=== PATIENT | female | born 1955 | race Caucasian/White ===

== ENCOUNTER 2023-05-23 19:33 | Observation (INO) | payer OTHER, SELFPAY ==
[2023-05-23] VITALS (11 sets, daily range): BP systolic 108–139; BP diastolic 58–83; PULSE 81–127; RESP 16–24; TEMP 36.6–36.7; O2SAT 93–96; BMI 35.0; BMI 35.1
--- NOTE | 2023-05-23 19:42 | XR_ITS ---
[address] [address] Patient Name: CONNIE WISE MRN: [id number] date: 1955 Sex: F Assigned Patient Location: ED.MAIN Current Patient Location: ER Accession/Order Number: [id number] Exam Date: 05/23/2023 19:45 Report Date: 05/23/2023 20:22 At the request of: JAGUAR ABARCA Procedure: XR chest 1V EXAMINATION: XR chest 1V, , 05/23/2023 7:45 PM EDT INDICATION: rapid atrial fibrillation HISTORY: Ordering Provider Reason for Exam: rapid atrial fibrillation Technologist Note: Additional: COMPARISON: None. TECHNIQUE: Chest x-ray: One view. FINDINGS: No pneumothorax, pleural effusion or focal airspace consolidation. Heart is normal in size. Bony thorax is unremarkable. IMPRESSION: No acute cardiopulmonary process. Electronically authenticated by: DOMINGO NAIR Date: 05/23/2023 20:22
--- NOTE | 2023-05-23 19:42 | ECG_ITS ---
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
--- NOTE | 2023-05-23 19:52 | ED.ARRPALP1 ---
HPI - Arrhythmia/Palpitations General Chief Complaint: Arrhythmia/Palpitations Stated Complaint: CHEST PAIN Time Seen by Provider: 05/23/23 19:42 Source: patient Mode of arrival: walk-in Limitations: no limitations History of Present Illness HPI narrative: patient developed sweating, fast heart rate and fluttering sensation in her chest this evening just after eating dinner. She denied any dizziness or near syncope. No chest pressure or tightness. No shortness of breath. No prior history of diagnosed atrial fibrillation but she said that Dr Valencia told her that she might have been in AFib after she got palpitations after drinking coffee about a year ago. They had resolved and she had a normal EKG by the time he saw her in the office. She denied any vomiting, diarrhea, fluid loss, alcohol use but she did admit to having what she thought was caffeinated coffee despite asking for decaf this morning with breakfast. Related Data Home Medications Medication Instructions Recorded Confirmed metformin 500 mg tablet 500 mg PO BID 05/23/23 05/23/23 pantoprazole 40 mg tablet,delayed 40 mg PO DAILY PRN stomach upset 05/23/23 05/23/23 release ramipril 10 mg capsule 10 mg PO DAILY 05/23/23 05/23/23 semaglutide 0.25 mg or 0.5 mg (2 0.25 mg subcut .weekly 05/23/23 05/23/23 mg/1.5 mL) subcutaneous pen injector (Ozempic) simvastatin 20 mg tablet 20 mg PO DAILY 05/23/23 05/23/23 venlafaxine 75 mg capsule,extended 75 mg PO DAILY 05/23/23 05/23/23 release 24 hr Allergies Allergy/AdvReac Type Severity Reaction Status Date / Time Sulfa (Sulfonamide AdvReac Mild Verified 05/23/23 19:48 Antibiotics) [facility], [facility] Social History Smoking status: Never smoker Exam Narrative Exam Narrative: Nurses notes and vital signs reviewed and patient is not hypoxic. afebrile General: Well-appearing and in no apparent distress. Skin: Warm, dry, no pallor noted. Head: Normocephalic, atraumatic. Eye: Pupils are equal, round and EOMI. No scleral icterus. Ears, Nose, Mouth, and Throat: Oral mucosa is moist Cardiovascular: Rapid and irregular pulse without murmur, gallop or rub. Respiratory: No accessory muscle use or respiratory distress. Lungs are clear to auscultation, no wheezing, rales or rhonchi Musculoskeletal: normal ROM, no calf or popliteal tenderness, no lower extremity edema/swelling GI: Abdomen is soft, non-distended. Normal bowel sounds. No tenderness to palpation. No rebound, guarding, or rigidity noted. Neurological: A&O x4. No cranial nerve dysfunction observed. No truncal ataxia. Moves all extremities. Sensation intact. Psychiatric: Cooperative and interactive. Normal mood and affect. Constitutional Vital Signs - 24 hr 05/23/23 19:39 Temperature 97.9 F Pulse Rate [Monitor] 127 H Respiratory Rate 16 Blood Pressure [Right Arm] 139/83 H Pulse Oximetry 96 Oxygen Delivery Method Room Air Course Vital Signs Vital signs: Vital Signs Temperature 97.9 F 05/23/23 19:39 Pulse Rate 127 H 05/23/23 19:39 Respiratory Rate 16 05/23/23 19:39 Blood Pressure 139/83 H 05/23/23 19:39 Pulse Oximetry 96 05/23/23 19:39 Oxygen Delivery Method Room Air 05/23/23 19:39 Temperature 97.9 F 05/23/23 19:39 Pulse Rate 127 H 05/23/23 19:39 Respiratory Rate 16 05/23/23 19:39 Blood Pressure 139/83 H 05/23/23 19:39 Pulse Oximetry 96 05/23/23 19:39 Oxygen Delivery Method Room Air 05/23/23 19:39 MDM - Arrhythmia/Palpitations MDM Narrative Medical decision making narrative: Patient was placed on cardiac care unit nurse and EKG obtained. Blood drawn and sent for evaluation. patient found to be in rapid atrial fibrillation - this is new onset for her. She was ordered to receive IV Cardizem dose of 20 mg. Chest x-ray ordered. after receiving IV Cardizem, her rate slowed. Repeat EKG shows rate-controlled atrial fibrillation at 92 bpm with some nonspecific T-wave changes but no ST elevation or deep ischemic changes. CBC normal. BMP unremarkable. Troponin negative, BNP elevated at 1287. Patient ordered to receive SQ Lovenox. The plan is for the patient to be admitted to the hospital to med/surgical floor with telemetry for further monitoring and testing. She will either go to the floor with telemetry if she is rate controlled or to the ICU on a drip if we cannot control her rate in the emergency department. Inpatient admission for new onset Atrial Fibrillation. Call placed to discuss admission with the microarray operations vice president Telehospitalist, Dr Whyte. He agreed to have the patient admitted to Dr Valencia's service. Lab Data Attestation: I reviewed the patient's lab results. Labs: Lab Results 05/23/23 05/23/23 Range/Units 18:45 18:48 WBC 8.3 (4.0-11.0) 10^3/uL RBC 4.72 (4.20-5.40) 10^6/uL Hgb 13.3 (12.0-16.0) g/dL Hct 41.5 (36.0-48.0) % MCV 87.9 (81.0-99.0) fL MCH 28.2 (26.7-34.0) pg MCHC 32.0 (29.9-35.2) g/dL RDW 14.8 (11.0-15.0) % Plt Count 192 (150-450) 10^3/uL MPV 10.4 (9.5-13.5) fL Neut % (Auto) 59.8 (43.0-75.0) % Lymph % (Auto) 29.5 (20.5-60.0) % [place] % (Auto) 8.1 (1.7-12.0) % Eos % (Auto) 1.7 (0.9-7.0) % Baso % (Auto) 0.4 (0.2-2.0) % Neut # (Auto) 4.9 (1.4-6.5) 10^3/uL Lymph # (Auto) 2.4 (1.2-3.8) 10^3/uL [place] # (Auto) 0.7 (0.3-0.8) 10^3/uL Eos # (Auto) 0.1 (0.0-0.7) 10^3/uL Baso # (Auto) 0.0 (0.0-0.1) 10^3/uL Abs Immat Gran (auto) 0.04 H (0.00-0.03) 10^3/uL Imm/Tot Granulo (auto) 0.5 (0.0-0.5) % PT 10.7 (9.0-11.6) sec INR 1.01 APTT 29.9 (22.3-36.2) sec Sodium 141 (136-145) mmol/L Potassium 3.7 (3.5-5.1) mmol/L Chloride 105 (98-107) mmol/L Carbon Dioxide 24.8 (21.0-32.0) mmol/L Anion Gap 14.9 BUN 26.0 H (7.0-18.0) mg/dL Creatinine 1.00 (0.55-1.02) mg/dL Est GFR ( Amer) >60 (>=60) Est GFR (Non-Af Amer) 55 L (>=60) BUN/Creatinine Ratio 26.0 Glucose 298 H (74-106) mg/dL Calcium 9.7 (8.5-10.1) mg/dL Troponin I High Sens 11.2 (4.0-51.3) pg/mL NT-Pro-B Natriuret Pep 1287.0 H* (<=900.0) pg/mL Imaging Data Chest x-ray: Radiologist's impression: Patient Name: CONNIE WISE MRN: [id number] date: 1955 Sex: F Assigned Patient Location: ED.MAIN Current Patient Location: ER Accession/Order Number: [id number] Exam Date: 05/23/2023 19:45 Report Date: 05/23/2023 20:22 At the request of: JAGUAR ABARCA Procedure: XR chest 1V EXAMINATION: XR chest 1V, , 05/23/2023 7:45 PM EDT INDICATION: rapid atrial fibrillation HISTORY: Ordering Provider Reason for Exam: rapid atrial fibrillation Technologist Note: Additional: COMPARISON: None. TECHNIQUE: Chest x-ray: One view. FINDINGS: No pneumothorax, pleural effusion or focal airspace consolidation. Heart is normal in size. Bony thorax is unremarkable. IMPRESSION: No acute cardiopulmonary process. Electronically authenticated by: DOMINGO NAIR Date: 05/23/2023 20:22 ECG Data Interpretation: EKG #1 interpretation: Emergency Department physician interpretation. rapid atrial fibrillation at 138bpm. Non-specific ST changes without ST segment elevation or deep depression. EKG #2 post-cardizem interpretation: Emergency Department physician interpretation. rate controlled atrial fibrillation at 92bpm. Normal axis, Non-specific ST changes without ST segment elevation or deep depression. Critical Care Time Critical Care Time Critical Care Time: Yes Total Critical Care Time: 45 Attestation: no attestation needed Discharge Plan Discharge Chief Complaint: Arrhythmia/Palpitations Clinical Impression: Atrial fibrillation, new onset, Atrial fibrillation with rapid ventricular response Patient Disposition: Admitted As Inpatient Time of Disposition Decision: 20:01
[2023-05-23 19:56] LABS: Basophils Percent Auto 0.4 % (0.2-2.0); Eosinophils Absolute Auto 0.1 10^3/uL (0.0-0.7); Eosinophils Percent Auto 1.7 % (0.9-7.0); Hematocrit 41.5 % (36.0-48.0); Hemoglobin 13.3 g/dL (12.0-16.0); Immature Granulocytes Abs Auto 0.04 10^3/uL (0.00-0.03); Immature Granulocytes Pct Auto 0.5 % (0.0-0.5); Lymphocytes Absolute Auto 2.4 10^3/uL (1.2-3.8); Lymphocytes Percent Auto 29.5 % (20.5-60.0); Mean Corpuscular Hemoglobin 28.2 pg (26.7-34.0); Mean Corpuscular Volume 87.9 fL (81.0-99.0); Mean Platelet Volume 10.4 fL (9.5-13.5); Monocytes Absolute Auto 0.7 10^3/uL (0.3-0.8); Monocytes Percent Auto 8.1 % (1.7-12.0); Neutrophils Absolute Auto 4.9 10^3/uL (1.4-6.5); Neutrophils Percent Auto 59.8 % (43.0-75.0); Platelet Count 192 10^3/uL (150-450); Red Blood Count 4.72 10^6/uL (4.20-5.40); Red Cell Distribution Width 14.8 % (11.0-15.0); White Blood Count 8.3 10^3/uL (4.0-11.0)
[2023-05-23] MEDS: 0.9 % SODIUM CHLORIDE 1,000 ML 1000 ML (20:00)
[2023-05-23] MEDS: DILTIAZEM HCL 25 MG/5 ML VIAL 20 MG IV (20:00)
[2023-05-23 20:12] LABS: INR 1.01; Partial Thromboplastin Time 29.9 sec (22.3-36.2); Prothrombin Time 10.7 sec (9.0-11.6)
[2023-05-23 20:20] LABS: Anion Gap 14.9; Calcium 9.7 mg/dL (8.5-10.1); Carbon Dioxide 24.8 mmol/L (21.0-32.0); Chloride 105 mmol/L (98-107); Estimated GFR (African America >60 (>=60); Estimated GFR (Non-African Ame 55 (>=60); Glucose 298 mg/dL (74-106); Potassium 3.7 mmol/L (3.5-5.1); Sodium 141 mmol/L (136-145); Troponin I High Sensitivity 11.2 pg/mL (4.0-51.3)
--- NOTE | 2023-05-23 20:23 | ECG_ITS ---
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
[2023-05-23] MEDS: ENOXAPARIN SODIUM 100 MG/ML SYRINGE 98.43 MG SUBQ (21:02)
[2023-05-24] VITALS (18 sets, daily range): BP systolic 99–116; BP diastolic 54–66; PULSE 58–96; RESP 14–18; TEMP 36.6–36.9; O2SAT 90–97; BMI 35.1
--- NOTE | 2023-05-24 00:57 | CA_ITS ---
Patient: CONNIE WISE Exam Date: 05/25/2023 : 1955 Gender:F Ordering : DR Harry Valencia . Admission #: [id number] Family : Order #: [id number] CLICK HERE TO VIEW EXAM ECHOCARDIOGRAM REPORT PROCEDURE: CA ECHO DOPPLER COMPLETE INDICATIONS: AFIb COMPARISON: None. DESCRIPTION: COMPLETE ECHOCARDIOGRAM Real-time transthoracic echocardiography with 2D, M-mode, spectral and color flow Doppler performed. QUALITY: Technical quality was good. LEFT VENTRICLE: Normal chamber size. Borderline left ventricular hypertrophy. LV EF: Global left ventricular systolic function is normal. Visual estimation of left ventricular ejection fraction is 65% DIASTOLIC: Diastolic function is indeterminate. ATRIAL SEPTUM: Inadequately seen. LEFT ATRIUM: Severe dilatation. RIGHT ATRIUM: Mild dilatation. RIGHT VENTRICLE: Normal chamber size. Normal right ventricular systolic function. TRICUSPID VALVE: Normal mobility and thickness. No stenosis with mild regurgitation. Mild pulmonary hypertension. RVSP 39mmHg MITRAL VALVE: Normal mobility and thickness. No evidence of mitral valve stenosis. There is no mitral annular calcification. Mild to moderate mitral regurgitation. AORTIC VALVE: Normal trileaflet appearance. Mildly calcified aortic valve. Normal leaflet mobility. No evidence of aortic valve stenosis. Mild aortic regurgitation. AORTIC ROOT: Normal diameter and appearance. PULMONIC VALVE: Normal thickness and mobility. No stenosis. Trivial regurgitation. PERICARDIUM: No evidence of pericardial effusion. IVC: Collapses with inspirations. Normal size. CONCLUSION: 1. Global left ventricular systolic function is normal; visually estimated ejection fraction is 60 to 65% 2. Borderline left ventricular hypertrophy 3. Diastolic function is indeterminant 4. The right ventricle is normal in size and systolic function 5. Biatrial enlargement 6. Mild tricuspid regurgitation 7. Mildly elevated right ventricular systolic pressure; RVSP 39 mmHg 8. Mild to moderate mitral regurgitation 9. Mild aortic valve regurgitation Adult Echocardiography Procedure Report Left Ventricle LVEDD (3.7 - 5.6 cm): 4.33 cm LVESD (2.2 - 4.0 cm): 2.86 cm LVIVS thickness (0.6 - 1.2 cm): 1.24 cm LVPW thickness (0.5 - 1.0 cm): 0.94 cm e': 0.10 m/s E - e': 11.40 LVOT Max Gradient: 4.06 mm[Hg] LVOT Area (cm2): 1.01 m/s Peak Velocity (LVOT): 1.01 m/s Mean Velocity (LVOT): 0.70 m/s LVOT Diameter 2.12 cm Left Ventricular Ejection Fraction: 72.03 % Left Atrium LA Volume Index (2D A2C): 53.54 ml/m2 Left Atrium Systolic Dimension: 3.98 cm Mitral Valve MV E to A Ratio: 1.43 Mitral Valve A-Wave Peak Velocity: 0.81 m/s Mitral Valve E-Wave Peak Velocity: 1.15 m/s Right Ventricle RV Internal Diastolic Dimension: 2.98 cm Aorta AO Root Diam: 3.57 cm Ascending Ao Diam: 3.01 cm Aortic Valve AoV Area (Peak Darryl): 2.31 cm2, 2.31 cm2 AoV Area (VTI): 2.51 cm2, 2.51 cm2 Deceleration [place]: 1.30 m/s2 Pressure Half-Time: 669.57 ms Peak Velocity(Antegrade Flow): 1.54 m/s Peak Gradient(Antegrade Flow): 9.47 mm[Hg] Mean Velocity(Antegrade Flow): 1.02 m/s Mean Gradient(Antegrade Flow): 4.81 mm[Hg] Velocity Time Integral: 35.80 cm Tricuspid Valve Peak Velocity (Regurgitant Flow): 2.49 m/s, 2.53 m/s, 2.96 m/s Pulmonic Valve Peak Velocity: 0.87 m/s Peak Gradient: 2.55 mm[Hg], 3.59 mm[Hg] Right Atrium Right Atrium Systolic Pressure: 68.45 ml, 68.45 ml Dictated by: Monique Blair M.D. on 05/26/2023 at 12:57 Approved by: Monique Blair M.D. on 05/26/2023 at 13:00
--- NOTE | 2023-05-24 01:03 | P.PN_ITS ---
Progress Note: Subjective Subjective Interval history: CC: Palpitations HPI: This is a 67 years old female who presents with above complaints. Patient's past medical history significant for diabetes, dyslipidemia, hypertension. Patient reports of ongoing feeling of palpitations, usually related to consumption of caffeinated drinks. She has been feeling palpitations since yesterday. On presentation to emergency room patient found to be in atrial fibrillation with rapid ventricular response. She received IV dose of diltiazem with appropriate rate control. Does not feel any palpitations at present. Patient denies any chest pain or dyspnea on exertion. Exam Narrative Exam Narrative: Physical Exam: Not in distress, pleasant, lucid, cooperative, Head - atraumatic, eyes - pupils equal, round, reactive to light, extra ocular movement intact, MMM Neck - supple, thyroid not enlarged, LN not palpated Lungs - clear to auscultation, no dullness on percussion CVS - heart sounds S1, S2, no additional murmurs gallop, irregularly irregular rate and rhythm, tachycardia Gastrointestinal?abdomen is soft, non-tender, non-distended, no organomegaly, positive bowel sounds Extremities no clubbing, cyanosis or edema Neurological?cranial nerve II?XII grossly intact, no meningeal signs, no cerebellar signs, no sensory deficit Musculoskeletal - joints, no effusions, ROM preserved Dermatological - the skin dry, warm, no rashes Psychiatric?patient is AAO X3, patient has normal affect Constitutional Vital Signs - 24 hr 05/23/23 19:39 05/23/23 19:40 05/23/23 20:00 Temperature 97.9 F Pulse Rate 100 H 91 H Pulse Rate [Monitor] 127 H Respiratory Rate 16 22 18 Blood Pressure 139/83 H 113/58 L Blood Pressure [Left Arm] Blood Pressure [Right Arm] 139/83 H Pulse Oximetry 96 94 L 93 L Oxygen Delivery Method Room Air 05/23/23 20:15 05/23/23 20:31 05/23/23 20:31 Temperature Pulse Rate 87 81 Pulse Rate [Monitor] Respiratory Rate 24 20 Blood Pressure 108/63 139/60 H 139/60 H Blood Pressure [Left Arm] Blood Pressure [Right Arm] Pulse Oximetry 95 94 L Oxygen Delivery Method 05/23/23 20:49 05/23/23 20:50 05/23/23 21:00 Temperature Pulse Rate 102 H 87 Pulse Rate [Monitor] Respiratory Rate 16 24 Blood Pressure 137/73 H Blood Pressure [Left Arm] Blood Pressure [Right Arm] Pulse Oximetry 96 96 Oxygen Delivery Method 05/23/23 21:00 05/23/23 21:10 05/23/23 21:34 Temperature 98.1 F Pulse Rate 86 81 88 Pulse Rate [Monitor] Respiratory Rate 19 21 Blood Pressure Blood Pressure [Left Arm] 118/72 Blood Pressure [Right Arm] Pulse Oximetry 96 95 Oxygen Delivery Method Room Air 05/23/23 22:00 05/23/23 21:34 05/23/23 21:34 Temperature 98.1 F 98.1 F Pulse Rate 88 88 Pulse Rate [Monitor] Respiratory Rate 20 20 18 Blood Pressure Blood Pressure [Left Arm] 118/72 118/72 Blood Pressure [Right Arm] Pulse Oximetry 95 95 95 Oxygen Delivery Method Room Air Room Air Room Air 05/23/23 21:34 Temperature Pulse Rate Pulse Rate [Monitor] Respiratory Rate 18 Blood Pressure Blood Pressure [Left Arm] Blood Pressure [Right Arm] Pulse Oximetry Oxygen Delivery Method Progress Note: Objective Labs Labs: Short CBC 05/23/23 Range/Units 18:45 WBC 8.3 (4.0-11.0) 10^3/uL Hgb 13.3 (12.0-16.0) g/dL Hct 41.5 (36.0-48.0) % Plt Count 192 (150-450) 10^3/uL BMP 05/23/23 18:48 Sodium 141 Potassium 3.7 Chloride 105 Carbon Dioxide 24.8 BUN 26.0 H Creatinine 1.00 Glucose 298 H Calcium 9.7 Progress Note: A&P Assessment and Plan (1) Atrial fibrillation with rapid ventricular response: Assessment and Plan: Patient remains hemodynamically stable Monitor on telemetry Continue with calcium CHANNEL blockers or beta-blockers Started on full dose of low molecular weight heparin Echocardiogram ordered Serial cardiac enzymes ordered to rule out acute coronary event TSH ordered Cardiology consult in the morning Patient advised to avoid use of caffeinated drinks (2) Diabetes: Assessment and Plan: DM- continue with ADA diet - hold off oral hypoglycemic agents while in the hospital to avoid hypoglycemic episodes - frequent accuchecks (TID AC + HS) - will provide coverage with long acting insulin as well as short acting insulin with meals - adjust as needed - hypoglycemia protocol in place (3) Hypertension: Assessment and Plan: Blood pressure appears to be well controlled. Resume home regiment (4) Dyslipidemia: Assessment and Plan: Very fine continue home dose of statin Telemedicine Attestation Telemedicine Attestation I conducted this encounter from [place][] via secure live, [id number] video conference with the patient, located at [facility] with [atrial fibrillation with rapid ventricular response]. Prior to the interview, the risks and benefits of telemedicine were discussed with the patient and verbal consent was obtained. As the provider for the telehealth service, I attest that I introduced myself to the patient, provided my credentials, disclosed by location and determined that based on a review of the patient's chart and discussion with members of the patient's treatment team, telemedicine via real-time, 2 way, and interactive audio and video platform is an appropriate and effective means of providing the service. ?The patient and I mutually agree this visit is appropriate for telemedicine. ?[place] ?The encounter took approximately 35 minutes. ?The nurse was present during the entire time and I was able to move the stethoscope in appropriate directions. ?The patient was evaluated at the Hospital ? Portions of this note may be dictated using [employer] voice recognition software. Variances in spelling and vocabulary are possible and unintentional. Not all errors may be caught and/or corrected. Please notify the author if any discrepancies are noted and/or if the meaning of any statement is unclear.? ? Patient verbally consented for treatment via video visit with patient currently located at [facility] and provider located in [place].
[2023-05-24 01:49] LABS: Troponin I High Sensitivity 10.7 pg/mL (4.0-51.3)
[2023-05-24 02:16] LABS: Glucometer 281 mg/dL (74-106)
[2023-05-24] MEDS: INSULIN DETEMIR 300 UNIT/3 ML INSULN.PEN SUBQ (02:20)
[2023-05-24 02:27] LABS: Magnesium 1.4 mg/dL (1.8-2.4); Phosphorus 3.1 mg/dL (2.6-4.7); Thyroid Stimulating Hormone 3.299 uIU/mL (0.358-3.740)
[2023-05-24 05:15] LABS: Troponin I High Sensitivity 9.4 pg/mL (4.0-51.3)
[2023-05-24 07:30] LABS: Troponin I High Sensitivity 10.1 pg/mL (4.0-51.3)
[2023-05-24] MEDS: APIXABAN 5 MG TABLET PO ×2 (08:32→22:10)
[2023-05-24] MEDS: LISINOPRIL 20 MG TABLET 40 MG PO (08:33)
[2023-05-24] MEDS: ASPIRIN 81 MG TAB.CHEW PO (08:33)
[2023-05-24] MEDS: METFORMIN HCL 500 MG TABLET PO ×2 (08:33→16:09)
[2023-05-24] MEDS: ATORVASTATIN CALCIUM 10 MG TABLET PO (08:33)
[2023-05-24] MEDS: VENLAFAXINE HCL ER 75 MG CAPSULE PO (08:34)
[2023-05-24] MEDS: METOPROLOL TARTRATE 25 MG TABLET 50 MG PO ×2 (08:34→22:09)
[2023-05-24] MEDS: OMEPRAZOLE 40 MG CAPSULE.DR PO (08:35)
[2023-05-24] MEDS: LACTATED RINGER'S SOLUTION 1,000 ML 75 ML IV ×2 (09:17→22:09)
[2023-05-24] MEDS: CANAGLIFLOZIN 100 MG TABLET PO (09:17)
--- NOTE | 2023-05-24 11:13 | P.HP_ITS ---
H&P: HPI History of Present Illness Chief complaint: CHEST PAIN New ONSET A-FIB Narrative: Pt presente to thye ER with some BERRY - no chest pain - but sig palitations - has had in the past - did have some caffeine with first episode - thought decaf today but now not sure. In er iwth A-fib RVR - given cardizem with improved rate control, transferred to med surg Pt also states started having some diarhea - about 13 episode - started prior to admission Review of Systems ROS Constitutional Denies: fever or chills Cardiovascular Reports: palpitations; Denies: chest pain, edema or swelling of feet/ankles Respiratory Reports: shortness of breath Neurological Denies: headache Psychiatric Denies: anxiety Endocrine Denies: excessive urination Hematologic/Lymphatic Denies: easy bruising PFSH PFSH Medical History (Updated 05/24/23 @ 17:14 by Harry Valencia MD) Surgical History (Updated 05/23/23 @ 23:36 by Jef Montanez) Family History (Updated 05/23/23 @ 23:40 by Jef Montanez) Grandmother Family history of cancer Father Family history of diabetes mellitus Grandfather Family history of cancer Social History (Updated 05/23/23 @ 23:58 by Jef Montanez) Within the past year, how often did you have a drink containing alcohol: monthly or less Within the past year, how often did you have six or more drinks on one occasion: never Smoking status: Never smoker Non-prescribed substance use: denies use 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 Highest level of school completed/degree received: Bachelor's degree Do you want help with school or training: No Are you now , , , , never or living with a partner: never In a typical week, how many times do you talk on the telephone with family, friends, or neighbors: 3 or more times per week How often do you get together with friends or relatives: once per week How often do you attend alevism or scientology services: 4 or more times per year Do you belong to any clubs or organizations such as alevism groups unions, fraternal or athletic groups, or school groups: yes Total score: 3 Score interpretation: A score of greater than or equal to 2 indicates the lowest level of social isolation. Little interest or pleasure in doing things: not at all Feeling down, depressed, or hopeless: not at all Feel stressed/tense/nervous/anxious/difficulty sleeping: not at all Life stressors: recent of family or friend Due to disability, difficulty making decisions: No Meds Home Medications and Allergies Home Medications Medication Instructions Recorded Confirmed Type metformin 500 mg tablet 500 mg PO BID 05/23/23 05/23/23 History pantoprazole 40 mg tablet,delayed 40 mg PO DAILY PRN stomach upset 05/23/23 05/23/23 History release ramipril 10 mg capsule 10 mg PO DAILY 05/23/23 05/23/23 History semaglutide 0.25 mg or 0.5 mg (2 0.25 mg subcut .weekly 05/23/23 05/23/23 History mg/1.5 mL) subcutaneous pen injector ([employer]) simvastatin 20 mg tablet 20 mg PO DAILY 05/23/23 05/23/23 History venlafaxine 75 mg capsule,extended 75 mg PO DAILY 05/23/23 05/23/23 History release 24 hr Allergies Allergy/AdvReac Type Severity Reaction Status Date / Time Sulfa (Sulfonamide AdvReac Mild Verified 05/23/23 19:48 Antibiotics) Exam Constitutional Vital Signs - 24 hr 05/23/23 19:39 05/23/23 19:40 05/23/23 20:00 Temperature 97.9 F Pulse Rate 100 H 91 H Pulse Rate [Monitor] 127 H Respiratory Rate 16 22 18 Blood Pressure 139/83 H 113/58 L Blood Pressure [Left Arm] Blood Pressure [Right Arm] 139/83 H Pulse Oximetry 96 94 L 93 L Oxygen Delivery Method Room Air 05/23/23 20:15 05/23/23 20:31 05/23/23 20:31 Temperature Pulse Rate 87 81 Pulse Rate [Monitor] Respiratory Rate 24 20 Blood Pressure 108/63 139/60 H 139/60 H Blood Pressure [Left Arm] Blood Pressure [Right Arm] Pulse Oximetry 95 94 L Oxygen Delivery Method 05/23/23 20:49 05/23/23 20:50 05/23/23 21:00 Temperature Pulse Rate 102 H 87 Pulse Rate [Monitor] Respiratory Rate 16 24 Blood Pressure 137/73 H Blood Pressure [Left Arm] Blood Pressure [Right Arm] Pulse Oximetry 96 96 Oxygen Delivery Method 05/23/23 21:00 05/23/23 21:10 05/23/23 21:34 Temperature 98.1 F Pulse Rate 86 81 88 Pulse Rate [Monitor] Respiratory Rate 19 21 Blood Pressure Blood Pressure [Left Arm] 118/72 Blood Pressure [Right Arm] Pulse Oximetry 96 95 Oxygen Delivery Method Room Air 05/23/23 22:00 05/23/23 21:34 05/23/23 21:34 Temperature 98.1 F 98.1 F Pulse Rate 88 88 Pulse Rate [Monitor] Respiratory Rate 20 20 18 Blood Pressure Blood Pressure [Left Arm] 118/72 118/72 Blood Pressure [Right Arm] Pulse Oximetry 95 95 95 Oxygen Delivery Method Room Air Room Air Room Air 05/23/23 21:34 05/24/23 01:05 05/24/23 01:54 Temperature Pulse Rate 96 H 81 Pulse Rate [Monitor] Respiratory Rate 18 Blood Pressure Blood Pressure [Left Arm] Blood Pressure [Right Arm] Pulse Oximetry Oxygen Delivery Method 05/24/23 03:54 05/24/23 04:48 05/24/23 05:57 Temperature 98.4 F Pulse Rate 79 79 77 Pulse Rate [Monitor] Respiratory Rate 18 Blood Pressure Blood Pressure [Left Arm] 116/65 Blood Pressure [Right Arm] Pulse Oximetry 90 L Oxygen Delivery Method Room Air 05/24/23 07:58 05/24/23 09:56 Temperature Pulse Rate 78 61 Pulse Rate [Monitor] Respiratory Rate Blood Pressure Blood Pressure [Left Arm] Blood Pressure [Right Arm] Pulse Oximetry Oxygen Delivery Method Documenting provider has reviewed patient's vital signs: yes Common normals: no apparent distress Exam limitations: no altered mental status and no behavioral limitations General appearance: cooperative and comfortable Nutritional appearance: overweight HENKS Common normals: normocephalic Chest Common normals: inspection of chest normal Respiratory Common normals: normal respiratory effort, no retractions and no use of accessory muscles Cardio Common normals: no JVD; irregular rate and irregular rhythm Rate: tachycardic Rhythm: abnormal rhythm GI Common normals: Normal to inspection, nondistended, normoactive bowel sounds present Results Labs Labs: Short CBC 05/23/23 Range/Units 18:45 WBC 8.3 (4.0-11.0) 10^3/uL Hgb 13.3 (12.0-16.0) g/dL Hct 41.5 (36.0-48.0) % Plt Count 192 (150-450) 10^3/uL BMP 05/23/23 18:48 Sodium 141 Potassium 3.7 Chloride 105 Carbon Dioxide 24.8 BUN 26.0 H Creatinine 1.00 Glucose 298 H Calcium 9.7 Assessment and Plan Assessment and Plan (1) Atrial fibrillation with rapid ventricular response: (2) Diabetes: (3) Hypertension: (4) Dyslipidemia: (5) Atrial fibrillation, new onset: (6) C. difficile colitis: Plan Tachycardia, Elevated BNP, berry secondary to a-fib wtih RVR - echo pending - start eliquiis, double up the metoprolol for rate control, consult to cardiology Acute diarrhea secondary to c-diff likly complicating the above based on flujid status - start vanco and IV fluids NIDDM - poor control - add invokana Hypomagnesemia - check levels tomorrow for serial testing Hypertension - see med adjustment above GERD _ on meds - may need iv protonix based on symptoms and now with blood thinner son board Hypercholesterolemai - on meds Depression -on meds - may need adjusted based on syumptoms of fatigue - will monitor Pt is in observation currently - depending on progression of sykptoms thorught the day today - may need to be changed to inpatient status
[2023-05-24 11:34] LABS: Glucometer 222 mg/dL (74-106)
[2023-05-24 11:55] LABS: Adenovirus F 40/41 NOT DETECTED (NOT DETECTE); Astrovirus NOT DETECTED (NOT DETECTE); Campylobacter NOT DETECTED (NOT DETECTE); Cryptosporidium NOT DETECTED (NOT DETECTE); Cyclospora cayetanensis NOT DETECTED (NOT DETECTE); E coli 0157 NOT DETECTED (NOT DETECTE); Entamoeba histolytica NOT DETECTED (NOT DETECTE); Enteroaggregative E.coli NOT DETECTED (NOT DETECTE); Enteropathogenic E.coli NOT DETECTED (NOT DETECTE); Enterotoxigenic E. coli NOT DETECTED (NOT DETECTE); Giardia lamblia NOT DETECTED (NOT DETECTE); Norovirus GI/GII NOT DETECTED (NOT DETECTE); Plesiomonas shigelloides NOT DETECTED (NOT DETECTE); Rotavirus A NOT DETECTED (NOT DETECTE); Salmonella NOT DETECTED (NOT DETECTE); Sapovirus NOT DETECTED (NOT DETECTE); Shiga-like toxin-producing E.C NOT DETECTED (NOT DETECTE); Shigella/Enteroinvasive E.coli NOT DETECTED (NOT DETECTE); Vibrio NOT DETECTED (NOT DETECTE); Vibrio cholerae NOT DETECTED (NOT DETECTE); Yersinia enterocolitica NOT DETECTED (NOT DETECTE)
[2023-05-24] MEDS: INSULIN ASPART 300 UNIT/3 ML PEN SUBQ (12:09)
[2023-05-24] MEDS: HYOSCYAMINE SULFATE 0.125 MG TAB.SUBL SL ×2 (12:13→16:08)
[2023-05-24 13:39] LABS: C. Difficile PCR POSITIVE (NEGATIVE)
[2023-05-24 16:16] LABS: Glucometer 100 mg/dL (74-106)
[2023-05-24] MEDS: VANCOMYCIN HCL 7,500 MG/150 ML BOTTLE 125 MG PO ×2 (17:01→22:51)
[2023-05-24 19:57] LABS: Glucometer 131 mg/dL (74-106)
[2023-05-25] VITALS (10 sets, daily range): BP systolic 106; BP diastolic 66; PULSE 56–69; RESP 18; TEMP 36.8; O2SAT 90–92
[2023-05-25 05:08] LABS: Basophils Percent Auto 0.5 % (0.2-2.0); Eosinophils Absolute Auto 0.2 10^3/uL (0.0-0.7); Eosinophils Percent Auto 3.3 % (0.9-7.0); Hematocrit 38.1 % (36.0-48.0); Hemoglobin 11.9 g/dL (12.0-16.0); Immature Granulocytes Abs Auto 0.02 10^3/uL (0.00-0.03); Immature Granulocytes Pct Auto 0.4 % (0.0-0.5); Lymphocytes Absolute Auto 1.8 10^3/uL (1.2-3.8); Lymphocytes Percent Auto 32.2 % (20.5-60.0); Mean Corpuscular HGB Conc 31.2 g/dL (29.9-35.2); Mean Corpuscular Volume 89.6 fL (81.0-99.0); Mean Platelet Volume 10.7 fL (9.5-13.5); Monocytes Absolute Auto 0.5 10^3/uL (0.3-0.8); Monocytes Percent Auto 8.2 % (1.7-12.0); Neutrophils Absolute Auto 3.1 10^3/uL (1.4-6.5); Neutrophils Percent Auto 55.4 % (43.0-75.0); Platelet Count 178 10^3/uL (150-450); Red Blood Count 4.25 10^6/uL (4.20-5.40); Red Cell Distribution Width 15.1 % (11.0-15.0); White Blood Count 5.5 10^3/uL (4.0-11.0)
[2023-05-25 05:30] LABS: Anion Gap 15.5; Calcium 9.3 mg/dL (8.5-10.1); Carbon Dioxide 23.2 mmol/L (21.0-32.0); Chloride 107 mmol/L (98-107); Estimated GFR (African America >60 (>=60); Estimated GFR (Non-African Ame >60 (>=60); Glucose 176 mg/dL (74-106); Magnesium 1.5 mg/dL (1.8-2.4); Potassium 3.7 mmol/L (3.5-5.1); Sodium 142 mmol/L (136-145)
[2023-05-25] MEDS: VANCOMYCIN HCL 7,500 MG/150 ML BOTTLE 125 MG PO ×2 (05:38→11:50)
[2023-05-25 07:45] LABS: Glucometer 175 mg/dL (74-106)
--- NOTE | 2023-05-25 07:59 | ECG_ITS ---
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
--- NOTE | 2023-05-25 08:01 | P.DS_ITS ---
DS: Providers Provider Date of admission: 05/23/23 21:23 Primary care physician: Harry Valencia MD Consults: 05/24/23 00:56 Consult to Cardiology Routine Consulting Provider: CAROL KING DS: Diagnosis Discharge Diagnosis (1) Atrial fibrillation with rapid ventricular response: (2) Diabetes: (3) Hypertension: (4) Dyslipidemia: (5) Atrial fibrillation, new onset: (6) C. difficile colitis: DS: Summary Hospital Course Hospital Course: Patient presented to the emergency room with palpitations, found to have atrial fibrillation with rapid ventricular response, given 1 dose of Cardizem IV with improved rate control, doubled up her metoprolol to 50 twice daily and she has had stable heart rate since that time, heart rate seems regular this morning, checking ECG. Also patient noted increased diarrhea on admission. This happened just prior to coming in. Stool for C. difficile is positive. Was started on vancomycin yesterday. Checking on echocardiogram later today, if nothing significant on that and cardiology not here today will discharge after echo, cardiology is here today we will have her wait until their evaluation is completed today. Likely discharged home in improving condition. Medications see list. Follow-up with me in the office in 2 to 5 days Status at Discharge Functional status at discharge: independent ambulation Time Spent with Patient Time attestation: Total time spent providing and/or coordinating discharge services: Exam Constitutional Vital Signs - 24 hr 05/24/23 09:56 05/24/23 12:21 05/24/23 12:35 Temperature Pulse Rate 61 59 L Respiratory Rate Blood Pressure [Left Arm] Pulse Oximetry 94 L Oxygen Delivery Method Room Air 05/24/23 13:33 05/24/23 14:16 05/24/23 15:35 Temperature 97.9 F Pulse Rate 65 64 Respiratory Rate 18 Blood Pressure [Left Arm] 99/54 L Pulse Oximetry 93 L 97 Oxygen Delivery Method Room Air Room Air 05/24/23 15:57 05/24/23 18:16 05/24/23 20:00 Temperature Pulse Rate 66 68 Respiratory Rate 14 Blood Pressure [Left Arm] Pulse Oximetry Oxygen Delivery Method 05/24/23 20:00 05/24/23 20:03 05/24/23 21:25 Temperature 98.1 F Pulse Rate 64 58 L Respiratory Rate 18 Blood Pressure [Left Arm] 108/66 Pulse Oximetry 94 L 92 L Oxygen Delivery Method Room Air Room Air 05/24/23 22:00 05/25/23 00:00 05/25/23 02:00 Temperature Pulse Rate 70 69 61 Respiratory Rate Blood Pressure [Left Arm] Pulse Oximetry Oxygen Delivery Method 05/25/23 04:00 05/25/23 04:02 05/25/23 05:50 Temperature 98.3 F Pulse Rate 60 56 L Respiratory Rate 18 Blood Pressure [Left Arm] 106/66 Pulse Oximetry 90 L 92 L Oxygen Delivery Method Room Air Room Air 05/25/23 06:00 Temperature Pulse Rate 62 Respiratory Rate Blood Pressure [Left Arm] Pulse Oximetry Oxygen Delivery Method HENMT Common normals: moist oral mucous membranes Chest Common normals: inspection of chest normal Respiratory Common normals: normal respiratory effort, no retractions and clear to auscultation bilaterally Cardio Common normals: regular rate, regular rhythm, S1 normal heart sound and no murmurs GI Common normals: Normal to inspection, nondistended, normoactive bowel sounds present, soft to palpation and non-tender Neuro Common normals: oriented x3 DS: Data Data Completed and Pending Labs on day of discharge: Labs from last 24 hours 05/25/23 05/25/23 05/24/23 07:44 04:32 19:55 WBC 5.5 RBC 4.25 Hgb 11.9 L Hct 38.1 MCV 89.6 MCH 28.0 MCHC 31.2 RDW 15.1 H Plt Count 178 MPV 10.7 Neut % (Auto) 55.4 Lymph % (Auto) 32.2 [place] % (Auto) 8.2 Eos % (Auto) 3.3 Baso % (Auto) 0.5 Neut # (Auto) 3.1 Lymph # (Auto) 1.8 [place] # (Auto) 0.5 Eos # (Auto) 0.2 Baso # (Auto) 0.0 Abs Immat Gran (auto) 0.02 Imm/Tot Granulo (auto) 0.4 Sodium 142 Potassium 3.7 Chloride 107 Carbon Dioxide 23.2 Anion Gap 15.5 BUN 27.0 H Creatinine 0.75 Est GFR ( Amer) >60 Est GFR (Non-Af Amer) >60 BUN/Creatinine Ratio 36.0 Glucose 176 H Calcium 9.3 Magnesium 1.5 L NT-Pro-B Natriuret Pep Thyroxine (T4) Stl C. cayetanensis PCR Stool Rotavirus (PCR) Stool Adenovirus (PCR) Stool Astrovirus (PCR) Stool Campylobacter PCR Stool Cryptosporidium PCR St Sh/Enteroin Ecoli PCR Stool E.coli 0157 Cult Stl Enterotoxigenic E PCR Stool EPEC (PCR) Stl E. histolytica PCR Stool Giardia Lamblia PCR Stl P. shigelloides PCR Stool Salmonella PCR Stool Sapovirus (PCR) Stl Shiga-like Tx [address] Y.enterocolitica PCR Stl Vibrio cholerae PCR Stl Enteroaggr Ecoli PCR Stl Norovirus GI/GII PCR C. difficile Toxin A&B Vibrio Culture C. difficile Toxin PCR POC Glucose 175 H 131 H 05/24/23 05/24/23 05/24/23 16:15 11:34 07:00 WBC RBC Hgb Hct MCV MCH MCHC RDW Plt Count MPV Neut % (Auto) Lymph % (Auto) [place] % (Auto) Eos % (Auto) Baso % (Auto) Neut # (Auto) Lymph # (Auto) [place] # (Auto) Eos # (Auto) Baso # (Auto) Abs Immat Gran (auto) Imm/Tot Granulo (auto) Sodium Potassium Chloride Carbon Dioxide Anion Gap BUN Creatinine Est GFR ( Amer) Est GFR (Non-Af Amer) BUN/Creatinine Ratio Glucose Calcium Magnesium NT-Pro-B Natriuret Pep 809.0 Thyroxine (T4) 10.40 Stl C. cayetanensis PCR Not detected Stool Rotavirus (PCR) Not detected Stool Adenovirus (PCR) Not detected Stool Astrovirus (PCR) Not detected Stool Campylobacter PCR Not detected Stool Cryptosporidium PCR Not detected St Sh/Enteroin Ecoli PCR Not detected Stool E.coli 0157 Cult Not detected Stl Enterotoxigenic E PCR Not detected Stool EPEC (PCR) Not detected Stl E. histolytica PCR Not detected Stool Giardia Lamblia PCR Not detected Stl P. shigelloides PCR Not detected Stool Salmonella PCR Not detected Stool Sapovirus (PCR) Not detected Stl Shiga-like Tx [address] Y.enterocolitica PCR Not detected Stl Vibrio cholerae PCR Not detected Stl Enteroaggr Ecoli PCR Not detected Stl Norovirus GI/GII PCR Not detected C. difficile Toxin A&B Not detected Vibrio Culture Not detected C. difficile Toxin PCR Positive A* POC Glucose 100 222 H Discharge Plan Discharge Disposition: Home, Self-Care Condition: Fair Discharge Medications: New magnesium oxide 400 mg (241.3 mg magnesium) Tablet 400 mg PO BID Qty: 60 11RF metoprolol tartrate 25 mg Tablet 50 mg PO BID Qty: 60 11RF Eliquis 5 mg Tablet 5 mg PO BID Qty: 60 11RF Invokana 100 mg Tablet 100 mg PO QD Qty: 30 11RF vancomycin 125 mg capsule 125 mg PO Q6H 10 Days Qty: 40 0RF Continued metformin 500 mg tablet 500 mg PO BID pantoprazole 40 mg tablet,delayed release (DR/EC) 40 mg PO DAILY PRN (Reason: stomach upset) ramipril 10 mg capsule 10 mg PO DAILY Ozempic 0.25 mg or 0.5 mg(2 mg/1.5 mL) pen injector 0.25 mg SUBCUT .weekly Patient Comments: Tuesdays simvastatin 20 mg tablet 20 mg PO DAILY venlafaxine 75 mg capsule,extended release 24hr 75 mg PO DAILY Forms: Portal Instructions
[2023-05-25] MEDS: MAGNESIUM OXIDE 400 MG TABLET PO (08:36)
[2023-05-25] MEDS: METFORMIN HCL 500 MG TABLET PO (08:36)
[2023-05-25] MEDS: ATORVASTATIN CALCIUM 10 MG TABLET PO (08:36)
[2023-05-25] MEDS: ASPIRIN 81 MG TAB.CHEW PO (08:36)
[2023-05-25] MEDS: METOPROLOL TARTRATE 25 MG TABLET 50 MG PO (08:36)
[2023-05-25] MEDS: APIXABAN 5 MG TABLET PO (08:36)
[2023-05-25] MEDS: VENLAFAXINE HCL ER 75 MG CAPSULE PO (08:36)
[2023-05-25] MEDS: HYOSCYAMINE SULFATE 0.125 MG TAB.SUBL SL ×2 (08:36→11:50)
[2023-05-25] MEDS: LISINOPRIL 20 MG TABLET 40 MG PO (08:36)
[2023-05-25] MEDS: CANAGLIFLOZIN 100 MG TABLET PO (08:55)
[2023-05-25 11:54] LABS: Glucometer 197 mg/dL (74-106)
--- NOTE | 2023-05-25 13:24 | P.CACN_ITS ---
History of Present Illness History of Present Illness Consult date: 05/25/23 Requesting physician: Harry Valencia Consult reason: atrial fibrillation Chief complaint: CHEST PAIN New ONSET A-FIB Narrative: 67-year-old female with past medical history of hypertension, diabetes, dyslipidemia, palpitations. She states she usually drinks decaf coffee to avoid palpitations and believes she was given caffeinated coffee today. She drank coffee and began experience palpitations and then GI discomfort. She began to have several episodes of diarrhea and her palpitations did not go away and she was experiencing racing heart so she went to the ER. She was found to be in A- fib RVR and found to have C. difficile colitis. She was given Cardizem and converted on her own overnight. She was anticoagulated on Eliquis. At the time of exam she denies chest pain, shortness of breath, LE edema. She did note some lower extremity swelling when she had symptoms of racing heart which have resolved. She is pending echocardiogram results. 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 Highest level of school completed/degree received: Bachelor's degree Do you want help with school or training: No Are you now , , , , never or living with a partner: never In a typical week, how many times do you talk on the telephone with family, friends, or neighbors: 3 or more times per week How often do you get together with friends or relatives: once per week How often do you attend mandaen or adventism services: 4 or more times per year Do you belong to any clubs or organizations such as mandaen groups unions, fraternal or athletic groups, or school groups: yes Total score: 3 Score interpretation: A score of greater than or equal to 2 indicates the lowest level of social isolation. Little interest or pleasure in doing things: not at all Feeling down, depressed, or hopeless: not at all Feel stressed/tense/nervous/anxious/difficulty sleeping: not at all Life stressors: recent of family or friend Due to disability, difficulty making decisions: No Meds Home Medications and Allergies Home Medications Medication Instructions Recorded Confirmed Type metformin 500 mg tablet 500 mg PO QID 05/23/23 05/25/23 History pantoprazole 40 mg tablet,delayed 40 mg PO DAILY PRN stomach upset 05/23/23 05/23/23 History release ramipril 10 mg capsule 10 mg PO DAILY 05/23/23 05/23/23 History semaglutide 0.25 mg or 0.5 mg (2 0.25 mg subcut .weekly 05/23/23 05/23/23 History mg/1.5 mL) subcutaneous pen injector ([employer]) simvastatin 20 mg tablet 20 mg PO DAILY 05/23/23 05/23/23 History venlafaxine 75 mg capsule,extended 75 mg PO DAILY 05/23/23 05/23/23 History release 24 hr apixaban 5 mg tablet (Eliquis) 5 mg PO BID #60 tabs 05/25/23 Rx canagliflozin 100 mg tablet 100 mg PO QD #30 tabs 05/25/23 Rx (Invokana) diclofenac sodium 75 mg 75 mg PO BID 05/25/23 05/25/23 History tablet,delayed release magnesium oxide 400 mg (241.3 mg 400 mg PO BID #60 tabs 05/25/23 Rx magnesium) tablet metoprolol tartrate 25 mg tablet 50 mg PO BID #60 tabs 05/25/23 Rx pioglitazone 30 mg tablet (Actos) 30 mg PO DAILY 05/25/23 05/25/23 History vancomycin 125 mg capsule 125 mg PO Q6H 10 days #40 caps 05/25/23 Rx Allergies Allergy/AdvReac Type Severity Reaction Status Date / Time Sulfa (Sulfonamide AdvReac Mild Verified 05/23/23 19:48 Antibiotics) Exam Constitutional Vital Signs - 24 hr 05/24/23 13:33 05/24/23 14:16 05/24/23 15:35 Temperature 97.9 F Pulse Rate 65 64 Respiratory Rate 18 Blood Pressure [Left Arm] 99/54 L Pulse Oximetry 93 L 97 Oxygen Delivery Method Room Air Room Air 05/24/23 15:57 05/24/23 18:16 05/24/23 20:00 Temperature Pulse Rate 66 68 Respiratory Rate 14 Blood Pressure [Left Arm] Pulse Oximetry Oxygen Delivery Method 05/24/23 20:00 05/24/23 20:03 05/24/23 21:25 Temperature 98.1 F Pulse Rate 64 58 L Respiratory Rate 18 Blood Pressure [Left Arm] 108/66 Pulse Oximetry 94 L 92 L Oxygen Delivery Method Room Air Room Air 05/24/23 22:00 05/25/23 00:00 05/25/23 02:00 Temperature Pulse Rate 70 69 61 Respiratory Rate Blood Pressure [Left Arm] Pulse Oximetry Oxygen Delivery Method 05/25/23 04:00 05/25/23 04:02 05/25/23 05:50 Temperature 98.3 F Pulse Rate 60 56 L Respiratory Rate 18 Blood Pressure [Left Arm] 106/66 Pulse Oximetry 90 L 92 L Oxygen Delivery Method Room Air Room Air 05/25/23 06:00 05/25/23 08:22 05/25/23 10:16 Temperature Pulse Rate 62 69 59 L Respiratory Rate Blood Pressure [Left Arm] Pulse Oximetry Oxygen Delivery Method 05/25/23 12:02 05/25/23 12:07 Temperature Pulse Rate 63 Respiratory Rate Blood Pressure [Left Arm] Pulse Oximetry 92 L Oxygen Delivery Method Room Air Documenting provider has reviewed patient's vital signs: yes Common normals: no apparent distress General appearance: cooperative and comfortable Orientation/consciousness: Yes awake, Yes oriented to person, Yes oriented to place and Yes oriented to time HENHI Common normals: normocephalic and moist oral mucous membranes Head and scalp: normal to inspection Face and sinus: normal facial exam Eye Common normals: PERRL Chest Common normals: inspection of chest normal Respiratory Common normals: normal respiratory effort, no retractions and clear to auscultation bilaterally Cardio Common normals: regular rate, regular rhythm, S1 normal heart sound and no murmurs GI Common normals: Normal to inspection, nondistended, normoactive bowel sounds present, soft to palpation and non-tender Neuro Common normals: oriented x3 Results Labs and Meds Lab results: CBC 05/25/23 Range/Units 04:32 WBC 5.5 (4.0-11.0) 10^3/uL RBC 4.25 (4.20-5.40) 10^6/uL Hgb 11.9 L (12.0-16.0) g/dL Hct 38.1 (36.0-48.0) % Plt Count 178 (150-450) 10^3/uL Neut # (Auto) 3.1 (1.4-6.5) 10^3/uL Lymph # (Auto) 1.8 (1.2-3.8) 10^3/uL [place] # (Auto) 0.5 (0.3-0.8) 10^3/uL Eos # (Auto) 0.2 (0.0-0.7) 10^3/uL Baso # (Auto) 0.0 (0.0-0.1) 10^3/uL Comprehensive Metabolic Panel 05/25/23 Range/Units 04:32 Sodium 142 (136-145) mmol/L Potassium 3.7 (3.5-5.1) mmol/L Chloride 107 (98-107) mmol/L Carbon Dioxide 23.2 (21.0-32.0) mmol/L BUN 27.0 H (7.0-18.0) mg/dL Creatinine 0.75 (0.55-1.02) mg/dL Glucose 176 H (74-106) mg/dL Calcium 9.3 (8.5-10.1) mg/dL Intake and Output 05/24/23 05/25/23 05/25/23 23:59 07:59 15:59 Intake Total 1929 2500 / 2500 Balance 1929 2500 / 2500 Intake: Oral 500 / 500 Other 965 / 965 1000 / 1000 IV 965 / 965 1000 / 1000 Lactated Ringer's Solution 1, 965 / 965 1000 / 1000 000 ml @ 75 mls/hr IV .[id number] [facility] Rx#:[id number] Other: # Voids 3 # Bowel Movements 3 Imaging and Cardiology Echo: pending EKG Interpretation EKG: sinus rhythm Assessment and Plan Assessment and Plan (1) Atrial fibrillation with rapid ventricular response: Assessment and Plan: She is currently in sinus rhythm Continue metoprolol tartrate 50 mg twice daily and Eliquis 5 mg twice daily [id number] at least 4 for age, gender, hypertension, diabetes -If EF normal she can discharge with 2-week follow-up with cardiology clinic to do a 30-day event monitor -There is possibility infection exacerbated A-fib -Otherwise continue metoprolol and Eliquis until follow-up -Plan discussed with Dr. Holder (2) Diabetes: (3) Hypertension: (4) Dyslipidemia: (5) Atrial fibrillation, new onset: (6) C. difficile colitis: Plan Tachycardia, Elevated BNP, patel secondary to a-fib wtih RVR - echo pending - start eliquiis, double up the metoprolol for rate control, consult to cardiology Acute diarrhea secondary to c-diff likly complicating the above based on flujid status - start vanco and IV fluids NIDDM - poor control - add invokana L Hypomagnesemia - check levels tomorrow for serial testing Hypertension - see med adjustment above GERD _ on meds - may need iv protonix based on symptoms and now with blood thinner son board Hypercholesterolemai - on meds Depression -on meds - may need adjusted based on syumptoms of fatigue - will monitor Pt is in observation currently - depending on progression of sykptoms thorught the day today - may need to be changed to inpatient status
--- NOTE | 2023-05-26 15:44 | CM.DCFOLLOWU ---
Person spoke with:patient How are you feeling? very good How is your pain? no pain Did you understand your discharge instructions? yes Do you have any questions about your discharge instructions? no Were you given any prescriptions at discharge? yes Were you able to get your prescriptions filled? yes, but limited to only 3 of the 5, she will address with her PCP tomorrow at follow up appointment Do you understand how to take your medications as ordered? yes Do you have any questions about your follow up appointment and do you plan to keep your follow up appointment? no questions, follow up 05/27/23 Is there anything else that you would like to discuss? no Questions/Comments/Concerns/Other:
== END 2023-05-25 14:25 | disposition home or self-care (01) ==
LOC: ER 20:46 → MS 05-24 00:54
PROVIDERS: Admitting Provider Internal Medicine; Emergency Provider Emergency Medicine; PCP Family Medicine; Visit Provider Family Medicine
DX: I48.91 Unspecified atrial fibrillation (principal); I10 Essential (primary) hypertension; E78.5 Hyperlipidemia, unspecified; K21.9 Gastro-esophageal reflux disease without esophagitis; E78.00 Pure hypercholesterolemia, unspecified; F32.A Depression, unspecified; E11.65 Type 2 diabetes mellitus with hyperglycemia; A04.72 Enterocolitis due to Clostridium difficile, not specified as recurrent; Z79.84 Long term (current) use of oral hypoglycemic drugs; Z79.899 Other long term (current) drug therapy; Z79.85 Long-term (current) use of injectable non-insulin antidiabetic drugs; R79.89 Other specified abnormal findings of blood chemistry; E83.42 Hypomagnesemia
CPT/HCPCS: 36415; 71045; 80048; 82948; 83735; 83880; 84100; 84436; 84443; 84484; 85025; 85610; 85730; 87493; 87507; 93005; 93306; 94667; 94668; 94761; 96372; 96374; 99285; G0378; Q3014

== ENCOUNTER 2023-06-01 15:02 | Outpatient (OUT) | payer OTHER, SELFPAY ==
--- NOTE | 2023-06-01 15:38 | CA_ITS ---
[facility] Test Date: 2023-07-07 Pat Name: Shirley Brian Department: Room: - Gender: Female [employer]: : 1955 Requested By: MARYJANE REYNOLDS Order Number: [id number] Reading MD: NICOLE BURNS Interpretive Statements Predominant rhythm is sinus w/ average rate of 71 bpm Tachycardia - max rate of 145 bpm - longest episode of 37 min Bradycardia - min rate of 51 bpm - longest epdisode 43 min Ventricular ectopy - 4,487 episodes total (<1%) Atrial fibrillation - 2 days 3hr total (7%) - rapid ventricular rate 54% - longest episode 6hr 53min 43sec Patient triggered event: 22 Impression - Predominant rhythm is sinus w/ average rate of 71 bpm - Fastest rate of 145 bpm and slowest rate of 51 bpm - Atrial fibrillation occurring 7% total time w/ 54% associated with rapid ventricular response and longest episode of 53min 43sec - Ventricular ectopy occurring < 1% total - No pauses of blocks Electronically Signed On 07-10-2023 14:18:06 EDT by NICOLE BURNS
== END 2023-06-01 15:03 | disposition home or self-care (01) ==
LOC: CARD 15:02
PROVIDERS: PCP Family Medicine; Visit Provider Family Medicine
DX: I48.91 Unspecified atrial fibrillation (principal)
CPT/HCPCS: 93270

== ENCOUNTER 2023-07-26 08:05 | Outpatient (OUT) | payer OTHER, SELFPAY ==
--- NOTE | 2023-07-26 | PCN_ITS ---
CARDIAC STRESS TEST Requesting Physician:? Procedure Date:? 07/26/2023 This was a Lexiscan stress test with myocardial perfusion imaging, performed at the [facility] on 07/26/2023. Informed consent was obtained.? An intravenous line was secured and the patient was attached to electrocardiographic monitor.? Lexiscan 0.4 mg was infused slowly, followed by administration of Cardiolite.? Electrocardiographic monitoring was performed.? The patient went on to obtain myocardial perfusion images.? Resting heart rate was 62 BPM.? Maximal heart rate was 103 BPM.? Resting blood pressure was 166/86 and maximum blood pressure was 166/86.? Resting ECG showed evidence of sinus rhythm with premature atrial complexes with no ischemic ST changes.? Post Lexiscan infusion, ECG showed evidence of sinus rhythm with occasional PVCs and no ischemic ST changes. SUMMARY OF THE FINDINGS: 1.? No evidence of ischemic ECG changes seen following infusion of Lexiscan. 2.? Resting uncontrolled hypertension. 3.? Myocardial perfusion images will be reported separately. MTDD
--- NOTE | 2023-07-26 | NM_ITS ---
Patient: CONNIE WISE Exam Date: 07/26/2023 : 1955 Gender:F Ordering : JIM LEONARD Admission #: [id number] Family : DR Harry Valencia . Order #: [id number] CLICK HERE TO VIEW EXAM RADIOLOGY REPORT PROCEDURE: NM FIDEL PERF SPECT REST STR COMPARISON: None. INDICATIONS: PAROXYSMAL ATRIAL FIBRILLATION, ABNORMAL EKG TECHNIQUE: Exam Description: Stress/Rest one day protocol gated SPECT Rest Imagin.6 mCi Tc-99m Cardiolite IV on 07/26/2023 Stress Imaging 32.1 mCi Tc-99m Cardiolite IV on 07/26/2023 Exercise Protocol: 0.4 mg Lexiscan given IV Heart Rate (bpm): Rest: 62 Max: 103 PMHR: 66 Blood Pressure: Rest: 166/86 Max: 166/86 Symptoms: Rest and peak stress ECG findings were pending and the exercise portion of the study was pending per attending physician Dr. LOUIS . For more details please see separate cardiac stress test report. FINDINGS: QUALITY OF STUDY: Good. PERFUSION DEFECT: LOCATION: Basal anterior. Basal anteroseptal. Mid-anteroseptal. SIZE: Medium (3-4 segments). SEVERITY: Moderate. TYPE: Persistent. WALL MOTION: Normal. LV SIZE: Normal. 99 mL. TID / TCD: None; 0.9 LVEF: Normal. Calculated EF 72%. SUMMARY: Myocardial perfusion imaging study has ABNORMAL findings. CONCLUSION: 1. No reversible ischemia 2. Fixed defect anterior wall, lad distribution 3. Pending exercise test Dictated by: Darron Mackey MD on 07/27/2023 at 13:27 Approved by: Darron Mackey MD on 07/27/2023 at 13:33
[2023-07-26] MEDS: REGADENOSON 0.4 MG/5 ML SYRINGE IV (10:08)
== END 2023-07-26 08:06 | disposition home or self-care (01) ==
LOC: NM 08:06
PROVIDERS: PCP Family Medicine; Visit Provider Nurse Practitioner
DX: I48.0 Paroxysmal atrial fibrillation (principal); R94.31 Abnormal electrocardiogram [ECG] [EKG]
CPT/HCPCS: 78452; 93017; A9500; J2785

== ENCOUNTER 2023-09-16 06:58 | Outpatient (OUT) | payer OTHER, SELFPAY ==
[2023-09-16 08:33] LABS: Alanine Aminotransferase 28 U/L (14-59); Albumin Globulin Ratio 0.8; Alkaline Phosphatase 95 U/L (46-116); Anion Gap 12.2; Aspartate Amino Transferase 32 U/L (15-37); BUN Creatinine Ratio 22.9; Bilirubin Total 0.9 mg/dL (0.2-1.0); Calcium 8.7 mg/dL (8.5-10.1); Chloride 102 mmol/L (98-107); Chol HDL Ratio 4.6; Cholesterol 146 mg/dL (<=200); Estimated GFR (African America >60 (>=60); Estimated GFR (Non-African Ame >60 (>=60); Globulin 3.9 g/dL; Glucose 243 mg/dL (74-106); HDL Cholesterol 32 mg/dL (40-60); Potassium 4.2 mmol/L (3.5-5.1); Sodium 139 mmol/L (136-145); Total Protein 6.9 g/dL (6.4-8.2); Triglycerides 211 mg/dL (<=150); VLDL CHOLESTEROL 42.2 mg/dL
== END 2023-09-16 06:59 | disposition home or self-care (01) ==
PROVIDERS: PCP Family Medicine; Visit Provider Nurse Practitioner
DX: E78.5 Hyperlipidemia, unspecified (principal)
CPT/HCPCS: 36415; 80053; 80061

== ENCOUNTER 2024-01-06 13:45 | Outpatient (OUT) | payer OTHER, SELFPAY ==
--- NOTE | 2024-01-06 13:52 | XR_ITS ---
The [address] [address] Patient Name: CONNIE WISE MRN: [id number] date: 1955 Sex: F Assigned Patient Location: [facility] Current Patient Location: Accession/Order Number: [id number] Exam Date: 01/06/2024 14:00 Report Date: 01/07/2024 08:13 At the request of: MARYJANE REYNOLDS Procedure: XR ribs LT min 3V w CXR1V EXAMINATION: XR ribs LT min 3V w CXR1V HISTORY: chest wall pain R07.89 ; acute onset lower anterior left rib pain, lump, tenderness; no known injury COMPARISON: No relevant comparison available. FINDINGS: LUNGS: No significant pulmonary parenchymal abnormalities. PLEURA: No pneumothorax, effusion, or pleural thickening. MEDIASTINUM: No visible mass or adenopathy. CARDIAC: No cardiomegaly or cardiac silhouette abnormality. RIBS: Normal. No significant arthropathy or acute abnormality. OTHER: Negative. XR/XR ribs LT min 3V w CXR1V IMPRESSION: 1. Clear lungs. 2. Unremarkable ribs. 3. No suspicious findings to account for patient's symptoms with specific attention to area of skin surface marker localizing the patient's palpable lump. Electronically authenticated by: LON BOLTON Date: 01/07/2024 08:13
--- OUTSIDE RECORDS SUMMARY | 2024-01-06 14:04 | XMS_ITS | CCD ---
Author Name Unknown Address [facility] [address] [place] [address] Organization [facility] Care Team Providers Care Virtual Assistant For Advertisers Name Role Phone Soco Hernandez Unavailable Ashley Cox Unavailable GAIL, DR WESLEY Consulting Unavailable HOY, DR WESLEY Primary Care Unavailable HOY, DR WESLEY Admitting Unavailable HOY, DR WESLEY Attending Unavailable HOY, DR WESLEY Consulting Unavailable CONCHITAY, DR WESLEY Primary Care Unavailable HOY, DR WESLEY Admitting Unavailable HOY, DR WESLEY Attending Unavailable HOY, DR WESLEY Consulting Unavailable HOY, DR WESLEY Primary Care Unavailable HOY, DR WESLEY Admitting Unavailable HOY, DR WESLEY Attending Unavailable ZICECILIO, DR LELAND Lemus Consulting Unavailable JIM MC Attending Unavailable MAGGY ARAIZA Attending Unavailable Allergies Allergy Classification Reported Allergen(s) Allergy Type Date of Onset Reaction(s) Facility (1 source) Sulfacetamide Drug Allergy [facility] Other (1 source) Sulfonamides (Antibiotic) Drug allergy (disorder) 8 [facility] Repository (1 source) Sulfonamides (Antibiotic); Translations: [SULFA (SULFONAMIDE ANTIBIOTICS)] Propensity to adverse reactions to drug (disorder) 9 [facility] Repository Medications Current Medications Medication Drug Class(es) Dates Sig (Normalized) Sig (Original) [id number] 200 actuat albuterol 0.09 mg/actuat metered dose inhaler (1 source) beta2-Adrenergic Agonist Start: 02-16-2022 take 2 puff(s) by inhalation every four to six hours as needed Albuterol Sulfate HFA 108 (90 Base) MCG/ACT 2 puffs as needed Inhalation every 4-6 hours for 14 days Jan, Active Aspir-81 (2 sources) Aspir-81 Active dextromethorphan hydrobromide 1.5 mg/ml / pyrilamine maleate 1.5 mg/ml oral solution (1 source) Uncompetitive G-prwbem-P-aspartate Receptor Antagonist, Sigma-1 Agonist Start: 02-16-2022 take 10 mL by mouth every eight hours Coalgood DM 7.5-7.5 MG/5ML 10 mL Orally every 8 hours for 5 days Jan, Active fluticasone propionate 0.05 mg/actuat metered dose nasal spray (1 source) Corticosteroid Start: 02-16-2022 take 1 spray(s) nasal route once daily Flonase Allergy Relief 50 MCG/ACT 1 spray in each nostril Nasally Once a day for 14 day(s) Jan, Active metFORMIN (3 sources) Biguanide Glucophage 500 MG Orally Not-Taking metFORMIN HCl Ac tive ondansetron 4 mg oral tablet (1 source) Serotonin-3 Receptor Antagonist Start: 02-16-2022 take 1 tablet by mouth every eight hours as needed Ondansetron HCl 4 MG 1 tablet Orally every 8 hours as needed for 3 days Jan, Active Ozempic (1 source) Ozempic Active pioglitazone 30 mg oral tablet (2 sources) Peroxisome Proliferator Receptor alpha Agonist, Peroxisome Proliferator Receptor gamma Agonist, Thiazolidinedione Actos 30 MG Orally Active ramipril 10 mg oral capsule (2 sources) Angiotensin Converting Enzyme Inhibitor Altace 10 MG Orally Active Simvastatin (1 source) HMG-CoA Reductase Inhibitor Simvastatin Active tiZANidine 4 mg oral tablet (2 sources) Central alpha-2 Adrenergic Agonist Zanaflex 4 MG Orally Active 24 hr venlafaxine 75 mg extended release oral capsule (2 sources) Serotonin and Norepinephrine Reuptake Inhibitor Effexor XR 75 MG Orally Active Vitamin D-3 1000 UNIT (2 sources) Vitamin D-3 1000 UNIT Orally Active Completed/Discontinued Medications Medication Drug Class(es) Dates Sig (Normalized) Sig (Original) Acetaminophen / HYDROcodone (2 sources) Opioid Agonist Start: 07-09-2015 take 1 tablet by mouth every six hours as needed for pain [place] 5-325 MG 1 tablet Orally every 6 hrs as needed for pain Jun, Not-Taking Start: 07-09-2015 take 1 tablet by abelino th every six hours as needed for pain [place] 5-325 MG 1 tablet Orally every 6 hrs as needed for pain Jun, Active exenatide (2 sources) GLP-1 Receptor Agonist Byetta 10 MCG Pen Not-Taking Byetta 10 MCG Pe n Active glimepiride 4 mg oral tablet (2 sources) Sulfonylurea Amaryl 4 MG Oral ly Not-Taking Glucosamine 2000 Unit (2 sources) Glucosamine 2000 Unit Not-Taking Glucosamine 2000 Unit Active Ibuprofen (2 sources) Nonsteroidal Anti-inflammatory Drug Motrin 800 mg Not-Taking Motrin 800 mg Ac tive 24 hr tolterodine tartrate 4 mg extended release oral capsule (2 sources) Cholinergic Muscarinic Antagonist Detrol LA 4 MG Orall y Not-Taking Problems Active Problems Problem Classification Problem Date Documented Da te Episodic/Chronic Cardiac dysrhythmias (2 sources) Paroxysmal atrial fibrillation; Translations: [Paroxysmal atrial fibrillation] Onset: 06-21-2023 Chronic Chronic kidney disease (1 source) Chronic kidney disease, unspecified; Translations: [CHRONIC KIDNEY DISEASE UNSPECIFIED] Onset: 09-30-2022 Chronic Deficiency and other anemia (1 source) Anemia, unspecified; Translations: [ANEMIA UNSPECIFIED] Onset: 09-30-2022 Episodic Diabetes mellitus with complications (4 sources) Type 2 diabetes mellitus with hyperglycemia; Translations: [TYPE 2 DM W/HYPERGLYCEMIA] Onset: 09-24-2022 Chronic Disorders of lipid metabolism (2 sources) Pure hypercholesterolem ia, unspecified; Translations: [Hyperlipidemia, unspecified] Onset: 09-30-2022 Chronic Essential hypertension (1 source) Essential (primary) hypertension; Translations: [ESSENTIAL PRIMARY HYPERTENSION] Onset: 09-30-2022 Chronic Nutritional deficiencies (1 source) Vitamin D deficiency, unspecified; Translations: [VITAMIN D DEFICIENCY UNSPECIFIED] Onset: 09-30-2022 Chronic Past or Other Problems Problem Classification Problem Date Documented Date Episodic/Chronic Immunizations and screening for infectious disease (2 sources) Encounter for screening for other viral diseases; Translations: [Contact with and (suspected) exposure to other viral communicable diseases] Onset: 10-26-2021 Resolved: 02-16-2022 Episodic Other screening for suspected conditions (not mental disorders or infectious disease) (6 sources) Encounter for screening mammogram for malignant neoplasm of breast; Translations: [Abnormal electrocardiogram [ECG] [EKG]] Onset: 10-12-2021 Episodic Other upper respiratory infections (1 source) Acute upper respiratory infection, unspecified Onset: 02-16-2022 Resolved: 02-16-2022 Episodic Residual codes; unclassified (1 source) Family history of malignant neoplasm of breast; Translations: [FAMILY HX MALIG NEOPLASM OF BREAST] Onset: 10-21-2021 Episodic Results Test Name Value Interpretation Reference Range Facility Office Visiton 11-08-2023 Follow-up visit [id number] Shirley Brian 1955 Date Provider Department Center 11/08/2023 MAGGY BERNAL [facility] Family History Problem Relation Age of Onset No Known Problems Mother Diabetes Father No Known Problems Sister No Known Problems Brother Family Status - Relation Status Age at Mother Father Sister Brother Level of Service:75661 ME OFFICE/OUTPATIENT NEW MODERATE MDM 45 MINUTES Normal [facility] 36on 08-07-2023 36 Attempted to call, no answer, cannot leave VM as it is full. Stress showed no acute concerns. There was a defect which indicates she may have had an HI in the past. We can proceed with a cath given she has never had one to assess if she would like , otherwise we can also continue to manage medically. Let me know if she has preference, if she wants to do whatever we think, I will order a cath as it is better to know than not. Normal [facility] 36on 08-04-2023 36 Patient calling for stress test results. It is uploaded in media reporter. Please advise. Thank you. Normal [facility] Office Visiton 06-21-2023 Follow-up visit [id number] Shirley Brian 1955 Date Provider Department Center 06/21/2023 JIM CURRY DAISY [place] [facility] Family History Problem Relation Age of Onset No Known Problems Mother Diabetes Father No Known Problems Sister No Known Problems Brother Family Status - Relation Status Age at Mother Father Sister Brother Level of Service:00298 ME OFFICE/OUTPATIENT ESTABLISHED MOD MDM 30-39 MIN Normal [facility] INSULINon 09-25-2022 Insulin 14.1 uIU/mL Normal 2.6-24.9 [facility] Comment on above: Performed By: #### I NSULIN #### [facility] [address] [place], [place] [address] Dr. Becky Josue CBC AUTO DIFFon 09-24-2022 BASO # 0.0 103/ul Normal 0.0-0.1 [facility] Comment on above: Performed By: #### C BC ####[facility] [address] [place] [id number] Josue Basophils/100 WBC (Bld) 0.5 % Normal 0.2-2.0 [facility] Comment on above: Performed By: #### C BC ####[facility] [address] [place] [address]Dr. Becky Josue EO # 0.1 103/ul Normal 0.0-0.7 [facility] Comment on above: Performed By: #### C BC ####[facility] [address] [place] [address]DrBrayan Josue Eosinophils/100 WBC (Bld) 3.3 % Normal 0.9-7.0 [facility] Comment on above: Performed By: #### C BC ####[facility] [address] [place], [place] [address]DrBrayan Josue Erythrocyte distribution width (RBC) [Ratio] 14.3 % Normal 11.0-15.0 [facility] Comment on above: Performed By: #### C BC ####[facility] [address] [place] [address]DrBrayan Josue Hematocrit (Bld) [Volume fraction] 42.6 % Normal 36.0-48.0 [facility] Comment on above: Performed By: #### C BC ####[facility] [address] [place] [id number] Josue Hemoglobin (Bld) [Mass/Vol] 13.8 g/dL Normal 12.0-16.0 [facility] Comment on above: Performed By: #### C BC ####[facility] [address] [place], [place] [address]DrBrayan Josue IG # 0.02 10e3/ul Normal 0.00-0.03 [facility] Comment on above: Performed By: #### C BC ####[facility] [address] [place] [address]DrBrayan Josue IG % 0.5 % Normal 0.0-0.5 [facility] Comment on above: Performed By: #### C BC ####[facility] [address] [place] [id number] Josue LYMPH # 1.1 103/ul Critically low 1.2-3.8 [facility] Comment on above: Performed By: #### C BC ####[facility] [address] [place] [address]DrBrayan Josue Lymphocytes/100 WBC (Bld) 28.0 % Normal 20.5-60.0 [facility] Comment on above: Performed By: #### C BC ####[facility] [address] [place] [address]DrBrayan Josue MANUAL DIFF REQ NO Normal [facility] Comment on above: Performed By: #### C BC ####[facility] [address] [place] [id number] Kellenkwadwo Josue MCH (RBC) [Entitic mass] 29.3 pg Normal 26.7-34.0 [facility] Comment on above: Performed By: #### C BC ####[facility] [address] [place] [address]DrBrayan Josue MCHC (RBC) [Mass/Vol] 32.4 g/dL Normal 29.9-35.2 [facility] Comment on above: Performed By: #### C BC ####[facility] [address] [place] [id number] Josue MCV (RBC) [Entitic vol] 90.4 fL Normal 81.0-99.0 [facility] Comment on above: Performed By: #### C BC ####[facility] [address] [place] [id number] Josue MONO # 0.3 103/ul Normal 0.3-0.8 [facility] Comment on above: Performed By: #### C BC ####[facility] [address] [place] [id number]. Becky Josue Monocytes/100 WBC (Bld) 8.3 % Normal 1.7-12.0 [facility] Comment on above: Performed By: #### C BC ####[facility] [address] [place] [id number]. Becky Josue NEUT # 2.4 103/ul Normal 1.4-6.5 [facility] Comment on above: Performed By: #### C BC ####[facility] [address] [place] [id number]. Becky Josue Neutrophils/100 WBC (Bld) 59.4 % Normal 43.0-75.0 [facility] Comment on above: Performed By: #### C BC ####[facility] [address] [place] [address]Dr. Becky Josue Platelet mean volume (Bld) [Entitic vol] 10.3 fL Normal 9.5-13.5 [facility] Comment on above: Performed By: #### C BC ####[facility] [address] [place] [id number]. Becky Josue PLT 149 103/ul Critically low 150-450 [facility] Comment on above: Performed By: #### C BC ####[facility] [address] [place] [id number]. Becky Josue RBC 4.71 106/ul Normal 4.20-5.40 [facility] Comment on above: Performed By: #### C BC ####[facility] [address] [place] [id number]. Becky Josue WBC 4.0 103/ul Normal 4.0-11.0 [facility] Comment on above: Performed By: #### C BC ####[facility] [address]fr[address] [place] [id number]. Becky Josue FREE THYROXINE INDEX T7on FTI 3.36 Normal 1.30-4.50 [facility] Comment on above: Performed By: #### L IPID, CMP, TSH, T7 ####[facility] [address] [place], [place] [address]QfDr. Becky Josue T3U 32.0 % Normal 30.0-39.0 [facility] Comment on above: Performed By: #### L IPID, CMP, TSH, T7 ####[facility] [address] [place] [id number]. Becky Josue T4 [Mass/Vol] 10.50 ug/dL Normal 4.80-13.90 [facility] Comment on above: Performed By: #### L IPID, CMP, TSH, T7 ####[facility] [address] [place] [id number]. Becky Josue GLYCOHEMOGLOBIN A1Con 2021 ADA RECOMMENDATION SEE BELOW Normal [facility] Comment on above: Result Comment: ADA RECOMMENDED LIMIT 4.0 - 6.0 ADA THERAPEUTIC TARGET < 7.0 ACTION SUGGESTED > 7.0 Performed By: #### A 1C #### [facility] [address] [place] [address] [address] Becky Josue Glucose [Mass/Vol] 237 mg/dL Normal [facility] Comment on above: Performed By: #### A 1C #### [facility] [address] [address] [address] Becky Josue HbA1c (Bld) [Mass fraction] 9.9 % Critically high 4.5-6.2 [facility] Comment on above: Performed By: #### A 1C #### [facility] [address] [place] [address] [address] Becky Josue IRONon 09-24-2022 Iron [Mass/Vol] 55.0 ug/dL Normal 50.0-170.0 [facility] Comment on above: Performed By: #### I ROBERT CLINE #### [facility] [address] [place] [address] [address] Becky Josue LIPID PROFILEon 09-24-2022 CHOL-HDL RATIO NORM SEE BELOW Normal [facility] Comment on above: Result Comment: 3.3 - 4.4 LOW RISK 4.4 - 7.1 AVERAGE RISK 7.1 - 11.0 MODERATE RISK >11.0 HIGH RISK Performed By: #### L IPID, CMP, TSH, T7 ####[facility] [address] [place], [place] [address]Wn. Becky Josue Cholesterol [Mass/Vol] 171 mg/dL Normal <=200 [facility] Comment on above: Performed By: #### L IPID, CMP, TSH, T7 ####[facility] [address] [place], [place] [address]Vj. Becky Josue Cholesterol in HDL [Mass/Vol] 38 mg/dL Critically low 40-60 [facility] Comment on above: Performed By: #### L IPID, CMP, TSH, T7 ####[facility] [address] [place], [place] [address]Yk. Becky Josue Cholesterol in LDL [Mass/Vol] 101.6 mg/dL Normal [facility] Comment on above: Performed By: #### L IPID, CMP, TSH, T7 ####[facility] [address] [place], [place] [address]Nq. Becky Josue Cholesterol.total/Ch olesterol in HDL [Mass ratio] 4.5 {ratio} Normal [facility] Comment on above: Performed By: #### L IPID, CMP, TSH, T7 ####[facility] [address] [place], [place] [address]Am. Becky Josue HDL NORMAL > or = 60 mg/dl - LOW CARDIOVASCULAR RISK <40 mg/dl - HIGH CARDIOVASCULAR RISK Normal [facility] Comment on above: Performed By: #### L IPID, CMP, TSH, T7 ####[facility] [address] [place], [place] [address]Vd. Becky Josue LDL CALC NORMAL SEE BELOW Normal [facility] Comment on above: Result Comment: <100 mg/dl OPTIMAL 100 - 129 mg/dl NEAR OR ABOVE OPTIMAL 130 - 159 mg/dl BORDERLINE HIGH 160 - 189 mg/dl HIGH >190 mg/dl VERY HIGH Performed By: #### L IPID, CMP, TSH, T7 ####[facility] [address] [place] [address]Dr. Becky Josue Triglyceride [Mass/Vol] 157 mg/dL Critically high <=150 [facility] Comment on above: Performed By: #### L IPID, CMP, TSH, T7 ####[facility] [address] [place] [address]Dr. Becky Josue VLDL CALC 31.4 mg/dL Normal [facility] Comment on above: Performed By: #### L IPID, CMP, TSH, T7 ####[facility] [address] [place] [address]Dr. Becky Josue PROF 14(COMP METB)on 022 Albumin [Mass/Vol] 3.4 g/dL Normal 3.4-5.0 [facility] Comment on above: Performed By: #### L IPID, CMP, TSH, T7 ####[facility] [address] [place] [address]Dr. Becky Josue Albumin/Globulin [Mass ratio] 0.9 {ratio} Normal [facility] Comment on above: Performed By: #### L IPID, CMP, TSH, T7 ####[facility] [address] [place] [address]Dr. Becky Josue ALP [Catalytic activity/Vol] 106 U/L Normal 46-116 [facility] Comment on above: Performed By: #### L IPID, CMP, TSH, T7 ####[facility] [address]efs[address] [place] [address]Dr. Becky Josue ALT [Catalytic activity/Vol] 39 U/L Normal 14-59 [facility] Comment on above: Performed By: #### L IPID, CMP, TSH, T7 ####[facility] [address] [place] [address]Dr. Becky Josue Anion gap [Moles/Vol] 6.9 mmol/L Normal [facility] Comment on above: Performed By: #### L IPID, CMP, TSH, T7 ####[facility] [address] [place] [address]Dr. Becky Josue AST [Catalytic activity/Vol] 44 U/L Critically high 15-37 [facility] Comment on above: Performed By: #### L IPID, CMP, TSH, T7 ####[facility] [address] [place] [address]Dr. Becky Josue Bilirubin [Mass/Vol] 1.1 mg/dL Critically high 0.2-1.0 [facility] Comment on above: Performed By: #### L IPID, CMP, TSH, T7 ####[facility] [address] [place] [address]Dr. Becky Josue Calcium [Mass/Vol] 9.4 mg/dL Normal 8.5-10.1 [facility] Comment on above: Performed By: #### L IPID, CMP, TSH, T7 ####[facility] [address] [place] [address]Dr. Becky Josue Chloride [Moles/Vol] 103 mmol/L Normal 98-107 [facility] Comment on above: Performed By: #### L IPID, CMP, TSH, T7 ####[facility] [address] [place], [place] [address]Dr. Becky Josue CO2 [Moles/Vol] 31.3 mmol/L Normal 21.0-32.0 [facility] Comment on above: Performed By: #### L IPID, CMP, TSH, T7 ####[facility] [address] [place] [address]Dr. Becky Josue Creatinine [Mass/Vol] 0.72 mg/dL Normal 0.55-1.02 [facility] Comment on above: Performed By: #### L IPID, CMP, TSH, T7 ####[facility] [address] [place] [address]Dr. Becky Josue EGFR-AF HONG KONGER >60 Normal >=60 [facility] Comment on above: Performed By: #### L IPID, CMP, TSH, T7 ####[facility] [address] [place] [address]Dr. Becky Josue EGFR-NON AF [place]ER >60 Normal >=60 [facility] Comment on above: Performed By: #### L IPID, CMP, TSH, T7 ####[facility] [address] [place] [address]Dr. Becky Josue Globulin (S) [Mass/Vol] 4.0 g/dL Normal [facility] Comment on above: Performed By: #### L IPID, CMP, TSH, T7 ####[facility] [address] [place] [address]Dr. Becky Josue Glucose [Mass/Vol] 315 mg/dL Critically high 74-106 [facility] Comment on above: Performed By: #### L IPID, CMP, TSH, T7 ####[facility] [address] [place] [address]Dr. Becky Josue Potassium [Moles/Vol] 4.2 mmol/L Normal 3.5-5.1 [facility] Comment on above: Performed By: #### L IPID, CMP, TSH, T7 ####[facility] [address] [place], [place] [address]Dr. Becky Josue Protein [Mass/Vol] 7.4 g/dL Normal 6.4-8.2 [facility] Comment on above: Performed By: #### L IPID, CMP, TSH, T7 ####[facility] [address] [place], [place] [address]Dr. Becky Josue Sodium [Moles/Vol] 137 mmol/L Normal 136-145 [facility] Comment on above: Performed By: #### L IPID, CMP, TSH, T7 ####[facility] [address] [place] [address]Dr. Becky Josue Urea nitrogen [Mass/Vol] 14.0 mg/dL Normal 7.0-18.0 [facility] Comment on above: Performed By: #### L IPID, CMP, TSH, T7 ####[facility] [address] [place], [place] [address]Dr. Becky Josue Urea nitrogen/Creatinine [Mass ratio] 19.4 mg/mg Normal [facility] Comment on above: Performed By: #### L IPID, CMP, TSH, T7 ####[facility] [address] [place], [place] [address]WxBrayan Josue TSHon 09-24-2022 TSH 2.117 uIU/mL Normal 0.358-3.740 [facility] Comment on above: Performed By: #### L IPID, CMP, TSH, T7 ####[facility] [address] [place], [place] [address]CmDr. Becky Josue VITAMIN D 25 OHon 09-24-2022 VIT D 25-OH 21.3 ng/mL Normal [facility] Comment on above: Performed By: #### I MARLYN VITAD #### [facility] [address] [place], [place] [address] Dr. Becky Josue VIT D RANGES SEE BELOW Normal [facility] Comment on above: Result Comment: <20 ng/mL Vit D deficient 20 - <30 ng/mL Vit D insufficient 30 - 100 ng/mL Vit D sufficient >100 ng/mL Potential Toxicity Performed By: #### I MARLYN VITAD #### [facility] [address] [place] [address] [address] Becky Josue COVID Quick Testingon 2020 Result Negative [employer] Other MG MAMM SCREEN 3D SVEN CADon 10-12-2021 MG MAMM SCREEN 3D SVEN CAD Patient: SHIRLEY BRIAN Exam Date: 10/12/2021 : 1955 Gender:F Ordering : DR MARYJANE SUÁREZ . Admission #: [id number] Family : Order #: [id number] CLICK HERE TO VIEW EXAM RADIOLOGY REPORT PROCEDURE: MAMMOGRAM SCREENING 3D BILATERAL CAD COMPARISON: MG MAMM SCREEN SVEN W CAD, 12/29/2018. MG MAMM SCREEN SVEN W CAD, 12/27/2017. INDICATIONS: Screening mammography Calculator Name NCI Breast Cancer Risk Assessment Tool 5 Year Breast Cancer Risk 1.30% Lifetime Breast Cancer Risk 5.20% Personal Breast Cancer No Personal Ovarian Cancer No Treatments None Family Cancers Grandmother-materna l with breast cancer at age 65. LOCATION: [facility] BREAST COMPOSITION: Scattered areas fibroglandular density. FINDINGS: DIAGNOSTIC CATEGORY 2--BENIGN FINDING: RIGHT BREAST: No significant suspicious finding. Scattered benign-appearing calcifications are present. No significant change has occurred. LEFT BREAST: No significant suspicious finding. Scattered benign-appearing calcifications are present. Scattered benign-appearing nodules are present. No significant change has occurred. RECOMMENDATIONS: ROUTINE MAMMOGRAM AND CLINICAL EVALUATION IN 12 MONTHS. PLEASE NOTE: A NORMAL MAMMOGRAM DOES NOT EXCLUDE THE POSSIBILITY OF BREAST CANCER. A CLINICALLY SUSPICIOUS PALPABLE LUMP SHOULD BE BIOPSIED. Dictated by: Leland Del Rosario M.D. on 10/13/2021 at 12:00 Approved by: Leland Del Rosario M.D. on 10/13/2021 at 12:22 Normal [facility] CBC AUTO DIFFon 10-03-2021 BASO # 0.0 103/ul Normal 0.0-0.1 [facility] Comment on above: Performed By: #### C BC #### [facility] [address] [place] [address] Dr. Becky Josue Basophils/100 WBC (Bld) 0.4 % Normal 0.2-2.0 [facility] Comment on above: Performed By: #### C BC #### [facility] [address] [place] [address] Dr. Becky Josue EO # 0.2 103/ul Normal 0.0-0.7 [facility] Comment on above: Performed By: #### C BC #### [facility] [address] [place] [address] Dr. Becky Josue Eosinophils/100 WBC (Bld) 4.1 % Normal 0.9-7.0 [facility] Comment on above: Performed By: #### C BC #### [facility] [address] [place] [address] Dr. Becky Josue Erythrocyte distribution width (RBC) [Ratio] 14.5 % Normal 11.0-15.0 [facility] Comment on above: Performed By: #### C BC #### [facility] [address] [place] [address] Dr. Becky Josue Hematocrit (Bld) [Volume fraction] 43.5 % Normal 36.0-48.0 [facility] Comment on above: Performed By: #### C BC #### [facility] [address] [place] [address] Dr. Becky Josue Hemoglobin (Bld) [Mass/Vol] 13.7 g/dL Normal 12.0-16.0 [facility] Comment on above: Performed By: #### C BC #### [facility] [address] [place] [address] Dr. Becky Josue IG # 0.02 10e3/ul Normal 0.00-0.03 [facility] Comment on above: Performed By: #### C BC #### [facility] [address] [place] [address] Dr. Becky Josue IG % 0.4 % Normal 0.0-0.5 [facility] Comment on above: Performed By: #### C BC #### [facility] [address] [place] [address] Dr. Becky Josue LYMPH # 1.6 103/ul Normal 1.2-3.8 [facility] Comment on above: Performed By: #### C BC #### [facility] [address] [place] [address] Dr. Becky Josue Lymphocytes/100 WBC (Bld) 32.0 % Normal 20.5-60.0 [facility] Comment on above: Performed By: #### C BC #### [facility] [address] [place] [address] Dr. Becky Josue MANUAL DIFF REQ NO Normal [facility] Comment on above: Performed By: #### C BC #### [facility] [address] [place] [address] Dr. Becky Josue MCH (RBC) [Entitic mass] 29.5 pg Normal 26.7-34.0 [facility] Comment on above: Performed By: #### C BC #### [facility] [address] [place] [address] Dr. Becky Josue MCHC (RBC) [Mass/Vol] 31.5 g/dL Normal 29.9-35.2 [facility] Comment on above: Performed By: #### C BC #### [facility] [address] [place] [address] Dr. Becky Josue MCV (RBC) [Entitic vol] 93.5 fL Normal 81.0-99.0 [facility] Comment on above: Performed By: #### C BC #### [facility] [address] [place] [address] Dr. Becky Josue MONO # 0.4 103/ul Normal 0.3-0.8 [facility] Comment on above: Performed By: #### C BC #### [facility] [address] [place] [address] Dr. Becky Josue Monocytes/100 WBC (Bld) 8.8 % Normal 1.7-12.0 [facility] Comment on above: Performed By: #### C BC #### [facility] [address] [place] [address] Dr. Becky Josue NEUT # 2.7 103/ul Normal 1.4-6.5 [facility] Comment on above: Performed By: #### C BC #### [facility] [address] [place] [address] Dr. Becky Josue Neutrophils/100 WBC (Bld) 54.3 % Normal 43.0-75.0 [facility] Comment on above: Performed By: #### C BC #### [facility] [address] [place] [address] Dr. Becky Josue Platelet mean volume (Bld) [Entitic vol] 10.4 fL Normal 9.5-13.5 [facility] Comment on above: Performed By: #### C BC #### [facility] [address] [place] [address] Dr. Becky Josue PLT 158 103/ul Normal 150-450 [facility] Comment on above: Performed By: #### C BC #### [facility] [address] [place] [address] Dr. Becky Josue RBC 4.65 106/ul Normal 4.20-5.40 [facility] Comment on above: Performed By: #### C BC #### [facility] [address] [place] [address] Dr. Becky Josue WBC 4.9 103/ul Normal 4.0-11.0 [facility] Comment on above: Performed By: #### C BC #### [facility] [address] [address] [address] Becky Josue FREE THYROXINE INDEX T7on FTI 2.79 Normal [facility] Comment on above: Performed By: #### L IPID, CMP, T7, TSH ####[facility] [address] [address]DrBrayan Josue T3U 30.0 % Normal 23.5-40.5 [facility] Comment on above: Performed By: #### L IPID, CMP, T7, TSH ####[facility] [address] [address]Dr. Becky Josue T4 [Mass/Vol] 9.30 ug/dL Normal 5.53-11.00 [facility] Comment on above: Performed By: #### L IPID, CMP, T7, TSH ####[facility] [address] [address]Dr. Becky Josue GLYCOHEMOGLOBIN A1Con 2020 ADA RECOMMENDATION ADA THERAPEUTIC TARGET 6.0 - 7.0 ACTION SUGGESTED > 7.0 Normal [facility] Comment on above: Performed By: #### A 1C #### [facility] [address] [address] [address] Becky Josue Glucose [Mass/Vol] 229 mg/dL Normal [facility] Comment on above: Performed By: #### A 1C #### [facility] [address] [address] [address] Becky Josue HbA1c (Bld) [Mass fraction] 9.6 % Critically high <=6.0 [facility] Comment on above: Performed By: #### A 1C #### [facility] [address] [address] [address] Becky Josue IRONon 10-03-2021 Iron [Mass/Vol] 62.0 ug/dL Normal 37.0-170.0 [facility] Comment on above: Performed By: #### I MARLYN #### [facility] [address] [address] [address] Becky Josue LIPID PROFILEon 10-03-2021 CHOL-HDL RATIO NORM SEE BELOW Normal [facility] Comment on above: Result Comment: 3.3 - 4.4 LOW RISK 4.4 - 7.1 AVERAGE RISK 7.1 - 11.0 MODERATE RISK >11.0 HIGH RISK Performed By: #### L IPID, CMP, T7, TSH #### [facility] [address] [address] [address] Becky Josue Cholesterol [Mass/Vol] 172 mg/dL Normal <=200 [facility] Comment on above: Performed By: #### L IPID, CMP, T7, TSH #### [facility] [address] [address] [address] Becky Josue Cholesterol in HDL [Mass/Vol] 38 mg/dL Normal [facility] Comment on above: Performed By: #### L IPID, CMP, T7, TSH #### [facility] [address] [address] [address] Becky Josue Cholesterol in LDL [Mass/Vol] 89.0 mg/dL Normal [facility] Comment on above: Performed By: #### L IPID, CMP, T7, TSH #### [facility] [address] [address] [address] Becky Josue Cholesterol.total/Ch olesterol in HDL [Mass ratio] 4.5 {ratio} Normal [facility] Comment on above: Performed By: #### L IPID, CMP, T7, TSH #### [facility] [address] [address] [address] Becky Josue HDL NORMAL > or = 60 mg/dl - LOW CARDIOVASCULAR RISK <40 mg/dl - HIGH CARDIOVASCULAR RISK Normal [facility] Comment on above: Performed By: #### L IPID, CMP, T7, TSH #### [facility] [address] [address] [address] Becky Josue LDL CALC NORMAL SEE BELOW Normal [facility] Comment on above: Result Comment: <100 mg/dl OPTIMAL 100 - 129 mg/dl NEAR OR ABOVE OPTIMAL 130 - 159 mg/dl BORDERLINE HIGH 160 - 189 mg/dl HIGH >190 mg/dl VERY HIGH Performed By: #### L IPID, CMP, T7, TSH #### [facility] [address] [address] [address] Becky Josue Triglyceride [Mass/Vol] 225 mg/dL Critically high <=150 [facility] Comment on above: Performed By: #### L IPID, CMP, T7, TSH #### [facility] [address] [address] [address] Becky Josue VLDL CALC 45.0 mg/dL Normal [facility] Comment on above: Performed By: #### L IPID, CMP, T7, TSH #### [facility] [address] [address] [address] Becky Josue PROF 14(COMP METB)on 021 Albumin [Mass/Vol] 3.1 g/dL Critically low 3.5-5.0 Th [facility] Comment on above: Performed By: #### L IPID, CMP, T7, TSH #### [facility] [address] [place] [address] Dr. Becky Josue Albumin/Globulin [Mass ratio] 0.8 {ratio} Normal [facility] Comment on above: Performed By: #### L IPID, CMP, T7, TSH #### [facility] [address] [address] [address] Becky Josue ALP [Catalytic activity/Vol] 100 U/L Normal 38-126 [facility] Comment on above: Performed By: #### L IPID, CMP, T7, TSH #### [facility] [address] [place] [address] Dr. Becky Josue ALT [Catalytic activity/Vol] 35 U/L Normal 9-52 [facility] Comment on above: Performed By: #### L IPID, CMP, T7, TSH #### [facility] [address] [address] [address] Becky Josue Anion gap [Moles/Vol] 13.0 mmol/L Normal [facility] Comment on above: Performed By: #### L IPID, CMP, T7, TSH #### [facility] [address] [address] [address] Becky Josue AST [Catalytic activity/Vol] 27 U/L Normal 14-36 [facility] Comment on above: Performed By: #### L IPID, CMP, T7, TSH #### [facility] [address] [address] [address] Becky Josue Bilirubin [Mass/Vol] 0.8 mg/dL Normal 0.2-1.3 [facility] Comment on above: Performed By: #### L IPID, CMP, T7, TSH #### [facility] [address] [place] [address] Dr. Becky Josue Calcium [Mass/Vol] 8.9 mg/dL Normal 8.4-10.2 [facility] Comment on above: Performed By: #### L IPID, CMP, T7, TSH #### [facility] [address] [place] [address] Dr. Becky Josue Chloride [Moles/Vol] 103 mmol/L Normal 98-107 [facility] Comment on above: Performed By: #### L IPID, CMP, T7, TSH #### [facility] [address] [address] [address] Becky Josue CO2 [Moles/Vol] 30.3 mmol/L Critically high 22.0-30.0 [facility] Comment on above: Performed By: #### L IPID, CMP, T7, TSH #### [facility] [address] [place] [address] Dr. Becky Josue Creatinine [Mass/Vol] 0.72 mg/dL Normal 0.52-1.04 [facility] Comment on above: Performed By: #### L IPID, CMP, T7, TSH #### [facility] [address] [place] [address] Dr. Becky Josue EGFR-AF [place]ONG [place]ER >60 Normal >=60 [facility] Comment on above: Performed By: #### L IPID, CMP, T7, TSH #### [facility] [address] [place] [address] Dr. Becky Josue EGFR-NON AF [place] >60 Normal >=60 [facility] Comment on above: Performed By: #### L IPID, CMP, T7, TSH #### [facility] [address] [address] [address] Becky Josue Globulin (S) [Mass/Vol] 3.9 g/dL Normal [facility] Comment on above: Performed By: #### L IPID, CMP, T7, TSH #### [facility] [address] [address] [address] Becky Josue Glucose [Mass/Vol] 261 mg/dL Critically high 74-106 [facility] Comment on above: Performed By: #### L IPID, CMP, T7, TSH #### [facility] [address] [address] [address] Becky Josue Potassium [Moles/Vol] 4.3 mmol/L Normal 3.4-5.0 [facility] Comment on above: Performed By: #### L IPID, CMP, T7, TSH #### [facility] [address] [address] [address] Becky Josue Protein [Mass/Vol] 7.0 g/dL Normal 6.1-8.2 [facility] Comment on above: Performed By: #### L IPID, CMP, T7, TSH #### [facility] [address] [address] [address] Becky Josue Sodium [Moles/Vol] 142 mmol/L Normal 137-145 [facility] Comment on above: Performed By: #### L IPID, CMP, T7, TSH #### [facility] [address] [address] [address] Becky Josue Urea nitrogen [Mass/Vol] 22.0 mg/dL Critically high 7.0-17.0 [facility] Comment on above: Performed By: #### L IPID, CMP, T7, TSH #### [facility] [address] [address] [address] Becky Josue Urea nitrogen/Creatinine [Mass ratio] 30.6 mg/mg Normal [facility] Comment on above: Performed By: #### L IPID, CMP, T7, TSH #### [facility] [address] [place], [place] [address] Dr. Becky Josue TSHon 10-03-2021 TSH 2.809 uIU/mL Normal 0.470-4.680 [facility] Comment on above: Performed By: #### L IPID, CMP, T7, TSH ####[facility] [address] [place], [place] [address]ZwBrayan Josue TSH RANGE SEE BELOW Normal [facility] Comment on above: Result Comment: <0.3 4 UIU/ml HYPERTHYROID 0.34-5.60 UIU/ml EUTHYROID >5.60 UIU/ml HYPOTHYROID Performed By: #### L IPID, CMP, T7, TSH ####[facility] [address] [place], [place] [address]Gl[address]. Becky Josue Outside Colonoscopyon 2019 Outside Colonoscopy [id number]:127 Normal [facility] Lab Reportson 05-19-2020 Lab Reports [id number]#[id number]:127 Normal [facility] Ambulatory Clinical Summaryo n 05-09-2020 Ambulatory Clinical Summary {[id number]}CD:[id number] 8 [facility] Facesheeton 05-09-2020 Facesheet [id number]:127 [facility] Physician Referralon 020 Physician Referral [id number]#1.00CD:127 [facility] Vital Signs Date Time Vital Sign Value Performing Clinician Facility 02-16-2022 12:30-0400 Body height 167.64 cm Ashley Cox Other [facility] Other 02-16-2022 12:30-0400 Body mass index (BMI) [Ratio] 34.21 kg/m2 Ashley Cox Other [facility] Other 02-16-2022 12:30-0400 Body temperature 97.8 [degF] Ashley Cox Other [facility] Other 02-16-2022 12:30-0400 Body weight 96.16 kg Ashley Cox Other [facility] Other 02-16-2022 12:30-0400 Respiratory rate 18 /min Ashley Cox Other [facility] Other 02-16-2022 12:30-0400 SaO2% (BldA) [Mass fraction] 97 % Ashley Cox Other [facility] Other Encounters Encounter Date Encounter Type Care Provider Facility Start: 11-08-2023 End: 11-08-2023 ambulatory [facility] Start: 06-21-2023 End: 06-21-2023 ambulatory JIM [facility] Start: 09-24-2022 End: 09-25-[address] MARYJANE SUÁREZ Facility:[facility] Start: 02-16-2022 End: 02-16-2022 ambulatory Ashley Cox Other [facility] Other Start: 02-16-2022 Office outpatient vi sit 15 minutes Ashley Cox [facility] Start: 10-26-2021 End: 10-26-2021 ambulatory Soco Hernandez Other [facility] Other Start: 10-26-2021 Office outpatient vi sit 5 minutes Soco Hernandez [facility] Start: 10-12-2021 End: 10-13-[address] MARYJANE SUÁREZ Facility:[facility] Start: 10-08-2021 Encounter for genera l adult medical examination without abnormal findings DR MARYJANE SUÁREZ [facility] Start: 10-03-2021 End: 10-04-[address] MARYJANE SUÁREZ Facility:[facility] Start: 10-03-2021 End: 10-04-2021 Encounter for general adult medical examination without abnormal findings DR MARYJANE SUÁREZ Facility:[facility] Payers Date Payer Category Payer Unknown [id number]. [id number] 1955 Unknown [id number] 1955 Unknown [id number] [id number] [id number] 1955 Unknown [id number] [id number] Medicare [id number] 2.1 [id number] Social History Date Type Detail Facility Sex Assigned At [facility] Other Clinical Notes 10-26-2021 to 11-08-2023 Note Date & Type Note Facility 11-08-2023 Note [facility] Consult Note [facility] Reason for visit: Afib HPI: Shirley Brian is a 68 y.o. year old with past medical history of Hypertension, diabetes, dyslipidemia, palpitations. She was recently seen at the [facility] for A-fib RVR as she was admitted for diarrhea and palpitations. She was found to have C. difficile and was treated with antibiotics and converted to sinus rhythm on her own. She states she normally would get palpitations when she drinks caffeine and typically avoids caffeine, the day of her admission she believes she was given caffeinated coffee at [facility] and then began experience palpitations while already dealing with her diarrhea so she was seen by ER. She had also been experiencing lower extremity swelling and was diuresed and patient which has resolved. She for some reason was [facility] and stress test ordered but not done she has been feeling well with no complaints of chest pain, shortness of breath, BERRY, orthopnea, palpitations. She has noticed some LE edema. Her insurance denied CTA coronaries, ordered by Jim Mc CNP in Jun 2023. Denies chest pain. Still gets episodes of SOB w/ exertion. Has had intermittent palpitations the last couple weeks. Stress test done on 07/27/2023 does not show any evidence of reversible ischemia. below [id number] at least 4 for age, gender, hypertension, diabetes She has been taking Eliquis 5 mg twice daily and tolerating without signs or symptoms of bleeding. Echo 05/24/2023 LVEF 65%, normal LV systolic function and size, borderline left ventricular hypertrophy, LA severely dilated, RA mild dilatation, RVSP 39 mmHg, mild to moderate much regurgitation, mild aortic regurgitation Labs 05/25/2023 sodium 142, K3.7, BUN 27, creatinine 0.75, GFR greater than 60, magnesium 1.5 ECG 11/08/23 SR 06/21/23 SR with PAC 05/23/2023 A-fib RVR but does appear to be more like atrial flutter PMH: Past Medical History: Diagnosis Date Abnormal ECG Arrhythmia Atrial fibrillation (CMS/HCC) C. difficile colitis Diabetes mellitus (CMS/HCC) Hyperlipidemia Hypertension PSH: Past Surgical History: Procedure Laterality Date HERNIA REPAIR HYSTERECTOMY SHOULDER SURGERY TONSILLECTOMY TONSILLECTOMY SH: Social Determinants of Health Tobacco Use: Low Risk (06/21/2023) Patient History Smoking Tobacco Use: Never Smokeless Tobacco Use: Never Passive Exposure: Not on file Alcohol Use: Not on file Financial Resource Strain: Not on file Food Insecurity: Not on file Transportation Needs: Not on file Physical Activity: Not on file Stress: Not on file Social Connections: Not on file Intimate Partner Violence: Not on file Depression: Not on file Housing Stability: Not on file Allergies: Allergies Allergen Reactions Sulfa (Sulfonamide Antibiotics) Weight: 102kg Visit Vitals BP 148/70 (BP Location: Left arm, Patient Position: Sitting) Pulse 70 Ht 1.676 m (5' 6 ) Wt 102 kg (224 lb) SpO2 97% BMI 36.15 kg/m??? Smoking Status Never BSA 2.18 m??? Meds: Current Outpatient Medications on File Prior to Visit Medication Sig Dispense Refill Eliquis 5 mg tablet Take 5 mg by mouth in the morning and at bedtime. furosemide (Lasix) 20 mg tablet Take 1 tablet (20 mg) by mouth if needed each day (for lower extremity edema). 30 tablet 3 magnesium oxide (Mag-Ox) 400 mg (241.3 mg magnesium) tablet metFORMIN (Glucophage) 500 mg tablet Take 1 tablet by mouth twice a day. metoprolol tartrate (Lopressor) 50 mg tablet Take 50 mg by mouth in the morning and at bedtime. pioglitazone (Actos) 30 mg tablet Take 30 mg by mouth in the morning. ramipril (Altace) 10 mg capsule Take 10 mg by mouth in the morning. simvastatin (Zocor) 20 mg tablet Take 20 mg by mouth at bedtime. venlafaxine XR (Effexor-XR) 75 mg 24 hr capsule No current facility-administered medications on file prior to visit. ROS: Review of Systems HENT: Positive for nosebleeds. Cardiovascular: Positive for dyspnea on exertion, leg swelling (minimal) and palpitations. Musculoskeletal: Positive for arthritis and joint pain. All other systems reviewed and are negative. Physical Exam: Constitutional General Appearance: well-nourished, well-developed, appears stated age Level of Distress: comfortable Psychiatric Mental Status: alert, normal affect Orientation: oriented to time, place, and person Insight: good judgement Eyes Lids and Conjunctivae: non-injected, no xanthelasma ENMT Ears: no lesions on external ear Nose: no lesions on external nose Oropharynx: no cyanosis, no pallor Neck Neck: supple, trachea midline Carotid Arteries: bilateral normal upstroke, no bruits Jugular Veins: normal jugular venous pressure Thyroid: not enlarged Lungs Respiratory Effort: unlabored Chest Exam: normal curvature, no thoracic deformity Auscultation: clear, no wheezing, no rales, no rhonchi (more content not included)... [facility] 11-08-2023 Note Patient here for 4 m o follow up PAF, HFpEF, and valve disorder. Her insurance denied CTA coronaries, ordered by Jim Mc CNP in Jun 2023. Denies chest pain. Still gets episodes of SOB w/ exertion. Has had intermittent palpitations the last couple weeks. Review of Systems HENT: Positive for nosebleeds. Cardiovascular: Positive for dyspnea on exertion, leg swelling (minimal) and palpitations. Musculoskeletal: Positive for arthritis and joint pain. All other systems reviewed and are negative. [facility] 06-28-2023 Note - [facility], [facility] - controlled, follow-up with Dr. suárez [facility] 06-28-2023 Note - resolved. This cou ld have been the trigger to her A-fib but she was noted to have palpitations previously and intentionally avoided for that reason [facility] 06-28-2023 Note -[id number] at [facility] st 4 for age, gender, hypertension, diabetes - No AAD on board - continue Eliquis 5 mg, Toprol tartrate 50 mg twice daily [facility] 06-21-2023 Note Patient here for [facility] for new onset afib w/ RVR. She was also seen by [facility] cardiology last week somehow. She is still wearing event monitor s/p hospital discharge. Says she's had 1 episode of palpitations for about 2 hours since discharge. Denies chest pain. Had 1 episode of SOB also. Has epistaxis but says it's better now than before she was on Eliquis. Review of Systems HENT: Positive for nosebleeds. Cardiovascular: Positive for dyspnea on exertion, leg swelling and palpitations. Musculoskeletal: Positive for arthritis and joint pain. All other systems reviewed and are negative. [facility] 06-21-2023 Note [facility] Consult [facility] Clinic Reason for visit: [facility] follow up, AFIB vs flutter RVR possibly 2/2 c-diff infection, has hx palpitations HPI: Shirley Brian is a 67 y.o. year old with past medical history of Hypertension, diabetes, dyslipidemia, palpitations. She was recently seen at the [facility] for A-fib RVR as she was admitted for diarrhea and palpitations. She was found to have C. difficile and was treated with antibiotics and converted to sinus rhythm on her own. She states she normally would get palpitations when she drinks caffeine and typically avoids caffeine, the day of her admission she believes she was given caffeinated coffee at [place] and then began experience palpitations while already dealing with her diarrhea so she was seen by ER. She had also been experiencing lower extremity swelling and was diuresed and patient which has resolved. She for some reason [facility] and stress test ordered but not done she has been feeling well with no complaints of chest pain, shortness of breath, BERRY, orthopnea, palpitations. She has noticed some LE edema. [id number] at least 4 for age, gender, hypertension, diabetes She has been taking Eliquis 5 mg twice daily and tolerating without signs or symptoms of bleeding. Echo 05/24/2023 LVEF 65%, normal LV systolic function and size, borderline left ventricular hypertrophy, LA severely dilated, RA mild dilatation, RVSP 39 mmHg, mild to moderate much regurgitation, mild aortic regurgitation Labs 05/25/2023 sodium 142, K3.7, BUN 27, creatinine 0.75, GFR greater than 60, magnesium 1.5 ECG 06/21/23 SR with PAC 05/23/2023 A-fib RVR but does appear to be more like atrial flutter PMH: Past Medical History: Diagnosis Date Abnormal ECG Arrhythmia Atrial fibrillation ([facility]) C. difficile colitis Diabetes mellitus ([facility]) Hyperlipidemia Hypertension PSH: No past surgical history on file. SH: Social Determinants of Health Tobacco Use: Not on file Alcohol Use: Not on file Financial Resource Strain: Not on file Food Insecurity: Not on file Transportation Needs: Not on file Physical Activity: Not on file Stress: Not on file Social Connections: Not on file Intimate Partner Violence: Not on file Depression: Not on file Housing Stability: Not on file Allergies: Allergies Allergen Reactions Sulfa (Sulfonamide Antibiotics) Weight: 100kg Visit Vitals Ht 1.676 m (5' 6 ) Wt 100 kg (221 lb) BMI 35.67 kg/m??? BSA 2.16 m??? Meds: No current outpatient medications on file prior to visit. No current facility-administered medications on file prior to visit. ROS: Cardio Basic Cardiovascular Symptoms: no lightheadedness, no leg edema, no syncope, no orthopnea, no PND, no claudication, Constitutional Constitutional: no fever, no night sweats, no significant weight gain, no significant weight loss, no exercise intolerance Eyes Eyes: no dry eyes, no irritation, no vision change ENMT Ears: no difficulty hearing, no ear pain Nose: no frequent nosebleeds, Mouth/Throat: no sore throat, no bleeding gums, no snoring, no dry mouth, no mouth ulcers, no oral abnormalities, no teeth problems Respiratory Respiratory: no cough, no wheezing, no coughing up blood, no sleep apnea Musculoskeletal Musculoskeletal: no muscle aches, no muscle weakness, joint pain+, no back pain, no swelling in the extremities Integumentary Skin no rash, no ulcer, no varicosities, no discoloration, no pruritus Neurologic Neurologic: no loss of consciousness, no weakness, no numbness, no seizures, no dizziness, no headaches Psychiatric Psych: no depression, feeling safe in relationship, no alcohol abuse, Hematologic/Lymphatic Hematologic/Lymphatic no swollen glands, no bruising Physical Exam: Constitutional General Appearance: well-nourished, well-developed, appears stated age Level of Distress: comfortable Psychiatric Mental Status: alert, normal affect Orientation: oriented to time, place, and person Insight: good judgement Eyes Lids and Conjunctivae: non-injected, no xanthelasma ENMT Ears: no lesions on external ear Nose: no lesions on external nose Oropharynx: no cyanosis, no pallor Neck Neck: supple, trachea midline Carotid Arteries: bilateral normal upstroke, no bruits Jugular Veins: normal jugular venous pressure Thyroid: not enlarged Lungs Respiratory Effort: unlabored Chest Exam: normal curvature, no thoracic deformity Auscultation: clear, no wheezing, no rales, no rhonchi Cardiovascular Rate And Rhythm: regular Heart Sounds: normal S1, normal s2, no gallop Systolic Murmur: not heard Diastolic Murmur: not heard Extremities: no cyanosis, no edema, no peripheral signs of emboli Peripheral Pulses Radial Pulse: normal Abdomen Inspection and Palpation: soft, non distended, no bruit, non tender Musculoskeletal Inspection: (more content not included)... [facility] 02-16-2022 Evaluation note Encounter Date Diagnosis Assessment Notes Jan, Contact with and (suspected) exposure to other viral communicable diseases (ICD-10 - Z20.828) Jan, Viral URI with cough (ICD-10 - J06.9) Advised patient that rapid COVID antigen test and Influenza A/B test was negative today in office. Will treat as viral URI. Advised that viral syndromes last 7-10 days, antibiotics are not indicated for viruses. Will treat as viral at this time based on physical exam and duration of symptoms. May use [place] or Flonase as directed. May use Zofran and Albuterol Inhaler as needed, Tylenol/Motrin as directed for aches/fever. Supportive care as directed, push fluids and rest, throat lozenges, nasal saline spray as directed, cool mist humidification. Follow up with PCP if symptoms persist. Immediate eval for SOB, wheezing, difficulty breathing, chest pain, headache, neck pain/stiffness, light sensitivity, abdominal pain, N/V/D, rash, or other new or concerning symptoms. Patient verbalizes understanding and is agreeable to treatment plan Jan, Other Additional time spent conducting pre-visit phone call, screening for symptoms, instructions on social distancing, application and removal of PPE, and cleaning of examination room, equipment and supplies was preformed. Patient education given for testing methodology and results. Patient care instructions given in writting by [facility] document [employer] Other 12-06-2021 Evaluation note* Encounter Date Diagnosis Assessment Notes Treatment Notes Treatment Clinical Notes Oct, Encounter for screening for other viral diseases (ICD-10 - Z11.59) Oct, Other Additional time spent conducting pre-visit phone call, screening for symptoms, instructions on social distancing, application and removal of PPE, and cleaning of examination room, equipment and supplies was preformed. Patient education given for testing methodology and results. Patient care instructions given in writting by [facility]. [employer] Other History general Narrative - Reported* Type Description Date Medical History Diabetes Medical History HTN (hypertension) Medical History Anxiety Medical History Uterine cancer Surgical History hysterectomy Surgical History C section Surgical History tonsillectomy Surgical History appendectomy Surgical History cholecystectomy Surgical History colonoscopy Surgical History biopsy Hospitalization History pneumonia Hospitalization History see above [facility] Other Summary Purpose Family History No Family History Records FoundNo Family History Records FoundNo Family History Records Found Advance Directives No Advanced Directives Records FoundNo Advanced Directives Records FoundNo Advanced Directives Records Found Additional Source Comments INFORMATION SOURCE (unrecogn ized section and content) DATE CREATED AUTHOR [facility] DATE CREATED AUTHOR AUTHOR'S ORGANIZ ATION 10/01/2022 [facility] DATE CREATED AUTHOR AUTHOR'S ORGANIZ ATION 11/16/2023 [facility] REASON FOR VISIT (unrecogniz ed section and content) #14 RED BUICK, EXPOSED, COVI D Nurse Visit- Self PayBLACK CRV, B/A, SOB, COUGH FOR RECORDS PERTAINING TO PATIENTS WHO ARE OR HAVE BEEN ENROLLED IN A CHEMICAL DEPENDENCY/SUBSTANCEABUSE PROGRAM, SOME INFORMATION MAY BE OMITTED. This clinical summary was aggregated from multiple sources. Caution should be exercised in using it in the provision of clinical care. This summary normalizes information from multiple sources, and as a consequence, information in this document may materially change the coding, format and clinical context of patient data. In addition, data may be omitted in some cases. CLINICAL DECISIONS SHOULD BE BASED ON THE PRIMARY CLINICAL RECORDS. [email or web address] provides no warranty or guarantee of the accuracy or completeness of information in this document.
== END 2024-01-06 13:46 | disposition home or self-care (01) ==
LOC: RAD 13:46
PROVIDERS: PCP Family Medicine; Visit Provider Family Medicine
DX: R07.89 Other chest pain (principal)
CPT/HCPCS: 71101

== ENCOUNTER 2024-05-29 14:55 | Outpatient (OUT) | payer OTHER, SELFPAY ==
--- NOTE | 2024-05-29 15:05 | CA_ITS ---
Patient Name: CONNIE WISE MR#: [id number] : 1955 Exam Date: 05/29/2024 Ordering Doctor: AYDIN ESPINOZA ECHOCARDIOGRAM REPORT PROCEDURE: CA ECHO DOPPLER COMPLETE INDICATIONS: BERRY, Valvular heart disease COMPARISON: None. DESCRIPTION: COMPLETE ECHOCARDIOGRAM Real-time transthoracic echocardiography with 2D, M-mode, spectral and color flow Doppler performed. QUALITY: Technical quality was good. LEFT VENTRICLE: Normal chamber size. Mild concentric left ventricular hypertrophy. LV EF: Global left ventricular systolic function is hyperdynamic; visually estimated ejection fraction is 65 to 70%. No significant wall motion abnormalities. DIASTOLIC: Diastolic function is indeterminate. ATRIAL SEPTUM: Inadequately seen. LEFT ATRIUM: Moderate dilatation. RIGHT ATRIUM: Mild dilatation. RIGHT VENTRICLE: Normal chamber size. Normal right ventricular systolic function. TRICUSPID VALVE: Normal mobility and thickness. Mild regurgitation. Moderate pulmonary hypertension. RVSP 50mmHg MITRAL VALVE: Normal mobility and thickness. No evidence of mitral valve stenosis. There is no mitral annular calcification. Mild mitral regurgitation. AORTIC VALVE: Normal trileaflet appearance. Thickened aortic valve. Normal leaflet mobility. No evidence of aortic valve stenosis. Mild aortic regurgitation. AORTIC ROOT: Normal diameter and appearance. PULMONIC VALVE: Normal thickness and mobility. No stenosis. No regurgitation. PERICARDIUM: No evidence of pericardial effusion. IVC: Collapses with inspirations. Normal size. CONCLUSION: 1. Global left ventricular systolic function is hyperdynamic; visually estimated ejection fraction 65 to 70% 2. Mildly increased left ventricular wall thickness 3. Normal right ventricular size and systolic function 4. Biatrial enlargement 5. Diastolic function is indeterminate 6. Mild tricuspid regurgitation 7. Moderately elevated right ventricular systolic pressure; RVSP 50 mmHg 8. Mild mitral regurgitation 9. Mild aortic valve regurgitation Adult Echocardiography Procedure Report Left Ventricle LVEDD (3.7 - 5.6 cm): 4.76 cm LVESD (2.2 - 4.0 cm): 2.67 cm LVIVS thickness (0.6 - 1.2 cm): 1.33 cm LVPW thickness (0.5 - 1.0 cm): 1.17 cm e': 0.12 m/s E - e': 9.19 LVOT Max Gradient: 6.88 mm[Hg] LVOT Area (cm2): 1.31 m/s Peak Velocity (LVOT): 1.31 m/s Mean Velocity (LVOT): 0.78 m/s LVOT Diameter 2.20 cm Left Ventricular Ejection Fraction: 68.59 % Left Atrium LA Volume Index (2D A2C): 48.59 ml/m2 Left Atrium Systolic Dimension: 5.18 cm Mitral Valve MV E to A Ratio: 1.14, 1.09 Mitral Valve A-Wave Peak Velocity: 0.99 m/s Mitral Valve E-Wave Peak Velocity: 1.11 m/s Right Ventricle RV Internal Diastolic Dimension: 3.27 cm Aorta AO Root Diam: 3.26 cm Ascending Ao Diam: 2.98 cm Aortic Valve AoV Area (Peak Darryl): 2.37 cm2, 2.37 cm2 AoV Area (VTI): 2.70 cm2, 2.70 cm2 Deceleration [place]: 2.28 m/s2 Pressure Half-Time: 381.60 ms Peak Velocity(Antegrade Flow): 2.10 m/s Peak Gradient(Antegrade Flow): 17.61 mm[Hg] Mean Velocity(Antegrade Flow): 1.44 m/s Mean Gradient(Antegrade Flow): 9.53 mm[Hg] Velocity Time Integral: 44.16 cm Tricuspid Valve Peak Velocity (Regurgitant Flow): 3.06 m/s, 3.39 m/s, 3.44 m/s Pulmonic Valve Mean Gradient: 3.49 mm[Hg], 3.15 mm[Hg] Mean Velocity: 0.90 m/s, 0.85 m/s Peak Velocity: 1.11 m/s Peak Gradient: 4.96 mm[Hg], 4.96 mm[Hg] Right Atrium Right Atrium Systolic Pressure: 64.08 ml, 64.08 ml Dictated by: Monique Blair M.D. on 05/30/2024 at 10:50 Approved by: Monique Blair M.D. on 05/30/2024 at 10:55
== END 2024-05-29 14:56 | disposition home or self-care (01) ==
LOC: CARD 14:55
PROVIDERS: PCP Family Medicine; Visit Provider Internal Medicine Cardiovascular Disease
DX: R06.09 Other forms of dyspnea (principal); I38 Endocarditis, valve unspecified
CPT/HCPCS: 93306

== ENCOUNTER 2024-06-22 10:15 | Outpatient (REF) | payer OTHER, SELFPAY ==
--- OUTSIDE RECORDS SUMMARY | 2024-06-22 10:20 | XMS_ITS | CCD ---
Author Organization [facility] Care Team Providers Care Tobacco Educator Name Role Phone Soco Hernandez Unavailable Kenny Ashley Unavailable GAIL, DR WESLEY Consulting Unavailable CONCHITAY, DR WESLEY Primary Care Unavailable CONCHITAY, DR WESLEY Admitting Unavailable HOY, DR WESLEY Attending Unavailable HOY, DR WESLEY Consulting Unavailable CONCHITAY, DR WESLEY Primary Care Unavailable CONCHITAY, DR WESLEY Admitting Unavailable HOY, DR WESLEY Attending Unavailable HOY, DR WESLEY Consulting Unavailable CONCHITAY, DR WESLEY Primary Care Unavailable HOY, DR WESLEY Admitting Unavailable HOY, DR WESLEY Attending Unavailable ZIEBER, DR LELAND Lemus Consulting Unavailable MAGGY ARAIZA Attending Unavailable AYDIN ESPINOZA Attending Unavailable JIM MC Attending Unavailable Allergies Allergy Classification Reported Allergen(s) Allergy Type Date of Onset Reaction(s) Facility (1 source) Sulfacetamide Drug Allergy [facility] [employer] Other (1 source) Sulfonamides (Antibiotic) Drug allergy (disorder) 8 [facility] Repository (1 source) Sulfonamides (Antibiotic); Translations: [SULFA (SULFONAMIDE ANTIBIOTICS)] Propensity to adverse reactions to drug (disorder) 9 [facility] Repository Medications Current Medications Medication Drug Class(es) Dates Sig (Normalized) Sig (Original) [id number] 200 actuat albuterol 0.09 mg/actuat metered dose [...] 1.5 mg/ml oral solution (1 source) Uncompetitive W-vxfmut-G-aspartate Receptor Antagonist, Sigma-1 Agonist Start: 02-16-2022 take 10 mL by mouth every eight hours [place] DM 7.5-7.5 MG/5ML 10 mL Orally every [...] every six hours as needed for pain [place] 5-325 MG 1 tablet Orally every 6 hrs as needed for pain Jun, Not-Taking Start: 07-09-2015 take 1 tablet by abelino th every six hours as needed for pain [place] 5-325 MG 1 tablet Orally every 6 [...] atrial fibrillation; Translations: [Paroxysmal atrial fibrillation] Onset: 06-28-2023 Chronic Chronic kidney disease (1 source) Chronic kidney disease, unspecified; Translations: [CHRONIC KIDNEY DISEASE UNSPECIFIED] Onset: 09-30-2022 Chronic Deficiency and other anemia (1 source) Anemia, unspecified; Translations: [ANEMIA UNSPECIFIED] Onset: 09-30-2022 Episodic Diabetes mellitus with complications (4 sources) Type 2 diabetes mellitus with hyperglycemia; Translations: [TYPE 2 DM W/HYPERGLYCEMIA] Onset: 09-24-2022 Chronic Disorders of lipid metabolism (4 sources) Pure hypercholesterolem ia, unspecified; Translations: [Hyperlipidemia, unspecified] Onset: 09-30-2022 Chronic Essential hypertension (1 source) Essential (primary) hypertension; Translations: [ESSENTIAL PRIMARY HYPERTENSION] Onset: 09-30-2022 Chronic Nutritional deficiencies (1 source) Vitamin D deficiency, unspecified; Translations: [VITAMIN D DEFICIENCY UNSPECIFIED] Onset: 09-30-2022 Chronic Other lower respiratory disease (2 sources) Other forms of dyspnea; Translations: [Other forms of dyspnea] Onset: 04-19-2024 Episodic Saira-; endo-; and myocarditis; cardiomyopathy (except that caused by tuberculosis or sexually transmitted disease) (2 sources) Endocarditis, valve unspecified; Translations: [Endocarditis, valve unspecified] Onset: 04-19-2024 Chronic Past or Other Problems Problem Classification [...] Value Interpretation Reference Range Facility Office Visiton 04-19-2024 Follow-up visit [id number] Shirley Brian 1955 F Date Provider Department Center 04/19/2024 [id number]-TOSIFHAYDIN MUNSON Family History Problem Relation Age of Onset No Known Problems Mother Diabetes Father No Known Problems Sister No Known Problems Brother Family Status - Relation Status Age at Mother Father Sister Brother Level of Service:14572 [place] OFFICE/OUTPATIENT ESTABLISHED MOD MDM 30 MIN Normal [facility] Office Visiton 11-08-2023 Follow-up visit [id number] Shirley Brian 1955 F Date Provider Department Center 11/08/2023 MAGGY BERNAL Family History Problem Relation Age of Onset No Known Problems Mother Diabetes Father No Known Problems Sister No Known Problems Brother Family Status - Relation Status Age at Mother Father Sister Brother Level of Service:24507 [place] OFFICE/OUTPATIENT NEW MODERATE MDM 45 MINUTES Normal [facility] 36on 08-07-2023 36 Attempted to call, no answer, cannot leave VM as it is full. Stress showed no acute concerns. There was a defect which indicates she may have had an CO in the past. We can proceed with a cath given she has never had one to assess if she would like , otherwise we can also continue to manage medically. Let me know if she has preference, if she wants to do whatever we think, I will order a cath as it is better to know than not. Normal [facility] 36on 08-04-2023 36 Patient calling for stress test results. 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 Please advise. Thank you. Normal [facility] Office Visiton 06-21-2023 Follow-up visit [id number] Shirley Brian 1955 F Date Provider Department Center 06/21/2023 JIM CURRY CARD [facility] Family History Problem Relation Age of Onset No Known Problems Mother Diabetes Father No Known Problems Sister No Known Problems Brother Family Status - Relation Status Age at Mother Father Sister Brother Level of Service:54661 [place] OFFICE/OUTPATIENT ESTABLISHED MOD MDM 30-39 MIN Normal [facility] INSULINon 09-25-2022 Insulin 14.1 uIU/mL Normal 2.6-24.9 [facility] Comment on above: Performed By: #### I NSULIN #### [facility] [address] [place], [place] [address] Dr. Becky Josue CBC AUTO DIFFon 09-24-2022 BASO # 0.0 103/ul Normal 0.0-0.1 [facility] Comment on above: Performed By: #### C BC ####[facility] [address] [place] [address]DrBrayan Josue Basophils/100 WBC (Bld) 0.5 % Normal 0.2-2.0 [facility] Comment on above: Performed By: #### C BC ####[facility] [address] [place] [id number] Josue EO # 0.1 103/ul Normal 0.0-0.7 [facility] Comment on above: Performed By: #### C BC ####[facility] [address] [place] [id number] Josue Eosinophils/100 WBC (Bld) 3.3 % Normal 0.9-7.0 [facility] Comment on above: Performed By: #### C BC ####[facility] [address] [place] [address]DrBrayan Josue Erythrocyte distribution width (RBC) [Ratio] 14.3 % Normal 11.0-15.0 [facility] Comment on above: Performed By: #### C BC ####[facility] [address] [place] [address]DrBrayan Josue Hematocrit (Bld) [Volume fraction] 42.6 % Normal 36.0-48.0 [facility] Comment on above: Performed By: #### C BC ####[facility] [address] [place] [address]DrBrayan Josue Hemoglobin (Bld) [Mass/Vol] 13.8 g/dL Normal 12.0-16.0 [facility] Comment on above: Performed By: #### C BC ####[facility] [address] [place], [place] [address]DrBrayan Josue IG # 0.02 10e3/ul Normal 0.00-0.03 [facility] Comment on above: Performed By: #### C BC ####[facility] [address] [place], [place] [address]DrBrayan Josue IG % 0.5 % Normal 0.0-0.5 [facility] Comment on above: Performed By: #### C BC ####[facility] [address] [place], [place] [address]DrBrayan Josue LYMPH # 1.1 103/ul Critically low 1.2-3.8 [facility] Comment on above: Performed By: #### C BC ####[facility] [address] [place], [place] [address]DrBrayan Josue Lymphocytes/100 WBC (Bld) 28.0 % Normal 20.5-60.0 [facility] Comment on above: Performed By: #### C BC ####[facility] [address] [place], [place] [address]DrBrayan Josue MANUAL DIFF REQ NO Normal [facility] Comment on above: Performed By: #### C BC ####[facility] [address] [place], [place] [address]DrBrayan Josue MCH (RBC) [Entitic mass] 29.3 pg Normal 26.7-34.0 [facility] Comment on above: Performed By: #### C BC ####[facility] [address] [place] [id number]. Becky Joselo MCHC (RBC) [Mass/Vol] 32.4 g/dL Normal 29.9-35.2 [facility] Comment on above: Performed By: #### C BC ####[facility] [address] [place] [id number] Josue MCV (RBC) [Entitic vol] 90.4 fL Normal 81.0-99.0 [facility] Comment on above: Performed By: #### C BC ####[facility] [address] [place] [address]DrBrayan Josue MONO # 0.3 103/ul Normal 0.3-0.8 [facility] Comment on above: Performed By: #### C BC ####[facility] [address] [place], [place] [address]Dr. Becky Josue Monocytes/100 WBC (Bld) 8.3 % Normal 1.7-12.0 [facility] Comment on above: Performed By: #### C BC ####[facility] [address] [place], [place] [address]Dr. Becky Josue NEUT # 2.4 103/ul Normal 1.4-6.5 [facility] Comment on above: Performed By: #### C BC ####[facility] [address] [place], [place] [address]DrBrayan Josue Neutrophils/100 WBC (Bld) 59.4 % Normal 43.0-75.0 [facility] Comment on above: Performed By: #### C BC ####[facility] [address] [place], [place] [address]DrBrayan Josue Platelet mean volume (Bld) [Entitic vol] 10.3 fL Normal 9.5-13.5 [facility] Comment on above: Performed By: #### C BC ####[facility] [address] [place] [id number] Josue PLT 149 103/ul Critically low 150-450 [facility] Comment on above: Performed By: #### C BC ####[facility] [address] [place] [id number]. Kellenkwadwo Joselo RBC 4.71 106/ul Normal 4.20-5.40 [facility] Comment on above: Performed By: #### C BC ####[facility] [address] [place] [id number]. Becky Josue WBC 4.0 103/ul Normal 4.0-11.0 [facility] Comment on above: Performed By: #### C BC ####[facility] [address] [place] [id number]. Becky Josue FREE THYROXINE INDEX T7on FTI 3.36 Normal 1.30-4.50 [facility] Comment on above: Performed By: #### L IPID, CMP, TSH, T7 ####[facility] [address] [place] [address]Dr. Becky Josue T3U 32.0 % Normal 30.0-39.0 [facility] Comment on above: Performed By: #### L IPID, CMP, TSH, T7 ####[facility] [address] [place] [id number] Josue T4 [Mass/Vol] 10.50 ug/dL Normal 4.80-13.90 [facility] Comment on above: Performed By: #### L IPID, CMP, TSH, T7 ####[facility] [address] [place] [id number] Josue GLYCOHEMOGLOBIN A1Con 2021 ADA RECOMMENDATION SEE BELOW Normal [facility] Comment on above: Result Comment: ADA RECOMMENDED LIMIT 4.0 - 6.0 ADA THERAPEUTIC TARGET < 7.0 ACTION SUGGESTED > 7.0 Performed By: #### A 1C #### [facility] [address] [place] [address] [address] Becky Josue Glucose [Mass/Vol] 237 mg/dL Normal [facility] Comment on above: Performed By: #### A 1C #### [facility] [address] [place] [address] [address] Becky Josue HbA1c (Bld) [Mass fraction] 9.9 % Critically high 4.5-6.2 [facility] Comment on above: Performed By: #### A 1C #### [facility] [address] [place] [address] [address] Becky Josue IRONon 09-24-2022 Iron [Mass/Vol] 55.0 ug/dL Normal 50.0-170.0 [facility] Comment on above: Performed By: #### I ROBERT CLINE #### [facility] [address] [place] [address] [address] eBcky Josue LIPID PROFILEon 09-24-2022 CHOL-HDL RATIO NORM SEE BELOW Normal [facility] Comment on above: Result Comment: 3.3 - 4.4 LOW RISK 4.4 - 7.1 AVERAGE RISK 7.1 - 11.0 MODERATE RISK >11.0 HIGH RISK Performed By: #### L IPID, CMP, TSH, T7 ####[facility] [address] [place] [id number]. Becky Josue Cholesterol [Mass/Vol] 171 mg/dL Normal <=200 [facility] Comment on above: Performed By: #### L IPID, CMP, TSH, T7 ####[facility] [address] [place] [id number]. Becky Josue Cholesterol in HDL [Mass/Vol] 38 mg/dL Critically low 40-60 [facility] Comment on above: Performed By: #### L IPID, CMP, TSH, T7 ####[facility] [address] [place] [id number]. Becky Josue Cholesterol in LDL [Mass/Vol] 101.6 mg/dL Normal [facility] Comment on above: Performed By: #### L IPID, CMP, TSH, T7 ####[facility] [address] [place] [id number]. Becky Josue Cholesterol.total/Ch olesterol in HDL [Mass ratio] 4.5 {ratio} Normal [facility] Comment on above: Performed By: #### L IPID, CMP, TSH, T7 ####[facility] [address] [place] [id number]. Becky Josue HDL NORMAL > or = 60 mg/dl - LOW CARDIOVASCULAR RISK <40 mg/dl - HIGH CARDIOVASCULAR RISK Normal [facility] Comment on above: Performed By: #### L IPID, CMP, TSH, T7 ####[facility] [address] [place] [id number]. Becky Josue LDL CALC NORMAL SEE BELOW Normal [facility] Comment on above: Result Comment: <100 mg/dl OPTIMAL 100 - 129 mg/dl NEAR OR ABOVE OPTIMAL 130 - 159 mg/dl BORDERLINE HIGH 160 - 189 mg/dl HIGH >190 mg/dl VERY HIGH Performed By: #### L IPID, CMP, TSH, T7 ####[facility] [address] [place] [address]Dr. Becky Josue Triglyceride [Mass/Vol] 157 mg/dL Critically high <=150 [facility] Comment on above: Performed By: #### L IPID, CMP, TSH, T7 ####[facility] [address] [place] [address]Dr. Becky Josue VLDL CALC 31.4 mg/dL Normal [facility] Comment on above: Performed By: #### L IPID, CMP, TSH, T7 ####[facility] [address] [place] [id number]. Becky Josue PROF 14(COMP METB)on 022 Albumin [Mass/Vol] 3.4 g/dL Normal 3.4-5.0 [facility] Comment on above: Performed By: #### L IPID, CMP, TSH, T7 ####[facility] [address] [place] [id number]. Becky Josue Albumin/Globulin [Mass ratio] 0.9 {ratio} Normal [facility] Comment on above: Performed By: #### L IPID, CMP, TSH, T7 ####[facility] [address] [place] [id number]. Becky Josue ALP [Catalytic activity/Vol] 106 U/L Normal 46-116 [facility] Comment on above: Performed By: #### L IPID, CMP, TSH, T7 ####[facility] [address] [place] [address]Dr. Becky Josue ALT [Catalytic activity/Vol] 39 U/L Normal 14-59 [facility] Comment on above: Performed By: #### L IPID, CMP, TSH, T7 ####[facility] [address] [place] [address]Dr. Becky Josue Anion gap [Moles/Vol] 6.9 mmol/L Normal [facility] Comment on above: Performed By: #### L IPID, CMP, TSH, T7 ####[facility] [address] [place], [place] [address]Dr. Becky Josue AST [Catalytic activity/Vol] 44 U/L Critically high 15-37 [facility] Comment on above: Performed By: #### L IPID, CMP, TSH, T7 ####[facility] [address] [place], [place] [address]Dr. Becky Josue Bilirubin [Mass/Vol] 1.1 mg/dL Critically high 0.2-1.0 [facility] Comment on above: Performed By: #### L IPID, CMP, TSH, T7 ####[facility] [address] [place], [place] [address]Dr. Becky Josue Calcium [Mass/Vol] 9.4 mg/dL Normal 8.5-10.1 [facility] Comment on above: Performed By: #### L IPID, CMP, TSH, T7 ####[facility] [address] [place], [place] [address]Dr. Becky Josue Chloride [Moles/Vol] 103 mmol/L Normal 98-107 [facility] Comment on above: Performed By: #### L IPID, CMP, TSH, T7 ####[facility] [address] [place] [address]Dr. Becky Josue CO2 [Moles/Vol] 31.3 mmol/L Normal 21.0-32.0 [facility] Comment on above: Performed By: #### L IPID, CMP, TSH, T7 ####[facility] [address] [place] [id number]. Becky Josue Creatinine [Mass/Vol] 0.72 mg/dL Normal 0.55-1.02 [facility] Comment on above: Performed By: #### L IPID, CMP, TSH, T7 ####[facility] [address] [place] [id number]. Becky Joselo EGFR-AF AFGHAN >60 Normal >=60 [facility] Comment on above: Performed By: #### L IPID, CMP, TSH, T7 ####[facility] [address] [place] [id number]. Kellenkwadwo Joselo EGFR-NON AF AFGHAN >60 Normal >=60 [facility] Comment on above: Performed By: #### L IPID, CMP, TSH, T7 ####[facility] [address] [place] [address]Dr. Becky Josue Globulin (S) [Mass/Vol] 4.0 g/dL Normal [facility] Comment on above: Performed By: #### L IPID, CMP, TSH, T7 ####[facility] [address] [place], [place] [address]Dr. Becky Josue Glucose [Mass/Vol] 315 mg/dL Critically high 74-106 [facility] Comment on above: Performed By: #### L IPID, CMP, TSH, T7 ####[facility] [address] [place] [address]Dr. Becky Josue Potassium [Moles/Vol] 4.2 mmol/L Normal 3.5-5.1 [facility] Comment on above: Performed By: #### L IPID, CMP, TSH, T7 ####[facility] [address] [place] [address]Dr. Becky Josue Protein [Mass/Vol] 7.4 g/dL Normal 6.4-8.2 [facility] Comment on above: Performed By: #### L IPID, CMP, TSH, T7 ####[facility] [address] [place] [address]Dr. Becky Josue Sodium [Moles/Vol] 137 mmol/L Normal 136-145 [facility] Comment on above: Performed By: #### L IPID, CMP, TSH, T7 ####[facility] [address] [place] [id number]. Becky Josue Urea nitrogen [Mass/Vol] 14.0 mg/dL Normal 7.0-18.0 [facility] Comment on above: Performed By: #### L IPID, CMP, TSH, T7 ####[facility] [address] [place] [id number]. Becky Josue Urea nitrogen/Creatinine [Mass ratio] 19.4 mg/mg Normal [facility] Comment on above: Performed By: #### L IPID, CMP, TSH, T7 ####[facility] [address] [place] [id number]. Becky Josue TSHon 09-24-2022 TSH 2.117 uIU/mL Normal 0.358-3.740 [facility] Comment on above: Performed By: #### L IPID, CMP, TSH, T7 ####[facility] [address] [place] [id number]. Becky Josue VITAMIN D 25 OHon 09-24-2022 VIT D 25-OH 21.3 ng/mL Normal [facility] Comment on above: Performed By: #### I MARLYN VITAD #### [facility] [address] [place] [address] [address] Becky Josue VIT D RANGES SEE BELOW Normal [facility] Comment on above: Result Comment: <20 ng/mL Vit D deficient 20 - <30 ng/mL Vit D insufficient 30 - 100 ng/mL Vit D sufficient >100 ng/mL Potential Toxicity Performed By: #### Ryan CLINE VITAD #### [facility] [address] [place] [address] [address] Becky Josue COVID Quick Testingon 2020 Result Negative Colatris Other MG MAMM SCREEN 3D SVEN CADon 10-12-2021 MG MAMM SCREEN 3D SVEN CAD Patient: SHIRLEY BRIANBrayan Exam Date: 10/12/2021 : 1955 Gender:F Ordering : DR MARYJANE SUÁREZ . Admission #: [id number] Family : Order #: [id number] CLICK HERE TO VIEW EXAM RADIOLOGY REPORT [...] breast cancer at age 66. LOCATION: [facility] BREAST COMPOSITION: Scattered areas fibroglandular density. FINDINGS: [...] M.D. on 10/13/2021 at 12:22 Normal [facility] CBC AUTO DIFFon 10-03-2021 BASO # 0.0 103/ul Normal 0.0-0.1 [facility] Comment on above: Performed By: #### C BC #### [facility] [address] [place] [address] [address] Becky Josue Basophils/100 WBC (Bld) 0.4 % Normal 0.2-2.0 [facility] Comment on above: Performed By: #### C BC #### [facility] [address] [place] [address] [address] Becky Josue EO # 0.2 103/ul Normal 0.0-0.7 [facility] Comment on above: Performed By: #### C BC #### [facility] [address] [place] [address] [address] Becky Josue Eosinophils/100 WBC (Bld) 4.1 % Normal 0.9-7.0 [facility] Comment on above: Performed By: #### C BC #### [facility] [address] [place] [address] Dr. Becky Josue Erythrocyte distribution width (RBC) [Ratio] 14.5 % Normal 11.0-15.0 [facility] Comment on above: Performed By: #### C BC #### [facility] [address] [place] [address] Dr. Becky Josue Hematocrit (Bld) [Volume fraction] 43.5 % Normal 36.0-48.0 [facility] Comment on above: Performed By: #### C BC #### [facility] [address] [place] [address] Dr. Becky Josue Hemoglobin (Bld) [Mass/Vol] 13.7 g/dL Normal 12.0-16.0 [facility] Comment on above: Performed By: #### C BC #### [facility] [address] [place] [address] Dr. Becky Josue IG # 0.02 10e3/ul Normal 0.00-0.03 [facility] Comment on above: Performed By: #### C BC #### [facility] [address] [place] [address] Dr. eBcky Josue IG % 0.4 % Normal 0.0-0.5 [facility] Comment on above: Performed By: #### C BC #### [facility] [address] [place] [address] Dr. Becky Josue LYMPH # 1.6 103/ul Normal 1.2-3.8 [facility] Comment on above: Performed By: #### C BC #### [facility] [address] [place] [address] Dr. Becky Josue Lymphocytes/100 WBC (Bld) 32.0 % Normal 20.5-60.0 [facility] Comment on above: Performed By: #### C BC #### [facility] [address] [place] [address] Dr. Becky Josue MANUAL DIFF REQ NO Normal [facility] Comment on above: Performed By: #### C BC #### [facility] [address] [place] [address] Dr. Becky Josue MCH (RBC) [Entitic mass] 29.5 pg Normal 26.7-34.0 [facility] Comment on above: Performed By: #### C BC #### [facility] [address] [place] [address] Dr. Becky Josue MCHC (RBC) [Mass/Vol] 31.5 g/dL Normal 29.9-35.2 [facility] Comment on above: Performed By: #### C BC #### [facility] [address] [place] [address] Dr. Becky Josue MCV (RBC) [Entitic vol] 93.5 fL Normal 81.0-99.0 [facility] Comment on above: Performed By: #### C BC #### [facility] [address] [place] [address] Dr. Becky Josue MONO # 0.4 103/ul Normal 0.3-0.8 [facility] Comment on above: Performed By: #### C BC #### [facility] [address] [place] [address] Dr. Becky Josue Monocytes/100 WBC (Bld) 8.8 % Normal 1.7-12.0 [facility] Comment on above: Performed By: #### C BC #### [facility] [address] [place] [address] Dr. Becky Josue NEUT # 2.7 103/ul Normal 1.4-6.5 [facility] Comment on above: Performed By: #### C BC #### [facility] [address] [place] [address] Dr. Becky Josue Neutrophils/100 WBC (Bld) 54.3 % Normal 43.0-75.0 [facility] Comment on above: Performed By: #### C BC #### [facility] [address] [place] [address] Dr. Becky Josue Platelet mean volume (Bld) [Entitic vol] 10.4 fL Normal 9.5-13.5 [facility] Comment on above: Performed By: #### C BC #### [facility] [address] [place] [address] [address] Becky Josue PLT 158 103/ul Normal 150-450 [facility] Comment on above: Performed By: #### C BC #### [facility] [address] [place] [address] [address] Becky Josue RBC 4.65 106/ul Normal 4.20-5.40 [facility] Comment on above: Performed By: #### C BC #### [facility] [address] [address] [address] Becky Josue WBC 4.9 103/ul Normal 4.0-11.0 [facility] Comment on above: Performed By: #### C BC #### [facility] [address] [address] [address] Becky Josue FREE THYROXINE INDEX T7on FTI 2.79 Normal [facility] Comment on above: Performed By: #### L IPID, CMP, T7, TSH ####[facility] [id number] [place] [address]Dr. Becky Josue T3U 30.0 % Normal 23.5-40.5 [facility] Comment on above: Performed By: #### L IPID, CMP, T7, TSH ####[facility] [id number] [place] [id number]. Becky Josue T4 [Mass/Vol] 9.30 ug/dL Normal 5.53-11.00 [facility] Comment on above: Performed By: #### L IPID, CMP, T7, TSH ####[facility] [id number] [place] [address]Dr. Becky Josue GLYCOHEMOGLOBIN A1Con 2020 ADA RECOMMENDATION ADA THERAPEUTIC TARGET 6.0 - 7.0 ACTION SUGGESTED > 7.0 Normal [facility] Comment on above: Performed By: #### A 1C #### [facility] [address] [address] [address] Becky Josue Glucose [Mass/Vol] 229 mg/dL Normal [facility] Comment on above: Performed By: #### A 1C #### [facility] [address] [address] [address] Becky Josue HbA1c (Bld) [Mass fraction] 9.6 % Critically high <=6.0 [facility] Comment on above: Performed By: #### A 1C #### [facility] [address] [address] [address] Becky Josue IRONon 10-03-2021 Iron [Mass/Vol] 62.0 ug/dL Normal 37.0-170.0 [facility] Comment on above: Performed By: #### I MARLYN #### [facility] [address] [address] [address] Becky Josue LIPID PROFILEon 10-03-2021 CHOL-HDL RATIO NORM SEE BELOW Normal [facility] Comment on above: Result Comment: 3.3 - 4.4 LOW RISK 4.4 - 7.1 AVERAGE RISK 7.1 - 11.0 MODERATE RISK >11.0 HIGH RISK Performed By: #### L IPID, CMP, T7, TSH #### [facility] [address] [address] [address] Becky Josue Cholesterol [Mass/Vol] 172 mg/dL Normal <=200 [facility] Comment on above: Performed By: #### L IPID, CMP, T7, TSH #### [facility] [address] [address] [address] Becky Josue Cholesterol in HDL [Mass/Vol] 38 mg/dL Normal [facility] Comment on above: Performed By: #### L IPID, CMP, T7, TSH #### [facility] [address] [address] [address] Becky Josue Cholesterol in LDL [Mass/Vol] 89.0 mg/dL Normal [facility] Comment on above: Performed By: #### L IPID, CMP, T7, TSH #### [facility] [address] [address] [address] Becky Josue Cholesterol.total/Ch olesterol in HDL [Mass ratio] 4.5 {ratio} Normal [facility] Comment on above: Performed By: #### L IPID, CMP, T7, TSH #### [facility] [address] [address] [address] Becky Josue HDL NORMAL > or = 60 mg/dl - LOW CARDIOVASCULAR RISK <40 mg/dl - HIGH CARDIOVASCULAR RISK Normal [facility] Comment on above: Performed By: #### L IPID, CMP, T7, TSH #### [facility] [address] [address] [address] Becky Josue LDL CALC NORMAL SEE BELOW Normal [facility] Comment on above: Result Comment: <100 mg/dl OPTIMAL 100 - 129 mg/dl NEAR OR ABOVE OPTIMAL 130 - 159 mg/dl BORDERLINE HIGH 160 - 189 mg/dl HIGH >190 mg/dl VERY HIGH Performed By: #### L IPID, CMP, T7, TSH #### [facility] [address] [address] [address] Becky Josue Triglyceride [Mass/Vol] 225 mg/dL Critically high <=150 [facility] Comment on above: Performed By: #### L IPID, CMP, T7, TSH #### [facility] [address] [address] [address] Becky Josue VLDL CALC 45.0 mg/dL Normal [facility] Comment on above: Performed By: #### L IPID, CMP, T7, TSH #### [facility] [address] [address] [address] Becky Josue PROF 14(COMP METB)on 021 Albumin [Mass/Vol] 3.1 g/dL Critically low 3.5-5.0 Th e [facility] Comment on above: Performed By: #### L IPID, CMP, T7, TSH #### [facility] [address] [address] [address] Becky Josue Albumin/Globulin [Mass ratio] 0.8 {ratio} Normal [facility] Comment on above: Performed By: #### L IPID, CMP, T7, TSH #### [facility] [address] [address] [address] Becky Josue ALP [Catalytic activity/Vol] 100 U/L Normal 38-126 [facility] Comment on above: Performed By: #### L IPID, CMP, T7, TSH #### [facility] [address] [place] [address] Dr. Becky Josue ALT [Catalytic activity/Vol] 35 U/L Normal 9-52 [facility] Comment on above: Performed By: #### L IPID, CMP, T7, TSH #### [facility] [address] [place] [address] Dr. Becky Josue Anion gap [Moles/Vol] 13.0 mmol/L Normal [facility] Comment on above: Performed By: #### L IPID, CMP, T7, TSH #### [facility] [address] [place] [address] Dr. Becky Josue AST [Catalytic activity/Vol] 27 U/L Normal 14-36 [facility] Comment on above: Performed By: #### L IPID, CMP, T7, TSH #### [facility] [address] [place] [address] Dr. Becky Josue Bilirubin [Mass/Vol] 0.8 mg/dL Normal 0.2-1.3 [facility] Comment on above: Performed By: #### L IPID, CMP, T7, TSH #### [facility] [address] [place] [address] Dr. Becky Josue Calcium [Mass/Vol] 8.9 mg/dL Normal 8.4-10.[address] [facility] Comment on above: Performed By: #### L IPID, CMP, T7, TSH #### [facility] [address] [place] [address] Dr. Becky Josue Chloride [Moles/Vol] 103 mmol/L Normal 98-107 [facility] Comment on above: Performed By: #### L IPID, CMP, T7, TSH #### [facility] [address] [place] [address] Dr. Becky Josue CO2 [Moles/Vol] 30.3 mmol/L Critically high 22.0-30.0 [facility] Comment on above: Performed By: #### L IPID, CMP, T7, TSH #### [facility] [address] [address] [address] Becky Josue Creatinine [Mass/Vol] 0.72 mg/dL Normal 0.52-1.04 [facility] Comment on above: Performed By: #### L IPID, CMP, T7, TSH #### [facility] [address] [place] [address] Dr. Becky Josue EGFR-AF AFGHAN >60 Normal >=60 [facility] Comment on above: Performed By: #### L IPID, CMP, T7, TSH #### [facility] [address] [place] [address] Dr. Becky Josue EGFR-NON AF AFGHAN >60 Normal >=60 [facility] Comment on above: Performed By: #### L IPID, CMP, T7, TSH #### [facility] [address] [place] [address] Dr. Becky Josue Globulin (S) [Mass/Vol] 3.9 g/dL Normal [facility] Comment on above: Performed By: #### L IPID, CMP, T7, TSH #### [facility] [address] [place] [address] Dr. Becky Josue Glucose [Mass/Vol] 261 mg/dL Critically high 74-106 [facility] Comment on above: Performed By: #### L IPID, CMP, T7, TSH #### [facility] [address] [place] [address] Dr. Becky Josue Potassium [Moles/Vol] 4.3 mmol/L Normal 3.4-5.0 [facility] Comment on above: Performed By: #### L IPID, CMP, T7, TSH #### [facility] [address] [place] [address] Dr. Becky Josue Protein [Mass/Vol] 7.0 g/dL Normal 6.1-8.2 [facility] Comment on above: Performed By: #### L IPID, CMP, T7, TSH #### [facility] [address] [address] [address] Becky Josue Sodium [Moles/Vol] 142 mmol/L Normal 137-145 [facility] Comment on above: Performed By: #### L IPID, CMP, T7, TSH #### [facility] [address] [address] [address] Becky Josue Urea nitrogen [Mass/Vol] 22.0 mg/dL Critically high 7.0-17.0 [facility] Comment on above: Performed By: #### L IPID, CMP, T7, TSH #### [facility] [address] [address] [address] Becky Josue Urea nitrogen/Creatinine [Mass ratio] 30.6 mg/mg Normal [facility] Comment on above: Performed By: #### L IPID, CMP, T7, TSH #### [facility] [address] [address] [address] Becky Josue TSHon 10-03-2021 TSH 2.809 uIU/mL Normal 0.470-4.680 [facility] Comment on above: Performed By: #### L IPID, CMP, T7, TSH ####[facility] [id number] [place] [id number] Josue TSH RANGE SEE BELOW Normal [facility] Comment on above: Result Comment: <0.3 4 UIU/ml HYPERTHYROID 0.34-5.60 UIU/ml EUTHYROID >5.60 UIU/ml HYPOTHYROID Performed By: #### L IPID, CMP, T7, TSH ####[facility] [id number] [id number] Josue Outside Colonoscopyon 2019 Outside Colonoscopy 104.170.. [id number] C8#1.00CD:127 Normal [facility] Lab Reportson 05-19-2020 Lab Reports 104.170.. [id number] 80#1.00CD:127 Normal [facility] Ambulatory Clinical Summaryo n 05-09-2020 Ambulatory Clinical Summary {[id number] [facility] Facesheeton 05-09-2020 Facesheet [id number]. [id number] 92#1.00CD:127 [facility] Physician Referralon 020 Physician Referral [id number] 86#1.00CD:127 [facility] Vital Signs Date Time Vital Sign Value Performing Clinician Facility 02-16-2022 12:30-0400 Body height 167.64 cm Ashley Cox Other [facility] 02-16-2022 12:30-0400 Body mass index (BMI) [Ratio] 34.21 kg/m2 Ashley Cox Other [facility] Other 02-16-2022 12:30-0400 Body temperature 97.8 [degF] Ashley Cox Other [facility] Other 02-16-2022 12:30-0400 Body weight 96.16 kg Ashley Cox Other [facility] Other 02-16-2022 12:30-0400 Respiratory rate 18 /min Ashley Cox Other [facility] Other 02-16-2022 12:30-0400 SaO2% (BldA) [Mass fraction] 97 % Ashley Cox Other [facility] Other Encounters Encounter Date Encounter Type Care Provider Facility Start: 04-19-2024 End: 04-19-2024 ambulatory [facility] Start: 11-08-2023 End: 11-08-2023 ambulatory MAGGY ARAIZA [facility] Start: 06-21-2023 End: 06-21-[address] [facility] Start: 09-24-2022 End: 09-25-[address] MARYJANE SUÁREZ Facility:[facility] Start: 02-16-2022 End: 02-16-2022 ambulatory Ashley Cox Other [facility] Start: 02-16-2022 Office outpatient vi sit 15 minutes Ashley Cox [facility] Start: 10-26-2021 End: 10-26-2021 ambulatory Soco Hernandez Other [facility] Start: 10-26-2021 Office outpatient vi sit 5 minutes Soco Hernandez [facility] Start: 10-12-2021 End: 10-13-[address] MARYJANE SUÁREZ Facility:[facility] Start: 10-08-2021 Encounter for genera l adult medical examination without abnormal findings DR MARYJANE SUÁREZ [facility] Start: 10-03-2021 End: 10-04-[address] MARYJANE SUÁREZ Facility:[facility] Start: 10-03-2021 End: 10-04-2021 Encounter for general adult medical examination without abnormal findings DR MARYJANE SUÁREZ Facility:[facility] Payers Date Payer Category Payer Unknown [id number] 1955 Unknown [id number] [id number] [id number] 1955 Unknown [id number] [id number] [id number] 1955 Unknown [id number] [id number] [id number] Medicare [id number] 2.1 [id number] Social History Date Type Detail Facility Sex Assigned At [facility] Other Clinical Notes 10-26-2021 to 04-19-2024 Note Date & Type Note Facility 04-19-2024 Note Patient here for 6 m o follow up PAF, HFpEF, mitral and aortic valve insufficiency, and hypertension. Says she's noticed she's been SOB for about the past week. She takes lasix PRN but has been out of it lately. She's also noticed more LE edema. Says she was working in her yard a lot a week or so ago and was breathing just fine. Denies chest pain, lightheadedness/syncope, and bleeding on Eliquis. Review of Systems Cardiovascular: Positive for dyspnea on exertion (worsening) and leg swelling. Musculoskeletal: Positive for arthritis and joint pain. All other systems reviewed and are negative. [facility] 04-19-2024 Note [place] Cardiology - [facility] Subjective Shirley Brian is a 68 y.o. year old female patient being seen for visit, she reports dyspnea on exertion and occasional edema Patient Active Problem List Diagnosis Atrial fibrillation (CMS/HCC) C. difficile colitis Diabetes mellitus (CMS/HCC) Hypertension Acute on chronic heart failure with preserved ejection fraction (CMS/HCC) LVH (left ventricular hypertrophy) Mitral valve insufficiency and aortic valve insufficiency Anemia Biceps tendinitis of left shoulder Cataract Chronic kidney disease Disorder of intervertebral disc of lumbar spine Diverticular disease of colon Dry eye syndrome Dyslipidemia Enterocolitis due to Clostridium difficile, not specified as recurrent Palpitations Pure hypercholesterolemia Rotator cuff tear, left HPI Patient is a 68-year-old female with history of atrial fibrillation with RVR when she was admitted to the [facility] with diarrhea due to C. difficile colitis and she converted back to sinus rhythm spontaneously. She was started on beta-ole and Eliquis. She also has history of hypertension, hyperlipidemia, diabetes mellitus, and obesity. She denies history of sleep apnea. She states that since the summer started she has been feeling dyspnea on exertion when she walks to a long distance however she has been working in her yard mowing and planting pulling weeds without any problem. She states that she was not very active during wintertime. She denies any chest discomfort at rest or with exertion. She denies orthopnea or paroxysmal nocturnal dyspnea or dizziness or palpitations. She states that she has intermittent legs edema particularly when she drives a lot during the day. She states that she has not been taking Lasix for a few months and she does not have refill of that. ROS All symptoms were reviewed and they were negative except for the positive findings noted above in the history Past Medical History: Diagnosis Date Abnormal ECG Arrhythmia Atrial fibrillation (CMS/HCC) C. difficile colitis Diabetes mellitus (CMS/HCC) Hyperlipidemia Hypertension Past Surgical History: Procedure Laterality Date HERNIA REPAIR HYSTERECTOMY SHOULDER SURGERY TONSILLECTOMY TONSILLECTOMY Family History Problem Relation Name Age of Onset No Known Problems Mother Diabetes Father No Known Problems Sister No Known Problems Brother Social History Tobacco Use Smoking status: Never Smokeless tobacco: Never Substance Use Topics Alcohol use: Yes Comment: occasional Allergies Allergies Allergen Reactions Sulfa (Sulfonamide Antibiotics) Medications Current Outpatient Medications: diclofenac (Voltaren) 75 mg EC tablet, Take 75 mg by mouth if needed., Disp: , Rfl: Eliquis 5 mg tablet, Take 5 mg by mouth in the morning and at bedtime., Disp: , Rfl: furosemide (Lasix) 20 mg tablet, Take 1 tablet (20 mg) by mouth if needed each day (for lower extremity edema)., Disp: 30 tablet, Rfl: 3 magnesium oxide (Mag-Ox) 400 mg (241.3 mg magnesium) tablet, , Disp: , Rfl: metFORMIN (Glucophage) 500 mg tablet, Take 1 tablet by mouth twice a day., Disp: , Rfl: metoprolol tartrate (Lopressor) 50 mg tablet, Take 50 mg by mouth in the morning and at bedtime., Disp: , Rfl: pantoprazole (ProtoNix) 40 mg EC tablet, Take 40 mg by mouth if needed., Disp: , Rfl: pioglitazone (Actos) 30 mg tablet, Take 30 mg by mouth in the morning., Disp: , Rfl: ramipril (Altace) 10 mg capsule, Take 10 mg by mouth in the morning., Disp: , Rfl: simvastatin (Zocor) 20 mg tablet, Take 20 mg by mouth at bedtime., Disp: , Rfl: venlafaxine XR (Effexor-XR) 75 mg 24 hr capsule, , Disp: , Rfl: Objective Visit Vitals BP 126/58 (BP Location: Right arm, Patient Position: Sitting) Pulse 68 Ht 1.676 m (5' 6 ) Wt 98.9 kg (218 lb) SpO2 96% BMI 35.19 kg/m??? Smoking Status Never BSA 2.15 m??? Physical exam: GENERAL: alert and oriented x3, well developed, in no acute distress. HEAD: atraumatic, normocephalic. EYES: SARAH, EOMI. NECK: trachea midline, no JVD present, no carotid bruits present. CARDIAC: S1, S2 present. RRR. No murmur, rubs, or gallops. RESPIRATORY: CTAB, no increased effort of breathing, no rales, rhonchi, or wheezing. ABDOMEN: soft, nontender, nondistended. EXTREMITIES: Trivial edema, small varicose veins bilaterally but not prominent a, No rash/skin discoloration present. NEURO: strength/sensation equal and symmetric in bilateral upper and lower extremities. PSYCH: appropriate mood, affect, and judgement. Recent Labs 09/16/2023 Sodium 139, potassium 4.2, BUN 16, creatinine 0.7, glucose 243, GFR above 60, calcium 8.7 Total bilirubin 0.9, AST 32, ALT 28, alk phos 95, total protein 6.9, Triglyceride 211, cholesterol 146, HDL 32, LDL 72 Imaging and other tests: EK11/08/2023 showed normal sinus rhythm, 1 PAC, poor R progression V1 to V3, (more content not included)... [facility] 11-08-2023 Note [place] Electrophysiology Consult Note [facility] Reason for visit: Afib HPI: Shirley Brian is a 68 y.o. year old with past medical history of Hypertension, diabetes, dyslipidemia, palpitations. She was recently seen at the [facility] for A-fib RVR as she was admitted for diarrhea and palpitations. She was found to have C. difficile and was treated with antibiotics and converted to sinus rhythm on her own. She states she normally would get palpitations when she drinks caffeine and typically avoids caffeine, the day of her admission she believes she was given caffeinated coffee at [facility] and then began experience palpitations while already dealing with her diarrhea so she was seen by ER. She had also been experiencing lower extremity swelling and was diuresed and patient which has resolved. She for some reason was deferred to [facility] for follow up and stress test ordered [...] show any evidence of reversible ischemia. below [id number] at least 4 for age, gender, hypertension, [...] rales, no rhonchi (more content not included)... [facility] 11-08-2023 Note Patient here for 4 m [...] All other systems reviewed and are negative. [facility] 08-08-2023 Note - stable, [facility] - controlled, follow-up with Dr. suárez [facility] 06-28-2023 Note - resolved. This cou ld have been the trigger to her A-fib but she was noted to have palpitations previously and intentionally avoided for that reason [facility] 06-28-2023 Note -[id number] at [address] 4 for age, gender, hypertension, diabetes - No AAD on board - continue Eliquis 5 mg, Toprol tartrate 50 mg twice daily [facility] 06-21-2023 Note Patient here for [facility] for new onset afib w/ RVR. She was also seen by [facility] cardiology last week somehow. She [...] All other systems reviewed and are negative. [facility] 06-21-2023 Note [place] Electrophysiology Consult Note [facility] Reason for visit: H follow up, AFIB vs flutter RVR possibly 2/2 c-diff infection, has hx palpitations HPI: Shirley Brian is a 67 y.o. year old with past medical history of Hypertension, diabetes, dyslipidemia, palpitations. She was recently seen at the [facility] for A-fib RVR as she was admitted for diarrhea and palpitations. She was found to have C. difficile and was treated with antibiotics and converted to sinus rhythm on her own. She states she normally would get palpitations when she drinks caffeine and typically avoids caffeine, the day of her admission she believes she was given caffeinated coffee at [employer] and then began experience palpitations while already dealing with her diarrhea so she was seen by ER. She had also been experiencing lower extremity swelling and was diuresed and patient which has resolved. She for some reason was deferred to [facility] for follow up and stress test ordered but not done she has been feeling well with no complaints of chest pain, shortness of breath, BERRY, orthopnea, palpitations. She has noticed some LE edema. [id number] at least 4 for age, gender, hypertension, [...] Diagnosis Date Abnormal ECG Arrhythmia Atrial fibrillation ([facility]) C. difficile colitis Diabetes mellitus ([facility]) Hyperlipidemia Hypertension PSH: No past surgical history [...] tender Musculoskeletal Inspection: (more content not included)... [facility] 02-16-2022 Evaluation note Encounter Date Diagnosis Assessment [...] exam and duration of symptoms. May use [place] or Flonase as directed. May use Zofran [...] Patient care instructions given in writting by [employer] [facility] document [facility] Other 12-06-2021 Evaluation note* Encounter Date Diagnosis [...] Patient care instructions given in writting by [facility] document. [facility] Other History general Narrative - Reported* Type Description Date Medical History Diabetes Medical History HTN (hypertension) Medical History Anxiety Medical History Uterine cancer Surgical History hysterectomy Surgical History C section Surgical History tonsillectomy Surgical History appendectomy Surgical History cholecystectomy Surgical History colonoscopy Surgical History biopsy Hospitalization History pneumonia Hospitalization History see above [facility] Other Summary Purpose Family History No Family History Records FoundNo Family History Records FoundNo Family History Records Found Advance Directives No Advanced Directives Records FoundNo Advanced Directives Records FoundNo Advanced Directives Records Found Additional Source Comments INFORMATION SOURCE (unrecogn ized section and content) DATE CREATED AUTHOR 06/18/2020 [employer] [facility] DATE CREATED AUTHOR AUTHOR'S ORGANIZ ATION 10/01/2022 Lars Guerrero [facility] DATE CREATED AUTHOR AUTHOR'S ORGANIZ ATION 04/20/2024 [facility] REASON FOR VISIT (unrecogniz ed section and [...] BE BASED ON THE PRIMARY CLINICAL RECORDS. [employer] [facility]. provides no warranty or guarantee of the accuracy or completeness of information in this document.
[2024-06-22 10:54] LABS: Internal Control Within Normal Limits; SARS-CoV-2 Ag NEGATIVE (NEGATIVE)
== END 2024-06-22 10:16 | disposition home or self-care (01) ==
LOC: LAB 10:15
PROVIDERS: PCP Family Medicine; Visit Provider Family Medicine
DX: J20.9 Acute bronchitis, unspecified (principal)
CPT/HCPCS: 87811

== ENCOUNTER 2024-07-04 15:00 | Outpatient (OUT) | payer OTHER, SELFPAY ==
--- NOTE | 2024-07-04 15:04 | XR_ITS ---
The [address] [address] Patient Name: CONNIE WISE MRN: [id number] date: 1955 Sex: F Assigned Patient Location: [facility] Current Patient Location: Accession/Order Number: [id number] Exam Date: 07/04/2024 15:10 Report Date: 07/09/2024 07:23 At the request of: MARYJANE REYNOLDS Procedure: XR abdomen 1V EXAMINATION: XR abdomen 1V HISTORY: Chronic Kidney Disease N18.9 COMPARISON: No relevant comparison available. FINDINGS: KIDNEY/URETER - RIGHT: No visible renal or ureteral calcifications. KIDNEY/URETER - LEFT: No visible renal or ureteral calcifications. PELVIS: No visible ureteral calcifications. Any visible calcifications favor phleboliths. BOWEL: No abnormal dilation or deviation. BONES: Moderate diffuse spondylosis and facet osteoarthropathy of the spine. Bilateral sacroiliac joint sclerosis. Mild bilateral hip osteoarthritis OTHER: Negative. No abnormal gaseous collections. XR/XR abdomen 1V IMPRESSION: No definite urinary tract calculi Electronically authenticated by: MAISHA ALBRIGHT Date: 07/09/2024 07:23
--- OUTSIDE RECORDS SUMMARY | 2024-07-04 15:19 | XMS_ITS | CCD ---
Author Organization [facility] Care Team Providers Care Data Management Consultant Name Role Phone Soco Hernandez Unavailable Kenny [...] Reaction(s) Facility (1 source) Sulfacetamide Drug Allergy [facility] oboxo Other (1 source) Sulfonamides (Antibiotic) Drug allergy (disorder) [address] [facility] Repository (1 source) Sulfonamides (Antibiotic); Translations: [SULFA (SULFONAMIDE ANTIBIOTICS)] Propensity to adverse reactions to drug (disorder) 9 [facility] Repository Medications Current Medications Medication Drug Class(es) Dates Sig (Normalized) Sig (Original) [id number] 200 actuat albuterol 0.09 mg/actuat metered dose [...] 1.5 mg/ml oral solution (1 source) Uncompetitive Y-cuxjvv-Y-aspartate Receptor Antagonist, Sigma-1 Agonist Start: 02-16-2022 take 10 mL by mouth every eight hours [place] DM 7.5-7.5 MG/5ML 10 mL Orally every [...] every six hours as needed for pain [place] 5-325 MG 1 tablet Orally every 6 hrs as needed for pain Jun, Not-Taking Start: 07-09-2015 take 1 tablet by abelino th every six hours as needed for pain [place] 5-325 MG 1 tablet Orally every 6 [...] Range Facility Office Visiton 04-19-2024 Follow-up visit [id number] Shirley Brian 1955 F Date Provider Department Center 04/19/2024 [id number] MUNSON Family History Problem Relation Age of Onset No Known Problems Mother Diabetes Father No Known Problems Sister No Known Problems Brother Family Status - Relation Status Age at Mother Father Sister Brother Level of Service:30239 [place] OFFICE/OUTPATIENT ESTABLISHED MOD MDM 30 MIN Normal [facility] Office Visiton 11-08-2023 Follow-up visit [id number] Shirley Brian 1955 F Date Provider Department Center 11/08/2023 MAGGY BERNAL Family History Problem Relation Age of Onset No Known Problems Mother Diabetes Father No Known Problems Sister No Known Problems Brother Family Status - Relation Status Age at Mother Father Sister Brother Level of Service:99329 [place] OFFICE/OUTPATIENT NEW MODERATE MDM 45 MINUTES Normal [facility] 36on 08-07-2023 36 Attempted to call, no answer, cannot leave VM as it is full. Stress showed no acute concerns. There was a defect which indicates she may have had an UT in the past. We can proceed with a cath given she has never had one to assess if she would like , otherwise we can also continue to manage medically. Let me know if she has preference, if she wants to do whatever we think, I will order a cath as it is better to know than not. Normal [facility] 36on 08-04-2023 36 Patient calling for stress test results. 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 Please advise. Thank you. Normal [facility] Office Visiton 06-21-2023 Follow-up visit [id number] Shirley Brian 1955 F Date Provider Department Center 06/21/2023 JIM CURRY CARD [facility] Family History Problem Relation Age of Onset No Known Problems Mother Diabetes Father No Known Problems Sister No Known Problems Brother Family Status - Relation Status Age at Mother Father Sister Brother Level of Service:57883 [place] OFFICE/OUTPATIENT ESTABLISHED MOD MDM 30-39 MIN Normal [facility] INSULINon 09-25-2022 Insulin 14.1 uIU/mL Normal 2.6-24.9 [facility] Comment on above: Performed By: #### I NSULIN #### [facility] [address] [place], [place] [address] Dr. Becky Josue CBC AUTO DIFFon 09-24-2022 BASO # 0.0 103/ul Normal 0.0-0.1 [facility] Comment on above: Performed By: #### C BC ####[facility] [address] [place] [address]DrBrayan Josue Basophils/100 WBC (Bld) 0.5 % Normal 0.2-2.[address] [facility] Comment on above: Performed By: #### C BC ####[facility] [address] [place] [id number] Josue EO # 0.1 103/ul Normal 0.0-0.[address] [facility] Comment on above: Performed By: #### C BC ####[facility] [address] [place] [id number] Josue Eosinophils/100 WBC (Bld) 3.3 % Normal 0.9-7.[address] [facility] Comment on above: Performed By: #### C BC ####[facility] Gillrytpzj[address] [place] [address]DrBrayan Josue Erythrocyte distribution width (RBC) [Ratio] 14.3 % Normal 11.0-15.[address] [facility] Comment on above: Performed By: #### C BC ####[facility] [address] [place] [address]DrBrayan Josue Hematocrit (Bld) [Volume fraction] 42.6 % Normal 36.0-48.0 [facility] Comment on above: Performed By: #### C BC ####[facility] [address] [place] [address]DrBrayan Josue Hemoglobin (Bld) [Mass/Vol] 13.8 g/dL Normal 12.0-16.0 [facility] Comment on above: Performed By: #### C BC ####[facility] [address] [place], [place] [address]DrBrayan Josue IG # 0.02 10e3/ul Normal 0.00-0.03 [facility] Comment on above: Performed By: #### C BC ####[facility] [address] [place], [place] [address]DrBrayan Josue IG % 0.5 % Normal 0.0-0.5 [facility] Comment on above: Performed By: #### C BC ####[facility] [address] [place], [place] [address]DrBrayan Josue LYMPH # 1.1 103/ul Critically low 1.2-3.8 [facility] Comment on above: Performed By: #### C BC ####[facility] Iauce[address]cl[address] [place], [place] [address]DrBrayan Josue Lymphocytes/100 WBC (Bld) 28.0 % Normal 20.5-60.0 [facility] Comment on above: Performed By: #### C BC ####[facility] [address] [place], [place] [address]DrBrayan Josue MANUAL DIFF REQ NO Normal [facility] Comment on above: Performed By: #### C BC ####[facility] [address] [place], [place] [address]DrBrayan Josue MCH (RBC) [Entitic mass] 29.3 pg Normal 26.7-34.0 [facility] Comment on above: Performed By: #### C BC ####[facility] [address] [place] [id number]. Becky Joselo MCHC (RBC) [Mass/Vol] 32.4 g/dL Normal 29.9-35.2 [facility] Comment on above: Performed By: #### C BC ####[facility] [address] [place] [id number] Josue MCV (RBC) [Entitic vol] 90.4 fL Normal 81.0-99.0 [facility] Comment on above: Performed By: #### C BC ####[facility] [address]fr[address] [place] [address]DrBrayan Josue MONO # 0.3 103/ul Normal 0.3-0.8 [facility] Comment on above: Performed By: #### C BC ####[facility] I[address] [place], [place] [address]Dr. Becky Josue Monocytes/100 WBC (Bld) 8.3 % Normal 1.7-12.0 [facility] Comment on above: Performed By: #### C BC ####[facility] Z[address]yurs[address] [place], [place] [address]Dr. Becky Josue NEUT # 2.4 103/ul Normal 1.4-6.5 [facility] Comment on above: Performed By: #### C BC ####[facility] [address] [place], [place] [address]DrBrayan Josue Neutrophils/100 WBC (Bld) 59.4 % Normal 43.0-75.[address] [facility] Comment on above: Performed By: #### C BC ####[facility] [address] [place], [place] [id number] Josue Platelet mean volume (Bld) [Entitic vol] 10.3 fL Normal 9.5-13.[address] [facility] Comment on above: Performed By: #### C BC ####[facility] [address] [place] [id number] Josue PLT 149 103/ul Critically low 150-450 [facility] Comment on above: Performed By: #### C BC ####[facility] [address] [place] [phone]. Kellenkwadwo Joselo RBC 4.71 106/ul Normal 4.20-5.[address] [facility] Comment on above: Performed By: #### C BC ####[facility] [address]ks[address]rb[address] [place] [phone]. Becky Josue WBC 4.0 103/ul Normal 4.0-11.0 [facility] Comment on above: Performed By: #### C BC ####[facility] [address] [place] [phone]. Becky Josue FREE THYROXINE INDEX T7on FTI 3.36 Normal 1.30-4.50 [facility] Comment on above: Performed By: #### L IPID, CMP, TSH, T7 ####[facility] [address] [place] [address]Dr. Becky Josue T3U 32.0 % Normal 30.0-39.0 [facility] Comment on above: Performed By: #### L IPID, CMP, TSH, T7 ####[facility] [address] [place] [phone] Josue T4 [Mass/Vol] 10.50 ug/dL Normal 4.80-13.90 [facility] Comment on above: Performed By: #### L IPID, CMP, TSH, T7 ####[facility] [address] [place] [phone] Josue GLYCOHEMOGLOBIN A1Con 2021 ADA RECOMMENDATION SEE BELOW Normal [facility] Comment on above: Result Comment: ADA RECOMMENDED LIMIT 4.0 - 6.0 ADA THERAPEUTIC TARGET < 7.0 ACTION SUGGESTED > 7.0 Performed By: #### A 1C #### [facility] [address] [place] [address] [address] Becky Josue Glucose [Mass/Vol] 237 mg/dL Normal [facility] Comment on above: Performed By: #### A 1C #### [facility] [address] [place] [address] [address] Becky Josue HbA1c (Bld) [Mass fraction] 9.9 % Critically high 4.5-6.2 [facility] Comment on above: Performed By: #### A 1C #### [facility] [address] [place] [address] [address] Becky Josue IRONon 09-24-2022 Iron [Mass/Vol] 55.0 ug/dL Normal 50.0-170.0 [facility] Comment on above: Performed By: #### I ROBERT CLINE #### [facility] [address] [place] [address] [address] Becky Josue LIPID PROFILEon 09-24-2022 CHOL-HDL RATIO NORM SEE BELOW Normal [facility] Comment on above: Result Comment: 3.3 - 4.4 LOW RISK 4.4 - 7.1 AVERAGE RISK 7.1 - 11.0 MODERATE RISK >11.0 HIGH RISK Performed By: #### L IPID, CMP, TSH, T7 ####[facility] [address] [place] [phone]. Becky Josue Cholesterol [Mass/Vol] 171 mg/dL Normal <=200 [facility] Comment on above: Performed By: #### L IPID, CMP, TSH, T7 ####[facility] [address] [place] [phone]. Becky Josue Cholesterol in HDL [Mass/Vol] 38 mg/dL Critically low 40-60 [facility] Comment on above: Performed By: #### L IPID, CMP, TSH, T7 ####[facility] [address] [place] [phone]. Becky Josue Cholesterol in LDL [Mass/Vol] 101.6 mg/dL Normal [facility] Comment on above: Performed By: #### L IPID, CMP, TSH, T7 ####[facility] [address] [place] [phone]. Becky Josue Cholesterol.total/Ch olesterol in HDL [Mass ratio] 4.5 {ratio} Normal [facility] Comment on above: Performed By: #### L IPID, CMP, TSH, T7 ####[facility] [address] [place] [phone]. Becky Josue HDL NORMAL > or = 60 mg/dl - LOW CARDIOVASCULAR RISK <40 mg/dl - HIGH CARDIOVASCULAR RISK Normal [facility] Comment on above: Performed By: #### L IPID, CMP, TSH, T7 ####[facility] [address] [place] [phone]. Becky Josue LDL CALC NORMAL SEE BELOW Normal [facility] Comment on above: Result Comment: <100 mg/dl OPTIMAL 100 - 129 mg/dl NEAR OR ABOVE OPTIMAL 130 - 159 mg/dl BORDERLINE HIGH 160 - 189 mg/dl HIGH >190 mg/dl VERY HIGH Performed By: #### L IPID, CMP, TSH, T7 ####[facility] [address] [place] [address]Dr. Becky Josue Triglyceride [Mass/Vol] 157 mg/dL Critically high <=150 [facility] Comment on above: Performed By: #### L IPID, CMP, TSH, T7 ####[facility] [address] [place] [address]Dr. Becky Josue VLDL CALC 31.4 mg/dL Normal [facility] Comment on above: Performed By: #### L IPID, CMP, TSH, T7 ####[facility] [address]hc[address] [place] [phone]. Becky Josue PROF 14(COMP METB)on 022 Albumin [Mass/Vol] 3.4 g/dL Normal 3.4-5.0 [facility] Comment on above: Performed By: #### L IPID, CMP, TSH, T7 ####[facility] [address]ctzb[address] [place] [phone]. Becky Josue Albumin/Globulin [Mass ratio] 0.9 {ratio} Normal [facility] Comment on above: Performed By: #### L IPID, CMP, TSH, T7 ####[facility] [address]els[address] [place] [phone]. Becky Josue ALP [Catalytic activity/Vol] 106 U/L Normal 46-116 [facility] Comment on above: Performed By: #### L IPID, CMP, TSH, T7 ####[facility] [address]ld[address] [place] [address]Dr. Becky Josue ALT [Catalytic activity/Vol] 39 U/L Normal 14-[address] [facility] Comment on above: Performed By: #### L IPID, CMP, TSH, T7 ####[facility] [address] [place] [address]Dr. Becky Josue Anion gap [Moles/Vol] 6.9 mmol/L Normal [facility] Comment on above: Performed By: #### L IPID, CMP, TSH, T7 ####[facility] Z[address] [place], [place] [address]Dr. Becky Josue AST [Catalytic activity/Vol] 44 U/L Critically high 15-[address] [facility] Comment on above: Performed By: #### L IPID, CMP, TSH, T7 ####[facility] [address] [place], [place] [address]Dr. Becky Josue Bilirubin [Mass/Vol] 1.1 mg/dL Critically high 0.2-1.[address] [facility] Comment on above: Performed By: #### L IPID, CMP, TSH, T7 ####[facility] [address]yr[address] [place], [place] [address]Dr. Becky Josue Calcium [Mass/Vol] 9.4 mg/dL Normal 8.5-10.1 [facility] Comment on above: Performed By: #### L IPID, CMP, TSH, T7 ####[facility] [address]ch[address] [place], [place] [address]Dr. Becky Josue Chloride [Moles/Vol] 103 mmol/L Normal 98-[address] [facility] Comment on above: Performed By: #### L IPID, CMP, TSH, T7 ####[facility] [address] [place] [address]Dr. Becky Josue CO2 [Moles/Vol] 31.3 mmol/L Normal 21.0-32.0 [facility] Comment on above: Performed By: #### L IPID, CMP, TSH, T7 ####[facility] [address]bkowhd[address] [place] [phone]. Becky Josue Creatinine [Mass/Vol] 0.72 mg/dL Normal 0.55-1.02 [facility] Comment on above: Performed By: #### L IPID, CMP, TSH, T7 ####[facility] [address] [place] [phone]. Becky Joselo EGFR-AF SALVADOREAN >60 Normal >=60 [facility] [place] [facility] Comment on above: Performed By: #### L IPID, CMP, TSH, T7 ####[facility] [address]zeb[address] [place] [phone]. Kellenkwadwo Joselo EGFR-NON AF SALVADOREAN >60 Normal >=60 [facility] Comment on above: Performed By: #### L IPID, CMP, TSH, T7 ####[facility] [address]mar[address] [place] [address]Dr. Becky Josue Globulin (S) [Mass/Vol] 4.0 g/dL Normal [facility] Comment on above: Performed By: #### L IPID, CMP, TSH, T7 ####[facility] [address] [place], [place] [address]Dr. Becky Josue Glucose [Mass/Vol] 315 mg/dL Critically high 74-106 T [facility] Comment on above: Performed By: #### L IPID, CMP, TSH, T7 ####[facility] [address]vg[address] [place] [address]Dr. Becky Josue Potassium [Moles/Vol] 4.2 mmol/L Normal 3.5-5.1 [facility] Comment on above: Performed By: #### L IPID, CMP, TSH, T7 ####[facility] [address]jesr[address] [place] [address]Dr. Becky Josue Protein [Mass/Vol] 7.4 g/dL Normal 6.4-8.2 [facility] Comment on above: Performed By: #### L IPID, CMP, TSH, T7 ####[facility] [address] [place] [address]Dr. Becky Josue Sodium [Moles/Vol] 137 mmol/L Normal 136-145 [facility] Comment on above: Performed By: #### L IPID, CMP, TSH, T7 ####[facility] [address] [place] [phone]. Becky Josue Urea nitrogen [Mass/Vol] 14.0 mg/dL Normal 7.0-18.0 [facility] Comment on above: Performed By: #### L IPID, CMP, TSH, T7 ####[facility] [address] [place] [phone]. Becky Josue Urea nitrogen/Creatinine [Mass ratio] 19.4 mg/mg Normal [facility] Comment on above: Performed By: #### L IPID, CMP, TSH, T7 ####[facility] [address] [place] [phone]. Becky Josue TSHon 09-24-2022 TSH 2.117 uIU/mL Normal 0.358-3.740 [facility] Comment on above: Performed By: #### L IPID, CMP, TSH, T7 ####[facility] [address]spzn[address] [place] [phone]. Becky Josue VITAMIN D 25 OHon 09-24-2022 VIT D 25-OH 21.3 ng/mL Normal [facility] Comment on above: Performed By: #### I MARLYN VITAD #### [facility] [address] [place] [address] [address] Becky Josue VIT D RANGES SEE BELOW Normal [facility] Comment on above: Result Comment: <20 ng/mL Vit D deficient 20 - <30 ng/mL Vit D insufficient 30 - 100 ng/mL Vit D sufficient >100 ng/mL Potential Toxicity Performed By: #### Ryan CLINE VITAD #### [facility] [address] [place] [address] [address] Becky Josue COVID Quick Testingon 2020 Result Negative Yurbuds Other MG MAMM SCREEN 3D SVEN CADon 10-12-2021 MG MAMM SCREEN 3D SVEN CAD Patient: SHIRLEY BRIANBrayan Exam Date: 10/12/2021 : 1955 Gender:F Ordering : DR MARYJANE SUÁREZ . Admission #: [id number] Family : Order #: [id number] CLICK HERE TO VIEW EXAM RADIOLOGY REPORT [...] breast cancer at age 66. LOCATION: [facility] BREAST COMPOSITION: Scattered areas fibroglandular density. [...] M.D. on 10/13/2021 at 12:22 Normal [facility] CBC AUTO DIFFon 10-03-2021 BASO # 0.0 103/ul Normal 0.0-0.1 [facility] Comment on above: Performed By: #### C BC #### [facility] [address] [place] [address] [address] Becky Josue Basophils/100 WBC (Bld) 0.4 % Normal 0.2-2.0 [facility] Comment on above: Performed By: #### C BC #### [facility] [address] [place] [address] [address] Becky Josue EO # 0.2 103/ul Normal 0.0-0.7 [facility] Comment on above: Performed By: #### C BC #### [facility] [address] [place] [address] [address] Becky Josue Eosinophils/100 WBC (Bld) 4.1 % Normal 0.9-7.0 [facility] Comment on above: Performed By: #### C BC #### [facility] [address] [place] [address] Dr. Becky Josue Erythrocyte distribution width (RBC) [Ratio] 14.5 % Normal 11.0-15.0 [facility] Comment on above: Performed By: #### C BC #### [facility] [address] [place] [address] Dr. Becky Josue Hematocrit (Bld) [Volume fraction] 43.5 % Normal 36.0-48.[address] [facility] Comment on above: Performed By: #### C BC #### [facility] [address] [place] [address] Dr. Becky Josue Hemoglobin (Bld) [Mass/Vol] 13.7 g/dL Normal 12.0-16.[address] [facility] Comment on above: Performed By: #### C BC #### [facility] [address] [place] [address] Dr. Becky Josue IG # 0.02 10e3/ul Normal 0.00-0.[address] [facility] Comment on above: Performed By: #### C BC #### [facility] [address] [place] [address] Dr. Becky Josue IG % 0.4 % Normal 0.0-0.[address] [facility] Comment on above: Performed By: #### C BC #### [facility] [address] [place] [address] Dr. Becky Josue LYMPH # 1.6 103/ul Normal 1.2-3.[address] [facility] Comment on above: Performed By: #### C BC #### [facility] [address] [place] [address] Dr. Becky Josue Lymphocytes/100 WBC (Bld) 32.0 % Normal 20.5-60.[address] [facility] Comment on above: Performed By: #### C BC #### [facility] [address] [place] [address] Dr. Becky Josue MANUAL DIFF REQ NO Normal [facility] Comment on above: Performed By: #### C BC #### [facility] [address] [place] [address] Dr. Becky Josue MCH (RBC) [Entitic mass] 29.5 pg Normal 26.7-34.0 [facility] Comment on above: Performed By: #### C BC #### [facility] [address] [place] [address] Dr. Becky Josue MCHC (RBC) [Mass/Vol] 31.5 g/dL Normal 29.9-35.2 [facility] Comment on above: Performed By: #### C BC #### [facility] [address] [place] [address] Dr. Becky Josue MCV (RBC) [Entitic vol] 93.5 fL Normal 81.0-99.0 [facility] Comment on above: Performed By: #### C BC #### [facility] [address] [place] [address] Dr. Becky Josue MONO # 0.4 103/ul Normal 0.3-0.8 [facility] Comment on above: Performed By: #### C BC #### [facility] [address] [place] [address] Dr. Becky Josue Monocytes/100 WBC (Bld) 8.8 % Normal 1.7-12.0 [facility] Comment on above: Performed By: #### C BC #### [facility] [address] [place] [address] Dr. Becky Josue NEUT # 2.7 103/ul Normal 1.4-6.[address] [facility] Comment on above: Performed By: #### C BC #### [facility] Laboratory [address] [place] [address] Dr. Becky Josue Neutrophils/100 WBC (Bld) 54.3 % Normal 43.0-75.0 [facility] Comment on above: Performed By: #### C BC #### [facility] Laboratory [address] [place] [address] Dr. Becky Josue Platelet mean volume (Bld) [Entitic vol] 10.4 fL Normal 9.5-13.5 [facility] Comment on above: Performed By: #### C BC #### [facility] Laboratory [address] [address] [address] Becky Josue PLT 158 103/ul Normal 150-[address] [facility] Comment on above: Performed By: #### C BC #### [facility] Laboratory [address] [address] [address] Becky Josue RBC 4.65 106/ul Normal 4.20-5.40 [facility] Comment on above: Performed By: #### C BC #### [facility] Laboratory [address] [address] [address] Becky Josue WBC 4.9 103/ul Normal 4.0-11.0 [facility] Comment on above: Performed By: #### C BC #### [facility] Laboratory [address] [address] [address] Becky Josue FREE THYROXINE INDEX T7on FTI 2.79 Normal [facility] Comment on above: Performed By: #### L IPID, CMP, T7, TSH ####[facility] [id number] [address]Dr. Becky Josue T3U 30.0 % Normal 23.5-40.5 [facility] Comment on above: Performed By: #### L IPID, CMP, T7, TSH ####[facility] [id number] [id number]. Becky Josue T4 [Mass/Vol] 9.30 ug/dL Normal 5.53-11.00 [facility] Comment on above: Performed By: #### L IPID, CMP, T7, TSH ####[facility] [id number] [address]Dr. Becky Josue GLYCOHEMOGLOBIN A1Con 2020 ADA RECOMMENDATION ADA THERAPEUTIC TARGET 6.0 - 7.0 ACTION SUGGESTED > 7.0 Normal [facility] Comment on above: Performed By: #### A 1C #### [facility] Laboratory [address] [address] [address] Becky Josue Glucose [Mass/Vol] 229 mg/dL Normal [facility] Comment on above: Performed By: #### A 1C #### [facility] Laboratory [address] [address] [address] Becky Josue HbA1c (Bld) [Mass fraction] 9.6 % Critically high <=6.0 [facility] Comment on above: Performed By: #### A 1C #### [facility] Laboratory [address] [address] [address] Becky Josue IRONon 10-03-2021 Iron [Mass/Vol] 62.0 ug/dL Normal 37.0-170.0 [facility] Comment on above: Performed By: #### I MARLYN #### [facility] Laboratory [address] [address] [address] Becky Josue LIPID PROFILEon 10-03-2021 CHOL-HDL RATIO NORM SEE BELOW Normal [facility] Comment on above: Result Comment: 3.3 - 4.4 LOW RISK 4.4 - 7.1 AVERAGE RISK 7.1 - 11.0 MODERATE RISK >11.0 HIGH RISK Performed By: #### L IPID, CMP, T7, TSH #### [facility] Laboratory [address] [address] [address] Becky Josue Cholesterol [Mass/Vol] 172 mg/dL Normal <=200 [facility] Comment on above: Performed By: #### L IPID, CMP, T7, TSH #### [facility] Laboratory [address] [address] [address] Becky Josue Cholesterol in HDL [Mass/Vol] 38 mg/dL Normal [facility] Comment on above: Performed By: #### L IPID, CMP, T7, TSH #### [facility] Laboratory [address] [address] [address] Becky Josue Cholesterol in LDL [Mass/Vol] 89.0 mg/dL Normal [facility] Comment on above: Performed By: #### L IPID, CMP, T7, TSH #### [facility] Laboratory [address] [address] [address] Becky Josue Cholesterol.total/Ch olesterol in HDL [Mass ratio] 4.5 {ratio} Normal [facility] Comment on above: Performed By: #### L IPID, CMP, T7, TSH #### [facility] [address] [address] [address] Becky Josue HDL NORMAL > or = 60 mg/dl - LOW CARDIOVASCULAR RISK <40 mg/dl - HIGH CARDIOVASCULAR RISK Normal [facility] Comment on above: Performed By: #### L IPID, CMP, T7, TSH #### [facility] [address] [address] [address] Becky Josue LDL CALC NORMAL SEE BELOW Normal [facility] Comment on above: Result Comment: <100 mg/dl OPTIMAL 100 - 129 mg/dl NEAR OR ABOVE OPTIMAL 130 - 159 mg/dl BORDERLINE HIGH 160 - 189 mg/dl HIGH >190 mg/dl VERY HIGH Performed By: #### L IPID, CMP, T7, TSH #### [facility] [address] [address] [address] Becky Josue Triglyceride [Mass/Vol] 225 mg/dL Critically high <=150 [facility] Comment on above: Performed By: #### L IPID, CMP, T7, TSH #### [facility] [address] [address] [address] Becky Josue VLDL CALC 45.0 mg/dL Normal [facility] Comment on above: Performed By: #### L IPID, CMP, T7, TSH #### [facility] [address] [address] [address] Becky Josue PROF 14(COMP METB)on 021 Albumin [Mass/Vol] 3.1 g/dL Critically low 3.5-5.[address] [facility] Comment on above: Performed By: #### L IPID, CMP, T7, TSH #### [facility] [address] [address] [address] Becky Josue Albumin/Globulin [Mass ratio] 0.8 {ratio} Normal [facility] Comment on above: Performed By: #### L IPID, CMP, T7, TSH #### [facility] [address] [address] [address] Becky Josue ALP [Catalytic activity/Vol] 100 U/L Normal 38-126 [facility] Comment on above: Performed By: #### L IPID, CMP, T7, TSH #### [facility] Laboratory [address] [place] [address] Dr. Becky Josue ALT [Catalytic activity/Vol] 35 U/L Normal 9-[address] [facility] Comment on above: Performed By: #### L IPID, CMP, T7, TSH #### [facility] Laboratory [address] [place] [address] Dr. Becky Josue Anion gap [Moles/Vol] 13.0 mmol/L Normal [facility] Comment on above: Performed By: #### L IPID, CMP, T7, TSH #### [facility] [address] [place] [address] Dr. Becky Josue AST [Catalytic activity/Vol] 27 U/L Normal 14-[address] [facility] Comment on above: Performed By: #### L IPID, CMP, T7, TSH #### [facility] [address] [place] [address] Dr. Becky Josue Bilirubin [Mass/Vol] 0.8 mg/dL Normal 0.2-1.3 [facility] Comment on above: Performed By: #### L IPID, CMP, T7, TSH #### [facility] [address] [place] [address] Dr. Becky Josue Calcium [Mass/Vol] 8.9 mg/dL Normal 8.4-10.2 [facility] Comment on above: Performed By: #### L IPID, CMP, T7, TSH #### [facility] [address] [place] [address] Dr. Becky Josue Chloride [Moles/Vol] 103 mmol/L Normal 98-[address] [facility] Comment on above: Performed By: #### L IPID, CMP, T7, TSH #### [facility] [address] [place] [address] Dr. Becky Josue CO2 [Moles/Vol] 30.3 mmol/L Critically high 22.0-30.0 [facility] Comment on above: Performed By: #### L IPID, CMP, T7, TSH #### [facility] [address] [address] [address] Becky Josue Creatinine [Mass/Vol] 0.72 mg/dL Normal 0.52-1.04 [facility] Comment on above: Performed By: #### L IPID, CMP, T7, TSH #### [facility] Laboratory [address] [place] [address] Dr. eBcky Josue EGFR-AF SALVADOREAN >60 Normal >=60 [facility] Comment on above: Performed By: #### L IPID, CMP, T7, TSH #### [facility] [address] [place] [address] Dr. Becky Josue EGFR-NON AF SALVADOREAN >60 Normal >=60 [facility] Comment on above: Performed By: #### L IPID, CMP, T7, TSH #### [facility] [address] [place] [address] Dr. Becky Josue Globulin (S) [Mass/Vol] 3.9 g/dL Normal [facility] Comment on above: Performed By: #### L IPID, CMP, T7, TSH #### [facility] [address] [place] [address] Dr. Becky Josue Glucose [Mass/Vol] 261 mg/dL Critically high 74-106 T [facility] Comment on above: Performed By: #### L IPID, CMP, T7, TSH #### [facility] [address] [place] [address] Dr. Becky Josue Potassium [Moles/Vol] 4.3 mmol/L Normal 3.4-5.0 [facility] Comment on above: Performed By: #### L IPID, CMP, T7, TSH #### [facility] [address] [place] [address] Dr. Becky Josue Protein [Mass/Vol] 7.0 g/dL Normal 6.1-8.2 [facility] Comment on above: Performed By: #### L IPID, CMP, T7, TSH #### [facility] [address] [address] [address] Becky Josue Sodium [Moles/Vol] 142 mmol/L Normal 137-145 [facility] Comment on above: Performed By: #### L IPID, CMP, T7, TSH #### [facility] [address] [address] [address] Becky Josue Urea nitrogen [Mass/Vol] 22.0 mg/dL Critically high 7.0-17.0 [facility] Comment on above: Performed By: #### L IPID, CMP, T7, TSH #### [facility] [address] [address] [address] Becky Josue Urea nitrogen/Creatinine [Mass ratio] 30.6 mg/mg Normal [facility] Comment on above: Performed By: #### L IPID, CMP, T7, TSH #### [facility] [address] [address] [address] Becky Josue TSHon 10-03-2021 TSH 2.809 uIU/mL Normal 0.470-4.680 [facility] Comment on above: Performed By: #### L IPID, CMP, T7, TSH ####[facility] [id number] [id number] Josue TSH RANGE SEE BELOW Normal [facility] Comment on above: Result Comment: <0.3 4 UIU/ml HYPERTHYROID 0.34-5.60 UIU/ml EUTHYROID >5.60 UIU/ml HYPOTHYROID Performed By: #### L IPID, CMP, T7, TSH ####[facility] [id number] [address]DrBrayan Josue Outside Colonoscopyon 2019 Outside Colonoscopy 104.170.. [id number] C8#1.00CD:[address] [facility] Lab Reportson 05-19-2020 Lab Reports [id number].. [id number] 80#1.00CD:[address] [facility] Ambulatory Clinical Summaryo n 05-09-2020 Ambulatory Clinical Summary {[id number]}CD:[id number] [facility] Facesheeton 05-09-2020 Facesheet [id number]. [id number] 92#1.00CD:[address] [facility] Physician Referralon 020 Physician Referral [id number]#1.00CD:[address] [facility] Vital Signs Date Time Vital Sign Value Performing Clinician Facility 02-16-2022 12:30-0400 Body height 167.64 cm Ashley Cox Other [facility] Other 02-16-2022 12:30-0400 Body mass index (BMI) [Ratio] 34.21 kg/m2 Ashley Cox Other [facility] Other 02-16-2022 12:30-0400 Body temperature 97.8 [degF] Ashley Cox Other [facility] Other 02-16-2022 12:30-0400 Body weight 96.16 kg Ashley Cox Other [facility] Other 02-16-2022 12:30-0400 Respiratory rate 18 /min Ashley Cox Other [facility] Other 02-16-2022 12:30-0400 SaO2% (BldA) [Mass fraction] 97 % Ashley Cox Other [facility] Other Encounters Encounter Date Encounter Type Care Provider Facility Start: 04-19-2024 End: 04-19-2024 ambulatory [facility] Start: 11-08-2023 End: 11-08-2023 ambulatory MAGGY ARAIZA [facility] Start: 06-21-2023 End: 06-21-2023 ambulatory J[facility] Start: 09-24-2022 End: 09-25-[address] MARYJANE SUÁREZ Facility:[facility] Start: 02-16-2022 End: 02-16-2022 ambulatory Ashley Cox Other [facility] Other Start: 02-16-2022 Office outpatient vi sit 15 minutes Ashley Cox [facility] Start: 10-26-2021 End: 10-26-2021 ambulatory Soco Hernandez Other [facility] Other Start: 10-26-2021 Office outpatient vi sit 5 minutes Soco Hernandez [facility] Start: 10-12-2021 End: 10-13-[address] MARYJANE SUÁREZ Facility:[facility] Start: 10-08-2021 Encounter for genera l adult medical examination without abnormal findings DR MARYJANE SUÁREZ [facility] Start: 10-03-2021 End: 10-04-[address] MARYJANE SUÁREZ Facility:[facility] Start: 10-03-2021 End: 10-04-2021 Encounter for general adult medical examination without abnormal findings DR MARYJANE SUÁREZ Facility:[facility] Payers Date Payer Category Payer Unknown [id number] 1955 Unknown [id number] 1955 Unknown [id number] [id number] [id number] 1955 Unknown [id number] [id number] [id number] Medicare [id number] 2.1 [id number] Social History Date Type Detail Facility Sex Assigned At [facility] Other Clinical Notes 10-26-2021 to 04-19-2024 Note [...] All other systems reviewed and are negative. [facility] 04-19-2024 Note [place] [facility] - [facility] Subjective Shirley Brian is a 68 [...] RVR when she was admitted to the [facility] with diarrhea due to C. difficile colitis [...] V1 to V3, (more content not included)... [facility] 11-08-2023 Note [place] Electrophysiology Consult Note [facility] Reason for visit: Afib HPI: Shirley Brian is a 68 y.o. year old with past medical history of Hypertension, diabetes, dyslipidemia, palpitations. She was recently seen at the [facility] for A-fib RVR as she was admitted for diarrhea and palpitations. She was found to have C. difficile and was treated with antibiotics and converted to sinus rhythm on her own. She states she normally would get palpitations when she drinks caffeine and typically avoids caffeine, the day of her admission she believes she was given caffeinated coffee at [facility] and then began experience palpitations while already dealing with her diarrhea so she was seen by ER. She had also been experiencing lower extremity swelling and was diuresed and patient which has resolved. She for some reason was deferred to [facility] for follow up and stress test ordered [...] show any evidence of reversible ischemia. below [id number] at least 4 for age, gender, hypertension, [...] rales, no rhonchi (more content not included)... [facility] 11-08-2023 Note Patient here for 4 [...] All other systems reviewed and are negative. [facility] 08-08-2023 Note - stable, [facility] - controlled, follow-up with Dr. suárez [facility] 06-28-2023 Note - resolved. This cou ld have been the trigger to her A-fib but she was noted to have palpitations previously and intentionally avoided for that reason [facility] 06-28-2023 Note -[id number] at [address] 4 for age, gender, hypertension, diabetes - No AAD on board - continue Eliquis 5 mg, Toprol tartrate 50 mg twice daily [facility] 06-21-2023 Note Patient here for [facility] for new onset afib w/ RVR. She was also seen by [facility] cardiology last week somehow. She is still [...] All other systems reviewed and are negative. [facility] 06-21-2023 Note [place] [facility] Consult Note [facility] Reason for visit: H follow up, AFIB vs flutter RVR possibly 2/2 c-diff infection, has hx palpitations HPI: Shirley Brian is a 67 y.o. year old with past medical history of Hypertension, diabetes, dyslipidemia, palpitations. She was recently seen at the [facility] for A-fib RVR as she was admitted for diarrhea and palpitations. She was found to have C. difficile and was treated with antibiotics and converted to sinus rhythm on her own. She states she normally would get palpitations when she drinks caffeine and typically avoids caffeine, the day of her admission she believes she was given caffeinated coffee at [employer] and then began experience palpitations while already dealing with her diarrhea so she was seen by ER. She had also been experiencing lower extremity swelling and was diuresed and patient which has resolved. She for some reason was deferred to [facility] for follow up and stress test ordered but not done she has been feeling well with no complaints of chest pain, shortness of breath, BERRY, orthopnea, palpitations. She has noticed some LE edema. [id number] at least 4 for age, gender, hypertension, [...] Diagnosis Date Abnormal ECG Arrhythmia Atrial fibrillation ([facility]) C. 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 [facility] 02-16-2022 Evaluation note Encounter Date Diagnosis [...] exam and duration of symptoms. May use [place] or Flonase as directed. May use Zofran [...] Patient care instructions given in writting by [facility] document [facility] Other 12-06-2021 Evaluation note* Encounter Date Diagnosis [...] Patient care instructions given in writting by [facility] document. [facility] Other History general Narrative - Reported* Type Description Date Medical History Diabetes Medical History HTN (hypertension) Medical History Anxiety Medical History Uterine cancer Surgical History hysterectomy Surgical History C section Surgical History tonsillectomy Surgical History appendectomy Surgical History cholecystectomy Surgical History colonoscopy Surgical History biopsy Hospitalization History pneumonia Hospitalization History see above [facility] Other Summary Purpose Family History No Family History Records FoundNo Family History Records FoundNo Family History Records Found Advance Directives No Advanced Directives Records FoundNo Advanced Directives Records FoundNo Advanced Directives Records Found Additional Source Comments INFORMATION SOURCE (unrecogn ized section and content) DATE CREATED AUTHOR 06/18/2020 [facility] DATE CREATED AUTHOR AUTHOR'S ORGANIZ ATION 10/01/2022 Lars Guerrero [facility] DATE CREATED AUTHOR AUTHOR'S ORGANIZ ATION 04/20/2024 [facility] REASON FOR VISIT (unrecogniz ed section and [...] BE BASED ON THE PRIMARY CLINICAL RECORDS. [facility]. provides no warranty or guarantee of the accuracy or completeness of information in this document.
== END 2024-07-04 15:01 | disposition home or self-care (01) ==
LOC: RAD 15:00
PROVIDERS: PCP Family Medicine; Visit Provider Family Medicine
DX: N18.9 Chronic kidney disease, unspecified (principal)
CPT/HCPCS: 74018

== ENCOUNTER 2024-08-14 20:49 | Outpatient (OUT) | payer OTHER, SELFPAY ==
--- OUTSIDE RECORDS SUMMARY | 2024-08-14 20:51 | XMS_ITS | CCD ---
Author Organization [facility] Care Team Providers Care Pug Mill Operator Name Role Phone Soco Hernandez Unavailable KennyAshley Unavailable GAIL, DR WESLEY Consulting Unavailable HOY, [...] Unavailable ZIEBER, DR LELAND Lemus Consulting Unavailable AYDIN ESPINOZA Attending Unavailable ROGERS CATALAN Attending Unavailable ROGERS CATALAN Admitting Unavailable ROGERS CATALAN Attending Unavailable ROGERS CATALAN Attending Unavailable Allergies Allergy Classification Reported Allergen(s) Allergy Type Date of Onset Reaction(s) Facility (1 source) Sulfacetamide Drug Allergy HQ plus Other (1 source) Sulfonamides (Antibiotic) Drug allergy (disorder) 8 [facility] Repository (1 source) Sulfonamides (Antibiotic); Translations: [SULFA (SULFONAMIDE ANTIBIOTICS)] Propensity to adverse reactions to drug (disorder) 9 [facility] Repository Medications Current Medications Medication Drug Class(es) Dates Sig (Normalized) Sig (Original) [id number] 200 actuat albuterol 0.09 mg/actuat metered dose [...] 1.5 mg/ml oral solution (1 source) Uncompetitive O-clnmhk-T-aspartate Receptor Antagonist, Sigma-1 Agonist Start: 02-16-2022 take 10 mL by mouth every eight hours [place] DM 7.5-7.5 MG/5ML 10 mL Orally every [...] every six hours as needed for pain [place] 5-325 MG 1 tablet Orally every 6 hrs as needed for pain Jun, Not-Taking Start: 07-09-2015 take 1 tablet by abelino th every six hours as needed for pain [place] 5-325 MG 1 tablet Orally every 6 [...] atrial fibrillation; Translations: [Paroxysmal atrial fibrillation] Onset: 07-10-2024 Chronic Chronic kidney disease (1 source) Chronic [...] [VITAMIN D DEFICIENCY UNSPECIFIED] Onset: 09-30-2022 Chronic Saira-; endo-; and myocarditis; cardiomyopathy (except that caused by tuberculosis or sexually transmitted disease) (2 sources) Endocarditis, valve unspecified; Translations: [Endocarditis, valve unspecified] Onset: 04-19-2024 Chronic Past or Other Problems Problem Classification Problem Date Documented Da te Episodic/Chronic Immunizations and screening for infectious disease (2 sources) Encounter for screening for other viral diseases; Translations: [Contact with and (suspected) exposure to other viral communicable diseases] Onset: 10-26-2021 Resolved: 02-16-2022 Episodic Other lower respiratory disease (2 sources) Other forms of dyspnea; Translations: [Other forms of dyspnea] Onset: 04-19-2024 Episodic Other screening for suspected conditions (not mental disorders or infectious disease) (4 sources) Encounter for screening mammogram for malignant neoplasm of breast; Translations: [ENC SCR MAMMO MALIG NEOPLASM BREAST] Onset: 10-12-2021 Episodic Other upper respiratory infections (1 source) Acute upper respiratory infection, unspecified Onset: 02-16-2022 Resolved: 02-16-2022 Episodic Residual codes; unclassified (1 source) Family history of malignant neoplasm of breast; Translations: [FAMILY HX MALIG NEOPLASM OF BREAST] Onset: 10-21-2021 Episodic Results Test Name Value Interpretation Reference Range Facility [facility] 08-06-2024 [facility] Electrophysiology Consult Note [facility] Reason for visit: Afib 08/06/24 Pt here for LOOP 07/03/24 Pt is doing well and occasionally feels palpitations. HPI: Shirley Brian is a 68 y.o. year old with past medical history of Hypertension, diabetes, dyslipidemia, palpitations. She was recently seen at the [facility] for A-fib RVR as she was admitted for diarrhea and palpitations. She was found to have C. difficile and was treated with antibiotics and converted to sinus rhythm on her own. She states she normally would get palpitations when she drinks caffeine and typically avoids caffeine, the day of her admission she believes she was given caffeinated coffee at [facility] and then began experience palpitations while [...] Her insurance denied CTA coronaries, ordered by Christopher Mc CNP in Jun 2023. Denies chest pain. Still gets episodes of SOB w/ exertion. Has had intermittent palpitations the last couple weeks. Stress test done on 07/27/2023 does not show any evidence of reversible ischemia. below [id number] at least 4 for age, gender, hypertension, [...] fibrillation (CMS/HCC) C. difficile colitis Diabetes mellitus (CMS/[facility]) Hyperlipidemia Hypertension PSH: Past Surgical History: Procedure Laterality Date HERNIA REPAIR HYSTERECTOMY SHOULDER SURGERY TONSILLECTOMY TONSILLECTOMY SH: Social Determinants of Health Tobacco Use: Low Risk (07/30/2024) Patient History Smoking Tobacco Use: Never Smokeless Tobacco Use: Never Passive Exposure: Not on file Alcohol Use: Not on file Financial Resource Strain: Not on file Food Insecurity: Not on file Transportation Needs: Not on file Physical Activity: Not on file Stress: Not on file Social Connections: Not on file Intimate Partner Violence: Unknown (01/12/2024) [place] Safety & Environment Fear of Current or Ex-Partner: Not on file Emotionally Abused: Not on file Physically Abused: Not on file Sexually Abused: Not on file Physically or Sexually Abused: Not on file Depression: Not on file Housing Stability: Not on file Utilities: Not on file Allergies: Allergies Allergen Reactions Sulfa (Sulfonamide Antibiotics) Weight: 99.3kg Visit Vitals BP (!) 147/49 Pulse 68 Resp 17 SpO2 99% OB Status Postmenopausal Smoking Status Never Meds: No current facility-administered medications on file prior to encounter. Current Outpatient Medications on File Prior to Encounter Medication Sig Dispense Refill diclofenac (Voltaren) 75 mg EC tablet Take 75 mg by mouth if needed. Eliquis 5 mg tablet Take 5 mg by mouth two times daily. magnesium oxide (Mag-Ox) 400 mg (241.3 mg magnesium) tablet Take 1 tablet (400 mg) by mouth once daily as directed. 90 tablet 3 metFORMIN (Glucophage) 500 mg tablet Take 1 tablet by mouth twice a day. metoprolol tartrate (Lopressor) 50 mg tablet Take 50 mg by mouth in the morning and at bedtime. pantoprazole (ProtoNix) 40 mg EC tablet Take 40 mg by mouth if needed each day. pioglitazone (Actos) 30 mg tablet Take 30 mg by mouth in the morning. ramipril (Altace) 10 mg capsule Take 10 mg by mouth in the morning. simvastatin (Zocor) 20 mg tablet Take 20 mg by mouth at bedtime. venlafaxine XR (Effexor-XR) 75 mg 24 hr capsule Take 75 mg by mouth in the morning. ROS: Review of Systems Cardiovascular: Positive for leg swelling. Respiratory: Positive for shortness of breath. Physical Exam: Constitutional General Appearance: well-nourished, well-developed, appears stated age Level of Distress: comfortable Psychiatric Mental Status: alert, normal affect Orientation: oriented to time, place, and person Insight: good judgement Eyes Lids and Conjunctivae: non-injected, no xanthelasma ENMT Ears: no lesions on external ear Nose: no lesions on external nose Oropharynx: no cyanosis, no pallor Neck Neck: supple, trachea midline Carotid Arteries: bilateral antoine (more content not included)... [facility] NURSNOTEon 08-06-2024 NURSNOTE RN educated pt on d/ c instructions. RN encouraged pt to voice any questions or concerns. Pt verbalizes no questions or concerns at this time. Pt was wheeled off of unit with all of belongings. [facility] 36on 07-11-2024 36 Regarding echo resul t from 05/29/2024: MD Anne Garsia MA Notify patient that her heart function is normal, valvular heart disease is stable, but she has evidence of pulmonary hypertension. Advise the patient to take the Lasix every day not as needed, check BMP in 1 week, refer her for sleep study [facility] Office Visiton 07-03-2024 Follow-up visit [id number] Shirley Brian 1955 F Date Provider Department Center 07/03/2024 ROGERS BERNAL [facility] Family History Problem Relation Age of Onset No Known Problems Mother Diabetes Father No Known Problems Sister No Known Problems Brother Family Status - Relation Status Age at Mother Father Sister Brother Level of Service:35675 [place] OFFICE/OUTPATIENT ESTABLISHED LOW MDM 20 MIN Normal [facility] Office Visiton 04-19-2024 Follow-up visit [id number] Shirley Brian 1955 Date Provider Department Center 04/19/2024 [facility] Family History Problem Relation Age of Onset No Known Problems Mother Diabetes Father No Known Problems Sister No Known Problems Brother Family Status - Relation Status Age at Mother Father Sister Brother Level of Service:04531 [place] OFFICE/OUTPATIENT ESTABLISHED MOD MDM 30 MIN Normal [facility] Office Visiton 11-08-2023 Follow-up visit [id number] Shirley Brian 1955 Provider Department Center 11/08/2023 ROGERS BERNAL [facility] Family History Problem Relation Age of Onset No Known Problems Mother Diabetes Father No Known Problems Sister No Known Problems Brother Family Status - Relation Status Age at Mother Father Sister Brother Level of Service:59972 [place] OFFICE/OUTPATIENT NEW MODERATE MDM 45 MINUTES Normal [facility] INSULINon 09-25-2022 Insulin 14.1 uIU/mL Normal 2.6-24.9 [facility] Comment on above: Performed By: #### I NSULIN #### [facility] Laboratory [address] [address] [address] Becky Josue CBC AUTO DIFFon 09-24-2022 BASO # 0.0 103/ul Normal 0.0-0.1 [facility] Comment on above: Performed By: #### C BC ####[facility] [address] [address]DrBrayan Josue Basophils/100 WBC (Bld) 0.5 % Normal 0.2-2.0 [facility] Comment on above: Performed By: #### C BC ####[facility] [address] [address]DrBrayna Josue EO # 0.1 103/ul Normal 0.0-0.7 [facility] Comment on above: Performed By: #### C BC ####[facility] [address] [id number]. Becky Josue Eosinophils/100 WBC (Bld) 3.3 % Normal 0.9-7.0 [facility] Comment on above: Performed By: #### C BC ####[facility] [address] [address]Dr. Becky Josue Erythrocyte distribution width (RBC) [Ratio] 14.3 % Normal 11.0-15.0 [facility] Comment on above: Performed By: #### C BC ####[facility] [address] [place], [place] [address]Dr. Becky Josue Hematocrit (Bld) [Volume fraction] 42.6 % Normal 36.0-48.0 [facility] Comment on above: Performed By: #### C BC ####[facility] [address] [place], [place] [address]Dr. Becky Josue Hemoglobin (Bld) [Mass/Vol] 13.8 g/dL Normal 12.0-16.0 [facility] Comment on above: Performed By: #### C BC ####[facility] [address] [place], [place] [address]Dr. Becky Josue IG # 0.02 10e3/ul Normal 0.00-0.03 [facility] Comment on above: Performed By: #### C BC ####[facility] [address] [place], [place] [address]Dr. Becky Josue IG % 0.5 % Normal 0.0-0.5 [facility] Comment on above: Performed By: #### C BC ####[facility] [address] [place], [place] [address]Dr. Becky Josue LYMPH # 1.1 103/ul Critically low 1.2-3.[address] [facility] Comment on above: Performed By: #### C BC ####[facility] [address] [place], [place] [address]Dr. Becky Josue Lymphocytes/100 WBC (Bld) 28.0 % Normal 20.5-60.0 [facility] Comment on above: Performed By: #### C BC ####[facility] [address] [id number]. Becky Josue MANUAL DIFF REQ NO Normal [facility] Comment on above: Performed By: #### C BC ####[facility] [address] [id number]. Becky Joselo MCH (RBC) [Entitic mass] 29.3 pg Normal 26.7-34.0 [facility] Comment on above: Performed By: #### C BC ####[facility] [address] [id number]. Becky Joselo MCHC (RBC) [Mass/Vol] 32.4 g/dL Normal 29.9-35.2 [facility] Comment on above: Performed By: #### C BC ####[facility] [address] [place], [place] [address]Dr. Kellenkwadwo Josue MCV (RBC) [Entitic vol] 90.4 fL Normal 81.0-99.0 [facility] Comment on above: Performed By: #### C BC ####[facility] [address] [place], [place] [id number]. Becky Joselo MONO # 0.3 103/ul Normal 0.3-0.8 [facility] Comment on above: Performed By: #### C BC ####[facility] [address] [place], [place] [address]Dr. Kellenkwadwo Josue Monocytes/100 WBC (Bld) 8.3 % Normal 1.7-12.0 [facility] Comment on above: Performed By: #### C BC ####[facility] [address] [place], [place] [address]Dr. Kellenkwadwo Joselo NEUT # 2.4 103/ul Normal 1.4-6.5 [facility] Comment on above: Performed By: #### C BC ####[facility] [address] [place], [place] [id number]. Becky Josue Neutrophils/100 WBC (Bld) 59.4 % Normal 43.0-75.0 [facility] Comment on above: Performed By: #### C BC ####[facility] [address] [id number]. Becky Josue Platelet mean volume (Bld) [Entitic vol] 10.3 fL Normal 9.5-13.5 [facility] Comment on above: Performed By: #### C BC ####[facility] [address] [id number]. Becky Josue PLT 149 103/ul Critically low 150-450 [facility] Comment on above: Performed By: #### C BC ####[facility] [address] [id number]. Becky Josue RBC 4.71 106/ul Normal 4.20-5.40 [facility] Comment on above: Performed By: #### C BC ####[facility] [address] [address]Dr. Becky Josue WBC 4.0 103/ul Normal 4.0-11.0 [facility] Comment on above: Performed By: #### C BC ####[facility] [address] [id number]. Becky Josue FREE THYROXINE INDEX T7on FTI 3.36 Normal 1.30-4.50 [facility] Comment on above: Performed By: #### L IPID, CMP, TSH, T7 ####[facility] [address] [id number]. Becky Josue T3U 32.0 % Normal 30.0-39.0 [facility] Comment on above: Performed By: #### L IPID, CMP, TSH, T7 ####[facility] [address] [id number]. Becky Josue T4 [Mass/Vol] 10.50 ug/dL Normal 4.80-13.90 [facility] Comment on above: Performed By: #### L IPID, CMP, TSH, T7 ####[facility] [address] [id number]. Becky Josue GLYCOHEMOGLOBIN A1Con 2021 ADA RECOMMENDATION SEE BELOW Normal [facility] Comment on above: Result Comment: ADA RECOMMENDED LIMIT 4.0 - 6.0 ADA THERAPEUTIC TARGET < 7.0 ACTION SUGGESTED > 7.0 Performed By: #### A 1C #### [facility] Laboratory [address] [address] [address] Becky Josue Glucose [Mass/Vol] 237 mg/dL Normal [facility] Comment on above: Performed By: #### A 1C #### [facility] [address] [address] [address] Becky Josue HbA1c (Bld) [Mass fraction] 9.9 % Critically high 4.5-6.2 [facility] Comment on above: Performed By: #### A 1C #### [facility] [address] [address] [address] Becky Josue IRONon 09-24-2022 Iron [Mass/Vol] 55.0 ug/dL Normal 50.0-170.0 [facility] Comment on above: Performed By: #### I MARLYN VITMARY #### [facility] [address] [address] [address] Becky Josue LIPID PROFILEon 09-24-2022 CHOL-HDL RATIO NORM SEE BELOW Normal [facility] Comment on above: Result Comment: 3.3 - 4.4 LOW RISK 4.4 - 7.1 AVERAGE RISK 7.1 - 11.0 MODERATE RISK >11.0 HIGH RISK Performed By: #### L IPID, CMP, TSH, T7 ####[facility] [address] [id number]. Becky Josue Cholesterol [Mass/Vol] 171 mg/dL Normal <=200 [facility] Comment on above: Performed By: #### L IPID, CMP, TSH, T7 ####[facility] [address] [id number]. Becky Josue Cholesterol in HDL [Mass/Vol] 38 mg/dL Critically low 40-60 [facility] Comment on above: Performed By: #### L IPID, CMP, TSH, T7 ####[facility] [address] [id number]. Becky Josue Cholesterol in LDL [Mass/Vol] 101.6 mg/dL Normal [facility] Comment on above: Performed By: #### L IPID, CMP, TSH, T7 ####[facility] [address] [address]Dr. Becky Josue Cholesterol.total/C holesterol in HDL [Mass ratio] 4.5 {ratio} Normal [facility] Comment on above: Performed By: #### L IPID, CMP, TSH, T7 ####[facility] [address] [address]Dr. Becky Josue HDL NORMAL > or = 60 mg/dl - LO W CARDIOVASCULAR RISK <40 mg/dl - HIGH CARDIOVASCULAR RISK Normal [facility] Comment on above: Performed By: #### L IPID, CMP, TSH, T7 ####[facility] [address] [address]Dr. Becky Josue LDL CALC NORMAL SEE BELOW Normal [facility] Comment on above: Result Comment: <100 mg/dl OPTIMAL 100 - 129 mg/dl NEAR OR ABOVE OPTIMAL 130 - 159 mg/dl BORDERLINE HIGH 160 - 189 mg/dl HIGH >190 mg/dl VERY HIGH Performed By: #### L IPID, CMP, TSH, T7 ####[facility] [address] [address]Dr. Becky Josue Triglyceride [Mass/Vol] 157 mg/dL Critically high <=150 [facility] Comment on above: Performed By: #### L IPID, CMP, TSH, T7 ####[facility] [address] [id number]. Becky Josue VLDL CALC 31.4 mg/dL Normal [facility] Comment on above: Performed By: #### L IPID, CMP, TSH, T7 ####[facility] [address] [address]Dr. Becky Josue PROF 14(COMP METB)on 022 Albumin [Mass/Vol] 3.4 g/dL Normal 3.4-5.0 [facility] Comment on above: Performed By: #### L IPID, CMP, TSH, T7 ####[facility] [address] [address]Dr. Becky Josue Albumin/Globulin [Mass ratio] 0.9 {ratio} Normal [facility] Comment on above: Performed By: #### L IPID, CMP, TSH, T7 ####[facility] [address] [address]Dr. Becky Josue ALP [Catalytic activity/Vol] 106 U/L Normal 46-116 [facility] Comment on above: Performed By: #### L IPID, CMP, TSH, T7 ####[facility] [address] [address]Dr. Becky Josue ALT [Catalytic activity/Vol] 39 U/L Normal 14-59 [facility] Comment on above: Performed By: #### L IPID, CMP, TSH, T7 ####[facility] [address] [address]Dr. Becky Josue Anion gap [Moles/Vol] 6.9 mmol/L Normal [facility] Comment on above: Performed By: #### L IPID, CMP, TSH, T7 ####[facility] [address] [place], [place] [address]Dr. Becky Josue AST [Catalytic activity/Vol] 44 U/L Critically high 15-37 [facility] Comment on above: Performed By: #### L IPID, CMP, TSH, T7 ####[facility] [address] [address]Dr. Becky Josue Bilirubin [Mass/Vol] 1.1 mg/dL Critically high 0.2-1.0 [facility] Comment on above: Performed By: #### L IPID, CMP, TSH, T7 ####[facility] [address] [address]Dr. Becky Josue Calcium [Mass/Vol] 9.4 mg/dL Normal 8.5-10.1 [facility] Comment on above: Performed By: #### L IPID, CMP, TSH, T7 ####[facility] [address] [address]Dr. Becky Josue Chloride [Moles/Vol] 103 mmol/L Normal 98-107 [facility] Comment on above: Performed By: #### L IPID, CMP, TSH, T7 ####[facility] [address] [address]Dr. Becky Josue CO2 [Moles/Vol] 31.3 mmol/L Normal 21.0-32.[address] [facility] Comment on above: Performed By: #### L IPID, CMP, TSH, T7 ####[facility] [address] [address]Dr. Becyk Josue Creatinine [Mass/Vol] 0.72 mg/dL Normal 0.55-1.02 [facility] Comment on above: Performed By: #### L IPID, CMP, TSH, T7 ####[facility] [address] [address]Dr. Becky Josue EGFR-AF STATELESS >60 Normal >=[address] [facility] Comment on above: Performed By: #### L IPID, CMP, TSH, T7 ####[facility] [address] [address]Dr. Becky Josue EGFR-NON AF STATELESS >60 Normal >=60 [facility] Comment on above: Performed By: #### L IPID, CMP, TSH, T7 ####[facility] [address] [address]Dr. Becky Josue Globulin (S) [Mass/Vol] 4.0 g/dL Normal [facility] Comment on above: Performed By: #### L IPID, CMP, TSH, T7 ####[facility] [address] [address]Dr. Becky Josue Glucose [Mass/Vol] 315 mg/dL Critically high 74-106 [facility] Comment on above: Performed By: #### L IPID, CMP, TSH, T7 ####[facility] [address] [address]Dr. Kellenkwadwo Josue Potassium [Moles/Vol] 4.2 mmol/L Normal 3.5-5.1 [facility] Comment on above: Performed By: #### L IPID, CMP, TSH, T7 ####[facility] [address] [id number]. Becky Josue Protein [Mass/Vol] 7.4 g/dL Normal 6.4-8.2 [facility] Comment on above: Performed By: #### L IPID, CMP, TSH, T7 ####[facility] [address] [address]Dr. Becky Josue Sodium [Moles/Vol] 137 mmol/L Normal 136-[address] [facility] Comment on above: Performed By: #### L IPID, CMP, TSH, T7 ####[facility] [address] [address]Dr. Becky Josue Urea nitrogen [Mass/Vol] 14.0 mg/dL Normal 7.0-18.0 [facility] Comment on above: Performed By: #### L IPID, CMP, TSH, T7 ####[facility] [address] [address]Dr. Becky Josue Urea nitrogen/Creatinine [Mass ratio] 19.4 mg/mg Normal [facility] Comment on above: Performed By: #### L IPID, CMP, TSH, T7 ####[facility] [address] [id number]. Becky Josue TSHon 09-24-2022 TSH 2.117 uIU/mL Normal 0.358-3.740 [facility] [facility] Comment on above: Performed By: #### L IPID, CMP, TSH, T7 ####[facility] [id number] [id number]. Becky Josue VITAMIN D 25 OHon 09-24-2022 VIT D 25-OH 21.3 ng/mL Normal [facility] Comment on above: Performed By: #### I MARLYN VITAD #### [facility] Laboratory [id number] Becky Josue VIT D RANGES SEE BELOW Normal [facility] Comment on above: Result Comment: <20 ng/mL Vit D deficient 20 - <30 ng/mL Vit D insufficient 30 - 100 ng/mL Vit D sufficient >100 ng/mL Potential Toxicity Performed By: #### I MARLYN, VITAD #### [facility] Laboratory [address] [address] [address] Becky HOLLOWAY Quick Testingon 2020 Result Negative [facility] Other MG MAMM SCREEN 3D SVEN CADon 10-12-2021 MG MAMM SCREEN 3D SVEN CAD Patient: SHIRLEY BRIAN Exam Date: 10/12/2021 : 1955 Gender:F Ordering : DR MARYJANE REYNOLDS . Admission #: [id number] Family : Order #: [id number] CLICK HERE TO VIEW EXAM RADIOLOGY REPORT PROCEDURE: MAMMOGRAM SCREENING 3D BILATERAL CAD COMPARISON: MG MAMM SCREEN SVEN W CAD, 12/29/2018. MG MAMM SCREEN SVEN W CAD, 12/27/2017. INDICATIONS: Screening mammography Calculator Name NCI Breast Cancer Risk Assessment Tool 5 Year Breast Cancer Risk 1.30% Lifetime Breast Cancer Risk 5.20% Personal Breast Cancer No Personal Ovarian Cancer No Treatments None Family Cancers Grandmother-maternal with breast cancer at age 65. LOCATION: [facility] BREAST COMPOSITION: Scattered areas fibroglandular density. FINDINGS: [...] M.D. on 10/13/2021 at 12:22 Normal [facility] CBC AUTO DIFFon 10-03-2021 BASO # 0.0 103/ul Normal 0.0-0.1 [facility] Comment on above: Performed By: #### C BC #### [facility] Laboratory [address] [address] [address] Becky Josue Basophils/100 WBC (Bld) 0.4 % Normal 0.2-2.0 [facility] Comment on above: Performed By: #### C BC #### [facility] Laboratory [address] [place] [address] Dr. Becky Josue EO # 0.2 103/ul Normal 0.0-0.7 [facility] Comment on above: Performed By: #### C BC #### [facility] [address] [place] [address] Dr. Becky Josue Eosinophils/100 WBC (Bld) 4.1 % Normal 0.9-7.0 [facility] Comment on above: Performed By: #### C BC #### [facility] [address] [place] [address] Dr. Becky Josue Erythrocyte distribution width (RBC) [Ratio] 14.5 % Normal 11.0-15.0 [facility] Comment on above: Performed By: #### C BC #### [facility] [address] [place] [address] Dr. Becky Josue Hematocrit (Bld) [Volume fraction] 43.5 % Normal 36.0-48.0 [facility] Comment on above: Performed By: #### C BC #### [facility] [address] [place] [address] Dr. Becky Josue Hemoglobin (Bld) [Mass/Vol] 13.7 g/dL Normal 12.0-16.0 [facility] Comment on above: Performed By: #### C BC #### [facility] [address] [place] [address] Dr. Becky Josue IG # 0.02 10e3/ul Normal 0.00-0.03 [facility] Comment on above: Performed By: #### C BC #### [facility] [address] [place] [address] Dr. Becky Josue IG % 0.4 % Normal 0.0-0.5 [facility] Comment on above: Performed By: #### C BC #### [facility] [address] [place] [address] Dr. Becky Josue LYMPH # 1.6 103/ul Normal 1.2-3.8 [facility] Comment on above: Performed By: #### C BC #### [facility] [address] [place] [address] Dr. Becky Josue Lymphocytes/100 WBC (Bld) 32.0 % Normal 20.5-60.0 [facility] Comment on above: Performed By: #### C BC #### [facility] [address] [place] [address] Dr. Becky Josue MANUAL DIFF REQ NO Normal [facility] Comment on above: Performed By: #### C BC #### [facility] [address] [place] [address] Dr. Becky Josue MCH (RBC) [Entitic mass] 29.5 pg Normal 26.7-34.0 [facility] Comment on above: Performed By: #### C BC #### [facility] [address] [place] [address] Dr. Becky Josue MCHC (RBC) [Mass/Vol] 31.5 g/dL Normal 29.9-35.2 [facility] Comment on above: Performed By: #### C BC #### [facility] [address] [place] [address] Dr. Becky Josue MCV (RBC) [Entitic vol] 93.5 fL Normal 81.0-99.0 [facility] Comment on above: Performed By: #### C BC #### [facility] [address] [place] [address] Dr. Becky Josue MONO # 0.4 103/ul Normal 0.3-0.8 [facility] Comment on above: Performed By: #### C BC #### [facility] [address] [place] [address] Dr. Becky Josue Monocytes/100 WBC (Bld) 8.8 % Normal 1.7-12.0 [facility] Comment on above: Performed By: #### C BC #### [facility] [address] [place] [address] Dr. Becky Josue NEUT # 2.7 103/ul Normal 1.4-6.5 [facility] Comment on above: Performed By: #### C BC #### [facility] [address] [address] [address] Becky Josue Neutrophils/100 WBC (Bld) 54.3 % Normal 43.0-75.0 [facility] Comment on above: Performed By: #### C BC #### [facility] [address] [address] [address] Becky Josue Platelet mean volume (Bld) [Entitic vol] 10.4 fL Normal 9.5-13.5 [facility] Comment on above: Performed By: #### C BC #### [facility] [address] [address] [address] Becky Josue PLT 158 103/ul Normal 150-450 [facility] Comment on above: Performed By: #### C BC #### [facility] [address] [address] [address] Becky Josue RBC 4.65 106/ul Normal 4.20-5.40 [facility] Comment on above: Performed By: #### C BC #### [facility] [address] [address] [address] Becky Josue WBC 4.9 103/ul Normal 4.0-11.0 [facility] Comment on above: Performed By: #### C BC #### [facility] [address] [address] [address] Becky Josue FREE THYROXINE INDEX T7on FTI 2.79 Normal [facility] Comment on above: Performed By: #### L IPID, CMP, T7, TSH ####[facility] [address] [place], [place] [address]Dr. Becky Josue T3U 30.0 % Normal 23.5-40.5 [facility] Comment on above: Performed By: #### L IPID, CMP, T7, TSH ####[facility] [id number] [place], [place] [address]LdDr. Becky Josue T4 [Mass/Vol] 9.30 ug/dL Normal 5.53-11.00 [facility] Comment on above: Performed By: #### L IPID, CMP, T7, TSH ####[facility] [id number] [place], [place] [address]FwDr. Becky Josue GLYCOHEMOGLOBIN A1Con 2020 ADA RECOMMENDATION ADA THERAPEUTIC TARGET 6.0 - 7.0 ACTION SUGGESTED > 7.0 Normal [facility] Comment on above: Performed By: #### A 1C #### [facility] [address] [address] [address] Becky Josue Glucose [Mass/Vol] 229 mg/dL Normal [facility] Comment on above: Performed By: #### A 1C #### [facility] [address] [address] [address] Becky Josue HbA1c (Bld) [Mass fraction] 9.6 % Critically high <=6.0 [facility] Comment on above: Performed By: #### A 1C #### [facility] [address] [address] [address] Becky Josue IRONon 10-03-2021 Iron [Mass/Vol] 62.0 ug/dL Normal 37.0-170.0 [facility] Comment on above: Performed By: #### I MARLYN #### [facility] [address] [address] [address] Becky Josue LIPID PROFILEon 10-03-2021 CHOL-HDL RATIO NORM SEE BELOW Normal [facility] Comment on above: Result Comment: 3.3 - 4.4 LOW RISK 4.4 - 7.1 AVERAGE RISK 7.1 - 11.0 MODERATE RISK >11.0 HIGH RISK Performed By: #### L IPID, CMP, T7, TSH #### [facility] [address] [address] [address] Becky Josue Cholesterol [Mass/Vol] 172 mg/dL Normal <=200 [facility] Comment on above: Performed By: #### L IPID, CMP, T7, TSH #### [facility] [address] [address] [address] Becky Josue Cholesterol in HDL [Mass/Vol] 38 mg/dL Normal [facility] Comment on above: Performed By: #### L IPID, CMP, T7, TSH #### [facility] [address] [address] [address] Becky Josue Cholesterol in LDL [Mass/Vol] 89.0 mg/dL Normal [facility] Comment on above: Performed By: #### L IPID, CMP, T7, TSH #### [facility] [address] [address] [address] Becky Josue Cholesterol.total/C holesterol in HDL [Mass ratio] 4.5 {ratio} Normal [facility] Comment on above: Performed By: #### L IPID, CMP, T7, TSH #### [facility] [address] [address] [address] Becky Josue HDL NORMAL > or = 60 mg/dl - LO W CARDIOVASCULAR RISK <40 mg/dl - HIGH CARDIOVASCULAR RISK Normal [facility] Comment on above: Performed By: #### L IPID, CMP, T7, TSH #### [facility] [address] [address] [address] Becky Josue LDL CALC NORMAL SEE BELOW Normal [facility] Comment on above: Result Comment: <100 mg/dl OPTIMAL 100 - 129 mg/dl NEAR OR ABOVE OPTIMAL 130 - 159 mg/dl BORDERLINE HIGH 160 - 189 mg/dl HIGH >190 mg/dl VERY HIGH Performed By: #### L IPID, CMP, T7, TSH #### [facility] [address] [address] [address] Becky oJsue Triglyceride [Mass/Vol] 225 mg/dL Critically high <=150 [facility] Comment on above: Performed By: #### L IPID, CMP, T7, TSH #### [facility] [address] [address] [address] Becky Josue VLDL CALC 45.0 mg/dL Normal [facility] Comment on above: Performed By: #### L IPID, CMP, T7, TSH #### [facility] [address] [address] [address] Becky Josue PROF 14(COMP METB)on 021 Albumin [Mass/Vol] 3.1 g/dL Critically low 3.5-5.0 Th e [facility] Comment on above: Performed By: #### L IPID, CMP, T7, TSH #### [facility] [address] [place] [address] Dr. Becky Josue Albumin/Globulin [Mass ratio] 0.8 {ratio} Normal [facility] Comment on above: Performed By: #### L IPID, CMP, T7, TSH #### [facility] [address] [place] [address] Dr. Becky Josue ALP [Catalytic activity/Vol] 100 U/L Normal 38-126 [facility] Comment on above: Performed By: #### L IPID, CMP, T7, TSH #### [facility] [address] [place] [address] Dr. Becky Josue ALT [Catalytic activity/Vol] 35 U/L Normal 9-52 [facility] Comment on above: Performed By: #### L IPID, CMP, T7, TSH #### [facility] [address] [place] [address] Dr. Becky Josue Anion gap [Moles/Vol] 13.0 mmol/L Normal [facility] Comment on above: Performed By: #### L IPID, CMP, T7, TSH #### [facility] [address] [place] [address] Dr. Becky Josue AST [Catalytic activity/Vol] 27 U/L Normal 14-36 [facility] Comment on above: Performed By: #### L IPID, CMP, T7, TSH #### [facility] [address] [place] [address] Dr. Becky Josue Bilirubin [Mass/Vol] 0.8 mg/dL Normal 0.2-1.3 [facility] Comment on above: Performed By: #### L IPID, CMP, T7, TSH #### [facility] [address] [place] [address] Dr. Becky Josue Calcium [Mass/Vol] 8.9 mg/dL Normal 8.4-10.2 [facility] Comment on above: Performed By: #### L IPID, CMP, T7, TSH #### [facility] [address] [address] [address] Becky Josue Chloride [Moles/Vol] 103 mmol/L Normal 98-107 [facility] Comment on above: Performed By: #### L IPID, CMP, T7, TSH #### [facility] [address] [address] [address] Becky Josue CO2 [Moles/Vol] 30.3 mmol/L Critically high 22.0-30.0 [facility] Comment on above: Performed By: #### L IPID, CMP, T7, TSH #### [facility] [address] [address] [address] Becky Josue Creatinine [Mass/Vol] 0.72 mg/dL Normal 0.52-1.04 [facility] Comment on above: Performed By: #### L IPID, CMP, T7, TSH #### [facility] [address] [address] [address] Becky Josue EGFR-AF STATELESS >60 Normal >=60 [facility] Comment on above: Performed By: #### L IPID, CMP, T7, TSH #### [facility] [address] [address] [address] Becky Josue EGFR-NON AF STATELESS >60 Normal >=60 [facility] Comment on above: Performed By: #### L IPID, CMP, T7, TSH #### [facility] [address] [address] [address] Becky Josue Globulin (S) [Mass/Vol] 3.9 g/dL Normal [facility] Comment on above: Performed By: #### L IPID, CMP, T7, TSH #### [facility] [address] [address] [address] Becky Josue Glucose [Mass/Vol] 261 mg/dL Critically high 74-106 [facility] Comment on above: Performed By: #### L IPID, CMP, T7, TSH #### [facility] [address] [address] [address] Becky Josue Potassium [Moles/Vol] 4.3 mmol/L Normal 3.4-5.0 [facility] Comment on above: Performed By: #### L IPID, CMP, T7, TSH #### [facility] [address] [address] [address] Becky Josue Protein [Mass/Vol] 7.0 g/dL Normal 6.1-8.[address] [facility] Comment on above: Performed By: #### L IPID, CMP, T7, TSH #### [facility] [address] [address] [address] Becky Josue Sodium [Moles/Vol] 142 mmol/L Normal 137-[address] [facility] Comment on above: Performed By: #### L IPID, CMP, T7, TSH #### [facility] [address] [address] [address] Becky Josue Urea nitrogen [Mass/Vol] 22.0 mg/dL Critically high 7.0-17.0 [facility] Comment on above: Performed By: #### L IPID, CMP, T7, TSH #### [facility] [address] [address] [address] Becky Josue Urea nitrogen/Creatinine [Mass ratio] 30.6 mg/mg Normal [facility] Comment on above: Performed By: #### L IPID, CMP, T7, TSH #### [facility] [address] [address] [address] Becky Josue TSHon 10-03-2021 TSH 2.809 uIU/mL Normal 0.470-4.680 [facility] Comment on above: Performed By: #### L IPID, CMP, T7, TSH ####[facility] [address] [address]. Becky Josue TSH RANGE SEE BELOW Normal [facility] Comment on above: Result Comment: <0.3 4 UIU/ml HYPERTHYROID 0.34-5.60 UIU/ml EUTHYROID >5.60 UIU/ml HYPOTHYROID Performed By: #### L IPID, CMP, T7, TSH ####[facility] [address] [address]Dr. Becky Josue Outside Colonoscopyon 07-21- 2020 Outside Colonoscopy [id number] .[id number]:127 [facility] Lab Reportson 05-19-2020 Lab Reports [id number] .00CD:127 [facility] Ambulatory Clinical Summaryo n 05-09-2020 Ambulatory Clinical Summary {[id number] [facility] Facesheeton 05-09-2020 Facesheet [id number] .00CD:127 [facility] Physician Referralon 020 Physician Referral [id number] .00CD:127 [facility] Vital Signs Date Time Vital Sign Value Performing Clinician Facility 02-16-2022 12:30-0400 Body height 167.64 cm Ashley Cox Other [facility] Other 02-16-2022 12:30-0400 Body mass index (BMI) [Ratio] 34.21 kg/m2 Ashley Cox Other [facility] Other 02-16-2022 12:30-0400 Body temperature 97.8 [degF] Ashley Cox Other [facility] Other 02-16-2022 12:30-0400 Body weight 96.16 kg Ashley Cox Other [facility] Other 02-16-2022 12:30-0400 Respiratory rate 18 /min Ashley Cox Other [facility] Other 02-16-2022 12:30-0400 SaO2% (BldA) [Mass fraction] 97 % Ashley Cox Other [facility] Other Encounters Encounter Date Encounter Type Care Provider Facility Start: 08-06-2024 End: 08-06-2024 ambulatory [facility] Start: 07-03-2024 End: 07-03-2024 ambulatory [facility] Start: 04-19-2024 End: 04-19-2024 ambulatory [facility] Start: 11-08-2023 End: 11-08-2023 ambulatory [facility] Start: 09-24-2022 End: 09-25-[address] MARYJANE REYNOLDS Facility:[facility] Start: 02-16-2022 End: 02-16-2022 ambulatory Ashley Cox Other [facility] Other Start: 02-16-2022 Office outpatient vi sit 15 minutes Ashley Cox [facility] Start: 10-26-2021 End: 10-26-2021 ambulatory Socoestrella Hernandez Other [facility] Other Start: 10-26-2021 Office outpatient vi sit 5 minutes Soco Hernandez [facility] Start: 10-12-2021 End: 10-13-[address] MARYJANE REYNOLDS Facility:[facility] Start: 10-08-2021 Encounter for genera l adult medical examination without abnormal findings DR MARYJANE REYNOLDS [facility] Start: 10-03-2021 End: 10-04-[address] MARYJANE REYNOLDS Facility:[facility] Start: 10-03-2021 End: 10-04-2021 Encounter for general adult medical examination without abnormal findings DR MARYJANE REYNOLDS Facility:[facility] Payers Date Payer Category Payer Unknown [id number] 1955 Unknown [id number] 1955 Unknown [id number] [id number] [id number] 1955 Unknown [id number] [id number] [id number] Medicare [id number] 2.1 [id number] Social History Date Type Detail Facility Sex Assigned At [facility] Other Procedure note 08-06-2024 Note Date & Type Note Facility 08-06-2024 Note LOOP IMPLANT PROCEDU RE NOTE DATE OF PROCEDURE: 08/06/24 PERFORMING PHYSICIAN: Dr. Rogers Catalan MOLECULAR BIOLOGY DIRECTOR: REJI INDICATIONS FOR PROCEDURE: 1. SVT/AF surveillance CONSENT: Patient LOCATION: EP lab PROCEDURAL SEDATION: None FLUOROSCOPY TIME: 0min PREPARATION: Preoperative antibiotics was administered. EBL:5cc SPECIMEN REMOVED: None PROCEDURES PERFORMED: 1. LOOP implant PROCEDURE NOTE: Patient was brought to the EP lab in the post absorptive state. A procedural pause was performed verifying the patient, the procedure. Sterile prep and drape were performed over the left precordium and anesthesia with 1% lidocaine was followed by a small incision was made in the 3rd intercostal space near the sternum on the left using the COSMIC COLOR tool. The loop recorder was then injected subcutaneously and noted to have good sensing parameters. Technical details of the device as noted below. The skin was then closed with 3-0 absorbable monofilament suture and glue applied to hold the edges together. Tegaderm was applied to cover the wound. The patient appeared to tolerate the procedure well and was returned to the room in stable condition. No complications were immediately observed. Sensin.25mV. IMPRESSION: Successful placement of LOOP implant with excellent sensing parameters. COMPLICATIONS: None RECOMMENDATIONS: 1. Occlusive dressing to be changed after 7 days. 2. Do not wet the incision. Rogers Catalan MD Cardiac Electrophysiology. [facility] Progress note 07-03-2024 Note Date & Type Note Facility 07-03-2024 Note PR Electrophysiology Consult Note [facility] Reason for visit: Afib 07/03/24 Pt is doing well and occasionally feels palpitations. HPI: Shirley Brian is a 68 y.o. year old with past medical history of Hypertension, diabetes, dyslipidemia, palpitations. She was recently seen at the [facility] for A-fib RVR as she was admitted for diarrhea and palpitations. She was found to have C. difficile and was treated with antibiotics and converted to sinus rhythm on her own. She states she normally would get palpitations when she drinks caffeine and typically avoids caffeine, the day of her admission she believes she was given caffeinated coffee at [facility] and then began experience palpitations while already dealing with her diarrhea so she was seen by ER. She had also been experiencing lower extremity swelling and was diuresed and patient which has resolved. She for some reason was deferred to [facility] for follow up and stress test ordered but not done she has been feeling well with no complaints of chest pain, shortness of breath, BERRY, orthopnea, palpitations. She has noticed some LE edema. Her insurance denied CTA coronaries, ordered by Christopher Mc CNP in Jun 2023. Denies chest pain. Still gets episodes of SOB w/ exertion. Has had intermittent palpitations the last couple weeks. Stress test done on 07/27/2023 does not show any evidence of reversible ischemia. below [id number] at least 4 for age, gender, hypertension, [...] Connections: Not on file Intimate Partner Violence: Unknown (01/12/2024) [place] Safety & Environment Fear of Current or Ex-Partner: Not on file Emotionally Abused: Not on file Physically Abused: Not on file Sexually Abused: Not on file Physically or Sexually Abused: Not on file Depression: Not on file Housing Stability: Not on file Utilities: Not on file Allergies: Allergies Allergen Reactions Sulfa (Sulfonamide Antibiotics) Weight: 99.3kg Visit Vitals BP 135/62 (BP Location: Left arm, Patient Position: Sitting) Pulse 68 Ht 1.676 m (5' 6 ) Wt 99.3 kg (219 lb) SpO2 94% BMI 35.35 kg/m??? Smoking Status Never BSA 2.15 m??? Meds: Current Outpatient Medications on File Prior to Visit Medication Sig Dispense Refill diclofenac (Voltaren) 75 mg EC tablet Take 75 mg by mouth if needed. Eliquis 5 mg tablet Take 5 mg by mouth in the morning and at bedtime. furosemide (Lasix) 20 mg tablet Take 1 tablet (20 mg) by mouth if needed each day (for lower extremity edema). 90 tablet 2 magnesium oxide (Mag-Ox) 400 mg (241.3 mg magnesium) tablet Take 1 tablet (400 mg) by mouth once daily as directed. 90 tablet 3 metFORMIN (Glucophage) 500 mg tablet Take 1 tablet by mouth twice a day. metoprolol tartrate (Lopressor) 50 mg tablet Take 50 mg by mouth in the morning and at bedtime. pantoprazole (ProtoNix) 40 mg EC tablet Take 40 mg by mouth if needed. pioglitazone (Actos) 30 mg tablet Take 30 mg by mouth in the morning. ramipril (Altace) 10 mg capsule Take 10 mg by mouth in the morning. simvastatin (Zocor) 20 mg tablet Take 20 mg by mouth at bedtime. venlafaxine XR (Effexor-XR) 75 mg 24 hr capsule No current facility-administered medications on file prior to visit. ROS: Review of Systems Cardiovascular: Positive for leg swelling. Respiratory: Positive for shortness of breath. Physical Exam: Constitutional General Appearance: well-nourished, well-developed, appears stated age Level of Distress: comfortable Psychiatric Mental Status: alert, normal affect Orientation: oriented to time, place, and person Insight: good judgement Eyes Lids and Conjunctivae: non-injected, no xanthelasma ENMT Ears: no lesions on external ear (more content not included)... [facility] Progress note 04-19-2024 Note Date & Type Note Facility 04-19-2024 Note PR Cardiology - [facility] Subjective Shirley Brian is [...] RVR when she was admitted to the [facility] with diarrhea due to C. difficile colitis [...] V1 to V3, (more content not included)... [facility] Progress note 04-19-2024 Note Date & Type Note Facility [...] All other systems reviewed and are negative. [facility] Progress note 11-08-2023 Note Date & Type Note Facility 11-08-2023 Note PR Electrophysiology Consult Note [facility] Reason for visit: Afib HPI: Shirley Brina is a 68 y.o. year old with past medical history of Hypertension, diabetes, dyslipidemia, palpitations. She was recently seen at the [facility] for A-fib RVR as she was admitted [...] Her insurance denied CTA coronaries, ordered by Christopher Mc CNP in Jun 2023. Denies chest pain. Still gets episodes of SOB w/ exertion. Has had intermittent palpitations the last couple weeks. Stress test done on 07/27/2023 does not show any evidence of reversible ischemia. below [id number] at least 4 for age, gender, hypertension, [...] rales, no rhonchi (more content not included)... [facility] Progress note 11-08-2023 Note Date & Type Note Facility 11-08-2023 Note Patient here for 4 m o follow up PAF, HFpEF, and valve disorder. Her insurance denied CTA coronaries, ordered by Christopher Mc CNP in Jun 2023. Denies chest pain. Still gets episodes of SOB w/ exertion. Has had intermittent palpitations the last couple weeks. Review of Systems HENT: Positive for nosebleeds. Cardiovascular: Positive for dyspnea on exertion, leg swelling (minimal) and palpitations. Musculoskeletal: Positive for arthritis and joint pain. All other systems reviewed and are negative. [facility] Evaluation note 02-16-2022 Note Date & Type Note Facility 02-16-2022 Evaluation note Encounter Date Diagnosis Assessment [...] exam and duration of symptoms. May use [place] or Flonase as directed. May use Zofran [...] Patient care instructions given in writting by [facility] document [employer] Other Evaluation note 10-26-2021 Note Date & Type Note Facility 10-26-2021 Evaluation note Encounter Date Diagnosis Assessment Notes Oct, Encounter for screening for other viral diseases (ICD-10 - Z11.59) Oct, Other Additional time spent conducting pre-visit phone call, screening for symptoms, instructions on social distancing, application and removal of PPE, and cleaning of examination room, equipment and supplies was preformed. Patient education given for testing methodology and results. Patient care instructions given in writting by [facility] document. [employer] Other History general Narrative - Reported Note Date & Type Note Facility History general Narrative - Reported Type Medical History Diabetes Medical History HTN (hypertension) Medical History Anxiety Medical History Uterine cancer Surgical History hysterectomy Surgical History C section Surgical History tonsillectomy Surgical History appendectomy Surgical History cholecystectomy Surgical History colonoscopy Surgical History biopsy Hospitalization History pneumonia Hospitalization History see above [employer] Other Summary Purpose Family History No Family History Records FoundNo Family History Records FoundNo Family History Records Found Advance Directives No Advanced Directives Records FoundNo Advanced Directives Records FoundNo Advanced Directives Records Found Additional Source Comments INFORMATION SOURCE (unrecogn ized section and content) DATE CREATED AUTHOR 06/18/2020 Vicco Naehas [facility] DATE CREATED AUTHOR AUTHOR'S ORGANIZ ATION 10/01/2022 [facility] DATE CREATED AUTHOR AUTHOR'S ORGANIZ ATION 08/07/2024 [facility] REASON FOR VISIT (unrecogniz ed section and [...] BE BASED ON THE PRIMARY CLINICAL RECORDS. [employer] [facility]. provides no warranty or guarantee of the accuracy or completeness of information in this document.
== END 2024-08-14 20:50 | disposition home or self-care (01) ==
LOC: SLEEP 20:49
PROVIDERS: PCP Internal Medicine Cardiovascular Disease; Visit Provider Internal Medicine Cardiovascular Disease
DX: G47.33 Obstructive sleep apnea (adult) (pediatric) (principal)
CPT/HCPCS: 95810

== ENCOUNTER 2024-09-21 08:47 | Outpatient (OUT) | payer OTHER, SELFPAY ==
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
[2024-09-21 09:11] LABS: Basophils Percent Auto 0.6 % (0.2-2.0); Eosinophils Absolute Auto 0.3 10^3/uL (0.0-0.7); Eosinophils Percent Auto 6.2 % (0.9-7.0); Hematocrit 29.4 % (36.0-48.0); Hemoglobin 8.2 g/dL (12.0-16.0); Immature Granulocytes Abs Auto 0.01 10^3/uL (0.00-0.03); Immature Granulocytes Pct Auto 0.2 % (0.0-0.5); Lymphocytes Absolute Auto 1.2 10^3/uL (1.2-3.8); Lymphocytes Percent Auto 24.3 % (20.5-60.0); Mean Corpuscular HGB Conc 27.9 g/dL (29.9-35.2); Mean Corpuscular Hemoglobin 21.2 pg (26.7-34.0); Mean Corpuscular Volume 76.2 fL (81.0-99.0); Mean Platelet Volume 10.7 fL (9.5-13.5); Monocytes Absolute Auto 0.4 10^3/uL (0.3-0.8); Monocytes Percent Auto 8.5 % (1.7-12.0); Neutrophils Absolute Auto 2.9 10^3/uL (1.4-6.5); Neutrophils Percent Auto 60.2 % (43.0-75.0); Platelet Count 134 10^3/uL (150-450); Red Cell Distribution Width 17.5 % (11.0-15.0); White Blood Count 4.8 10^3/uL (4.0-11.0)
[2024-09-21 09:27] LABS: Estimated Average Glucose 289 mg/dL; Glycohemoglobin A1C 11.7 % (4.5-6.2)
[2024-09-21 09:33] LABS: Red Blood Count 3.86 10^6/uL (4.20-5.40)
[2024-09-21 09:39] LABS: Alanine Aminotransferase 22 U/L (14-59); Albumin Globulin Ratio 0.7; Albumin Level 2.6 g/dL (3.4-5.0); Alkaline Phosphatase 99 U/L (46-116); Anion Gap 16.2; Aspartate Amino Transferase 23 U/L (15-37); BUN Creatinine Ratio 23.5; Calcium 8.3 mg/dL (8.5-10.1); Carbon Dioxide 23.7 mmol/L (21.0-32.0); Chloride 107 mmol/L (98-107); Chol HDL Ratio 3.3; Cholesterol 118 mg/dL (<=200); Estimated GFR (African America >60 (>=60 mL/min/1.73m^2); Estimated GFR (Non-African Ame >60 (>=60 mL/min/1.73m^2); Free T3 2.28 pg/mL (2.18-3.98); Glucose 287 mg/dL (74-106); HDL Cholesterol 36 mg/dL (40-60); Potassium 3.9 mmol/L (3.5-5.1); Sodium 143 mmol/L (136-145); Total Protein 6.6 g/dL (6.4-8.2); Triglycerides 111 mg/dL (<=150); VLDL CHOLESTEROL 22.2 mg/dL
== END 2024-09-21 08:48 | disposition home or self-care (01) ==
LOC: LAB 08:52
PROVIDERS: PCP Family Medicine; Visit Provider Family Medicine
DX: I12.9 Hypertensive chronic kidney disease with stage 1 through stage 4 chronic kidney disease, or unspecified chronic kidney disease (principal); N18.9 Chronic kidney disease, unspecified; E11.22 Type 2 diabetes mellitus with diabetic chronic kidney disease; I48.91 Unspecified atrial fibrillation
CPT/HCPCS: 36415; 80053; 80061; 83036; 84436; 84443; 84481; 85025

== ENCOUNTER 2024-09-28 10:15 | Outpatient (RCR) | payer OTHER, SELFPAY ==
[2024-09-28] VITALS (7 sets, daily range): BP systolic 131–151; BP diastolic 72–79; PULSE 56–72; TEMP 35.9–36.9; O2SAT 98
[2024-09-28 10:25] LABS: Basophils Absolute Auto 0.1 10^3/uL (0.0-0.1); Eosinophils Absolute Auto 0.3 10^3/uL (0.0-0.7); Eosinophils Percent Auto 5.4 % (0.9-7.0); Hematocrit 30.8 % (36.0-48.0); Hemoglobin 8.5 g/dL (12.0-16.0); Immature Granulocytes Abs Auto 0.02 10^3/uL (0.00-0.03); Immature Granulocytes Pct Auto 0.4 % (0.0-0.5); Lymphocytes Absolute Auto 1.3 10^3/uL (1.2-3.8); Lymphocytes Percent Auto 26.9 % (20.5-60.0); Mean Corpuscular HGB Conc 27.6 g/dL (29.9-35.2); Mean Corpuscular Hemoglobin 21.4 pg (26.7-34.0); Mean Corpuscular Volume 77.6 fL (81.0-99.0); Monocytes Absolute Auto 0.4 10^3/uL (0.3-0.8); Monocytes Percent Auto 8.4 % (1.7-12.0); Neutrophils Absolute Auto 2.9 10^3/uL (1.4-6.5); Neutrophils Percent Auto 57.9 % (43.0-75.0); Platelet Count 146 10^3/uL (150-450); Red Blood Count 3.97 10^6/uL (4.20-5.40); Red Cell Distribution Width 17.8 % (11.0-15.0)
[2024-09-28 10:36] LABS: Internal Control Within Normal Limits; Occult Blood Positive
--- NOTE | 2024-09-28 15:59 | PC.NURSE ---
Pt here for 2 units PRBC's. Transfusion consent form signed by pt. Transfusion was initiated at rate 75ml/hr x 15 min, then increased to 150ml/hr x 15 min, then max rate of 220ml/hr for remainder x both units. Tolerated w/o incident. D/c'd stable.
== END 2024-10-11 08:55 | disposition home or self-care (01) ==
LOC: INF 10:15
PROVIDERS: PCP Family Medicine; Visit Provider Family Medicine
DX: D50.0 Iron deficiency anemia secondary to blood loss (chronic) (principal); I12.9 Hypertensive chronic kidney disease with stage 1 through stage 4 chronic kidney disease, or unspecified chronic kidney disease; N18.9 Chronic kidney disease, unspecified; E11.22 Type 2 diabetes mellitus with diabetic chronic kidney disease; I48.91 Unspecified atrial fibrillation
CPT/HCPCS: 36415; 36430; 85025; 86850; 86900; 86901; 86923; G0328; P9016

== ENCOUNTER 2024-10-01 12:40 | Outpatient (OUT) | payer OTHER, SELFPAY ==
[2024-10-01 13:05] LABS: Basophils Percent Auto 0.6 % (0.2-2.0); Eosinophils Absolute Auto 0.2 10^3/uL (0.0-0.7); Eosinophils Percent Auto 4.4 % (0.9-7.0); Hematocrit 36.6 % (36.0-48.0); Hemoglobin 10.8 g/dL (12.0-16.0); Immature Granulocytes Abs Auto 0.01 10^3/uL (0.00-0.03); Immature Granulocytes Pct Auto 0.2 % (0.0-0.5); Lymphocytes Absolute Auto 1.7 10^3/uL (1.2-3.8); Lymphocytes Percent Auto 30.9 % (20.5-60.0); Mean Corpuscular HGB Conc 29.5 g/dL (29.9-35.2); Mean Corpuscular Hemoglobin 22.5 pg (26.7-34.0); Mean Corpuscular Volume 76.4 fL (81.0-99.0); Mean Platelet Volume 9.9 fL (9.5-13.5); Monocytes Absolute Auto 0.6 10^3/uL (0.3-0.8); Monocytes Percent Auto 10.2 % (1.7-12.0); Neutrophils Absolute Auto 2.9 10^3/uL (1.4-6.5); Neutrophils Percent Auto 53.7 % (43.0-75.0); Platelet Count 143 10^3/uL (150-450); Red Blood Count 4.79 10^6/uL (4.20-5.40); Red Cell Distribution Width 18.5 % (11.0-15.0); White Blood Count 5.4 10^3/uL (4.0-11.0)
== END 2024-10-01 12:41 | disposition home or self-care (01) ==
LOC: LAB 12:44
PROVIDERS: PCP Family Medicine; Visit Provider Family Medicine
DX: D64.9 Anemia, unspecified (principal)
CPT/HCPCS: 36415; 85025

== ENCOUNTER 2024-10-04 12:20 | Outpatient (OUT) | payer OTHER, SELFPAY ==
[2024-10-04 12:36] LABS: Basophils Percent Auto 0.7 % (0.2-2.0); Eosinophils Absolute Auto 0.3 10^3/uL (0.0-0.7); Eosinophils Percent Auto 4.4 % (0.9-7.0); Hematocrit 38.6 % (36.0-48.0); Hemoglobin 11.1 g/dL (12.0-16.0); Immature Granulocytes Abs Auto 0.01 10^3/uL (0.00-0.03); Immature Granulocytes Pct Auto 0.2 % (0.0-0.5); Lymphocytes Absolute Auto 1.6 10^3/uL (1.2-3.8); Lymphocytes Percent Auto 28.9 % (20.5-60.0); Mean Corpuscular HGB Conc 28.8 g/dL (29.9-35.2); Mean Corpuscular Hemoglobin 22.7 pg (26.7-34.0); Mean Corpuscular Volume 78.9 fL (81.0-99.0); Mean Platelet Volume 10.7 fL (9.5-13.5); Monocytes Absolute Auto 0.5 10^3/uL (0.3-0.8); Monocytes Percent Auto 8.1 % (1.7-12.0); Neutrophils Absolute Auto 3.3 10^3/uL (1.4-6.5); Neutrophils Percent Auto 57.7 % (43.0-75.0); Platelet Count 166 10^3/uL (150-450); Red Cell Distribution Width 18.7 % (11.0-15.0); White Blood Count 5.7 10^3/uL (4.0-11.0)
--- OUTSIDE RECORDS SUMMARY | 2024-10-04 12:45 | XMS_ITS | CCD ---
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 11.0-15.0 [facility] Comment on above: Performed By: #### C BC #### [facility] [address] [place] [address] Dr. Becky Josue Hematocrit (Bld) [Volume fraction] 43.5 % Normal 36.0-48.0 [facility] Comment on above: Performed By: #### C BC #### [facility] [address] [place] [address] Dr. Becky Josue Hemoglobin (Bld) [Mass/Vol] 13.7 g/dL Normal 12.0-16.0 [facility] Comment on above: Performed By: #### C BC #### [facility] [address] [place] [address] Dr. Becky Josue IG # 0.02 10e3/ul Normal 0.00-0.03 [facility] Comment on above: Performed By: #### C BC #### [facility] [address] [place] [address] Dr. Becky Josue IG % 0.4 % Normal 0.0-0.5 [facility] Comment on above: Performed By: #### C BC #### [facility] [address] [place] [address] Dr. Becky Josue LYMPH # 1.6 103/ul Normal 1.2-3.8 [facility] Comment on above: Performed By: #### C BC #### [facility] [address] [place] [address] Dr. Becky Josue Lymphocytes/100 WBC (Bld) 32.0 % Normal 20.5-60.0 [facility] Comment on above: Performed By: #### C BC #### [facility] [address] [place] [address] Dr. Becky Josue MANUAL DIFF REQ NO Normal [facility] Comment on above: Performed By: #### C BC #### [facility] [address] [place] [address] Dr. Becky Josue MCH (RBC) [Entitic mass] 29.5 pg Normal 26.7-34.0 [facility] Comment on above: Performed By: #### C BC #### [facility] [address] [place] [address] Dr. Becky Josue MCHC (RBC) [Mass/Vol] 31.5 g/dL Normal 29.9-35.2 [facility] Comment on above: Performed By: #### C BC #### [facility] [address] [place] [address] Dr. Becky Josue MCV (RBC) [Entitic vol] 93.5 fL Normal 81.0-99.0 [facility] Comment on above: Performed By: #### C BC #### [facility] [address] [place] [address] Dr. Becky Josue MONO # 0.4 103/ul Normal 0.3-0.8 [facility] Comment on above: Performed By: #### C BC #### [facility] [address] [place] [address] Dr. Becky Josue Monocytes/100 WBC (Bld) 8.8 % Normal 1.7-12.0 [facility] Comment on above: Performed By: #### C BC #### [facility] [address] [place] [address] Dr. Becky Josue NEUT # 2.7 103/ul Normal 1.4-6.5 [facility] Comment on above: Performed By: #### C BC #### [facility] [address] [place] [address] [address] Becky Josue Neutrophils/100 WBC (Bld) 54.3 % Normal 43.0-75.0 [facility] Comment on above: Performed By: #### C BC #### [facility] [address] [place] [address] [address] Becky Josue Platelet mean volume (Bld) [Entitic vol] 10.4 fL Normal 9.5-13.5 [facility] Comment on above: Performed By: #### C BC #### [facility] [address] [place] [address] Dr. Becky Josue PLT 158 103/ul Normal 150-450 [facility] Comment on above: Performed By: #### C BC #### [facility] [address] [place] [address] Dr. Becky Josue RBC 4.65 106/ul Normal 4.20-5.40 [facility] Comment on above: Performed By: #### C BC #### [facility] [address] [place] [address] Dr. Becky Josue WBC 4.9 103/ul Normal 4.0-11.0 [facility] Comment on above: Performed By: #### C BC #### [facility] [address] [place] [address] Dr. Becky Josue FREE THYROXINE INDEX T7on FTI 2.79 Normal [facility] Comment on above: Performed By: #### L IPID, CMP, T7, TSH ####[facility] [address] [place] [address]Dr. Becky Josue T3U 30.0 % Normal 23.5-40.5 [facility] Comment on above: Performed By: #### L IPID, CMP, T7, TSH ####[facility] [address] [place] [address]Dr. Becky Josue T4 [Mass/Vol] 9.30 ug/dL Normal 5.53-11.00 [facility] Comment on above: Performed By: #### L IPID, CMP, T7, TSH ####[facility] [address] [place], [place] [address]Dr. Becky Josue GLYCOHEMOGLOBIN A1Con 2020 ADA RECOMMENDATION ADA THERAPEUTIC TARGET 6.0 - 7.0 ACTION SUGGESTED > 7.0 Normal [facility] Comment on above: Performed By: #### A 1C #### [facility] [address] [place] [address] [address] Becky Josue Glucose [Mass/Vol] 229 mg/dL Normal [facility] Comment on above: Performed By: #### A 1C #### [facility] [address] [place] [address] [address] Becky Josue HbA1c (Bld) [Mass fraction] 9.6 % Critically high <=6.0 [facility] Comment on above: Performed By: #### A 1C #### [facility] [address] [place] [address] [address] Becky Josue IRONon 10-03-2021 Iron [Mass/Vol] 62.0 ug/dL Normal 37.0-170.0 [facility] Comment on above: Performed By: #### I MARLYN #### [facility] [address] [place] [address] [address] Becky Josue LIPID PROFILEon 10-03-2021 CHOL-HDL RATIO NORM SEE BELOW Normal [facility] Comment on above: Result Comment: 3.3 - 4.4 LOW RISK 4.4 - 7.1 AVERAGE RISK 7.1 - 11.0 MODERATE RISK >11.0 HIGH RISK Performed By: #### L IPID, CMP, T7, TSH #### [facility] [address] [place] [address] [address] Becky Josue Cholesterol [Mass/Vol] 172 mg/dL Normal <=200 [facility] Comment on above: Performed By: #### L IPID, CMP, T7, TSH #### [facility] [address] [place] [address] [address] Becky Josue Cholesterol in HDL [Mass/Vol] 38 mg/dL Normal [facility] Comment on above: Performed By: #### L IPID, CMP, T7, TSH #### [facility] [address] [place] [address] [address] Becky Josue Cholesterol in LDL [Mass/Vol] 89.0 mg/dL Normal [facility] Comment on above: Performed By: #### L IPID, CMP, T7, TSH #### [facility] [address] [place] [address] [address] Becky Josue Cholesterol.total/C holesterol in HDL [Mass ratio] 4.5 {ratio} Normal [facility] Comment on above: Performed By: #### L IPID, CMP, T7, TSH #### [facility] [address] [place] [address] [address] Becky Josue HDL NORMAL > or = 60 mg/dl - LO W CARDIOVASCULAR RISK <40 mg/dl - HIGH CARDIOVASCULAR RISK Normal [facility] Comment on above: Performed By: #### L IPID, CMP, T7, TSH #### [facility] [address] [place] [address] [address] Becky Josue LDL CALC NORMAL SEE BELOW Normal [facility] Comment on above: Result Comment: <100 mg/dl OPTIMAL 100 - 129 mg/dl NEAR OR ABOVE OPTIMAL 130 - 159 mg/dl BORDERLINE HIGH 160 - 189 mg/dl HIGH >190 mg/dl VERY HIGH Performed By: #### L IPID, CMP, T7, TSH #### [facility] [address] [place] [address] [address] Becky Josue Triglyceride [Mass/Vol] 225 mg/dL Critically high <=150 [facility] Comment on above: Performed By: #### L IPID, CMP, T7, TSH #### [facility] [address] [place] [address] [address] Becky Josue VLDL CALC 45.0 mg/dL Normal [facility] Comment on above: Performed By: #### L IPID, CMP, T7, TSH #### [facility] [address] [place] [address] [address] Becky Josue PROF 14(COMP METB)on 021 Albumin [Mass/Vol] 3.1 g/dL Critically low 3.5-5.0 [facility] Comment on above: Performed By: #### L IPID, CMP, T7, TSH #### [facility] [address] [place] [address] [address] Becky Josue Albumin/Globulin [Mass ratio] 0.8 {ratio} Normal [facility] Comment on above: Performed By: #### L IPID, CMP, T7, TSH #### [facility] [address] [place] [address] Dr. Becky Josue ALP [Catalytic activity/Vol] 100 U/L Normal 38-126 [facility] Comment on above: Performed By: #### L IPID, CMP, T7, TSH #### [facility] [address] [place] [address] Dr. Becky Josue ALT [Catalytic activity/Vol] 35 U/L Normal 9-52 [facility] Comment on above: Performed By: #### L IPID, CMP, T7, TSH #### [facility] [address] [place] [address] [address] Becky Josue Anion gap [Moles/Vol] 13.0 mmol/L Normal [facility] Comment on above: Performed By: #### L IPID, CMP, T7, TSH #### [facility] [address] [place] [address] [address] Becky Josue AST [Catalytic activity/Vol] 27 U/L Normal 14-36 [facility] Comment on above: Performed By: #### L IPID, CMP, T7, TSH #### [facility] [address] [place] [address] [address] Becky Josue Bilirubin [Mass/Vol] 0.8 mg/dL Normal 0.2-1.3 [facility] Comment on above: Performed By: #### L IPID, CMP, T7, TSH #### [facility] [address] [place] [address] [address] Becky Josue Calcium [Mass/Vol] 8.9 mg/dL Normal 8.4-10.2 [facility] Comment on above: Performed By: #### L IPID, CMP, T7, TSH #### [facility] [address] [place] [address] [address] Becky Josue Chloride [Moles/Vol] 103 mmol/L Normal 98-107 [facility] Comment on above: Performed By: #### L IPID, CMP, T7, TSH #### [facility] [address] [place] [address] [address] Becky Josue CO2 [Moles/Vol] 30.3 mmol/L Critically high 22.0-30.0 [facility] Comment on above: Performed By: #### L IPID, CMP, T7, TSH #### [facility] [address] [place] [address] Dr. Becky Josue Creatinine [Mass/Vol] 0.72 mg/dL Normal 0.52-1.04 [facility] Comment on above: Performed By: #### L IPID, CMP, T7, TSH #### [facility] [address] [place] [address] Dr. Becky Josue EGFR-AF CAMEROONIAN >60 Normal >=60 [facility] Comment on above: Performed By: #### L IPID, CMP, T7, TSH #### [facility] [address] [place] [address] Dr. Becky Josue EGFR-NON AF CAMEROONIAN >60 Normal >=60 [facility] Comment on above: Performed By: #### L IPID, CMP, T7, TSH #### [facility] [address] [place] [address] Dr. Becky Josue Globulin (S) [Mass/Vol] 3.9 g/dL Normal [facility] Comment on above: Performed By: #### L IPID, CMP, T7, TSH #### [facility] [address] [place] [address] Dr. Becky Josue Glucose [Mass/Vol] 261 mg/dL Critically high 74-106 [facility] Comment on above: Performed By: #### L IPID, CMP, T7, TSH #### [facility] [address] [place] [address] Dr. Becky Josue Potassium [Moles/Vol] 4.3 mmol/L Normal 3.4-5.0 [facility] Comment on above: Performed By: #### L IPID, CMP, T7, TSH #### [facility] [address] [place] [address] [address] Becky Josue Protein [Mass/Vol] 7.0 g/dL Normal 6.1-8.2 [facility] Comment on above: Performed By: #### L IPID, CMP, T7, TSH #### [facility] [address] [place] [address] [address] Becky Josue Sodium [Moles/Vol] 142 mmol/L Normal 137-145 [facility] Comment on above: Performed By: #### L IPID, CMP, T7, TSH #### [facility] [address] [place] [address] [address] Becky Josue Urea nitrogen [Mass/Vol] 22.0 mg/dL Critically high 7.0-17.0 [facility] Comment on above: Performed By: #### L IPID, CMP, T7, TSH #### [facility] [address] [place] [address] [address] Becky Josue Urea nitrogen/Creatinine [Mass ratio] 30.6 mg/mg Normal [facility] Comment on above: Performed By: #### L IPID, CMP, T7, TSH #### [facility] [address] [place] [address] [address] Becky Josue TSHon 10-03-2021 TSH 2.809 uIU/mL Normal 0.470-4.680 [facility] Comment on above: Performed By: #### L IPID, CMP, T7, TSH ####[facility] [address] [place] [address]Dr. Becky Josue TSH RANGE SEE BELOW Normal [facility] Comment on above: Result Comment: <0.3 4 UIU/ml HYPERTHYROID 0.34-5.60 UIU/ml EUTHYROID >5.60 UIU/ml HYPOTHYROID Performed By: #### L IPID, CMP, T7, TSH ####[facility] [address] [place], [place] [address]MgBrayan Josue Vital Signs Date Time Vital Sign Value Performing Clinician Facility 10-03-2024 14:06-0500 Blood Pressure Location Manoj [email or web address] 10-03-2024 14:06-0500 Diastolic blood pressure 68 mm[Hg] Manoj SproomL [facility] 10-03-2024 14:06-0500 Heart rate 72 /min Manoj [email or web address] [facility] 10-03-2024 14:06-0500 Respiratory rate 16 /min Manoj [email or web address] 10-03-2024 14:06-0500 Systolic blood pressure 132 mm[Hg] Manoj [email or web address] [facility] 02-16-2022 12:30-0400 Body height 167.64 cm Ashley Cox Other [employer] [facility] [employer] Other 02-16-2022 12:30-0400 Body mass index (BMI) [Ratio] 34.21 kg/m2 Ashley Cox Other [employer] Other 02-16-2022 12:30-0400 Body temperature 97.8 [degF] Ashley Cox Other [employer] Other 02-16-2022 12:30-0400 Body weight 96.16 kg Ashley Cox Other [employer] Other 02-16-2022 12:30-0400 Respiratory rate 18 /min Ashley Cox Other [employer] Other 02-16-2022 12:30-0400 SaO2% (BldA) [Mass fraction] 97 % Ashley Cox Other [employer] Other Encounters Encounter Date Encounter Type Care Provider Facility Start: 10-03-2024 ambulatory Manoj Lemus YESISultana Facility :[facility] Start: 10-03-2024 End: 10-03-2024 Patient encounter procedure Manoj Lemus JOSE ALBERTO [facility] Start: 09-13-2024 ambulatory [facility] Start: 09-03-2024 ambulatory [facility] Start: 08-06-2024 End: 08-06-2024 ambulatory [facility] Start: 07-03-2024 End: 07-03-2024 ambulatory [facility] Start: 04-19-2024 End: 04-19-2024 ambulatory [facility] Start: 11-08-2023 End: 11-08-2023 ambulatory [facility] Start: 09-24-2022 End: 09-25-[address] MARYJANE VALENCIA Facility: Start: 02-16-2022 End: 02-16-2022 ambulatory Ashley Cox Other [employer] Other Start: 02-16-2022 Office outpatient vi sit 15 minutes Ashley Cox [facility] Start: 10-26-2021 End: 10-26-2021 ambulatory Soco Hernandez Other [employer] Other Start: 10-26-2021 Office outpatient vi sit 5 minutes Soco Hernandez [facility] Start: 10-12-2021 End: 10-13-[address] MARYJANE VALENCIA Facility: Start: 10-08-2021 Encounter for genera l adult medical examination without abnormal findings DR MARYJANE VALENCIA [facility] Start: 10-03-2021 End: 10-04-[address] MARYJANE VALENCIA Facility:[facility] Start: 10-03-2021 End: 10-04-2021 Encounter for general adult medical examination without abnormal findings DR MARYJANE VALENCIA Facility:[facility] Procedures Date Procedure Procedure Detail Performing Clinician Start: 05-21-2020 Colonoscopy Manoj NI LL Start: 03-14-2008 Colonoscopy Manoj NI LL Appendectomy Manoj NILL section Manoj NIL L Cholecystectomy Manoj NILL Repair of musculoten dinous cuff of shoulder Manoj NILL Repair of right ingu inal hernia Manoj NILL Repair of umbilical hernia M ichdannielle NILL Tonsillectomy Manoj NILL Total abdominal hysterectomy Manoj NILL Immunizations Immunization Date Immunization Notes Care Provider Fa cility 09-29-2021 SARS-CoV-2 (COVID-19 ) mRNA BNT-162b2 vax Manoj NILL [facility] 01-25-2021 SARS-CoV-2 (COVID-19 ) Ad26 vaccine, recombinant Manoj NILL [facility] Payers Date Payer Category Payer Unknown [id number] 1955 Unknown [id number] 2.16.84 [id number] 1955 Unknown [id number] 2.16.84 [id number] 1955 Unknown [id number] 2.16.84 [id number] 1955 Unknown [id number] [id number] Medicare [id number] 2.1 [id number] Social History Date Type Detail Facility Sex Assigned At [facility] Start: 10-03-2024 Tobacco smoking status Never s moked tobacco (finding) [facility] Tobacco smoking status Never [facility] Functional Status Date Assessment Result Facility 10-03-2024 Functional Status N/A [facility] Clinical Notes 10-26-2021 to 08-06-2024 Note Date & Type Note Facility 08-06-2024 Note LOOP IMPLANT PROCEDU RE NOTE DATE OF PROCEDURE: 08/06/24 PERFORMING PHYSICIAN: Dr. Rogers Catalan POULTRY RAISER: REJI INDICATIONS FOR PROCEDURE: 1. SVT/AF surveillance [...] the sternum on the left using the [employer] tool. The loop recorder was then injected [...] the incision. Rogers Catalan MD Cardiac Electrophysiology. [facility] 07-03-2024 Note [place] Electrophysiology Consult Note [facility] Reason for visit: Afib 07/03/24 Pt is doing well and occasionally feels palpitations. HPI: Shirley Brian is a 68 y.o. year old with past medical history of Hypertension, diabetes, dyslipidemia, palpitations. She was recently seen at the [facility] for A-fib RVR as she was admitted for diarrhea and palpitations. She was found to have C. difficile and was treated with antibiotics and converted to sinus rhythm on her own. She states she normally would get palpitations when she drinks caffeine and typically avoids caffeine, the day of her admission she believes she was given caffeinated coffee at [facility] and then began experience palpitations while [...] show any evidence of reversible ischemia. below [id number] at least 4 for age, gender, hypertension, [...] on file Intimate Partner Violence: Unknown (01/12/2024) [place] Safety & Environment Fear of Current or [...] on external ear (more content not included)... [facility] 04-19-2024 Note Patient here for 6 m [...] All other systems reviewed and are negative. [facility] 04-19-2024 Note [place] Cardiology - [facility] Subjective Shirley A Roc is a 68 y.o. year old female [...] RVR when she was admitted to the [facility] with diarrhea due to C. difficile colitis and she converted back to sinus rhythm spontaneously. She was started on beta-samantha and Eliquis. She also has history of [...] V1 to V3, (more content not included)... [facility] 11-08-2023 Note Patient here for 4 m [...] All other systems reviewed and are negative. [facility] 11-08-2023 Note [place] Electrophysiology Consult Note [facility] Reason for visit: Afib HPI: Shirley Brian is a 68 y.o. year old with past medical history of Hypertension, diabetes, dyslipidemia, palpitations. She was recently seen at the [facility] for A-fib RVR as she was admitted for diarrhea and palpitations. She was found to have C. difficile and was treated with antibiotics and converted to sinus rhythm on her own. She states she normally would get palpitations when she drinks caffeine and typically avoids caffeine, the day of her admission she believes she was given caffeinated coffee at [facility] and then began experience palpitations while already dealing with her diarrhea so she was seen by ER. She had also been experiencing lower extremity swelling and was diuresed and patient which has resolved. She for some reason [facility] and stress test [...] show any evidence of reversible ischemia. below [id number] at least 4 for age, gender, hypertension, [...] rales, no rhonchi (more content not included)... [facility] 02-16-2022 Evaluation note Encounter Date Diagnosis Assessment [...] exam and duration of symptoms. May use [place] or Flonase as directed. May use [employer] [...] Patient care instructions given in writting by [employer] document [employer] Other 12-06-2021 Evaluation note* Encounter Date Diagnosis [...] Patient care instructions given in writting by [employer] document. [employer] Other Evaluation + Plan note No data available for this section [facility] History general Narrative - Reported* Type Description Date Medical History Diabetes Medical History HTN (hypertension) Medical History Anxiety Medical History Uterine cancer Surgical History hysterectomy Surgical History C section Surgical History tonsillectomy Surgical History appendectomy Surgical History cholecystectomy Surgical History colonoscopy Surgical History biopsy Hospitalization History pneumonia Hospitalization History see above [employer] Other Hospital Discharge instructions No data available for this section [facility] Progress note No data available for this section [facility] Summary Purpose Family History No Family History Records FoundNo Family History Records FoundNo Family History Records Found No data available for this section Advance Directives No Advanced Directives Records FoundNo Advanced Directives Records FoundNo Advanced Directives Records Found Additional Source Comments REASON FOR VISIT (unrecogniz ed section and content) #14 RED BUICK, EXPOSED, COVI D Nurse Visit- Self [employer] CRV, B/A, SOB, COUGH INFORMATION SOURCE (unrecogn ized section and content) DATE CREATED AUTHOR 10/01/2022 [facility] DATE CREATED AUTHOR AUTHOR'S ORGANIZ ATION 09/14/2024 [facility] DATE CREATED AUTHOR AUTHOR'S ORGANIZ ATION 10/01/2024 [facility] Patient Care team informatio n (unrecognized section and content) Personnel Name: Maryjane Valencia MD Address: Address: [address] [place] [address] FOR RECORDS PERTAINING TO PATIENTS WHO ARE [...] BE BASED ON THE PRIMARY CLINICAL RECORDS. [employer] [facility]. provides no warranty or guarantee of the accuracy or completeness of information in this document.
[2024-10-04 12:57] LABS: Red Blood Count 4.89 10^6/uL (4.20-5.40)
== END 2024-10-04 12:21 | disposition home or self-care (01) ==
LOC: LAB 12:22
PROVIDERS: PCP Family Medicine; Visit Provider Family Medicine
DX: D64.9 Anemia, unspecified (principal)
CPT/HCPCS: 36415; 85025

== ENCOUNTER 2024-10-24 20:58 | Outpatient (OUT) | payer OTHER, SELFPAY ==
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
== END 2024-10-24 20:59 | disposition home or self-care (01) ==
LOC: SLEEP 20:59
PROVIDERS: PCP Internal Medicine Cardiovascular Disease; Visit Provider Internal Medicine Cardiovascular Disease
DX: G47.33 Obstructive sleep apnea (adult) (pediatric) (principal)
CPT/HCPCS: 95811

== ENCOUNTER 2024-10-30 15:04 | Outpatient (OUT) | payer OTHER, SELFPAY | END 2024-10-30 15:05 | disposition home or self-care (01) | LOC: PST 15:05 | PROVIDERS: PCP Internal Medicine Cardiovascular Disease; Visit Provider Surgery | DX: Z01.818 Encounter for other preprocedural examination (principal); R19.4 Change in bowel habit; K92.1 Melena ==

== ENCOUNTER 2024-11-02 08:20 | Emergency (ER) | payer OTHER, SELFPAY ==
[2024-11-02] VITALS (15 sets, daily range): BP systolic 116–136; BP diastolic 76–107; PULSE 55–124; TEMP 36.8; O2SAT 96–100; BMI 33.9
--- NOTE | 2024-11-02 08:33 | ECG_ITS ---
[facility] Test Date: 2024-11-02 Pat Name: CONNIE WISE Department: Room: - Gender: Female [employer]: : 1955 Requested By: MARYJANE REYNOLDS Order Number: [id number] Reading MD: MARYJANE REYNOLDS Measurements Intervals [place] Rate: 103 P: -[id number] MI: -[id number] QRS: 30 QRSD: 70 T: 92 QT: 306 QTc: 365 Interpretive Statements 1250 Atrial flutter 4068 Nonspecific Twave abnormality 8102 Low QRS voltage in chest leads 9140 abnormal rhythm ECG Compared to ECG 05/25/2023 11:42:28 Sinus rhythm no longer present Electronically Signed On 11-06-2024 6:52:36 EST by MARYJANE REYNOLDS
[2024-11-02 08:49] LABS: Basophils Percent Auto 0.6 % (0.2-2.0); Eosinophils Absolute Auto 0.1 10^3/uL (0.0-0.7); Eosinophils Percent Auto 1.9 % (0.9-7.0); Hematocrit 36.6 % (36.0-48.0); Immature Granulocytes Abs Auto 0.02 10^3/uL (0.00-0.03); Immature Granulocytes Pct Auto 0.3 % (0.0-0.5); Lymphocytes Absolute Auto 1.6 10^3/uL (1.2-3.8); Lymphocytes Percent Auto 22.6 % (20.5-60.0); Mean Corpuscular HGB Conc 30.1 g/dL (29.9-35.2); Mean Corpuscular Hemoglobin 23.6 pg (26.7-34.0); Mean Corpuscular Volume 78.4 fL (81.0-99.0); Mean Platelet Volume 10.9 fL (9.5-13.5); Monocytes Absolute Auto 0.6 10^3/uL (0.3-0.8); Monocytes Percent Auto 8.5 % (1.7-12.0); Neutrophils Absolute Auto 4.6 10^3/uL (1.4-6.5); Neutrophils Percent Auto 66.1 % (43.0-75.0); Platelet Count 178 10^3/uL (150-450); Red Blood Count 4.67 10^6/uL (4.20-5.40); Red Cell Distribution Width 20.1 % (11.0-15.0)
--- OUTSIDE RECORDS SUMMARY | 2024-11-02 08:51 | XMS_ITS | CCD ---
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 T7, TSH #### [facility] [address] [place] [address] Dr. Becky Josue Chloride [Moles/Vol] 103 mmol/L Normal 98-107 [facility] Comment on above: Performed By: #### L IPID, CMP, T7, TSH #### [facility] [address] [place] [address] Dr. Becky Josue CO2 [Moles/Vol] 30.3 mmol/L Critically high 22.0-30.0 [facility] Comment on above: Performed By: #### L IPID, CMP, T7, TSH #### [facility] [address] [place] [address] Dr. Becky Josue Creatinine [Mass/Vol] 0.72 mg/dL Normal 0.52-1.04 [facility] Comment on above: Performed By: #### L IPID, CMP, T7, TSH #### [facility] [address] [place] [address] Dr. Becky Josue EGFR-AF TANZANIAN >60 Normal >=60 [facility] Comment on above: Performed By: #### L IPID, CMP, T7, TSH #### [facility] [address] [place] [address] Dr. Becky Josue EGFR-NON AF TANZANIAN >60 Normal >=60 [facility] Comment on above: Performed By: #### L IPID, CMP, T7, TSH #### [facility] [address] [place] [address] Dr. Becky Josue Globulin (S) [Mass/Vol] 3.9 g/dL Normal [facility] Comment on above: Performed By: #### L IPID, CMP, T7, TSH #### [facility] [address] [place] [address] Dr. Becky Josue Glucose [Mass/Vol] 261 mg/dL Critically high 74-106 [facility] Comment on above: Performed By: #### L IPID, CMP, T7, TSH #### [facility] [address] [place] [address] Dr. Becky Josue Potassium [Moles/Vol] 4.3 mmol/L Normal 3.4-5.0 [facility] Comment on above: Performed By: #### L IPID, CMP, T7, TSH #### [facility] [address] [place] [address] Dr. Becky Josue Protein [Mass/Vol] 7.0 g/dL Normal 6.1-8.2 [facility] Comment on above: Performed By: #### L IPID, CMP, T7, TSH #### [facility] [address] [place] [address] Dr. Becky Josue Sodium [Moles/Vol] 142 mmol/L Normal 137-145 [facility] Comment on above: Performed By: #### L IPID, CMP, T7, TSH #### [facility] [address] [address] [address] Becky Josue Urea nitrogen [Mass/Vol] 22.0 mg/dL Critically high 7.0-17.0 [facility] Comment on above: Performed By: #### L IPID, CMP, T7, TSH #### [facility] [address] [place], [place] [address] Dr. Becky Josue Urea nitrogen/Creatinine [Mass ratio] 30.6 mg/mg Normal [facility] Comment on above: Performed By: #### L IPID, CMP, T7, TSH #### [facility] [address] [place], [place] [address] Dr. Becky Josue TSHon 10-03-2021 TSH 2.809 uIU/mL Normal 0.470-4.680 [facility] Comment on above: Performed By: #### L IPID, CMP, T7, TSH ####[facility] [id number] [id number] Becky Josue TSH RANGE SEE BELOW Normal [facility] Comment on above: Result Comment: <0.3 4 UIU/ml HYPERTHYROID 0.34-5.60 UIU/ml EUTHYROID >5.60 UIU/ml HYPOTHYROID Performed By: #### L IPID, CMP, T7, TSH ####[facility] [id number] [id number] Becky Josue Vital Signs Date Time Vital Sign Value Performing Clinician Facility 10-03-2024 14:06-0500 Blood Pressure Location Manoj ABRAMS [facility] 10-03-2024 14:06-0500 Diastolic blood pressure 68 mm[Hg] Manoj ABRAMS [facility] 10-03-2024 14:06-0500 Heart rate 72 /min Manoj KEYL [facility] 10-03-2024 14:06-0500 Respiratory rate 16 /min Manoj ABRAMS [facility] 10-03-2024 14:06-0500 Systolic blood pressure 132 mm[Hg] Manoj ABARMS [facility] [place] 02-16-2022 12:30-0400 Body height 167.64 cm Ashley Cox Other [facility] [employer] Other 02-16-2022 12:30-0400 Body mass index (BMI) [Ratio] 34.21 kg/m2 Ashley Cox Other [employer] Other 02-16-2022 12:30-0400 Body temperature 97.8 [degF] Ashley Cox Other [facility] [facility] Other 02-16-2022 12:30-0400 Body weight 96.16 kg Ashley Cox Other [employer] Other 02-16-2022 12:30-0400 Respiratory rate 18 /min Ashley Cox Other [employer] Other 02-16-2022 12:30-0400 SaO2% (BldA) [Mass fraction] 97 % Ashley Cox Other [employer] Other Encounters Encounter Date Encounter Type Care Provider Facility Start: 10-22-2024 ambulatory [facility] Start: 10-08-2024 ambulatory [facility] Start: 10-03-2024 End: 10-03-2024 ambulatory Manoj ABRAMS Facility:[facility] Start: 10-03-2024 End: 10-03-2024 Patient encounter procedure Manoj ABRAMS [facility] [place] Start: 09-13-2024 ambulatory [facility] Start: 09-03-2024 ambulatory [facility] Start: 08-06-2024 End: 08-06-2024 ambulatory [facility] Start: 07-03-2024 End: 07-03-2024 ambulatory [facility] Start: 04-19-2024 End: 04-19-2024 [facility] Start: 11-08-2023 End: 11-08-2023 ambulatory [facility] Start: 09-24-2022 End: 09-25-[address] MARYJANE VALENCIA Facility:[facility] Start: 02-16-2022 End: 02-16-2022 ambulatory Ashley Cox Other [employer] Other Start: 02-16-2022 Office outpatient vi sit 15 minutes Ashley Cox [facility] Start: 10-26-2021 End: 10-26-2021 ambulatory Soco Hernandez Other [employer] Other Start: 10-26-2021 Office outpatient vi sit 5 minutes Soco Hernandez [facility] Start: 10-12-2021 End: 10-13-[address] MARYJANE VALENCIA Facility:[facility] Start: 10-08-2021 Encounter for genera l adult medical examination without abnormal findings DR MARYJANE VALENCIA [facility] Start: 10-03-2021 End: 10-04-2021 ambulatory [...] (COVID-19 ) mRNA BNT-162b2 vax Manoj NILL [facility] 01-25-2021 SARS-CoV-2 (COVID-19 ) Ad26 vaccine, recombinant Manoj ABRAMS [facility] Payers Date Payer Category Payer Unknown [id number] 1955 Unknown [id number] [id number] [id number] 1955 Unknown [id number] 2.16.84 [id number] 1955 Unknown [id number] 2.16.84 [id number] 1955 Unknown [id number] [id number] Medicare [id number] 2.1 [id number] Social History Date Type Detail Facility Sex Assigned At [facility] Start: 10-03-2024 Tobacco smoking status Never s moked tobacco (finding) [facility] Tobacco smoking status Never [facility] Functional Status Date Assessment Result Facility 10-03-2024 Functional Status N/A [facility] Clinical Notes 10-26-2021 to 10-03-2024 Note [...] 5 mg oral (more content not included)... [facility] Comment on above: Result Comment: Elec tronically Signed By: JOSE ALBERTO MARRERO, Maonj Wilson\Date and Time Signed: 10/03/24 14:54 EST 08-06-2024 Note LOOP IMPLANT PROCEDU RE NOTE DATE OF PROCEDURE: 08/06/24 PERFORMING PHYSICIAN: Dr. Rogers Catalan MANAGER ASSESSMENT: REJI INDICATIONS FOR PROCEDURE: 1. SVT/AF surveillance [...] the sternum on the left using the Coherent Path tool. The loop recorder was then injected [...] the incision. Rogers Catalan MD Cardiac Electrophysiology. [facility] 07-03-2024 Note [place] Electrophysiology Consult Note [facility] Reason for visit: Afib 07/03/24 Pt is doing well and occasionally feels palpitations. HPI: Shirley Brian is a 68 y.o. year old with past medical history of Hypertension, diabetes, dyslipidemia, palpitations. She was recently seen at the [facility] for A-fib RVR as she was admitted for diarrhea and palpitations. She was found to have C. difficile and was treated with antibiotics and converted to sinus rhythm on her own. She states she normally would get palpitations when she drinks caffeine and typically avoids caffeine, the day of her admission she believes she was given caffeinated coffee at [facility] and then began experience palpitations while already dealing with her diarrhea so she was seen by ER. She had also been experiencing lower extremity swelling and was diuresed and patient which has resolved. She for some reason was deferred to [facility] for follow up and stress test [...] show any evidence of reversible ischemia. below [id number] at least 4 for age, gender, hypertension, [...] on file Intimate Partner Violence: Unknown (01/12/2024) [place] Safety & Environment Fear of Current or [...] on external ear (more content not included)... [facility] 04-19-2024 Note [place] Cardiology - [facility] Subjective Shirleyfuad Brian is a 68 [...] she was admitted to the [facility] with diarrhea due to C. difficile [...] V1 to V3, (more content not included)... [facility] 04-19-2024 Note Patient here for 6 [...] All other systems reviewed and are negative. [facility] 11-08-2023 Note [place] Electrophysiology Consult Note [facility] Clinic Reason for visit: Afib HPI: Shirley Brian is a 68 y.o. year old with past medical history of Hypertension, diabetes, dyslipidemia, palpitations. She was recently seen at the [facility] for A-fib RVR as she was admitted for diarrhea and palpitations. She was found to have C. difficile and was treated with antibiotics and converted to sinus rhythm on her own. She states she normally would get palpitations when she drinks caffeine and typically avoids caffeine, the day of her admission she believes she was given caffeinated coffee at [facility] and then began experience palpitations while already [...] show any evidence of reversible ischemia. below [id number] at least 4 for age, gender, hypertension, [...] rales, no rhonchi (more content not included)... [facility] 11-08-2023 Note Patient here for 4 [...] All other systems reviewed and are negative. [facility] 02-16-2022 Evaluation note Encounter Date Diagnosis [...] exam and duration of symptoms. May use Maynard or Flonase as directed. May use Zofran [...] Patient care instructions given in writting by [employer] document [employer] Other 12-06-2021 Evaluation note* Encounter Date Diagnosis [...] Patient care instructions given in writting by [employer] [facility] document. [employer] Other Evaluation + Plan note No data available for this section [facility] [place] History general Narrative - Reported* Type Description Date Medical History Diabetes Medical History HTN (hypertension) Medical History Anxiety Medical History Uterine cancer Surgical History hysterectomy Surgical History C section Surgical History tonsillectomy Surgical History appendectomy Surgical History cholecystectomy Surgical History colonoscopy Surgical History biopsy Hospitalization History pneumonia Hospitalization History see above [employer] Other Hospital Discharge instructions No data available for this section [facility] [place] Progress note No data available for this section [facility] Summary Purpose Family History No Family History [...] and content) DATE CREATED AUTHOR 10/01/2022 [facility] DATE CREATED AUTHOR AUTHOR'S ORGANIZ ATION 10/06/2024 [facility] DATE CREATED AUTHOR AUTHOR'S ORGANIZ ATION 10/23/2024 [facility] Patient Care team informatio n (unrecognized section and content) Personnel Name: Maryjane Valencia MD Address: Address: [address] [place] [address] FOR RECORDS PERTAINING TO PATIENTS WHO ARE [...] BE BASED ON THE PRIMARY CLINICAL RECORDS. [facility]. provides no warranty or guarantee of the accuracy or completeness of information in this document.
[2024-11-02 09:07] LABS: Alanine Aminotransferase 27 U/L (14-59); Albumin Globulin Ratio 0.6; Albumin Level 2.8 g/dL (3.4-5.0); Alkaline Phosphatase 115 U/L (46-116); Anion Gap 17.1; Aspartate Amino Transferase 26 U/L (15-37); BUN Creatinine Ratio 17.8; Bilirubin Total 1.3 mg/dL (0.2-1.0); Calcium 9.1 mg/dL (8.5-10.1); Chloride 101 mmol/L (98-107); Estimated GFR (African America >60 (>=60 mL/min/1.73m^2); Estimated GFR (Non-African Ame >60 (>=60 mL/min/1.73m^2); Globulin 4.4 g/dL; Glucose 361 mg/dL (74-106); Magnesium 1.7 mg/dL (1.8-2.4); Potassium 4.1 mmol/L (3.5-5.1); Sodium 140 mmol/L (136-145); Total Protein 7.2 g/dL (6.4-8.2)
[2024-11-02 09:09] LABS: INR 1.03; Prothrombin Time 10.9 sec (9.0-11.6)
--- NOTE | 2024-11-02 09:50 | XR_ITS ---
The [address] [address] Patient Name: CONNIE WISE MRN: [id number] date: 1955 Sex: F Assigned Patient Location: ER Current Patient Location: ER Accession/Order Number: [id number] Exam Date: 11/02/2024 09:45 Report Date: 11/02/2024 10:20 At the request of: EMMA CORTES Procedure: XR hand LT min 3V PROCEDURE: XR hand LT min 3V COMPARISON: None. HISTORY: pain FINDINGS: BONES:No acute fracture or dislocation. Moderate degenerative changes with joint space narrowing marginal osteophyte formation most significant along the medial carpus SOFT TISSUES:Negative. No visible soft tissue swelling. EFFUSION:None visible. OTHER: Negative. XR/XR hand LT min 3V IMPRESSION: Moderate osteoarthritis Electronically authenticated by: MAISHA ALBRIGHT Date: 11/02/2024 10:20
[2024-11-02] MEDS: KETOROLAC TROMETHAMINE 30 MG/ML VIAL 15 MG IVP (09:52)
[2024-11-02] MEDS: 0.9 % SODIUM CHLORIDE 1,000 ML 1000 ML IV (09:53)
[2024-11-02 10:57] LABS: Glucometer 327 mg/dL (74-106)
[2024-11-02] MEDS: METOPROLOL TARTRATE 25 MG TABLET PO (11:07)
--- NOTE | 2024-11-02 14:06 | ED.WEAKNESS1 ---
HPI - Weakness General Chief complaint: Weakness Stated complaint: PALPITATIONS, ARM PAIN Time Seen by Provider: 11/02/24 08:32 Source: patient Mode of arrival: walk-in Limitations: no limitations History of Present Illness HPI Narrative: Patient have history of A-fib is coming to the ER with a left hand pain that she noticed yesterday that comes whenever she make a fist. Also coming to us with a sense of dizziness and heart racing that she felt this morning The patient have a history of A-fib she has not followed up with her pipe wrapping machine operator since a while She had no recent changes to her medications and she mentioned that she did not have her lancet to measure her blood sugar for the last few days Related Data Home Medications ?Medication ?Instructions ?Recorded ?Confirmed metformin 500 mg tablet 500 mg PO QID 05/23/23 11/02/24 ramipril 10 mg capsule 10 mg PO DAILY 05/23/23 11/02/24 simvastatin 20 mg tablet 20 mg PO DAILY 05/23/23 11/02/24 venlafaxine 75 mg capsule,extended 75 mg PO DAILY 05/23/23 11/02/24 release 24 hr pioglitazone 30 mg tablet (Actos) 30 mg PO DAILY 05/25/23 11/02/24 Previous Rx's ?Medication ?Instructions ?Recorded apixaban 5 mg tablet (Eliquis) 5 mg PO BID #60 tabs 05/25/23 magnesium oxide 400 mg (241.3 mg 400 mg PO BID #60 tabs 05/25/23 magnesium) tablet lancets #200 ea 11/02/24 magnesium oxide 400 mg PO BID #6 caps 11/02/24 metoprolol tartrate 75 mg tablet 75 mg PO BID #20 tabs 11/02/24 Allergies Allergy/AdvReac Type Severity Reaction Status Date / Time Sulfa (Sulfonamide AdvReac Mild Hives Verified 11/02/24 08:28 Antibiotics) Review of Systems ROS Status of ROS 10 or more systems reviewed and unremarkable except as noted in history and below [facility] Medical History (Updated 11/02/24 @ 10:55 by Sadie Gleason MD) Cervical cancer ?C53.9 - Malignant neoplasm of cervix uteri, unspecified (ICD-10) Osteoarthritis ?M19.90 - Unspecified osteoarthritis, unspecified site (ICD-10) Anxiety ?F41.9 - Anxiety disorder, unspecified (ICD-10) Sleep apnea ?G47.30 - Sleep apnea, unspecified (ICD-10) Kidney stones ?N20.0 - Calculus of kidney (ICD-10) Cataract ?H26.9 - Unspecified cataract (ICD-10) Palpitations ?R00.2 - Palpitations (ICD-10) Anemia ?D64.9 - Anemia, unspecified (ICD-10) Rotator cuff arthropathy of left shoulder ?M12.812 - Other specific arthropathies, not elsewhere classified, left shoulder (ICD-10) Atrial fibrillation with rapid ventricular response ?I48.91 - Unspecified atrial fibrillation (ICD-10) Surgical History H/O section ?Z98.891 - History of uterine scar from previous surgery (ICD-10) History of tonsillectomy ?Z90.89 - Acquired absence of other organs (ICD-10) History of cholecystectomy ?Z90.49 - Acquired absence of other specified parts of digestive tract (ICD-10) History of appendectomy ?Z90.49 - Acquired absence of other specified parts of digestive tract (ICD-10) H/O: hysterectomy ?Z90.710 - Acquired absence of both cervix and uterus (ICD-10) Family History (Updated 10/30/24 @ 14:38 by Mary Beth Castro) Grandmother Family history of cancer Father Family history of diabetes mellitus Grandfather Family history of cancer Brother Family history of hypertension Social History Within the past year, how often did you have a drink containing alcohol: monthly or less Within the past year, how often did you have six or more drinks on one occasion: never Smoking status: Never smoker Non-prescribed substance use: denies use 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 Highest level of school completed/degree received: Bachelor's degree Do you want help with school or training: No Are you now , , , , never or living with a partner: never In a typical week, how many times do you talk on the telephone with family, friends, or neighbors: 3 or more times per week How often do you get together with friends or relatives: once per week How often do you attend tenriism or latter-day services: 4 or more times per year Do you belong to any clubs or organizations such as tenriism groups unions, fraternal or athletic groups, or school groups: yes Total score: 3 Score interpretation: A score of greater than or equal to 2 indicates the lowest level of social isolation. Little interest or pleasure in doing things: not at all Feeling down, depressed, or hopeless: not at all Feel stressed/tense/nervous/anxious/difficulty sleeping: not at all Life stressors: recent of family or friend Due to disability, difficulty making decisions: No Exam Narrative Exam Narrative: Nurses notes and vital signs reviewed and patient is not hypoxic. General: Well-appearing and in no apparent distress. Skin: Warm, dry, no pallor noted. No rash. Head: Normocephalic, atraumatic. Neck: Supple, non-tender. Eye: Pupils are equal, round and EOMI. No scleral icterus. Ears, Nose, Mouth, and Throat: TM are clear, no nasal mucosal hypertrophy. Oral mucosa is moist, no posterior oropharynx erythema, uvula is mid-line Cardiovascular: Irregularly irregular rate and rhythm ,without murmur, gallop or rub. Respiratory: No accessory muscle use or respiratory distress. Lungs are clear to auscultation, no wheezing, rales or rhonchi Chest Wall: no tenderness Back: No midline thoracic or lumbar vertebral tenderness. No CVA tenderness Musculoskeletal: normal ROM, no calf or popliteal tenderness, there is significant arthritic changes to the left hand specially the thumb with the distal and proximal interphalangeal joint are showing chronic changes the patient have limitation of movement due to pain but there is no redness hotness or any vascular injury GI: Abdomen is soft, non-distended. Normal bowel sounds. No masses appreciated. No tenderness to palpation. No rebound, guarding, or rigidity noted. Neurological: A&O x4. No cranial nerve dysfunction observed. No truncal ataxia. Moves all extremities. Sensation intact. Psychiatric: Cooperative and interactive. Normal mood and affect. Constitutional Vital Signs, click to edit/add: Last Vital Signs Temp 98.3 F 11/02/24 08:25 Pulse 109 H 11/02/24 10:50 Resp 13 11/02/24 10:50 BP 136/107 H 11/02/24 10:00 Pulse Ox 98 11/02/24 10:50 O2 Del Method Room Air 11/02/24 08:25 Course Vital Signs Vital signs: Vital Signs Temperature 98.3 F 11/02/24 08:25 Pulse Rate 55 L 11/02/24 08:25 Respiratory Rate 18 11/02/24 08:25 Blood Pressure 116/76 11/02/24 08:25 Pulse Oximetry 100 11/02/24 08:25 Oxygen Delivery Method Room Air 11/02/24 08:25 Temperature 98.3 F 11/02/24 08:25 Pulse Rate 109 H 11/02/24 10:50 Respiratory Rate 13 11/02/24 10:50 Blood Pressure 136/107 H 11/02/24 10:00 Pulse Oximetry 98 11/02/24 10:50 Oxygen Delivery Method Room Air 11/02/24 08:25 MDM - Weakness MDM Narrative Medical decision making narrative: The patient mentioned also having a blood transfusion almost a month ago after she had some upper GI bleed although right now hemoglobin is normal Chemistry showing hypomagnesemia that is chronic problem for the patient and she was provided with extra dose of magnesium for the Patient A-fib on the EKG is at heart rate of [address] elevation or depression The patient troponin was negative and her left hand examination close with possible arthritis x-ray of the left hand shows osteoarthritis as well The patient was provided Toradol after which her pain is better in her left hand she also had a chemistry showing hyperglycemia There was no anion gap and the patient was provided with fluid here and hydration in addition to she was instructed about monitoring her blood sugar at home she was provided with lancets for the machine The patient A-fib medication altered with metoprolol increased to 75 mg twice daily instead of 50 mg The patient instructed about the importance of follow-up with a pipe wrapping machine operator within few days and also come back in case of increased blood sugar level on evaluation at home The patient is to follow up with primary care physician in next 2-3 days or to return to the emergency department should any of the signs or symptoms worsen or new symptoms develop. The patient agrees with the following Diagnosis and Treatment plan and the patient will be discharged home. Lab Data Labs: Lab Results 11/02/24 11/02/24 Range/Units 08:35 10:54 WBC 7.0 (4.0-11.0) 10^3/uL RBC 4.67 (4.20-5.40) 10^6/uL Hgb 11.0 L (12.0-16.0) g/dL Hct 36.6 (36.0-48.0) % MCV 78.4 L (81.0-99.0) fL MCH 23.6 L (26.7-34.0) pg MCHC 30.1 (29.9-35.2) g/dL RDW 20.1 H (11.0-15.0) % Plt Count 178 (150-450) 10^3/uL MPV 10.9 (9.5-13.5) fL Neut % (Auto) 66.1 (43.0-75.0) % Lymph % (Auto) 22.6 (20.5-60.0) % Jennings % (Auto) 8.5 (1.7-12.0) % Eos % (Auto) 1.9 (0.9-7.0) % Baso % (Auto) 0.6 (0.2-2.0) % Neut # (Auto) 4.6 (1.4-6.5) 10^3/uL Lymph # (Auto) 1.6 (1.2-3.8) 10^3/uL Jennings # (Auto) 0.6 (0.3-0.8) 10^3/uL Eos # (Auto) 0.1 (0.0-0.7) 10^3/uL Baso # (Auto) 0.0 (0.0-0.1) 10^3/uL Abs Immat Gran (auto) 0.02 (0.00-0.03) 10^3/uL Imm/Tot Granulo (auto) 0.3 (0.0-0.5) % PT 10.9 (9.0-11.6) sec INR 1.03 Sodium 140 (136-145) mmol/L Potassium 4.1 (3.5-5.1) mmol/L Chloride 101 (98-107) mmol/L Carbon Dioxide 26.0 (21.0-32.0) mmol/L Anion Gap 17.1 BUN 16.0 (7.0-18.0) mg/dL Creatinine 0.90 (0.55-1.02) mg/dL Est GFR ( Amer) >60 (>=60 mL/min/1.73m^2) Est GFR (Non-Af Amer) >60 (>=60 mL/min/1.73m^2) BUN/Creatinine Ratio 17.8 Glucose 361 H (74-106) mg/dL Calcium 9.1 (8.5-10.1) mg/dL Magnesium 1.7 L (1.8-2.4) mg/dL Total Bilirubin 1.3 H (0.2-1.0) mg/dL AST 26 (15-37) U/L ALT 27 (14-59) U/L Alkaline Phosphatase 115 (46-116) U/L Troponin I High Sens 38.0 (4.0-51.3) pg/mL Total Protein 7.2 (6.4-8.2) g/dL Albumin 2.8 L (3.4-5.0) g/dL Globulin 4.4 g/dL Albumin/Globulin Ratio 0.6 POC Glucose 327 H (74-106) mg/dL Discharge Plan Discharge Chief Complaint: Weakness Clinical Impression: A-fib, Hypomagnesemia, Acute hyperglycemia, Arthritis of hand Patient Disposition: Home, Self-Care Time of Disposition Decision: 10:55 Condition: Good Prescriptions / Home Meds: New metoprolol tartrate 75 mg tablet 75 mg PO BID Qty: 20 0RF magnesium oxide 400 mg magnesium capsule 400 mg PO BID Qty: 6 0RF (DME) lancets Misc See Rx Instructions .Route Qty: 200 0RF Rx Instructions: As directed Held magnesium oxide 400 mg (241.3 mg magnesium) Tablet 400 mg PO BID Qty: 60 11RF Hold Instructions: Resume on 11/06/24. hold for 3 days and take the mag prescribed then resume Discontinued metoprolol tartrate 25 mg Tablet 50 mg PO BID Qty: 60 11RF diclofenac sodium 75 mg tablet,delayed release (DR/EC) 75 mg PO BID PRN (Reason: pain) No Action metformin 500 mg tablet 500 mg PO QID ramipril 10 mg capsule 10 mg PO DAILY simvastatin 20 mg tablet 20 mg PO DAILY venlafaxine 75 mg capsule,extended release 24hr 75 mg PO DAILY Eliquis 5 mg Tablet 5 mg PO BID Qty: 60 11RF pioglitazone [Actos] 30 mg tablet 30 mg PO DAILY Print Language: Grenadian Instructions: A-fib (Atrial Fibrillation) (ED), Hypomagnesemia (ED) Referrals: Harry Valencia MD [Primary Care Provider] - 1 week Discharge Date/Time: 11/02/24 11:12
== END 2024-11-02 11:12 | disposition home or self-care (01) ==
PROVIDERS: Emergency Provider Emergency Medicine; PCP Family Medicine
DX: M19.042 Primary osteoarthritis, left hand (principal); I48.91 Unspecified atrial fibrillation; R42 Dizziness and giddiness; Z90.49 Acquired absence of other specified parts of digestive tract; Z90.710 Acquired absence of both cervix and uterus; E83.42 Hypomagnesemia; R73.9 Hyperglycemia, unspecified
CPT/HCPCS: 36415; 73130; 80053; 83735; 84484; 85025; 85610; 93005; 96361; 96374; 99285; J1885

== ENCOUNTER 2024-11-07 07:16 | Day surgery (SDC) | payer OTHER, SELFPAY ==
--- NOTE | 2024-11-07 | OP_ITS ---
OPERATION DATE: 11/07/2024 PREOPERATIVE DIAGNOSIS: Anemia, bowel changes, melena. POSTOPERATIVE DIAGNOSIS: Small sliding type hiatal hernia, as well as 4 mm ascending colon polyp, moderate sigmoid diverticulosis. PROCEDURE: EGD and colonoscopy to cecum with cold snare polypectomy x1. SURGEON: Manoj Damon M.D. ANESTHESIA: Monitored anesthesia care. ESTIMATED BLOOD LOSS: Less than 1 mL. INDICATIONS AND CONSENT: Patient is a 68-year-old female, with multiple medical problems, on Eliquis, has had intermittent melena, bowel changes, as well as anemia. Indications, risks, benefits, alternatives of proceeding with EGD and colonoscopy were explained extensively to the patient, including the risks of bleeding, aspiration, esophageal/gastric/duodenal or colonic perforation or anesthetic complications. All of her questions were answered. Informed consent was obtained. PROCEDURE: Patient brought to the operating room, placed in the left lateral decubitus position. Monitored anesthesia care was provided. Bite block was placed in the patient?s mouth. Scope was inserted into the oropharynx. Under direct visualization, it was advanced into the esophagus, past the cricopharyngeus, down to the stomach. The stomach was insufflated with air. The pylorus was traversed down to the descending portion of the duodenum. There was no evidence of duodenitis or ulceration. There was no significant gastritis. The scope was retroflexed in the stomach, and there was noted to be a small, sliding type hiatal hernia. No other gastric mucosal abnormality. The GE junction was noted at approximately 38 cm. There was no distal esophagitis or Jain?s changes. Remainder of the esophagus was unremarkable. The scope was then withdrawn. Patient was then positioned for colonoscopy. Rectal exam was performed, which showed no masses or blood. The scope was then inserted into the anal canal. Under direct visualization, it was advanced. With the aid of abdominal compression, it was advanced to the cecum where cecal markings were clearly identified. There was noted to be no mass lesions or inflammatory changes. There was a good prep with some liquid stool throughout the colon that was partially irrigated clear. Cecal markings were clearly identified. Upon withdrawal of the scope, mucosal surfaces were carefully examined. Within the ascending colon, there was noted to be a 4 mm sessile polyp that was removed with cold snare with good hemostasis. No other mass lesions or polyps were noted. There was moderates sigmoid diverticulosis without inflammatory changes or scarring. The scope was retroflexed in the anal canal. There were noted to be some prominent rectal veins, no significant hemorrhoidal disease. The scope was then withdrawn. The patient tolerated procedure well, was sent to recovery room in good condition. f/u colonoscopy likely in 5 years, but will depend on the pathology report. CC: Ofe Garsia
[2024-11-07 07:27] VITALS: BP 108/68; PULSE 98; TEMP 36.1; O2SAT 97; BMI 34.7
[2024-11-07] MEDS: 0.9 % SODIUM CHLORIDE 500 ML 50 ML IV (07:51)
[2024-11-07 08:29] LABS: Glucometer 310 mg/dL (74-106)
[2024-11-07 09:02] VITALS: BP 97/50; PULSE 79; TEMP 37.1; O2SAT 96
[2024-11-07 09:17] VITALS: BP 110/66; PULSE 111; O2SAT 94
[2024-11-07 09:32] VITALS: BP 125/64; PULSE 78; TEMP 36.9; O2SAT 96
== END 2024-11-07 09:32 | disposition home or self-care (01) ==
PROVIDERS: PCP Family Medicine; Visit Provider Surgery
PROC: (CPT 45385; principal; 2024-11-07 08:20)
DX: D12.2 Benign neoplasm of ascending colon (principal); D64.9 Anemia, unspecified; K57.31 Diverticulosis of large intestine without perforation or abscess with bleeding; K44.9 Diaphragmatic hernia without obstruction or gangrene; E11.3593 Type 2 diabetes mellitus with proliferative diabetic retinopathy without macular edema, bilateral; I48.91 Unspecified atrial fibrillation; I12.9 Hypertensive chronic kidney disease with stage 1 through stage 4 chronic kidney disease, or unspecified chronic kidney disease; N18.9 Chronic kidney disease, unspecified; E78.00 Pure hypercholesterolemia, unspecified; E66.813 Obesity, class 3; Z79.1 Long term (current) use of non-steroidal anti-inflammatories (NSAID); Z79.01 Long term (current) use of anticoagulants; Z79.84 Long term (current) use of oral hypoglycemic drugs; Z79.899 Other long term (current) drug therapy; Z88.2 Allergy status to sulfonamides; Z83.3 Family history of diabetes mellitus; Z85.42 Personal history of malignant neoplasm of other parts of uterus; Z68.34 Body mass index [BMI] 34.0-34.9, adult
CPT/HCPCS: 45385; 43235; 36415; 82948; J2704

== ENCOUNTER 2024-11-14 18:19 | Inpatient (IN) | payer OTHER, SELFPAY ==
[2024-11-14] VITALS (38 sets, daily range): BP systolic 72–96; BP diastolic 42–60; PULSE 91–134; TEMP 36.6; O2SAT 85–98; BMI 33.5
--- OUTSIDE RECORDS SUMMARY | 2024-11-14 18:26 | XMS_ITS | CCD ---
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 T7, TSH #### [facility] [address] [address] [address] Becky Josue HDL NORMAL > or = 60 mg/dl - LO W CARDIOVASCULAR RISK <40 mg/dl - HIGH CARDIOVASCULAR RISK Normal [facility] Comment on above: Performed By: #### L IPID, CMP, T7, TSH #### [facility] [address] [address] [address] Becky Josue LDL CALC NORMAL SEE BELOW Normal [facility] [place] [facility] Comment on above: Result Comment: <100 mg/dl OPTIMAL 100 - 129 mg/dl NEAR OR ABOVE OPTIMAL 130 - 159 mg/dl BORDERLINE HIGH 160 - 189 mg/dl HIGH >190 mg/dl VERY HIGH Performed By: #### L IPID, CMP, T7, TSH #### [facility] [address] [address] [address] Becky Josue Triglyceride [Mass/Vol] 225 mg/dL Critically high <=150 [facility] Comment on above: Performed By: #### L IPID, CMP, T7, TSH #### [facility] [address] [address] [address] Becky Josue VLDL CALC 45.0 mg/dL Normal [facility] Comment on above: Performed By: #### L IPID, CMP, T7, TSH #### [facility] [address] [address] [address] Becky Josue PROF 14(COMP METB)on 11-13-2 021 Albumin [Mass/Vol] 3.1 g/dL Critically low 3.5-5.0 Th e [facility] Comment on above: Performed By: #### L IPID, CMP, T7, TSH #### [facility] [address] [address] [address] Becky Josue Albumin/Globulin [Mass ratio] 0.8 {ratio} Normal [facility] Comment on above: Performed By: #### L IPID, CMP, T7, TSH #### [facility] [address] [address] [address] Becky Josue ALP [Catalytic activity/Vol] 100 U/L Normal 38-126 [facility] Comment on above: Performed By: #### L IPID, CMP, T7, TSH #### [facility] [address] [place] [address] Dr. Becky Josue ALT [Catalytic activity/Vol] 35 U/L Normal 9-52 [facility] Comment on above: Performed By: #### L IPID, CMP, T7, TSH #### [facility] [address] [place] [address] Dr. Becky Josue Anion gap [Moles/Vol] 13.0 mmol/L Normal [facility] Comment on above: Performed By: #### L IPID, CMP, T7, TSH #### [facility] [address] [place] [address] Dr. Becky Josue AST [Catalytic activity/Vol] 27 U/L Normal 14-36 [facility] Comment on above: Performed By: #### L IPID, CMP, T7, TSH #### [facility] [address] [place] [address] Dr. Becky Josue Bilirubin [Mass/Vol] 0.8 mg/dL Normal 0.2-1.3 [facility] Comment on above: Performed By: #### L IPID, CMP, T7, TSH #### [facility] [address] [address] [address] Becky Josue Calcium [Mass/Vol] 8.9 mg/dL Normal 8.4-10.2 [facility] Comment on above: Performed By: #### L IPID, CMP, T7, TSH #### [facility] [address] [place] [address] Dr. Becky Josue Chloride [Moles/Vol] 103 mmol/L Normal 98-107 [facility] Comment on above: Performed By: #### L IPID, CMP, T7, TSH #### [facility] [address] [place] [address] Dr. Becky Josue CO2 [Moles/Vol] 30.3 mmol/L Critically high 22.0-30.0 [facility] Comment on above: Performed By: #### L IPID, CMP, T7, TSH #### [facility] [address] [place] [address] Dr. Becky Josue Creatinine [Mass/Vol] 0.72 mg/dL Normal 0.52-1.04 [facility] Comment on above: Performed By: #### L IPID, CMP, T7, TSH #### [facility] [address] [place] [address] Dr. Becky Josue EGFR-AF UKRAINIAN >60 Normal >=60 [facility] Comment on above: Performed By: #### L IPID, CMP, T7, TSH #### [facility] [address] [place] [address] Dr. Becky Josue EGFR-NON AF UKRAINIAN >60 Normal >=60 [facility] Comment on above: Performed By: #### L IPID, CMP, T7, TSH #### [facility] [address] [place] [address] Dr. Becky Josue Globulin (S) [Mass/Vol] 3.9 g/dL Normal [facility] Comment on above: Performed By: #### L IPID, CMP, T7, TSH #### [facility] [address] [place] [address] Dr. Becky Josue Glucose [Mass/Vol] 261 mg/dL Critically high 74-106 [facility] Comment on above: Performed By: #### L IPID, CMP, T7, TSH #### [facility] [address] [place] [address] Dr. Becky Josue Potassium [Moles/Vol] 4.3 mmol/L Normal 3.4-5.0 [facility] Comment on above: Performed By: #### L IPID, CMP, T7, TSH #### [facility] [address] [address] [address] Becky Josue Protein [Mass/Vol] 7.0 g/dL Normal 6.1-8.2 [facility] Comment on above: Performed By: #### L IPID, CMP, T7, TSH #### [facility] [address] [address] [address] Becky Josue Sodium [Moles/Vol] 142 mmol/L Normal 137-145 [facility] Comment on above: Performed By: #### L IPID, CMP, T7, TSH #### [facility] [address] [address] [address] Becky Josue Urea nitrogen [Mass/Vol] 22.0 mg/dL Critically high 7.0-17.0 [facility] Comment on above: Performed By: #### L IPID, CMP, T7, TSH #### [facility] [address] [address] [address] Becky Josue Urea nitrogen/Creatinine [Mass ratio] 30.6 mg/mg Normal [facility] Comment on above: Performed By: #### L IPID, CMP, T7, TSH #### [facility] [address] [address] [address] Becky Josue TSHon 10-03-2021 TSH 2.809 uIU/mL Normal 0.470-4.680 [facility] Comment on above: Performed By: #### L IPID, CMP, T7, TSH ####[facility] [id number] [address]Dr. Becky Josue TSH RANGE SEE BELOW Normal [facility] Comment on above: Result Comment: <0.3 4 UIU/ml HYPERTHYROID 0.34-5.60 UIU/ml EUTHYROID >5.60 UIU/ml HYPOTHYROID Performed By: #### L IPID, CMP, T7, TSH ####[facility] [address] [place], [place] [address]IgBrayan Josue Vital Signs Date Time Vital Sign Value Performing Clinician Facility 10-03-2024 14:06-0500 Blood Pressure Location Manoj [facility] 10-03-2024 14:06-0500 Diastolic blood pressure 68 mm[Hg] Manoj [facility] 10-03-2024 14:06-0500 Heart rate 72 /min Manoj [facility] 10-03-2024 14:06-0500 Respiratory rate 16 /min Manoj [facility] 10-03-2024 14:06-0500 Systolic blood pressure 132 mm[Hg] Manoj [facility] 02-16-2022 12:30-0400 Body height 167.64 cm Ashley Cox Other [facility] Other 02-16-2022 12:30-0400 Body mass index (BMI) [Ratio] 34.21 kg/m2 Ashley Cox Other [facility] Other 02-16-2022 12:30-0400 Body temperature 97.8 [degF] Ashley Cox Other [facility] Other 02-16-2022 12:30-0400 Body weight 96.16 kg Ashley Cox Other [facility] Other 02-16-2022 12:30-0400 Respiratory rate 18 /min Ashley Cox Other [facility] Other 02-16-2022 12:30-0400 SaO2% (BldA) [Mass fraction] 97 % Ashley Cox Other [facility] Other Encounters Encounter Date Encounter Type Care Provider Facility Start: 11-09-2024 End: 11-09-2024 ambulatory [facility] Start: 11-07-2024 End: 11-07-2024 ambulatory Manoj Damon Facility:[facility] Start: 11-07-2024 End: 11-07-2024 ambulatory Manoj DAMON Facility::[id number] Start: 11-02-2024 ambulatory [facility] Start: 10-22-2024 ambulatory [facility] Start: 10-08-2024 ambulatory [facility] Start: 10-03-2024 End: 10-03-2024 ambulatory Maryjane Valencia Facility:[facility] Start: 10-03-2024 End: 10-03-2024 Patient encounter procedure Manoj DAMON [facility] [place] Start: 09-13-2024 ambulatory [facility] Start: 09-03-2024 ambulatory [facility] Start: 08-06-2024 End: 08-06-2024 ambulatory [facility] Start: 07-03-2024 End: 07-03-2024 ambulatory [facility] Start: 04-19-2024 End: 04-19-2024 ambulatory [facility] Start: 09-24-2022 End: 09-25-[address] MARYJANE VALENCIA Facility: Start: 02-16-2022 End: 02-16-2022 ambulatory Ashley Cox Other [facility] Other Start: 02-16-2022 Office outpatient vi sit 15 minutes Ashley Cox [facility] Start: 10-26-2021 End: 10-26-2021 ambulatory Soco Hernandez Other [facility] Other Start: 10-26-2021 Office outpatient vi sit 5 minutes Soco Hernandez [facility] Start: 10-12-2021 End: 10-13-[address] MARYJANE VALENCIA Facility:[facility] Start: 10-08-2021 Encounter for genera l adult medical examination without abnormal findings DR MARYJANE VALENCIA [facility] Start: 10-03-2021 End: 10-04-2021 [...] Manoj NILL Total abdominal hysterectomy Manoj NILL Plan of Treatment Date Care Activity Detail Author Start: 11-27-2024 ambulatory Ambulatory Facility:[facility] Immunizations Immunization Date Immunization Notes Care Provider Fa cility 09-29-2021 SARS-CoV-2 (COVID-19 ) mRNA BNT-162b2 vax Manoj NILL [facility] 01-25-2021 SARS-CoV-2 (COVID-19 ) Ad26 vaccine, recombinant Manoj NILL [facility] Payers Date Payer Category Payer Self-pay 1958 Unknown [id number] 2. [id number] 1955 Unknown [id number] 2.16.84 [id number] 1955 Unknown [id number] 2.16.84 [id number] 1956 Unknown [id number] 2.16.84 [id number] 1956 Unknown [id number] 2.16.8 [id number] 1956 Unknown [id number] 2.16.8 [id number] 1956 Unknown [id number] 2.16.8 [id number] Medicare [id number] 2.1 [id number] Unknown [id number] 2.16.8 [id number] Social History Date Type Detail Facility Sex Assigned At [facility] Start: 10-03-2024 Tobacco smoking status Never s moked tobacco (finding) [facility] Tobacco smoking status Never [facility] Functional Status Date Assessment Result Facility 10-03-2024 Functional Status N/A [facility] Clinical Notes 10-26-2021 to 11-09-2024 Note Date & Type Note Facility 11-09-2024 Note [place] [facility]iology - [facility] Subjective Shirleyjc Brian is a 69 y.o. 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 She reports recurrent palpitations. She denies any chest pain or shortness of breath at rest or with exertion. She denies any dizziness. Denies orthopnea or paroxysmal nocturnal dyspnea or legs edema. She was diagnosed recently with sleep apnea and she is going to get the CPAP machine soon. 04/19/2024 Patient is a 68-year-old female with history of atrial fibrillation with RVR when she was admitted to the [facility] with diarrhea due to C. difficile [...] mg tablet, Take 5 mg by mouth two times daily., Disp: , Rfl: furosemide (Lasix) 20 mg tablet, Take 1 tablet (20 mg) by mouth in the morning., Disp: 90 tablet, Rfl: 3 magnesium oxide (Mag-Ox) 400 mg (241.3 mg magnesium) tablet, Take 1 tablet (400 mg) by mouth once daily as directed., Disp: 90 tablet, Rfl: 3 metFORMIN (Glucophage) 500 mg tablet, Take 1 tablet by mouth twice a day., Disp: , Rfl: metoprolol tartrate (Lopressor) 50 mg tablet, Take 50 mg by mouth in the morning and at bedtime., Disp: , Rfl: pantoprazole (ProtoNix) 40 mg EC tablet, Take 40 mg by mouth if needed each day., Disp: , Rfl: pioglitazone (Actos) 30 mg tablet, Take 30 mg by mouth in the morning., Disp: , Rfl: ramipril (Altace) 10 mg capsule, Take 10 mg by mouth in the morning., Disp: , Rfl: simvastatin (Zocor) 20 mg tablet, Take 20 mg by mouth at bedtime., Disp: , Rfl: venlafaxine XR (Effexor-XR) 75 mg 24 hr capsule, Take 75 mg by mouth in the morning., Disp: , Rfl: metoprolol tartrate (Lopressor) 100 mg tablet, Take 1 tablet (100 mg) by mouth two times daily., Disp: 180 tablet, Rfl: 3 Objective Visit Vitals BP 144/60 (BP Location: Left arm, Patient Position: Sitting) Pulse 83 Ht 1.676 m (more content not included)... [facility] 10-03-2024 Note General Surgery Offi ce/Clinic Note [...] 5 mg oral (more content not included)... [facility] Comment on above: Result Comment: Elec tronically Signed By: JOSE ALBERTO MARRERO, Manoj Wilson\Date and Time Signed: 10/03/24 14:54 EST 08-06-2024 Note LOOP IMPLANT PROCEDU RE NOTE DATE OF PROCEDURE: 08/06/24 PERFORMING PHYSICIAN: Dr. Rogers Catalan ASSEMBLY MACHINE OPERATOR: REJI INDICATIONS FOR PROCEDURE: 1. SVT/AF surveillance [...] the sternum on the left using the Wattblock tool. The loop recorder was then injected [...] the incision. Rogers Catalan MD Cardiac Electrophysiology. [facility] 07-03-2024 Note [place] Electrophysiology Consult Note [facility] Reason for visit: Afib 07/03/24 Pt is doing well and occasionally feels palpitations. HPI: Shirley Brian is a 68 y.o. year old with past medical history of Hypertension, diabetes, dyslipidemia, palpitations. She was recently seen at the [facility] for A-fib RVR as she was [...] show any evidence of reversible ischemia. below [id number] at least 4 for age, gender, hypertension, [...] on file Intimate Partner Violence: Unknown (01/12/2024) [place] Safety & Environment Fear of Current or [...] on external ear (more content not included)... [facility] 04-19-2024 Note [place] [facility]iology - [facility] Subjective Shirley Brian is [...] RVR when she was admitted to the [facility] with diarrhea due to C. difficile [...] V1 to V3, (more content not included)... [facility] 04-19-2024 Note Patient here for 6 m [...] All other systems reviewed and are negative. [facility] 02-16-2022 Evaluation note Encounter Date Diagnosis Assessment [...] exam and duration of symptoms. May use [place] or Flonase as directed. May use Zofran [...] Patient care instructions given in writting by [facility] document [facility] Other 12-06-2021 Evaluation note* Encounter Date Diagnosis [...] Patient care instructions given in writting by [facility] document. [facility] Other Evaluation + Plan note No data available for this section [facility] History general Narrative - Reported* Type Description Date Medical History Diabetes Medical History HTN (hypertension) Medical History Anxiety Medical History Uterine cancer Surgical History hysterectomy Surgical History C section Surgical History tonsillectomy Surgical History appendectomy Surgical History cholecystectomy Surgical History colonoscopy Surgical History biopsy Hospitalization History pneumonia Hospitalization History see above [facility] Other Hospital Discharge instructions No data available for this section [facility] [place] Progress note No data available for this section [facility] Surgery Diplopia Summary Purpose Family History No Family History [...] and content) DATE CREATED AUTHOR 10/01/2022 [facility] DATE CREATED AUTHOR AUTHOR'S ORGANIZ ATION 11/10/2024 [facility] DATE CREATED AUTHOR AUTHOR'S ORGANIZ ATION 11/12/2024 [facility] DATE CREATED AUTHOR AUTHOR'S ORGANIZ ATION 11/14/2024 [facility] Patient Care team informatio n (unrecognized section and content) Personnel Name: Maryjane Valencia MD Address: Address: [address] [place] [address] FOR RECORDS PERTAINING TO PATIENTS WHO ARE [...] BE BASED ON THE PRIMARY CLINICAL RECORDS. [facility] [employer] [facility]. provides no warranty or guarantee of the accuracy or completeness of information in this document.
--- NOTE | 2024-11-14 18:39 | XR_ITS ---
The [address] [address] Patient Name: CONNIE WISE MRN: [id number] date: 1955 Sex: F Assigned Patient Location: ER Current Patient Location: ED.MAIN Accession/Order Number: [id number] Exam Date: 11/14/2024 18:52 Report Date: 11/14/2024 19:36 At the request of: EMMA CORTES Procedure: XR chest 1V SINGLE VIEW CHEST: 11/14/2024 6:52 PM EST CLINICAL HISTORY:weakness COMPARISONS: Portable chest 05/23/2023 TECHNIQUE: Single frontal view of the chest, utilizing portable technique. Portable radiography should be considered a technically compromised study. Strongly consider dedicated PA and lateral chest radiographs, as clinically indicated. FINDINGS: LINES AND TUBES: None appreciated. CARDIAC SILHOUETTE: Cardiac silhouette upper limits normal with some mild central vascular prominence. pharmaceutical worker overlies left lower hemithorax. MEDIASTINAL AND HILAR CONTOUR: Within normal limits. PULMONARY PARENCHYMA AND PLEURA: No consolidation, edema, effusion, or pneumothorax. OSSEOUS STRUCTURES:Nothing significant. OTHER COMMENTS:None. XR/XR chest 1V IMPRESSION: Mild central vascular prominence. Borderline heart size. External delinquency prevention social worker overlies left lower chest wall. This report was generated with voice recognition software. Effort has been made to ensure accuracy of this report, however, occasional wording errors may persist. Please contact our office with any questions. Electronically authenticated by: HARLEY BERNAL Date: 11/14/2024 19:36
--- NOTE | 2024-11-14 18:39 | ECG_ITS ---
The [facility] Test Date: 2024-11-14 Pat Name: CONNIE WISE Department: Room: - Gender: Female Lead Housekeeper: : 1955 Requested By: VIRGINIA LORA Order Number: [id number] Reading MD: NICOLE BURNS Measurements Intervals [place] Rate: 127 P: -[id number] PA: -[id number] QRS: 57 QRSD: 82 T: 90 QT: 302 QTc: 377 Interpretive Statements 47931 Atrial fibrillation with rapid ventricular response [id number] Nonspecific Twave abnormality, probably digitalis effect 9140 abnormal rhythm ECG Compared to ECG 11/02/2024 08:30:11 Atrial flutter no longer present Electronically Signed On 11-18-2024 7:33:59 EST by NICOLE BURNS
[2024-11-14 18:52] LABS: Hematocrit 28.4 % (36.0-48.0); Hemoglobin 8.5 g/dL (12.0-16.0); Mean Corpuscular HGB Conc 29.9 g/dL (29.9-35.2); Mean Corpuscular Hemoglobin 24.3 pg (26.7-34.0); Mean Corpuscular Volume 81.1 fL (81.0-99.0); Platelet Count 187 10^3/uL (150-450); Red Cell Distribution Width 20.5 % (11.0-15.0); White Blood Count 10.6 10^3/uL (4.0-11.0)
[2024-11-14 19:04] LABS: INR 1.23; Prothrombin Time 12.8 sec (9.0-11.6)
[2024-11-14 19:09] LABS: Alanine Aminotransferase 23 U/L (14-59); Albumin Globulin Ratio 0.4; Albumin Level 1.6 g/dL (3.4-5.0); Alkaline Phosphatase 208 U/L (46-116); Anion Gap 14.1; Aspartate Amino Transferase 46 U/L (15-37); BUN Creatinine Ratio 28.4; Bilirubin Total 1.1 mg/dL (0.2-1.0); Calcium 8.1 mg/dL (8.5-10.1); Chloride 97 mmol/L (98-107); Estimated GFR (African America 32 (>=60 mL/min/1.73m^2); Estimated GFR (Non-African Ame 26 (>=60 mL/min/1.73m^2); Globulin 4.3 g/dL; Glucose 485 mg/dL (74-106); Potassium 4.1 mmol/L (3.5-5.1); Sodium 129 mmol/L (136-145); Total Protein 5.9 g/dL (6.4-8.2); Troponin I High Sensitivity 5.7 pg/mL (4.0-51.3)
[2024-11-14 19:11] LABS: Lactate/Lactic Acid 6.2 mmol/L (0.4-2.0)
[2024-11-14 19:14] LABS: Segmented Neut Absolute Manual 8.05 10^3/uL (1.4-6.5)
[2024-11-14 19:15] LABS: Band Neutrophils Absolute 1.6 10^3/uL (0.0-0.3); Lymphocytes Absolute Manual 0.31 10^3/uL (1.20-3.80); Monocytes Absolute Manual 0.53 10^3/uL (0.30-0.80); Nucleated Red Blood Cells 1
[2024-11-14 19:16] LABS: Anisocytosis 1+; Hypochromasia 1+; Microcytosis 1+
--- NOTE | 2024-11-14 19:41 | ED.GENADUL1 ---
Documented by User: Sadie Gleason MD 11/15/24 07:33 HPI HPI - General Adult General Chief complaint: Weakness Stated complaint: weakness, neck pain Time Seen by Provider: 11/14/24 18:39 Source: patient Mode of arrival: Wheelchair History of Present Illness HPI narrative: Patient presenting with a generalized weakness and neck pain she mentioned that she had blood pressure issues for the last few days and her primary care doctor has been adjusting her blood pressure medication, she found that her blood pressure was low yesterday and she took her medication for blood pressure and she also took them today She is not having any chest pain nausea vomiting but she had generalized weakness Related Data Home Medications ?Medication ?Instructions ?Recorded ?Confirmed metformin 500 mg tablet 500 mg PO QID 05/23/23 11/07/24 ramipril 10 mg capsule 10 mg PO DAILY 05/23/23 11/15/24 simvastatin 20 mg tablet 20 mg PO DAILY 05/23/23 11/15/24 venlafaxine 75 mg capsule,extended 75 mg PO DAILY 05/23/23 11/15/24 release 24 hr metoprolol tartrate 100 mg tablet 100 mg PO BID 11/15/24 11/15/24 pantoprazole 40 mg tablet,delayed 40 mg PO DAILY 11/15/24 11/15/24 release tizanidine 4 mg tablet 4 mg PO BID PRN muscle spasticity 11/15/24 11/15/24 Previous Rx's ?Medication ?Instructions ?Recorded apixaban 5 mg tablet (Eliquis) 5 mg PO BID #60 tabs 05/25/23 magnesium oxide 400 mg (241.3 mg 400 mg PO BID #60 tabs 05/25/23 magnesium) tablet lancets #200 ea 11/02/24 Allergies Allergy/AdvReac Type Severity Reaction Status Date / Time Sulfa (Sulfonamide AdvReac Mild Hives Verified 11/02/24 08:28 Antibiotics) Opioid HPI Opioid Management Most Recent Opioid Data: Last Pain Scale 8 11/15/24 04:17 11/15/24 Last Pain Assessment 11/15/24 06:02 Last ORT Total Score 1 11/15/24 00:41 11/15/24 Last ORT Risk Category Low Risk 11/15/24 00:41 11/15/24 Review of Systems ROS Status of ROS 10 or more systems reviewed and unremarkable except as noted in history and [facility] History Hypertension ?I10 - Essential (primary) hypertension (ICD-10) Diabetes ?E11.9 - Type 2 diabetes mellitus without complications (ICD-10) Dyslipidemia ?E78.5 - Hyperlipidemia, unspecified (ICD-10) Hypomagnesemia ?E83.42 - Hypomagnesemia (ICD-10) Acute hyperglycemia ?R73.9 - Hyperglycemia, unspecified (ICD-10) Cervical cancer ?C53.9 - Malignant neoplasm of cervix uteri, unspecified (ICD-10) Osteoarthritis ?M19.90 - Unspecified osteoarthritis, unspecified site (ICD-10) Sleep apnea ?G47.30 - Sleep apnea, unspecified (ICD-10) Kidney stones ?N20.0 - Calculus of kidney (ICD-10) Cataract ?H26.9 - Unspecified cataract (ICD-10) Palpitations ?R00.2 - Palpitations (ICD-10) Anemia ?D64.9 - Anemia, unspecified (ICD-10) Rotator cuff arthropathy of left shoulder ?M12.812 - Other specific arthropathies, not elsewhere classified, left shoulder (ICD-10) Atrial fibrillation with rapid ventricular response ?I48.91 - Unspecified atrial fibrillation (ICD-10) Surgical History H/O repair of rotator cuff ?Z98.890 - Other specified postprocedural states (ICD-10) H/O section ?Z98.891 - History of uterine scar from previous surgery (ICD-10) History of tonsillectomy ?Z90.89 - Acquired absence of other organs (ICD-10) History of cholecystectomy ?Z90.49 - Acquired absence of other specified parts of digestive tract (ICD-10) History of appendectomy ?Z90.49 - Acquired absence of other specified parts of digestive tract (ICD-10) H/O: hysterectomy ?Z90.710 - Acquired absence of both cervix and uterus (ICD-10) Family History Grandmother Family history of cancer Father Family history of diabetes mellitus Grandfather Family history of cancer Brother Family history of hypertension Social History Within the past year, how often did you have a drink containing alcohol: monthly or less Within the past year, how often did you have six or more drinks on one occasion: never Smoking status: Never smoker Non-prescribed substance use: denies use 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 Highest level of school completed/degree received: Bachelor's degree Do you want help with school or training: No Are you now , , , , never or living with a partner: never In a typical week, how many times do you talk on the telephone with family, friends, or neighbors: 3 or more times per week How often do you get together with friends or relatives: once per week How often do you attend uatsdin or mandaen services: 4 or more times per year Do you belong to any clubs or organizations such as uatsdin groups unions, fraternal or athletic groups, or school groups: yes Total score: 3 Score interpretation: A score of greater than or equal to 2 indicates the lowest level of social isolation. Little interest or pleasure in doing things: not at all Feeling down, depressed, or hopeless: not at all Feel stressed/tense/nervous/anxious/difficulty sleeping: not at all Life stressors: recent of family or friend Due to disability, difficulty making decisions: No Exam Narrative Exam Narrative: Nurses notes and vital signs reviewed and patient is not hypoxic. General: Patient looks weak and tired Skin: Warm, dry, no pallor noted. No rash. Head: Normocephalic, atraumatic. Neck: Supple, non-tender. Eye: Pupils are equal, round and EOMI. No scleral icterus. Ears, Nose, Mouth, and Throat: TM are clear, no nasal mucosal hypertrophy. Oral mucosa is moist, no posterior oropharynx erythema, uvula is mid-line Cardiovascular: Regular Rate and Rhythm without murmur, gallop or rub. Respiratory: No accessory muscle use or respiratory distress. Lungs are clear to auscultation, no wheezing, rales or rhonchi Chest Wall: no tenderness Back: No midline thoracic or lumbar vertebral tenderness. No CVA tenderness Musculoskeletal: normal ROM, no calf or popliteal tenderness, no lower extremity edema/swelling GI: Abdomen is soft, non-distended. Normal bowel sounds. No masses appreciated. No tenderness to palpation. No rebound, guarding, or rigidity noted. Neurological: A&O x4. No cranial nerve dysfunction observed. . Moves all extremities. Sensation intact. Constitutional Vital Signs, click to edit/add: Last Vital Signs Temp 97.5 F L 11/15/24 03:42 Pulse 117 H 11/15/24 06:03 Resp 21 H 11/15/24 05:30 BP 114/67 11/15/24 05:30 Pulse Ox 96 11/15/24 04:45 O2 Del Method Room Air 11/15/24 00:44 Course Vital Signs Vital signs: Vital Signs Temperature 97.9 F 11/14/24 18:22 Pulse Rate 114 H 11/14/24 18:22 Respiratory Rate 18 11/14/24 18:22 Blood Pressure 80/60 L 11/14/24 18:22 Pulse Oximetry 98 11/14/24 18:22 Oxygen Delivery Method Room Air 11/14/24 18:22 Temperature 97.5 F L 11/15/24 03:42 Pulse Rate 117 H 11/15/24 06:03 Respiratory Rate 21 H 11/15/24 05:30 Blood Pressure 114/67 11/15/24 05:30 Pulse Oximetry 96 11/15/24 04:45 Oxygen Delivery Method Room Air 11/15/24 00:44 Medical Decision Making [facility] Narrative Medical decision making narrative: The patient case started and blood workup ordered with the some IV fluids started the patient blood pressure is low, she is presenting to us with generalized weakness and hypotension Patient care was transferred to Patient was placed on ivf embryologist and EKG obtained. Blood drawn and sent for evaluation. Due to her hypotension and rapid A-fib, she was given normal saline IV fluid. Because of her qualification for sepsis protocol, I ordered her to receive 30 cc/kg IV fluid bolus. Blood cultures x 2 are also obtained. Lactate was found to be elevated so the patient was given IV Rocephin. I did order a urine to be obtained but she was unable to give a sample. CBC normal at 10.6. She has anemia with a hemoglobin of 8.5. No recent history to suggest acute GI bleed. Sodium decreased at 129, chloride decreased at 97, BUN and creatinine elevated at 54 and 1.9, respectively. These are elevated above her baseline renal function. Taken together this is more indicative of dehydration which is consistent with the patient's history that she had not been eating well for the last 5 or 6 days and had not been taking fluids up until about 24 hours ago. I was still waiting acquisition of a urine sample and reevaluation following her completion of all of her normal saline IV fluid. She did have reduction in her tachycardia with the 2 L of normal saline fluid. I did order an additional treatment of Cardizem 5 mg IV slow push, for her rapid A-fib. Her rhythm now is closer to the 95-110 range. @21:45 she complained of mid sternal chest pain radiating into her back, rated 5/10. repeat EKG = AFib @ 115bpm, nonspecific T wave abnormality, normal other intervals, no ST elevation or ischemic changes. I went and evaluated her, examined her, no central or peripheral signs of CHF and not chest wall tenderness. She remains intermittently tachycardic in her AFib. Repeat troponin ordered. BNP also ordered. Lactate decreased from 6 to 5 while in the ED. After the 3rd L of NS IVF was given, her vitals signs were as follows: BP 95/42, R 17, P 105 (variable/afib), 91%sat Case discussed with telehospitalist Joie - agreed to admit to ICU for further care. Her PCP is Dr Valencia. pt agreeable to admission. Lab Data Labs: Lab Results 11/14/24 11/14/24 11/14/24 Range/Units 18:38 19:24 21:30 WBC 10.6 (4.0-11.0) 10^3/uL RBC 3.50 L (4.20-5.40) 10^6/uL Hgb 8.5 L (12.0-16.0) g/dL Hct 28.4 L (36.0-48.0) % MCV 81.1 (81.0-99.0) fL MCH 24.3 L (26.7-34.0) pg MCHC 29.9 (29.9-35.2) g/dL RDW 20.5 H (11.0-15.0) % Plt Count 187 (150-450) 10^3/uL MPV 11.0 (9.5-13.5) fL Seg Neuts % (Manual) 76.0 H (43.0-75.0) Band Neutrophils % 15.0 H (0-5) % Lymphocytes % (Manual) 3.0 L (20.5-60.0) % Monocytes % (Manual) 5.0 (1.7-12.0) % Eosinophils % (Manual) 0.0 L (0.9-7.0) % Basophils % (Manual) 0.0 L (0.2-2.0) % Metamyelocytes % 1.0 Neutrophils # (Manual) 8.05 H (1.4-6.5) 10^3/uL Band Neutrophils # 1.6 H (0.0-0.3) 10^3/uL Lymphocytes # (Manual) 0.31 L (1.20-3.80) 10^3/uL Monocytes # (Manual) 0.53 (0.30-0.80) 10^3/uL Eosinophils # (Manual) 0.00 (0.00-0.70) 10^3/uL Basophils # (Manual) 0.00 (0.00-0.10) 10^3/uL Metamyelocytes # 0.10 Nucleated RBCs 1 Hypochromasia 1+ Anisocytosis 1+ Microcytosis 1+ PT 12.8 H (9.0-11.6) sec INR 1.23 Sodium 129 L (136-145) mmol/L Potassium 4.1 (3.5-5.1) mmol/L Chloride 97 L (98-107) mmol/L Carbon Dioxide 22.0 (21.0-32.0) mmol/L Anion Gap 14.1 BUN 54.0 H (7.0-18.0) mg/dL Creatinine 1.90 H (0.55-1.02) mg/dL Est GFR ( Amer) 32 L (>=60 mL/min/1.73m^2) Est GFR (Non-Af Amer) 26 L (>=60 mL/min/1.73m^2) BUN/Creatinine Ratio 28.4 Glucose 485 H (74-106) mg/dL Lactate 6.2 H* 5.7 H* (0.4-2.0) mmol/L Calcium 8.1 L (8.5-10.1) mg/dL Total Bilirubin 1.1 H (0.2-1.0) mg/dL AST 46 H (15-37) U/L ALT 23 (14-59) U/L Alkaline Phosphatase 208 H (46-116) U/L Troponin I High Sens 5.7 (4.0-51.3) pg/mL NT-Pro-B Natriuret Pep (<=900.0) pg/mL Total Protein 5.9 L (6.4-8.2) g/dL Albumin 1.6 L (3.4-5.0) g/dL Globulin 4.3 g/dL Albumin/Globulin Ratio 0.4 Urine Color (YELLOW) Urine Clarity (CLEAR) Urine pH (5.0-9.0) Ur Specific Mabel (1.005-1.025) Urine Protein (NEG/TRACE) mg/dL Urine Glucose (UA) (NEGATIVE) mg/dL Urine Ketones (NEGATIVE) mg/dL Urine Occult Blood (NEGATIVE) Urine Nitrite (NEGATIVE) Urine Bilirubin (NEGATIVE) Urine Urobilinogen (0.2-1.0) EU/dL Ur Leukocyte Esterase (NEGATIVE) Urine RBC (0-2) #/HPF Urine WBC (NONE SEEN) #/HPF Ur Squamous Epith Cells (NONE/RARE) #/LPF Urine Crystals (None Seen) #/HPF Urine Bacteria (NONE SEEN) #/HPF Urine Casts (NONE SEEN) #/LPF Urine Mucus (NONE SEEN) Ur Culture Indicated? Blood Type O Positive Antibody Screen Negative 11/14/24 11/14/24 Range/Units 22:00 23:30 WBC (4.0-11.0) 10^3/uL RBC (4.20-5.40) 10^6/uL Hgb (12.0-16.0) g/dL Hct (36.0-48.0) % MCV (81.0-99.0) fL MCH (26.7-34.0) pg MCHC (29.9-35.2) g/dL RDW (11.0-15.0) % Plt Count (150-450) 10^3/uL MPV (9.5-13.5) fL Seg Neuts % (Manual) (43.0-75.0) Band Neutrophils % (0-5) % Lymphocytes % (Manual) (20.5-60.0) % Monocytes % (Manual) (1.7-12.0) % Eosinophils % (Manual) (0.9-7.0) % Basophils % (Manual) (0.2-2.0) % Metamyelocytes % Neutrophils # (Manual) (1.4-6.5) 10^3/uL Band Neutrophils # (0.0-0.3) 10^3/uL Lymphocytes # (Manual) (1.20-3.80) 10^3/uL Monocytes # (Manual) (0.30-0.80) 10^3/uL Eosinophils # (Manual) (0.00-0.70) 10^3/uL Basophils # (Manual) (0.00-0.10) 10^3/uL Metamyelocytes # Nucleated RBCs Hypochromasia Anisocytosis Microcytosis PT (9.0-11.6) sec INR Sodium (136-145) mmol/L Potassium (3.5-5.1) mmol/L Chloride (98-107) mmol/L Carbon Dioxide (21.0-32.0) mmol/L Anion Gap BUN (7.0-18.0) mg/dL Creatinine (0.55-1.02) mg/dL Est GFR ( Amer) (>=60 mL/min/1.73m^2) Est GFR (Non-Af Amer) (>=60 mL/min/1.73m^2) BUN/Creatinine Ratio Glucose (74-106) mg/dL Lactate (0.4-2.0) mmol/L Calcium (8.5-10.1) mg/dL Total Bilirubin (0.2-1.0) mg/dL AST (15-37) U/L ALT (14-59) U/L Alkaline Phosphatase (46-116) U/L Troponin I High Sens 8.4 (4.0-51.3) pg/mL NT-Pro-B Natriuret Pep 7070.0 H* (<=900.0) pg/mL Total Protein (6.4-8.2) g/dL Albumin (3.4-5.0) g/dL Globulin g/dL Albumin/Globulin Ratio Urine Color Yellow (YELLOW) Urine Clarity Clear (CLEAR) Urine pH 5.0 (5.0-9.0) Ur Specific Mabel 1.025 (1.005-1.025) Urine Protein Trace (NEG/TRACE) mg/dL Urine Glucose (UA) >=1000 A (NEGATIVE) mg/dL Urine Ketones Trace A (NEGATIVE) mg/dL Urine Occult Blood Negative (NEGATIVE) Urine Nitrite Negative (NEGATIVE) Urine Bilirubin Small A (NEGATIVE) Urine Urobilinogen 1.0 (0.2-1.0) EU/dL Ur Leukocyte Esterase Trace A (NEGATIVE) Urine RBC 0-2 (0-2) #/HPF Urine WBC 2-5 A (NONE SEEN) #/HPF Ur Squamous Epith Cells Rare (NONE/RARE) #/LPF Urine Crystals None seen (None Seen) #/HPF Urine Bacteria Moderate A (NONE SEEN) #/HPF Urine Casts None seen (NONE SEEN) #/LPF Urine Mucus None seen (NONE SEEN) Ur Culture Indicated? Yes Blood Type Antibody Screen Discharge Plan Discharge Chief Complaint: Weakness Clinical Impression: Sepsis, Atrial fibrillation with rapid ventricular response, Septic shock, Acute kidney injury, Acute dehydration Patient Disposition: Admitted As Inpatient Time of Disposition Decision: 22:01 Discharge Date/Time: 11/14/24 23:54 Documented by User: Howard Johnston 11/14/24 23:10 HPI HPI - General Adult General Chief complaint: Weakness Stated complaint: weakness, neck pain Time Seen by Provider: 11/14/24 18:39 Related Data Home Medications ?Medication ?Instructions ?Recorded ?Confirmed metformin 500 mg tablet 500 mg PO QID 05/23/23 11/07/24 ramipril 10 mg capsule 10 mg PO DAILY 05/23/23 11/15/24 simvastatin 20 mg tablet 20 mg PO DAILY 05/23/23 11/15/24 venlafaxine 75 mg capsule,extended 75 mg PO DAILY 05/23/23 11/15/24 release 24 hr metoprolol tartrate 100 mg tablet 100 mg PO BID 11/15/24 11/15/24 pantoprazole 40 mg tablet,delayed 40 mg PO DAILY 11/15/24 11/15/24 release tizanidine 4 mg tablet 4 mg PO BID PRN muscle spasticity 11/15/24 11/15/24 Previous Rx's ?Medication ?Instructions ?Recorded apixaban 5 mg tablet (Eliquis) 5 mg PO BID #60 tabs 05/25/23 magnesium oxide 400 mg (241.3 mg 400 mg PO BID #60 tabs 05/25/23 magnesium) tablet lancets #200 ea 11/02/24 Allergies Allergy/AdvReac Type Severity Reaction Status Date / Time Sulfa (Sulfonamide AdvReac Mild Hives Verified 11/02/24 08:28 Antibiotics) Opioid HPI Opioid Management Most Recent Opioid Data: Last Pain Scale 8 11/15/24 04:17 11/15/24 Last Pain Assessment 11/15/24 06:02 Last ORT Total Score 1 11/15/24 00:41 11/15/24 Last ORT Risk Category Low Risk 11/15/24 00:41 11/15/24 PFSH PFS Medical History Hypertension ?I10 - Essential (primary) hypertension (ICD-10) Diabetes ?E11.9 - Type 2 diabetes mellitus without complications (ICD-10) Dyslipidemia ?E78.5 - Hyperlipidemia, unspecified (ICD-10) Hypomagnesemia ?E83.42 - Hypomagnesemia (ICD-10) Acute hyperglycemia ?R73.9 - Hyperglycemia, unspecified (ICD-10) Cervical cancer ?C53.9 - Malignant neoplasm of cervix uteri, unspecified (ICD-10) Osteoarthritis ?M19.90 - Unspecified osteoarthritis, unspecified site (ICD-10) Sleep apnea ?G47.30 - Sleep apnea, unspecified (ICD-10) Kidney stones ?N20.0 - Calculus of kidney (ICD-10) Cataract ?H26.9 - Unspecified cataract (ICD-10) Palpitations ?R00.2 - Palpitations (ICD-10) Anemia ?D64.9 - Anemia, unspecified (ICD-10) Rotator cuff arthropathy of left shoulder ?M12.812 - Other specific arthropathies, not elsewhere classified, left shoulder (ICD-10) Atrial fibrillation with rapid ventricular response ?I48.91 - Unspecified atrial fibrillation (ICD-10) Surgical History H/O repair of rotator cuff ?Z98.890 - Other specified postprocedural states (ICD-10) H/O section ?Z98.891 - History of uterine scar from previous surgery (ICD-10) History of tonsillectomy ?Z90.89 - Acquired absence of other organs (ICD-10) History of cholecystectomy ?Z90.49 - Acquired absence of other specified parts of digestive tract (ICD-10) History of appendectomy ?Z90.49 - Acquired absence of other specified parts of digestive tract (ICD-10) H/O: hysterectomy ?Z90.710 - Acquired absence of both cervix and uterus (ICD-10) Family History Grandmother Family history of cancer Father Family history of diabetes mellitus Grandfather Family history of cancer Brother Family history of hypertension Social History Within the past year, how often did you have a drink containing alcohol: monthly or less Within the past year, how often did you have six or more drinks on one occasion: never Smoking status: Never smoker Non-prescribed substance use: denies use 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 Highest level of school completed/degree received: Bachelor's degree Do you want help with school or training: No Are you now , , , , never or living with a partner: never In a typical week, how many times do you talk on the telephone with family, friends, or neighbors: 3 or more times per week How often do you get together with friends or relatives: once per week How often do you attend uatsdin or mandaen services: 4 or more times per year Do you belong to any clubs or organizations such as uatsdin groups unions, fraternal or athletic groups, or school groups: yes Total score: 3 Score interpretation: A score of greater than or equal to 2 indicates the lowest level of social isolation. Little interest or pleasure in doing things: not at all Feeling down, depressed, or hopeless: not at all Feel stressed/tense/nervous/anxious/difficulty sleeping: not at all Life stressors: recent of family or friend Due to disability, difficulty making decisions: No Exam Constitutional Vital Signs, click to edit/add: Last Vital Signs Temp 97.5 F L 11/15/24 03:42 Pulse 117 H 11/15/24 06:03 Resp 21 H 11/15/24 05:30 BP 114/67 11/15/24 05:30 Pulse Ox 96 11/15/24 04:45 O2 Del Method Room Air 11/15/24 00:44 Course Vital Signs Vital signs: Vital Signs Temperature 97.9 F 11/14/24 18:22 Pulse Rate 114 H 11/14/24 18:22 Respiratory Rate 18 11/14/24 18:22 Blood Pressure 80/60 L 11/14/24 18:22 Pulse Oximetry 98 11/14/24 18:22 Oxygen Delivery Method Room Air 11/14/24 18:22 Temperature 97.5 F L 11/15/24 03:42 Pulse Rate 117 H 11/15/24 06:03 Respiratory Rate 21 H 11/15/24 05:30 Blood Pressure 114/67 11/15/24 05:30 Pulse Oximetry 96 11/15/24 04:45 Oxygen Delivery Method Room Air 11/15/24 00:44 Medical Decision Making MDM Narrative Medical decision making narrative: Patient was placed on ivf embryologist and EKG obtained. Blood drawn and sent for evaluation. Due to her hypotension and rapid A-fib, she was given normal saline IV fluid. Because of her qualification for sepsis protocol, I ordered her to receive 30 cc/kg IV fluid bolus. Blood cultures x 2 are also obtained. Lactate was found to be elevated so the patient was given IV Rocephin. I did order a urine to be obtained but she was unable to give a sample. CBC normal at 10.6. She has anemia with a hemoglobin of 8.5. No recent history to suggest acute GI bleed. Sodium decreased at 129, chloride decreased at 97, BUN and creatinine elevated at 54 and 1.9, respectively. These are elevated above her baseline renal function. Taken together this is more indicative of dehydration which is consistent with the patient's history that she had not been eating well for the last 5 or 6 days and had not been taking fluids up until about 24 hours ago. I was still waiting acquisition of a urine sample and reevaluation following her completion of all of her normal saline IV fluid. She did have reduction in her tachycardia with the 2 L of normal saline fluid. I did order an additional treatment of Cardizem 5 mg IV slow push, for her rapid A-fib. Her rhythm now is closer to the 95-110 range. @21:45 she complained of mid sternal chest pain radiating into her back, rated 5/10. repeat EKG = AFib @ 115bpm, nonspecific T wave abnormality, normal other intervals, no ST elevation or ischemic changes. I went and evaluated her, examined her, no central or peripheral signs of CHF and not chest wall tenderness. She remains intermittently tachycardic in her AFib. Repeat troponin ordered. BNP also ordered. Lactate decreased from 6 to 5 while in the ED. After the 3rd L of NS IVF was given, her vitals signs were as follows: BP 95/42, R 17, P 105 (variable/afib), 91%sat Case discussed with telehospitalist Joie - agreed to admit to ICU for further care. Her PCP is Dr Valencia. pt agreeable to admission. Lab Data Lab results reviewed: Yes I reviewed the patient's lab results Labs: Lab Results 11/14/24 11/14/24 11/14/24 Range/Units 18:38 19:24 21:30 WBC 10.6 (4.0-11.0) 10^3/uL RBC 3.50 L (4.20-5.40) 10^6/uL Hgb 8.5 L (12.0-16.0) g/dL Hct 28.4 L (36.0-48.0) % MCV 81.1 (81.0-99.0) fL MCH 24.3 L (26.7-34.0) pg MCHC 29.9 (29.9-35.2) g/dL RDW 20.5 H (11.0-15.0) % Plt Count 187 (150-450) 10^3/uL MPV 11.0 (9.5-13.5) fL Seg Neuts % (Manual) 76.0 H (43.0-75.0) Band Neutrophils % 15.0 H (0-5) % Lymphocytes % (Manual) 3.0 L (20.5-60.0) % Monocytes % (Manual) 5.0 (1.7-12.0) % Eosinophils % (Manual) 0.0 L (0.9-7.0) % Basophils % (Manual) 0.0 L (0.2-2.0) % Metamyelocytes % 1.0 Neutrophils # (Manual) 8.05 H (1.4-6.5) 10^3/uL Band Neutrophils # 1.6 H (0.0-0.3) 10^3/uL Lymphocytes # (Manual) 0.31 L (1.20-3.80) 10^3/uL Monocytes # (Manual) 0.53 (0.30-0.80) 10^3/uL Eosinophils # (Manual) 0.00 (0.00-0.70) 10^3/uL Basophils # (Manual) 0.00 (0.00-0.10) 10^3/uL Metamyelocytes # 0.10 Nucleated RBCs 1 Hypochromasia 1+ Anisocytosis 1+ Microcytosis 1+ PT 12.8 H (9.0-11.6) sec INR 1.23 Sodium 129 L (136-145) mmol/L Potassium 4.1 (3.5-5.1) mmol/L Chloride 97 L (98-107) mmol/L Carbon Dioxide 22.0 (21.0-32.0) mmol/L Anion Gap 14.1 BUN 54.0 H (7.0-18.0) mg/dL Creatinine 1.90 H (0.55-1.02) mg/dL Est GFR ( Amer) 32 L (>=60 mL/min/1.73m^2) Est GFR (Non-Af Amer) 26 L (>=60 mL/min/1.73m^2) BUN/Creatinine Ratio 28.4 Glucose 485 H (74-106) mg/dL Lactate 6.2 H* 5.7 H* (0.4-2.0) mmol/L Calcium 8.1 L (8.5-10.1) mg/dL Total Bilirubin 1.1 H (0.2-1.0) mg/dL AST 46 H (15-37) U/L ALT 23 (14-59) U/L Alkaline Phosphatase 208 H (46-116) U/L Troponin I High Sens 5.7 (4.0-51.3) pg/mL NT-Pro-B Natriuret Pep (<=900.0) pg/mL Total Protein 5.9 L (6.4-8.2) g/dL Albumin 1.6 L (3.4-5.0) g/dL Globulin 4.3 g/dL Albumin/Globulin Ratio 0.4 Urine Color (YELLOW) Urine Clarity (CLEAR) Urine pH (5.0-9.0) Ur Specific Mabel (1.005-1.025) Urine Protein (NEG/TRACE) mg/dL Urine Glucose (UA) (NEGATIVE) mg/dL Urine Ketones (NEGATIVE) mg/dL Urine Occult Blood (NEGATIVE) Urine Nitrite (NEGATIVE) Urine Bilirubin (NEGATIVE) Urine Urobilinogen (0.2-1.0) EU/dL Ur Leukocyte Esterase (NEGATIVE) Urine RBC (0-2) #/HPF Urine WBC (NONE SEEN) #/HPF Ur Squamous Epith Cells (NONE/RARE) #/LPF Urine Crystals (None Seen) #/HPF Urine Bacteria (NONE SEEN) #/HPF Urine Casts (NONE SEEN) #/LPF Urine Mucus (NONE SEEN) Ur Culture Indicated? Blood Type O Positive Antibody Screen Negative 11/14/24 11/14/24 Range/Units 22:00 23:30 WBC (4.0-11.0) 10^3/uL RBC (4.20-5.40) 10^6/uL Hgb (12.0-16.0) g/dL Hct (36.0-48.0) % MCV (81.0-99.0) fL MCH (26.7-34.0) pg MCHC (29.9-35.2) g/dL RDW (11.0-15.0) % Plt Count (150-450) 10^3/uL MPV (9.5-13.5) fL Seg Neuts % (Manual) (43.0-75.0) Band Neutrophils % (0-5) % Lymphocytes % (Manual) (20.5-60.0) % Monocytes % (Manual) (1.7-12.0) % Eosinophils % (Manual) (0.9-7.0) % Basophils % (Manual) (0.2-2.0) % Metamyelocytes % Neutrophils # (Manual) (1.4-6.5) 10^3/uL Band Neutrophils # (0.0-0.3) 10^3/uL Lymphocytes # (Manual) (1.20-3.80) 10^3/uL Monocytes # (Manual) (0.30-0.80) 10^3/uL Eosinophils # (Manual) (0.00-0.70) 10^3/uL Basophils # (Manual) (0.00-0.10) 10^3/uL Metamyelocytes # Nucleated RBCs Hypochromasia Anisocytosis Microcytosis PT (9.0-11.6) sec INR Sodium (136-145) mmol/L Potassium (3.5-5.1) mmol/L Chloride (98-107) mmol/L Carbon Dioxide (21.0-32.0) mmol/L Anion Gap BUN (7.0-18.0) mg/dL Creatinine (0.55-1.02) mg/dL Est GFR ( Amer) (>=60 mL/min/1.73m^2) Est GFR (Non-Af Amer) (>=60 mL/min/1.73m^2) BUN/Creatinine Ratio Glucose (74-106) mg/dL Lactate (0.4-2.0) mmol/L Calcium (8.5-10.1) mg/dL Total Bilirubin (0.2-1.0) mg/dL AST (15-37) U/L ALT (14-59) U/L Alkaline Phosphatase (46-116) U/L Troponin I High Sens 8.4 (4.0-51.3) pg/mL NT-Pro-B Natriuret Pep 7070.0 H* (<=900.0) pg/mL Total Protein (6.4-8.2) g/dL Albumin (3.4-5.0) g/dL Globulin g/dL Albumin/Globulin Ratio Urine Color Yellow (YELLOW) Urine Clarity Clear (CLEAR) Urine pH 5.0 (5.0-9.0) Ur Specific Mabel 1.025 (1.005-1.025) Urine Protein Trace (NEG/TRACE) mg/dL Urine Glucose (UA) >=1000 A (NEGATIVE) mg/dL Urine Ketones Trace A (NEGATIVE) mg/dL Urine Occult Blood Negative (NEGATIVE) Urine Nitrite Negative (NEGATIVE) Urine Bilirubin Small A (NEGATIVE) Urine Urobilinogen 1.0 (0.2-1.0) EU/dL Ur Leukocyte Esterase Trace A (NEGATIVE) Urine RBC 0-2 (0-2) #/HPF Urine WBC 2-5 A (NONE SEEN) #/HPF Ur Squamous Epith Cells Rare (NONE/RARE) #/LPF Urine Crystals None seen (None Seen) #/HPF Urine Bacteria Moderate A (NONE SEEN) #/HPF Urine Casts None seen (NONE SEEN) #/LPF Urine Mucus None seen (NONE SEEN) Ur Culture Indicated? Yes Blood Type Antibody Screen ECG Data Attestation: I personally reviewed and interpreted this ECG as follows: Interpretation: #1 EKG interpretation: Emergency Department physician interpretation. Rapid atrial fibrillation at 127bpm. Nonspecific T wave changes. no ST segment elevation or depression. #2 EKG interpretation: Emergency Department physician interpretation. Rapid atrial fibrillation at 115bpm. Nonspecific T wave changes. No ST segment elevation or depression. Discharge Plan Discharge Chief Complaint: Weakness Clinical Impression: Sepsis, Atrial fibrillation with rapid ventricular response, Septic shock, Acute kidney injury, Acute dehydration Patient Disposition: Admitted As Inpatient Time of Disposition Decision: 22:01 Discharge Date/Time: 11/14/24 23:54
[2024-11-14] MEDS: 0.9 % SODIUM CHLORIDE 1,000 ML 1000 ML IV (19:43)
[2024-11-14] MEDS: CEFTRIAXONE 1,000 MG in 0.9 % SODIUM CHLORIDE 50 ML 100 MG IV (19:52)
[2024-11-14] MEDS: DILTIAZEM HCL 25 MG/5 ML VIAL 5 MG IV (20:37)
[2024-11-14] MEDS: 0.9 % SODIUM CHLORIDE 1,000 ML 2000 ML IV (21:16)
--- NOTE | 2024-11-14 21:48 | ECG_ITS ---
[facility] Test Date: 2024-11-14 Pat Name: CONNIE WISE Department: Room: - Gender: Female [employer]: : [id number] Requested By: Howard Johnston Order Number: [id number] Reading MD: MARYJANE REYNOLDS Measurements Intervals [place] Rate: 115 P: -[id number] DC: -[id number] QRS: 65 QRSD: 78 T: 90 QT: 322 QTc: 390 Interpretive Statements [id number] Atrial fibrillation with rapid ventricular response [id number] Nonspecific Twave abnormality, probably digitalis effect 9140 abnormal rhythm ECG No previous ECG available for comparison
[2024-11-14 21:59] LABS: Lactate/Lactic Acid 5.7 mmol/L (0.4-2.0)
[2024-11-14 22:44] LABS: Troponin I High Sensitivity 8.4 pg/mL (4.0-51.3)
--- OUTSIDE RECORDS SUMMARY | 2024-11-14 23:57 | XMS_ITS | CCD ---
Author Organization [facility] ion Partnership [facility] Care Team Providers Care Diesel Maintenance Technician Name Role Phone Soco Hernanedz Unavailable CoxAshley mcgee Unavailable GAIL, DR WESLEY [...] Consulting Unavailable Maryjane Valencia Primary Care Physician [phone] Manoj Damon Attending Unavailable NillManoj Admitting Unavailable [...] Reaction(s) Facility (1 source) Sulfacetamide Drug Allergy youbeQ - [facility] Other (1 source) Sulfonamides (Antibiotic) Drug allergy (disorder) 11-21-19 [facility] Repository (2 sources) Sulfonamides (Antibiotic); Translations: [sulfa drugs] Drug allergy Weal (disorder) [facility] [place] (1 source) Sulfacetamide Drug Allergy 02-17-20 [facility] Repository (1 source) Sulfonamides (Antibiotic); Translations: [SULFA (SULFONAMIDE ANTIBIOTICS)] Propensity to adverse reactions to drug (disorder) 05-29-20 [facility] Repository Medications Current Medications Medication Drug Class(es) Dates Sig (Normalized) Sig (Original) [id number] 200 actuat albuterol 0.09 mg/actuat metered dose [...] 1.5 mg/ml oral solution (1 source) Uncompetitive H-derdur-H-aspartate Receptor Antagonist, Sigma-1 Agonist Start: 02-16-2022 take 10 mL by mouth every eight hours [place] DM 7.5-7.5 MG/5ML 10 mL Orally every [...] every six hours as needed for pain Cerrillos 5-325 MG 1 tablet Orally every 6 hrs as needed for pain Jun, Not-Taking Start: 07-09-2015 take 1 tablet by abelino th every six hours as needed for pain Cerrillos 5-325 MG 1 tablet Orally every 6 [...] Range Facility Office Visiton 11-09-2024 Follow-up visit [id number] Shirley Brian 1955 F Date Provider Department Center 11/09/2024 [id number] ESPINOZA DAISY Guerrero [facility] Family History Problem Relation Age of Onset No Known Problems Mother Diabetes Father No Known Problems Sister No Known Problems Brother Family Status - Relation Status Age at Mother Father Sister Brother Level of Service:85778 [place] OFFICE/OUTPATIENT ESTABLISHED MOD MDM 30 MIN Reason for Visit and Comments: Atrial Fibrillation [80] - On Eliquis. Hypertension [108226] Congestive Heart Failure [127] - Denies chest pain, SOB, and LE edema. Valve Disorder [3372] Epistaxis (Nose Bleed) [601555] - Having epistaxis in the mornings, recently had 1 straight week of them. Palpitations [414286] - She presented to [facility] ED last weekend for palpitations. Patient states she was advised to increase metoprolol to 75mg bid x3 days, and then return to baseline dose of 50mg bid. [facility] Ambulatory Visit Summaryon 12-03-2023 Ambulatory Visit [...] for choosing us for your [facility]. [facility] Electrophysiology Consult Note [facility] Clinic Reason for visit: Afib 08/06/24 Pt here for LOOP 07/03/24 Pt is doing well and occasionally feels palpitations. HPI: Shirley Brian is a 68 y.o. year old with past medical history of Hypertension, diabetes, dyslipidemia, palpitations. She was recently seen at the [facility] for A-fib RVR as she was admitted for diarrhea and palpitations. She was found to have C. difficile and was treated with antibiotics and converted to sinus rhythm on her own. She states she normally would get palpitations when she drinks caffeine and typically avoids caffeine, the day of her admission she believes she was given caffeinated coffee at [employer] and then began experience palpitations while already [...] show any evidence of reversible ischemia. below [id number] at least 4 for age, gender, hypertension, [...] Arteries: bilateral antoine (more content not included)... [facility] NURSNOTEon 08-06-2024 NURSNOTE RN educated pt on d/ c instructions. RN encouraged pt to voice any questions or concerns. Pt verbalizes no questions or concerns at this time. Pt was wheeled off of unit with all of belongings. [facility] 36on 07-11-2024 36 Regarding echo resul t from 05/29/2024: MD Anne Garsia MA Notify patient that her heart function is normal, valvular heart disease is stable, but she has evidence of pulmonary hypertension. Advise the patient to take the Lasix every day not as needed, check BMP in 1 week, refer her for sleep study Normal [facility] Office Visiton 07-03-2024 Follow-up visit [id number] Shirley Brian 1955 Date Provider Department Center 07/03/2024 ROGERS BERNAL DAISY [facility] Family History Problem Relation Age of Onset No Known Problems Mother Diabetes Father No Known Problems Sister No Known Problems Brother Family Status - Relation Status Age at Mother Father Sister Brother Level of Service:18302 CA OFFICE/OUTPATIENT ESTABLISHED LOW MDM 20 MIN Normal [facility] Office Visiton 04-19-2024 Follow-up visit [id number] Shirley Brian 1955 Date Provider Department Center 04/19/2024 AYDIN LOREDO Family History Problem Relation Age of Onset No Known Problems Mother Diabetes Father No Known Problems Sister No Known Problems Brother Family Status - Relation Status Age at Mother Father Sister Brother Level of Service:71131 CA OFFICE/OUTPATIENT ESTABLISHED MOD MDM 30 MIN Normal [facility] INSULINon 09-25-2022 Insulin 14.1 uIU/mL Normal 2.6-24.9 [facility] Comment on above: Performed By: #### I NSULIN #### [facility] [address] [place], [place] [address] Dr. Becky Josue CBC AUTO DIFFon 09-24-2022 BASO # 0.0 103/ul Normal 0.0-0.1 [facility] Comment on above: Performed By: #### C BC ####[facility] [address] [place], [place] [address]HzDr. Becky Josue Basophils/100 WBC (Bld) 0.5 % Normal 0.2-2.0 [facility] Comment on above: Performed By: #### C BC ####[facility] [address] [place] [id number]. Becky Josue EO # 0.1 103/ul Normal 0.0-0.7 [facility] Comment on above: Performed By: #### C BC ####[facility] [address] [place] [address]Dr. Becky Josue Eosinophils/100 WBC (Bld) 3.3 % Normal 0.9-7.0 [facility] Comment on above: Performed By: #### C BC ####[facility] [address] [place] [address]Dr. Becky Josue Erythrocyte distribution width (RBC) [Ratio] 14.3 % Normal 11.0-15.0 [facility] Comment on above: Performed By: #### C BC ####[facility] [address] [place] [address]Dr. Becky Josue Hematocrit (Bld) [Volume fraction] 42.6 % Normal 36.0-48.0 [facility] Comment on above: Performed By: #### C BC ####[facility] [address] [place], [place] [address]Dr. Becky Josue Hemoglobin (Bld) [Mass/Vol] 13.8 g/dL Normal 12.0-16.0 [facility] Comment on above: Performed By: #### C BC ####[facility] [address] [place], [place] [address]Dr. Becky Josue IG # 0.02 10e3/ul Normal 0.00-0.03 [facility] Comment on above: Performed By: #### C BC ####[facility] [address] [place], [place] [address]Dr. Becky Josue IG % 0.5 % Normal 0.0-0.5 [facility] Comment on above: Performed By: #### C BC ####[facility] [address] [place], [place] [address]DrBrayan Becky Josue LYMPH # 1.1 103/ul Critically low 1.2-3.8 [facility] Comment on above: Performed By: #### C BC ####[facility] W[address] [place], [place] [address]Dr. Becky Joselo Lymphocytes/100 WBC (Bld) 28.0 % Normal 20.5-60.0 [facility] Comment on above: Performed By: #### C BC ####[facility] [address] [place] [address]Dr. Becky Josue MANUAL DIFF REQ NO Normal [facility] Comment on above: Performed By: #### C BC ####[facility] [address] [place] [id number]. Becky Josue MCH (RBC) [Entitic mass] 29.3 pg Normal 26.7-34.0 [facility] Comment on above: Performed By: #### C BC ####[facility] [address] [place] [address]Dr. Becky Josue MCHC (RBC) [Mass/Vol] 32.4 g/dL Normal 29.9-35.2 [facility] Comment on above: Performed By: #### C BC ####[facility] [address] [place], [place] [address]Dr. Becky Josue MCV (RBC) [Entitic vol] 90.4 fL Normal 81.0-99.0 [facility] Comment on above: Performed By: #### C BC ####[facility] [address] [place], [place] [address]Dr. Becky Josue MONO # 0.3 103/ul Normal 0.3-0.8 [facility] Comment on above: Performed By: #### C BC ####[facility] Rc[address] [place], [place] [address]Dr. Becky Josue Monocytes/100 WBC (Bld) 8.3 % Normal 1.7-12.0 [facility] Comment on above: Performed By: #### C BC ####[facility] [address] [place], [place] [address]DrBrayan Josue NEUT # 2.4 103/ul Normal 1.4-6.5 [facility] Comment on above: Performed By: #### C BC ####[facility] [address] [place], [place] [address]Dr. Becky Josue Neutrophils/100 WBC (Bld) 59.4 % Normal 43.0-75.0 [facility] Comment on above: Performed By: #### C BC ####[facility] [address] [place] [id number]. Becky Josue Platelet mean volume (Bld) [Entitic vol] 10.3 fL Normal 9.5-13.5 [facility] Comment on above: Performed By: #### C BC ####[facility] [address] [place] [address]Dr. Becky Josue PLT 149 103/ul Critically low 150-[address] [facility] Comment on above: Performed By: #### C BC ####[facility] [address] [place] [address]Dr. Becky Joselo RBC 4.71 106/ul Normal 4.20-5.40 [facility] Comment on above: Performed By: #### C BC ####[facility] [address] [place], [place] [address]Dr. Becky Joselo WBC 4.0 103/ul Normal 4.0-11.0 [facility] Comment on above: Performed By: #### C BC ####[facility] [address] [place], [place] [id number]. Becky Joselo FREE THYROXINE INDEX T7on FTI 3.36 Normal 1.30-4.50 [facility] Comment on above: Performed By: #### L IPID, CMP, TSH, T7 ####[facility] [address] [place] [id number]. Becky Joselo T3U 32.0 % Normal 30.0-39.0 [facility] Comment on above: Performed By: #### L IPID, CMP, TSH, T7 ####[facility] [address] [place] [id number]. Becky Joselo T4 [Mass/Vol] 10.50 ug/dL Normal 4.80-13.[address] [facility] Comment on above: Performed By: #### L IPID, CMP, TSH, T7 ####[facility] [address] [place] [address]DrBrayan Josue GLYCOHEMOGLOBIN A1Con 2021 ADA RECOMMENDATION SEE BELOW Normal [facility] Comment on above: Result Comment: ADA RECOMMENDED LIMIT 4.0 - 6.0 ADA THERAPEUTIC TARGET < 7.0 ACTION SUGGESTED > 7.0 Performed By: #### A 1C #### [facility] [address] [place] [address] [address] Becky Josue Glucose [Mass/Vol] 237 mg/dL Normal [facility] Comment on above: Performed By: #### A 1C #### [facility] [address] [place] [address] [address] Becky Josue HbA1c (Bld) [Mass fraction] 9.9 % Critically high 4.5-6.2 [facility] Comment on above: Performed By: #### A 1C #### [facility] [address] [place] [address] [address] Becky Josue IRONon 09-24-2022 Iron [Mass/Vol] 55.0 ug/dL Normal 50.0-170.0 [facility] Comment on above: Performed By: #### I MARLYN VITAD #### [facility] [address] [place] [address] [address] Becky Josue LIPID PROFILEon 09-24-2022 CHOL-HDL RATIO NORM SEE BELOW Normal [facility] Comment on above: Result Comment: 3.3 - 4.4 LOW RISK 4.4 - 7.1 AVERAGE RISK 7.1 - 11.0 MODERATE RISK >11.0 HIGH RISK Performed By: #### L IPID, CMP, TSH, T7 ####[facility] [address] [place], [place] [address]MmBrayan Josue Cholesterol [Mass/Vol] 171 mg/dL Normal <=200 [facility] Comment on above: Performed By: #### L IPID, CMP, TSH, T7 ####[facility] [address] [place], [place] [address]FxBrayan Josue Cholesterol in HDL [Mass/Vol] 38 mg/dL Critically low 40-60 [facility] Comment on above: Performed By: #### L IPID, CMP, TSH, T7 ####[facility] [address] [place] [id number]. Becky Josue Cholesterol in LDL [Mass/Vol] 101.6 mg/dL Normal [facility] Comment on above: Performed By: #### L IPID, CMP, TSH, T7 ####[facility] [address] [place] [id number]. Becky Josue Cholesterol.total/C holesterol in HDL [Mass ratio] 4.5 {ratio} Normal [facility] Comment on above: Performed By: #### L IPID, CMP, TSH, T7 ####[facility] [address] [place] [id number]. Becky Josue HDL NORMAL > or = 60 mg/dl - LO W CARDIOVASCULAR RISK <40 mg/dl - HIGH CARDIOVASCULAR RISK Normal [facility] Comment on above: Performed By: #### L IPID, CMP, TSH, T7 ####[facility] [address] [place] [id number]. Becky Josue LDL CALC NORMAL SEE BELOW Normal [facility] Comment on above: Result Comment: <100 mg/dl OPTIMAL 100 - 129 mg/dl NEAR OR ABOVE OPTIMAL 130 - 159 mg/dl BORDERLINE HIGH 160 - 189 mg/dl HIGH >190 mg/dl VERY HIGH Performed By: #### L IPID, CMP, TSH, T7 ####[facility] [address] [place] [id number]. Becky Josue Triglyceride [Mass/Vol] 157 mg/dL Critically high <=150 [facility] Comment on above: Performed By: #### L IPID, CMP, TSH, T7 ####[facility] [address] [place] [id number]. Becky Josue VLDL CALC 31.4 mg/dL Normal [facility] Comment on above: Performed By: #### L IPID, CMP, TSH, T7 ####[facility] [address] [place] [id number]. Becky Josue PROF 14(COMP METB)on 022 Albumin [Mass/Vol] 3.4 g/dL Normal 3.4-5.0 [facility] Comment on above: Performed By: #### L IPID, CMP, TSH, T7 ####[facility] [address] [place] [address]Dr. Becky Joselo Albumin/Globulin [Mass ratio] 0.9 {ratio} Normal [facility] Comment on above: Performed By: #### L IPID, CMP, TSH, T7 ####[facility] [address] [place] [address]Dr. Becky Josue ALP [Catalytic activity/Vol] 106 U/L Normal 46-116 [facility] Comment on above: Performed By: #### L IPID, CMP, TSH, T7 ####[facility] [address] [place] [address]Dr. Kellenkwadwo Josue ALT [Catalytic activity/Vol] 39 U/L Normal 14-59 [facility] Comment on above: Performed By: #### L IPID, CMP, TSH, T7 ####[facility] [address] [place], [place] [address]Dr. Becky Josue Anion gap [Moles/Vol] 6.9 mmol/L Normal [facility] Comment on above: Performed By: #### L IPID, CMP, TSH, T7 ####[facility] [address] [place], [place] [address]Dr. Becky Joselo AST [Catalytic activity/Vol] 44 U/L Critically high 15-37 [facility] Comment on above: Performed By: #### L IPID, CMP, TSH, T7 ####[facility] [address] [place], [place] [address]Dr. Kellenkwadwo Josue Bilirubin [Mass/Vol] 1.1 mg/dL Critically high 0.2-1.0 [facility] Comment on above: Performed By: #### L IPID, CMP, TSH, T7 ####[facility] [address] [place], [place] [address]Dr. Becky Josue Calcium [Mass/Vol] 9.4 mg/dL Normal 8.5-10.1 [facility] Comment on above: Performed By: #### L IPID, CMP, TSH, T7 ####[facility] [address] [place] [id number]. Becky Joselo Chloride [Moles/Vol] 103 mmol/L Normal 98-107 [facility] Comment on above: Performed By: #### L IPID, CMP, TSH, T7 ####[facility] [address] [place] [address]Dr. Becky Josue CO2 [Moles/Vol] 31.3 mmol/L Normal 21.0-32.0 [facility] Comment on above: Performed By: #### L IPID, CMP, TSH, T7 ####[facility] [address] [place] [id number]. Kellenkwadwo Josue Creatinine [Mass/Vol] 0.72 mg/dL Normal 0.55-1.02 [facility] Comment on above: Performed By: #### L IPID, CMP, TSH, T7 ####[facility] [address] [place] [address]Dr. Becky Josue EGFR-AF BELARUSIAN >60 Normal >=60 [facility] Comment on above: Performed By: #### L IPID, CMP, TSH, T7 ####[facility] [address] [place] [address]Dr. Becky Joselo EGFR-NON AF BELARUSIAN >60 Normal >=60 [facility] Comment on above: Performed By: #### L IPID, CMP, TSH, T7 ####[facility] [address] [place] [address]Dr. Becky Josue Globulin (S) [Mass/Vol] 4.0 g/dL Normal [facility] Comment on above: Performed By: #### L IPID, CMP, TSH, T7 ####[facility] [address] [place] [id number]. Becky Josue Glucose [Mass/Vol] 315 mg/dL Critically high 74-106 [facility] Comment on above: Performed By: #### L IPID, CMP, TSH, T7 ####[facility] [address] [place] [id number]. Becky Josue Potassium [Moles/Vol] 4.2 mmol/L Normal 3.5-5.1 [facility] Comment on above: Performed By: #### L IPID, CMP, TSH, T7 ####[facility] [address] [place] [address]Dr. Becky Josue Protein [Mass/Vol] 7.4 g/dL Normal 6.4-8.2 [facility] Comment on above: Performed By: #### L IPID, CMP, TSH, T7 ####[facility] [address] [place] [address]Dr. Becky Josue Sodium [Moles/Vol] 137 mmol/L Normal 136-145 [facility] Comment on above: Performed By: #### L IPID, CMP, TSH, T7 ####[facility] [address] [place] [address]Dr. Becky Josue Urea nitrogen [Mass/Vol] 14.0 mg/dL Normal 7.0-18.0 [facility] Comment on above: Performed By: #### L IPID, CMP, TSH, T7 ####[facility] [address] [place] [address]Dr. Becky Josue Urea nitrogen/Creatinine [Mass ratio] 19.4 mg/mg Normal [facility] Comment on above: Performed By: #### L IPID, CMP, TSH, T7 ####[facility] [address] [place] [address]Dr. Becky Josue TSHon 09-24-2022 TSH 2.117 uIU/mL Normal 0.358-3.740 [facility] Comment on above: Performed By: #### L IPID, CMP, TSH, T7 ####[facility] [address] [place] [address]Dr. Becky Josue VITAMIN D 25 OHon 09-24-2022 VIT D 25-OH 21.3 ng/mL Normal [facility] Comment on above: Performed By: #### I MARLYN VITAD #### [facility] [address] [place] [address] [address] Becky Josue VIT D RANGES SEE BELOW Normal [facility] Comment on above: Result Comment: <20 ng/mL Vit D deficient 20 - <30 ng/mL Vit D insufficient 30 - 100 ng/mL Vit D sufficient >100 ng/mL Potential Toxicity Performed By: #### I MARLYN, VITAD #### [facility] [address] [place], [place] [address] Dr. Becky HOLLOWAY Quick Testingon 2020 Result Negative Spout Other MG MAMM SCREEN 3D SVEN CADon 10-12-2021 MG MAMM SCREEN 3D SVEN CAD Patient: SHIRLEY BRIAN Exam Date: 10/12/2021 : 1955 Gender:F Ordering : DR MARYJANE VALENCIA . Admission #: [id number] Family : Order #: [id number] CLICK HERE TO VIEW EXAM RADIOLOGY REPORT [...] breast cancer at age 66. LOCATION: [facility] BREAST COMPOSITION: Scattered areas fibroglandular density. FINDINGS: [...] M.D. on 10/13/2021 at 12:22 Normal [facility] CBC AUTO DIFFon 10-03-2021 BASO # 0.0 103/ul Normal 0.0-0.1 [facility] Comment on above: Performed By: #### C BC #### [facility] [address] [place] [address] Dr. Becky Josue Basophils/100 WBC (Bld) 0.4 % Normal 0.2-2.0 [facility] Comment on above: Performed By: #### C BC #### [facility] [address] [place] [address] Dr. Becky Josue EO # 0.2 103/ul Normal 0.0-0.7 [facility] Comment on above: Performed By: #### C BC #### [facility] [address] [place] [address] Dr. Becky Josue Eosinophils/100 WBC (Bld) 4.1 % Normal 0.9-7.0 [facility] Comment on above: Performed By: #### C BC #### [facility] [address] [place] [address] Dr. Becky Josue Erythrocyte distribution width (RBC) [Ratio] 14.5 % Normal 11.0-15.0 [facility] Comment on above: Performed By: #### C BC #### [facility] [address] [place] [address] Dr. Becky Josue Hematocrit (Bld) [Volume fraction] 43.5 % Normal 36.0-48.0 [facility] Comment on above: Performed By: #### C BC #### [facility] [address] [place] [address] Dr. Becky Josue Hemoglobin (Bld) [Mass/Vol] 13.7 g/dL Normal 12.0-16.0 [facility] Comment on above: Performed By: #### C BC #### [facility] [address] [place] [address] Dr. Becky oJsue IG # 0.02 10e3/ul Normal 0.00-0.03 [facility] Comment on above: Performed By: #### C BC #### [facility] [address] [place] [address] Dr. Becky Josue IG % 0.4 % Normal 0.0-0.5 [facility] Comment on above: Performed By: #### C BC #### [facility] [address] [place] [address] Dr. Becky Josue LYMPH # 1.6 103/ul Normal 1.2-3.8 [facility] Comment on above: Performed By: #### C BC #### [facility] [address] [place] [address] Dr. Becky Josue Lymphocytes/100 WBC (Bld) 32.0 % Normal 20.5-60.0 [facility] Comment on above: Performed By: #### C BC #### [facility] [address] [place] [address] Dr. Becky Josue MANUAL DIFF REQ NO Normal [facility] Comment on above: Performed By: #### C BC #### [facility] [address] [place] [address] Dr. Becky Josue MCH (RBC) [Entitic mass] 29.5 pg Normal 26.7-34.0 [facility] Comment on above: Performed By: #### C BC #### [facility] [address] [place] [address] Dr. Becky Josue MCHC (RBC) [Mass/Vol] 31.5 g/dL Normal 29.9-35.2 [facility] Comment on above: Performed By: #### C BC #### [facility] [address] [place] [address] Dr. Becky Josue MCV (RBC) [Entitic vol] 93.5 fL Normal 81.0-99.0 [facility] Comment on above: Performed By: #### C BC #### [facility] [address] [place] [address] Dr. Becky Josue MONO # 0.4 103/ul Normal 0.3-0.8 [facility] Comment on above: Performed By: #### C BC #### [facility] [address] [place] [address] Dr. Becky Josue Monocytes/100 WBC (Bld) 8.8 % Normal 1.7-12.0 [facility] Comment on above: Performed By: #### C BC #### [facility] [address] [place] [address] Dr. Becky Josue NEUT # 2.7 103/ul Normal 1.4-6.5 [facility] Comment on above: Performed By: #### C BC #### [facility] [address] [place] [address] [address] Becky Josue Neutrophils/100 WBC (Bld) 54.3 % Normal 43.0-75.0 [facility] Comment on above: Performed By: #### C BC #### [facility] [address] [address] [address] Becky Josue Platelet mean volume (Bld) [Entitic vol] 10.4 fL Normal 9.5-13.5 [facility] Comment on above: Performed By: #### C BC #### [facility] [address] [address] [address] Becky Josue PLT 158 103/ul Normal 150-450 [facility] Comment on above: Performed By: #### C BC #### [facility] [facility] [address] [place] [address] Dr. Becky Josue RBC 4.65 106/ul Normal 4.20-5.40 [facility] Comment on above: Performed By: #### C BC #### [facility] [address] [place] [address] Dr. Becky Josue WBC 4.9 103/ul Normal 4.0-11.0 [facility] Comment on above: Performed By: #### C BC #### [facility] [address] [place] [address] Dr. Becky Josue FREE THYROXINE INDEX T7on FTI 2.79 Normal [facility] Comment on above: Performed By: #### L IPID, CMP, T7, TSH ####[facility] [id number] [place] [id number]. Becky Josue T3U 30.0 % Normal 23.5-40.5 [facility] Comment on above: Performed By: #### L IPID, CMP, T7, TSH ####[facility] [id number] [place] [id number]. Becky Josue T4 [Mass/Vol] 9.30 ug/dL Normal 5.53-11.00 [facility] Comment on above: Performed By: #### L IPID, CMP, T7, TSH ####[facility] [id number] [place], [place] [address]KuDr. Becky Josue GLYCOHEMOGLOBIN A1Con 2020 ADA RECOMMENDATION ADA THERAPEUTIC TARGET 6.0 - 7.0 ACTION SUGGESTED > 7.0 Normal [facility] Comment on above: Performed By: #### A 1C #### [facility] [address] [address] [address] Becky Josue Glucose [Mass/Vol] 229 mg/dL Normal [facility] Comment on above: Performed By: #### A 1C #### [facility] [address] [address] [address] Becky Josue HbA1c (Bld) [Mass fraction] 9.6 % Critically high <=6.0 [facility] Comment on above: Performed By: #### A 1C #### [facility] [address] [address] [address] Becky Josue IRONon 10-03-2021 Iron [Mass/Vol] 62.0 ug/dL Normal 37.0-170.0 [facility] Comment on above: Performed By: #### I MARLYN #### [facility] [address] [address] [address] Becky Josue LIPID PROFILEon 10-03-2021 CHOL-HDL RATIO NORM SEE BELOW Normal [facility] Comment on above: Result Comment: 3.3 - 4.4 LOW RISK 4.4 - 7.1 AVERAGE RISK 7.1 - 11.0 MODERATE RISK >11.0 HIGH RISK Performed By: #### L IPID, CMP, T7, TSH #### [facility] [address] [address] [address] Becky Josue Cholesterol [Mass/Vol] 172 mg/dL Normal <=200 [facility] Comment on above: Performed By: #### L IPID, CMP, T7, TSH #### [facility] [address] [address] [address] Becky Josue Cholesterol in HDL [Mass/Vol] 38 mg/dL Normal [facility] Comment on above: Performed By: #### L IPID, CMP, T7, TSH #### [facility] [address] [address] [address] Becky Josue Cholesterol in LDL [Mass/Vol] 89.0 mg/dL Normal [facility] Comment on above: Performed By: #### L IPID, CMP, T7, TSH #### [facility] [address] [address] [address] Becky Josue Cholesterol.total/C holesterol in HDL [Mass ratio] 4.5 {ratio} Normal [facility] Comment on above: Performed By: #### L IPID, CMP, T7, TSH #### [facility] [address] [address] [address] Becky Josue HDL NORMAL > or = 60 mg/dl - LO W CARDIOVASCULAR RISK <40 mg/dl - HIGH CARDIOVASCULAR RISK Normal [facility] Comment on above: Performed By: #### L IPID, CMP, T7, TSH #### [facility] [address] [address] [address] Becky Josue LDL CALC NORMAL SEE BELOW Normal [facility] Comment on above: Result Comment: <100 mg/dl OPTIMAL 100 - 129 mg/dl NEAR OR ABOVE OPTIMAL 130 - 159 mg/dl BORDERLINE HIGH 160 - 189 mg/dl HIGH >190 mg/dl VERY HIGH Performed By: #### L IPID, CMP, T7, TSH #### [facility] [address] [address] [address] Becky Josue Triglyceride [Mass/Vol] 225 mg/dL Critically high <=150 [facility] Comment on above: Performed By: #### L IPID, CMP, T7, TSH #### [facility] [address] [address] [address] Becky Josue VLDL CALC 45.0 mg/dL Normal [facility] Comment on above: Performed By: #### L IPID, CMP, T7, TSH #### [facility] [address] [address] [address] Becky Josue PROF 14(COMP METB)on 11-13-2 021 Albumin [Mass/Vol] 3.1 g/dL Critically low 3.5-5.0 [facility] Comment on above: Performed By: #### L IPID, CMP, T7, TSH #### [facility] [address] [address] [address] Becky Josue Albumin/Globulin [Mass ratio] 0.8 {ratio} Normal [facility] Comment on above: Performed By: #### L IPID, CMP, T7, TSH #### [facility] [address] [address] [address] Becky Josue ALP [Catalytic activity/Vol] 100 U/L Normal 38-126 [facility] Comment on above: Performed By: #### L IPID, CMP, T7, TSH #### [facility] [address] [place] [address] Dr. Becky Josue ALT [Catalytic activity/Vol] 35 U/L Normal 9-52 [facility] Comment on above: Performed By: #### L IPID, CMP, T7, TSH #### [facility] [address] [place] [address] Dr. Becky Josue Anion gap [Moles/Vol] 13.0 mmol/L Normal [facility] Comment on above: Performed By: #### L IPID, CMP, T7, TSH #### [facility] [address] [place] [address] Dr. Becky Josue AST [Catalytic activity/Vol] 27 U/L Normal 14-36 [facility] Comment on above: Performed By: #### L IPID, CMP, T7, TSH #### [facility] [address] [place] [address] Dr. Becky Josue Bilirubin [Mass/Vol] 0.8 mg/dL Normal 0.2-1.3 [facility] Comment on above: Performed By: #### L IPID, CMP, T7, TSH #### [facility] [address] [address] [address] Becky Josue Calcium [Mass/Vol] 8.9 mg/dL Normal 8.4-10.2 [facility] Comment on above: Performed By: #### L IPID, CMP, T7, TSH #### [facility] [address] [place] [address] Dr. Becky Josue Chloride [Moles/Vol] 103 mmol/L Normal 98-107 [facility] Comment on above: Performed By: #### L IPID, CMP, T7, TSH #### [facility] [address] [place] [address] Dr. Becky Josue CO2 [Moles/Vol] 30.3 mmol/L Critically high 22.0-30.0 [facility] Comment on above: Performed By: #### L IPID, CMP, T7, TSH #### [facility] [address] [place] [address] Dr. Becky Josue Creatinine [Mass/Vol] 0.72 mg/dL Normal 0.52-1.04 [facility] Comment on above: Performed By: #### L IPID, CMP, T7, TSH #### [facility] [address] [place] [address] Dr. Becky Josue EGFR-AF BELARUSIAN >60 Normal >=60 [facility] Comment on above: Performed By: #### L IPID, CMP, T7, TSH #### [facility] [address] [place] [address] Dr. Becky Josue EGFR-NON AF BELARUSIAN >60 Normal >=60 [facility] Comment on above: Performed By: #### L IPID, CMP, T7, TSH #### [facility] [address] [place] [address] Dr. Becky Josue Globulin (S) [Mass/Vol] 3.9 g/dL Normal [facility] Comment on above: Performed By: #### L IPID, CMP, T7, TSH #### [facility] [address] [place] [address] Dr. Becky Josue Glucose [Mass/Vol] 261 mg/dL Critically high 74-106 [facility] Comment on above: Performed By: #### L IPID, CMP, T7, TSH #### [facility] [address] [place] [address] Dr. Becky Josue Potassium [Moles/Vol] 4.3 mmol/L Normal 3.4-5.0 [facility] Comment on above: Performed By: #### L IPID, CMP, T7, TSH #### [facility] [address] [address] [address] Becky Josue Protein [Mass/Vol] 7.0 g/dL Normal 6.1-8.2 [facility] Comment on above: Performed By: #### L IPID, CMP, T7, TSH #### [facility] [address] [address] [address] Becky Josue Sodium [Moles/Vol] 142 mmol/L Normal 137-145 [facility] Comment on above: Performed By: #### L IPID, CMP, T7, TSH #### [facility] [address] [address] [address] Becky Josue Urea nitrogen [Mass/Vol] 22.0 mg/dL Critically high 7.0-17.0 [facility] Comment on above: Performed By: #### L IPID, CMP, T7, TSH #### [facility] [address] [address] [address] Becky Josue Urea nitrogen/Creatinine [Mass ratio] 30.6 mg/mg Normal [facility] Comment on above: Performed By: #### L IPID, CMP, T7, TSH #### [facility] [address] [address] [address] Becky Josue TSHon 10-03-2021 TSH 2.809 uIU/mL Normal 0.470-4.680 [facility] Comment on above: Performed By: #### L IPID, CMP, T7, TSH ####[facility] [id number] [address]Dr. Becky Josue TSH RANGE SEE BELOW Normal [facility] Comment on above: Result Comment: <0.3 4 UIU/ml HYPERTHYROID 0.34-5.60 UIU/ml EUTHYROID >5.60 UIU/ml HYPOTHYROID Performed By: #### L IPID, CMP, T7, TSH ####[facility] [id number] [place], [place] [address]RuBrayan Josue Vital Signs Date Time Vital Sign Value Performing Clinician Facility 10-03-2024 14:06-0500 Blood Pressure Location [facility] [employer] [facility] 10-03-2024 14:06-0500 Diastolic blood pressure 68 mm[Hg] [employer] [employer] [facility] 10-03-2024 14:06-0500 Heart rate 72 /min [employer] [facility] 10-03-2024 14:06-0500 Respiratory rate 16 /min [employer] [facility] 10-03-2024 14:06-0500 Systolic blood pressure 132 mm[Hg] [employer] [facility] 02-16-2022 12:30-0400 Body height 167.64 cm Ashley Cox Other [facility] 02-16-2022 12:30-0400 Body mass index (BMI) [Ratio] 34.21 kg/m2 Ashley Cox [facility] 02-16-2022 12:30-0400 Body temperature 97.8 [degF] Ashley Cox [facility] 02-16-2022 12:30-0400 Body weight 96.16 kg Ashley Cox [facility] 02-16-2022 12:30-0400 Respiratory rate 18 /min Ashley Cox [facility] 02-16-2022 12:30-0400 SaO2% (BldA) [Mass fraction] 97 % Ashley Cox Other [facility] Encounters Encounter Date Encounter Type Care Provider Facility Start: 11-09-2024 End: 11-09-2024 ambulatory [facility] Start: 11-07-2024 End: 11-07-2024 ambulatory Manoj Damon Facility:[facility] Start: 11-07-2024 End: 11-07-2024 ambulatory Manoj DAMON Facility::[id number] Start: 11-02-2024 ambulatory [facility] Start: 10-22-2024 ambulatory [facility] Start: 10-08-2024 ambulatory [facility] Start: 10-03-2024 End: 10-03-2024 ambulatory Maryjane Valencia Facility:[facility] Start: 10-03-2024 End: 10-03-2024 Patient encounter procedure Manoj DAMON [facility] [place] Start: 09-13-2024 ambulatory [facility] Start: 09-03-2024 ambulatory [facility] Start: 08-06-2024 End: 08-06-2024 ambulatory [facility] Start: 07-03-2024 End: 07-03-2024 ambulatory [facility] Start: 04-19-2024 End: 04-19-2024 ambulatory [facility] Start: 09-24-2022 End: 09-25-[address] MARYJANE VALENCIA Facility: Start: 02-16-2022 End: 02-16-2022 ambulatory Ashley Cox Other [facility] Start: 02-16-2022 Office outpatient vi sit 15 minutes Ashley Cox [facility] Start: 10-26-2021 End: 10-26-2021 ambulatory Soco Hernandez Other [facility] Other Start: 10-26-2021 Office outpatient vi sit 5 minutes Soco Hernandez [facility] Start: 10-12-2021 End: 10-13-[address] MARYJANE VALENCIA Facility:[facility] Start: 10-08-2021 Encounter for genera l adult medical examination without abnormal findings DR MARYJANE VALENCIA [facility] Start: 10-03-2021 End: 10-04-[address] [...] (COVID-19 ) mRNA BNT-162b2 vax Manoj NILL [facility] 01-25-2021 SARS-CoV-2 (COVID-19 ) Ad26 vaccine, recombinant Manoj NILL [facility] Payers Date Payer Category Payer Self-pay 1958 Unknown [id number]. [id number] 1955 Unknown [id number] 2.16.84 [id number] 1955 Unknown [id number] 2.16.84 [id number] 1955 Unknown [id number] 2.16.84 [id number] 1955 Unknown [id number] 2.16.8 [id number] 1955 Unknown [id number] 2.16.8 [id number] 1955 Unknown [id number] 2.16.8 [id number] Medicare [id number] 2.1 [id number] Unknown [id number] 2.16.8 [id number] Social History Date Type Detail Facility Sex Assigned At [facility] Start: 10-03-2024 Tobacco smoking status Never s moked tobacco (finding) [facility] Tobacco smoking status Never [facility] Functional Status Date Assessment Result Facility 10-03-2024 Functional Status N/A [facility] Clinical Notes 10-26-2021 to 11-09-2024 Note Date & Type Note Facility 11-09-2024 Note [place] Cardiology - [facility] Subjective Shirleyjc Brian is a 69 [...] RVR when she was admitted to the [facility] with diarrhea due to C. difficile colitis [...] m (more content not included)... [facility] 10-03-2024 Note General Surgery Offi ce/Clinic Note [...] 5 mg oral (more content not included)... [facility] Comment on above: Result Comment: Elec tronically Signed By: JOSE ALBERTO MARRERO, Manoj Wilson\Date and Time Signed: 10/03/24 14:54 EST 08-06-2024 Note LOOP IMPLANT PROCEDU RE NOTE DATE OF PROCEDURE: 08/06/24 PERFORMING PHYSICIAN: Dr. Rogers Catalan IMPRESSION PRINTER: REJI INDICATIONS FOR PROCEDURE: 1. SVT/AF surveillance [...] the sternum on the left using the [place] tool. The loop recorder was then injected [...] Rogers Catalan MD Cardiac Electrophysiology. [facility] 07-03-2024 Note [place] Electrophysiology Consult Note [facility] Reason for visit: Afib 07/03/24 Pt is doing well and occasionally feels palpitations. HPI: Shirley Brian is a 68 y.o. year old with past medical history of Hypertension, diabetes, dyslipidemia, palpitations. She was recently seen at the [facility] for A-fib RVR as she was admitted [...] show any evidence of reversible ischemia. below [id number] at least 4 for age, gender, hypertension, [...] ear (more content not included)... [facility] 04-19-2024 Note [place] Cardiology - [facility] Subjective Shirley Brian is a [...] RVR when she was admitted to the [facility] with diarrhea due to C. difficile colitis [...] V3, (more content not included)... [facility] 04-19-2024 Note Patient here for 6 m [...] systems reviewed and are negative. [facility] 02-16-2022 Evaluation note Encounter Date Diagnosis Assessment [...] exam and duration of symptoms. May use [place] or Flonase as directed. May use Zofran [...] Patient care instructions given in writting by [facility] document [facility] 12-06-2021 Evaluation note* Encounter Date Diagnosis [...] Patient care instructions given in writting by [facility] document. [facility] Evaluation + Plan note No data available for this section [facility] [employer] History general Narrative - Reported* Type Description Date Medical History Diabetes Medical History HTN (hypertension) Medical History Anxiety Medical History Uterine cancer Surgical History hysterectomy Surgical History C section Surgical History tonsillectomy Surgical History appendectomy Surgical History cholecystectomy Surgical History colonoscopy Surgical History biopsy Hospitalization History pneumonia Hospitalization History see above [facility] Hospital Discharge instructions No data available for this section [facility] [place] Progress note No data available for this section [facility] [employer] Summary Purpose Family History No Family History [...] CREATED AUTHOR AUTHOR'S ORGANIZ ATION 11/10/2024 [facility] DATE CREATED AUTHOR AUTHOR'S ORGANIZ ATION 11/12/[address] [facility] DATE CREATED AUTHOR AUTHOR'S ORGANIZ ATION 11/14/2024 [facility] Patient Care team informatio n (unrecognized section and content) Personnel Name: Maryjane Valencia MD Address: Address: [address] [place] [address] FOR RECORDS PERTAINING TO PATIENTS WHO [...] BE BASED ON THE PRIMARY CLINICAL RECORDS. [facility]. provides no warranty or guarantee of the accuracy or completeness of information in this document.
[2024-11-15] VITALS (139 sets, daily range): BP systolic 71–180; BP diastolic 35–107; PULSE 77–179; TEMP 36.4; O2SAT 91–99; BMI 33.8
[2024-11-15 00:02] LABS: Bilirubin Urine SMALL (NEGATIVE); Blood Urine NEGATIVE (NEGATIVE); Clarity Urine CLEAR (CLEAR); Color Urine YELLOW (YELLOW); Glucose Urine UA >=1000 mg/dL (NEGATIVE); Ketones Urine TRACE mg/dL (NEGATIVE); Leukocyte Esterase Urine TRACE (NEGATIVE); Nitrite Urine NEGATIVE (NEGATIVE); Protein Urine TRACE mg/dL (NEG/TRACE); Specific Gravity Urine 1.025 (1.005-1.025)
[2024-11-15 00:07] LABS: Urine Microscopic Indicated YES
[2024-11-15 00:10] LABS: Bacteria Urine MODERATE #/HPF (NONE SEEN); Cast Seen? NONE SEEN #/LPF (NONE SEEN); Crystals Seen? None Seen #/HPF (None Seen); Mucus Urine NONE SEEN (NONE SEEN); RBC Urine 0-2 #/HPF (0-2); Squamous Epithelial Cell Urine RARE #/LPF (NONE/RARE); Urine Culture Indicated YES
[2024-11-15] MEDS: 0.9 % SODIUM CHLORIDE 1,000 ML 1000 ML IV ×2 (00:30→09:02)
[2024-11-15 01:50] LABS: Hematocrit 24.8 % (36.0-48.0); Hemoglobin 7.5 g/dL (12.0-16.0)
[2024-11-15] MEDS: NOREPINEPHRINE BITARTRATE/D5W 4 MG/250 ML PREMIX 30 MG IV (02:16)
[2024-11-15] MEDS: PANTOPRAZOLE SODIUM 40 MG VIAL IV ×2 (02:16→13:51)
[2024-11-15] MEDS: 0.9 % SODIUM CHLORIDE 1,000 ML 125 ML IV (02:18)
[2024-11-15] MEDS: DILTIAZEM HCL 25 MG/5 ML VIAL 5 MG IV (04:09)
[2024-11-15 06:41] LABS: Hematocrit 27.2 % (36.0-48.0); Hemoglobin 8.1 g/dL (12.0-16.0); Mean Corpuscular HGB Conc 29.8 g/dL (29.9-35.2); Mean Corpuscular Volume 80.5 fL (81.0-99.0); Mean Platelet Volume 11.2 fL (9.5-13.5); Platelet Count 202 10^3/uL (150-450); Red Blood Count 3.38 10^6/uL (4.20-5.40); Red Cell Distribution Width 20.6 % (11.0-15.0); White Blood Count 13.3 10^3/uL (4.0-11.0)
[2024-11-15 06:50] LABS: Reticulocyte Pct Auto 2.22 % (0.60-3.10)
[2024-11-15 07:05] LABS: Alanine Aminotransferase 21 U/L (14-59); Albumin Globulin Ratio 0.4; Albumin Level 1.6 g/dL (3.4-5.0); Alkaline Phosphatase 200 U/L (46-116); Anion Gap 19.5; Aspartate Amino Transferase 45 U/L (15-37); BUN Creatinine Ratio 28.6; Bilirubin Total 1.7 mg/dL (0.2-1.0); Calcium 7.7 mg/dL (8.5-10.1); Carbon Dioxide 19.2 mmol/L (21.0-32.0); Chloride 98 mmol/L (98-107); Estimated GFR (African America 31 (>=60 mL/min/1.73m^2); Estimated GFR (Non-African Ame 26 (>=60 mL/min/1.73m^2); Globulin 4.1 g/dL; Glucose 418 mg/dL (74-106); Potassium 4.7 mmol/L (3.5-5.1); Sodium 132 mmol/L (136-145); Total Protein 5.7 g/dL (6.4-8.2)
[2024-11-15 07:06] LABS: Band Neutrophils Absolute 1.2 10^3/uL (0.0-0.3); Dohle Bodies 1+; Lymphocytes Absolute Manual 0.39 10^3/uL (1.20-3.80); Metamyelocytes Absolute Manual 0.13; Monocytes Absolute Manual 0.39 10^3/uL (0.30-0.80); Segmented Neut Absolute Manual 11.17 10^3/uL (1.4-6.5)
[2024-11-15 07:22] LABS: Lactate/Lactic Acid 4.5 mmol/L (0.4-2.0)
--- NOTE | 2024-11-15 07:26 | CA_ITS ---
Patient Name: CONNIE WISE MR#: [id number] : 1955 Exam Date: 11/15/2024 Ordering Doctor: DR Harry Valencia . ECHOCARDIOGRAM REPORT PROCEDURE: CA ECHO DOPPLER COMPLETE INDICATIONS: Dyspnea, elevated BNP, atrial fibrillation, diabetes, sleep apnea, hypertension COMPARISON: None. DESCRIPTION: COMPLETE ECHOCARDIOGRAM Real-time transthoracic echocardiography with 2D, M-mode, spectral and color flow Doppler performed. QUALITY: Technical quality was good. LEFT VENTRICLE: Normal chamber size. Borderline left ventricular hypertrophy. Normal systolic function. LV EF: Normal left ventricular ejection fraction, (>55%). DIASTOLIC: Not adequately assessed due to heart rhythm. ATRIAL SEPTUM: LEFT ATRIUM: Moderate dilatation. RIGHT ATRIUM: Moderate dilatation. RIGHT VENTRICLE: Mild dilatation. Normal systolic function. TRICUSPID VALVE: Normal mobility and thickness. No stenosis with mild regurgitation. Doppler studies reveal severely (>60) elevated right sided pressures. RVSP 72 mmHg MITRAL VALVE: Normal mobility and thickness. No evidence of mitral valve stenosis. There is no mitral annular calcification. AORTIC VALVE: Normal trileaflet appearance. Thickened aortic valve. Normal leaflet mobility. No evidence of aortic valve stenosis. Mild aortic regurgitation. AORTIC ROOT: Normal diameter and appearance. Ascending aorta is normal in size. PULMONIC VALVE: Normal thickness and mobility. No stenosis. Trivial regurgitation. PERICARDIUM: No evidence of pericardial effusion. IVC: IVC is dilated (2.6 cm), does not collapse. PLEURA: CONCLUSION: 1. Normal left ventricular size and systolic function. LVEF is estimated at 55 to 60%. 2. Mildly dilated right ventricle with normal systolic function. 3. Moderate biatrial dilatation. 4. Mild aortic and tricuspid regurgitation. 5. Elevated right-sided pressures. RVSP is 72 mmHg. Adult Echocardiography Procedure Report Left Ventricle LVEDD (3.7 - 5.6 cm): 4.55 cm LVESD (2.2 - 4.0 cm): 2.99 cm LVIVS thickness (0.6 - 1.2 cm): 1.01 cm LVPW thickness (0.5 - 1.0 cm): 0.76 cm LVOT Max Gradient: 2.49 mm[Hg], 3.11 mm[Hg] LVOT Area (cm2): 0.84 m/s Peak Velocity (LVOT): 0.79 m/s, 0.88 m/s LVOT Diameter 2.45 cm Left Atrium LA Volume Index (2D A2C): 41.71 ml/m2 Left Atrium Systolic Dimension: 4.37 cm Mitral Valve Mitral Valve E-Wave Peak Velocity: 1.21 m/s Right Ventricle Aorta AO Root Diam: 3.37 cm Ascending Ao Diam: 2.81 cm Aortic Valve AoV Area (Peak Darryl): 2.88 cm2, 3.05 cm2, 2.74 cm2 Peak Velocity(Antegrade Flow): 1.22 m/s, 1.52 m/s Peak Gradient(Antegrade Flow): 5.96 mm[Hg], 9.25 mm[Hg] Tricuspid Valve Peak Velocity (Regurgitant Flow): 3.76 m/s Pulmonic Valve Peak Velocity: 0.80 m/s Peak Gradient: 3.03 mm[Hg], 1.63 mm[Hg], 2.44 mm[Hg], 3.41 mm[Hg] Right Atrium Right Atrium Systolic Pressure: 86.66 ml, 86.66 ml Dictated by: Alex Muñoz M.D. on 11/15/2024 at 18:31 Approved by: Alex Muñoz M.D. on 11/15/2024 at 18:34
[2024-11-15 08:01] LABS: Troponin I High Sensitivity 11.9 pg/mL (4.0-51.3)
[2024-11-15 08:08] LABS: Glucometer 439 mg/dL (74-106)
--- NOTE | 2024-11-15 08:13 | CT_ITS ---
[address] [address] Patient Name: CONNIE WISE MRN: [id number] date: 1955 Sex: F Assigned Patient Location: ICU Current Patient Location: ICU Accession/Order Number: [id number] Exam Date: 11/15/2024 08:35 Report Date: 11/15/2024 09:36 At the request of: MARYJANE REYNOLDS Procedure: CT soft tissue neck wo con EXAMINATION: CT soft tissue neck wo con HISTORY: neck swelling COMPARISON: No relevant comparison available. TECHNIQUE: Axial, Coronal, and Sagittal CT images created without IV contrast. Dose reduction techniques were achieved by using automated exposure control and/or adjustment of mA and/or kV according to patient size and/or use of iterative reconstruction technique. FINDINGS: NASOPHARYNX: No asymmetry of the fossae of Rosenmuller and torus tubarius. ORAL CAVITY: No visible mass. OROPHARYNX: No asymmetry of the facial and lingual tonsils. HYPOPHARYNX: No mass or other visible lesion. LARYNX: No mass or asymmetry of the vocal cords. SINUSES: No significant fluid or mucosal thickening. NECK GLADS: No visible abnormality of the parotid, submandibular, and thyroid glands. LYMPH NODES: No pathological-appearing or enlarged lymph nodes. VASCULATURE: No suspicious abnormality. BONES: Multilevel moderate-marked degenerative changes of cervical spine. Small focus of nitrogen versus free air posterior to the spinous process of C6 and C7; nonspecific, possibly air within vessels. No convincing inflammatory changes. OTHER: No additional imaging findings. CT/CT soft tissue neck wo con IMPRESSION: 1. No appreciable mass, fluid collection, or lymphadenopathy. 2. Multilevel moderate-marked degenerative changes of cervical spine resulting in bone encroachment on the central canal and neural foramen. Electronically authenticated by: LON BOLTON Date: 11/15/2024 09:36
[2024-11-15 08:20] LABS: A. calcoaceticus-baumannii Cpx NOT DETECTED (NOT DETECTE); Bacteroides fragilis NOT DETECTED (NOT DETECTE); Candida albicans NOT DETECTED (NOT DETECTE); Candida auris NOT DETECTED (NOT DETECTE); Candida glabrata NOT DETECTED (NOT DETECTE); Candida krusei NOT DETECTED (NOT DETECTE); Candida parapsilosis NOT DETECTED (NOT DETECTE); Candida tropicalis NOT DETECTED (NOT DETECTE); Cryptococcus neoformans/gattii NOT DETECTED (NOT DETECTE); Enterobacter cloacae complex NOT DETECTED (NOT DETECTE); Enterobacterales NOT DETECTED (NOT DETECTE); Enterococcus faecalis NOT DETECTED (NOT DETECTE); Enterococcus faecium NOT DETECTED (NOT DETECTE); Haemophilus influenzae NOT DETECTED (NOT DETECTE); Klebsiella aerogenes NOT DETECTED (NOT DETECTE); Klebsiella pneumoniae group NOT DETECTED (NOT DETECTE); Listeria monocytogenes NOT DETECTED (NOT DETECTE); Neisseria meningitidis NOT DETECTED (NOT DETECTE); Proteus spp. NOT DETECTED (NOT DETECTE); Pseudomonas aeruginosa NOT DETECTED (NOT DETECTE); Salmonella spp. NOT DETECTED (NOT DETECTE); Serratia marcescens NOT DETECTED (NOT DETECTE); Staphylococcus epidermidis NOT DETECTED (NOT DETECTE); Staphylococcus lugdunensis NOT DETECTED (NOT DETECTE); Stenotrophomonas maltophilia NOT DETECTED (NOT DETECTE); Streptococcus agalactiae NOT DETECTED (NOT DETECTE); Streptococcus pneumoniae NOT DETECTED (NOT DETECTE); Streptococcus pyogenes NOT DETECTED (NOT DETECTE); Streptococcus spp. NOT DETECTED (NOT DETECTE)
--- NOTE | 2024-11-15 08:40 | P.HP_ITS ---
HPI H&P: HPI History of Present Illness Chief complaint: SEPSIS W SEPTIC SHOCK,RAPID AFIB,KHALIF Narrative: Patient was seen and evaluated in the office about 2 days prior to coming into the emergency room, felt her heart racing, some shortness of breath, workup in the emergency room showed chest x-ray that was clear, hypotension, given 3 L of fluid bolus, still hypotensive, transferred to the ICU with sepsis with septic shock and placed on Levophed When I saw patient up in the intensive care unit, she was having some altered mental status, giving a very confusing and complicated uncertain of the story is real although she was pretty specific about the dates. No conversational dys pnea do seems very weak. Dry mucous membranes low with her speech but no focal neurological deficits only other real complaints is severe neck pain Opioid HPI Opioid Management Most Recent Pain and Opioid Data: Last Pain Scale 9 11/15/24 09:00 11/15/24 Last Pain Assessment 11/15/24 12:00 Last ORT Total Score 1 11/15/24 00:41 11/15/24 Last ORT Risk Category Low Risk 11/15/24 00:41 11/15/24 Review of Systems 2 ROS Status of ROS 10 or more systems reviewed and unremark able except as noted in history and below PFSH PFSH Medical History Hypertension ?I10 - Essential (primary) hypertension (ICD-10) Diabetes ?E11.9 - Type 2 diabetes mellitus without complications (ICD-10) Dyslipidemia ?E78.5 - Hyperlipidemia, unspecified (ICD-10) Hypomagnesemia ?E83.42 - Hypomagnesemia (ICD-10) Acute hyperglycemia ?R73.9 - Hyperglycemia, unspecified (ICD-10) Cervical cancer ?C53.9 - Malignant neoplasm of cervix uteri, unspecified (ICD-10) Osteoarthritis ?M19.90 - Unspecified osteoarthritis, unspecified site (ICD-10) Sleep apnea ?G47.30 - Sleep apnea, unspecified (ICD-10) Kidney stones ?N20.0 - Calculus of kidney (ICD-10) Cataract ?H26.9 - Unspecified cataract (ICD-10) Palpitations ?R00.2 - Palpitations (ICD-10) Anemia ?D64.9 - Anemia, unspecified (ICD-10) Rotator cuff arthropathy of left shoulder ?M12.812 - Other specific arthropathies, not elsewhere classified, left shoulder (ICD-10) Atrial fibrillation with rapid ventricular response ?I48.91 - Unspecified atrial fibrillation (ICD-10) Surgical History H/O repair of rotator cuff ?Z98.890 - Other specified postprocedural states (ICD-10) H/O section ?Z98.891 - History of uterine scar from previous surgery (ICD-10) History of tonsillectomy ?Z90.89 - Acquired absence of other organs (ICD-10) History of cholecystectomy ?Z90.49 - Acquired absence of other specified parts of digestive tract (ICD- 10) History of appendectomy ?Z90.49 - Acquired absence of other specified parts of digestive tract (ICD- 10) H/O: hysterectomy ?Z90.710 - Acquired absence of both cervix and uterus (ICD-10) Family History Grandmother Family history of cancer Father Family history of diabetes mellitus Grandfather Family history of cancer Brother Family history of hypertension Social History Within the past year, how often did you have a drink containing alcohol: monthly or less Within the past year, how often did you have six or more drinks on one occasion: never Smoking status: Never smoker Non-prescribed substance use: denies use 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 Highest level of school completed/degree received: Bachelor's degree Do you want help with school or training: No Are you now , , , , never or living with a partner: never In a typical week, how many times do you talk on the telephone with family, friends, or neighbors: 3 or more times per week How often do you get together with friends or relatives: once per week How often do you attend hoahaoism or samaritan services: 4 or more times per year Do you belong to any clubs or organizations such as hoahaoism groups unions, fraternal or athletic groups, or school groups: yes Total score: 3 Score interpretation: A score of greater than or equal to 2 indicates the lowest level of social isolation. Little interest or pleasure in doing things: not at all Feeling down, depressed, or hopeless: not at all Feel stressed/tense/nervous/anxious/difficulty sleeping: not at all Life stressors: recent of family or friend Due to disability, difficulty making decisions: No Meds Home Medications and Allergies Home Medications ?Medication ?Instructions ?Recorded ?Confirmed ?Type metformin 500 mg tablet 500 mg PO QID 05/23/23 11/15/24 History ramipril 10 mg capsule 10 mg PO DAILY 05/23/23 11/15/24 History simvastatin 20 mg tablet 20 mg PO DAILY 05/23/23 11/15/24 History venlafaxine 75 mg capsule,extended 75 mg PO DAILY 05/23/23 11/15/24 History release 24 hr apixaban 5 mg tablet (Eliquis) 5 mg PO BID #60 tabs 05/25/23 11/15/24 Rx magnesium oxide 400 mg (241.3 mg 400 mg PO BID #60 tabs 05/25/23 11/15/24 Rx magnesium) tablet lancets #200 ea 11/02/24 Rx metoprolol tartrate 100 mg tablet 100 mg PO BID 11/15/24 11/15/24 History pantoprazole 40 mg tablet,delayed 40 mg PO DAILY 11/15/24 11/15/24 History release tizanidine 4 mg tablet 4 mg PO BID PRN muscle spasticity 11/15/24 11/15/24 History Allergies Allergy/AdvReac Type Severity Reaction Status Date / Time Sulfa (Sulfonamide AdvReac Mild Hives Verified 11/02/24 08:28 Antibiotics) Exam Constitutional Vital Signs, click to edit/add: Last Vital Signs Temp 97.5 F L 11/15/24 03:42 Pulse 94 H 11/15/24 08:00 Resp 19 11/15/24 07:30 BP 109/86 11/15/24 07:30 Pulse Ox 96 11/15/24 04:45 O2 Del Method Room Air 11/15/24 00:44 Documenting provider has reviewed patient's vital signs: yes Common normals: apparent distress (Low with her speech but no focal neural deficits, seems weak) HENMT Common normals: oral mucous membranes not moist (Dry mucous membranes) Neck & C-Spine Common normals: negative for full ROM (Poor range of motion with diffuse tightness of the muscles, meningismus) Chest Common normals: inspection of chest normal Respiratory Common normals: normal respiratory effort and clear to auscultation bilaterally GI Common normals: Normal to inspection, nondistended, normoactive bowel sounds present, soft to palpation and non-tender Back & Pelvis Lumbar spine/lower back: normal to inspection (Poor range of motion secondary to pain) Neuro Common normals: CN's II-XII intact bilaterally, moves all extremities and no focal motor deficits Results Labs Labs: Short CBC 11/14/24 11/15/24 11/15/24 Range/Units 18:38 01:43 05:44 WBC 10.6 13.3 H (4.0-11.0) 10^3/uL Hgb 8.5 L 7.5 L 8.1 L (12.0-16.0) g/dL Hct 28.4 L 24.8 L 27.2 L (36.0-48.0) % Plt Count 187 202 (150-450) 10^3/uL BMP 11/14/24 11/15/24 18:38 05:44 Sodium 129 L 132 L Potassium 4.1 4.7 Chloride 97 L 98 Carbon Dioxide 22.0 19.2 L BUN 54.0 H 55.0 H Creatinine 1.90 H 1.92 H Glucose 485 H 418 H Calcium 8.1 L 7.7 L Liver Function 11/14/24 11/15/24 Range/Units 18:38 05:44 Total Bilirubin 1.1 H 1.7 H (0.2-1.0) mg/dL AST 46 H 45 H (15-37) U/L ALT 23 21 (14-59) U/L Alkaline Phosphatase 208 H 200 H (46-116) U/L Albumin 1.6 L 1.6 L (3.4-5.0) g/dL Urine 11/14/24 Range/Units 23:30 Urine Color Yellow (YELLOW) Urine Clarity Clear (CLEAR) Urine pH 5.0 (5.0-9.0) Ur Specific Miller 1.025 (1.005-1.025) Urine Protein Trace (NEG/TRACE) mg/dL Urine Glucose (UA) >=1000 A (NEGATIVE) mg/dL Assessment and Plan Assessment and Plan (1) Acute dehydration: (2) Atrial fibrillation with rapid ventricular response: (3) Sepsis: (4) Diabetes: (5) Hypertension: (6) Hypomagnesemia: (7) Sleep apnea: Plan Admission findings: Atrial fibrillation with RVR, neck pain, altered mental status, severe hypotension with systolics less than 80s despite IV fluid resuscitation, leukocytosis, bandemia, lactic acidosis, elevated liver function test, elevated BNP and needing to be placed on Levophed, meeting criteria for sepsis with septic shock. Sepsis with septic shock and multisystem organ dysfunction(altered mental status, elevated BNP consistent with cardiac dysfunction, elevated liver function test and acute kidney injury stage II), and 2 positive blood cultures for Staph aureus UA is positive-she has received 4 L, repeat another liter this morning so up to a total of 5 L IV bolus, maintain current IV rate, on Levophed we will try to wean that, on hydrocortisone, blood culture is positive for Staph aureus, with the acute kidney injury will avoid vancomycin, spinal tap later today due to the altered mental status and nuchal Rigidity. Altered mental status with nuchal rigidity-possible meningitis-spinal tap later today, on antibiotics and steroids already Abnormal urinalysis-culture pending Elevated BNP-likely secondary to the sepsis with septic shock-troponin is negative, likely due to myocardial dysfunction because of the shock, repeat later today and check echocardiogram Iron deficiency anemia-placed on Protonix, she did have a scope recently with noted showed no bleeding Hyponatremia-secondary to the shock-fluids as outlined above Acute kidney injury stage II-she has a baseline creatinine of 0.81, creatinine admission 1.92 which is 213% above baseline, with decreased urine output over the last 12 hours would put her in stage II acute kidney injury Elevated liver function test likely secondary to the sepsis as outlined, no abdominal pain, consider ultrasound Poorly controlled diabetes mellitus this is occurring prior to admission as well as noted during admission, will place on long-acting insulin twice a day as well as sliding scale insulin Lumbar radiculopathy-medications for pain control Atrial fibrillation with RVR-likely secondary to the sepsis-she has a history of atrial fibrillation in the past, hold Eliquis at least 1 more day Severe protein calorie malnutrition-diet supplement Hypomagnesemia-continue supplementation Hypertension by history holding blood pressure medications currently Hypercholesterolemia continue with home medications Depression-continue with medications Admission status: Patient in ICU with severe sepsis with septic shock and multisystem organ dysfunction, requiring vasopressor agents, blood culture already positive for likely MRSA, medically necessary treatment will span 2 midn ights. Inpatient status Urinary Catheter Management Urinary Catheter Management Straight: Cath placed during this visit: yes Urethral indwelling: Yes Reason for continuing: measure accurate output Insertion date: 11/15/24 Insertion time: 03:20 Urethral: Cath placed during this visit: no
[2024-11-15 09:00] LABS: Erythrocyte Sedimentation Rate >130 mm/hr (<=30)
[2024-11-15] MEDS: 0.9 % SODIUM CHLORIDE 1,000 ML 150 ML IV ×3 (09:01→23:58)
[2024-11-15] MEDS: LEVOFLOXACIN IN DEXTROSE 5 % 750 MG/150 ML PREMIX 100 MG IV (09:01)
[2024-11-15] MEDS: DIGOXIN 500 MCG/2 ML AMPUL 250 MCG IV ×3 (09:02→19:33)
[2024-11-15] MEDS: HYDROCORTISONE SODIUM SUCC PF 100 MG/2 ML VIAL IVP ×3 (09:03→23:58)
[2024-11-15] MEDS: INSULIN ASPART 300 UNIT/3 ML PEN SUBQ ×4 (09:04→21:29)
[2024-11-15 09:07] LABS: C Reactive Protein 28.28 mg/dL (<=0.50)
[2024-11-15 09:18] LABS: Influenza Virus A Antigen Negative; Influenza Virus B Antigen Negative; Internal Control Within Normal Limits; Respiratory Syncytial Virus Not Detected (NOT DETECTE)
[2024-11-15 09:19] LABS: Internal Control Within Normal Limits; SARS-CoV-2 Ag NEGATIVE (NEGATIVE)
[2024-11-15 09:22] LABS: Lactate/Lactic Acid 3.4 mmol/L (0.4-2.0)
--- NOTE | 2024-11-15 09:36 | FL_ITS ---
The [address] [address] Patient Name: CONNIE WISE MRN: [id number] date: 1955 Sex: F Assigned Patient Location: ICU Current Patient Location: ICU Accession/Order Number: [id number] Exam Date: 11/15/2024 13:10 Report Date: 11/15/2024 14:02 At the request of: MARYJANE REYNOLDS Procedure: FL guided lumbar puncture LP EXAMINATION: FL guided lumbar puncture LP HISTORY: ams, leukocytosis COMPARISON: No relevant comparison available. FLUORO DOSE: Cannot calculate. TECHNIQUE: A lumbar puncture was performed in the usual sterile manner after obtaining informed consent. Standard level fluoroscopic mode of operation utilized. FINDINGS: LEVEL: L4-5 NEEDLE: 25-gauge FLUID OBTAINED: 4 separate tubes with approximately 2 cc per tube. Fluid was initially bloody with clearing by the third tube. MEDICATIONS: 1% buffered lidocaine for local anesthesia. COMPLICATIONS: None. FL/FL guided lumbar puncture LP IMPRESSION: Uneventful lumbar puncture. The patient was provided aftercare instructions. Electronically authenticated by: LON BOLTON Date: 11/15/2024 14:02
[2024-11-15 10:03] LABS: Source BLOOD; Staphylococcus spp. DETECTED (NOT DETECTE)
[2024-11-15] MEDS: ORPHENADRINE 60 MG/ 2 ML VIAL IV ×2 (10:25→21:31)
[2024-11-15] MEDS: VENLAFAXINE HCL ER 75 MG CAPSULE PO (10:25)
[2024-11-15] MEDS: MAGNESIUM OXIDE 400 MG TABLET PO ×2 (10:25→21:31)
[2024-11-15] MEDS: PIPERACILLIN SODIUM/TAZOBACTAM 3.375 GM in 0.9 % SODIUM CHLORIDE 50 ML IV ×2 (11:20→19:33)
[2024-11-15 11:25] LABS: Glucometer 431 mg/dL (74-106)
--- NOTE | 2024-11-15 11:32 | SWNOTE1 ---
Pt having tests done. SW to attempt to see later today.
[2024-11-15 12:55] LABS: Hematocrit 28.3 % (36.0-48.0); Hemoglobin 8.5 g/dL (12.0-16.0); Mean Corpuscular Hemoglobin 23.9 pg (26.7-34.0); Mean Corpuscular Volume 79.7 fL (81.0-99.0); Mean Platelet Volume 11.4 fL (9.5-13.5); Platelet Count 180 10^3/uL (150-450); Red Blood Count 3.55 10^6/uL (4.20-5.40); Red Cell Distribution Width 20.4 % (11.0-15.0)
[2024-11-15 13:06] LABS: Alanine Aminotransferase 22 U/L (14-59); Albumin Globulin Ratio 0.3; Albumin Level 1.4 g/dL (3.4-5.0); Alkaline Phosphatase 196 U/L (46-116); Anion Gap 18.5; Aspartate Amino Transferase 41 U/L (15-37); BUN Creatinine Ratio 31.2; Bilirubin Total 1.9 mg/dL (0.2-1.0); Calcium 7.5 mg/dL (8.5-10.1); Carbon Dioxide 18.2 mmol/L (21.0-32.0); Chloride 100 mmol/L (98-107); Estimated GFR (African America 36 (>=60 mL/min/1.73m^2); Estimated GFR (Non-African Ame 30 (>=60 mL/min/1.73m^2); Globulin 4.3 g/dL; Glucose 409 mg/dL (74-106); Potassium 4.7 mmol/L (3.5-5.1); Sodium 132 mmol/L (136-145); Total Protein 5.7 g/dL (6.4-8.2)
[2024-11-15] MEDS: LIDOCAINE HCL 10 ML, SODIUM BICARBONATE 1 MEQ INJ (13:22)
--- NOTE | 2024-11-15 13:27 | SWNOTE1 ---
SW to stop in tomorrow to see pt and assess any discharge needs. Pt in testing.
[2024-11-15 13:30] LABS: Anisocytosis 2+; Ovalocytes 1+; Polychromasia 1+
[2024-11-15] MEDS: INSULIN GLARGINE 300 UNIT/3 ML INSULN.PEN 16 UNIT SQ ×2 (13:52→21:30)
--- NOTE | 2024-11-15 14:12 | PC.NURSE ---
1313 Pt placed into the prone position. Pt stated she couldn't breath , Pulse ox was 88% on room air, Pt anxious. O2 placed via NC at 4L. Face turned to side, pt stated she was better. 1333 Procedure complete, tolerated procedure well. Pt placed back onto bed, HOB elevated, resp regular and non labored. Pulse ox 92% on 4L per NC. 1339 transported to ICU vis bed. Pt stable
[2024-11-15 14:20] LABS: Glucose CSF 213 mg/dL (40-70); Total Protein CSF 205 mg/dL (15-45)
[2024-11-15 15:04] LABS: CSF Tube # 3
[2024-11-15 15:06] LABS: CSF Clarity CLEAR (CLEAR); CSF Color PINK (COLORLESS)
[2024-11-15 15:07] LABS: CSF Total Volume 8.5 mL; Red Blood Cell CSF 1638 cubic mm (0-0); Red Blood Cell CSF Side 1 1480; Red Blood Cell CSF Side 2 1470; White Blood Cell CSF 2 cubic mm (0-5); White Blood Cell CSF Side 1 2; White Blood Cell CSF Side 2 3
[2024-11-15] MEDS: LINEZOLID IN DEXTROSE 5% 600 MG/300 ML PIGGYBACK 300 MG IV (15:25)
[2024-11-15 16:23] LABS: Glucometer 393 mg/dL (74-106)
[2024-11-15] MEDS: L. ACIDOPHILUS/L.BULGARICUS 1 PACKET GRAN.PACK PO (21:30)
[2024-11-15] MEDS: PROSTAT 15 GM PROTEIN/100 CAL 30 ML LIQUID PACKET PO (21:31)
[2024-11-15 21:39] LABS: Glucometer 346 mg/dL (74-106)
[2024-11-16] VITALS (39 sets, daily range): BP systolic 122–159; BP diastolic 66–114; PULSE 62–112; TEMP 36.3–36.6; O2SAT 93–98
[2024-11-16] MEDS: PANTOPRAZOLE SODIUM 40 MG VIAL IV ×2 (02:10→14:36)
[2024-11-16] MEDS: LINEZOLID IN DEXTROSE 5% 600 MG/300 ML PIGGYBACK 300 MG IV ×2 (02:10→16:10)
[2024-11-16] MEDS: PIPERACILLIN SODIUM/TAZOBACTAM 3.375 GM in 0.9 % SODIUM CHLORIDE 50 ML IV ×3 (03:13→20:07)
[2024-11-16 06:15] LABS: Hematocrit 27.6 % (36.0-48.0); Hemoglobin 8.4 g/dL (12.0-16.0); Mean Corpuscular HGB Conc 30.4 g/dL (29.9-35.2); Mean Corpuscular Hemoglobin 23.9 pg (26.7-34.0); Mean Corpuscular Volume 78.4 fL (81.0-99.0); Mean Platelet Volume 11.1 fL (9.5-13.5); Platelet Count 185 10^3/uL (150-450); Red Blood Count 3.52 10^6/uL (4.20-5.40); Red Cell Distribution Width 20.4 % (11.0-15.0); White Blood Count 11.6 10^3/uL (4.0-11.0)
[2024-11-16 06:31] LABS: INR 1.31; Partial Thromboplastin Time 36.7 sec (22.3-36.2); Prothrombin Time 13.5 sec (9.0-11.6)
[2024-11-16 06:37] LABS: Digoxin 0.8 ng/mL (0.9-2.0)
[2024-11-16 06:38] LABS: Lymphocytes Absolute Manual 1.04 10^3/uL (1.20-3.80); Monocytes Absolute Manual 0.11 10^3/uL (0.30-0.80); Segmented Neut Absolute Manual 10.44 10^3/uL (1.4-6.5)
[2024-11-16] MEDS: 0.9 % SODIUM CHLORIDE 1,000 ML 150 ML IV (06:41)
[2024-11-16 06:42] LABS: Alanine Aminotransferase 24 U/L (14-59); Albumin Globulin Ratio 0.3; Albumin Level 1.3 g/dL (3.4-5.0); Alkaline Phosphatase 186 U/L (46-116); Anion Gap 15.8; Aspartate Amino Transferase 35 U/L (15-37); BUN Creatinine Ratio 40.6; Bilirubin Total 1.3 mg/dL (0.2-1.0); Calcium 7.9 mg/dL (8.5-10.1); Carbon Dioxide 21.5 mmol/L (21.0-32.0); Chloride 106 mmol/L (98-107); Estimated GFR (African America >60 (>=60 mL/min/1.73m^2); Estimated GFR (Non-African Ame 52 (>=60 mL/min/1.73m^2); Globulin 4.4 g/dL; Glucose 364 mg/dL (74-106); Potassium 4.3 mmol/L (3.5-5.1); Sodium 139 mmol/L (136-145); Total Protein 5.7 g/dL (6.4-8.2)
[2024-11-16 07:40] LABS: Glucometer 340 mg/dL (74-106)
--- NOTE | 2024-11-16 08:24 | P.PN_ITS ---
Progress Note: Subjective Subjective Interval history: Patient feels much better today. Much more alert and focused this morning. Exam Constitutional Vital Signs, click to edit/add: Last Vital Signs Temp 97.4 F L 11/16/24 03:00 Pulse 96 H 11/16/24 07:57 Resp 23 H 11/16/24 07:45 BP 144/87 H 11/16/24 07:32 Pulse Ox 96 11/16/24 07:30 O2 Del Method Room Air 11/16/24 07:57 O2 Flow Rate 4 11/15/24 13:38 Documenting provider has reviewed patient's vital signs: yes Common normals: no apparent distress Chest Common normals: inspection of chest normal Respiratory Common normals: normal respiratory effort and no retractions; not clear to ascultation bilaterally Auscultation: rales (Faint rales in bases) Cardio Common normals: regular rate and no murmurs Rhythm: abnormal rhythm GI Common normals: Normal to inspection, nondistended, normoactive bowel sounds pr esent, soft to palpation, no hepatosplenomegaly and no masses Extremity Common normals: abnormal to inspection (Trace edema) Progress Note: Objective Labs Labs: Short CBC 11/15/24 11/16/24 Range/Units 12:14 05:32 WBC 10.0 11.6 H (4.0-11.0) 10^3/uL Hgb 8.5 L 8.4 L (12.0-16.0) g/dL Hct 28.3 L 27.6 L (36.0-48.0) % Plt Count 180 185 (150-450) 10^3/uL BMP 11/15/24 11/16/24 12:14 05:32 Sodium 132 L 139 Potassium 4.7 4.3 Chloride 100 106 Carbon Dioxide 18.2 L 21.5 BUN 53.0 H 43.0 H Creatinine 1.70 H 1.06 H Glucose 409 H 364 H Calcium 7.5 L 7.9 L Liver Function 11/15/24 11/16/24 Range/Units 12:14 05:32 Total Bilirubin 1.9 H 1.3 H (0.2-1.0) mg/dL AST 41 H 35 (15-37) U/L ALT 22 24 (14-59) U/L Alkaline Phosphatase 196 H 186 H (46-116) U/L Albumin 1.4 L 1.3 L (3.4-5.0) g/dL Progress Note: A&P Assessment and Plan (1) Acute dehydration: (2) Atrial fibrillation with rapid ventricular response: (3) Sepsis: (4) Diabetes: (5) Hypertension: (6) Hypomagnesemia: (7) Sleep apnea: Plan Admission findings: Atrial fibrillation with RVR, neck pain, altered mental status, severe hypotension with systolics less than 80s despite IV fluid resuscitation, leukocytosis, bandemia, lactic acidosis, elevated liver function test, elevated BNP and needing to be placed on Levophed, meeting criteria for sepsis with septic shock. Sepsis with septic shock and multisystem organ dysfunction(altered mental status, elevated BNP consistent with cardiac dysfunction, elevated liver function test and acute kidney injury stage II), and 2 positive blood cultures for Staph aureus, UA is positive-she received 5 L boluses yesterday, and is much improved today, will saline lock, blood pressure back to normal off of her blood pressure medications from home, consider restarting those blood pressure continues to creep up blood cultures pending continue with current antibiotic regiment Altered mental status with nuchal rigidity-spinal tap does not consistent with meningitis, white blood cell count normal and glucose ratio also normal, elevated protein but elevated RBCs also Abnormal urinalysis-culture pending Elevated BNP-slightly elevated compared yesterday, echocardiogram shows a good ejection fraction, will saline lock and see if she can mobilize fluids on her own may need diuresis tomorrow or later today depending on outcomes Iron deficiency anemia-placed on Protonix,-stable Hyponatremia-resolved Acute kidney injury stage II-she has a baseline creatinine of 0.81, creatinine admission 1.92 which is 213% above baseline, with decreased urine output over the last 12 hours would put her in stage II acute kidney injury-much improved, still 10% above baseline but will saline lock today Elevated liver function test likely secondary to the sepsis as outlined, no abdominal pain, consider ultrasound-improved today Poorly controlled diabetes mellitus this is occurring prior to admission as well as noted during admission, will place on long-acting insulin twice a day as well as sliding scale insulin-adjust sliding scale and long-acting Lumbar radiculopathy-medications for pain control-PT Atrial fibrillation with RVR-likely secondary to the sepsis-she has a history of atrial fibrillation in the past, hold Apolinar at least 1 more day Severe protein calorie malnutrition-diet supplement Hypomagnesemia-continue supplementation Hypertension by history holding blood pressure medications currently Hypercholesterolemia continue with home medications Depression-continue with medications Admission status: Patient in ICU with severe sepsis with septic shock and multisystem organ dysfunction, requiring vasopressor agents, blood culture already positive for likely MRSA, medically necessary treatment will span 2 midnights. Inpatient status Urinary Catheter Management Urinary Catheter Management Urinary Catheter Management Straight: Cath placed during this visit: yes Urethral indwelling: Yes Reason for continuing: measure accurate output Insertion date: 11/15/24 Insertion time: 03:20 Urethral: Cath placed during this visit: no
[2024-11-16] MEDS: PROSTAT 15 GM PROTEIN/100 CAL 30 ML LIQUID PACKET PO ×2 (08:25→22:19)
[2024-11-16] MEDS: ORPHENADRINE 60 MG/ 2 ML VIAL IV ×2 (08:25→22:19)
[2024-11-16] MEDS: L. ACIDOPHILUS/L.BULGARICUS 1 PACKET GRAN.PACK PO ×2 (08:25→22:18)
[2024-11-16] MEDS: DIGOXIN 125 MCG TABLET 250 MCG PO (08:25)
[2024-11-16] MEDS: MAGNESIUM OXIDE 400 MG TABLET PO ×2 (08:25→22:18)
[2024-11-16] MEDS: INSULIN GLARGINE 300 UNIT/3 ML INSULN.PEN 20 UNIT SQ ×2 (08:26→22:17)
[2024-11-16] MEDS: INSULIN ASPART 300 UNIT/3 ML PEN SUBQ ×4 (08:26→22:18)
[2024-11-16] MEDS: KETOROLAC TROMETHAMINE 30 MG/ML VIAL 15 MG IVP ×2 (09:10→14:36)
--- NOTE | 2024-11-16 09:59 | SWNOTE1 ---
SW met with pt to discuss dc needs. Pt lives at home with a friend. Pt does not use any DME at home and has no services coming in. 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 Pt voiced she is feeling much better today, not 100%, but better. Pt also voiced she was out of it yesterday and does not remember. Pt plans on returning to work, but will take some time off. SW asked pt about HH services. She did state she worked with therapy, unsure if they recommended Home health. SW to check therapy notes. SW reviewed PT note and home health is recommended at this time, but if pt continues to improve she will not need it. SW to discuss with pt.
--- NOTE | 2024-11-16 10:10 | SWNOTE1 ---
ISHMAEL went back and spoke with pt about home health. At this time pt would like to take a few days to see if she improves and does not want home health at this time. ISHMAEL advised pt that if she gets home and decides she does want HH, she can contact her PCP to get it set up. She voiced understanding.
[2024-11-16 11:17] LABS: Glucometer 368 mg/dL (74-106)
--- NOTE | 2024-11-16 13:48 | PC.NURSE ---
report called to Valerie on medsurg. pt and friend aware of transfer. taken to med surg with belongings.
[2024-11-16 14:43] LABS: BOX Test Reference Lab FIRELANDS; BOX Test Sent Out URINE
[2024-11-16 14:44] LABS: BOX Test Reference Lab FIRELANDS; BOX Test Sent Out BLOOD CULTURE
[2024-11-16 14:44] LABS: BOX Test Sent Out BLOOD CULTURE
[2024-11-16 14:45] LABS: BOX Test Reference Lab FIRELANDS; BOX Test Sent Out BLOOD CULTURE
[2024-11-16 14:45] LABS: BOX Test Reference Lab FIRELANDS; BOX Test Sent Out BLOOD CULTURE
[2024-11-16 14:46] LABS: BOX Test Reference Lab FIRELANDS; BOX Test Sent Out CSF CULTURE
[2024-11-16 16:37] LABS: Glucometer 323 mg/dL (74-106)
[2024-11-16 21:09] LABS: Glucometer 287 mg/dL (74-106)
[2024-11-16] MEDS: ENSURE HP 237 ML LIQUID PO (22:18)
[2024-11-17] VITALS (18 sets, daily range): BP systolic 113–146; BP diastolic 65–77; PULSE 64–107; TEMP 36.4–36.7; O2SAT 93–98
[2024-11-17] MEDS: LINEZOLID IN DEXTROSE 5% 600 MG/300 ML PIGGYBACK 300 MG IV ×2 (01:59→15:47)
[2024-11-17] MEDS: PANTOPRAZOLE SODIUM 40 MG VIAL IV ×2 (01:59→13:59)
[2024-11-17] MEDS: PIPERACILLIN SODIUM/TAZOBACTAM 3.375 GM in 0.9 % SODIUM CHLORIDE 50 ML IV ×3 (01:59→21:38)
[2024-11-17 06:26] LABS: Digoxin 0.8 ng/mL (0.9-2.0)
[2024-11-17] MEDS: ACETAMINOPHEN 500 MG TABLET 1000 MG PO ×2 (06:31→21:36)
[2024-11-17 06:33] LABS: Alanine Aminotransferase 18 U/L (14-59); Albumin Globulin Ratio 0.3; Albumin Level 1.1 g/dL (3.4-5.0); Alkaline Phosphatase 162 U/L (46-116); Anion Gap 10.5; Aspartate Amino Transferase 32 U/L (15-37); BUN Creatinine Ratio 42.9; Bilirubin Total 0.7 mg/dL (0.2-1.0); Carbon Dioxide 23.2 mmol/L (21.0-32.0); Chloride 109 mmol/L (98-107); Estimated GFR (African America >60 (>=60 mL/min/1.73m^2); Estimated GFR (Non-African Ame >60 (>=60 mL/min/1.73m^2); Glucose 144 mg/dL (74-106); Potassium 3.7 mmol/L (3.5-5.1); Sodium 139 mmol/L (136-145); Total Protein 5.1 g/dL (6.4-8.2)
[2024-11-17 07:21] LABS: Basophils Percent Auto 0.3 % (0.2-2.0); Eosinophils Absolute Auto 0.1 10^3/uL (0.0-0.7); Eosinophils Percent Auto 1.2 % (0.9-7.0); Hematocrit 31.9 % (36.0-48.0); Hemoglobin 9.7 g/dL (12.0-16.0); Immature Granulocytes Abs Auto 0.28 10^3/uL (0.00-0.03); Immature Granulocytes Pct Auto 2.4 % (0.0-0.5); Lymphocytes Absolute Auto 1.9 10^3/uL (1.2-3.8); Mean Corpuscular HGB Conc 30.4 g/dL (29.9-35.2); Mean Corpuscular Hemoglobin 24.1 pg (26.7-34.0); Mean Corpuscular Volume 79.4 fL (81.0-99.0); Mean Platelet Volume 10.6 fL (9.5-13.5); Monocytes Absolute Auto 0.7 10^3/uL (0.3-0.8); Monocytes Percent Auto 5.9 % (1.7-12.0); Neutrophils Absolute Auto 8.6 10^3/uL (1.4-6.5); Neutrophils Percent Auto 74.2 % (43.0-75.0); Platelet Count 210 10^3/uL (150-450); Red Blood Count 4.02 10^6/uL (4.20-5.40); Red Cell Distribution Width 20.8 % (11.0-15.0); White Blood Count 11.6 10^3/uL (4.0-11.0)
[2024-11-17 07:38] LABS: INR 1.19; Partial Thromboplastin Time 31.6 sec (22.3-36.2); Prothrombin Time 12.4 sec (9.0-11.6)
[2024-11-17 07:45] LABS: Glucometer 115 mg/dL (74-106)
--- NOTE | 2024-11-17 08:50 | P.PN_ITS ---
Progress Note: Subjective Subjective Interval history: No new complajn - still with neck pain Exam Constitutional Vital Signs, click to edit/add: Last Vital Signs Temp 97.8 F 11/17/24 07:48 Pulse 80 11/17/24 08:00 Resp 16 11/17/24 07:48 BP 124/68 11/17/24 07:48 Pulse Ox 94 L 11/17/24 07:48 O2 Del Method Room Air 11/17/24 07:48 O2 Flow Rate 4 11/15/24 13:38 Documenting provider has reviewed patient's vital signs: yes Common normals: no apparent distress Chest Common normals: inspection of chest normal Respiratory Common normals: normal respiratory effort and no retractions; not clear to ascultation bilaterally Auscultation: rales (Faint rales in bases) Cardio Common normals: regular rate and no murmurs Rhythm: abnormal rhythm GI Common normals: Normal to inspection, nondistended, normoactive bowel sounds present, soft to palpation, no hepatosplenomegaly and no masses Extremity Common normals: abnormal to inspection (1+ edema) Progress Note: Objective Labs Labs: Short CBC 11/17/24 Range/Units 07:00 WBC 11.6 H (4.0-11.0) 10^3/uL Hgb 9.7 L (12.0-16.0) g/dL Hct 31.9 L (36.0-48.0) % Plt Count 210 (150-450) 10^3/uL BMP 11/17/24 05:56 Sodium 139 Potassium 3.7 Chloride 109 H Carbon Dioxide 23.2 BUN 39.0 H Creatinine 0.91 Glucose 144 H Calcium 8.0 L Liver Function 11/17/24 Range/Units 05:56 Total Bilirubin 0.7 (0.2-1.0) mg/dL AST 32 (15-37) U/L ALT 18 (14-59) U/L Alkaline Phosphatase 162 H (46-116) U/L Albumin 1.1 L (3.4-5.0) g/dL Progress Note: A&P Assessment and Plan (1) Acute dehydration: (2) Atrial fibrillation with rapid ventricular response: (3) Sepsis: (4) Diabetes: (5) Hypertension: (6) Hypomagnesemia: (7) Sleep apnea: Plan Admission findings: Atrial fibrillation with RVR, neck pain, altered mental status, severe hypotension with systolics less than 80s despite IV fluid resuscitation, leukocytosis, bandemia, lactic acidosis, elevated liver function test, elevated BNP and needing to be placed on Levophed, meeting criteria for sepsis with septic shock. Sepsis with septic shock and multisystem organ dysfunction(altered mental status, elevated BNP consistent with cardiac dysfunction, elevated liver function test and acute kidney injury stage II), and 2 positive blood cultures for Staph aureus, UA is positive-overall improved, wbc stable, kidney function returned to normla - cx still pending Altered mental status with nuchal rigidity-back to baseline Abnormal urinalysis-culture pending Elevated BNP-jimproved today Iron deficiency anemia-placed on Protonix,-stable Hyponatremia-resolved Acute kidney injury stage II-back at baseline Elevated liver function test likely secondary to the sepsis as outlined, no abdominal pain, - improved Poorly controlled diabetes mellitus this is occurring prior to admission as well as noted during admission, will place on long-acting insulin twice a day as well as sliding scale insulin-adding elvin emeds Lumbar radiculopathy-medications for pain control-PT Atrial fibrillation with RVR-likely secondary to the sepsis-she has a history of atrial fibrillation in the past, restart sarahi today Severe protein calorie malnutrition-diet supplement Hypomagnesemia-continue supplementation Hypertension by history holding blood pressure medications currently Hypercholesterolemia continue with home medications Depression-continue with medications Admission status: Patient in ICU with severe sepsis with septic shock and multisystem organ dysfunction, requiring vasopressor agents, blood culture already positive for likely MRSA, medically necessary treatment will span 2 midnights. Inpatient status Urinary Catheter Management Urinary Catheter Management Urinary Catheter Management Straight: Cath placed during this visit: yes Urethral indwelling: Yes Reason for continuing: measure accurate output Insertion date: 11/15/24 Insertion time: 03:20 Urethral: Cath placed during this visit: yes, but has since been removed by the nurse Removal date: 11/17/24 Removal time: 06:41
[2024-11-17] MEDS: MAGNESIUM OXIDE 400 MG TABLET PO ×2 (09:26→21:36)
[2024-11-17] MEDS: DIGOXIN 125 MCG TABLET 250 MCG PO (09:26)
[2024-11-17] MEDS: INSULIN GLARGINE 300 UNIT/3 ML INSULN.PEN 20 UNIT SQ ×2 (09:26→21:36)
[2024-11-17] MEDS: ORPHENADRINE 60 MG/ 2 ML VIAL IV ×2 (09:26→21:54)
[2024-11-17] MEDS: ENSURE HP 237 ML LIQUID PO ×2 (09:26→21:36)
[2024-11-17] MEDS: L. ACIDOPHILUS/L.BULGARICUS 1 PACKET GRAN.PACK PO ×2 (09:26→21:37)
[2024-11-17] MEDS: PROSTAT 15 GM PROTEIN/100 CAL 30 ML LIQUID PACKET PO ×2 (09:26→21:36)
--- NOTE | 2024-11-17 10:31 | REH.PTDLY ---
Physical Therapy Daily Note PT Daily Note/Assess Start: 11/17/24 10:25 Freq: Status: Active Protocol: Document 11/17/24 10:26 FRANK (Rec: 11/17/24 10:31 FRANK [id number]) Physical Therapy Daily Note/Assessment Time In 10:08 Time Out 10:24 Subjective Pt up in chair upon arrival. Reports neck is the most bothersome to her. Had to get out of the bed early this morning because it just hurt and was so stiff. Pt states neck pain was problematic prior to coming to the hospital. Had just seen chiropractor on Tuesday due to it. Therapeutic Exercise 4 Minutes (minutes) Therapeutic Exercise 0 Units Therapeutic Exercise Instructed in seated B LE AP, marching, LAQ and hip abd Treatment step outs for strength and mobility. Pt reports it feels good to perform exs and stretch out as whole body just feels stiff. Therapeutic Activity 12 Minutes (minutes) Therapeutic Activity 1 Units Therapeutic Activity Sit to stand transfers SBA. Pt able to stand pushing Comments off from arm rests on chair. Gait training with RW SBA 160 feet with pt needing to stop and take 4 brief standing rest breaks in place due to neck pain. Cues with gait for pt to maintain upright posture and avoid forward head as this puts more strain on neck. Attempted gait without RW as pt does not usually use this, pt uses hand rail and takes about 3 steps but requests to have RW back as this feels better overall. Total Therapy 16 Minutes Total Physical 1 Therapy Units Daily Note Summary Pt struggles with gait today due to neck pain. Pt still needs AD device today as well for safety and to reduce pain in neck. Continue with POC and progress to no AD when able as pt does not use a RW at home.
[2024-11-17 11:35] LABS: Glucometer 233 mg/dL (74-106)
[2024-11-17] MEDS: METFORMIN HCL 500 MG TABLET PO ×3 (11:35→21:36)
[2024-11-17] MEDS: 0.9 % SODIUM CHLORIDE 250 ML 10 ML IV (11:35)
[2024-11-17] MEDS: APIXABAN 5 MG TABLET PO ×2 (11:36→21:36)
[2024-11-17 17:09] LABS: Glucometer 255 mg/dL (74-106)
[2024-11-17] MEDS: INSULIN ASPART 300 UNIT/3 ML PEN SUBQ ×2 (17:11→21:35)
[2024-11-17 20:27] LABS: Glucometer 276 mg/dL (74-106)
[2024-11-18] VITALS (19 sets, daily range): BP systolic 107–145; BP diastolic 56–72; PULSE 78–99; TEMP 36–37; O2SAT 92–97
[2024-11-18] MEDS: PIPERACILLIN SODIUM/TAZOBACTAM 3.375 GM in 0.9 % SODIUM CHLORIDE 50 ML IV ×3 (04:26→20:22)
[2024-11-18] MEDS: LINEZOLID IN DEXTROSE 5% 600 MG/300 ML PIGGYBACK 300 MG IV ×2 (04:27→15:32)
[2024-11-18] MEDS: PANTOPRAZOLE SODIUM 40 MG VIAL IV ×2 (04:27→20:20)
[2024-11-18] MEDS: METFORMIN HCL 500 MG TABLET PO ×4 (05:51→20:20)
[2024-11-18 07:47] LABS: Alkaline Phosphatase 175 U/L (46-116); Anion Gap 12.6; Aspartate Amino Transferase 55 U/L (15-37); Bilirubin Total 0.9 mg/dL (0.2-1.0); Carbon Dioxide 17.5 mmol/L (21.0-32.0); Chloride 109 mmol/L (98-107); Potassium 4.1 mmol/L (3.5-5.1); Sodium 135 mmol/L (136-145); Total Protein 5.2 g/dL (6.4-8.2)
[2024-11-18 08:01] LABS: Alanine Aminotransferase 29 U/L (14-59); Albumin Globulin Ratio 0.3; Albumin Level 1.3 g/dL (3.4-5.0); BUN Creatinine Ratio 34.7; Calcium 7.7 mg/dL (8.5-10.1); Estimated GFR (African America >60 (>=60 mL/min/1.73m^2); Estimated GFR (Non-African Ame >60 (>=60 mL/min/1.73m^2); Globulin 3.9 g/dL; Glucose 97 mg/dL (74-106)
[2024-11-18 08:35] LABS: Glucometer 93 mg/dL (74-106)
[2024-11-18] MEDS: PROSTAT 15 GM PROTEIN/100 CAL 30 ML LIQUID PACKET PO ×2 (08:37→20:22)
[2024-11-18] MEDS: DIGOXIN 125 MCG TABLET 250 MCG PO (08:37)
[2024-11-18] MEDS: INSULIN GLARGINE 300 UNIT/3 ML INSULN.PEN 20 UNIT SQ ×2 (08:37→20:22)
[2024-11-18] MEDS: ORPHENADRINE 60 MG/ 2 ML VIAL IV ×2 (08:37→20:20)
[2024-11-18] MEDS: MAGNESIUM OXIDE 400 MG TABLET PO ×2 (08:37→20:20)
[2024-11-18] MEDS: ENSURE HP 237 ML LIQUID PO ×2 (08:37→20:21)
[2024-11-18] MEDS: L. ACIDOPHILUS/L.BULGARICUS 1 PACKET GRAN.PACK PO ×2 (08:37→20:20)
[2024-11-18] MEDS: APIXABAN 5 MG TABLET PO ×2 (08:37→20:20)
--- NOTE | 2024-11-18 10:12 | P.PN_ITS ---
Progress Note: Subjective Subjective Interval history: No new complaints, still has pain in her neck although her range of motion appears to be somewhat better, still pain in her low back, again although somewhat better. Generalized weakness persisting Exam Constitutional Vital Signs, click to edit/add: Last Vital Signs Temp 98.0 F 11/18/24 08:50 Pulse 85 11/18/24 08:50 Resp 16 11/18/24 08:50 BP 145/72 H 11/18/24 08:50 Pulse Ox 94 L 11/18/24 08:50 O2 Del Method Room Air 11/18/24 08:50 O2 Flow Rate 4 11/15/24 13:38 Documenting provider has reviewed patient's vital signs: yes Common normals: no apparent distress Lymph Lymphatic: no lymphadenopathy noted Chest Common normals: inspection of chest normal and palpation of chest normal Respiratory Common normals: normal respiratory effort and no retractions Cardio Common normals: regular rate and regular rhythm GI Common normals: Normal to inspection, nondistended, normoactive bowel sounds present Extremity Common normals: abnormal to inspection (1+ edema stable) Progress Note: Objective Labs Labs: BMP 11/18/24 06:40 Sodium 135 L Potassium 4.1 Chloride 109 H Carbon Dioxide 17.5 L BUN 25.0 H Creatinine 0.72 Glucose 97 Calcium 7.7 L Liver Function 11/18/24 Range/Units 06:40 Total Bilirubin 0.9 (0.2-1.0) mg/dL AST 55 H (15-37) U/L ALT 29 (14-59) U/L Alkaline Phosphatase 175 H (46-116) U/L Albumin 1.3 L (3.4-5.0) g/dL Progress Note: A&P Assessment and Plan (1) Acute dehydration: (2) Atrial fibrillation with rapid ventricular response: (3) Sepsis: (4) Diabetes: (5) Hypertension: (6) Hypomagnesemia: (7) Sleep apnea: Plan Admission findings: Atrial fibrillation with RVR, neck pain, altered mental status, severe hypotension with systolics less than 80s despite IV fluid resuscitation, leukocytosis, bandemia, lactic acidosis, elevated liver function test, elevated BNP and needing to be placed on Levophed, meeting criteria for sepsis with septic shock. Sepsis with septic shock and multisystem organ dysfunction(altered mental status, elevated BNP consistent with cardiac dysfunction, elevated liver f unction test and acute kidney injury stage II), and 2 positive blood cultures for Staph aureus, UA is positive 4 E. coli-overall improved, wbc stable, kidney function returned to normal - cx still pending, will check with outside facility doing the cultures, possible discharge tomorrow if remains stable and both cultures come back positive sensitive to oral agents Altered mental status with nuchal rigidity-back to baseline Acute UTI due to E. coli-culture pending Elevated BNP-jimproved today Iron deficiency anemia-placed on Protonix,-stable Hyponatremia-resolved Acute kidney injury stage II-back at baseline Elevated liver function test likely secondary to the sepsis as outlined, no abdominal pain, - improved Poorly controlled diabetes mellitus this is occurring prior to admission as well as noted during admission, will place on long-acting insulin twice a day as well as sliding scale insulin-adding elvin emeds-improving Lumbar radiculopathy-medications for pain [id number] need rehab Atrial fibrillation with RVR-likely secondary to the sepsis-she has a history of atrial fibrillation in the past, sarthakrt sarahi today Severe protein calorie malnutrition-diet supplement Hypomagnesemia-continue supplementation Hypertension by history holding blood pressure medications currently Hypercholesterolemia continue with home medications Depression-continue with medications Admission status: Patient in ICU with severe sepsis with septic shock and multisystem organ dysfunction, requiring vasopressor agents, blood culture already positive for likely MRSA, medically necessary treatment will span 2 midnights. Inpatient status Urinary Catheter Management Urinary Catheter Management Urinary Catheter Management Straight: Cath placed during this visit: yes Urethral indwelling: Yes Reason for continuing: measure accurate output Insertion date: 11/15/24 Insertion time: 03:20 Urethral: Cath placed during this visit: yes, but has since been removed by the nurse Removal date: 11/17/24 Removal time: 06:41
[2024-11-18 11:45] LABS: Glucometer 128 mg/dL (74-106)
[2024-11-18 16:49] LABS: Glucometer 236 mg/dL (74-106)
[2024-11-18 20:07] LABS: Glucometer 207 mg/dL (74-106)
[2024-11-18] MEDS: HYOSCYAMINE SULFATE 0.125 MG TAB.SUBL SL (20:20)
[2024-11-18] MEDS: ACETAMINOPHEN 500 MG TABLET 1000 MG PO (20:20)
[2024-11-18] MEDS: INSULIN ASPART 300 UNIT/3 ML PEN SUBQ (20:21)
[2024-11-19] VITALS (9 sets, daily range): BP systolic 116–136; BP diastolic 54–72; PULSE 64–86; TEMP 36.3; O2SAT 92–94
[2024-11-19] MEDS: LINEZOLID IN DEXTROSE 5% 600 MG/300 ML PIGGYBACK 300 MG IV (02:14)
[2024-11-19] MEDS: PIPERACILLIN SODIUM/TAZOBACTAM 3.375 GM in 0.9 % SODIUM CHLORIDE 50 ML IV (03:17)
[2024-11-19] MEDS: METFORMIN HCL 500 MG TABLET PO (05:30)
[2024-11-19 06:59] LABS: Basophils Percent Auto 0.1 % (0.2-2.0); Eosinophils Absolute Auto 0.1 10^3/uL (0.0-0.7); Eosinophils Percent Auto 1.2 % (0.9-7.0); Hematocrit 29.8 % (36.0-48.0); Hemoglobin 8.6 g/dL (12.0-16.0); Immature Granulocytes Abs Auto 0.16 10^3/uL (0.00-0.03); Immature Granulocytes Pct Auto 1.8 % (0.0-0.5); Lymphocytes Absolute Auto 1.9 10^3/uL (1.2-3.8); Mean Corpuscular Hemoglobin 23.6 pg (26.7-34.0); Mean Corpuscular Volume 81.6 fL (81.0-99.0); Mean Platelet Volume 10.7 fL (9.5-13.5); Monocytes Absolute Auto 0.6 10^3/uL (0.3-0.8); Monocytes Percent Auto 6.6 % (1.7-12.0); Neutrophils Absolute Auto 6.2 10^3/uL (1.4-6.5); Neutrophils Percent Auto 69.3 % (43.0-75.0); Platelet Count 168 10^3/uL (150-450); Red Blood Count 3.65 10^6/uL (4.20-5.40); Red Cell Distribution Width 21.2 % (11.0-15.0)
[2024-11-19 07:17] LABS: Alanine Aminotransferase 18 U/L (14-59); Albumin Globulin Ratio 0.3; Albumin Level 1.3 g/dL (3.4-5.0); Alkaline Phosphatase 160 U/L (46-116); Aspartate Amino Transferase 27 U/L (15-37); BUN Creatinine Ratio 28.2; Calcium 8.3 mg/dL (8.5-10.1); Carbon Dioxide 23.8 mmol/L (21.0-32.0); Chloride 108 mmol/L (98-107); Estimated GFR (African America >60 (>=60 mL/min/1.73m^2); Estimated GFR (Non-African Ame >60 (>=60 mL/min/1.73m^2); Globulin 4.3 g/dL; Glucose 72 mg/dL (74-106); Mean Corpuscular HGB Conc 28.9 g/dL (29.9-35.2); Potassium 3.8 mmol/L (3.5-5.1); Sodium 141 mmol/L (136-145); Total Protein 5.6 g/dL (6.4-8.2)
[2024-11-19 08:05] LABS: Glucometer 69 mg/dL (74-106)
[2024-11-19] MEDS: MAGNESIUM OXIDE 400 MG TABLET PO (08:13)
[2024-11-19] MEDS: ORPHENADRINE 60 MG/ 2 ML VIAL IV (08:13)
[2024-11-19] MEDS: DIGOXIN 125 MCG TABLET 250 MCG PO (08:13)
[2024-11-19] MEDS: ENSURE HP 237 ML LIQUID PO (08:13)
[2024-11-19] MEDS: PROSTAT 15 GM PROTEIN/100 CAL 30 ML LIQUID PACKET PO (08:13)
[2024-11-19] MEDS: L. ACIDOPHILUS/L.BULGARICUS 1 PACKET GRAN.PACK PO (08:13)
[2024-11-19] MEDS: APIXABAN 5 MG TABLET PO (08:13)
--- NOTE | 2024-11-19 08:30 | CM.NOTE ---
2nd Important Message From Medicare discussed with pt, pt denies any questions or concern.
[2024-11-19 08:46] LABS: Digoxin 0.9 ng/mL (0.9-2.0)
--- NOTE | 2024-11-19 08:46 | P.DS_ITS ---
DS: Providers Provider Date of admission: 11/14/24 23:54 Primary care physician: Harry Valencia MD Consults: 11/15/24 07:23 Consult to Pharmacy Routine Consulting Provider: Reason for consultation: Please [place] me when Med Rec is Updated Has provider been notified: No Occupational Therapy Eval and Treat Routine Reason for consultation: Only if needed for Rehab Has provider been notified: No Physical Therapy Eval and Treat Routine Reason for consultation: Eval and Treat Has provider been notified: No 11/15/24 08:13 Consult to Cardiology Routine Reason for consultation: a-fib rvr Has provider been notified: No 11/16/24 08:28 Occupational Therapy Eval and Treat Routine Reason for consultation: eval Physical Therapy Eval and Treat Routine Reason for consultation: eval overall and, neck spasm DS: Diagnosis Discharge Diagnosis (1) Acute dehydration: (2) Atrial fibrillation with rapid ventricular response: (3) Sepsis: (4) Diabetes: (5) Hypertension: (6) Hypomagnesemia: (7) Sleep apnea: Plan Admission findings: Atrial fibrillation with RVR, neck pain, altered mental status, severe hypotension with systolics less than 80s despite IV fluid resuscitation, leukocytosis, bandemia, lactic acidosis, elevated liver function test, elevated BNP and needing to be placed on Levophed, meeting criteria for sepsis with septic shock. Sepsis with septic shock and multisystem organ dysfunction(altered mental status, elevated BNP consistent with cardiac dysfunction, elevated liver function test and acute kidney injury stage II), and 2 positive blood cultures for Staph aureus, UA is positive 4 E. coli-overall improved, wbc stable, kidney function returned to normal - cx still pending, will check with outside facility doing the cultures, possible discharge tomorrow if remains stable and both cultures come back positive sensitive to oral agents Altered mental status with nuchal rigidity-back to baseline Acute UTI due to E. coli-culture pending Elevated BNP-jimproved today Iron deficiency anemia-placed on Protonix,-stable Hyponatremia-resolved Acute kidney injury stage II-back at baseline Elevated liver function test likely secondary to the sepsis as outlined, no abdominal pain, - improved Poorly controlled diabetes mellitus this is occurring prior to admission as well as noted during admission, will place on long-acting insulin twice a day as well as sliding scale insulin-adding elvin emeds-improving Lumbar radiculopathy-medications for pain [id number] need rehab Atrial fibrillation with RVR-likely secondary to the sepsis-she has a history of atrial fibrillation in the past, dima mcclain today Severe protein calorie malnutrition-diet supplement Hypomagnesemia-continue supplementation Hypertension by history holding blood pressure medications currently Hypercholesterolemia continue with home medications Depression-continue with medications Admission status: Patient in ICU with severe sepsis with septic shock and multisystem organ dysfunction, requiring vasopressor agents, blood culture already positive for likely MRSA, medically necessary treatment will span 2 midnights. Inpatient status DS: Summary Hospital Course Hospital Course: Patient was seen and evaluated in the emergency room with Admission findings: Atrial fibrillation with RVR, neck pain, altered mental status, severe hypotension with systolics less than 80s despite IV fluid resuscitation, leukocytosis, bandemia, lactic acidosis, elevated liver function test, elevated BNP and needing to be placed on Levophed, meeting criteria for sepsis with septic shock. Levophed is titrated up to keep blood pressure systolic greater than 100, she was given multiple fluid boluses, 5 L, in total. Blood pressure started improving with able to wean the Levophed. Blood culture returned positive after the first day, sensitivities were delayed, culture and urine culture both positive blood culture positive for Staph aureus, not MRSA, urine positive for E. coli but with the resistance pattern, will send patient home with 2 different antibiotics, she is still significantly weak but able to ambulate with a walker. She will need a walker at home and likely needs outpatient rehab and home hea lt. Right blood cell count was elevated on admission is returned to normal her hemoglobin still somewhat anemic, her liver function test are improved her BNP is improving and kidney test have returned to normal. Medication see this. See me in the office next week. Status at Discharge Overall status at discharge: patient is not back to baseline Time Spent with Patient Time attestation: Total time spent providing and/or coordinating discharge services: Time spent: greater than 30 minutes Exam Constitutional Vital Signs, click to edit/add: Last Vital Signs Temp 97.4 F L 11/19/24 08:20 Pulse 81 11/19/24 08:20 Resp 16 11/19/24 08:20 BP 136/72 11/19/24 08:20 Pulse Ox 94 L 11/19/24 08:20 O2 Del Method Room Air 11/19/24 08:20 O2 Flow Rate 4 11/18/24 20:07 Documenting provider has reviewed patient's vital signs: yes Common normals: no apparent distress Lymph Lymphatic: no lymphadenopathy noted Chest Common normals: inspection of chest normal and palpation of chest normal Respiratory Common normals: normal respiratory effort and no retractions Cardio Common normals: regular rate and regular rhythm GI Common normals: Normal to inspection, nondistended, normoactive bowel sounds present Extremity Common normals: abnormal to inspection (1+ edema stable) DS: Data Data Completed and Pending Labs on day of discharge: Labs from last 24 hours 11/19/24 11/19/24 11/18/24 08:02 06:43 20:06 WBC 9.0 RBC 3.65 L Hgb 8.6 L Hct 29.8 L MCV 81.6 MCH 23.6 L MCHC 28.9 L RDW 21.2 H Plt Count 168 MPV 10.7 Neut % (Auto) 69.3 Lymph % (Auto) 21.0 [place] % (Auto) 6.6 Eos % (Auto) 1.2 Baso % (Auto) 0.1 L Neut # (Auto) 6.2 Lymph # (Auto) 1.9 [place] # (Auto) 0.6 Eos # (Auto) 0.1 Baso # (Auto) 0.0 Abs Immat Gran (auto) 0.16 H Imm/Tot Granulo (auto) 1.8 H Sodium 141 Potassium 3.8 Chloride 108 H Carbon Dioxide 23.8 Anion Gap 13.0 BUN 20.0 H Creatinine 0.71 Est GFR ( Amer) >60 Est GFR (Non-Af Amer) >60 BUN/Creatinine Ratio 28.2 Glucose 72 L Calcium 8.3 L Total Bilirubin 1.0 AST 27 ALT 18 Alkaline Phosphatase 160 H NT-Pro-B Natriuret Pep 4463.0 H* Total Protein 5.6 L Albumin 1.3 L Globulin 4.3 Albumin/Globulin Ratio 0.3 Ref Test Result Date POC Glucose 69 L 207 H 11/18/24 11/18/24 11/15/24 16:47 11:44 13:33 WBC RBC Hgb Hct MCV MCH MCHC RDW Plt Count MPV Neut % (Auto) Lymph % (Auto) [place] % (Auto) Eos % (Auto) Baso % (Auto) Neut # (Auto) Lymph # (Auto) [place] # (Auto) Eos # (Auto) Baso # (Auto) Abs Immat Gran (auto) Imm/Tot Granulo (auto) Sodium Potassium Chloride Carbon Dioxide Anion Gap BUN Creatinine Est GFR ( Amer) Est GFR (Non-Af Amer) BUN/Creatinine Ratio Glucose Calcium Total Bilirubin AST ALT Alkaline Phosphatase NT-Pro-B Natriuret Pep Total Protein Albumin Globulin Albumin/Globulin Ratio Ref Test Result Date See scanned report POC Glucose 236 H 128 H 11/14/24 11/14/24 11/14/24 19:27 19:27 19:24 WBC RBC Hgb Hct MCV MCH MCHC RDW Plt Count MPV Neut % (Auto) Lymph % (Auto) [place] % (Auto) Eos % (Auto) Baso % (Auto) Neut # (Auto) Lymph # (Auto) [place] # (Auto) Eos # (Auto) Baso # (Auto) Abs Immat Gran (auto) Imm/Tot Granulo (auto) Sodium Potassium Chloride Carbon Dioxide Anion Gap BUN Creatinine Est GFR ( Amer) Est GFR (Non-Af Amer) BUN/Creatinine Ratio Glucose Calcium Total Bilirubin AST ALT Alkaline Phosphatase NT-Pro-B Natriuret Pep Total Protein Albumin Globulin Albumin/Globulin Ratio Ref Test Result Date See scanned report See scanned report See scanned report POC Glucose 11/14/24 19:24 WBC RBC Hgb Hct MCV MCH MCHC RDW Plt Count MPV Neut % (Auto) Lymph % (Auto) [place] % (Auto) Eos % (Auto) Baso % (Auto) Neut # (Auto) Lymph # (Auto) [place] # (Auto) Eos # (Auto) Baso # (Auto) Abs Immat Gran (auto) Imm/Tot Granulo (auto) Sodium Potassium Chloride Carbon Dioxide Anion Gap BUN Creatinine Est GFR ( Amer) Est GFR (Non-Af Amer) BUN/Creatinine Ratio Glucose Calcium Total Bilirubin AST ALT Alkaline Phosphatase NT-Pro-B Natriuret Pep Total Protein Albumin Globulin Albumin/Globulin Ratio Ref Test Result Date See scanned report POC Glucose Discharge Plan Discharge Disposition: Home Health Service Discharge Medications: New levofloxacin 750 mg tablet 750 mg PO DAILY 10 Days Qty: 10 0RF digoxin 250 mcg (0.25 mg) tablet 250 mcg PO DAILY Qty: 30 11RF cefdinir 300 mg capsule 600 mg PO DAILY Qty: 20 0RF Continued metformin 500 mg tablet 500 mg PO QID ramipril 10 mg capsule 10 mg PO DAILY simvastatin 20 mg tablet 20 mg PO DAILY venlafaxine 75 mg capsule,extended release 24hr 75 mg PO DAILY magnesium oxide 400 mg (241.3 mg magnesium) Tablet 400 mg PO BID Qty: 60 11RF Eliquis 5 mg Tablet 5 mg PO BID Qty: 60 11RF (DME) lancets Misc See Rx Instructions .Route Qty: 200 0RF Rx Instructions: As directed tizanidine 4 mg tablet 4 mg PO BID PRN (Reason: muscle spasticity) pantoprazole 40 mg tablet,delayed release (DR/EC) 40 mg PO DAILY Discontinued metoprolol tartrate 100 mg tablet 100 mg PO BID Outpatient Diagnostics: Basic Metabolic Panel (ONCE) Timeframe: 1 Week Facility: [facility] - Location: Patient Own Location Ordered By: Harry Valencia Print Language: Sami [employer] Dist[employer]/Waste[employer] Analyst Lab Analyst Instructions: Med [facility] Forms: Portal Instructions Follow Up Appointments: Nov.26 @ 10:30am with Dr. Valencia [phone]
--- NOTE | 2024-11-19 09:15 | REH.PTDLY ---
Physical Therapy Daily Note PT Daily Note/Assess Start: 11/17/24 10:25 Freq: Status: Active Protocol: Document 11/19/24 07:55 ANITAGORDON (Rec: 11/19/24 09:15 FRANK [id number]) Physical Therapy Daily Note/Assessment Time In 07:25 Time Out 07:53 Subjective Pt in bed upon arrival. Still complaining of neck pain and increased swelling in arms and legs. Therapeutic Exercise 4 Minutes (minutes) Therapeutic Exercise 0 Units Therapeutic Exercise Reviewed B LE seated exs for pt to continue to perform Treatment throughout the day and at home. Exs include AP, LAQ, marching, hip abd, and hip add squeezes. Therapeutic Activity 23 Minutes (minutes) Therapeutic Activity 2 Units Therapeutic Activity Min A with supine to sit transfers. Sit to stand Comments transfers CGA. Gait training with RW 12 feet into restroom. Pt performs toilet transfers SBA with utilization of grab bar on wall. Pt requires assistance to for pericare as she has IV in wrist that is limiting wrist mobility. Pt stood for 3 mins and then ambulated to sink and stood another 2 mins. Gait training with RW SBA 175 feet with 3 short standing rest breaks. Pt states she feels a little more shaky today in arms. But yet she states she feels stronger overall. Pt sits up in chair post gait with call light at hand. Ice pack on neck for pain relief Total Therapy 27 Minutes Total Physical 2 Therapy Units Daily Note Summary Pt does have noticeable swelling and pitting edema in extremities today. Pt ambulated with RW and needed 3 short standing rest breaks over 175 feet distance. Pt may need a RW at [place] for home, pt can't recall if she has one or not from a family member. Pt is safe to go home with home nicole from a therapy standpoint as everything is all on one floor.
--- NOTE | 2024-11-19 09:25 | CM.NOTE ---
Rounds made with Dr. Valencia, pt will discharge to home today. Pt still c/o feeling a little shaky with ambulation and need for walker when ambulating. Discussed with receptionist airline lounge vs HH services. Pt in agreement to HH services, pt does have a rollator at home. Pt does not care which HH services, just wants to make sure they will be covered by insurance.
--- NOTE | 2024-11-19 09:27 | CM.NOTE ---
Pt does have friend that lives with her and is able to provide assistance if needed.
--- NOTE | 2024-11-19 10:56 | CM.NOTE ---
Spoke with pt regarding HH services, pt is in agreement for services. Pt would like [facility] after looking at [employer]gov 5 star rating. New Referral sent.
[2024-11-19 11:10] LABS: Glucometer 110 mg/dL (74-106)
--- NOTE | 2024-11-19 12:18 | CM.NOTE ---
[facility] able to accept patient.
--- NOTE | 2024-11-19 13:00 | CM.NOTE ---
Updated pt and RN on HH services accepting pt.
--- NOTE | 2024-11-22 14:32 | CM.DCFOLLOWU ---
Person spoke with: Shirley How are you feeling? Much better How is your pain? Just in my neck- I have appt next week (chronic issue) Did you understand your discharge instructions? Yes Do you have any questions about your discharge instructions? No Were you given any prescriptions at discharge? Yes Were you able to get your prescriptions filled? Picking them up today Do you understand how to take your medications as ordered? Yes Do you have any questions about your follow up appointment and do you plan to keep your follow up appointment? No it is scheduled Is there anything else that you would like to discuss? No Questions/Comments/Concerns/Other:
== END 2024-11-19 14:44 | disposition home health service (06) | DRG 871 ==
LOC: ER 23:10 → ICU 23:55 → MS 11-16 13:39
PROVIDERS: Emergency Medicine; Radiology Diagnostic Radiology; Registered Nurse; Admitting Provider Family Medicine; Emergency Provider Emergency Medicine; PCP Family Medicine; Visit Provider Family Medicine
DX: A41.01 Sepsis due to Methicillin susceptible Staphylococcus aureus (principal); E43 Unspecified severe protein-calorie malnutrition; R65.21 Severe sepsis with septic shock; N17.9 Acute kidney failure, unspecified; E87.1 Hypo-osmolality and hyponatremia; E87.20 Acidosis, unspecified; N39.0 Urinary tract infection, site not specified; B96.20 Unspecified Escherichia coli [E. coli] as the cause of diseases classified elsewhere; I48.91 Unspecified atrial fibrillation; D50.9 Iron deficiency anemia, unspecified; E11.65 Type 2 diabetes mellitus with hyperglycemia; E78.00 Pure hypercholesterolemia, unspecified; E83.42 Hypomagnesemia; E86.0 Dehydration; F32.A Depression, unspecified; G47.30 Sleep apnea, unspecified; I10 Essential (primary) hypertension; M54.16 Radiculopathy, lumbar region; Z68.33 Body mass index [BMI] 33.0-33.9, adult; Z90.49 Acquired absence of other specified parts of digestive tract; Z90.710 Acquired absence of both cervix and uterus; Z79.84 Long term (current) use of oral hypoglycemic drugs; Z79.01 Long term (current) use of anticoagulants; Z79.899 Other long term (current) drug therapy; Z88.2 Allergy status to sulfonamides
CPT/HCPCS: 36415; 51702; 62328; 70490; 71045; 80053; 80162; 81001; 82945; 82948; 83540; 83550; 83605; 83735; 83880; 84157; 84436; 84443; 84484; 85007; 85014; 85018; 85025; 85027; 85045; 85610; 85652; 85730; 86140; 86850; 86900; 86901; 87040; 87070; 87075; 87086; 87150; 87186; 87205; 87420; 87804; 87811; 89050; 93005; 93306; 94667; 94668; 94761; 96361; 96365; 96375; 97162; 97165; 97530; 99285; G0328; J0696; J1160; J1720; J1885; J2020; J2360; J2543

== ENCOUNTER 2024-12-28 11:07 | Inpatient (IN) | payer OTHER, SELFPAY ==
[2024-12-28] VITALS (34 sets, daily range): BP systolic 118–159; BP diastolic 43–72; PULSE 53–66; TEMP 36.4–36.8; O2SAT 90–100; BMI 38.1; BMI 38.4
--- NOTE | 2024-12-28 11:25 | ECG_ITS ---
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
[2024-12-28 11:44] LABS: Basophils Percent Auto 0.5 % (0.2-2.0); Eosinophils Percent Auto 0.3 % (0.9-7.0); Immature Granulocytes Abs Auto 0.02 10^3/uL (0.00-0.03); Immature Granulocytes Pct Auto 0.3 % (0.0-0.5); Lymphocytes Absolute Auto 1.9 10^3/uL (1.2-3.8); Lymphocytes Percent Auto 31.5 % (20.5-60.0); Mean Corpuscular HGB Conc 26.9 g/dL (29.9-35.2); Mean Corpuscular Hemoglobin 21.9 pg (26.7-34.0); Mean Corpuscular Volume 81.4 fL (81.0-99.0); Mean Platelet Volume 11.6 fL (9.5-13.5); Monocytes Absolute Auto 0.6 10^3/uL (0.3-0.8); Monocytes Percent Auto 9.1 % (1.7-12.0); Neutrophils Absolute Auto 3.6 10^3/uL (1.4-6.5); Neutrophils Percent Auto 58.3 % (43.0-75.0); Platelet Count 239 10^3/uL (150-450); Red Cell Distribution Width 19.1 % (11.0-15.0); White Blood Count 6.2 10^3/uL (4.0-11.0)
[2024-12-28 11:49] LABS: Hematocrit 19.3 % (36.0-48.0); Hemoglobin 5.2 g/dL (12.0-16.0)
--- NOTE | 2024-12-28 11:52 | XR_ITS ---
The [address] [address] Patient Name: CONNIE WISE MRN: [id number] date: 1955 Sex: F Assigned Patient Location: ED.MAIN Current Patient Location: ER Accession/Order Number: [id number] Exam Date: 12/28/2024 11:41 Report Date: 12/28/2024 12:03 At the request of: LAMAR SALOMON Procedure: XR chest 2V EXAMINATION: XR chest 2V HISTORY: shortness of breath COMPARISON: 11/14/2024 TECHNIQUE: PA and lateral FINDINGS: LUNGS: Moderate left basilar infiltrate completely obscures the hemidiaphragm and partially obscures the heart border VASCULATURE: Mildly increased pulmonary vasculature. PLEURA: Tiny right and mild left pleural effusions CARDIAC: No cardiomegaly or cardiac silhouette abnormality. MEDIASTINUM: No visible mass or adenopathy. BONES: No fracture or visible bone lesion. OTHER: Negative. XR/XR chest 2V IMPRESSION: Moderate left basilar infiltrate, atelectasis versus pneumonia Mild pulmonary vascular congestion. Electronically authenticated by: MAISHA ALBRIGHT Date: 12/28/2024 12:03
[2024-12-28 11:59] LABS: Red Blood Count 2.37 10^6/uL (4.20-5.40)
[2024-12-28 12:09] LABS: Anion Gap 17.4; BUN Creatinine Ratio 29.9; Calcium 8.5 mg/dL (8.5-10.1); Chloride 104 mmol/L (98-107); Estimated GFR (African America 37 (>=60 mL/min/1.73m^2); Estimated GFR (Non-African Ame 31 (>=60 mL/min/1.73m^2); Glucose 225 mg/dL (74-106); Potassium 5.4 mmol/L (3.5-5.1); Sodium 141 mmol/L (136-145); Troponin I High Sensitivity 11.3 pg/mL (4.0-51.3)
--- NOTE | 2024-12-28 12:09 | CT_ITS ---
[address] [address] Patient Name: CONNIE WISE MRN: [id number] date: 1955 Sex: F Assigned Patient Location: ER Current Patient Location: ER Accession/Order Number: [id number] Exam Date: 12/28/2024 12:17 Report Date: 12/28/2024 13:28 At the request of: LAMAR SALOMON Procedure: CT chest wo con EXAMINATION: CT chest wo con, CT abdomen pelvis wo con HISTORY: abn chest xray COMPARISON: No relevant comparison available. TECHNIQUE: Axial, Coronal, and Sagittal CT images were obtained without IV contrast material. Dose reduction techniques were achieved by using automated exposure control and/or adjustment of mA and/or kV according to patient size and/or use of iterative reconstruction technique. FINDINGS: LUNGS: Partial consolidation of both lower lobes, left greater than right with presence of air bronchograms PLEURA: 4.2 cm right and 6.4 cm left pleural effusions VASCULATURE: No abnormal prominence. CLARENCE: No mass or adenopathy. MEDIASTINUM: No mass or adenopathy. CARDIAC: No enlargement or pericardial effusion Coronary arteries: Moderate calcifications CHEST WALL: No mass or axillary adenopathy. LIVER: Mildly nodular liver contour. No focal mass BILIARY: Surgical clips from cholecystectomy PANCREAS: Diffuse pancreatic atrophy SPLEEN: No enlargement or focal lesion. ADRENALS: No mass or enlargement. KIDNEYS: No mass, obstruction, or calcification. BOWEL/MESENTERY: Moderate ascites. Nonobstructive bowel gas pattern. AORTA/VASCULAR: No aortic aneurysm. Mild to moderate atherosclerosis RETROPERITONEUM: No mass or adenopathy. LYMPH NODES: No adenopathy. URINARY BLADDER: No visible focal wall thickening, lesion, or calculus. PELVIC ORGANS: Hysterectomy ABDOMINAL WALL: No mass or hernia. BONES: No bony lesion or fracture. OTHER: Negative. CT/CT chest wo con IMPRESSION: Bilateral pleural effusions with partial basilar consolidation, left greater than right. Nodular liver contour suggesting cirrhosis with moderate ascites Electronically authenticated by: MAISHA ALBRIGHT Date: 12/28/2024 13:28
--- NOTE | 2024-12-28 12:09 | CT_ITS ---
[address] [address] Patient Name: CONNIE WISE MRN: [id number] date: 1955 Sex: F Assigned Patient Location: ER Current Patient Location: ER Accession/Order Number: [id number] Exam Date: 12/28/2024 12:17 Report Date: 12/28/2024 13:28 At the request of: LAMAR SALOMON Procedure: CT abdomen pelvis wo con EXAMINATION: CT chest wo con, CT abdomen pelvis wo con HISTORY: abn chest xray COMPARISON: No relevant comparison available. TECHNIQUE: Axial, Coronal, and Sagittal CT images were obtained without IV contrast material. Dose reduction techniques were achieved by using automated exposure control and/or adjustment of mA and/or kV according to patient size and/or use of iterative reconstruction technique. FINDINGS: LUNGS: Partial consolidation of both lower lobes, left greater than right with presence of air bronchograms PLEURA: 4.2 cm right and 6.4 cm left pleural effusions VASCULATURE: No abnormal prominence. CLARENCE: No mass or adenopathy. MEDIASTINUM: No mass or adenopathy. CARDIAC: No enlargement or pericardial effusion Coronary arteries: Moderate calcifications CHEST WALL: No mass or axillary adenopathy. LIVER: Mildly nodular liver contour. No focal mass BILIARY: Surgical clips from cholecystectomy PANCREAS: Diffuse pancreatic atrophy SPLEEN: No enlargement or focal lesion. ADRENALS: No mass or enlargement. KIDNEYS: No mass, obstruction, or calcification. BOWEL/MESENTERY: Moderate ascites. Nonobstructive bowel gas pattern. AORTA/VASCULAR: No aortic aneurysm. Mild to moderate atherosclerosis RETROPERITONEUM: No mass or adenopathy. LYMPH NODES: No adenopathy. URINARY BLADDER: No visible focal wall thickening, lesion, or calculus. PELVIC ORGANS: Hysterectomy ABDOMINAL WALL: No mass or hernia. BONES: No bony lesion or fracture. OTHER: Negative. CT/CT abdomen pelvis wo con IMPRESSION: Bilateral pleural effusions with partial basilar consolidation, left greater than right. Nodular liver contour suggesting cirrhosis with moderate ascites Electronically authenticated by: MAISHA ALBRIGHT Date: 12/28/2024 13:28
[2024-12-28 12:17] LABS: Hematocrit 18.1 % (36.0-48.0); Hemoglobin 4.9 g/dL (12.0-16.0)
[2024-12-28 12:37] LABS: Alanine Aminotransferase 11 U/L (14-59); Albumin Globulin Ratio 0.5; Albumin Level 2.4 g/dL (3.4-5.0); Alkaline Phosphatase 105 U/L (46-116); Aspartate Amino Transferase 17 U/L (15-37); Bilirubin Direct 0.5 mg/dL (0.0-0.2); Bilirubin Total 1.1 mg/dL (0.2-1.0); Globulin 4.4 g/dL; Total Protein 6.8 g/dL (6.4-8.2)
[2024-12-28] MEDS: 0.9 % SODIUM CHLORIDE 250 ML 10 ML IV (13:35)
--- NOTE | 2024-12-28 14:14 | ED.GENADUL1 ---
HPI HPI - General Adult General Chief complaint: Shortness of Breath/Dyspnea Stated complaint: WATER RETENTION PER PT, SHORT OF BREATH Time Seen by Provider: 12/28/24 11:25 Source: patient Mode of arrival: Wheelchair Limitations: no limitations History of Present Illness HPI narrative: 69-year-old female to the emergency department chief complaint of shortness of breath. She has been having increasing dyspnea with exertion has been ongoing for several weeks. She believes she is retaining fluid. She was seen by her PCP today who sent her to the emergency department for further evaluation of this. She does have a history of congestive heart failure and had multiple changes to her medications recently. She reports darker than normal stools since October. She reports some abdominal discomfort and a feeling of distention. She reports early satiety. She denies any chest pain. She denies any fever, sweats, chills, cough. Related Data Home Medications ?Medication ?Instructions ?Recorded ?Confirmed metformin 500 mg tablet 1,000 mg PO BID 05/23/23 12/28/24 ramipril 10 mg capsule 10 mg PO DAILY 05/23/23 12/28/24 simvastatin 20 mg tablet 20 mg PO DAILY 05/23/23 12/28/24 venlafaxine 75 mg capsule,extended 75 mg PO DAILY 05/23/23 12/28/24 release 24 hr pantoprazole 40 mg tablet,delayed 40 mg PO DAILY 11/15/24 12/28/24 release amiodarone 200 mg tablet 200 mg PO BID 12/28/24 12/28/24 furosemide 20 mg tablet 20 mg PO DAILY 12/28/24 12/28/24 metoprolol succinate 25 mg 25 mg PO DAILY 12/28/24 12/28/24 tablet,extended release 24 hr ondansetron 4 mg disintegrating 4 mg PO Q8H PRN nausea and vomiting 12/28/24 12/28/24 tablet Previous Rx's ?Medication ?Instructions ?Recorded apixaban 5 mg tablet (Eliquis) 5 mg PO BID #60 tabs 05/25/23 magnesium oxide 400 mg (241.3 mg 400 mg PO BID #60 tabs 05/25/23 magnesium) tablet lancets #200 ea 11/02/24 Allergies Allergy/AdvReac Type Severity Reaction Status Date / Time Sulfa (Sulfonamide AdvReac Mild Hives Verified 12/28/24 11:13 Antibiotics) Opioid HPI Opioid Management Most Recent Opioid Data: Last Pain Scale 0 11/19/24 06:16 11/19/24 Last Pain Intensity 5 11/16/24 08:29 11/16/24 Last ORT Total Score 1 11/15/24 00:41 11/15/24 Last ORT Risk Category Low Risk 11/15/24 00:41 11/15/24 Review of Systems ROS Status of ROS 10 or more systems reviewed and unremarkable except as noted in history and below [facility] Medical History (Updated 12/28/24 @ 14:52 by Vicente Varela MD) Acute dehydration ?E86.0 - Dehydration (ICD-10) Acute kidney injury ?N17.9 - Acute kidney failure, unspecified (ICD-10) Septic shock ?A41.9 - Sepsis, unspecified organism (ICD-10) ?R65.21 - Severe sepsis with septic shock (ICD-10) Atrial fibrillation with rapid ventricular response ?I48.91 - Unspecified atrial fibrillation (ICD-10) Sepsis ?A41.9 - Sepsis, unspecified organism (ICD-10) Hypertension ?I10 - Essential (primary) hypertension (ICD-10) Diabetes ?E11.9 - Type 2 diabetes mellitus without complications (ICD-10) Dyslipidemia ?E78.5 - Hyperlipidemia, unspecified (ICD-10) Hypomagnesemia ?E83.42 - Hypomagnesemia (ICD-10) Acute hyperglycemia ?R73.9 - Hyperglycemia, unspecified (ICD-10) Cervical cancer ?C53.9 - Malignant neoplasm of cervix uteri, unspecified (ICD-10) Osteoarthritis ?M19.90 - Unspecified osteoarthritis, unspecified site (ICD-10) Sleep apnea ?G47.30 - Sleep apnea, unspecified (ICD-10) Kidney stones ?N20.0 - Calculus of kidney (ICD-10) Cataract ?H26.9 - Unspecified cataract (ICD-10) Palpitations ?R00.2 - Palpitations (ICD-10) Anemia ?D64.9 - Anemia, unspecified (ICD-10) Rotator cuff arthropathy of left shoulder ?M12.812 - Other specific arthropathies, not elsewhere classified, left shoulder (ICD-10) Atrial fibrillation with rapid ventricular response ?I48.91 - Unspecified atrial fibrillation (ICD-10) Surgical History H/O repair of rotator cuff ?Z98.890 - Other specified postprocedural states (ICD-10) H/O section ?Z98.891 - History of uterine scar from previous surgery (ICD-10) History of tonsillectomy ?Z90.89 - Acquired absence of other organs (ICD-10) History of cholecystectomy ?Z90.49 - Acquired absence of other specified parts of digestive tract (ICD-10) History of appendectomy ?Z90.49 - Acquired absence of other specified parts of digestive tract (ICD-10) H/O: hysterectomy ?Z90.710 - Acquired absence of both cervix and uterus (ICD-10) Family History Grandmother Family history of cancer Father Family history of diabetes mellitus Grandfather Family history of cancer Brother Family history of hypertension Social History Within the past year, how often did you have a drink containing alcohol: monthly or less Within the past year, how often did you have six or more drinks on one occasion: never Smoking status: Never smoker Non-prescribed substance use: denies use 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 Highest level of school completed/degree received: Bachelor's degree Do you want help with school or training: No Are you now , , , , never or living with a partner: never In a typical week, how many times do you talk on the telephone with family, friends, or neighbors: 3 or more times per week How often do you get together with friends or relatives: once per week How often do you attend episcopalian or advent services: 4 or more times per year Do you belong to any clubs or organizations such as episcopalian groups unions, fraternal or athletic groups, or school groups: yes Total score: 3 Score interpretation: A score of greater than or equal to 2 indicates the lowest level of social isolation. Little interest or pleasure in doing things: not at all Feeling down, depressed, or hopeless: not at all Feel stressed/tense/nervous/anxious/difficulty sleeping: not at all Life stressors: recent of family or friend Due to disability, difficulty making decisions: No Exam Narrative Exam Narrative: VITALS: I have reviewed the triage vital signs. GENERAL: Chronically ill-appearing adult female in no distress NEURO: Alert and oriented. Moves all extremities. Face is symmetric and expressive. EYES: PERRL. No scleral icterus or conjunctival injection. No discharge. HENT: Normocephalic, atraumatic. Hearing is grossly intact. Nares grossly patent and without discharge. Mucous membranes moist. NECK: No JVD. Patient moves neck without restriction. CARDIO: Rhythm regular. Normal rate. No murmur, rub, or gallop. Pulses equal bilaterally in the upper and lower extremity. 2+ edema to lower extremities bilaterally PULM: Lungs clear to auscultation in all gray. No wheezes, rales, or rhonchi. No conversational dyspnea. No splinting, stridor, or accessory muscle use. GI/: Abdomen is soft. Trace ascites. Normoactive bowel sounds. EXTREMITIES: Symmetric muscle bulk. No joint swelling. No clubbing, cyanosis, or deformity. SKIN: Warm and dry. Normal turgor. No rash or lesions appreciated. PSYCH: Mood, affect, and interaction is appropriate to the setting. Constitutional Vital Signs, click to edit/add: Last Vital Signs Temp 97.8 F 12/28/24 14:07 Pulse 56 L 12/28/24 14:07 Resp 18 12/28/24 14:07 BP 144/49 H 12/28/24 14:07 Pulse Ox 98 12/28/24 14:07 O2 Del Method Room Air 12/28/24 11:44 Course Vital Signs Vital signs: Vital Signs Temperature 97.6 F 12/28/24 11:13 Pulse Rate 58 L 12/28/24 11:13 Respiratory Rate 18 12/28/24 11:13 Blood Pressure 137/51 12/28/24 11:13 Pulse Oximetry 100 12/28/24 11:13 Oxygen Delivery Method Room Air 12/28/24 11:13 Temperature 97.8 F 12/28/24 14:07 Pulse Rate 56 L 12/28/24 14:07 Respiratory Rate 18 12/28/24 14:07 Blood Pressure 144/49 H 12/28/24 14:07 Pulse Oximetry 98 12/28/24 14:07 Oxygen Delivery Method Room Air 12/28/24 11:44 Medical Decision Making [facility] Narrative Medical decision making narrative: 69-year-old female to the emergency department with chief complaint of increasing dyspnea with exertion. Vital stable, the patient is afebrile. She does have some abdominal tenderness, early satiety, ascites. Will obtain imaging of the abdomen. Her chest x-ray is abnormal with a question of a consolidation, we will proceed with CT as well for better characterization. EKG without STEMI. Lab work reviewed and noted. She does have an KHALIF today. Her BNP is elevated but far less than previous visits. Her troponin is normal. She is mildly hyperkalemic without EKG changes suggestive of cardiac effects. CT scan concerning for cirrhosis with ascites. She has bilateral pleural effusions with questions of consolidation. She has no leukocytosis, fever, cough I doubt this is pneumonia. Her hemoglobin however today is significantly low. This is a new finding for the patient. She consents verbally for blood transfusion, reports she has had 1 in the past. Patient has had a EGD and colonoscopy previously. She reports that she had a bleeding vessel in her stomach before. She has had some dark stools. She may be a chronic GI bleed. 2 units of packed red blood cells were ordered for the patient. Case was discussed with Dr. Valencia who agrees admit this patient for further treatment and evaluation. Medical Records Medical records reviewed: Yes I reviewed the patient's medical records Lab Data Lab results reviewed: Yes I reviewed the patient's lab results Labs: Lab Results 12/28/24 12/28/24 Range/Units 11:32 12:09 WBC 6.2 (4.0-11.0) 10^3/uL RBC 2.37 L (4.20-5.40) 10^6/uL Hgb 5.2 L* 4.9 L* (12.0-16.0) g/dL Hct 19.3 L* 18.1 L* (36.0-48.0) % MCV 81.4 (81.0-99.0) fL MCH 21.9 L (26.7-34.0) pg MCHC 26.9 L (29.9-35.2) g/dL RDW 19.1 H (11.0-15.0) % Plt Count 239 (150-450) 10^3/uL MPV 11.6 (9.5-13.5) fL Neut % (Auto) 58.3 (43.0-75.0) % Lymph % (Auto) 31.5 (20.5-60.0) % [place] % (Auto) 9.1 (1.7-12.0) % Eos % (Auto) 0.3 L (0.9-7.0) % Baso % (Auto) 0.5 (0.2-2.0) % Neut # (Auto) 3.6 (1.4-6.5) 10^3/uL Lymph # (Auto) 1.9 (1.2-3.8) 10^3/uL [place] # (Auto) 0.6 (0.3-0.8) 10^3/uL Eos # (Auto) 0.0 (0.0-0.7) 10^3/uL Baso # (Auto) 0.0 (0.0-0.1) 10^3/uL Abs Immat Gran (auto) 0.02 (0.00-0.03) 10^3/uL Imm/Tot Granulo (auto) 0.3 (0.0-0.5) % Sodium 141 (136-145) mmol/L Potassium 5.4 H (3.5-5.1) mmol/L Chloride 104 (98-107) mmol/L Carbon Dioxide 25.0 (21.0-32.0) mmol/L Anion Gap 17.4 BUN 50.0 H (7.0-18.0) mg/dL Creatinine 1.67 H (0.55-1.02) mg/dL Est GFR ( Amer) 37 L (>=60 mL/min/1.73m^2) Est GFR (Non-Af Amer) 31 L (>=60 mL/min/1.73m^2) BUN/Creatinine Ratio 29.9 Glucose 225 H (74-106) mg/dL Calcium 8.5 (8.5-10.1) mg/dL Total Bilirubin 1.1 H (0.2-1.0) mg/dL Direct Bilirubin 0.5 H (0.0-0.2) mg/dL AST 17 (15-37) U/L ALT 11 L (14-59) U/L Alkaline Phosphatase 105 (46-116) U/L Troponin I High Sens 11.3 (4.0-51.3) pg/mL NT-Pro-B Natriuret Pep 897.0 (<=900.0) pg/mL Total Protein 6.8 (6.4-8.2) g/dL Albumin 2.4 L (3.4-5.0) g/dL Globulin 4.4 g/dL Albumin/Globulin Ratio 0.5 Blood Type O Positive Antibody Screen Negative Crossmatch See Detail Imaging Data CT scan - chest: Attestation: I have reviewed the pertinent imaging results. Radiologist's impression: ITS Impressions Chest X-Ray 12/28/24 11:52 IMPRESSION: Moderate left basilar infiltrate, atelectasis versus pneumonia Mild pulmonary vascular congestion. Electronically authenticated by: MAISHA ALBRIGHT Date: 12/28/2024 12:03 Abdomen/Pelvis CT 12/28/24 12:09 IMPRESSION: Bilateral pleural effusions with partial basilar consolidation, left greater than right. Nodular liver contour suggesting cirrhosis with moderate ascites Electronically authenticated by: MAISHA ALBRIGHT Date: 12/28/2024 13:[address] 12/28/24 12:09 IMPRESSION: Bilateral pleural effusions with partial basilar consolidation, left greater than right. Nodular liver contour suggesting cirrhosis with moderate ascites Electronically authenticated by: MAISHA ALBRIGHT Date: 12/28/2024 13:28 ECG Data Attestation: I personally reviewed and interpreted this ECG as follows: (Normal sinus rhythm. No STEMI. Normal QTc) Critical Care Time Critical Care Time Total Critical Care Time: 35 Attestation: Critical Care Procedure Note Authorized and Performed by: Vicente Varela DO Total critical care time: 35 MIN Due to a high probability of clinically significant, life threatening deterioration, the patient required my highest level of preparedness to intervene emergently and I personally spent this critical care time directly and personally managing the patient. This critical care time included obtaining a history; examining the patient; pulse oximetry; ordering and review of studies; arranging urgent treatment with development of a management plan; evaluation of patient's response to treatment; frequent reassessment; and, discussions with other providers. This critical care time was performed to assess and manage the high probability of imminent, life-threatening deterioration that could result in multi-organ failure. It was exclusive of separately billable procedures and treating other patients and teaching time. Please see MDM section and the rest of the note for further information on patient assessment and treatment. Discharge Plan Discharge Chief Complaint: Shortness of Breath/Dyspnea Clinical Impression: Symptomatic anemia, Acute kidney failure, Acute hyperkalemia, Cirrhosis of liver with ascites, Pleural effusion, Edema of both lower legs Patient Disposition: Admitted As Inpatient Time of Disposition Decision: 14:51 Condition: Fair Discharge Date/Time: 12/28/24 14:25
--- OUTSIDE RECORDS SUMMARY | 2024-12-28 14:35 | XMS_ITS | CCD ---
Author Organization [facility] Er ion [facility] Care Team Providers Care Commercial Field Inspector Name Role Phone Soco Hernandez Unavailable CoxAshley [...] Consulting Unavailable Maryjane Valencia Primary Care Physician [phone] Manoj Damon Admitting Unavailable NillManoj Attending Unavailable HayHoward Admitting Unavailable HayHoward Attending Unavailable ZieberLeland Admitting Unavailable ZiebLeland brown Attending Unavailable Manoj DAMON Attending Unavailable Maryjane Valencia Referring Unavailable Manoj DAMON Attending Unavailable Manoj DAMON Attending Unavailable JOSE GROGERS Attending Unavailable JOSE GROGERS Attending Unavailable AYDIN ESPINOZA Attending Unavailable ROGERS CATALAN Referring Unavailable ROGERS CATALAN Admitting Unavailable ROGERS CATALAN Attending Unavailable ROGERS CATALAN Referring Unavailable JOSE GROGERS Noe Referring Unavailable JOSE GROGERS Noe Referring Unavailable JOSE GROGERS Noe Referring Unavailable JOSE GROGERS Noe Referring Unavailable AYDIN ESPINOZA Attending Unavailable Allergies Allergy Classification Reported Allergen(s) Allergy Type Date of Onset Reaction(s) Facility (1 source) Sulfacetamide Drug Allergy [facility] Other (1 source) Sulfonamides (Antibiotic) Drug allergy (disorder) 11-21-19 08 [facility] Repository (3 sources) Sulfonamides (Antibiotic); Translations: [sulfa drugs] Drug allergy [facility] (disorder) [facility] [place] (1 source) Sulfacetamide Drug Allergy 02-17-20 [facility] Repository (1 source) Sulfonamides (Antibiotic); Translations: [SULFA (SULFONAMIDE ANTIBIOTICS)] Propensity to adverse reactions to drug (disorder) 05-29-20 [facility] Repository Medications Current Medications Medication Drug Class(es) Dates Sig (Normalized) Sig (Original) [id number] 200 actuat albuterol 0.09 mg/actuat metered dose inhaler (1 source) beta2-Adrenergic Agonist Start: 02-16-2022 take 2 puff(s) by inhalation every four to six hours as needed Albuterol Sulfate HFA 108 (90 Base) MCG/ACT 2 puffs as needed Inhalation every 4-6 hours for 14 days Jan, Active apixaban 5 mg oral tablet (2 sources) Factor Xa Inhibitor Start: 09-28-2024 take 1 tablet by mouth twice daily Eliquis 5 mg oral tablet 5 mg = 1 tab(s), Oral, BID, Refills(s) 0 Start Date: 09/28/24 Status: Ordered Aspir-81 (2 sources) Aspir-81 Active dextromethorphan hydrobromide 1.5 mg/ml / pyrilamine maleate 1.5 mg/ml oral solution (1 source) Uncompetitive Q-vewgwq-X-aspartate Receptor Antagonist, Sigma-1 Agonist Start: 02-16-2022 take 10 mL by mouth every eight hours [place] DM 7.5-7.5 MG/5ML 10 mL Orally every 8 hours for 5 days Jan, Active Diclofenac 75mg Tab-DR (2 sources) Start: 04-28-2020 take 1 tablet by mouth [...] Active magnesium oxide 400 mg oral tablet (2 sources) Start: 09-28-2024 take 1 tablet by mouth twice daily magnesium oxide 400 mg Tab 400 mg = 1 tab(s), Oral, BID, Refills(s) 0 Start Date: 09/28/24 Status: Ordered metFORMIN hydrochloride 500 mg oral tablet (5 sources) Biguanide Start: 04-28-2020 take 2 tablets by mouth twice daily metformin 500 mg Tab 1,000 mg = 2 tab(s), Oral, BID, Refills(s) 0 Start Date: 04/28/20 Status: Ordered Glucophage 500 M G Orally Not-Taking metFORMIN HCl Ac tive metoprolol tartrate 50 mg oral tablet (2 sources) beta-Adrenergic Samantha Start: 09-28-2024 take 1 tablet [...] pantoprazole 40 mg delayed release oral tablet (2 sources) Proton Pump Inhibitor Start: 09-28-2024 take 1 tablet by mouth once daily Pantoprazole [address] Tab 40 mg = 1 tab(s), Oral, Daily, Refills(s) 0 Start Date: 09/28/24 Status: Ordered pioglitazone 30 mg oral tablet (2 sources) Peroxisome Proliferator Receptor alpha Agonist, Peroxisome Proliferator Receptor gamma Agonist, Thiazolidinedione Actos 30 MG Orally Active ramipril 10 mg oral capsule (4 sources) Angiotensin Converting Enzyme Inhibitor Start: 04-28-2020 take 1 capsule by mouth once daily ramipril 10 mg Cap 10 mg = 1 cap(s), Oral, Daily, Refills(s) 0 Start Date: 04/28/20 Status: Ordered simvastatin 20 mg oral tablet (3 sources) HMG-CoA Reductase Inhibitor Start: 04-28-2020 take 1 tablet by mouth once daily at bedtime simvastatin 20 mg Tab 20 mg = 1 tab(s), Oral, Once a day (at bedtime), Refills(s) 0 Start Date: 04/28/20 Status: Ordered Simvastatin Acti ve tiZANidine 4 mg oral tablet (4 sources) Central alpha-2 Adrenergic Agonist Start: 09-28-2024 take 1 tablet by mouth every eight hours as needed for muscle spasms Zanaflex 4 mg Tab 4 mg = 1 tab(s), Oral, q8hr, PRN muscle spasm, Refills(s) 0 Start Date: 09/28/24 Status: Ordered Zanaflex 4 MG Or ally Active 24 hr venlafaxine 75 mg extended release oral capsule (4 sources) Serotonin and Norepinephrine Reuptake Inhibitor Start: [...] every six hours as needed for pain [place] 5-325 MG 1 tablet Orally every 6 hrs as needed for pain Jun, Not-Taking Start: 07-09-2015 take 1 tablet by abelino th every six hours as needed for pain [place] 5-325 MG 1 tablet Orally every 6 [...] Documented Da te Episodic/Chronic Cancer of uterus (2 sources) Endometrial carcinoma 04-28-2020 Chronic Cardiac dysrhythmias (4 sources) Atrial fibrillation; Translations: [Paroxysmal atrial fibrillation] Onset: 07-10-2024 09-28-2024 Chronic Cardiac dysrhythmias (2 sources) Palpitations; Translations: [Palpitations] Onset: 10-08-2024 Episodic Chronic kidney disease (3 sources) Chronic kidney disease, unspecified; Translations: [Chronic kidney disease] Onset: 09-30-2022 04-28-2020 Chronic Deficiency and other anemia (1 source) Anemia, unspecified; Translations: [ANEMIA UNSPECIFIED] Onset: 09-30-2022 Episodic Diabetes mellitus with complications (4 sources) Type 2 diabetes mellitus with hyperglycemia; Translations: [TYPE 2 DM W/HYPERGLYCEMIA] Onset: 09-24-2022 Chronic Diabetes mellitus without complication (2 sources) Diabetes mellitus 04-28-2020 Chronic Disorders of lipid metabolism (8 sources) Pure hypercholesterolemi a, unspecified; Translations: [Hyperlipidemia, unspecified] Onset: 09-30-2022 09-28-2024 Chronic Diverticulosis and diverticulitis (2 sources) Diverticular disease 04-28-2020 Chronic Essential hypertension (3 sources) Essential (primary) hypertension; Translations: [Benign essential hypertension] Onset: 09-30-2022 04-28-2020 Chronic Gastrointestinal hemorrhage (3 sources) Melena; Translations: [Melena] Onset: 10-03-2024 Episodic Heart valve disorders (2 sources) Mitral and aortic incompetence 09-28-2024 Chronic Nutritional deficiencies (1 source) Vitamin D deficiency, unspecified; Translations: [VITAMIN D DEFICIENCY UNSPECIFIED] Onset: 09-30-2022 Chronic Other and ill-defined heart disease (2 sources) Left ventricular hypertrophy 09-28-2024 Chronic Other eye disorders (2 sources) Tear film insufficiency 04-28-2020 Episodic Other gastrointestinal disorders (3 sources) Altered bowel function; Translations: [Change in bowel habit] Onset: 10-03-2024 Episodic Other gastrointestinal disorders (2 sources) H/O: colitis 09-28-2024 Episodic Other gastrointestinal disorders (2 sources) Occult blood in stools 05-09-2020 Episodic Other nutritional; endocrine; and metabolic disorders (2 sources) Body mass index 30+ - obesity 10-03-2024 Chronic Other nutritional; endocrine; and metabolic disorders (2 sources) Obese class III 09-28-2024 Chronic Saira-; endo-; and myocarditis; cardiomyopathy (except that caused by tuberculosis or sexually transmitted disease) (4 sources) Heart valve disorder; Translations: [Endocarditis, valve unspecified] Onset: 04-19-2024 09-28-2024 Chronic Residual codes; unclassified (2 sources) Requires vaccination 04-28-2020 Episodic Spondylosis; intervertebral disc disorders; other back problems (2 sources) 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 Chronic Unclassified (2 sources) Other persistent atrial fibrillation; Translations: [Other persistent atrial fibrillation] Onset: 07-10-2024 Past or Other Problems Problem Classification Problem Date Documented Da te Episodic/Chronic Deficiency and other anemia (3 sources) Anemia; Translations: [Anemia, unspecified] Onset: 11-08-2023 Episodic Immunizations and screening for infectious disease (2 [...] Value Interpretation Reference Range Facility Office Visiton 12-18-2024 Follow-up visit [id number] Shirley Brian 1955 F Date Provider Department Center 12/18/2024 ROGERS BERNAL Family History Problem Relation Age of Onset No Known Problems Mother Diabetes Father No Known Problems Sister No Known Problems Brother Family Status - Relation Status Age at Mother Father Sister Brother Level of Service:68865 IN OFFICE/OUTPATIENT ESTABLISHED MOD MDM 30 MIN Normal [facility] Reminderson 11-28-2024 Reminders Reminders From: Skye Concepcion LPN To: N - Clinical; Sent: 11/28/2024 09:09:41 EST Show up: 10/08/2029 07:00:00 EST Subject: colonoscopy recall Due Date/Time: 11/07/2029 07:00:00 EST Reminder/Recall Patient due for surveillance colonoscopy 11/07/2029 due to history of tubular adenoma. Normal [facility] Aerobic Cultureon 11-15-2024 Aerobic Culture No Growth 2 Days No Anaerobes Isolated 3 Days Gram Stain Result No Bacteria Seen Rare White Blood Cells PERFORMED BY: [place] [address] PATHOLOGIST DESIGN DRAFTER HARRIET CHOWDHURY M.D. Normal [facility] Comment on above: Performed By: #### G S, AERC #### [address] [address] [facility] Gram Stainon 11-15-2024 Microscopic observation Gram stain Nom (Unsp spec) Gram Stain Result No Bacteria Seen Rare White Blood Cells PERFORMED BY: [place] [address] PATHOLOGIST DESIGN DRAFTER HARRIET CHOWDHURY M.D. Normal [facility] Comment on above: Performed By: #### G S, AERC #### [address] [address] [facility] Blood Cultureon 11-14-2024 Bacteria identified Cx Nom (Bld) Specimen collected on 11/14/24 Gram Stain Gram Positive Cocci ORGANISM: Staphylococcus aureus (O:STAAUR) Organism Comments For KAL Refer to Final Report of Blood Culture Collected Date 11/14/24 PERFORMED BY: [place] [address] PATHOLOGIST DESIGN DRAFTER HARRIET CHOWDHURY M.D. Normal [facility] Comment on above: Performed By: #### C UBLD #### [address] [address] [place] Bacteria identified Cx Nom (Bld) Specimen collected on 11/14/24 Gram Stain Gram Positive Cocci ORGANISM: Staphylococcus aureus (O:STAAUR) Aerobic KAL Charge (PCMIC38) ---- SUSCEPTIBILITY --- ORGANISM: O:STAAUR ANTIBIOTIC INTERPRETATION KAL Azithromycin S <2 Ceftaroline S <0.5 Ciprofloxacin S <1 Daptomycin S <0.5 Levofloxacin S <1 Linezolid S 2 Oxacillin S <0.25 Penicillin S <0.03 Tetracycline S <4 Trimethoprim/Sulfamet hoxazole S <0.5 Vancomycin S 1 S = SUSCEPTIBLE I = INTERMEDIATE R = RESISTANT BLANK = DATA NOT AVAILABLE, OR DRUG NOT ADVISABLE OR TESTED R* = RESISTANCE DUE TO EXTENDED SPECTRUM BETA-LACTAMASES ESBL = EXTENDED SPECTRUM BETA-LACTAMASE TFG = THYMIDINE-DEPENDENT STRAIN MICHAELLE = BETA-LACTAMASE POSITIVE IB = INDUCIBLE BETA-LACTAMASE. APPEARS IN PLACE OF 'S' WITH SPECIES KNOWN TO POSSESS INDUCIBLE BETA-LACTAMASES. POTENTIALLY THEY MAY BECOME RESISTANT TO ALL B-LACTAM DRUGS. PERFORMED BY: [place] [address] PATHOLOGIST DESIGN DRAFTER HARRIET CHOWDHURY M.D. Normal [facility] Comment on above: Performed By: #### C UBLD #### [address] Urine Cultureon 11-14-2024 Bacteria identified Cx Nom (U) ORGANISM: Escherichia coli (O:ESCCOL) Darden Count 50,000 Aerobic KAL Charge (NMIC56) ---- SUSCEPTIBILITY --- ORGANISM: O:ESCCOL ANTIBIOTIC INTERPRETATION KAL Amikacin S <16 Amoxacillin/K Clavulanate S <8 Ampicillin S <8 Ampicillin/Sulbactam S <4 Aztreonam S <4 Cefazolin S <2 Cefepime S <2 Ceftazidime S <1 Ceftazidime/Avibactam S <4 Ceftolozane/Tazobacta m S <2 Ceftriaxone S <1 Cefuroxime S <4 Ciprofloxacin R >2 Ertapenem S <0.5 Gentamicin S <2 Levofloxacin R >4 Meropenem S <1 Meropenem/Vaborbactam S <2 Nitrofurantoin S <32 Piperacillin/Tazobact am S <8 Tetracycline S <4 Tigecycline S <2 Tobramycin S <2 Trimethoprim/Sulfamet hoxazole S <0.5 S = SUSCEPTIBLE I = INTERMEDIATE R = RESISTANT BLANK = DATA NOT AVAILABLE, OR DRUG NOT ADVISABLE OR TESTED R* = RESISTANCE DUE TO EXTENDED SPECTRUM BETA-LACTAMASES ESBL = EXTENDED SPECTRUM BETA-LACTAMASE TFG = THYMIDINE-DEPENDENT STRAIN MICHAELLE = BETA-LACTAMASE POSITIVE IB = INDUCIBLE BETA-LACTAMASE. APPEARS IN PLACE OF 'S' WITH SPECIES KNOWN TO POSSESS INDUCIBLE BETA-LACTAMASES. POTENTIALLY THEY MAY BECOME RESISTANT TO ALL B-LACTAM DRUGS. PERFORMED BY: [place] [address] PATHOLOGIST DESIGN DRAFTER HARRIET CHOWDHURY M.D. Normal [facility] Comment on above: Performed By: #### C UU #### [address] Office Visiton 11-09-2024 Follow-up visit [id number] Shirley Brian 1955 F Date Provider Department Center 11/09/2024 [id number] ESPINOZA DAISY Guerrero [facility] Family History Problem Relation Age of Onset No Known Problems Mother Diabetes Father No Known Problems Sister No Known Problems Brother Family Status - Relation Status Age at Mother Father Sister Brother Level of Service:94347 IN OFFICE/OUTPATIENT ESTABLISHED MOD MDM 30 MIN Reason for Visit and Comments: Atrial Fibrillation [80] - On Eliquis. Hypertension [922253] Congestive Heart Failure [127] - Denies chest pain, SOB, and LE edema. Valve Disorder [3372] Epistaxis (Nose Bleed) [228145] - Having epistaxis in the mornings, recently had 1 straight week of them. Palpitations [657303] - She presented to [facility] last weekend for palpitations. Patient states she was advised to increase metoprolol to 75mg bid x3 days, and then return to baseline dose of 50mg bid. Normal [facility] Pathology Request for Lab Co rpon 11-07-2024 Pathology Request for Lab Niall Normal [facility] Comment on above: Order Comment: PATHO LOGY GI SPECIMEN Result Comment: See report. Scanned copy available in EMR. PERFORMED BY: [place] [address] PATHOLOGIST DESIGN DRAFTER HARRIET CHOWDHURY M.D. Performed By: #### P ATH TO [facility] #### [place] [id number] [facility] Ambulatory Visit Summaryon 1 12-03-2023 Ambulatory Visit [...] for choosing us for your care. [facility] Electrophysiology Consult Note [facility] Reason for visit: Afib 08/06/24 Pt here for LOOP 07/03/24 Pt is doing well and occasionally feels palpitations. HPI: Shirley Brian is a 68 y.o. year old with past medical history of Hypertension, diabetes, dyslipidemia, palpitations. She was recently seen at the [facility] for A-fib RVR as she was admitted for diarrhea and palpitations. She was found to have C. difficile and was treated with antibiotics and converted to sinus rhythm on her own. She states she normally would get palpitations when she drinks caffeine and typically avoids caffeine, the day of her admission she believes she was given caffeinated coffee at [facility] and then began experience palpitations while already [...] show any evidence of reversible ischemia. below [id number] at least 4 for age, gender, hypertension, [...] on file Intimate Partner Violence: Unknown (01/12/2024) [place] Safety & Environment Fear of Current or [...] Arteries: bilateral antoine (more content not included)... Normal [facility] NURSNOTEon 08-06-2024 NURSNOTE RN educated pt on d/ c instructions. RN encouraged pt to voice any questions or concerns. Pt verbalizes no questions or concerns at this time. Pt was wheeled off of unit with all of belongings. [facility] 36on 07-11-2024 36 Regarding echo resul t from 05/29/2024: MD Anne Garsia MA Notify patient that her heart function is normal, valvular heart disease is stable, but she has evidence of pulmonary hypertension. Advise the patient to take the Lasix every day not as needed, check BMP in 1 week, refer her for sleep study [facility] Office Visiton 07-03-2024 Follow-up visit [id number] Shirley Brian Hannah 1955 Provider Department Center 07/03/2024 ROGERS BERNAL Family History Problem Relation Age of Onset No Known Problems Mother Diabetes Father No Known Problems Sister No Known Problems Brother Family Status - Relation Status Age at Mother Father Sister Brother Level of Service:24770 IN OFFICE/OUTPATIENT ESTABLISHED LOW MDM 20 MIN [facility] Office Visiton 04-19-2024 Follow-up visit [id number] Shirley Brian 1955 Provider Department Center 04/19/2024 [id number] MUNSON Family History Problem Relation Age of Onset No Known Problems Mother Diabetes Father No Known Problems Sister No Known Problems Brother Family Status - Relation Status Age at Mother Father Sister Brother Level of Service:33869 IN OFFICE/OUTPATIENT ESTABLISHED MOD MDM 30 MIN [facility] INSULINon 09-25-2022 Insulin 14.1 uIU/mL Normal 2.6-24.9 [facility] Comment on above: Performed By: #### I NSULIN #### [facility] [address] [place] [address] [address] Becky Josue CBC AUTO DIFFon 09-24-2022 BASO # 0.0 103/ul Normal 0.0-0.1 [facility] Comment on above: Performed By: #### C BC ####[facility] [address] [place] [id number]. Becky Josue Basophils/100 WBC (Bld) 0.5 % Normal 0.2-2.0 [facility] Comment on above: Performed By: #### C BC ####[facility] [address] [place], [place] [id number]. Becky Josue EO # 0.1 103/ul Normal 0.0-0.7 [facility] Comment on above: Performed By: #### C BC ####[facility] [address] [place], [place] [address]Dr. Becky Josue Eosinophils/100 WBC (Bld) 3.3 % Normal 0.9-7.0 [facility] Comment on above: Performed By: #### C BC ####[facility] [address] [place], [place] [address]Dr. Becky Josue Erythrocyte distribution width (RBC) [Ratio] 14.3 % Normal 11.0-15.0 [facility] Comment on above: Performed By: #### C BC ####[facility] [address] [place], [place] [address]Dr. Becky Josue Hematocrit (Bld) [Volume fraction] 42.6 % Normal 36.0-48.0 [facility] Comment on above: Performed By: #### C BC ####[facility] [address] [place], [place] [address]Dr. Becky Josue Hemoglobin (Bld) [Mass/Vol] 13.8 g/dL Normal 12.0-16.0 [facility] Comment on above: Performed By: #### C BC ####[facility] [address] [place], [place] [address]Dr. Becky Josue IG # 0.02 10e3/ul Normal 0.00-0.03 [facility] Comment on above: Performed By: #### C BC ####[facility] [address] [place], [place] [address]Dr. Becky Josue IG % 0.5 % Normal 0.0-0.5 [facility] Comment on above: Performed By: #### C BC ####[facility] [address] [place] [id number]. Becky Joselo LYMPH # 1.1 103/ul Critically low 1.2-3.8 [facility] Comment on above: Performed By: #### C BC ####[facility] [address] [place] [address]Dr. Kellenkwadwo Josue Lymphocytes/100 WBC (Bld) 28.0 % Normal 20.5-60.0 [facility] Comment on above: Performed By: #### C BC ####[facility] [address] [place] [address]Dr. Becky Josue MANUAL DIFF REQ NO Normal [facility] Comment on above: Performed By: #### C BC ####[facility] [address] [place] [address]Dr. Becky Josue MCH (RBC) [Entitic mass] 29.3 pg Normal 26.7-34.0 [facility] Comment on above: Performed By: #### C BC ####[facility] [address] [place] [address]Dr. Becky Joselo MCHC (RBC) [Mass/Vol] 32.4 g/dL Normal 29.9-35.2 [facility] Comment on above: Performed By: #### C BC ####[facility] [address] [place] [address]Dr. Becky Josue MCV (RBC) [Entitic vol] 90.4 fL Normal 81.0-99.0 [facility] Comment on above: Performed By: #### C BC ####[facility] [address] [place] [address]Dr. Becky Josue MONO # 0.3 103/ul Normal 0.3-0.8 [facility] Comment on above: Performed By: #### C BC ####[facility] [address] [place] [address]Dr. Becky Josue Monocytes/100 WBC (Bld) 8.3 % Normal 1.7-12.0 [facility] Comment on above: Performed By: #### C BC ####[facility] [address] [place] [id number]. Becky Josue NEUT # 2.4 103/ul Normal 1.4-6.5 [facility] Comment on above: Performed By: #### C BC ####[facility] [address] [place] [id number]. Becky Josue Neutrophils/100 WBC (Bld) 59.4 % Normal 43.0-75.0 [facility] Comment on above: Performed By: #### C BC ####[facility] [address] [place] [address]Dr. Becky Josue Platelet mean volume (Bld) [Entitic vol] 10.3 fL Normal 9.5-13.5 [facility] Comment on above: Performed By: #### C BC ####[facility] [address] [place] [address]Dr. Becky Josue PLT 149 103/ul Critically low 150-450 [facility] Comment on above: Performed By: #### C BC ####[facility] [address] [place], [place] [address]Dr. Becky Josue RBC 4.71 106/ul Normal 4.20-5.40 [facility] Comment on above: Performed By: #### C BC ####[facility] [address] [place], [place] [address]Dr. Becky Josue WBC 4.0 103/ul Normal 4.0-11.0 [facility] Comment on above: Performed By: #### C BC ####[facility] [address] [place], [place] [address]Dr. Becky Josue FREE THYROXINE INDEX T7on FTI 3.36 Normal 1.30-4.50 [facility] Comment on above: Performed By: #### L IPID, CMP, TSH, T7 ####[facility] [address] [place] [address]Dr. Becky Josue T3U 32.0 % Normal 30.0-39.0 [facility] Comment on above: Performed By: #### L IPID, CMP, TSH, T7 ####[facility] [address] [place] [id number]. Becky Josue T4 [Mass/Vol] 10.50 ug/dL Normal 4.80-13.90 [facility] Comment on above: Performed By: #### L IPID, CMP, TSH, T7 ####[facility] [address] [place] [id number]. Becky Josue GLYCOHEMOGLOBIN A1Con 2021 ADA RECOMMENDATION SEE BELOW Normal [facility] Comment on above: Result Comment: ADA RECOMMENDED LIMIT 4.0 - 6.0 ADA THERAPEUTIC TARGET < 7.0 ACTION SUGGESTED > 7.0 Performed By: #### A 1C #### [facility] [address] [place] [address] Dr. Becky Josue Glucose [Mass/Vol] 237 mg/dL Normal [facility] Comment on above: Performed By: #### A 1C #### [facility] [address] [address] [address] Becky Josue HbA1c (Bld) [Mass fraction] 9.9 % Critically high 4.5-6.2 [facility] Comment on above: Performed By: #### A 1C #### [facility] [address] [place] [address] Dr. Becky Josue IRONon 09-24-2022 Iron [Mass/Vol] 55.0 ug/dL Normal 50.0-170.0 [facility] Comment on above: Performed By: #### I ROBERT CLINE #### [facility] [address] [address] [address] Becky Josue LIPID PROFILEon 09-24-2022 CHOL-HDL RATIO NORM SEE BELOW Normal [facility] Comment on above: Result Comment: 3.3 - 4.4 LOW RISK 4.4 - 7.1 AVERAGE RISK 7.1 - 11.0 MODERATE RISK >11.0 HIGH RISK Performed By: #### L IPID, CMP, TSH, T7 ####[facility] [address] [place] [address]Dr. Yilan Josue Cholesterol [Mass/Vol] 171 mg/dL Normal <=200 [facility] Comment on above: Performed By: #### L IPID, CMP, TSH, T7 ####[facility] [address] [place] [id number]. Becky Josue Cholesterol in HDL [Mass/Vol] 38 mg/dL Critically low 40-60 [facility] Comment on above: Performed By: #### L IPID, CMP, TSH, T7 ####[facility] [address] [place] [id number]. Becky Josue Cholesterol in LDL [Mass/Vol] 101.6 mg/dL Normal [facility] Comment on above: Performed By: #### L IPID, CMP, TSH, T7 ####[facility] [address] [place] [id number]. Becky Josue Cholesterol.total/C holesterol in HDL [Mass ratio] 4.5 {ratio} Normal [facility] Comment on above: Performed By: #### L IPID, CMP, TSH, T7 ####[facility] [address] [place] [id number]. Becky Josue HDL NORMAL > or = 60 mg/dl - LO W CARDIOVASCULAR RISK <40 mg/dl - HIGH CARDIOVASCULAR RISK Normal [facility] Comment on above: Performed By: #### L IPID, CMP, TSH, T7 ####[facility] [address] [place] [id number]. Becky Josue LDL CALC NORMAL SEE BELOW Normal [facility] Comment on above: Result Comment: <100 mg/dl OPTIMAL 100 - 129 mg/dl NEAR OR ABOVE OPTIMAL 130 - 159 mg/dl BORDERLINE HIGH 160 - 189 mg/dl HIGH >190 mg/dl VERY HIGH Performed By: #### L IPID, CMP, TSH, T7 ####[facility] [address] [place] [id number]. Becky Josue Triglyceride [Mass/Vol] 157 mg/dL Critically high <=150 [facility] Comment on above: Performed By: #### L IPID, CMP, TSH, T7 ####[facility] [address] [place] [id number]. Becky Josue VLDL CALC 31.4 mg/dL Normal [facility] Comment on above: Performed By: #### L IPID, CMP, TSH, T7 ####[facility] [address] [place] [address]Dr. Becky Josue PROF 14(COMP METB)on 022 Albumin [Mass/Vol] 3.4 g/dL Normal 3.4-5.0 [facility] Comment on above: Performed By: #### L IPID, CMP, TSH, T7 ####[facility] [address] [place] [address]Dr. Becky Josue Albumin/Globulin [Mass ratio] 0.9 {ratio} Normal [facility] Comment on above: Performed By: #### L IPID, CMP, TSH, T7 ####[facility] [address] [place] [address]Dr. Becky Josue ALP [Catalytic activity/Vol] 106 U/L Normal 46-116 [facility] Comment on above: Performed By: #### L IPID, CMP, TSH, T7 ####[facility] [address] [place] [address]Dr. Becky Josue ALT [Catalytic activity/Vol] 39 U/L Normal 14-59 [facility] Comment on above: Performed By: #### L IPID, CMP, TSH, T7 ####[facility] [address] [place] [address]Dr. Becky Josue Anion gap [Moles/Vol] 6.9 mmol/L Normal [facility] Comment on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 included)... [facility] 04-19-2024 Note NM Cardiology - [facility] Subjective Shirley Brian is a [...] RVR when she was admitted to the [facility] with diarrhea due to C. difficile colitis [...] V1 to V3, (more content not included)... [facility] 04-19-2024 Note Patient here for 6 m [...] All other systems reviewed and are negative. [facility] 02-16-2022 Evaluation note Encounter Date Diagnosis Assessment [...] exam and duration of symptoms. May use [place] or Flonase as directed. May use Zofran [...] Patient care instructions given in writting by [employer] [facility] document Abigail Stewart Other 12-06-2021 Evaluation note* Encounter Date Diagnosis [...] Patient care instructions given in writting by [employer] [facility] document. Abigail Stewart Other Evaluation + Plan note No data available for this section [facility] [employer] History general Narrative - Reported* Type Description Date Medical History Diabetes Medical History HTN (hypertension) Medical History Anxiety Medical History Uterine cancer Surgical History hysterectomy Surgical History C section Surgical History tonsillectomy Surgical History appendectomy Surgical History cholecystectomy Surgical History colonoscopy Surgical History biopsy Hospitalization History pneumonia Hospitalization History see above Abigail Stewart Other Hospital Discharge instructions No data available for this section [facility] [employer] Progress note No data available for this section [facility] Summary Purpose Family History No Family History Records Found No data available for this section No Family History Records FoundNo Family History Records Found No data available for this section No Family History Records Found Advance Directives No [...] pital DATE CREATED AUTHOR AUTHOR'S ORGANIZ ATION 11/29/2024 [facility] DATE CREATED AUTHOR AUTHOR'S ORGANIZ ATION 11/30/2024 [facility] DATE CREATED AUTHOR AUTHOR'S ORGANIZ ATION 12/20/2024 [facility] Patient Care team informatio n (unrecognized section and content) Personnel Name: Maryjane Valencia MD Address: Address: [address] [place] [address] Personnel Name: Maryjane Valencia MD Address: Address: [address] [place] [address] FOR RECORDS PERTAINING TO PATIENTS WHO ARE [...] BE BASED ON THE PRIMARY CLINICAL RECORDS. [employer] provides no warranty or guarantee of the accuracy or completeness of information in this document.
--- NOTE | 2024-12-28 16:16 | P.HP_ITS ---
HPI H&P: HPI History of Present Illness Chief complaint: WATER RETENTION PER PT, SHORT OF BREATH ANEMIA Narrative: Patient was seen and evaluated in the office with increasing shortness of breath and peripheral edema, we doubled up her water pill for couple days, her weight did not go down, she thought the edema was somewhat better, but with her symptoms unimproved and referred her to the ER for admission, in the ER found of significant anemia with hemoglobin less than 5, BNP is normal, CT scan does show some possible ascites. Patient was admitted for workup and treatment of same Opioid HPI Opioid Management Most Recent Pain and Opioid Data: Last Pain Scale 0 11/19/24 06:16 11/19/24 Last Pain Intensity 5 11/16/24 08:29 11/16/24 Last ORT Total Score 1 11/15/24 00:41 11/15/24 Last ORT Risk Category Low Risk 11/15/24 00:41 11/15/24 PFSH PFS Medical History (Updated 12/28/24 @ 14:52 by Vicente Varela MD) Acute dehydration ?E86.0 - Dehydration (ICD-10) Acute kidney injury ?N17.9 - Acute kidney failure, unspecified (ICD-10) Septic shock ?A41.9 - Sepsis, unspecified organism (ICD-10) ?R65.21 - Severe sepsis with septic shock (ICD-10) Atrial fibrillation with rapid ventricular response ?I48.91 - Unspecified atrial fibrillation (ICD-10) Sepsis ?A41.9 - Sepsis, unspecified organism (ICD-10) Hypertension ?I10 - Essential (primary) hypertension (ICD-10) Diabetes ?E11.9 - Type 2 diabetes mellitus without complications (ICD-10) Dyslipidemia ?E78.5 - Hyperlipidemia, unspecified (ICD-10) Hypomagnesemia ?E83.42 - Hypomagnesemia (ICD-10) Acute hyperglycemia ?R73.9 - Hyperglycemia, unspecified (ICD-10) Cervical cancer ?C53.9 - Malignant neoplasm of cervix uteri, unspecified (ICD-10) Osteoarthritis ?M19.90 - Unspecified osteoarthritis, unspecified site (ICD-10) Sleep apnea ?G47.30 - Sleep apnea, unspecified (ICD-10) Kidney stones ?N20.0 - Calculus of kidney (ICD-10) Cataract ?H26.9 - Unspecified cataract (ICD-10) Palpitations ?R00.2 - Palpitations (ICD-10) Anemia ?D64.9 - Anemia, unspecified (ICD-10) Rotator cuff arthropathy of left shoulder ?M12.812 - Other specific arthropathies, not elsewhere classified, left shoulder (ICD-10) Atrial fibrillation with rapid ventricular response ?I48.91 - Unspecified atrial fibrillation (ICD-10) Surgical History H/O repair of rotator cuff ?Z98.890 - Other specified postprocedural states (ICD-10) H/O section ?Z98.891 - History of uterine scar from previous surgery (ICD-10) History of tonsillectomy ?Z90.89 - Acquired absence of other organs (ICD-10) History of cholecystectomy ?Z90.49 - Acquired absence of other specified parts of digestive tract (ICD- 10) History of appendectomy ?Z90.49 - Acquired absence of other specified parts of digestive tract (ICD- 10) H/O: hysterectomy ?Z90.710 - Acquired absence of both cervix and uterus (ICD-10) Family History Grandmother Family history of cancer Father Family history of diabetes mellitus Grandfather Family history of cancer Brother Family history of hypertension Social History Within the past year, how often did you have a drink containing alcohol: monthly or less Within the past year, how often did you have six or more drinks on one occasion: never Smoking status: Never smoker Non-prescribed substance use: denies use 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 Highest level of school completed/degree received: Bachelor's degree Do you want help with school or training: No Are you now , , , , never or living with a partner: never In a typical week, how many times do you talk on the telephone with family, friends, or neighbors: 3 or more times per week How often do you get together with friends or relatives: once per week How often do you attend anabaptism or mormon services: 4 or more times per year Do you belong to any clubs or organizations such as anabaptism groups unions, fraThird Age or athletic groups, or school groups: yes Total score: 3 Score interpretation: A score of greater than or equal to 2 indicates the lowest level of social isolation. Little interest or pleasure in doing things: not at all Feeling down, depressed, or hopeless: not at all Feel stressed/tense/nervous/anxious/difficulty sleeping: not at all Life stressors: recent of family or friend Due to disability, difficulty making decisions: No Meds Home Medications and Allergies Home Medications ?Medication ?Instructions ?Recorded ?Confirmed ?Type metformin 500 mg tablet 1,000 mg PO BID 05/23/23 12/28/24 History ramipril 10 mg capsule 10 mg PO DAILY 05/23/23 12/28/24 History simvastatin 20 mg tablet 20 mg PO DAILY 05/23/23 12/28/24 History venlafaxine 75 mg capsule,extended 75 mg PO DAILY 05/23/23 12/28/24 History release 24 hr apixaban 5 mg tablet (Eliquis) 5 mg PO BID #60 tabs 05/25/23 12/28/24 Rx magnesium oxide 400 mg (241.3 mg 400 mg PO BID #60 tabs 05/25/23 12/28/24 Rx magnesium) tablet lancets #200 ea 11/02/24 11/15/24 Rx pantoprazole 40 mg tablet,delayed 40 mg PO DAILY 11/15/24 12/28/24 History release amiodarone 200 mg tablet 200 mg PO BID 12/28/24 12/28/24 History furosemide 20 mg tablet 20 mg PO DAILY 12/28/24 12/28/24 History metoprolol succinate 25 mg 25 mg PO DAILY 12/28/24 12/28/24 History tablet,extended release 24 hr ondansetron 4 mg disintegrating 4 mg PO Q8H PRN nausea and vomiting 12/28/24 12/28/24 History tablet Allergies Allergy/AdvReac Type Severity Reaction Status Date / Time Sulfa (Sulfonamide AdvReac Mild Hives Verified 12/28/24 11:13 Antibiotics) Exam Constitutional Vital Signs, click to edit/add: Last Vital Signs Temp 97.5 F L 12/28/24 15:45 Pulse 54 L 12/28/24 15:45 Resp 18 12/28/24 14:45 BP 135/47 L 12/28/24 15:45 Pulse Ox 94 L 12/28/24 15:45 O2 Del Method Room Air 12/28/24 15:45 Documenting provider has reviewed patient's vital signs: yes Common normals: apparent distress (Moderate respiratory distress) Respiratory Common normals: abnormal respiratory effort (Moderate respiratory distress) Cardio Common normals: regular rate and regular rhythm Extremity Common normals: abnormal to inspection (3+ edema) Results Labs Labs: Short CBC 12/28/24 12/28/24 Range/Units 11:32 12:09 WBC 6.2 (4.0-11.0) 10^3/uL Hgb 5.2 L* 4.9 L* (12.0-16.0) g/dL Hct 19.3 L* 18.1 L* (36.0-48.0) % Plt Count 239 (150-450) 10^3/uL BMP 12/28/24 11:32 Sodium 141 Potassium 5.4 H Chloride 104 Carbon Dioxide 25.0 BUN 50.0 H Creatinine 1.67 H Glucose 225 H Calcium 8.5 Liver Function 12/28/24 Range/Units 12:09 Total Bilirubin 1.1 H (0.2-1.0) mg/dL Direct Bilirubin 0.5 H (0.0-0.2) mg/dL AST 17 (15-37) U/L ALT 11 L (14-59) U/L Alkaline Phosphatase 105 (46-116) U/L Albumin 2.4 L (3.4-5.0) g/dL Assessment and Plan Assessment and Plan (1) Edema of both lower legs: (2) Pleural effusion: (3) Cirrhosis of liver with ascites: Plan Admission findings: Bradycardia, which would be paradoxical from the expected due to the anemia, respiratory distress, severe anemia with hemoglobin less than 5, acute kidney injury stage II, baseline creatinine of 0.71, creatinine admission 1.67 which is 235% above baseline. Decreased urine output as well but put it in stage II Severe anemia-check stool for occult blood, check PT PTT, start patient on IV Protonix, type and cross 2 units, if hemoglobin not greater than 7 on repeat will give 2 additional units Acute combined CHF - diurese with lasix - and reepeat labs in am Infiltrate left lower lobe but no other signs of infection-will hold off on antibiotics at the present time Possible ascites on CT scan, may be related to the heart failure part versus liver, liver suggest possible cirrhosis we will work that up as an outpatient Hyperkalemia-likely to resolve with diuresis Admission status: Patient with severe anemia, hemoglobin less than 5, unable to give aggressive resuscitation from a chronic standpoint secondary to her acute combined congestive heart failure history, medically necessary treatment will span 2 midnights. Inpatient status.
[2024-12-28] MEDS: FUROSEMIDE 40 MG/4 ML VIAL IVP (16:44)
[2024-12-28] MEDS: PANTOPRAZOLE SODIUM 40 MG VIAL IV (16:44)
[2024-12-28 16:48] LABS: Glucometer 212 mg/dL (74-106)
[2024-12-28] MEDS: INSULIN ASPART 300 UNIT/3 ML PEN SUBQ ×2 (16:55→22:16)
[2024-12-28 17:00] LABS: Magnesium 2.2 mg/dL (1.8-2.4)
[2024-12-28 17:01] LABS: Ammonia 22 umol/L (11-32)
[2024-12-28 17:09] LABS: INR 1.34; Partial Thromboplastin Time 33.9 sec (22.3-36.2); Prothrombin Time 13.8 sec (9.0-11.6)
[2024-12-28 18:49] LABS: Bilirubin Urine NEGATIVE (NEGATIVE); Blood Urine NEGATIVE (NEGATIVE); Clarity Urine CLEAR (CLEAR); Color Urine LT. YELLOW (YELLOW); Glucose Urine UA NEGATIVE (NEGATIVE); Ketones Urine NEGATIVE (NEGATIVE); Leukocyte Esterase Urine TRACE (NEGATIVE); Nitrite Urine NEGATIVE (NEGATIVE); Protein Urine NEGATIVE (NEG/TRACE); Urobilinogen Urine 0.2 EU/dL (0.2-1.0)
[2024-12-28 18:56] LABS: RBC Urine 0-2 #/HPF (0-2)
[2024-12-28 18:57] LABS: Bacteria Urine MODERATE #/HPF (NONE SEEN); Cast Seen? SEEN #/LPF (NONE SEEN); Crystals Seen? None Seen #/HPF (None Seen); Hyaline Casts Urine RARE; Mucus Urine NONE SEEN (NONE SEEN); Squamous Epithelial Cell Urine MODERATE #/LPF (NONE/RARE); Urine Culture Indicated YES
--- NOTE | 2024-12-28 19:09 | ECG_ITS ---
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
[2024-12-28 19:18] LABS: Glucometer 197 mg/dL (74-106)
--- NOTE | 2024-12-28 19:56 | PC.NURSE ---
ASSISTANT TEACHER PRIMARY Marysol Johnson notified of patients Heart rate going from sinus yovanny in the 50's and in and out of sinus yovanny with PVC's Bigeminy HR 30-50s. Vitals also given to ASSISTANT TEACHER PRIMARY. Patient is asymptomatic at this time, but is getting the last few minutes of her blood transfusion. Notified of last Potassium and Magnesium levels. ASSISTANT TEACHER PRIMARY ordered to add a Magnesium and BMP with next CBC order. EKG obtained and sent to ASSISTANT TEACHER PRIMARY also.
[2024-12-28 21:33] LABS: Basophils Percent Auto 0.6 % (0.2-2.0); Eosinophils Percent Auto 0.2 % (0.9-7.0); Hematocrit 26.2 % (36.0-48.0); Hemoglobin 7.7 g/dL (12.0-16.0); Immature Granulocytes Abs Auto 0.02 10^3/uL (0.00-0.03); Immature Granulocytes Pct Auto 0.3 % (0.0-0.5); Lymphocytes Percent Auto 32.3 % (20.5-60.0); Mean Corpuscular HGB Conc 29.4 g/dL (29.9-35.2); Mean Corpuscular Volume 85.1 fL (81.0-99.0); Mean Platelet Volume 11.1 fL (9.5-13.5); Monocytes Absolute Auto 0.6 10^3/uL (0.3-0.8); Monocytes Percent Auto 9.6 % (1.7-12.0); Neutrophils Absolute Auto 3.6 10^3/uL (1.4-6.5); Platelet Count 225 10^3/uL (150-450); Red Blood Count 3.08 10^6/uL (4.20-5.40); White Blood Count 6.3 10^3/uL (4.0-11.0)
[2024-12-28 21:52] LABS: Anion Gap 14.7; BUN Creatinine Ratio 28.9; Calcium 8.7 mg/dL (8.5-10.1); Carbon Dioxide 28.2 mmol/L (21.0-32.0); Chloride 104 mmol/L (98-107); Estimated GFR (African America 39 (>=60 mL/min/1.73m^2); Estimated GFR (Non-African Ame 32 (>=60 mL/min/1.73m^2); Glucose 211 mg/dL (74-106); Magnesium 2.2 mg/dL (1.8-2.4); Potassium 4.9 mmol/L (3.5-5.1); Sodium 142 mmol/L (136-145)
[2024-12-28] MEDS: ENSURE HP 237 ML LIQUID PO (22:15)
[2024-12-28] MEDS: PROSTAT 15 GM PROTEIN/100 CAL 30 ML LIQUID PACKET PO (22:15)
[2024-12-28] MEDS: AMIODARONE HCL 200 MG TABLET 400 MG PO (22:15)
[2024-12-28] MEDS: MAGNESIUM OXIDE 400 MG TABLET PO (22:15)
[2024-12-29] VITALS (27 sets, daily range): BP systolic 124–169; BP diastolic 60–76; PULSE 51–72; TEMP 36.3–37.2; O2SAT 90–98
[2024-12-29 06:07] LABS: Basophils Percent Auto 0.7 % (0.2-2.0); Eosinophils Percent Auto 0.2 % (0.9-7.0); Immature Granulocytes Abs Auto 0.02 10^3/uL (0.00-0.03); Immature Granulocytes Pct Auto 0.3 % (0.0-0.5); Lymphocytes Absolute Auto 1.7 10^3/uL (1.2-3.8); Lymphocytes Percent Auto 28.7 % (20.5-60.0); Mean Corpuscular Hemoglobin 24.7 pg (26.7-34.0); Mean Corpuscular Volume 82.4 fL (81.0-99.0); Mean Platelet Volume 11.3 fL (9.5-13.5); Monocytes Absolute Auto 0.5 10^3/uL (0.3-0.8); Monocytes Percent Auto 9.1 % (1.7-12.0); Neutrophils Absolute Auto 3.6 10^3/uL (1.4-6.5); Platelet Count 199 10^3/uL (150-450); Red Blood Count 2.67 10^6/uL (4.20-5.40); Red Cell Distribution Width 18.8 % (11.0-15.0); White Blood Count 5.9 10^3/uL (4.0-11.0)
[2024-12-29] MEDS: PANTOPRAZOLE SODIUM 40 MG VIAL IV ×2 (06:07→17:51)
[2024-12-29 06:11] LABS: Hemoglobin 6.6 g/dL (12.0-16.0)
[2024-12-29 06:34] LABS: Alanine Aminotransferase 11 U/L (14-59); Albumin Globulin Ratio 0.5; Albumin Level 2.2 g/dL (3.4-5.0); Alkaline Phosphatase 103 U/L (46-116); Anion Gap 11.6; Aspartate Amino Transferase 15 U/L (15-37); BUN Creatinine Ratio 31.4; Bilirubin Total 2.1 mg/dL (0.2-1.0); Calcium 8.5 mg/dL (8.5-10.1); Carbon Dioxide 27.1 mmol/L (21.0-32.0); Chloride 106 mmol/L (98-107); Estimated GFR (African America 46 (>=60 mL/min/1.73m^2); Estimated GFR (Non-African Ame 38 (>=60 mL/min/1.73m^2); Globulin 4.4 g/dL; Glucose 215 mg/dL (74-106); Potassium 4.7 mmol/L (3.5-5.1); Sodium 140 mmol/L (136-145); Total Protein 6.6 g/dL (6.4-8.2)
[2024-12-29 08:00] LABS: Glucometer 215 mg/dL (74-106)
[2024-12-29] MEDS: MAGNESIUM OXIDE 400 MG TABLET PO ×2 (09:22→21:47)
[2024-12-29] MEDS: METFORMIN HCL 500 MG TABLET 1000 MG PO ×2 (09:22→21:47)
[2024-12-29] MEDS: LISINOPRIL 20 MG TABLET 40 MG PO (09:22)
[2024-12-29] MEDS: AMIODARONE HCL 200 MG TABLET 400 MG PO ×2 (09:22→21:48)
[2024-12-29] MEDS: VENLAFAXINE HCL ER 75 MG CAPSULE PO (09:22)
[2024-12-29] MEDS: METOPROLOL SUCCINATE 25 MG TAB.ER.24H PO (09:23)
[2024-12-29] MEDS: ENSURE HP 237 ML LIQUID PO ×2 (09:23→21:48)
[2024-12-29] MEDS: PROSTAT 15 GM PROTEIN/100 CAL 30 ML LIQUID PACKET PO ×2 (09:23→21:48)
[2024-12-29] MEDS: FLU VACC QS2024(65UP)/MF59C/PF 60 MCG/0.5 ML SYRINGE IM (09:23)
[2024-12-29] MEDS: PNEUMOC 20-VAL CONJ-DIP CRM/PF 0.5 ML SYRINGE IM (09:24)
[2024-12-29] MEDS: INSULIN ASPART 300 UNIT/3 ML PEN SUBQ ×2 (09:25→11:53)
[2024-12-29] MEDS: DIPHENHYDRAMINE HCL 25 MG CAPSULE PO (10:52)
[2024-12-29] MEDS: ACETAMINOPHEN 500 MG TABLET 1000 MG PO (10:53)
--- NOTE | 2024-12-29 10:54 | P.PN_ITS ---
Progress Note: Subjective Subjective Interval history: Patient does look better today, less dyspnea but she is at rest Exam Constitutional Vital Signs, click to edit/add: Last Vital Signs Temp 98.9 F 12/29/24 08:04 Pulse 69 12/29/24 10:00 Resp 17 12/29/24 06:09 BP 144/69 H 12/29/24 08:04 Pulse Ox 92 L 12/29/24 08:04 O2 Del Method Room Air 12/29/24 08:04 Documenting provider has reviewed patient's vital signs: yes Common normals: no apparent distress, average body habitus, oriented x3, no limitations, healthy appearing, alert and well nourished Chest Common normals: inspection of chest normal Cardio Common normals: regular rate and regular rhythm GI Common normals: soft to palpation and non-tender; negative for Normal to inspection, nondistended, normoactive bowel sounds present (Obese) Extremity Common normals: abnormal to inspection (2+ edema but improved) General: normal exam except as noted Progress Note: Objective Labs Labs: Short CBC 12/28/24 12/28/24 12/28/24 Range/Units 11:32 12:09 21:25 WBC 6.2 6.3 (4.0-11.0) 10^3/uL Hgb 5.2 L* 4.9 L* 7.7 L (12.0-16.0) g/dL Hct 19.3 L* 18.1 L* 26.2 L (36.0-48.0) % Plt Count 239 225 (150-450) 10^3/uL 12/29/24 Range/Units 05:35 WBC 5.9 (4.0-11.0) 10^3/uL Hgb 6.6 L* (12.0-16.0) g/dL Hct 22.0 L* (36.0-48.0) % Plt Count 199 (150-450) 10^3/uL BMP 12/28/24 12/28/24 12/29/24 11:32 21:25 05:35 Sodium 141 142 140 Potassium 5.4 H 4.9 4.7 Chloride 104 104 106 Carbon Dioxide 25.0 28.2 27.1 BUN 50.0 H 46.0 H 43.0 H Creatinine 1.67 H 1.59 H 1.37 H Glucose 225 H 211 H 215 H Calcium 8.5 8.7 8.5 Liver Function 12/28/24 12/29/24 Range/Units 12:09 05:35 Total Bilirubin 1.1 H 2.1 H (0.2-1.0) mg/dL Direct Bilirubin 0.5 H (0.0-0.2) mg/dL AST 17 15 (15-37) U/L ALT 11 L 11 L (14-59) U/L Alkaline Phosphatase 105 103 (46-116) U/L Albumin 2.4 L 2.2 L (3.4-5.0) g/dL Urine 12/28/24 Range/Units 18:40 Urine Color Lt. yellow (YELLOW) Urine Clarity Clear (CLEAR) Urine pH 7.0 (5.0-9.0) Ur Specific [place] 1.010 (1.005-1.025) Urine Protein Negative (NEG/TRACE) mg/dL Urine Glucose (UA) Negative (NEGATIVE) mg/dL Progress Note: A&P Assessment and Plan (1) Edema of both lower legs: (2) Pleural effusion: (3) Cirrhosis of liver with ascites: Plan Admission findings: Bradycardia, which would be paradoxical from the expected due to the anemia, respiratory distress, severe anemia with hemoglobin less than 5, acute kidney injury stage II, baseline creatinine of 0.71, creatinine admission 1.67 which is 235% above baseline. Decreased urine output as well but put it in stage II Severe anemia-hemoglobin came up initially but then is back down about 1 point this morning, will give 2 additional units and repeat CBC later today, maintain current medications, doubt active bleeding and think this is just equilibration after the first 2 units Acute combined CHF - diurese with lasix - and repeat labs in am Infiltrate left lower lobe but no other signs of infection-will hold off on antibiotics at the present time Possible ascites on CT scan, may be related to the heart failure part versus liver, liver suggest possible cirrhosis we will work that up as an outpatient Mild coagulopathy secondary to Eliquis-holding Eliquis NIDDM-insulin sliding scale High blood cell count and urine but no symptoms, awaiting culture Hyperkalemia-likely to resolve with diuresis Admission status: Patient with severe anemia, hemoglobin less than 5, unable to give aggressive resuscitation from a chronic standpoint secondary to her acute combined congestive heart failure history, medically necessary treatment will span 2 midnights. Inpatient status.
[2024-12-29] MEDS: 0.9 % SODIUM CHLORIDE 250 ML 10 ML IV (10:56)
[2024-12-29 11:52] LABS: Glucometer 240 mg/dL (74-106)
[2024-12-29] MEDS: FUROSEMIDE 40 MG/4 ML VIAL IVP ×2 (13:36→17:51)
[2024-12-29 16:58] LABS: Glucometer 163 mg/dL (74-106)
[2024-12-29 18:07] LABS: Hemoglobin 8.5 g/dL (12.0-16.0); Mean Corpuscular HGB Conc 30.4 g/dL (29.9-35.2); Mean Corpuscular Hemoglobin 25.2 pg (26.7-34.0); Mean Corpuscular Volume 83.1 fL (81.0-99.0); Platelet Count 208 10^3/uL (150-450); Red Blood Count 3.37 10^6/uL (4.20-5.40); Red Cell Distribution Width 18.6 % (11.0-15.0); White Blood Count 7.1 10^3/uL (4.0-11.0)
[2024-12-29 20:43] LABS: Glucometer 184 mg/dL (74-106)
[2024-12-29] MEDS: TIZANIDINE HCL 4 MG TABLET 8 MG PO (21:47)
[2024-12-30] VITALS (28 sets, daily range): BP systolic 90–147; BP diastolic 45–84; PULSE 37–59; TEMP 36.3–36.6; O2SAT 91–97
[2024-12-30 00:07] LABS: Glucometer 279 mg/dL (74-106)
[2024-12-30] MEDS: PANTOPRAZOLE SODIUM 40 MG VIAL IV ×2 (05:46→16:34)
[2024-12-30 06:28] LABS: Basophils Absolute Auto 0.1 10^3/uL (0.0-0.1); Basophils Percent Auto 0.9 % (0.2-2.0); Eosinophils Percent Auto 0.3 % (0.9-7.0); Hemoglobin 7.8 g/dL (12.0-16.0); Immature Granulocytes Abs Auto 0.03 10^3/uL (0.00-0.03); Immature Granulocytes Pct Auto 0.4 % (0.0-0.5); Lymphocytes Absolute Auto 1.9 10^3/uL (1.2-3.8); Lymphocytes Percent Auto 27.5 % (20.5-60.0); Mean Corpuscular Hemoglobin 24.9 pg (26.7-34.0); Mean Corpuscular Volume 83.1 fL (81.0-99.0); Mean Platelet Volume 11.7 fL (9.5-13.5); Monocytes Absolute Auto 0.6 10^3/uL (0.3-0.8); Neutrophils Absolute Auto 4.3 10^3/uL (1.4-6.5); Neutrophils Percent Auto 61.9 % (43.0-75.0); Platelet Count 186 10^3/uL (150-450); Red Blood Count 3.13 10^6/uL (4.20-5.40); Red Cell Distribution Width 19.2 % (11.0-15.0); White Blood Count 6.9 10^3/uL (4.0-11.0)
[2024-12-30 06:57] LABS: Alanine Aminotransferase 9 U/L (14-59); Albumin Globulin Ratio 0.6; Albumin Level 2.3 g/dL (3.4-5.0); Alkaline Phosphatase 97 U/L (46-116); Anion Gap 14.9; Aspartate Amino Transferase 18 U/L (15-37); BUN Creatinine Ratio 25.7; Bilirubin Total 1.7 mg/dL (0.2-1.0); Calcium 8.7 mg/dL (8.5-10.1); Carbon Dioxide 25.9 mmol/L (21.0-32.0); Chloride 105 mmol/L (98-107); Estimated GFR (African America 34 (>=60 mL/min/1.73m^2); Estimated GFR (Non-African Ame 28 (>=60 mL/min/1.73m^2); Glucose 214 mg/dL (74-106); Potassium 4.8 mmol/L (3.5-5.1); Sodium 141 mmol/L (136-145); Total Protein 6.3 g/dL (6.4-8.2)
--- NOTE | 2024-12-30 09:36 | P.PN_ITS ---
Progress Note: Subjective Subjective Interval history: Patient definitely looks better, feels somewhat better, less dyspnea but still dyspnea with activity Exam Constitutional Vital Signs, click to edit/add: Last Vital Signs Temp 97.8 F 12/30/24 08:21 Pulse 48 L 12/30/24 08:21 Resp 18 12/30/24 08:21 BP 114/63 12/30/24 08:21 Pulse Ox 91 L 12/30/24 08:21 O2 Del Method Room Air 12/30/24 08:21 Documenting provider has reviewed patient's vital signs: yes Common normals: no apparent distress, oriented x3 and alert Chest Common normals: inspection of chest normal Respiratory Common normals: normal respiratory effort Auscultation: rales (bases) Cardio Common normals: regular rate and regular rhythm GI Common normals: soft to palpation and non-tender; negative for Normal to inspection, nondistended, normoactive bowel sounds present (Obese) Extremity Common normals: abnormal to inspection (2+ edema unchanged from yesterday) General: normal exam except as noted Progress Note: Objective Labs Labs: Short CBC 12/29/24 12/30/24 Range/Units 18:02 06:04 WBC 7.1 6.9 (4.0-11.0) 10^3/uL Hgb 8.5 L 7.8 L (12.0-16.0) g/dL Hct 28.0 L 26.0 L (36.0-48.0) % Plt Count 208 186 (150-450) 10^3/uL BMP 12/30/24 06:04 Sodium 141 Potassium 4.8 Chloride 105 Carbon Dioxide 25.9 BUN 46.0 H Creatinine 1.79 H Glucose 214 H Calcium 8.7 Liver Function 12/30/24 Range/Units 06:04 Total Bilirubin 1.7 H (0.2-1.0) mg/dL AST 18 (15-37) U/L ALT 9 L (14-59) U/L Alkaline Phosphatase 97 (46-116) U/L Albumin 2.3 L (3.4-5.0) g/dL Progress Note: A&P Assessment and Plan (1) Edema of both lower legs: (2) Pleural effusion: (3) Cirrhosis of liver with ascites: Plan Admission findings: Bradycardia, which would be paradoxical from the expected due to the anemia, respiratory distress, severe anemia with hemoglobin less than 5, acute kidney injury stage II, baseline creatinine of 0.71, creatinine admission 1.67 which is 235% above baseline. Decreased urine output as well but put it in stage II Severe anemia-hemoglobin is improved, but is down somewhat from yesterday, repeat 1 more unit today, if having further bleeding, so far no stools so doubt significant upper GI blood loss anemia I think this is more chronic, may need endoscopy tomorrow versus discharging tomorrow and setting up as an outpatient Acute combined CHF -BNP is elevated-will try Bumex drip after getting the unit of blood today. Acute kidney injury stage II-baseline creatinine 0.71, creatinine today 1.79 which is 252% above baseline, she does need further diuresis however so we will use Bumex drip Infiltrate left lower lobe but no other signs of infection-will hold off on antibiotics at the present time-no cough no fever Possible ascites on CT scan, may be related to the heart failure part versus liver, liver suggest possible cirrhosis we will work that up as an outpatient Mild coagulopathy secondary to Eliquis-holding Eliquis NIDDM-insulin sliding scale High blood cell count and urine but no symptoms, awaiting culture Hyperkalemia-resolved Admission status: Patient with severe anemia, hemoglobin less than 5, unable to give aggressive resuscitation from a chronic standpoint secondary to her acute combined congestive heart failure history, medically necessary treatment will span 2 midnights. Inpatient status.
[2024-12-30] MEDS: VENLAFAXINE HCL ER 75 MG CAPSULE PO (09:44)
[2024-12-30] MEDS: POLYETHYLENE GLYCOL 3350 17 GM POWDER PACKET PO (09:45)
[2024-12-30] MEDS: METFORMIN HCL 500 MG TABLET 1000 MG PO ×2 (09:45→21:10)
[2024-12-30] MEDS: MAGNESIUM OXIDE 400 MG TABLET PO ×2 (09:45→21:10)
[2024-12-30] MEDS: ENSURE HP 237 ML LIQUID PO ×2 (09:45→21:10)
[2024-12-30] MEDS: PROSTAT 15 GM PROTEIN/100 CAL 30 ML LIQUID PACKET PO ×2 (09:45→21:10)
[2024-12-30] MEDS: DIPHENHYDRAMINE HCL 25 MG CAPSULE PO (10:34)
[2024-12-30] MEDS: ACETAMINOPHEN 500 MG TABLET 1000 MG PO (10:34)
[2024-12-30] MEDS: 0.9 % SODIUM CHLORIDE 250 ML 10 ML IV (10:56)
[2024-12-30 11:01] LABS: Internal Control Within Normal Limits; Occult Blood Positive
[2024-12-30] MEDS: INSULIN ASPART 300 UNIT/3 ML PEN SUBQ (12:15)
[2024-12-30 12:22] LABS: Glucometer 244 mg/dL (74-106)
[2024-12-30] MEDS: BUMETANIDE 10 MG in 0.9 % SODIUM CHLORIDE 160 ML 20 MG IV (13:45)
[2024-12-30 14:01] LABS: Hematocrit 30.1 % (36.0-48.0); Hemoglobin 9.1 g/dL (12.0-16.0)
[2024-12-30 16:31] LABS: Glucometer 143 mg/dL (74-106)
[2024-12-30] MEDS: TIZANIDINE HCL 4 MG TABLET 8 MG PO (21:10)
[2024-12-30 21:13] LABS: Glucometer 129 mg/dL (74-106)
[2024-12-31] VITALS (9 sets, daily range): BP systolic 105–137; BP diastolic 61–69; PULSE 45–60; TEMP 36.4; O2SAT 91–95
[2024-12-31] MEDS: PANTOPRAZOLE SODIUM 40 MG VIAL IV (05:14)
[2024-12-31 06:02] LABS: Basophils Percent Auto 0.6 % (0.2-2.0); Eosinophils Percent Auto 0.6 % (0.9-7.0); Hematocrit 30.2 % (36.0-48.0); Immature Granulocytes Abs Auto 0.02 10^3/uL (0.00-0.03); Immature Granulocytes Pct Auto 0.3 % (0.0-0.5); Lymphocytes Absolute Auto 2.3 10^3/uL (1.2-3.8); Lymphocytes Percent Auto 36.5 % (20.5-60.0); Mean Corpuscular HGB Conc 29.8 g/dL (29.9-35.2); Mean Corpuscular Hemoglobin 25.1 pg (26.7-34.0); Mean Corpuscular Volume 84.4 fL (81.0-99.0); Mean Platelet Volume 11.7 fL (9.5-13.5); Monocytes Absolute Auto 0.4 10^3/uL (0.3-0.8); Monocytes Percent Auto 6.7 % (1.7-12.0); Neutrophils Absolute Auto 3.5 10^3/uL (1.4-6.5); Neutrophils Percent Auto 55.3 % (43.0-75.0); Platelet Count 184 10^3/uL (150-450); Red Blood Count 3.58 10^6/uL (4.20-5.40); White Blood Count 6.4 10^3/uL (4.0-11.0)
[2024-12-31 06:29] LABS: Alanine Aminotransferase 10 U/L (14-59); Albumin Globulin Ratio 0.6; Albumin Level 2.4 g/dL (3.4-5.0); Alkaline Phosphatase 99 U/L (46-116); Anion Gap 15.6; Aspartate Amino Transferase 20 U/L (15-37); BUN Creatinine Ratio 29.7; Bilirubin Total 1.6 mg/dL (0.2-1.0); Calcium 8.6 mg/dL (8.5-10.1); Carbon Dioxide 26.7 mmol/L (21.0-32.0); Chloride 102 mmol/L (98-107); Estimated GFR (African America 30 (>=60 mL/min/1.73m^2); Estimated GFR (Non-African Ame 24 (>=60 mL/min/1.73m^2); Globulin 4.3 g/dL; Glucose 172 mg/dL (74-106); Potassium 5.3 mmol/L (3.5-5.1); Sodium 139 mmol/L (136-145); Total Protein 6.7 g/dL (6.4-8.2)
--- NOTE | 2024-12-31 06:53 | P.DS_ITS ---
DS: Providers Provider Date of admission: 12/28/24 14:25 Primary care physician: Harry Valencia MD Consults: 12/28/24 16:07 Consult to Pharmacy Routine Consulting Provider: Reason for consultation: Please [place] me when Med Rec is Updated Has provider been notified: No Occupational Therapy Eval and Treat Routine Reason for consultation: Only if needed for Rehab Has provider been notified: No Physical Therapy Eval and Treat Routine Reason for consultation: Eval and Treat Has provider been notified: No DS: Diagnosis Discharge Diagnosis (1) Edema of both lower legs: (2) Pleural effusion: (3) Cirrhosis of liver with ascites: Plan Admission findings: Bradycardia, which would be paradoxical from the expected due to the anemia, respiratory distress, severe anemia with hemoglobin less than 5, acute kidney injury stage II, baseline creatinine of 0.71, creatinine admission 1.67 which is 235% above baseline. Decreased urine output as well but put it in stage II Severe anemia-hemoglobin is improved, but is down somewhat from yesterday, repeat 1 more unit today, if having further bleeding, so far no stools so doubt significant upper GI blood loss anemia I think this is more chronic, may need endoscopy tomorrow versus discharging tomorrow and setting up as an outpatient Acute combined CHF -BNP is elevated-will try Bumex drip after getting the unit of blood today. Acute kidney injury stage II-baseline creatinine 0.71, creatinine today 1.79 which is 252% above baseline, she does need further diuresis however so we will use Bumex drip Infiltrate left lower lobe but no other signs of infection-will hold off on antibiotics at the present time-no cough no fever Possible ascites on CT scan, may be related to the heart failure part versus liver, liver suggest possible cirrhosis we will work that up as an outpatient Mild coagulopathy secondary to Eliquis-holding Eliquis NIDDM-insulin sliding scale High blood cell count and urine but no symptoms, awaiting culture Hyperkalemia-resolved Admission status: Patient with severe anemia, hemoglobin less than 5, unable to give aggressive resuscitation from a chronic standpoint secondary to her acute combined congestive heart failure history, medically necessary treatment will span 2 midnights. Inpatient status. ? DS: Summary Hospital Course Hospital Course: Patient admitted after being treated as an outpatient for heart failure, significant fluid overload but also severe anemia in ER, hemoglobin less than 5, admitted, over the course of the hospital stay she received a total of 5 units of blood, her her hemoglobin came up to 9, and stayed at 9 this morning, so at this point although she does still have a little bit of fluid overload we will diurese 1 dose this morning and discharged to home later today, she does need follow-up with cardiology for bradycardia and GI for cirrhosis and scoping. Medications to this. I will follow-up with patient in the office Time Spent with Patient Time attestation: Total time spent providing and/or coordinating discharge services: Exam Constitutional Vital Signs, click to edit/add: Last Vital Signs Temp 97.5 F L 12/31/24 03:08 Pulse 47 L 12/31/24 05:44 Resp 20 12/31/24 03:08 BP 105/61 12/31/24 03:08 Pulse Ox 91 L 12/31/24 03:08 O2 Del Method Room Air 12/31/24 03:08 Documenting provider has reviewed patient's vital signs: yes Common normals: no apparent distress, oriented x3 and alert Respiratory Common normals: normal respiratory effort, no retractions and clear to auscultation bilaterally Auscultation: no rales (Resolved) Cardio Common normals: regular rate and regular rhythm GI Common normals: soft to palpation and non-tender; negative for Normal to inspection, nondistended, normoactive bowel sounds present (Obese) Extremity Common normals: abnormal to inspection (2+ edema unchanged from yesterday) General: normal exam except as noted DS: Data Data Completed and Pending Labs on day of discharge: Labs from last 24 hours 12/31/24 12/30/24 12/30/24 05:37 21:12 16:29 WBC 6.4 RBC 3.58 L Hgb 9.0 L Hct 30.2 L MCV 84.4 MCH 25.1 L MCHC 29.8 L RDW 20.0 H Plt Count 184 MPV 11.7 Neut % (Auto) 55.3 Lymph % (Auto) 36.5 Vernon % (Auto) 6.7 Eos % (Auto) 0.6 L Baso % (Auto) 0.6 Neut # (Auto) 3.5 Lymph # (Auto) 2.3 Vernon # (Auto) 0.4 Eos # (Auto) 0.0 Baso # (Auto) 0.0 Abs Immat Gran (auto) 0.02 Imm/Tot Granulo (auto) 0.3 Sodium 139 Potassium 5.3 H Chloride 102 Carbon Dioxide 26.7 Anion Gap 15.6 BUN 60.0 H Creatinine 2.02 H Est GFR ( Amer) 30 L Est GFR (Non-Af Amer) 24 L BUN/Creatinine Ratio 29.7 Glucose 172 H Calcium 8.6 Total Bilirubin 1.6 H AST 20 ALT 10 L Alkaline Phosphatase 99 NT-Pro-B Natriuret Pep 936.0 H Total Protein 6.7 Albumin 2.4 L Globulin 4.3 Albumin/Globulin Ratio 0.6 Stool Occult Blood POC Glucose 129 H 143 H Blood Type Antibody Screen Crossmatch 12/30/24 12/30/24 12/30/24 13:57 12:13 10:36 WBC RBC Hgb 9.1 L Hct 30.1 L MCV MCH MCHC RDW Plt Count MPV Neut % (Auto) Lymph % (Auto) Vernon % (Auto) Eos % (Auto) Baso % (Auto) Neut # (Auto) Lymph # (Auto) Vernon # (Auto) Eos # (Auto) Baso # (Auto) Abs Immat Gran (auto) Imm/Tot Granulo (auto) Sodium Potassium Chloride Carbon Dioxide Anion Gap BUN Creatinine Est GFR ( Amer) Est GFR (Non-Af Amer) BUN/Creatinine Ratio Glucose Calcium Total Bilirubin AST ALT Alkaline Phosphatase NT-Pro-B Natriuret Pep Total Protein Albumin Globulin Albumin/Globulin Ratio Stool Occult Blood Positive A POC Glucose 244 H Blood Type Antibody Screen Crossmatch 12/30/24 12/28/24 06:04 12:09 WBC RBC Hgb Hct MCV MCH MCHC RDW Plt Count MPV Neut % (Auto) Lymph % (Auto) Vernon % (Auto) Eos % (Auto) Baso % (Auto) Neut # (Auto) Lymph # (Auto) Vernon # (Auto) Eos # (Auto) Baso # (Auto) Abs Immat Gran (auto) Imm/Tot Granulo (auto) Sodium 141 Potassium 4.8 Chloride 105 Carbon Dioxide 25.9 Anion Gap 14.9 BUN 46.0 H Creatinine 1.79 H Est GFR ( Amer) 34 L Est GFR (Non-Af Amer) 28 L BUN/Creatinine Ratio 25.7 Glucose 214 H Calcium 8.7 Total Bilirubin 1.7 H AST 18 ALT 9 L Alkaline Phosphatase 97 NT-Pro-B Natriuret Pep 1124.0 H Total Protein 6.3 L Albumin 2.3 L Globulin 4.0 Albumin/Globulin Ratio 0.6 Stool Occult Blood POC Glucose Blood Type O Positive Antibody Screen Negative Crossmatch See Detail Discharge Plan Discharge Disposition: Home, Self-Care Condition: Fair Discharge Medications: New amiodarone 200 mg tablet 200 mg PO DAILY Qty: 30 11RF Continued metformin 500 mg tablet 1,000 mg PO BID ramipril 10 mg capsule 10 mg PO DAILY simvastatin 20 mg tablet 20 mg PO DAILY venlafaxine 75 mg capsule,extended release 24hr 75 mg PO DAILY magnesium oxide 400 mg (241.3 mg magnesium) Tablet 400 mg PO BID Qty: 60 11RF Eliquis 5 mg Tablet 5 mg PO BID Qty: 60 11RF (DME) lancets Misc See Rx Instructions .Route Qty: 200 0RF Rx Instructions: As directed pantoprazole 40 mg tablet,delayed release (DR/EC) 40 mg PO DAILY furosemide 20 mg tablet 20 mg PO DAILY ondansetron 4 mg tablet,disintegrating 4 mg PO Q8H PRN (Reason: nausea and vomiting) tizanidine 4 mg tablet 8 mg PO .QHS Discontinued amiodarone 200 mg tablet 200 mg PO BID metoprolol succinate 25 mg tablet extended release 24 hr 25 mg PO DAILY Print Language: Czech Forms: Portal Instructions
--- NOTE | 2024-12-31 07:52 | CM.NOTE ---
Rounds made with Dr. Valencia, pt will discharge today. Dr. Valencia's office will set pt up with GI doctor for outpatient f/u. Pt will discharge with Holter Monitor and f/u with Dr. Catalan ( [facility] secretrary will schedule). Pt will also f/u with Dr. Valencia this week and will schedule prior to discharge. Pt is active with services, pt can't remember what company.
--- NOTE | 2024-12-31 08:12 | CM.NOTE ---
Pt has Med [facility] and will continue with their services.
[2024-12-31] MEDS: ENSURE HP 237 ML LIQUID PO (08:39)
[2024-12-31] MEDS: PROSTAT 15 GM PROTEIN/100 CAL 30 ML LIQUID PACKET PO (08:39)
[2024-12-31] MEDS: MAGNESIUM OXIDE 400 MG TABLET PO (08:40)
[2024-12-31] MEDS: METFORMIN HCL 500 MG TABLET 1000 MG PO (08:41)
[2024-12-31] MEDS: VENLAFAXINE HCL ER 75 MG CAPSULE PO (08:41)
[2024-12-31] MEDS: LISINOPRIL 20 MG TABLET 40 MG PO (08:43)
[2024-12-31] MEDS: POLYETHYLENE GLYCOL 3350 17 GM POWDER PACKET PO (08:44)
[2024-12-31] MEDS: INSULIN ASPART 300 UNIT/3 ML PEN SUBQ (08:46)
[2024-12-31] MEDS: FUROSEMIDE 40 MG/4 ML VIAL 80 MG IVP (08:50)
--- NOTE | 2024-12-31 09:14 | SWNOTE1 ---
SW spoke to case management and pt is current with [address] and will resume services. Pt is discharging today. ISHMAEL sent ED note, H&P, prgoress notes, discharge summary, dc med rec, PT eval, and CRF to [address]
--- NOTE | 2025-01-01 14:20 | CM.DCFOLLOWU ---
1st attempt 01/01/25, no answer
--- NOTE | 2025-01-02 12:50 | CM.DCFOLLOWU ---
Person spoke with: Shirley How are you feeling? Much better How is your pain? No pain Did you understand your discharge instructions? Yes Do you have any questions about your discharge instructions? No Were you given any prescriptions at discharge? Yes Were you able to get your prescriptions filled? Yes Do you understand how to take your medications as ordered? Yes Do you have any questions about your follow up appointment and do you plan to keep your follow up appointment? No they are all scheduled and I will definitely be going. Is there anything else that you would like to discuss? No Questions/Comments/Concerns/Other:
--- NOTE | 2025-01-03 14:42 | CM.NOTE ---
Faxed urine culture final report to Dr. Valecnia.
== END 2024-12-31 12:08 | disposition home health service (06) | DRG 811 ==
LOC: ER 11:45 → MS 14:32
PROVIDERS: Internal Medicine; Admitting Provider Family Medicine; Emergency Provider Student in an Organized Health Care Education/Training Program; PCP Family Medicine; Visit Provider Family Medicine
DX: D62 Acute posthemorrhagic anemia (principal); I50.41 Acute combined systolic (congestive) and diastolic (congestive) heart failure; N17.9 Acute kidney failure, unspecified; R18.8 Other ascites; D68.9 Coagulation defect, unspecified; N39.0 Urinary tract infection, site not specified; K92.2 Gastrointestinal hemorrhage, unspecified; R06.03 Acute respiratory distress; I11.0 Hypertensive heart disease with heart failure; R91.8 Other nonspecific abnormal finding of lung field; E87.5 Hyperkalemia; K74.60 Unspecified cirrhosis of liver; E11.9 Type 2 diabetes mellitus without complications; Z79.84 Long term (current) use of oral hypoglycemic drugs; Z79.01 Long term (current) use of anticoagulants; Z79.899 Other long term (current) drug therapy; Z85.41 Personal history of malignant neoplasm of cervix uteri; Z87.442 Personal history of urinary calculi; G47.30 Sleep apnea, unspecified; Z90.49 Acquired absence of other specified parts of digestive tract; Z90.710 Acquired absence of both cervix and uterus; Z68.38 Body mass index [BMI] 38.0-38.9, adult; E66.9 Obesity, unspecified; B96.20 Unspecified Escherichia coli [E. coli] as the cause of diseases classified elsewhere
CPT/HCPCS: 36415; 36430; 71046; 71250; 74176; 80048; 80053; 80076; 81001; 82140; 82948; 83735; 83880; 84484; 85014; 85018; 85025; 85027; 85610; 85730; 86850; 86900; 86901; 86923; 87086; 87150; 87186; 90662; 90677; 93005; 94667; 94668; 94761; 97161; 97165; 97530; 99285; G0328; J1940; P9016

== ENCOUNTER 2025-02-01 08:51 | Outpatient (OUT) | payer MEDICARE, SELFPAY ==
--- NOTE | 2025-02-01 08:55 | US_ITS ---
The [address] [address] Patient Name: CONNIE WISE MRN: [id number] date: 1955 Sex: F Assigned Patient Location: [place] Current Patient Location: [place] Accession/Order Number: [id number] Exam Date: 02/01/2025 09:29 Report Date: 02/01/2025 09:38 At the request of: DAMIAN MCCARTHY Procedure: US right upper quadrant LIMITED RIGHT UPPER QUADRANT ABDOMINAL ULTRASOUND CLINICAL HISTORY: Cirrhosis Of Liver With Ascites. Prior cholecystectomy. COMPARISON: CT 12/28/2024 The gallbladder is surgically absent. No intra- or extrahepatic biliary dilatation is evident. The common duct measures 4 - 5 mm. There is coarsened hepatic echotexture and slightly nodular contour. No focal intrahepatic masses are seen. There is appropriate hepatopetal flow within the main portal vein. The. Visualized portions of the pancreas show no significant sonographic abnormality. Cursory evaluation of the right kidney reveals no hydronephrosis. There is a trace amount of perihepatic ascites. US/US right upper quadrant IMPRESSION: TRACE AMOUNT OF ASCITES. HEPATIC FINDINGS COMPATIBLE WITH REPORTED CIRRHOSIS. Impression dictated by: Lola Contreras M.D.02/01/2025 9:38 AM Dictation Location: [place] [address] Electronically authenticated by: [id number] Y Date: 02/01/2025 09:38
== END 2025-02-01 08:52 | disposition home or self-care (01) ==
LOC: US 08:51
PROVIDERS: PCP Family Medicine; Visit Provider Internal Medicine Gastroenterology
DX: K74.60 Unspecified cirrhosis of liver (principal); R18.8 Other ascites
CPT/HCPCS: 76705

== ENCOUNTER 2025-03-05 11:58 | Outpatient (OUT) | payer MEDICARE, SELFPAY ==
--- OUTSIDE RECORDS SUMMARY | 2025-03-05 12:19 | XMS_ITS | CCD ---
Author Organization [facility] Care Team Providers Care Brand Marketing Specialist Name Role Phone Soco Hernandez Unavailable CoxAshley mcgee Unavailable DR MARYJANE VALENCIA Consulting Unavailable HOY, DR WESLEY Primary Care Unavailable CONCHITAY, DR WESLEY Admitting Unavailable HOY, DR WESLEY Attending Unavailable CONCHITAY, DR WESLEY Consulting Unavailable GAIL, DR WESLEY Primary Care Unavailable CONCHITAY, DR WESLEY Admitting Unavailable HOY, DR WESLEY Attending Unavailable HOY, DR WESLEY Consulting Unavailable HOY, DR WESLEY Primary Care Unavailable CONCHITAY, DR WESLEY Admitting Unavailable GAIL, DR WESLEY Attending Unavailable MIGUEL ÁNGEL, DR LELAND Lemus Consulting Unavailable Maryjane Valencia Primary Care Physician Manoj Damon Admitting Unavailable Manoj Damon Attending Unavailable Howard Johnston Admitting Unavailable Howard Johnston Attending Unavailable Leland Del Rosario Admitting Unavailable Leland Del Rosario Attending Unavailable Manoj DAMON Attending Unavailable Maryjane Valencia Referring Unavailable Manoj DAMON Attending Unavailable Manoj DAMON Attending Unavailable DAMIAN GOMEZ Referring Unavailable MARYJANE VALENCIA Primary Care Unavailable Howard Johnston DO Attending Provider Miguel Ángel MARRERO, Leland Franklin Attending Provider [phone] ROGERS CATALAN Attending Unavailable AYDIN ESPINOZA Attending Unavailable ROGERS CATALAN Referring Unavailable ROGERS CATALAN Referring Unavailable ROGERS CATALAN Referring Unavailable ROGERS CATALAN Referring Unavailable ROGERS CATALAN Referring Unavailable ROGERS CATALAN Attending Unavailable JESUS ZAZUETA Referring Unavailable ROGERS CATALAN Attending Unavailable ROGERS CATALAN Admitting Unavailable ROGERS CATALAN Referring Unavailable ROGERS CATALAN Referring Unavailable ROGERS CATALAN Referring Unavailable ROGERS CATALAN Attending Unavailable AYDIN ESPINOZA Attending Unavailable JESUS ZAZUETA Referring Unavailable JESUS ZAZUETA Attending Unavailable JESUS ZAZUETA Admitting Unavailable AYDIN ESPINOZA Referring Unavailable DAMIAN GOMEZ Attending Unavailable Allergies Allergy Classification Reported Allergen(s) Allergy Type Date of Onset Reaction(s) Facility (2 sources) Sulfacetamide Drug Allergy 2 [facility] (1 source) Sulfonamides (Antibiotic) Drug allergy (disorder) 8 [facility] (3 sources) Sulfonamides (Antibiotic); Translations: [sulfa drugs] Drug allergy Weal (disorder) [facility] [place] (1 source) Sulfacetamide Drug Allergy 2 [facility] (3 sources) Sulfonamides (Antibiotic); Translations: [SULFA (SULFONAMIDE ANTIBIOTICS)] Propensity to adverse reactions to drug (disorder) 9 [facility] Medications Current Medications Medication Drug Class(es) Dates Sig (Normalized) Sig (Original) [id number] 200 actuat albuterol 0.09 mg/actuat metered dose inhaler (1 source) beta2-Adrenergic Agonist Start: 02-16-2022 take 2 puff(s) by inhalation every four to six hours as needed Albuterol Sulfate HFA 108 (90 Base) MCG/ACT 2 puffs as needed Inhalation every 4-6 hours for 14 days Jan, Active amiodarone hydrochloride 200 mg oral tablet (1 source) Antiarrhythmic Start: 02-12-2025 take 1 tablet by mouth once daily Amiodarone 200 mg tablet Active 200 MG PO Daily February 12, 2025 12:00am apixaban 5 mg oral tablet (3 sources) Factor Xa Inhibitor Start: 02-12-2025 take 1 tablet by mouth twice daily Apixaban (Eliquis) 5 mg tablet Active 5 MG PO Twice daily February 12, 2025 12:00am Start: 09-28-2024 take 1 tablet by abelino twice daily Eliquis 5 mg oral tablet 5 mg = 1 tab(s), Oral, BID, Refills(s) 0 Start Date: 09/28/24 Status: Ordered Aspir-81 (2 sources) Aspir-81 Active bumetanide 1 mg oral tablet (1 source) Loop Diuretic Start: 02-13-20 take 1 tablet by mouth once daily Bumetanide 1 mg tablet Active 1 MG PO Daily February 12, 2025 12:00am dextromethorphan hydrobromide 1.5 mg/ml / pyrilamine maleate 1.5 mg/ml oral solution (1 source) Uncompetitive Q-qzvmrm-K-aspartate Receptor Antagonist, Sigma-1 Agonist Start: 02-17-20 take 10 mL by mouth every eight hours [place] DM 7.5-7.5 MG/5ML 10 mL Orally every 8 hours for 5 days Jan, Active Diclofenac 75mg Tab-DR (2 sources) Start: 04-28-20 take 1 tablet by mouth twice daily Diclofenac 75mg Tab-DR 75 mg, Oral, BID, Refills(s) 0 Start Date: 04/28/20 Status: Ordered digoxin 0.25 mg oral tablet (1 source) Cardiac Glycoside Start: 02-13-20 take 1 tablet by mouth once daily Digoxin 250 mcg (0.25 mg) tablet Active 0.25 MG PO Daily February 12, 2025 12:00am fluticasone propionate 0.05 mg/actuat metered dose nasal spray (1 source) Corticosteroid Start: 02-17-20 take 1 spray(s) nasal route once daily Flonase Allergy Relief 50 MCG/ACT 1 spray in each nostril Nasally Once a day for 14 day(s) Jan, Active furosemide 20 mg oral tablet (1 source) Loop Diuretic Start: 02-13-20 take 1 tablet by mouth once daily Furosemide 20 mg tablet Active 20 MG PO Daily February 12, 2025 12:00am magnesium oxide 400 mg oral tablet (3 sources) Start: 02-13-20 take 1 tablet by mouth once daily Magnesium Oxide 400 mg (241.3 mg magnesium) tablet Active 400 MG PO Daily February 12, 2025 12:00am Start: 09-28-2024 take 1 tablet by abelino th twice daily magnesium oxide 400 mg Tab 400 mg = 1 tab(s), Oral, BID, Refills(s) 0 Start Date: 09/28/24 Status: Ordered metFORMIN hydrochloride 500 mg oral tablet (6 sources) Biguanide Start: 02-12-2025 take 1 tablet by mouth twice daily Metformin 500 mg tablet Active 500 MG PO Twice daily February 12, 2025 12:00am Start: 04-28-2020 take 2 tablets by [facility] twice daily metformin 500 mg Tab 1,000 [...] Date: 09/28/24 Status: Ordered ondansetron 4 mg disintegrating oral tablet (2 sources) Serotonin-3 Receptor Antagonist Start: 02-12-2025 Ondansetron 4 mg tablet,disintegr ating Active 4 MG PO EVERY 8-12 HOURS February 12, 2025 12:00am Start: 02-16-2022 take 1 tablet by [facility] every eight hours as needed Ondansetron HCl 4 MG 1 tablet Orally every 8 hours as needed for 3 days Jan, Active Ozempic (1 source) Ozempic Active pantoprazole 40 mg delayed release oral tablet (3 sources) Proton Pump Inhibitor Start: 02-12-2025 Pantoprazole 40 mg tablet,delayed release (DR/EC) Active MG PO February 12, 2025 12:00am Start: 09-28-2024 take 1 tablet by [facility] once daily Pantoprazole [address] Tab 40 mg = 1 tab(s), Oral, Daily, Refills(s) 0 Start Date: 09/28/24 Status: Ordered pioglitazone 30 mg oral tablet (2 sources) Peroxisome Proliferator Receptor alpha Agonist, Peroxisome Proliferator Receptor gamma Agonist, Thiazolidinedione Actos 30 MG Orally Active ramipril 10 mg oral capsule (5 sources) Angiotensin Converting Enzyme Inhibitor Start: 02-13-20 take 1 capsule by mouth once daily Ramipril 10 mg capsule Active 10 MG PO Daily February 12, 2025 12:00am Start: 04-28-2020 take 1 capsule by [facility] once daily ramipril 10 mg Cap 10 mg = 1 cap(s), Oral, Daily, Refills(s) 0 Start Date: 04/28/20 Status: Ordered simvastatin 20 mg oral tablet (4 sources) HMG-CoA Reductase Inhibitor Start: 02-12-2025 take 1 tablet by mouth once daily Simvastatin 20 mg tablet Active 20 MG PO Daily February 12, 2025 12:00am Start: 04-28-2020 take 1 tablet by abelino th once daily at bedtime simvastatin 20 mg Tab 20 mg = 1 tab(s), Oral, Once a day (at bedtime), Refills(s) 0 Start Date: 04/28/20 Status: Ordered Simvastatin Acti ve tiZANidine 4 mg oral tablet (5 sources) Central alpha-2 Adrenergic Agonist Start: 02-12-2025 take 1 tablet by mouth once daily at bedtime Tizanidine 4 mg tablet Active 4 MG PO Daily at bedtime February 12, 2025 12:00am Start: 09-28-2024 take 1 tablet by abelino th every eight hours as needed for muscle spasms Zanaflex 4 mg Tab 4 mg = 1 tab(s), Oral, q8hr, PRN muscle spasm, Refills(s) 0 Start Date: 09/28/24 Status: Ordered Zanaflex 4 MG Or ally Active venlafaxine 75 mg oral tablet (5 sources) Serotonin and Norepinephrine Reuptake Inhibitor Start: 02-12-2025 take 1 tablet by mouth once daily Venlafaxine 75 mg tablet Active 75 MG PO Daily February 12, 2025 12:00am Start: 04-28-2020 take 1 capsule by [facility] once daily venlafaxine 75 mg Cap-ER 75 mg = 1 cap(s), Oral, Daily, Refills(s) 0 Start Date: 04/28/20 Status: Ordered Vitamin D-3 1000 UNIT (2 sources) Vitamin D-3 1000 UNIT Orally Active Completed/Discontinued Medications Medication Drug Class(es) Dates Sig (Normalized) Sig (Original) Acetaminophen / HYDROcodone (2 sources) Opioid Agonist Start: 07-09-2015 take 1 tablet by mouth every six hours as needed for pain [place] 5-325 MG 1 tablet Orally every 6 hrs as needed for pain Jun, Not-Taking Start: 07-09-2015 take 1 tablet by abelino th every six hours as needed for pain [place] 5-325 MG 1 tablet Orally every 6 [...] Classification Problem Date Documented Da te Episodic/Chronic Anxiety disorders (1 source) Anxiety; Translations: [Anxiety disorder, unspecified] 02-12-2025 Chronic Cancer of uterus (3 sources) Endometrial carcinoma; Translations: [Malignant neoplasm of uterus] 04-28-2020 Chronic Cardiac dysrhythmias (5 sources) Atrial fibrillation; Translations: [Unspecified atrial fibrillation] Onset: 07-10-2024 09-28-2024 Chronic Cardiac dysrhythmias (2 sources) Palpitations; Translations: [Palpitations] Onset: 01-03-2025 Episodic Chronic kidney disease (3 sources) Chronic kidney disease, unspecified; Translations: [Chronic kidney disease] Onset: 09-30-2022 04-28-2020 Chronic Deficiency and other anemia (1 source) Anemia, unspecified; Translations: [ANEMIA UNSPECIFIED] Onset: 09-30-2022 Episodic Diabetes mellitus with complications (4 sources) Type 2 diabetes mellitus with hyperglycemia; Translations: [TYPE 2 DM W/HYPERGLYCEMIA] Onset: 09-24-2022 Chronic Diabetes mellitus without complication (3 sources) Diabetes mellitus; Translations: [Type 2 diabetes mellitus without complications] 04-28-2020 Chronic Disorders of lipid metabolism (8 sources) Pure hypercholesterolemi a, unspecified; Translations: [Hyperlipidemia, unspecified] Onset: 09-30-2022 09-28-2024 Chronic Diverticulosis and diverticulitis (2 sources) Diverticular disease 04-28-2020 Chronic Essential hypertension (4 sources) Essential (primary) hypertension; Translations: [Benign essential [...] Occult blood in stools 05-09-2020 Episodic Other gastrointestinal disorders (3 sources) Other ascites; Translations: [Other ascites] Onset: 01-23-2025 Episodic Other liver diseases (3 sources) Unspecified cirrhosis of liver; Translations: [Unspecified cirrhosis of liver] Onset: 01-23-2025 Chronic Other nutritional; endocrine; and metabolic disorders (2 sources) Body mass index 30+ - obesity 10-03-2024 Chronic Other nutritional; endocrine; and metabolic disorders (2 sources) Obese class III 09-28-2024 Chronic Saira-; endo-; and myocarditis; cardiomyopathy (except that caused by tuberculosis or sexually transmitted disease) (4 sources) Heart valve disorder; Translations: [Endocarditis, valve unspecified] Onset: 04-19-2024 09-28-2024 Chronic Pulmonary heart disease (2 sources) Pulmonary hypertension, unspecified; Translations: [Pulmonary hypertension, unspecified] Onset: 01-23-2025 Chronic Residual codes; unclassified (2 sources) Requires [...] Value Interpretation Reference Range Facility Office Visiton 02-26-2025 Follow-up visit [id number] Shirley Brian 1955 F Date Provider Department Center 02/26/2025 ROGERS BERNAL DAISY [facility] Family History Problem Relation Age of Onset No Known Problems Mother Diabetes Father No Known Problems Sister Heart disease Brother Family Status - Relation Status Age at Mother Father Sister Alive Brother Level of Service:26055 [place] OFFICE/OUTPATIENT ESTABLISHED MOD MDM 30 MIN Normal [facility] HPon 01-29-2025 HP H&P reviewed. The patient was examined and there are no changes to the H&P. Upper GI bleeding with melena and anemia with history of steatohepatitis. The patient is scheduled to have an upper endoscopy to rule out upper GI bleeding. Normal [facility] NURSNOTEon 01-29-2025 NURSPABLO RN reviewed discharg e instructions with patient and friend at bedside. No questions or concerns expressed at this time. Normal [facility] NURSNOTE Grounding patch removed skin dry and intact. Normal [facility] NURSNOTE Grounding patch applied to pt right posterior thigh skin dry and intact Normal [facility] POCT GLUCOSE METER UNSOLICIT ED RESULTSon 01-29-2025 Glucose [Mass/Vol] 248 mg/dL High 70-105 [facility] erica [facility] Comment on above: Order Comment: Waive d Testing in the ED is performed under the ED CLIA certificate #[id number]. Result Comment: ltol les Performed By: #### L [id number] ####[facility] (BETRAVIS)[address] [place] [address] Glucose [Mass/Vol] 276 mg/dL High 70-105 [facility] Comment on above: Order Comment: Waive d Testing in the ED is performed under the ED CLIA certificate #[id number]. Result Comment: ngro radha Performed By: #### L [id number] ####[facility] (BEAKER)[address] [facility] [place] [address] ACUTE HEPATITIS PANELon ANTI HCV W/PCR REFLX Non-Reactive Normal NRCT Pr [facility] Comment on above: Result Comment: NEW TEST METHOD NOTE If recent infection suspected, recommend repeat testing (>2 months). Zxqkzs-py-xlpukd ratio is <1.00. Performed By: #### 2 465-3, 2156-6, PINR, CMP, FEPR, 2324-2, 5130-0, 1834-1, 2064-4, TSHR, AHP, 2276-4, 15337-1, 6771-0 #### [facility] ([id number]) [address], [address] [place] [address] HEPATITIS A IGM Non-Reactive Normal NRCT [facility] Comment on above: Result Comment: NEW TEST METHOD Performed By: #### 2 465-3, 2156-6, PINR, CMP, FEPR, 2324-2, 5130-0, 1834-1, 2064-4, TSHR, AHP, 2276-4, 95062-5, 6771-0 #### [facility] ([id number]) [address], [address] [place] [address] HEPATITIS B CORE IGM Non-Reactive Normal NRCT Pr [facility] Comment on above: Result Comment: NEW TEST METHOD Performed By: #### 2 465-3, 7-6, PINR, CMP, FEPR, 2324-2, 5130-0, 1834-1, 2063-4, TSHR, AHP, 2276-4, 92720-4, 6771-0 #### [facility] ([id number]) [address], [address] [place] [address] HEPATITIS B SURF AG Non-Reactive Normal NRCT Pro [facility] Comment on above: Result Comment: NEW TEST METHOD Performed By: #### 2 465-3, 2157-6, PINR, CMP, FEPR, 2324-2, 5130-0, 1834-1, 2063-4, TSHR, AHP, 2276-4, 63875-6, 6771-0 #### [facility] ([id number]) [address], [address] [place] [address] AFP [Mass/Vol]on 01-23-2025 ALPHA FETOPROTEIN 2.6 ng/mL Normal 0-9.9 [facility] Comment on above: Performed By: #### 2 465-3, 2156-6, PINR, CMP, FEPR, 2324-2, 5130-0, 1834-1, 2063-4, TSHR, AHP, 2276-4, 88026-6, 6771-0 #### [facility] ([id number]) [address], [address] [place] [address] Aldolase [Catalytic activity /Vol]on 01-23-2025 ALDOLASE 5.4 U/L Normal 1.2-7.6 [facility] Comment on above: Result Comment: NOTE REFERENCE INTERVAL: Aldolase Access complete set of age- and/or gender-specific reference intervals for this test in the [facility] Test Directory ([facility]). Performed By: [facility] [address] [place] [address] Overnight Cashier: Bart Infante MD, PhD CLIA Number: [id number] Performed By: #### 2 465-3, 2157-6, PINR, CMP, FEPR, 2324-2, 5130-0, 1834-1, 2064-4, TSHR, AHP, 2276-4, 95602-5, 6771-0 #### [facility] ([id number]) [address], [address] [place] [address] Alpha 1 antitrypsin Nephelom etry [Mass/Vol]on 01-23-2025 ALPHA 1 ANTITRYPSIN 185 mg/dL Normal 83-199 [facility] Comment on above: Performed By: #### 2 465-3, 2157-6, PINR, CMP, FEPR, 2324-2, 5130-0, 1834-1, 4-4, TSHR, AHP, 2276-4, 74823-6, 6771-0 #### [facility] ([id number]) [address], [address] [place] [address] CK [Catalytic activity/Vol]o n 01-23-2025 CPK 27 U/L Normal 24-170 [facility] Comment on above: Performed By: #### 2 465-3, 2157-6, PINR, CMP, FEPR, 2324-2, 5130-0, 1834-1, 2063-4, TSHR, AHP, 2276-4, 50447-4, 6771-0 #### [facility] ([id number]) [address], [address] [place] [address] COMPREHENSIVE METABOLIC PANE Josh 01-23-2025 Albumin [Mass/Vol] 3.5 g/dL Normal 3.2-5.3 [facility] Comment on above: Performed By: #### 2 465-3, 2157-6, PINR, CMP, FEPR, 2324-2, 5130-0, 1834-1, 4-4, TSHR, AHP, 2276-4, 47980-0, 6771-0 #### [facility] ([id number]) [address], [address] [place] [address] ALP [Catalytic activity/Vol] 108 U/L Normal 39-130 [facility] Comment on above: Performed By: #### 2 465-3, 2157-6, PINR, CMP, FEPR, 2324-2, 5130-0, 1834-1, 4-4, TSHR, AHP, 2276-4, 72385-9, 6771-0 #### [facility] ([id number]) [address], [address] [place] [address] ALT [Catalytic activity/Vol] 13 U/L Normal 0-31 [facility] Comment on above: Performed By: #### 2 465-3, 2157-6, PINR, CMP, FEPR, 2324-2, 5130-0, 1834-1, 4-4, TSHR, AHP, 2276-4, 66865-8, 6771-0 #### [facility] ([id number]) [address], [address] [place] [address] Anion gap [Moles/Vol] 14 mmol/L Normal 5-15 [facility] Comment on above: Performed By: #### 2 465-3, 2157-6, PINR, CMP, FEPR, 2324-2, 5130-0, 1834-1, 4-4, TSHR, AHP, 2276-4, 16159-0, 6771-0 #### [facility] ([id number]) [address], [address] [place] [address] AST [Catalytic activity/Vol] 25 U/L Normal 0-41 [facility] Comment on above: Performed By: #### 2 465-3, 2157-6, PINR, CMP, FEPR, 2324-2, 5130-0, 1834-1, 4-4, TSHR, AHP, 2276-4, 63180-7, 6771-0 #### [facility] ([id number]) [address], [address] [place] [address] Bilirubin [Mass/Vol] 1.1 mg/dL Normal 0.3-1.2 [facility] Comment on above: Performed By: #### 2 465-3, 2157-6, PINR, CMP, FEPR, 2324-2, 5130-0, 1834-1, 4-4, TSHR, AHP, 2276-4, 63115-8, 6771-0 #### [facility] ([id number]) [address], [address] [place] [address] Calcium [Mass/Vol] 9.0 mg/dL Normal 8.5-10.5 [facility] Comment on above: Performed By: #### 2 465-3, 7-6, PINR, CMP, FEPR, 2324-2, 5130-0, 1834-1, 2063-4, TSHR, AHP, 2276-4, 83235-7, 6771-0 #### [facility] ([id number]) [address], [address] [place] [address] Chloride [Moles/Vol] 104 mmol/L Normal 98-109 [facility] Comment on above: Performed By: #### 2 465-3, 2156-6, PINR, CMP, FEPR, 2324-2, 5130-0, 1834-1, 4-4, TSHR, AHP, 2276-4, 45955-1, 6771-0 #### [facility] ([id number]) [address], [address] [place] [address] CO2 [Moles/Vol] 25 mmol/L Normal 22-32 [facility] Comment on above: Performed By: #### 2 465-3, 7-6, PINR, CMP, FEPR, 2324-2, 5130-0, 1834-1, 4-4, TSHR, AHP, 2276-4, 40719-8, 6771-0 #### [facility] ([id number]) [address], [address] [place] [address] Creatinine [Mass/Vol] 0.79 mg/dL Normal 0.40-1.00 [facility] Comment on above: Result Comment: METH OD TRACEABLE TO IDMS STANDARD Performed By: #### 2 465-3, 2156-6, PINR, CMP, FEPR, 2324-2, 5130-0, 1834-1, 4-4, TSHR, AHP, 2276-4, 75636-0, 6771-0 #### [facility] ([id number]) [address], [address] [place] [address] GFR/1.73 sq M.predicted among non-blacks MDRD (S/P/Bld) [Vol rate/Area] 81 mL/min/{1.73_m2} Normal >59 [facility] Comment on above: Result Comment: Reported eGFR is based on the CKD-EPI 2020 equation that does not use a race coefficient. Performed By: #### 2 465-3, 2156-6, PINR, CMP, FEPR, 2324-2, 5130-0, 1834-1, 4-4, TSHR, AHP, 2276-4, 06363-3, 6771-0 #### [facility] ([id number]) [address], [address] [place] [address] Glucose [Mass/Vol] 269 mg/dL High 65-99 [facility] Comment on above: Performed By: #### 2 465-3, 2156-6, PINR, CMP, FEPR, 2324-2, 5130-0, 1834-1, 4-4, TSHR, AHP, 2276-4, 84039-9, 6771-0 #### [facility] ([id number]) [address], [address] [place] [address] Potassium [Moles/Vol] 3.8 mmol/L Normal 3.5-5.0 [facility] Comment on above: Performed By: #### 2 465-3, 2156-6, PINR, CMP, FEPR, 2324-2, 5130-0, 1834-1, 4-4, TSHR, AHP, 2276-4, 43802-3, 6771-0 #### [facility] ([id number]) [address], [address] [place] [address] Protein [Mass/Vol] 7.4 g/dL Normal 6.0-8.0 [facility] Comment on above: Performed By: #### 2 465-3, 2156-6, PINR, CMP, FEPR, 2324-2, 5130-0, 1834-1, 4-4, TSHR, AHP, 2276-4, 33655-8, 6771-0 #### [facility] ([id number]) [address], [address] [place] [address] Sodium [Moles/Vol] 143 mmol/L Normal 134-146 [facility] Comment on above: Performed By: #### 2 465-3, 2156-6, PINR, CMP, FEPR, 2324-2, 5130-0, 1834-1, 4-4, TSHR, AHP, 2276-4, 21628-7, 6771-0 #### [facility] ([id number]) [address], [address] [place] [address] Urea nitrogen [Mass/Vol] 24 mg/dL Normal 5-27 [facility] Comment on above: Performed By: #### 2 465-3, 2156-6, PINR, CMP, FEPR, 2324-2, 5130-0, 1834-1, 4-4, TSHR, AHP, 2276-4, 96105-6, 6771-0 #### [facility] ([id number]) [address], [address] [place] [address] Ceruloplasmin [Mass/Vol]on 0 01-23-2025 CERULOPLASMIN 33 mg/dL Normal 18-58 [facility] Comment on above: Performed By: #### 2 465-3, 2157-6, PINR, CMP, FEPR, 2324-2, 5130-0, 1834-1, 4-4, TSHR, AHP, 2276-4, 64643-8, 6771-0 #### [facility] ([id number]) [address], [address] [place] [address] DNA double strand Ab Qn (S)o n 01-23-2025 DOUBLE STRANDED DNA <1 Normal <5 [facility] Comment on above: Result Comment: Interpretation-------- <5 Negative 5-9 Indeterminate >9 Positive Performed By: #### 2 465-3, 7-6, PINR, CMP, FEPR, 2324-2, 5130-0, 1834-1, 2063-4, TSHR, AHP, 2276-4, 35578-1, 6771-0 #### [facility] ([id number]) [address], [address] [place] [address] FERRITINon 01-23-2025 Ferritin [Mass/Vol] 5 ng/mL Low 11-307 [facility] Comment on above: Performed By: #### 2 465-3, 2157-6, PINR, CMP, FEPR, 2324-2, 5130-0, 1834-1, 2063-4, TSHR, AHP, 2276-4, 26569-0, 6771-0 #### [facility] ([id number]) [address] [place] [address] GGTon 01-23-2025 Gamma glutamyl transferase [Catalytic activity/Vol] 86 U/L High 7-33 [facility] Comment on above: Performed By: #### 2 465-3, 2157-6, PINR, CMP, FEPR, 2324-2, 5130-0, 1834-1, 2063-4, TSHR, AHP, 2276-4, 92211-3, 6771-0 #### [facility] ([id number]) [address] [place] [address] on 01-23-2025 HP -- Attestation signed by Damian Gomez MD at 01/23/2025 3:48 PM Seen and discussed with fellow, agree with assessment and plan. [facility] Gastroenterology New Patient Visit - History & Physical CHIEF COMPLAINT Chief Complaint Patient presents with New Patient EGD scheduled, was at [facility] and sent for an EGD but also Cirrhosis work up. She was never told she has Cirrhisis but overheard a Doctor say it to another Doctor. HISTORY OF PRESENT ILLNESS: Shirley Brian is a 69 y.o. female with a past medical history of hypertension, diabetes mellitus for approximately 30 years, dyslipidemia, atrial fibrillation on Eliquis, and newly diagnosed liver cirrhosis, referred to Hepatology and gastroenterology clinic to be established for further evaluation and management. The patient was recently hospitalized in October for atrial fibrillation with rapid ventricular response (A-fib RVR) in the setting of Clostridioides difficile colitis and severe dehydration, which led to volume overload and subsequent diuresis. During this hospitalization, she was found to have melena and anemia with a hemoglobin of 4.9 g/dL, requiring five units of blood transfusion. Subsequent evaluation noted ongoing melena for approximately two weeks post-hospitalization. She underwent an upper endoscopy and colonoscopy on November 06, which revealed gastric lesions and a single colonic polyp; however, the detailed endoscopy report is unavailable. She is now scheduled for an esophagogastroduodenos copy (EGD) on January 29 for further assessment of upper GI bleeding and variceal surveillance. Notably, she has a history of intermittent abdominal distension concerning for ascites, which was not present before her hospitalization. She denies current hematemesis, hematochezia, nausea, vomiting, or abdominal pain. Physical exam findings today include a non-tender, non-distended abdomen without evidence of shifting dullness. Her medications include Aldactone, amiodarone, metformin, omeprazole, and Eliquis, which has been held for two days per cardiology recommendation in preparation for the EGD. Given her history of cirrhosis with potential portal hypertension and ongoing anemia, further workup will include an updated liver function panel, complete blood count, and imaging to assess hepatic parenchyma and signs of portal hypertension. The EGD will focus on identifying and treating varices or other sources of upper GI bleeding. PREVIOUS LABS/IMAGING/ENDOSCOPY : EGD and Colonoscopy was done in [facility] 11/06/2025 HISTORY: Problem list: Patient Active Problem List Diagnosis Atrial fibrillation [...] difficile colitis Melena Occult blood in stools Past Medical History: Past Medical History: Diagnosis Date Abnormal ECG Anemia Anxiety Arrhythmia Atrial fibrillation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 [facility] Comment on above: Performed By: #### L IPID, CMP, TSH, T7 ####[facility] [address] [place] [address]Dr. Becky Josue Urea nitrogen [Mass/Vol] 14.0 mg/dL Normal 7.0-18.0 [facility] Comment on above: Performed By: #### L IPID, CMP, TSH, T7 ####[facility] [address] [place] [id number]. Becky Josue Urea nitrogen/Creatinine [Mass ratio] 19.4 mg/mg Normal [facility] Comment on above: Performed By: #### L IPID, CMP, TSH, T7 ####[facility] [address] [place] [id number]. Becky Josue TSHon 09-24-2022 TSH 2.117 uIU/mL Normal 0.358-3.740 [facility] Comment on above: Performed By: #### L IPID, CMP, TSH, T7 ####[facility] [address] [place] [id number]. Becky Josue VITAMIN D 25 OHon 09-24-2022 VIT D 25-OH 21.3 ng/mL Normal [facility] Comment on above: Performed By: #### I MARLYN VITMARY #### [facility] [address] [place] [address] [address] Becky Josue VIT D RANGES SEE BELOW Normal [facility] Comment on above: Result Comment: <20 ng/mL Vit D deficient 20 - <30 ng/mL Vit D insufficient 30 - 100 ng/mL Vit D sufficient >100 ng/mL Potential Toxicity Performed By: #### I MARLYN VITAD #### [facility] [address] [place] [address] [address] Becky Josue COVID Quick Testingon 2020 Result Negative [facility] Other MG MAMM SCREEN 3D SVEN CADon 10-12-2021 MG MAMM SCREEN 3D SVEN CAD Patient: SHIRLEY BRIAN Exam Date: 10/12/2021 : 1955 Gender:F Ordering : DR MARYJANE VALENCIA . Admission #: [id number] Family : Order #: [id number] CLICK HERE TO VIEW EXAM RADIOLOGY REPORT [...] breast cancer at age 66. LOCATION: [facility] BREAST COMPOSITION: Scattered areas fibroglandular density. [...] M.D. on 10/13/2021 at 12:22 Normal [facility] CBC AUTO DIFFon 10-03-2021 BASO # 0.0 103/ul Normal 0.0-0.1 [facility] Comment on above: Performed By: #### C BC #### [facility] [address] [place] [address] [address] Becky Josue Basophils/100 WBC (Bld) 0.4 % Normal 0.2-2.0 [facility] Comment on above: Performed By: #### C BC #### [facility] [address] [place] [address] [address] Becky Josue EO # 0.2 103/ul Normal 0.0-0.7 [facility] Comment on above: Performed By: #### C BC #### [facility] [address] [place] [address] [address] Becky Josue Eosinophils/100 WBC (Bld) 4.1 % Normal 0.9-7.0 [facility] Comment on above: Performed By: #### C BC #### [facility] [address] [place] [address] [address] Becky Josue Erythrocyte distribution width (RBC) [Ratio] 14.5 % Normal 11.0-15.0 [facility] Comment on above: Performed By: #### C BC #### [facility] [address] [place] [address] Dr. Becky Josue Hematocrit (Bld) [Volume fraction] 43.5 % Normal 36.0-48.0 [facility] Comment on above: Performed By: #### C BC #### [facility] [address] [place] [address] Dr. Becky Josue Hemoglobin (Bld) [Mass/Vol] 13.7 g/dL Normal 12.0-16.0 [facility] Comment on above: Performed By: #### C BC #### [facility] [address] [place] [address] Dr. Becky Josue IG # 0.02 10e3/ul Normal 0.00-0.03 [facility] Comment on above: Performed By: #### C BC #### [facility] [address] [place] [address] Dr. Becky Josue IG % 0.4 % Normal 0.0-0.5 [facility] Comment on above: Performed By: #### C BC #### [facility] [address] [place] [address] Dr. Becky Josue LYMPH # 1.6 103/ul Normal 1.2-3.8 [facility] Comment on above: Performed By: #### C BC #### [facility] [address] [place] [address] Dr. Becky Josue Lymphocytes/100 WBC (Bld) 32.0 % Normal 20.5-60.0 [facility] Comment on above: Performed By: #### C BC #### [facility] [address] [place] [address] Dr. Becky Josue MANUAL DIFF REQ NO Normal [facility] Comment on above: Performed By: #### C BC #### [facility] [address] [place] [address] Dr. Becky Josue MCH (RBC) [Entitic mass] 29.5 pg Normal 26.7-34.0 [facility] Comment on above: Performed By: #### C BC #### [facility] [address] [place] [address] [address] Becky Josue MCHC (RBC) [Mass/Vol] 31.5 g/dL Normal 29.9-35.2 [facility] Comment on above: Performed By: #### C BC #### [facility] [address] [place] [address] [address] Becky Josue MCV (RBC) [Entitic vol] 93.5 fL Normal 81.0-99.0 [facility] Comment on above: Performed By: #### C BC #### [facility] [address] [place] [address] Dr. Becky Josue MONO # 0.4 103/ul Normal 0.3-0.8 [facility] Comment on above: Performed By: #### C BC #### [facility] [address] [place] [address] Dr. Becky Josue Monocytes/100 WBC (Bld) 8.8 % Normal 1.7-12.0 [facility] Comment on above: Performed By: #### C BC #### [facility] [address] [place] [address] Dr. Becky Josue NEUT # 2.7 103/ul Normal 1.4-6.5 [facility] Comment on above: Performed By: #### C BC #### [facility] [address] [place] [address] Dr. Becky Josue Neutrophils/100 WBC (Bld) 54.3 % Normal 43.0-75.0 [facility] Comment on above: Performed By: #### C BC #### [facility] [address] [place] [address] Dr. Becky Josue Platelet mean volume (Bld) [Entitic vol] 10.4 fL Normal 9.5-13.5 [facility] Comment on above: Performed By: #### C BC #### [facility] [address] [place] [address] Dr. Becky Josue PLT 158 103/ul Normal 150-450 [facility] Comment on above: Performed By: #### C BC #### [facility] [address] [place] [address] [address] Becky Josue RBC 4.65 106/ul Normal 4.20-5.40 [facility] Comment on above: Performed By: #### C BC #### [facility] [address] [place] [address] [address] Becky Josue WBC 4.9 103/ul Normal 4.0-11.0 [facility] Comment on above: Performed By: #### C BC #### [facility] [address] [place] [address] [address] Becky Josue FREE THYROXINE INDEX T7on FTI 2.79 Normal [facility] Comment on above: Performed By: #### L IPID, CMP, T7, TSH ####[facility] [address] [place] [id number] Josue T3U 30.0 % Normal 23.5-40.5 [facility] Comment on above: Performed By: #### L IPID, CMP, T7, TSH ####[facility] [address] [place] [id number]. Becky Josue T4 [Mass/Vol] 9.30 ug/dL Normal 5.53-11.00 [facility] Comment on above: Performed By: #### L IPID, CMP, T7, TSH ####[facility] [address] [place] [id number]. Becky Josue GLYCOHEMOGLOBIN A1Con 2020 ADA RECOMMENDATION ADA THERAPEUTIC TARG ET 6.0 - 7.0 ACTION SUGGESTED > 7.0 Normal [facility] Comment on above: Performed By: #### A 1C #### [facility] [address] [place] [address] [address] Becky Josue Glucose [Mass/Vol] 229 mg/dL Normal [facility] Comment on above: Performed By: #### A 1C #### [facility] [address] [place] [address] [address] Becky Josue HbA1c (Bld) [Mass fraction] 9.6 % Critically high <=6.0 [facility] Comment on above: Performed By: #### A 1C #### [facility] [address] [place] [address] [address] Bekcy Josue IRONon 10-03-2021 Iron [Mass/Vol] 62.0 ug/dL Normal 37.0-170.0 [facility] Comment on above: Performed By: #### I MARLYN #### [facility] [address] [place] [address] [address] Becky Josue LIPID PROFILEon 10-03-2021 CHOL-HDL RATIO NORM SEE BELOW Normal [facility] Comment on above: Result Comment: 3.3 - 4.4 LOW RISK 4.4 - 7.1 AVERAGE RISK 7.1 - 11.0 MODERATE RISK >11.0 HIGH RISK Performed By: #### L IPID, CMP, T7, TSH #### [facility] [address] [place] [address] [address] Becky Josue Cholesterol [Mass/Vol] 172 mg/dL Normal <=200 [facility] Comment on above: Performed By: #### L IPID, CMP, T7, TSH #### [facility] [address] [place] [address] [address] Becky Josue Cholesterol in HDL [Mass/Vol] 38 mg/dL Normal [facility] Comment on above: Performed By: #### L IPID, CMP, T7, TSH #### [facility] [address] [place] [address] [address] Becky Josue Cholesterol in LDL [Mass/Vol] 89.0 mg/dL Normal [facility] Comment on above: Performed By: #### L IPID, CMP, T7, TSH #### [facility] [address] [place] [address] [address] Becky Josue Cholesterol.total/Padmini sterol in HDL [Mass ratio] 4.5 {ratio} Normal [facility] Comment on above: Performed By: #### L IPID, CMP, T7, TSH #### [facility] [address] [place] [address] [address] Becky Josue HDL NORMAL > or = 60 mg/dl - LO W CARDIOVASCULAR RISK <40 mg/dl - HIGH CARDIOVASCULAR RISK Normal [facility] Comment on above: Performed By: #### L IPID, CMP, T7, TSH #### [facility] [address] [place] [address] [address] Becky Josue LDL CALC NORMAL SEE BELOW Normal [facility] Comment on above: Result Comment: <100 mg/dl OPTIMAL 100 - 129 mg/dl NEAR OR ABOVE OPTIMAL 130 - 159 mg/dl BORDERLINE HIGH 160 - 189 mg/dl HIGH >190 mg/dl VERY HIGH Performed By: #### L IPID, CMP, T7, TSH #### [facility] [address] [place] [address] [address] Becky Josue Triglyceride [Mass/Vol] 225 mg/dL Critically high <=150 [facility] Comment on above: Performed By: #### L IPID, CMP, T7, TSH #### [facility] [address] [place] [address] [address] Becky Josue VLDL CALC 45.0 mg/dL Normal [facility] Comment on above: Performed By: #### L IPID, CMP, T7, TSH #### [facility] [address] [place] [address] [address] Becky Josue PROF 14(COMP METB)on 021 Albumin [Mass/Vol] 3.1 g/dL Critically low 3.5-5.0 [facility] Comment on above: Performed By: #### L IPID, CMP, T7, TSH #### [facility] [address] [place] [address] [address] Becky Josue Albumin/Globulin [Mass ratio] 0.8 {ratio} Normal [facility] Comment on above: Performed By: #### L IPID, CMP, T7, TSH #### [facility] [address] [place] [address] [address] Becky Josue ALP [Catalytic activity/Vol] 100 U/L Normal 38-126 [facility] Comment on above: Performed By: #### L IPID, CMP, T7, TSH #### [facility] [address] [place] [address] [address] Becky Josue ALT [Catalytic activity/Vol] 35 U/L Normal 9-52 [facility] Comment on above: Performed By: #### L IPID, CMP, T7, TSH #### [facility] [address] [place] [address] [address] Becky Josue Anion gap [Moles/Vol] 13.0 mmol/L Normal Th [facility] Comment on above: Performed By: #### L IPID, CMP, T7, TSH #### [facility] [address] [place] [address] Dr. Becky Josue AST [Catalytic activity/Vol] 27 U/L Normal 14-36 [facility] Comment on above: Performed By: #### L IPID, CMP, T7, TSH #### [facility] [address] [place] [address] Dr. Becky Josue Bilirubin [Mass/Vol] 0.8 mg/dL Normal 0.2-1.3 [facility] Comment on above: Performed By: #### L IPID, CMP, T7, TSH #### [facility] [address] [place] [address] Dr. Becky Josue Calcium [Mass/Vol] 8.9 mg/dL Normal 8.4-10.2 [facility] Comment on above: Performed By: #### L IPID, CMP, T7, TSH #### [facility] [address] [place] [address] Dr. Becky Josue Chloride [Moles/Vol] 103 mmol/L Normal 98-107 [facility] Comment on above: Performed By: #### L IPID, CMP, T7, TSH #### [facility] [address] [place] [address] Dr. Becky Josue CO2 [Moles/Vol] 30.3 mmol/L Critically high 22.0-30.0 [facility] Comment on above: Performed By: #### L IPID, CMP, T7, TSH #### [facility] [address] [place] [address] Dr. Becky Josue Creatinine [Mass/Vol] 0.72 mg/dL Normal 0.52-1.04 [facility] Comment on above: Performed By: #### L IPID, CMP, T7, TSH #### [facility] [address] [place] [address] [address] Becky Josue EGFR-AF BANGLADESHI >60 Normal >=60 [facility] Comment on above: Performed By: #### L IPID, CMP, T7, TSH #### [facility] [address] [place] [address] [address] Becky Josue EGFR-NON AF BANGLADESHI >60 Normal >=60 [facility] Comment on above: Performed By: #### L IPID, CMP, T7, TSH #### [facility] [address] [address] [address] Becky Josue Globulin (S) [Mass/Vol] 3.9 g/dL Normal [facility] Comment on above: Performed By: #### L IPID, CMP, T7, TSH #### [facility] [address] [place] [address] Dr. Becky Josue Glucose [Mass/Vol] 261 mg/dL Critically high 74-106 [facility] Comment on above: Performed By: #### L IPID, CMP, T7, TSH #### [facility] [address] [place] [address] [address] Becky Josue Potassium [Moles/Vol] 4.3 mmol/L Normal 3.4-5.0 [facility] Comment on above: Performed By: #### L IPID, CMP, T7, TSH #### [facility] [address] [address] [address] Becky Josue Protein [Mass/Vol] 7.0 g/dL Normal 6.1-8.2 [facility] Comment on above: Performed By: #### L IPID, CMP, T7, TSH #### [facility] [address] [address] [address] Becky Josue Sodium [Moles/Vol] 142 mmol/L Normal 137-145 [facility] Comment on above: Performed By: #### L IPID, CMP, T7, TSH #### [facility] [address] [address] [address] Becky Josue Urea nitrogen [Mass/Vol] 22.0 mg/dL Critically high 7.0-17.0 [facility] Comment on above: Performed By: #### L IPID, CMP, T7, TSH #### [facility] [address] [place], [place] [address] Dr. Becky Josue Urea nitrogen/Creatinine [Mass ratio] 30.6 mg/mg Normal [facility] Comment on above: Performed By: #### L IPID, CMP, T7, TSH #### [facility] [address] [place], [place] [address] Dr. Becky Josue TSHon 10-03-2021 TSH 2.809 uIU/mL Normal 0.470-4.680 [facility] Comment on above: Performed By: #### L IPID, CMP, T7, TSH ####[facility] [address] [place], [place] [address]VhDr. Becky Josue TSH RANGE SEE BELOW Normal [facility] Comment on above: Result Comment: <0.3 4 UIU/ml HYPERTHYROID 0.34-5.60 UIU/ml EUTHYROID >5.60 UIU/ml HYPOTHYROID Performed By: #### L IPID, CMP, T7, TSH ####[facility] [address] [place], [place] [address]TwDr. Becky Josue Vital Signs Date Time Vital Sign Value Performing Clinician Facility 02-12-2025 12:31-0400 Body height 167.64 cm Howard RockYou Work Phone: [facility] 02-12-2025 12:31-0400 Body mass index (BMI) [Ratio] 33 kg/m2 Hoawrd RockYou Work Phone: [facility] 02-12-2025 12:31-0400 Body temperature 98.4 [degF] Howard VasSol DO Work Phone: [facility] 02-12-2025 12:31-0400 Body weight 92.7 kg Howard RockYou Work Phone: [facility] 02-12-2025 12:31-0400 Diastolic blood pressure 66 mm[Hg] Howard Hay DO Work Phone: [facility] 02-12-2025 12:31-0400 Heart rate 73 /min Howard Hay DO Work Phone: [facility] 02-12-2025 12:31-0400 Respiratory rate 12 /min Howard Hay DO Work Phone: [facility] 02-12-2025 12:31-0400 SaO2% (BldA) [Mass fraction] 96 % Howard Hay DO Work Phone: [facility] 02-12-2025 12:31-0400 Systolic blood pressure 151 mm[Hg] Howard Hay DO Work Phone: [facility] 10-03-2024 14:06-0500 Blood Pressure Location Manoj NILL [facility] 10-03-2024 14:06-0500 Diastolic blood pressure 68 mm[Hg] Manoj NILL [facility] 10-03-2024 14:06-0500 Heart rate 72 /min Manoj NILL [facility] 10-03-2024 14:06-0500 Respiratory rate 16 /min Manoj NILL [facility] 10-03-2024 14:06-0500 Systolic blood pressure 132 mm[Hg] Manoj NILL [facility] 02-16-2022 12:30-0400 Body height 167.64 cm Ashley Sanchezler Other [facility] 02-16-2022 12:30-0400 Body mass index (BMI) [Ratio] 34.21 kg/m2 Ashley Cox Other [facility] 02-16-2022 12:30-0400 Body temperature 97.8 [degF] Ashley Cox Other [facility] 02-16-2022 12:30-0400 Body weight 96.16 kg Ashley Cox Other [facility] 02-16-2022 12:30-0400 Respiratory rate 18 /min Ashley Cox Other [facility] 02-16-2022 12:30-0400 SaO2% (BldA) [Mass fraction] 97 % Ashley Cox Other [facility] Other Encounters Encounter Date Encounter Type Care Provider Facility Start: 02-26-2025 End: 02-26-[address] [facility] Start: 02-12-2025 End: 02-12-2025 ambulatory Howard Johnston Work Phone: [facility] Work Phone: Start: 02-12-2025 End: 02-12-2025 Patient encounter procedure Howard Preston GIVENS Work Phone: [facility] Work Phone: Start: 02-07-[address] [facility] Start: 01-29-2025 End: 01-29-2025 ambulatory JESUS ZAZUETA [facility] Start: 01-23-2025 End: 01-23-2025 ambulatory DAMIAN GOMEZ [facility] Start: 01-23-2025 End: 01-23-2025 [facility] Start: 01-03-[address] [facility] Start: 12-18-2024 End: 12-18-[address] [facility] Start: 12-03-[address] [facility] Start: 11-27-2024 End: 11-27-2024 ambulatory Manoj R NILL [facility] Start: 11-27-2024 End: 11-27-2024 Patient encounter procedure Manoj R NILL [facility] Start: 11-18-2024 End: 11-19-2024 Non-patient / Non-visit Howard Johnston DO Work Phone: [facility] Work Phone: Start: 11-15-2024 End: 11-15-2024 ambulatory Leland Del Rosario Facility:[facility] Start: 11-15-2024 End: 11-15-2024 Departed Referred Howard Johnston DO Work Phone: [facility] Start: 11-14-2024 End: 11-14-2024 ambulatory Howard Johnston Facility:[facility] Start: 11-14-2024 End: 11-14-2024 Departed Referred Howard Johnston DO Work Phone: [facility] Start: 11-09-2024 End: 11-09-[address] [facility] Start: 11-07-2024 End: 11-07-2024 ambulatory Manoj R Nill Facility:[facility] Start: 11-07-2024 End: 11-07-2024 ambulatory Manoj R NILL Facility:[id number] Start: 11-02-[address] [facility] Start: 10-22-[address] [facility] Start: 10-08-[address] [facility] Start: 10-03-2024 End: 10-03-2024 ambulatory Maryjane Valencia Facility:[facility] Start: 10-03-2024 End: 10-03-2024 Patient encounter procedure Manoj R NILL [facility] Start: 09-13-[address] [facility] Start: 09-03-[address] [facility] Start: 08-06-2024 End: 08-06-[address] [facility] Start: 07-03-2024 End: 07-03-[address] [facility] Start: 04-19-2024 End: 04-19-2024 ambulatory AYDIN [facility] Start: 09-24-2022 End: 09-25-[address] MARYJANE VALENCIA Facility:[facility] Start: 02-16-2022 End: 02-16-2022 ambulatory Ashley Cox Other [facility] Other Start: 02-16-2022 Office outpatient vi sit 15 minutes Ashley Cox [facility] Start: 10-26-2021 End: 10-26-2021 ambulatory Soco Hernandez Other [facility] Other Start: 10-26-2021 Office outpatient vi sit 5 minutes Soco Hernandez [facility] Start: 10-12-2021 End: 10-13-[address] MARYJANE VALENCIA Facility:[facility] Start: 10-08-2021 Encounter for genera l adult medical examination without abnormal findings DR MARYJANE VALENCIA [facility] Start: 10-03-2021 End: 10-04-[address] MARYJANE VALENCIA Facility:[facility] Start: 10-03-2021 End: 10-04-2021 Encounter for general adult medical examination without abnormal findings DR MARYJANE VALENCIA Facility:[facility] Procedures Date Procedure Procedure Detail Performing Clinician Start: 11-15-2024 Aerobic microbial culture Howard Johnston DO Work Phone: Start: 11-15-2024 Anaerobic microbial culture Howard Johnston DO Work Phone: Start: 11-15-2024 Gram stain microscopy Howard Johnston DO Work Phone: Start: 11-14-2024 Bacteria identified in Blood by Culture Howard Johnston DO Work Phone: Start: 11-14-2024 Urine culture Howard Johnston DO Work Phone: Start: 11-07-2024 Colonoscopy Manoj KEYL Start: 11-07-2024 Esophagogastroduodenoscopy Manoj NILL Start: 05-21-2020 [...] Immunization Date Immunization Notes Care Provider [facility] 09-29-2021 SARS-CoV-2 (COVID-19 ) mRNA BNT-162b2 vax Manoj NILL [facility] 01-25-2021 SARS-CoV-2 (COVID-19 ) Ad26 vaccine, recombinant Manoj NILL [facility] Payers Date Payer Category Payer Self-pay 2021 Medicare [id number] 2.1 [id number] 1958 Unknown [id number]. [id number] 1955 Unknown [id number] 2.16.84 [id number] 1955 Unknown [id number] 2.16.84 [id number] 1955 Unknown [id number] 2.16.84 [id number] 1955 Unknown [id number] 2.16.8 [id number] 1955 Unknown [id number] 2.16.8 [id number] 1955 Unknown [id number] 2.16.8 [id number] 1955 Unknown [id number] 2.16. [id number] Unknown [id number] 2.16.8 [id number] Unknown [id number] 2.16.8 [id number] Unknown [id number] 2.16.8 [id number] Social History Date Type Detail Facility Sex Assigned At [facility] Start: 02-16-2022 End: 10-03-2024 Tobacco smoking status Never smoked tobacco (finding) [facility] Tobacco smoking status Never [facility] Start: 02-12-2025 Sex Female (finding) [facility] Start: 1955 Sex Assigned At Female F [facility] Functional Status Date Assessment Result Facility 10-03-2024 Functional Status N/A [facility] Clinical Notes 10-26-2021 to 02-26-2025 Note Date & Type Note Facility 02-26-2025 Note OR Electrophysiology Consult Note [facility] Reason for visit: Afib 02/26/25 Patient here for follow up from [facility]. Patient had fluid taken off and aslo had blood transfusions. Patient states she had an at [facility]. EGD showed 3 bleeding ulcers. Patient has loop monitor. EGD on 01/19/25 with ablations of AVM with argon plasma coagulation Review of Systems Cardiovascular: Positive for dyspnea on exertion, irregular heartbeat (racing) and leg swelling. Respiratory: Positive for shortness of breath. 12/19/24 She was admitted again for afib [...] palpitations. She was recently seen at the [facility] for A-fib RVR as she was admitted for diarrhea and palpitations. She was found to have C. difficile and was treated with antibiotics and converted to sinus rhythm on her own. She states she normally would get palpitations when she drinks caffeine and typically avoids caffeine, the day of her admission she believes she was given caffeinated coffee at [facility] and then began experience palpitations while [...] show any evidence of reversible ischemia. below [id number] at least 4 for age, gender, hypertension, [...] Past Medical History: Diagnosis Date Abnormal ECG Anemia Anxiety Arrhythmia Atrial fibrillation (CMS/HCC) C. difficile colitis Depression Diabetes mellitus (CMS/HCC) GI (gastrointestinal bleed) History of transfusion Hyperlipidemia Hypertension Liver disease PSH: Past Surgical History: Procedure Laterality Date APPENDECTOMY CHOLECYSTECTOMY HERNIA REPAIR HYSTERECTOMY SHOULDER SURGERY TONSILLECTOMY TONSILLECTOMY SH: Social Determinants of Health Tobacco Use: Low Risk (02/26/2025) Patient History Smoking Tobacco Use: Never Smokeless Tobacco Use: Never Passive Exposure: Not on file Alcohol Use: Not on file Financial Resource Strain: Not on file Food Insecurity: Not on file Transportation Needs: Not on file Physical Activity: Not on file Stress: Not on file Social Connections: Not on file Intimate Partner Violence: Unknown (01/12/2024) OR Safety & Environment Fear of Current or Ex-Partner: Not on file Emotionally Abused: Not on file Physically Abused: Not on file Sexually Abused: Not on file Physically or Sexually Abused: Not on file Depression: Not on file Housing Stability: Not on file Utilities: Not on file Health Literacy: Not on file Allergies: Allergies Allergen Reactions Sulfa (Sulfonamide Antibiotics) Hives Weight: 96.2kg Visit Vitals BP 142/59 (BP Location: Right arm, Patient Position: Sitting) Pulse 60 Ht 1.676 m (5' 6 ) Wt 96.2 kg (212 lb) SpO2 100% BMI 34.22 kg/m??? OB Status Postmenopausal Smoking Status Never BSA 2.12 m??? Meds: Current Outpatient Medications on File Prior to Visit Medication Sig Dispense Refill amiodarone (Pacerone) 200 mg tablet Take 2 tablets (400 mg) by mouth two times daily for 14 days, THEN 1 tablet (200 mg) in the morning. 146 tablet 0 diclofenac (Voltaren) (more content not included)... [facility] 01-29-2025 Note Patient: Shirley A Sa nchez Procedure Summary Date: 01/29/25 Room / Location: [facility] Endoscopy Anesthesia Start: 1155 Anesthesia Stop: 1223 Procedure: EGD Diagnosis: Hepatic cirrhosis, unspecified hepatic cirrhosis type, unspecified whether ascites present (CMS/HCC) Scheduled Providers: Jesus Zazueta MD; Henry Bull MD; KAILA Jeronimo Responsible Provider: Henry Bull MD Anesthesia Type: MAC ASA Status: 3 Anesthesia Type: MAC Vitals Value Taken Time BP 113/75 01/29/25 1235 Temp 36.1 01/29/25 1249 Pulse 79 01/29/25 1235 Resp 19 01/29/25 1235 SpO2 100 % 01/29/25 1235 Anesthesia Post Evaluation Patient location during evaluation: PACU Patient participation: complete - patient participated Level of consciousness: awake Pain score: 1 Pain management: adequate Airway patency: patent Cardiovascular status: acceptable Respiratory status: acceptable Patient is hemodynamically stable and is able to be discharged from PACU per anesthesia protocol. No notable events documented. [facility] 01-29-2025 Note Patient: Shirley A Sa nchez Procedure Information Date/Time: 01/29/25 1200 Scheduled providers: Jesus Zazueta MD; Henry Bull MD; KAILA Jeronimo Procedure: EGD Location: [facility] Endoscopy Relevant Problems Cardio ECHO 2023 LEFT VENTRICLE: Normal chamber size. Borderline left ventricular hypertrophy. Normal systolic function. LV EF: Normal left ventricular ejection fraction, (>55%). (+) Acute on chronic heart failure with preserved ejection fraction (CMS/HCC) (+) Atrial fibrillation (CMS/HCC) (+) Benign essential hypertension (+) Hypertension (+) Mitral valve insufficiency and aortic valve insufficiency Endo BMI 34, DM FBS 276 mg/dl given humalog /Renal (+) Chronic kidney disease Pulmonary (+) BERRY (dyspnea on exertion) Clinical information reviewed: Physical Exam Airway Mallampati: II TM distance: >3 FB Neck ROM: full Cardiovascular - normal exam Dental - normal exam Pulmonary - normal exam Abdominal Anesthesia Plan ASA 3 MAC The patient is not a current smoker. Patient was not previously instructed to abstain from smoking on day of procedure. Patient did not smoke on day of procedure. intravenous induction Anesthetic plan and risks discussed with patient. Plan discussed with CAA. Additional Equipment Requests [facility] 01-23-2025 Note -- Attestation signed by Damian Gomez MD at 01/23/2025 3:48 PM Seen and discussed with fellow, agree with assessment and plan. -- [facility] Gastroenterology New Patient Visit - History & Physical CHIEF COMPLAINT Chief Complaint Patient presents with New Patient EGD scheduled, was at [facility] and sent for an EGD but also Cirrhosis work up. She was never told she has Cirrhisis but overheard a Doctor say it to another Doctor. HISTORY OF PRESENT ILLNESS: Shirley Brian is a 69 y.o. female with a past medical history of hypertension, diabetes mellitus for approximately 30 years, dyslipidemia, atrial fibrillation on Eliquis, and newly diagnosed liver cirrhosis, referred to Hepatology and gastroenterology clinic to be established for further evaluation and management. The patient was recently hospitalized in October for atrial fibrillation with rapid ventricular response (A-fib RVR) in the setting of Clostridioides difficile colitis and severe dehydration, which led to volume overload and subsequent diuresis. During this hospitalization, she was found to have melena and anemia with a hemoglobin of 4.9 g/dL, requiring five units of blood transfusion. Subsequent evaluation noted ongoing melena for approximately two weeks post-hospitalization. She underwent an upper endoscopy and colonoscopy on November 06, which revealed gastric lesions and a single colonic polyp; however, the detailed endoscopy report is unavailable. She is now scheduled for an esophagogastroduodenoscopy (EGD) on January 29 for further assessment of upper GI bleeding and variceal surveillance. Notably, she has a history of intermittent abdominal distension concerning for ascites, which was not present before her hospitalization. She denies current hematemesis, hematochezia, nausea, vomiting, or abdominal pain. Physical exam findings today include a non-tender, non-distended abdomen without evidence of shifting dullness. Her medications include Aldactone, amiodarone, metformin, omeprazole, and Eliquis, which has been held for two days per cardiology recommendation in preparation for the EGD. Given her history of cirrhosis with potential portal hypertension and ongoing anemia, further workup will include an updated liver function panel, complete blood count, and imaging to assess hepatic parenchyma and signs of portal hypertension. The EGD will focus on identifying and treating varices or other sources of upper GI bleeding. PREVIOUS LABS/IMAGING/ENDOSCOPY: EGD and Colonoscopy was done in [facility] 11/06/2025 HISTORY: Problem list: Patient Active Problem List Diagnosis Atrial fibrillation [...] difficile colitis Melena Occult blood in stools Past Medical History: Past Medical History: Diagnosis Date Abnormal ECG Anemia Anxiety Arrhythmia Atrial fibrillation (CMS/HCC) C. difficile colitis Depression Diabetes mellitus (CMS/HCC) GI (gastrointestinal bleed) History of transfusion Hyperlipidemia Hypertension Liver disease Past Surgical History: Past Surgical History: Procedure Laterality Date APPENDECTOMY CHOLECYSTECTOMY HERNIA REPAIR HYSTERECTOMY SHOULDER SURGERY TONSILLECTOMY TONSILLECTOMY FAMILY HISTORY: Family History Problem Relation Name Age of Onset No Known Problems Mother Diabetes Father No Known Problems Sister No Known Problems Brother SOCIAL HISTORY: Social History Tobacco Use Smoking status: Never Smokeless tobacco: Never Vaping Use Vaping status: Never Used Substance Use Topics Alcohol use: Yes Comment: occasional Drug use: Never ALLERGIES: Sulfa (sulfonamide antibiotics) Current Medications: Current Outpatient Medic (more content not included)... [facility] 12-18-2024 Note OR Electrophysiology Consult Note [facility] Clinic Reason for visit: Patient here for follow up [facility] per Dr. Espinoza. 12/19/24 She was [...] well and occasionally feels palpitations. HPI: Shirley Brina is a 69 y.o. year old with past medical history of Hypertension, diabetes, dyslipidemia, palpitations. She was recently seen at the [facility] for A-fib RVR as she was admitted for diarrhea and palpitations. She was found to have C. difficile and was treated with antibiotics and converted to sinus rhythm on her own. She states she normally would get palpitations when she drinks caffeine and typically avoids caffeine, the day of her admission she believes she was given caffeinated coffee at [facility] and then began experience palpitations while already dealing with her diarrhea so she was seen by ER. She had also been experiencing lower extremity swelling and was diuresed and patient which has resolved. [facility] [...] show any evidence of reversible ischemia. below [id number] at least 4 for age, gender, hypertension, [...] on file Intimate Partner Violence: Unknown (01/12/2024) OR Safety & Environment Fear of Current or [...] morning. venlafaxine XR (more content not included)... [facility] 11-09-2024 Note OR Cardiology - [facility] Subjective Shirley Brian is a 69 y.o. year [...] edema, without long-term current use of insulin ([facility]) Diverticulosis History of Clostridium difficile colitis Melena [...] RVR when she was admitted to the [facility] with diarrhea due to C. difficile [...] Diagnosis Date Abnormal ECG Arrhythmia Atrial fibrillation ([facility]) C. difficile colitis Diabetes mellitus ([facility]) Hyperlipidemia Hypertension Past Surgical History: Procedure Laterality [...] Ht 1.676 m (more content not included)... [facility] 10-03-2024 Note General Surgery Offi ce/Clinic Note [...] 5 mg oral (more content not included)... [facility] Comment on above: Result Comment: Elec tronically Signed By: JOSE ALBERTO MARRERO, Manoj Wilson\Date and Time Signed: 10/03/24 14:54 EST 08-06-2024 Note LOOP IMPLANT PROCEDU RE NOTE DATE OF PROCEDURE: 08/06/24 PERFORMING PHYSICIAN: Dr. Rogers Catalan WASH DRILLER: REJI INDICATIONS FOR PROCEDURE: 1. SVT/AF surveillance [...] the sternum on the left using the [employer] tool. The loop recorder was then injected [...] the incision. Rogers Catalan MD Cardiac Electrophysiology. [facility] 07-03-2024 Note OR Electrophysiology Consult Note [facility] Reason for visit: Afib 07/03/24 Pt is doing well and occasionally feels palpitations. HPI: Shirley Brian is a 68 y.o. year old with past medical history of Hypertension, diabetes, dyslipidemia, palpitations. She was recently seen at the [facility] for A-fib RVR as she was admitted for diarrhea and palpitations. She was found to have C. difficile and was treated with antibiotics and converted to sinus rhythm on her own. She states she normally would get palpitations when she drinks caffeine and typically avoids caffeine, the day of her admission she believes she was given caffeinated coffee at [facility] and then began experience palpitations while already dealing with her diarrhea so she was seen by ER. She had also been experiencing lower extremity swelling and was diuresed and patient which has resolved. She for some reason was deferred to [facility] for follow up and stress [...] show any evidence of reversible ischemia. below [id number] at least 4 for age, gender, hypertension, [...] on file Intimate Partner Violence: Unknown (01/12/2024) OR Safety & Environment Fear of Current or [...] on external ear (more content not included)... [facility] 04-19-2024 Note OR Cardiology - [facility] Subjective Shirley Brian is a [...] RVR when she was admitted to the [facility] with diarrhea due to C. difficile [...] V1 to V3, (more content not included)... [facility] 04-19-2024 Note Patient here for 6 [...] All other systems reviewed and are negative. [facility] 02-16-2022 Evaluation note Encounter Date [...] exam and duration of symptoms. May use [place] or Flonase as directed. May use Zofran [...] Patient care instructions given in writting by [facility] Care At Home document [facility] Other 12-06-2021 Evaluation note* Encounter Date Diagnosis [...] Patient care instructions given in writting by [facility] Care At Home document. [facility] Other Evaluation + Plan note No data available for this section [facility] Evaluation noteNo assessment information available [facility] Work Phone: History general Narrative - Reported* Type Description Date Medical History Diabetes Medical History HTN (hypertension) Medical History Anxiety Medical History Uterine cancer Surgical History hysterectomy Surgical History C section Surgical History tonsillectomy Surgical History appendectomy Surgical History cholecystectomy Surgical History colonoscopy Surgical History biopsy Hospitalization History pneumonia Hospitalization History see above [facility] Other Hospital Discharge instructions No data available for this section [facility] note No data available for this section [facility] Summary Purpose Family History No Family History Records Found Relationship Condition Age at Onset Recorded Date/T keyanna father Diabetes mellitus Unknown Unknown Advance Directives No Advanced Directives Records Found Advance Directive Response Recorded Date/ Time Advance Directives No December 10, 2024 9:39am Chief Complaint and Reason for Visit Chief Complaint Admit Date Unknown November 14, 2024 11:30pm Unknown November 15, 2024 1:33pm right arm/ knee scrape after fallFebruary 12, 2025 12:04pm Additional Source Comments REASON FOR VISIT (unrecogniz ed section and content) #14 RED BUICK, EXPOSED, COVI D Nurse Visit- Self PayBLACK CRV, B/A, SOB, COUGH INFORMATION SOURCE (unrecogn ized section and content) DATE CREATED AUTHOR 10/01/2022 [facility] DATE CREATED AUTHOR 'S ORGANIZ ATION 11/29/2024 [facility] DATE CREATED AUTHOR AUTHOR'S ORGANIZ ATION 11/30/2024 Les Gandhi [facility] DATE CREATED AUTHOR AUTHOR'S ORGANIZ ATION 01/25/2025 [facility] DATE CREATED AUTHOR AUTHOR'S ORGANIZ ATION 02/28/2025 [facility] Patient Care team informatio n (unrecognized section and content) Team Status: Active Member Role Status Dates NON STAFF Primary Care Provider Active Team Status: Inactive Member Role Status Dates Howard Johnston DO Attending Provider Active Start: November 14, 2024 End: November 14, 2024 Team Status: Inactive Member Role Status Dates Leland Del Rosario MD Attending Provider Active Start: November 15, 2024 End: November 15, 2024 Team Status: Active Member Role Status Dates Phil Cervantes DO Attending Provider Active Sta rt: November 18, 2024 End: November 19, 2024 Maryjane Valencia MD Referring Provider Active Sta rt: November 18, 2024 End: November 19, 2024 Team Status: Inactive Member Role Status Dates Ashley Cox APRN Attending Provider Active Start: February 12, 2025 End: February 12, 2025 NON STAFF Primary Care Provider Active Start: February 12, 2025 End: February 12, 2025 Goals (unrecognized section and content) Goals may be documented in a n alternate section FOR RECORDS PERTAINING TO PATIENTS WHO ARE [...] BE BASED ON THE PRIMARY CLINICAL RECORDS. [employer] provides no warranty or guarantee of the accuracy or completeness of information in this document.
[2025-03-05 12:49] LABS: Basophils Percent Auto 0.3 % (0.2-2.0); Eosinophils Absolute Auto 0.1 10^3/uL (0.0-0.7); Eosinophils Percent Auto 3.1 % (0.9-7.0); Lymphocytes Absolute Auto 1.3 10^3/uL (1.2-3.8); Lymphocytes Percent Auto 34.9 % (20.5-60.0); Mean Corpuscular HGB Conc 27.2 g/dL (29.9-35.2); Mean Corpuscular Volume 79.8 fL (81.0-99.0); Mean Platelet Volume 11.6 fL (9.5-13.5); Monocytes Absolute Auto 0.4 10^3/uL (0.3-0.8); Monocytes Percent Auto 11.2 % (1.7-12.0); Neutrophils Absolute Auto 1.9 10^3/uL (1.4-6.5); Neutrophils Percent Auto 50.5 % (43.0-75.0); Platelet Count 159 10^3/uL (150-450); Red Blood Count 2.58 10^6/uL (4.20-5.40); Red Cell Distribution Width 17.7 % (11.0-15.0); White Blood Count 3.8 10^3/uL (4.0-11.0)
[2025-03-05 13:07] LABS: INR 1.26; Partial Thromboplastin Time 31.5 sec (22.3-36.2); Prothrombin Time 13.1 sec (9.0-11.6)
[2025-03-05 13:14] LABS: Mean Corpuscular Hemoglobin 21.7 pg (26.7-34.0)
[2025-03-05 13:15] LABS: Hematocrit 20.6 % (36.0-48.0); Hemoglobin 5.6 g/dL (12.0-16.0)
[2025-03-05 14:12] LABS: Alanine Aminotransferase 20 U/L (14-59); Albumin Globulin Ratio 0.7; Albumin Level 2.7 g/dL (3.4-5.0); Alkaline Phosphatase 117 U/L (46-116); Anion Gap 17.2; Aspartate Amino Transferase 28 U/L (15-37); BUN Creatinine Ratio 25.5; Calcium 8.4 mg/dL (8.5-10.1); Chloride 107 mmol/L (98-107); Estimated GFR (African America >60 (>=60 mL/min/1.73m^2); Estimated GFR (Non-African Ame 54 (>=60 mL/min/1.73m^2); Glucose 179 mg/dL (74-106); Potassium 4.2 mmol/L (3.5-5.1); Sodium 144 mmol/L (136-145); Total Protein 6.7 g/dL (6.4-8.2)
== END 2025-03-05 11:59 | disposition home or self-care (01) ==
LOC: LAB 11:59
PROVIDERS: PCP Family Medicine; Visit Provider Family Medicine
DX: D64.9 Anemia, unspecified (principal); D50.0 Iron deficiency anemia secondary to blood loss (chronic); I10 Essential (primary) hypertension
CPT/HCPCS: 36415; 80053; 82728; 83540; 85025; 85610; 85730

== ENCOUNTER 2025-03-05 14:22 | Inpatient (IN) | payer MEDICARE, SELFPAY ==
[2025-03-05 14:35] VITALS: BP 137/56; PULSE 66; TEMP 36.7; O2SAT 100; BMI 32.3
--- NOTE | 2025-03-05 14:47 | ECG_ITS ---
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 Measurements Intervals [place] Rate: 64 P: 55 HI: 198 QRS: 75 QRSD: 76 T: 90 QT: 384 QTc: 393 Interpretive Statements 1100 Sinus rhythm 4068 Nonspecific Twave abnormality 9130 borderline ECG Compared to ECG 12/28/2024 19:24:10 Ventricular premature complex(es) no longer present Electronically Signed On 03-05-2025 19:33:52 EDT by RUFINA CROUCH M.D.
--- NOTE | 2025-03-05 14:50 | ED.GENADUL1 ---
HPI HPI - General Adult General Chief complaint: Recheck/Abnormal Lab/Rx Stated complaint: ABNORMAL LAB Time Seen by Provider: 03/05/25 14:26 Source: patient Mode of arrival: walk-in Limitations: no limitations History of Present Illness HPI narrative: This 69-year-old female has been experiencing exertional shortness of breath for the last couple weeks and had outpatient blood work done today which showed a hemoglobin of 5.6. She was directed to the ED. She also reports abdominal bloating. She has a history of chronic atrial fibrillation and takes Eliquis. She had EGD done at [facility] [[email or web address] last month and states that 3 ulcers were found in the stomach which were cauterized. Patient denies alcohol use ever. Related Data Home Medications ?Medication ?Instructions ?Recorded ?Confirmed metformin 500 mg tablet 1,000 mg PO BID 05/23/23 03/05/25 ramipril 10 mg capsule 10 mg PO DAILY 05/23/23 03/05/25 simvastatin 20 mg tablet 20 mg PO DAILY 05/23/23 03/05/25 venlafaxine 75 mg capsule,extended 75 mg PO DAILY 05/23/23 03/05/25 release 24 hr pantoprazole 40 mg tablet,delayed 40 mg PO DAILY 11/15/24 03/05/25 release furosemide 20 mg tablet 20 mg PO DAILY 12/28/24 03/05/25 ondansetron 4 mg disintegrating 4 mg PO Q8H PRN nausea and vomiting 12/28/24 03/05/25 tablet tizanidine 4 mg tablet 8 mg PO .QHS 12/28/24 03/05/25 Previous Rx's ?Medication ?Instructions ?Recorded apixaban 5 mg tablet (Eliquis) 5 mg PO BID #60 tabs 05/25/23 magnesium oxide 400 mg (241.3 mg 400 mg PO BID #60 tabs 05/25/23 magnesium) tablet lancets #200 ea 11/02/24 amiodarone 200 mg tablet 200 mg PO DAILY #30 tabs 12/31/24 Allergies Allergy/AdvReac Type Severity Reaction Status Date / Time Sulfa (Sulfonamide AdvReac Mild Hives Verified 03/05/25 14:34 Antibiotics) Opioid HPI Opioid Management Most Recent Opioid Data: Last Pain Scale 0 11/19/24 06:16 11/19/24 Last Pain Intensity 5 11/16/24 08:29 11/16/24 Last ORT Total Score 0 12/28/24 14:42 12/28/24 Last ORT Risk Category Low Risk 12/28/24 14:42 12/28/24 Review of Systems ROS Status of ROS 10 or more systems reviewed and unremarkable except as noted in history and below [facility] Medical History Edema of both lower legs ?R60.0 - Localized edema (ICD-10) Pleural effusion ?J90 - Pleural effusion, not elsewhere classified (ICD-10) Cirrhosis of liver with ascites ?K74.60 - Unspecified cirrhosis of liver (ICD-10) ?R18.8 - Other ascites (ICD-10) Acute hyperkalemia ?E87.5 - Hyperkalemia (ICD-10) Acute kidney failure ?N17.9 - Acute kidney failure, unspecified (ICD-10) Symptomatic anemia ?D64.9 - Anemia, unspecified (ICD-10) Acute dehydration ?E86.0 - Dehydration (ICD-10) Acute kidney injury ?N17.9 - Acute kidney failure, unspecified (ICD-10) Septic shock ?A41.9 - Sepsis, unspecified organism (ICD-10) ?R65.21 - Severe sepsis with septic shock (ICD-10) Atrial fibrillation with rapid ventricular response ?I48.91 - Unspecified atrial fibrillation (ICD-10) Sepsis ?A41.9 - Sepsis, unspecified organism (ICD-10) Hypertension ?I10 - Essential (primary) hypertension (ICD-10) Diabetes ?E11.9 - Type 2 diabetes mellitus without complications (ICD-10) Dyslipidemia ?E78.5 - Hyperlipidemia, unspecified (ICD-10) Hypomagnesemia ?E83.42 - Hypomagnesemia (ICD-10) Acute hyperglycemia ?R73.9 - Hyperglycemia, unspecified (ICD-10) Cervical cancer ?C53.9 - Malignant neoplasm of cervix uteri, unspecified (ICD-10) Osteoarthritis ?M19.90 - Unspecified osteoarthritis, unspecified site (ICD-10) Sleep apnea ?G47.30 - Sleep apnea, unspecified (ICD-10) Kidney stones ?N20.0 - Calculus of kidney (ICD-10) Cataract ?H26.9 - Unspecified cataract (ICD-10) Palpitations ?R00.2 - Palpitations (ICD-10) Anemia ?D64.9 - Anemia, unspecified (ICD-10) Rotator cuff arthropathy of left shoulder ?M12.812 - Other specific arthropathies, not elsewhere classified, left shoulder (ICD-10) Atrial fibrillation with rapid ventricular response ?I48.91 - Unspecified atrial fibrillation (ICD-10) Surgical History H/O repair of rotator cuff ?Z98.890 - Other specified postprocedural states (ICD-10) H/O section ?Z98.891 - History of uterine scar from previous surgery (ICD-10) History of tonsillectomy ?Z90.89 - Acquired absence of other organs (ICD-10) History of cholecystectomy ?Z90.49 - Acquired absence of other specified parts of digestive tract (ICD-10) History of appendectomy ?Z90.49 - Acquired absence of other specified parts of digestive tract (ICD-10) H/O: hysterectomy ?Z90.710 - Acquired absence of both cervix and uterus (ICD-10) Family History Grandmother Family history of cancer Father Family history of diabetes mellitus Grandfather Family history of cancer Brother Family history of hypertension Social History Within the past year, how often did you have a drink containing alcohol: monthly or less Within the past year, how often did you have six or more drinks on one occasion: never Smoking status: Never smoker Non-prescribed substance use: denies use 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 Highest level of school completed/degree received: Bachelor's degree Do you want help with school or training: No Are you now , , , , never or living with a partner: never In a typical week, how many times do you talk on the telephone with family, friends, or neighbors: 3 or more times per week How often do you get together with friends or relatives: once per week How often do you attend jew or mormonism services: 4 or more times per year Do you belong to any clubs or organizations such as jew groups unions, fraternal or athletic groups, or school groups: yes Total score: 3 Score interpretation: A score of greater than or equal to 2 indicates the lowest level of social isolation. Little interest or pleasure in doing things: not at all Feeling down, depressed, or hopeless: not at all Feel stressed/tense/nervous/anxious/difficulty sleeping: not at all Life stressors: recent of family or friend Due to disability, difficulty making decisions: No Exam Narrative Exam Narrative: Patient is pale in appearance but she is not hypotensive or tachycardic. Speech and mentation are clear and intact. There is no facial asymmetry she moves all extremities actively. HEENT exam is normal to inspection. There is marked conjunctival pallor. Lung sounds are clear to auscultation bilaterally. Heart has regular rate and rhythm. Abdomen is protuberant, soft nontender and there is no organomegaly. Lower extremities are warm and dry with minimal edema and no unilateral leg swelling. Constitutional Vital Signs, click to edit/add: Last Vital Signs Temp 98.1 F 03/05/25 14:35 Pulse 66 03/05/25 14:35 Resp 18 03/05/25 14:35 BP 137/56 03/05/25 14:35 Pulse Ox 100 03/05/25 14:35 O2 Del Method Room Air 03/05/25 14:35 Course Vital Signs Vital signs: Vital Signs Temperature 98.1 F 03/05/25 14:35 Pulse Rate 66 03/05/25 14:35 Respiratory Rate 18 03/05/25 14:35 Blood Pressure 137/56 03/05/25 14:35 Pulse Oximetry 100 03/05/25 14:35 Oxygen Delivery Method Room Air 03/05/25 14:35 Temperature 98.1 F 03/05/25 14:35 Pulse Rate 66 03/05/25 14:35 Respiratory Rate 18 03/05/25 14:35 Blood Pressure 137/56 03/05/25 14:35 Pulse Oximetry 100 03/05/25 14:35 Oxygen Delivery Method Room Air 03/05/25 14:35 Medical Decision Making MDM Narrative Medical decision making narrative: Patient's twelve-lead EKG is interpreted by me and shows sinus rhythm with T wave flattening and no acute ST elevation. Her hemoglobin is 5.8. This is lower than her baseline which runs around 7 or 8[address] I contacted Dr. Valencia and the plan is to admit her for transfusion. Lab Data Labs: Lab Results 03/05/25 Range/Units 14:45 WBC 4.1 (4.0-11.0) 10^3/uL RBC 2.69 L (4.20-5.40) 10^6/uL Hgb 5.8 L* (12.0-16.0) g/dL Hct 21.6 L* (36.0-48.0) % MCV 80.3 L (81.0-99.0) fL MCH 21.6 L (26.7-34.0) pg MCHC 26.9 L (29.9-35.2) g/dL RDW 17.8 H (11.0-15.0) % Plt Count 172 (150-450) 10^3/uL MPV 11.3 (9.5-13.5) fL Neut % (Auto) 48.2 (43.0-75.0) % Lymph % (Auto) 37.4 (20.5-60.0) % Surry % (Auto) 9.8 (1.7-12.0) % Eos % (Auto) 3.7 (0.9-7.0) % Baso % (Auto) 0.7 (0.2-2.0) % Neut # (Auto) 2.0 (1.4-6.5) 10^3/uL Lymph # (Auto) 1.5 (1.2-3.8) 10^3/uL [place] # (Auto) 0.4 (0.3-0.8) 10^3/uL Eos # (Auto) 0.2 (0.0-0.7) 10^3/uL Baso # (Auto) 0.0 (0.0-0.1) 10^3/uL Abs Immat Gran (auto) 0.01 (0.00-0.03) 10^3/uL Imm/Tot Granulo (auto) 0.2 (0.0-0.5) % Sodium 142 (136-145) mmol/L Potassium 4.2 (3.5-5.1) mmol/L Chloride 106 (98-107) mmol/L Carbon Dioxide 24.8 (21.0-32.0) mmol/L Anion Gap 15.4 BUN 25.0 H (7.0-18.0) mg/dL Creatinine 1.08 H (0.55-1.02) mg/dL Est GFR ( Amer) >60 (>=60 mL/min/1.73m^2) Est GFR (Non-Af Amer) 50 L (>=60 mL/min/1.73m^2) BUN/Creatinine Ratio 23.1 Glucose 195 H (74-106) mg/dL Lactate 4.5 H* (0.4-2.0) mmol/L Calcium 8.5 (8.5-10.1) mg/dL Magnesium 1.8 (1.8-2.4) mg/dL Total Bilirubin 1.0 (0.2-1.0) mg/dL Direct Bilirubin 0.4 H (0.0-0.2) mg/dL AST 30 (15-37) U/L ALT 21 (14-59) U/L Alkaline Phosphatase 123 H (46-116) U/L Troponin I High Sens 10.9 (4.0-51.3) pg/mL NT-Pro-B Natriuret Pep 507.0 (<=900.0) pg/mL Total Protein 6.9 (6.4-8.2) g/dL Albumin 2.8 L (3.4-5.0) g/dL Globulin 4.1 g/dL Albumin/Globulin Ratio 0.7 Lipase 23.0 (16.0-77.0) U/L Blood Type O Positive Antibody Screen Positive Discharge Plan Discharge Chief Complaint: Recheck/Abnormal Lab/Rx Clinical Impression: Anemia Qualifiers: Anemia type: unspecified type Qualified Code(s): D64.9 - Anemia, unspecified Patient Disposition: Admitted as Observation Time of Disposition Decision: 16:32 Condition: Fair
[2025-03-05 15:09] LABS: Basophils Percent Auto 0.7 % (0.2-2.0); Eosinophils Absolute Auto 0.2 10^3/uL (0.0-0.7); Eosinophils Percent Auto 3.7 % (0.9-7.0); Immature Granulocytes Abs Auto 0.01 10^3/uL (0.00-0.03); Immature Granulocytes Pct Auto 0.2 % (0.0-0.5); Lymphocytes Absolute Auto 1.5 10^3/uL (1.2-3.8); Lymphocytes Percent Auto 37.4 % (20.5-60.0); Mean Corpuscular HGB Conc 26.9 g/dL (29.9-35.2); Mean Corpuscular Volume 80.3 fL (81.0-99.0); Mean Platelet Volume 11.3 fL (9.5-13.5); Monocytes Absolute Auto 0.4 10^3/uL (0.3-0.8); Monocytes Percent Auto 9.8 % (1.7-12.0); Neutrophils Percent Auto 48.2 % (43.0-75.0); Platelet Count 172 10^3/uL (150-450); Red Blood Count 2.69 10^6/uL (4.20-5.40); Red Cell Distribution Width 17.8 % (11.0-15.0); White Blood Count 4.1 10^3/uL (4.0-11.0)
[2025-03-05 15:11] LABS: Hematocrit 21.6 % (36.0-48.0); Hemoglobin 5.8 g/dL (12.0-16.0); Mean Corpuscular Hemoglobin 21.6 pg (26.7-34.0)
[2025-03-05 15:34] LABS: Alanine Aminotransferase 21 U/L (14-59); Albumin Globulin Ratio 0.7; Albumin Level 2.8 g/dL (3.4-5.0); Alkaline Phosphatase 123 U/L (46-116); Anion Gap 15.4; Aspartate Amino Transferase 30 U/L (15-37); BUN Creatinine Ratio 23.1; Bilirubin Direct 0.4 mg/dL (0.0-0.2); Calcium 8.5 mg/dL (8.5-10.1); Carbon Dioxide 24.8 mmol/L (21.0-32.0); Chloride 106 mmol/L (98-107); Estimated GFR (African America >60 (>=60 mL/min/1.73m^2); Estimated GFR (Non-African Ame 50 (>=60 mL/min/1.73m^2); Globulin 4.1 g/dL; Glucose 195 mg/dL (74-106); Potassium 4.2 mmol/L (3.5-5.1); Sodium 142 mmol/L (136-145); Total Protein 6.9 g/dL (6.4-8.2)
[2025-03-05 15:47] LABS: Lactate/Lactic Acid 4.5 mmol/L (0.4-2.0)
[2025-03-05 15:48] LABS: Magnesium 1.8 mg/dL (1.8-2.4); Troponin I High Sensitivity 10.9 pg/mL (4.0-51.3)
[2025-03-05 16:56] LABS: Internal Control Within Normal Limits; Occult Blood Positive
--- NOTE | 2025-03-05 16:59 | P.HP_ITS ---
HPI H&P: HPI History of Present Illness Chief complaint: ABNORMAL LAB Narrative: Patient well-known to me from the office, she has been seeing vp analysis at [facility], had routine labs done hemoglobin less than 6, tried to possibly arrange outpatient transfusion, unable to get type and crossmatch done within reasonable timeframe so patient presented to the emergency room, in the emergency room found to have a hemoglobin that was low, did have positive lactate patient mated for workup and treatment of same. When I saw patient in the emergency room, resting comfortably bed, denied any significant shortness of breath at rest, did notice some more over the last week or so increasing dyspnea, and feels bloated, CT scan ER does show to moderate ascites and bilateral pleural effusions Opioid HPI Opioid Management Most Recent Pain and Opioid Data: Last Pain Scale 0 11/19/24 06:16 11/19/24 Last Pain Intensity 5 11/16/24 08:29 11/16/24 Last ORT Total Score 0 12/28/24 14:42 12/28/24 Last ORT Risk Category Low Risk 12/28/24 14:42 12/28/24 Review of Systems ROS Status of ROS 10 or more systems reviewed and unremark able except as noted in history and below [facility] Medical History Edema of both lower legs ?R60.0 - Localized edema (ICD-10) Pleural effusion ?J90 - Pleural effusion, not elsewhere classified (ICD-10) Cirrhosis of liver with ascites ?K74.60 - Unspecified cirrhosis of liver (ICD-10) ?R18.8 - Other ascites (ICD-10) Acute hyperkalemia ?E87.5 - Hyperkalemia (ICD-10) Acute kidney failure ?N17.9 - Acute kidney failure, unspecified (ICD-10) Symptomatic anemia ?D64.9 - Anemia, unspecified (ICD-10) Acute dehydration ?E86.0 - Dehydration (ICD-10) Acute kidney injury ?N17.9 - Acute kidney failure, unspecified (ICD-10) Septic shock ?A41.9 - Sepsis, unspecified organism (ICD-10) ?R65.21 - Severe sepsis with septic shock (ICD-10) Atrial fibrillation with rapid ventricular response ?I48.91 - Unspecified atrial fibrillation (ICD-10) Sepsis ?A41.9 - Sepsis, unspecified organism (ICD-10) Hypertension ?I10 - Essential (primary) hypertension (ICD-10) Diabetes ?E11.9 - Type 2 diabetes mellitus without complications (ICD-10) Dyslipidemia ?E78.5 - Hyperlipidemia, unspecified (ICD-10) Hypomagnesemia ?E83.42 - Hypomagnesemia (ICD-10) Acute hyperglycemia ?R73.9 - Hyperglycemia, unspecified (ICD-10) Cervical cancer ?C53.9 - Malignant neoplasm of cervix uteri, unspecified (ICD-10) Osteoarthritis ?M19.90 - Unspecified osteoarthritis, unspecified site (ICD-10) Sleep apnea ?G47.30 - Sleep apnea, unspecified (ICD-10) Kidney stones ?N20.0 - Calculus of kidney (ICD-10) Cataract ?H26.9 - Unspecified cataract (ICD-10) Palpitations ?R00.2 - Palpitations (ICD-10) Anemia ?D64.9 - Anemia, unspecified (ICD-10) Rotator cuff arthropathy of left shoulder ?M12.812 - Other specific arthropathies, not elsewhere classified, left shoulder (ICD-10) Atrial fibrillation with rapid ventricular response ?I48.91 - Unspecified atrial fibrillation (ICD-10) Surgical History H/O repair of rotator cuff ?Z98.890 - Other specified postprocedural states (ICD-10) H/O section ?Z98.891 - History of uterine scar from previous surgery (ICD-10) History of tonsillectomy ?Z90.89 - Acquired absence of other organs (ICD-10) History of cholecystectomy ?Z90.49 - Acquired absence of other specified parts of digestive tract (ICD- 10) History of appendectomy ?Z90.49 - Acquired absence of other specified parts of digestive tract (ICD- 10) H/O: hysterectomy ?Z90.710 - Acquired absence of both cervix and uterus (ICD-10) Family History Grandmother Family history of cancer Father Family history of diabetes mellitus Grandfather Family history of cancer Brother Family history of hypertension Social History Within the past year, how often did you have a drink containing alcohol: monthly or less Within the past year, how often did you have six or more drinks on one occasion: never Smoking status: Never smoker Non-prescribed substance use: denies use 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 Highest level of school completed/degree received: Bachelor's degree Do you want help with school or training: No Are you now , , , , never or living with a partner: never In a typical week, how many times do you talk on the telephone with family, friends, or neighbors: 3 or more times per week How often do you get together with friends or relatives: once per week How often do you attend christianity or restoration services: 4 or more times per year Do you belong to any clubs or organizations such as christianity groups unions, [employer] or athletic groups, or school groups: yes Total score: 3 Score interpretation: A score of greater than or equal to 2 indicates the lowest level of social isolation. Little interest or pleasure in doing things: not at all Feeling down, depressed, or hopeless: not at all Feel stressed/tense/nervous/anxious/difficulty sleeping: not at all Life stressors: recent of family or friend Due to disability, difficulty making decisions: No Meds Home Medications and Allergies Home Medications ?Medication ?Instructions ?Recorded ?Confirmed ?Type metformin 500 mg tablet 1,000 mg PO BID 05/23/23 03/05/25 History ramipril 10 mg capsule 10 mg PO DAILY 05/23/23 03/05/25 History simvastatin 20 mg tablet 20 mg PO DAILY 05/23/23 03/05/25 History venlafaxine 75 mg capsule,extended 75 mg PO DAILY 05/23/23 03/05/25 History release 24 hr apixaban 5 mg tablet (Eliquis) 5 mg PO BID #60 tabs 05/25/23 03/05/25 Rx magnesium oxide 400 mg (241.3 mg 400 mg PO BID #60 tabs 05/25/23 03/05/25 Rx magnesium) tablet lancets #200 ea 11/02/24 12/28/24 Rx pantoprazole 40 mg tablet,delayed 40 mg PO DAILY 11/15/24 03/05/25 History release furosemide 20 mg tablet 20 mg PO DAILY 12/28/24 03/05/25 History ondansetron 4 mg disintegrating 4 mg PO Q8H PRN nausea and vomiting 12/28/24 03/05/25 History tablet tizanidine 4 mg tablet 8 mg PO .QHS 12/28/24 03/05/25 History amiodarone 200 mg tablet 200 mg PO DAILY #30 tabs 12/31/24 03/05/25 Rx Allergies Allergy/AdvReac Type Severity Reaction Status Date / Time Sulfa (Sulfonamide AdvReac Mild Hives Verified 03/05/25 14:34 Antibiotics) Exam Constitutional Vital Signs, click to edit/add: Last Vital Signs Temp 98.1 F 03/05/25 14:35 Pulse 66 03/05/25 14:35 Resp 18 03/05/25 14:35 BP 137/56 03/05/25 14:35 Pulse Ox 100 03/05/25 14:35 O2 Del Method Room Air 03/05/25 14:35 Documenting provider has reviewed patient's vital signs: yes Common normals: no apparent distress Chest Common normals: inspection of chest normal Respiratory Common normals: normal respiratory effort Auscultation: crackles (Basis) and diminished lung sounds Cardio Common normals: regular rate, regular rhythm and no murmurs GI Common normals: soft to palpation, non-tender and no masses; negative for Normal to inspection, nondistended, normoactive bowel sounds present (Mild to moderate distention) Extremity Common normals: normal to inspection and full ROM Results Labs Labs: Short CBC 03/05/25 Range/Units 14:45 WBC 4.1 (4.0-11.0) 10^3/uL Hgb 5.8 L* (12.0-16.0) g/dL Hct 21.6 L* (36.0-48.0) % Plt Count 172 (150-450) 10^3/uL BMP 03/05/25 14:45 Sodium 142 Potassium 4.2 Chloride 106 Carbon Dioxide 24.8 BUN 25.0 H Creatinine 1.08 H Glucose 195 H Calcium 8.5 Liver Function 03/05/25 Range/Units 14:45 Total Bilirubin 1.0 (0.2-1.0) mg/dL Direct Bilirubin 0.4 H (0.0-0.2) mg/dL AST 30 (15-37) U/L ALT 21 (14-59) U/L Alkaline Phosphatase 123 H (46-116) U/L Albumin 2.8 L (3.4-5.0) g/dL Assessment and Plan Assessment and Plan (1) Hypomagnesemia: (2) A-fib: (3) Pleural effusion: (4) Cirrhosis of liver with ascites: (5) Symptomatic anemia: (6) Hypertension: (7) Diabetes: (8) Dyslipidemia: Plan Admission findings: Significant hemoglobin less than 6, positive lactate, pleural effusions and moderate ascites Acute blood loss anemia likely from upper gastrointestinal blood loss anemia- Protonix twice daily, hold blood thinners, type cross and transfuse 2 units, repeat labs in a.m. Cirrhosis of the liver-already seeing vp analysis, depending on outcome overnight consider transfer for paracentesis Atrial Fibrillation -maintain off of anticoagulants, maintain amiodarone Hypertension by history-continue with current medications Hypomagnesemia-continue to supplement Diabetes mellitus-continue with metformin Depression continue with home medication Admission status: Patient will be transfused 2 units, otherwise hemodynamically stable, only complication could be if she needs paracentesis, will start patient off as observation is medically necessary treatment likely to span only 1 m idnight, if case deteriorates and thus medically necessary treatment will span 2 midnights she will be changed to inpatient status
[2025-03-05 17:47] VITALS: BP 144/65; PULSE 67; TEMP 36.4; O2SAT 98; BMI 35.7
[2025-03-05 18:56] LABS: Ammonia 42 umol/L (11-32); Lactate/Lactic Acid 4.5 mmol/L (0.4-2.0)
[2025-03-05 19:39] LABS: Bilirubin Urine NEGATIVE (NEGATIVE); Blood Urine NEGATIVE (NEGATIVE); Clarity Urine CLEAR (CLEAR); Color Urine YELLOW (YELLOW); Glucose Urine UA NEGATIVE (NEGATIVE); Ketones Urine TRACE mg/dL (NEGATIVE); Leukocyte Esterase Urine NEGATIVE (NEGATIVE); Nitrite Urine NEGATIVE (NEGATIVE); Protein Urine 30 mg/dL (NEG/TRACE); Specific Gravity Urine 1.025 (1.005-1.025); Urobilinogen Urine 0.2 EU/dL (0.2-1.0)
[2025-03-05 19:53] LABS: Bacteria Urine LARGE #/HPF (NONE SEEN); Cast Seen? NONE SEEN #/LPF (NONE SEEN); Crystals Seen? None Seen #/HPF (None Seen); Mucus Urine NONE SEEN (NONE SEEN); RBC Urine 0-2 #/HPF (0-2); Squamous Epithelial Cell Urine MODERATE #/LPF (NONE/RARE); Urine Culture Indicated ALREADY ORDERED
[2025-03-05 20:00] VITALS: PULSE 66
[2025-03-05 20:19] VITALS: O2SAT 95
[2025-03-05 21:06] LABS: Glucometer 207 mg/dL (74-106)
[2025-03-05] MEDS: MAGNESIUM OXIDE 400 MG TABLET PO (21:06)
[2025-03-05] MEDS: TIZANIDINE HCL 4 MG TABLET 8 MG PO (21:06)
[2025-03-05] MEDS: METFORMIN HCL 500 MG TABLET 1000 MG PO (21:06)
[2025-03-05] MEDS: SPIRONOLACTONE 25 MG TABLET 50 MG PO (21:09)
[2025-03-05] MEDS: PANTOPRAZOLE SODIUM 40 MG VIAL IV (21:14)
[2025-03-05 21:37] LABS: Lactate/Lactic Acid 3.9 mmol/L (0.4-2.0)
[2025-03-05 21:41] VITALS: BP 135/52; PULSE 62; TEMP 36.4; O2SAT 98
[2025-03-05 22:00] VITALS: PULSE 64
[2025-03-06] VITALS (34 sets, daily range): BP systolic 85–139; BP diastolic 41–79; PULSE 45–67; TEMP 36.3–36.6; O2SAT 93–100
[2025-03-06] MEDS: ACETAMINOPHEN 500 MG TABLET 1000 MG PO ×2 (04:56→17:18)
[2025-03-06] MEDS: DIPHENHYDRAMINE HCL 25 MG CAPSULE PO ×2 (04:56→17:18)
[2025-03-06 05:48] LABS: Magnesium 1.9 mg/dL (1.8-2.4)
[2025-03-06 06:10] LABS: Ammonia 66 umol/L (11-32)
--- NOTE | 2025-03-06 06:41 | P.PN_ITS ---
Progress Note: Subjective Subjective Interval history: Patient is somewhat somnolent this morning but no other specific complaints, just feels tired, just started blood transfusion about an hour prior to that Exam Constitutional Vital Signs, click to edit/add: Last Vital Signs Temp 97.6 F 03/06/25 05:48 Pulse 45 L 03/06/25 06:00 Resp 12 03/06/25 05:48 BP 91/41 L 03/06/25 05:48 Pulse Ox 100 03/06/25 06:00 O2 Del Method Room Air 03/06/25 05:48 Documenting provider has reviewed patient's vital signs: yes Common normals: no apparent distress Chest Common normals: inspection of chest normal Respiratory Common normals: normal respiratory effort Auscultation: crackles (Basis) and diminished lung sounds Cardio Common normals: regular rate, regular rhythm and no murmurs GI Common normals: soft to palpation and non-tender; negative for Normal to inspection, nondistended, normoactive bowel sounds present (Mild to moderate distention) Inspection: no edema findings and no anasarca present Extremity Common normals: normal to inspection and full ROM Progress Note: Objective Labs Labs: Short CBC 03/05/25 Range/Units 14:45 WBC 4.1 (4.0-11.0) 10^3/uL Hgb 5.8 L* (12.0-16.0) g/dL Hct 21.6 L* (36.0-48.0) % Plt Count 172 (150-450) 10^3/uL BMP 03/05/25 14:45 Sodium 142 Potassium 4.2 Chloride 106 Carbon Dioxide 24.8 BUN 25.0 H Creatinine 1.08 H Glucose 195 H Calcium 8.5 Liver Function 03/05/25 Range/Units 14:45 Total Bilirubin 1.0 (0.2-1.0) mg/dL Direct Bilirubin 0.4 H (0.0-0.2) mg/dL AST 30 (15-37) U/L ALT 21 (14-59) U/L Alkaline Phosphatase 123 H (46-116) U/L Albumin 2.8 L (3.4-5.0) g/dL Urine 03/05/25 Range/Units 19:25 Urine Color Yellow (YELLOW) Urine Clarity Clear (CLEAR) Urine pH 6.0 (5.0-9.0) Ur Specific [place] 1.025 (1.005-1.025) Urine Protein 30 A (NEG/TRACE) mg/dL Urine Glucose (UA) Negative (NEGATIVE) mg/dL Progress Note: A&P Assessment and Plan (1) Hypomagnesemia: (2) A-fib: (3) Pleural effusion: (4) Cirrhosis of liver with ascites: (5) Symptomatic anemia: (6) Hypertension: (7) Diabetes: (8) Dyslipidemia: Plan Admission findings: Significant hemoglobin less than 6, positive lactate, pleural effusions and moderate ascites Acute blood loss anemia likely from upper gastrointestinal blood loss anemia- history of blood transfusion this morning, may need a 3rd or 4th unit, will repeat labs at 11:00, if hemoglobin still less than 8 she needs 2 more units and then will need to spend an additional night Cirrhosis of the liver-already seeing combat information center officer, labs are pending Hyperammonemia-start low-dose lactulose Atrial Fibrillation -maintain off of anticoagulants, maintain amiodarone Hypertension by history-continue with current medications Hypomagnesemia-continue to supplement Diabetes mellitus-continue with metformin Depression continue with home medication Admission status: Patient will be transfused 2 units, otherwise hemodynamically stable, only complication could be if she needs paracentesis, will start patient off as observation is medically necessary treatment likely to span only 1 midnight. , if requires the further transfusions then the 2 this morning, medically necessary treatment will then span 2 midnights and she will be changed to inpatient status ?
[2025-03-06] MEDS: FUROSEMIDE 40 MG/4 ML VIAL IVP ×2 (07:39→20:47)
[2025-03-06 07:56] LABS: Glucometer 252 mg/dL (74-106)
[2025-03-06] MEDS: SPIRONOLACTONE 25 MG TABLET 50 MG PO (07:59)
[2025-03-06] MEDS: MAGNESIUM OXIDE 400 MG TABLET PO ×2 (07:59→21:21)
[2025-03-06] MEDS: METFORMIN HCL 500 MG TABLET 1000 MG PO ×2 (07:59→21:21)
[2025-03-06] MEDS: PANTOPRAZOLE SODIUM 40 MG VIAL IV ×2 (07:59→21:21)
[2025-03-06] MEDS: INSULIN ASPART 300 UNIT/3 ML PEN SUBQ ×3 (08:00→21:24)
[2025-03-06] MEDS: AMIODARONE HCL 200 MG TABLET PO (08:01)
[2025-03-06] MEDS: VENLAFAXINE HCL ER 75 MG CAPSULE PO (08:01)
--- NOTE | 2025-03-06 08:02 | CM.NOTE ---
Rounds made with Dr. Valencia. Dr. Valencia revews plan of care. Encouraged to move about in room. Shirley verbalizes understanding.
[2025-03-06] MEDS: CEFDINIR 300 MG CAPSULE 600 MG PO (08:14)
[2025-03-06] MEDS: LACTULOSE 10 GM/15 ML UD CUP PO ×2 (08:28→21:21)
[2025-03-06 08:50] LABS: Alanine Aminotransferase 15 U/L (14-59); Albumin Globulin Ratio 0.7; Albumin Level 2.7 g/dL (3.4-5.0); Alkaline Phosphatase 114 U/L (46-116); Anion Gap 15.5; Aspartate Amino Transferase 25 U/L (15-37); BUN Creatinine Ratio 20.8; Bilirubin Total 0.9 mg/dL (0.2-1.0); Calcium 7.9 mg/dL (8.5-10.1); Carbon Dioxide 23.1 mmol/L (21.0-32.0); Chloride 104 mmol/L (98-107); Estimated GFR (African America 41 (>=60 mL/min/1.73m^2); Estimated GFR (Non-African Ame 34 (>=60 mL/min/1.73m^2); Globulin 3.8 g/dL; Glucose 216 mg/dL (74-106); Potassium 5.6 mmol/L (3.5-5.1); Sodium 137 mmol/L (136-145); Total Protein 6.5 g/dL (6.4-8.2)
[2025-03-06 10:39] LABS: Glucometer 188 mg/dL (74-106)
[2025-03-06 11:21] LABS: Hematocrit 24.2 % (36.0-48.0); Hemoglobin 7.2 g/dL (12.0-16.0); Mean Corpuscular HGB Conc 29.8 g/dL (29.9-35.2); Mean Corpuscular Hemoglobin 23.5 pg (26.7-34.0); Mean Corpuscular Volume 78.8 fL (81.0-99.0); Mean Platelet Volume 10.8 fL (9.5-13.5); Platelet Count 161 10^3/uL (150-450); Red Blood Count 3.07 10^6/uL (4.20-5.40); Red Cell Distribution Width 17.8 % (11.0-15.0); White Blood Count 4.3 10^3/uL (4.0-11.0)
--- NOTE | 2025-03-06 11:26 | SWNOTE1 ---
SW met with pt to discuss dc needs. Pt lives at home with friend, pt's friend in room during assessment. Pt does not use any DME at home. Pt does not have any services coming in at this time. Pt used to have [facility], but services ended. Pt has no anticipated discharge needs at this time. SW to follow as needed.
--- NOTE | 2025-03-06 11:28 | SWNOTE1 ---
Medicare Outpatient Observation Notice reviewed and discussed with patient. Pt. verbalized understanding and signed the form. Original given to patient and copy placed in patient?s chart.
[2025-03-06 11:41] LABS: Lactate/Lactic Acid 3.8 mmol/L (0.4-2.0)
[2025-03-06 15:02] LABS: Lactate/Lactic Acid 3.2 mmol/L (0.4-2.0)
[2025-03-06 17:05] LABS: Glucometer 108 mg/dL (74-106)
[2025-03-06] MEDS: 0.9 % SODIUM CHLORIDE 250 ML 10 ML IV (17:18)
[2025-03-06 20:15] LABS: Glucometer 135 mg/dL (74-106)
[2025-03-06] MEDS: TIZANIDINE HCL 4 MG TABLET 8 MG PO (21:21)
[2025-03-07] VITALS (9 sets, daily range): BP systolic 104–108; BP diastolic 65–67; PULSE 46–76; TEMP 36.4; O2SAT 92–94
[2025-03-07 06:02] LABS: Basophils Percent Auto 0.7 % (0.2-2.0); Eosinophils Absolute Auto 0.2 10^3/uL (0.0-0.7); Eosinophils Percent Auto 4.5 % (0.9-7.0); Hemoglobin 9.1 g/dL (12.0-16.0); Immature Granulocytes Abs Auto 0.02 10^3/uL (0.00-0.03); Immature Granulocytes Pct Auto 0.5 % (0.0-0.5); Lymphocytes Absolute Auto 1.6 10^3/uL (1.2-3.8); Lymphocytes Percent Auto 34.9 % (20.5-60.0); Mean Corpuscular HGB Conc 30.3 g/dL (29.9-35.2); Mean Corpuscular Hemoglobin 23.8 pg (26.7-34.0); Mean Corpuscular Volume 78.3 fL (81.0-99.0); Mean Platelet Volume 10.5 fL (9.5-13.5); Monocytes Absolute Auto 0.5 10^3/uL (0.3-0.8); Neutrophils Absolute Auto 2.2 10^3/uL (1.4-6.5); Neutrophils Percent Auto 48.4 % (43.0-75.0); Platelet Count 156 10^3/uL (150-450); Red Blood Count 3.83 10^6/uL (4.20-5.40); Red Cell Distribution Width 17.4 % (11.0-15.0); White Blood Count 4.4 10^3/uL (4.0-11.0)
[2025-03-07 06:25] LABS: Alanine Aminotransferase 13 U/L (14-59); Albumin Globulin Ratio 0.8; Albumin Level 2.8 g/dL (3.4-5.0); Alkaline Phosphatase 115 U/L (46-116); Anion Gap 15.4; Aspartate Amino Transferase 32 U/L (15-37); Calcium 8.2 mg/dL (8.5-10.1); Carbon Dioxide 22.9 mmol/L (21.0-32.0); Chloride 104 mmol/L (98-107); Estimated GFR (African America 36 (>=60 mL/min/1.73m^2); Estimated GFR (Non-African Ame 30 (>=60 mL/min/1.73m^2); Globulin 3.7 g/dL; Glucose 136 mg/dL (74-106); Potassium 5.3 mmol/L (3.5-5.1); Sodium 137 mmol/L (136-145); Total Protein 6.5 g/dL (6.4-8.2)
--- NOTE | 2025-03-07 06:32 | P.DS_ITS ---
DS: Providers Provider Date of admission: 03/06/25 12:35 Primary care physician: Harry Valencia MD Consults: 03/05/25 17:57 Consult to Pharmacy Routine Consulting Provider: Reason for consultation: Please [place] me when Med Rec is Updated Has provider been notified: No DS: Diagnosis Discharge Diagnosis (1) Hypomagnesemia: (2) A-fib: (3) Pleural effusion: (4) Cirrhosis of liver with ascites: (5) Symptomatic anemia: (6) Hypertension: (7) Diabetes: (8) Dyslipidemia: Plan Admission findings: Significant hemoglobin less than 6, positive lactate, pleural effusions and moderate ascites Acute blood loss anemia likely from upper gastrointestinal blood loss anemia- history of blood transfusion this morning, may need a 3rd or 4th unit, will repeat labs at 11:00, if hemoglobin still less than 8 she needs 2 more units and then will need to spend an additional night Cirrhosis of the liver-already seeing psychometric examiner, labs are pending Hyperammonemia-start low-dose lactulose Atrial Fibrillation -maintain off of anticoagulants, maintain amiodarone Hypertension by history-continue with current medications Hypomagnesemia-continue to supplement Diabetes mellitus-continue with metformin Depression continue with home medication Admission status: Patient will be transfused 2 units, otherwise hemodynamically stable, only complication could be if she needs paracentesis, will start patient off as observation is medically necessary treatment likely to span only 1 midnight. , if requires the further transfusions then the 2 this morning, medically necessary treatment will then span 2 midnights and she will be changed to inpatient status DS: Summary Hospital Course Hospital Course: Patient was evaluated outpatient and found to have significant anemia with hemoglobin of less than 6, with symptoms of shortness of breath she presented to the emergency room, she has significant tachycardia some mild hypokalemia but the significant anemia, she ended up requiring 4 units of blood for the transfusion, her hemoglobin is up above 9 no signs of active bleeding, will have her hold her Eliquis for the next 2 to 3 days, repeat labs next week, with her cirrhosis we did add Aldactone to the Lasix, try to obtain a quicker visit with for her liver specialist currently scheduled for mid March we will keep that 1 currently if has further episodes of bleeding likely transfer to [facility]. Occult blood was positive so acute upper gastrointestinal blood loss anemia secondary to acute upper gastrointestinal bleeding. Time Spent with Patient Time attestation: Total time spent providing and/or coordinating discharge services: Exam Constitutional Vital Signs, click to edit/add: Last Vital Signs Temp 97.5 F L 03/07/25 05:19 Pulse 47 L 03/07/25 06:00 Resp 19 03/07/25 05:19 BP 108/67 03/07/25 05:19 Pulse Ox 94 L 03/07/25 05:19 O2 Del Method Home BIPAP / CPAP 03/07/25 05:19 Documenting provider has reviewed patient's vital signs: yes Common normals: no apparent distress Chest Common normals: inspection of chest normal Respiratory Common normals: normal respiratory effort Auscultation: crackles (Basis) and diminished lung sounds Cardio Common normals: regular rate, regular rhythm and no murmurs GI Common normals: soft to palpation and non-tender; negative for Normal to inspection, nondistended, normoactive bowel sounds present (Mild to moderate distention) Inspection: no edema findings and no anasarca present Extremity Common normals: normal to inspection and full ROM DS: Data Data Completed and Pending Labs on day of discharge: Labs from last 24 hours 03/07/25 03/06/25 03/06/25 05:53 20:14 16:56 WBC 4.4 RBC 3.83 L Hgb 9.1 L Hct 30.0 L MCV 78.3 L MCH 23.8 L MCHC 30.3 RDW 17.4 H Plt Count 156 MPV 10.5 Neut % (Auto) 48.4 Lymph % (Auto) 34.9 Stanton % (Auto) 11.0 Eos % (Auto) 4.5 Baso % (Auto) 0.7 Neut # (Auto) 2.2 Lymph # (Auto) 1.6 Stanton # (Auto) 0.5 Eos # (Auto) 0.2 Baso # (Auto) 0.0 Abs Immat Gran (auto) 0.02 Imm/Tot Granulo (auto) 0.5 Sodium 137 Potassium 5.3 H Chloride 104 Carbon Dioxide 22.9 Anion Gap 15.4 BUN 41.0 H Creatinine 1.71 H Est GFR ( Amer) 36 L Est GFR (Non-Af Amer) 30 L BUN/Creatinine Ratio 24.0 Glucose 136 H Lactate Calcium 8.2 L Magnesium Total Bilirubin 2.0 H AST 32 ALT 13 L Alkaline Phosphatase 115 Total Protein 6.5 Albumin 2.8 L Globulin 3.7 Albumin/Globulin Ratio 0.8 POC Glucose 135 H 108 H Blood Type Antibody Screen Antibody Identification Crossmatch Crossmatch ([facility]) 03/06/25 03/06/25 03/06/25 14:28 11:15 10:39 WBC 4.3 RBC 3.07 L Hgb 7.2 L Hct 24.2 L MCV 78.8 L MCH 23.5 L MCHC 29.8 L RDW 17.8 H Plt Count 161 MPV 10.8 Neut % (Auto) Lymph % (Auto) Stanton % (Auto) Eos % (Auto) Baso % (Auto) Neut # (Auto) Lymph # (Auto) Stanton # (Auto) Eos # (Auto) Baso # (Auto) Abs Immat Gran (auto) Imm/Tot Granulo (auto) Sodium Potassium Chloride Carbon Dioxide Anion Gap BUN Creatinine Est GFR ( Amer) Est GFR (Non-Af Amer) BUN/Creatinine Ratio Glucose Lactate 3.2 H* 3.8 H* Calcium Magnesium Total Bilirubin AST ALT Alkaline Phosphatase Total Protein Albumin Globulin Albumin/Globulin Ratio POC Glucose 188 H Blood Type Antibody Screen Antibody Identification Crossmatch Crossmatch ([facility]) 03/06/25 03/06/25 03/05/25 07:55 05:26 14:45 WBC RBC Hgb Hct MCV MCH MCHC RDW Plt Count MPV Neut % (Auto) Lymph % (Auto) Stanton % (Auto) Eos % (Auto) Baso % (Auto) Neut # (Auto) Lymph # (Auto) Stanton # (Auto) Eos # (Auto) Baso # (Auto) Abs Immat Gran (auto) Imm/Tot Granulo (auto) Sodium 137 Potassium 5.6 H Chloride 104 Carbon Dioxide 23.1 Anion Gap 15.5 BUN 32.0 H Creatinine 1.54 H Est GFR ( Amer) 41 L Est GFR (Non-Af Amer) 34 L BUN/Creatinine Ratio 20.8 Glucose 216 H Lactate Calcium 7.9 L Magnesium 1.9 Total Bilirubin 0.9 AST 25 ALT 15 Alkaline Phosphatase 114 Total Protein 6.5 Albumin 2.7 L Globulin 3.8 Albumin/Globulin Ratio 0.7 POC Glucose 252 H Blood Type O Positive Antibody Screen Positive Antibody Identification Anti-K Crossmatch See Detail Crossmatch ([facility]) See Detail Preliminary micro results at discharge 03/05/25 19:25 Urine Culture - Preliminary Urine,Clean Catch Pending - [facility] Discharge Disposition: Home, Self-Care Condition: Fair Discharge Medications: New cefdinir 300 mg Capsule 600 mg PO QD Qty: 14 0RF pantoprazole [Protonix] 40 mg tablet,delayed release (DR/EC) 40 mg PO BID Qty: 60 11RF furosemide [Lasix] 40 mg tablet 40 mg PO DAILY Qty: 30 11RF spironolactone 25 mg Tablet 50 mg PO QD Qty: 30 11RF sucralfate 1 gram tablet 1 g PO ACHS Qty: 120 11RF Continued metformin 500 mg tablet 1,000 mg PO BID ramipril 10 mg capsule 10 mg PO DAILY simvastatin 20 mg tablet 20 mg PO DAILY venlafaxine 75 mg capsule,extended release 24hr 75 mg PO DAILY magnesium oxide 400 mg (241.3 mg magnesium) Tablet 400 mg PO BID Qty: 60 11RF Eliquis 5 mg Tablet 5 mg PO BID Qty: 60 11RF (DME) lancets Misc See Rx Instructions .Route Qty: 200 0RF Rx Instructions: As directed ondansetron 4 mg tablet,disintegrating 4 mg PO Q8H PRN (Reason: nausea and vomiting) tizanidine 4 mg tablet 8 mg PO .QHS amiodarone 200 mg tablet 200 mg PO DAILY Qty: 30 11RF Discontinued pantoprazole 40 mg tablet,delayed release (DR/EC) 40 mg PO DAILY furosemide 20 mg tablet 20 mg PO DAILY PRN (Reason: edema) Print Language: Maltese Patient Instructions: A-fib (Atrial Fibrillation) (DC), Anemia (DC) Forms: Portal Instructions Follow Up Appointments: . @ 1pm with Dr. Valencia [phone] Discharge Date/Time: 03/07/25 11:04
[2025-03-07 06:36] LABS: Ammonia 68 umol/L (11-32)
[2025-03-07 07:33] LABS: Glucometer 154 mg/dL (74-106)
--- NOTE | 2025-03-07 08:17 | CM.NOTE ---
Rounds made with Dr. Valencia, hgb 9.1 this am. Pt will discharge to home and f/u with GI doctor(Dr. Valencia's office reaching out to change her appt, pt will need to be seen sooner than scheduled). Pt will also f/u with Dr. Valencia.
[2025-03-07] MEDS: INSULIN ASPART 300 UNIT/3 ML PEN SUBQ (08:28)
[2025-03-07] MEDS: CEFDINIR 300 MG CAPSULE 600 MG PO (08:32)
[2025-03-07] MEDS: FUROSEMIDE 20 MG TABLET PO (08:33)
[2025-03-07] MEDS: LACTULOSE 10 GM/15 ML UD CUP PO (08:33)
[2025-03-07] MEDS: MAGNESIUM OXIDE 400 MG TABLET PO (08:33)
[2025-03-07] MEDS: METFORMIN HCL 500 MG TABLET 1000 MG PO (08:34)
[2025-03-07] MEDS: PANTOPRAZOLE SODIUM 40 MG VIAL IV (08:34)
[2025-03-07] MEDS: VENLAFAXINE HCL ER 75 MG CAPSULE PO (08:35)
[2025-03-07] MEDS: SPIRONOLACTONE 25 MG TABLET 50 MG PO (08:35)
[2025-03-07] MEDS: AMIODARONE HCL 200 MG TABLET PO (08:36)
--- NOTE | 2025-03-07 14:33 | CM.NOTE ---
Important Message From Medicare discussed with pt, pt verbalizes understanding and signs paper. Original given to pt and copy placed on pt's chart.
--- NOTE | 2025-03-08 15:18 | CM.DCFOLLOWU ---
Person spoke with: Shirley How are you feeling? Much better How is your pain? No pain Did you understand your discharge instructions? Yes Do you have any questions about your discharge instructions? No Were you given any prescriptions at discharge? Yes Were you able to get your prescriptions filled? Yes Do you understand how to take your medications as ordered? Yes Do you have any questions about your follow up appointment and do you plan to keep your follow up appointment? No its schedule and I will go to appt Is there anything else that you would like to discuss? No Questions/Comments/Concerns/Other:
== END 2025-03-07 11:04 | disposition home or self-care (01) | DRG 812 ==
LOC: ER 16:32 → MS 17:46
PROVIDERS: Admitting Provider Family Medicine; Emergency Provider Emergency Medicine; PCP Family Medicine; Visit Provider Family Medicine
DX: D62 Acute posthemorrhagic anemia (principal); K92.2 Gastrointestinal hemorrhage, unspecified; R18.8 Other ascites; J90 Pleural effusion, not elsewhere classified; I48.20 Chronic atrial fibrillation, unspecified; K74.60 Unspecified cirrhosis of liver; E72.20 Disorder of urea cycle metabolism, unspecified; I10 Essential (primary) hypertension; E83.42 Hypomagnesemia; F32.A Depression, unspecified; E87.6 Hypokalemia; Z88.2 Allergy status to sulfonamides; E11.9 Type 2 diabetes mellitus without complications; E78.5 Hyperlipidemia, unspecified; Z85.41 Personal history of malignant neoplasm of cervix uteri; Z90.710 Acquired absence of both cervix and uterus; Z79.02 Long term (current) use of antithrombotics/antiplatelets; Z79.84 Long term (current) use of oral hypoglycemic drugs; Z79.899 Other long term (current) drug therapy
CPT/HCPCS: 36415; 36430; 74176; 80048; 80053; 80076; 81001; 82140; 82728; 82948; 83540; 83605; 83690; 83735; 83880; 84484; 85025; 85027; 85610; 85730; 86850; 86870; 86880; 86885; 86900; 86901; 86905; 86906; 86922; 87086; 87088; 87186; 93005; 94667; 94668; 94761; 96374; 96375; 96376; 99285; G0328; G0378; J1938; P9016; P9038

== ENCOUNTER 2025-03-11 12:29 | Outpatient (OUT) | payer MEDICARE, SELFPAY ==
[2025-03-11 13:18] LABS: Basophils Percent Auto 0.6 % (0.2-2.0); Eosinophils Absolute Auto 0.2 10^3/uL (0.0-0.7); Eosinophils Percent Auto 4.1 % (0.9-7.0); Hematocrit 30.6 % (36.0-48.0); Hemoglobin 8.8 g/dL (12.0-16.0); Immature Granulocytes Abs Auto 0.01 10^3/uL (0.00-0.03); Immature Granulocytes Pct Auto 0.2 % (0.0-0.5); Lymphocytes Absolute Auto 1.3 10^3/uL (1.2-3.8); Lymphocytes Percent Auto 28.1 % (20.5-60.0); Mean Corpuscular HGB Conc 28.8 g/dL (29.9-35.2); Mean Corpuscular Hemoglobin 23.9 pg (26.7-34.0); Mean Corpuscular Volume 83.2 fL (81.0-99.0); Mean Platelet Volume 10.7 fL (9.5-13.5); Monocytes Absolute Auto 0.4 10^3/uL (0.3-0.8); Neutrophils Absolute Auto 2.7 10^3/uL (1.4-6.5); Platelet Count 144 10^3/uL (150-450); Red Blood Count 3.68 10^6/uL (4.20-5.40); Red Cell Distribution Width 18.8 % (11.0-15.0); White Blood Count 4.6 10^3/uL (4.0-11.0)
[2025-03-11 13:48] LABS: Alanine Aminotransferase 30 U/L (14-59); Albumin Globulin Ratio 0.7; Albumin Level 2.7 g/dL (3.4-5.0); Alkaline Phosphatase 117 U/L (46-116); Anion Gap 12.1; Aspartate Amino Transferase 38 U/L (15-37); BUN Creatinine Ratio 20.2; Calcium 8.7 mg/dL (8.5-10.1); Carbon Dioxide 27.4 mmol/L (21.0-32.0); Chloride 105 mmol/L (98-107); Estimated GFR (African America >60 (>=60 mL/min/1.73m^2); Estimated GFR (Non-African Ame 56 (>=60 mL/min/1.73m^2); Globulin 4.1 g/dL; Glucose 220 mg/dL (74-106); Potassium 4.5 mmol/L (3.5-5.1); Sodium 140 mmol/L (136-145); Total Protein 6.8 g/dL (6.4-8.2)
== END 2025-03-11 12:30 | disposition home or self-care (01) ==
LOC: LAB 12:30
PROVIDERS: PCP Family Medicine; Visit Provider Family Medicine
DX: K92.2 Gastrointestinal hemorrhage, unspecified (principal); N17.9 Acute kidney failure, unspecified
CPT/HCPCS: 36415; 80053; 85025

== ENCOUNTER 2025-03-16 07:53 | Outpatient (OUT) | payer MEDICARE, SELFPAY ==
--- NOTE | 2025-03-16 07:55 | US_ITS ---
[place] [id number] Patient Name: CONNIE WISE MRN: [id number] date: 1955 Sex: F Assigned Patient Location: US Current Patient Location: Accession/Order Number: [id number] Exam Date: 03/18/2025 12:36 Report Date: 03/18/2025 12:37 At the request of: MARYJANE REYNOLDS MD Procedure: US abdomen limited Ascites ULTRASOUND: CLINICAL HISTORY: CIRRHOSIS K74.60 COMPARISON: None TECHNIQUE: Grayscale and color Doppler images of the quadrant of the abdomen were obtained. FINDINGS: Imaging of the 4 quadrants of the abdomen demonstrates small amount of ascites present largest pocket seen within the right lower quadrant. US/US abdomen limited IMPRESSION: SMALL AMOUNT OF ASCITES, LARGEST POCKET RIGHT LOWER QUADRANT.. Impression dictated by: Duke Cooper Jr., D.O. 03/18/2025 12:37 PM Dictation Location: [place] [address] Electronically authenticated by: [id number] Y Date: 03/18/2025 12:37
--- NOTE | 2025-03-16 07:56 | US_ITS ---
[address] [address] Patient Name: CONNIE WISE MRN: [id number] date: 1955 Sex: F Assigned Patient Location: Current Patient Location: Accession/Order Number: [id number] Exam Date: 03/18/2025 12:33 Report Date: 03/18/2025 12:35 At the request of: MARYJANE REYNOLDS MD Procedure: US abdomen complete LIMITED ABDOMINAL ULTRASOUND: CLINICAL HISTORY: CIRRHOSIS K74.60 COMPARISON: None TECHNIQUE: Grayscale and color Doppler images of the right upper quadrant organs were obtained. FINDINGS: Pancreas: Visualized portions appear unremarkable. Liver: Cirrhotic liver without focal mass. Small amount of ascites. Hepatopedal flow is seen within the portal vein. Gallbladder: Removed. CBD: 5.9 mm Kidneys: No Hydronephrosis left renal cyst. Spleen: Splenomegaly measuring 14.6 cm. Visualized aorta appears normal in caliber. Visualized IVC appears patent. US/US abdomen complete IMPRESSION: CIRRHOTIC LIVER WITHOUT MASS. SMALL AMOUNT OF ASCITES. SPLENOMEGALY.. Impression dictated by: Shiv Sandoval Jr.OBrayan 03/18/2025 12:35 PM Dictation Location: [place] [address] Electronically authenticated by: [id number] Y Date: 03/18/2025 12:35
== END 2025-03-16 07:54 | disposition home or self-care (01) ==
LOC: US 07:53
PROVIDERS: PCP Family Medicine; Visit Provider Family Medicine
DX: K74.60 Unspecified cirrhosis of liver (principal); R18.8 Other ascites
CPT/HCPCS: 76700; 76705

== ENCOUNTER 2025-03-25 09:18 | Outpatient (RCR) | payer MEDICARE, SELFPAY ==
[2025-03-25 10:30] LABS: Eosinophils Absolute Auto 0.2 10^3/uL (0.0-0.7); Eosinophils Percent Auto 5.5 % (0.9-7.0); Hematocrit 28.8 % (36.0-48.0); Hemoglobin 8.3 g/dL (12.0-16.0); Immature Granulocytes Abs Auto 0.01 10^3/uL (0.00-0.03); Immature Granulocytes Pct Auto 0.2 % (0.0-0.5); Lymphocytes Absolute Auto 1.2 10^3/uL (1.2-3.8); Lymphocytes Percent Auto 28.7 % (20.5-60.0); Mean Corpuscular HGB Conc 28.8 g/dL (29.9-35.2); Mean Corpuscular Hemoglobin 24.1 pg (26.7-34.0); Mean Corpuscular Volume 83.7 fL (81.0-99.0); Mean Platelet Volume 10.7 fL (9.5-13.5); Monocytes Absolute Auto 0.4 10^3/uL (0.3-0.8); Monocytes Percent Auto 10.6 % (1.7-12.0); Neutrophils Absolute Auto 2.2 10^3/uL (1.4-6.5); Platelet Count 137 10^3/uL (150-450); Red Cell Distribution Width 20.8 % (11.0-15.0); White Blood Count 4.2 10^3/uL (4.0-11.0)
[2025-03-25 11:25] LABS: Red Blood Count 3.44 10^6/uL (4.20-5.40)
[2025-04-10 09:29] LABS: Basophils Percent Auto 0.8 % (0.2-2.0); Eosinophils Absolute Auto 0.3 10^3/uL (0.0-0.7); Eosinophils Percent Auto 5.7 % (0.9-7.0); Hematocrit 27.6 % (36.0-48.0); Hemoglobin 7.8 g/dL (12.0-16.0); Immature Granulocytes Abs Auto 0.01 10^3/uL (0.00-0.03); Immature Granulocytes Pct Auto 0.2 % (0.0-0.5); Lymphocytes Absolute Auto 1.3 10^3/uL (1.2-3.8); Lymphocytes Percent Auto 27.7 % (20.5-60.0); Mean Corpuscular HGB Conc 28.3 g/dL (29.9-35.2); Mean Corpuscular Hemoglobin 23.6 pg (26.7-34.0); Mean Corpuscular Volume 83.6 fL (81.0-99.0); Mean Platelet Volume 10.6 fL (9.5-13.5); Monocytes Absolute Auto 0.4 10^3/uL (0.3-0.8); Monocytes Percent Auto 8.4 % (1.7-12.0); Neutrophils Absolute Auto 2.7 10^3/uL (1.4-6.5); Neutrophils Percent Auto 57.2 % (43.0-75.0); Platelet Count 175 10^3/uL (150-450); Red Cell Distribution Width 20.5 % (11.0-15.0); White Blood Count 4.8 10^3/uL (4.0-11.0)
== END 2025-04-22 10:54 | disposition home or self-care (01) ==
LOC: LAB 09:18
PROVIDERS: PCP Family Medicine; Visit Provider Family Medicine
DX: K74.60 Unspecified cirrhosis of liver (principal)
CPT/HCPCS: 36415; 85025

== ENCOUNTER 2025-04-17 11:12 | Outpatient (OUT) | payer MEDICARE, SELFPAY ==
--- OUTSIDE RECORDS SUMMARY | 2025-03-25 10:59 | XMS_ITS ---
Author Organization [facility] in [place] Address [address] [place] [address] Care Team Providers Care Food And Beverage Controller Name Role Phone Shaq Valencia Primary Care Provider [phone] REASON FOR VISIT Hemoglobin Encounters Encounter Location Date Provider Diagnosis [facility] [address] [place] [address] 03/25/2025 Shaq Valencia Plan Of Treatment No Information Progress Notes * Shirley BRIAN ADOB: [birth year] (69 yo F)Acc No.[id number]:03/25/2025 Patient: Shirley ULRICH :1955 A ge:69 Y S ex:Female Address:[address] [place] [address], [phone] * true * Date: Generated for Natei jeramy/Denise/eTransmitting on: 0 04/17/2025 11:16 AM EDT
--- OUTSIDE RECORDS SUMMARY | 2025-04-02 07:01 | XMS_ITS ---
Author Organization [facility] in [place] Address [address] [place] [address] Care Team Providers Care Chief Embalmer Name Role Phone Shaq Valencia Primary Care Provider REASON FOR VISIT Refill- Medications Medication SIG (Take, Route, Fr equency, Duration) Notes Start Date End Date Status Amiodarone HCl 200 MG 1 tablet Oral Once a day for 90 days Active Magnesium 400 MG 1 capsule Orally Twi ce a day for 90 days Active Encounters Encounter Location Date Provider Diagnosis [address] [address] 04/02/2025 Shaq Valencia Chest wall pain R07 .89 Assessments Encounter Date Diagnosis (ICD Code) Assessment Notes Treatment Notes Treatment Clinical Notes Section Notes 04/02/2025 Chest wall pain (ICD-10 - R07.89) Plan Of Treatment Medication Medication Name Sig Start Date Stop Date Notes Amiodarone HCl 200 MG 1 tablet Oral Once a day for 90 days Magnesium 400 MG 1 capsule Orally Twi ce a day for 90 days Progress Notes * Shirley BRIAN ADOB: [birth year] (69 yo F)Acc No.[id number]:04/02/2025 Patient: Shirley ULRICH :1955 A ge:69 Y S ex:Female Address:[address] [place] [address] , [place], [address] * Refills Refill Amiodarone HCl Tablet, 200 MG, Oral, 90 Tablet, 1 tablet, Once a day, 90 days, Refills=3 Refill Magnesium Tablet, 400 MG, Orally, 180, 1 capsule, Twice a day, 90 days, Refills=3 * true * Date: Generated for Jamaal deshpande/Denise/Graceitting on: 0 04/17/2025 11:16 AM EDT
--- OUTSIDE RECORDS SUMMARY | 2025-04-10 08:56 | XMS_ITS ---
Author Organization [facility] in [place] Address [address] [place] [address] Care Team Providers Care Silk Spotter Name Role Phone Shaq Valencia Primary Care Provider REASON FOR VISIT lab results Encounters Encounter Location Date Provider Diagnosis [facility] [address] [place] [address] 04/10/2025 Shaq Valencia Plan Of Treatment No Information Progress Notes * Shirley BRIAN ADOB: [birth year] (69 yo F)Acc No.[id number]:04/10/2025 Patient: Shirley ULRICH :1955 A ge:69 Y S ex:Female Address:[address] [place] [address], [address] * true * Date: Generated for Jamaal deshpande/Denise/eTransmitting on: 0 04/17/2025 11:16 AM EDT
--- OUTSIDE RECORDS SUMMARY | 2025-04-10 13:30 | XMS_ITS | Encounter Summary ---
Author Organization [facility] Address [address] [place] [address] Care Team Providers Care Storage Worker Name Role Phone Harry Valencia MD Primary Care Provider [phone] Reason for Referral * (Routine) - Pending Review Specialty Diagnoses / Procedures Referred By Tin berkowitz Referred To Contact Gastroenterology Diagnoses Cirrhosis of liver with ascites, unspecified hepatic cirrhosis type (CMS/HCC) Procedures EGD Beni Gomez MD [address] [place] [address] [facility] [place] [address] Referral ID Status Reason Start Date Expiration Date V isits Requested Visits Authorized [id number] Pending Review 04/10/2025 04/10/2026 1 1 Reason for Visit * Reason Comments Follow-up Encounter Details Date Type Department Care Team (Late st Contact Info) Description 04/10/2025 1:30 PM EDT Follow-Up [facility] [address] [place] [phone] Beni Gomez MD [address] [place] [phone] Cirrhosis of liver with ascites, unspecified hepatic cirrhosis type (CMS/HCC) (Primary Dx) Social History Tobacco Use Types Packs/Day Years Used Date Smoking Tobacco: Never Smokeless Tobacco: Never Alcohol Use Standard Drinks/Week Comments Not Currently 0 (1 standard drink = 0.6 oz pur e alcohol) ID Safety & Environment Answer Date Rec orded Fear of Current or Ex-Partner Not on file Emotionally Abused Not on file 01/12/2024 Physically Abused Not on file 01/12/2024 Sexually Abused Not on file 01/12/2024 Physically or Sexually Abused Not on file Sex and Gender Information Value Date Recorded Sex Assigned at Not on file Gender Identity Not on file Sexual Orientation Not on file documented as of this encounter Last Filed Vital Signs Vital Sign Reading Time Taken Comments Blood Pressure 140/60 04/10/2025 1:57 PM EDT Pulse 78 04/10/2025 1:57 PM EDT Temperature - - Respiratory Rate - - Oxygen Saturation 97% 04/10/2025 1:57 PM EDT Inhaled Oxygen Concentration - - Weight 95.9 kg (211 lb 6.4 oz) 04/10/2025 1:57 P M EDT Height 167.6 cm (5' 6 ) 04/10/2025 1:57 PM EDT Body Mass Index 34.12 04/10/2025 1:57 PM EDT documented in this encounter Patient Instructions * Patient Instructions* Suzy Upton MD - 04/10/2025 1:30 PM EDT Please get blood work Schedule EGD I added a new pill called Aldactone to help with ascites. Follow up in 6 months documented in this encounter Progress Notes * Suzy Upton MD - 04/10/2025 1:30 PM EDT [facility] Gastroenterology History & Physical CHIEF COMPLAINT Chief Complaint Patient presents with Follow-up HISTORY OF PRESENT ILLNESS: Shirley Brian is a 69 y.o. female with a past medical history of hypertension, diabetes mellitusfor approximately 30 years, dyslipidemia, atrial fibrillation on Eliquis, and newly diagnosed livercirrhosis, who presents for follow up. Her initial HPI is below. The patient was recently hospitalized in October [...] for approximately two weeks post-hospitalization. She underwent anupper endoscopy and colonoscopy on November 06, which revealed gastric lesions and a single colonicpolyp; however, the detailed endoscopy report is unavailable. She is now scheduled for an esophagogastroduodenoscopy (EGD) on January 29 for further assessment of upper GI bleeding and variceal surveillance. Notably, she has a history of intermittent abdominal distension concerning for ascites, whichwas not present before her hospitalization. She denies current hematemesis, hematochezia, nausea, vomiting, or abdominal pain. Physical exam findings today include a non-tender, non- distended abdomenwithout evidence of shifting dullness. Her medications include Aldactone, amiodarone, metformin, omeprazole, and Eliquis, which has been held for two days per cardiology recommendation in preparationfor the EGD. Interval History 04/10/25 Since last visit, patient underwent EGD 01/29/25, which showed AVMs in the gastric antrum and one AVM in the fundus. There was no evidence of gastric or esophageal varices. Portal hypertensive gastropathy was noted. She underwent workup for liver disease, which showed negative AMA, GERMAN, IgG A1AT, Hepatitis panel, ceruloplasmin, and iron studies were suggestive of iron deficiency and not hemochromatosis. She had liver ultrasound with trace ascites. Patient had to be hospitalized again in February for Hgb of 5.1, she received 4 units of blood and wasdischarged. She denies hematochezia but reports her stool is dark. She is on an iron supplement Shedenies alcohol use. She reports abdominal distension and early satiety. PREVIOUS LABS/IMAGING/ENDOSCOPY: EGD and Colonoscopy was done at Dr. Turpin at [facility] 11/06/2025 EGD 01/29/25: Findings: The examination of the esophagus was unremarkable. No esophageal varices were identified. The GE junction was noted at 38 cm from the incisors. The examination of the stomach revealed few bleeding AVMs at the gastric antrum and 1 AVM at the gastric fundus. All AVMs were ablated with argon plasma coa gulation. Signs of early portal hypertensive gastropathy was noted. No gastric varices were noted. The examination of the duodenum was unremarkable. HISTORY: Problem list: Patient Active Problem List [...] No Known Problems Sister Heart disease Brother SOCIAL HISTORY: Social History Tobacco Use Smoking status: Never Smokeless tobacco: Never Vaping Use Vaping status: Never Used Substance Use Topics Alcohol use: Not Currently Drug use: Never ALLERGIES: Sulfa (sulfonamide antibiotics) Current Medications: Current Outpatient Medications: amiodarone (Pacerone) 200 mg tablet, Take 2 tablets (400 mg) by mouth two times daily for 14 days, THEN 1 tablet (200 mg) in the morning., Disp: 146 tablet, Rfl: 0 diclofenac (Voltaren) 75 mg EC tablet, Take [...] twice a day., Disp: , Rfl: metoprolol succinate XL (Toprol-XL) 25 mg 24 hr tablet, Take 1 tablet (25 mg) by mouth in the morning. Do not crush or chew., Disp: 90 tablet, Rfl: 3 metoprolol tartrate (Lopressor) 100 mg tablet, Take 1 tablet (100 mg) by mouth two times daily., Disp: 180 tablet, Rfl: 3 ondansetron ODT (Zofran-ODT) 4 mg disintegrating tablet, Take 4 mg by mouth every 8 (eight) hours if needed for nausea or vomiting., Disp: , Rfl: pantoprazole (ProtoNix) 40 mg EC tablet, Take 40 mg by mouth if needed each day., Disp: , Rfl: ramipril (Altace) 10 mg capsule, Take 10 mg by mouth in the morning., Disp: , Rfl: simvastatin (Zocor) 20 mg tablet, Take 20 mg by mouth at bedtime., Disp: , Rfl: spironolactone (Aldactone) 25 mg tablet, TAKE 2 TABLETS BY MOUTH DAILY FOR 3 DAYS, Disp: , Rfl: venlafaxine XR (Effexor-XR) 75 mg 24 hr capsule, Take 75 mg by mouth in the morning., Disp: , Rfl: spironolactone (Aldactone) 50 mg tablet, Take 1 tablet (50 mg) by mouth in the morning., Disp: 30 tablet, Rfl: 11 I reviewed and reconciled this patient's medication list today. The list included in this note is the most up to date list that I can attest to at this time based on the information that the patient has provided me and the electronic medical record. REVIEW OF SYSTEMS: See HPI, otherwise ROS as below CONSTITUTIONAL: negative HEENT: negative RESPIRATORY: negative CARDIOVASCULAR: negative GASTROINTESTINAL: As in HPI GENITOURINARY: negative INTEGUMENT/BREAST: negative MUSCULOSKELETAL: negative NEUROLOGICAL: negative BEHAVIOR/PSYCH: negative PHYSICAL EXAM: Vitals: 04/10/25 1357 BP: 140/60 BP Location: Left arm Patient Position: Sitting BP Cuff Size: Adult Pulse: 78 SpO2: 97% Weight: 95.9 kg (211 lb 6.4 oz) Height: 1.676 m (5' 6 ) Body mass index is 34.12 kg/m??. GEN: Alert and oriented x3, NAD HEENT: Atraumatic, normocephalic CV: Regular rate and rhythm PULM: Breathing comfortably ABD: Soft, non-tender, non-distended NEURO: Moves all 4 extremities spontaneously LABORATORY DATA: CBC: No results found for: WBC , RBC , HGB , HCT , MCV , RDW , PLT PT/INR No results found for: PT , INR BMP: No results found for: NA , K , CL , BUN , CREATININE , EGFR , GLU LFTs: No results found for: BILITOT , BILIDIR , ALKPHOS , GGT , AST , ALT , ALBUMIN , PROT B12/Folate/Iron studies: No results found for: [id number] , FOLATE , IRON , TIBC , UIBC , IRONSAT , FERRITIN Viral Hepatitis No results found for: HEPAIGM , HAV , HEPBSAG , HEPBSAB , HEPBEAB , HEPBIGM , HEPBCAB , HEPBCOREAB , HBVNAT , HCVSCR , HEPCAB , HCVNAT , HCVPCR , HCVTMA Liver Workup No results found for: GERMAN , SMOOTHMUSCAB , CERULOPLSM , [id number] , TTGA , IGA , TSH , FREET4 , AFP Pancreatitis No results found for: AMYLASE , LIPASE , TRIG , CALCIUM ASSESSMENT AND PLAN: Impression: Compensated Cirrhosis: Etiology: 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 One or more values for this score either were not found within the given timeframe or did not fit some other criterion. Computed MELD-Na unavailable. One or more values for this score either were not found within the given timeframe or did not fit some other criterion. Atrial Fibrillation on Anticoagulation (Eliquis) History of iron deficiency anemia due to AVMs Plan Patient is up date with HCC screening, repeat in 6 months (Due August 2025) Update MELD labs Counseled on lifestyle modifications, including Mediterranean diet, exercise, and avoidance of alcohol Given trace amount of hepatic ascites on ultrasound, with worsening abdominal distension concerningfor possible increased ascites, will add Aldactone 50mg to her Lasix 20mg. Given continued dark stools, recent admission for recurrent anemia, and history of AVMs on EGD 01/29/25, will order EGD with push for further assessment of anemia and dark stools. Follow up in 3-6 months. Diagnoses and all orders for this visit: Cirrhosis of liver with ascites, unspecified hepatic cirrhosis type (CMS/HCC) - spironolactone (Aldactone) 50 mg tablet; Take 1 tablet (50 mg) by mouth in the morning. - EGD; Future - Comprehensive metabolic panel; Future - Protime-INR; Future Thank you for allowing me to participate in this pleasant patient???s care. Associated attestation - Beni Gomez MD - 04/10/2025 8:58 PM EDT Seen and discussed with fellow, agree with assessment and plan. documented in this encounter Plan of Treatment Upcoming Encounters Date Type Department Care Team (Latest Contact Info) Description 04/23/2025 11:45 AM EDT Office Visit [place] [address] [place] [address] Rogers Catalan MD [address] [facility] [place] [address] 06/13/2025 8:00 AM EDT Hospital Encounter [facility] [address] [place] [address] Rogers Catalan MD [address] [place] [address] Paroxysmal atrial fibrillation (CMS/HCC) 06/13/2025 8:00 AM EDT - 06/13/2025 12:00 PM EDT Surgery [facility] [place] [facility] [address] [place] [address] Rogers Catalan MD [address] [place] [address] Ablation a-fib paroxysmal [[id number]] 06/13/2025 8:00 AM EDT Appointment [facility] [place] [facility] [address] [place] [address] 10/16/2025 1:30 PM EST Follow-Up [facility] [address] [place] [address] Beni Gomez MD [address] [facility] [address] [place] [address] Scheduled Orders Name Type Priority Associated Diagnoses Orde r Schedule EGD Endoscopy Routine Cirrhosis of liver with ascites, unspecified hepatic cirrhosis type (CMS/HCC) Expected: 04/10/2025, Expires: 04/10/2026 Comprehensive metabolic panel Lab Routine Cirrhosis of liver with ascites, unspecified hepatic cirrhosis type (CMS/HCC) Expected: 04/10/2025 (Approximate), Expires: 04/10/2026 Protime-INR Lab Routine Cirrhosis of liver with ascites, unspecified hepatic cirrhosis type (CMS/HCC) Expected: 04/10/2025 (Approximate), Expires: 04/10/2026 documented as of this encounter Visit Diagnoses Diagnosis Atrial fibrillation (CMS/HCC)- Primary Atrial fibrillation Paroxysmal atrial fibrillation (CMS/HCC) Atrial fibrillation Cirrhosis of liver with ascites, unspecified hepatic cirrhosis type (CMS/HCC)- Primary Paroxysmal atrial fibrillation (CMS/HCC) Atrial fibrillation documented in this encounter Care Teams Storage Worker Relationship Specialty Start Date End Date Harry Valencia MD [address] [facility] [place] [address] PCP - General 06/20/23 documented as of this encounter
--- OUTSIDE RECORDS SUMMARY | 2025-04-17 11:17 | XMS_ITS | Referral Summary ---
Author Organization [facility] Address [address] [place] [address] Care Team Providers Care Mechanical Sound Technician Name Role Phone Harry Suárez MD Primary Care Provider [phone] Encounters Date Type Department Care Team Description 04/17/2025 Orders Only [facility] [address] [place] [phone] Cande Steele MA Abnormal laboratory test 04/10/2025 1:30 PM EDT Follow-Up [facility] at [address] [phone] Beni Gomez MD Cirrhosis of liver with ascites, unspecified hepatic cirrhosis type (CMS/HCC) (Primary Dx) 03/06/2025 Orders Only [facility] [address] [place] [phone] Nubia Martin MD 03/05/2025 10:05 PM EDT Ancillary Procedure [facility] [address] [place] [phone] Awareness of heartbeats 02/26/2025 Orders Only [facility] [address] [place] [address] Steele, Cande, MA Paroxysmal atrial fibrillation (CMS/HCC) 02/26/2025 1:45 PM EDT Office Visit [facility] [address] [place] [phone] Rogers Catalan MD Hepatic cirrhosis, unspecified hepatic cirrhosis type, unspecified whether ascites present (CMS/HCC); Paroxysmal atrial fibrillation (CMS/HCC) 02/04/2025 6:05 PM EDT Ancillary Procedure [facility] [address] [place] [phone] Awareness of heartbeats 01/29/2025 Travel 01/29/2025 9:53 AM EDT - 01/29/2025 11:59 PM EDT Hospital Encounter [facility] [address] [place] [phone] Jesus Emerson MD Bhatt, Shashi B., MD Wikaryasz, Andrew, CAA Hepatic cirrhosis, unspecified hepatic cirrhosis type, unspecified whether ascites present (CMS/HCC) Discharge Disposition: Home or Self Care (01) 01/29/2025 11:55 AM EDT Anesthesia Event [facility] [address] [place] [phone] Henry Bull MD Meehl, Austin, MD 01/23/2025 2:30 PM EST Office Visit [facility] at [facility] [address] [place] [phone] Beni Gomez MD Cirrhosis of liver with ascites, unspecified hepatic cirrhosis type (CMS/HCC) (Primary Dx); Pulmonary hypertension (CMS/HCC) 01/22/2025 Telephone [facility] [address] [place] [phone] Marina Barr, MIHIR 01/21/2025 Travel from Last 3 Months Allergies Active Allergy Reactions Criticality Noted Date Comments Sulfa (Sulfonamide Antibiotics) Hives 07/2019 Medications Medication Sig Dispensed Refills Start Date End Date Status Eliquis 5 mg tablet Take 5 mg by mouth two times daily. 05/27/2023 Active metFORMIN (Glucophage) 500 mg tablet Take 1 tablet by mouth twice a day. Active venlafaxine XR (Effexor-XR) 75 mg 24 hr capsule Take 75 mg by mouth in the morning. 05/23/2023 Active simvastatin (Zocor) 20 mg tablet Take 20 mg by mouth at bedtime. 03/27/2023 Active ramipril (Altace) 10 mg capsule Take 10 mg by mouth in the morning. 04/02/2023 Active diclofenac (Voltaren) 75 mg EC tablet Take 75 mg by mouth if needed. 12/04/2023 Active pantoprazole (ProtoNix) 40 mg EC tablet Take 40 mg by mouth if needed each day. 12/04/2023 Active magnesium oxide (Mag-Ox) 400 mg (241.3 mg magnesium) tabletIndications:Par oxysmal atrial fibrillation (CMS/HCC) Take 1 tablet (400 mg) by mouth once daily as directed. 90 tablet 3 04/19/2024 Active furosemide (Lasix) 20 mg tabletIndications:Par oxysmal atrial fibrillation (CMS/HCC) Take 1 tablet (20 mg) by mouth in the morning. 90 tablet 3 07/12/2024 07/12/2025 Active metoprolol tartrate (Lopressor) 100 mg tabletIndications:Par oxysmal atrial fibrillation (CMS/HCC) Take 1 tablet (100 mg) by mouth two times daily. 180 tablet 3 11/09/2024 11/04/2025 Active amiodarone (Pacerone) 200 mg tabletIndications:Par oxysmal atrial fibrillation (CMS/HCC) Take 2 tablets (400 mg) by mouth two times daily for 14 days, THEN 1 tablet (200 mg) in the morning. 146 tablet 12/18/2024 04/10/2026 Active metoprolol succinate XL (Toprol-XL) 25 mg 24 hr tabletIndications:Par oxysmal atrial fibrillation (CMS/HCC) Take 1 tablet (25 mg) by mouth in the morning. Do not crush or chew. 90 tablet 3 12/18/2024 12/18/2025 Active spironolactone (Aldactone) 25 mg tablet TAKE 2 TABLETS BY MOUTH DAILY FOR 3 DAYS 12/25/2024 Active ondansetron ODT (Zofran-ODT) 4 mg disintegrating tablet Take 4 mg by mouth every 8 (eight) hours if needed for nausea or vomiting. Active spironolactone (Aldactone) 50 mg tabletIndications:Cir rhosis of liver with ascites, unspecified hepatic cirrhosis type (CMS/HCC) Take 1 tablet (50 mg) by mouth in the morning. 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, without long-term current use of insulin 11/09/2024 Diverticulosis 11/09/2024 History of Clostridium difficile colitis 024 Melena 11/09/2024 Occult blood in stools 11/09/2024 BERRY (dyspnea on exertion) 04/19/2024 Valvular heart disease 04/19/2024 Class 2 obesity due to exces s calories without serious comorbidity with body mass index (BMI) of 35.0 to 35.9 in adult 04/19/2024 Anemia 11/08/2023 11/08/2023 Biceps tendinitis of left shoulder 11/08/2023 11/08/2023 Cataract 11/08/2023 11/08/2023 Chronic kidney disease 11/08/2023 Disorder of intervertebral disc of lumbar spine 11/08/2023 11/08/2023 Diverticular disease of colon 11/08/2023 Dry eye syndrome 11/08/2023 11/08/2023 Dyslipidemia 11/08/2023 11/08/2023 Enterocolitis due to Clostri dium difficile, not specified as recurrent 11/08/2023 11/08/2023 Palpitations 11/08/2023 11/08/2023 Pure hypercholesterolemia 11/08/20232022 Rotator cuff tear, left 11/08/2023 11/08/20 Atrial fibrillation Assessment & Plan (06/28/2023 3:16 PM EDT): -[id number] at least 4 for age, gender, hypertension, diabetes - No AAD on board - continue Eliquis 5 mg, Toprol tartrate 50 mg twice daily C. difficile colitis Assessment & Plan (06/28/2023 3:16 PM EDT): - resolved. This could have been the trigger to her A-fib but she was noted to have palpitations previously and intentionally avoided for that reason Diabetes mellitus Assessment & Plan (06/28/2023 3:17 PM EDT): - controlled, follow-up with Dr. suárez Hypertension Assessment & Plan (06/28/2023 3:18 PM EDT): - stable, continue medication Acute on chronic heart failu re with preserved ejection fraction LVH (left ventricular hypertrophy) Mitral valve insufficiency and aortic valve insu fficiency Immunizations Name Administration Dates Next Due Influenza, Unspecified 10/31/2017,09/24/2016 Influenza, injectable, MDCK, preservative free, quadrivalent 09/01/2022,08/26/2020 Influenza, injectable, quadrivalent, preservativ e free 08/11/2021,08/02/2019 Influenza, seasonal, injectable 09/03/2019 Influenza, trivalent, adjuvanted 12/29/2024 Pneumococcal Conjugate PCV 20 12/29/2024 Pneumococcal Polysaccharide PPV23 10/31/2017 Tdap 07/20/2022,03/12/2016 Social History Tobacco Use Types Packs/Day Years Used Date Smoking Tobacco: Never Smokeless Tobacco: Never Tobacco Cessation:Counseling Given: Not Answered Alcohol Use Standard Drinks/Week Comments Not Currently 0 (1 standard drink = 0.6 oz pur e alcohol) [place] Safety & Environment Answer Date Rec orded Fear of Current or Ex-Partner Not on file Emotionally Abused Not on file 01/12/2024 Physically Abused Not on file 01/12/2024 Sexually Abused Not on file 01/12/2024 Physically or Sexually Abused Not on file Sex and Gender Information Value Date Recorded Sex Assigned at Not on file Gender Identity Not on file Sexual Orientation Not on file Last Filed Vital Signs Vital Sign Reading Time Taken Comments Blood Pressure 140/60 04/10/2025 1:57 PM EDT Pulse 78 04/10/2025 1:57 PM EDT Temperature 36 C (96.8 F) 01/29/2025 12:50 PM EDT Respiratory Rate 20 01/29/2025 12:50 PM EDT Oxygen Saturation 97% 04/10/2025 1:57 PM EDT Inhaled Oxygen Concentration - - Weight 95.9 kg (211 lb 6.4 oz) 04/10/2025 1:57 P M EDT Height 167.6 cm (5' 6 ) 04/10/2025 1:57 PM EDT Body Mass Index 34.12 04/10/2025 1:57 PM EDT Plan of Treatment Upcoming Encounters Date Type Department Care Team (Latest Contact Info) Description 04/23/2025 11:45 AM EDT Office Visit [facility] [place] [address] [place] [phone] Rogers Catalan MD [address] [place] [phone] 06/13/2025 8:00 AM EDT Hospital Encounter [facility] [address] [place] [phone] Rogers Catalan MD [address] [place] [phone] Paroxysmal atrial fibrillation (CMS/HCC) 06/13/2025 8:00 AM EDT - 06/13/2025 12:00 PM EDT Surgery [facility] [address] [place] [phone] Rogers Catalan MD [address] [place] [phone] Ablation a-fib paroxysmal [01100] 06/13/2025 8:00 AM EDT Appointment [facility] [address] [place] [phone] 10/16/2025 1:30 PM EST Follow-Up [facility] at [facility] [address] [place] [phone] Beni Gomez MD [address] [facility] [address] [facility] [place] [phone] Medical Devices Implanted Type Area Funeral Planning Counselor Device Identifier Shelf Expiration Date Model / Serial / Lot Monitor,Cardi ac,Lux,Dxii+I - [id number] - [id number] Implanted:Qty : 1 on 08/06/2024 by Rogers Catalan MD at [facility] Implantable Loop Recorder Left: Chest Context app 12/28/2025 [id number] / [id number] / Procedures Procedure Name Priority Date/Time Associated Diagnosis Comments CARDIAC DEVICE CHECK CHECK - REMOTE Routine 04/01/2025 12:44 PM EDT Awareness of heartbeats CARDIAC DEVICE CHECK - REMOTE - LOOP RECORDER (ILR) Routine 03/06/2025 12:00 AM EDT CARDIAC DEVICE CHECK - REMOTE - LOOP RECORDER (ILR) Routine 02/07/2025 9:53 AM EDT Awareness of heartbeats EGD Routine 01/29/2025 12:18 PM EDT Hepatic cirrhosis, unspecified hepatic cirrhosis type, unspecified whether ascites present (CMS/HCC) POCT GLUCOSE METER UNSOLICITED RESULTS Routine 01/29/2025 11:41 AM EDT POCT GLUCOSE METER UNSOLICITED RESULTS Routine 01/29/2025 10:20 AM EDT from Last 3 Months Results * CARDIAC DEVICE CHECK - REMOTE - LOOP RECORDER (ILR) (04/01/2025 12:44 PM EDT) Only the most recent of2 resultswithin the time period is included. Rogers Catalan MD CV IMPLANTABLE CARDI AC DEVICE PROCEDURES CPACS * Cardiac device check - Remote loop recorder (ILR) (03/06/2025 12:00 AM EDT) Anatomical Region Laterality Modality Other 03/06/2025 Samer Thalia Martin MD CV IMPLANTABLE CARDI AC DEVICE PROCEDURES * EGD (01/29/2025 12:18 PM EDT) Anatomical Region Laterality Modality Endoscopy Narrative 01/29/2025 4:02 PM EDT Table formatting from the original result was not included. Esophagogastroduodenoscopy (EGD) Procedure Note Procedure: EGD with ablations of AVM with argon plasma coagulation Indications: 69 y.o. female who had an episode of upper GI bleeding with melena and anemia with history of steatohepatitis and the newly diagnosed cirrhosis. The patient is scheduled to have an upper endoscopy to rule out upper GI bleeding. Sedation: MAC Medications: lactated Ringer's infusion 300 mL* *From user-documented volume (Totals for administrations occurring from 1152 to 1239 on 01/29/25) Attending Physician: Jesus Emerson MD Procedure Details: Informed consent was obtained for the procedure, including sedation. Risks of infection, perforation, hemorrhage, adverse drug reaction, and aspiration were discussed. The patient was placed in the left lateral decubitus position. The patient was monitored continuously with ECG tracing, pulse oximetry, blood pressure monitoring, and direct observation. The gastroscope was inserted into the mouth and advanced under direct vision to second portion of the duodenum. A careful inspection was made as the gastroscope was withdrawn, including a retroflexed view of the proximal stomach; findings and interventions are described below. Appropriate photodocumentation was obtained. Findings: The examination of the esophagus was unremarkable. No esophageal varices were identified. The GE junction was noted at 38 cm from the incisors. The examination of the stomach revealed few bleeding AVMs at the gastric antrum and 1 AVM at the gastric fundus. All AVMs were ablated with argon plasma coagulation. Signs of early portal hypertensive gastropathy was noted. No gastric varices were noted. The examination of the duodenum was unremarkable. Specimens: No specimens collected Complications: None Estimated blood loss: Minimal Disposition: Home Condition: stable Impression: Unremarkable examination of the esophagus. No esophageal varices. Multiple small AVMs that were oozing the blood noted at the gastric antrum and 1 was noted at the gastric fundus. All gastric AVMs were ablated with argon plasma coagulation. Signs of early portal hypertensive gastropathy. No gastric varices were identified. Unremarkable examination of the duodenum. Recommendations: Follow-up in the hepatology clinic for further management Follow-up H&H Attending Attestation: I performed the procedure. Jesus Emerson MD ENDOSCOPY PROCEDURE ORDERABLES * (ABNORMAL) POCT glucose meter (01/29/2025 11:41 AM EDT) Only the most recent of2 resultswithin the time period is included. Glucose POC 248(H) 70 - 105 mg/dL 01/29/2025 11:53 AM EDT [facility] Comment:ltolles Blood Capillary blood specimen / Unknown 01/29/2025 11:41 AM EDT 01/29/2025 11:53 AM EDT Narrative [facility] - 01/29/2025 11:53 AM EDT Waived Testing in the ED is performed under the ED CLIA certificate #[id number]. Jesus Emerson MD LAB BLOOD ORDERABLES [facility] [address] [place] [address] from Last 3 Months Care Teams Mechanical Sound Technician Relationship Specialty Start Date End Date Harry Suárez MD [address] [facility] [place] [address] PCP - General 06/20/23
--- OUTSIDE RECORDS SUMMARY | 2025-04-17 11:17 | XMS_ITS | Patient Health Record ---
Author Organization The [facility] in [place] Address [address] [place] [address] Care Team Providers Care Nurse School Name Role Phone Shaq Valencia Primary Care Provider HARRY VALENCIA Unavailable [phone] Shannan Swain Unavailable [phone] Allergies Allergen (clinical drug ingredient) Drug/Non Drug Allergy documented on EMR Reaction Allergy Type Onset Date Status Substance with sulfonamide structure and antibacterial mechanism of action (substance) Sulfa Antibiotics hives Drug Allergy Active Results Component Value Reference Range Notes XR abdomen 1V Reviewed date:07/09/2024 09:06:35 PM Interpretation: Performing Lab: Notes/Report: Source Facility: [place] [address] [place] [address] XRay Report Signed Patient: CONNIE BRIAN MR#: [id number] : 1955 Acct:[id number] Age/Sex: 68 / F ADM Date: 07/04/24 Loc: RAD Attending Dr: Harry Valencia M.D. Ordering Physician: Harry Valencia M.D. Date of Service: 07/04/24 Procedure(s): XR abdomen 1V Accession Number(s): [id number] cc: Harry Valencia M.D. [place] [address] Patient Name: CONNIE BRIAN MRN: [facility]:[id number] date: 1955 Sex: F Assigned Patient Location: RAD Current Patient Location: Accession/Order Number: [id number] Exam Date: 07/04/2024 15:10 Report Date: 07/09/2024 07:23 At the request of: HARRY VALENCIA Procedure: XR abdomen 1V EXAMINATION: XR abdomen 1V HISTORY: Chronic Kidney Disease N18.9 COMPARISON: No relevant comparison available. FINDINGS: KIDNEY/URETER - RIGHT: No visible renal or ureteral calcifications. KIDNEY/URETER - LEFT: No visible renal or ureteral calcifications. PELVIS: No visible ureteral calcifications. Any visible calcifications favor phleboliths. BOWEL: No abnormal dilation or deviation. BONES: Moderate diffuse spondylosis and facet osteoarthropathy of the spine. Bilateral sacroiliac joint sclerosis. Mild bilateral hip osteoarthritis OTHER: Negative. No abnormal gaseous collections. XR/XR abdomen 1V IMPRESSION: No definite urinary tract calculi Electronically authenticated by: MAISHA ALBRIGHT Date: 07/09/2024 07:23 Dictated By: Maisha Albright M.D. Signed By: 07/09/24724 DD/ 2 TD/TT: Watch Crystal Molder: [place] [address] XRay Report Signed Patient: STEPHEN BRIAN MR#: [id number] : 1955 Acct:[id number] Age/Sex: 68 / F ADM Date: 07/04/24 Loc: RAD Attending Dr: Miya Valencia M.D. Ordering Physician: Harry Valencia M.D. Date of Service: 07/04/24 Procedure(s): XR abd omen 1V Accession Number(s): [id number] cc: Harry Valencia M.D. [address] [address] Patient Name: CONNIE BRIAN MRN: [facility]:[id number] date: 1955 Sex: F Assigned Patient Location: [facility] Current Patient Location: Accession/Order Numb er: [id number] Exam Date: 07/04/2024 15:10 Report Date: 07/09/2024 07:23 At the request of: HARRY VALENCIA Procedure: XR abdomen 1V EXAMINATION: XR abdo men 1V HISTORY: Chronic Kid dia Disease N18.9 COMPARISON: No relev ant comparison available. FINDINGS: KIDNEY/URETER - RIGH T: No visible renal or ureteral calcifications. KIDNEY/URETER - LEFT : No visible renal or ureteral calcifications. PELVIS: No visible ureteral calcifications. Any visible calcifications favor phleboliths. BOWEL: No abnormal dilation or deviation. BONES: Moderate diff use spondylosis and facet osteoarthropathy of the spine. Bilateral sacroiliac joint sclerosis. Mild bilateral hip osteoarthritis OTHER: Negative. No abnormal gaseous collections. X R/XR abdomen 1V IMPRESSION: No definite urinary tract calculi Electronically authenticated by: MAISHA ALBRIGHT Date: 07/09/2024 07:23 Dictated By: Prasanna Albright M.D. Signed By: 07/09/24 0725 DD/ 0723 TD/TT: Watch Crystal Molder: CBC AUTO DIFF Reviewed date:10/07/2024 02:07:24 PM Interpretation: Performing Lab: Notes/Report: The [facility] , White Blood Count 5.7 4.0-11.0 10 3/uL Red Blood Count 4.89 4.20-5.40 10 6/uL 1+ ANSIOCYTOSIS 1+ HYPOCHROMIA Hemoglobin 11.1 12.0-16.0 g/dL Hematocrit 38.6 36.0-48.0 % Mean Corpuscular Volume 78.9 81.0-99.0 fL Mean Corpuscular Hemoglobin 22.7 26.7-34.0 pg Mean Corpuscular HGB Conc 28.8 29.9-35.2 g/dL Red Cell Distribution Width 18.7 11.0-15.0 % Platelet Count 166 150-450 10 3/uL Mean Platelet Volume 10.7 9.5-13.5 fL Neutrophils Percent Auto 57.7 43.0-75.0 % Lymphocytes Percent Auto 28.9 20.5-60.0 % Monocytes Percent Auto 8.1 1.7-12.0 % Eosinophils Percent Auto 4.4 0.9-7.0 % Basophils Percent Auto 0.7 0.2-2.0 % Immature Granulocytes Pct Auto 0.2 0.0-0.5 % Neutrophils Absolute Auto 3.3 1.4-6.5 10 3/uL Lymphocytes Absolute Auto 1.6 1.2-3.8 10 3/uL Monocytes Absolute Auto 0.5 0.3-0.8 10 3/uL Eosinophils Absolute Auto 0.3 0.0-0.7 10 3/uL Basophils Absolute Auto 0.0 0.0-0.1 10 3/uL Immature Granulocytes Abs Auto 0.01 0.00-0.03 10 3/uL Performing Lab: see note ML - [facility] LB BLOOD CULTURE ID PANEL Reviewed date:11/15/2024 06:06:55 PM Interpretation: Performing Lab: Notes/Report: [facility] , CTX-M NOT APPLICABLE NOT DETECTE IMP NOT APPLICABLE NOT DETECTE KPC NOT APPLICABLE NOT DETECTE mcr-1 NOT APPLICABLE NOT DETECTE mecA/C NOT APPLICABLE NOT DETECTE mecA/C and MREJ (MRSA) NOT APPLICABLE NOT DETECTE NDM NOT APPLICABLE NOT DETECTE OXA-48-like NOT APPLICABLE NOT DETECTE Prudence/B NOT APPLICABLE NOT DETECTE VIM NOT APPLICABLE NOT DETECTE Source BLOOD Enterococcus faecalis NOT DETECTED NOT DETECTE Enterococcus faecium NOT DETECTED NOT DETECTE Listeria monocytogenes NOT DETECTED NOT DETECTE Staphylococcus spp. DETECTED NOT DETECTE RESULTS CALLED TO MADDIE SHANKAR RN AT 1002 Staphylococcus aureus DETECTED NOT DETECTE RESULT S CALLED TO MADDIE SHANKAR RN AT 1002 Staphylococcus epidermidis NOT DETECTED NOT DETECTE Staphylococcus lugdunensis NOT DETECTED NOT DETECTE Streptococcus spp. NOT DETECTED NOT DETECTE Streptococcus agalactiae NOT DETECTED NOT DETECTE Streptococcus pneumoniae NOT DETECTED NOT DETECTE Streptococcus pyogenes NOT DETECTED NOT DETECTE A. calcoaceticus-baumannii Cpx NOT DETECTED NOT DETECTE Bacteroides fragilis NOT DETECTED NOT DETECTE Enterobacterales NOT DETECTED NOT DETECTE Enterobacter cloacae complex NOT DETECTED NOT DETECTE Escherichia coli NOT DETECTED NOT DETECTE Klebsiella aerogenes NOT DETECTED NOT DETECTE Klebsiella oxytoca NOT DETECTED NOT DETECTE Klebsiella pneumoniae group NOT DETECTED NOT DETECTE Proteus spp. NOT DETECTED NOT DETECTE Salmonella spp. NOT DETECTED NOT DETECTE Serratia marcescens NOT DETECTED NOT DETECTE Haemophilus influenzae NOT DETECTED NOT DETECTE Neisseria meningitidis NOT DETECTED NOT DETECTE Pseudomonas aeruginosa NOT DETECTED NOT DETECTE Stenotrophomonas maltophilia NOT DETECTED NOT DETECTE Roxy albicans NOT DETECTED NOT DETECTE Roxy auris NOT DETECTED NOT DETECTE Roxy glabrata NOT DETECTED NOT DETECTE Roxy krusei NOT DETECTED NOT DETECTE Roxy parapsilosis NOT DETECTED NOT DETECTE Roxy tropicalis NOT DETECTED NOT DETECTE Cryptococcus neoformans/gattii NOT DETECTED NOT DETECTE Performing Lab: see note ML - [facility] LB BNP Reviewed date:11/15/2024 06:06:55 PM Interpretation: Performing Lab: Notes/Report: The [facility] , NT Pro B Type Natriuretic Pept 7070.0 <=900.0 pg/mL RESULTS CALLED TO DR Brayan ABARCA Performing Lab: see note ML - [facility] LB CBC AUTO DIFF Reviewed date:11/15/2024 06:06:55 PM Interpretation: Performing Lab: Notes/Report: The [facility] , White Blood Count 10.6 4.0-11.0 10 3/uL Red Blood Count 3.50 4.20-5.40 10 6/uL Hemoglobin 8.5 12.0-16.0 g/dL Hematocrit 28.4 36.0-48.0 % Mean Corpuscular Volume 81.1 81.0-99.0 fL Mean Corpuscular Hemoglobin 24.3 26.7-34.0 pg Mean Corpuscular HGB Conc 29.9 29.9-35.2 g/dL Red Cell Distribution Width 20.5 11.0-15.0 % Platelet Count 187 150-450 10 3/uL Mean Platelet Volume 11.0 9.5-13.5 fL Performing Lab: see note ML - [facility] LB LACTATE or LACTIC ACID Reviewed date:11/15/2024 06:06:55 PM Interpretation: Performing Lab: Notes/Report: The [facility] , Lactate/Lactic Acid 6.2 0.4-2.0 mmol/L RESULT S CALLED TO ricardo mclain rn Performing Lab: see note ML - [facility] LB PROF 14(COMP METB) Reviewed date:11/15/2024 06:06:55 PM Interpretation: Performing Lab: Notes/Report: The [facility] , Sodium 129 136-145 mmol/L Potassium 4.1 3.5-5.1 mmol/L Chloride 97 98-107 mmol/L Carbon Dioxide 22.0 21.0-32.0 mmol/L Anion Gap 14.1 Glucose 485 74-106 mg/dL Blood Urea Nitrogen 54.0 7.0-18.0 mg/dL Creatinine 1.90 0.55-1.02 mg/dL Estimated GFR ( Madiha 32 >=60 mL/min/1.73m 2 Estimated GFR (Non- Ana Luisa 26 >=60 mL/min/1.73m 2 BUN Creatinine Ratio 28.4 Calcium 8.1 8.5-10.1 mg/dL Bilirubin Total 1.1 0.2-1.0 mg/dL Aspartate Amino Transferase 46 15-37 U/L Alanine Aminotransferase 23 14-59 U/L Alkaline Phosphatase 208 46-116 U/L Total Protein 5.9 6.4-8.2 g/dL Albumin Level 1.6 3.4-5.0 g/dL Globulin 4.3 Albumin Globulin Ratio 0.4 Performing Lab: see note ML - [facility] LB UA (CLEAN or CATCH) WEIGH MACHINE OPERATOR or M ICRO IF IND. Reviewed date:11/15/2024 06:06:55 PM Interpretation: Performing Lab: Notes/Report: The [facility] , Color Urine YELLOW YELLOW Clarity Urine CLEAR CLEAR Specific Falcon Urine 1.025 1.005-1.025 pH Urine 5.0 5.0-9.0 Protein Urine TRACE NEG/TRACE mg/dL Glucose Urine UA >=1000 NEGATIVE mg/dL Bilirubin Urine SMALL NEGATIVE Ketones Urine TRACE NEGATIVE mg/dL Blood Urine NEGATIVE NEGATIVE Nitrite Urine NEGATIVE NEGATIVE Urobilinogen Urine 1.0 0.2-1.0 EU/dL Leukocyte Esterase Urine TRACE NEGATIVE Urine Microscopic Indicated YES Performing Lab: see note ML - [facility] LB URINE MICROSCOPIC ONLY Reviewed date:11/15/2024 06:06:55 PM Interpretation: Performing Lab: Notes/Report: The [facility] , WBC Urine 2-5 NONE SEEN #/HPF RBC Urine 0-2 0-2 #/HPF Bacteria Urine MODERATE NONE SEEN #/HPF Mucus Urine NONE SEEN NONE SEEN Squamous Epithelial Cell Urine RARE NONE/RARE #/LPF Crystals Seen? None Seen None Seen #/HPF Cast Seen? NONE SEEN NONE SEEN #/LPF Urine Culture Indicated YES Performing Lab: see note ML - [facility] LB Prothrombin Time INR Reviewed date:11/15/2024 06:06:55 PM Interpretation: Performing Lab: Notes/Report: The [facility] , Prothrombin Time 12.8 9.0-11.6 sec INR 1.23 DESIRED INR: 2.0-3.0 CONDITIONS NOT LISTED BELOW 2.5-3.5 FOR PROSTHETIC HEART VALVE REPLACEMENT 2.5-3.5 RECURRENT THROMBOSIS Performing Lab: see note ML - The [facility] LB Manual Differential Reviewed date:11/15/2024 06:06:55 PM Interpretation: Performing Lab: Notes/Report: The [facility] , Segmented Neutrophils % Manual 76.0 43.0-75.0 Band Neutrophils % 15.0 0-5 % Lymphocytes Percent Manual 3.0 20.5-60.0 % Monocytes Percent Manual 5.0 1.7-12.0 % Eosinophils Percent Manual 0.0 0.9-7.0 % Basophils Percent Manual 0.0 0.2-2.0 % Metamyelocytes % 1.0 Segmented Neut Absolute Manual 8.05 1.4-6.5 10 3/uL Band Neutrophils Absolute 1.6 0.0-0.3 10 3/uL Lymphocytes Absolute Manual 0.31 1.20-3.80 10 3/uL Monocytes Absolute Manual 0.53 0.30-0.80 10 3/uL Eosinophils Absolute Manual 0.00 0.00-0.70 10 3/uL Basophils Abs Manual 0.00 0.00-0.10 1 0 3/uL Metamyelocytes Absolute Manual 0.10 Nucleated Red Blood Cells 1 Hypochromasia 1+ Anisocytosis 1+ Microcytosis 1+ Performing Lab: see note ML - [facility] LB Type and Screen Reviewed date:11/15/2024 06:06:55 PM Interpretation: Performing Lab: Notes/Report: The [facility] , Blood Type O Positive Antibody Screen NEGATIVE Troponin I High Sensitivity Reviewed date:11/15/2024 06:06:55 PM Interpretation: Performing Lab: Notes/Report: The [facility] , Troponin I High Sensitivity 5.7 4.0-51.3 pg/mL CUT-OFF POINTS HAVE BEEN ESTABLISHED BASED ON THE FOURTH UNIVERSAL DEFINITION OF MYOCARDIAL INFARCTION. THE UPPER REFERENCE LIMIT (URL) OF TROPONIN, DEFINED THE 99TH PERCENTILE OF cTnI DISTRIBUTION IN A REFERENCE POPULATION, HAS BEEN CONFIRMED THE DECISION THRESHOLD FOR [place] DIAGNOSIS. 99TH PERCENTILE = 51.4 PG/ML NOTE: HIGH-SENSITIVITY TROPONIN ASSAY IS NOT INTENDED TO BE USED IN ISOLATION BUT SHOULD BE INTERPRETED IN CONJUNCTION WITH OTHER DIAGNOSTIC AND CLINICAL INFORMATION. Performing Lab: see note ML - The [facility] LB Box Test Reviewed date:11/17/2024 08:58:56 PM Interpretation: Performing Lab: Notes/Report: URINE CULTURE The [facility] , BOX Test Sent Out URINE BOX Test Reference Lab [facility] BOX Test Date Sent 11/14/24 BOX Test Result SEE SCANNED REPORT Performing Lab: see note ML - The [facility] LB ECG 12 lead Reviewed date:11/18/2024 03:05:02 PM Interpretation: Performing Lab: Notes/Report: Source Facility: [facility] [place] [address] [place] [address] Electrocardiograph Report Signed Patient: CONNIE BRIAN MR#: [id number] : 1955 Acct:[id number] Age/Sex: 69 / F ADM Date: 11/14/24 Loc: MS 217-[address]: Harry Valencia M.D. 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 Signed By: 11/18/24 0734 DD/ 05 TD/TT: Watch Crystal Molder: [place] [address] Electrocardiograph Report Signed Patient: STEPHEN BRIAN MR#: [id number] : 1955 Acct:[id number] Age/Sex: 69 / F ADM Date: 11/14/24 Loc: MS 217-[address]: Miya Valencia M.D. 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 Signed By: 11/18/24 0734 DD/ 190 TD/TT: Watch Crystal Molder: [facility] chest 1V Reviewed date:11/15/2024 06:06:55 PM Interpretation: Performing Lab: Notes/Report: Source Facility: [place] [address] XRay Report Signed Patient: CONNIE BRIAN MR#: [id number] : 1955 Acct:[id number] Age/Sex: 69 / F ADM Date: 11/14/24 Loc: ER Attending Dr: Ordering Physician: Sadie Cortes Date of Service: 11/14/24 Procedure(s): XR chest 1V Accession Number(s): [id number] cc: Harry Valencia M.D.; Sadie Cortes [place] [address] Patient Name: CONNIE BRIAN MRN: [facility]:[id number] date: 1955 Sex: F Assigned Patient Location: ER Current Patient Location: ED.MAIN Accession/Order Number: [id number] Exam Date: 11/14/2024 18:52 Report Date: 11/14/2024 19:36 At the request of: SADIE CORTES Procedure: XR chest 1V SINGLE VIEW CHEST: 11/14/2024 6:52 PM EST CLINICAL HISTORY:weakness COMPARISONS: Portable chest 05/23/2023 TECHNIQUE: Single frontal view of the chest, utilizing portable technique. Portable radiography should be considered a technically compromised study. Strongly consider dedicated PA and lateral chest radiographs, as clinically indicated. FINDINGS: LINES AND TUBES: None appreciated. CARDIAC SILHOUETTE: Cardiac silhouette upper limits normal with some mild central vascular prominence. patient monitor overlies left lower hemithorax. MEDIASTINAL AND HILAR CONTOUR: Within normal limits. PULMONARY PARENCHYMA AND PLEURA: No consolidation, edema, effusion, or pneumothorax. OSSEOUS STRUCTURES:Nothing significant. OTHER COMMENTS:None. XR/XR chest 1V IMPRESSION: Mild central vascular prominence. Borderline heart size. External youth nutritional monitor overlies left lower chest wall. This report was generated with voice recognition software. Effort has been made to ensure accuracy of this report, however, occasional wording errors may persist. Please contact our office with any questions. Electronically authenticated by: HARLEY BERNAL Date: 11/14/2024 19:36 Dictated By: Harley Bernal D.O. Signed By: 11/14/241938 DD/ 35 TD/TT: Watch Crystal Molder: [place] [address] XRay Report Signed Patient: STEPHEN BRIAN MR#: [id number] : 1955 Acct:[id number] Age/Sex: 69 / F ADM Date: 11/14/24 Loc: ER Attending Dr: Ordering Physician: Sadie Cortes Date of Service: 11/14/24 Procedure(s): XR chest 1V Accession Number(s): [id number] cc: Harry Valencia M.D. ; Sadie Cortes [address] [address] Patient Name: CONNIE BRIAN MRN: [facility]:[id number] date: 1955 Sex: F Assigned Patient Location: ER Current Patient Loca tion: ED.MAIN Accession/Order Numb er: [id number] Exam Date: 18:52 Report Date: 11/14/2024 19:36 At the request of: SADIE CORTES Procedure: XR chest 1V SINGLE VIEW CHEST: 11/14/2024 6:52 PM EST CLINICAL HISTORY:weakness COMPARISONS: Portabl e chest 05/23/2023 TECHNIQUE: Single fr ontal view of the chest, utilizing portable technique. Portable radiography should be considered a technically compromised study. Strongly consider dedicated PA and lateral chest radiographs, as clinically indicated. FINDINGS: LINES AND TUBES: Non e appreciated. CARDIAC SILHOUETTE: Cardiac silhouette upper limits normal with some mild central vascular prominence. patient monitor overlies left lower hemithorax. MEDIASTINAL AND CLARENCE R CONTOUR: Within normal limits. PULMONARY PARENCHYMA AND PLEURA: No consolidation, edema, effusion, or pneumothorax. OSSEOUS STRUCTURES:Nothing significant. OTHER COMMENTS:None. X R/XR chest 1V IMPRESSION: Mild central vascula r prominence. Borderline heart size. External cardiac mon itor overlies left lower chest wall. This report was gene rated with voice recognition software. Effort has been made to ensure accuracy o f this report, however, occasional wording errors may persist. Please cont act our office with any questions. Electronically authenticated by: HARLEY BERNAL Date: 11/14/2024 19:36 Dictated By: Harley Bernal D.O. Signed By: 11/14/241938 DD/ 35 TD/TT: Watch Crystal Molder: LACTATE or LACTIC ACID Reviewed date:11/15/2024 06:06:55 PM Interpretation: Performing Lab: Notes/Report: The [facility] , Lactate/Lactic Acid 5.7 0.4-2.0 mmol/L RESULT S CALLED TO DR. ABARCA Performing Lab: see note ML - The [facility] LB Troponin I High Sensitivity Reviewed date:11/15/2024 06:06:55 PM Interpretation: Performing Lab: Notes/Report: The [facility] , Troponin I High Sensitivity 8.4 4.0-51.3 pg/mL CUT-OFF POINTS HAVE BEEN ESTABLISHED BASED ON THE FOURTH UNIVERSAL DEFINITION OF MYOCARDIAL INFARCTION. THE UPPER REFERENCE LIMIT (URL) OF TROPONIN, DEFINED THE 99TH PERCENTILE OF cTnI DISTRIBUTION IN A REFERENCE POPULATION, HAS BEEN CONFIRMED THE DECISION THRESHOLD FOR [place] DIAGNOSIS. 99TH PERCENTILE = 51.4 PG/ML NOTE: HIGH-SENSITIVITY TROPONIN ASSAY IS NOT INTENDED TO BE USED IN ISOLATION BUT SHOULD BE INTERPRETED IN CONJUNCTION WITH OTHER DIAGNOSTIC AND CLINICAL INFORMATION. Performing Lab: see note ML - The [facility] LB ECG 12 lead Reviewed date:11/17/2024 08:58:56 PM Interpretation: Performing Lab: Notes/Report: Source Facility: [place] [address] [place] [address] Electrocardiograph Report Signed Patient: CONNIE BRIAN MR#: [id number] : 1955 Acct:[id number] Age/Sex: 69 / F ADM Date: 11/14/24 Loc: ICU 274-[address]: Harry Valencia M.D. Ordering Physician: Howard Abarca D.O. 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 Signed By: <Electronically signed by Harry Valencia M.D.> 11/16/24 0653 DD/ 47 TD/TT: Watch Crystal Molder: [place] [address] Electrocardiograph Report Signed Patient: STEPHEN BRIAN MR#: [id number] : 1955 Acct:[id number] Age/Sex: 69 / F ADM Date: 11/14/24 Loc: ICU 274-[address]: Miya Valencia M.D. Ordering Physician: Howard Abarca D.O. 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 Signed By: <Electronically signed by Harry Valencia M.D.> 11/16/24 0653 DD/ 47 TD/TT: Watch Crystal Molder: CBC AUTO DIFF Reviewed date:11/15/2024 06:06:54 PM Interpretation: Performing Lab: Notes/Report: The [facility] , White Blood Count 13.3 4.0-11.0 10 3/uL Red Blood Count 3.38 4.20-5.40 10 6/uL Hemoglobin 8.1 12.0-16.0 g/dL Hematocrit 27.2 36.0-48.0 % Mean Corpuscular Volume 80.5 81.0-99.0 fL Mean Corpuscular Hemoglobin 24.0 26.7-34.0 pg Mean Corpuscular HGB Conc 29.8 29.9-35.2 g/dL Red Cell Distribution Width 20.6 11.0-15.0 % Platelet Count 202 150-450 10 3/uL Mean Platelet Volume 11.2 9.5-13.5 fL Performing Lab: see note ML - The [facility] LB CRP Reviewed date:11/15/2024 06:06:54 PM Interpretation: Performing Lab: Notes/Report: Comment off am blood if possible The [facility] , C Reactive Protein 28.28 <=0.50 mg/dL Performing Lab: see note ML - [facility] LB GLUCOSE CSF Reviewed date:11/15/2024 06:06:54 PM Interpretation: Performing Lab: Notes/Report: The [facility] , Glucose CSF 213 40-70 mg/dL Performing Lab: see note ML - [facility] LB HEMOGRAM AND PLATEL Reviewed date:11/15/2024 06:06:54 PM Interpretation: Performing Lab: Notes/Report: The [facility] , Hemoglobin 7.5 12.0-16.0 g/dL Hematocrit 24.8 36.0-48.0 % Performing Lab: see note ML - [facility] LB INFLUENZA A AND B AG Reviewed date:11/15/2024 06:06:54 PM Interpretation: Performing Lab: Notes/Report: The [facility] , Influenza Virus A Antigen Negative Negative for Flu A protein antigen. Infection due to Flu A cannot be ruled out. Flu A antigen in the sample may be below the detection limit of the test. Influenza Virus B Antigen Negative Negative for Flu B protein antigen. Infection due to Flu B cannot be ruled out. Flu B antigen in the sample may be below the detection limit of the test. Performing Lab: see note - [facility] LB IRON AND TIBC Reviewed date:11/15/2024 06:06:54 PM Interpretation: Performing Lab: Notes/Report: The [facility] , Iron 9.0 50.0-170.0 ug/dL Total Iron Binding Capacity 226.0 250.0-450.0 ug/dL Percent Iron Saturation 4.0 Performing Lab: see note ML - [facility] LB LACTATE or LACTIC ACID Reviewed date:11/15/2024 06:06:54 PM Interpretation: Performing Lab: Notes/Report: The [facility] , Lactate/Lactic Acid 4.5 0.4-2.0 mmol/L RESULT S CALLED TO MELECIO GRACE RN Performing Lab: see note ML - [facility] LB MAGNESIUM Reviewed date:11/15/2024 06:06:54 PM Interpretation: Performing Lab: Notes/Report: The [facility] , Magnesium 2.0 1.8-2.4 mg/dL Performing Lab: see note ML - [facility] LB PROF 14(COMP METB) Reviewed date:11/15/2024 06:06:54 PM Interpretation: Performing Lab: Notes/Report: The [facility] , Sodium 132 136-145 mmol/L Potassium 4.7 3.5-5.1 mmol/L Chloride 98 98-107 mmol/L Carbon Dioxide 19.2 21.0-32.0 mmol/L Anion Gap 19.5 Glucose 418 74-106 mg/dL Blood Urea Nitrogen 55.0 7.0-18.0 mg/dL Creatinine 1.92 0.55-1.02 mg/dL Estimated GFR ( Madiha 31 >=60 mL/min/1.73m 2 Estimated GFR (Non- Ana Luisa 26 >=60 mL/min/1.73m 2 BUN Creatinine Ratio 28.6 Calcium 7.7 8.5-10.1 mg/dL Bilirubin Total 1.7 0.2-1.0 mg/dL Aspartate Amino Transferase 45 15-37 U/L Alanine Aminotransferase 21 14-59 U/L Alkaline Phosphatase 200 46-116 U/L Total Protein 5.7 6.4-8.2 g/dL Albumin Level 1.6 3.4-5.0 g/dL Globulin 4.1 Albumin Globulin Ratio 0.4 Performing Lab: see note ML - [facility] LB PROTEIN CSF Reviewed date:11/15/2024 06:06:54 PM Interpretation: Performing Lab: Notes/Report: The [facility] , Total Protein CSF 205 15-45 mg/dL Performing Lab: see note ML - The [facility] LB RSV Reviewed date:11/15/2024 06:06:54 PM Interpretation: Performing Lab: Notes/Report: The [facility] , Respiratory Syncytial Virus Not Detected NOT DETECTE Performing Lab: see note ML - The [facility] LB T4 Reviewed date:11/15/2024 06:06:54 PM Interpretation: Performing Lab: Notes/Report: The [facility] , T4 Thyroxine 5.20 4.80-13.90 ug/dL Performing Lab: see note ML - [facility] LB TSH Reviewed date:11/15/2024 06:06:54 PM Interpretation: Performing Lab: Notes/Report: The [facility] , Thyroid Stimulating Hormone 1.520 0.358-3.740 uIU/mL Performing Lab: see note ML - The [facility] LB Manual Differential Reviewed date:11/15/2024 06:06:54 PM Interpretation: Performing Lab: Notes/Report: The [facility] , Segmented Neutrophils % Manual 84.0 43.0-75.0 Band Neutrophils % 9.0 0-5 % Lymphocytes Percent Manual 3.0 20.5-60.0 % Monocytes Percent Manual 3.0 1.7-12.0 % Eosinophils Percent Manual 0.0 0.9-7.0 % Basophils Percent Manual 0.0 0.2-2.0 % Metamyelocytes % 1.0 Segmented Neut Absolute Manual 11.17 1.4-6.5 10 3/uL Band Neutrophils Absolute 1.2 0.0-0.3 10 3/uL Lymphocytes Absolute Manual 0.39 1.20-3.80 10 3/uL Monocytes Absolute Manual 0.39 0.30-0.80 10 3/uL Eosinophils Absolute Manual 0.00 0.00-0.70 10 3/uL Basophils Abs Manual 0.00 0.00-0.10 1 0 3/uL Metamyelocytes Absolute Manual 0.13 Dohle Bodies 1+ Performing Lab: see note ML - The [facility] LB Reticulocyte Pct Auto Reviewed date:11/15/2024 06:06:54 PM Interpretation: Performing Lab: Notes/Report: The [facility] , Reticulocyte Pct Auto 2.22 0.60-3.10 % Performing Lab: see note ML - The [facility] LB SARS-CoV-2 Ag* Reviewed date:11/15/2024 06:06:54 PM Interpretation: Performing Lab: Notes/Report: The [facility] , SARS-CoV-2 Ag NEGATIVE NEGATIVE This test has not been FDA cleared or approved, but has been authorized by the FDA under an Emergency Use Authorization (EUA) for use by authorized laboratories certified under CLIA that meet the requirements to perform moderate or high complexity testing. This test has been authorized only for the detection of proteins from SARS-CoV-2, not for any other viruses or pathogens. The emergency use of this test is authorized for the duration of the declaration that circumstances exist justifying the authorization of emergency use of in vitro diagnostic tests for detection and/or diagnosis of Covid-19 under section 564(b)(1) of the Act, 21 U.S.C. 360bbb-3(b)(1), unless the declaration is terminated or authorization is revoked sooner. Performing Lab: see note ML - The [facility] LB Box Test Reviewed date:11/18/2024 03:05:02 PM Interpretation: Performing Lab: Notes/Report: CSF TUBE #2 FOR CULTURE The [facility] , BOX Test Sent Out CSF CULTURE BOX Test Reference Lab [facility] BOX Test Date Sent 11/15/24 BOX Test Result SEE SCANNED REPORT Performing Lab: see note ML - The [facility] CA echo doppler complete Reviewed date:11/15/2024 08:00:26 PM Interpretation: Performing Lab: Notes/Report: Source Facility: [place] [address] [place] [address] Cardiology Report Signed Patient: CONNIE BRIAN MR#: [id number] : 1955 Acct:[id number] Age/Sex: 69 / F ADM Date: 11/14/24 Loc: ICU 274-[address]: Harry Valencia M.D. Ordering Physician: Harry Valencia M.D. Date of Service: 11/15/24 Procedure(s): CA echo doppler complete Accession Number(s): [id number] cc: Harry Valencia M.D. Patient Name: CONNIE BRIAN MR#: [id number] : 1955 Exam Date: 11/15/2024 Ordering Doctor: DR Harry Valencia . ECHOCARDIOGRAM REPORT PROCEDURE: CA ECHO DOPPLER COMPLETE INDICATIONS: Dyspnea, elevated BNP, atrial fibrillation, diabetes, sleep apnea, hypertension COMPARISON: None. DESCRIPTION: COMPLETE ECHOCARDIOGRAM Real-time transthoracic echocardiography with 2D, M-mode, spectral and color flow Doppler performed. QUALITY: Technical quality was good. LEFT VENTRICLE: Normal chamber size. Borderline left ventricular hypertrophy. Normal systolic function. LV EF: Normal left ventricular ejection fraction, (>55%). DIASTOLIC: Not adequately assessed due to heart rhythm. ATRIAL SEPTUM: LEFT ATRIUM: Moderate dilatation. RIGHT ATRIUM: Moderate dilatation. RIGHT VENTRICLE: Mild dilatation. Normal systolic function. TRICUSPID VALVE: Normal mobility and thickness. No stenosis with mild regurgitation. Doppler studies reveal severely (>60) elevated right sided pressures. RVSP 72 mmHg MITRAL VALVE: Normal mobility and thickness. No evidence of mitral valve stenosis. There is no mitral annular calcification. AORTIC VALVE: Normal trileaflet appearance. Thickened aortic valve. Normal leaflet mobility. No evidence of aortic valve stenosis. Mild aortic regurgitation. AORTIC ROOT: Normal diameter and appearance. Ascending aorta is normal in size. PULMONIC VALVE: Normal thickness and mobility. No stenosis. Trivial regurgitation. PERICARDIUM: No evidence of pericardial effusion. IVC: IVC is dilated (2.6 cm), does not collapse. PLEURA: CONCLUSION: 1. Normal left ventricular size and systolic function. LVEF is estimated at 55 to 60%. 2. Mildly dilated right ventricle with normal systolic function. 3. Moderate biatrial dilatation. 4. Mild aortic and tricuspid regurgitation. 5. Elevated right-sided pressures. RVSP is 72 mmHg. Adult Echocardiography Procedure Report Left Ventricle LVEDD (3.7 - 5.6 cm): 4.55 cm LVESD (2.2 - 4.0 cm): 2.99 cm LVIVS thickness (0.6 - 1.2 cm): 1.01 cm LVPW thickness (0.5 - 1.0 cm): 0.76 cm LVOT Max Gradient: 2.49 mm[Hg], 3.11 mm[Hg] LVOT Area (cm2): 0.84 m/s Peak Velocity (LVOT): 0.79 m/s, 0.88 m/s LVOT Diameter 2.45 cm Left Atrium LA Volume Index (2D A2C): 41.71 ml/m2 Left Atrium Systolic Dimension: 4.37 cm Mitral Valve Mitral Valve E-Wave Peak Velocity: 1.21 m/s Right Ventricle Aorta AO Root Diam: 3.37 cm Ascending Ao Diam: 2.81 cm Aortic Valve AoV Area (Peak Darryl): 2.88 cm2, 3.05 cm2, 2.74 cm2 Peak Velocity(Antegrade Flow): 1.22 m/s, 1.52 m/s Peak Gradient(Antegrade Flow): 5.96 mm[Hg], 9.25 mm[Hg] Tricuspid Valve Peak Velocity (Regurgitant Flow): 3.76 m/s Pulmonic Valve Peak Velocity: 0.80 m/s Peak Gradient: 3.03 mm[Hg], 1.63 mm[Hg], 2.44 mm[Hg], 3.41 mm[Hg] Right Atrium Right Atrium Systolic Pressure: 86.66 ml, 86.66 ml Dictated by: Rufina Crouch M.D. on 11/15/2024 at 18:31 Approved by: Rufina Crouch M.D. on 11/15/2024 at 18:34 Dictated By: RUFINA CROUCH Signed By: 11/15/241834 DD/ 33 TD/TT: Watch Crystal Molder: [place] [address] Cardiology Report Signed Patient: STEPHEN BRIAN MR#: [id number] : 1955 Acct:[id number] Age/Sex: 69 / F ADM Date: 11/14/24 Loc: ICU 274-[address]: Miya Valencia M.D. Ordering Physician: Harry Valencia M.D. Date of Service: 11/15/24 Procedure(s): CA ech o doppler complete Accession Number(s): [id number] cc: Harry Valencia M.D. Patient Name: CONNIE BRIAN MR#: [id number] : 1955 Exam Date: 11/15/2024 Ordering Doctor: DR Harry Valencia . ECHOCARDIOGRAM REPORT PROCEDURE: CA ECHO DOPPLER COMPLETE INDICATIONS: Dyspnea , elevated BNP, atrial fibrillation, diabetes, sleep apnea, hypertension COMPARISON: None. DESCRIPTION: COMPLET E ECHOCARDIOGRAM Real-time transthoracic echocardiography wit h 2D, M-mode, spectral and color flow Doppler performed. QUALITY: Technical quality was good. LEFT VENTRICLE: Norm al chamber size. Borderline left ventricular hypertrophy. Normal systolic function. LV EF: Normal left ventricular ejection fraction, (>55%). DIASTOLIC: Not adequ ately assessed due to heart rhythm. ATRIAL SEPTUM: LEFT ATRIUM: Moderat e dilatation. RIGHT ATRIUM: Modera te dilatation. RIGHT VENTRICLE: Mil d dilatation. Normal systolic function. TRICUSPID VALVE: Nor mal mobility and thickness. No stenosis with mild regurgitation. Doppl er studies reveal severely (>60) elevated right sided pressures. RVSP 72 mmHg MITRAL VALVE: Normal mobility and thickness. No evidence of mitral valve stenosis. There is no mitral annular calcification. AORTIC VALVE: Normal trileaflet appearance. Thickened aortic valve. Normal leaflet mobil ity. No evidence of aortic valve stenosis. Mild aortic regurgitation. AORTIC ROOT: Normal diameter and appearance. Ascending aorta is normal in size. PULMONIC VALVE: Norm al thickness and mobility. No stenosis. Trivial regurgitation. PERICARDIUM: No evid ence of pericardial effusion. IVC: IVC is dilated (2.6 cm), does not collapse. PLEURA: CONCLUSION: 1. Normal left ventricular size and systolic function. LVEF is estimated at 55 to 60%. 2. Mildly dilated ri ght ventricle with normal systolic function. 3. Moderate biatrial dilatation. 4. Mild aortic and tricuspid regurgitation. 5. Elevated right-si ded pressures. RVSP is 72 mmHg. Adult Echocardiograp hy Procedure Report Left Ventricle LVEDD (3.7 - 5.6 cm) : 4.55 cm LVESD (2.2 - 4.0 cm) : 2.99 cm LVIVS thickness (0.6 - 1.2 cm): 1.01 cm LVPW thickness (0.5 - 1.0 cm): 0.76 cm LVOT Max Gradient: 2 .49 mm[Hg], 3.11 mm[Hg] LVOT Area (cm2): 0.84 m/s Peak Velocity (LVOT) : 0.79 m/s, 0.88 m/s LVOT Diameter 2.45 cm Left Atrium LA Volume Index (2D A2C): 41.71 ml/m2 Left Atrium Systolic Dimension: 4.37 cm Mitral Valve Mitral Valve E-Wave Peak Velocity: 1.21 m/s Right Ventricle Aorta AO Root Diam: 3.37 cm Ascending Ao Diam: 2 .81 cm Aortic Valve AoV Area (Peak Darryl): 2.88 cm2, 3.05 cm2, 2.74 cm2 Peak Velocity(Antegr gifty Flow): 1.22 m/s, 1.52 m/s Peak Gradient(Antegr gifty Flow): 5.96 mm[Hg], 9.25 mm[Hg] Tricuspid Valve Peak Velocity (Regurgitant Flow): 3.76 m/s Pulmonic Valve Peak Velocity: 0.80 m/s Peak Gradient: 3.03 mm[Hg], 1.63 mm[Hg], 2.44 mm[Hg], 3.41 mm[Hg] Right Atrium Right Atrium Systoli c Pressure: 86.66 ml, 86.66 ml Dictated by: Rufina Crouch M.D. on 11/15/2024 at 18:31 Approved by: Rufina Crouch M.D. on 11/15/2024 at 18:34 Dictated By: RUFINA CROUCH Signed By: 11/15/241834 DD/ 33 TD/TT: Watch Crystal Molder: CT soft tissue neck w con Reviewed date:11/15/2024 06:06:55 PM Interpretation: Performing Lab: Notes/Report: Source Facility: [place] [address] CT Scan Report Signed Patient: CONNIE BRIAN MR#: [id number] : 1955 Acct:[id number] Age/Sex: 69 / F ADM Date: 11/14/24 Loc: ICU 274-[address]: Harry Valencia M.D. Ordering Physician: Harry Valencia M.D. Date of Service: 11/15/24 Procedure(s): CT soft tissue neck wo con Accession Number(s): [id number] cc: Harry Valencia M.D. [place] [address] Patient Name: CONNIE BRIAN MRN: [id number] date: 1955 Sex: F Assigned Patient Location: ICU Current Patient Location: ICU Accession/Order Number: [id number] Exam Date: 11/15/2024 08:35 Report Date: 11/15/2024 09:36 At the request of: HARRY VALENCIA Procedure: CT soft tissue neck wo con EXAMINATION: CT soft tissue neck wo con HISTORY: neck swelling COMPARISON: No relevant comparison available. TECHNIQUE: Axial, Coronal, and Sagittal CT images created without IV contrast. Dose reduction techniques were achieved by using automated exposure control and/or adjustment of mA and/or kV according to patient size and/or use of iterative reconstruction technique. FINDINGS: NASOPHARYNX: No asymmetry of the fossae of Rosenmuller and torus tubarius. ORAL CAVITY: No visible mass. OROPHARYNX: No asymmetry of the facial and lingual tonsils. HYPOPHARYNX: No mass or other visible lesion. LARYNX: No mass or asymmetry of the vocal cords. SINUSES: No significant fluid or mucosal thickening. NECK GLADS: No visible abnormality of the parotid, submandibular, and thyroid glands. LYMPH NODES: No pathological-appearing or enlarged lymph nodes. VASCULATURE: No suspicious abnormality. BONES: Multilevel moderate-marked degenerative changes of cervical spine. Small focus of nitrogen versus free air posterior to the spinous process of C6 and C7; nonspecific, possibly air within vessels. No convincing inflammatory changes. OTHER: No additional imaging findings. CT/CT soft tissue neck wo con IMPRESSION: 1. No appreciable mass, fluid collection, or lymphadenopathy. 2. Multilevel moderate-marked degenerative changes of cervical spine resulting in bone encroachment on the central canal and neural foramen. Electronically authenticated by: LON DEL ROSARIO Date: 11/15/2024 09:36 Dictated By: Lon Del Rosario M.D. Signed By: 11/15/24937 DD/ 5 TD/TT: Watch Crystal Molder: [place] [address] CT Scan Report Signed Patient: STEPHEN BRIAN MR#: [id number] : 1955 Acct:[id number] Age/Sex: 69 / F ADM Date: 11/14/24 Loc: ICU 274-[address]: Miya Valencia M.D. Ordering Physician: Harry Valencia M.D. Date of Service: 11/15/24 Procedure(s): CT sof t tissue neck wo con Accession Number(s): [id number] cc: Harry Valencia M.D. [address] [address] Patient Name: CONNIE BRIAN MRN: [id number] date: 1955 Sex: F Assigned Patient Location: ICU Current Patient Loca tion: ICU Accession/Order Numb er: [id number] Exam Date: 08:35 Report Date: 11/15/2024 09:36 At the request of: HARRY VALENCIA Procedure: CT soft t issue neck wo con EXAMINATION: CT soft tissue neck wo con HISTORY: neck swelling COMPARISON: No relev ant comparison available. TECHNIQUE: Axial, Coronal, and Sagittal CT images created without IV contrast. Dose reduction techn iques were achieved by using automated exposure control and/or adjustment of mA and/or kV according to patient size and/or use of iterative reconstruc tion technique. FINDINGS: NASOPHARYNX: No asym metry of the fossae of Rosenmuller and torus tubarius. ORAL CAVITY: No visi ble mass. OROPHARYNX: No asymm etry of the facial and lingual tonsils. HYPOPHARYNX: No mass or other visible lesion. LARYNX: No mass or asymmetry of the vocal cords. SINUSES: No signific ant fluid or mucosal thickening. NECK GLADS: No visib le abnormality of the parotid, submandibular, and thyroid glands. LYMPH NODES: No pathological-appearing or enlarged lymph nodes. VASCULATURE: No suspicious abnormality. BONES: Multilevel moderate-marked degenerative changes of cervical spine. Small focus of nitrogen ve rsus free air posterior to the spinous process of C6 and C7; nonspecific, pos sibly air within vessels. No convincing inflammatory changes. OTHER: No additional imaging findings. C T/CT soft tissue neck wo con IMPRESSION: 1. No appreciable ma ss, fluid collection, or lymphadenopathy. 2. Multilevel moderate-marked degenerative changes of cervical spine resulting in bone encroachment on the central canal and neural foramen. Electronically authenticated by: LON DEL ROSARIO Date: 11/15/2024 09:36 Dictated By: Lon Del Rosario M.D. Signed By: 11/15/24937 DD/ 5 TD/TT: Watch Crystal Molder: FL guided lumbar puncture LP Reviewed date:11/15/2024 06:06:55 PM Interpretation: Performing Lab: Notes/Report: Source Facility: [facility] [place] [address] [place] [address] Fluoroscopy Report Signed Patient: CONNIE BRIAN MR#: [id number] : 1955 Acct:[id number] Age/Sex: 69 / F ADM Date: 11/14/24 Loc: ICU 274-[address]: Harry Valencia M.D. Ordering Physician: Harry Valencia M.D. Date of Service: 11/15/24 Procedure(s): FL guided lumbar puncture LP Accession Number(s): [id number] cc: Harry Valencia M.D. [place] [id number] Patient Name: CONNIE BRIAN MRN: [facility]:[id number] date: 1955 Sex: F Assigned Patient Location: ICU Current Patient Location: ICU Accession/Order Number: [id number] Exam Date: 11/15/2024 13:10 Report Date: 11/15/2024 14:02 At the request of: HARRY VALENCIA Procedure: FL guided lumbar puncture LP EXAMINATION: FL guided lumbar puncture LP HISTORY: ams, leukocytosis COMPARISON: No relevant comparison available. FLUORO DOSE: Cannot calculate. TECHNIQUE: A lumbar puncture was performed in the usual sterile manner after obtaining informed consent. Standard level fluoroscopic mode of operation utilized. FINDINGS: LEVEL: L4-5 NEEDLE: 25-gauge FLUID OBTAINED: 4 separate tubes with approximately 2 cc per tube. Fluid was initially bloody with clearing by the third tube. MEDICATIONS: 1% buffered lidocaine for local anesthesia. COMPLICATIONS: None. FL/FL guided lumbar puncture LP IMPRESSION: Uneventful lumbar puncture. The patient was provided aftercare instructions. Electronically authenticated by: LON DEL ROSARIO Date: 11/15/2024 14:02 Dictated By: Lon Del Rosario M.D. Signed By: 11/15/24 1404 DD/ 1402 TD/TT: Watch Crystal Molder: [place] [address] Fluoroscopy Report Signed Patient: STEPHEN BRIAN MR#: [id number] : 1955 Acct:[id number] Age/Sex: 69 / F ADM Date: 11/14/24 Loc: ICU 274-[address]: Miya Valencia M.D. Ordering Physician: Harry Valencia M.D. Date of Service: 11/15/24 Procedure(s): FL dirk ded lumbar puncture LP Accession Number(s): [id number] cc: Harry Valencia M.D. The [address] [address] Patient Name: CONNIE BRIAN MRN: [id number] date: 1955 Sex: F Assigned Patient Location: ICU Current Patient Loca tion: ICU Accession/Order Numb er: [id number] Exam Date: 13:10 Report Date: 11/15/2024 14:02 At the request of: HARRY VALENCIA Procedure: FL guided lumbar puncture LP EXAMINATION: FL guid ed lumbar puncture LP HISTORY: ams, leukocytosis COMPARISON: No relev ant comparison available. FLUORO DOSE: Cannot calculate. TECHNIQUE: A lumbar puncture was performed in the usual sterile manner after obtaining informed consent. Standard level fluoroscopic mode of operation utilized. FINDINGS: LEVEL: L4-5 NEEDLE: 25-gauge FLUID OBTAINED: 4 separate tubes with approximately 2 cc per tube. Fluid was initially bloody wit h clearing by the third tube. MEDICATIONS: 1% buff ered lidocaine for local anesthesia. COMPLICATIONS: None. F L/FL guided lumbar puncture LP IMPRESSION: Uneventful lumbar puncture. The patient was provided aftercare instructions. Electronically authenticated by: LON DEL ROSARIO Date: 11/15/2024 14:02 Dictated By: Lon Del Rosario M.D. Signed By: 11/15/24 1404 DD/ 1402 TD/TT: Watch Crystal Molder: LACTATE or LACTIC ACID Reviewed date:11/15/2024 06:06:54 PM Interpretation: Performing Lab: Notes/Report: N [facility] , Lactate/Lactic Acid 3.4 0.4-2.0 mmol/L RESULTS CALLED TO CHRISTINE SHANKAR RN @BY Payton Julien at 0921 Performing Lab: see note - The [facility] LB BNP Reviewed date:11/17/2024 08:58:56 PM Interpretation: Performing Lab: Notes/Report: The [facility] , NT Pro B Type Natriuretic Pept 77163.0 <=900.0 pg/mL RESULTS CALLED TO ICU Emerald Dominguez RN @BY Shelton Fernando MLT at 0643 Performing Lab: see note - The [facility] LB CBC AUTO DIFF Reviewed date:11/17/2024 08:58:56 PM Interpretation: Performing Lab: Notes/Report: The [facility] , White Blood Count 11.6 4.0-11.0 10 3/uL Red Blood Count 3.52 4.20-5.40 10 6/uL Hemoglobin 8.4 12.0-16.0 g/dL Hematocrit 27.6 36.0-48.0 % Mean Corpuscular Volume 78.4 81.0-99.0 fL Mean Corpuscular Hemoglobin 23.9 26.7-34.0 pg Mean Corpuscular HGB Conc 30.4 29.9-35.2 g/dL Red Cell Distribution Width 20.4 11.0-15.0 % Platelet Count 185 150-450 10 3/uL Mean Platelet Volume 11.1 9.5-13.5 fL Performing Lab: see note ML - The [facility] LB DIGOXIN Reviewed date:11/17/2024 08:58:56 PM Interpretation: Performing Lab: Notes/Report: The [facility] , Digoxin 0.8 0.9-2.0 ng/mL Performing Lab: see note ML - [facility] LB PROF 14(COMP METB) Reviewed date:11/17/2024 08:58:56 PM Interpretation: Performing Lab: Notes/Report: The [facility] , Sodium 139 136-145 mmol/L Potassium 4.3 3.5-5.1 mmol/L Chloride 106 98-107 mmol/L Carbon Dioxide 21.5 21.0-32.0 mmol/L Anion Gap 15.8 Glucose 364 74-106 mg/dL Blood Urea Nitrogen 43.0 7.0-18.0 mg/dL Creatinine 1.06 0.55-1.02 mg/dL Estimated GFR ( Madiha >60 >=60 mL/min/1.73m 2 Estimated GFR (Non- Ana Luisa 52 >=60 mL/min/1.73m 2 BUN Creatinine Ratio 40.6 Calcium 7.9 8.5-10.1 mg/dL Bilirubin Total 1.3 0.2-1.0 mg/dL Aspartate Amino Transferase 35 15-37 U/L Alanine Aminotransferase 24 14-59 U/L Alkaline Phosphatase 186 46-116 U/L Total Protein 5.7 6.4-8.2 g/dL Albumin Level 1.3 3.4-5.0 g/dL Globulin 4.4 Albumin Globulin Ratio 0.3 Performing Lab: see note - [facility] LB PTT Reviewed date:11/17/2024 08:58:56 PM Interpretation: Performing Lab: Notes/Report: [facility] , Partial Thromboplastin Time 36.7 22.3-36.2 sec Performing Lab: see note - [facility] Prothrombin Time INR Reviewed date:11/17/2024 08:58:56 PM Interpretation: Performing Lab: Notes/Report: The [facility] , Prothrombin Time 13.5 9.0-11.6 sec INR 1.31 DESIRED INR: 2.0-3.0 CONDITIONS NOT LISTED BELOW 2.5-3.5 FOR PROSTHETIC HEART VALVE REPLACEMENT 2.5-3.5 RECURRENT THROMBOSIS Performing Lab: see note [facility] Manual Differential Reviewed date:11/17/2024 08:58:56 PM Interpretation: Performing Lab: Notes/Report: The [facility] , Segmented Neutrophils % Manual 90.0 43.0-75.0 Lymphocytes Percent Manual 9.0 20.5-60.0 % Monocytes Percent Manual 1.0 1.7-12.0 % Eosinophils Percent Manual 0.0 0.9-7.0 % Basophils Percent Manual 0.0 0.2-2.0 % Segmented Neut Absolute Manual 10.44 1.4-6.5 10 3/uL Lymphocytes Absolute Manual 1.04 1.20-3.80 10 3/uL Monocytes Absolute Manual 0.11 0.30-0.80 10 3/uL Eosinophils Absolute Manual 0.00 0.00-0.70 10 3/uL Basophils Abs Manual 0.00 0.00-0.10 1 0 3/uL Performing Lab: see note - [facility] LB Urine Culture, Routine Reviewed date:01/02/2025 09:58:31 PM Interpretation: Performing Lab: Notes/Report: [facility] , Urine Culture, Routine See Below For Report Urine Culture, Routine Organism: Gram negative trang : O:ECMS Isolated O:GNR Isolated Organism: 1.1 Antibiotic Interpretation KAL Status Urine Culture, Routine *ABNORMAL* Urine Culture, Routine Organism: Gram negative trang : O:ECMS Isolated O:GNR Isolated Organism: 1.1 Antibiotic Interpretation KAL Status Urine Culture, Routine Greater than 100, 000 colony forming units per mL Urine Culture, Routine Organism: Gram negative trang : O:ECMS Isolated O:GNR Isolated Organism: 1.1 Antibiotic Interpretation KAL Status Urine Culture, Routine Gram negative trang Urine Culture, Routine Organism: Gram negative trang : O:ECMS Isolated O:GNR Isolated Organism: 1.1 Antibiotic Interpretation KAL Status Urine Culture, Routine Organism: Escheri davida coli, : Urine Culture, Routine Organism: Gram negative trang : O:ECMS Isolated O:GNR Isolated Organism: 1.1 Antibiotic Interpretation KAL Status Urine Culture, Routine *ABNORMAL* Urine Culture, Routine Organism: Gram negative trang : O:ECMS Isolated O:GNR Isolated Organism: 1.1 Antibiotic Interpretation KAL Status Urine Culture, Routine Cefazolin with an KAL <=16 predicts susceptibility to Urine Culture, Routine Organism: Gram negative trang : O:ECMS Isolated O:GNR Isolated Organism: 1.1 Antibiotic Interpretation KAL Status Urine Culture, Routine the oral agents c efaclor, cefdinir, cefpodoxime, Urine Culture, Routine Organism: Gram negative trang : O:ECMS Isolated O:GNR Isolated Organism: 1.1 Antibiotic Interpretation KAL Status Urine Culture, Routine cefprozil, cefuro ney, cephalexin, and loracarbef when Urine Culture, Routine Organism: Gram negative trang : O:ECMS Isolated O:GNR Isolated Organism: 1.1 Antibiotic Interpretation KAL Status Urine Culture, Routine used for therapy of uncomplicated urinary tract Urine Culture, Routine Organism: Gram negative trang : O:ECMS Isolated O:GNR Isolated Organism: 1.1 Antibiotic Interpretation KAL Status Urine Culture, Routine infections due to E. coli, Klebsiella pneumoniae, and Urine Culture, Routine Organism: Gram negative trang : O:ECMS Isolated O:GNR Isolated Organism: 1.1 Antibiotic Interpretation KAL Status Urine Culture, Routine Proteus mirabilis. Urine Culture, Routine Organism: Gram negative trang : O:ECMS Isolated O:GNR Isolated Organism: 1.1 Antibiotic Interpretation KAL Status Urine Culture, Routine Greater than 100, 000 colony forming units per mL Urine Culture, Routine Organism: Gram negative trang : O:ECMS Isolated O:GNR Isolated Organism: 1.1 Antibiotic Interpretation KAL Status Urine Culture, Routine Escherichia coli, Urine Culture, Routine Organism: Gram negative trang : O:ECMS Isolated O:GNR Isolated Organism: 1.1 Antibiotic Interpretation KAL Status Urine Culture, Routine See Below For Report Urine Culture, Routine Organism: Gram negative trang : O:ECMS Isolated O:GNR Isolated Organism: 1.1 Antibiotic Interpretation KAL Status Urine Culture, Routine See Below For Report Urine Culture, Routine Organism: Gram negative trang : O:ECMS Isolated O:GNR Isolated Organism: 1.1 Antibiotic Interpretation KAL Status Urine Culture, Routine Performed at: [facility] Urine Culture, Routine Organism: Gram negative trang : O:ECMS Isolated O:GNR Isolated Organism: 1.1 Antibiotic Interpretation KAL Status Urine Culture, Routine [address] [place], [place] [id number] Urine Culture, Routine Organism: Gram negative trang : O:ECMS Isolated O:GNR Isolated Organism: 1.1 Antibiotic Interpretation KAL Status Urine Culture, Routine Petroleum Production Engineer: Alvaro Garcias PhD, Phone: [phone] Urine Culture, Routine Organism: Gram negative trang : O:ECMS Isolated O:GNR Isolated Organism: 1.1 Antibiotic Interpretation KAL Status Urine Culture, Routine See Below For Report Urine Culture, Routine Organism: Gram negative trang : O:ECMS Isolated O:GNR Isolated Organism: 1.1 Antibiotic Interpretation KAL Status Urine Culture, Routine AMOXICILLIN/CLAVU LANIC ACID S F Urine Culture, Routine Organism: Gram negative trang : O:ECMS Isolated O:GNR Isolated Organism: 1.1 Antibiotic Interpretation KAL Status Urine Culture, Routine Ampicillin R F Urine Culture, Routine Organism: Gram negative trang : O:ECMS Isolated O:GNR Isolated Organism: 1.1 Antibiotic Interpretation KAL Status Urine Culture, Routine Cefazolin S F Urine Culture, Routine Organism: Gram negative trang : O:ECMS Isolated O:GNR Isolated Organism: 1.1 Antibiotic Interpretation KAL Status Urine Culture, Routine Cefepime S F Urine Culture, Routine Organism: Gram negative trang : O:ECMS Isolated O:GNR Isolated Organism: 1.1 Antibiotic Interpretation KAL Status Urine Culture, Routine Cefoxitin S F Urine Culture, Routine Organism: Gram negative trang : O:ECMS Isolated O:GNR Isolated Organism: 1.1 Antibiotic Interpretation KAL Status Urine Culture, Routine Cefpodoxime S F Urine Culture, Routine Organism: Gram negative trang : O:ECMS Isolated O:GNR Isolated Organism: 1.1 Antibiotic Interpretation KAL Status Urine Culture, Routine Ceftriaxone S F Urine Culture, Routine Organism: Gram negative trang : O:ECMS Isolated O:GNR Isolated Organism: 1.1 Antibiotic Interpretation KAL Status Urine Culture, Routine Ciprofloxacin R F Urine Culture, Routine Organism: Gram negative trang : O:ECMS Isolated O:GNR Isolated Organism: 1.1 Antibiotic Interpretation KAL Status Urine Culture, Routine Ertapenem S F Urine Culture, Routine Organism: Gram negative trang : O:ECMS Isolated O:GNR Isolated Organism: 1.1 Antibiotic Interpretation KAL Status Urine Culture, Routine Gentamicin S F Urine Culture, Routine Organism: Gram negative trang : O:ECMS Isolated O:GNR Isolated Organism: 1.1 Antibiotic Interpretation KAL Status Urine Culture, Routine Levofloxacin R F Urine Culture, Routine Organism: Gram negative trang : O:ECMS Isolated O:GNR Isolated Organism: 1.1 Antibiotic Interpretation KAL Status Urine Culture, Routine Meropenem S F Urine Culture, Routine Organism: Gram negative trang : O:ECMS Isolated O:GNR Isolated Organism: 1.1 Antibiotic Interpretation KAL Status Urine Culture, Routine Nitrofurantoin S F Urine Culture, Routine Organism: Gram negative trang : O:ECMS Isolated O:GNR Isolated Organism: 1.1 Antibiotic Interpretation KAL Status Urine Culture, Routine Tetracycline S F Urine Culture, Routine Organism: Gram negative trang : O:ECMS Isolated O:GNR Isolated Organism: 1.1 Antibiotic Interpretation KAL Status Urine Culture, Routine Tobramycin S F Urine Culture, Routine Organism: Gram negative trang : O:ECMS Isolated O:GNR Isolated Organism: 1.1 Antibiotic Interpretation KAL Status Urine Culture, Routine Trimethoprim/Sulf amethoxa zole S F Urine Culture, Routine Organism: Gram negative trang : O:ECMS Isolated O:GNR Isolated Organism: 1.1 Antibiotic Interpretation KAL Status Urine Culture, Routine Piperacillin/Tazo bactam S F Urine Culture, Routine Organism: Gram negative trang : O:ECMS Isolated O:GNR Isolated Organism: 1.1 Antibiotic Interpretation KAL Status Performing Lab: see note LC - [facility] LB SEE REPORT - Food Tester Id information not found for OBX-specific assistant producer legend MAGNESIUM Reviewed date:12/30/2024 11:28:24 AM Interpretation: Performing Lab: Notes/Report: [facility] , Magnesium 2.2 1.8-2.4 mg/dL Performing Lab: see note ML - [facility] LB HEMOGRAM AND PLATEL Reviewed date:12/30/2024 05:22:56 PM Interpretation: Performing Lab: Notes/Report: [facility] , Hemoglobin 9.1 12.0-16.0 g/dL Hematocrit 30.1 36.0-48.0 % Performing Lab: see note ML - [facility] LB US right upper quadrant Reviewed date:02/03/2025 03:26:35 PM Interpretation: Performing Lab: Notes/Report: Source Facility: [facility] [place] [address] [place] [address] Ultrasound Report Signed Patient: CONNIE BRIAN MR#: [id number] : 1955 Acct:[id number] Age/Sex: 69 / F ADM Date: 02/01/25 Loc: US Attending Dr: DAMIAN MCCARTHY Ordering Physician: DAMIAN MCCARTHY Date of Service: 02/01/25 Procedure(s): US right upper quadrant Accession Number(s): [id number] cc: Harry Valencia M.D.; DAMIAN MCCARTHY [place] [address] Patient Name: CONNIE BRIAN MRN: [id number] date: 1955 Sex: F Assigned Patient Location: Current Patient Location: US Accession/Order Number: [id number] Exam Date: 02/01/2025 09:29 Report Date: 02/01/2025 09:38 At the request of: DAMIAN MCCARTHY Procedure: US right upper quadrant LIMITED RIGHT UPPER QUADRANT ABDOMINAL ULTRASOUND CLINICAL HISTORY: Cirrhosis Of Liver With Ascites. Prior cholecystectomy. COMPARISON: CT 12/28/2024 The gallbladder is surgically absent. No intra- or extrahepatic biliary dilatation is evident. The common duct measures 4 - 5 mm. There is coarsened hepatic echotexture and slightly nodular contour. No focal intrahepatic masses are seen. There is appropriate hepatopetal flow within the main portal vein. The. Visualized portions of the pancreas show no significant sonographic abnormality. Cursory evaluation of the right kidney reveals no hydronephrosis. There is a trace amount of perihepatic ascites. US/US right upper quadrant IMPRESSION: TRACE AMOUNT OF ASCITES. HEPATIC FINDINGS COMPATIBLE WITH REPORTED CIRRHOSIS. Impression dictated by: Lola Contreras M.D.02/01/2025 9:38 AM Dictation Location: [place] [address] Electronically authenticated by: [id number] Y Date: 02/01/2025 09:38 Dictated By: Lola Contreras M.D. Signed By: 02/01/25940 DD/ 7 TD/TT: Watch Crystal Molder: [place] [address] Ultrasound Report Signed Patient: STEPHEN BRIAN MR#: [id number] : 1955 Acct:[id number] Age/Sex: 69 / F ADM Date: 02/01/25 Loc: US Attending Dr: DAMIAN MCCARTHY Ordering Physician: DAMIAN MCCARTHY Date of Service: 02/01/25 Procedure(s): US rig ht upper quadrant Accession Number(s): [id number] cc: Harry Valencia M.D. ; DAMIAN MCCARTHY [place] [address] Patient Name: CONNIE BRIAN MRN: [id number] date: 1955 Sex: F Assigned Patient Location: Current Patient Loca tion: US Accession/Order Numb er: [id number] Exam Date: 02/01/2025 09:29 Report Date: 02/01/2025 09:38 At the request of: DAMIAN MCCARTHY Procedure: US right upper quadrant LIMITED RIGHT UPPER QUADRANT ABDOMINAL ULTRASOUND CLINICAL HISTORY: Cirrhosis Of Liver With Ascites. Prior cholecystectomy. COMPARISON: CT 12/28/2024 The gallbladder is surgically absent. No intra- or extrahepatic biliary dilatation is eviden t. The common duct measures 4 - 5 mm. There is coarsened hepatic echotexture and slightly nodular contour. No focal intrahepatic masses are seen. There is appropriate hepatopetal flow within the main portal vein. The. Visualized port ions of the pancreas show no significant sonographic abnormality. Cursory evaluation of the right kidney reveals no hydronephrosis. There is a trace haley unt of perihepatic ascites. U S/US right upper quadrant IMPRESSION: TRACE AMOUNT OF ASCITES. HEPATIC FINDINGS COMPATIBLE WITH REPORTED CIRRHOSIS. Impression dictated by: Lola Contreras M.D.02/01/2025 9:38 AM Dictation Location: [place] [address] Electronically authenticated by: [id number] Y Date: 02/01/2025 09:38 Dictated By: Lola Contreras M.D. Signed By: 02/01/25940 DD/ 7 TD/TT: Watch Crystal Molder: [place] Reviewed date:03/06/2025 09:53:01 AM Interpretation: Performing Lab: Notes/Report: [facility] , Ammonia 42 11-32 umol/L RESULTS CALLED TO RAINA BLACKMON RN at 1854 Performing Lab: see note ML - [facility] LB CBC AUTO DIFF Reviewed date:03/05/2025 04:11:43 PM Interpretation: Performing Lab: Notes/Report: The [facility] , White Blood Count 4.1 4.0-11.0 10 3/uL Red Blood Count 2.69 4.20-5.40 10 6/uL Hemoglobin 5.8 12.0-16.0 g/dL RESULTS LOREDO D TO PERCY MARTINO RN Hematocrit 21.6 36.0-48.0 % RESULTS CALLED TO PERCY MARTINO RN Mean Corpuscular Volume 80.3 81.0-99.0 fL Mean Corpuscular Hemoglobin 21.6 26.7-34.0 pg HYPOCHROMASIA 2+ Mean Corpuscular HGB Conc 26.9 29.9-35.2 g/dL Red Cell Distribution Width 17.8 11.0-15.0 % Platelet Count 172 150-450 10 3/uL Mean Platelet Volume 11.3 9.5-13.5 fL Neutrophils Percent Auto 48.2 43.0-75.0 % Lymphocytes Percent Auto 37.4 20.5-60.0 % Monocytes Percent Auto 9.8 1.7-12.0 % Eosinophils Percent Auto 3.7 0.9-7.0 % Basophils Percent Auto 0.7 0.2-2.0 % Immature Granulocytes Pct Auto 0.2 0.0-0.5 % Neutrophils Absolute Auto 2.0 1.4-6.5 10 3/uL Lymphocytes Absolute Auto 1.5 1.2-3.8 10 3/uL Monocytes Absolute Auto 0.4 0.3-0.8 10 3/uL Eosinophils Absolute Auto 0.2 0.0-0.7 10 3/uL Basophils Absolute Auto 0.0 0.0-0.1 10 3/uL Immature Granulocytes Abs Auto 0.01 0.00-0.03 10 3/uL Performing Lab: see note - [facility] LB LACTATE or LACTIC ACID Reviewed date:03/05/2025 04:11:43 PM Interpretation: Performing Lab: Notes/Report: The [facility] , Lactate/Lactic Acid 4.5 0.4-2.0 mmol/L RESULT S CALLED TO VERONIKA SALTER RN Performing Lab: see note [facility] LB MAGNESIUM Reviewed date:03/05/2025 04:11:43 PM Interpretation: Performing Lab: Notes/Report: The [facility] , Magnesium 1.8 1.8-2.4 mg/dL Performing Lab: see note [facility] LB PTT Reviewed date:03/05/2025 01:33:59 PM Interpretation: Performing Lab: Notes/Report: The [facility] , Partial Thromboplastin Time 31.5 22.3-36.2 sec Performing Lab: see note [facility] LB UA RANDOM W or MICROSCOPIC Reviewed date:03/06/2025 09:53:01 AM Interpretation: Performing Lab: Notes/Report: The [facility] , Color Urine YELLOW YELLOW Clarity Urine CLEAR CLEAR Specific [place] Urine 1.025 1.005-1.025 pH Urine 6.0 5.0-9.0 Protein Urine 30 NEG/TRACE mg/dL Glucose Urine UA NEGATIVE NEGATIVE mg/dL Bilirubin Urine NEGATIVE NEGATIVE Ketones Urine TRACE NEGATIVE mg/dL Blood Urine NEGATIVE NEGATIVE Nitrite Urine NEGATIVE NEGATIVE Urobilinogen Urine 0.2 0.2-1.0 EU/dL Leukocyte Esterase Urine NEGATIVE NEGATIVE WBC Urine 2-5 NONE SEEN #/HPF RBC Urine 0-2 0-2 #/HPF Bacteria Urine LARGE NONE SEEN #/HPF Mucus Urine NONE SEEN NONE SEEN Squamous Epithelial Cell Urine MODERATE NONE/RARE #/LPF Crystals Seen? None Seen None Seen #/HPF Cast Seen? NONE SEEN NONE SEEN #/LPF Urine Culture Indicated ALREADY ORDERED Performing Lab: see note - [facility] LB Prothrombin Time INR Reviewed date:03/05/2025 01:33:59 PM Interpretation: Performing Lab: Notes/Report: The [facility] , Prothrombin Time 13.1 9.0-11.6 sec INR 1.26 DESIRED INR: 2.0-3.0 CONDITIONS NOT LISTED BELOW 2.5-3.5 FOR PROSTHETIC HEART VALVE REPLACEMENT 2.5-3.5 RECURRENT THROMBOSIS Performing Lab: see note ML - [facility] LB Troponin I High Sensitivity Reviewed date:03/05/2025 04:11:43 PM Interpretation: Performing Lab: Notes/Report: The [facility] , Troponin I High Sensitivity 10.9 4.0-51.3 pg/mL CUT-OFF POINTS HAVE BEEN ESTABLISHED BASED ON THE FOURTH UNIVERSAL DEFINITION OF MYOCARDIAL INFARCTION. THE UPPER REFERENCE LIMIT (URL) OF TROPONIN, DEFINED THE 99TH PERCENTILE OF cTnI DISTRIBUTION IN A REFERENCE POPULATION, HAS BEEN CONFIRMED THE DECISION THRESHOLD FOR [place] DIAGNOSIS. 99TH PERCENTILE = 51.4 PG/ML NOTE: HIGH-SENSITIVITY TROPONIN ASSAY IS NOT INTENDED TO BE USED IN ISOLATION BUT SHOULD BE INTERPRETED IN CONJUNCTION WITH OTHER DIAGNOSTIC AND CLINICAL INFORMATION. Performing Lab: see note ML - [facility] LB LACTATE or LACTIC ACID Reviewed date:03/06/2025 09:53:01 AM Interpretation: Performing Lab: Notes/Report: Y The [facility] , Lactate/Lactic Acid 4.5 0.4-2.0 mmol/L RESULT S CALLED TO RAINA BLACKMON RN at 1854 Performing Lab: see note ML - [facility] LB Occult Blood* Reviewed date:03/05/2025 05:54:06 PM Interpretation: Performing Lab: Notes/Report: The [facility] , Occult Blood Positive Performing Lab: see note ML - [facility] LB LACTATE or LACTIC ACID Reviewed date:03/06/2025 01:58:57 PM Interpretation: Performing Lab: Notes/Report: The [facility] , Lactate/Lactic Acid 3.8 0.4-2.0 mmol/L RESULT S CALLED TO emerald dominguez rn Performing Lab: see note ML - [facility] LB Type and Screen Reviewed date:03/07/2025 09:11:26 PM Interpretation: Performing Lab: Notes/Report: The [facility] , Blood Type O Positive Antibody Screen POSITIVE Packed Red Blood Cells Reviewed date:03/07/2025 09:11:26 PM Interpretation: Performing Lab: Notes/Report: The [facility] , Packed Red Blood Cells [id number] OP RC TRANSFUSED 03/06/25 1724 [id number] ON RC TRANSFUSED 03/06/25 0728 [id number] OP RC TRANSFUSED 03/06/25 0524 [id number] OP RC TRANSFUSED 03/06/25 2116 CBC no Diff (Hemogram) Reviewed date:03/06/2025 01:58:57 PM Interpretation: Performing Lab: Notes/Report: The [facility] , White Blood Count 4.3 4.0-11.0 10 3/uL Red Blood Count 3.07 4.20-5.40 10 6/uL Hemoglobin 7.2 12.0-16.0 g/dL Hematocrit 24.2 36.0-48.0 % Mean Corpuscular Volume 78.8 81.0-99.0 fL Mean Corpuscular Hemoglobin 23.5 26.7-34.0 pg Mean Corpuscular HGB Conc 29.8 29.9-35.2 g/dL Red Cell Distribution Width 17.8 11.0-15.0 % Platelet Count 161 150-450 10 3/uL Mean Platelet Volume 10.8 9.5-13.5 fL Performing Lab: see note - [facility] LB LACTATE or LACTIC ACID Reviewed date:03/06/2025 08:03:40 PM Interpretation: Performing Lab: Notes/Report: The [facility] , Lactate/Lactic Acid 3.2 0.4-2.0 mmol/L RESULT S CALLED TO EMERALD DOMINGUEZ RN Performing Lab: see note ML - [facility] LB PROF CHEM 8 (BAS METB) Reviewed date:03/05/2025 04:11:43 PM Interpretation: Performing Lab: Notes/Report: The [facility] , Sodium 142 136-145 mmol/L Potassium 4.2 3.5-5.1 mmol/L Chloride 106 98-107 mmol/L Carbon Dioxide 24.8 21.0-32.0 mmol/L Anion Gap 15.4 Glucose 195 74-106 mg/dL Blood Urea Nitrogen 25.0 7.0-18.0 mg/dL Creatinine 1.08 0.55-1.02 mg/dL Estimated GFR ( Madiha >60 >=60 mL/min/1.73m 2 Estimated GFR (Non- Ana Luisa 50 >=60 mL/min/1.73m 2 BUN Creatinine Ratio 23.1 Calcium 8.5 8.5-10.1 mg/dL Performing Lab: see note ML - [facility] LB CBC AUTO DIFF Reviewed date:03/07/2025 09:11:26 PM Interpretation: Performing Lab: Notes/Report: The [facility] , White Blood Count 4.4 4.0-11.0 10 3/uL Red Blood Count 3.83 4.20-5.40 10 6/uL Hemoglobin 9.1 12.0-16.0 g/dL Hematocrit 30.0 36.0-48.0 % Mean Corpuscular Volume 78.3 81.0-99.0 fL Mean Corpuscular Hemoglobin 23.8 26.7-34.0 pg Mean Corpuscular HGB Conc 30.3 29.9-35.2 g/dL Red Cell Distribution Width 17.4 11.0-15.0 % Platelet Count 156 150-450 10 3/uL Mean Platelet Volume 10.5 9.5-13.5 fL Neutrophils Percent Auto 48.4 43.0-75.0 % Lymphocytes Percent Auto 34.9 20.5-60.0 % Monocytes Percent Auto 11.0 1.7-12.0 % Eosinophils Percent Auto 4.5 0.9-7.0 % Basophils Percent Auto 0.7 0.2-2.0 % Immature Granulocytes Pct Auto 0.5 0.0-0.5 % Neutrophils Absolute Auto 2.2 1.4-6.5 10 3/uL Lymphocytes Absolute Auto 1.6 1.2-3.8 10 3/uL Monocytes Absolute Auto 0.5 0.3-0.8 10 3/uL Eosinophils Absolute Auto 0.2 0.0-0.7 10 3/uL Basophils Absolute Auto 0.0 0.0-0.1 10 3/uL Immature Granulocytes Abs Auto 0.02 0.00-0.03 10 3/uL Performing Lab: see note ML - [facility] LB PROF 14(COMP METB) Reviewed date:03/05/2025 04:11:43 PM Interpretation: Performing Lab: Notes/Report: The [facility] , Sodium 144 136-145 mmol/L Potassium 4.2 3.5-5.1 mmol/L Chloride 107 98-107 mmol/L Carbon Dioxide 24.0 21.0-32.0 mmol/L Anion Gap 17.2 Glucose 179 74-106 mg/dL Blood Urea Nitrogen 26.0 7.0-18.0 mg/dL Creatinine 1.02 0.55-1.02 mg/dL Estimated GFR ( Madiha >60 >=60 mL/min/1.73m 2 Estimated GFR (Non- Ana Luisa 54 >=60 mL/min/1.73m 2 BUN Creatinine Ratio 25.5 Calcium 8.4 8.5-10.1 mg/dL Bilirubin Total 1.0 0.2-1.0 mg/dL Aspartate Amino Transferase 28 15-37 U/L Alanine Aminotransferase 20 14-59 U/L Alkaline Phosphatase 117 46-116 U/L Total Protein 6.7 6.4-8.2 g/dL Albumin Level 2.7 3.4-5.0 g/dL Globulin 4.0 Albumin Globulin Ratio 0.7 Performing Lab: see note ML - [facility] LB LIVER PROFILE Reviewed date:03/05/2025 04:11:43 PM Interpretation: Performing Lab: Notes/Report: The [facility] , Bilirubin Total 1.0 0.2-1.0 mg/dL Bilirubin Direct 0.4 0.0-0.2 mg/dL Aspartate Amino Transferase 30 15-37 U/L Alanine Aminotransferase 21 14-59 U/L Alkaline Phosphatase 123 46-116 U/L Total Protein 6.9 6.4-8.2 g/dL Albumin Level 2.8 3.4-5.0 g/dL Globulin 4.1 Albumin Globulin Ratio 0.7 Performing Lab: see note ML - [facility] LB PROF 14(COMP METB) Reviewed date:03/11/2025 08:05:20 PM Interpretation: Performing Lab: Notes/Report: The [facility] , Sodium 140 136-145 mmol/L Potassium 4.5 3.5-5.1 mmol/L Chloride 105 98-107 mmol/L Carbon Dioxide 27.4 21.0-32.0 mmol/L Anion Gap 12.1 Glucose 220 74-106 mg/dL Blood Urea Nitrogen 20.0 7.0-18.0 mg/dL Creatinine 0.99 0.55-1.02 mg/dL Estimated GFR ( Madiha >60 >=60 mL/min/1.73m 2 Estimated GFR (Non- Ana Luisa 56 >=60 mL/min/1.73m 2 BUN Creatinine Ratio 20.2 Calcium 8.7 8.5-10.1 mg/dL Bilirubin Total 1.0 0.2-1.0 mg/dL Aspartate Amino Transferase 38 15-37 U/L Alanine Aminotransferase 30 14-59 U/L Alkaline Phosphatase 117 46-116 U/L Total Protein 6.8 6.4-8.2 g/dL Albumin Level 2.7 3.4-5.0 g/dL Globulin 4.1 Albumin Globulin Ratio 0.7 Performing Lab: see note ML - [facility] US abdomen limited Reviewed date:03/18/2025 07:29:56 PM Interpretation: Performing Lab: Notes/Report: Source Facility: [place] [address] Ultrasound Report Signed Patient: CONNIE BRIAN MR#: [id number] : 1955 Acct:[id number] Age/Sex: 69 / F ADM Date: 03/16/25 Loc: US Attending Dr: Harry Valencia M.D. Ordering Physician: Harry Valencia M.D. Date of Service: 03/16/25 Procedure(s): US abdomen limited Accession Number(s): [id number] cc: Harry Valencia M.D. [place] [address] Patient Name: CONNIE BRIAN MRN: [id number] date: 1955 Sex: F Assigned Patient Location: Current Patient Location: Accession/Order Number: [id number] Exam Date: 03/18/2025 12:36 Report Date: 03/18/2025 12:37 At the request of: HARRY VALENCIA MD Procedure: US abdomen limited Ascites ULTRASOUND: CLINICAL HISTORY: CIRRHOSIS K74.60 COMPARISON: None TECHNIQUE: Grayscale and color Doppler images of the quadrant of the abdomen were obtained. FINDINGS: Imaging of the 4 quadrants of the abdomen demonstrates small amount of ascites present largest pocket seen within the right lower quadrant. US/US abdomen limited IMPRESSION: SMALL AMOUNT OF ASCITES, LARGEST POCKET RIGHT LOWER QUADRANT.. Impression dictated by: Duke Cooper Jr., D.O. 03/18/2025 12:37 PM Dictation Location: [place] [address] Electronically authenticated by: [id number] Y Date: 03/18/2025 12:37 Dictated By: Duke Cooper M.D. Signed By: 03/18/25 1239 DD/ 1237 TD/TT: Watch Crystal Molder: [place] [address] Ultrasound Report Signed Patient: STEPHEN BRIAN MR#: [id number] : 1955 Acct:[id number] Age/Sex: 69 / F ADM Date: 03/16/25 Loc: US Attending Dr: Miya Valencia M.D. Ordering Physician: Harry Valencia M.D. Date of Service: 03/16/25 Procedure(s): US abd omen limited Accession Number(s): [id number] cc: Harry Valencia M.D. [place] [id number] Patient Name: CONNIE BRIAN MRN: [id number] date: 1955 Sex: F Assigned Patient Location: US Current Patient Location: Accession/Order Numb er: [id number] Exam Date: 03/18/2025 12:36 Report Date: 03/18/2025 12:37 At the request of: HARRY VALENCIA MD Procedure: US abdome n limited Ascites ULTRASOUND: CLINICAL HISTORY: CIRRHOSIS K74.60 COMPARISON: None TECHNIQUE: Grayscale and color Doppler images of the quadrant of the abdomen were obtained. FINDINGS: Imaging of the 4 quadrants of the abdomen demonstrates small amount of ascites present largest pock et seen within the right lower quadrant. U S/US abdomen limited IMPRESSION: SMALL AMOUNT OF ASCI DANICA, LARGEST POCKET RIGHT LOWER QUADRANT.. Impression dictated by: Duke Cooper Jr., D.O. 03/18/2025 12:37 PM Dictation Location: [place] [address] Electronically authenticated by: [id number] Y Date: 03/18/2025 12:37 Dictated By: Duke Cooper M.D. Signed By: 03/18/25 1239 DD/ 1237 TD/TT: Watch Crystal Molder: US abdomen complete Reviewed date:03/18/2025 07:29:56 PM Interpretation: Performing Lab: Notes/Report: Source Facility: [place] [address] Ultrasound Report Signed Patient: CONNIE BRIAN MR#: [id number] : 1955 Acct:[id number] Age/Sex: 69 / F ADM Date: 03/16/25 Loc: US Attending Dr: Harry Valencia M.D. Ordering Physician: Harry Valencia M.D. Date of Service: 03/16/25 Procedure(s): US abdomen complete Accession Number(s): [id number] cc: Harry Valencia M.D. [place] [address] Patient Name: CONNIE BRIAN MRN: [id number] date: 1955 Sex: F Assigned Patient Location: Current Patient Location: Accession/Order Number: [id number] Exam Date: 03/18/2025 12:33 Report Date: 03/18/2025 12:35 At the request of: HARRY VALENCIA MD Procedure: US abdomen complete LIMITED ABDOMINAL ULTRASOUND: CLINICAL HISTORY: CIRRHOSIS K74.60 COMPARISON: None TECHNIQUE: Grayscale and color Doppler images of the right upper quadrant organs were obtained. FINDINGS: Pancreas: Visualized portions appear unremarkable. Liver: Cirrhotic liver without focal mass. Small amount of ascites. Hepatopedal flow is seen within the portal vein. Gallbladder: Removed. CBD: 5.9 mm Kidneys: No Hydronephrosis left renal cyst. Spleen: Splenomegaly measuring 14.6 cm. Visualized aorta appears normal in caliber. Visualized IVC appears patent. US/US abdomen complete IMPRESSION: CIRRHOTIC LIVER WITHOUT MASS. SMALL AMOUNT OF ASCITES. SPLENOMEGALY.. Impression dictated by: Duke Cooper Jr., D.O. 03/18/2025 12:35 PM Dictation Location: [place] [address] Electronically authenticated by: [id number] Y Date: 03/18/2025 12:35 Dictated By: Duke Cooper M.D. Signed By: 03/18/25 1238 DD/ 1235 TD/TT: Watch Crystal Molder: [place] [address] Ultrasound Report Signed Patient: STEPHEN BRIAN MR#: [id number] : 1955 Acct:[id number] Age/Sex: 69 / F ADM Date: 03/16/25 Loc: US Attending Dr: Miya Valencia M.D. Ordering Physician: Harry Valencia M.D. Date of Service: 03/16/25 Procedure(s): US abd omen complete Accession Number(s): [id number] cc: Harry Valencia M.D. [place] [address] Patient Name: CONNIE BRIAN MRN: [id number] date: 1955 Sex: F Assigned Patient Location: Current Patient Location: Accession/Order Numb er: [id number] Exam Date: 03/18/2025 12:33 Report Date: 03/18/2025 12:35 At the request of: HARRY VALENCIA MD Procedure: US abdome n complete LIMITED ABDOMINAL ULTRASOUND: CLINICAL HISTORY: CIRRHOSIS K74.60 COMPARISON: None TECHNIQUE: Grayscale and color Doppler images of the right upper quadrant organs were obtained. FINDINGS: Pancreas: Visualized portions appear unremarkable. Liver: Cirrhotic sebastián er without focal mass. Small amount of ascites. Hepatopedal flow is seen within the portal vein. Gallbladder: Removed. CBD: 5.9 mm Kidneys: No Hydronephrosis left renal cyst. Spleen: Splenomegaly measuring 14.6 cm. Visualized aorta navid ears normal in caliber. Visualized IVC appears patent. U S/US abdomen complete IMPRESSION: CIRRHOTIC LIVER WITH OUT MASS. SMALL AMOUNT OF ASCITES. SPLENOMEGALY.. Impression dictated by: Duke Cooper Jr., D.O. 03/18/2025 12:35 PM Dictation Location: [place] [address] Electronically authenticated by: [id number] Y Date: 03/18/2025 12:35 Dictated By: Duke Cooper M.D. Signed By: 03/18/25 1238 DD/ 1235 TD/TT: Watch Crystal Molder: CBC AUTO DIFF Reviewed date:03/25/2025 03:00:45 PM Interpretation: Performing Lab: Notes/Report: [facility] , White Blood Count 4.2 4.0-11.0 10 3/uL Red Blood Count 3.44 4.20-5.40 10 6/uL HYPOCHROMIA 2+ Hemoglobin 8.3 12.0-16.0 g/dL Hematocrit 28.8 36.0-48.0 % Mean Corpuscular Volume 83.7 81.0-99.0 fL Mean Corpuscular Hemoglobin 24.1 26.7-34.0 pg Mean Corpuscular HGB Conc 28.8 29.9-35.2 g/dL Red Cell Distribution Width 20.8 11.0-15.0 % Platelet Count 137 150-450 10 3/uL Mean Platelet Volume 10.7 9.5-13.5 fL Neutrophils Percent Auto 54.0 43.0-75.0 % Lymphocytes Percent Auto 28.7 20.5-60.0 % Monocytes Percent Auto 10.6 1.7-12.0 % Eosinophils Percent Auto 5.5 0.9-7.0 % Basophils Percent Auto 1.0 0.2-2.0 % Immature Granulocytes Pct Auto 0.2 0.0-0.5 % Neutrophils Absolute Auto 2.2 1.4-6.5 10 3/uL Lymphocytes Absolute Auto 1.2 1.2-3.8 10 3/uL Monocytes Absolute Auto 0.4 0.3-0.8 10 3/uL Eosinophils Absolute Auto 0.2 0.0-0.7 10 3/uL Basophils Absolute Auto 0.0 0.0-0.1 10 3/uL Immature Granulocytes Abs Auto 0.01 0.00-0.03 10 3/uL Performing Lab: see note ML - [facility] LB CBC AUTO DIFF Reviewed date:04/10/2025 12:57:01 PM Interpretation: Performing Lab: Notes/Report: The [facility] , White Blood Count 4.8 4.0-11.0 10 3/uL Red Blood Count 3.30 4.20-5.40 10 6/uL 1+ HYPO Hemoglobin 7.8 12.0-16.0 g/dL Hematocrit 27.6 36.0-48.0 % Mean Corpuscular Volume 83.6 81.0-99.0 fL Mean Corpuscular Hemoglobin 23.6 26.7-34.0 pg Mean Corpuscular HGB Conc 28.3 29.9-35.2 g/dL Red Cell Distribution Width 20.5 11.0-15.0 % Platelet Count 175 150-450 10 3/uL Mean Platelet Volume 10.6 9.5-13.5 fL Neutrophils Percent Auto 57.2 43.0-75.0 % Lymphocytes Percent Auto 27.7 20.5-60.0 % Monocytes Percent Auto 8.4 1.7-12.0 % Eosinophils Percent Auto 5.7 0.9-7.0 % Basophils Percent Auto 0.8 0.2-2.0 % Immature Granulocytes Pct Auto 0.2 0.0-0.5 % Neutrophils Absolute Auto 2.7 1.4-6.5 10 3/uL Lymphocytes Absolute Auto 1.3 1.2-3.8 10 3/uL Monocytes Absolute Auto 0.4 0.3-0.8 10 3/uL Eosinophils Absolute Auto 0.3 0.0-0.7 10 3/uL Basophils Absolute Auto 0.0 0.0-0.1 10 3/uL Immature Granulocytes Abs Auto 0.01 0.00-0.03 10 3/uL Performing Lab: see note ML - The [facility] LB LIPASE Reviewed date:03/05/2025 04:11:43 PM Interpretation: Performing Lab: Notes/Report: The [facility] , Lipase 23.0 16.0-77.0 U/L Performing Lab: see note ML - The [facility] LB BNP Reviewed date:03/05/2025 04:11:43 PM Interpretation: Performing Lab: Notes/Report: The [facility] , NT Pro B Type Natriuretic Pept 507.0 <=900.0 pg/mL Performing Lab: see note ML - The [facility] LB ANTIBODY ID PANEL Reviewed date:03/07/2025 09:11:26 PM Interpretation: Performing Lab: Notes/Report: The [facility] , Antibody Identification K PROF 14(COMP METB) Reviewed date:12/31/2024 07:17:30 PM Interpretation: Performing Lab: Notes/Report: The [facility] , Sodium 139 136-145 mmol/L Potassium 5.3 3.5-5.1 mmol/L Chloride 102 98-107 mmol/L Carbon Dioxide 26.7 21.0-32.0 mmol/L Anion Gap 15.6 Glucose 172 74-106 mg/dL Blood Urea Nitrogen 60.0 7.0-18.0 mg/dL Creatinine 2.02 0.55-1.02 mg/dL Estimated GFR ( Madiha 30 >=60 mL/min/1.73m 2 Estimated GFR (Non- Ana Luisa 24 >=60 mL/min/1.73m 2 BUN Creatinine Ratio 29.7 Calcium 8.6 8.5-10.1 mg/dL Bilirubin Total 1.6 0.2-1.0 mg/dL Aspartate Amino Transferase 20 15-37 U/L Alanine Aminotransferase 10 14-59 U/L Alkaline Phosphatase 99 46-116 U/L Total Protein 6.7 6.4-8.2 g/dL Albumin Level 2.4 3.4-5.0 g/dL Globulin 4.3 Albumin Globulin Ratio 0.6 Performing Lab: see note ML - The [facility] LB CBC AUTO DIFF Reviewed date:12/31/2024 07:17:30 PM Interpretation: Performing Lab: Notes/Report: The [facility] , White Blood Count 6.4 4.0-11.0 10 3/uL Red Blood Count 3.58 4.20-5.40 10 6/uL Hemoglobin 9.0 12.0-16.0 g/dL Hematocrit 30.2 36.0-48.0 % Mean Corpuscular Volume 84.4 81.0-99.0 fL Mean Corpuscular Hemoglobin 25.1 26.7-34.0 pg Mean Corpuscular HGB Conc 29.8 29.9-35.2 g/dL Red Cell Distribution Width 20.0 11.0-15.0 % Platelet Count 184 150-450 10 3/uL Mean Platelet Volume 11.7 9.5-13.5 fL Neutrophils Percent Auto 55.3 43.0-75.0 % Lymphocytes Percent Auto 36.5 20.5-60.0 % Monocytes Percent Auto 6.7 1.7-12.0 % Eosinophils Percent Auto 0.6 0.9-7.0 % Basophils Percent Auto 0.6 0.2-2.0 % Immature Granulocytes Pct Auto 0.3 0.0-0.5 % Neutrophils Absolute Auto 3.5 1.4-6.5 10 3/uL Lymphocytes Absolute Auto 2.3 1.2-3.8 10 3/uL Monocytes Absolute Auto 0.4 0.3-0.8 10 3/uL Eosinophils Absolute Auto 0.0 0.0-0.7 10 3/uL Basophils Absolute Auto 0.0 0.0-0.1 10 3/uL Immature Granulocytes Abs Auto 0.02 0.00-0.03 10 3/uL Performing Lab: see note ML - [facility] LB BNP Reviewed date:12/31/2024 07:17:30 PM Interpretation: Performing Lab: Notes/Report: The [facility] , NT Pro B Type Natriuretic Pept 936.0 <=900.0 pg/mL Performing Lab: see note - [facility] LB Occult Blood* Reviewed date:12/30/2024 11:28:24 AM Interpretation: Performing Lab: Notes/Report: The [facility] , Occult Blood Positive Performing Lab: see note [facility] LB PROF 14(COMP METB) Reviewed date:12/30/2024 11:28:24 AM Interpretation: Performing Lab: Notes/Report: The [facility] , Sodium 141 136-145 mmol/L Potassium 4.8 3.5-5.1 mmol/L Chloride 105 98-107 mmol/L Carbon Dioxide 25.9 21.0-32.0 mmol/L Anion Gap 14.9 Glucose 214 74-106 mg/dL Blood Urea Nitrogen 46.0 7.0-18.0 mg/dL Creatinine 1.79 0.55-1.02 mg/dL Estimated GFR ( Madiha 34 >=60 mL/min/1.73m 2 Estimated GFR (Non- Ana Luisa 28 >=60 mL/min/1.73m 2 BUN Creatinine Ratio 25.7 Calcium 8.7 8.5-10.1 mg/dL Bilirubin Total 1.7 0.2-1.0 mg/dL Aspartate Amino Transferase 18 15-37 U/L Alanine Aminotransferase 9 14-59 U/L Alkaline Phosphatase 97 46-116 U/L Total Protein 6.3 6.4-8.2 g/dL Albumin Level 2.3 3.4-5.0 g/dL Globulin 4.0 Albumin Globulin Ratio 0.6 Performing Lab: see note ML - [facility] LB CBC AUTO DIFF Reviewed date:12/30/2024 11:28:24 AM Interpretation: Performing Lab: Notes/Report: The [facility] , White Blood Count 6.9 4.0-11.0 10 3/uL Red Blood Count 3.13 4.20-5.40 10 6/uL Hemoglobin 7.8 12.0-16.0 g/dL Hematocrit 26.0 36.0-48.0 % Mean Corpuscular Volume 83.1 81.0-99.0 fL Mean Corpuscular Hemoglobin 24.9 26.7-34.0 pg Mean Corpuscular HGB Conc 30.0 29.9-35.2 g/dL Red Cell Distribution Width 19.2 11.0-15.0 % Platelet Count 186 150-450 10 3/uL Mean Platelet Volume 11.7 9.5-13.5 fL Neutrophils Percent Auto 61.9 43.0-75.0 % Lymphocytes Percent Auto 27.5 20.5-60.0 % Monocytes Percent Auto 9.0 1.7-12.0 % Eosinophils Percent Auto 0.3 0.9-7.0 % Basophils Percent Auto 0.9 0.2-2.0 % Immature Granulocytes Pct Auto 0.4 0.0-0.5 % Neutrophils Absolute Auto 4.3 1.4-6.5 10 3/uL Lymphocytes Absolute Auto 1.9 1.2-3.8 10 3/uL Monocytes Absolute Auto 0.6 0.3-0.8 10 3/uL Eosinophils Absolute Auto 0.0 0.0-0.7 10 3/uL Basophils Absolute Auto 0.1 0.0-0.1 10 3/uL Immature Granulocytes Abs Auto 0.03 0.00-0.03 10 3/uL Performing Lab: see note ML - [facility] LB BNP Reviewed date:12/30/2024 11:28:24 AM Interpretation: Performing Lab: Notes/Report: The [facility] , NT Pro B Type Natriuretic Pept 1124.0 <=900.0 pg/mL Performing Lab: see note - [facility] LB CBC no Diff (Hemogram) Reviewed date:12/30/2024 11:28:24 AM Interpretation: Performing Lab: Notes/Report: The [facility] , White Blood Count 7.1 4.0-11.0 10 3/uL Red Blood Count 3.37 4.20-5.40 10 6/uL Hemoglobin 8.5 12.0-16.0 g/dL Hematocrit 28.0 36.0-48.0 % Mean Corpuscular Volume 83.1 81.0-99.0 fL Mean Corpuscular Hemoglobin 25.2 26.7-34.0 pg Mean Corpuscular HGB Conc 30.4 29.9-35.2 g/dL Red Cell Distribution Width 18.6 11.0-15.0 % Platelet Count 208 150-450 10 3/uL Mean Platelet Volume 11.0 9.5-13.5 fL Performing Lab: see note - [facility] LB PROF 14(COMP METB) Reviewed date:12/30/2024 11:28:24 AM Interpretation: Performing Lab: Notes/Report: The [facility] , Sodium 140 136-145 mmol/L Potassium 4.7 3.5-5.1 mmol/L Chloride 106 98-107 mmol/L Carbon Dioxide 27.1 21.0-32.0 mmol/L Anion Gap 11.6 Glucose 215 74-106 mg/dL Blood Urea Nitrogen 43.0 7.0-18.0 mg/dL Creatinine 1.37 0.55-1.02 mg/dL Estimated GFR ( Madiha 46 >=60 mL/min/1.73m 2 Estimated GFR (Non- Ana Luisa 38 >=60 mL/min/1.73m 2 BUN Creatinine Ratio 31.4 Calcium 8.5 8.5-10.1 mg/dL Bilirubin Total 2.1 0.2-1.0 mg/dL Aspartate Amino Transferase 15 15-37 U/L Alanine Aminotransferase 11 14-59 U/L Alkaline Phosphatase 103 46-116 U/L Total Protein 6.6 6.4-8.2 g/dL Albumin Level 2.2 3.4-5.0 g/dL Globulin 4.4 Albumin Globulin Ratio 0.5 Performing Lab: see note ML - [facility] LB CBC AUTO DIFF Reviewed date:12/30/2024 11:28:24 AM Interpretation: Performing Lab: Notes/Report: The [facility] , White Blood Count 5.9 4.0-11.0 10 3/uL Red Blood Count 2.67 4.20-5.40 10 6/uL Hemoglobin 6.6 12.0-16.0 g/dL RESULTS CALLED TO Melecio Grace RN @BY [place] at 0610 Hematocrit 22.0 36.0-48.0 % RESULTS CALLED TO Melecio Grace RN @BY [place] at 0610 Mean Corpuscular Volume 82.4 81.0-99.0 fL Mean Corpuscular Hemoglobin 24.7 26.7-34.0 pg Mean Corpuscular HGB Conc 30.0 29.9-35.2 g/dL Red Cell Distribution Width 18.8 11.0-15.0 % Platelet Count 199 150-450 10 3/uL Mean Platelet Volume 11.3 9.5-13.5 fL Neutrophils Percent Auto 61.0 43.0-75.0 % Lymphocytes Percent Auto 28.7 20.5-60.0 % Monocytes Percent Auto 9.1 1.7-12.0 % Eosinophils Percent Auto 0.2 0.9-7.0 % Basophils Percent Auto 0.7 0.2-2.0 % Immature Granulocytes Pct Auto 0.3 0.0-0.5 % Neutrophils Absolute Auto 3.6 1.4-6.5 10 3/uL Lymphocytes Absolute Auto 1.7 1.2-3.8 10 3/uL Monocytes Absolute Auto 0.5 0.3-0.8 10 3/uL Eosinophils Absolute Auto 0.0 0.0-0.7 10 3/uL Basophils Absolute Auto 0.0 0.0-0.1 10 3/uL Immature Granulocytes Abs Auto 0.02 0.00-0.03 10 3/uL Performing Lab: see note ML - The [facility] LB BNP Reviewed date:12/30/2024 11:28:24 AM Interpretation: Performing Lab: Notes/Report: The [facility] , NT Pro B Type Natriuretic Pept 772.0 <=900.0 pg/mL Performing Lab: see note ML - The [facility] LB PROF CHEM 8 (BAS METB) Reviewed date:12/30/2024 11:28:24 AM Interpretation: Performing Lab: Notes/Report: The [facility] , Sodium 142 136-145 mmol/L Potassium 4.9 3.5-5.1 mmol/L Chloride 104 98-107 mmol/L Carbon Dioxide 28.2 21.0-32.0 mmol/L Anion Gap 14.7 Glucose 211 74-106 mg/dL Blood Urea Nitrogen 46.0 7.0-18.0 mg/dL Creatinine 1.59 0.55-1.02 mg/dL Estimated GFR ( Madiha 39 >=60 mL/min/1.73m 2 Estimated GFR (Non- Ana Luisa 32 >=60 mL/min/1.73m 2 BUN Creatinine Ratio 28.9 Calcium 8.7 8.5-10.1 mg/dL Performing Lab: see note ML - [facility] LB CBC AUTO DIFF Reviewed date:12/30/2024 11:28:24 AM Interpretation: Performing Lab: Notes/Report: The [facility] , White Blood Count 6.3 4.0-11.0 10 3/uL Red Blood Count 3.08 4.20-5.40 10 6/uL Hemoglobin 7.7 12.0-16.0 g/dL Hematocrit 26.2 36.0-48.0 % Mean Corpuscular Volume 85.1 81.0-99.0 fL Mean Corpuscular Hemoglobin 25.0 26.7-34.0 pg Mean Corpuscular HGB Conc 29.4 29.9-35.2 g/dL Red Cell Distribution Width 19.0 11.0-15.0 % Platelet Count 225 150-450 10 3/uL Mean Platelet Volume 11.1 9.5-13.5 fL Neutrophils Percent Auto 57.0 43.0-75.0 % Lymphocytes Percent Auto 32.3 20.5-60.0 % Monocytes Percent Auto 9.6 1.7-12.0 % Eosinophils Percent Auto 0.2 0.9-7.0 % Basophils Percent Auto 0.6 0.2-2.0 % Immature Granulocytes Pct Auto 0.3 0.0-0.5 % Neutrophils Absolute Auto 3.6 1.4-6.5 10 3/uL Lymphocytes Absolute Auto 2.0 1.2-3.8 10 3/uL Monocytes Absolute Auto 0.6 0.3-0.8 10 3/uL Eosinophils Absolute Auto 0.0 0.0-0.7 10 3/uL Basophils Absolute Auto 0.0 0.0-0.1 10 3/uL Immature Granulocytes Abs Auto 0.02 0.00-0.03 10 3/uL Performing Lab: see note ML - [facility] LB ECG 12 lead Reviewed date:12/30/2024 11:28:24 AM Interpretation: Performing Lab: Notes/Report: Source Facility: [facility] [place] [address] [place] [address] Electrocardiograph Report Signed Patient: CONNIE BRIAN MR#: [id number] : 1955 Acct:[id number] Age/Sex: 69 / F ADM Date: 12/28/24 Loc: MS 215- Attending Dr: Harry Valencia M.D. Ordering Physician: Harry Valencia M.D. 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 Signed By: 12/30/241106 DD/ 23 TD/TT: Watch Crystal Molder: [place] [address] Electrocardiograph Report Signed Patient: STEPHEN BRIAN MR#: [id number] : 1955 Acct:[id number] Age/Sex: 69 / F ADM Date: 12/28/24 Loc: MS 215-[address]: Miya Valencia M.D. Ordering Physician: Harry Valencia M.D. 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1955 Joe estemichael By: HARRY VALENCIA Order Number: [id number] Reading MD: HARRY VALENCIA Measurements Intervals [place] Rate: 56 P: 15 NC: 208 QRS: 3 QRSD: 90 T: 207 QT: 399 QTc: 387 Interpretive Statements SINUS BRADYCARDIA WI TH FREQUENT VENTRICULAR PREMATURE COMPLEXES IN A BIGEMINAL PATTERN NONSPECIFIC ST T-WAV E ABNORMALITY WARNING: DATA QUALIT Y MAY AFFECT INTERPRETATION Compared to ECG 12/28/2024 11:26:15 Ventricular prematur e complex(es) now present T-wave abnormality n ow present Electronically Erinn d On 12-30-2024 11:06:53 EST by HARRY VALENCIA Dictated By: Ezekiel Valencia M.D. Signed By: 12/30/24 1107 DD/ 23 TD/TT: Watch Crystal Molder: CT abdomen pelvis wo con Reviewed date:12/30/2024 11:28:24 AM Interpretation: Performing Lab: Notes/Report: Source Facility: [place] [address] [place] [address] CT Scan Report Signed Patient: CONNIE BRIAN MR#: [id number] : 1955 Acct:[id number] Age/Sex: 69 / F ADM Date: 12/28/24 Loc: ER Attending Dr: Ordering Physician: Vicente Salomon Date of Service: 12/28/24 Procedure(s): CT abdomen pelvis wo con Accession Number(s): [id number] cc: Harry Valencia M.D. The [place] [id number] Patient Name: CONNIE BRIAN MRN: [id number] date: 1955 Sex: F Assigned Patient Location: ER Current Patient Location: ER Accession/Order Number: [id number] Exam Date: 12/28/2024 12:17 Report Date: 12/28/2024 13:28 At the request of: VICENTE SALOMON Procedure: CT abdomen pelvis wo con EXAMINATION: CT chest wo con, CT abdomen pelvis wo con HISTORY: abn chest xray COMPARISON: No relevant comparison available. TECHNIQUE: Axial, Coronal, and Sagittal CT images were obtained without IV contrast material. Dose reduction techniques were achieved by using automated exposure control and/or adjustment of mA and/or kV according to patient size and/or use of iterative reconstruction technique. FINDINGS: LUNGS: Partial consolidation of both lower lobes, left greater than right with presence of air bronchograms PLEURA: 4.2 cm right and 6.4 cm left pleural effusions VASCULATURE: No abnormal prominence. CLARENCE: No mass or adenopathy. MEDIASTINUM: No mass or adenopathy. CARDIAC: No enlargement or pericardial effusion Coronary arteries: Moderate calcifications CHEST WALL: No mass or axillary adenopathy. LIVER: Mildly nodular liver contour. No focal mass BILIARY: Surgical clips from cholecystectomy PANCREAS: Diffuse pancreatic atrophy SPLEEN: No enlargement or focal lesion. ADRENALS: No mass or enlargement. KIDNEYS: No mass, obstruction, or calcification. BOWEL/MESENTERY: Moderate ascites. Nonobstructive bowel gas pattern. AORTA/VASCULAR: No aortic aneurysm. Mild to moderate atherosclerosis RETROPERITONEUM: No mass or adenopathy. LYMPH NODES: No adenopathy. URINARY BLADDER: No visible focal wall thickening, lesion, or calculus. PELVIC ORGANS: Hysterectomy ABDOMINAL WALL: No mass or hernia. BONES: No bony lesion or fracture. OTHER: Negative. CT/CT abdomen pelvis wo con IMPRESSION: Bilateral pleural effusions with partial basilar consolidation, left greater than right. Nodular liver contour suggesting cirrhosis with moderate ascites Electronically authenticated by: MAISHA ALBRIGHT Date: 12/28/2024 13:28 Dictated By: Maisha Albright M.D. Signed By: 12/28/24 1331 DD/ 1328 TD/TT: Watch Crystal Molder: The [address] [address] [address] Scan Report Signed Patient: STEPHEN BRIAN MR#: [id number] : 1955 Acct:[id number] Age/Sex: 69 / F ADM Date: 12/28/24 Loc: ER Attending Dr: Ordering Physician: Vicente Salomon Date of Service: 12/28/24 Procedure(s): CT abd omen pelvis wo con Accession Number(s): [id number] cc: Harry Valencia M.D. The [address] [address] Patient Name: CONNIE BRIAN MRN: [id number] date: 1955 Sex: F Assigned Patient Location: ER Current Patient Loca tion: ER Accession/Order Numb er: [id number] Exam Date: 12/28/2024 12:17 Report Date: 12/28/2024 13:28 At the request of: VICENTE SALOMON Procedure: CT abdome n pelvis wo con EXAMINATION: CT ches t wo con, CT abdomen pelvis wo con HISTORY: abn chest xray COMPARISON: No relev ant comparison available. TECHNIQUE: Axial, Coronal, and Sagittal CT images were obtained without IV contrast material. D ose reduction techniques were achieved by using automated exposure control and /or adjustment of mA and/or kV according to patient size and/or use of iterat garrett reconstruction technique. FINDINGS: LUNGS: Partial consolidation of both lower lobes, left greater than right with presence of air bronchograms PLEURA: 4.2 cm right and 6.4 cm left pleural effusions VASCULATURE: No abno rmal prominence. CLARENCE: No mass or adenopathy. MEDIASTINUM: No mass or adenopathy. CARDIAC: No enlargem ent or pericardial effusion Coronary arteries: Moderate calcifications CHEST WALL: No mass or axillary adenopathy. LIVER: Mildly nodula r liver contour. No focal mass BILIARY: Surgical cl ips from cholecystectomy PANCREAS: Diffuse pancreatic atrophy SPLEEN: No enlargeme nt or focal lesion. ADRENALS: No mass or enlargement. KIDNEYS: No mass, obstruction, or calcification. BOWEL/MESENTERY: Mod erate ascites. Nonobstructive bowel gas pattern. AORTA/VASCULAR: No a ortic aneurysm. Mild to moderate atherosclerosis RETROPERITONEUM: No mass or adenopathy. LYMPH NODES: No adenopathy. URINARY BLADDER: No visible focal wall thickening, lesion, or calculus. PELVIC ORGANS: Hysterectomy ABDOMINAL WALL: No m ass or hernia. BONES: No bony lesio n or fracture. OTHER: Negative. C T/CT abdomen pelvis wo con IMPRESSION: Bilateral pleural effusions with partial basilar consolidation, left greater than right. Nodular liver contou r suggesting cirrhosis with moderate ascites Electronically authenticated by: MAISHA ALBRIGHT Date: 12/28/2024 13:28 Dictated By: Prasanna Albright M.D. Signed By: 12/28/24 1331 DD/ 1328 TD/TT: Watch Crystal Molder: CT chest wo con Reviewed date:12/30/2024 11:28:24 AM Interpretation: Performing Lab: Notes/Report: Source Facility: [place] [address] CT Scan Report Signed Patient: CONNIE BRIAN MR#: [id number] : 1955 Acct:[id number] Age/Sex: 69 / F ADM Date: 12/28/24 Loc: ER Attending Dr: Ordering Physician: Vicente Salomon Date of Service: 12/28/24 Procedure(s): CT chest wo con Accession Number(s): [id number] cc: Harry Valencia M.D. [place] [address] Patient Name: CONNIE BRIAN MRN: [id number] date: 1955 Sex: F Assigned Patient Location: ER Current Patient Location: ER Accession/Order Number: [id number] Exam Date: 12/28/2024 12:17 Report Date: 12/28/2024 13:28 At the request of: VICENTE SALOMON Procedure: CT chest wo con EXAMINATION: CT chest wo con, CT abdomen pelvis wo con HISTORY: abn chest xray COMPARISON: No relevant comparison available. TECHNIQUE: Axial, Coronal, and Sagittal CT images were obtained without IV contrast material. Dose reduction techniques were achieved by using automated exposure control and/or adjustment of mA and/or kV according to patient size and/or use of iterative reconstruction technique. FINDINGS: LUNGS: Partial consolidation of both lower lobes, left greater than right with presence of air bronchograms PLEURA: 4.2 cm right and 6.4 cm left pleural effusions VASCULATURE: No abnormal prominence. CLARENCE: No mass or adenopathy. MEDIASTINUM: No mass or adenopathy. CARDIAC: No enlargement or pericardial effusion Coronary arteries: Moderate calcifications CHEST WALL: No mass or axillary adenopathy. LIVER: Mildly nodular liver contour. No focal mass BILIARY: Surgical clips from cholecystectomy PANCREAS: Diffuse pancreatic atrophy SPLEEN: No enlargement or focal lesion. ADRENALS: No mass or enlargement. KIDNEYS: No mass, obstruction, or calcification. BOWEL/MESENTERY: Moderate ascites. Nonobstructive bowel gas pattern. AORTA/VASCULAR: No aortic aneurysm. Mild to moderate atherosclerosis RETROPERITONEUM: No mass or adenopathy. LYMPH NODES: No adenopathy. URINARY BLADDER: No visible focal wall thickening, lesion, or calculus. PELVIC ORGANS: Hysterectomy ABDOMINAL WALL: No mass or hernia. BONES: No bony lesion or fracture. OTHER: Negative. CT/CT chest wo con IMPRESSION: Bilateral pleural effusions with partial basilar consolidation, left greater than right. Nodular liver contour suggesting cirrhosis with moderate ascites Electronically authenticated by: MAISHA ALBRIGHT Date: 12/28/2024 13:28 Dictated By: Maisha Albright M.D. Signed By: 12/28/24 1331 DD/ 1328 TD/TT: Watch Crystal Molder: [place] [address] CT Scan Report Signed Patient: STEPHEN BRIAN MR#: [id number] : 1955 Acct:[id number] Age/Sex: 69 / F ADM Date: 12/28/24 Loc: ER Attending Dr: Ordering Physician: Vicente Salomon Date of Service: 12/28/24 Procedure(s): CT isa st wo con Accession Number(s): [id number] cc: Harry Valencia M.D. [place] [id number] Patient Name: CONNIE BRIAN MRN: [facility]:[id number] date: 1955 Sex: F Assigned Patient Location: ER Current Patient Loca tion: ER Accession/Order Numb er: [id number] Exam Date: 12/28/2024 12:17 Report Date: 12/28/2024 13:28 At the request of: VICENTE SALOMON Procedure: CT chest wo con EXAMINATION: CT ches t wo con, CT abdomen pelvis wo con HISTORY: abn chest xray COMPARISON: No relev ant comparison available. TECHNIQUE: Axial, Coronal, and Sagittal CT images were obtained without IV contrast material. D ose reduction techniques were achieved by using automated exposure control and /or adjustment of mA and/or kV according to patient size and/or use of iterat garrett reconstruction technique. FINDINGS: LUNGS: Partial consolidation of both lower lobes, left greater than right with presence of air bronchograms PLEURA: 4.2 cm right and 6.4 cm left pleural effusions VASCULATURE: No abno rmal prominence. CLARENCE: No mass or adenopathy. MEDIASTINUM: No mass or adenopathy. CARDIAC: No enlargem ent or pericardial effusion Coronary arteries: Moderate calcifications CHEST WALL: No mass or axillary adenopathy. LIVER: Mildly nodula r liver contour. No focal mass BILIARY: Surgical cl ips from cholecystectomy PANCREAS: Diffuse pancreatic atrophy SPLEEN: No enlargeme nt or focal lesion. ADRENALS: No mass or enlargement. KIDNEYS: No mass, obstruction, or calcification. BOWEL/MESENTERY: Mod erate ascites. Nonobstructive bowel gas pattern. AORTA/VASCULAR: No a ortic aneurysm. Mild to moderate atherosclerosis RETROPERITONEUM: No mass or adenopathy. LYMPH NODES: No adenopathy. URINARY BLADDER: No visible focal wall thickening, lesion, or calculus. PELVIC ORGANS: Hysterectomy ABDOMINAL WALL: No m ass or hernia. BONES: No bony lesio n or fracture. OTHER: Negative. C T/CT chest wo con IMPRESSION: Bilateral pleural effusions with partial basilar consolidation, left greater than right. Nodular liver contou r suggesting cirrhosis with moderate ascites Electronically authenticated by: MAISHA ALBRIGHT Date: 12/28/2024 13:28 Dictated By: Prasanna Albright M.D. Signed By: 12/28/24 1331 DD/ 1328 TD/TT: Watch Crystal Molder: ECG 12 lead Reviewed date:12/30/2024 11:28:24 AM Interpretation: Performing Lab: Notes/Report: Source Facility: [place] [address] [place] [address] Electrocardiograph Report Signed Patient: CONNIE BRIAN MR#: [id number] : 1955 Acct:[id number] Age/Sex: 69 / F ADM Date: 12/28/24 Loc: [place] 215-[address]: Harry Valencia M.D. 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 Signed By: 12/30/24 1106 DD/ 1126 TD/TT: Watch Crystal Molder: [place] [address] Electrocardiograph Report Signed Patient: STEPHEN BRIAN MR#: [id number] : 1955 Acct:[id number] Age/Sex: 69 / F ADM Date: 12/28/24 Loc: [place] 215-[address]: Miya Valencia M.D. 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 Signed By: 12/30/24 1106 DD/ 1126 TD/TT: Watch Crystal Molder: Troponin I High Sensitivity Reviewed date:12/30/2024 11:28:24 AM Interpretation: Performing Lab: Notes/Report: The [facility] , Troponin I High Sensitivity 11.3 4.0-51.3 pg/mL CUT-OFF POINTS HAVE BEEN ESTABLISHED BASED ON THE FOURTH UNIVERSAL DEFINITION OF MYOCARDIAL INFARCTION. THE UPPER REFERENCE LIMIT (URL) OF TROPONIN, DEFINED THE 99TH PERCENTILE OF cTnI DISTRIBUTION IN A REFERENCE POPULATION, HAS BEEN CONFIRMED THE DECISION THRESHOLD FOR [place] DIAGNOSIS. 99TH PERCENTILE = 51.4 PG/ML NOTE: HIGH-SENSITIVITY TROPONIN ASSAY IS NOT INTENDED TO BE USED IN ISOLATION BUT SHOULD BE INTERPRETED IN CONJUNCTION WITH OTHER DIAGNOSTIC AND CLINICAL INFORMATION. Performing Lab: see note ML - The [facility] LB UA RANDOM W or MICROSCOPIC Reviewed date:12/30/2024 11:28:24 AM Interpretation: Performing Lab: Notes/Report: The [facility] , Color Urine LT. YELLOW YELLOW Clarity Urine CLEAR CLEAR Specific [place] Urine 1.010 1.005-1.025 pH Urine 7.0 5.0-9.0 Protein Urine NEGATIVE NEG/TRACE mg/dL Glucose Urine UA NEGATIVE NEGATIVE mg/dL Bilirubin Urine NEGATIVE NEGATIVE Ketones Urine NEGATIVE NEGATIVE mg/dL Blood Urine NEGATIVE NEGATIVE Nitrite Urine NEGATIVE NEGATIVE Urobilinogen Urine 0.2 0.2-1.0 EU/dL Leukocyte Esterase Urine TRACE NEGATIVE WBC Urine 2-5 NONE SEEN #/HPF RBC Urine 0-2 0-2 #/HPF Bacteria Urine MODERATE NONE SEEN #/HPF Mucus Urine NONE SEEN NONE SEEN Squamous Epithelial Cell Urine MODERATE NONE/RARE #/LPF Crystals Seen? None Seen None Seen #/HPF Cast Seen? SEEN NONE SEEN #/LPF Hyaline Casts Urine RARE Urine Culture Indicated YES Performing Lab: see note ML - [facility] PROF CHEM 8 (BAS METB) Reviewed date:12/30/2024 11:28:24 AM Interpretation: Performing Lab: Notes/Report: The [facility] , Sodium 141 136-145 mmol/L Potassium 5.4 3.5-5.1 mmol/L Chloride 104 98-107 mmol/L Carbon Dioxide 25.0 21.0-32.0 mmol/L Anion Gap 17.4 Glucose 225 74-106 mg/dL Blood Urea Nitrogen 50.0 7.0-18.0 mg/dL Creatinine 1.67 0.55-1.02 mg/dL Estimated GFR ( Madiha 37 >=60 mL/min/1.73m 2 Estimated GFR (Non- Ana Luisa 31 >=60 mL/min/1.73m 2 BUN Creatinine Ratio 29.9 Calcium 8.5 8.5-10.1 mg/dL Performing Lab: see note ML - [facility] MAGNESIUM Reviewed date:12/30/2024 11:28:24 AM Interpretation: Performing Lab: Notes/Report: The [facility] , Magnesium 2.2 1.8-2.4 mg/dL Performing Lab: see note ML - [facility] LB LIVER PROFILE Reviewed date:12/30/2024 11:28:24 AM Interpretation: Performing Lab: Notes/Report: The [facility] , Bilirubin Total 1.1 0.2-1.0 mg/dL Bilirubin Direct 0.5 0.0-0.2 mg/dL Aspartate Amino Transferase 17 15-37 U/L Alanine Aminotransferase 11 14-59 U/L Alkaline Phosphatase 105 46-116 U/L Total Protein 6.8 6.4-8.2 g/dL Albumin Level 2.4 3.4-5.0 g/dL Globulin 4.4 Albumin Globulin Ratio 0.5 Performing Lab: see note ML - [facility] LB HEMOGRAM AND PLATEL Reviewed date:12/30/2024 11:28:24 AM Interpretation: Performing Lab: Notes/Report: The [facility] , Hemoglobin 4.9 12.0-16.0 g/dL RESULTS LOREDO D TO DR. SALOMON AT 1217 Hematocrit 18.1 36.0-48.0 % RESULTS CALLED TO DR. SALOMON AT 1217 Performing Lab: see note ML - The [facility] LB BNP Reviewed date:12/30/2024 11:28:24 AM Interpretation: Performing Lab: Notes/Report: The [facility] , NT Pro B Type Natriuretic Pept 897.0 <=900.0 pg/mL Performing Lab: see note ML - The [facility] LB AMMONIA Reviewed date:12/30/2024 11:28:24 AM Interpretation: Performing Lab: Notes/Report: The [facility] , Ammonia 22 11-32 umol/L Performing Lab: see note ML - [facility] LB PROF 14(COMP METB) Reviewed date:11/19/2024 08:36:55 PM Interpretation: Performing Lab: Notes/Report: The [facility] , Sodium 141 136-145 mmol/L Potassium 3.8 3.5-5.1 mmol/L Chloride 108 98-107 mmol/L Carbon Dioxide 23.8 21.0-32.0 mmol/L Anion Gap 13.0 Glucose 72 74-106 mg/dL Blood Urea Nitrogen 20.0 7.0-18.0 mg/dL Creatinine 0.71 0.55-1.02 mg/dL Estimated GFR ( Madiha >60 >=60 mL/min/1.73m 2 Estimated GFR (Non- Ana Luisa >60 >=60 mL/min/1.73m 2 BUN Creatinine Ratio 28.2 Calcium 8.3 8.5-10.1 mg/dL Bilirubin Total 1.0 0.2-1.0 mg/dL Aspartate Amino Transferase 27 15-37 U/L Alanine Aminotransferase 18 14-59 U/L Alkaline Phosphatase 160 46-116 U/L Total Protein 5.6 6.4-8.2 g/dL Albumin Level 1.3 3.4-5.0 g/dL Globulin 4.3 Albumin Globulin Ratio 0.3 Performing Lab: see note ML - The [facility] LB DIGOXIN Reviewed date:11/19/2024 08:36:55 PM Interpretation: Performing Lab: Notes/Report: The [facility] , Digoxin 0.9 0.9-2.0 ng/mL Performing Lab: see note ML - The [facility] LB CBC AUTO DIFF Reviewed date:11/19/2024 08:36:55 PM Interpretation: Performing Lab: Notes/Report: The [facility] , White Blood Count 9.0 4.0-11.0 10 3/uL Red Blood Count 3.65 4.20-5.40 10 6/uL Hemoglobin 8.6 12.0-16.0 g/dL Hematocrit 29.8 36.0-48.0 % Mean Corpuscular Volume 81.6 81.0-99.0 fL Mean Corpuscular Hemoglobin 23.6 26.7-34.0 pg Mean Corpuscular HGB Conc 28.9 29.9-35.2 g/dL Slight Hypochromia Present Red Cell Distribution Width 21.2 11.0-15.0 % Platelet Count 168 150-450 10 3/uL Mean Platelet Volume 10.7 9.5-13.5 fL Neutrophils Percent Auto 69.3 43.0-75.0 % Lymphocytes Percent Auto 21.0 20.5-60.0 % Monocytes Percent Auto 6.6 1.7-12.0 % Eosinophils Percent Auto 1.2 0.9-7.0 % Basophils Percent Auto 0.1 0.2-2.0 % Immature Granulocytes Pct Auto 1.8 0.0-0.5 % Neutrophils Absolute Auto 6.2 1.4-6.5 10 3/uL Lymphocytes Absolute Auto 1.9 1.2-3.8 10 3/uL Monocytes Absolute Auto 0.6 0.3-0.8 10 3/uL Eosinophils Absolute Auto 0.1 0.0-0.7 10 3/uL Basophils Absolute Auto 0.0 0.0-0.1 10 3/uL Immature Granulocytes Abs Auto 0.16 0.00-0.03 10 3/uL Performing Lab: see note ML - [facility] LB BNP Reviewed date:11/19/2024 08:36:55 PM Interpretation: Performing Lab: Notes/Report: The [facility] , NT Pro B Type Natriuretic Pept 4463.0 <=900.0 pg/mL RESULTS CALLED TO Jaymie Lopez RN Performing Lab: see note ML - [facility] LB PROF 14(COMP METB) Reviewed date:11/18/2024 03:05:02 PM Interpretation: Performing Lab: Notes/Report: The [facility] , Sodium 135 136-145 mmol/L Potassium 4.1 3.5-5.1 mmol/L Chloride 109 98-107 mmol/L Carbon Dioxide 17.5 21.0-32.0 mmol/L Anion Gap 12.6 Glucose 97 74-106 mg/dL Blood Urea Nitrogen 25.0 7.0-18.0 mg/dL Creatinine 0.72 0.55-1.02 mg/dL Estimated GFR ( Madiha >60 >=60 mL/min/1.73m 2 Estimated GFR (Non- Ana Luisa >60 >=60 mL/min/1.73m 2 BUN Creatinine Ratio 34.7 Calcium 7.7 8.5-10.1 mg/dL Bilirubin Total 0.9 0.2-1.0 mg/dL Aspartate Amino Transferase 55 15-37 U/L Alanine Aminotransferase 29 14-59 U/L Alkaline Phosphatase 175 46-116 U/L Total Protein 5.2 6.4-8.2 g/dL Albumin Level 1.3 3.4-5.0 g/dL Globulin 3.9 Albumin Globulin Ratio 0.3 Performing Lab: see note ML - [facility] DIGOXIN Reviewed date:11/18/2024 03:05:02 PM Interpretation: Performing Lab: Notes/Report: The [facility] , Digoxin 1.0 0.9-2.0 ng/mL Performing Lab: see note ML - [facility] LB BNP Reviewed date:11/18/2024 03:05:02 PM Interpretation: Performing Lab: Notes/Report: The [facility] , NT Pro B Type Natriuretic Pept 4517.0 <=900.0 pg/mL RESULTS CALLED TO JAYMIE LOPEZ RN Performing Lab: see note ML - [facility] LB Prothrombin Time INR Reviewed date:11/17/2024 08:58:56 PM Interpretation: Performing Lab: Notes/Report: The [facility] , Prothrombin Time 12.4 9.0-11.6 sec INR 1.19 DESIRED INR: 2.0-3.0 CONDITIONS NOT LISTED BELOW 2.5-3.5 FOR PROSTHETIC HEART VALVE REPLACEMENT 2.5-3.5 RECURRENT THROMBOSIS Performing Lab: see note ML - The [facility] LB PTT Reviewed date:11/17/2024 08:58:56 PM Interpretation: Performing Lab: Notes/Report: The [facility] , Partial Thromboplastin Time 31.6 22.3-36.2 sec Performing Lab: see note ML - [facility] LB PROF 14(COMP METB) Reviewed date:11/17/2024 08:58:56 PM Interpretation: Performing Lab: Notes/Report: The [facility] , Sodium 139 136-145 mmol/L Potassium 3.7 3.5-5.1 mmol/L Chloride 109 98-107 mmol/L Carbon Dioxide 23.2 21.0-32.0 mmol/L Anion Gap 10.5 Glucose 144 74-106 mg/dL Blood Urea Nitrogen 39.0 7.0-18.0 mg/dL Creatinine 0.91 0.55-1.02 mg/dL Estimated GFR ( Madiha >60 >=60 mL/min/1.73m 2 Estimated GFR (Non- Ana Luisa >60 >=60 mL/min/1.73m 2 BUN Creatinine Ratio 42.9 Calcium 8.0 8.5-10.1 mg/dL Bilirubin Total 0.7 0.2-1.0 mg/dL Aspartate Amino Transferase 32 15-37 U/L Alanine Aminotransferase 18 14-59 U/L Alkaline Phosphatase 162 46-116 U/L Total Protein 5.1 6.4-8.2 g/dL Albumin Level 1.1 3.4-5.0 g/dL Globulin 4.0 Albumin Globulin Ratio 0.3 Performing Lab: see note ML - The [facility] LB DIGOXIN Reviewed date:11/17/2024 08:58:56 PM Interpretation: Performing Lab: Notes/Report: The [facility] , Digoxin 0.8 0.9-2.0 ng/mL Performing Lab: see note ML - [facility] LB CBC AUTO DIFF Reviewed date:11/17/2024 08:58:56 PM Interpretation: Performing Lab: Notes/Report: The [facility] , White Blood Count 11.6 4.0-11.0 10 3/uL Red Blood Count 4.02 4.20-5.40 10 6/uL Hemoglobin 9.7 12.0-16.0 g/dL Hematocrit 31.9 36.0-48.0 % Mean Corpuscular Volume 79.4 81.0-99.0 fL Mean Corpuscular Hemoglobin 24.1 26.7-34.0 pg Mean Corpuscular HGB Conc 30.4 29.9-35.2 g/dL Red Cell Distribution Width 20.8 11.0-15.0 % Platelet Count 210 150-450 10 3/uL Mean Platelet Volume 10.6 9.5-13.5 fL Neutrophils Percent Auto 74.2 43.0-75.0 % Lymphocytes Percent Auto 16.0 20.5-60.0 % Monocytes Percent Auto 5.9 1.7-12.0 % Eosinophils Percent Auto 1.2 0.9-7.0 % Basophils Percent Auto 0.3 0.2-2.0 % Immature Granulocytes Pct Auto 2.4 0.0-0.5 % Neutrophils Absolute Auto 8.6 1.4-6.5 10 3/uL Lymphocytes Absolute Auto 1.9 1.2-3.8 10 3/uL Monocytes Absolute Auto 0.7 0.3-0.8 10 3/uL Eosinophils Absolute Auto 0.1 0.0-0.7 10 3/uL Basophils Absolute Auto 0.0 0.0-0.1 10 3/uL Immature Granulocytes Abs Auto 0.28 0.00-0.03 10 3/uL Performing Lab: see note ML - [facility] LB BNP Reviewed date:11/17/2024 08:58:56 PM Interpretation: Performing Lab: Notes/Report: The [facility] , NT Pro B Type Natriuretic Pept 9918.0 <=900.0 pg/mL RESULTS CALLED TO MELECIO GRACE RN Performing Lab: see note ML - The [facility] LB Manual Differential Reviewed date:11/15/2024 06:06:54 PM Interpretation: Performing Lab: Notes/Report: The [facility] , Segmented Neutrophils % Manual 76.0 43.0-75.0 Band Neutrophils % 20.0 0-5 % Lymphocytes Percent Manual 2.0 20.5-60.0 % Monocytes Percent Manual 1.0 1.7-12.0 % Eosinophils Percent Manual 1.0 0.9-7.0 % Basophils Percent Manual 0.0 0.2-2.0 % Segmented Neut Absolute Manual 7.60 1.4-6.5 10 3/uL Band Neutrophils Absolute 2.0 0.0-0.3 10 3/uL Lymphocytes Absolute Manual 0.20 1.20-3.80 10 3/uL Monocytes Absolute Manual 0.10 0.30-0.80 10 3/uL Eosinophils Absolute Manual 0.10 0.00-0.70 10 3/uL Basophils Abs Manual 0.00 0.00-0.10 1 0 3/uL Polychromasia 1+ Anisocytosis 2+ Ovalocytes 1+ Performing Lab: see note ML - The [facility] LB CBC AUTO DIFF Reviewed date:11/15/2024 06:06:54 PM Interpretation: Performing Lab: Notes/Report: The [facility] , White Blood Count 10.0 4.0-11.0 10 3/uL Red Blood Count 3.55 4.20-5.40 10 6/uL Hemoglobin 8.5 12.0-16.0 g/dL Hematocrit 28.3 36.0-48.0 % Mean Corpuscular Volume 79.7 81.0-99.0 fL Mean Corpuscular Hemoglobin 23.9 26.7-34.0 pg Mean Corpuscular HGB Conc 30.0 29.9-35.2 g/dL Red Cell Distribution Width 20.4 11.0-15.0 % Platelet Count 180 150-450 10 3/uL Mean Platelet Volume 11.4 9.5-13.5 fL Performing Lab: see note ML - [facility] LB BNP Reviewed date:11/15/2024 06:06:54 PM Interpretation: Performing Lab: Notes/Report: The [facility] , NT Pro B Type Natriuretic Pept 10582.0 <=900.0 pg/mL RESULTS CALLED TO christine shankar rn @BY Payton Julien at 1308 Performing Lab: see note ML - The [facility] LB PROF 14(COMP METB) Reviewed date:11/15/2024 06:06:54 PM Interpretation: Performing Lab: Notes/Report: The [facility] , Sodium 132 136-145 mmol/L Potassium 4.7 3.5-5.1 mmol/L Chloride 100 98-107 mmol/L Carbon Dioxide 18.2 21.0-32.0 mmol/L Anion Gap 18.5 Glucose 409 74-106 mg/dL Blood Urea Nitrogen 53.0 7.0-18.0 mg/dL Creatinine 1.70 0.55-1.02 mg/dL Estimated GFR ( Madiha 36 >=60 mL/min/1.73m 2 Estimated GFR (Non- Ana Luisa 30 >=60 mL/min/1.73m 2 BUN Creatinine Ratio 31.2 Calcium 7.5 8.5-10.1 mg/dL Bilirubin Total 1.9 0.2-1.0 mg/dL Aspartate Amino Transferase 41 15-37 U/L Alanine Aminotransferase 22 14-59 U/L Alkaline Phosphatase 196 46-116 U/L Total Protein 5.7 6.4-8.2 g/dL Albumin Level 1.4 3.4-5.0 g/dL Globulin 4.3 Albumin Globulin Ratio 0.3 Performing Lab: see note ML - The [facility] LB Troponin I High Sensitivity Reviewed date:11/15/2024 06:06:54 PM Interpretation: Performing Lab: Notes/Report: Comment from labs this am The [facility] , Troponin I High Sensitivity 11.9 4.0-51.3 pg/mL CUT-OFF POINTS HAVE BEEN ESTABLISHED BASED ON THE FOURTH UNIVERSAL DEFINITION OF MYOCARDIAL INFARCTION. THE UPPER REFERENCE LIMIT (URL) OF TROPONIN, DEFINED THE 99TH PERCENTILE OF cTnI DISTRIBUTION IN A REFERENCE POPULATION, HAS BEEN CONFIRMED THE DECISION THRESHOLD FOR [place] DIAGNOSIS. 99TH PERCENTILE = 51.4 PG/ML NOTE: HIGH-SENSITIVITY TROPONIN ASSAY IS NOT INTENDED TO BE USED IN ISOLATION BUT SHOULD BE INTERPRETED IN CONJUNCTION WITH OTHER DIAGNOSTIC AND CLINICAL INFORMATION. Performing Lab: see note ML - The [facility] LB Erythrocyte Sedimentation Ra te Reviewed date:11/15/2024 06:06:54 PM Interpretation: Performing Lab: Notes/Report: Comment off am blood if possible The [facility] , Erythrocyte Sedimentation Rate >130 <=30 mm/hr Performing Lab: see note ML - The [facility] LB CELL COUNT CSF Reviewed date:11/15/2024 06:06:54 PM Interpretation: Performing Lab: Notes/Report: The [facility] , CSF Tube # 3 CSF Clarity CLEAR CLEAR CSF Color PINK COLORLESS CSF Total Volume 8.5 White Blood Cell CSF 2 0-5 cubic mm Red Blood Cell CSF 1638 0-0 cubic mm Performing Lab: see note ML - The [facility] LB BNP Reviewed date:11/15/2024 06:06:54 PM Interpretation: Performing Lab: Notes/Report: Comment from labs this am The [facility] , NT Pro B Type Natriuretic Pept 9792.0 <=900.0 pg/mL RESULTS CALLED TO CHRISTINE SHANKAR RN Performing Lab: see note ML - The [facility] LB Box Test Reviewed date:11/18/2024 03:05:02 PM Interpretation: Performing Lab: Notes/Report: POSITIVE BLOOD CULTURE. AEROBIC BOTTLE. The [facility] , BOX Test Sent Out BLOOD CULTURE BOX Test Reference Lab [facility] BOX Test Date Sent 11/14/24 BOX Test Result SEE SCANNED REPORT Performing Lab: see note ML - The [facility] LB Box Test Reviewed date:11/18/2024 03:05:02 PM Interpretation: Performing Lab: Notes/Report: POSITIVE BLOOD CULTURE. ANAEROBIC BOTTLE. The [facility] , BOX Test Sent Out BLOOD CULTURE BOX Test Reference Lab [facility] BOX Test Date Sent 11/14/24 BOX Test Result SEE SCANNED REPORT Performing Lab: see note ML - The [facility] LB Box Test Reviewed date:11/18/2024 03:05:02 PM Interpretation: Performing Lab: Notes/Report: POSITIVE BLOOD CULTURE. ANAEROBIC BOTTLE. The [facility] , BOX Test Sent Out BLOOD CULTURE BOX Test Reference Lab [facility] BOX Test Date Sent 11/14/24 BOX Test Result SEE SCANNED REPORT Performing Lab: see note ML - The [facility] LB Box Test Reviewed date:11/18/2024 03:05:02 PM Interpretation: Performing Lab: Notes/Report: POSITIVE BLOOD CULTURE. AEROBIC BOTTLE. The [facility] , BOX Test Sent Out BLOOD CULTURE BOX Test Reference Lab [facility] BOX Test Date Sent 11/14/24 BOX Test Result SEE SCANNED REPORT Performing Lab: see note ML - The [facility] LB ECG 12 lead Reviewed date:11/06/2024 12:23:59 PM Interpretation: Performing Lab: Notes/Report: Source Facility: [facility] [place] [address] [place] [address] Electrocardiograph Report Signed Patient: CONNIE BRIAN MR#: [id number] : 1955 Acct:[id number] Age/Sex: 68 / F ADM Date: 11/02/24 Loc: ER Attending Dr: Ordering Physician: Sadie Cortes Date of Service: 11/02/24 Procedure(s): ECG 12 lead Accession Number(s): [id number] cc: The [facility] Test Date: 2024-11-02 Pat Name: CONNIE BRIAN Department: Room: - Gender: Female 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 Signed By: 11/06/24 0652 DD/ 0830 TD/TT: Watch Crystal Molder: [place] [address] Electrocardiograph Report Signed Patient: STEPHEN BRIAN MR#: [id number] : 1955 Acct:[id number] Age/Sex: 68 / F ADM Date: 11/02/24 Loc: ER Attending Dr: Ordering Physician: Sadie Cortes Date of Service: 11/02/24 Procedure(s): ECG 12 lead Accession Number(s): [id number] cc: The [facility] Test Date: 2024-11-02 Pat Name: CONNIE JACEY NUNEZ Department: 34 Room: - Gender: Female Drive In Theater Attendant: : 1955 Requ ested By: HARRY VALENCIA Order Number: [id number] Reading MD: HARRY VALENCIA Measurements Intervals [place] Rate: 103 P: -66332 NC: -57119 QRS: 30 QRSD: 70 T: 92 QT: 306 QTc: 365 Interpretive Statements 1250 Atrial flutter 4068 Nonspecific Twa ve abnormality 8102 Low QRS voltage in chest leads 9140 abnormal rhy thm ECG Compared to ECG 05/25/2023 11:42:28 Sinus rhythm no long er present Electronically Erinn d On 11-06-2024 6:52:36 EST by HARRY VALENCIA Dictated By: Ezekiel Valencia M.D. Signed By: 11/06/24 0652 DD/ TD/TT: Watch Crystal Molder: XR HAND LT MIN 3V Reviewed date:11/04/2024 08:21:50 PM Interpretation: Performing Lab: Notes/Report: Source Facility: [place] [address] XRay Report Signed Patient: CONNIE BRIAN MR#: [id number] : 1955 Acct:[id number] Age/Sex: 68 / F ADM Date: 11/02/24 Loc: ER Attending Dr: Ordering Physician: Sadie Cortes Date of Service: 11/02/24 Procedure(s): XR hand LT min 3V Accession Number(s): [id number] cc: Harry Valencia M.D.; Sadie Cortes [place] [id number] Patient Name: CONNIE BRIAN MRN: [id number] date: 1955 Sex: F Assigned Patient Location: ER Current Patient Location: ER Accession/Order Number: [id number] Exam Date: 11/02/2024 09:45 Report Date: 11/02/2024 10:20 At the request of: SADIE CORTES Procedure: XR hand LT min 3V PROCEDURE: XR hand LT min 3V COMPARISON: None. HISTORY: pain FINDINGS: BONES:No acute fracture or dislocation. Moderate degenerative changes with joint space narrowing marginal osteophyte formation most significant along the medial carpus SOFT TISSUES:Negative. No visible soft tissue swelling. EFFUSION:None visible. OTHER: Negative. XR/XR hand LT min 3V IMPRESSION: Moderate osteoarthritis Electronically authenticated by: MAISHA ALBRIGHT Date: 11/02/2024 10:20 Dictated By: Maisha Albright M.D. Signed By: 11/02/24 102 DD/ 1020 TD/TT: Watch Crystal Molder: The [address] [address] XRay Report Signed Patient: STEPHEN BRIAN MR#: [id number] : 1955 Acct:[id number] Age/Sex: 68 / F ADM Date: 11/02/24 Loc: ER Attending Dr: Ordering Physician: Sadie Cortes Date of Service: 11/02/24 Procedure(s): XR red d LT min 3V Accession Number(s): [id number] cc: Harry Valencia M.D. ; Sadie Cortes [place] [id number] Patient Name: CONNIE BRIAN MRN: [id number] date: 1955 Sex: F Assigned Patient Location: ER Current Patient Loca tion: ER Accession/Order Numb er: [id number] Exam Date: 09:45 Report Date: 11/02/2024 10:20 At the request of: SADIE CORTES Procedure: XR hand L T min 3V PROCEDURE: XR hand L T min 3V COMPARISON: None. HISTORY: pain FINDINGS: BONES:No acute fract ure or dislocation. Moderate degenerative changes with joint space narrowin g marginal osteophyte formation most significant along the medial carpus SOFT TISSUES:Negativ e. No visible soft tissue swelling. EFFUSION:None visible. OTHER: Negative. X R/XR hand LT min 3V IMPRESSION: Moderate osteoarthritis Electronically authenticated by: MAISHA ALBRIGHT Date: 11/02/2024 10:20 Dictated By: Prasanna Albright M.D. Signed By: 11/02/24 102 DD/ 1020 TD/TT: Watch Crystal Molder: Troponin I High Sensitivity Reviewed date:11/04/2024 08:21:50 PM Interpretation: Performing Lab: Notes/Report: The [facility] , Troponin I High Sensitivity 38.0 4.0-51.3 pg/mL CUT-OFF POINTS HAVE BEEN ESTABLISHED BASED ON THE FOURTH UNIVERSAL DEFINITION OF MYOCARDIAL INFARCTION. THE UPPER REFERENCE LIMIT (URL) OF TROPONIN, DEFINED THE 99TH PERCENTILE OF cTnI DISTRIBUTION IN A REFERENCE POPULATION, HAS BEEN CONFIRMED THE DECISION THRESHOLD FOR [place] DIAGNOSIS. 99TH PERCENTILE = 51.4 PG/ML NOTE: HIGH-SENSITIVITY TROPONIN ASSAY IS NOT INTENDED TO BE USED IN ISOLATION BUT SHOULD BE INTERPRETED IN CONJUNCTION WITH OTHER DIAGNOSTIC AND CLINICAL INFORMATION. Performing Lab: see note ML - [facility] LB Prothrombin Time INR Reviewed date:11/04/2024 08:21:50 PM Interpretation: Performing Lab: Notes/Report: The [facility] , Prothrombin Time 10.9 9.0-11.6 sec INR 1.03 DESIRED INR: 2.0-3.0 CONDITIONS NOT LISTED BELOW 2.5-3.5 FOR PROSTHETIC HEART VALVE REPLACEMENT 2.5-3.5 RECURRENT THROMBOSIS Performing Lab: see note ML - [facility] LB PROF 14(COMP METB) Reviewed date:11/04/2024 08:21:50 PM Interpretation: Performing Lab: Notes/Report: The [facility] , Sodium 140 136-145 mmol/L Potassium 4.1 3.5-5.1 mmol/L Chloride 101 98-107 mmol/L Carbon Dioxide 26.0 21.0-32.0 mmol/L Anion Gap 17.1 Glucose 361 74-106 mg/dL Blood Urea Nitrogen 16.0 7.0-18.0 mg/dL Creatinine 0.90 0.55-1.02 mg/dL Estimated GFR ( Madiha >60 >=60 mL/min/1.73m 2 Estimated GFR (Non- Ana Luisa >60 >=60 mL/min/1.73m 2 BUN Creatinine Ratio 17.8 Calcium 9.1 8.5-10.1 mg/dL Bilirubin Total 1.3 0.2-1.0 mg/dL Aspartate Amino Transferase 26 15-37 U/L Alanine Aminotransferase 27 14-59 U/L Alkaline Phosphatase 115 46-116 U/L Total Protein 7.2 6.4-8.2 g/dL Albumin Level 2.8 3.4-5.0 g/dL Globulin 4.4 Albumin Globulin Ratio 0.6 Performing Lab: see note ML - [facility] LB MAGNESIUM Reviewed date:11/04/2024 08:21:50 PM Interpretation: Performing Lab: Notes/Report: The [facility] , Magnesium 1.7 1.8-2.4 mg/dL Performing Lab: see note ML - [facility] LB CBC AUTO DIFF Reviewed date:11/04/2024 08:21:50 PM Interpretation: Performing Lab: Notes/Report: The [facility] , White Blood Count 7.0 4.0-11.0 10 3/uL Red Blood Count 4.67 4.20-5.40 10 6/uL Hemoglobin 11.0 12.0-16.0 g/dL Hematocrit 36.6 36.0-48.0 % Mean Corpuscular Volume 78.4 81.0-99.0 fL Mean Corpuscular Hemoglobin 23.6 26.7-34.0 pg Mean Corpuscular HGB Conc 30.1 29.9-35.2 g/dL Red Cell Distribution Width 20.1 11.0-15.0 % Platelet Count 178 150-450 10 3/uL Mean Platelet Volume 10.9 9.5-13.5 fL Neutrophils Percent Auto 66.1 43.0-75.0 % Lymphocytes Percent Auto 22.6 20.5-60.0 % Monocytes Percent Auto 8.5 1.7-12.0 % Eosinophils Percent Auto 1.9 0.9-7.0 % Basophils Percent Auto 0.6 0.2-2.0 % Immature Granulocytes Pct Auto 0.3 0.0-0.5 % Neutrophils Absolute Auto 4.6 1.4-6.5 10 3/uL Lymphocytes Absolute Auto 1.6 1.2-3.8 10 3/uL Monocytes Absolute Auto 0.6 0.3-0.8 10 3/uL Eosinophils Absolute Auto 0.1 0.0-0.7 10 3/uL Basophils Absolute Auto 0.0 0.0-0.1 10 3/uL Immature Granulocytes Abs Auto 0.02 0.00-0.03 10 3/uL Performing Lab: see note ML - [facility] LB Occult Blood* Reviewed date:09/29/2024 04:03:46 PM Interpretation: Performing Lab: Notes/Report: The [facility] , Occult Blood Positive Performing Lab: see note - [facility] LB Type and Screen Reviewed date:09/29/2024 04:03:46 PM Interpretation: Performing Lab: Notes/Report: The [facility] , Blood Type O Positive Antibody Screen NEGATIVE Packed Red Blood Cells Reviewed date:09/29/2024 04:03:46 PM Interpretation: Performing Lab: Notes/Report: Packed Red Blood Cells [id number] OP RC TRANSFUSED 09/28/24 1126 [id number] OP RC TRANSFUSED 09/28/24 1321 Second ABO/RH Type Reviewed date:09/29/2024 04:03:46 PM Interpretation: Performing Lab: Notes/Report: [facility] , Blood Type #2 O Positive CBC AUTO DIFF Reviewed date:09/21/2024 09:21:49 PM Interpretation: Performing Lab: Notes/Report: The [facility] , White Blood Count 4.8 4.0-11.0 10 3/uL Red Blood Count 3.86 4.20-5.40 10 6/uL 1+ ANISOCYTOSIS 1+ HYPOCHROMIA 1+ MICROCYTOSIS 1+ OVALOCYTES Hemoglobin 8.2 12.0-16.0 g/dL Hematocrit 29.4 36.0-48.0 % Mean Corpuscular Volume 76.2 81.0-99.0 fL Mean Corpuscular Hemoglobin 21.2 26.7-34.0 pg Mean Corpuscular HGB Conc 27.9 29.9-35.2 g/dL Red Cell Distribution Width 17.5 11.0-15.0 % Platelet Count 134 150-450 10 3/uL Mean Platelet Volume 10.7 9.5-13.5 fL Neutrophils Percent Auto 60.2 43.0-75.0 % Lymphocytes Percent Auto 24.3 20.5-60.0 % Monocytes Percent Auto 8.5 1.7-12.0 % Eosinophils Percent Auto 6.2 0.9-7.0 % Basophils Percent Auto 0.6 0.2-2.0 % Immature Granulocytes Pct Auto 0.2 0.0-0.5 % Neutrophils Absolute Auto 2.9 1.4-6.5 10 3/uL Lymphocytes Absolute Auto 1.2 1.2-3.8 10 3/uL Monocytes Absolute Auto 0.4 0.3-0.8 10 3/uL Eosinophils Absolute Auto 0.3 0.0-0.7 10 3/uL Basophils Absolute Auto 0.0 0.0-0.1 10 3/uL Immature Granulocytes Abs Auto 0.01 0.00-0.03 10 3/uL Performing Lab: see note ML - The [facility] LB SARS-CoV-2 Ag* Reviewed date:06/24/2024 04:43:46 PM Interpretation: Performing Lab: Notes/Report: The [facility] , SARS-CoV-2 Ag NEGATIVE NEGATIVE This test has not been FDA cleared or approved, but has been authorized by the FDA under an Emergency Use Authorization (EUA) for use by authorized laboratories certified under CLIA that meet the requirements to perform moderate or high complexity testing. This test has been authorized only for the detection of proteins from SARS-CoV-2, not for any other viruses or pathogens. The emergency use of this test is authorized for the duration of the declaration that circumstances exist justifying the authorization of emergency use of in vitro diagnostic tests for detection and/or diagnosis of Covid-19 under section 564(b)(1) of the Act, 21 U.S.C. 360bbb-3(b)(1), unless the declaration is terminated or authorization is revoked sooner. Performing Lab: see note ML - The [facility] CA echo doppler complete Reviewed date:05/30/2024 08:08:05 PM Interpretation: Performing Lab: Notes/Report: Source Facility: [facility] [place] [address] [place] [address] Cardiology Report Signed Patient: CONNIE BRIAN MR#: [id number] : 1955 Acct:[id number] Age/Sex: 68 / F ADM Date: 05/29/24 Loc: CARD Attending Dr: Aydin Espinoza M.D. Ordering Physician: Aydin Espinoza M.D. Date of Service: 05/29/24 Procedure(s): CA echo doppler complete Accession Number(s): [id number] cc: Harry Valencia M.D.; Aydin Espinoza M.D. Patient Name: CONNIE BRIAN MR#: [id number] : 1955 Exam Date: 05/29/2024 Ordering Doctor: AYDIN ESPINOZA ECHOCARDIOGRAM REPORT PROCEDURE: CA ECHO DOPPLER COMPLETE INDICATIONS: PATEL, Valvular heart disease COMPARISON: None. DESCRIPTION: COMPLETE ECHOCARDIOGRAM Real-time transthoracic echocardiography with 2D, M-mode, spectral and color flow Doppler performed. QUALITY: Technical quality was good. LEFT VENTRICLE: Normal chamber size. Mild concentric left ventricular hypertrophy. LV EF: Global left ventricular systolic function is hyperdynamic; visually estimated ejection fraction is 65 to 70%. No significant wall motion abnormalities. DIASTOLIC: Diastolic function is indeterminate. ATRIAL SEPTUM: Inadequately seen. LEFT ATRIUM: Moderate dilatation. RIGHT ATRIUM: Mild dilatation. RIGHT VENTRICLE: Normal chamber size. Normal right ventricular systolic function. TRICUSPID VALVE: Normal mobility and thickness. Mild regurgitation. Moderate pulmonary hypertension. RVSP 50mmHg MITRAL VALVE: Normal mobility and thickness. No evidence of mitral valve stenosis. There is no mitral annular calcification. Mild mitral regurgitation. AORTIC VALVE: Normal trileaflet appearance. Thickened aortic valve. Normal leaflet mobility. No evidence of aortic valve stenosis. Mild aortic regurgitation. AORTIC ROOT: Normal diameter and appearance. PULMONIC VALVE: Normal thickness and mobility. No stenosis. No regurgitation. PERICARDIUM: No evidence of pericardial effusion. IVC: Collapses with inspirations. Normal size. CONCLUSION: 1. Global left ventricular systolic function is hyperdynamic; visually estimated ejection fraction 65 to 70% 2. Mildly increased left ventricular wall thickness 3. Normal right ventricular size and systolic function 4. Biatrial enlargement 5. Diastolic function is indeterminate 6. Mild tricuspid regurgitation 7. Moderately elevated right ventricular systolic pressure; RVSP 50 mmHg 8. Mild mitral regurgitation 9. Mild aortic valve regurgitation Adult Echocardiography Procedure Report Left Ventricle LVEDD (3.7 - 5.6 cm): 4.76 cm LVESD (2.2 - 4.0 cm): 2.67 cm LVIVS thickness (0.6 - 1.2 cm): 1.33 cm LVPW thickness (0.5 - 1.0 cm): 1.17 cm e': 0.12 m/s E - e': 9.19 LVOT Max Gradient: 6.88 mm[Hg] LVOT Area (cm2): 1.31 m/s Peak Velocity (LVOT): 1.31 m/s Mean Velocity (LVOT): 0.78 m/s LVOT Diameter 2.20 cm Left Ventricular Ejection Fraction: 68.59 % Left Atrium LA Volume Index (2D A2C): 48.59 ml/m2 Left Atrium Systolic Dimension: 5.18 cm Mitral Valve MV E to A Ratio: 1.14, 1.09 Mitral Valve A-Wave Peak Velocity: 0.99 m/s Mitral Valve E-Wave Peak Velocity: 1.11 m/s Right Ventricle RV Internal Diastolic Dimension: 3.27 cm Aorta AO Root Diam: 3.26 cm Ascending Ao Diam: 2.98 cm Aortic Valve AoV Area (Peak Darryl): 2.37 cm2, 2.37 cm2 AoV Area (VTI): 2.70 cm2, 2.70 cm2 Deceleration [place]: 2.28 m/s2 Pressure Half-Time: 381.60 ms Peak Velocity(Antegrade Flow): 2.10 m/s Peak Gradient(Antegrade Flow): 17.61 mm[Hg] Mean Velocity(Antegrade Flow): 1.44 m/s Mean Gradient(Antegrade Flow): 9.53 mm[Hg] Velocity Time Integral: 44.16 cm Tricuspid Valve Peak Velocity (Regurgitant Flow): 3.06 m/s, 3.39 m/s, 3.44 m/s Pulmonic Valve Mean Gradient: 3.49 mm[Hg], 3.15 mm[Hg] Mean Velocity: 0.90 m/s, 0.85 m/s Peak Velocity: 1.11 m/s Peak Gradient: 4.96 mm[Hg], 4.96 mm[Hg] Right Atrium Right Atrium Systolic Pressure: 64.08 ml, 64.08 ml Dictated by: Monique Blair M.D. on 05/30/2024 at 10:50 Approved by: Monique Blair M.D. on 05/30/2024 at 10:55 Dictated By: Monique Blair M.D. Signed By: 05/30/24 1056 DD/ 1055 TD/TT: Watch Crystal Molder: [place] [address] Cardiology Report Signed Patient: STEPHEN BRIAN MR#: [id number] : 1955 Acct:[id number] Age/Sex: 68 / F ADM Date: 05/29/24 Loc: CARD Attending Dr: Aydin Espinoza M.D. Ordering Physician: Aydin Espinoza M.D. Date of Service: 05/29/24 Procedure(s): CA ech o doppler complete Accession Number(s): [id number] cc: Harry Valencia M.D. ; Aydin Espinoza M.D. Patient Name: CONNIE BRIAN MR#: [id number] : 1955 Exam Date: 05/29/2024 Ordering Doctor: KARL ESPINOZA ECHOCARDIOGRAM REPORT PROCEDURE: CA ECHO DOPPLER COMPLETE INDICATIONS: PATEL, Valvular heart disease COMPARISON: None. DESCRIPTION: COMPLET E ECHOCARDIOGRAM Real-time transthoracic echocardiography wit h 2D, M-mode, spectral and color flow Doppler performed. QUALITY: Technical quality was good. LEFT VENTRICLE: Norm al chamber size. Mild concentric left ventricular hypertrophy. LV EF: Global left ventricular systolic function is hyperdynamic; visually estimated ejection fraction is 65 to 70%. No significant wall motion abnormalities. DIASTOLIC: Diastolic function is indeterminate. ATRIAL SEPTUM: Inadequately seen. LEFT ATRIUM: Moderat e dilatation. RIGHT ATRIUM: Mild dilatation. RIGHT VENTRICLE: [place] chamber size. Normal right ventricular systolic function. TRICUSPID VALVE: [place] mal mobility and thickness. Mild regurgitation. Moderate pulmonary hypertension. RVSP 50mmHg MITRAL VALVE: Normal mobility and thickness. No evidence of mitral valve stenosis. There is n o mitral annular calcification. Mild mitral regurgitation. AORTIC VALVE: Normal trileaflet appearance. Thickened aortic valve. Normal leaflet mobil ity. No evidence of aortic valve stenosis. Mild aortic regurgitation. AORTIC ROOT: Normal diameter and appearance. PULMONIC VALVE: Norm al thickness and mobility. No stenosis. No regurgitation. PERICARDIUM: No evid ence of pericardial effusion. IVC: Collapses with inspirations. Normal size. CONCLUSION: 1. Global left ventricular systolic function is hyperdynamic; visually estimated ejection fraction 65 to 70% 2. Mildly increased left ventricular wall thickness 3. Normal right ventricular size and systolic function 4. Biatrial enlargement 5. Diastolic functio n is indeterminate 6. Mild tricuspid regurgitation 7. Moderately elevat ed right ventricular systolic pressure; RVSP 50 mmHg 8. Mild mitral regurgitation 9. Mild aortic valve regurgitation Adult Echocardiograp hy Procedure Report Left Ventricle LVEDD (3.7 - 5.6 cm) : 4.76 cm LVESD (2.2 - 4.0 cm) : 2.67 cm LVIVS thickness (0.6 - 1.2 cm): 1.33 cm LVPW thickness (0.5 - 1.0 cm): 1.17 cm e': 0.12 m/s E - e': 9.19 LVOT Max Gradient: 6 .88 mm[Hg] LVOT Area (cm2): 1.31 m/s Peak Velocity (LVOT) : 1.31 m/s Mean Velocity (LVOT) : 0.78 m/s LVOT Diameter 2.20 cm Left Ventricular Eje ction Fraction: 68.59 % Left Atrium LA Volume Index (2D A2C): 48.59 ml/m2 Left Atrium Systolic Dimension: 5.18 cm Mitral Valve MV E to A Ratio: 1.1 4, 1.09 Mitral Valve A-Wave Peak Velocity: 0.99 m/s Mitral Valve E-Wave Peak Velocity: 1.11 m/s Right Ventricle RV Internal Diastoli c Dimension: 3.27 cm Aorta AO Root Diam: 3.26 cm Ascending Ao Diam: 2 .98 cm Aortic Valve AoV Area (Peak Darryl): 2.37 cm2, 2.37 cm2 AoV Area (VTI): 2.70 cm2, 2.70 cm2 Deceleration [place]: 2.28 m/s2 Pressure Half-Time: 381.60 ms Peak Velocity(Antegr gifty Flow): 2.10 m/s Peak Gradient(Antegr gifty Flow): 17.61 mm[Hg] Mean Velocity(Antegr gifty Flow): 1.44 m/s Mean Gradient(Antegr gifty Flow): 9.53 mm[Hg] Velocity Time Integr al: 44.16 cm Tricuspid Valve Peak Velocity (Regurgitant Flow): 3.06 m/s, 3.39 m/s, 3.44 m/s Pulmonic Valve Mean Gradient: 3.49 mm[Hg], 3.15 mm[Hg] Mean Velocity: 0.90 m/s, 0.85 m/s Peak Velocity: 1.11 m/s Peak Gradient: 4.96 mm[Hg], 4.96 mm[Hg] Right Atrium Right Atrium Systoli c Pressure: 64.08 ml, 64.08 ml Dictated by: Monique Blair M.D. on 05/30/2024 at 10:50 Approved by: Monique Blair M.D. on 05/30/2024 at 10:55 Dictated By: Monique Blair M.D. Signed By: 05/30/24 105 DD/ 1055 TD/TT: Watch Crystal Molder: IRON Reviewed date:03/05/2025 04:11:43 PM Interpretation: Performing Lab: Notes/Report: The [facility] , Iron 15.0 50.0-170.0 ug/dL Performing Lab: see note ML - The [facility] LB FERRITIN Reviewed date:03/05/2025 04:11:43 PM Interpretation: Performing Lab: Notes/Report: The [facility] , Ferritin 7.0 8.0-252.0 ng/mL Performing Lab: see note ML - The [facility] LB CBC AUTO DIFF Reviewed date:03/05/2025 01:33:59 PM Interpretation: Performing Lab: Notes/Report: The [facility] , White Blood Count 3.8 4.0-11.0 10 3/uL Red Blood Count 2.58 4.20-5.40 10 6/uL Hemoglobin 5.6 12.0-16.0 g/dL RESULTS LOR[place]O D TO RAN MANRIQUEZ LPN Hematocrit 20.6 36.0-48.0 % RESULTS CALLED TO RAN MANRIQUEZ LPN Mean Corpuscular Volume 79.8 81.0-99.0 fL Mean Corpuscular Hemoglobin 21.7 26.7-34.0 pg HYPOCHROMASIA 2+ Mean Corpuscular HGB Conc 27.2 29.9-35.2 g/dL Red Cell Distribution Width 17.7 11.0-15.0 % Platelet Count 159 150-450 10 3/uL Mean Platelet Volume 11.6 9.5-13.5 fL Neutrophils Percent Auto 50.5 43.0-75.0 % Lymphocytes Percent Auto 34.9 20.5-60.0 % Monocytes Percent Auto 11.2 1.7-12.0 % Eosinophils Percent Auto 3.1 0.9-7.0 % Basophils Percent Auto 0.3 0.2-2.0 % Immature Granulocytes Pct Auto 0.0 0.0-0.5 % Neutrophils Absolute Auto 1.9 1.4-6.5 10 3/uL Lymphocytes Absolute Auto 1.3 1.2-3.8 10 3/uL Monocytes Absolute Auto 0.4 0.3-0.8 10 3/uL Eosinophils Absolute Auto 0.1 0.0-0.7 10 3/uL Basophils Absolute Auto 0.0 0.0-0.1 10 3/uL Immature Granulocytes Abs Auto 0.00 0.00-0.03 10 3/uL Performing Lab: see note ML - [facility] LB CBC AUTO DIFF Reviewed date:10/01/2024 06:50:54 PM Interpretation: Performing Lab: Notes/Report: The [facility] , White Blood Count 5.4 4.0-11.0 10 3/uL Red Blood Count 4.79 4.20-5.40 10 6/uL Hemoglobin 10.8 12.0-16.0 g/dL Hematocrit 36.6 36.0-48.0 % Mean Corpuscular Volume 76.4 81.0-99.0 fL Mean Corpuscular Hemoglobin 22.5 26.7-34.0 pg Mean Corpuscular HGB Conc 29.5 29.9-35.2 g/dL Red Cell Distribution Width 18.5 11.0-15.0 % Platelet Count 143 150-450 10 3/uL Mean Platelet Volume 9.9 9.5-13.5 fL Neutrophils Percent Auto 53.7 43.0-75.0 % Lymphocytes Percent Auto 30.9 20.5-60.0 % Monocytes Percent Auto 10.2 1.7-12.0 % Eosinophils Percent Auto 4.4 0.9-7.0 % Basophils Percent Auto 0.6 0.2-2.0 % Immature Granulocytes Pct Auto 0.2 0.0-0.5 % Neutrophils Absolute Auto 2.9 1.4-6.5 10 3/uL Lymphocytes Absolute Auto 1.7 1.2-3.8 10 3/uL Monocytes Absolute Auto 0.6 0.3-0.8 10 3/uL Eosinophils Absolute Auto 0.2 0.0-0.7 10 3/uL Basophils Absolute Auto 0.0 0.0-0.1 10 3/uL Immature Granulocytes Abs Auto 0.01 0.00-0.03 10 3/uL Performing Lab: see note ML - [facility] LB GLYCOHEMOGLOBIN A1C Reviewed date:09/21/2024 09:21:49 PM Interpretation: Performing Lab: Notes/Report: The [facility] , Glycohemoglobin A1C 11.7 4.5-6.2 % ADA RECOMMENDED LIMIT 4.0 - 6.0 ADA THERAPEUTIC TARGET < 7.0 ACTION SUGGESTED > 7.0 Estimated Average Glucose 289 Performing Lab: see note ML - The [facility] LB CBC AUTO DIFF Reviewed date:09/29/2024 04:03:46 PM Interpretation: Performing Lab: Notes/Report: The [facility] , White Blood Count 5.0 4.0-11.0 10 3/uL Red Blood Count 3.97 4.20-5.40 10 6/uL Hemoglobin 8.5 12.0-16.0 g/dL Hematocrit 30.8 36.0-48.0 % Mean Corpuscular Volume 77.6 81.0-99.0 fL Mean Corpuscular Hemoglobin 21.4 26.7-34.0 pg Mean Corpuscular HGB Conc 27.6 29.9-35.2 g/dL Red Cell Distribution Width 17.8 11.0-15.0 % Platelet Count 146 150-450 10 3/uL Mean Platelet Volume 11.0 9.5-13.5 fL Neutrophils Percent Auto 57.9 43.0-75.0 % Lymphocytes Percent Auto 26.9 20.5-60.0 % Monocytes Percent Auto 8.4 1.7-12.0 % Eosinophils Percent Auto 5.4 0.9-7.0 % Basophils Percent Auto 1.0 0.2-2.0 % Immature Granulocytes Pct Auto 0.4 0.0-0.5 % Neutrophils Absolute Auto 2.9 1.4-6.5 10 3/uL Lymphocytes Absolute Auto 1.3 1.2-3.8 10 3/uL Monocytes Absolute Auto 0.4 0.3-0.8 10 3/uL Eosinophils Absolute Auto 0.3 0.0-0.7 10 3/uL Basophils Absolute Auto 0.1 0.0-0.1 10 3/uL Immature Granulocytes Abs Auto 0.02 0.00-0.03 10 3/uL Performing Lab: see note ML - The [facility] LB AMMONIA Reviewed date:03/06/2025 09:53:01 AM Interpretation: Performing Lab: Notes/Report: The [facility] , Ammonia 66 11-32 umol/L RESULTS CALLED TO ANNA WEBBER RN @BY Zo Juarez at 0608 Performing Lab: see note ML - The [facility] LB LACTATE or LACTIC ACID Reviewed date:03/06/2025 09:53:01 AM Interpretation: Performing Lab: Notes/Report: The [facility] , Lactate/Lactic Acid 3.9 0.4-2.0 mmol/L RESULT S CALLED TO MARIA C HARGROVE RN at 2136 Performing Lab: see note ML - The [facility] LB ECG 12 lead Reviewed date:03/06/2025 09:53:01 AM Interpretation: Performing Lab: Notes/Report: Source Facility: [facility] [place] [address] [place] [address] Electrocardiograph Report Signed Patient: CONNIE BRIAN MR#: [id number] : 1955 Acct:[id number] Age/Sex: 69 / F ADM Date: 03/05/25 Loc: [place] 222-[address]: Harry Valencia M.D. Ordering Physician: Curly Suarez M.D. 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 Measurements Intervals [place] Rate: 64 P: 55 NC: 198 QRS: 75 QRSD: 76 T: 90 QT: 384 QTc: 393 Interpretive Statements 1100 Sinus rhythm 4068 Nonspecific [place] abnormality 9130 borderline ECG Compared to ECG 12/28/2024 19:24:10 Ventricular premature complex(es) no longer present Electronically Signed On 03-05-2025 19:33:52 EDT by RUFINA CROUCH M.D. Dictated By: RUFINA CROUCH Signed By: 03/05/251933 DD/ 1453 TD/TT: Watch Crystal Molder: [place] [address] Electrocardiograph Report Signed Patient: STEPHEN BRIAN MR#: [id number] : 1955 Acct:[id number] Age/Sex: 69 / F ADM Date: 03/05/25 Loc: MS 222-[address]: Miya Valencia M.D. Ordering Physician: Curly Suarez M.D. 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 Measurements Intervals [place] Rate: 64 P: 55 NC: 198 QRS: 75 QRSD: 76 T: 90 QT: 384 QTc: 393 Interpretive Statements 1100 Sinus rhythm 4068 Nonspecific Twa ve abnormality 9130 borderline ECG Compared to ECG 12/28/2024 19:24:10 Ventricular prematur e complex(es) no longer present Electronically Erinn d On 03-05-2025 19:33:52 EDT by RUFINA CROUCH M.D. Dictated By: RUFINA CROUCH Signed By: 03/05/251933 DD/ 52 TD/TT: Watch Crystal Molder: [facility]rine [facility] Reviewed date:03/09/2025 01:15:48 PM Interpretation: Performing Lab: Notes/Report: [facility] , [facility] See Below For Report [facility] Testing performed at [facility] O:ESCCOL Isolated Urine Culture - [facility] [place] Count Organism: 1.1 Antibiotic Interpretation KAL Status [facility]rine [facility] - [facility] [address], [place] [address] Urine Culture - [facility] Testing performed at [facility] O:ESCCOL Isolated Urine Culture - [facility] [place] Count Organism: 1.1 Antibiotic Interpretation KAL Status Urine Culture - [facility] See Below For Report Urine [facility] Testing performed at [facility] O:ESCCOL Isolated Urine Culture - [facility] [place] Count Organism: 1.1 Antibiotic Interpretation KAL Status Urine Culture - [facility] See Below For Report Urine [facility] Testing performed at [facility] O:ESCCOL Isolated Urine Culture - [facility] [place] Count Organism: 1.1 Antibiotic Interpretation KAL Status [facility] >100,000 [facility] Testing performed at [facility] O:ESCCOL Isolated Urine Culture - [facility] [place] Count Organism: 1.1 Antibiotic Interpretation KAL Status Urine Culture - [facility] See Below For Report Urine Culture [facility] Testing performed at [facility] O:ESCCOL Isolated Urine Culture - [facility] [place] Count Organism: 1.1 Antibiotic Interpretation KAL Status Urine Culture [facility] Amikacin S F Urine Culture [facility] Testing performed at [facility] O:ESCCOL Isolated Urine Culture - [facility] [place] Count Organism: 1.1 Antibiotic Interpretation KAL Status Urine [facility] Amoxicillin/Clavula dustin S F Urine Culture [facility] Testing performed at [facility] O:ESCCOL Isolated Urine Culture - [facility] [place] Count Organism: 1.1 Antibiotic Interpretation KAL Status U[facility] Ampicillin R F Urine Culture [facility] Testing performed at [facility] O:ESCCOL Isolated Urine Culture - [facility] [place] Count Organism: 1.1 Antibiotic Interpretation KAL Status [facility] Aztreonam S F Urine [facility] Testing performed at [facility] O:ESCCOL Isolated Urine Culture - [facility] [place] Count Organism: 1.1 Antibiotic Interpretation KAL Status Urine [facility] Ceftazidime S F Urine Culture - [facility] Testing performed at [facility] O:ESCCOL Isolated Urine Culture - [facility] [place] Count Organism: 1.1 Antibiotic Interpretation KAL Status Urine Culture [facility] Ceftazidime/Avibactam S F Urine Culture [facility] Testing performed at [facility] O:ESCCOL Isolated Urine Culture - [facility] [place] Count Organism: 1.1 Antibiotic Interpretation KAL Status U[facility] Ceftolozane/Tazobac tripp S F Urine Culture - [facility] Testing performed at [facility] O:ESCCOL Isolated Urine Culture - [facility] [place] Count Organism: 1.1 Antibiotic Interpretation KAL Status [facility] Ciprofloxacin R F Urine [facility] Testing performed at [facility] O:ESCCOL Isolated Urine Culture - [facility] [place] Count Organism: 1.1 Antibiotic Interpretation KAL Status [facility] Ertapenem S F U[facility] Testing performed at [facility] O:ESCCOL Isolated Urine Culture - [facility] [place] Count Organism: 1.1 Antibiotic Interpretation KAL Status [facility] Gentamicin S F Urine [facility] Testing performed at [facility] O:ESCCOL Isolated Urine Culture - [facility] [place] Count Organism: 1.1 Antibiotic Interpretation KAL Status [facility] Levofloxacin R F U[facility] Testing performed at [facility] O:ESCCOL Isolated Urine Culture - [facility] [place] Count Organism: 1.1 Antibiotic Interpretation KAL Status [facility] Meropenem S F Urine [facility] Testing performed at [facility] O:ESCCOL Isolated Urine Culture - [facility] [place] Count Organism: 1.1 Antibiotic Interpretation KAL Status [facility] Meropenem/Vaborbactam S F Urine [facility] Testing performed at [facility] O:ESCCOL Isolated Urine Culture - [facility] [place] Count Organism: 1.1 Antibiotic Interpretation KAL Status [facility] Nitrofurantoin S F Urine Culture [facility] Testing performed at [facility] O:ESCCOL Isolated Urine Culture - [facility] [place] Count Organism: 1.1 Antibiotic Interpretation KAL Status [facility] Tetracycline S F Urine [facility] Testing performed at [facility] O:ESCCOL Isolated Urine Culture - [facility] [place] Count Organism: 1.1 Antibiotic Interpretation KAL Status [facility] Tigecycline S F Urine Culture [facility] Testing performed at [facility] O:ESCCOL Isolated Urine Culture - [facility] [place] Count Organism: 1.1 Antibiotic Interpretation KAL Status [facility] Tobramycin S F Urine [facility] Testing performed at [facility] O:ESCCOL Isolated Urine Culture - [facility] [place] Count Organism: 1.1 Antibiotic Interpretation KAL Status [facility] Ampicillin/Sulbactam R F Urine Culture [facility] Testing performed at [facility] O:ESCCOL Isolated Urine Culture - [facility] [place] Count Organism: 1.1 Antibiotic Interpretation KAL Status Urine [facility] Cefazolin S F Urine Culture [facility] Testing performed at [facility] O:ESCCOL Isolated Urine Culture - [facility] [place] Count Organism: 1.1 Antibiotic Interpretation KAL Status Urine [facility] Cefepime S F Urine Culture [facility] Testing performed at [facility] O:ESCCOL Isolated Urine Culture - [facility] [place] Count Organism: 1.1 Antibiotic Interpretation KAL Status Urine [facility] Ceftriaxone S F Urine Culture [facility] Testing performed at [facility] O:ESCCOL Isolated Urine Culture - [facility] [place] Count Organism: 1.1 Antibiotic Interpretation KAL Status Urine [facility] Cefuroxime S F Urine Culture [facility] Testing performed at [facility] O:ESCCOL Isolated Urine Culture - [facility] [place] Count Organism: 1.1 Antibiotic Interpretation KAL Status Urine [facility] Piperacillin/Tazoba ctam S F Urine Culture [facility] Testing performed at [facility] O:ESCCOL Isolated Urine Culture - [facility] [place] Count Organism: 1.1 Antibiotic Interpretation KAL Status U[facility] Trimethoprim/Sulfa S F Urine Culture [facility] Testing performed at [facility] O:ESCCOL Isolated Urine Culture - [facility] [place] Count Organism: 1.1 Antibiotic Interpretation KAL Status Performing Lab: see note ML - [facility] LB SEE REPORT - Food Tester Id information not found for OBX-specific assistant producer legend [email or web address] Reviewed date:03/06/2025 09:53:01 AM Interpretation: Performing Lab: Notes/Report: [facility] , Magnesium 1.9 1.8-2.4 mg/dL Performing Lab: see note ML - [facility] LB PROF 14(COMP METB) Reviewed date:03/06/2025 09:53:01 AM Interpretation: Performing Lab: Notes/Report: [facility] , Sodium 137 136-145 mmol/L Potassium 5.6 3.5-5.1 mmol/L Chloride 104 98-107 mmol/L Carbon Dioxide 23.1 21.0-32.0 mmol/L Anion Gap 15.5 Glucose 216 74-106 mg/dL Blood Urea Nitrogen 32.0 7.0-18.0 mg/dL Creatinine 1.54 0.55-1.02 mg/dL Estimated GFR ( Madiha 41 >=60 mL/min/1.73m 2 Estimated GFR (Non- Ana Luisa 34 >=60 mL/min/1.73m 2 BUN Creatinine Ratio 20.8 Calcium 7.9 8.5-10.1 mg/dL Bilirubin Total 0.9 0.2-1.0 mg/dL Aspartate Amino Transferase 25 15-37 U/L Alanine Aminotransferase 15 14-59 U/L Alkaline Phosphatase 114 46-116 U/L Total Protein 6.5 6.4-8.2 g/dL Albumin Level 2.7 3.4-5.0 g/dL Globulin 3.8 Albumin Globulin Ratio 0.7 Performing Lab: see note ML - [facility] LB AMMONIA Reviewed date:03/07/2025 09:11:26 PM Interpretation: Performing Lab: Notes/Report: [facility] , Ammonia 68 11-32 umol/L RESULTS CALLED TO MARIA C HARGROVE RN @BY Zo Juarez at 0636 Performing Lab: see note ML - [facility] LB PROF 14(COMP METB) Reviewed date:03/07/2025 09:11:26 PM Interpretation: Performing Lab: Notes/Report: [facility] , Sodium 137 136-145 mmol/L Potassium 5.3 3.5-5.1 mmol/L Chloride 104 98-107 mmol/L Carbon Dioxide 22.9 21.0-32.0 mmol/L Anion Gap 15.4 Glucose 136 74-106 mg/dL Blood Urea Nitrogen 41.0 7.0-18.0 mg/dL Creatinine 1.71 0.55-1.02 mg/dL Estimated GFR ( Madiha 36 >=60 mL/min/1.73m 2 Estimated GFR (Non- Ana Luisa 30 >=60 mL/min/1.73m 2 BUN Creatinine Ratio 24.0 Calcium 8.2 8.5-10.1 mg/dL Bilirubin Total 2.0 0.2-1.0 mg/dL Aspartate Amino Transferase 32 15-37 U/L Alanine Aminotransferase 13 14-59 U/L Alkaline Phosphatase 115 46-116 U/L Total Protein 6.5 6.4-8.2 g/dL Albumin Level 2.8 3.4-5.0 g/dL Globulin 3.7 Albumin Globulin Ratio 0.8 Performing Lab: see note ML - The [facility] LB CBC AUTO DIFF Reviewed date:03/11/2025 08:05:20 PM Interpretation: Performing Lab: Notes/Report: [facility] , White Blood Count 4.6 4.0-11.0 10 3/uL Red Blood Count 3.68 4.20-5.40 10 6/uL Hemoglobin 8.8 12.0-16.0 g/dL Hematocrit 30.6 36.0-48.0 % Mean Corpuscular Volume 83.2 81.0-99.0 fL Mean Corpuscular Hemoglobin 23.9 26.7-34.0 pg Mean Corpuscular HGB Conc 28.8 29.9-35.2 g/dL Red Cell Distribution Width 18.8 11.0-15.0 % Platelet Count 144 150-450 10 3/uL Mean Platelet Volume 10.7 9.5-13.5 fL Neutrophils Percent Auto 59.0 43.0-75.0 % Lymphocytes Percent Auto 28.1 20.5-60.0 % Monocytes Percent Auto 8.0 1.7-12.0 % Eosinophils Percent Auto 4.1 0.9-7.0 % Basophils Percent Auto 0.6 0.2-2.0 % Immature Granulocytes Pct Auto 0.2 0.0-0.5 % Neutrophils Absolute Auto 2.7 1.4-6.5 10 3/uL Lymphocytes Absolute Auto 1.3 1.2-3.8 10 3/uL Monocytes Absolute Auto 0.4 0.3-0.8 10 3/uL Eosinophils Absolute Auto 0.2 0.0-0.7 10 3/uL Basophils Absolute Auto 0.0 0.0-0.1 10 3/uL Immature Granulocytes Abs Auto 0.01 0.00-0.03 10 3/uL Performing Lab: see note ML - [facility] LB XR chest 2V Reviewed date:12/30/2024 11:28:24 AM Interpretation: Performing Lab: Notes/Report: Source Facility: [place] [address] [place] [address] XRay Report Signed Patient: CONNIE BRIAN MR#: [id number] : 1955 Acct:[id number] Age/Sex: 69 / F ADM Date: 12/28/24 Loc: ER Attending Dr: Ordering Physician: Vicente Salomon Date of Service: 12/28/24 Procedure(s): XR chest 2V Accession Number(s): [id number] cc: Harry Valencia M.D.; Vicente Salomon [place] [address] Patient Name: CONNIE BRIAN MRN: [id number] date: 1955 Sex: F Assigned Patient Location: ED.MAIN Current Patient Location: ER Accession/Order Number: [id number] Exam Date: 12/28/2024 11:41 Report Date: 12/28/2024 12:03 At the request of: VICENTE SALOMON Procedure: XR chest 2V EXAMINATION: XR chest 2V HISTORY: shortness of breath COMPARISON: 11/14/2024 TECHNIQUE: PA and lateral FINDINGS: LUNGS: Moderate left basilar infiltrate completely obscures the hemidiaphragm and partially obscures the heart border VASCULATURE: Mildly increased pulmonary vasculature. PLEURA: Tiny right and mild left pleural effusions CARDIAC: No cardiomegaly or cardiac silhouette abnormality. MEDIASTINUM: No visible mass or adenopathy. BONES: No fracture or visible bone lesion. OTHER: Negative. XR/XR chest 2V IMPRESSION: Moderate left basilar infiltrate, atelectasis versus pneumonia Mild pulmonary vascular congestion. Electronically authenticated by: MAISHA ALBRIGHT Date: 12/28/2024 12:03 Dictated By: Maisha Albright M.D. Signed By: 12/28/24 1206 DD/ 1203 TD/TT: Watch Crystal Molder: [address] [address] XRay Report Signed Patient: STEPHEN BRIAN MR#: [id number] : 1955 Acct:[id number] Age/Sex: 69 / F ADM Date: 12/28/24 Loc: ER Attending Dr: Ordering Physician: Vicente Salomon Date of Service: 12/28/24 Procedure(s): XR chest 2V Accession Number(s): [id number] cc: Harry Valencia M.D. ; Vicente Salomon [address] [address] Patient Name: CONNIE BRIAN MRN: [id number] date: 1955 Sex: F Assigned Patient Location: ED.MAIN Current Patient Loca tion: ER Accession/Order Numb er: [id number] Exam Date: 12/28/2024 11:41 Report Date: 12/28/2024 12:03 At the request of: VICENTE SALOMON Procedure: XR chest 2V EXAMINATION: XR chest 2V HISTORY: shortness o f breath COMPARISON: 11/14/2024 TECHNIQUE: PA and lateral FINDINGS: LUNGS: Moderate left basilar infiltrate completely obscures the hemidiaphragm and partially obscur es the heart border VASCULATURE: Mildly increased pulmonary vasculature. PLEURA: Tiny right a nd mild left pleural effusions CARDIAC: No cardiome jeromy or cardiac silhouette abnormality. MEDIASTINUM: No visi ble mass or adenopathy. BONES: No fracture o r visible bone lesion. OTHER: Negative. X R/XR chest 2V IMPRESSION: Moderate left basila r infiltrate, atelectasis versus pneumonia Mild pulmonary vascu lar congestion. Electronically authenticated by: MAISHA ALBRIGHT Date: 12/28/2024 12:03 Dictated By: Prasanna Albright M.D. Signed By: 12/28/24 1206 DD/ 1203 TD/TT: Watch Crystal Molder: Type and Screen Reviewed date:12/30/2024 05:22:56 PM Interpretation: Performing Lab: Notes/Report: [facility] , Blood Type O Positive Antibody Screen NEGATIVE Packed Red Blood Cells Reviewed date:12/30/2024 05:22:56 PM Interpretation: Performing Lab: Notes/Report: Packed Red Blood Cells [id number] ON RC TRANSFUSED 12/28/24 1318 [id number] ON RC TRANSFUSED 12/28/24 1721 [id number] OP RC TRANSFUSED 12/30/24 1045 [id number] OP RC TRANSFUSED 12/29/24 1103 [id number] OP RC TRANSFUSED 12/29/24 1329 [id number] OP RC NOT AVAILABLE Prothrombin Time INR Reviewed date:12/30/2024 11:28:24 AM Interpretation: Performing Lab: Notes/Report: [facility] , Prothrombin Time 13.8 9.0-11.6 sec INR 1.34 DESIRED INR: 2.0-3.0 CONDITIONS NOT LISTED BELOW 2.5-3.5 FOR PROSTHETIC HEART VALVE REPLACEMENT 2.5-3.5 RECURRENT THROMBOSIS Performing Lab: see note ML - [facility] LB PTT Reviewed date:12/30/2024 11:28:24 AM Interpretation: Performing Lab: Notes/Report: [facility] , Partial Thromboplastin Time 33.9 22.3-36.2 sec Performing Lab: see note - [facility] LB CBC AUTO DIFF Reviewed date:12/30/2024 11:28:24 AM Interpretation: Performing Lab: Notes/Report: [facility] , White Blood Count 6.2 4.0-11.0 10 3/uL Red Blood Count 2.37 4.20-5.40 10 6/uL 2+ ANISOCYTOSIS 2+ HYPOCHROMIA 1+ POLYCHROMIA Hemoglobin 5.2 12.0-16.0 g/dL RESULTS LOREDO D TO ISAI CARRERA RN AT 1149 Hematocrit 19.3 36.0-48.0 % RESULTS CALLED TO ISAI CARRERA RN AT 1149 Mean Corpuscular Volume 81.4 81.0-99.0 fL Mean Corpuscular Hemoglobin 21.9 26.7-34.0 pg Mean Corpuscular HGB Conc 26.9 29.9-35.2 g/dL Red Cell Distribution Width 19.1 11.0-15.0 % Platelet Count 239 150-450 10 3/uL Mean Platelet Volume 11.6 9.5-13.5 fL Neutrophils Percent Auto 58.3 43.0-75.0 % Lymphocytes Percent Auto 31.5 20.5-60.0 % Monocytes Percent Auto 9.1 1.7-12.0 % Eosinophils Percent Auto 0.3 0.9-7.0 % Basophils Percent Auto 0.5 0.2-2.0 % Immature Granulocytes Pct Auto 0.3 0.0-0.5 % Neutrophils Absolute Auto 3.6 1.4-6.5 10 3/uL Lymphocytes Absolute Auto 1.9 1.2-3.8 10 3/uL Monocytes Absolute Auto 0.6 0.3-0.8 10 3/uL Eosinophils Absolute Auto 0.0 0.0-0.7 10 3/uL Basophils Absolute Auto 0.0 0.0-0.1 10 3/uL Immature Granulocytes Abs Auto 0.02 0.00-0.03 10 3/uL Performing Lab: see note ML - [facility] LB TSH Reviewed date:09/21/2024 09:21:49 PM Interpretation: Performing Lab: Notes/Report: [facility] , Thyroid Stimulating Hormone 2.570 0.358-3.740 uIU/mL Performing Lab: see note ML - [facility] LB T4 Reviewed date:09/21/2024 09:21:49 PM Interpretation: Performing Lab: Notes/Report: [facility] , T4 Thyroxine 8.70 4.80-13.90 ug/dL Performing Lab: see note ML - [facility] LB PROF 14(COMP METB) Reviewed date:09/21/2024 09:21:49 PM Interpretation: Performing Lab: Notes/Report: [facility] , Sodium 143 136-145 mmol/L Potassium 3.9 3.5-5.1 mmol/L Chloride 107 98-107 mmol/L Carbon Dioxide 23.7 21.0-32.0 mmol/L Anion Gap 16.2 Glucose 287 74-106 mg/dL Blood Urea Nitrogen 19.0 7.0-18.0 mg/dL Creatinine 0.81 0.55-1.02 mg/dL Estimated GFR ( Madiha >60 >=60 mL/min/1.73m 2 Estimated GFR (Non- Ana Luisa >60 >=60 mL/min/1.73m 2 BUN Creatinine Ratio 23.5 Calcium 8.3 8.5-10.1 mg/dL Bilirubin Total 1.0 0.2-1.0 mg/dL Aspartate Amino Transferase 23 15-37 U/L Alanine Aminotransferase 22 14-59 U/L Alkaline Phosphatase 99 46-116 U/L Total Protein 6.6 6.4-8.2 g/dL Albumin Level 2.6 3.4-5.0 g/dL Globulin 4.0 Albumin Globulin Ratio 0.7 Performing Lab: see note ML - [facility] LB LIPID PROFILE Reviewed date:09/21/2024 09:21:49 PM Interpretation: Performing Lab: Notes/Report: [facility] , Triglycerides 111 <=150 mg/dL Cholesterol 118 <=200 mg/dL HDL Cholesterol 36 40-60 mg/dL > or =60 mg/dl - LOW CARDIOVASCULAR RISK <40 mg/dl - HIGH CARDIOVASCULAR RISK LDL Cholesterol Calculated 60.0 <100 mg/dl OPTIMAL 100-129 mg/dl NEAR OR ABOVE OPTIMAL 130-159 mg/dl BORDERLINE HIGH 160-189 mg/dl HIGH >190 mg/dl VERY HIGH VLDL CHOLESTEROL 22.2 Chol HDL Ratio 3.3 3.3 - 4.4 LOW RISK 4.4 - 7.1 AVERAGE RISK 7.1 - 11.0 MODERATE RISK >11.0 HIGH RISK Performing Lab: see note ML - [facility] FREE T3 Reviewed date:09/21/2024 09:21:49 PM Interpretation: Performing Lab: Notes/Report: [facility] , Free T3 2.28 2.18-3.98 pg/mL Performing Lab: see note ML - [facility] LB Reason For Referral Diagnosis 1 Blood loss anemia (D 50.0) Referral Organization [facility] Referring Provider First Name Shaq Referring Provider Last Name Erik Referring Provider [facility] Referred Provider Manoj Damon Referred Provider Specialty General Surg josé antonio Referral Priority Routine Diagnosis 1 Unspecified cirrhosi s of liver (K74.60) Referral Organization [facility] Referring Provider First Name Shaq Referring Provider Last Name gudelia Referring Provider [facility] Referred Organization [facility] Referred Provider Blanca Mak Referred Address [address] [place] [address],[address],[phone], Referred Provider Specialty Gastroentero logy Referral Priority Routine Diagnosis 1 Blood loss anemia (D 50.0) Referral Organization [facility] Referring Provider First Name Shaq Referring Provider Last Name [facility] Referring Provider [facility] Referred Provider Jessu Emerson Referred Provider Specialty Gastroentero logy Referral Priority Routine Medications Medication SIG (Take, Route, Frequency, Duration) Notes Start Date End Date Status Amaryl 4 MG Orally twice a day Active Spironolactone 25 MG 2 tablets Orally daily for 3 days 11/26/2024 Active Simvastatin 20 mg TAKE 1 TABLET DAILY Active Blood Glucose Meter -- Use meter to monitor glucose daily DX E11.9 for 365 days 11/20/2024 Active Tamsulosin HCl 0.4 MG 1 capsule Orally Once a day for 30 days 07/03/2024 Active Amiodarone HCl 200 MG 1 tablet Oral Once a day for 90 days Active Sucralfate 1 GM 1 tablet on an empty stomach Orally qid for 30 days 09/27/2024 Active Ondansetron 4 MG 1 tablet on the tongue and allow to dissolve Orally qid for 5 days 11/22/2024 Active Mupirocin 2 % 1 application Externally Twice a day for 5 days 12/17/2024 Active Ramipril 10 mg TAKE 1 CAPSULE DAILY Active Pantoprazole Sodium 40 mg 1 tablet oral q day Active Motrin 800 TABLETS Orally every 6 hrs PRN Active metFORMIN HCl 500 mg Take 2 tablets orally twice daily for 90 days Active Januvia 100 MG 1 tablet Orally Once a day for 30 day(s) 01/06/2024 Active Hyoscyamine Sulfate 0.125 MG 2 tabs SL SL every 4 hrs PRN abd pain 07/03/2024 Active Lancets 33G - Use 1 lancet to poke finger daily DX E11.9 for 90 days 11/20/2024 Active Lancet Devices - Use 1 lancet daily to poke finger DX E11.9 for 90 days 12/13/2024 Active Furosemide 20 MG 1 tablet Orally Once a day for 30 day(s) 12/25/2024 Active Eliquis 5 MG 1 tablet Orally Twice a day for 90 days 05/27/2023 Active hydroCHLOROthiazide 25 MG 1 tablet in the morning Orally Once a day for 3 days 11/22/2024 Active Glucosamine 2000 Orally Once a day Active Test Strips - Use 1 strip to monitor glucose daily DX E11.9 for 90 days 11/20/2024 Active Digoxin 250 MCG 1 tablet Orally Once a day for 90 days 11/22/2024 Active Venlafaxine HCl ER 75 mg TAKE 1 CAPSULE DAILY Active tiZANidine HCl 4 MG 1 in am, 1 at lunch, 2 at hs Orally tid for 30 days 11/26/2024 Active Magnesium 400 MG 1 capsule Orally Twice a day for 90 days Active Hydrocortisone 2.5 % 1 application Externally Once a day 03/14/2025 Active Hydrocortisone Perry-Pramoxine 1-1 % 1 application Externally Three times a day Try this - if not approved - do the plain hydrocortisonen please and thank you 03/14/2025 Active Diclofenac Sodium 75 mg TAKE 1 TABLET TWICE A DAY PRN Active Social History Alcohol Screen (Audit-C) Question Answer Notes Did you have a drink containing alcohol in the p ast year? No Points 0 Interpretation Negative AUDIT-C (Standard) Question Answer Notes Did you have a drink containing alcohol in the p ast year? No Points 0 Interpretation Negative Problems Problem Type SNOMED Code ICD Code Onset Dates Problem Status W/U Status Risk Notes Problem 394539630 Anemia, unspecif ied (D64.9) Active confirmed Problem 745058836 Hyperlipidemia, unspecified (E78.5) Active confirmed Problem Hypomagnesemia (770568065) Hypomagnesemia (E83.42) Active confirmed Problem Palpitations (67278395) Palpitations (R00.2) Active confirmed Problem Hypertension (41094242) Hypertension (I10) Active confirmed Problem Congestive heart failure (30850543) CHF (congestive heart failure) (I50.9) Active confirmed Problem Dyslipidemia (482631518) Dyslipidemia (E78.5) Active confirmed Problem Atrial fibrillation (disorder) (84595550) Afib (I48.91) Active confirmed Problem Chronic kidney disea se (103986601) Chronic kidney disease (N18.9) Active confirmed Problem Anemia (813461357) Anemia (D64.9) Active confir med Problem Essential hypertensi on (98986574) Benign essential HTN (I10) Active confirmed Problem Sleep apnea (47086684) 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) Active confirmed Problem Atrial fibrillation (27009604) Atrial fibrillation (I48.91) Active confirmed Problem Type 2 diabetes mellitus (10199428) DM type 2 (diabetes mellitus, type 2) (E11.9) Active confirmed Problem Disorder of lumbar disc (941615813) Lumbar disc disease (M51.9) Active confirmed Problem Cirrhotic (766564315) Cirrhosis (K74.60) Active confirmed Problem 50961409 Acute bronchitis , unspecified organism (J20.9) Active confirmed Problem Atrial fibrillation (27135153) Atrial fibrillation with RVR (I48.91) Active confirmed Problem Cataract (367408452) Cataract (H26.9) Active co nfirmed Problem Chest wall pain (530152091) Chest wall pain (R07.89) Active confirmed Problem Anemia due to chroni c blood loss (513883512) Blood loss anemia (D50.0) Active confirmed Problem 144320732 Rotator cuff tea r, left (M75.102) Active confirmed Problem Fluid overload (74145940) Fluid overload (E87.70) Active confirmed Problem Diverticular disease of colon (025007692) Diverticula of colon (K57.30) Active confirmed Problem Cervical strain (234425351) Cervical strain (S16.1XXA) Active confirmed Problem Dry eye syndrome (47739998) Dry eye syndrome (H04.129) Active confirmed Problem Altered mental statu s (596345835) Altered mental state (R41.82) Active confirmed Problem Gastrointestinal hemorrhage (56924465) Upper GI bleed (K92.2) Active confirmed Problem 327572628 Biceps tendiniti s of left shoulder (M75.22) Active confirmed Problem Cirrhosis - non-alcoholic (792295436) Cirrhosis of liver with ascites (K74.60) Active confirmed Problem Essential hypertensi on (03153815) BP (high blood pressure) (I10) Active confirmed Problem hypercholesterolemia (disorder) (20494240) Hypercholesteremia (E78.00) Active confirmed Problem 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, unspecified care home insulin use status (E11.3293) Active confirmed Problem 124176843 Enterocolitis du e to Clostridium difficile, not specified as recurrent (A04.72) Active confirmed Problem Type II diabetes mellitus without complication (533470548) Diabetes (E11.9) Active confirmed Problem Diabetes mellitus (64498292) Diabetes mellitus (E11.9) Active confirmed Vital Signs Temperature 98.9 degrees Fahrenheit 12/17/2024 Blood pressure diastolic 56 mm Hg 03/14/2025 Height 66 in 03/14/2025 Blood pressure systolic 152 mm Hg 03/14/2025 Weight 216.6 lbs 03/14/2025 BMI 34.96 kg/m2 03/14/2025 Encounters Encounter Location Date Provider Diagnosis [facility] [address] [place] [address] 11/12/2024 Shaq Hoy Cervical strain S16. 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 and Cervical strain S16.1XXA [facility] [address] [place] [address] 12/17/2024 Shaq Hoy Palpitations R00.2 ; Hypertension I10 ; Atrial fibrillation I48.91 and DM type 2 (diabetes mellitus, type 2) E11.9 [facility] [address] [place] [address] 12/25/2024 Shaq Hoy Chronic kidney disea se N18.9 ; Hypertension I10 and Fluid overload E87.70 [facility] [address] [place] [address] 12/28/2024 Shaq Hoy Hypertension I10 and Fluid overload E87.70 [facility] [address] [place] [address] 01/04/2025 Shaq Hoy Upper GI bleed K92.2 and Cirrhosis K74.60 [facility] [address] [place] [address] 03/14/2025 Shaq Hoy Gastroenteritis K52. 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 89 [facility] [address] [facility] [place] [address] 06/01/2024 Shaq Hoy Chest wall pain R07. 89 [facility] [address] [place] [address] 06/04/2024 Shaq Hoy Chest wall pain R07. 89 [facility] [address] [facility] [place] [address] 06/24/2024 Shaq Valencia [facility] [address] [facility] [place] [address] 07/03/2024 Shaq Valencia Chronic kidney disea se N18.9 [facility] [address] [facility] [place] [address] 07/09/2024 Shaq Valencia [facility] [address] [facility] [place] [address] 08/31/2024 Shaq Valencia [facility] [address] [facility] [place] [address] 09/14/2024 Shaq Valencia Chest wall pain R07. 89 [facility] [address] [facility] [place] [address] 09/17/2024 Shaq Valencia Hypertension I10 ; Chronic kidney disease N18.9 ; DM type 2 (diabetes mellitus, type 2) E11.9 ; Atrial fibrillation I48.91 and Chest wall pain R07.89 [facility] [address] [facility] [place] [address] 09/21/2024 Shannan Swain [facility] [address] [facility] [place] [address] 09/23/2024 Shaq Valencia [facility] [address] [facility] [place] [address] 09/29/2024 Shaq Mauroy Anemia, unspecified D64.9 [facility] [address] [facility] [place] [address] 10/01/2024 Shaq Mauroy Anemia, unspecified D64.9 [facility] [address] [facility] [place] [address] 10/07/2024 Shaq Valencia [facility] [address] [facility] [place] [address] 10/08/2024 Shaq Valencia [facility] [address] [facility] [place] [address] 11/19/2024 Shaq Valencia Medication managemen t Z79.899 [facility] [address] [facility] [place] [address] 11/22/2024 Shaq Hoy [facility] [address] [facility] [place] [address] 11/22/2024 Shaq Mauroy [facility] [address] [facility] [place] [address] 11/23/2024 Shaq Mauroy [facility] [address] [facility] [place] [address] 11/26/2024 Shaq Mauroy [facility] [address] [facility] [place] [address] 11/26/2024 Shaq y [facility] [address] [facility] [place] [address] 11/30/2024 Shaq Hoy Cervical strain S16. 1XXA [facility] [address] [facility] [place] [address] 12/13/2024 Shaq Valencia [facility] [address] [facility] [place] [address] 12/26/2024 Shaq Hoy Chest wall pain R07. 89 [facility] [address] [facility] [place] [place] [address] 12/28/2024 Shaq Hoy Chronic kidney disea se N18.9 [facility] [address] [facility] [place] [address] 12/31/2024 Shaq Mauroy [facility] [address] [facility] [place] [address] 12/31/2024 Shaq Hoy Unspecified cirrhosi s of liver K74.60 and Gastrointestinal hemorrhage, unspecified K92.2 [facility] [address] [facility] [place] [address] 01/02/2025 Shaq y [facility] [address] [facility] [place] [address] 01/04/2025 Shaq Hoy Blood loss anemia D5 0.0 and Cirrhosis K74.60 [facility] [address] [facility] [place] [address] 03/04/2025 Shaq Njgudelia Anemia D64.9 ; Hypertension I10 and Blood loss anemia D50.0 [facility] [address] [facility] [place] [address] 03/05/2025 Shaq Valencia [facility] [address] [facility] [place] [address] 03/05/2025 Shaq Valencai [facility] [address] [facility] [place] [address] 03/07/2025 Shaq Njy Upper GI bleed K92.2 and Acute kidney failure, unspecified N17.9 [facility] [address] [facility] [place] [address] 03/09/2025 Shaq Valencia [facility] [address] [facility] [place] [address] 03/11/2025 Shaq Valencia [facility] [address] [facility] [place] [address] 03/18/2025 Shaq Valencia [facility] [address] [facility] [place] [address] 03/25/2025 Shaq Njgudelia [facility] [address] [place] [facility] [place] [address] 04/02/2025 Shaq Valencia Chest wall pain R07. 89 [facility] [address] [facility] [place] [address] 04/10/2025 Shaq Valencia Assessments Encounter Date Diagnosis (ICD Code) Assessment Notes Treatment Notes Treatment Clinical Notes Section Notes 12/28/2024 Hypertension (ICD-10 - I10) adm itting for fluid overload 12/28/2024 Fluid overload (ICD-10 - E87.70) 01/04/2025 Upper GI bleed (ICD-10 - K92.2) 01/04/2025 Cirrhosis (ICD-10 - K74.60) referral to gi 03/14/2025 Gastroenteritis (ICD-10 - K52.9) Get plenty of rest. Stay hydrated by sucking on ice chips or taking small sips of water. You can also try drinking clear soda, clear broths or noncaffeinated sports drinks. Stop eating solid foods for a few hours to let your stomach settle. East back into eating by eating bland, axmb-wy-ovsarq foods like crackers, toast, gelatin, bananas, rice and chicken. Try to avoid foods/substances including dairy products, caffeine, alcohol, nicotine and fatty or highly seasoned foods. Medications such as ibuprofen or tylenol can make your stomach more upset, so use sparingly if at all. Also avoid ecom-qpx-nswzivz anti-diarrheal medications because it can make it harder for your body to eliminate the virus. 03/14/2025 Cirrhosis (ICD-10 - K74.60) 12/17/2024 Palpitations (ICD-10 - R00.2) 12/17/2024 Hypertension (ICD-10 - I10) 12/25/2024 Chronic kidney disease (ICD-10 - N18.9) 12/25/2024 Hypertension (ICD-10 - I10) 05/04/2024 Acute bronchitis, unspecified organism (ICD-10 - J20.9) Rest and drink more liquids, especially water. You may use a humidifier or vaporizer to help keep the drainage moist. Iinh-rss-igesrkk Nasal Saline may help the stuffy and runny nose. Use Ibuprofen and or Tylenol as needed for fever, chills, body aches or pain. Children 5 years old should not be given fcsv-luu-phvhoxx cough and cold medications such as guaifenesin and dextromethorphan. If you're over age 5, you may try rnnn-dms-penrwpq cold medications such as guaifenesin and dextromethorphan, or multi-symptom cold reliever such as Dayquil to help reduce the symptoms. Antibiotics have been prescribed. You should take these until completed and follow the directions. Antibiotics can sometimes cause upset stomach, and in rare cases, serious allergic reactions or serious gastrointestinal problems. If you start having severe abdominal pain, severe vomiting, or bloody diarrhea, you should be reevaluated by your physician or urgent care immediately. Follow up with your Primary Care Provider or return to clinic if symptoms do not improve within 3-5 days. If you develop severe symptoms such as shortness of breath, repeated vomiting, coughing up blood, or chest pain you should go to the emergency room or call 911 06/22/2024 Acute bronchitis, unspecified organism (ICD-10 - J20.9) Rest and drink more liquids, especially water. You may use a humidifier or vaporizer to help keep the drainage moist. Aitn-hzt-ppxzssq Nasal Saline may help the stuffy and runny nose. Use Ibuprofen and or Tylenol as needed for fever, chills, body aches or pain. Children 5 years old should not be given pnwa-itc-evwuxhm cough and cold medications such as guaifenesin and dextromethorphan. If you're over age 5, you may try dtnk-ovo-dpjhgnv cold medications such as guaifenesin and dextromethorphan, or multi-symptom cold reliever such as Dayquil to help reduce the symptoms. Antibiotics have been prescribed. You should take these until completed and follow the directions. Antibiotics can sometimes cause upset stomach, and in rare cases, serious allergic reactions or serious gastrointestinal problems. If you start having severe abdominal pain, severe vomiting, or bloody diarrhea, you should be reevaluated by your physician or urgent care immediately. Follow up with your Primary Care Provider or return to clinic if symptoms do not improve within 3-5 days. If you develop severe symptoms such as shortness of breath, repeated vomiting, coughing up blood, or chest pain you should go to the emergency room or call 911 09/27/2024 Atrial fibrillation (ICD-10 - I48.91) 09/27/2024 Hypertension (ICD-10 - I10) 11/12/2024 Cervical strain (ICD-10 - S16.1XXA) 11/26/2024 Palpitations (ICD-10 - R00.2) 11/26/2024 Atrial fibrillation (ICD-10 - I48.91) still some patel 06/01/2024 Chest wall pain (ICD-10 - R07.89) 06/01/2024 Chest wall pain (ICD-10 - R07.89) 06/04/2024 Chest wall pain (ICD-10 - R07.89) 07/03/2024 Chronic kidney disease (ICD-10 - N18.9) 09/14/2024 Chest wall pain (ICD-10 - R07.89) 09/17/2024 Hypertension (ICD-10 - I10) 09/17/2024 Chronic kidney disease (ICD-10 - N18.9) 09/29/2024 Anemia, unspecified (ICD-10 - D64.9) 10/01/2024 Anemia, unspecified (ICD-10 - D64.9) 11/19/2024 Medication management (ICD-10 - Z79.899) 11/30/2024 Cervical strain (ICD-10 - S16.1XXA) 12/26/2024 Chest wall pain (ICD-10 - R07.89) 12/28/2024 Chronic kidney disease (ICD-10 - N18.9) 12/31/2024 Unspecified cirrhosis of liver (ICD-10 - K74.60) 12/31/2024 Gastrointestinal hemorrhage, unspecified (ICD-10 - K92.2) 01/04/2025 Blood loss anemia (ICD-10 - D50.0) 01/04/2025 Cirrhosis (ICD-10 - K74.60) 03/04/2025 Anemia (ICD-10 - D64.9) 03/04/2025 Hypertension (ICD-10 - I10) 03/07/2025 Upper GI bleed (ICD-10 - K92.2) 03/07/2025 Acute kidney failure, unspecified (ICD-10 - N17.9) 04/02/2025 Chest wall pain (ICD-10 - R07.89) 03/04/2025 Blood loss anemia (ICD-10 - D50.0) 09/17/2024 DM type 2 (diabetes mellitus, type 2) (ICD-10 - E11.9) 11/26/2024 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, unspecified care home insulin use status (ICD-10 - E11.3293) 09/27/2024 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, 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 insulin use status (ICD-10 - E11.3293) 12/25/2024 Fluid overload (ICD-10 - E87.70) 12/17/2024 Atrial fibrillation (ICD-10 - I48.91) 12/17/2024 DM type 2 (diabetes mellitus, type 2) (ICD-10 - E11.9) 09/27/2024 Blood loss anemia (ICD-10 - D50.0) needs EGD 11/26/2024 Cervical strain (ICD-10 - S16.1XXA) 09/17/2024 Atrial fibrillation (ICD-10 - I48.91) 09/17/2024 Chest wall pain (ICD-10 - R07.89) Plan Of Treatment Pending Test Test Name Order Date CMP (COMPLETE METABOLIC PANEL) DIGOXIN (LANOXIN) 11/19/2024 CARDIO Holter Event Monitor 4 weeks 05/2023 COMPREHENSIVE METABOLIC PROFILE WITH GFR 09/17/2024 OCCULT BLOOD, FECAL, IMMUNOASSAY 024 CMP - Comprehensive Metabolic Panel 02/19 CMP - Comprehensive Metabolic Panel 02/19 PT and PTT 03/04/2025 CBC W/AUTO DIFF 03/07/2025 CBC W/AUTO DIFF 10/01/2024 CBC W/AUTO DIFF 09/17/2024 BNP 11/19/2024 CBC AUTO DIFF 11/19/2024 CBC AUTO DIFF 03/14/2025 Covid-19 PCR (CVDTBH) 06/22/2024 TYPE AND SCREEN 09/27/2024 CT CHEST WO CON 01/06/2024 MRI CSPINE WO CON 11/26/2024 US ABD 03/14/2025 XR KUB 1 VIEW 07/03/2024 XR RIBS LT PA CH 01/06/2024 THYROID PANEL (T4/TSH/FREE T3) XR cervical spine 2-3V 11/12/2024 Lipid Panel 09/17/2024 MRI Cervical Spine w/o contrast * 2024 Insurance Providers Payer Name Payer Address Payer Phone Subscriber Number Group Number Insured Name Patient Relationship to Insured Coverage Start Date Coverage End Date [place] [address] [place] [address] [phone] [id number] Connie Brian Self - patient is the insured Medications Administered Medication Instructions Date of Administration Dosage Notes Dexamethasone, 4mg/mL 11/12/2024 12 mg Ketorolac Tromethamine 11/12/2024 60 mg Medical (General) History Medical History History ICD Code Uterine Cancer Palpitations R00.2 Type 2 diabetes mellitus wit h mild nonproliferative retinopathy of both eyes without macular edema, unspecified care home insulin use status E11.3293 Cataract H26.9 Dry eye syndrome H04.129 Lumbar disc disease M51.9 Hypercholesteremia E78.00 Hypertension I10 Diverticula of colon K57.30 Chronic kidney disease N18.9 Atrial fibrillation I48.91 Kidney stone N20.0 DUB (dysfunctional uterine bleeding) N93 .8 Anemia D64.9 Right rib fracture S22.31XA Injury to Spleen Surgical History Surgery Date(Month/Year) Hystertectomy 2010 Appendix 1984 Gallbladder 1985 Tonsils and Adenoids 1960 Csection 1987 Hernia Rotator Cuff Repair 2015 Herniorrhaphy, Dr. Mullins EGD and Colonoscopy- dr Damon 11/01/2024 Hospitalization History Reason Date(Month/Year) A-Fib 06/12 See Above low HGB 02/2025 GI bleed 01/15 UTI, A-fib, C-diff 11/13
--- OUTSIDE RECORDS SUMMARY | 2025-04-17 11:17 | XMS_ITS | Encounter Summary ---
Author Organization [facility] Address [address] [place] [address] Care Team Providers Care Body Designer Name Role Phone Harry Valencia MD Primary Care Provider [phone] Encounter Details Date Type Department Care Team (Late st Contact Info) Description 03/06/2025 Orders Only [facility] [address] [place] [address] Nubia Martin MD [address] [place] [address] Social History Tobacco Use Types Packs/Day Years [...] on file documented as of this encounter Plan of Treatment Upcoming Encounters Date Type Department Care Team (Latest Contact Info) Description 04/23/2025 11:45 AM EDT Office Visit [facility] [address] [place] [facility] [place] [address] Rogers Catalan MD [address] [place] [address] 06/13/2025 8:00 AM EDT Hospital Encounter [facility] [address] [facility] [place] [address] Rogers Catalan MD [address] [facility] [place] [address] Paroxysmal atrial fibrillation (CMS/HCC) 06/13/2025 8:00 AM EDT - 06/13/2025 12:00 PM EDT Surgery [facility] [address] [place] [address] Rogers Catalan MD [address] [place] [address] Ablation a-fib paroxysmal [[id number]] 06/13/2025 8:00 AM EDT Appointment [facility] [place] [address] 10/16/2025 1:30 PM EST Follow-Up [facility] [address] [place] [address] Beni Gomez MD [address] [facility] [address] [facility] [place] [address] documented as of this encounter Procedures Procedure Name Priority Date/Time Associated Diagnosis Comments CARDIAC DEVICE CHECK - REMOTE - LOOP RECORDER (ILR) Routine 03/06/2025 12:00 AM EDT documented in this encounter Results * Cardiac device check - Remote loop recorder (ILR) (03/06/2025 12:00 AM EDT) Anatomical Region Laterality Modality Other 03/06/2025 Nubia Martin MD CV IMPLANTABLE CARDI AC DEVICE PROCEDURES documented in this encounter Visit Diagnoses Not on filedocumented in this encounter Care Teams Body Designer Relationship Specialty Start Date End Date Harry Valencia MD [address] [facility] [place] [address] PCP - General 06/20/23 documented as of this encounter
--- OUTSIDE RECORDS SUMMARY | 2025-04-17 11:17 | XMS_ITS | Clinical Summary ---
Author Organization [facility] tem Address [id number] [address] [place] [address] Care Team Providers Care Railroad Repairer Name Role Phone Harry Valencia MD Primary Care Provider [phone] Allergies Active Allergy Reactions Criticality Noted Date Comments Sulfa (Sulfonamide Antibiotics) 07/2019 Medications aspirin 81 mg Take 81 mg by mouth in the morning. Active glimepiride (AMARYL) 1 mg tablet Take 1 mg by mouth every morning before breakfast. Active metFORMIN (GLUCOPHAGE) 500 mg tablet Take 1 tablet by mouth in the morning and 1 tablet before bedtime. Active ramipriL (ALTACE) 5 mg capsule Take 5 mg by mouth in the morning. Active simvastatin (ZOCOR) 10 mg tablet Take 10 mg by mouth nightly. Active venlafaxine (EFFEXOR) 25 mg tablet Take 25 mg by mouth in the morning and 25 mg before bedtime. Active Encounters Date Type Department Care Team Description 04/10/2025 Travel 01/23/2025 3:54 PM EST - 01/23/2025 11:59 PM EST Hospital Encounter [facility] - Lab [address] [place] [address] Unspecified cirrhosis of liver (CMS-HCC) (Primary Dx); Other ascites Discharge Disposition: Home 01/23/2025 Travel from Last 3 Months Immunizations Immunization Administration Dates Next Due Tdap 07/20/2022 Social History Tobacco Use Types Packs/Day Years Used Date Smoking Tobacco: Never Smokeless Tobacco: Never Alcohol Use Standard Drinks/Week Comments Not Currently 0 (1 standard drink = 0.6 oz pur e alcohol) Childcare Answer Date Recorded Childcare Unknown 05/02/2019 Employment Answer Date Recorded Employment Unknown 05/02/2019 Purpose - Life Answer Date Recorded Purpose and direction in life Unknown Comments Unknown Sex and Gender Information Value Date Recorded Sex Assigned at Not on file Legal Sex Female 11:32 AM EDT Gender Identity Not on file Sexual Orientation Not on file Last Filed Vital Signs Vital Sign Reading Time Taken Comments Blood Pressure 158/78 07/20/2022 11:00 AM EDT Pulse 82 07/20/2022 11:00 AM EDT Temperature 36.9 C (98.4 F) 07/20/2022 11:00 AM EDT Respiratory Rate 18 07/20/2022 11:00 AM EDT Oxygen Saturation 97% 07/20/2022 11:00 AM EDT Inhaled Oxygen Concentration - - Weight 98.4 kg (217 lb) 07/20/2022 11:00 AM EDT Height 167.6 cm (5' 6 ) 07/20/2022 11:00 AM EDT Body Mass Index 35.02 07/20/2022 11:00 AM EDT Plan of Treatment Health Maintenance Due Date Last Done Comments Depression Screening 1968 Tobacco Screening 1968 Zoster (Shingles) Vaccine (1 of 2) 2006 Fall Risk Screening 2021 Adult BMI Screening 07/20/2023 07/20/2022 COVID-19 Vaccine (3 - 2023-2 5 season) 2024 09/29/2021, 01/25/2021 Influenza Vaccine 07/22/2025 12/29/2024, , 08/11/2021, Additional history exists DTaP,Tdap and Td Vaccines (3 - Td or Tdap) 07/20/2032 07/20/2022, 03/12/2016 Medical Devices Not on file Procedures Procedure Name Priority Date/Time Associated Diagnosis Comments PROTIME & INR Routine 04/10/2025 3:00 PM EDT Unspecified cirrhosis of liver (CMS-HCC) Other ascites COMPREHENSIVE METABOLIC PANEL Routine 04/10/2025 3:00 PM EDT Unspecified cirrhosis of liver (CMS-HCC) Other ascites COMPREHENSIVE METABOLIC PANEL Routine 01/23/2025 3:58 PM EST Unspecified cirrhosis of liver (CMS-HCC) Other ascites PROTIME & INR Routine 01/23/2025 3:58 PM EST Unspecified cirrhosis of liver (CMS-HCC) Other ascites HEPATITIS PANEL, ACUTE Routine 3:58 PM EST Unspecified cirrhosis of liver (CMS-HCC) Other ascites IDALMIS SCREEN W/ REFLEX Routine 01/23/2025 3:58 PM EST Unspecified cirrhosis of liver (CMS-HCC) Other ascites DOUBLE STRANDED DNA AB Routine 3:58 PM EST Unspecified cirrhosis of liver (CMS-HCC) Other ascites IGG Routine 01/23/2025 3:58 PM EST Unspecified cirrhosis of liver (CMS-HCC) Other ascites IRON AND TIBC Routine 01/23/2025 3:58 PM EST Unspecified cirrhosis of liver (CMS-HCC) Other ascites FERRITIN Routine 01/23/2025 3:58 PM EST Unspecified cirrhosis of liver (CMS-HCC) Other ascites CERULOPLASMIN Routine 01/23/2025 3:58 PM EST Unspecified cirrhosis of liver (CMS-HCC) Other ascites ALPHA FETOPROTEIN Routine 01/23/2025 3:5 8 PM EST Unspecified cirrhosis of liver (CMS-HCC) Other ascites CK TOTAL Routine 01/23/2025 3:58 PM EST Unspecified cirrhosis of liver (CMS-HCC) Other ascites TSH WITH REFLEX Routine 01/23/2025 3:58 PM EST Unspecified cirrhosis of liver (CMS-HCC) Other ascites HC MITOCHONDRIAL ANTIBODY EACH Routine 01/23/2025 3:58 PM EST Unspecified cirrhosis of liver (CMS-HCC) Other ascites [id number] Routine 01/23/2025 3 :58 PM EST Unspecified cirrhosis of liver (CMS-HCC) Other ascites ALDOLASE Routine 01/23/2025 3:58 PM EST Unspecified cirrhosis of liver (CMS-HCC) Other ascites GGT Routine 01/23/2025 3:58 PM EST Unspecified cirrhosis of liver (CMS-HCC) Other ascites from Last 3 Months Results * (ABNORMAL) Protime & INR (04/10/2025 3:00 PM EDT) Only the most recent of2 resultswithin the time period is included. PROTIME 17.4(H) 9.8 - 13.2 sec 04/10/2025 4:31 PM EDT [facility] INR 1.5(H) 0.9 - 1.2 04/10/2025 4:31 PM EDT [facility] Blood Venous blood / Unknown Venipuncture / Unknown 04/10/2025 3:00 PM EDT 04/10/2025 3:00 PM EDT us Beni Gomez MD LAB BLOOD ORDERABLES Final R esult [facility] [address] [place] [address], [place] [phone] * (ABNORMAL) Comprehensive metabolic panel (04/10/2025 3:00 PM EDT) Only the most recent of2 resultswithin the time period is included. SODIUM 143 134 - 146 mmol/L 04/10/2025 4:18 PM EDT [facility] POTASSIUM 4.7 3.5 - 5.0 mmol/L 04/10/2025 4:18 PM EDT [facility] CHLORIDE 109 98 - 109 mmol/L 04/10/2025 4:18 PM EDT [facility] CARBON DIOXIDE 23 22 - 32 mmol/L 04/10/2025 4:18 PM EDT [facility] ANION GAP 11 5 - 15 mmol/L 04/10/2025 4:18 PM EDT [facility] BLOOD UREA NITROGEN 21 5 - 27 mg/dL 04/10/2025 4:18 PM EDT [facility] CREATININE 0.69 0.40 - 1.00 mg/dL 04/10/2025 4:18 PM EDT [facility] Comment:METHOD TRACEABLE TO [facility] STANDARD GLUCOSE 227(H) 65 - 99 mg/dL 04/10/2025 4:18 PM EDT [facility] CALCIUM 9.5 8.5 - 10.5 mg/dL 04/10/2025 4:18 PM EDT [facility] TOTAL PROTEIN 7.0 6.0 - 8.0 g/dL 04/10/2025 4:18 PM EDT [facility] ALBUMIN 3.6 3.2 - 5.3 g/dL 04/10/2025 4:18 PM EDT [facility] ALKALINE PHOSPHATASE 98 39 - 130 U/L 04/10/2025 4:18 PM EDT [facility] AST 21 <=41 U/L 04/10/2025 4:18 PM T [facility] ALT 13 <=31 U/L 04/10/2025 4:18 PM T [facility] BILIRUBIN,TOTAL 1.4(H) 0.3 - 1.2 mg/dL 04/10/2025 4:18 PM EDT [facility] EGFR Non-Race Dependent >90 >=60 ml/min/1.7 3sq.m 04/10/2025 4:18 PM EDT [facility] Comment: Reported eGFR is based on the CKD-EPI 2020 equation that does not use a race coefficient. Blood Venous blood / Unknown Venipuncture / Unknown 04/10/2025 3:00 PM EDT 04/10/2025 3:00 PM EDT us Beni Gomez MD LAB BLOOD ORDERABLES Final R esult [facility] [address] [place] [address], * TSH with Reflex (01/23/2025 3:58 PM EST) TSH 3.87 0.49 - 4.67 uIU/mL 01/23/2025 5:35 PM EST [facility] 01/23/2025 3:58 PM EST 01/23/2025 4:05 PM EST Beni Gomez MD LAB BLOOD ORDERABLES Final R esult [facility] [address] [facility], [address] [place] [address] * (ABNORMAL) GGT (01/23/2025 3:58 PM EST) Gamma-glutamylt ransferase 86(H) 7 - 33 U/L 01/23/2025 5:26 PM EST [facility] 01/23/2025 3:58 PM EST 01/23/2025 4:05 PM EST Beni Gomez MD LAB BLOOD ORDERABLES Final R esult [facility] [address] [facility], [address] [place] [address] * Mitochondrial AB (M2) (01/23/2025 3:58 PM EST) Mitochondrial AB (M2) <0.1 <0.1 (Negative) U 01/24/2025 2:[address] [facility] Comment: NOTE Test Performed by: [facility] [address] [place] [address] Money Room Supervisor: Neyda Gutierrez Ph.D.; CLIA# [id number] Serum / Unknown 01/23/2025 3 :58 PM EST 01/23/2025 4:05 PM EST Beni Gomez MD LAB ORDERABLES Final Result [facility] * (ABNORMAL) Iron and TIBC (01/23/2025 3:58 PM EST) Iron 20(L) 50 - 170 ug/dL 01/23/2025 5:26 PM EST [facility] Tibc-calc only do not order 504(H) 250 - 425 ug/dL 01/23/2025 5:26 PM EST [facility] Iron Saturation 4(L) 15 - 50 % SATURATION 01/23/2025 5:26 PM [facility] PLASMA 01/23/2025 3:58 PM EST 01/23/2025 4:05 PM EST Beni Gomez MD LAB BLOOD ORDERABLES Final R esult Performing Organization Address City/[facility]/ZIP Co de Phone Number [facility] [address] [facility], [address] [address] * [id number] (01/23/2025 3:58 PM EST) A-1 Antitrypsin 185 83 - 199 mg/dL 01/23/2025 6:10 PM [facility] Serum / Unknown 01/23/2025 3 :58 PM EST 01/23/2025 4:05 PM EST Beni Gomez MD LAB BLOOD ORDERABLES Final R esult [facility] [address] [place] [address], [address] [place] [address] * Ceruloplasmin (01/23/2025 3:58 PM EST) Ceruloplasmin 33 18 - 58 mg/dL 01/23/2025 6:10 PM [facility] Serum / Unknown 01/23/2025 3 :58 PM EST 01/23/2025 4:05 PM EST Beni Gomez MD LAB BLOOD ORDERABLES Final R esult [facility] [address] [place] [address], [address] [address] * DNA double-stranded (dsDNA) Abs (01/23/2025 3:58 PM EST) Pathologist [facility] Ds DNA <1 <5 IU/ML 01/23/2025 9:55 PM EST [facility] Comment: Interpretation-------- <5 Negative 5-9 Indeterminate >9 Positive Serum / Unknown 01/23/2025 3 :58 PM EST 01/23/2025 4:05 PM EST Beni Gomez MD LAB BLOOD ORDERABLES Final R esult Performing Organization Address [facility] Co de Phone Number [address] [address] * Aldolase (01/23/2025 3:58 PM EST) Pathologist [facility] Aldolase 5.4 1.2 - 7.6 U/L 01/25/2025 5:58 PM EST [employer] Comment: NOTE REFERENCE INTERVAL: Aldolase Access complete set of age- and/or gender-specific reference intervals for this test in the [facility] Test Directory ([employer]). Performed By: [employer] [address] [place] [address] Teachers' Assistant: Bart Infante MD, PhD CLIA Number: [id number] Serum / Unknown 01/23/2025 3 :58 PM EST 01/23/2025 4:05 PM EST Beni Gomez MD LAB BLOOD ORDERABLES Final R esult [facility] * Hepatitis panel, acute (01/23/2025 3:58 PM EST) Hepatitis B Surface Ag Non-Reacti ve Non-Reacti ve^Non-[place] ctive 01/23/2025 10:17 PM [facility] Comment:NEW TEST METHOD Hep B Core IgM Ab Non-Reacti ve Non-Reacti ve^Non-[place] ctive 01/23/2025 10:16 PM [facility] Comment:NEW TEST METHOD Hep A IgM Ab Non-Reacti ve Non-Reacti ve^Non-[place] ctive 01/23/2025 10:16 PM [facility] Comment:NEW TEST METHOD Anti HCV w/ PCR reflex Non-Reacti ve Non-Reacti ve^Non-[place] ctive 01/23/2025 10:17 PM [facility] Comment: NEW TEST METHOD NOTE If recent infection suspected, recommend repeat testing (>2 months). Tohpsu-zx-cqbaed ratio is <1.00. Blood / Unknown 01/23/2025 3 :58 PM EST 01/23/2025 4:05 PM EST Beni Gomez MD LAB BLOOD ORDERABLES [facility] Performing Organization Address [facility] Co de Phone Number [facility] [address] [facility], [place] [address] * Alpha fetoprotein (01/23/2025 3:58 PM EST) Alpha-Fetoprote in 2.6 0 - 9.9 ng/mL 01/23/2025 6:43 PM [facility] Serum / Unknown 01/23/2025 3 :58 PM EST 01/23/2025 4:05 PM EST Beni Gomez MD LAB BLOOD ORDERABLES Final R esult [facility] [address] [place] [address] [facility] [address] [place] [address] * IDALMIS Screen w/ Reflex (01/23/2025 3:58 PM EST) Idalmis screen Negative Negative^N egative 01/23/2025 9:55 PM EST [facility] Comment: Testing performed using multiplex flow immunoassay. Eleven different antigens associated with systemic autoimmune diseases (dsDNA,Sm,Sm/WATER TAXI FERRY OPERATOR,WATER TAXI FERRY OPERATOR,Chromatin, SSA,SSB,Daniela-1,Scl70,Ribo P,Centromere B) are included in this screening test. Serum / Unknown 01/23/2025 3 :58 PM EST 01/23/2025 4:05 PM EST Beni Gomez MD LAB BLOOD ORDERABLES Final R esult Performing Organization Address City/[facility]/ZIP Co de Phone Number [facility] [address] [place] [address] * IgG (01/23/2025 3:58 PM EST) Pathologist [facility] IgG 1,498 635 - 1,741 mg/dL 01/23/2025 6:10 PM EST [facility] Serum / Unknown 01/23/2025 3 :58 PM EST 01/23/2025 4:05 PM EST Beni Gomez MD LAB BLOOD ORDERABLES Final R esult [facility] [address] [place] [address] * (ABNORMAL) Ferritin (01/23/2025 3:58 PM EST) Ferritin 5(L) 11 - 307 ng/mL 01/23/2025 5:40 PM EST [facility] 01/23/2025 3:58 PM EST 01/23/2025 4:05 PM EST Beni Gomez MD LAB BLOOD ORDERABLES Final R esult [facility] [address] [facility] [place] [address] * CK Total (01/23/2025 3:58 PM EST) Total CK 27 24 - 170 U/L 01/23/2025 5:26 PM EST [facility] PLASMA 01/23/2025 3:58 PM EST 01/23/2025 4:05 PM EST Beni Gomez MD LAB BLOOD ORDERABLES Final R esult Performing Organization Address City/[facility]/ZIP Co de Phone Number [facility] [address] [facility], [address] [place] [address] from Last 3 Months Insurance [address] [place] [address] [employer] Member Subscriber Plan / Payer (Ef fective 2018-Present) Name:Shirley Brian Cande Relation to Subscriber:Self Name:Shirley Brian Payer ID:Not on file Type:Not on file Address: [facility] [address] [id number] MEDICARE [employer] INS[employer]ANCE [employer] Care Teams Railroad Repairer Relationship Specialty Start Date End Date Harry aVlencia MD PCP - General Family Medicine 05/29/19
--- OUTSIDE RECORDS SUMMARY | 2025-04-17 11:17 | XMS_ITS | Encounter Summary ---
Author Organization [employer] [facility] tem Address [id number] [address] [place] [address] Care Team Providers Care Associate Director Career Services Name Role Phone Harry Valencia MD Primary Care Provider [phone] Encounter Details Date Type Department Care Team (Latest Contact Info) Description 04/10/2025 Travel Social History Tobacco Use Types Packs/Day Years [...] as of this encounter Plan of Treatment Not on file documented as of this encounter Visit Diagnoses Not on filedocumented in this encounter Care Teams Associate Director Career Services Relationship Specialty Start Date End Date Harry Valencia MD PCP - General Family Medicine 05/29/19 documented as of this encounter
--- OUTSIDE RECORDS SUMMARY | 2025-04-17 11:17 | XMS_ITS | Clinical Summary ---
Author Organization [facility] Address [address] [place] [address] Care Team Providers Care Data Processing Clerk Name Role Phone Harry Suárez MD Primary Care Provider [phone] Allergies Active Allergy Reactions Criticality Noted Date [...] Assessment & Plan (06/28/2023 3:16 PM EDT): -[id number] at least 4 for age, gender, hypertension, [...] valve insufficiency and aortic valve insu fficiency Encounters Date Type Department Care Team Description 04/17/2025 Orders Only [facility] [address] [place] [address] Cande Steele MA Abnormal laboratory test 04/10/2025 1:30 PM EDT Follow-Up [facility] Gastroenterology [address] [place] [address] Beni Gomez MD Cirrhosis of liver with ascites, unspecified hepatic cirrhosis type (CMS/HCC) (Primary Dx) 03/06/2025 Orders Only [facility] [address] [place] [address] Nubia Martin MD 03/05/2025 10:05 PM EDT Ancillary Procedure [facility] [address] [place] [phone] Awareness of heartbeats 02/26/2025 1:45 PM EDT Office Visit [facility] [address] [place] [address] Rogers Catalan MD Hepatic cirrhosis, unspecified hepatic cirrhosis type, unspecified whether ascites present (CMS/HCC); Paroxysmal atrial fibrillation (CMS/HCC) 02/26/2025 Orders Only [facility] [address] [place] [address] Cande Steele MA Paroxysmal atrial fibrillation (CMS/HCC) 02/04/2025 6:05 PM EDT Ancillary Procedure [facility] [address] [place] [address] Awareness of heartbeats 01/29/2025 11:55 AM EDT Anesthesia Event [facility] [address] [place] [phone] Henry Bull MD Meehl, Austin, MD 01/29/2025 9:53 AM EDT - 01/29/2025 11:59 PM EDT Hospital Encounter [facility] [address] [place] [phone] Jesus Emerson MD Bhatt, MD Julisa Danielson Andrew, CAA Hepatic cirrhosis, unspecified hepatic cirrhosis type, unspecified whether ascites present (CMS/HCC) Discharge Disposition: Home or Self Care () 01/29/2025 Travel 01/23/2025 2:30 PM EST Office Visit [facility] Gastroenterology [address] [place] [phone] Beni Gomez MD Cirrhosis of liver with ascites, unspecified hepatic cirrhosis type (CMS/HCC) (Primary Dx); Pulmonary hypertension (CMS/HCC) 01/22/2025 Telephone [facility] [address] [place] [phone] Marina Barr RN 01/21/2025 Travel from Last 3 Months Immunizations Name Administration Dates Next Due Influenza, Unspecified 10/31/2017,09/24/2016 Influenza, injectable, MDCK, preservative free, quadrivalent 09/01/2022,08/26/2020 Influenza, injectable, quadrivalent, preservativ e free 08/11/2021,08/02/2019 Influenza, seasonal, injectable 09/03/2019 Influenza, trivalent, adjuvanted 12/29/2024 Pneumococcal Conjugate PCV 20 12/29/2024 Pneumococcal Polysaccharide PPV23 10/31/2017 Tdap 07/20/2022,03/12/2016 Family History Medical History Relation Name Comments Heart disease Brother Diabetes Father No Known Problems Mother No Known Problems Sister Relation Name Status Comments Brother Father Mother Sister Alive Social History Tobacco Use Types Packs/Day Years [...] Description 04/23/2025 11:45 AM EDT [facility] Visit [facility] [address] [place] [address] Rogers Catalan MD [address] [place] [address] 06/13/2025 8:00 AM EDT Hospital Encounter [facility] Heart [facility] [place] [facility] [address] [place] [phone] Rogers Catalan MD [address] [place] [phone] Paroxysmal atrial fibrillation (CMS/HCC) 06/13/2025 8:00 AM EDT - 06/13/2025 12:00 PM EDT Surgery [facility] Heart [facility] [place] [facility] [address] [place] [address] Rogers Catalan MD [address] [place] [phone] Ablation a-fib paroxysmal [[id number]] 06/13/2025 8:00 AM EDT Appointment [facility] Vascular Lab [address] [place] [phone] 10/16/2025 1:30 PM EST Follow-Up [facility] Gastroenterology [address] [place] [phone] Beni Gomez MD [address] [facility] [address] [facility] [place] [address] Health Maintenance Due Date Last Done Comments CT Colonography 1956 Diabetes: Hemoglobin A1C 1955 FIT-DNA 1956 FIT 1955 FOBT 1955 Medicare Annual Wellness (AWV) 1955 Sigmoidoscopy 1956 Diabetes: Retinopathy Screening 1966 Depression Screening 1968 Diabetes: Urine Protein Screening 1975 Mammogram 1996 Zoster Vaccines (1 of 2) 2006 Fall Risk Screening 2021 COVID-19 Vaccine ( season) 2024 09/29/2021, 01/25/2021 Adult Tetanus 07/20/2032 07/20/2022, 03/12/2016 Colonoscopy 11/07/2034 11/07/2024, 03/14/2008 Colorectal Cancer Screening 11/07/2034 Influenza Vaccine Completed 12/29/2024, , 08/11/2021, Additional history exists Pneumococcal Vaccine: 65+ Years Completed 12/29/2024, 10/31/2017 HIB Vaccines Aged Out No longer eligi ble based on patient's age to complete this topic HPV Vaccines Aged Out No longer eligi ble based on patient's age to complete this topic IPV Vaccines Aged Out No longer eligi ble based on patient's age to complete this topic Meningococcal B Vaccine Aged Out No l onger eligible based on patient's age to complete this topic Meningococcal Vaccine Aged Out No mendy aldo eligible based on patient's age to complete this topic Rotavirus Vaccines Aged Out No longer eligible based on patient's age to complete this topic Medical Devices Implanted Type Area Neck Pinner Device Identifier Shelf Expiration Date Model / Serial / Lot Monitor,Cardi ac,Lux,Dxii+I - [id number] - [id number] Implanted:Qty : 1 on 08/06/2024 by Rogers Catalan MD at [facility] Implantable Loop Recorder Left: [employer] 12/28/2025 [id number] / [id number] / Procedures Procedure Name Priority Date/Time Associated [...] - 105 mg/dL 01/29/2025 11:[address] [facility] Comment:ltolles Blood Capillary blood specimen / Unknown 01/29/2025 11:41 AM EDT 01/29/2025 11:53 AM EDT Narrative [facility] - 01/29/2025 11:53 AM EDT Waived Testing in the ED is performed under the ED CLIA certificate #[id number]. Jesus Emerson MD LAB BLOOD ORDERABLES [facility] [address] [place] [address] from Last 3 Months Care Teams Data Processing Clerk Relationship Specialty Start Date End Date Harry Suárez MD [address] [facility] [address] [address] PCP - General 06/20/23
--- OUTSIDE RECORDS SUMMARY | 2025-04-17 11:17 | XMS_ITS | Encounter Summary ---
Author Organization [facility] Address [address] [place] [address] Care Team Providers Care Textile Pin Worker Name Role Phone Harry Valencia MD Primary Care Provider [phone] Harry Valencia MD Primary Care Provider [phone] Encounter Details Date Type Department Care Team (Late st Contact Info) Description 11/19/2024 Orders Only [facility] [address] [place] [phone] Micheal Vincent MD [address] [facility] [place] [address] Social History Tobacco Use Types Packs/Day Years Used Date Smoking Tobacco: Never Assessed Comments Unknown Sex and Gender Information Value Date Recorded Sex Assigned at Not on file Legal Sex Female 7:31 PM EDT Gender Identity Not on file Sexual Orientation Not on file documented as of this encounter Plan of Treatment Not on file documented as of this encounter Procedures Procedure Name Priority Date/Time Associated Diagnosis Comments ELECTROCARDIOGRAM REPORT Routine 024 11:45 AM EST documented in this encounter Results * Electrocardiogram Report (11/14/2024 11:45 AM EST) Micheal Vincent MD IN CLINIC/BEDSIDE ORDERABLES Fin al Result documented in this encounter Visit Diagnoses Not on filedocumented in this encounter Care Teams Textile Pin Worker Relationship Specialty Start Date End Date Harry Valencia MD PCP - General Family Medicine 11/26/24 04/04/25 Harry Valencia MD [address] [place] [phone] PCP - General Family Medicine 04/05/25 documented as of this encounter
--- OUTSIDE RECORDS SUMMARY | 2025-04-17 11:17 | XMS_ITS | Clinical Summary ---
Author Organization [facility] Address [address] [place] [address] Care Team Providers Care Piece Presser Name Role Phone Harry Valencia MD Primary Care Provider [phone] Social History Tobacco Use Types Packs/Day Years Used Date Smoking Tobacco: Never Assessed Comments Unknown Sex and Gender Information Value Date Recorded Sex Assigned at Not on file Legal Sex Female 7:31 PM EDT Gender Identity Not on file Sexual Orientation Not on file Plan of Treatment Not on file Insurance MEDICARE AET Care Teams Piece Presser Relationship Specialty Start Date End Date Harry Valencia MD [address] [place] [address] PCP - General Family Medicine 04/05/25
--- OUTSIDE RECORDS SUMMARY | 2025-04-17 11:17 | XMS_ITS | Encounter Summary ---
Author Organization [facility] Address [address] [place] [address] Care Team Providers Care Creative Project Manager Name Role Phone Harry Valencia MD Primary Care Provider [phone] Encounter Details Date Type Department Care Team (Late st Contact Info) Description 04/17/2025 Orders Only [facility] [address] [place] [address] Cande Steele MA Abnormal laboratory test Social History Tobacco Use Types Packs/Day Years [...] Description 04/23/2025 11:45 AM EDT Office Visit [facility] [address] [place] [address] Rogers Catalan MD [address] [place] [phone] 06/13/2025 8:00 AM EDT Hospital Encounter [facility] Heart [facility] [place] [phone] Rogers Catalan MD [address] [place] [phone] Paroxysmal atrial fibrillation (CMS/HCC) 06/13/2025 8:00 AM EDT - 06/13/2025 12:00 PM EDT Surgery [facility] [place] [phone] Rogers Catalan MD [address] [place] [phone] Ablation a-fib paroxysmal [[id number]] 06/13/2025 8:00 AM EDT Appointment [facility] Vascular Lab [address] [place] [phone] 10/16/2025 1:30 PM EST Follow-Up [facility] Gastroenterology [address] [place] [address] Beni Gomez MD [address] [facility] 2 [facility] [place] [address] Scheduled Orders Name Type Priority Associated Diagnoses Orde r Schedule CBC and differential Lab Routine Abnormal laboratory test Expected: 04/17/2025 (Approximate), Expires: 04/17/2026 documented as of this encounter Visit Diagnoses Diagnosis Atrial fibrillation (CMS/HCC)- Primary Atrial fibrillation Paroxysmal atrial fibrillation (CMS/HCC) Atrial fibrillation Abnormal laboratory test Other abnormal clinical finding Paroxysmal atrial fibrillation (CMS/HCC) Atrial fibrillation documented in this encounter Care Teams Creative Project Manager Relationship Specialty Start Date End Date Harry Valencia MD [address] [facility] [place] [address] PCP - General 06/20/23 documented as of this encounter
[2025-04-17 11:44] LABS: Basophils Percent Auto 0.4 % (0.2-2.0); Eosinophils Absolute Auto 0.3 10^3/uL (0.0-0.7); Eosinophils Percent Auto 4.5 % (0.9-7.0); Hematocrit 28.3 % (36.0-48.0); Hemoglobin 8.1 g/dL (12.0-16.0); Immature Granulocytes Abs Auto 0.01 10^3/uL (0.00-0.03); Immature Granulocytes Pct Auto 0.1 % (0.0-0.5); Lymphocytes Absolute Auto 0.9 10^3/uL (1.2-3.8); Lymphocytes Percent Auto 12.8 % (20.5-60.0); Mean Corpuscular HGB Conc 28.6 g/dL (29.9-35.2); Mean Corpuscular Hemoglobin 23.7 pg (26.7-34.0); Mean Corpuscular Volume 82.7 fL (81.0-99.0); Mean Platelet Volume 10.2 fL (9.5-13.5); Monocytes Absolute Auto 0.7 10^3/uL (0.3-0.8); Monocytes Percent Auto 9.7 % (1.7-12.0); Neutrophils Absolute Auto 4.9 10^3/uL (1.4-6.5); Neutrophils Percent Auto 72.5 % (43.0-75.0); Platelet Count 179 10^3/uL (150-450); Red Cell Distribution Width 19.7 % (11.0-15.0); White Blood Count 6.7 10^3/uL (4.0-11.0)
[2025-04-17 12:14] LABS: Red Blood Count 3.42 10^6/uL (4.20-5.40)
== END 2025-04-17 11:13 | disposition home or self-care (01) ==
LOC: LAB 11:13
PROVIDERS: PCP Family Medicine; Visit Provider Internal Medicine Cardiovascular Disease
DX: R89.9 Unspecified abnormal finding in specimens from other organs, systems and tissues (principal)
CPT/HCPCS: 36415; 85025

== ENCOUNTER 2025-04-22 09:40 | Outpatient (OUT) | payer MEDICARE, SELFPAY ==
[2025-04-22 10:14] LABS: Hematocrit 26.3 % (36.0-48.0); Hemoglobin 7.5 g/dL (12.0-16.0); Mean Corpuscular HGB Conc 28.5 g/dL (29.9-35.2); Mean Corpuscular Hemoglobin 23.6 pg (26.7-34.0); Mean Corpuscular Volume 82.7 fL (81.0-99.0); Mean Platelet Volume 10.1 fL (9.5-13.5); Platelet Count 188 10^3/uL (150-450); Red Blood Count 3.18 10^6/uL (4.20-5.40); Red Cell Distribution Width 19.6 % (11.0-15.0); White Blood Count 5.9 10^3/uL (4.0-11.0)
[2025-04-22 11:22] LABS: Segmented Neut Absolute Manual 3.95 10^3/uL (1.4-6.5)
[2025-04-22 11:23] LABS: Anisocytosis 2+; Eosinophils Absolute Manual 0.29 10^3/uL (0.00-0.70); Hypochromasia 1+; Lymphocytes Absolute Manual 1.18 10^3/uL (1.20-3.80); Monocytes Absolute Manual 0.47 10^3/uL (0.30-0.80)
== END 2025-04-22 09:41 | disposition home or self-care (01) ==
LOC: LAB 09:42
PROVIDERS: PCP Family Medicine; Visit Provider Internal Medicine Cardiovascular Disease
DX: R89.9 Unspecified abnormal finding in specimens from other organs, systems and tissues (principal)
CPT/HCPCS: 36415; 85007; 85027

== ENCOUNTER 2025-04-30 11:04 | Outpatient (OUT) | payer MEDICARE, SELFPAY ==
--- OUTSIDE RECORDS SUMMARY | 2025-04-23 11:45 | XMS_ITS | Encounter Summary ---
Author Organization [facility] Address [address] [place] [address] Care Team Providers Care Slice Plug Cutter Operator Helper Name Role Phone Harry Suárez MD Primary Care Provider [phone] Encounter Details Date Type Department Care Team (Late st Contact Info) Description 04/23/2025 11:45 AM EDT Office Visit [facility] Heart [facility] [address] [place] [address] Rogers Catalan MD [address] [place] [phone] Persistent atrial fibrillation (CMS/HCC) (Primary Dx) Social History Tobacco Use [...] Sign Reading Time Taken Comments Blood Pressure 143/55 04/23/2025 11:44 AM EDT Pulse 68 04/23/2025 11:44 AM EDT Temperature - - Respiratory Rate - - Oxygen Saturation 98% 04/23/2025 11:44 AM EDT Inhaled Oxygen Concentration - - Weight 90.3 kg (199 lb) 04/23/2025 11:44 AM EDT Height 167.6 cm (5' 6 ) 04/23/2025 11:44 AM EDT Body Mass Index 32.12 04/23/2025 11:44 AM EDT documented in this encounter Progress Notes * Rogers Catalan MD - 04/23/2025 11:45 AM EDT Images from the original note were not included. [place] Electrophysiology Consult Note [facility] Clinic Reason for visit: Afib 04/23/2025 Patient is here today for H & P and consent for ablation. Patient states she feels pretty good,some days she states she feels whipped and dizziness some swelling. Patient denies chest pain, palpitations, Her recent blood work done from yesterday showed hemoglobin of 7.5. This is a drop compared to the baseline of 8 something before. She noticed that her stools are darker in color but not melena nor does she see any denise blood. She has been following up with GI and they are awaiting input from us to decide on the next endoscopy . Review of Systems Constitutional: Positive for malaise/fatigue. Cardiovascular: Positive for leg swelling. Neurological: Positive for dizziness. 02/26/25 Patient here for follow up from [facility]. Patient had fluid taken off and aslo had blood transfusions. Patient states she had an at [facility]. EGD showed 3 bleeding ulcers. Patient has loop monitor. EGD on 01/19/25 with ablations of AVM with argon plasma coagulation 12/19/24 She was admitted again for afib since she saw Dr. Khalil on 11/09/2024 . This last time she [...] since last month when she saw Dr. Khalil. Her medications were all stopped including beta-blockers because of low blood pressure and she is currently on digoxin. Loop data shows that she has got significant A-fib burden 07/03/24 Pt is doing well and occasionally feels palpitations. HPI: Shirley Brian is a 69 y.o. year old with past medical history of Hypertension, diabetes, dyslipidemia, palpitations. She was recently seen at the [facility] for A-fib RVR as she was admitted for diarrhea and palpitations. She was found to have C. difficile and was treated with antibio tics and converted to sinus rhythm on her own. She states she normally would get palpitations when she drinks caffeine and typically avoids caffeine, the day of her admission she believes she was given caffeinated coffee at [facility] and then began experience palpitations [...] show any evidence of reversible ischemia. below [id number] at least 4 for age, gender, hypertension, diabetes She has been taking Eliquis 5 mg twice daily and tolerating without signs or symptoms of bleeding. Echo 05/24/2023 LVEF 65%, normal LV systolic function and size, borderline left ventricular hypertrophy, LA severely dilated, RA mild dilatation, RVSP 39 mmHg, mild to moderate much regurgitation, mildaortic regurgitation Labs 05/25/2023 sodium 142, K3.7, BUN [...] Determinants of Health Tobacco Use: Low Risk (04/23/2025) Patient History Smoking Tobacco Use: Never Smokeless Tobacco Use: Never Passive Exposure: Not on file Alcohol Use: Not on file Financial Resource Strain: Not on file Food Insecurity: Not on file Transportation Needs: Not on file Physical Activity: Not on file Stress: Not on file Social Connections: Not on file Intimate Partner Violence: Unknown (01/12/2024) [place] Safety & Environment Fear of Current or Ex-Partner: Not on file Emotionally Abused: Not on file Physically Abused: Not on file Sexually Abused: Not on file Physically or Sexually Abused: Not on file Depression: Not on file Housing Stability: Not on file Utilities: Not on file Health Literacy: Not on file Allergies: Allergies Allergen Reactions Sulfa (Sulfonamide Antibiotics) Hives Weight: 90.3kg Visit Vitals BP 143/55 (BP Location: Left arm, Patient Position: Sitting) Pulse 68 Ht 1.676 m (5' 6 ) Wt 90.3 kg (199 lb) SpO2 98% BMI 32.12 kg/m?? OB Status Postmenopausal Smoking Status Never BSA 2.05 m?? Meds: Current Outpatient Medications on File Prior to Visit Medication Sig Dispense Refill amiodarone (Pacerone) 200 mg tablet Take 2 tablets (400 mg) by mouth two times daily for 14 days, THEN 1 tablet (200 mg) in the morning. 146 tablet 0 diclofenac (Voltaren) 75 mg EC tablet Take 75 mg by mouth if needed. Eliquis 5 mg tablet Take 5 mg by mouth two times daily. furosemide (Lasix) 20 mg tablet Take 1 tablet (20 mg) by mouth in the morning. 90 tablet 3 magnesium oxide (Mag-Ox) 400 mg (241.3 mg magnesium) tablet Take 1 tablet (400 mg) by mouth once daily as directed. 90 tablet 3 metFORMIN (Glucophage) 500 mg tablet Take 1 tablet by mouth twice a day. ondansetron ODT (Zofran-ODT) 4 mg disintegrating tablet Take 4 mg by mouth every 8 (eight) hours ifneeded for nausea or vomiting. pantoprazole (ProtoNix) 40 mg EC tablet Take 40 mg by mouth if needed each day. ramipril (Altace) 10 mg capsule Take 10 mg by mouth in the morning. simvastatin (Zocor) 20 mg tablet Take 20 mg by mouth at bedtime. spironolactone (Aldactone) 50 mg tablet Take 1 tablet (50 mg) by mouth in the morning. 30 tablet 11 sucralfate (Carafate) 1 gram tablet Take 1 g by mouth before breakfast and before evening meal. venlafaxine XR (Effexor-XR) 75 mg 24 hr capsule Take 75 mg by mouth in the morning. metoprolol succinate XL (Toprol-XL) 25 mg 24 hr tablet Take 1 tablet (25 mg) by mouth in the morning. Do not crush or chew. (Patient not taking: Reported on 04/18/2025) 90 tablet 3 metoprolol tartrate (Lopressor) 100 mg tablet Take 1 tablet (100 mg) by mouth two times daily. (Patient not taking: Reported on 04/18/2025) 180 tablet 3 spironolactone (Aldactone) 25 mg tablet TAKE 2 TABLETS BY MOUTH DAILY FOR 3 DAYS No current facility-administered medications on file prior to visit. Physical Exam: Constitutional General Appearance: well-nourished, well-developed, [...] distended, no bruit, non tender Musculoskeletal Inspection: no joint swelling Neurologic Gait: normal gait Skin Inspection and Palpation: warm and dry Nails: no clubbing Labs: Labs 05/25/2023 sodium 142, K3.7, BUN 27, creatinine 0.75, GFR greater than 60, magnesium 1.5 EKG: No results found for this or any previous visit (from the past 4464 hour(s)). ECG 06/21/23 05/23/2023 A-fib RVR but does appear to be more like atrial flutter Echo: 05/30/24 05/25/23 TTE Stress test: Coronary angiogram: none Diagnostic Imaging: No images are attached to the encounter. Assessment and Plan: Atrial fibrillation (CMS/HCC) -[id number] at least 4 for age, gender, hypertension, diabetes - continue Eliquis 5 mg, Restart Toprol XL 50 mg once a day for rate control as we are stopping Digoxin. Loop reveals significant amount of A-fib burden at this time I feel like the best course wouldbe to give her catheter ablation in order to contain the atrial fibrillation progression especiallybecause she is symptomatic with this and despite Amio has breakthrough. Given the drop in hemoglobin I have advised her to hold her on the ablation and to see GI team first for a repeat endoscopy. If this is not revealing for any active ulcer then we can schedule her forA-fib ablation. C. difficile colitis - resolved. This could have been the trigger to her A-fib but she was noted to have palpitations previously and intentionally avoided for that reason Diabetes mellitus (CMS/HCC) - controlled, follow-up with Dr. suárez Hypertension - stable, continue medication HFpEF - NYHA I, EF 60%, RVSP 39 on recent echo 05/25/23 - this was likely exacerbated by A-fib and infection - ct GDMT: Toprol XL only due to low BP - I will order her Lasix 20 mg as needed for lower extremity swelling LVH - borderline left ventricular hypertrophy noted on echo Mitral and aortic valve insufficiency - mild to moderate mitral regurgitation - mild aortic regurgitation Rogers Catalan MD Cardiac Electrophysiology [facility] documented in this encounter Plan of Treatment Upcoming Encounters Date Type Department Care Team (Late st Contact Info) Description 10/16/2025 1:30 PM EST Follow-Up [facility] Gastroenterology [address] [place] [phone] Beni Gomez MD [address] [facility] [address] [facility] [place] [phone] documented as of this encounter Visit Diagnoses Diagnosis Persistent atrial fibrillation (CMS/HCC)- Primary Atrial fibrillation documented in this encounter Care Teams Slice Plug Cutter Operator Helper Relationship Specialty Start Date End Date Harry Suárez MD [address] [facility] [address] [address] PCP - General 06/20/23 documented as of this encounter
--- OUTSIDE RECORDS SUMMARY | 2025-04-25 05:38 | XMS_ITS | Encounter Summary ---
Author Organization [employer] tem Address [id number] [address] [place] [address] Care Team Providers Care Director Paid Media Name Role Phone Harry Valencia MD Primary Care Provider [phone] Reason for Referral * Misc (Routine) - Authorized Specialty Diagnoses / Procedures Referred By Contac t Referred To Contact Procedures Adult diet- Regular Scar Dimas MD [address] [place] [address], [address] [place] [address] Phone: tel: fax: Referral ID Status Reason Start Date Expiration Date V isits Requested Visits Authorized [id number] Authorized 04/25/2025 04/25/2026 1 1 * Misc (Routine) - Authorized Specialty Diagnoses / Procedures Referred By Contac t Referred To Contact Diagnoses Melena Procedures What to Expect after Endoscopy Scar Dimas MD [address] [place] [address], [address] [place] [id number] Phone: tel: fax: Referral ID Status Reason Start Date Expiration Date V isits Requested Visits Authorized [id number] Authorized 04/25/2025 04/25/2026 1 1 Reason for Visit * Auth/Cert Specialty Diagnoses / Procedures Referred By Contac t Referred To Contact Diagnoses Cirrhosis of liver with ascites (CMS-HCC) Anemia, unspecified Personal history of arterial venous malformation (AVM) CIRRHOSIS OF LIVER W/ ASCITES, ANEMIA, HISTORY OF ARTERAL VENOUS MALFORMATIONS Procedures [place] ESOPHAGOGASTRODUODENOSCOPY TRANSORAL DIAGNOSTIC ESOPHAGOGASTRODUODENOSCOPY DIAGNOSTIC ENTEROSCOPY PUSH Jesus Emerson MD [address] [facility], [address] [place] [address] Phone: tel: fax: Referral ID Status Reason Start Date Expiration Date Visits Re quested Visits Authorized [id number] 1 1 Encounter Details Date Type Department Care Team (Latest Contact Info) Description 04/25/2025 5:38 AM EDT - 04/25/2025 9:36 AM EDT Hospital Encounter [facility] - Surgery [address] [place] [address]. [place] [id number] Jesus Emerson MD [address] [place] [address], [address] [place], [place] [id number] Sharon (Primary Dx) Discharge Disposition: Home Social History Tobacco Use Types Packs/Day Years [...] Sign Reading Time Taken Comments Blood Pressure 129/52 04/25/2025 9:20 AM EDT Pulse 61 04/25/2025 9:20 AM EDT Temperature 36.4 C (97.5 F) 04/25/2025 9:20 AM EDT Respiratory Rate 16 04/25/2025 9:20 AM EDT Oxygen Saturation 95% 04/25/2025 9:20 AM EDT Inhaled Oxygen Concentration - - Weight 89.4 kg (197 lb) 04/25/2025 7:17 AM EDT Height 167.6 cm (5' 6 ) 04/25/2025 6:56 AM EDT Body Mass Index 31.8 04/25/2025 6:56 AM EDT documented in this encounter Medications at Time of Discharge apixaban (ELIQUIS) 5 mg tablet Take 1 tablet (5 mg total) by mouth in the morning and 1 tablet (5 mg total) before bedtime. glimepiride (AMARYL) 1 mg tablet Take 1 tablet (1 mg total) by mouth every morning before breakfast. metFORMIN (GLUCOPHAGE) 500 mg tablet Take 1 tablet (500 mg total) by mouth in the morning and 1 tablet (500 mg total) before bedtime. ramipriL (ALTACE) 5 mg capsule Take 1 capsule (5 mg total) by mouth in the morning. simvastatin (ZOCOR) 10 mg tablet Take 10 mg by mouth nightly. venlafaxine (EFFEXOR) 25 mg tablet Take 1 tablet (25 mg total) by mouth in the morning and 1 tablet (25 mg total) before bedtime. documented as of this encounter H&P Notes * Scar Dimas MD - 04/24/2025 2:19 PM EDT Images from the original note were not included. GENERAL HISTORY AND PHYSICAL: 04/24/25 PROBLEM: Active Problems: * No active hospital problems. * HISTORY OF PRESENT ILLNESS: Shirley Brian is an 69 y.o. White or female. 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 Patient is scheduled for an EGD with push enteroscopy for re-evaluation of AVMs in the settings of recent hospitalization for anemia and dark stools in February. Patient was seen in the clinic on 04/10/2025. PAST MEDICAL HISTORY: Past Medical History: Diagnosis Date Diabetes (CMS-HCC) HTN (hypertension) Uterine cancer (CMS-HCC) PAST SURGICAL HISTORY: Past Surgical History: Procedure Laterality Date APPENDECTOMY CHOLECYSTECTOMY HERNIA REPAIR HYSTERECTOMY ROTATOR CUFF REPAIR TONSILLECTOMY Travel History Travel Screening No screening recorded since 04/21/25 1419 Travel History Travel since 03/24/25 No documented travel since 03/24/25 SOCIAL HISTORY: Social History Socioeconomic History Marital status: Single Spouse name: Not on file Number of children: Not on file Years of education: Not on file Highest education level: Not on file Occupational History Not on file Tobacco Use Smoking status: Never Smokeless tobacco: Never Substance and Sexual Activity Alcohol use: Not Currently Drug use: Never Sexual activity: Not on file Other Topics Concern Not on file Social History Narrative Not on file Social Drivers of Health Financial Resource Strain: Not on file Food Insecurity: Not on file Transportation Needs: Not on file Physical Activity: Not on file Stress: Not on file Social Connections: Not on file Interpersonal Safety: Unknown (01/12/2024) Received from [facility] Safety & Environment Fear of Current or Ex-Partner: Not on file Emotionally Abused: Not on file Physically Abused: Not on file Sexually Abused: Not on file Physically or Sexually Abused: Not on file Housing Instability: Not on file ALLERGIES: Allergies Allergen Reactions Sulfa (Sulfonamide Antibiotics) HOME MEDICATIONS: No medications prior to admission. IMMUNIZATIONS: Immunization History Administered Date(s) Administered COVID-19 Vaccine, vector-nr, rS-Ad26, PF, 0.5mL 01/25/2021 COVID-19, mRNA, LNP-S, PF, 30mcg/0.3mL Dose 09/29/2021 Tdap 07/20/2022 REVIEW OF SYSTEMS: Review of Systems No LMP recorded. There were no vitals taken for this visit. No data recorded PHYSICAL EXAM: Physical Exam ASSESSMENT: Shirley Brian is an 69 y.o. White or female. 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 Patient is scheduled for an EGD with push enteroscopy for re-evaluation of AVMs in the settings of recent hospitalization for anemia and dark stools in February. Patient was seen in the clinic on 04/10/2025. PLAN: Will plan for EGD with push enteroscopy for further evaluation of GI bleeding in the settings of known AVMs requiring APC in the past. Cosigned by Jesus Emerson MD at 04/25/2025 7:59 AM EDT Associated attestation - Jesus Emerson MD - 04/25/2025 7:59 AM EDT The patient was seen and examined. Agree with the assessment and plan. The patient with history of upper GI bleeding, status post EGD with ablation of gastric AVMs presenting today for recurrent episode of melena. The patient is scheduled to have an upper endoscopy withpush enteroscopy to assess the proximal small bowel to rule out AVMs. documented in this encounter Miscellaneous Notes * Discharge instr - Endo Pulm - Jesus Emerson MD - 04/25/2025 7:47 AM EDT Patient Instructions after an EGD without BiopsyPatient: Shirley Brian Date: April 255Attending MD: Jesus Diamond. Do Not eat or drink anything for 1 hour. Trysips of water first. If tolerated, resume your regular diet or one recommended by your physician.2. Do not drive, operate machinery, make criticaldecisions, or do activities that require coordination or balance for 24 hours.3. You may experiencea sore throat for 24 to 48 hours. You may use throat lozenges or gargle with warm salt water to relieve the discomfort.4. Because air was put into your stomach during the procedure, you may experience some belching.5. Go directly to the emergency room if you notice any of the following: Chills and/or fever over 101 Persistent vomiting or vomiting with blood Severe abdominal pain, other than gas cramps Severe chest pain Black, tarry stoolsYour doctor recommends these additional instructions:You are being discharged to home. Resume your previous diet. Continue your present medications. Your physician has recommended video capsule endoscopy to visualize the small bowel at appointment to be scheduled.Your impressions for this procedure:- Normal esophagus. - A medium amount of food (residue) in the stomach. - Nodular mucosa in the prepyloric region of the stomach. - Normal examined duodenum. - A few non-bleeding angioectasias in the jejunum. - No specimens collected.If you have any questions on the above instructions, please call the GI Lab. Nurse Signature Patient/Designated Responsible Republican SignatureDr. Jesus Emerson, 04/25/2025 12:05:42 PMWasef Sayeh, documented in this encounter Plan of Treatment Not on file documented as of this encounter Goals Goal Patient Goal Type Associated Problems Recent Progress Patient-Stated? Author Autogenera asaf Goal Care Plan Autogenerated Problem No Lobopablo Shefali documented as of this encounter Procedures Procedure Name Priority Date/Time Associated Diagnosis Comments BEDSIDE GLUCOSE Routine 04/25/2025 8:58 AM EDT ENTEROSCOPY 04/25/2025 8:00 AM EDT CIRRHOSIS OF LIVER W/ ASCITES, ANEMIA, HISTORY OF ARTERAL VENOUS MALFORMATIONS Case Notes REQ 45 TOTAL- INDIRA [place] EGD TRANSORAL CONTROL BLEEDING ANY METHOD 04/25/2025 8:00 AM EDT CIRRHOSIS OF LIVER W/ ASCITES, ANEMIA, HISTORY OF ARTERAL VENOUS MALFORMATIONS Case Notes REQ 45 TOTAL- INDIRA PROVATION EGD Routine 04/25/2025 7:51 AM EDT EGD 04/25/2025 7:47 AM EDT BEDSIDE GLUCOSE Routine 04/25/2025 7:27 AM EDT documented in this encounter Results * (ABNORMAL) Bedside Glucose *Place/Obtain serum glucose if >500 per glucometer. (04/25/2025 8:58 AM EDT) Bedside Glucose (POC) 213(H) 65 - 99 mg/dL 04/25/2025 9:03 AM EDT [facility] arterial/capilla ry 04/25/2025 8:58 AM EDT 04/25/2025 9:03 AM EDT us Jesus Emerson MD POINT OF CARE TEST ORDERABLES Fi nal Result [facility] [address] [place] [address], [place] * EGD Report (04/25/2025 7:51 AM EDT) Narrative SYSTEMGENERATED, DOCUMENTATION - 04/25/2025 7:51 AM EDT This order has been auto-finalized for image and report archival in PACs. *For full report details, please reach out to your physician. This image is visible to you in MyChart.* us Jesus Emerson MD IMG OR IMG ORDERABLES Final Resu lt * EGD (04/25/2025 7:47 AM EDT) 04/25/2025 7:47 AM EDT Narrative PM CARDIOVASCULAR - 04/25/2025 12:06 PM EDT [facility] Patient Name: Shirley Brian Procedure Date: 04/25/2025 7:47 AM CSN: [id number] Date of : 1955 Admit Type: Outpatient Age: 69 Room: [place] [address] Gender: Female Note Status: Finalized Attending MD: Jesus Emerson , , Procedure: Upper GI endoscopy with push enteroscopy Indications: Melena Providers: Scar Vega (Fellow) Referring MD: Jesus Emerson Requesting Provider: Medicines: Monitored Anesthesia Care Complications: No immediate complications. Estimated blood loss: None. Procedure: After obtaining informed consent, the endoscope was passed under direct vision. Throughout the procedure, the patient's blood pressure, pulse, and oxygen saturations were monitored continuously. The Colonoscope was introduced through the mouth, and advanced to the proximal jejunum. The upper GI endoscopy was accomplished without difficulty. The patient tolerated the procedure well. Findings: The examined esophagus was normal. A medium amount of food (residue) was found in the gastric fundus and in the gastric antrum. Localized nodular mucosa was found in the prepyloric region of the stomach. The examined duodenum was normal. A few diminutive angioectasias without bleeding were found in the jejunum. Estimated Blood Loss: Estimated blood loss: none. Impression: - Normal esophagus. - A medium amount of food (residue) in the stomach. - Nodular mucosa in the prepyloric region of the stomach. - Normal examined duodenum. - A few non-bleeding angioectasias in the jejunum. - No specimens collected. Recommendation: - Discharge patient to home. - Resume previous diet. - Continue present medications. - To visualize the small bowel, perform video capsule endoscopy at appointment to be scheduled. I was present in the endoscopy room during the entire procedure to supervise the fellow. Procedure Code(s): --- Professional --- 20165, Esophagogastroduodenoscopy, flexible, transoral; diagnostic, including collection of specimen(s) by brushing or washing, when performed (separate procedure) Diagnosis Code(s): --- Professional --- K31.89, Other diseases of stomach and duodenum K55.20, Angiodysplasia of colon without hemorrhage K92.1, Melena (includes Hematochezia) CPT copyright 2022 [employer]. All rights reserved. The codes documented in this report are preliminary and upon rat exterminator review may be revised to meet current compliance requirements. Dr. Jesus Emerson, 04/25/2025 12:05:42 PM Scar Dimas, Number of Addenda: 0 Note Initiated On: 04/25/2025 7:47 AM Procedure Note Jesus Emerson MD - 04/25/2025 [facility] Patient Name: Shirley Brian Procedure Date: 04/25/2025 7:47 AM CSN: [id number] Date of : 1955 Admit Type: Outpatient Age: 69 Room: [place] [address] Gender: Female Note Status: Finalized Attending MD: Jesus Emerson , , Procedure: Upper GI endoscopy with push enteroscopy Indications: Melena Providers: Jesus Emerson, Scar Dimas (Fellow) Referring MD: Jesus Emerson Requesting Provider: Medicines: Monitored Anesthesia Care Complications: No immediate complications. Estimated blood loss: None. Procedure: After obtaining informed consent, theendoscope was passed under direct vision. Throughoutthe procedure, the patient's blood pressure,pulse, and oxygen saturations were monitored continuously. The Colonoscope was introduced through the mouth, and advanced to theproximal jejunum. The upper GI endoscopy was accomplished without difficulty. The patient tolerated the procedure well. Findings: The examined esophagus was normal. A medium amount of food (residue) was found in the gastric fundus andin the gastric antrum. Localized nodular mucosa was found in the prepyloric region of the stomach. The examined duodenum was normal. A few diminutive angioectasias without bleeding were found in the jejunum. Estimated Blood Loss: Estimated blood loss: none. Impression: - Normal esophagus. - A medium amount of food (residue) in the stomach. - Nodular mucosa in the prepyloric region of the stomach. - Normal examined duodenum. - A few non-bleeding angioectasias in the jejunum. - No specimens collected. Recommendation: - Discharge patient to home. - Resume previous diet. - Continue present medications. - To visualize the small bowel, performvideo capsule endoscopy at appointment to be scheduled. I was present in the endoscopy room duringthe entire procedure to supervise the fellow. Procedure Code(s): --- Professional --- 07416, Esophagogastroduodenoscopy, flexible, transoral; diagnostic, including collectionof specimen(s) by brushing or washing, when performed (separate procedure) Diagnosis Code(s): --- Professional --- K31.89, Other diseases of stomach andduodenum K55.20, Angiodysplasia of colon without hemorrhage K92.1, Melena (includes Hematochezia) CPT copyright 2022 [employer]. All rights reserved. The codes documented in this report are preliminary and upon rat exterminator reviewmay be revised to meet current compliance requirements. Dr. Jesus Emerson, 04/25/2025 12:05:42 PM Scar Dimas, Number of Addenda: 0 Note Initiated On: 04/25/2025 7:47 AM Jesus Emerson MD GI PROCEDURE ORDERABLES Edited R esult - Final PM CARDIOVASCULAR * (ABNORMAL) Bedside Glucose *Place/Obtain serum glucose if >500 per glucometer. (04/25/2025 7:27 AM EDT) Bedside Glucose (POC) 231(H) 65 - 99 mg/dL 04/25/2025 8:30 AM EDT [facility] arterial/capilla ry 04/25/2025 7:27 AM EDT 04/25/2025 8:30 AM EDT Jesus Emerson MD POINT OF CARE TEST ORDERABLES Fi nal Result [facility] [address] [place] [address], documented in this encounter Visit Diagnoses Diagnosis Melena- Primary Blood in stool documented in this encounter Administered Medications Inactive Administered Medications - up to 3 most recent administrations Medication Order MAR Action Action Date Dose Rate Site fentaNYL (SUBLIMAZE) injection 25 mcg 25 mcg, intravenous, Every 5 min PRN, Pain Scale 1-5, Starting on Fanny 04/25/25 at 0936, PACU (only), Up to a maximum dose of 150 mcg. Look-alike/sound-alike medication - verify indication for use. fentaNYL (SUBLIMAZE) injection 50 mcg 50 mcg, intravenous, Every 5 min PRN, Pain Scale 6-10, Starting on Fanny 04/25/25 at 0936, PACU (only), Up to a maximum dose of 150 mcg Look-alike/sound-alike medication - verify indication for use. hydrALAZINE (APRESOLINE) injection 5 mg 5 mg, intravenous, Every 10 min PRN, high blood pressure, systolic blood pressure greater than 160 mmHg, Starting on Fanny 04/25/25 at 0936, PACU (only), Maximum dose of hydrALAZINE (APRESOLINE) is 20 mg while in PACU Look-alike/sound-alike medication - verify indication for use. Administer IV doses as a slow IV push; maximum rate: 5 mg/minute. labetaloL (NORMODYNE,TRANDATE) injection 5 mg 5 mg, intravenous, Every 5 min PRN, high blood pressure, systolic blood pressure greater than 160 mmHg and heart rate greater than 60 beats per minute, Starting on Fanny 04/25/25 at 0936, PACU (only), Maximum dose of labetalol (TRANDATE) is 20 mg while in PACU Look-alike/sound-alike medication - verify indication for use. lactated ringers infusion 20 mL/hr, intravenous, Continuous, Starting on Fanny 04/25/25 at 0730, Pre-op, If fluid restriction is not indicated, infuse at a rate up to 5 mL/kg/hr not to exceed the total replacement volume (2 ml/kg/hr) from the time NPO status was initiated. New Bag 04/25/2025 8:00 AM EDT lidocaine PF (XYLOCAINE) 10 mg/mL (1 %) injection 1 mg 1 mg (0.1 mL), intradermal, As needed, times 1 per IV attempt for IV start pain control, Starting on Fanny 04/25/25 at 0719, Pre-op meperidine (DEMEROL) injection 12.5 mg 12.5 mg, intravenous, Every 15 min PRN, shivering, Starting on Fanny 04/25/25 at 0936, For 2 doses, PACU (only), May repeat initial dose in 15 minutes, once, if initial meperidine (DEMEROL) dose ineffective for shivering. midazolam (PF) (VERSED) injection 2 mg 2 mg, intravenous, As needed, anxiety, Starting on Fanny 04/25/25 at 0719, Pre-op, May repeat in 10 minutes, if needed, if original midazolam (VERSED) ineffective, Indication: Other, Indication: anxiety morphine injection 2 mg 2 mg, intravenous, Every 5 min PRN, for Pain Scale 1-5 if pain not controlled by fentanyl, Starting on Fanny 6/5/25 at 0936, PACU (only), Up to a maximum dose of 12 mg Look-alike/sound-alike medication - verify indication for use. morphine injection 4 mg 4 mg, intravenous, Every 5 min PRN, Pain Scale 6-10 if pain not controlled by fentanyl, Starting on Fanny 04/25/25 at 0936, PACU (only), Up to a maximum dose of 12 mg Look-alike/sound-alike medication - verify indication for use. naloxone (NARCAN) injection 0.1 mg 0.1 mg, intravenous, As needed, respiratory depression, Starting on Fanny 04/25/25 at 0936, For 4 doses, PACU (only), Maximum dose: 0.4 mg Look-alike/sound-alike medication - verify indication for use. ondansetron (PF) (ZOFRAN) injection 4 mg 4 mg, intravenous, Once as needed, nausea, Starting on Fanny 04/25/25 at 0936, For 1 dose, PACU (only), Intravenous administration preferred to be given over 2-5 minutes. sodium chloride 0.9 % flush 3 mL 3 mL, intravenous, As needed, line care, before and after each intermittent use, Starting on Fanny 04/25/25 at 0719, Pre-op sodium chloride 0.9 % flush 3 mL 3 mL, intravenous, Every 12 hours scheduled, First dose on Fanny 04/25/25 at 0900, Pre-op documented in this encounter Active and Recently Administered Medications Times are shown in EDT. Scheduled Medication Order 04/23/2025 04/24/2025 04/25/2025 sodium chloride 0.9 % flush 3 mL 3 mL, intravenous, Every 12 hours scheduled, First dose on Fanny 04/25/25 at 0900, Pre-op 0900 (Due) Continuous Medication Order 04/23/2025 04/24/2025 04/25/2025 lactated ringers infusion 20 mL/hr, intravenous, Continuous, Starting on Fanny 04/25/25 at 0730, Pre-op, If fluid restriction is not indicated, infuse at a rate up to 5 mL/kg/hr not to exceed the total replacement volume (2 ml/kg/hr) from the time NPO status was initiated. 0800 (New Bag - Prov ider: JORGE A Moody)0835 (Anesthesia Volume Adjustment - Provider: JORGE A Moody - Comment: 300 from preop)0840 (Stop Bag - Provider: JORGE A Moody) PRN Medication Order 04/23/2025 04/24/2025 04/25/2025 fentaNYL (SUBLIMAZE) injection 25 mcg 25 mcg, intravenous, Every 5 min PRN, Pain Scale 1-5, Starting on Fanny 04/25/25 at 0936, PACU (only), Up to a maximum dose of 150 mcg. Look-alike/sound-alike medication - verify indication for use. fentaNYL (SUBLIMAZE) injection 50 mcg 50 mcg, intravenous, Every 5 min PRN, Pain Scale 6-10, Starting on Fanny 04/25/25 at 0936, PACU (only), Up to a maximum dose of 150 mcg Look-alike/sound-alike medication - verify indication for use. hydrALAZINE (APRESOLINE) injection 5 mg 5 mg, intravenous, Every 10 min PRN, high blood pressure, systolic blood pressure greater than 160 mmHg, Starting on Fanny 04/25/25 at 0936, PACU (only), Maximum dose of hydrALAZINE (APRESOLINE) is 20 mg while in PACU Look-alike/sound-alike medication - verify indication for use. Administer IV doses as a slow IV push; maximum rate: 5 mg/minute. labetaloL (NORMODYNE,TRANDATE) injection 5 mg 5 mg, intravenous, Every 5 min PRN, high blood pressure, systolic blood pressure greater than 160 mmHg and heart rate greater than 60 beats per minute, Starting on Fanny 04/25/25 at 0936, PACU (only), Maximum dose of labetalol (TRANDATE) is 20 mg while in PACU Look-alike/sound-alike medication - verify indication for use. lidocaine PF (XYLOCAINE) 10 mg/mL (1 %) injection 1 mg 1 mg (0.1 mL), intradermal, As needed, times 1 per IV attempt for IV start pain control, Starting on Fanny 04/25/25 at 0719, Pre-op meperidine (DEMEROL) injection 12.5 mg 12.5 mg, intravenous, Every 15 min PRN, shivering, Starting on Fanny 04/25/25 at 0936, For 2 doses, PACU (only), May repeat initial dose in 15 minutes, once, if initial meperidine (DEMEROL) dose ineffective for shivering. midazolam (PF) (VERSED) injection 2 mg 2 mg, intravenous, As needed, anxiety, Starting on Fanny 04/25/25 at 0719, Pre-op, May repeat in 10 minutes, if needed, if original midazolam (VERSED) ineffective, Indication: Other, Indication: anxiety morphine injection 2 mg 2 mg, intravenous, Every 5 min PRN, for Pain Scale 1-5 if pain not controlled by fentanyl, Starting on Fanny 04/25/25 at 0936, PACU (only), Up to a maximum dose of 12 mg Look-alike/sound-alike medication - verify indication for use. morphine injection 4 mg 4 mg, intravenous, Every 5 min PRN, Pain Scale 6-10 if pain not controlled by fentanyl, Starting on Fanny 04/25/25 at 0936, PACU (only), Up to a maximum dose of 12 mg Look-alike/sound-alike medication - verify indication for use. naloxone (NARCAN) injection 0.1 mg 0.1 mg, intravenous, As needed, respiratory depression, Starting on Fanny 04/25/25 at 0936, For 4 doses, PACU (only), Maximum dose: 0.4 mg Look-alike/sound-alike medication - verify indication for use. ondansetron (PF) (ZOFRAN) injection 4 mg 4 mg, intravenous, Once as needed, nausea, Starting on Fanny 04/25/25 at 0936, For 1 dose, PACU (only), Intravenous administration preferred to be given over 2-5 minutes. sodium chloride 0.9 % flush 3 mL 3 mL, intravenous, As needed, line care, before and after each intermittent use, Starting on Fanny 04/25/25 at 0719, Pre-op documented in this encounter Additional Health Concerns Active Problems Noted Date Diagnosed Date Autogenerated Problem 04/23/2025 documented as of this encounter Care Teams Director Paid Media Relationship Specialty Start Date End Date Harry Valencia MD PCP - General Family Medicine 05/29/19 documented as of this encounter
--- OUTSIDE RECORDS SUMMARY | 2025-04-25 08:00 | XMS_ITS | Encounter Summary ---
Author Organization [facility] tem Address [facility] [id number] [address] [place] [address] Care Team Providers Care Emt Basic Name Role Phone Harry Valencia MD Primary Care Provider [phone] Reason for Visit * Auth/Cert Specialty Diagnoses / Procedures Referred By Tin berkowitz Referred To Contact Diagnoses Cirrhosis of liver with ascites (CMS-HCC) Anemia, unspecified Personal history of arterial venous malformation (AVM) CIRRHOSIS OF LIVER W/ ASCITES, ANEMIA, HISTORY OF ARTERAL VENOUS MALFORMATIONS Procedures [place] ESOPHAGOGASTRODUODENOSCOPY TRANSORAL DIAGNOSTIC ESOPHAGOGASTRODUODENOSCOPY DIAGNOSTIC ENTEROSCOPY PUSH Jesus Emerson MD [address] [place] [address], [address] [place] [address] Phone: tel: fax: Referral ID Status Reason Start Date Expiration Date Visits Re quested Visits Authorized [id number] 1 1 Encounter Details Date Type Department Care Team (Late st Contact Info) Description 04/25/2025 8:00 AM EDT Anesthesia Event [facility] - Endoscopy [address] [place] [phone] Zayra Castro MD [address] [place] [address] Anesthesia Record Procedure Summary Procedure Name Responsible Anesthesiologist Anesthesia Start Time Anesthesia Stop Time ESOPHAGOGASTRODUODENOSCOPY A RGON PLASMA COAGULATION Zayra Castro MD 04/25/25 0800 04/25/25 0853 Events Date Time Event Comment 04/25/2025 0715 0800 An Start 0802 An Start Data 0805 Position 0807 An Induction The patient was reevaluated immediately before moderate or deep sedation use and before anesthesia induction. 0808 Patient Ready for Surgeon 0846 an stop data 0846 Transport/Transfer From the OR 0853 Handoff to RN Transported to :PACU, Spontaneous Ventilation, O2 per Nasal Cannula, 3 LPM Pt. Tolerated procedure well, vital signs stable and document on nursing record Care transferred to receiving RN 0853 An Stop Meds Name Total fentaNYL (SUBLIMAZE) injection 25 mcg propofol (DIPRIVAN) injection 399.49 mg ePHEDrine injection 50 mg/mL 5 mg lactated ringers infusion 600 mL * Agents No agents on file. * Blood No blood administrations on file. Lines, Drains, and Airways Type Details Placement Removal Peripheral IV Placement Date: 04/14; Placement Time: 816; Orientation: Left, Posterior; Location: Hand; Removal Date: 04/25/25; Removal Time: 924; Removal Reason: Patient discharged 04/25/25816 by Hortencia Weaver RN 04/25/25924 by Hortencia Weaver RN documented in this encounter Social History Tobacco Use Types Packs/Day Years [...] on file documented as of this encounter OR Notes * Anesthesia Postprocedure Evaluation - Zayra Castro MD - 04/25/2025 8:53 AM EDT ANESTHESIA POST-EVALUATION [facility] Procedure Summary Date: 04/25/25 Room / Location: [facility] / [facility] Anesthesia Start: 0800 Anesthesia Stop: 852 Procedures: ESOPHAGOGASTRODUODENOSCOPY ARGON PLASMA COAGULATION ENTEROSCOPY PUSH Diagnosis: (CIRRHOSIS OF LIVER W/ ASCITES, ANEMIA, HISTORY OF ARTERAL VENOUS MALFORMATIONS) Providers: Jesus Emerson MD Responsible Provider: Zayra Castro MD Anesthesia Type: MAC ASA Status: 3 Vitals: 04/25/25 0716 BP: (!) 129/30 Pulse: Resp: Temp: 36.5 ??C (97.7 ??F) SpO2: Patient Evaluated: PACU Patient Participation: Complete - patient participated Patient Level of Consciousness: Awake and Alert Pain Score: 0 Pain Management: Adequate Airway Patency: Patent Anesthetic Complications: No Cardiovascular Status: Hemodynamically Stable Respiratory Status: Stable/Baseline and Nonlabored Ventilation Final Anesthesia Type: MAC Does patient meet criteria to D/C from PACU?: Yes Is patient sedated pharmacologically at PACU D/C?: No No notable events documented. * Anesthesia Preprocedure Evaluation - Zayra Castro MD - 04/25/2025 7:10 AM EDT Images from the original note were not included. ANESTHESIA PRE-PROCEDURE EVALUATION [facility] Procedure(s): ESOPHAGOGASTRODUODENOSCOPY DIAGNOSTIC ENTEROSCOPY PUSH ANESTHESIA PHYSICAL EXAM Echocardiogram reviewed No history of anesthetic complications Airway Mallampati: III TM distance: >3 FB Neck ROM: full Patient is not intubated Patient does not have tracheostomy (-) vocal cord disorder Dental : exam normal Pulmonary : exam normal Cardiovascular Exercise tolerance: Good ECG reviewed Rhythm: Regular Rate: Normal Abdominal Other Findings ANESTHESIA PLAN ASA 3 Anesthesia Type: MAC Induction: Intravenous Anesthetic risks, plan and alternatives discussed with Patient. Plan discussed with HRIS ADMINISTRATOR. Airway Management: Awake/Sedated and Nasal Cannula Post op Pain Management: IV Analgesics Transfer to PACU PONV: Intermediate Risk Total Score: 2 Female patient Non-smoker Criteria that do not apply: History of PONV and/or Motion Sickness Intended opioid administration RCRI: Low Risk: Score of 0 = 3.9% (2.8-5.4%) Risk of major cardiac event Score of 1 = 6.0% (4.9-7.4%) Risk of major cardiac event Total Score: 0 Criteria that do not apply: Cerebrovascular Disease Ischemic Heart Disease Congestive Heart Failure Elevated Risk Surgery Pre-operative Treatment with Insulin Pre-operative Creatinine >2 mg/dL / 176.8 mol/L There is no problem list on file for this patient. documented in this encounter Plan of Treatment Not on file documented as of this encounter Goals Goal Patient Goal Type Associated Problems Recent Progress Patient-Stated? Author Autogenera asaf Goal Care Plan Autogenerated Problem No Shefali Zambrano documented as of this encounter Visit Diagnoses Not on filedocumented in this encounter Administered Medications Inactive Administered Medications - up to 3 most recent administrations Medication Order MAR Action Action Date Dose Rate Site ePHEDrine sulfate injection intravenous, As needed, Starting on Fanny 04/25/25 at 0817, Anesthesia Intra-op Given 04/25/2025 8:17 AM EDT 5 mg fentaNYL (SUBLIMAZE) injection intravenous, As needed, Starting on Fanny 04/25/25 at 0807, Anesthesia Intra-op Given 04/25/2025 8:07 AM EDT 25 mcg lactated ringers infusion 20 mL/hr, intravenous, Continuous, Starting on Fanny 04/25/25 at 0730, Pre-op, If fluid restriction is not indicated, infuse at a rate up to 5 mL/kg/hr not to exceed the total replacement volume (2 ml/kg/hr) from the time NPO status was initiated. New Bag 04/25/2025 8:00 AM EDT propofoL (DIPRIVAN) infusion intravenous, As needed, Starting on Fanny 04/25/25 at 0808, Anesthesia Intra-op Rate/Dose Change 04/25/2025 8:14 AM EDT 125 mcg/kg/min 67.05 mL/hr New Bag 04/25/2025 8:11 AM EDT 200 mcg/kg/min 107.28 mL /hr Given 04/25/2025 8:10 AM EDT 30 mg documented in this encounter Additional Health Concerns Active Problems Noted Date Diagnosed Date Autogenerated Problem 04/23/2025 documented as of this encounter Care Teams Emt Basic Relationship Specialty Start Date End Date Harry Valencia MD PCP - General Family Medicine 05/29/19 documented as of this encounter
--- OUTSIDE RECORDS SUMMARY | 2025-04-25 08:00 | XMS_ITS | Encounter Summary ---
Author Organization [facility] tem Address [id number] [address] [place] [address] Care Team Providers Care Ward Service Supervisor Name Role Phone Harry Valencia MD Primary Care Provider [phone] Reason for Visit * Auth/Cert Specialty Diagnoses / Procedures Referred By Tni berkowitz Referred To Contact Diagnoses Cirrhosis of liver with ascites (CMS-HCC) Anemia, unspecified Personal history of arterial venous malformation (AVM) CIRRHOSIS OF LIVER W/ ASCITES, ANEMIA, HISTORY OF ARTERAL VENOUS MALFORMATIONS Procedures [place] ESOPHAGOGASTRODUODENOSCOPY TRANSORAL DIAGNOSTIC ESOPHAGOGASTRODUODENOSCOPY DIAGNOSTIC ENTEROSCOPY PUSH Jesus Emerson MD [address] [place] [address], [address] [place] [address] Phone: tel: fax: Referral ID Status Reason Start Date Expiration Date Visits Re quested Visits Authorized [id number] 1 1 Encounter Details Date Type Department Care Team (Latest Contact Info) Description 04/25/2025 8:00 AM EDT - 04/25/2025 9:00 AM EDT Surgery [facility] - Endoscopy [address] [place] [address] Jesus Emerson MD [address] [place] [address], [address] [place], [place] [id number] ESOPHAGOGASTRODUODENOSCOPY ARGON PLASMA COAGULATION [52860 (CPT )] Surgery Details Date/Time Status Location OR Service Patient Class Case Class Case Type Trauma Case? 04/25/2025 8:00 AM Posted [facility] Elective Panel 1 Procedure LRB Anes Op Region Wound Class Comments ESOPHAGOGASTRODUODENOSCOPY A RGON PLASMA COAGULATION N/A Monitored Anesthesia Care ENTEROSCOPY PUSH N/A Monitored Anesthesia Care Surgeon Surgeon Role Service Panel Jesus Emerson MD Primary Gastroenterology 1 Case Notes REQ 45 TOTAL- INDIRA documented in this encounter Social History Tobacco [...] Sign Reading Time Taken Comments Blood Pressure 122/39 04/25/2025 8:53 AM EDT Pulse 63 04/25/2025 8:53 AM EDT Temperature 36.1 C (97 F) 04/25/2025 8:52 AM EDT Respiratory Rate 21 04/25/2025 8:53 AM EDT Oxygen Saturation 87% 04/25/2025 8:53 AM EDT Inhaled Oxygen Concentration - - [...] Interpersonal Safety: Unknown (01/12/2024) Received from [facility] Safety & Environment Fear of Current or [...] EGD without BiopsyPatient: Shirley Brian Date: April 25ttending MD: Jesus Diamond. Do Not eat or [...] Republican SignatureDr. Jesus Emerson, 04/25/2025 12:05:42 PMWasef Judie, documented in this encounter Plan of Treatment Not on file documented as of this encounter Goals Goal Patient Goal Type Associated Problems Recent Progress Patient-Stated? Author Autogenera asaf Goal Care Plan Autogenerated Problem No Shefali Zambrano documented as of this encounter Procedures Procedure Name Priority Date/Time Associated Diagnosis Comments BEDSIDE GLUCOSE Routine 04/25/2025 8:58 AM EDT ENTEROSCOPY 04/25/2025 8:00 AM EDT CIRRHOSIS OF LIVER W/ ASCITES, ANEMIA, HISTORY OF ARTERAL VENOUS MALFORMATIONS Case Notes REQ 45 TOTAL- INDIRA [place] EGD TRANSORAL CONTROL BLEEDING ANY METHOD 04/25/2025 [...] - 99 mg/dL 04/25/2025 9:03 AM EDT [facility] arterial/capilla ry 04/25/2025 8:58 AM EDT 04/25/2025 9:03 AM EDT us Jesus Emerson MD POINT OF CARE TEST ORDERABLES Fi nal Result [facility] [address] [place] [address], [place] * EGD Report (04/25/2025 7:51 AM [...] PM CARDIOVASCULAR - 04/25/2025 12:06 PM EDT [facility] Patient Name: Shirley Biran Procedure Date: 04/25/2025 7:47 AM CSN: [id number] Date of : 1955 Admit Type: Outpatient Age: 69 Room: [place] [address] Gender: Female Note Status: Finalized Attending MD: [...] the fellow. Procedure Code(s): --- Professional --- 93053, Esophagogastroduodenoscopy, flexible, transoral; diagnostic, including collection of specimen(s) by brushing or washing, when performed (separate procedure) Diagnosis Code(s): --- Professional --- K31.89, Other diseases of stomach and duodenum K55.20, Angiodysplasia of colon without hemorrhage K92.1, Melena (includes Hematochezia) CPT copyright 2022 [employer] [employer]. All rights reserved. The codes documented in this report are preliminary and upon aperture mask etcher review may be revised to meet current compliance requirements. Dr. Jesus Emerson, 04/25/2025 12:05:42 PM Scar Dimas, Number of Addenda: 0 Note Initiated On: 04/25/2025 7:47 AM Procedure Note Jesus Emerson MD - 04/25/2025 [facility] Patient Name: Shirley Brian Procedure Date: 04/25/2025 7:47 AM CSN: [id number] Date of : 1955 Admit Type: Outpatient Age: 69 Room: [place] [address] Gender: Female Note Status: Finalized Attending MD: [...] the fellow. Procedure Code(s): --- Professional --- 17490, Esophagogastroduodenoscopy, flexible, transoral; diagnostic, including collectionof specimen(s) by brushing or washing, when performed (separate procedure) Diagnosis Code(s): --- Professional --- K31.89, Other diseases of stomach andduodenum K55.20, Angiodysplasia of colon without hemorrhage K92.1, Melena (includes Hematochezia) CPT copyright 2022 [employer] [employer]. All rights reserved. The codes documented in this report are preliminary and upon aperture mask etcher reviewmay be revised to meet current compliance [...] - 99 mg/dL 04/25/2025 8:30 AM EDT [facility] arterial/capilla ry 04/25/2025 7:27 AM EDT 04/25/2025 8:30 AM EDT us Jesus Emerson MD POINT OF CARE TEST ORDERABLES Fi nal Result [facility] [address] [place] [address], documented in this encounter Visit Diagnoses Not [...] documented as of this encounter Care Teams Ward Service Supervisor Relationship Specialty Start Date End Date Harry Valencia MD PCP - General Family Medicine 05/29/19 documented as of this encounter
--- OUTSIDE RECORDS SUMMARY | 2025-04-30 11:11 | XMS_ITS | Encounter Summary ---
Author Organization [facility] Address [address] [place] [address] Care Team Providers Care Campaign Management Specialist Name Role Phone Harry Valencia MD Primary Care Provider [phone] Reason for Referral * GI Procedure (Routine) - Pending Review Specialty Diagnoses / Procedures Referred By Tin berkowitz Referred To Contact Gastroenterology Diagnoses Iron deficiency anemia due to chronic blood loss AVM (arteriovenous malformation) of colon Other specified postprocedural states Procedures Capsule Endoscopy Jesus Emerson MD [address] [facility] [place] [address] [facility] [place] [address] [facility] [address] [place] [address] [place] [address] Referral ID Status Reason Start Date Expiration Date V isits Requested Visits Authorized [id number] Pending Review 04/26/2025 04/26/2026 2 2 Encounter Details Date Type Department Care Team (Late st Contact Info) Description 04/26/2025 Orders Only [facility] [address] [place] [address] [place] [address] Sapphire Gaytan, RN Iron deficiency anemia due to chronic blood loss; AVM (arteriovenous malformation) of colon; Other specified postprocedural states Social History Tobacco Use Types Packs/Day Years [...] Info) Description 10/16/2025 1:30 PM EST Follow-Up [facility] Gastroenterology [address] [place] [phone] Beni Gomez MD [address] [facility] 2 [facility] [place] [phone] Scheduled Orders Name Type Priority Associated Diagnoses Orde r Schedule Capsule Endoscopy Endoscopy Routine Iron deficiency anemia due to chronic blood loss AVM (arteriovenous malformation) of colon Other specified postprocedural states Expected: 04/26/2025, Expires: 04/26/2026 documented as of this encounter Visit Diagnoses Diagnosis Iron deficiency anemia due to chronic blood loss Iron deficiency anemia secondary to blood loss (chronic) AVM (arteriovenous malformation) of colon Other specified postprocedural states documented in this encounter Care Teams Campaign Management Specialist Relationship Specialty Start Date End Date Harry Valencia MD [address] [facility] [address] [address] PCP - General 06/20/23 documented as of this encounter
--- OUTSIDE RECORDS SUMMARY | 2025-04-30 11:11 | XMS_ITS | Encounter Summary ---
Author Organization [facility] Address [address] [place] [address] Care Team Providers Care Computer Systems Technology Instructor Name Role Phone Harry Valencia MD Primary Care Provider [phone] Encounter Details Date Type Department Care Team (Late st Contact Info) Description 04/19/2025 Telephone [facility] at [address] [phone] Anna Ayoub RN Social History Tobacco Use Types Packs/Day Years [...] on file documented as of this encounter Miscellaneous Notes * Telephone Encounter - Anna Ayoub RN - 04/19/2025 9:38 AM EDT Scheduled EGD w/ Push/Cirrhosis/AVM's 04/25/25 @0800, PTH, Dr. JAZMIN Emerson ph: 04/24/25 pm, #[phone]. Clinic appt 04/10/25 w/ Patricia and EGD 01/29/25 @ [facility]/ Ki. Called to schedule EGD/Hepatic Cirrhosis. Scheduled 04/24/25 for Cardiac Ablation. We will follow up afterwards re: clearance/blood thinner hold. documented in this encounter Plan of Treatment Upcoming Encounters Date Type Department Care Team (Late st Contact Info) Description 10/16/2025 1:30 PM EST Follow-Up [facility] Gastroenterology [address] [place] [address] Beni Gomez MD [address] [facility] 2 [facility] [place] [address] documented as of this encounter Visit Diagnoses Not on filedocumented in this encounter Care Teams Computer Systems Technology Instructor Relationship Specialty Start Date End Date Harry Valencia MD [address] [facility] [address] [address] PCP - General 06/20/23 documented as of this encounter
--- OUTSIDE RECORDS SUMMARY | 2025-04-30 11:11 | XMS_ITS | Encounter Summary ---
Author Organization [facility] tem Address [id number] [address] [place] [address] Care Team Providers Care Department Store Salesperson Name Role Phone Harry Valencia MD Primary Care Provider [phone] Encounter Details Date Type Department Care Team (Latest Contact Info) Description 04/25/2025 Travel Social History Tobacco Use Types Packs/Day [...] Type Associated Problems Recent Progress Patient-Stated? Author Autogene asaf Goal Care Plan Autogenerated Problem No Shefali Zambrano documented as of this encounter Visit Diagnoses Not on filedocumented in this encounter Additional Health Concerns Active Problems Noted Date Diagnosed Date Autogenerated Problem 04/23/2025 documented as of this encounter Care Teams Department Store Salesperson Relationship Specialty Start Date End Date Harry Valencia MD PCP - General Family Medicine 05/29/19 documented as of this encounter
--- OUTSIDE RECORDS SUMMARY | 2025-04-30 11:11 | XMS_ITS | Encounter Summary ---
Author Organization [facility] Address [address] [place] [address] Care Team Providers Care Warp Dresser Name Role Phone Harry Valencia MD Primary Care Provider [phone] Harry Valencia MD Primary Care Provider [phone] Encounter Details Date Type Department Care Team (Late st Contact Info) Description 11/19/2024 Orders Only [facility] [address] [place] [phone] Micheal Vincent MD [address] [place] [address] Social History Tobacco Use Types Packs/Day Years [...] on filedocumented in this encounter Care Teams Warp Dresser Relationship Specialty Start Date End Date Harry Valencia MD PCP - General Family Medicine 11/26/24 04/04/25 Harry Valencia MD [address] [place] [address] PCP - General Family Medicine 04/05/25 documented as of this encounter
--- OUTSIDE RECORDS SUMMARY | 2025-04-30 11:11 | XMS_ITS | Encounter Summary ---
Author Organization [facility] Address [address] [place] [address] Care Team Providers Care Oil Sprayer Name Role Phone Harry Valencia MD Primary Care Provider [phone] Encounter Details Date Type Department Care Team (Late st Contact Info) Description 04/22/2025 Orders Only [facility] Heart at [facility] [address] [place] [address] Provider, MD Zuri [address] [place] [address] Social History Tobacco Use Types Packs/Day Years [...] Info) Description 10/16/2025 1:30 PM EST Follow-Up [address] [phone] Beni Gomez MD [address] [facility] [place] [phone] documented as of this encounter Procedures Procedure Name Priority Date/Time Associated Diagnosis Comments CBC Routine 04/22/2025 2:02 PM EDT LAB RESULT SCAN Routine 03/07/2025 1:[address] ABDOMEN PELVIS WO IV CONTRAST Routine 03/05/2025 1:56 PM EDT ECG 12-LEAD Routine 03/05/2025 1:54 PM EDT documented in this encounter Results * CBC (04/22/2025 2:02 PM EDT) Blood Venous blood specimen / Unknown Historical Provider LAB BLOOD ORDERAB LES * LAB RESULT SCAN (03/07/2025 1:56 PM EDT) Historical Provider LAB BLOOD ORDERAB LES * CT abdomen pelvis wo IV contrast (03/05/2025 1:56 PM EDT) Anatomical Region Laterality Modality Body, Pelvis, Abdomen Computed T omography Historical Provider IMG CT PROCEDURES * ECG 12 lead (03/05/2025 1:54 PM EDT) Historical Provider ECG ORDERABLES documented in this encounter Visit Diagnoses Not on filedocumented in this encounter Care Teams Oil Sprayer Relationship Specialty Start Date End Date Harry Valencia MD [address] [facility] [address] [address] PCP - General 06/20/23 documented as of this encounter
--- OUTSIDE RECORDS SUMMARY | 2025-04-30 11:11 | XMS_ITS | Clinical Summary ---
Author Organization [facility] Address [address] [place] [address] Care Team Providers Care Chest Painting And Sealing Supervisor Name Role Phone Harry Valencia MD [...] on file Insurance MEDICARE AET Care Teams Chest Painting And Sealing Supervisor Relationship Specialty Start Date End Date Harry Valencia MD [address] [place] [address] PCP - General Family Medicine 04/05/25
--- OUTSIDE RECORDS SUMMARY | 2025-04-30 11:11 | XMS_ITS | Encounter Summary ---
Author Organization [facility] Address [address] [place] [address] Care Team Providers Care Licensed Retail Supervisor Name Role Phone Harry Valencia MD Primary Care Provider [phone] Encounter Details Date Type Department Care Team (Latest Contact Info) Description 04/18/2025 Travel Social History Tobacco Use Types Packs/Day Years Used Date Smoking Tobacco: Never Smokeless Tobacco: Never Alcohol Use Standard Drinks/Week Comments Not Currently 0 (1 standard drink = 0.6 oz pur e alcohol) [place] Safety & Environment Answer Date Rec orded [...] Info) Description 10/16/2025 1:30 PM EST Follow-Up [facility] Gastroenterology [address] [place] [phone] Beni Gomez MD [address] [facility] 2 [facility] [place] [address] documented as of this encounter Visit Diagnoses Not on filedocumented in this encounter Care Teams Licensed Retail Supervisor Relationship Specialty Start Date End Date Harry Valencia MD [address] [place] [address] PCP - General 06/20/23 documented as of this encounter
--- OUTSIDE RECORDS SUMMARY | 2025-04-30 11:12 | XMS_ITS | Encounter Summary ---
Author Organization [facility] Address [address] [place] [address] Care Team Providers Care It Software Developer Name Role Phone Harry Valencia MD Primary Care Provider [phone] Encounter Details Date Type Department Care Team (Late st Contact Info) Description 04/17/2025 Orders Only [facility] [address] [place] [phone] Cande Steele MA Abnormal laboratory test Social [...] Info) Description 10/16/2025 1:30 PM EST Follow-Up [facility] at [facility] [address] [place] [phone] Beni Gomez MD [address] [facility] 2 [facility] [place] [address] Scheduled Orders Name Type Priority Associated Diagnoses Orde r Schedule CBC and differential Lab Routine Abnormal laboratory test Expected: 04/17/2025 (Approximate), Expires: 04/17/2026 documented as of this encounter Visit Diagnoses Diagnosis Abnormal laboratory test Other abnormal clinical finding documented in this encounter Care Teams It Software Developer Relationship Specialty Start Date End Date Harry Valencia MD [address] [facility] [place] [address] PCP - General 06/20/23 documented as of this encounter
--- OUTSIDE RECORDS SUMMARY | 2025-04-30 11:12 | XMS_ITS | Referral Summary ---
Author Organization [facility] Address [address] [place] [address] Care Team Providers Care Machine Clerical Verifier Name Role Phone Harry Suárez MD Primary Care Provider [phone] Encounters Date Type Department Care Team Description 04/26/2025 Orders Only [facility] [address] [place] [address] [place] [phone] Sapphire Gaytan, MIHIR Iron deficiency anemia due to chronic blood loss; AVM (arteriovenous malformation) of colon; Other specified postprocedural states 04/23/2025 11:45 AM EDT Office Visit [place] [address] [place] [phone] Rogers Catalan MD Persistent atrial fibrillation (CMS/HCC) (Primary Dx) 04/22/2025 Orders Only [facility] [address] [place] [phone] ProviderZuri MD 04/19/2025 Telephone [facility] at [facility] [address] [facility] [place] [phone] Anna Ayoub RN 04/18/2025 Travel 04/18/2025 Orders Only [facility] Pre-Operation [address] [place] [phone] NedrowFanta clifford CNP Preoperative testing (Primary Dx); Preop testing; Type 2 diabetes mellitus with other specified complication, unspecified whether termite 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 (CMS/HCC) 04/17/2025 Orders Only [facility] [address] [place] [address] Cande Steele MA Abnormal laboratory test 04/10/2025 1:30 PM EDT Follow-Up [facility] at [facility] Gastroenterology [address] [place] [address] Beni Gomez MD Cirrhosis of liver with ascites, unspecified hepatic cirrhosis type (CMS/HCC) (Primary Dx) 03/06/2025 Orders Only [facility] [address] [place] [phone] Nubia Martin MD 03/05/2025 10:05 PM EDT Ancillary Procedure [facility] [address] [place] [phone] Awareness of heartbeats 02/26/2025 Orders Only [facility] [address] [place] [address] Cande Steele MA Paroxysmal atrial fibrillation (CMS/HCC) 02/26/2025 1:45 PM EDT Office Visit [facility] [address] [place] [address] Rogers Catalan MD Hepatic cirrhosis, unspecified hepatic cirrhosis type, unspecified whether ascites present (CMS/HCC); Paroxysmal atrial fibrillation (CMS/HCC) 02/04/2025 6:05 PM EDT Ancillary Procedure [facility] [address] [place] [phone] Awareness of heartbeats 01/29/2025 Travel 01/29/2025 9:53 AM EDT - 01/29/2025 11:59 PM EDT Hospital Encounter [facility] Endoscopy [address] [place] [address] Jesus Emerson MD Bhatt, Shashi B., MD Wikaryasz, Andrew, CAA Hepatic cirrhosis, unspecified hepatic cirrhosis type, unspecified whether ascites present (CMS/HCC) Discharge Disposition: Home or Self Care () 01/29/2025 11:55 AM EDT Anesthesia Event [facility] [address] [place] [address] Henry uBll MD Meehl, Austin, MD from Last 3 Months Allergies Active Allergy [...] oxide (Mag-Ox) 400 mg (241.3 mg magnesium) tabletIndications:Pa roxysmal atrial fibrillation (CMS/HCC) Take 1 tablet (400 mg) by mouth once daily as directed. 90 tablet 3 04/19/2024 Active furosemide (Lasix) 20 mg tabletIndications:Pa roxysmal atrial fibrillation (CMS/HCC) Take 1 tablet (20 mg) by mouth in the morning. 90 tablet 3 07/12/2024 Active metoprolol tartrate (Lopressor) 100 mg tabletIndications:Pa roxysmal atrial fibrillation (CMS/HCC) Take 1 tablet (100 mg) by mouth two times daily. 180 tablet 3 11/09/2024 Active Additional Information Patient not taking.Reported on 04/18/2025 amiodarone (Pacerone) 200 mg tabletIndications:Pa roxysmal atrial fibrillation (CMS/HCC) Take 2 tablets (400 mg) by mouth two times daily for 14 days, THEN 1 tablet (200 mg) in the morning. 146 tablet 12/18/2024 Active metoprolol succinate XL (Toprol-XL) 25 mg 24 hr tabletIndications:Pa roxysmal atrial fibrillation (CMS/HCC) Take 1 tablet (25 mg) by mouth in the morning. Do not crush or chew. 90 tablet 3 12/18/2024 Active Additional Information Patient not taking.Reported on 04/18/2025 spironolactone (Aldactone) 25 mg tablet TAKE 2 TABLETS BY MOUTH DAILY FOR 3 DAYS 12/25/2024 Active ondansetron ODT (Zofran-ODT) 4 mg disintegrating tablet Take 4 mg by mouth every 8 (eight) hours if needed for nausea or vomiting. Active spironolactone (Aldactone) 50 mg tabletIndications:Ci rrhosis of liver with ascites, unspecified hepatic cirrhosis type (CMS/HCC) Take 1 tablet (50 mg) by mouth in the morning. 30 tablet 11 04/10/2025 Active sucralfate (Carafate) 1 gram tablet Take 1 g by mouth before breakfast and before evening meal. 04/05/2025 Active Active Problems Problem Noted Date Diagnosed [...] Assessment & Plan (06/28/2023 3:16 PM EDT): -[id number] at least 4 for age, gender, hypertension, [...] drink = 0.6 oz pur e alcohol) [place] Safety & Environment Answer Date Rec orded [...] Pulse 68 04/23/2025 11:44 AM EDT Temperature 36 C (96.8 F) 01/29/2025 12:50 PM EDT Respiratory Rate 20 01/29/2025 12:50 PM EDT Oxygen Saturation 98% 04/23/2025 11:44 AM EDT Inhaled Oxygen Concentration - - Weight 90.3 kg (199 lb) 04/23/2025 11:44 AM EDT Height 167.6 cm (5' 6 ) 04/23/2025 11:44 AM EDT Body Mass Index 32.12 04/23/2025 11:44 AM EDT Plan of Treatment Upcoming Encounters Date Type Department Care Team (Late st Contact Info) Description 10/16/2025 1:30 PM EST Follow-Up [facility] Gastroenterology [address] [place] [address] Beni Gomez MD [address] [facility] 2 [facility] [address] Medical Devices Implanted Type Area Family Reunification Specialist Device Identifier Shelf Expiration Date Model / Serial / Lot Monitor,Cardi ac,Lux,Dxii+I - [id number] - [id number] Implanted:Qty : 1 on 08/06/2024 by Rogers Catalan MD at [facility] Implantable Loop Recorder Left: Chest SuppreMol 12/28/2025 [id number] / [id number] / Procedures Procedure Name Priority Date/Time Associated Diagnosis Comments CBC Routine 04/22/2025 2:02 PM EDT CARDIAC DEVICE CHECK CHECK - REMOTE Routine 04/01/2025 12:44 PM EDT Awareness of heartbeats LAB RESULT SCAN Routine 03/07/2025 1:56 PM EDT CARDIAC DEVICE CHECK - REMOTE - LOOP RECORDER (ILR) Routine 03/06/2025 12:[address] ABDOMEN PELVIS WO IV CONTRAST Routine 03/05/2025 1:56 PM EDT ECG 12-LEAD Routine 03/05/2025 1:54 PM EDT CARDIAC DEVICE CHECK - REMOTE - LOOP RECORDER (ILR) Routine 02/07/2025 9:53 AM EDT Awareness of heartbeats EGD Routine 01/29/2025 12:18 PM EDT Hepatic cirrhosis, unspecified hepatic cirrhosis type, unspecified whether ascites present (CMS/HCC) POCT GLUCOSE METER UNSOLICITED RESULTS Routine 01/29/2025 11:41 AM EDT POCT GLUCOSE METER UNSOLICITED RESULTS Routine 01/29/2025 10:20 AM EDT from Last 3 Months Results * CBC (04/22/2025 2:02 PM EDT) Blood Venous blood specimen / Unknown Historical Provider LAB BLOOD ORDERAB LES * CARDIAC DEVICE CHECK - REMOTE - LOOP RECORDER (ILR) (04/01/2025 12:44 PM EDT) Only the most recent of2 resultswithin the time period is included. Rogers Catalan MD CV IMPLANTABLE CARDI AC DEVICE PROCEDURES CPACS * LAB RESULT SCAN (03/07/2025 1:56 PM EDT) Historical Provider LAB BLOOD ORDERAB LES * Cardiac device check - Remote loop recorder (ILR) (03/06/2025 12:00 AM EDT) Anatomical Region Laterality Modality Other 03/06/2025 Nubia Martin MD CV IMPLANTABLE CARDI AC DEVICE PROCEDURES * CT abdomen pelvis wo IV contrast (03/05/2025 1:56 PM EDT) Anatomical Region Laterality Modality Body, Pelvis, Abdomen Computed T omography Historical Provider IMG CT PROCEDURES * ECG 12 lead (03/05/2025 1:54 PM EDT) Historical Provider ECG ORDERABLES * EGD (01/29/2025 12:18 PM EDT) Anatomical [...] - 105 mg/dL 01/29/2025 11:53 AM EDT [facility] Comment:ltolles Blood Capillary blood specimen / Unknown 01/29/2025 11:41 AM EDT 01/29/2025 11:53 AM EDT Narrative [facility] - 01/29/2025 11:53 AM EDT Waived Testing in the ED is performed under the ED CLIA certificate #[id number]. Jesus Emerson MD LAB BLOOD ORDERABLES [facility] [address] [place] [address] from Last 3 Months Care Teams Machine Clerical Verifier Relationship Specialty Start Date End Date Harry Suárez MD [address] [facility] [address] PCP - General 06/20/23
--- OUTSIDE RECORDS SUMMARY | 2025-04-30 11:12 | XMS_ITS | Encounter Summary ---
Author Organization [facility] Address [address] [place] [address] Care Team Providers Care Maternity Nurse Name Role Phone Harry Valencia MD Primary Care Provider [phone] Encounter Details Date Type Department Care Team (Late st Contact Info) Description 03/06/2025 Orders Only [facility] [address] [place] [address] Nubia Martin MD [address] [place] [address] Social History Tobacco Use Types [...] Info) Description 10/16/2025 1:30 PM EST Follow-Up [facility] [address] [place] [address] Beni Gomez MD [address] [facility] [address] 2 [facility] [place] [address] documented as of this encounter Procedures Procedure Name Priority Date/Time Associated Diagnosis Comments CARDIAC DEVICE CHECK - REMOTE - LOOP RECORDER (ILR) Routine 03/06/2025 12:00 AM EDT documented in this encounter Results * Cardiac device check - Remote loop recorder (ILR) (03/06/2025 12:00 AM EDT) Anatomical Region Laterality Modality Other 03/06/2025 Judahr Thalia Martin MD CV IMPLANTABLE CARDI AC DEVICE PROCEDURES documented in this encounter Visit Diagnoses Not on filedocumented in this encounter Care Teams Maternity Nurse Relationship Specialty Start Date End Date Harry Valencia MD [address] [facility] [place] [address] PCP - General 06/20/23 documented as of this encounter
--- OUTSIDE RECORDS SUMMARY | 2025-04-30 11:12 | XMS_ITS | Clinical Summary ---
Author Organization [facility] [employer] s [employer] Address [id number] [address] [place] [address] Care Team Providers Care Deputy Head Name Role Phone Harry Valencia MD Primary Care Provider [phone] Allergies Active Allergy Reactions Criticality Noted Date Comments Sulfa (Sulfonamide Antibiotics) 07/2019 Medications glimepiride (AMARYL) 1 mg tablet Take 1 tablet (1 mg total) by mouth every morning before breakfast. Active metFORMIN (GLUCOPHAGE) 500 mg tablet Take 1 tablet (500 mg total) by mouth in the morning and 1 tablet (500 mg total) before bedtime. Active ramipriL (ALTACE) 5 mg capsule Take 1 capsule (5 mg total) by mouth in the morning. Active simvastatin (ZOCOR) 10 mg tablet Take 10 mg by mouth nightly. Active venlafaxine (EFFEXOR) 25 mg tablet Take 1 tablet (25 mg total) by mouth in the morning and 1 tablet (25 mg total) before bedtime. Active apixaban (ELIQUIS) 5 mg tablet Take 1 tablet (5 mg total) by mouth in the morning and 1 tablet (5 mg total) before bedtime. Active aspirin 81 mg Take 81 mg by mouth in the morning. 04/25/20 25 Discontinu ed(Therapy completed) Encounters Date Type Department Care Team Description 04/25/2025 8:00 AM EDT - 04/25/2025 9:00 AM EDT Surgery [facility] - Endoscopy [address] [place] [address] Jesus Emerson MD ESOPHAGOGASTRODUODENOSCOPY ARGON PLASMA COAGULATION [43991 (CPT )] 04/25/2025 8:00 AM EDT Anesthesia Event [facility] Endoscopy [address] [place] [phone] Zayra Castro MD 04/25/2025 5:38 AM EDT - 04/25/2025 9:36 AM EDT Hospital Encounter [facility] - Surgery [address] [place] [phone] Jesus Emerson MD Melena (Primary Dx) Discharge Disposition: Home 04/25/2025 Travel 04/10/2025 Travel from Last 3 Months Immunizations Immunization [...] Mass Index 31.8 04/25/2025 6:56 AM EDT Plan of Treatment Health Maintenance Due Date Last Done Comments Depression Screening 1968 Tobacco Screening 1968 Adult BMI Follow Up Plan 1974 Zoster (Shingles) Vaccine (1 of 2) 2006 Fall Risk Screening 2021 COVID-19 Vaccine (3 - 2023-2 5 season) 2024 09/29/2021, 01/25/2021 Influenza Vaccine 07/22/2025 12/29/2024, , 08/11/2021, Additional history exists Adult BMI Screening 04/25/2026 04/25/2025 DTaP,Tdap and Td Vaccines (3 - Td or Tdap) 07/20/2032 07/20/2022, 03/12/2016 Goals Goal Patient Goal Type Associated Problems Recent Progress Patient-Stated? Author Autogenera asaf Goal Care Plan Autogenerated Problem No Shefali Zambrano Medical Devices Not on file Procedures Procedure Name Priority Date/Time Associated Diagnosis Comments BEDSIDE GLUCOSE Routine 04/25/2025 8:58 AM EDT ENTEROSCOPY 04/25/2025 8:00 AM EDT CIRRHOSIS OF LIVER W/ ASCITES, ANEMIA, HISTORY OF ARTERAL VENOUS MALFORMATIONS Case Notes REQ 45 TOTAL- INDIRA OK EGD TRANSORAL CONTROL BLEEDING ANY METHOD 04/25/2025 8:00 AM EDT CIRRHOSIS OF LIVER W/ ASCITES, ANEMIA, HISTORY OF ARTERAL VENOUS MALFORMATIONS Case Notes REQ 45 TOTAL- INDIRA PROVATION EGD Routine 04/25/2025 7:51 AM EDT EGD 04/25/2025 7:47 AM EDT BEDSIDE GLUCOSE Routine 04/25/2025 7:27 AM EDT PROTIME & INR Routine 04/10/2025 3:00 PM EDT Unspecified cirrhosis of liver (CMS-HCC) Other ascites COMPREHENSIVE METABOLIC PANEL Routine 04/10/2025 3:00 PM EDT Unspecified cirrhosis of liver (CMS-HCC) Other ascites from Last 3 Months Results * (ABNORMAL) Bedside Glucose *Place/Obtain serum glucose if >500 per glucometer. (04/25/2025 8:58 AM EDT) Only the most recent of2 resultswithin the time period is included. Bedside Glucose (POC) 213(H) 65 - 99 mg/dL 04/25/2025 9:03 AM EDT [facility] arterial/capilla ry 04/25/2025 8:58 AM EDT 04/25/2025 9:03 AM EDT us Jesus Emerson MD POINT OF CARE TEST ORDERABLES Fi nal Result [facility] [address] [place] [address], [place] * EGD Report (04/25/2025 7:51 AM [...] PM CARDIOVASCULAR - 04/25/2025 12:06 PM EDT [facility] Patient Name: Shirley Brian Procedure Date: 04/25/2025 7:47 AM CSN: [id number] Date of : 1955 Admit Type: Outpatient Age: 69 Room: [place] [address] Gender: Female Note Status: Finalized Attending MD: [...] the fellow. Procedure Code(s): --- Professional --- 36763, Esophagogastroduodenoscopy, flexible, transoral; diagnostic, including collection of specimen(s) by brushing or washing, when performed (separate procedure) Diagnosis Code(s): --- Professional --- K31.89, Other diseases of stomach and duodenum K55.20, Angiodysplasia of colon without hemorrhage K92.1, Melena (includes Hematochezia) CPT copyright 2022 [employer]. All rights reserved. The codes documented in this report are preliminary and upon pigs feet finisher review may be revised to meet current compliance requirements. Dr. Jesus Emerson, 04/25/2025 12:05:42 PM Scar Dimas, Number of Addenda: 0 Note Initiated On: 04/25/2025 7:47 AM Procedure Note Jesus Emerson MD - 04/25/2025 [facility] Patient Name: Shirley Brian Procedure Date: 04/25/2025 7:47 AM CSN: [id number] Date of : 1955 Admit Type: Outpatient Age: 69 Room: [place] [address] Gender: Female Note Status: Finalized Attending MD: [...] the fellow. Procedure Code(s): --- Professional --- 85213, Esophagogastroduodenoscopy, flexible, transoral; diagnostic, including collectionof specimen(s) by brushing or washing, when performed (separate procedure) Diagnosis Code(s): --- Professional --- K31.89, Other diseases of stomach andduodenum K55.20, Angiodysplasia of colon without hemorrhage K92.1, Melena (includes Hematochezia) CPT copyright 2022 [employer]. All rights reserved. The codes documented in this report are preliminary and upon pigs feet finisher reviewmay be revised to meet current compliance requirements. Dr. Jesus Emerson, 04/25/2025 12:05:42 PM Scar Dimas, Number of Addenda: 0 Note Initiated On: 04/25/2025 7:47 AM us Jesus Emerson MD GI PROCEDURE ORDERABLES Edited R esult - Final PM CARDIOVASCULAR * (ABNORMAL) Protime & INR (04/10/2025 3:00 PM EDT) PROTIME 17.4(H) 9.8 - 13.2 sec 04/10/2025 4:31 PM EDT [facility] INR 1.5(H) 0.9 - 1.2 04/10/2025 4:31 PM EDT [facility] Blood Venous blood / Unknown Venipuncture / Unknown 04/10/2025 3:00 PM EDT 04/10/2025 3:00 PM EDT us Beni Gomez MD LAB BLOOD ORDERABLES Final R esult [facility] [address] [place] [address], [place] [phone] * (ABNORMAL) Comprehensive metabolic panel (04/10/2025 3:00 PM EDT) SODIUM 143 134 - 146 mmol/L 04/10/2025 4:18 PM EDT [facility] POTASSIUM 4.7 3.5 - 5.0 mmol/L 04/10/2025 4:18 PM EDT [facility] CHLORIDE 109 98 - 109 mmol/L 04/10/2025 4:18 PM EDT [facility] CARBON DIOXIDE 23 22 - 32 mmol/L 04/10/2025 4:18 PM EDT [facility] ANION GAP 11 5 - 15 mmol/L 04/10/2025 4:18 PM EDT [facility] BLOOD UREA NITROGEN 21 5 - 27 mg/dL 04/10/2025 4:18 PM EDT [facility] CREATININE 0.69 0.40 - 1.00 mg/dL 04/10/2025 4:18 PM EDT [facility] Comment:METHOD TRACEABLE TO IDMS STANDARD GLUCOSE 227(H) 65 - 99 mg/dL 04/10/2025 4:18 PM EDT [facility] CALCIUM 9.5 8.5 - 10.5 mg/dL 04/10/2025 4:18 PM EDT [facility] TOTAL PROTEIN 7.0 6.0 - 8.0 g/dL 04/10/2025 4:18 PM EDT [facility] ALBUMIN 3.6 3.2 - 5.3 g/dL 04/10/2025 4:18 PM EDT [facility] ALKALINE PHOSPHATASE 98 39 - 130 U/L 04/10/2025 4:18 PM EDT [facility] AST 21 <=41 U/L 04/10/2025 4:18 PM EDT [facility] ALT 13 <=31 U/L 04/10/2025 4:18 PM EDT [facility] BILIRUBIN,TOTAL 1.4(H) 0.3 - 1.2 mg/dL 04/10/2025 4:18 PM EDT [facility] EGFR Non-Race Dependent >90 >=60 ml/min/1.7 3sq.m 04/10/2025 4:18 PM EDT [facility] Comment: Reported eGFR is based on the CKD-EPI 2020 equation that does not use a race coefficient. Blood Venous blood / Unknown Venipuncture / Unknown 04/10/2025 3:00 PM EDT 04/10/2025 3:00 PM EDT us Beni Gomez MD LAB BLOOD ORDERABLES Final R esult [facility] 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
--- OUTSIDE RECORDS SUMMARY | 2025-04-30 11:12 | XMS_ITS | Clinical Summary ---
Author Organization [facility] Address [address] [place] [address] Care Team Providers Care Shipyard Painting Supervisor Name Role Phone Harry Suárez MD Primary Care Provider [phone] Allergies Active Allergy Reactions Criticality Noted Date [...] in the morning. 90 tablet 3 07/12/2024 5 Active metoprolol tartrate (Lopressor) 100 mg tabletIndications:Pa roxysmal atrial fibrillation (CMS/HCC) Take 1 tablet (100 mg) by mouth two times daily. 180 tablet 3 11/09/2024 5 Active Additional Information Patient not taking.Reported on 04/18/2025 amiodarone (Pacerone) 200 mg tabletIndications:Pa roxysmal atrial fibrillation (CMS/HCC) Take 2 tablets (400 mg) by mouth two times daily for 14 days, THEN 1 tablet (200 mg) in the morning. 146 tablet 12/18/2024 6 Active metoprolol succinate XL (Toprol-XL) 25 mg 24 hr tabletIndications:Pa roxysmal atrial fibrillation (CMS/HCC) Take 1 tablet (25 mg) by mouth in the morning. Do not crush or chew. 90 tablet 3 12/18/2024 6 Active Additional Information Patient not taking.Reported on [...] in the morning. 30 tablet 11 04/10/2025 6 Active sucralfate (Carafate) 1 gram tablet Take [...] Assessment & Plan (06/28/2023 3:16 PM EDT): -[id number] at least 4 for age, gender, hypertension, [...] Department Care Team Description 04/26/2025 Orders Only [facility] Gastroenterology [address] [place] [phone] Sapphire Gaytan, RN Iron deficiency anemia due to chronic blood loss; AVM (arteriovenous malformation) of colon; Other specified postprocedural states 04/23/2025 11:45 AM EDT Office Visit [facility] [address] [place] [address] Rogers Catalan MD Persistent atrial fibrillation (CMS/HCC) (Primary Dx) 04/22/2025 Orders Only [facility] [address] [place] [address] ProviderZuri MD 04/19/2025 Telephone [facility] [address] [place] [phone] Anna Ayoub RN 04/18/2025 Travel 04/18/[address] [facility] Pre-Operation [address] [place] [phone] Fanta Espino CNP Preoperative testing (Primary Dx); Preop testing; Type 2 diabetes mellitus with other specified complication, unspecified whether intermediate manager insulin use (CMS/HCC) 04/17/2025 Orders Only [facility] [address] [place] [address] Cande Steele MA Abnormal laboratory test 04/10/2025 1:30 PM EDT Follow-[facility] [address] [place] [address] Beni Gomez MD Cirrhosis of liver with ascites, unspecified hepatic cirrhosis type (CMS/HCC) (Primary Dx) 03/06/2025 Orders Only [facility] [address] [place] [address] Nubia Martin MD 03/05/2025 10:05 PM EDT Ancillary Procedure [facility] [address] [place] [phone] Awareness of heartbeats 02/26/2025 1:45 PM EDT Office Visit [facility] [address] [facility] [place] [address] Rogers Catalan MD Hepatic cirrhosis, unspecified hepatic cirrhosis type, unspecified whether ascites present (CMS/HCC); Paroxysmal atrial fibrillation (CMS/HCC) 02/26/2025 Orders Only [facility] [address] [facility] [place] [address] Cande Steele MA Paroxysmal atrial fibrillation (CMS/HCC) 02/04/2025 6:05 PM EDT Ancillary Procedure [facility] [address] [place] [phone] Awareness of heartbeats 01/29/2025 11:55 AM EDT Anesthesia Event [facility] Endoscopy [address] [place] [phone] Henry Bull MD Meehl, Austin, MD 01/29/2025 9:53 AM EDT - 01/29/2025 11:59 PM EDT Hospital Encounter [facility] Endoscopy [address] [place] [phone] Jesus Emerson MD Bhatt, Shashi B., MD Wikaryasz, Andrew, CAA Hepatic cirrhosis, unspecified hepatic cirrhosis type, unspecified whether ascites present (CMS/HCC) Discharge Disposition: Home or Self Care () 01/29/2025 Travel from Last 3 Months Immunizations Name [...] drink = 0.6 oz pur e alcohol) [place] Safety & Environment Answer Date Rec orded [...] Info) Description 10/16/2025 1:30 PM EST Follow-Up [facility] Gastroenterology [address] [place] [phone] Beni Gomez MD [address] [facility] [address] [facility] [place] [address] Health Maintenance Due Date Last Done Comments [...] this topic Medical Devices Implanted Type Area Group Managing Director Device Identifier Shelf Expiration Date Model / Serial / Lot Monitor,Cardi ac,Lux,Dxii+I cm - [id number] - [id number] Implanted:Qty : 1 on 08/06/2024 by Rogers Catalan MD at [facility] Implantable Loop Recorder Left: Chest [employer] 12/28/2025 [id number] / [id number] / Procedures Procedure Name Priority Date/Time Associated [...] - 105 mg/dL 01/29/2025 11:53 AM EDT [facility] Comment:ltolles Blood Capillary blood specimen / Unknown 01/29/2025 11:41 AM EDT 01/29/2025 11:53 AM EDT Narrative [facility] - 01/29/2025 11:53 AM EDT Waived Testing in the ED is performed under the ED CLIA certificate #[id number]. Jesus Emerson MD LAB BLOOD ORDERABLES [facility] [address] [place] [address] from Last 3 Months Care Teams Shipyard Painting Supervisor Relationship Specialty Start Date End Date Harry Suárez MD [address] [facility] [place] [address] PCP - General 06/20/23
[2025-04-30 11:34] LABS: Basophils Percent Auto 0.6 % (0.2-2.0); Eosinophils Absolute Auto 0.2 10^3/uL (0.0-0.7); Eosinophils Percent Auto 3.7 % (0.9-7.0); Hematocrit 25.9 % (36.0-48.0); Hemoglobin 7.3 g/dL (12.0-16.0); Immature Granulocytes Abs Auto 0.02 10^3/uL (0.00-0.03); Immature Granulocytes Pct Auto 0.3 % (0.0-0.5); Lymphocytes Absolute Auto 1.4 10^3/uL (1.2-3.8); Lymphocytes Percent Auto 21.8 % (20.5-60.0); Mean Corpuscular HGB Conc 28.2 g/dL (29.9-35.2); Mean Corpuscular Hemoglobin 23.2 pg (26.7-34.0); Mean Corpuscular Volume 82.5 fL (81.0-99.0); Monocytes Absolute Auto 0.4 10^3/uL (0.3-0.8); Monocytes Percent Auto 6.6 % (1.7-12.0); Neutrophils Absolute Auto 4.3 10^3/uL (1.4-6.5); Platelet Count 212 10^3/uL (150-450); Red Blood Count 3.14 10^6/uL (4.20-5.40); White Blood Count 6.5 10^3/uL (4.0-11.0)
== END 2025-04-30 11:05 | disposition home or self-care (01) ==
LOC: LAB 11:10
PROVIDERS: PCP Family Medicine; Visit Provider Internal Medicine Cardiovascular Disease
DX: I48.19 Other persistent atrial fibrillation (principal)
CPT/HCPCS: 36415; 85025

== ENCOUNTER 2025-06-10 15:20 | Outpatient (OUT) | payer MEDICARE, SELFPAY ==
--- OUTSIDE RECORDS SUMMARY | 2025-04-10 08:56 | XMS_ITS ---
Author Organization [facility] in [place] Address [address] [place] [address] Care Team Providers Care Convention Services Manager Name Role Phone Shaq Valencia Primary Care Provider REASON FOR VISIT lab results Encounters Encounter Location Date Provider Diagnosis [facility] [address] [place] [address] 04/10/2025 Shaq Valencia Plan Of Treatment No Information Progress Notes * Shirley BRIAN ADOB: [birth year] (69 yo F)Acc No.[id number]:04/10/2025 Patient: Shirley ULRICH :1955 A ge:69 Y S ex:Female Address:[address] [place] [address], [address] * true * Date: Generated for Jamaal deshpnade/Denise/eTransmitting on: 0 06/10/2025 03:27 PM EDT
--- OUTSIDE RECORDS SUMMARY | 2025-04-19 04:29 | XMS_ITS ---
Author Organization [facility] Address [address] [place] [address] Care Team Providers Care Weed Inspector Name Role Phone Shaq Valencia Primary Care Provider REASON FOR VISIT pink eye Medications Medication SIG (Take, Route, Frequency, Duration) Notes Start Date End Date Status Djxlztqz-Zdpnkosts-Swcbcab h 3.5-84882-1.1 1 drop into affected eye Ophthalmic Four times a day for 7 days 04/19/2025 Active Encounters Encounter Location Date Provider Diagnosis [address] [address] 04/19/2025 Shaq Valencia Plan Of Treatment Medication Medication Name Sig Start Date Stop Date Notes Rqrivxts-Piwsjsdwz-Cqulohml 3.5-39847-2.1 1 drop into affected eye Ophthalmic Four times a day for 7 days 04/19/2025 Progress Notes * Shirley BRIAN ADOB: [birth year] (69 yo F)Acc No.[id number]:04/19/2025 Patient: Shirley ULRICH :1955 A ge:69 Y S ex:Female Address:[address] [place] [address], [phone] * Refills Start Wryagbye-Mwahllrfz-Fufmzfwp Suspension, 3.5-78172-3.1, Ophthalmic, 1.4 ML, 1 drop into affected eye, Four times a day, 7 days, Refills=1 * true * Date: Generated for Jamaal deshpande/Denise/Graceitting on: 0 06/10/2025 03:27 PM EDT
--- OUTSIDE RECORDS SUMMARY | 2025-05-28 09:00 | XMS_ITS | Encounter Summary ---
Author Organization [facility] Address [address] [place] [address] Care Team Providers Care Long Line Teamster Name Role Phone Harry Valencia MD Primary Care Provider [phone] Reason for Visit * GI Procedure (Routine) - Pending Review Specialty Diagnoses / Procedures Referred By Tin berkowitz Referred To Contact Gastroenterology Diagnoses Iron deficiency anemia due to chronic blood loss AVM (arteriovenous malformation) of colon Other specified postprocedural states Procedures Capsule Endoscopy Jesus Emerson MD [address] [place] [address] Phone: tel: fax: [facility] Gastroenterology [address] [place] [address] [place] [address] Phone: tel: fax: Referral ID Status Reason Start Date Expiration Date V isits Requested Visits Authorized [id number] Pending Review 04/26/2025 04/26/2026 2 2 Encounter Details Date Type Department Care Team (Late st Contact Info) Description 05/28/2025 9:00 AM EDT Procedure Visit [facility] Gastroenterology [address] [place] [address] [place] [address] Jessica Oates CNP [address] [place] [address] AVM (arteriovenous malformation) (Primary Dx); History of colonoscopy with polypectomy; Iron deficiency anemia due to chronic blood loss; AVM (arteriovenous malformation) of colon; Other specified postprocedural states Social History Tobacco Use Types Packs/Day Years Used Date Smoking Tobacco: Never Smokeless Tobacco: Never Alcohol Use Standard Drinks/Week Comments Not Currently 0 (1 standard drink = 0.6 oz pur e alcohol) [place] Safety & Environment Answer Date Rec orded Fear of Current or Ex-Partner Not on file Emotionally Abused Not on file 01/12/2024 Physically Abused Not on file 01/12/2024 Sexually Abused Not on file 01/12/2024 Physically or Sexually Abused Not on file Comments No Sex and Gender Information Value Date Recorded Sex Assigned at Not on file Legal Sex Female 10:55 PM EDT Gender Identity Not on file Sexual Orientation Not on file documented as of this encounter Progress Notes * Jessica Oates, ESTRADA - 05/28/2025 9:00 AM EDT [facility] Gastroenterology Shirley Brian is a 69 y.o. female presenting for capsule endoscopy. Shirley Brian is an 69 y.o. White [...] Patient was seen in the clinic on 04/10/2025, and recommendation was for EGD with push enteroscopy. This was done 04/24/[address] Emerson and showed Normal examined duodenum with a few non-bleeding angioectasias in the jejunum. Recommendation was for VCE CapsoCAM Plus LOT #: [id number] SERIAL #: [id number] EXP DATE: 04/29/2027 TIME CAPSULE WAS GIVEN: 9:20 Verification of correct patient using two patient identifiers: Completed Verification of correct imaging studies and implant: NA Verification of correct equipment including emergency equipment: Completed Site marked with marker???s initials: NA Verification of time-out process: Completed Consent signed: Completed Discussed the procedural process and benefits of CapsoCam VCE. Patient reports drinking bowel preperation and adhering to all necessary diet changes prior to VCE administration. Discussed directions for CapsoRetrieve Kit. Kit provided to the patient in clinic. Patient was told to walk or move for the next hour, may drink clear liquids in 2 hours and may havea light lunch in 4 hours, and 17 grams of Miralax in 8 oz of water. Return to previous diet in 6 hours from capsule ingestion. Patient was instructed to retrieve the capsule 3-30 hours later using the simple retrieval process w/ wand after passing the CapsoCam. They were instructed to mail capsule using the shipping container and label provided in CapsoRetrieve Kit. Following items were explained to patient in detail: Risk of malfunctioning equipment Possibility of capsule endoscopy missing something If capsule endoscopy pill gets stuck, may need to be retrieved with a endoscopy scope or surgery Do not get an MRI until capsule passes If capsule does not pass may need ABD X-ray to check Patient given opportunity to ask questions The patient acknowledged understanding of all previous items. Discussed results should be provided 7 days after the capsule is submitted in the mail. Physician will be notified when study downloaded and is ready to be read. Both verbal and handwritten instructions provided to the patient. Thank you for allowing me to participate in this pleasant patient???s care. Jessica Oates CNP documented in this encounter Plan of Treatment Upcoming Encounters Date Type Department Care Team (Latest Contact Info) Description 06/13/2025 8:00 AM EDT Hospital Encounter [facility] Vascular Lab [address] [place] [address] Rogers Catalan MD [address] [facility] [place] [address] Paroxysmal atrial fibrillation (CMS/HCC) 06/13/2025 8:00 AM EDT - 06/13/2025 12:00 PM EDT Surgery [facility] Heart [facility] [address] [place] [phone] Rogers Catalan MD [address] [facility] [place] [phone] Ablation a-fib paroxysmal [[id number]] 06/13/2025 8:00 AM EDT Appointment [facility] Vascular Lab [address] [facility] [place] [phone] 10/16/2025 1:30 PM EST Follow-Up [facility] Gastroenterology [address] [place] [phone] Beni Gomez MD [address] [facility] [address] [facility] [place] [address] documented as of this encounter Visit Diagnoses Diagnosis Atrial fibrillation (CMS/HCC)- Primary Atrial fibrillation Paroxysmal atrial fibrillation (CMS/HCC) Atrial fibrillation AVM (arteriovenous malformation)- Primary Congenital anomaly of the peripheral vascular system, unspecified site History of colonoscopy with polypectomy Other postprocedural status Iron deficiency anemia due to chronic blood loss Iron deficiency anemia secondary to blood loss (chronic) AVM (arteriovenous malformation) of colon Other specified postprocedural states Paroxysmal atrial fibrillation (CMS/HCC) Atrial fibrillation documented in this encounter Care Teams Long Line Teamster Relationship Specialty Start Date End Date Harry Valencia MD [address] [facility] [place] [address] PCP - General 06/20/23 documented as of this encounter
--- OUTSIDE RECORDS SUMMARY | 2025-06-10 15:27 | XMS_ITS | Patient Health Record ---
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 Role Phone Shaq Valencia Primary Care Provider Shannan Swain Unavailable [phone] Allergies Allergen (clinical drug ingredient) Drug/Non Drug Allergy documented on EMR Reaction Allergy Type Onset Date Status Substance with sulfonamide structure and antibacterial mechanism of action (substance) Sulfa Antibiotics hives Drug Allergy Active Results Component Value Reference Range Notes XR abdomen 1V Reviewed date:07/09/2024 09:06:35 PM Interpretation: Performing Lab: Notes/Report: Source Facility: [place] [address] XRay Report Signed Patient: CONNIE BRIAN MR#: [id number] : 1955 Acct:[id number] Age/Sex: 68 / F ADM Date: 07/04/24 Loc: RAD Attending Dr: Harry Valencia M.D. Ordering Physician: Harry Valencia M.D. Date of Service: 07/04/24 Procedure(s): XR abdomen 1V Accession Number(s): [id number] cc: Harry Valencia M.D. [place] [address] Patient Name: CONNIE BRIAN MRN: [facility]:[id number] date: 1955 Sex: F Assigned Patient Location: RAD Current Patient Location: Accession/Order Number: [id number] Exam Date: 07/04/2024 15:10 Report Date: 07/09/2024 [...] M.D. Signed By: 07/09/24724 DD/ 2 TD/TT: Assessment Consultant: [place] [address] XRay Report Signed Patient: STEPHEN BRIAN MR#: [id number] : 1955 Acct:[id number] Age/Sex: 68 / F ADM Date: 07/04/24 Loc: RAD Attending Dr: Miya Valencia M.D. Ordering Physician: Harry Valencia M.D. Date of Service: 07/04/24 Procedure(s): XR abd omen 1V Accession Number(s): [id number] cc: Harry Valencia M.D. [place] [id number] Patient Name: CONNIE BRIAN MRN: [facility]:[id number] date: 1955 Sex: F Assigned Patient Location: [facility] Current Patient Location: Accession/Order Numb er: [id number] Exam Date: 07/04/2024 15:10 Report Date: 07/09/2024 [...] Dictated By: Prasanna Albright M.D. Signed By: 07/09/24724 DD/ 2 TD/TT: Assessment Consultant: JANELLE T3 Reviewed date:09/21/2024 09:21:49 PM Interpretation: Performing Lab: Notes/Report: [facility] , Free T3 2.28 2.18-3.98 pg/mL Performing Lab: see note ML - [facility] LB LIPID PROFILE Reviewed date:09/21/2024 09:21:49 PM Interpretation: Performing Lab: Notes/Report: [facility] , Triglycerides 111 <=150 mg/dL Cholesterol 118 [...] RISK Performing Lab: see note ML - [facility] LB PROF 14(COMP METB) Reviewed date:09/21/2024 09:21:49 PM Interpretation: Performing Lab: Notes/Report: [facility] , Sodium 143 136-145 mmol/L Potassium 3.9 [...] 0.7 Performing Lab: see note ML - [facility] LB T4 Reviewed date:09/21/2024 09:21:49 PM Interpretation: Performing Lab: Notes/Report: [facility] , T4 Thyroxine 8.70 4.80-13.90 ug/dL Performing Lab: see note ML - [facility] LB TSH Reviewed date:09/21/2024 09:21:49 PM Interpretation: Performing Lab: Notes/Report: [facility] , Thyroid Stimulating Hormone 2.570 0.358-3.740 uIU/mL Performing Lab: see note ML - [facility] LB CBC AUTO DIFF Reviewed date:11/04/2024 08:21:50 PM Interpretation: Performing Lab: Notes/Report: [facility] , White Blood Count 7.0 4.0-11.0 10 [...] Performing Lab: see note ML - [facility] LB Box Test Reviewed date:11/18/2024 03:05:02 PM Interpretation: Performing Lab: Notes/Report: POSITIVE BLOOD CULTURE. AEROBIC BOTTLE. [facility] , BOX Test Sent Out BLOOD CULTURE BOX Test Reference Lab [facility] BOX Test Date Sent 11/14/24 BOX Test Result SEE SCANNED REPORT Performing Lab: see note ML - [facility] LB Box Test Reviewed date:11/18/2024 03:05:02 PM Interpretation: Performing Lab: Notes/Report: POSITIVE BLOOD CULTURE. ANAEROBIC BOTTLE. [facility] , BOX Test Sent Out BLOOD CULTURE BOX Test Reference Lab [facility] BOX Test Date Sent 11/14/24 BOX Test Result SEE SCANNED REPORT Performing Lab: see note ML - [facility] LB Box Test Reviewed date:11/18/2024 03:05:02 PM Interpretation: Performing Lab: Notes/Report: POSITIVE BLOOD CULTURE. ANAEROBIC BOTTLE. [facility] , BOX Test Sent Out BLOOD CULTURE BOX Test Reference Lab [facility] BOX Test Date Sent 11/14/24 BOX Test Result SEE SCANNED REPORT Performing Lab: see note ML - [facility] LB Box Test Reviewed date:11/18/2024 03:05:02 PM Interpretation: Performing Lab: Notes/Report: POSITIVE BLOOD CULTURE. AEROBIC BOTTLE. [facility] , BOX Test Sent Out BLOOD CULTURE BOX Test Reference Lab [facility] BOX Test Date Sent 11/14/24 BOX Test Result SEE SCANNED REPORT Performing Lab: see note ML - [facility] LB BNP Reviewed date:11/15/2024 06:06:54 PM Interpretation: Performing Lab: Notes/Report: Comment from labs this am [facility] , NT Pro B Type Natriuretic Pept 9792.0 <=900.0 pg/mL RESULTS CALLED TO CHRISTINE SHANKAR RN Performing Lab: see note ML - [facility] LB CBC AUTO DIFF Reviewed date:11/15/2024 06:06:54 PM Interpretation: Performing Lab: Notes/Report: [facility] , White Blood Count 13.3 4.0-11.0 10 [...] Performing Lab: see note ML - [facility] LB CRP Reviewed date:11/15/2024 06:06:54 PM Interpretation: Performing Lab: Notes/Report: Comment off am blood if possible [facility] , C Reactive Protein 28.28 <=0.50 mg/dL Performing Lab: see note ML - [facility] LB GLUCOSE CSF Reviewed date:11/15/2024 06:06:54 PM Interpretation: Performing Lab: Notes/Report: [facility] , Glucose CSF 213 40-70 mg/dL Performing Lab: see note ML - [facility] LB INFLUENZA A AND B AG Reviewed date:11/15/2024 06:06:54 PM Interpretation: Performing Lab: Notes/Report: [facility] , Influenza Virus A Antigen Negative Negative [...] of the test. Performing Lab: see note ML - [facility] LB IRON AND TIBC Reviewed date:11/15/2024 06:06:54 PM Interpretation: Performing Lab: Notes/Report: [facility] , Iron 9.0 50.0-170.0 ug/dL Total Iron Binding Capacity 226.0 250.0-450.0 ug/dL Percent Iron Saturation 4.0 Performing Lab: see note ML - [facility] LB LACTATE or LACTIC ACID Reviewed date:11/15/2024 06:06:54 PM Interpretation: Performing Lab: Notes/Report: [facility] , Lactate/Lactic Acid 4.5 0.4-2.0 mmol/L RESULT S CALLED TO MELECIO GRACE RN Performing Lab: see note ML - [facility] MAGNESIUM Reviewed date:11/15/2024 06:06:54 PM Interpretation: Performing Lab: Notes/Report: [facility] , Magnesium 2.0 1.8-2.4 mg/dL Performing Lab: see note ML - [facility] LB PROF 14(COMP METB) Reviewed date:11/15/2024 06:06:54 PM Interpretation: Performing Lab: Notes/Report: [facility] , Sodium 132 136-145 mmol/L Potassium 4.7 [...] 0.4 Performing Lab: see note ML - [facility] LB PROTEIN CSF Reviewed date:11/15/2024 06:06:54 PM Interpretation: Performing Lab: Notes/Report: [facility] , Total Protein CSF 205 15-45 mg/dL Performing Lab: see note ML - [facility] LB RSV Reviewed date:11/15/2024 06:06:54 PM Interpretation: Performing Lab: Notes/Report: [facility] , Respiratory Syncytial Virus Not Detected NOT DETECTE Performing Lab: see note ML - [facility] LB T4 Reviewed date:11/15/2024 06:06:54 PM Interpretation: Performing Lab: Notes/Report: [facility] , T4 Thyroxine 5.20 4.80-13.90 ug/dL Performing Lab: see note ML - [facility] LB TSH Reviewed date:11/15/2024 06:06:54 PM Interpretation: Performing Lab: Notes/Report: [facility] , Thyroid Stimulating Hormone 1.520 0.358-3.740 uIU/mL Performing Lab: see note ML - [facility] LB Erythrocyte Sedimentation Ra te Reviewed date:11/15/2024 06:06:54 PM Interpretation: Performing Lab: Notes/Report: Comment off am blood if possible [facility] , Erythrocyte Sedimentation Rate >130 <=30 mm/hr Performing Lab: see note ML - [facility] LB Manual Differential Reviewed date:11/15/2024 06:06:54 PM Interpretation: Performing Lab: Notes/Report: [facility] , Segmented Neutrophils % Manual 84.0 43.0-75.0 [...] Performing Lab: see note ML - [facility] LB Troponin I High Sensitivity Reviewed date:11/15/2024 06:06:54 PM Interpretation: Performing Lab: Notes/Report: Comment from labs this am [facility] , Troponin I High Sensitivity 11.9 4.0-51.3 pg/mL CUT-OFF POINTS HAVE BEEN ESTABLISHED BASED ON THE FOURTH UNIVERSAL DEFINITION OF MYOCARDIAL INFARCTION. THE UPPER REFERENCE LIMIT (URL) OF TROPONIN, DEFINED THE 99TH PERCENTILE OF cTnI DISTRIBUTION IN A REFERENCE POPULATION, HAS BEEN CONFIRMED THE DECISION THRESHOLD FOR [place] DIAGNOSIS. 99TH PERCENTILE = 51.4 PG/ML NOTE: HIGH-SENSITIVITY TROPONIN ASSAY IS NOT INTENDED TO BE USED IN ISOLATION BUT SHOULD BE INTERPRETED IN CONJUNCTION WITH OTHER DIAGNOSTIC AND CLINICAL INFORMATION. Performing Lab: see note ML - [facility] LB Reticulocyte Pct Auto Reviewed date:11/15/2024 06:06:54 PM Interpretation: Performing Lab: Notes/Report: [facility] , Reticulocyte Pct Auto 2.22 0.60-3.10 % Performing Lab: see note ML - [facility] LB SARS-CoV-2 Ag* Reviewed date:11/15/2024 06:06:54 PM Interpretation: Performing Lab: Notes/Report: [facility] , SARS-CoV-2 Ag NEGATIVE NEGATIVE This test [...] is revoked sooner. Performing Lab: see note - [facility] LB Box Test Reviewed date:11/18/2024 03:05:02 PM Interpretation: Performing Lab: Notes/Report: CSF TUBE #2 FOR CULTURE [facility] , BOX Test Sent Out CSF CULTURE BOX Test Reference Lab [facility] BOX Test Date Sent 11/15/24 BOX Test Result SEE SCANNED REPORT Performing Lab: see note - [facility] CA echo doppler complete Reviewed date:11/15/2024 08:00:26 PM Interpretation: Performing Lab: Notes/Report: Source Facility: [place] [address] Cardiology Report Signed Patient: CONNIE BRIAN MR#: [id number] : 1955 Acct:[id number] Age/Sex: 69 / F ADM Date: 11/14/24 Loc: ICU 274-[address]: Harry Valencia M.D. Ordering Physician: Harry Valencia M.D. Date of Service: 11/15/24 Procedure(s): CA echo doppler complete Accession Number(s): [id number] cc: Harry Valencia M.D. Patient Name: CONNIE BRIAN MR#: [id number] : 1955 Exam Date: 11/15/2024 Ordering Doctor: [...] CROUCH Signed By: 11/15/241834 DD/ 33 TD/TT: Assessment Consultant: [place] [address] Cardiology Report Signed Patient: STEPHEN BRIAN MR#: [id number] : 1955 Acct:[id number] Age/Sex: 69 / F ADM Date: 11/14/24 Loc: ICU 274-[address]: Miya Valencia M.D. Ordering Physician: Harry Valencia M.D. Date of Service: 11/15/24 Procedure(s): CA ech o doppler complete Accession Number(s): [id number] cc: Harry Valencia M.D. Patient Name: CONNIE BRIAN MR#: [id number] : 1955 Exam Date: 11/15/2024 Ordering Doctor: [...] There is n o mitral annular calcification. AORTIC VALVE: Normal trileaflet [...] CROUCH Signed By: 11/15/241834 DD/ 33 TD/TT: Assessment Consultant: CT soft tissue neck w con Reviewed date:11/15/2024 06:06:55 PM Interpretation: Performing Lab: Notes/Report: Source Facility: [place] [address] CT Scan Report Signed Patient: CONNIE BRIAN MR#: [id number] : 1955 Acct:[id number] Age/Sex: 69 / F ADM Date: 11/14/24 Loc: ICU 274-[address]: Harry Valencia M.D. Ordering Physician: Harry Valencia M.D. Date of Service: 11/15/24 Procedure(s): CT soft tissue neck wo con Accession Number(s): [id number] cc: Harry Valencia M.D. [place] [address] Patient Name: CONNIE BRIAN MRN: [id number]:[id number] date: 1955 Sex: F Assigned Patient Location: ICU Current Patient Location: ICU Accession/Order Number: [id number] Exam Date: 11/15/2024 08:35 Report Date: 11/15/2024 [...] M.D. Signed By: 11/15/24937 DD/ 5 TD/TT: Assessment Consultant: [place] [address] CT Scan Report Signed Patient: STEPHEN BRIAN MR#: [id number] : 1955 Acct:[id number] Age/Sex: 69 / F ADM Date: 11/14/24 Loc: ICU 274-[address]: Miya Valencia M.D. Ordering Physician: Harry Valencia M.D. Date of Service: 11/15/24 Procedure(s): CT sof t tissue neck wo con Accession Number(s): [id number] cc: Harry Valencia M.D. [place] [address] Patient Name: CONNIE BRIAN MRN: [id number]:[id number] date: 1955 Sex: F Assigned Patient Location: ICU Current Patient Loca tion: ICU Accession/Order Numb er: [id number] Exam Date: 08:35 Report Date: 11/15/2024 09:36 [...] M.D. Signed By: 11/15/24937 DD/ 5 TD/TT: Assessment Consultant: FL guided lumbar puncture LP Reviewed date:11/15/2024 06:06:55 PM Interpretation: Performing Lab: Notes/Report: Source Facility: [place] [address] [place] [address] Fluoroscopy Report Signed Patient: CONNIE BRIAN MR#: [id number] : 1955 Acct:[id number] Age/Sex: 69 / F ADM Date: 11/14/24 Loc: ICU 274-[address]: Harry Valencia M.D. Ordering Physician: Harry Valencia M.D. Date of Service: 11/15/24 Procedure(s): FL guided lumbar puncture LP Accession Number(s): [id number] cc: Harry Valencia M.D. [address] [address] Patient Name: CONNIE BRIAN MRN: [id number] date: 1955 Sex: F Assigned Patient Location: ICU Current Patient Location: ICU Accession/Order Number: [id number] Exam Date: 11/15/2024 13:10 Report Date: 11/15/2024 [...] Rosario M.D. Signed By: 11/15/24 1404 DD/ 01 TD/TT: Assessment Consultant: [place] [address] Fluoroscopy Report Signed Patient: STEPHEN BRIAN MR#: [id number] : 1955 Acct:[id number] Age/Sex: 69 / F ADM Date: 11/14/24 Loc: ICU 274-[address]: Miya Valencia M.D. Ordering Physician: Harry Valencia M.D. Date of Service: 11/15/24 Procedure(s): FL dirk ded lumbar puncture LP Accession Number(s): [id number] cc: Harry Valencia M.D. The [address] [address] Patient Name: CONNIE BRIAN MRN: [id number] date: 1955 Sex: F Assigned Patient Location: ICU Current Patient Loca tion: ICU Accession/Order Numb er: [id number] Exam Date: 13:10 Report Date: 11/15/2024 14:02 [...] Signed By: 11/15/24 1404 DD/ 1402 TD/TT: Assessment Consultant: LACTATE or LACTIC ACID Reviewed date:11/15/2024 06:06:54 PM Interpretation: Performing Lab: Notes/Report: N [facility] , Lactate/Lactic Acid 3.4 0.4-2.0 mmol/L RESULTS CALLED TO CHRISTINE SHANKAR RN @BY Payton Julien at 0921 Performing Lab: see note ML - [facility] LB Manual Differential Reviewed date:11/15/2024 06:06:54 PM Interpretation: Performing Lab: Notes/Report: [facility] , Segmented Neutrophils % Manual 76.0 43.0-75.0 [...] 2+ Ovalocytes 1+ Performing Lab: see note - [facility] LB BNP Reviewed date:11/17/2024 08:58:56 PM Interpretation: Performing Lab: Notes/Report: [facility] , NT Pro B Type Natriuretic Pept 9918.0 <=900.0 pg/mL RESULTS CALLED TO MELECIO GRACE RN Performing Lab: see note - [facility] LB CBC AUTO DIFF Reviewed date:11/17/2024 08:58:56 PM Interpretation: Performing Lab: Notes/Report: [facility] , White Blood Count 11.6 4.0-11.0 10 [...] 3/uL Performing Lab: see note ML - [facility] DIGOXIN Reviewed date:11/17/2024 08:58:56 PM Interpretation: Performing Lab: Notes/Report: [facility] , Digoxin 0.8 0.9-2.0 ng/mL Performing Lab: see note - [facility] PROF 14(COMP METB) Reviewed date:11/17/2024 08:58:56 PM Interpretation: Performing Lab: Notes/Report: [facility] , Sodium 139 136-145 mmol/L Potassium 3.7 [...] 0.3 Performing Lab: see note ML - [facility] PTT Reviewed date:11/17/2024 08:58:56 PM Interpretation: Performing Lab: Notes/Report: [facility] , Partial Thromboplastin Time 31.6 22.3-36.2 sec Performing Lab: see note ML - [facility] LB Prothrombin Time INR Reviewed date:11/17/2024 08:58:56 PM Interpretation: Performing Lab: Notes/Report: [facility] , Prothrombin Time 12.4 9.0-11.6 sec INR 1.19 DESIRED INR: 2.0-3.0 CONDITIONS NOT LISTED BELOW 2.5-3.5 FOR PROSTHETIC HEART VALVE REPLACEMENT 2.5-3.5 RECURRENT THROMBOSIS Performing Lab: see note - [facility] BNP Reviewed date:11/18/2024 03:05:02 PM Interpretation: Performing Lab: Notes/Report: [facility] , NT Pro B Type Natriuretic Pept 4517.0 <=900.0 pg/mL RESULTS CALLED TO JAYMIE LOPEZ RN Performing Lab: see note [facility] PROF 14(COMP METB) Reviewed date:11/18/2024 03:05:02 PM Interpretation: Performing Lab: Notes/Report: [facility] , Sodium 135 136-145 mmol/L Potassium 4.1 [...] Ratio 0.3 Performing Lab: see note - [facility] DIGOXIN Reviewed date:11/19/2024 08:36:55 PM Interpretation: Performing Lab: Notes/Report: [facility] , Digoxin 0.9 0.9-2.0 ng/mL Performing Lab: see note ML - [facility] LB AMMONIA Reviewed date:12/30/2024 11:28:24 AM Interpretation: Performing Lab: Notes/Report: [facility] , Ammonia 22 11-32 umol/L Performing Lab: see note - [facility] LB CBC AUTO DIFF Reviewed date:12/30/2024 11:28:24 AM Interpretation: Performing Lab: Notes/Report: [facility] , White Blood Count 6.2 4.0-11.0 10 [...] Performing Lab: see note ML - [facility] LB LIVER PROFILE Reviewed date:12/30/2024 11:28:24 AM Interpretation: Performing Lab: Notes/Report: [facility] , Bilirubin Total 1.1 0.2-1.0 mg/dL Bilirubin Direct 0.5 0.0-0.2 mg/dL Aspartate Amino Transferase 17 15-37 U/L Alanine Aminotransferase 11 14-59 U/L Alkaline Phosphatase 105 46-116 U/L Total Protein 6.8 6.4-8.2 g/dL Albumin Level 2.4 3.4-5.0 g/dL Globulin 4.4 Albumin Globulin Ratio 0.5 Performing Lab: see note - [facility] LB MAGNESIUM Reviewed date:12/30/2024 11:28:24 AM Interpretation: Performing Lab: Notes/Report: [facility] , Magnesium 2.2 1.8-2.4 mg/dL Performing Lab: see note [facility] UA RANDOM W or MICROSCOPIC Reviewed date:12/30/2024 11:28:24 AM Interpretation: Performing Lab: Notes/Report: [facility] , Color Urine LT. YELLOW YELLOW Clarity Urine CLEAR CLEAR Specific [place] Urine 1.010 1.005-1.025 pH Urine 7.0 5.0-9.0 [...] Culture Indicated YES Performing Lab: see note - [facility] LB Urine Culture, Routine Reviewed date:01/02/2025 [...] KAL Status Urine Culture, Routine Performed at[facility], Routine Organism: Gram negative trang : O:ECMS Isolated O:GNR Isolated Organism: 1.1 Antibiotic Interpretation KAL Status Urine Culture, Routine [address] [place], [place] [id number] Urine Culture, Routine Organism: Gram negative trang : O:ECMS Isolated O:GNR Isolated Organism: 1.1 Antibiotic Interpretation KAL Status Urine Culture, Routine Automatic Drill Operator: Alvaro Garcias PhD, Phone: [phone] Urine Culture, Routine Organism: Gram negative trang [...] LC - [facility] LB SEE REPORT - Organizational Effectiveness Consultant Id information not found for OBX-specific online producer legend ECG 12 lead Reviewed date:12/30/2024 11:28:24 AM Interpretation: Performing Lab: Notes/Report: Source Facility: [address] [place] [address] Electrocardiograph Report Signed Patient: CONNIE BRIAN MR#: [id number] : 1955 Acct:[id number] Age/Sex: 69 / F ADM Date: 12/28/24 Loc: MS 215-[address]: Harry Valencia M.D. Ordering Physician: Vicente Salomon Date of Service: 12/28/24 Procedure(s): ECG 12 lead Accession Number(s): [id number] cc: 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 Signed By: 12/30/24 1106 DD/ 1126 TD/TT: Assessment Consultant: [place] [address] Electrocardiograph Report Signed Patient: STEPHEN BRIAN MR#: [id number] : 1955 Acct:[id number] Age/Sex: 69 / F ADM Date: 12/28/24 Loc: MS 215-[address]: Miya Valencia M.D. Ordering Physician: Vicente Salomon Date of Service: 12/28/24 Procedure(s): ECG 12 lead Accession Number(s): [id number] cc: 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 Signed By: 12/30/24 1106 DD/ 1126 TD/TT: Assessment Consultant: CT chest wo con Reviewed date:12/30/2024 11:28:24 AM Interpretation: Performing Lab: Notes/Report: Source Facility: [place] [address] CT Scan Report Signed Patient: CONNIE BRIAN MR#: [id number] : 1955 Acct:[id number] Age/Sex: 69 / F ADM Date: 12/28/24 Loc: ER Attending Dr: Ordering Physician: Vicente Salomon Date of Service: 12/28/24 Procedure(s): CT chest wo con Accession Number(s): [id number] cc: Harry Valencia M.D. [place] [address] Patient Name: CONNIE BRIAN MRN: [facility]:[id number] date: 1955 Sex: F Assigned Patient Location: ER Current Patient Location: ER Accession/Order Number: [id number] Exam Date: 12/28/2024 12:17 Report Date: 12/28/2024 [...] Signed By: 12/28/24 1331 DD/ 1328 TD/TT: Assessment Consultant: [place] [address] CT Scan Report Signed Patient: STEPHEN BRIAN MR#: [id number] : 1955 Acct:[id number] Age/Sex: 69 / F ADM Date: 12/28/24 Loc: ER Attending Dr: Ordering Physician: Vicente Salomon Date of Service: 12/28/24 Procedure(s): CT isa st wo con Accession Number(s): [id number] cc: Harry Valencia M.D. The [place] [id number] Patient Name: CONNIE BRIAN MRN: [facility]:[id number] date: 1955 Sex: F Assigned Patient Location: ER Current Patient Loca tion: ER Accession/Order Numb er: [id number] Exam Date: 12/28/2024 12:17 Report Date: 12/28/2024 [...] By: Prasanna Albright M.D. Signed By: 12/28/24 2647 DD/ 1325 TD/TT: Assessment Consultant: CT abdomen pelvis wo con Reviewed date:12/30/2024 11:28:24 AM Interpretation: Performing Lab: Notes/Report: Source Facility: [place] [address] CT Scan Report Signed Patient: CONNIE BRIAN MR#: [id number] : 1955 Acct:[id number] Age/Sex: 69 / F ADM Date: 12/28/24 Loc: ER Attending Dr: Ordering Physician: Vicente Salomon Date of Service: 12/28/24 Procedure(s): CT abdomen pelvis wo con Accession Number(s): [id number] cc: Harry Valencia M.D. [place] [address] Patient Name: CONNIE BRIAN MRN: [id number] date: 1955 Sex: F Assigned Patient Location: ER Current Patient Location: ER Accession/Order Number: [id number] Exam Date: 12/28/2024 12:17 Report Date: 12/28/2024 [...] Signed By: 12/28/24 1331 DD/ 1328 TD/TT: Assessment Consultant: [place] [address] CT Scan Report Signed Patient: STEPHEN BRIAN MR#: [id number] : 1955 Acct:[id number] Age/Sex: 69 / F ADM Date: 12/28/24 Loc: ER Attending Dr: Ordering Physician: Vicente Salomon Date of Service: 12/28/24 Procedure(s): CT abd omen pelvis wo con Accession Number(s): [id number] cc: Harry Valencia M.D. [address] [address] Patient Name: CONNIE BRIAN MRN: [id number]:[id number] date: 1955 Sex: F Assigned Patient Location: ER Current Patient Loca tion: ER Accession/Order Numb er: [id number] Exam Date: 12/28/2024 12:17 Report Date: 12/28/2024 [...] Signed By: 12/28/24 1331 DD/ 1328 TD/TT: Assessment Consultant: XR chest 2V Reviewed date:12/30/2024 11:28:24 AM Interpretation: Performing Lab: Notes/Report: Source Facility: [place] [address] XRay Report Signed Patient: CONNIE BRIAN MR#: [id number] : 1955 Acct:[id number] Age/Sex: 69 / F ADM Date: 12/28/24 Loc: ER Attending Dr: Ordering Physician: Vicente Salomon Date of Service: 12/28/24 Procedure(s): XR chest 2V Accession Number(s): [id number] cc: Harry Valencia M.D.; Vicente Salomon [place] [id number] Patient Name: CONNIE BRIAN MRN: [id number] date: 1955 Sex: F Assigned Patient Location: ED.MAIN Current Patient Location: ER Accession/Order Number: [id number] Exam Date: 12/28/2024 11:41 Report Date: 12/28/2024 [...] Signed By: 12/28/24 1206 DD/ 1203 TD/TT: Assessment Consultant: [place] [address] XRay Report Signed Patient: STEPHEN BRIAN MR#: [id number] : 1955 Acct:[id number] Age/Sex: 69 / F ADM Date: 12/28/24 Loc: ER Attending Dr: Ordering Physician: Vicente Salomon Date of Service: 12/28/24 Procedure(s): XR chest 2V Accession Number(s): [id number] cc: Harry Valencia M.D. ; Vicente Salomon [place] [id number] Patient Name: CONNIE BRIAN MRN: [id number]:[id number] date: 1955 Sex: F Assigned Patient Location: ED.MAIN Current Patient Loca tion: ER Accession/Order Numb er: [id number] Exam Date: 12/28/2024 11:41 Report Date: 12/28/2024 [...] Signed By: 12/28/24 1206 DD/ 1203 TD/TT: Assessment Consultant: ECG 12 lead Reviewed date:12/30/2024 11:28:24 AM Interpretation: Performing Lab: Notes/Report: Source Facility: [place] [address] Electrocardiograph Report Signed Patient: CONNIE BRIAN MR#: [id number] : 1955 Acct:[id number] Age/Sex: 69 / F ADM Date: 12/28/24 Loc: [place] 215-[address]: Harry Valencia M.D. Ordering Physician: Harry Valencia M.D. Date of Service: 12/28/24 Procedure(s): ECG 12 lead Accession Number(s): [id number] cc: [facility] Test Date: 2024-12-28 Pat Name: CONNIE BRIAN Department: Room: [facility] Gender: Female [employer]: : 1955 Requested By: HARRY VALENCIA Order Number: [id number] Reading MD: HARRY VALENCIA Measurements Intervals [place] Rate: 56 P: 15 UT: 208 QRS: 3 QRSD: 90 T: 207 [...] M.D. Signed By: 12/30/241106 DD/ 23 TD/TT: Assessment Consultant: [place] [address] Electrocardiograph Report Signed Patient: STEPHEN BRIAN MR#: [id number] : 1955 Acct:[id number] Age/Sex: 69 / F ADM Date: 12/28/24 Loc: MS 215- Attending Dr: Miya Valencia M.D. Ordering Physician: Harry Valencia M.D. 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 Signed By: 12/30/241106 DD/ 23 TD/TT: Assessment Consultant: MIRIAM SAHU DIFF Reviewed date:12/30/2024 11:28:24 AM Interpretation: Performing Lab: Notes/Report: [facility] , White Blood Count 6.3 4.0-11.0 10 [...] Performing Lab: see note ML - [facility] LB PROF CHEM 8 (BAS METB) Reviewed date:12/30/2024 11:28:24 AM Interpretation: Performing Lab: Notes/Report: [facility] , Sodium 142 136-145 mmol/L Potassium 4.9 [...] Performing Lab: see note ML - [facility] LB MAGNESIUM Reviewed date:12/30/2024 11:28:24 AM Interpretation: Performing Lab: Notes/Report: [facility] , Magnesium 2.2 1.8-2.4 mg/dL Performing Lab: see note ML - [facility] LB BNP Reviewed date:12/30/2024 11:28:24 AM Interpretation: Performing Lab: Notes/Report: [facility] , NT Pro B Type Natriuretic Pept 772.0 <=900.0 pg/mL Performing Lab: see note ML - [facility] LB CBC AUTO DIFF Reviewed date:12/30/2024 11:28:24 AM Interpretation: Performing Lab: Notes/Report: [facility] , White Blood Count 5.9 4.0-11.0 10 3/uL Red Blood Count 2.67 4.20-5.40 10 6/uL Hemoglobin 6.6 12.0-16.0 g/dL RESULTS CALLED TO Melecio Grace RN @BY [place] at 0610 Hematocrit 22.0 36.0-48.0 % RESULTS CALLED TO Melecio Grace RN @BY [place] at 0610 Mean Corpuscular Volume 82.4 81.0-99.0 [...] 10 3/uL Performing Lab: see note - [facility] LB PROF 14(COMP METB) Reviewed date:12/30/2024 11:28:24 AM Interpretation: Performing Lab: Notes/Report: [facility] , Sodium 140 136-145 mmol/L Potassium 4.7 [...] Globulin Ratio 0.5 Performing Lab: see note - [facility] LB BNP Reviewed date:12/30/2024 11:28:24 AM Interpretation: Performing Lab: Notes/Report: [facility] , NT Pro B Type Natriuretic Pept 1124.0 <=900.0 pg/mL Performing Lab: see note - [facility] LB Occult Blood* Reviewed date:12/30/2024 11:28:24 AM Interpretation: Performing Lab: Notes/Report: [facility] , Occult Blood Positive Performing Lab: see note ML - [facility] LB BNP Reviewed date:12/31/2024 07:17:30 PM Interpretation: Performing Lab: Notes/Report: [facility] , NT Pro B Type Natriuretic Pept 936.0 <=900.0 pg/mL Performing Lab: see note ML - [facility] LB PROF 14(COMP METB) Reviewed date:12/31/2024 07:17:30 PM Interpretation: Performing Lab: Notes/Report: [facility] , Sodium 139 136-145 mmol/L Potassium 5.3 [...] Performing Lab: see note ML - [facility] LB US right upper quadrant Reviewed date:02/03/2025 03:26:35 PM Interpretation: Performing Lab: Notes/Report: Source Facility: [facility]-[address] [place] [address] [place] [address] Ultrasound Report Signed Patient: CONNIE BRIAN MR#: [id number] : 1955 Acct:[id number] Age/Sex: 69 / F ADM Date: 02/01/25 Loc: US Attending Dr: DAMIAN MCCARTHY Ordering Physician: DAMIAN MCCARTHY Date of Service: 02/01/25 Procedure(s): US right upper quadrant Accession Number(s): [id number] cc: Harry Valencia M.D.; DAMIAN MCCARTHY [address] [address] Patient Name: CONNIE BRIAN MRN: [id number]:[id number] date: 1955 Sex: F Assigned Patient Location: US Current Patient Location: US Accession/Order Number: [id number] Exam Date: 02/01/2025 09:29 Report Date: 02/01/2025 [...] Lola Contreras M.D.02/01/2025 9:38 AM Dictation Location: [place] [address] Electronically authenticated by: [id number] Y Date: 02/01/2025 09:38 Dictated By: Lola Contreras M.D. Signed By: 02/01/2541 DD/ 7 TD/TT: Assessment Consultant: [place] [address] Ultrasound Report Signed Patient: STEPHEN BRIAN MR#: [id number] : 1955 Acct:[id number] Age/Sex: 69 / F ADM Date: 02/01/25 Loc: US Attending Dr: DAMIAN MCCARTHY Ordering Physician: DAMIAN MCCARTHY Date of Service: 02/01/25 Procedure(s): US rig ht upper quadrant Accession Number(s): [id number] cc: Harry Valencia M.D. ; DAMIAN MCCARTHY [address] [address] Patient Name: CONNIE BRIAN MRN: [id number]:[id number] date: 1955 Sex: F Assigned Patient Location: US Current Patient Loca tion: US Accession/Order Numb er: [id number] Exam Date: 02/01/2025 09:29 Report Date: 02/01/2025 [...] Lola Contreras M.D.02/01/2025 9:38 AM Dictation Location: [place] [address] Electronically authenticated by: [id number] Y Date: 02/01/2025 09:38 Dictated By: Lola Contreras M.D. Signed By: 02/01/2541 DD/ TD/TT: Assessment Consultant: LACTATE or LACTIC ACID Reviewed date:03/05/2025 04:11:43 PM Interpretation: Performing Lab: Notes/Report: [facility] , Lactate/Lactic Acid 4.5 0.4-2.0 mmol/L RESULT S CALLED TO VERONIKA SALTER RN Performing Lab: see note ML - [facility] LB LIPASE Reviewed date:03/05/2025 04:11:43 PM Interpretation: Performing Lab: Notes/Report: [facility] , Lipase 23.0 16.0-77.0 U/L Performing Lab: see note ML - [facility] LB MAGNESIUM Reviewed date:03/05/2025 04:11:43 PM Interpretation: Performing Lab: Notes/Report: [facility] , Magnesium 1.8 1.8-2.4 mg/dL Performing Lab: see note - [facility] LB PROF 14(COMP METB) Reviewed date:03/05/2025 04:11:43 PM Interpretation: Performing Lab: Notes/Report: [facility] , Sodium 144 136-145 mmol/L Potassium 4.2 [...] 0.7 Performing Lab: see note ML - [facility] LB PROF CHEM 8 (BAS METB) Reviewed date:03/05/2025 04:11:43 PM Interpretation: Performing Lab: Notes/Report: [facility] , Sodium 142 136-145 mmol/L Potassium 4.2 [...] mg/dL Performing Lab: see note ML - [facility] LB PTT Reviewed date:03/05/2025 01:33:59 PM Interpretation: Performing Lab: Notes/Report: [facility] , Partial Thromboplastin Time 31.5 22.3-36.2 sec Performing Lab: see note ML - [facility] UA RANDOM W or MICROSCOPIC Reviewed date:03/06/2025 09:53:01 AM Interpretation: Performing Lab: Notes/Report: [facility] , Color Urine YELLOW YELLOW Clarity Urine CLEAR CLEAR Specific [place] Urine 1.025 1.005-1.025 pH Urine 6.0 5.0-9.0 [...] Indicated ALREADY ORDERED Performing Lab: see note ML - [facility] LB Prothrombin Time INR Reviewed date:03/05/2025 01:33:59 PM Interpretation: Performing Lab: Notes/Report: [facility] , Prothrombin Time 13.1 9.0-11.6 sec INR 1.26 DESIRED INR: 2.0-3.0 CONDITIONS NOT LISTED BELOW 2.5-3.5 FOR PROSTHETIC HEART VALVE REPLACEMENT 2.5-3.5 RECURRENT THROMBOSIS Performing Lab: see note ML - [facility] LB Type and Screen Reviewed date:03/07/2025 09:11:26 PM Interpretation: Performing Lab: Notes/Report: [facility] , Blood Type O Positive Antibody Screen POSITIVE Occult Blood* Reviewed date:03/05/2025 05:54:06 PM Interpretation: Performing Lab: Notes/Report: [facility] , Occult Blood Positive Performing Lab: see note ML - [facility] LB ECG 12 lead Reviewed date:03/06/2025 09:53:01 AM Interpretation: Performing Lab: Notes/Report: Source Facility: [facility]-[address] [place] [address] [place] [address] Electrocardiograph Report Signed Patient: CONNIE BRIAN MR#: [id number] : 1955 Acct:[id number] Age/Sex: 69 / F ADM Date: 03/05/25 Loc: MS 222-[address]: Harry Valencia M.D. Ordering Physician: Curly Suarez M.D. Date of Service: 03/05/25 Procedure(s): ECG 12 lead Accession Number(s): [id number] cc: [facility] Test Date: 2025-03-05 Pat Name: CONNIE BRIAN Department: Room: - Gender: Female [employer]: : 1955 Requested By: HARRY VALENCIA Order Number: [id number] Reading MD: RUFINA CROUCH M.D. Measurements Intervals [place] Rate: 64 P: 55 UT: 198 QRS: 75 QRSD: 76 T: 90 QT: 384 QTc: 393 Interpretive Statements 1100 Sinus rhythm 4068 Nonspecific Twave abnormality 9130 borderline ECG Compared to ECG 12/28/2024 19:24:10 Ventricular premature complex(es) no longer present Electronically Signed On 03-05-2025 19:33:52 EDT by RUFINA CROUCH M.D. Dictated By: RUFINA CROUCH Signed By: 03/05/251933 DD/ 1453 TD/TT: Assessment Consultant: [place] [address] Electrocardiograph Report Signed Patient: STEPHEN BRIAN MR#: [id number] : 1955 Acct:[id number] Age/Sex: 69 / F ADM Date: 04/15/25 Loc: MS 222-[address]: Miya Valencia M.D. Ordering Physician: Curly Suarez M.D. 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 Measurements Intervals [place] Rate: 64 P: 55 UT: 198 QRS: 75 QRSD: 76 T: 90 QT: 384 QTc: 393 Interpretive Statements 1100 Sinus rhythm 4068 Nonspecific Twa ve abnormality 9130 borderline ECG Compared to ECG 12/28/2024 19:24:10 Ventricular prematur e complex(es) no longer present Electronically Erinn d On 03-05-2025 19:33:52 EDT by RUFINA CROUCH M.D. Dictated By: RUFINA CROUCH Signed By: 03/05/251933 DD/ 1453 TD/TT: Assessment Consultant: LACTATE or LACTIC ACID Reviewed date:03/06/2025 09:53:01 AM Interpretation: Performing Lab: Notes/Report: Y [facility] , Lactate/Lactic Acid 4.5 0.4-2.0 mmol/L RESULT S CALLED TO RAINA BLACKMON RN at 1854 Performing Lab: see note ML - [facility] LB CBC AUTO DIFF Reviewed date:03/07/2025 09:11:26 PM Interpretation: Performing Lab: Notes/Report: [facility] , White Blood Count 4.4 4.0-11.0 10 [...] 3/uL Performing Lab: see note ML - [facility] LB CBC AUTO DIFF Reviewed date:03/11/2025 08:05:20 PM Interpretation: Performing Lab: Notes/Report: [facility] , White Blood Count 4.6 4.0-11.0 10 [...] Performing Lab: see note ML - [facility] LB US abdomen limited Reviewed date:03/18/2025 07:29:56 PM Interpretation: Performing Lab: Notes/Report: Source Facility: [place] [address] Ultrasound Report Signed Patient: CONNIE BRIAN MR#: [id number] : 1955 Acct:[id number] Age/Sex: 69 / F ADM Date: 03/16/25 Loc: US Attending Dr: Harry Valencia M.D. Ordering Physician: Harry Valencia M.D. Date of Service: 03/16/25 Procedure(s): US abdomen limited Accession Number(s): [id number] cc: Harry Valencia M.D. [place] [address] Patient Name: CONNIE BRIAN MRN: [facility]:[id number] date: 1955 Sex: F Assigned Patient Location: Current Patient Location: Accession/Order Number: [id number] Exam Date: 03/18/2025 12:36 Report Date: 03/18/2025 [...] Jr., D.O. 03/18/2025 12:37 PM Dictation Location: [facility] Electronically authenticated by: [id number] Y Date: 03/18/2025 12:37 Dictated By: Duke Cooper M.D. Signed By: 03/18/25 1239 DD/ 1237 TD/TT: Assessment Consultant: [place] [address] Ultrasound Report Signed Patient: STEPHEN BRIAN MR#: [id number] : 1955 Acct:[id number] Age/Sex: 69 / F ADM Date: 03/16/25 Loc: US Attending Dr: Miya Valencia M.D. Ordering Physician: Harry Valencia M.D. Date of Service: 03/16/25 Procedure(s): US abd omen limited Accession Number(s): [id number] cc: Harry Valencia M.D. [place] [address] Patient Name: CONNIE BRIAN MRN: [facility]:[id number] date: 1955 Sex: F Assigned Patient Location: US Current Patient Location: Accession/Order Numb er: [id number] Exam Date: 03/18/2025 12:36 Report Date: 03/18/2025 [...] Jr., D.O. 03/18/2025 12:37 PM Dictation Location: [facility] Electronically authenticated by: [id number] Y Date: 03/18/2025 12:37 Dictated By: Duke Cooper M.D. Signed By: 03/18/25 1239 DD/ 1237 TD/TT: Assessment Consultant: US abdomen complete Reviewed date:03/18/2025 07:29:56 PM Interpretation: Performing Lab: Notes/Report: Source Facility: [place] [address] Ultrasound Report Signed Patient: CONNIE BRIAN MR#: [id number] : 1955 Acct:[id number] Age/Sex: 69 / F ADM Date: 03/16/25 Loc: US Attending Dr: Harry Valencia M.D. Ordering Physician: Harry Valencia M.D. Date of Service: 03/16/25 Procedure(s): US abdomen complete Accession Number(s): [id number] cc: Harry Valencia M.D. [place] [address] Patient Name: CONNIE BRIAN MRN: [id number]:[id number] date: 1955 Sex: F Assigned Patient Location: Current Patient Location: Accession/Order Number: [id number] Exam Date: 03/18/2025 12:33 Report Date: 03/18/2025 [...] SPLENOMEGALY.. Impression dictated by: Duke Cooper Jr., D.OBrayan 03/18/2025 12:35 PM Dictation Location: [place] [address] Electronically authenticated by: [id number] Y Date: 03/18/2025 12:35 Dictated By: Duke Cooper M.D. Signed By: 03/18/25 1238 DD/ 34 TD/TT: Assessment Consultant: [place] [address] Ultrasound Report Signed Patient: STEPHEN BRIAN MR#: [id number] : 1955 Acct:[id number] Age/Sex: 69 / F ADM Date: 03/16/25 Loc: US Attending Dr: Miya Valencia M.D. Ordering Physician: Harry Valencia M.D. Date of Service: 03/16/25 Procedure(s): US abd omen complete Accession Number(s): [id number] cc: Harry Valencia M.D. [place] [address] Patient Name: CONNIE BRIAN MRN: [facility]:[id number] date: 1955 Sex: F Assigned Patient Location: US Current Patient Location: Accession/Order Numb er: [id number] Exam Date: 03/18/2025 12:33 Report Date: 03/18/2025 [...] SPLENOMEGALY.. Impression dictated by: Duke Cooper Jr., DBrayanOBrayan 03/18/2025 12:35 PM Dictation Location: User [employer] Electronically authenticated by: [id number] Y Date: 03/18/2025 12:35 Dictated By: Duke Cooper M.D. Signed By: 03/18/25 1238 DD/ 1235 TD/TT: Assessment Consultant: CBC AUTO DIFF Reviewed date:03/25/2025 03:00:45 PM Interpretation: Performing Lab: Notes/Report: [facility] , White Blood Count 4.2 4.0-11.0 10 [...] Performing Lab: see note ML - [facility] LB CBC AUTO DIFF Reviewed date:04/10/2025 12:57:01 PM Interpretation: Performing Lab: Notes/Report: [facility] , White Blood Count 4.8 4.0-11.0 10 [...] Performing Lab: see note ML - [facility] LB CBC AUTO DIFF Reviewed date:04/22/2025 09:31:14 PM Interpretation: Performing Lab: Notes/Report: [facility] , White Blood Count 5.9 4.0-11.0 10 3/uL Red Blood Count 3.18 4.20-5.40 10 6/uL Hemoglobin 7.5 12.0-16.0 g/dL Hematocrit 26.3 36.0-48.0 % Mean Corpuscular Volume 82.7 81.0-99.0 fL Mean Corpuscular Hemoglobin 23.6 26.7-34.0 pg Mean Corpuscular HGB Conc 28.5 29.9-35.2 g/dL Red Cell Distribution Width 19.6 11.0-15.0 % Platelet Count 188 150-450 10 3/uL Mean Platelet Volume 10.1 9.5-13.5 fL Performing Lab: see note - [facility] LB Manual Differential Reviewed date:04/22/2025 09:31:14 PM Interpretation: Performing Lab: Notes/Report: [facility] , Segmented Neutrophils % Manual 67.0 43.0-75.0 Band Neutrophils % 0.0 0-5 % Lymphocytes Percent Manual 20.0 20.5-60.0 % Monocytes Percent Manual 8.0 1.7-12.0 % Eosinophils Percent Manual 5.0 0.9-7.0 % Basophils Percent Manual 0.0 0.2-2.0 % Segmented Neut Absolute Manual 3.95 1.4-6.5 10 3/uL Band Neutrophils Absolute 0.0 0.0-0.3 10 3/uL Lymphocytes Absolute Manual 1.18 1.20-3.80 10 3/uL Monocytes Absolute Manual 0.47 0.30-0.80 10 3/uL Eosinophils Absolute Manual 0.29 0.00-0.70 10 3/uL Basophils Abs Manual 0.00 0.00-0.10 1 0 3/uL Hypochromasia 1+ Anisocytosis 2+ Performing Lab: see note ML - [facility] LB CBC AUTO DIFF Reviewed date:04/30/2025 04:34:17 PM Interpretation: Performing Lab: Notes/Report: [facility] , White Blood Count 6.5 4.0-11.0 10 3/uL Red Blood Count 3.14 4.20-5.40 10 6/uL Hemoglobin 7.3 12.0-16.0 g/dL Hematocrit 25.9 36.0-48.0 % Mean Corpuscular Volume 82.5 81.0-99.0 fL Mean Corpuscular Hemoglobin 23.2 26.7-34.0 pg Mean Corpuscular HGB Conc 28.2 29.9-35.2 g/dL Red Cell Distribution Width 19.0 11.0-15.0 % Platelet Count 212 150-450 10 3/uL Mean Platelet Volume 10.0 9.5-13.5 fL Neutrophils Percent Auto 67.0 43.0-75.0 % Lymphocytes Percent Auto 21.8 20.5-60.0 % Monocytes Percent Auto 6.6 1.7-12.0 % Eosinophils Percent Auto 3.7 0.9-7.0 % Basophils Percent Auto 0.6 0.2-2.0 % Immature Granulocytes Pct Auto 0.3 0.0-0.5 % Neutrophils Absolute Auto 4.3 1.4-6.5 10 3/uL Lymphocytes Absolute Auto 1.4 1.2-3.8 10 3/uL Monocytes Absolute Auto 0.4 0.3-0.8 10 3/uL Eosinophils Absolute Auto 0.2 0.0-0.7 10 3/uL Basophils Absolute Auto 0.0 0.0-0.1 10 3/uL Immature Granulocytes Abs Auto 0.02 0.00-0.03 10 3/uL Performing Lab: see note ML - [facility] LB CBC AUTO DIFF Reviewed date:09/29/2024 04:03:46 PM Interpretation: Performing Lab: Notes/Report: [facility] , White Blood Count 5.0 4.0-11.0 10 [...] 10 3/uL Performing Lab: see note - [facility] LB GLYCOHEMOGLOBIN A1C Reviewed date:09/21/2024 09:21:49 PM Interpretation: Performing Lab: Notes/Report: [facility] , Glycohemoglobin A1C 11.7 4.5-6.2 % ADA RECOMMENDED LIMIT 4.0 - 6.0 ADA THERAPEUTIC TARGET < 7.0 ACTION SUGGESTED > 7.0 Estimated Average Glucose 289 Performing Lab: see note - [facility] LB CBC AUTO DIFF Reviewed date:04/17/2025 07:51:39 PM Interpretation: Performing Lab: Notes/Report: [facility] , White Blood Count 6.7 4.0-11.0 10 3/uL Red Blood Count 3.42 4.20-5.40 10 6/uL 2+ ANISOCYTOSIS 1+ HYPOCHROMIA Hemoglobin 8.1 12.0-16.0 g/dL Hematocrit 28.3 36.0-48.0 % Mean Corpuscular Volume 82.7 81.0-99.0 fL Mean Corpuscular Hemoglobin 23.7 26.7-34.0 pg Mean Corpuscular HGB Conc 28.6 29.9-35.2 g/dL Red Cell Distribution Width 19.7 11.0-15.0 % Platelet Count 179 150-450 10 3/uL Mean Platelet Volume 10.2 9.5-13.5 fL Neutrophils Percent Auto 72.5 43.0-75.0 % Lymphocytes Percent Auto 12.8 20.5-60.0 % Monocytes Percent Auto 9.7 1.7-12.0 % Eosinophils Percent Auto 4.5 0.9-7.0 % Basophils Percent Auto 0.4 0.2-2.0 % Immature Granulocytes Pct Auto 0.1 0.0-0.5 % Neutrophils Absolute Auto 4.9 1.4-6.5 10 3/uL Lymphocytes Absolute Auto 0.9 1.2-3.8 10 3/uL Monocytes Absolute Auto 0.7 0.3-0.8 10 3/uL Eosinophils Absolute Auto 0.3 0.0-0.7 10 3/uL Basophils Absolute Auto 0.0 0.0-0.1 10 3/uL Immature Granulocytes Abs Auto 0.01 0.00-0.03 10 3/uL Performing Lab: see note ML - [facility] LB PROF 14(COMP METB) Reviewed date:03/11/2025 08:05:20 PM Interpretation: Performing Lab: Notes/Report: [facility] , Sodium 140 136-145 mmol/L Potassium 4.5 [...] 0.7 Performing Lab: see note ML - [facility] LB PROF 14(COMP METB) Reviewed date:03/07/2025 09:11:26 PM Interpretation: Performing Lab: Notes/Report: [facility] , Sodium 137 136-145 mmol/L Potassium 5.3 [...] 0.8 Performing Lab: see note ML - [facility] AMMONIA Reviewed date:03/07/2025 09:11:26 PM Interpretation: Performing Lab: Notes/Report: [facility] , Ammonia 68 11-32 umol/L RESULTS CALLED TO MARIA C HARGROVE RN @BY Zo Juarez at 0636 Performing Lab: see note - [facility] LB LACTATE or LACTIC ACID Reviewed date:03/06/2025 08:03:40 PM Interpretation: Performing Lab: Notes/Report: [facility] , Lactate/Lactic Acid 3.2 0.4-2.0 mmol/L RESULT S CALLED TO EMERALD DOMINGUEZ RN Performing Lab: see note ML - [facility] CBC no Diff (Hemogram) Reviewed date:03/06/2025 01:58:57 PM Interpretation: Performing Lab: Notes/Report: [facility] , White Blood Count 4.3 4.0-11.0 10 [...] 9.5-13.5 fL Performing Lab: see note - [facility] LB PROF 14(COMP METB) Reviewed date:03/06/2025 09:53:01 AM Interpretation: Performing Lab: Notes/Report: [facility] , Sodium 137 136-145 mmol/L Potassium 5.6 [...] 0.7 Performing Lab: see note ML - [facility] LB MAGNESIUM Reviewed date:03/06/2025 09:53:01 AM Interpretation: Performing Lab: Notes/Report: [facility] , Magnesium 1.9 1.8-2.4 mg/dL Performing Lab: see note ML - [facility] LB LACTATE or LACTIC ACID Reviewed date:03/06/2025 01:58:57 PM Interpretation: Performing Lab: Notes/Report: [facility] , Lactate/Lactic Acid 3.8 0.4-2.0 mmol/L RESULT S CALLED TO emerald dominguez rn Performing Lab: see note ML - [facility] LB AMMONIA Reviewed date:03/06/2025 09:53:01 AM Interpretation: Performing Lab: Notes/Report: [facility] , Ammonia 66 11-32 umol/L RESULTS CALLED TO ANNA WEBBER RN @BY Zo Juarez at 0608 Performing Lab: see note - [facility] LB LACTATE or LACTIC ACID Reviewed date:03/06/2025 09:53:01 AM Interpretation: Performing Lab: Notes/Report: [facility] , Lactate/Lactic Acid 3.9 0.4-2.0 mmol/L RESULT S CALLED TO MARIA C HARGROVE RN at 2136 Performing Lab: see note ML - [facility] LB Urine Culture - [facility] Reviewed date:03/09/2025 01:15:48 PM Interpretation: Performing Lab: Notes/Report: [facility] , Urine Culture - [facility] See Below For Report Urine Culture - [facility] Testing performed at [facility] O:ESCCOL Isolated Urine Culture - [facility] [place] Count Organism: 1.1 Antibiotic Interpretation KAL Status Urine Culture - [facility] [address], [place] [address] Urine Culture - [facility] Testing performed at [facility] O:ESCCOL Isolated Urine Culture - [facility] [place] Count Organism: 1.1 Antibiotic Interpretation KAL Status Urine Culture - [facility] See Below For Report Urine Culture - [facility] Testing performed at [facility] O:ESCCOL Isolated Urine Culture - [facility] [place] Count Organism: 1.1 Antibiotic Interpretation KAL Status Urine Culture - [facility] See Below For Report Urine Culture - [facility] Testing performed at [facility] O:ESCCOL Isolated Urine Culture - [facility] [place] Count Organism: 1.1 Antibiotic Interpretation KAL Status Urine Culture - [facility] >100,000 Urine Culture - [facility] Testing performed at [facility] O:ESCCOL Isolated Urine Culture - [facility] [place] Count Organism: 1.1 Antibiotic Interpretation KAL Status Urine Culture - [facility] See Below For Report Urine Culture - [facility] Testing performed at [facility] O:ESCCOL Isolated Urine Culture - [facility] [place] Count Organism: 1.1 Antibiotic Interpretation KAL Status Urine Culture - [facility] Amikacin S F Urine Culture - [facility] Testing performed at [facility] O:ESCCOL Isolated Urine Culture - [facility] [place] Count Organism: 1.1 Antibiotic Interpretation KAL Status Urine Culture - [facility] Amoxicillin/Clavula dustin S F Urine Culture - [facility] Testing performed at [facility] O:ESCCOL Isolated Urine Culture - [facility] [place] Count Organism: 1.1 Antibiotic Interpretation KAL Status Urine Culture - [facility] Ampicillin R F Urine Culture - [facility] Testing performed at [facility] O:ESCCOL Isolated Urine Culture - [facility] [place] Count Organism: 1.1 Antibiotic Interpretation KAL Status Urine Culture [facility] Aztreonam S F Urine Culture - [facility] Testing performed at [facility] O:ESCCOL Isolated Urine Culture - [facility] [place] Count Organism: 1.1 Antibiotic Interpretation KAL Status Urine Culture - [facility] Ceftazidime S F Urine Culture - [facility] Testing performed at [facility] O:ESCCOL Isolated Urine Culture - [facility] [place] Count Organism: 1.1 Antibiotic Interpretation KAL Status Urine Culture - [facility] Ceftazidime/Avibactam S F Urine Culture - [facility] Testing performed at [facility] O:ESCCOL Isolated Urine Culture - [facility] [place] Count Organism: 1.1 Antibiotic Interpretation KAL Status Urine Culture [facility] Ceftolozane/Tazobac tripp S F Urine Culture - [facility] Testing performed at [facility] O:ESCCOL Isolated Urine Culture - [facility] [place] Count Organism: 1.1 Antibiotic Interpretation KAL Status Urine Culture - [facility] Ciprofloxacin R F Urine Culture - [facility] Testing performed at [facility] O:ESCCOL Isolated Urine Culture - [facility] [place] Count Organism: 1.1 Antibiotic Interpretation KAL Status Urine Culture - [facility] Ertapenem S F Urine Culture - [facility] Testing performed at [facility] O:ESCCOL Isolated Urine Culture - [facility] [place] Count Organism: 1.1 Antibiotic Interpretation KAL Status Urine Culture [facility] Gentamicin S F Urine Culture - [facility] Testing performed at [facility] O:ESCCOL Isolated Urine Culture - [facility] [place] Count Organism: 1.1 Antibiotic Interpretation KAL Status Urine Culture - [facility] Levofloxacin R F Urine Culture - [facility] Testing performed at [facility] O:ESCCOL Isolated Urine Culture - [facility] [place] Count Organism: 1.1 Antibiotic Interpretation KAL Status Urine Culture [facility] Meropenem S F Urine Culture - [facility] Testing performed at [facility] O:ESCCOL Isolated Urine Culture - [facility] [place] Count Organism: 1.1 Antibiotic Interpretation KAL Status Urine Culture - [facility] Meropenem/Vaborbactam S F Urine Culture - [facility] Testing performed at [facility] O:ESCCOL Isolated Urine Culture - [facility] [place] Count Organism: 1.1 Antibiotic Interpretation KAL Status Urine Culture [facility] Nitrofurantoin S F Urine Culture - [facility] Testing performed at [facility] O:ESCCOL Isolated Urine Culture - [facility] [place] Count Organism: 1.1 Antibiotic Interpretation KAL Status Urine Culture [facility] Tetracycline S F Urine Culture - [facility] Testing performed at [facility] O:ESCCOL Isolated Urine Culture - [facility] [place] Count Organism: 1.1 Antibiotic Interpretation KAL Status Urine Culture [facility] Tigecycline S F Urine Culture - [facility] Testing performed at [facility] O:ESCCOL Isolated Urine Culture - [facility] [place] Count Organism: 1.1 Antibiotic Interpretation KAL Status Urine Culture [facility] Tobramycin S F Urine Culture [facility] Testing performed at [facility] O:ESCCOL Isolated Urine Culture - [facility] [place] Count Organism: 1.1 Antibiotic Interpretation KAL Status Urine Culture - [facility] Ampicillin/Sulbactam R F Urine Culture - [facility] Testing performed at [facility] O:ESCCOL Isolated Urine Culture - [facility] [place] Count Organism: 1.1 Antibiotic Interpretation KAL Status Urine Culture [facility] Cefazolin S F Urine Culture - [facility] Testing performed at [facility] O:ESCCOL Isolated Urine Culture - [facility] [place] Count Organism: 1.1 Antibiotic Interpretation KAL Status Urine Culture [facility] Cefepime S F Urine Culture [facility] Testing performed at [facility] O:ESCCOL Isolated Urine Culture - [facility] [place] Count Organism: 1.1 Antibiotic Interpretation KAL Status Urine Culture [facility] Ceftriaxone S F Urine Culture - [facility] Testing performed at [facility] O:ESCCOL Isolated Urine Culture - [facility] [place] Count Organism: 1.1 Antibiotic Interpretation KAL Status Urine Culture [facility] Cefuroxime S F Urine Culture - [facility] Testing performed at [facility] O:ESCCOL Isolated Urine Culture - [facility] [place] Count Organism: 1.1 Antibiotic Interpretation KAL Status Urine Culture [facility] Piperacillin/Tazoba ctam S F Urine Culture - [facility] Testing performed at [facility] O:ESCCOL Isolated Urine Culture - [facility] [place] Count Organism: 1.1 Antibiotic Interpretation KAL Status Urine Culture [facility] Trimethoprim/Sulfa S F Urine Culture - [facility] Testing performed at [facility] O:ESCCOL Isolated Urine Culture - [facility] [place] Count Organism: 1.1 Antibiotic Interpretation KAL Status Performing Lab: see note ML - [facility] LB SEE REPORT - Organizational Effectiveness Consultant Id information not found for OBX-specific online producer legend Troponin I High Sensitivity Reviewed date:03/05/2025 04:11:43 PM Interpretation: Performing Lab: Notes/Report: [facility] , Troponin I High Sensitivity 10.9 4.0-51.3 pg/mL CUT-OFF POINTS HAVE BEEN ESTABLISHED BASED ON THE FOURTH UNIVERSAL DEFINITION OF MYOCARDIAL INFARCTION. THE UPPER REFERENCE LIMIT (URL) OF TROPONIN, DEFINED THE 99TH PERCENTILE OF cTnI DISTRIBUTION IN A REFERENCE POPULATION, HAS BEEN CONFIRMED THE DECISION THRESHOLD FOR [place] DIAGNOSIS. 99TH PERCENTILE = 51.4 PG/ML NOTE: HIGH-SENSITIVITY TROPONIN ASSAY IS NOT INTENDED TO BE USED IN ISOLATION BUT SHOULD BE INTERPRETED IN CONJUNCTION WITH OTHER DIAGNOSTIC AND CLINICAL INFORMATION. Performing Lab: see note ML - [facility] LB Packed Red Blood Cells Reviewed date:03/07/2025 09:11:26 PM Interpretation: Performing Lab: Notes/Report: [facility] , Packed Red Blood Cells [id number] OP RC TRANSFUSED 03/06/25 1724 [id number] ON RC TRANSFUSED 03/06/25 0728 [id number] OP RC TRANSFUSED 03/06/25 0524 [id number] OP RC TRANSFUSED 03/06/256 LIVER PROFILE Reviewed date:03/05/2025 04:11:43 PM Interpretation: Performing Lab: Notes/Report: [facility] , Bilirubin Total 1.0 0.2-1.0 mg/dL Bilirubin Direct 0.4 0.0-0.2 mg/dL Aspartate Amino Transferase 30 15-37 U/L Alanine Aminotransferase 21 14-59 U/L Alkaline Phosphatase 123 46-116 U/L Total Protein 6.9 6.4-8.2 g/dL Albumin Level 2.8 3.4-5.0 g/dL Globulin 4.1 Albumin Globulin Ratio 0.7 Performing Lab: see note ML - [facility] LB CBC AUTO DIFF Reviewed date:03/05/2025 04:11:43 PM Interpretation: Performing Lab: Notes/Report: [facility] , White Blood Count 4.1 4.0-11.0 10 [...] Performing Lab: see note ML - [facility] LB BNP Reviewed date:03/05/2025 04:11:43 PM Interpretation: Performing Lab: Notes/Report: [facility] , NT Pro B Type Natriuretic Pept 507.0 <=900.0 pg/mL Performing Lab: see note - [facility] ANTIBODY ID PANEL Reviewed date:03/07/2025 09:11:26 PM Interpretation: Performing Lab: Notes/Report: [facility] , Antibody Identification K AMMONIA Reviewed date:03/06/2025 09:53:01 AM Interpretation: Performing Lab: Notes/Report: [facility] , Ammonia 42 11-32 umol/L RESULTS CALLED TO RAINA BLACKMON RN at 1854 Performing Lab: see note - [facility] LB CBC AUTO DIFF Reviewed date:12/31/2024 07:17:30 PM Interpretation: Performing Lab: Notes/Report: [facility] , White Blood Count 6.4 4.0-11.0 10 [...] Performing Lab: see note ML - [facility] LB PROF 14(COMP METB) Reviewed date:12/30/2024 11:28:24 AM Interpretation: Performing Lab: Notes/Report: [facility] , Sodium 141 136-145 mmol/L Potassium 4.8 [...] Globulin Ratio 0.6 Performing Lab: see note - [facility] LB HEMOGRAM AND PLATEL Reviewed date:12/30/2024 05:22:56 PM Interpretation: Performing Lab: Notes/Report: [facility] , Hemoglobin 9.1 12.0-16.0 g/dL Hematocrit 30.1 36.0-48.0 % Performing Lab: see note - [facility] LB CBC AUTO DIFF Reviewed date:12/30/2024 11:28:24 AM Interpretation: Performing Lab: Notes/Report: [facility] , White Blood Count 6.9 4.0-11.0 10 [...] Performing Lab: see note ML - [facility] LB CBC no Diff (Hemogram) Reviewed date:12/30/2024 11:28:24 AM Interpretation: Performing Lab: Notes/Report: [facility] , White Blood Count 7.1 4.0-11.0 10 [...] fL Performing Lab: see note ML - [facility] LB Troponin I High Sensitivity Reviewed date:12/30/2024 11:28:24 AM Interpretation: Performing Lab: Notes/Report: [facility] , Troponin I High Sensitivity 11.3 4.0-51.3 pg/mL CUT-OFF POINTS HAVE BEEN ESTABLISHED BASED ON THE FOURTH UNIVERSAL DEFINITION OF MYOCARDIAL INFARCTION. THE UPPER REFERENCE LIMIT (URL) OF TROPONIN, DEFINED THE 99TH PERCENTILE OF cTnI DISTRIBUTION IN A REFERENCE POPULATION, HAS BEEN CONFIRMED THE DECISION THRESHOLD FOR [place] DIAGNOSIS. 99TH PERCENTILE = 51.4 PG/ML NOTE: HIGH-SENSITIVITY TROPONIN ASSAY IS NOT INTENDED TO BE USED IN ISOLATION BUT SHOULD BE INTERPRETED IN CONJUNCTION WITH OTHER DIAGNOSTIC AND CLINICAL INFORMATION. Performing Lab: see note ML - [facility] LB Type and Screen Reviewed date:12/30/2024 05:22:56 PM Interpretation: Performing Lab: Notes/Report: [facility] , Blood Type O Positive Antibody Screen NEGATIVE Packed Red Blood Cells Reviewed date:12/30/2024 05:22:56 PM Interpretation: Performing Lab: Notes/Report: Packed Red Blood Cells [id number] ON RC TRANSFUSED 12/28/24 1318 [id number] ON RC TRANSFUSED 12/28/24 1721 [id number] OP RC TRANSFUSED 12/30/24 1045 [id number] OP RC TRANSFUSED 12/29/24 1103 [id number] OP RC TRANSFUSED 12/29/24 1329 [id number] OP RC NOT AVAILABLE Prothrombin Time INR Reviewed date:12/30/2024 11:28:24 AM Interpretation: Performing Lab: Notes/Report: [facility] , Prothrombin Time 13.8 9.0-11.6 sec INR 1.34 DESIRED INR: 2.0-3.0 CONDITIONS NOT LISTED BELOW 2.5-3.5 FOR PROSTHETIC HEART VALVE REPLACEMENT 2.5-3.5 RECURRENT THROMBOSIS Performing Lab: see note ML - [facility] LB PTT Reviewed date:12/30/2024 11:28:24 AM Interpretation: Performing Lab: Notes/Report: [facility] , Partial Thromboplastin Time 33.9 22.3-36.2 sec Performing Lab: see note ML - [facility] PROF CHEM 8 (BAS METB) Reviewed date:12/30/2024 11:28:24 AM Interpretation: Performing Lab: Notes/Report: [facility] , Sodium 141 136-145 mmol/L Potassium 5.4 [...] Performing Lab: see note ML - [facility] LB HEMOGRAM AND PLATEL Reviewed date:12/30/2024 11:28:24 AM Interpretation: Performing Lab: Notes/Report: [facility] , Hemoglobin 4.9 12.0-16.0 g/dL RESULTS LOREDO D TO DR. SALOMON AT 1217 Hematocrit 18.1 36.0-48.0 % RESULTS CALLED TO DR. SALOMON AT 1217 Performing Lab: see note ML - [facility] LB BNP Reviewed date:12/30/2024 11:28:24 AM Interpretation: Performing Lab: Notes/Report: [facility] , NT Pro B Type Natriuretic Pept 897.0 <=900.0 pg/mL Performing Lab: see note ML - [facility] LB PROF 14(COMP METB) Reviewed date:11/19/2024 08:36:55 PM Interpretation: Performing Lab: Notes/Report: [facility] , Sodium 141 136-145 mmol/L Potassium 3.8 [...] Performing Lab: see note ML - [facility] LB CBC AUTO DIFF Reviewed date:11/19/2024 08:36:55 PM Interpretation: Performing Lab: Notes/Report: [facility] , White Blood Count 9.0 4.0-11.0 10 [...] 10 3/uL Performing Lab: see note - [facility] LB BNP Reviewed date:11/19/2024 08:36:55 PM Interpretation: Performing Lab: Notes/Report: [facility] , NT Pro B Type Natriuretic Pept 4463.0 <=900.0 pg/mL RESULTS CALLED TO Jaymie Lopez RN Performing Lab: see note - [facility] LB DIGOXIN Reviewed date:11/18/2024 03:05:02 PM Interpretation: Performing Lab: Notes/Report: [facility] , Digoxin 1.0 0.9-2.0 ng/mL Performing Lab: see note - [facility] LB Manual Differential Reviewed date:11/17/2024 08:58:56 PM Interpretation: Performing Lab: Notes/Report: [facility] , Segmented Neutrophils % Manual 90.0 43.0-75.0 [...] 1 0 3/uL Performing Lab: see note ML - [facility] LB Prothrombin Time INR Reviewed date:11/17/2024 08:58:56 PM Interpretation: Performing Lab: Notes/Report: [facility] , Prothrombin Time 13.5 9.0-11.6 sec INR 1.31 DESIRED INR: 2.0-3.0 CONDITIONS NOT LISTED BELOW 2.5-3.5 FOR PROSTHETIC HEART VALVE REPLACEMENT 2.5-3.5 RECURRENT THROMBOSIS Performing Lab: see note ML - [facility] LB PTT Reviewed date:11/17/2024 08:58:56 PM Interpretation: Performing Lab: Notes/Report: [facility] , Partial Thromboplastin Time 36.7 22.3-36.2 sec Performing Lab: see note - [facility] LB PROF 14(COMP METB) Reviewed date:11/17/2024 08:58:56 PM Interpretation: Performing Lab: Notes/Report: [facility] , Sodium 139 136-145 mmol/L Potassium 4.3 [...] Performing Lab: see note ML - [facility] LB DIGOXIN Reviewed date:11/17/2024 08:58:56 PM Interpretation: Performing Lab: Notes/Report: [facility] , Digoxin 0.8 0.9-2.0 ng/mL Performing Lab: see note - [facility] LB CBC AUTO DIFF Reviewed date:11/17/2024 08:58:56 PM Interpretation: Performing Lab: Notes/Report: [facility] , White Blood Count 11.6 4.0-11.0 10 [...] Performing Lab: see note ML - [facility] LB BNP Reviewed date:11/17/2024 08:58:56 PM Interpretation: Performing Lab: Notes/Report: [facility] , NT Pro B Type Natriuretic Pept 32624.0 <=900.0 pg/mL RESULTS CALLED TO ICU Emerald Dominguez RN @BY Shelton Fernando MLT at 0643 Performing Lab: see note ML - [facility] LB CBC AUTO DIFF Reviewed date:11/15/2024 06:06:54 PM Interpretation: Performing Lab: Notes/Report: [facility] , White Blood Count 10.0 4.0-11.0 10 [...] fL Performing Lab: see note ML - [facility] LB BNP Reviewed date:11/15/2024 06:06:54 PM Interpretation: Performing Lab: Notes/Report: [facility] , NT Pro B Type Natriuretic Pept 58028.0 <=900.0 pg/mL RESULTS CALLED TO christine shankar rn @BY Payton Julien at 1308 Performing Lab: see note ML - [facility] LB PROF 14(COMP METB) Reviewed date:11/15/2024 06:06:54 PM Interpretation: Performing Lab: Notes/Report: [facility] , Sodium 132 136-145 mmol/L Potassium 4.7 [...] 0.3 Performing Lab: see note ML - [facility] LB HEMOGRAM AND PLATEL Reviewed date:11/15/2024 06:06:54 PM Interpretation: Performing Lab: Notes/Report: [facility] , Hemoglobin 7.5 12.0-16.0 g/dL Hematocrit 24.8 36.0-48.0 % Performing Lab: see note ML - [facility] LB CELL COUNT CSF Reviewed date:11/15/2024 06:06:54 PM Interpretation: Performing Lab: Notes/Report: [facility] , CSF Tube # 3 CSF Clarity CLEAR CLEAR CSF Color PINK COLORLESS CSF Total Volume 8.5 White Blood Cell CSF 2 0-5 cubic mm Red Blood Cell CSF 1638 0-0 cubic mm Performing Lab: see note ML - [facility] LB ECG 12 lead Reviewed date:11/17/2024 08:58:56 PM Interpretation: Performing Lab: Notes/Report: Source Facility: [place] [address] [place] [address] Electrocardiograph Report Signed Patient: CONNIE BRIAN MR#: [id number] : 1955 Acct:[id number] Age/Sex: 69 / F ADM Date: 11/14/24 Loc: ICU 274-[address]: Harry Valencia M.D. Ordering Physician: Howard Abarca D.O. 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 Signed By: <Electronically signed by Harry Valencia M.D.> 11/16/24 0653 DD/ TD/TT: Assessment Consultant: [place] [address] Electrocardiograph Report Signed Patient: STEPHEN BRIAN MR#: [id number] : 1955 Acct:[id number] Age/Sex: 69 / F ADM Date: 11/14/24 Loc: ICU 274-[address]: Miya Valencia M.D. Ordering Physician: Howard Abarca D.O. 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 Signed By: <Electronically signed by Harry Valencia M.D.> 11/16/24 0653 DD/ TD/TT: Assessment Consultant: Troponin I High Sensitivity Reviewed date:11/15/2024 06:06:55 PM Interpretation: Performing Lab: Notes/Report: [facility] , Troponin I High Sensitivity 8.4 4.0-51.3 pg/mL CUT-OFF POINTS HAVE BEEN ESTABLISHED BASED ON THE FOURTH UNIVERSAL DEFINITION OF MYOCARDIAL INFARCTION. THE UPPER REFERENCE LIMIT (URL) OF TROPONIN, DEFINED THE 99TH PERCENTILE OF cTnI DISTRIBUTION IN A REFERENCE POPULATION, HAS BEEN CONFIRMED THE DECISION THRESHOLD FOR [place] DIAGNOSIS. 99TH PERCENTILE = 51.4 PG/ML NOTE: HIGH-SENSITIVITY TROPONIN ASSAY IS NOT INTENDED TO BE USED IN ISOLATION BUT SHOULD BE INTERPRETED IN CONJUNCTION WITH OTHER DIAGNOSTIC AND CLINICAL INFORMATION. Performing Lab: see note ML - [facility] LB LACTATE or LACTIC ACID Reviewed date:11/15/2024 06:06:55 PM Interpretation: Performing Lab: Notes/Report: [facility] , Lactate/Lactic Acid 5.7 0.4-2.0 mmol/L RESULT S CALLED TO DR. ABARCA Performing Lab: see note ML - [facility] LB XR chest 1V Reviewed date:11/15/2024 06:06:55 PM Interpretation: Performing Lab: Notes/Report: Source Facility: [address] [address] XRay Report Signed Patient: CONNIE BRIAN MR#: [id number] : 1955 Acct:[id number] Age/Sex: 69 / F ADM Date: 11/14/24 Loc: ER Attending Dr: Ordering Physician: Sadie Cortes Date of Service: 11/14/24 Procedure(s): XR chest 1V Accession Number(s): [id number] cc: Harry Valencia M.D.; Sadie Cortes [place] [address] Patient Name: CONNIE BRIAN MRN: [id number] date: 1955 Sex: F Assigned Patient Location: ER Current Patient Location: ED.MAIN Accession/Order Number: [id number] Exam Date: 11/14/2024 18:52 Report Date: 11/14/2024 [...] normal with some mild central vascular prominence. potline monitor overlies left lower hemithorax. MEDIASTINAL AND HILAR CONTOUR: Within normal limits. PULMONARY PARENCHYMA AND PLEURA: No consolidation, edema, effusion, or pneumothorax. OSSEOUS STRUCTURES:Nothing significant. OTHER COMMENTS:None. XR/XR chest 1V IMPRESSION: Mild central vascular prominence. Borderline heart size. External cardiac exercise physiologist overlies left lower chest wall. This report was generated with voice recognition software. Effort has been made to ensure accuracy of this report, however, occasional wording errors may persist. Please contact our office with any questions. Electronically authenticated by: HARLEY BERNAL Date: 11/14/2024 19:36 Dictated By: Harley Bernal D.O. Signed By: 11/14/241938 DD/ 35 TD/TT: Assessment Consultant: The [address] [address] XRay Report Signed Patient: STEPHEN BRIAN MR#: [id number] : 1955 Acct:[id number] Age/Sex: 69 / F ADM Date: 11/14/24 Loc: ER Attending Dr: Ordering Physician: Sadie Cortes Date of Service: 11/14/24 Procedure(s): XR chest 1V Accession Number(s): [id number] cc: Harry Valencia M.D. ; Sadie Cortes [address] [address] Patient Name: CONNIE BRIAN MRN: [facility]:[id number] date: 1955 Sex: F Assigned Patient Location: ER Current Patient Loca tion: ED.MAIN Accession/Order Numb er: [id number] Exam Date: 18:52 Report Date: 11/14/2024 19:36 [...] normal with some mild central vascular prominence. potline monitor overlies left lower hemithorax. MEDIASTINAL AND [...] D.O. Signed By: 11/14/241938 DD/ 35 TD/TT: Assessment Consultant: ECG 12 lead Reviewed date:11/18/2024 03:05:02 PM Interpretation: Performing Lab: Notes/Report: Source Facility: [place] [address] [place] [address] Electrocardiograph Report Signed Patient: CONNIE BRIAN MR#: [id number] : 1955 Acct:[id number] Age/Sex: 69 / F ADM Date: 11/14/24 Loc: [place] 217-[address]: Harry Valencia M.D. 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 Signed By: 11/18/24 0734 DD/ 05 TD/TT: Assessment Consultant: [place] [address] Electrocardiograph Report Signed Patient: STEPHEN BRIAN MR#: [id number] : 1955 Acct:[id number] Age/Sex: 69 / F ADM Date: 11/14/24 Loc: [place] 217-[address]: Miya Valencia M.D. 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 Signed By: 11/18/24 0734 DD/ 190 TD/TT: Assessment Consultant: Box Test Reviewed date:11/17/2024 08:58:56 PM Interpretation: Performing Lab: Notes/Report: URINE CULTURE [facility] , BOX Test Sent Out URINE BOX Test Reference Lab [facility] BOX Test Date Sent 11/14/24 BOX Test Result SEE SCANNED REPORT Performing Lab: see note ML - [facility] LB Troponin I High Sensitivity Reviewed date:11/15/2024 06:06:55 PM Interpretation: Performing Lab: Notes/Report: [facility] , Troponin I High Sensitivity 5.7 4.0-51.3 pg/mL CUT-OFF POINTS HAVE BEEN ESTABLISHED BASED ON THE FOURTH UNIVERSAL DEFINITION OF MYOCARDIAL INFARCTION. THE UPPER REFERENCE LIMIT (URL) OF TROPONIN, DEFINED THE 99TH PERCENTILE OF cTnI DISTRIBUTION IN A REFERENCE POPULATION, HAS BEEN CONFIRMED THE DECISION THRESHOLD FOR [place] DIAGNOSIS. 99TH PERCENTILE = 51.4 PG/ML NOTE: HIGH-SENSITIVITY TROPONIN ASSAY IS NOT INTENDED TO BE USED IN ISOLATION BUT SHOULD BE INTERPRETED IN CONJUNCTION WITH OTHER DIAGNOSTIC AND CLINICAL INFORMATION. Performing Lab: see note - [facility] LB Type and Screen Reviewed date:11/15/2024 06:06:55 PM Interpretation: Performing Lab: Notes/Report: [facility] , Blood Type O Positive Antibody Screen NEGATIVE Manual Differential Reviewed date:11/15/2024 06:06:55 PM Interpretation: Performing Lab: Notes/Report: [facility] , Segmented Neutrophils % Manual 76.0 43.0-75.0 [...] 1+ Microcytosis 1+ Performing Lab: see note - [facility] LB Prothrombin Time INR Reviewed date:11/15/2024 06:06:55 PM Interpretation: Performing Lab: Notes/Report: [facility] , Prothrombin Time 12.8 9.0-11.6 sec INR 1.23 DESIRED INR: 2.0-3.0 CONDITIONS NOT LISTED BELOW 2.5-3.5 FOR PROSTHETIC HEART VALVE REPLACEMENT 2.5-3.5 RECURRENT THROMBOSIS Performing Lab: see note - [facility] LB URINE MICROSCOPIC ONLY Reviewed date:11/15/2024 06:06:55 PM Interpretation: Performing Lab: Notes/Report: [facility] , WBC Urine 2-5 NONE SEEN #/HPF RBC Urine 0-2 0-2 #/HPF Bacteria Urine MODERATE NONE SEEN #/HPF Mucus Urine NONE SEEN NONE SEEN Squamous Epithelial Cell Urine RARE NONE/RARE #/LPF Crystals Seen? None Seen None Seen #/HPF Cast Seen? NONE SEEN NONE SEEN #/LPF Urine Culture Indicated YES Performing Lab: see note - [facility] LB UA (CLEAN or CATCH) PERSONAL COUNSELOR or M ICRO IF IND. Reviewed date:11/15/2024 06:06:55 PM Interpretation: Performing Lab: Notes/Report: [facility] , Color Urine YELLOW YELLOW Clarity Urine CLEAR CLEAR Specific [place] Urine 1.025 1.005-1.025 pH Urine 5.0 5.0-9.0 Protein Urine TRACE NEG/TRACE mg/dL Glucose Urine UA >=1000 NEGATIVE mg/dL Bilirubin Urine SMALL NEGATIVE Ketones Urine TRACE NEGATIVE mg/dL Blood Urine NEGATIVE NEGATIVE Nitrite Urine NEGATIVE NEGATIVE Urobilinogen Urine 1.0 0.2-1.0 EU/dL Leukocyte Esterase Urine TRACE NEGATIVE Urine Microscopic Indicated YES Performing Lab: see note [facility] LB PROF 14(COMP METB) Reviewed date:11/15/2024 06:06:55 PM Interpretation: Performing Lab: Notes/Report: [facility] , Sodium 129 136-145 mmol/L Potassium 4.1 [...] Globulin Ratio 0.4 Performing Lab: see note - [facility] LB LACTATE or LACTIC ACID Reviewed date:11/15/2024 06:06:55 PM Interpretation: Performing Lab: Notes/Report: [facility] , Lactate/Lactic Acid 6.2 0.4-2.0 mmol/L RESULT S CALLED TO ricardo mclain rn Performing Lab: see note - [facility] LB CBC AUTO DIFF Reviewed date:11/15/2024 06:06:55 PM Interpretation: Performing Lab: Notes/Report: [facility] , White Blood Count 10.6 4.0-11.0 10 [...] 9.5-13.5 fL Performing Lab: see note - [facility] LB BNP Reviewed date:11/15/2024 06:06:55 PM Interpretation: Performing Lab: Notes/Report: [facility] , NT Pro B Type Natriuretic Pept 7070.0 <=900.0 pg/mL RESULTS CALLED TO DR Brayan ABARCA Performing Lab: see note - [facility] LB BLOOD CULTURE ID PANEL Reviewed date:11/15/2024 06:06:55 PM Interpretation: Performing Lab: Notes/Report: [facility] , CTX-M NOT APPLICABLE NOT DETECTE IMP [...] DETECTE Performing Lab: see note ML - [facility] LB ECG 12 lead Reviewed date:11/06/2024 12:23:59 PM Interpretation: Performing Lab: Notes/Report: Source Facility: [place] [address] Electrocardiograph Report Signed Patient: CONNIE BRIAN MR#: [id number] : 1955 Acct:[id number] Age/Sex: 68 / F ADM Date: 11/02/24 Loc: ER Attending Dr: Ordering Physician: Sadie Cortes Date of Service: 11/02/24 Procedure(s): ECG 12 lead Accession Number(s): [id number] cc: 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 Signed By: 11/06/2452 DD/ 9 TD/TT: Assessment Consultant: ASAD ELAM LT MIN 3V Reviewed date:11/04/2024 08:21:50 PM Interpretation: Performing Lab: Notes/Report: Source Facility: [place] [address] [place] [address] XRay Report Signed Patient: CONNIE BRIAN MR#: [id number] : 1955 Acct:[id number] Age/Sex: 68 / F ADM Date: 11/02/24 Loc: ER Attending Dr: Ordering Physician: Sadie Cortes Date of Service: 11/02/24 Procedure(s): XR hand LT min 3V Accession Number(s): [id number] cc: Harry Valencia M.D.; Sadie Cortes [place] [address] Patient Name: CONNIE BRIAN MRN: [id number] date: 1955 Sex: F Assigned Patient Location: ER Current Patient Location: ER Accession/Order Number: [id number] Exam Date: 11/02/2024 09:45 Report Date: 11/02/2024 [...] By: Maisha Albright M.D. Signed By: 11/02/24 1023 DD/ 1020 TD/TT: Assessment Consultant: [place] [address] XRay Report Signed Patient: STEPHEN BRIAN MR#: [id number] : 1955 Acct:[id number] Age/Sex: 68 / F ADM Date: 11/02/24 Loc: ER Attending Dr: Ordering Physician: Sadie Cortes Date of Service: 11/02/24 Procedure(s): XR red d LT min 3V Accession Number(s): [id number] cc: Harry Valencia M.D. ; Sadie Cortes [address] [place] [address] Patient Name: CONNIE BRIAN MRN: [id number] date: 1955 Sex: F Assigned Patient Location: ER Current Patient Loca tion: ER Accession/Order Numb er: [id number] Exam Date: 09:45 Report Date: 11/02/2024 10:20 [...] By: Prasanna Albright M.D. Signed By: 11/02/24 1023 DD/ 1020 TD/TT: Assessment Consultant: Troponin I High Sensitivity Reviewed date:11/04/2024 08:21:50 PM Interpretation: Performing Lab: Notes/Report: [facility] , Troponin I High Sensitivity 38.0 4.0-51.3 pg/mL CUT-OFF POINTS HAVE BEEN ESTABLISHED BASED ON THE FOURTH UNIVERSAL DEFINITION OF MYOCARDIAL INFARCTION. THE UPPER REFERENCE LIMIT (URL) OF TROPONIN, DEFINED THE 99TH PERCENTILE OF cTnI DISTRIBUTION IN A REFERENCE POPULATION, HAS BEEN CONFIRMED THE DECISION THRESHOLD FOR [place] DIAGNOSIS. 99TH PERCENTILE = 51.4 PG/ML NOTE: HIGH-SENSITIVITY TROPONIN ASSAY IS NOT INTENDED TO BE USED IN ISOLATION BUT SHOULD BE INTERPRETED IN CONJUNCTION WITH OTHER DIAGNOSTIC AND CLINICAL INFORMATION. Performing Lab: see note ML - [facility] LB Prothrombin Time INR Reviewed date:11/04/2024 08:21:50 PM Interpretation: Performing Lab: Notes/Report: [facility] , Prothrombin Time 10.9 9.0-11.6 sec INR 1.03 DESIRED INR: 2.0-3.0 CONDITIONS NOT LISTED BELOW 2.5-3.5 FOR PROSTHETIC HEART VALVE REPLACEMENT 2.5-3.5 RECURRENT THROMBOSIS Performing Lab: see note - [facility] LB PROF 14(COMP METB) Reviewed date:11/04/2024 08:21:50 PM Interpretation: Performing Lab: Notes/Report: [facility] , Sodium 140 136-145 mmol/L Potassium 4.1 [...] Globulin Ratio 0.6 Performing Lab: see note - [facility] MAGNESIUM Reviewed date:11/04/2024 08:21:50 PM Interpretation: Performing Lab: Notes/Report: [facility] , Magnesium 1.7 1.8-2.4 mg/dL Performing Lab: see note - [facility] CBC AUTO DIFF Reviewed date:10/07/2024 02:07:24 PM Interpretation: Performing Lab: Notes/Report: [facility] , White Blood Count 5.7 4.0-11.0 10 [...] 3/uL Performing Lab: see note ML - [facility] LB Occult Blood* Reviewed date:09/29/2024 04:03:46 PM Interpretation: Performing Lab: Notes/Report: [facility] , Occult Blood Positive Performing Lab: see note - [facility] LB Type and Screen Reviewed date:09/29/2024 04:03:46 PM Interpretation: Performing Lab: Notes/Report: [facility] , Blood Type O Positive Antibody Screen NEGATIVE Packed Red Blood Cells Reviewed date:09/29/2024 04:03:46 PM Interpretation: Performing Lab: Notes/Report: Packed Red Blood Cells [id number] OP RC TRANSFUSED 09/28/24 1126 [id number] OP RC TRANSFUSED 09/28/24 1321 Second ABO/RH Type Reviewed date:09/29/2024 04:03:46 PM Interpretation: Performing Lab: Notes/Report: [facility] , Blood Type #2 O Positive CBC AUTO DIFF Reviewed date:09/21/2024 09:21:49 PM Interpretation: Performing Lab: Notes/Report: [facility] , White Blood Count 4.8 4.0-11.0 10 [...] Performing Lab: see note ML - [facility] LB SARS-CoV-2 Ag* Reviewed date:06/24/2024 04:43:46 PM Interpretation: Performing Lab: Notes/Report: [facility] , SARS-CoV-2 Ag NEGATIVE NEGATIVE This test [...] Performing Lab: see note ML - [facility] LB IRON Reviewed date:03/05/2025 04:11:43 PM Interpretation: Performing Lab: Notes/Report: [facility] , Iron 15.0 50.0-170.0 ug/dL Performing Lab: see note ML - [facility] LB FERRITIN Reviewed date:03/05/2025 04:11:43 PM Interpretation: Performing Lab: Notes/Report: [facility] , Ferritin 7.0 8.0-252.0 ng/mL Performing Lab: see note ML - [facility] LB CBC AUTO DIFF Reviewed date:03/05/2025 01:33:59 PM Interpretation: Performing Lab: Notes/Report: [facility] , White Blood Count 3.8 4.0-11.0 10 [...] Performing Lab: see note ML - [facility] LB CBC AUTO DIFF Reviewed date:10/01/2024 06:50:54 PM Interpretation: Performing Lab: Notes/Report: [facility] , White Blood Count 5.4 4.0-11.0 10 [...] Performing Lab: see note ML - [facility] LB Reason For Referral Diagnosis 1 Blood loss anemia (D 50.0) Referral Organization [facility] Referring Provider First Name Shaq Referring Provider Last Name Erik Referring Provider [facility] Referred Provider Manoj Damon Referred Provider Specialty General Surg josé antonio Referral Priority Routine Diagnosis 1 Unspecified cirrhosi s of liver (K74.60) Referral Organization [facility] Referring Provider First Name Shaq Referring Provider Last Name [facility] Referring Provider [facility] Referred Organization [facility] Referred Provider Blanca Mak Referred Address [address] [facility],[place], [place],[address], Referred Provider Specialty Gastroentero logy Referral Priority Routine Diagnosis 1 Blood loss anemia (D 50.0) Referral Organization [facility] Referring Provider First Name Shaq Referring Provider Last Name [facility] Referring Provider [facility] Referred Provider Jesus Emerson Referred Provider Specialty Gastroentero logy Referral [...] a day for 5 days 12/17/2024 Active Ojadywil-Ijvegutvj-Isntj eth 3.5-61790-7.1 1 drop into affected eye Ophthalmic Four times a day for 7 days 04/19/2025 Active Ramipril 10 mg TAKE 1 CAPSULE [...] Problem Status W/U Status Risk Notes Problem 530446053 Anemia, unspecif ied (D64.9) Active confirmed Problem 477224451 Hyperlipidemia, unspecified (E78.5) Active confirmed Problem Hypomagnesemia (373289465) Hypomagnesemia (E83.42) Active confirmed Problem Palpitations (17959609) Palpitations (R00.2) Active confirmed Problem Hypertension (67069828) Hypertension (I10) Active confirmed Problem Congestive heart failure (44032865) CHF (congestive heart failure) (I50.9) Active confirmed Problem Dyslipidemia (611645580) Dyslipidemia (E78.5) Active confirmed Problem Atrial fibrillation (disorder) (58319517) Afib (I48.91) Active confirmed Problem Chronic kidney disea se (629234041) Chronic kidney disease (N18.9) Active confirmed Problem Anemia (548665283) Anemia (D64.9) Active confir med Problem Essential hypertensi on (65611827) Benign essential HTN (I10) Active confirmed Problem Sleep apnea (38932830) Sleep guide cruise ea (G47.30) Active confirmed Problem Atrial fibrillation (82395267) Atrial fibrillation (I48.91) Active confirmed Problem Type 2 diabetes mellitus (33427890) DM type 2 (diabetes mellitus, type 2) (E11.9) Active confirmed Problem Disorder of lumbar disc (677995928) Lumbar disc disease (M51.9) Active confirmed Problem Cirrhotic (835712433) Cirrhosis (K74.60) Active confirmed Problem 39837834 Acute bronchitis , unspecified organism (J20.9) Active confirmed Problem Atrial fibrillation (33600821) Atrial fibrillation with RVR (I48.91) Active confirmed Problem Cataract (952967248) Cataract (H26.9) Active co nfirmed Problem Chest wall pain (297631657) Chest wall pain (R07.89) Active confirmed Problem Anemia due to chroni c blood loss (208395061) Blood loss anemia (D50.0) Active confirmed Problem 624909470 Rotator cuff tea r, left (M75.102) Active confirmed Problem Fluid overload (44970261) Fluid overload (E87.70) Active confirmed Problem Diverticular disease of colon (214494244) Diverticula of colon (K57.30) Active confirmed Problem Cervical strain (617863978) Cervical strain (S16.1XXA) Active confirmed Problem Dry eye syndrome (20011683) Dry eye syndrome (H04.129) Active confirmed Problem Altered mental statu s (138222812) Altered mental state (R41.82) Active confirmed Problem Gastrointestinal hemorrhage (51805583) Upper GI bleed (K92.2) Active confirmed Problem 380061465 Biceps tendiniti s of left shoulder (M75.22) Active confirmed Problem Cirrhosis - non-alcoholic (105291078) Cirrhosis of liver with ascites (K74.60) Active confirmed Problem Essential hypertensi on (68291191) BP (high blood pressure) (I10) Active confirmed Problem hypercholesterolemia (disorder) (02435622) Hypercholesteremia (E78.00) Active confirmed Problem 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, unspecified residential insulin use status (E11.3293) Active confirmed Problem 914968748 Enterocolitis du e to Clostridium difficile, not specified as recurrent (A04.72) Active confirmed Problem Type II diabetes mellitus without complication (283820400) Diabetes (E11.9) Active confirmed Problem Diabetes mellitus (18112737) Diabetes mellitus (E11.9) Active confirmed Vital Signs Temperature 98.9 degrees Fahrenheit 12/17/2024 Blood pressure diastolic 56 mm Hg 03/14/2025 Height 66 in 03/14/2025 Blood pressure systolic 152 mm Hg 03/14/2025 Weight 216.6 lbs 03/14/2025 BMI 34.96 kg/m2 03/14/2025 Encounters Encounter Location Date Provider Diagnosis [facility] [address] [place] [address] 03/25/2025 Shaq Valencia [facility] [address] [place] [address] 04/02/2025 Shaq Valencia Chest wall pain R07. 89 [facility] [address] [place] [address] 04/10/2025 Shaq gudelia [facility] [address] [place] [address] 04/19/2025 Shaq [facility] [address] [place] [address] 03/05/2025 Shaq [facility] [address] [place] [address] 03/05/2025 Shaq [facility] [address] [facility] [place] [address] 03/07/2025 Shaq Hoy Upper GI bleed K92.2 and Acute kidney failure, unspecified N17.9 [facility] [address] [facility] [place] [address] 03/09/2025 Shaq Valencia [facility] [address] [place] [facility] [place] [address] 03/11/2025 Shaq Maurogudelia [facility] [address] [facility] [place] [address] 03/18/2025 Shaq Valencia [facility] [address] [place] [facility] [place] [address] 12/28/2024 Shaq Njy Chronic kidney disea se N18.9 [facility] [address] [facility] [place] [address] 12/31/2024 Shaq Maurogudelia [facility] [address] [facility] [place] [address] 12/31/2024 Shaq Hoy Unspecified cirrhosi s of liver K74.60 and Gastrointestinal hemorrhage, unspecified K92.2 [facility] [address] [place] [facility] [place] [address] 01/02/2025 Shaq [facility] [address] [place] [facility] [place] [address] 01/04/2025 Shaq Hoy Blood loss anemia D5 0.0 and Cirrhosis K74.60 [facility] [address] [place] [facility] [place] [address] 03/04/2025 Shaq Hoy Anemia D64.9 ; Hypertension I10 and Blood loss anemia D50.0 [facility] [address] [place] [facility] [place] [address] 11/23/2024 Shaq Erik [facility] [address] [facility] [place] [address] 11/26/2024 Shqa Valencia [facility] [address] [facility] [place] [address] 11/26/20[facility] [address] [facility] [place] [address] 11/30/2024 Shaq Valencia Cervical strain S16. 1XXA [facility] [address] [place] [facility] [place] [address] 12/13/2024 Shaq Valencia [facility] [address] [facility] [place] [address] 12/26/2024 Shaq Valencia Chest wall pain R07. 89 [facility] [address] [facility] [place] [address] 10/01/2024 Shaq Valencia Anemia, unspecified D64.9 [facility] [address] [facility] [place] [address] 10/07/2024 Shaq Erik [facility] [address] [facility] [place] [address] 10/08/2024 Shaq Erik [facility] [address] [place] [facility] [place] [address] 11/19/2024 Shaq Valencia Medication managemen t Z79.899 [facility] [address] [facility] [place] [address] 11/22/2024 Shaq Erik [facility] [address] [facility] [place] [address] 11/22/2024 Shaq Valencia [facility] [address] [facility] [place] [address] 08/31/2024 Shaq Valencia [facility] [address] [facility] [place] [address] 09/14/2024 Shaq Valencia Chest wall pain R07. 89 [facility] [address] [facility] [place] [address] 09/17/2024 Shaq Valencia Hypertension I10 ; Chronic kidney disease N18.9 ; DM type 2 (diabetes mellitus, type 2) E11.9 ; Atrial fibrillation I48.91 and Chest wall pain R07.89 [facility] [address] [facility] [place] [address] 09/21/2024 Shannan Swain [facility] [address] [facility] [place] [address] 09/23/2024 Shaq Valencia [facility] [address] [facility] [place] [address] 09/29/2024 Shaq Hoy Anemia, unspecified D64.9 [facility] [address] [facility] [place] [address] 06/24/2024 Shaq Mauroy [facility] [address] [facility] [place] [address] 07/03/2024 Shaq Hoy Chronic kidney disea se N18.9 [facility] [address] [facility] [place] [address] 07/09/2024 Shaq Valencia [facility] [address] [place] [place] [address] 11/12/2024 Shaq Hoy Cervical strain S16. 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, unspecified residential insulin use status E11.3293 and Blood loss anemia D50.0 [facility] [address] [place] [place] [address] 11/26/2024 Shaq Hoy Palpitations R00.2 ; Atrial fibrillation I48.91 ; 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, unspecified tank terminal gauger insulin use status E11.3293 and Cervical strain S16.1XXA [facility] [address] [place] [place] [address] 12/17/2024 Shaq Hoy Palpitations R00.2 ; Hypertension I10 ; Atrial fibrillation I48.91 and DM type 2 (diabetes mellitus, type 2) E11.9 [facility] [address] [place] [facility] [place] [address] 12/25/2024 Shaq Mauroy Chronic kidney disea se N18.9 ; Hypertension I10 and Fluid overload E87.70 [address] [place] [address] 12/28/2024 Shaq Hoy Hypertension I10 and Fluid overload E87.[address] [address] 01/04/2025 Shaq Hoy Upper GI bleed K92.2 and Cirrhosis K74.60 [address] [place] [address] 03/14/2025 Shaq Hoy Gastroenteritis K52. 9 and Cirrhosis K74.60 Assessments Encounter Date Diagnosis (ICD Code) Assessment [...] East back into eating by eating bland, blgm-vk-lterfn foods like crackers, toast, gelatin, bananas, rice and chicken. Try to avoid foods/substances including dairy products, caffeine, alcohol, nicotine and fatty or highly seasoned foods. Medications such as ibuprofen or tylenol can make your stomach more upset, so use sparingly if at all. Also avoid qaer-unv-ayobmfz anti-diarrheal medications because it can make it harder for your body to eliminate the virus. 03/14/2025 Cirrhosis (ICD-10 - K74.60) 12/17/2024 Palpitations (ICD-10 - R00.2) 12/17/2024 Hypertension (ICD-10 - I10) 12/25/2024 Chronic kidney disease (ICD-10 - N18.9) 12/25/2024 Hypertension (ICD-10 - I10) 06/22/2024 Acute bronchitis, unspecified organism (ICD-10 - J20.9) Rest and drink more liquids, especially water. You may use a humidifier or vaporizer to help keep the drainage moist. Zwnz-pwm-weyzgtm Nasal Saline may help the stuffy and runny nose. Use Ibuprofen and or Tylenol as needed for fever, chills, body aches or pain. Children 5 years old should not be given zeff-xnb-absavfh cough and cold medications such as guaifenesin and dextromethorphan. 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, unspecified residential insulin use status (ICD-10 - E11.3293) 12/25/2024 [...] 11/19/2024 CARDIO Holter Event Monitor 4 weeks 0705/2023 COMPREHENSIVE METABOLIC PROFILE WITH GFR 09/17/2024 OCCULT [...] End Date [place] [address] [place] [address] [id number] Connie Brian Self - patient is the insured Medications Administered Medication Instructions Date of Administration Dosage Notes Dexamethasone, 4mg/mL 11/12/2024 12 mg Ketorolac Tromethamine 11/12/2024 60 mg Medical (General) History Medical History History ICD Code Uterine Cancer Palpitations R00.2 Type 2 diabetes mellitus wit h mild nonproliferative retinopathy of both eyes without macular edema, unspecified residential insulin use status E11.3293 Cataract H26.9 Dry eye syndrome H04.129 Lumbar disc disease M51.9 Hypercholesteremia E78.00 Hypertension I10 Diverticula of colon K57.30 Chronic kidney disease N18.9 Atrial fibrillation I48.91 Kidney stone N20.0 DUB (dysfunctional uterine bleeding) N93 .8 Anemia D64.9 Right rib fracture S22.31XA Injury to Spleen Surgical History Surgery Date(Month/Year) Rotator Cuff Repair 2016 Hernia Csection 1987 Tonsils and Adenoids 1960 Gallbladder 1984 Appendix 1984 Hystertectomy 2010 Herniorrhaphy, Dr. Mullins EGD and Colonoscopy- dr Damon 11/01/2024 Hospitalization History Reason Date(Month/Year) A-Fib 06/12 See Above low HGB 02/2025 GI bleed 01/15 UTI, A-fib, C-diff 11/13
--- OUTSIDE RECORDS SUMMARY | 2025-06-10 15:28 | XMS_ITS | Encounter Summary ---
Author Organization [facility] Address [address] [place] [address] Care Team Providers Care Photo Journalist Name Role Phone Harry Valencia MD Primary Care Provider [phone] Harry Valecnia MD Primary Care Provider [phone] Encounter Details Date Type Department Care Team (Late st Contact Info) Description 11/19/2024 Orders Only [facility] [address] [place] [address] Micheal Vincent MD [address] [place] [address] Social History Tobacco Use Types Packs/Day Years [...] on filedocumented in this encounter Care Teams Photo Journalist Relationship Specialty Start Date End Date Harry Valencia MD PCP - General Family Medicine 11/26/24 04/04/25 Harry Valencia MD [address] [place] [address] PCP - General Family Medicine 04/05/25 documented as of this encounter
--- OUTSIDE RECORDS SUMMARY | 2025-06-10 15:28 | XMS_ITS | Clinical Summary ---
Author Organization [facility] Address [address] [place] [address] Care Team Providers Care Kiln Maintenance Name Role Phone Harry Suárez MD Primary Care Provider [phone] Allergies Active Allergy Reactions Criticality Noted Date Comments Sulfa (Sulfonamide Antibiotics) Hives Low 07/2019 Medications Eliquis 5 mg tablet Take 5 mg by mouth two times daily. 05/27/20 23 Active metFORMIN (Glucophage) 500 mg tablet Take 1 tablet by mouth twice a day. Active venlafaxine XR (Effexor-XR) 75 mg 24 hr capsule Take 75 mg by mouth in the morning. 05/23/20 23 Active simvastatin (Zocor) 20 mg tablet Take 20 mg by mouth at bedtime. 03/27/20 23 Active ramipril (Altace) 10 mg capsule Take 10 mg by mouth in the morning. 04/02/20 23 Active diclofenac (Voltaren) 75 mg EC tablet Take 75 mg by mouth if needed. 12/04/19 24 Active pantoprazole (ProtoNix) 40 mg EC tablet Take 40 mg by mouth if needed each day. 12/04/19 24 Active magnesium oxide (Mag-Ox) 400 mg (241.3 mg magnesium) tabletIndications: Paroxysmal atrial fibrillation (CMS/HCC) Take 1 tablet (400 mg) by mouth once daily as directed. 90 tablet 3 04/19/20 24 Active Additional Information Patient taking differently:400 mg oral2 times daily, Reported on 06/03/2025 furosemide (Lasix) 20 mg tabletIndications: Paroxysmal atrial fibrillation (CMS/HCC) Take 1 tablet (20 mg) by mouth in the morning. 90 tablet 3 07/12/20 24 025 Active metoprolol tartrate (Lopressor) 100 mg tabletIndications: Paroxysmal atrial fibrillation (CMS/HCC) Take 1 tablet (100 mg) by mouth two times daily. 180 tablet 3 11/09/20 24 025 Active Additional Information Patient not taking.Reported on 04/18/2025 amiodarone (Pacerone) 200 mg tabletIndications: Paroxysmal atrial fibrillation (CMS/HCC) Take 2 tablets (400 mg) by mouth two times daily for 14 days, THEN 1 tablet (200 mg) in the morning. 146 tablet 12/18/19 25 026 Active metoprolol succinate XL (Toprol-XL) 25 mg 24 hr tabletIndications: Paroxysmal atrial fibrillation (CMS/HCC) Take 1 tablet (25 mg) by mouth in the morning. Do not crush or chew. 90 tablet 3 12/18/19 25 026 Active Additional Information Patient not taking.Reported on 04/18/2025 spironolactone (Aldactone) 25 mg tablet TAKE 2 TABLETS BY MOUTH DAILY FOR 3 DAYS 12/25/19 25 Active ondansetron ODT (Zofran-ODT) 4 mg disintegrating tablet Take 4 mg by mouth every 8 (eight) hours if needed for nausea or vomiting. Active spironolactone (Aldactone) 50 mg tabletIndications: Cirrhosis of liver with ascites, unspecified hepatic cirrhosis type (CMS/HCC) Take 1 tablet (50 mg) by mouth in the morning. 30 tablet 11 04/10/20 25 026 Active sucralfate (Carafate) 1 gram tablet Take 1 g by mouth before breakfast and before evening meal. 04/05/20 25 Active polyethylene glycol (Glycolax) 17 gram/dose powderIndications: Iron deficiency anemia due to chronic blood loss,AVM (arteriovenous malformation) of colon with hemorrhage Take as directed over two days for bowel prep for video capsule endoscopy 238 g 05/03/20 25 Active simethicone (Mylicon) 40 mg/0.6 mL dropsIndications:I walt deficiency anemia due to chronic blood loss,AVM (arteriovenous malformation) of colon with hemorrhage Take as directed over two days for bowel prep for video capsule endoscopy 30 mL 05/03/20 25 Active Active Problems Problem Noted Date Diagnosed [...] Assessment & Plan (06/28/2023 3:16 PM EDT): -[id number] at least 4 for age, gender, hypertension, [...] Encounters Date Type Department Care Team Description 05/28/2025 9:00 AM EDT Procedure Visit [address] [place] [address] Jessica Oates CNP AVM (arteriovenous malformation) (Primary Dx); History of colonoscopy with polypectomy; Iron deficiency anemia due to chronic blood loss; AVM (arteriovenous malformation) of colon; Other specified postprocedural states 05/03/2025 Orders Only [address] [place] [address] Sapphire Gaytan, RN Iron deficiency anemia due to chronic blood loss (Primary Dx); AVM (arteriovenous malformation) of colon with hemorrhage 04/26/2025 Orders [place] [address] [place] [address] Sapphire Gaytan, RN Iron deficiency anemia due to chronic blood loss; AVM (arteriovenous malformation) of colon; Other specified postprocedural states 04/23/2025 11:45 AM EDT Office Visit [address] [address] Rogers Catalan MD Persistent atrial fibrillation (CMS/HCC) (Primary Dx) 04/22/2025 Orders Only [place] [place] [place] [address] Zuri Law MD 04/19/2025 Telephone [facility] Gastroenterology [address] [place] [address] Anna Ayoub RN 04/18/2025 Travel 04/18/2025 Orders Only [facility] Pre-Operation [address] [place] [address] Fanta Espino CNP Preoperative testing (Primary Dx); Preop testing; Type 2 diabetes mellitus with other specified complication, unspecified whether skilled nursing insulin use (CMS/HCC) 04/17/2025 Orders Only [facility] [address] [place] [address] Cande Steele MA Abnormal laboratory test 04/10/2025 1:30 PM EDT Follow-Up [facility] Gastroenterology [address] [place] [address] Beni Gomez MD Cirrhosis of liver with ascites, unspecified hepatic cirrhosis type (CMS/HCC) (Primary Dx) from Last 3 Months Immunizations Immunization Administration Dates Next Due Influenza, Unspecified 10/31/2017,09/24/2016 [...] drink = 0.6 oz pur e alcohol) [place] Safety & Environment Answer Date Rec orded [...] Description 06/13/2025 8:00 AM EDT Hospital Encounter [facility] Lab [address] [place] [address] Rogers Catalan MD [address] [place] [address] Paroxysmal atrial fibrillation (CMS/HCC) 06/13/2025 8:00 AM EDT - 06/13/2025 12:00 PM EDT Surgery [facility] [address] [place] [address] Rogers Catalan MD [address] [place] [address] Ablation a-fib paroxysmal [15755] 06/13/2025 8:00 AM EDT Appointment [facility] [address] [place] [address] 10/16/2025 1:30 PM EST Follow-Up [facility] Gastroenterology [address] [facility] [place] [phone] Beni Gomez MD [address] [facility] [address] [facility] [place] [phone] Health Maintenance Due Date Last Done Comments CT Colonography 1955 Diabetes: Hemoglobin A1C 1955 FIT-DNA 1955 FIT 1955 FOBT 1955 Medicare Annual Wellness (AWV) 1955 Sigmoidoscopy 1955 Diabetes: Retinopathy Screening 1966 Depression Screening 1968 Diabetes: Urine Protein Screening 1975 Mammogram 1996 Zoster Vaccines (1 of 2) 2006 Fall Risk Screening 2021 COVID-19 Vaccine (3 2023- season) 2024 09/29/2021, 01/25/2021 Influenza Vaccine (#1) 2025 , 09/01/2022, 08/11/2021, Additional history exists Adult Tetanus 07/20/2032 07/20/2022, 03/12/2016 Colonoscopy 11/07/2034 11/07/2024, 03/14/2008 Colorectal Cancer Screening 11/07/2034 Pneumococcal Vaccine: 50+ Years Completed 12/29/2024, 10/31/2017 HIB Vaccines Aged [...] this topic Medical Devices Implanted Type Area Yardage Control Operator Device Identifier Shelf Expiration Date Model / Serial / Lot Monitor,López shannon,Lux,Dxii+I - [id number] - [id number] Implanted:Qty : 1 on 08/06/2024 by Rogers Catalan MD at [facility] Implantable Loop Recorder Left: Chest Rhomania 12/28/2025 [id number] / [id number] / Procedures Procedure Name Priority Date/Time Associated Diagnosis Comments CBC Routine 04/22/2025 2:02 PM EDT CARDIAC DEVICE CHECK CHECK - REMOTE Routine 04/01/2025 12:44 PM EDT Awareness of heartbeats from Last 3 Months Results * CBC (04/22/2025 2:02 PM EDT) Blood Venous blood specimen / Unknown Historical Provider LAB BLOOD ORDERABLES Irish l Result * CARDIAC DEVICE CHECK - REMOTE - LOOP RECORDER (ILR) (04/01/2025 12:44 PM EDT) Rogers Catalan MD CV IMPLANTABLE CARDIAC DEVICE RI OCEDURES Final Result CPACS from Last 3 Months Insurance MEDICARE Care Teams Kiln Maintenance Relationship Specialty Start Date End Date Harry Suárez MD [address] [facility] [address] [address] PCP - General 06/20/23
--- OUTSIDE RECORDS SUMMARY | 2025-06-10 15:28 | XMS_ITS | Clinical Summary ---
Author Organization [facility]ly [facility] tem Address [id number] [address] [place] [address] Care Team Providers Care Sustainability Project Coordinator Name Role Phone Harry Valencia MD Primary Care Provider [phone] Allergies Active Allergy Reactions Criticality Noted Date [...] tablet (5 mg total) before bedtime. Active Encounters Date Type Department Care Team Description 04/25/2025 8:00 AM EDT - 04/25/2025 9:00 AM EDT Surgery [facility] - Endoscopy [address] [place] [address] Jesus Emerson MD ESOPHAGOGASTRODUODENOSCOPY ARGON PLASMA COAGULATION [09590 (CPT )] 04/25/2025 8:00 AM EDT Anesthesia Event [facility] Endoscopy [address] [place] [phone] Zayra Castro MD 04/25/2025 5:38 AM EDT - 04/25/2025 9:36 AM EDT Hospital Encounter [facility] - Surgery [address] [facility] [place] [address] Jesus Emerson MD Melena (Primary Dx) Discharge [...] 2006 Fall Risk Screening 2021 COVID-19 Vaccine (2023-2 5 season) 2024 09/29/2021, 01/25/2021 Influenza Vaccine [...] MALFORMATIONS Case Notes REQ 45 TOTAL- INDIRA KS EGD TRANSORAL CONTROL BLEEDING ANY METHOD 04/25/2025 [...] - 99 mg/dL 04/25/2025 9:03 AM EDT [facility] Blood specimen (specimen) 04/25/2025 8:58 AM EDT 04/25/2025 9:03 AM EDT us Jesus Emerson MD POINT OF CARE TEST ORDERABLES Fi nal Result [facility] [address] [place] [address], [place] * EGD Report (04/25/2025 7:51 AM [...] PM CARDIOVASCULAR - 04/25/2025 12:06 PM EDT [facility] Patient Name: Shirley Brian Procedure Date: 04/25/2025 7:47 AM CSN: [id number] Date of : 1955 Admit Type: Outpatient Age: 69 Room: [place] [address] Gender: Female Note Status: Finalized Attending MD: [...] the fellow. Procedure Code(s): --- Professional --- 69157, Esophagogastroduodenoscopy, flexible, transoral; diagnostic, including collection of specimen(s) by brushing or washing, when performed (separate procedure) Diagnosis Code(s): --- Professional --- K31.89, Other diseases of stomach and duodenum K55.20, Angiodysplasia of colon without hemorrhage K92.1, Melena (includes Hematochezia) CPT copyright 2022 [employer]. All rights reserved. The codes documented in this report are preliminary and upon client account specialist review may be revised to meet current compliance requirements. Dr. Jesus Emerson, 04/25/2025 12:05:42 PM Scar Dimas, Number of Addenda: 0 Note Initiated On: 04/25/2025 7:47 AM Procedure Note Jesus Emerson MD - 04/25/2025 [facility] Patient Name: Shirley Brian Procedure Date: 04/25/2025 7:47 AM CSN: [id number] Date of : 1955 Admit Type: Outpatient Age: 69 Room: [place] [address] Gender: Female Note Status: Finalized Attending MD: [...] the fellow. Procedure Code(s): --- Professional --- 01880, Esophagogastroduodenoscopy, flexible, transoral; diagnostic, including collectionof specimen(s) by brushing or washing, when performed (separate procedure) Diagnosis Code(s): --- Professional --- K31.89, Other diseases of stomach andduodenum K55.20, Angiodysplasia of colon without hemorrhage K92.1, Melena (includes Hematochezia) CPT copyright 2022 [employer]. All rights reserved. The codes documented in this report are preliminary and upon client account specialist reviewmay be revised to meet current compliance requirements. Dr. Jesus Emerson, 04/25/2025 12:05:42 PM Scar Dimas, Number of Addenda: 0 Note Initiated On: 04/25/2025 7:47 AM Jesus Emerson MD GI PROCEDURE ORDERABLES Edited R esult - Final PM CARDIOVASCULAR * (ABNORMAL) Protime & INR (04/10/2025 3:00 PM EDT) PROTIME 17.4(H) 9.8 - 13.2 sec 04/10/2025 4:31 PM EDT [facility] INR 1.5(H) 0.9 - 1.2 04/10/2025 4:31 PM EDT [facility] Blood Venous blood / Unknown Venipuncture / Unknown 04/10/2025 3:00 PM EDT 04/10/2025 3:00 PM EDT us Beni Gomez MD LAB BLOOD ORDERABLES Final R esult [facility] [address] [place] [address], [place] [phone] * (ABNORMAL) Comprehensive metabolic panel (04/10/2025 3:00 PM EDT) SODIUM 143 134 - 146 mmol/L 04/10/2025 4:18 PM EDT [facility] POTASSIUM 4.7 3.5 - 5.0 mmol/L 04/10/2025 4:18 PM EDT [facility] CHLORIDE 109 98 - 109 mmol/L 04/10/2025 4:18 PM EDT [facility] CARBON DIOXIDE 23 22 - 32 mmol/L 04/10/2025 4:18 PM EDT [facility] ANION GAP 11 5 - 15 mmol/L 04/10/2025 4:18 PM EDT [facility] BLOOD UREA NITROGEN 21 5 - 27 mg/dL 04/10/2025 4:18 PM EDT [facility] CREATININE 0.69 0.40 - 1.00 mg/dL 04/10/2025 4:18 PM EDT [facility] Comment:METHOD TRACEABLE TO IDMS STANDARD GLUCOSE 227(H) 65 - 99 mg/dL 04/10/2025 4:18 PM EDT [facility] CALCIUM 9.5 8.5 - 10.5 mg/dL 04/10/2025 4:18 PM EDT [facility] TOTAL PROTEIN 7.0 6.0 - 8.0 g/dL 04/10/2025 4:18 PM EDT [facility] ALBUMIN 3.6 3.2 - 5.3 g/dL 04/10/2025 4:18 PM EDT [facility] ALKALINE PHOSPHATASE 98 39 - 130 U/L 04/10/2025 4:18 PM EDT [facility] AST 21 <=41 U/L 04/10/2025 4:18 PM EDT [facility] ALT 13 <=31 U/L 04/10/2025 4:18 PM EDT [facility] BILIRUBIN,TOTAL 1.4(H) 0.3 - 1.2 mg/dL 04/10/2025 4:18 PM EDT [facility] EGFR Non-Race Dependent >90 >=60 ml/min/1.7 3sq.m 04/10/2025 4:18 PM EDT [facility] Comment: Reported eGFR is based on the CKD-EPI 2020 equation that does not use a race coefficient. Blood Venous blood / Unknown Venipuncture / Unknown 04/10/2025 3:00 PM EDT 04/10/2025 3:00 PM EDT us Beni Gomez MD LAB BLOOD ORDERABLES Final R esult [facility] [address] [place] [address], [place] [phone] from Last [address] [place] [address] MEDICARE [employer] Care Teams Sustainability Project Coordinator Relationship Specialty Start Date End Date Harry Valencia MD PCP - General Family Medicine 05/29/19
--- OUTSIDE RECORDS SUMMARY | 2025-06-10 15:28 | XMS_ITS | Encounter Summary ---
Author Organization [facility] Address [address] [place] [address] Care Team Providers Care Manager Package Name Role Phone Harry Valencia MD Primary Care Provider [phone] Encounter Details Date Type Department Care Team (Late st Contact Info) Description 03/06/2025 Orders Only [facility] [address] [place] [address] Nubia Martin MD [address] [place] [address] Social History Tobacco Use Types [...] Description 06/13/2025 8:00 AM EDT Hospital Encounter [facility] [address] [place] [address] Rogers Catalan MD [address] [place] [address] Paroxysmal atrial fibrillation (CMS/HCC) 06/13/2025 8:00 AM EDT - 06/13/2025 12:00 PM EDT Surgery [facility] [address] [place] [address] Rogers Catalan MD [address] [place] [address] Ablation a-fib paroxysmal [[id number]] 06/13/2025 8:00 AM EDT Appointment [facility] [place] [address] 10/16/2025 1:30 PM EST Follow-Up [facility] Gastroenterology [address] [place] [address] Beni Gomez MD [address] [facility] [address] [facility] [place] [address] documented as of this encounter Procedures Procedure Name Priority Date/Time Associated Diagnosis Comments CARDIAC DEVICE CHECK - REMOTE - LOOP RECORDER (ILR) Routine 03/06/2025 12:00 AM EDT documented in this encounter Results * Cardiac device check - Remote loop recorder (ILR) (03/06/2025 12:00 AM EDT) Anatomical Region Laterality Modality Other 03/06/2025 us Nubia Martin MD CV IMPLANTABLE CARDIAC DEVICE PROCEDURES Final Result documented in this encounter Visit Diagnoses Not on filedocumented in this encounter Care Teams Manager Package Relationship Specialty Start Date End Date Harry Valencia MD [address] [facility] [address] [address] PCP - General 06/20/23 documented as of this encounter
--- OUTSIDE RECORDS SUMMARY | 2025-06-10 15:28 | XMS_ITS | Clinical Summary ---
Author Organization [facility] Healthcare Address [address] [place] [address] Care Team Providers Care Surveillance Observer Name Role Phone Harry Valencia MD Primary [...] on file Insurance MEDICARE AET Care Teams Surveillance Observer Relationship Specialty Start Date End Date Harry Valencia MD [address] [place] [address] PCP - General Family Medicine 04/05/25
[2025-06-10 15:41] LABS: Hematocrit 26.0 % (36.0-48.0); Hemoglobin 7.3 g/dL (12.0-16.0); Immature Granulocytes Abs Auto 0.01 10^3/uL (0.00-0.03); Immature Granulocytes Pct Auto 0.2 % (0.0-0.5); Lymphocytes Absolute Auto 2.0 10^3/uL (1.2-3.8); Mean Corpuscular HGB Conc 28.1 g/dL (29.9-35.2); Mean Corpuscular Hemoglobin 21.9 pg (26.7-34.0); Mean Corpuscular Volume 78.1 fL (81.0-99.0); Platelet Count 204 10^3/uL (150-450); Red Blood Count 3.33 10^6/uL (4.20-5.40); White Blood Count 6.6 10^3/uL (4.0-11.0)
[2025-06-10 16:09] LABS: Anion Gap 15.4; Blood Urea Nitrogen 40.0 mg/dL (7.0-18.0); Calcium 9.5 mg/dL (8.5-10.1); Carbon Dioxide 25.7 mmol/L (21.0-32.0); Chloride 104 mmol/L (98-107); Estimated GFR (African America 48 (>=60 mL/min/1.73m^2); Estimated GFR (Non-African Ame 40 (>=60 mL/min/1.73m^2); Glucose 213 mg/dL (74-106); Potassium 5.1 mmol/L (3.5-5.1); Sodium 140 mmol/L (136-145)
== END 2025-06-10 15:21 | disposition home or self-care (01) ==
LOC: LAB 15:26
PROVIDERS: PCP Family Medicine; Visit Provider Internal Medicine Cardiovascular Disease
DX: I48.19 Other persistent atrial fibrillation (principal)
CPT/HCPCS: 36415; 80048; 85025

== ENCOUNTER 2025-07-11 12:37 | Outpatient (OUT) | payer MEDICARE, SELFPAY ==
--- OUTSIDE RECORDS SUMMARY | 2025-07-11 12:45 | XMS_ITS | CCD ---
Author Organization [facility] Care Team Providers Care [employer] Name Role Phone Soco Hernandez Unavailable CoxAshley mcgee Unavailable GAIL, DR WESLEY Consulting Unavailable CONCHITAY, DR WESLEY Primary Care Unavailable CONCHITAY, DR WESLEY Admitting Unavailable CONCHITAY, DR WESLEY Attending Unavailable CONCHITAY, DR WESLEY Consulting Unavailable GAIL, DR WESLEY Primary Care Unavailable CONCHITAY, DR WESLEY Admitting Unavailable HOY, DR WESLEY Attending Unavailable HOY, DR WESLEY Consulting Unavailable CONCHITAY, DR WESLEY Primary Care Unavailable HOY, DR WESLEY Admitting Unavailable GAIL, DR WESLEY Attending Unavailable CHE, DR LON Lemus Consulting Unavailable Maryjane Valencia Primary Care Physician Manoj DAMON Attending Unavailable Maryjane Valencia Referring Unavailable Manoj DAMON Attending Unavailable Manoj DAMON Attending Unavailable Howard Johnston DO Attending Provider Lon Del Rosario MD Attending Provider [phone] Maryjane Valencia Admitting Unavailable Maryjane Valencia Attending Unavailable Manoj Damon Admitting Unavailable Manoj Damon Attending Unavailable Howard Johnston Admitting Unavailable Howard Johnston Attending Unavailable Lon Del Rosario Admitting Unavailable Lon Del Rosario Attending Unavailable Maryjane Valencia MD Attending Provider [phone] DAMIAN GOMEZ Referring Unavailable MARYJANE VALENCIA Primary Care Unavailable MARYJANE VALENCIA Referring Unavailable MARYJANE VALENCIA Primary Care Unavailable NAWRAS, ALI T Admitting Unavailable NAWRAS ALI T Attending Unavailable MARBIN, ALI T Referring Unavailable MARYJANE VALENCIA Primary Care Unavailable JOSE G, ROGERS Referring Unavailable JOSE G, ROGERS Referring Unavailable JOSE G, ROGERS Referring Unavailable JOSE G, ROGERS Referring Unavailable JOSE G, ROGERS Referring Unavailable JOSE G, ROGERS Referring Unavailable JOSE G, ROGERS Admitting Unavailable JOSE G, ROGERS Attending Unavailable JOSE G, ROGERS Referring Unavailable JOSE G, ROGERS Admitting Unavailable JOSE G, ROGERS Attending Unavailable NAWRAS, JESUS Admitting Unavailable NAWRAS, JESUS Attending Unavailable NAWRAS, JESUS Referring Unavailable JOSE G, ROGERS Attending Unavailable LAYJESSICA Attending Unavailable NAWRAS, JESUS Referring Unavailable JOSE G, ROGERS Referring Unavailable JOSE G, ROGERS Referring Unavailable SODEMAN, DAMIAN Attending Unavailable JOSE G, ROGERS Attending Unavailable JOSE G, ROGERS Attending Unavailable NAWRAS, JESUS Referring Unavailable JOS EG, ROGERS Referring Unavailable ALEXIS, AYDIN Attending Unavailable JOSE G, ROGERS Attending Unavailable SODEMAN, DAMIAN Attending Unavailable ALEXIS, AYDIN Referring Unavailable JOSE G, ROGERS Referring Unavailable JOSE G, ROGERS Referring Unavailable Allergies Allergy Classification Reported Allergen(s) Allergy Type Date of Onset Reaction(s) Facility (3 sources) Sulfacetamide Drug Allergy 2 [facility] (1 source) Sulfonamides (Antibiotic) Drug allergy (disorder) 8 [facility] Repository (3 sources) Sulfonamides (Antibiotic); Translations: [sulfa drugs] Drug allergy [facility] (disorder) [facility] (5 sources) Sulfonamides (Antibiotic); Translations: [Sulfa (Sulfonamide Antibiotics)] Allergy to substance 9 [facility] (1 source) Sulfacetamide Drug Allergy 2 [facility] Repository Medications Current Medications Medication Drug Class(es) Dates Sig (Normalized) Sig (Original) [id number] 200 actuat albuterol 0.09 mg/actuat metered dose inhaler (1 source) beta2-Adrenergic Agonist Start: 02-16-2022 take 2 puff(s) by inhalation every four to six hours as needed Albuterol Sulfate HFA 108 (90 Base) MCG/ACT 2 puffs as needed Inhalation every 4-6 hours for 14 days Jan, Active amiodarone hydrochloride 200 mg oral tablet (2 sources) Antiarrhythmic Start: 02-12-2025 take 1 tablet by mouth once daily Amiodarone 200 mg tablet Active 200 MG PO Daily February 12, 2025 12:00am apixaban 5 mg oral tablet (4 sources) Factor Xa Inhibitor Start: 02-12-2025 take [...] Aspir-81 Active bumetanide 1 mg oral tablet (2 sources) Loop Diuretic Start: 02-13-20 take 1 tablet by mouth once daily Bumetanide 1 mg tablet Active 1 MG PO Daily February 12, 2025 12:00am dextromethorphan hydrobromide 1.5 mg/ml / pyrilamine maleate 1.5 mg/ml oral solution (1 source) Uncompetitive K-qdlqgp-A-aspartate Receptor Antagonist, Sigma-1 Agonist Start: 02-17-20 take 10 mL by mouth every eight hours [place] DM 7.5-7.5 MG/5ML 10 mL Orally every 8 hours for 5 days Jan, Active Diclofenac 75mg Tab-DR (2 sources) Start: 04-28-20 take 1 tablet by mouth twice daily Diclofenac 75mg Tab-DR 75 mg, Oral, BID, Refills(s) 0 Start Date: 04/28/20 Status: Ordered digoxin 0.25 mg oral tablet (2 sources) Cardiac Glycoside Start: 02-13-20 take 1 tablet [...] Jan, Active furosemide 20 mg oral tablet (2 sources) Loop Diuretic Start: 02-13-20 take 1 tablet by mouth once daily Furosemide 20 mg tablet Active 20 MG PO Daily February 12, 2025 12:00am magnesium oxide 400 mg oral tablet (4 sources) Start: 02-13-20 take 1 tablet by mouth once daily Magnesium Oxide 400 mg (241.3 mg magnesium) tablet Active 400 MG PO Daily February 12, 2025 12:00am Start: 09-28-2024 take 1 tablet by abelino twice daily magnesium oxide 400 mg Tab 400 mg = 1 tab(s), Oral, BID, Refills(s) 0 Start Date: 09/28/24 Status: Ordered metFORMIN hydrochloride 500 mg oral tablet (7 sources) Biguanide Start: 02-12-2025 take 1 tablet by mouth twice daily Metformin 500 mg tablet Active 500 MG PO Twice daily February 12, 2025 12:00am Start: 04-28-2020 take 2 tablets by mo [facility] twice daily metformin 500 mg Tab 1,000 mg = 2 tab(s), Oral, BID, Refills(s) 0 Start Date: 04/28/20 Status: Ordered Glucophage 500 M G Orally Not-Taking metFORMIN HCl Ac tive metoprolol tartrate 50 mg oral tablet (2 sources) beta-Adrenergic Ole Start: 09-28-2024 take 1 tablet by mouth twice daily Metoprolol tartrate 50 mg Tab 50 mg = 1 tab(s), Oral, BID, Refills(s) 0 Start Date: 09/28/24 Status: Ordered ondansetron 4 mg disintegrating oral tablet (3 sources) Serotonin-3 Receptor Antagonist Start: 02-12-2025 Ondansetron 4 mg tablet,disintegr ating Active 4 MG PO EVERY 8-12 HOURS February 12, 2025 12:00am Start: 02-16-2022 take 1 tablet by abelino every eight hours as needed Ondansetron HCl 4 MG 1 tablet Orally every 8 hours as needed for 3 days Jan, Active Ozempic (1 source) Ozempic Active pantoprazole 40 mg delayed release oral tablet (4 sources) Proton Pump Inhibitor Start: 02-12-2025 Pantoprazole 40 mg tablet,delayed release (DR/EC) Active MG PO February 12, 2025 12:00am Start: 09-28-2024 take 1 tablet by abelino once daily Pantoprazole [address] Tab 40 mg = 1 tab(s), Oral, Daily, Refills(s) 0 Start Date: 09/28/24 Status: Ordered pioglitazone 30 mg oral tablet (2 sources) Peroxisome Proliferator Receptor alpha Agonist, Peroxisome Proliferator Receptor gamma Agonist, Thiazolidinedione Actos 30 MG Orally Active ramipril 10 mg oral capsule (6 sources) Angiotensin Converting Enzyme Inhibitor Start: 02-13-20 take 1 capsule by mouth once daily Ramipril 10 mg capsule Active 10 MG PO Daily February 12, 2025 12:00am Start: 04-28-2020 take 1 capsule by mo [facility] once daily ramipril 10 mg Cap 10 mg = 1 cap(s), Oral, Daily, Refills(s) 0 Start Date: 04/28/20 Status: Ordered simvastatin 20 mg oral tablet (5 sources) HMG-CoA Reductase Inhibitor Start: 02-12-2025 take 1 tablet by mouth once daily Simvastatin 20 mg tablet Active 20 MG PO Daily February 12, 2025 12:00am Start: 04-28-2020 [facility] at [facility] simvastatin 20 mg Tab 20 mg = 1 tab(s), Oral, Once a day (at bedtime), Refills(s) 0 Start Date: 04/28/20 Status: Ordered Simvastatin Acti ve tiZANidine 4 mg oral tablet (6 sources) Central alpha-2 Adrenergic Agonist Start: 02-12-2025 take 1 tablet by mouth once daily at bedtime Tizanidine 4 mg tablet Active 4 MG PO Daily at bedtime February 12, 2025 12:00am Start: 09-28-2024 take 1 tablet by abelino every eight hours as needed for muscle spasms Zanaflex 4 mg Tab 4 mg = 1 tab(s), Oral, q8hr, PRN muscle spasm, Refills(s) 0 Start Date: 09/28/24 Status: Ordered Zanaflex 4 MG Or ally Active venlafaxine 75 mg oral tablet (6 sources) Serotonin and Norepinephrine Reuptake Inhibitor Start: 02-12-2025 take 1 tablet by mouth once daily Venlafaxine 75 mg tablet Active 75 MG PO Daily February 12, 2025 12:00am Start: 04-28-2020 take 1 capsule by [facility] once daily venlafaxine 75 mg Cap-ER 75 mg = 1 cap(s), Oral, Daily, Refills(s) 0 Start Date: 04/28/20 Status: Ordered Vitamin D-3 1000 UNIT (2 sources) Vitamin D-3 1000 UNIT Orally Active Completed/Discontinued Medications Medication Drug Class(es) Dates Sig (Normalized) Sig (Original) Acetaminophen / HYDROcodone (2 sources) Opioid Agonist Start: 07-09-2015 take 1 tablet by mouth every six hours as needed for pain [place] 5-325 MG 1 tablet Orally every 6 hrs as needed for pain Jun, Not-Taking Start: 07-09-2015 take 1 tablet by abelino th every six hours as needed for pain [place] 5-325 MG 1 tablet Orally every 6 [...] Date Documented Da te Episodic/Chronic Anxiety disorders (2 sources) Anxiety; Translations: [Anxiety disorder, unspecified] 02-12-2025 Chronic Cancer of uterus (4 sources) Endometrial carcinoma; Translations: [Malignant neoplasm of uterus] 04-28-2020 Chronic Cardiac and circulatory congenital anomalies (2 sources) Arteriovenous malformation, site unspecified; Translations: [Arteriovenous malformation, site unspecified] Onset: 05-28-2025 Chronic Cardiac dysrhythmias (8 sources) Atrial fibrillation; Translations: [Unspecified atrial fibrillation] Onset: 07-10-2024 09-28-2024 Chronic Chronic kidney disease (3 sources) Chronic kidney disease, unspecified; Translations: [Chronic kidney disease] Onset: 09-30-2022 04-28-2020 Chronic Deficiency and other anemia (2 sources) Iron deficiency anemia secondary to blood loss (chronic); Translations: [Iron deficiency anemia secondary to blood loss (chronic)] Onset: 11-08-2023 Chronic Deficiency and other anemia (1 source) Anemia, unspecified; Translations: [ANEMIA UNSPECIFIED] Onset: 09-30-2022 Episodic Deficiency and other anemia (1 source) Deficiency and other anemia Onset: 04-25-2025 Diabetes mellitus with complications (4 sources) Type 2 diabetes mellitus with hyperglycemia; Translations: [TYPE 2 DM W/HYPERGLYCEMIA] Onset: 09-24-2022 Chronic Diabetes mellitus without complication (4 sources) Diabetes mellitus; Translations: [Type 2 diabetes mellitus without complications] 04-28-2020 Chronic Disorders of lipid metabolism (6 sources) Pure hypercholesterolemia , unspecified; Translations: [Hyperlipidemia, unspecified] Onset: 09-30-2022 09-28-2024 Chronic Diverticulosis and diverticulitis (2 sources) Diverticular disease 04-28-2020 Chronic Essential hypertension (5 sources) Essential (primary) hypertension; Translations: [Benign essential hypertension] Onset: 09-30-2022 04-28-2020 Chronic Gastrointestinal hemorrhage (6 sources) Melena; Translations: [Melena] Onset: 10-03-2024 Episodic Heart valve disorders (2 sources) Mitral and aortic incompetence 09-28-2024 Chronic Nutritional deficiencies (1 source) Vitamin D deficiency, unspecified; Translations: [VITAMIN D DEFICIENCY UNSPECIFIED] Onset: 09-30-2022 Chronic Open wounds of extremities (2 sources) Laceration without foreign body, left lower leg, initial encounter; Translations: [Open wound of knee, leg [except thigh], and ankle, without mention of complication] 02-12-2025 Episodic Other and ill-defined heart disease (2 sources) [...] Translations: [Other ascites] Onset: 01-23-2025 Episodic Other gastrointestinal disorders (2 sources) Angiodysplasia of colon without hemorrhage; Translations: [Angiodysplasia of colon without hemorrhage] Onset: 05-28-2025 Episodic Other liver diseases (3 sources) Unspecified cirrhosis of liver; Translations: [Unspecified cirrhosis of liver] Onset: 01-23-2025 Chronic Other nutritional; endocrine; and metabolic disorders (2 sources) Body mass index 30+ - obesity 10-03-2024 Chronic Other nutritional; endocrine; and metabolic disorders (2 sources) Obese class III 09-28-2024 Chronic Saira-; endo-; and myocarditis; cardiomyopathy (except that caused by tuberculosis or sexually transmitted disease) (2 sources) Heart valve disorder Onset: 04-19-2024 09-28-2024 Chronic Pulmonary heart disease (2 sources) Pulmonary hypertension, unspecified; Translations: [Pulmonary hypertension, unspecified] Onset: 01-23-2025 Chronic Residual codes; unclassified (2 sources) Requires vaccination 04-28-2020 Episodic Residual codes; unclassified (2 sources) Other specified postprocedural states; Translations: [Other specified postprocedural states] Onset: 05-28-2025 Episodic Spondylosis; intervertebral disc disorders; other back problems (2 sources) 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 Chronic Unclassified (2 sources) Other persistent atrial fibrillation; Translations: [Other persistent atrial fibrillation] Onset: 06-13-2025 Unclassified (1 source) Personal history of colon polyps, unspecified; Translations: [Personal history of colon polyps, unspecified] Onset: 05-28-2025 Past or Other Problems Problem Classification Problem Date Documented Da te Episodic/Chronic Cardiac dysrhythmias (2 sources) Palpitations; Translations: [Palpitations] Onset: 10-22-2024 Episodic Deficiency and other anemia (3 sources) Anemia; [...] MALIG NEOPLASM OF BREAST] Onset: 10-21-2021 Episodic Unclassified (1 source) Personal history of colon polyps, unspecified; Translations: [Personal history of colon polyps, unspecified] Onset: 05-28-2025 Results Test Name Value Interpretation Reference Range Facility Telephoneon 06-28-2025 Telephone [id number] Connie Brian 1955 F Date Provider Department Center 06/28/2025 Juan-IZABELA OSMAN [facility] Family History Problem Relation Age of Onset No Known Problems Mother Diabetes Father No Known Problems Sister Heart disease Brother Family Status - Relation Status Age at Mother Father Sister Alive Brother Reason for Visit and Comments: f/u post ablation [Other] Normal [facility] 36on 06-17-2025 36 Patient contacted regarding normal VCE results. No indications for reason for anemia. Partner asked why she continues to be anemic. Advised that there is no GI reason for anemia and to consult with PCP for possible Hematology referral for further evaluation. Expressed inderstanding [facility] 30on 06-15-2025 30 The patient is Moderately Stable - Low risk of patient condition declining or worsening The patient's goals for the shift include Comfort and rest The clinical goals for the shift include VSS and safety [facility] 30 The patient is Moderately Stable - Low risk of patient condition declining or worsening The patient's goals for the shift include rest, comfort The clinical goals for the shift include VSS, safety, rest, comfort Over the shift, the patient did not make progress toward the following goals. Barriers to progression include monitoring for dizziness. Recommendations to address these barriers include making changes to the treatment plan as needed. Problem: Pain - Adult Goal: Verbalizes/displays adequate comfort level or baseline comfort level Outcome: Progressing Flowsheets (Taken 06/15/2025 0218) Verbalizes/displays adequate comfort level or baseline comfort level: Encourage patient to monitor pain and request assistance Assess pain using appropriate pain scale Implement non-pharmacological measures as appropriate and evaluate response Administer analgesics based on type and severity of pain and evaluate response Consider cultural and social influences on pain and pain management Notify Licensed Independent Practitioner if interventions unsuccessful or patient reports new pain Problem: Safety - Adult Goal: Free from fall injury Outcome: Progressing Flowsheets (Taken 06/15/2025217) Free from fall injury: Assess patient frequently for physical needs Identify cognitive and physical deficits and behaviors that affect risk of falls [place] fall precautions as indicated by assessment Educate patient/family on patient safety, including physical limitations Instruct patient to call for assistance with activity based on assessment Modify environment to reduce risk of injury Consider OT/PT consult to assist with strengthening/mobility Problem: Discharge Planning Goal: Discharge to home or other facility with appropriate resources Outcome: Progressing Flowsheets (Taken 06/15/2025217) Discharge to home or other facility with appropriate resources: Identify barriers to discharge with patient and caregiver Arrange for needed discharge resources and transportation as appropriate Identify discharge learning needs (meds, wound care, etc) Problem: Chronic Conditions and Co-morbidities Goal: Patient's chronic conditions and co-morbidity symptoms are monitored and maintained or improved Outcome: Progressing Flowsheets (Taken 06/15/2025217) Care Plan - Patient's Chronic Conditions and Co-Morbidity Symptoms are Monitored and Maintained or Improved: Monitor and assess patient's chronic conditions and comorbid symptoms for stability, deterioration, or improvement Collaborate with multidisciplinary team to address chronic and comorbid conditions and prevent exacerbation or deterioration Update acute care plan with appropriate goals if chronic or comorbid symptoms are exacerbated and prevent overall improvement and discharge Normal [facility] DSon 06-15-2025 DS Admission Admitted 06/13/2025 for Paroxysmal atrial fibrillation (CM* Discharge Diagnosis Atrial fibrillation (CMS/HCC) Discharge Disposition Home or Self Care (01) Discharge Medications Your medication list CHANGE how you take these medications Instructions Last Dose Given Next Dose Due spironolactone 50 mg tablet Commonly known as: Aldactone What changed: Another medication with the same name was removed. Continue taking this medication, and follow the directions you see here. Take 1 tablet (50 mg) by mouth in the morning. CONTINUE taking these medications Instructions Last Dose Given Next Dose Due amiodarone 200 mg tablet Commonly known as: Pacerone Start taking on: December 18, 2024 Take 2 tablets (400 mg) by mouth two times daily for 14 days, THEN 1 tablet (200 mg) in the morning. diclofenac 75 mg EC tablet Commonly known as: Voltaren Eliquis 5 mg tablet Generic drug: apixaban furosemide 20 mg tablet Commonly known as: Lasix Take 2 tablets (40 mg) by mouth in the morning. magnesium oxide 400 mg (241.3 mg magnesium) tablet Commonly known as: Mag-Ox Take 1 tablet (400 mg) by mouth two times daily. metFORMIN 500 mg tablet Commonly known as: Glucophage ondansetron ODT 4 mg disintegrating tablet Commonly known as: Zofran-ODT pantoprazole 40 mg EC tablet Commonly known as: ProtoNix ramipril 10 mg capsule Commonly known as: Altace simvastatin 20 mg tablet Commonly known as: Zocor sucralfate 1 gram tablet Commonly known as: Carafate venlafaxine XR 75 mg 24 hr capsule Commonly known as: Effexor-XR STOP taking these medications metoprolol succinate XL 25 mg 24 hr tablet Commonly known as: Toprol-XL metoprolol tartrate 100 mg tablet Commonly known as: Lopressor Where to Get Your Medications These medications were sent to [id number] [address] [place] [phone] furosemide 20 mg tablet magnesium oxide 400 mg (241.3 mg magnesium) tablet Activity ACTIVITY: , Unless otherwise instructed you may: , ??? Resume normal activity in two days, including driving, letting pain be your guide. , ??? Limit lifting over 10 pounds for one week or until wound heals. , NORMAL OBSERVATIONS: , ??? Soreness or tenderness that may last one week. , ??? Mild oozing from incision site. , ??? A certain amount of bruising is normal and could last up to two weeks. , ??? Formation of a small lump (dime to quarter size) which may last up to six weeks. ??? You may shower 24 hours after the procedure. Remove the bandage from the hospital before showering. , ??? Gently clean site using soap and water while standing in the shower. Dry thoroughly. , ??? Cleaning the site with soap and water is sufficient. Do not apply antibiotic ointments, powders or lotions. , ??? Cover the site after 24 hours with a square adhesive Band-Aid that seals and covers the area well. , ??? Keep the site clean and dry to prevent infection. If the bandage becomes wet, remove that one and put on a new one. , ??? Do not sit in a bathtub, pool, or hot tub for seven days or until wound has healed. , ??? Inspect the site daily. Diet Continue on the same type of diet and foods as you were eating before your admission. Drink plenty of water. 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 Recent hospitalization for anemia and dark stools in February. Patient was seen in the GI clinic on 04/10/2025, and recommendation was for EGD with push enteroscopy. This was done 04/24/[address] Zazueta and showed normal examined duodenum with a few non-bleeding angioectasias in the jejunum. She underwent successful pulmonary vein isolation on 06/13/2025 using pulsed field ablation (PFA), with confirmation of complete vein isolation, CTI ablation with bidirectional block, and no inducible arrhythmias on EP study. Post-procedure labs revealed a hemoglobin of 5.7, for which she received 1 unit of PRBC; repeat labs showed improvement to 7.2. She is ambulating without symptoms of exertional dyspnea, lightheadedness, dizziness, or syncope. Access sites are intact without hematoma, bruit, or signs of pseudoaneurysm. Patient denies pain or tenderness, and +2 distal pulses are present. Update 06-15-2025 Patient seen and examined this morning. She is resting in bed, states she slept very well. Satting 98% on RA. Denies chest pain, shortness of breath, dizziness, edema. Per nursing staff she was dizzy and lethargic ye (more content not included)... Normal [facility] DS Delete, note made in error Normal [facility] POCT GLUCOSE METER UNSOLICIT ED RESULTSon 06-15-2025 Glucose [Mass/Vol] 262 mg/dL High 70-105 [facility] Comment on above: Order Comment: Waive d Testing in the ED is performed under the ED CLIA certificate #[id number]. Result Comment: clar com Performed By: #### L [id number] #### [facility] [address] [place] [address] Glucose [Mass/Vol] 259 mg/dL High 70-105 [facility] Comment on above: Order Comment: Waive d Testing in the ED is performed under the ED CLIA certificate #[id number]. Result Comment: clar com Performed By: #### L [id number] #### [facility] [address] [place] [address] Glucose [Mass/Vol] 237 mg/dL High 70-105 [facility] Comment on above: Order Comment: Waive d Testing in the ED is performed under the ED CLIA certificate #[id number]. Result Comment: cfet ter3 Performed By: #### L [id number] #### [facility] [address] [place] [address] 30on 06-14-2025 30 The patient is Moderately Stable - Low risk of patient condition declining or worsening The patient's goals for the shift include Comfort and rest The clinical goals for the shift include VSS and safety Normal [facility] BILIRUBIN, DIRECTon 06-14-20 25 Magnesium [Mass/Vol] 0.1 mg/dL Normal 0-0.2 [facility] Comment on above: Performed By: #### L [id number] #### [facility] ([facility]) [address] [place] [address] BILIRUBIN, TOTALon 5 Bilirubin [Mass/Vol] 0.9 mg/dL Normal 0.3-1.0 [facility] Comment on above: Performed By: #### L [id number] #### [facility] ([facility]) [address] [place] [address] CBCon 06-14-2025 Erythrocyte distribution width (RBC) [Ratio] 16.5 % High 11.5-15.0 [facility] Comment on above: Performed By: #### L [id number] #### [facility] ([facility]) [address] [place] [address] ERYTHROCYTE MEAN CORPUSCULAR HEMOGLOBIN CONCENTRATION (G/DL) BY AUTOMATED 30.4 g/dL Low 32.0-35.0 [facility] Comment on above: Performed By: #### L [id number] #### [facility] ([facility]) [address] [place] [address] Hematocrit (Bld) [Volume fraction] 24.0 % Low 36.0-45.0 [facility] Comment on above: Performed By: #### L [id number] #### [facility] ([facility]) [address] [place] [address] Hemoglobin (Bld) [Mass/Vol] 7.3 g/dL Low 12.0-15.0 [facility] Comment on above: Performed By: #### L [id number] #### [facility] ([facility]) [address] [place] [address] MCH (RBC) [Entitic mass] 23.2 pg Low 27.0-33.0 [facility] Comment on above: Performed By: #### L [id number] #### [facility] ([facility]) [address] [place] [address] MCV (RBC) [Entitic vol] 76.2 fL Low 82.0-98.0 [facility] Comment on above: Performed By: #### L [id number] #### [facility] ([facility]) [address] [place] [address] PLATELETS (10*3/UL) IN BLOOD AUTOMATED COUNT 176 10*3/uL Normal 150-400 [facility] Comment on above: Performed By: #### L [id number] #### [facility] ([facility]) [address] [place] [address] RBC (Bld) [#/Vol] 3.15 10*6/uL Low 3.80-5.00 [facility] Comment on above: Performed By: #### L [id number] #### [facility] ([facility]) [address] [place] [address] WBC (Bld) [#/Vol] 7.00 10*3/uL Normal 4.00-10.60 [facility] Comment on above: Performed By: #### L [id number] #### [facility] ([facility]) [address] [place] [address] DSon 06-14-2025 DS Admission Admitted 06/13/2025 for Paroxysmal atrial fibrillation (CM* Discharge Diagnosis Atrial fibrillation (CMS/HCC) Discharge Disposition Home or Self Care () Discharge Medications Your medication list CHANGE how you take these medications Instructions Last Dose Given Next Dose Due spironolactone 50 mg tablet Commonly known as: Aldactone What changed: Another medication with the same name was removed. Continue taking this medication, and follow the directions you see here. Take 1 tablet (50 mg) by mouth in the morning. CONTINUE taking these medications Instructions Last Dose Given Next Dose Due amiodarone 200 mg tablet Commonly known as: Pacerone Start taking on: December 18, 2024 Take 2 tablets (400 mg) by mouth two times daily for 14 days, THEN 1 tablet (200 mg) in the morning. diclofenac 75 mg EC tablet Commonly known as: Voltaren Eliquis 5 mg tablet Generic drug: apixaban furosemide 20 mg tablet Commonly known as: Lasix Take 2 tablets (40 mg) by mouth in the morning. magnesium oxide 400 mg (241.3 mg magnesium) tablet Commonly known as: Mag-Ox Take 1 tablet (400 mg) by mouth two times daily. metFORMIN 500 mg tablet Commonly known as: Glucophage ondansetron ODT 4 mg disintegrating tablet Commonly known as: Zofran-ODT pantoprazole 40 mg EC tablet Commonly known as: ProtoNix ramipril 10 mg capsule Commonly known as: Altace simvastatin 20 mg tablet Commonly known as: Zocor sucralfate 1 gram tablet Commonly known as: Carafate venlafaxine XR 75 mg 24 hr capsule Commonly known as: Effexor-XR STOP taking these medications metoprolol succinate XL 25 mg 24 hr tablet Commonly known as: Toprol-XL metoprolol tartrate 100 mg tablet Commonly known as: Lopressor Where to Get Your Medications These medications were sent to [id number] - [place], [place] - [address] [facility] AT [address] [address] furosemide 20 mg tablet magnesium oxide 400 mg (241.3 mg magnesium) tablet Activity ACTIVITY: , Unless otherwise instructed you may: , ??? Resume normal activity in two days, including driving, letting pain be your guide. , ??? Limit lifting over 10 pounds for one week or until wound heals. , NORMAL OBSERVATIONS: , ??? Soreness or tenderness that may last one week. , ??? Mild oozing from incision site. , ??? A certain amount of bruising is normal and could last up to two weeks. , ??? Formation of a small lump (dime to quarter size) which may last up to six weeks. ??? You may shower 24 hours after the procedure. Remove the bandage from the hospital before showering. , ??? Gently clean site using soap and water while standing in the shower. Dry thoroughly. , ??? Cleaning the site with soap and water is sufficient. Do not apply antibiotic ointments, powders or lotions. , ??? Cover the site after 24 hours with a square adhesive Band-Aid that seals and covers the area well. , ??? Keep the site clean and dry to prevent infection. If the bandage becomes wet, remove that one and put on a new one. , ??? Do not sit in a bathtub, pool, or hot tub for seven days or until wound has healed. , ??? Inspect the site daily. Diet Continue on the same type of diet and foods as you were eating before your admission. Drink plenty of water. 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 Recent hospitalization for anemia and dark stools in February. Patient was seen in the GI clinic on 04/10/2025, and recommendation was for EGD with push enteroscopy. This was done 04/24/[address] Zazueta and showed normal examined duodenum with a few non-bleeding angioectasias in the jejunum. She underwent successful pulmonary vein isolation on 06/13/2025 using pulsed field ablation (PFA), with confirmation of complete vein isolation, CTI ablation with bidirectional block, and no inducible arrhythmias on EP study. Post-procedure labs revealed a hemoglobin of 5.7, for which she received 1 unit of PRBC; repeat labs showed improvement to 7.2. She is ambulating without symptoms of exertional dyspnea, lightheadedness, dizziness, or syncope. Access sites are intact without hematoma, bruit, or signs of pseudoaneurysm. Patient denies pain or tenderness, and +2 distal pulses are present. Plan: -Stable for discharge - cardiology follow-up appointment scheduled 07/11/2025 -Recommend follow-up appointment with GI next appointment scheduled for 10/16/2025, instructed pt to see GI provider sooner. Pertinent Physical Exam (more content not included)... Normal [facility] HEMOGLOBIN AND HEMATOCRIT, B ELMOODon 06-14-2025 Hematocrit (Bld) [Volume fraction] 23.5 % Low 36.0-45.0 [facility] Comment on above: Performed By: #### L [id number] #### [facility] ([facility]) [address] [place] [address] Hemoglobin (Bld) [Mass/Vol] 7.2 g/dL Low 12.0-15.0 [facility] Comment on above: Performed By: #### L [id number] #### [facility] ([facility]) [address] [place] [address] LACTATE DEHYDROGENASEon 05-22 LACTATE DEHYDROGENASE (U/L) IN SER/PLAS BY LAC->PYR RXN 267 U/L Normal 140-271 [facility] Comment on above: Performed By: #### L [id number] #### [facility] ([facility]) [address] [place] [address] NURSNOTEon 06-14-2025 NURSNOTE The following events where communicated with provider Kati Esteban CNP and Yuri Liang CNP at these specific times. 1542: Hi ... sorry to bug you guys so much today. But I just came in to discharge patient and she is starting to complain of dizziness and being light headed. I am getting her hooked back up to monitor now to get a full set of vitals but did get a BP and is 113/40 (61) 1544: she was doing great and walking around ready to go packing her stuff.. not sure what is going on. Came on all of the sudden 1546: Her diastolic is just really low. repeat is 119/39 (62) and HR is 59 1618: pt is still feeling light headed and woozy . She is now complaining on migraine. her pressures are still the same, I don't think patient is comfortable leaving to be honest. My best idea is maybe repeating an H&H and seeing if it is still the same/improving and that could make patient feel more comfortable for discharge? 1715: took patients blood sugar. She is 435. No ACHS or insulin orders are in Kati Esteban CNP called around 1600 and told me to let her know in about 15 minutes how patient is feeling and we will let me know what we decide to do about discharge. No response was ever given after the message sent with update about patients condition at 1618. Using nursing judgement it was decided that the next step was to see what blood sugar was due to symptoms. Blood sugar resulted to be 435. At 1717 Yuri Liang CNP responded Nurys, this we be network pricing consultant fellow taking over. Let me see who it is. Normal [facility] POCT GLUCOSE METER UNSOLICIT ED RESULTSon 06-14-2025 Glucose [Mass/Vol] 283 mg/dL High 70-105 [facility] Comment on above: Order Comment: Waive d Testing in the ED is performed under the ED CLIA certificate #[id number]. Result Comment: [email or web address] Performed By: #### L [id number] ####[facility] ([facility])[address] [place] [address] Glucose [Mass/Vol] 400 mg/dL High 70-105 [facility] Comment on above: Order Comment: Waive d Testing in the ED is performed under the ED CLIA certificate #[id number]. Result Comment: [email or web address] Performed By: #### L [id number] #### [facility] ([facility]) [address] [place] [address] Glucose [Mass/Vol] 435 mg/dL High 70-105 [facility] Comment on above: Order Comment: Waive d Testing in the ED is performed under the ED CLIA certificate #[id number]. Result Comment: clar com Performed By: #### L [id number] #### [facility] ([facility]) [address] [place] [address] 30on 06-13-2025 30 The patient is Moderately Stable - Low risk of patient condition declining or worsening The patient's goals for the shift include comfort, rest The clinical goals for the shift include VSS, no bleeding, rest Over the shift, the patient did not make progress toward the following goals. Barriers to progression include a fib ablation checks. Recommendations to address these barriers include making changes to the treatment plan as needed. Problem: Pain - Adult Goal: Verbalizes/displays adequate comfort level or baseline comfort level Outcome: Progressing Flowsheets (Taken 06/13/20252027) Verbalizes/displays adequate comfort level or baseline comfort level: Encourage patient to monitor pain and request assistance Assess pain using appropriate pain scale Administer analgesics based on type and severity of pain and evaluate response Implement non-pharmacological measures as appropriate and evaluate response Consider cultural and social influences on pain and pain management Notify Licensed Independent Practitioner if interventions unsuccessful or patient reports new pain Problem: Safety - Adult Goal: Free from fall injury Outcome: Progressing Flowsheets (Taken 06/13/20252027) Free from fall injury: Assess patient frequently for physical needs Identify cognitive and physical deficits and behaviors that affect risk of falls [place] fall precautions as indicated by assessment Educate patient/family on patient safety, including physical limitations Instruct patient to call for assistance with activity based on assessment Modify environment to reduce risk of injury Consider OT/PT consult to assist with strengthening/mobility Problem: Discharge Planning Goal: Discharge to home or other facility with appropriate resources Outcome: Progressing Flowsheets (Taken 06/13/20252027) Discharge to home or other facility with appropriate resources: Identify barriers to discharge with patient and caregiver Arrange for needed discharge resources and transportation as appropriate Identify discharge learning needs (meds, wound care, etc) Problem: Chronic Conditions and Co-morbidities Goal: Patient's chronic conditions and co-morbidity symptoms are monitored and maintained or improved Outcome: Progressing Flowsheets (Taken 06/13/20252027) Care Plan - Patient's Chronic Conditions and Co-Morbidity Symptoms are Monitored and Maintained or Improved: Monitor and assess patient's chronic conditions and comorbid symptoms for stability, deterioration, or improvement Collaborate with multidisciplinary team to address chronic and comorbid conditions and prevent exacerbation or deterioration Update acute care plan with appropriate goals if chronic or comorbid symptoms are exacerbated and prevent overall improvement and discharge Normal [facility] 30 The patient is Moderately Stable - Low risk of patient condition declining or worsening The patient's goals for the shift include comfort The clinical goals for the shift include vs wnl, no bleeding from site, pain control Over the shift, the patient did make progress toward the following goals. Problem: Pain - Adult Goal: Verbalizes/displays adequate comfort level or baseline comfort level Outcome: Progressing Problem: Safety - Adult Goal: Free from fall injury Outcome: Progressing Problem: Discharge Planning Goal: Discharge to home or other facility with appropriate resources Outcome: Progressing Problem: Chronic Conditions and Co-morbidities Goal: Patient's chronic conditions and co-morbidity symptoms are monitored and maintained or improved Outcome: Progressing Normal [facility] 36on 06-13-2025 36 Emeka from [facility] called to report a critical lab for patient. Lab was reported to our RN MIA who will contact patient. Normal [facility] ANTI C3 DATon 06-13-2025 ANTI C3 ERICKA Negative Normal [facility] Comment on above: Performed By: #### L [id number] #### [facility] ([facility]) [address] [place] [address] ANTI IGG DATon 06-13-2025 ANTI IGG ERICKA Negative Normal [facility] Comment on above: Performed By: #### L [id number] #### [facility] , ANTIBODY IDENTIFICATIONon ANTIBODY IDENTIFICATION K [facility] Comment on above: Performed By: #### L [id number] #### [facility] , Anesthesiaon 06-13-2025 Anesthesia [id number] Connie Brian 1955 F Date Provider Department [place] 06/13/2025 [facility] [place] [facility] Family History Problem Relation Age of Onset No Known Problems Mother Diabetes Father No Known Problems Sister Heart disease Brother Family Status - Relation Status Age at Mother Father Sister Alive Brother Normal [facility] BILIRUBIN, DIRECTon 06-13-20 25 Magnesium [Mass/Vol] 0.1 mg/dL Normal 0-0.2 [facility] Comment on above: Performed By: #### L [id number] #### [facility] ([facility]) [address] [place] [address] BILIRUBIN, TOTALon 5 Bilirubin [Mass/Vol] 0.5 mg/dL Normal 0.3-1.0 [facility] Comment on above: Performed By: #### L [id number] #### [facility] ([facility]) [address] [place] [address] CBCon 06-13-2025 Erythrocyte distribution width (RBC) [Ratio] 16.4 % High 11.5-15.0 [facility] Comment on above: Performed By: #### L [id number] #### [facility] ([facility]) [address] [place] [address] ERYTHROCYTE MEAN CORPUSCULAR HEMOGLOBIN CONCENTRATION (G/DL) BY AUTOMATED 29.6 g/dL Low 32.0-35.0 [facility] Comment on above: Performed By: #### L [id number] #### [facility] ([facility]) [address] [place] [address] Hematocrit (Bld) [Volume fraction] 22.6 % Low 36.0-45.0 [facility] Comment on above: Performed By: #### L [id number] #### [facility] ([facility]) [address] [place] [address] Hemoglobin (Bld) [Mass/Vol] 6.7 g/dL Low 12.0-15.0 [facility] Comment on above: Performed By: #### L [id number] #### [facility] ([facility]) [address] [place] [address] MCH (RBC) [Entitic mass] 22.6 pg Low 27.0-33.0 [facility] Comment on above: Performed By: #### L [id number] #### [facility] ([facility]) [address] [place] [address] MCV (RBC) [Entitic vol] 76.1 fL Low 82.0-98.0 [facility] Comment on above: Performed By: #### L [id number] #### [facility] ([facility]) [address] [place] [address] PLATELETS (10*3/UL) IN BLOOD AUTOMATED COUNT 167 10*3/uL Normal 150-400 [facility] Comment on above: Performed By: #### L [id number] #### [facility] ([facility]) [address] [place] [address] RBC (Bld) [#/Vol] 2.97 10*6/uL Low 3.80-5.00 [facility] Comment on above: Performed By: #### L [id number] #### [facility] ([facility]) [address] [place] [address] WBC (Bld) [#/Vol] 4.65 10*3/uL Normal 4.00-10.60 [facility] Comment on above: Performed By: #### L [id number] #### [facility] ([facility]) [address] [place] [address] HEMOGLOBINon 06-13-2025 Hemoglobin (Bld) [Mass/Vol] 6.6 g/dL Low 12.0-15.0 [facility] Comment on above: Performed By: #### L [id number] #### [facility] ([facility]) [address] [place] [address] Hemoglobin (Bld) [Mass/Vol] 5.7 g/dL Invalid Interpretation Code 12.0-15.0 [facility] Comment on above: Performed By: #### L [id number] #### [facility] ([facility]) [address] [place] [address] Hemoglobin (Bld) [Mass/Vol] 7.7 g/dL Low 12.0-15.0 [facility] Comment on above: Order Comment: Edson mc preprocedure Performed By: #### L [id number] ####[facility] ([facility])[address] [place] [address] HIGH SENSITIVITY TROPONIN Io n 06-13-2025 HS TROPONIN I (NG/L) 153 ng/L Critically high <15 [facility] Comment on above: Performed By: #### L [id number] #### [facility] ([facility]) [address] [place] [address] HPon 06-13-2025 [facility] Electrophysiology Consult Note [facility] Clinic Reason for visit: Afib 06/13/25 Pt here for ablation. In SR. Holding well with no bleeding with AC. Hb is stable. 04/23/2025 Patient is here today for H & P and consent for ablation. Patient states she feels pretty good, some days she states she feels whipped and [...] 02/26/25 Patient here for follow up from [facility]. Patient had fluid taken off and aslo had blood transfusions. Patient states she had an at [facility]. EGD showed 3 bleeding ulcers. Patient has [...] doing well and occasionally feels palpitations. HPI: Connie Brian is a 69 y.o. year old with past medical history of Hypertension, diabetes, dyslipidemia, palpitations. She was recently seen at the [facility] for A-fib RVR as she was admitted for diarrhea and palpitations. She was found to have C. difficile and was treated with antibiotics and converted to sinus rhythm on her own. She states she normally would get palpitations when she drinks caffeine and typically avoids caffeine, the day of her admission she believes she was given caffeinated coffee at [facility] and then began experience palpitations [...] show any evidence of reversible ischemia. below [id number] at least 4 for age, gender, hypertension, [...] Past Medical History: Diagnosis Date Abnormal ECG Afib (CMS/HCC) Anemia Anxiety Arrhythmia loop recorder Atrial fibrillation (CMS/HCC) AVM (arteriovenous malformation) of colon C. difficile colitis Cancer (CMS/HCC) uterine cancer 2012 Depression Diabetes mellitus (CMS/HCC) GI (gastrointestinal bleed) History of transfusion 03/2025 Hyperlipidemia Hypertension Liver disease Cirrhosis PSH: Past Surgical History: Procedure Laterality Date APPENDECTOMY CHOLECYSTECTOMY COLONOSCOPY HERNIA REPAIR HYSTERECTOMY 2012 total ROTATOR CUFF REPAIR Left SHOULDER SURGERY TONSILLECTOMY TONSILLECTOMY UPPER GASTROINTESTINAL ENDOSCOPY SH: Social Drivers of Health Tobacco Use: Low Risk (06/13/2025) Patient History Smoking Tobacco Use: Never Smokeless Tobacco Use: Never Passive Exposure: Not on file Alcohol Use: Not on file Financial Resource Strain: Not on file Food Insecurity: Not on file Transportation Needs: Not on file Physical Activity: Not on file Stress: Not on file Social Connections: Not on file Intimate Partner Violence: Unknown (01/12/2024) [place] Safety & Environment Fear of Current or Ex-Partner: Not on file (more content not included)... Normal [facility] LACTATE DEHYDROGENASEon 05-22 LACTATE DEHYDROGENASE (U/L) IN SER/PLAS BY LAC->PYR RXN 137 U/L Low 140-271 [facility] Comment on above: Performed By: #### L [id number] ####[facility] ([facility])[address] [place] [address] NURSNOTEon 06-13-2025 ELHAM RN received verbal sign out from Dr. Alix Shah [facility] ELHAM RN notified Dr. Seng shultz of patient's repeat hemoglobin drawn in pacu resulted at 6.7 No orders received at this time. Normal [facility] ADELENOTRandolph Pt. weighed, used CH G, and changed into gown. Dr. Thomson aware of 316 BG-5 units Humalog ordered. Obtaining PIV access and labs. ECG to be completed as of yet as well. Normal [facility] POCT GLUCOSE METER UNSOLICIT ED RESULTSon 06-13-2025 Glucose [Mass/Vol] 263 mg/dL High 70-105 [facility] Comment on above: Order Comment: Waive d Testing in the ED is performed under the ED CLIA certificate #[id number]. Result Comment: [email or web address] Performed By: #### L [id number] #### [facility] ([employer]) [address] [place] [address] Glucose [Mass/Vol] 175 mg/dL High 70-105 [facility] Comment on above: Order Comment: Waive d Testing in the ED is performed under the ED CLIA certificate #[id number]. Result Comment: [email or web address] to Performed By: #### L [id number] #### [facility] ([employer]) [address] [place] [address] Glucose [Mass/Vol] 316 mg/dL High 70-105 [facility] Comment on above: Order Comment: Waive d Testing in the ED is performed under the ED CLIA certificate #[id number]. Result Comment: [email or web address] Performed By: #### L [id number] ####[facility] ([facility])[address] [place] [address] PROTIME-INRon 06-13-2025 INR IN PPP BY COAGULATION ASSAY 1.20 High 0.90-1.10 [facility] Comment on above: Result Comment: ACCC P RECOMMENDED INR FOR WARFARIN THERAPY CONDITION INR PROPHYLAXIS OF VENOUS THROMBOSIS 2-3 (HIGH-RISK SURGERY) TREATMENT OF VENOUS THROMBOSIS 2-3 TREATMENT OF PULMONARY EMBOLISM 2-3 PREVENTION OF SYSTEMIC EMBOLISM: 2-3 ACUTE MYOCARDIAL INFARCTION TISSUE HEART VALVES VALVULAR HEART DISEASE ATRIAL FIBRILLATION RECURRENT SYSTEMIC EMBOLISM MECHANICAL HEART VALVE 2.5-3.5 FROM: ORAL ANTICOAGULANTS. MECHANISM OF ACTION, CLINICAL EFFECTIVENESS, AND OPTIMAL THERAPEUTIC RANGE. CHEST 1995;108:231S-246S. Performed By: #### L [id number] #### [facility] (BEAKER) [address] [place] [address] PROTHROMBIN TIME (PT) IN PPP BY COAGULATION ASSAY 15.2 Seconds High 12.3-14.8 [facility] Comment on above: Performed By: #### L AB320 #### [facility] (BEAKER) [address] [place] [address] TYPE AND SCREENon 06-13-2025 AB SCREEN Positive Normal [facility] Comment on above: Performed By: #### L [id number] #### [facility] , ABO group Nom (Bld) O Normal [facility] Comment on above: Performed By: #### L AB276 #### [facility] , RH TYPE IN BLOOD Positive Normal [facility] Comment on above: Performed By: #### L AB276 #### [facility] , Orders Onlyon 06-11-2025 Orders Only [id number] Connie Brian 1955 F Date Provider Department Center 06/11/2025 2004-STEFANO MENENDEZ [facility] [place] [facility] Family History Problem Relation Age of Onset No Known Problems Mother Diabetes Father No Known Problems Sister Heart disease Brother Family Status - Relation Status Age at Mother Father Sister Alive Brother Normal [facility] Prep for Procedureon 025 Prep for Procedure [id number] Connie Brian 1955 F Date Provider Department Center 06/06/20251986-IZABELA OSMAN [facility] [place] [facility] Family History Problem Relation Age of Onset No Known Problems Mother Diabetes Father No Known Problems Sister Heart disease Brother Family Status - Relation Status Age at Mother Father Sister Alive Brother Normal [facility] Procedure Visiton 05-28-2025 Procedure Visit [id number] Connie Brian 1955 Provider Department Center 05/28/2025 JESSICA EVANS MP [facility] Family History Problem Relation Age of Onset No Known Problems Mother Diabetes Father No Known Problems Sister Heart disease Brother Family Status - Relation Status Age at Mother Father Sister Alive Brother Level of Service:79504 AL OFFICE/OUTPT VISIT,PROCEDURE ONLY Normal [facility] Prep for Procedureon 025 Prep for Procedure [id number] Connie Brian 1955 Provider Department Center 04/30/2025 IZABELA JOSE [facility] [place] [facility] Family History Problem Relation Age of Onset No Known Problems Mother Diabetes Father No Known Problems Sister Heart disease Brother Family Status - Relation Status Age at Mother Father Sister Alive Brother Normal [facility] BEDSIDE GLUCOSEon 04-25-2025 Glucose [Mass/Vol] 213 mg/dL High 65-99 [facility] Comment on above: Performed By: #### C , 2156-6, FEPR, 2324-2, TSHR, PINR, 2276-4, 6771-0, 2064-4, 2465-3, 1834-1, 80900-3, 5130-0, AHP #### [facility] ([id number]) [address], [address] [place] [address] Glucose [Mass/Vol] 231 mg/dL High 65-99 [facility] Comment on above: Performed By: #### C MP, 6, FEPR, 2324-2, TSHR, PINR, 2276-4, 6771-0, 2064-4, 2465-3, 1834-1, 18483-0, 5130-0, AHP #### [facility] ([id number]) [address], [address] [place] [address] Office Visiton 04-23-2025 Follow-up visit [id number] Connie Brian A 1955 F Date Provider Department Center 04/23/2025 ROGERS BERNAL DAISY Barakat Family History Problem Relation Age of Onset No Known Problems Mother Diabetes Father No Known Problems Sister Heart disease Brother Family Status - Relation Status Age at Mother Father Sister Alive Brother Level of Service:37211 AL OFFICE/OUTPATIENT ESTABLISHED LOW MDM 20 MIN Normal [facility] Orders Onlyon 04-22-2025 Orders Only [id number] Connie Brian A 1955 F Date Provider Department Center 04/22/2025 [id number], [facility] DAISY Barakat Family History Problem Relation Age of Onset No Known Problems Mother Diabetes Father No Known Problems Sister Heart disease Brother Family Status - Relation Status Age at Mother Father Sister Alive Brother [facility] 36on 04-19-2025 36 Scheduled EGD w/ Push/Cirrhosis/AVM's 04/25/25 @08, [facility], Dr. Zazueta, [facility] ph: 04/24/25 pm, #[phone]. Clinic appt 04/10/25 w/ Patricia and EGD 01/29/25 @ [place] w/ Marbin. Called to schedule EGD/Hepatic Cirrhosis. Scheduled 04/24/25 for Cardiac Ablation. We will follow up afterwards re: clearance/blood thinner hold. Normal [facility] Telephoneon 04-19-2025 Telephone [id number] Connie Brian A 1955 F Date Provider Department Center 04/19/2025 [id number] SINGLE[place] [facility] Family History Problem Relation Age of Onset No Known Problems Mother Diabetes Father No Known Problems Sister Heart disease Brother Family Status - Relation Status Age at Mother Father Sister Alive Brother Normal [facility] Orders Onlyon 04-18-2025 Orders Only [id number] Connie Brian A 1955 F Date Provider Department Center 04/18/2025 [id number] GAN [facility] PREOP [place] [facility] Family History Problem Relation Age of Onset No Known Problems Mother Diabetes Father No Known Problems Sister Heart disease Brother Family Status - Relation Status Age at Mother Father Sister Alive Brother [facility] 37on 04-10-2025 37 Please get blood wor k Schedule EGD I added a new pill called Aldactone to help with ascites. Follow up in 6 months [facility] COMPREHENSIVE METABOLIC PANE Josh 04-10-2025 Albumin [Mass/Vol] 3.6 g/dL Normal 3.2-5.3 [facility] Comment on above: Performed By: #### C MP, 2156-6, FEPR, 2324-2, TSHR, PINR, 2276-4, 6771-0, 2064-4, 2465-3, 1834-1, 58908-6, 5130-0, AHP #### [facility] ([id number]) [address], [address] [place] [address] ALP [Catalytic activity/Vol] 98 U/L Normal 39-130 [facility] Comment on above: Performed By: #### C MP, 2157-04, FEPR, 2324-2, TSHR, PINR, 2276-4, 6771-0, 2064-4, 2465-3, 1834-1, 98641-9, 5130-0, AHP #### [facility] ([id number]) [address], [address] [place] [address] ALT [Catalytic activity/Vol] 13 U/L Normal <=31 [facility] Comment on above: Performed By: #### C MP, 2157-04, FEPR, 2324-2, TSHR, PINR, 2276-4, 6771-0, 2064-4, 2465-3, 1834-1, 85233-0, 5130-0, AHP #### [facility] ([id number]) [address], [address] [place] [address] Anion gap [Moles/Vol] 11 mmol/L Normal 5-15 [facility] Comment on above: Performed By: #### C MP, 2157-6, FEPR, 2324-2, TSHR, PINR, 2276-4, 6771-0, 2064-4, 2465-3, 1834-1, 35952-1, 5130-0, AHP #### [facility] ([id number]) [address], [address] [place] [address] AST [Catalytic activity/Vol] 21 U/L Normal <=41 [facility] Comment on above: Performed By: #### C MP, 2157-6, FEPR, 2324-2, TSHR, PINR, 2276-4, 6771-0, 4-4, 2465-3, 1834-1, 93096-3, 5130-0, AHP #### [facility] ([id number]) [address], [address] [place] [address] Bilirubin [Mass/Vol] 1.4 mg/dL High 0.3-1.2 [facility] Comment on above: Performed By: #### C MP, 7-6, FEPR, 2324-2, TSHR, PINR, 2276-4, 6771-0, 4-4, 2465-3, 1834-1, 52464-7, 5130-0, AHP #### [facility] ([id number]) [address], [address] [place] [address] Calcium [Mass/Vol] 9.5 mg/dL Normal 8.5-10.5 [facility] Comment on above: Performed By: #### C MP, 2157-6, FEPR, 2324-2, TSHR, PINR, 2276-4, 6771-0, 4-4, 2465-3, 1834-1, 44375-4, 5130-0, AHP #### [facility] ([id number]) [address], [address] [place] [address] Chloride [Moles/Vol] 109 mmol/L Normal 98-109 [facility] Comment on above: Performed By: #### C MP, 2156-6, FEPR, 2324-2, TSHR, PINR, 2276-4, 6771-0, 2064-4, 2465-3, 1834-1, 78828-9, 5130-0, AHP #### [facility] ([id number]) [address], [address] [place] [address] CO2 [Moles/Vol] 23 mmol/L Normal 22-32 [facility] Comment on above: Performed By: #### C MP, 2156-6, FEPR, 2324-2, TSHR, PINR, 2276-4, 6771-0, 2064-4, 2465-3, 1834-1, 65217-9, 5130-0, P #### [facility] ([id number]) [address], [address] [place] [address] Creatinine [Mass/Vol] 0.69 mg/dL Normal 0.40-1.00 [facility] Comment on above: Result Comment: METH OD TRACEABLE TO IDMS STANDARD Performed By: #### C MP, 2156-6, FEPR, 2324-2, TSHR, PINR, 2276-4, 6771-0, 2064-4, 2465-3, 1834-1, 48756-4, 5130-0, P #### [facility] ([id number]) [address], [address] [place] [address] EGFR (CKD-EPI) NON-RACE DEPENDENT >^90 Normal >=60 [facility] Comment on above: Result Comment: Repo rted eGFR is based on the CKD-EPI 2020 equation that does not use a race coefficient. Performed By: #### C MP, 2156-6, FEPR, 2324-2, TSHR, PINR, 2276-4, 6771-0, 2064-4, 2465-3, 1834-1, 17096-9, 5130-0, AHP #### [facility] ([id number]) [address], [address] [place] [address] Glucose [Mass/Vol] 227 mg/dL High 65-99 [facility] Comment on above: Performed By: #### C MP, 2156-6, FEPR, 2324-2, TSHR, PINR, 2276-4, 6771-0, 2064-4, 2465-3, 1834-1, 18474-9, 5130-0, AHP #### [facility] ([id number]) [address], [address] [place] [address] Potassium [Moles/Vol] 4.7 mmol/L Normal 3.5-5.0 [facility] Comment on above: Performed By: #### C MP, 6, FEPR, 2324-2, TSHR, PINR, 2276-4, 6771-0, 4-4, 2465-3, 1834-1, 95365-0, 5130-0, AHP #### [facility] ([id number]) [address], [address] [place] [address] Protein [Mass/Vol] 7.0 g/dL Normal 6.0-8.0 [facility] Comment on above: Performed By: #### C MP, 6, FEPR, 2324-2, TSHR, PINR, 2276-4, 6771-0, 4-4, 2465-3, 1834-1, 82943-1, 5130-0, AHP #### [facility] ([id number]) [address], [address] [place] [address] Sodium [Moles/Vol] 143 mmol/L Normal 134-146 [facility] Comment on above: Performed By: #### C MP, 2156-6, FEPR, 2324-2, TSHR, PINR, 2276-4, 6771-0, 2064-4, 2465-3, 1834-1, 22719-3, 5130-0, AHP #### [facility] ([id number]) [address], [address] [place] [address] Urea nitrogen [Mass/Vol] 21 mg/dL Normal 5-27 [facility] Comment on above: Performed By: #### C MP, 2156-6, FEPR, 2324-2, TSHR, PINR, 6-4, 6771-0, 4-4, 2465-3, 1834-1, 67137-4, 5130-0, P #### [facility] ([id number]) [address], [address] [place] [address] Follow-Upon 04-10-2025 Follow-Up [id number] RocTalhaConnie A 1955 F Date Provider Department Center 04/10/2025 DAMIAN CORDOBA [facility] HERNANDEZ [facility] Family History Problem Relation Age of Onset No Known Problems Mother Diabetes Father No Known Problems Sister Heart disease Brother Family Status - Relation Status Age at Mother Father Sister Alive Brother Level of Service:38989 AL OFFICE/OUTPATIENT ESTABLISHED MOD MDM 30 MIN () Reason for Visit and Comments: Follow-up [041076] Normal [facility] PROTIME AND INRon 04-10-2025 INR 1.5 High 0.9-1.2 [facility] Comment on above: Performed By: #### C MP, 2156-6, FEPR, 2324-2, TSHR, PINR, 6-4, 6771-0, 2063-4, 2465-3, 1834-1, 72859-6, 5130-0, P #### [facility] ([id number]) [address], [address] [place] [address] PT Coag (PPP) [Time] 17.4 s High 9.8-13.2 [facility] Comment on above: Performed By: #### C MP, 2156-6, FEPR, 2324-2, TSHR, PINR, 2276-4, 6771-0, 2063-4, 2465-3, 1834-1, 87917-8, 5130-0, [facility] #### [facility] ([id number]) [address], [address] [place] [address] Prep for Procedureon 025 Prep for Procedure [id number] Connie Brian Hannah 1955 F Date Provider Department Center 03/22/2025 Juan-IZABELA OSMAN [facility] [place] [facility] Family History Problem Relation Age of Onset No Known Problems Mother Diabetes Father No Known Problems Sister Heart disease Brother Family Status - Relation Status Age at Mother Father Sister Alive Brother Normal [facility] Urine Cultureon 03-05-2025 Bacteria identified Cx Nom (U) ORGANISM: Escherichia coli (O:ESCCOL) [place] Count >100,000 Aerobic KAL Charge (NMIC56) --- SUSCEPTIBILITY -- ORGANISM: O:ESCCOL ANTIBIOTIC INTERPRETATION KAL Amikacin S <16 Amoxacillin/K Clavulanate S <8 Ampicillin R >16 Ampicillin/Sulbactam R >16 Aztreonam S <4 Cefazolin S <2 Cefepime S <2 Ceftazidime S <1 Ceftazidime/Avibactam S <4 Ceftolozane/Tazobactam S <2 Ceftriaxone S <1 Cefuroxime S <4 Ciprofloxacin R >2 Ertapenem S <0.5 Gentamicin S <2 Levofloxacin R 4 Meropenem S <1 Meropenem/Vaborbactam S <2 Nitrofurantoin [...] RESISTANT TO ALL B-LACTAM DRUGS. PERFORMED BY: [facility] [address] [address] PATHOLOGIST INTERACTIVE DEVELOPER HARRIET CHOWDHURY M.D. Normal [facility] Comment on above: Performed By: #### C UU #### [facility] [address] [place] [address] [facility] Office Visiton 02-26-2025 Follow-up visit [id number] Connie Brian 1955 F Date Provider Department Center 02/26/2025 ROGERS BERNAL DAISY Barakat Family History Problem Relation Age of Onset No Known Problems Mother Diabetes Father No Known Problems Sister Heart disease Brother Family Status - Relation Status Age at Mother Father Sister Alive Brother Level of Service:43421 AL OFFICE/OUTPATIENT ESTABLISHED MOD MDM 30 MIN Normal [facility] HPon 01-29-2025 HP H&P reviewed. The patient was examined and there are no changes to the H&P. Upper GI bleeding with melena and anemia with history of steatohepatitis. The patient is scheduled to have an upper endoscopy to rule out upper GI bleeding. Normal [facility] NURSNOTEon 01-29-2025 ELHAM RN reviewed discharg e instructions with patient and friend at bedside. No questions or concerns expressed at this time. Normal [facility] NURSNOTE Grounding patch removed skin dry and intact. Normal [facility] NURSNOTE Grounding patch applied to pt right posterior thigh skin dry and intact Normal [facility] POCT GLUCOSE METER UNSOLICIT ED RESULTSon 01-29-2025 Glucose [Mass/Vol] 248 mg/dL High 70-105 [facility] Comment on above: Order Comment: Waive d Testing in the ED is performed under the ED CLIA certificate #[id number]. Result Comment: ltol les Performed By: #### L [id number] #### [facility] (BEAKER) [address] [place] [address] Glucose [Mass/Vol] 276 mg/dL High 70-105 [facility] sit of [facility] Comment on above: Order Comment: Waive d Testing in the ED is performed under the ED CLIA certificate #[id number]. Result Comment: ngro radha Performed By: #### L [id number] ####[facility] (BEAKER)[address] [place] [address] ACUTE HEPATITIS PANELon ANTI HCV W/PCR REFLX Non-Reactive Normal NRCT Pr [facility] Comment on above: Result Comment: NEW TEST METHOD NOTE If recent infection suspected, recommend repeat testing (>2 months). Nepvlh-wx-egnlsn ratio is <1.00. Performed By: #### C MP, 2156-, FEPR, 2324-2, TSHR, PINR, 2276-4, 6771-0, 2064-4, 2465-3, 1834-1, 14367-3, 5130-0, AHP #### [facility] ([id number]) [address] [place] [address] HEPATITIS A IGM Non-Reactive Normal NRCT [facility] Comment on above: Result Comment: NEW TEST METHOD Performed By: #### C MP, 6, FEPR, 2324-2, TSHR, PINR, 2276-4, 6771-0, 2064-4, 2465-3, 1834-1, 62619-4, 5130-0, AHP #### [facility] ([id number]) [address] [place] [address] HEPATITIS B CORE IGM Non-Reactive Normal NRCT Pr [facility] Comment on above: Result Comment: NEW TEST METHOD Performed By: #### C MP, 6, FEPR, 2324-2, TSHR, PINR, 2276-4, 6771-0, 2064-4, 2465-3, 1834-1, 96461-4, 5130-0, AHP #### [facility] ([id number]) [address] [address] HEPATITIS B SURF AG Non-Reactive Normal NRCT [facility] Comment on above: Result Comment: NEW TEST METHOD Performed By: #### C MP, 2156-6, FEPR, 2324-2, TSHR, PINR, 2276-4, 6771-0, 2064-4, 2465-3, 1834-1, 60802-3, 5130-0, AHP #### [facility] ([id number]) [address], [address] [address] AFP [Mass/Vol]on 01-23-2025 ALPHA FETOPROTEIN 2.6 ng/mL Normal 0-9.9 [facility] Comment on above: Performed By: #### C MP, 6, FEPR, 2324-2, TSHR, PINR, 2276-4, 6771-0, 2064-4, 2465-3, 1834-1, 04577-7, 5130-0, AHP #### [facility] ([id number]) [address] [address] Aldolase [Catalytic activity /Vol]on 01-23-2025 ALDOLASE 5.4 U/L Normal 1.2-7.6 [facility] Comment on above: Result Comment: NOTE REFERENCE INTERVAL: Aldolase Access complete set of age- and/or gender-specific reference intervals for this test in the [employer] [facility] Test Directory ([place]). Performed By: Yub [address] [place] [address] Inpatient Coder: Bart Infante MD, PhD CLIA Number: [id number] Performed By: #### C MP, 2156-6, FEPR, 2324-2, TSHR, PINR, 2276-4, 6771-0, 2064-4, 2465-3, 1834-1, 11835-6, 5130-0, AHP #### [facility] ([id number]) [address], [address] [address] Alpha 1 antitrypsin Nephelom etry [Mass/Vol]on 01-23-2025 ALPHA 1 ANTITRYPSIN 185 mg/dL Normal 83-199 [facility] Comment on above: Performed By: #### C MP, 7-6, FEPR, 2324-2, TSHR, PINR, 2276-4, 6771-0, 2064-4, 2465-3, 1834-1, 05316-3, 5130-0, AHP #### [facility] ([id number]) [address] [place] [address] CK [Catalytic activity/Vol]o n 01-23-2025 CPK 27 U/L Normal 24-170 [facility] Comment on above: Performed By: #### C MP, 2156-6, FEPR, 2324-2, TSHR, PINR, 2276-4, 6771-0, 4-4, 2465-3, 1834-1, 73784-9, 5130-0, P #### [facility] ([id number]) [address] [place] [address] COMPREHENSIVE METABOLIC PANE Josh 01-23-2025 Albumin [Mass/Vol] 3.5 g/dL Normal 3.2-5.3 [facility] Comment on above: Performed By: #### C MP, 2156-6, FEPR, 2324-2, TSHR, PINR, 2276-4, 6771-0, 2064-4, 2465-3, 1834-1, 05190-7, 5130-0, AHP #### [facility] ([id number]) [address], [address] [place] [address] ALP [Catalytic activity/Vol] 108 U/L Normal 39-130 [facility] Comment on above: Performed By: #### C MP, 2157-6, FEPR, 2324-2, TSHR, PINR, 2276-4, 6771-0, 2064-4, 2465-3, 1834-1, 93726-9, 5130-0, AHP #### [facility] ([id number]) [address], [address] [place] [address] ALT [Catalytic activity/Vol] 13 U/L Normal 0-31 [facility] Comment on above: Performed By: #### C MP, 2156-6, FEPR, 2324-2, TSHR, PINR, 2276-4, 6771-0, 4-4, 2465-3, 1834-1, 84391-5, 5130-0, AHP #### [facility] ([id number]) [address] [place] [address] Anion gap [Moles/Vol] 14 mmol/L Normal 5-15 [facility] Comment on above: Performed By: #### C MP, 6, FEPR, 2324-2, TSHR, PINR, 6-4, 6771-0, 4-4, 2465-3, 1834-1, 43113-8, 5130-0, P #### [facility] ([id number]) [address] [place] [address] AST [Catalytic activity/Vol] 25 U/L Normal 0-41 [facility] Comment on above: Performed By: #### C MP, 2156-6, FEPR, 2324-2, TSHR, PINR, 2276-4, 6771-0, 2063-4, 2465-3, 1834-1, 80565-8, 5130-0, AHP #### [facility] ([id number]) [address], [address] [place] [address] Bilirubin [Mass/Vol] 1.1 mg/dL Normal 0.3-1.2 [facility] Comment on above: Performed By: #### C MP, 2156-6, FEPR, 2324-2, TSHR, PINR, 2276-4, 6771-0, 4-4, 2465-3, 1834-1, 57761-3, 5130-0, AHP #### [facility] ([id number]) [address], [address] [place] [address] Calcium [Mass/Vol] 9.0 mg/dL Normal 8.5-10.5 [facility] Comment on above: Performed By: #### C MP, 2157-04, FEPR, 2324-2, TSHR, PINR, 2276-4, 6771-0, 4-4, 2465-3, 1834-1, 97899-4, 5130-0, AHP #### [facility] ([id number]) [address] [place] [address] Chloride [Moles/Vol] 104 mmol/L Normal 98-109 [facility] Comment on above: Performed By: #### C MP, 2157-04, FEPR, 2324-2, TSHR, PINR, 2276-4, 6771-0, 4-4, 2465-3, 1834-1, 76761-6, 5130-0, AHP #### [facility] ([id number]) [address], [address] [place] [address] CO2 [Moles/Vol] 25 mmol/L Normal 22-32 [facility] Comment on above: Performed By: #### C MP, 2157-04, FEPR, 2324-2, TSHR, PINR, 2276-4, 6771-0, 4-4, 2465-3, 1834-1, 72075-4, 5130-0, AHP #### [facility] ([id number]) [address], [address] [place] [address] Creatinine [Mass/Vol] 0.79 mg/dL Normal 0.40-1.00 [facility] Comment on above: Result Comment: METH OD TRACEABLE TO IDMS STANDARD Performed By: #### C MP, 2157-04, FEPR, 2324-2, TSHR, PINR, 2276-4, 6771-0, 2064-4, 2465-3, 1834-1, 80893-7, 5130-0, P #### [facility] ([id number]) [address] [place] [address] GFR/1.73 sq M.predicted among non-blacks MDRD (S/P/Bld) [Vol rate/Area] 81 mL/min/{1.73_m2} Normal >59 [facility] Comment on above: Result Comment: Reported eGFR is based on the CKD-EPI 2020 equation that does not use a race coefficient. Performed By: #### C MP, 2157-04, FEPR, 2324-2, TSHR, PINR, 2276-4, 6771-0, 2064-4, 2465-3, 1834-1, 05635-3, 5130-0, P #### [facility] ([id number]) [address] [place] [address] Glucose [Mass/Vol] 269 mg/dL High 65-99 [facility] Comment on above: Performed By: #### C MP, 2157-04, FEPR, 2324-2, TSHR, PINR, 2276-4, 6771-0, 2064-4, 2465-3, 1834-1, 70825-7, 5130-0, P #### [facility] ([id number]) [address], [address] [place] [address] Potassium [Moles/Vol] 3.8 mmol/L Normal 3.5-5.0 [facility] Comment on above: Performed By: #### C MP, 2156-, FEPR, 2324-2, TSHR, PINR, 2276-4, 6771-0, 2064-4, 2465-3, 1834-1, 12339-0, 5130-0, P #### [facility] ([id number]) [address], [address] [place] [address] Protein [Mass/Vol] 7.4 g/dL Normal 6.0-8.0 [facility] Comment on above: Performed By: #### C MP, 2156-6, FEPR, 2324-2, TSHR, PINR, 2276-4, 6771-0, 2064-4, 2465-3, 1834-1, 56625-4, 5130-0, P #### [facility] ([id number]) [address], [address] [place] [address] Sodium [Moles/Vol] 143 mmol/L Normal 134-146 [facility] Comment on above: Performed By: #### C MP, 6, FEPR, 2324-2, TSHR, PINR, 2276-4, 6771-0, 2064-4, 2465-3, 1834-1, 28403-8, 5130-0, P #### [facility] ([id number]) [address], [address] [place] [address] Urea nitrogen [Mass/Vol] 24 mg/dL Normal 5-27 [facility] Comment on above: Performed By: #### C MP, 6, FEPR, 2324-2, TSHR, PINR, 2276-4, 6771-0, 2064-4, 2465-3, 1834-1, 11315-6, 5130-0, P #### [facility] ([id number]) [address], [address] [place] [address] Ceruloplasmin [Mass/Vol]on 0 01-23-2025 CERULOPLASMIN 33 mg/dL Normal 18-58 [facility] [facility] Comment on above: Performed By: #### C MP, 2156-6, FEPR, 2324-2, TSHR, PINR, 2276-4, 6771-0, 2064-4, 2465-3, 1834-1, 12935-8, 5130-0, AHP #### [facility] ([id number]) [address], [address] [place] [address] DNA double strand Ab Qn (S)o n 01-23-2025 DOUBLE STRANDED DNA <1 Normal <5 [facility] Comment on above: Result Comment: Interpretation-------- <5 Negative 5-9 Indeterminate >9 Positive Performed By: #### C MP, 2156-6, FEPR, 2324-2, TSHR, PINR, 2276-4, 6771-0, 2064-4, 2465-3, 1834-1, 31739-7, 5130-0, AHP #### [facility] ([id number]) [address], [address] [place] [address] FERRITINon 01-23-2025 Ferritin [Mass/Vol] 5 ng/mL Low 11-307 [facility] Comment on above: Performed By: #### C MP, 2156-6, FEPR, 2324-2, TSHR, PINR, 2276-4, 6771-0, 2064-4, 2465-3, 1834-1, 66972-3, 5130-0, AHP #### [facility] ([id number]) [address], [address] [place] [address] GGTon 01-23-2025 Gamma glutamyl transferase [Catalytic activity/Vol] 86 U/L High 7-33 [facility] Comment on above: Performed By: #### C MP, 2156-6, FEPR, 2324-2, TSHR, PINR, 2276-4, 6771-0, 2064-4, 2465-3, 1834-1, 66020-6, 5130-0, AHP #### [facility] ([id number]) [address] [place] [address] on 01-23-2025 HP -- Attestation signed by Damian Gomez MD at 01/23/2025 3:48 PM Seen and discussed with fellow, agree with assessment and plan. [facility] Gastroenterology New Patient Visit - History & Physical CHIEF COMPLAINT Chief Complaint Patient presents with New Patient EGD scheduled, was at [facility] and sent for an EGD but also Cirrhosis work up. She was never told she has Cirrhisis but overheard a Doctor say it to another Doctor. HISTORY OF PRESENT ILLNESS: Connie Brian is a 69 y.o. female with [...] : EGD and Colonoscopy was done in [facility] 11/06/2025 HISTORY: Problem list: Patient Active Problem [...] Outpatient Medic (more content not included)... Normal [facility] IGGon 01-23-2025 IgG [Mass/Vol] 1498 mg/dL Normal 635-1741 [facility] Comment on above: Performed By: #### C MP, 2156-6, FEPR, 2324-2, TSHR, PINR, 2276-4, 6771-0, 2064-4, 2465-3, 1834-1, 35481-8, 5130-0, AHP #### [facility] ([id number]) [address], [address] [place] [address] IRON PROFILEon 01-23-2025 Iron [Mass/Vol] 20 ug/dL Low 50-170 [facility] Comment on above: Performed By: #### C MP, 6, FEPR, 2324-2, TSHR, PINR, 2276-4, 6771-0, 2064-4, 2465-3, 1834-1, 99343-0, 5130-0, AHP #### [facility] ([id number]) [address], [address] [place] [address] IRON BINDING 504 ug/dL High 250-425 [facility] Comment on above: Performed By: #### C MP, 6, FEPR, 2324-2, TSHR, PINR, 2276-4, 6771-0, 2064-4, 2465-3, 1834-1, 07781-8, 5130-0, AHP #### [facility] ([id number]) [address], [address] [place] [address] IRON SATURATION 4 % SATURATION Low 15-50 [facility] Comment on above: Performed By: #### C MP, 6, FEPR, 2324-2, TSHR, PINR, 2276-4, 6771-0, 2064-4, 2465-3, 1834-1, 26173-4, 5130-0, AHP #### [facility] ([id number]) [address], [address] [place] [address] Mitochondria M2 Ab IA Qn (S) on 01-23-2025 Mitochondrial Ab (M2) <0.1 Normal <0.1 (Negative) [facility] Comment on above: Result Comment: NOTE Test Performed by: [facility] [address] [place] [address] Six Pack Packer: Neyda Gutierrez Ph.D.; CLIA# [id number] Performed By: #### C MP, 7-6, FEPR, 2324-2, TSHR, PINR, 2276-4, 6771-0, 2064-4, 2465-3, 1834-1, 05065-4, 5130-0, P #### [facility] ([id number]) [address], [address] [place] [address] Nuclear Ab IA Ql (S)on 01-23 [place] Screen w/reflex Negative Normal NEG [facility] Comment on above: Result Comment: Testing performed using multiplex flow immunoassay. Eleven different antigens associated with systemic autoimmune diseases (dsDNA,Sm,Sm/MAT PACKER,MAT PACKER,Chromatin, SSA,SSB,Daniela-1,Scl70,Ribo P,Centromere B) are included in this screening test. Performed By: #### C MP, 2157-6, FEPR, 2324-2, TSHR, PINR, 2276-4, 6771-0, 2064-4, 2465-3, 1834-1, 58961-7, 5130-0, P #### [facility] ([id number]) [address], [address] [place] [address] Office Visiton 01-23-2025 Follow-up visit [id number] Connie Brian 1955 F Date Provider Department Center 01/23/2025 DAMIAN CORDOBA [facility] Family History Problem Relation Age of Onset No Known Problems Mother Diabetes Father No Known Problems Sister No Known Problems Brother Family Status - Relation Status Age at Mother Father Sister Brother Level of Service:27020 AL OFFICE/OUTPATIENT NEW MODERATE MDM 45 MINUTES (GC) Reason for Visit and Comments: New Patient [632] - EGD scheduled, was at [facility] and sent for an EGD but also Cirrhosis work up. She was never told she has Cirrhisis but overheard a Doctor say it to another Doctor. Normal [facility] PROTIME AND INRon 01-23-2025 INR Coag (PPP) [Relative time] 1.4 {INR} High 0.9-1.2 [facility] Comment on above: Performed By: #### C MP, 2157-04, FEPR, 2324-2, TSHR, PINR, 2276-4, 6771-0, 2064-4, 2465-3, 1834-1, 93574-8, 5130-0, AHP #### [facility] ([id number]) [address] [place] [address] PT Coag (PPP) [Time] 16.4 s High 9.8-13.2 [facility] Comment on above: Performed By: #### C MP, 2157-04, FEPR, 2324-2, TSHR, PINR, 2276-4, 6771-0, 2064-4, 2465-3, 1834-1, 54241-0, 5130-0, AHP #### [facility] ([id number]) [address] [place] [address] TSH WITH REFLEXon 01-23-2025 TSH 3.87 uIU/mL Normal 0.49-4.67 [facility] Comment on above: Performed By: #### C MP, 6, FEPR, 2324-2, TSHR, PINR, 2276-4, 6771-0, 2064-4, 2465-3, 1834-1, 13339-7, 5130-0, AHP #### [facility] ([id number]) [address], [address] [place] [address] 36on 01-22-2025 36 Spoke with patients roommate, Katherine, that I have the okay for Connie to hold her Eliquis for 48 hours prior to her EGD on 01/29/25, verbalizes understanding. Normal [facility] Telephoneon 01-22-2025 Telephone [id number] Connie Brian 1955 [facility] Provider Department Center 01/22/2025 ISAURO AUSTIN [facility] GE[facility] Family History Problem Relation Age of Onset No Known Problems Mother Diabetes Father No Known Problems Sister No Known Problems Brother Family Status - Relation Status Age at Mother Father Sister Brother [facility] Prep for Procedureon 025 Prep for Procedure [id number] Connie Brian 1955 [facility] Provider Department Center 01/21/2025 JESUS NAVA [facility] [place] Family History Problem Relation Age of Onset No Known Problems Mother Diabetes Father No Known Problems Sister No Known Problems Brother Family Status - Relation Status Age at Mother Father Sister Brother [facility] 36on 01-11-2025 36 Message left for patient to call and schedule an EGD. She will also need an office visit with Dr. Gomez for Hepatology/Cirrhosis. [facility] Office Visiton 12-18-2024 Follow-up visit [id number] Connie Brian 1955 Date Provider Department Center 12/18/2024 ROGERS BERNAL Family History Problem Relation Age of Onset No Known Problems Mother Diabetes Father No Known Problems Sister No Known Problems Brother Family Status - Relation Status Age at Mother Father Sister Brother Level of Service:05785 AL OFFICE/OUTPATIENT ESTABLISHED MOD MDM 30 MIN [facility] Reminderson 11-28-2024 Reminders Reminders From: Skye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 - LO W CARDIOVASCULAR RISK <40 mg/dl - HIGH CARDIOVASCULAR RISK Normal [facility] Comment on above: Performed By: #### L IPID, CMP, T7, TSH #### [facility] [address] [place] [address] Dr. Becky Josue LDL CALC NORMAL SEE BELOW Normal [facility] Comment on above: Result Comment: <100 mg/dl OPTIMAL 100 - 129 mg/dl NEAR OR ABOVE OPTIMAL 130 - 159 mg/dl BORDERLINE HIGH 160 - 189 mg/dl HIGH >190 mg/dl VERY HIGH Performed By: #### L IPID, CMP, T7, TSH #### [facility] [address] [place] [address] [address] Becky Josue Triglyceride [Mass/Vol] 225 mg/dL Critically high <=150 [facility] Comment on above: Performed By: #### L IPID, CMP, T7, TSH #### [facility] [address] [place] [address] [address] Becky Josue VLDL CALC 45.0 mg/dL Normal [facility] Comment on above: Performed By: #### L IPID, CMP, T7, TSH #### [facility] [address] [place] [address] [address] Becky Josue PROF 14(COMP METB)on 021 Albumin [Mass/Vol] 3.1 g/dL Critically low 3.5-5.0 [facility] Comment on above: Performed By: #### L IPID, CMP, T7, TSH #### [facility] [address] [place] [address] Dr. Becky Josue Albumin/Globulin [Mass ratio] 0.8 {ratio} Normal [facility] Comment on above: Performed By: #### L IPID, CMP, T7, TSH #### [facility] [address] [place] [address] Dr. Becky Josue ALP [Catalytic activity/Vol] 100 U/L Normal 38-126 [facility] Comment on above: Performed By: #### L IPID, CMP, T7, TSH #### [facility] [address] [place] [address] Dr. Becky Josue ALT [Catalytic activity/Vol] 35 U/L Normal 9-52 [facility] Comment on above: Performed By: #### L IPID, CMP, T7, TSH #### [facility] [address] [place] [address] [address] Becky Josue Anion gap [Moles/Vol] 13.0 mmol/L Normal [facility] Comment on above: Performed By: #### L IPID, CMP, T7, TSH #### [facility] [address] [place] [address] Dr. Becky Josue AST [Catalytic activity/Vol] 27 U/L Normal 14-36 [facility] Comment on above: Performed By: #### L IPID, CMP, T7, TSH #### [facility] [address] [place] [address] [address] Becky Josue Bilirubin [Mass/Vol] 0.8 mg/dL Normal 0.2-1.3 [facility] Comment on above: Performed By: #### L IPID, CMP, T7, TSH #### [facility] [address] [place] [address] Dr. Becky Josue Calcium [Mass/Vol] 8.9 mg/dL Normal 8.4-10.2 [facility] Comment on above: Performed By: #### L IPID, CMP, T7, TSH #### [facility] [address] [place] [address] Dr. Becky Josue Chloride [Moles/Vol] 103 mmol/L Normal 98-107 [facility] Comment on above: Performed By: #### L IPID, CMP, T7, TSH #### [facility] [address] [place] [address] Dr. Becky Josue CO2 [Moles/Vol] 30.3 mmol/L Critically high 22.0-30.0 [facility] Comment on above: Performed By: #### L IPID, CMP, T7, TSH #### [facility] [address] [place] [address] Dr. Becky Josue Creatinine [Mass/Vol] 0.72 mg/dL Normal 0.52-1.04 [facility] Comment on above: Performed By: #### L IPID, CMP, T7, TSH #### [facility] [address] [place] [address] Dr. Becky Josue EGFR-AF GRENADIAN >60 Normal >=60 [facility] Comment on above: Performed By: #### L IPID, CMP, T7, TSH #### [facility] [address] [place] [address] Dr. Becky Josue EGFR-NON AF GRENADIAN >60 Normal >=60 [facility] Comment on above: Performed By: #### L IPID, CMP, T7, TSH #### [facility] [address] [place] [address] Dr. Becky Josue Globulin (S) [Mass/Vol] 3.9 g/dL Normal [facility] Comment on above: Performed By: #### L IPID, CMP, T7, TSH #### [facility] [address] [place] [address] [address] Becky Josue Glucose [Mass/Vol] 261 mg/dL Critically high 74-106 [facility] Comment on above: Performed By: #### L IPID, CMP, T7, TSH #### [facility] [address] [place] [address] [address] Becky Josue Potassium [Moles/Vol] 4.3 mmol/L Normal 3.4-5.0 [facility] Comment on above: Performed By: #### L IPID, CMP, T7, TSH #### [facility] [address] [place] [address] [address] Becky Josue Protein [Mass/Vol] 7.0 g/dL Normal 6.1-8.2 [facility] Comment on above: Performed By: #### L IPID, CMP, T7, TSH #### [facility] [address] [place] [address] [address] Becky Josue Sodium [Moles/Vol] 142 mmol/L Normal 137-145 [facility] Comment on above: Performed By: #### L IPID, CMP, T7, TSH #### [facility] [address] [place] [address] [address] Becky Josue Urea nitrogen [Mass/Vol] 22.0 mg/dL Critically high 7.0-17.0 [facility] Comment on above: Performed By: #### L IPID, CMP, T7, TSH #### [facility] [address] [place] [address] [address] Becky Josue Urea nitrogen/Creatinine [Mass ratio] 30.6 mg/mg Normal [facility] Comment on above: Performed By: #### L IPID, CMP, T7, TSH #### [facility] [address] [place] [address] [address] Becky Josue TSHon 10-03-2021 TSH 2.809 uIU/mL Normal 0.470-4.680 [facility] Comment on above: Performed By: #### L IPID, CMP, T7, TSH ####[facility] [address] [place], [place] [address]Ao. Becky Josue TSH RANGE SEE BELOW Normal [facility] Comment on above: Result Comment: <0.3 4 UIU/ml HYPERTHYROID 0.34-5.60 UIU/ml EUTHYROID >5.60 UIU/ml HYPOTHYROID Performed By: #### L IPID, CMP, T7, TSH ####[facility] [address] [place], [place] [address]Bd. Becky Josue Vital Signs Date Time Vital Sign Value Performing Clinician Facility 02-12-2025 12:31-0400 Body height 167.64 cm Howard Hay DO Work Phone: [facility] 02-12-2025 12:31-0400 Body mass index (BMI) [Ratio] 33 kg/m2 Howard Hay DO Work Phone: [facility] 02-12-2025 12:31-0400 Body temperature 98.4 [degF] Howard Hay DO Work Phone: [facility] 02-12-2025 12:31-0400 Body weight 92.7 kg Howard Hay DO Work Phone: [facility] 02-12-2025 12:31-0400 Diastolic blood pressure 66 mm[Hg] Howard Hay DO Work Phone: [facility] 02-12-2025 12:31-0400 Heart rate 73 /min Howard Hay DO Work Phone: [facility] 02-12-2025 12:31-0400 Respiratory rate 12 /min Howard Hay DO Work Phone: [facility] 02-12-2025 12:31-0400 SaO2% (BldA) [Mass fraction] 96 % Howard Hay DO Work Phone: [facility] 02-12-2025 12:31-0400 Systolic blood pressure 151 mm[Hg] Howard Johnston DO Work Phone: [facility] 10-03-2024 14:06-0500 Blood Pressure Location Manoj [facility] 10-03-2024 14:06-0500 Diastolic blood pressure 68 mm[Hg] [facility] 10-03-2024 14:06-0500 Heart rate 72 /min [facility]oj [facility] 10-03-2024 14:06-0500 Respiratory rate 16 /min Manoj [facility] 10-03-2024 14:06-0500 Systolic blood pressure 132 mm[Hg] Manoj KYEL [facility] 02-16-2022 12:30-0400 Body height 167.64 cm Ashley Cox Other [employer] Other 02-16-2022 12:30-0400 Body mass index (BMI) [Ratio] 34.21 kg/m2 Ashley Cox Other [employer] Other 02-16-2022 12:30-0400 Body temperature 97.8 [degF] Ashley Cox Other [employer] Other 02-16-2022 12:30-0400 Body weight 96.16 kg Ashley Cox Other [employer] Other 02-16-2022 12:30-0400 Respiratory rate 18 /min Ashley Cox Other [employer] Other 02-16-2022 12:30-0400 SaO2% (BldA) [Mass fraction] 97 % Ashley Cox Other [facility] [employer] Other Encounters Encounter Date Encounter Type Care Provider Facility Start: 06-13-2025 Evaluation and management of inpatient [facility] Start: 06-13-2025 ambulatory [facility] Start: 06-13-2025 End: 06-15-2025 Evaluation and management of inpatient [facility] Start: 05-28-2025 End: 05-28-2025 ambulatory JESSICA [facility] Start: 04-25-2025 End: 04-25-2025 Evaluation and management of inpatient JESUS Jordan MARBIN [facility] Start: 04-23-2025 End: 04-23-2025 ambulatory [facility] Start: 04-10-2025 End: 04-10-2025 ambulatory MARYJANE VALENCIA [facility] Start: 04-10-2025 End: 04-10-2025 ambulatory DAMIAN [facility] Start: 04-01-2025 ambulatory [facility] Start: 03-05-2025 End: 03-05-2025 ambulatory Maryjane Valencia Facility:[facility] Start: 03-05-2025 End: 03-05-2025 Departed Referred Maryjane Valencia MD Work Phone: [facility] Start: 02-26-2025 End: 02-26-2025 ambulatory [facility] Start: 02-12-2025 End: 02-12-2025 ambulatory Howard Johnston DO Work Phone: [facility] Work Phone: Start: 02-12-2025 End: 02-12-2025 Patient encounter procedure Howard Johnston DO Work Phone: [facility] Work Phone: Start: 02-07-2025 ambulatory ROGERS [facility] Start: 01-29-2025 End: 01-29-2025 ambulatory JESUS ZAZUETA [facility] Start: 01-23-2025 End: 01-23-2025 ambulatory DAMIAN GOMEZ [facility] Start: 01-23-2025 End: 01-23-2025 ambulatory DAMIAN [facility] Start: 01-03-2025 ambulatory ROGERS [facility] Start: 12-18-2024 End: 12-18-2024 ambulatory [facility] Start: 12-03-2024 ambulatory [facility] Start: 11-27-2024 End: 11-27-2024 ambulatory Manoj DAMON Facility:[facility] Start: 11-27-2024 End: 11-27-2024 Patient encounter procedure Manoj DAMON [facility] [place] Start: 11-18-2024 End: 11-19-2024 Non-patient / Non-visit Howard Johnston DO Work Phone: [facility] Work Phone: Start: 11-15-2024 End: 11-15-2024 ambulatory Lon Del Rosario Facility:[facility] Start: 11-15-2024 End: 11-15-2024 Departed Referred Howard Johnston DO Work Phone: [facility] Path Spec [facility] Start: 11-14-2024 End: 11-14-2024 ambulatory Howard Johnston Facility:[facility] Start: 11-14-2024 End: 11-14-2024 Departed Referred Howard Johnston DO Work Phone: [facility] Path Spec [facility] Start: 11-09-2024 End: 11-09-2024 ambulatory [facility] Start: 11-07-2024 End: 11-07-2024 ambulatory Manoj Damon Facility:[facility] Start: 11-07-2024 End: 11-07-2024 ambulatory Manoj DAMON Facility:[id number] Start: 11-02-2024 ambulatory [facility] Start: 10-22-2024 ambulatory [facility] Start: 10-08-2024 ambulatory [facility] Start: 10-03-2024 End: 10-03-2024 ambulatory Maryjane Valencia Facility:[facility] Start: 10-03-2024 End: 10-03-2024 Patient encounter procedure Manoj DAMON [facility] [place] Start: 09-13-2024 ambulatory [facility] Start: 09-03-2024 ambulatory [facility] Start: 08-06-2024 End: 08-06-2024 ambulatory [facility] Start: 07-03-2024 End: 07-03-2024 ambulatory [facility] Start: 09-24-2022 End: 09-25-[address] MARYJANE VALENCIA Facility:[facility] Start: 02-16-2022 End: 02-16-2022 ambulatory Ashley Cox Other [employer] Other Start: 02-16-2022 Office outpatient vi sit 15 minutes Ashley Cox [facility] Start: 10-26-2021 End: 10-26-2021 ambulatory Soco Hernandez Other [employer] Other Start: 10-26-2021 Office outpatient vi sit 5 minutes Soco Hernandez [facility] Start: 10-12-2021 End: 10-13-[address] MARYJANE VALENCIA Facility:[facility] Start: 10-08-2021 Encounter for genera l adult medical examination without abnormal findings DR MARYJANE VALENCIA [facility] Start: 10-03-2021 End: 10-04-[address] MARYJANE VALENCIA Facility:[facility] Start: 10-03-2021 End: 10-04-2021 Encounter for general adult medical examination without abnormal findings DR MARYJANE VALENCIA Facility:[facility] Procedures Date Procedure Procedure Detail Performing Clinician Start: 11-15-2024 Aerobic microbial culture Howard Johnston DO Work Phone: Start: 11-15-2024 Anaerobic microbial culture Howard Johnston DO Work Phone: Start: 11-15-2024 Gram stain microscopy Howard Larsen Phone: Start: 11-14-2024 Bacteria identified in Blood by Culture Howard Johnston DO [employer] Phone: Start: 11-14-2024 Urine culture Howard Johnston DO [employer] Phone: Start: 11-07-2024 Colonoscopy Manoj NILL Start: 11-07-2024 Esophagogastroduodenoscopy Manoj NILL Start: 05-21-2020 [...] Treatment Date Care Activity Detail Author Start: 03-05-2025 Urine culture [facility] Start: 03-05-2025 Bacteria identified in Urine by Culture Urine Culture [facility] Immunizations Immunization Date Immunization Notes Care Provider Fa cililatha 11-09-2021 SARS-CoV-2 (COVID-19 ) mRNA BNT-162b2 vax [facility] 01-25-2021 SARS-CoV-2 (COVID-19 ) Ad26 vaccine, recombinant Manoj [facility]ON [facility] Payers Date Payer Category Payer Medicare [id number] 2024 Self-pay 2021 Medicare [id number] 2.1 [id number] 1959 Unknown [id number] 2. [id number] 1955 Unknown [id number] 2.16.84 [id number] 1955 Unknown [id number] 2.16.84 [id number] 1956 Unknown [id number] 2.16.84 [id number] 1956 Unknown [id number] 2.16.8 [id number] 1956 Unknown [id number] 2.16.8 [id number] 1956 Unknown [id number] 2.16.8 [id number] 1956 Unknown [id number] 2.16. [id number] 1956 Unknown [id number] 2.16. [id number] 1955 Unknown [id number] 2.16. [id number] Unknown [id number] 2.16.8 [id number] Unknown [id number] 2.16.8 [id number] Unknown [id number] 2.16.8 [id number] Unknown [id number] 2.16.8 [id number] Social History Date Type Detail Facility [facility] Start: 02-16-2022 End: 10-03-2024 Tobacco smoking status [facility] smoked [facility] smoking status Never [facility] Start: 02-12-2025 End: 03-07-2025 Sex Female (finding) [facility] Start: 1955 Sex Assigned At Female F [facility] Functional Status Date Assessment Result Facility 10-03-2024 Functional Status N/A [facility] Clinical Notes 10-26-2021 to 06-14-2025 Note Date & Type Note Facility 06-14-2025 Note Adult Nutrition Asse ssment: Name: Connie Brian Date: 1955 Date of Visit: 06/14/25 Admission Dx: Paroxysmal atrial fibrillation (CMS/HCC) [I48.0] Persistent atrial fibrillation (CMS/HCC) [I48.19] A-fib (CMS/HCC) [I48.91] Reason for assessment: high risk Information obtained from: patient and medical record Medical History[1] Current Medications: apixaban, 5 mg, oral, BID furosemide, 20 mg, oral, Daily magnesium oxide, 400 mg, oral, BID pantoprazole, 40 mg, oral, Daily simvastatin, 20 mg, oral, Nightly spironolactone, 25 mg, oral, Daily sucralfate, 1 g, oral, BID AC venlafaxine XR, 75 mg, oral, Daily sodium chloride, 20 mL/hr, Last Rate: 20 mL/hr (06/14/25 0249) Labs: 0 Lab Value Date/Time POCGLU 263 (H) 06/13/2025 1207 HGB 7.3 (L) 06/14/2025 0327 WBC 7.00 06/14/2025 0327 Allergies: Allergies[2] Nutrition Problems: Swallowing Assessment: pt denies swallowing difficulty Mouth: pt denies chewing difficulty missing teeth Abdominal Assessment: Pt reported reported that she will have a couple days of constipation, and then when she has a BM it will be diarrhea. 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, completed on (06/14): Muscle depletion: Temporalis (head): mild Pectoralis (clavicle): mild Deltoid (shoulder): mild Interosseous (dorsal hand): not assessed Supraspinatus (scapular bone region): none Infraspinatus (scapular bone region): none Quadriceps (patellar region, anterior thigh): none Gastrocnemius (post-calf region): none Adipose depletion: Orbital: mild Buccal: mild Triceps: mild Ribs: not assessed Skin Integrity: bilateral cath sites to groin Edema: BLE non-pitting Other Factors: 06/13: atrial fibrillation ablation Nutrition Data/Clinical Indicators of Nutrition Status: Height: 167.6 cm (5' 6 ) Weight: 83.5 kg (184 lb) BMI (Calculated): 29.71 Wt Readings from Last 10 Encounters: 06/14/25 83.5 kg (184 lb) 04/23/25 90.3 kg (199 lb) cardiology 04/10/25 95.9 kg (211 lb 6.4 oz) GI 02/26/25 96.2 kg (212 lb) cardiology 01/29/25 95.6 kg (210 lb 12.2 oz) 01/23/25 94.8 kg (209 lb) 12/18/24 103 kg (228 lb) cardiology 11/09/24 99.3 kg (219 lb) 07/03/24 99.3 kg (219 lb) cardiology 04/19/24 98.9 kg (218 lb) IBW: 59 kg Weight change: Pt reported weight lose since April without trying. Pt reported that she has been active since then. 1 month: 6.8 kg (7.5%)- severe 3 months: 12.7 kg (13.2%)- severe 6 months: 19.5 kg (19%)- severe Nutrition Assessment: Pt reported her appetite currently is good, but her appetite will vary. Pt reported that for the last month she has been out of her routine with doctors appointments. Pt reported that when her routine is off it will cause her blood sugar to get high and her appetite to be lower. Pt reported that she has been eating less than normal, but was not able to say how much less compared to normal. Pt reported that there has been times over the past month where she has not had a lot of energy. Pt reported that she will try to eat 3 meals a day. Pt did not provide a detailed diet recall as pt kept talking about how her blood sugar has been off. Pt reported that for breakfast she will have things like hard boiled eggs, cheerios, or fruit. Pt reported that she will sometimes eat out for lunch if she is on the go. Pt reported that she eat a lot of fruit and vegetables and tuna. Pt reported that she does not eat a lot of meat as she has lost taste for it. Pt reported that she will check her blood sugar at home. Dietary Orders (From admission, onward) Start Ordered 06/13/25 1449 Regular Diet Heart Healthy/HTN, CABG,Stroke, (2gNA, low fat, low cholesterol) Diet effective now Question Answer Comment Room Service? Yes Fat restriction: Heart Healthy/HTN, CABG,Stroke, (2gNA, low fat, low cholesterol) 06/13/25 1448 Nutrition Risk: High Nutrition Needs: Needs based on: ideal body weight (59 kg) Calorie needs: 3763-6407 kcals/day based on 25-30 kcal/kg Protein needs: 59-71 g/day based on 1.0-1.2 g/kg Fluid needs: 1770 ml/day based on 30 ml/kg Nutrition Diagnosis: Moderate protein calorie malnutrition related to chronic illness as evidenced by weight loss of greater than 5% in one month and mild loss of muscle and fat mass. Malnutrition Assessment: Assessment Timepoint: Admit Reason for Referral: high risk Nutrition information obtained from:: Patient, Medical Record Clinical Indicators of Malnutrition: reduced energy intake, unintentional weight loss, loss of muscle mass with location identified, loss of subcutaneous fat with locations identified Malnutrition Assessment (Completed by RD) Moderate (non-severe) PCM: Chronic Illness: 5% involuntary weight loss in 1 month, s (more content not included)... [facility] 07-24-2025 Note -- Attestation signed by Rogers Catalan MD at 06/16/2025 12:59 PM By using the attestations below, the signing clinician agrees that I have read and verify that the documentation has been personally reviewed by me and ensure that the documentation accurately reflects the encounter. -- Plan of Care Received call from RN that patient's repeat hemoglobin came back at 6.6. Per chart review, this is a chronic issue for the patient and she is currently being worked up for her anemia by gastroenterology. Patient underwent atrial fibrillation ablation earlier today. Discussed case with Dr. Catalan. Agrees with transfusion of 1 unit pRBC. Patient was seen and examined at bedside. Denies any acute complaints. Has received multiple blood transfusions previously over the past few months. Risks, benefits, alternatives of blood transfusion were discussed with the patient in the presence of RN. Patient verbalized understanding and is willing to receive blood transfusion. Will continue to monitor. Please call with any questions. Angie Haque PGY-4 [employer] [facility] 06-13-2025 Note ATRIAL FIBRILLATION ABLATION PROCEDURE NOTE DATE OF PROCEDURE: 06/13/2025 PERFORMING PHYSICIAN: Dr. Rogers Catalan BUSINESS AREA MANAGER: REJI CONSENT: Patient NAME OF THE PROCEDURE: Pulmonary Vein Isolation and Comprehensive EP study. INDICATIONS FOR PROCEDURE: 1. Paroxysmal atrial fibrillation. PROCEDURES PERFORMED: 1. Sonosite guided venous access as noted below and images stored. 2. Comprehensive EP study and catheter ablation for persistent atrial fibrillation through the pulmonary vein isolation technique. This includes right atrial recording and pacing, His bundle recording and right ventricular recording and pacing. 3. Intracardiac EP 3D mapping. 4. Intracardiac echocardiogram 5. Left atrial and coronary sinus recording and pacing to assess ablation results. 6. Left heart pressure measurements and LV pacing and recording. 7. Induction of arrhythmia and testing of ablation results using intravenous adenosine infusion. 8. Fluroscopy. 9. Arterial line placement. FLUROSCOPY: 14.7min/ 87mGray EBL: 25cc PROCEDURE NOTE: Pt was brought to EP lab and she was in sinus rhythm, so HENNY was deferred. Thereafter, we proceeded to do atrial fibrillation ablation. Both the groins were then prepared and draped. Ultrasound was used to determine the course and patency of the femoral veins on both sides and they were noted to be patent and the image stored in PACS. After infiltration with 1% lidocaine, 3 venous sheaths were placed in the right as noted below. LFA: 4F for hemodynamic monitoring RFV: 8Fx1 CS Catheter (EZ Steer) 9Fx1: ICE catheter. 8F -->17F: Faradrive sheath for PFA catheter Heparin bolus was given followed by additional bolus and continuous intravenous drip to target ACT around 350. An intracardiac ultrasound catheter was inserted into the right atrium to examine the right atrial anatomy, atrial septum, pulmonary vein anatomy and to monitor for pericardial effusion and guide transseptal access. ICE revealed that the patient had a significantly mildy dilated right atrium and left atrium and no pericardial effusion. At this point I decided to proceed with the transseptal puncture to perform A. fib ablation. Single transseptal access technique was used to cross to the left side. Following the first transeptal access, which was achieved via puncture of the thinner aspect of the septum using Familia needle, Octoray catheter was placed in the left atrium. Pulmonary vein and left atrial anatomic mapping were performed using a 3-D [employer]ART[employer] computer-based mapping system. Identification of the pulmonary vein ostia was assisted by the left atrial signals on the ablation catheter, the ICE catheter and the Octoray catheter placed in the individual pulmonary veins. There was a common left sided vein. I then proceeded to exchange the SL1 for 17F Faradrive sheath. Farawave multipolar catheter was advanced over a wire with negative aspiration in periodic fashion to avoid any air bubbles. Thereafter the catheter was advanced to each of the veins over the wire to maintain coaxial placement of catheter. 2 PFA energy pulses were given in each position and then position rotated to 36degrees to get new location and repeat PFA energy were provided. Then this process was repeated in the flower configuration in each veins. This led to complete isolation of each vein. Repeat mapping with Octoray catheter revealed isolation of all 4 veins. I felt that the RSPV could benefit from additional application to ensure more of right anterior aspect was included in WACA. Exit block verified with pacing from each vein as well as different locations around the vein.LV pacing revealed no left sided retrograde accessory pathway. Adenosine did not reveal any reconnection. I decided to proceed to the right atrium and then proceeded to perform CTI ablation in a lateral aspect to avoid right coronary artery. NTG was given ahead and ablation performed to complete CTI line. Bidirectional block was demonstrated with pacing revealing a timing of 167ms. The ICE catheter was used to reexamine the intracardiac anatomy and this showed no pericardial effusion. ICE catheter and all catheters were removed. Venous sheaths were pulled, and hemostasis achieved with Perclose sutures and Vascade closure device. Left arterial sheath was closed with Vascade seal. She was transferred to [facility] for observation. LA baseline (mmHg) 17/11 HR 54bpm LA 600ms pacing (mmHg) 19/10 LA 400ms pacing (mmHg) AHms 147, 95 HVms 54, 67 VERPms 600/340, VA condunction+ AV Wenkebach ms 570ms AH jump ms NA AVNERP ms 600/440 AERP ms 600/280 POST PROCEDURE DIAGNOSIS 1. Paroxysmal atrial fibrillation s/p PVI (WACA) with PFA. 2. CTI flutter s/p ablation with bidirectional block. 2. EP study revealing no VA conduction. 3. Normal LA voltage 4. Normal LA pressures. SPECIMEN REMOVED: None PLAN: 1. Anticoagulation after 2 hrs of sh (more content not included)... [facility] 06-13-2025 Note Patient: Connie Young Sa nchez Procedure Summary Date: 06/13/25 Room / Location: [facility] HOME COORDINATOR 1 EP / [facility] (Cath) Anesthesia Start: 0850 Anesthesia Stop: 1156 Procedure: Ablation a-fib paroxysmal Diagnosis: Paroxysmal atrial fibrillation (CMS/HCC) (Paroxysmal atrial fibrillation (CMS/HCC) [I48.0]) Providers: Rogers Catalan MD Responsible Provider: Dayo Thomson MD Anesthesia Type: general ASA Status: 3 Anesthesia Type: general Vitals Value Taken Time BP 135/56 06/13/25 13:40 Temp 36 ???C (96.8 ???F) 06/13/25 13:40 Pulse 67 06/13/25 13:40 Resp 14 06/13/25 13:40 SpO2 99 % 06/13/25 13:40 Vitals shown include unfiled device data. Anesthesia Post Evaluation Patient location during evaluation: PACU Patient participation: complete - patient participated Level of consciousness: awake Pain management: adequate Cardiovascular status: acceptable Respiratory status: acceptable Hydration status: acceptable Comments: Patient was evaluated for PACU discharge prior to leaving. Note was inputted later. HGB 6.7, discussion with cardiology and they do not want transfusion. Patient is to be admitted. Patient is hemodynamically stable and is able to be discharged from PACU per anesthesia protocol. No notable events documented. [facility] 06-13-2025 Note Patient: Connie A Sa nchez Procedure Summary Date: 06/13/25 Room / Location: [facility] HOME COORDINATOR 1 EP / [facility] (Cath) Anesthesia Start: 0850 Anesthesia Stop: Procedure: Ablation a-fib paroxysmal Diagnosis: Paroxysmal atrial fibrillation (CMS/HCC) (Paroxysmal atrial fibrillation (CMS/HCC) [I48.0]) Providers: Rogers Catalan MD Responsible Provider: Dayo Thomson MD Anesthesia Type: general ASA Status: 3 Anesthesia Post Transport Note Transport to: PACU O2 Route: nasal cannula Oxygen Flow (L/min): 2 Patient Monitor: transport monitor and direct observation Transport: uneventful Patient condition is: stable [facility] 06-13-2025 Note Patient: Connie A Sa nchez Procedure Information Anesthesia Start Date/Time: 06/13/25 0850 Procedure: Ablation a-fib paroxysmal Location: [facility] HOME COORDINATOR 1 EP / [facility] (Cath) Providers: Rogers Catalan MD Relevant Problems Anesthesia (-) History of anesthesia complications Cardio (+) Acute on chronic heart failure with preserved ejection fraction (CMS/HCC) (+) Atrial fibrillation (CMS/HCC) (+) Benign essential hypertension (+) Hypertension (+) Mitral valve insufficiency and aortic valve insufficiency /Renal (+) Chronic kidney disease Pulmonary (+) BERRY (dyspnea on exertion) Medical History[1] Surgical History[2] Social History[3] Labs Lab Results Component Value Date HGB 7.7 (L) 06/13/2025 No results found for: NA , K , CO2 , CL , BUN , CREATININE , GLUCOSE , CALCIUM Lab Results Component Value Date PT 15.2 (H) 06/13/2025 INR 1.20 (H) 06/13/2025 Encounter Date: 06/13/25 Electrocardiogram, 12-lead Result Value Ventricular Rate 63 Atrial Rate 63 AL Interval 196 QRS DURATION 78 QT Interval 440 QTC CALCULATION(BAZETT) 450 P Hollister 52 R-Hollister 18 T Wave Hollister 52 Impression Normal sinus rhythm Normal ECG No previous ECGs available No echocardiogram results found for the past 12 months Clinical information reviewed: Tobacco Allergies Meds Med Hx Surg Hx OB Status Fam Hx Soc Hx Physical Exam Airway Mallampati: III TM distance: <3 FB Neck ROM: limited Cardiovascular Rhythm: regular Rate: normal Dental Pulmonary Breath sounds clear to auscultation Neurological Abdominal Anesthesia Plan ASA 3 general (Patient chart (PMH/PSH/Social/Meds/Allergies/etc) was reviewed prior to patient interview. Afib, htn, diabetes, recent dx of cirrhosis but no ascites. Specifically discussed the risks of oral/airway instrumentation (if needed) including (but not limited to) lip, gum, and teeth trauma. This has the potential to cause significant dental damage including tooth loss. Patient expressed understanding and wished to proceed. Patient was interviewed and evaluated prior to the start of the anesthetic. Note was inputted later. ) intravenous induction Anesthetic plan and risks discussed with patient. Plan discussed with resident. Additional Equipment Requests [1] Past Medical History: Diagnosis Date ??? Abnormal ECG ??? Afib (CMS/HCC) ??? Anemia ??? Anxiety ??? Arrhythmia loop recorder ??? Atrial fibrillation (CMS/HCC) ??? AVM (arteriovenous malformation) of colon ??? C. difficile colitis ??? Cancer (CMS/HCC) uterine cancer 2012 ??? Depression ??? Diabetes mellitus (CMS/HCC) ??? GI (gastrointestinal bleed) ??? History of transfusion 03/2025 ??? Hyperlipidemia ??? Hypertension ??? Liver disease Cirrhosis [2] Past Surgical History: Procedure Laterality Date ??? APPENDECTOMY ??? CHOLECYSTECTOMY ??? COLONOSCOPY ??? HERNIA REPAIR ??? HYSTERECTOMY 2013 total ??? ROTATOR CUFF REPAIR Left ??? SHOULDER SURGERY ??? TONSILLECTOMY ??? TONSILLECTOMY ??? UPPER GASTROINTESTINAL ENDOSCOPY [3] Social History Tobacco Use ??? Smoking status: Never ??? Smokeless tobacco: Never Vaping Use ??? Vaping status: Never Used Substance Use Topics ??? Alcohol use: Not Currently ??? Drug use: Never [facility] 06-13-2025 Note Airway Date/Time: 06/13/2025 9:06 AM Reason: elective Airway not difficult General Information and Staff Patient location during procedure: OR Anesthesiologist: Dayo Thomson MD Resident/LACE ROLLER OPERATOR/CAA: Jhonathan Hernandez MD Performed: resident/LACE ROLLER OPERATOR/CAA Patient Condition Indications for airway management: anesthesia Patient position: sniffing MILS maintained throughout Sedation level: deep Final Airway Details Preoxygenated: yes Final airway type: endotracheal airway Successful airway: ETT Cuffed: yes Successful intubation technique: video laryngoscopy Adjuncts used in placement: intubating stylet Endotracheal tube insertion site: oral Blade: Haider Blade size: #3 ETT size (mm): 7.5 Cormack-Lehane Classification: grade I - full view of glottis Placement verified by: chest auscultation and capnometry Measured from: lips ETT to lips (cm): 21 Number of attempts at approach: 1 Number of other approaches attempted: 0 [facility] 05-28-2025 Note [facility] Gastroenterolog y Connie Brian is a 69 y.o. female presenting for capsule endoscopy. Connie Brian is an 69 y.o. White or [...] enteroscopy. This was done 04/24/[address] Zazueta and showed Normal examined duodenum with a [...] clear liquids in 2 hours and may have a light lunch in 4 hours, and 17 [...] in this pleasant patient???s care. Jessica Oates [facility] 04-23-2025 Note [place] Electrophysiology Consult Note [facility] Reason for visit: Afib 04/23/2025 Patient is here today for H & P and consent for ablation. Patient states she feels pretty good, some days she states she feels whipped and [...] 02/26/25 Patient here for follow up from [facility]. Patient had fluid taken off and aslo had blood transfusions. Patient states she had an at [facility]. EGD showed 3 bleeding ulcers. Patient has [...] doing well and occasionally feels palpitations. HPI: Connie Brian is a 69 y.o. year old with past medical history of Hypertension, diabetes, dyslipidemia, palpitations. She was recently seen at the [facility] for A-fib RVR as she was [...] show any evidence of reversible ischemia. below [id number] at least 4 for age, gender, hypertension, [...] on file Intimate Partner Violence: Unknown (01/12/2024) [place] Safety & Environment Fear of Current or Ex-Partner: Not on file Emotionally Abused: Not on file Physically Abused: Not on file Sexually Abused: Not on file Physically or Sexually Abused: Not on file Depression: Not on file Housing Stability: Not on file Utilities: Not on file Health Literacy: Not on file Allergies: Allergies Allergen Reactions Sulfa (Sulfona (more content not included)... [facility] 04-10-2025 Note -- Attestation signed by Damian Gomez MD at 04/10/2025 8:58 PM Seen and discussed with fellow, agree with assessment and plan. -- [facility] Gastroenterology History & Physical CHIEF COMPLAINT Chief Complaint Patient presents with Follow-up HISTORY OF PRESENT ILLNESS: Connie Brian is a 69 y.o. female with a past medical history of hypertension, diabetes mellitus for approximately 30 years, dyslipidemia, atrial fibrillation on Eliquis, and newly diagnosed liver cirrhosis, who presents for follow up. Her initial [...] cardiology recommendation in preparation for the EGD. Interval History 04/10/25 Since last [...] she received 4 units of blood and was discharged. She denies hematochezia but reports her stool is dark. She is on an iron supplement She denies alcohol use. She reports abdominal distension and early satiety. PREVIOUS LABS/IMAGING/ENDOSCOPY: EGD and Colonoscopy was done at Dr. Turpin at [facility] 11/06/2025 EGD 01/29/25: Findings: The examination [...] transfusion Hyperlipidemia Hypertension Liver disease Past Surgical Hi (more content not included)... [facility] 02-26-2025 Note [place] Electrophysiology Consult Note [facility] Reason for visit: Afib 02/26/25 Patient here for follow up from [facility]. Patient had fluid taken off and aslo had blood transfusions. Patient states she had an at [facility]. EGD showed 3 bleeding ulcers. Patient has [...] doing well and occasionally feels palpitations. HPI: Connie Brian is a 69 y.o. year old with past medical history of Hypertension, diabetes, dyslipidemia, palpitations. She was recently seen at the [facility] for A-fib RVR as she was admitted for diarrhea and palpitations. She was found to have C. difficile and was treated with antibiotics and converted to sinus rhythm on her own. She states she normally would get palpitations when she drinks caffeine and typically avoids caffeine, the day of her admission she believes she was given caffeinated coffee at [facility] and then began experience palpitations while already dealing with her diarrhea so she was seen by ER. She had also been experiencing lower extremity swelling and was diuresed and patient which has resolved. She for some reason was deferred to [facility] for follow up and stress test [...] show any evidence of reversible ischemia. below [id number] at least 4 for age, gender, hypertension, [...] 0 diclofenac (Voltaren) (more content not included)... [facility] 02-12-2025 Evaluation note Diagnosis Onset Date Resolution Skin tear of left lower leg without complication noneactive February 12, 2025 12:04pm Skin tear of left forearm without complication noneactive February 12, 2025 12:04pm [facility] Work Phone: 1(742) 287-197003-11-2025 NotePatient: Connie Brian Procedure Summary Date: 01/29/25 Room / Location: [facility] Anesthesia Start: 1155 Anesthesia Stop: 1223 [...] PACU per anesthesia protocol. No notable events documented.[facility]03-11-2025 Note Patient: Connie Brian Procedure Information Date/Time: 01/29/25 1200 Scheduled providers: Jesus Zazueta MD; Henry Bull MD; KAILA Jeronimo Procedure: EGD Location: [facility] Relevant Problems Cardio ECHO 2023 LEFT [...] risks discussed with patient. Plan discussed with KAILA. [facility] Attestation signed by Damian Gomez MD at 01/23/2025 3:48 PM Seen and discussed with fellow, agree with assessment and plan. [facility] Gastroenterology New Patient Visit - History & Physical CHIEF COMPLAINT Chief Complaint Patient presents with New Patient EGD scheduled, was at [facility] and sent for an EGD but also Cirrhosis work up. She was never told she has Cirrhisis but overheard a Doctor say it to another Doctor. HISTORY OF PRESENT ILLNESS: Connie Brian is a 69 y.o. female with [...] LABS/IMAGING/ENDOSCOPY: EGD and Colonoscopy was done in [facility] 11/06/2025 HISTORY: Problem list: Patient Active Problem [...] Medications: Current Outpatient Medic (more content not included)...[facility]01-28-2025 NoteUT Electrophysiology Consult Note [facility] Reason for visit: Patient here for follow up [facility] per Dr. Espinoza. 12/19/24 She was admitted [...] doing well and occasionally feels palpitations. HPI: Connie Brian is a 69 y.o. year old with past medical history of Hypertension, diabetes, dyslipidemia, palpitations. She was recently seen at the [facility] for A-fib RVR as she was admitted for diarrhea and palpitations. She was found to have C. difficile and was treated with antibiotics and converted to sinus rhythm on her own. She states she normally would get palpitations when she drinks caffeine and typically avoids caffeine, the day of her admission she believes she was given caffeinated coffee at [facility] and then began experience palpitations [...] show any evidence of reversible ischemia. below [id number] at least 4 for age, gender, hypertension, [...] on file Intimate Partner Violence: Unknown (01/12/2024) [place] Safety & Environment Fear of Current or [...] the morning. venlafaxine XR (more content not included)...[facility] 11-09-2024 NoteUT Cardiology - [facility] Subjective Connie Brian is a 69 y.o. year old [...] RVR when she was admitted to the [facility] with diarrhea due to C. difficile [...] 83 Ht 1.676 m (more content not included)...[facility] 10-03-2024 NoteGeneral Surgery Office/Clinic Note Chief Complaint consultation for anemia HPI [...] fibrillation, on Eliquis, htn, hypercholesterolemia, DMII, CKD, mitraland aortic valve incompetence, GERD, referred for anemia; [...] swallowing difficulties, no hearing loss, no ear infection(s),no nose bleeds. Cardiovascular: normal blood pressure, no [...] Eliquis 5 mg oral (more content not included)...[facility] Comment on above:Result Comment: Electronically Signed By: JOSE ALBERTO MARRERO, Manoj Hernandez.cruz\Date and Time Signed: 10/03/24 14:54 [id number] NoteLOOP IMPLANT PROCEDURE NOTE DATE OF PROCEDURE: 08/06/24 PERFORMING PHYSICIAN: Dr. Rogers Catalan BUSINESS AREA MANAGER: REJI INDICATIONS FOR PROCEDURE: 1. SVT/AF [...] the sternum on the left using the Sharelook tool. The loop recorder was then injected [...] wet the incision. Rogers Catalan MD Cardiac Electrophysiology.[facility]08-13-2024 NoteUT Electrophysiology Consult Note [facility] Reason for visit: Afib 07/03/24 Pt is doing well and occasionally feels palpitations. HPI: Connie Brian is a 68 y.o. year old with past medical history of Hypertension, diabetes, dyslipidemia, palpitations. She was recently seen at the [facility] for A-fib RVR as she was admitted for diarrhea and palpitations. She was found to have C. difficile and was treated with antibiotics and converted to sinus rhythm on her own. She states she normally would get palpitations when she drinks caffeine and typically avoids caffeine, the day of her admission she believes she was given caffeinated coffee at [facility] and then began experience palpitations while already dealing with her diarrhea so she was seen by ER. She had also been experiencing lower extremity swelling and was diuresed and patient which has resolved. She for some reason was deferred to [facility] for follow up and stress test [...] show any evidence of reversible ischemia. below [id number] at least 4 for age, gender, hypertension, [...] fibrillation (CMS/HCC) C. difficile colitis Diabetes mellitus ([facility]) Hyperlipidemia Hypertension PSH: Past Surgical History: Procedure [...] on file Intimate Partner Violence: Unknown (01/12/2024) [place] Safety & Environment Fear of Current or [...] lesions on external ear (more content not included)...[facility]03-29-2022 Evaluation note* Encounter Date Diagnosis Assessment Notes Treatment Notes Treatment Clinical Notes Jan, Contact with and (suspected) exposure [...] exam and duration of symptoms. May use [place] or Flonase as directed. May use Zofran [...] Patient care instructions given in writting by [facility] Care At Home document [employer] Other 12-06-2021 Evaluation note* Encounter Date Diagnosis [...] Patient care instructions given in writting by [facility] Care At Home document. [employer] Other Evaluation + Plan note No data available for this section [facility] [place] Evaluation noteNo assessment information available [facility] Work Phone: History general Narrative - Reported* Type Description Date Medical History Diabetes Medical History HTN (hypertension) Medical History Anxiety Medical History Uterine cancer Surgical History hysterectomy Surgical History C section Surgical History tonsillectomy Surgical History appendectomy Surgical History cholecystectomy Surgical History colonoscopy Surgical History biopsy Hospitalization History pneumonia Hospitalization History see above [employer] Other Hospital Discharge instructions No data available for this section [facility] Gatheredtable Progress note No data available for this section [facility] Gatheredtable Summary Purpose Family History No Family History [...] knee scrape after fallFebruary 12, 2025 12:04pm Chief Complaint Admit Date right arm/ knee scrape after fallFebruary 12, 2025 12:04pm Unknown March 05, 2025 5:5 7pm Reason for Visit Admit Date Skin tear of left lower leg without comp lication February 12, 2025 12:04pm Skin tear of left forearm without compli cation February 12, 2025 12:04pm Additional Source Comments REASON FOR VISIT (unrecogniz ed section and content) #14 RED BUICK, EXPOSED, COVI D Nurse Visit- Self PayBLACK CRV, B/A, SOB, COUGH INFORMATION SOURCE (unrecogn ized section and content) DATE CREATED AUTHOR 10/01/2022 [facility] DATE CREATED AUTHOR AUTHOR'S ORGANIZ ATION [facility]20[facility] DATE CREATED AUTHOR AUTHOR'S ORGANIZ ATION 03/08/2025 [facility] DATE CREATED AUTHOR AUTHOR'S ORGANIZ ATION 04/26/2025 [facility] DATE CREATED AUTHOR AUTHOR'S ORGANIZ ATION 06/29/2025 [facility] Patient Care team informatio n (unrecognized section and content) Team Status: Active Member Role Status Dates NON STAFF Primary Care Provider Active Team Status: Inactive Member Role Status Dates Howard Johnston DO Attending Provider Active Start: November 14, 2024 End: November 14, 2024 Team Status: Inactive Member Role Status Dates Lon Del Rosario MD Attending Provider Active Start: [...] February 12, 2025 End: February 12, 2025 Team Status: Inactive Member Role Status Dates Maryjane Valencia MD Attending Provider Active Sta rt: March 05, 2025 End: March 05, 2025 Goals (unrecognized section and content) Goals [...] BE BASED ON THE PRIMARY CLINICAL RECORDS. [employer] [facility]. provides no warranty or guarantee of the accuracy or completeness of information in this document.
[2025-07-11 12:59] LABS: Immature Granulocytes Abs Auto 0.02 10^3/uL (0.00-0.03); Immature Granulocytes Pct Auto 0.4 % (0.0-0.5); Lymphocytes Absolute Auto 1.7 10^3/uL (1.2-3.8); Mean Corpuscular HGB Conc 28.5 g/dL (29.9-35.2); Mean Corpuscular Hemoglobin 22.4 pg (26.7-34.0); Mean Corpuscular Volume 78.6 fL (81.0-99.0); Platelet Count 193 10^3/uL (150-450); Red Blood Count 2.81 10^6/uL (4.20-5.40); White Blood Count 4.7 10^3/uL (4.0-11.0)
[2025-07-11 13:06] LABS: Hematocrit 22.1 % (36.0-48.0); Hemoglobin 6.3 g/dL (12.0-16.0)
[2025-07-11 13:21] LABS: Alanine Aminotransferase 35 U/L (14-59); Albumin Globulin Ratio 0.7; Albumin Level 2.9 g/dL (3.4-5.0); Alkaline Phosphatase 112 U/L (46-116); Anion Gap 16.4; Aspartate Amino Transferase 26 U/L (15-37); Blood Urea Nitrogen 40.0 mg/dL (7.0-18.0); Calcium 8.4 mg/dL (8.5-10.1); Carbon Dioxide 25.0 mmol/L (21.0-32.0); Chloride 105 mmol/L (98-107); Estimated GFR (African America 40 (>=60 mL/min/1.73m^2); Estimated GFR (Non-African Ame 33 (>=60 mL/min/1.73m^2); Globulin 3.9 g/dL; Glucose 459 mg/dL (74-106); Potassium 4.4 mmol/L (3.5-5.1); Sodium 142 mmol/L (136-145); Total Protein 6.8 g/dL (6.4-8.2)
[2025-07-11 14:35] LABS: Iron 17.0 ug/dL (50.0-170.0); Percent Iron Saturation 3.7 %; Total Iron Binding Capacity 459.0 ug/dL (250.0-450.0)
[2025-07-11 14:54] LABS: Ferritin 4.0 ng/mL (8.0-252.0)
[2025-07-12 04:08] LABS: Transferrin 377 mg/dL (192-364)
== END 2025-07-11 12:38 | disposition home or self-care (01) ==
PROVIDERS: PCP Family Medicine; Visit Provider Nurse Practitioner Family
DX: I48.19 Other persistent atrial fibrillation (principal); D64.9 Anemia, unspecified
CPT/HCPCS: 36415; 80053; 82728; 83540; 83550; 84466; 85025

== ENCOUNTER 2025-07-11 15:22 | Inpatient (IN) | payer MEDICARE, SELFPAY ==
[2025-07-11] VITALS (26 sets, daily range): BP systolic 104–133; BP diastolic 46–62; PULSE 6–74; TEMP 36.5–36.7; O2SAT 98–100; BMI 30.2
--- NOTE | 2025-07-11 15:47 | ECG_ITS ---
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
--- NOTE | 2025-07-11 15:47 | ED.GENADUL1 ---
HPI HPI - General Adult General Chief complaint: Recheck/Abnormal Lab/Rx Stated complaint: LOW BLOOD COUNT PER PCP Time Seen by Provider: 07/11/25 15:24 Source: patient and family Mode of arrival: Wheelchair Limitations: no limitations History of Present Illness HPI narrative: 69 year old female presents to the ED for low hemoglobin. Reports fatigue, feeling lightheaded for the past week. She mentioned it at her cardiology appointment today so her brim blocker ordered outpatient lab work. Her Hgb was 6.3. She has had dark stools for the past 2 weeks. States she has received many blood transfusions due to anemia. She has been on Eliquis since October, due to a-fib. She has hx cirrhosis of the liver with ascites. States she has had a recent colonoscopy and endoscopy. Denies fever, chills, SOB, abd pain, CP. Related Data Home Medications ?Medication ?Instructions ?Recorded ?Confirmed metformin 500 mg tablet 1,000 mg PO BID 05/23/23 07/11/25 ramipril 10 mg capsule 10 mg PO DAILY 05/23/23 07/11/25 simvastatin 20 mg tablet 20 mg PO DAILY 05/23/23 07/11/25 venlafaxine 75 mg capsule,extended 75 mg PO DAILY 05/23/23 07/11/25 release 24 hr Previous Rx's ?Medication ?Instructions ?Recorded apixaban 5 mg tablet (Eliquis) 5 mg PO BID #60 tabs 05/25/23 magnesium oxide 400 mg (241.3 mg 400 mg PO BID #60 tabs 05/25/23 magnesium) tablet lancets #200 ea 11/02/24 furosemide 40 mg tablet (Lasix) 40 mg PO DAILY #30 tabs 03/07/25 pantoprazole 40 mg tablet,delayed 40 mg PO BID #60 tabs 03/07/25 release (Protonix) spironolactone 25 mg tablet 50 mg (2 x 25 mg) PO QD #30 tabs 03/07/25 sucralfate 1 gram tablet 1 g PO ACHS #120 tabs 03/07/25 Allergies Allergy/AdvReac Type Severity Reaction Status Date / Time Sulfa (Sulfonamide AdvReac Mild Hives Verified 07/11/25 15:31 Antibiotics) Opioid HPI Opioid Management Most Recent Opioid Data: Last Pain Scale 0 11/19/24, 06:16 Last Pain Intensity 5 11/16/24, 08:29 Last ORT Total Score 0 03/05/25, 17:47 Last ORT Risk Category Low Risk 03/05/25, 17:47 Review of Systems ROS Constitutional Reports: fatigue; Denies: fever or chills Cardiovascular Reports: lightheadedness; Denies: chest pain Respiratory Denies: shortness of breath Gastrointestinal Reports: other (dark stool); Denies: abdominal pain, nausea, vomiting, diarrhea or constipation Musculoskeletal Denies: back pain Neurological Denies: headache, weakness in extremities or dizziness [facility] Medical History Edema of both lower legs ?R60.0 - Localized edema (ICD-10) Pleural effusion ?J90 - Pleural effusion, not elsewhere classified (ICD-10) Cirrhosis of liver with ascites ?K74.60 - Unspecified cirrhosis of liver (ICD-10) ?R18.8 - Other ascites (ICD-10) Acute hyperkalemia ?E87.5 - Hyperkalemia (ICD-10) Acute kidney failure ?N17.9 - Acute kidney failure, unspecified (ICD-10) Symptomatic anemia ?D64.9 - Anemia, unspecified (ICD-10) Acute dehydration ?E86.0 - Dehydration (ICD-10) Acute kidney injury ?N17.9 - Acute kidney failure, unspecified (ICD-10) Septic shock ?A41.9 - Sepsis, unspecified organism (ICD-10) ?R65.21 - Severe sepsis with septic shock (ICD-10) Atrial fibrillation with rapid ventricular response ?I48.91 - Unspecified atrial fibrillation (ICD-10) Sepsis ?A41.9 - Sepsis, unspecified organism (ICD-10) Hypertension ?I10 - Essential (primary) hypertension (ICD-10) Diabetes ?E11.9 - Type 2 diabetes mellitus without complications (ICD-10) Dyslipidemia ?E78.5 - Hyperlipidemia, unspecified (ICD-10) Hypomagnesemia ?E83.42 - Hypomagnesemia (ICD-10) Acute hyperglycemia ?R73.9 - Hyperglycemia, unspecified (ICD-10) Cervical cancer ?C53.9 - Malignant neoplasm of cervix uteri, unspecified (ICD-10) Osteoarthritis ?M19.90 - Unspecified osteoarthritis, unspecified site (ICD-10) Sleep apnea ?G47.30 - Sleep apnea, unspecified (ICD-10) Kidney stones ?N20.0 - Calculus of kidney (ICD-10) Cataract ?H26.9 - Unspecified cataract (ICD-10) Palpitations ?R00.2 - Palpitations (ICD-10) Anemia ?D64.9 - Anemia, unspecified (ICD-10) Rotator cuff arthropathy of left shoulder ?M12.812 - Other specific arthropathies, not elsewhere classified, left shoulder (ICD-10) Atrial fibrillation with rapid ventricular response ?I48.91 - Unspecified atrial fibrillation (ICD-10) Surgical History H/O repair of rotator cuff ?Z98.890 - Other specified postprocedural states (ICD-10) H/O section ?Z98.891 - History of uterine scar from previous surgery (ICD-10) History of tonsillectomy ?Z90.89 - Acquired absence of other organs (ICD-10) History of cholecystectomy ?Z90.49 - Acquired absence of other specified parts of digestive tract (ICD-10) History of appendectomy ?Z90.49 - Acquired absence of other specified parts of digestive tract (ICD-10) H/O: hysterectomy ?Z90.710 - Acquired absence of both cervix and uterus (ICD-10) Family History Grandmother Family history of cancer Father Family history of diabetes mellitus Grandfather Family history of cancer Brother Family history of hypertension Social History Within the past year, how often did you have a drink containing alcohol: monthly or less Within the past year, how often did you have six or more drinks on one occasion: never Smoking status: Never smoker Non-prescribed substance use: denies use 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 Highest level of school completed/degree received: high school graduate Do you want help with school or training: No Are you now , , , , never or living with a partner: never In a typical week, how many times do you talk on the telephone with family, friends, or neighbors: 3 or more times per week How often do you get together with friends or relatives: once per week How often do you attend alevism or shinto services: 4 or more times per year Do you belong to any clubs or organizations such as alevism groups unions, fraternal or athletic groups, or school groups: yes Total score: 3 Score interpretation: A score of greater than or equal to 2 indicates the lowest level of social isolation. Little interest or pleasure in doing things: not at all Feeling down, depressed, or hopeless: not at all Feel stressed/tense/nervous/anxious/difficulty sleeping: not at all Life stressors: recent of family or friend Due to disability, difficulty making decisions: No Exam Constitutional Vital Signs, click to edit/add: Last Vital Signs Temp 98.1 F 07/11/25 15:27 Pulse 71 07/11/25 15:27 Resp 16 07/11/25 15:27 BP 122/46 L 07/11/25 15:27 Pulse Ox 100 07/11/25 15:27 O2 Del Method Room Air 07/11/25 15:27 HENMT Common normals: moist oral mucous membranes Eye Common normals: conjunctivae normal and no scleral icterus Neck & C-Spine Common normals: supple Chest Chest: symmetrical chest wall rise Cardio Common normals: regular rate Rhythm: abnormal rhythm irregularly irregular GI Common normals: Normal to inspection, nondistended, normoactive bowel sounds present, soft to palpation and non-tender Rectal Exam - Female: heme negative stool; no external hemorrhoid(s) Other: No gross bleeding noted. Neuro Common normals: oriented x3 and moves all extremities Sensorium/orientation: awake and alert Speech: speech normal Course Vital Signs Vital signs: Vital Signs Temperature 98.1 F 07/11/25 15:27 Pulse Rate 71 07/11/25 15:27 Respiratory Rate 16 07/11/25 15:27 Blood Pressure 122/46 L 07/11/25 15:27 Pulse Oximetry 100 07/11/25 15:27 Oxygen Delivery Method Room Air 07/11/25 15:27 Temperature 98.1 F 07/11/25 15:27 Pulse Rate 71 07/11/25 15:27 Respiratory Rate 16 07/11/25 15:27 Blood Pressure 122/46 L 07/11/25 15:27 Pulse Oximetry 100 07/11/25 15:27 Oxygen Delivery Method Room Air 07/11/25 15:27 Medical Decision Making MDM Narrative Medical decision making narrative: Hgb was 6.3. Hemoccult was negative. Findings were discussed. pRBCs were ordered. The patient has had multiple transfusions in the past. The blood will take some time to receive due to the presence of antibodies. She will be admitted for further evaluation and treatment. I spoke with Dr. Hoang who accepted the patient for admission. A full and detailed handoff report was given. Blood sugar was elevated; she reported she ate just prior to arrival in the ED. Medical Records Medical records reviewed: Yes I reviewed the patient's medical records Lab Data Lab results reviewed: Yes I reviewed the patient's lab results Labs: Lab Results 07/11/25 07/11/25 Range/Units 15:35 15:40 WBC 5.1 (4.0-11.0) 10^3/uL RBC 2.84 L (4.20-5.40) 10^6/uL Hgb 6.3 L* (12.0-16.0) g/dL Hct 22.3 L* (36.0-48.0) % MCV 78.5 L (81.0-99.0) fL MCH 22.2 L (26.7-34.0) pg MCHC 28.3 L (29.9-35.2) g/dL RDW 17.4 H (11.0-15.0) % Plt Count 191 (150-450) 10^3/uL MPV 10.7 (9.5-13.5) fL Neut % (Auto) 59.6 (43.0-75.0) % Lymph % (Auto) 29.7 (20.5-60.0) % [place] % (Auto) 7.0 (1.7-12.0) % Eos % (Auto) 2.9 (0.9-7.0) % Baso % (Auto) 0.6 (0.2-2.0) % Neut # (Auto) 3.1 (1.4-6.5) 10^3/uL Lymph # (Auto) 1.5 (1.2-3.8) 10^3/uL [place] # (Auto) 0.4 (0.3-0.8) 10^3/uL Eos # (Auto) 0.2 (0.0-0.7) 10^3/uL Baso # (Auto) 0.0 (0.0-0.1) 10^3/uL Abs Immat Gran (auto) 0.01 (0.00-0.03) 10^3/uL Imm/Tot Granulo (auto) 0.2 (0.0-0.5) % PT 10.9 (9.0-11.6) sec INR 1.03 APTT 26.5 (22.3-36.2) sec Sodium 140 (136-145) mmol/L Potassium 4.5 (3.5-5.1) mmol/L Chloride 104 (98-107) mmol/L Carbon Dioxide 25.9 (21.0-32.0) mmol/L Anion Gap 14.6 BUN 40.0 H (7.0-18.0) mg/dL Creatinine 1.60 H (0.55-1.02) mg/dL Est GFR ( Amer) 39 L (>=60 mL/min/1.73m^2) Est GFR (Non-Af Amer) 32 L (>=60 mL/min/1.73m^2) BUN/Creatinine Ratio 25.0 Glucose 433 H (74-106) mg/dL Calcium 8.2 L (8.5-10.1) mg/dL Total Bilirubin 0.8 (0.2-1.0) mg/dL AST 28 (15-37) U/L ALT 37 (14-59) U/L Alkaline Phosphatase 112 (46-116) U/L Total Protein 6.9 (6.4-8.2) g/dL Albumin 2.9 L (3.4-5.0) g/dL Globulin 4.0 g/dL Albumin/Globulin Ratio 0.7 Stool Occult Blood Negative Blood Type O Positive Antibody Screen Positive Discharge Plan Discharge Chief Complaint: Recheck/Abnormal Lab/Rx Clinical Impression: Anemia, Symptomatic anemia Patient Disposition: Admitted As Inpatient Time of Disposition Decision: 17:35 Condition: Good
[2025-07-11 15:50] LABS: Immature Granulocytes Abs Auto 0.01 10^3/uL (0.00-0.03); Immature Granulocytes Pct Auto 0.2 % (0.0-0.5); Lymphocytes Absolute Auto 1.5 10^3/uL (1.2-3.8); Mean Corpuscular HGB Conc 28.3 g/dL (29.9-35.2); Mean Corpuscular Hemoglobin 22.2 pg (26.7-34.0); Mean Corpuscular Volume 78.5 fL (81.0-99.0); Platelet Count 191 10^3/uL (150-450); Red Blood Count 2.84 10^6/uL (4.20-5.40); White Blood Count 5.1 10^3/uL (4.0-11.0)
[2025-07-11 15:54] LABS: Hematocrit 22.3 % (36.0-48.0); Hemoglobin 6.3 g/dL (12.0-16.0)
[2025-07-11 16:00] LABS: Alanine Aminotransferase 37 U/L (14-59); Albumin Globulin Ratio 0.7; Albumin Level 2.9 g/dL (3.4-5.0); Alkaline Phosphatase 112 U/L (46-116); Anion Gap 14.6; Aspartate Amino Transferase 28 U/L (15-37); Blood Urea Nitrogen 40.0 mg/dL (7.0-18.0); Calcium 8.2 mg/dL (8.5-10.1); Carbon Dioxide 25.9 mmol/L (21.0-32.0); Chloride 104 mmol/L (98-107); Estimated GFR (African America 39 (>=60 mL/min/1.73m^2); Estimated GFR (Non-African Ame 32 (>=60 mL/min/1.73m^2); Globulin 4.0 g/dL; Glucose 433 mg/dL (74-106); Potassium 4.5 mmol/L (3.5-5.1); Sodium 140 mmol/L (136-145); Total Protein 6.9 g/dL (6.4-8.2)
--- NOTE | 2025-07-11 16:00 | PC.NURSE ---
1545 - pt brought in for low hgb today, 6.3. She was getting her labs checked by dr suárez d/t a week of increased weakness and fatigue. denies any SOB, chest pain, N/V or dizziness. Does admit to having dark stools over the past 2 weeks. assisted CERTIFIED MEDICAL ASSISTANT at bedside with rectal exam
[2025-07-11 16:05] LABS: INR 1.03; Partial Thromboplastin Time 26.5 sec (22.3-36.2); Prothrombin Time 10.9 sec (9.0-11.6)
--- OUTSIDE RECORDS SUMMARY | 2025-07-11 17:01 | XMS_ITS | CCD ---
Author Organization [facility] Care Team Providers Care Pneumatic Press Hand Name Role Phone Soco Hernandez Unavailable [facility] [...] Consulting Unavailable Maryjane Valencia Primary Care Physician [phone] Manoj DAMON Attending Unavailable Maryjane Valencia Referring Unavailable Manoj DAMON Attending Unavailable Manoj DAMON Attending Unavailable Howard Johnston DO Attending Provider Lon Del Rosario MD Attending Provider Maryjane Valencia Admitting Unavailable Maryjane Valencia Attending Unavailable Manoj Damon Admitting Unavailable Manoj Damon Attending Unavailable Howard Johnston Admitting Unavailable Howard Johnston Attending Unavailable Lon Del Rosario Admitting Unavailable Lon Del Rosario Attending Unavailable Maryjane Valencia MD Attending Provider [phone] DAMIAN GOMEZ Referring Unavailable MARYJANE VALENCIA Primary [...] JOSE G, ROGERS Admitting Unavailable JOSE G, ROGRES Attending Unavailable NAWRAS, JESUS Admitting Unavailable NAWRAS, JESUS Attending Unavailable NAWRAS, JESUS Referring Unavailable JOSE G, ROGERS Attending Unavailable LAYJESSICA Attending Unavailable NAWRAS, JESUS Referring Unavailable JOSE G, ROGERS Referring Unavailable JOSE G, ROGERS Referring Unavailable SODEMAN, DAMIAN Attending Unavailable JOSE G, ROGERS Attending Unavailable JOSE G, ROGERS Attending Unavailable NAWRAS, JESUS Referring Unavailable JOSE G, ROGERS Referring Unavailable ALEXIS, AYDIN Attending Unavailable JOSE G, ROGERS Attending Unavailable SODEMAN, DAMIAN Attending Unavailable ALEXIS, AYDIN Referring Unavailable JOSE G, ROGERS Referring Unavailable JOSE G, ROGERS Referring Unavailable Allergies Allergy Classification Reported Allergen(s) Allergy Type Date of Onset Reaction(s) Facility (3 sources) Sulfacetamide Drug Allergy 2 [place] (1 source) Sulfonamides (Antibiotic) Drug allergy (disorder) 8 [facility] Repository (3 sources) Sulfonamides (Antibiotic); Translations: [sulfa drugs] Drug allergy Weal (disorder) [facility] (5 sources) Sulfonamides (Antibiotic); Translations: [Sulfa (Sulfonamide Antibiotics)] Allergy to substance 9 [facility] (1 source) Sulfacetamide Drug Allergy 2 [facility] Repository Medications Current Medications Medication Drug Class(es) Dates Sig (Normalized) Sig (Original) [id number] 200 actuat albuterol 0.09 mg/actuat metered dose [...] 1.5 mg/ml oral solution (1 source) Uncompetitive X-wefbym-L-aspartate Receptor Antagonist, Sigma-1 Agonist Start: 02-17-20 take 10 mL by mouth every eight hours Delphi DM 7.5-7.5 MG/5ML 10 mL Orally every [...] Start: 04-28-2020 take 2 tablets by mo [facility] twice daily metformin 500 mg Tab [...] Start: 04-28-2020 take 1 capsule by mo [facility] once daily ramipril 10 mg Cap 10 mg = 1 cap(s), Oral, Daily, Refills(s) 0 Start Date: 04/28/20 Status: Ordered simvastatin 20 mg oral tablet (5 sources) HMG-CoA Reductase Inhibitor Start: 02-12-2025 take 1 tablet by mouth once daily Simvastatin 20 mg tablet Active 20 MG PO Daily February 12, 2025 12:00am Start: 04-28-2020 [facility] daily at bedtime simvastatin 20 [...] 12:00am Start: 04-28-2020 take 1 capsule by [facility] once daily venlafaxine 75 mg Cap-ER [...] every six hours as needed for pain [place] 5-325 MG 1 tablet Orally every 6 hrs as needed for pain Jun, Not-Taking Start: 07-09-2015 take 1 tablet by abelino th every six hours as needed for pain [place] 5-325 MG 1 tablet Orally every 6 [...] Interpretation Reference Range Facility Telephoneon 06-28-2025 Telephone [id number] Connie Brian 1955 F Date Provider Department Center 06/28/2025 Juan-IZABELA OSMAN [facility] Family History Problem Relation Age of Onset No Known Problems Mother Diabetes Father No Known Problems Sister Heart disease Brother Family Status - Relation Status Age at Mother Father Sister Alive Brother Reason for Visit and Comments: f/u post ablation [Other] Normal [facility] 36on 06-17-2025 36 Patient contacted regarding normal VCE results. No indications for reason for anemia. Partner asked why she continues to be anemic. Advised that there is no GI reason for anemia and to consult with PCP for possible Hematology referral for further evaluation. Expressed inderstanding [facility] 30on 06-15-2025 30 The patient is Moderately Stable - Low risk of patient condition declining or worsening The patient's goals for the shift include Comfort and rest The clinical goals for the shift include VSS and safety [facility] 30 The patient is Moderately [...] and behaviors that affect risk of falls [place] fall precautions as indicated by assessment Educate [...] and prevent overall improvement and discharge Normal [facility] DSon 06-15-2025 DS Admission Admitted 06/13/2025 for [...] Your Medications These medications were sent to [id number] [address] [place] [phone] furosemide 20 mg tablet magnesium oxide 400 [...] = 4) episode of afib RVR 2023 ([facility]), diabetes, and newly diagnosed liver cirrhosis [...] lethargic ye (more content not included)... Normal [facility] DS Delete, note made in error Normal [facility] POCT GLUCOSE METER UNSOLICIT ED RESULTSon 06-15-2025 Glucose [Mass/Vol] 262 mg/dL High 70-105 [facility] Comment on above: Order Comment: Waive d Testing in the ED is performed under the ED CLIA certificate #[id number]. Result Comment: clar com Performed By: #### L [id number] #### [facility] ([facility]) [address] [place] [address] Glucose [Mass/Vol] 259 mg/dL High 70-105 [facility] Comment on above: Order Comment: Waive d Testing in the ED is performed under the ED CLIA certificate #[id number]. Result Comment: clar com Performed By: #### L [id number] #### [facility] ([facility]) [address] [place] [address] Glucose [Mass/Vol] 237 mg/dL High 70-105 [facility] Comment on above: Order Comment: Waive d Testing in the ED is performed under the ED CLIA certificate #[id number]. Result Comment: [email or web address] Performed By: #### L [id number] #### [facility] ([facility]) [address] [place] [address] 30on 06-14-2025 30 The patient is Moderately Stable - Low risk of patient condition declining or worsening The patient's goals for the shift include Comfort and rest The clinical goals for the shift include VSS and safety Normal [facility] BILIRUBIN, DIRECTon 06-14-20 25 Magnesium [Mass/Vol] 0.1 mg/dL Normal 0-0.2 [facility] Comment on above: Performed By: #### L [id number] #### [facility] ([facility]) [address] [place] [address] BILIRUBIN, TOTALon 5 Bilirubin [Mass/Vol] 0.9 mg/dL Normal 0.3-1.0 [facility] Comment on above: Performed By: #### L [id number] #### [facility] ([facility]) [address] [place] [address] CBCon 06-14-2025 Erythrocyte distribution width (RBC) [Ratio] 16.5 % High 11.5-15.0 [facility] Comment on above: Performed By: #### L [id number] #### [facility] [address] [place] [address] ERYTHROCYTE MEAN CORPUSCULAR HEMOGLOBIN CONCENTRATION (G/DL) BY AUTOMATED 30.4 g/dL Low 32.0-35.0 [facility] Comment on above: Performed By: #### L [id number] #### [facility] ([facility]) [address] [place] [address] Hematocrit (Bld) [Volume fraction] 24.0 % Low 36.0-45.0 [facility] Comment on above: Performed By: #### L [id number] #### [facility] ([facility]) [address] [place] [address] Hemoglobin (Bld) [Mass/Vol] 7.3 g/dL Low 12.0-15.0 [facility] Comment on above: Performed By: #### L [id number] #### [facility] [address] [place] [address] MCH (RBC) [Entitic mass] 23.2 pg Low 27.0-33.0 [facility] Comment on above: Performed By: #### L [id number] #### [facility] [address] [place] [address] MCV (RBC) [Entitic vol] 76.2 fL Low 82.0-98.0 [facility] Comment on above: Performed By: #### L [id number] #### [facility] [address] [place] [address] PLATELETS (10*3/UL) IN BLOOD AUTOMATED COUNT 176 10*3/uL Normal 150-400 [facility] Comment on above: Performed By: #### L [id number] #### [facility] [address] [place] [address] RBC (Bld) [#/Vol] 3.15 10*6/uL Low 3.80-5.00 [facility] Comment on above: Performed By: #### L [id number] #### [facility] ([facility]) [address] [place] [address] WBC (Bld) [#/Vol] 7.00 10*3/uL Normal 4.00-10.60 [facility] Comment on above: Performed By: #### L [id number] #### [facility] ([facility]) [address] [place] [address] DSon 06-14-2025 DS Admission Admitted 06/13/2025 for [...] Your Medications These medications were sent to [id number] - [place], [place] - [address] [facility] AT [address] [phone] furosemide 20 mg tablet magnesium oxide 400 [...] = 4) episode of afib RVR 2023 ([facility]), diabetes, and newly diagnosed liver cirrhosis [...] Physical Exam (more content not included)... Normal [facility] HEMOGLOBIN AND HEMATOCRIT, B ELMOODon 06-14-2025 Hematocrit (Bld) [Volume fraction] 23.5 % Low 36.0-45.0 [facility] Comment on above: Performed By: #### L [id number] #### [facility] ([facility]) [address] [place] [address] Hemoglobin (Bld) [Mass/Vol] 7.2 g/dL Low 12.0-15.0 [facility] Comment on above: Performed By: #### L [id number] #### [facility] ([facility]) [address] [place] [address] LACTATE DEHYDROGENASEon 05-22 LACTATE DEHYDROGENASE (U/L) IN SER/PLAS BY LAC->PYR RXN 267 U/L Normal 140-271 [facility] Comment on above: Performed By: #### L [id number] #### [facility] ([facility]) [address] [place] [address] NURSNOTEon 06-14-2025 NURSNOTE The following events where [...] Liang CNP responded Nurys, this we be oxidation engineer fellow taking over. Let me see who it is. Normal [facility] POCT GLUCOSE METER UNSOLICIT ED RESULTSon 06-14-2025 Glucose [Mass/Vol] 283 mg/dL High 70-105 [facility] Comment on above: Order Comment: Waive d Testing in the ED is performed under the ED CLIA certificate #[id number]. Result Comment: [email or web address] [email or web address] Performed By: #### L [id number] ####[facility] ([facility])[address] [place] [address] Glucose [Mass/Vol] 400 mg/dL High 70-105 [facility] Comment on above: Order Comment: Waive d Testing in the ED is performed under the ED CLIA certificate #[id number]. Result Comment: bals [email or web address] Performed By: #### L [id number] #### [facility] ([facility]) [address] [place] [address] Glucose [Mass/Vol] 435 mg/dL High 70-105 [facility] Comment on above: Order Comment: Waive d Testing in the ED is performed under the ED CLIA certificate #[id number]. Result Comment: clar com Performed By: #### L [id number] #### [facility] ([facility]) [address] [place] [address] 30on 06-13-2025 30 The patient is Moderately [...] and behaviors that affect risk of falls [place] fall precautions as indicated by assessment Educate [...] and prevent overall improvement and discharge Normal [facility] 30 The patient is Moderately Stable [...] and maintained or improved Outcome: Progressing Normal [facility] 36on 06-13-2025 36 Emeka from [facility] lab called to report a critical lab for patient. Lab was reported to our RN MIA who will contact patient. Normal [facility] ANTI C3 DATon 06-13-2025 ANTI C3 ERICKA Negative Normal [facility] Comment on above: Performed By: #### L [id number] #### [facility] ([facility]) [address] [place] [address] ANTI IGG DATon 06-13-2025 ANTI IGG ERICKA Negative Normal [facility] Comment on above: Performed By: #### L [id number] #### [facility] , ANTIBODY IDENTIFICATIONon ANTIBODY IDENTIFICATION K [facility] Comment on above: Performed By: #### L [id number] #### [facility] , Anesthesiaon 06-13-2025 Anesthesia [id number] Connie Brian 1955 F Date Provider Department [place] 06/13/2025 DAYO DE [facility] Family History Problem Relation Age of Onset No Known Problems Mother Diabetes Father No Known Problems Sister Heart disease Brother Family Status - Relation Status Age at Mother Father Sister Alive Brother Normal [facility] BILIRUBIN, DIRECTon 06-13-20 25 Magnesium [Mass/Vol] 0.1 mg/dL Normal 0-0.2 [facility] Comment on above: Performed By: #### L [id number] #### [facility] ([facility]) [address] [place] [address] BILIRUBIN, TOTALon 5 Bilirubin [Mass/Vol] 0.5 mg/dL Normal 0.3-1.0 [facility] Comment on above: Performed By: #### L [id number] #### [facility] ([facility]) [address] [place] [address] CBCon 06-13-2025 Erythrocyte distribution width (RBC) [Ratio] 16.4 % High 11.5-15.0 [facility] Comment on above: Performed By: #### L [id number] #### [facility] ([facility]) [address] [place] [address] ERYTHROCYTE MEAN CORPUSCULAR HEMOGLOBIN CONCENTRATION (G/DL) BY AUTOMATED 29.6 g/dL Low 32.0-35.0 [facility] Comment on above: Performed By: #### L [id number] #### [facility] ([facility]) [address] [place] [address] Hematocrit (Bld) [Volume fraction] 22.6 % Low 36.0-45.0 [facility] Comment on above: Performed By: #### L [id number] #### [facility] ([facility]) [address] [place] [address] Hemoglobin (Bld) [Mass/Vol] 6.7 g/dL Low 12.0-15.0 [facility] Comment on above: Performed By: #### L [id number] #### [facility] [address] [place] [address] MCH (RBC) [Entitic mass] 22.6 pg Low 27.0-33.0 [facility] Comment on above: Performed By: #### L [id number] #### [facility] [address] [place] [address] MCV (RBC) [Entitic vol] 76.1 fL Low 82.0-98.0 [facility] Comment on above: Performed By: #### L [id number] #### [facility] [address] [place] [address] PLATELETS (10*3/UL) IN BLOOD AUTOMATED COUNT 167 10*3/uL Normal 150-400 [facility] Comment on above: Performed By: #### L [id number] #### [facility] ([facility]) [address] [place] [address] RBC (Bld) [#/Vol] 2.97 10*6/uL Low 3.80-5.00 [facility] Comment on above: Performed By: #### L [id number] #### [facility] ([facility]) [address] [place] [address] WBC (Bld) [#/Vol] 4.65 10*3/uL Normal 4.00-10.60 [facility] Comment on above: Performed By: #### L [id number] #### [facility] ([facility]) [address] [place] [address] HEMOGLOBINon 06-13-2025 Hemoglobin (Bld) [Mass/Vol] 6.6 g/dL Low 12.0-15.0 [facility] Comment on above: Performed By: #### L [id number] #### [facility] ([facility]) [address] [place] [address] Hemoglobin (Bld) [Mass/Vol] 5.7 g/dL Invalid Interpretation Code 12.0-15.0 [facility] Comment on above: Performed By: #### L [id number] #### [facility] ([facility]) [address] [place] [address] Hemoglobin (Bld) [Mass/Vol] 7.7 g/dL Low 12.0-15.0 [facility] Comment on above: Order Comment: Edson mc preprocedure Performed By: #### L [id number] ####[facility] [place] [address] HIGH SENSITIVITY TROPONIN Io n 06-13-2025 HS TROPONIN I (NG/L) 153 ng/L Critically high <15 [facility] Comment on above: Performed By: #### L [id number] #### [facility] ([facility]) [address] [place] [address] HPon 06-13-2025 [facility] Electrophysiology Consult Note [facility] Clinic Reason for visit: Afib 06/13/25 Pt [...] 02/26/25 Patient here for follow up from [facility]. Patient had fluid taken off and aslo had blood transfusions. Patient states she had an at [facility]. EGD showed 3 bleeding ulcers. Patient [...] palpitations. She was recently seen at the [facility] for A-fib RVR as she was admitted for diarrhea and palpitations. She was found to have C. difficile and was treated with antibiotics and converted to sinus rhythm on her own. She states she normally would get palpitations when she drinks caffeine and typically avoids caffeine, the day of her admission she believes she was given caffeinated coffee at [facility] and then began experience palpitations while [...] show any evidence of reversible ischemia. below [id number] at least 4 for age, gender, hypertension, [...] on file (more content not included)... Normal [facility] LACTATE DEHYDROGENASEon 05-22 LACTATE DEHYDROGENASE (U/L) IN SER/PLAS BY LAC->PYR RXN 137 U/L Low 140-271 [facility] Comment on above: Performed By: #### L [id number] ####[facility] ([facility])[address] [place] [address] NURSNOTEon 06-13-2025 ELHAM RN received verbal sign out from Dr. Alix Shah [facility] ELHAM RN notified Dr. Seng shultz of patient's repeat hemoglobin drawn in pacu resulted at 6.7 No orders received at this time. Normal [facility] ADELENOTRandolph Pt. weighed, used CH G, and changed into gown. Dr. Thomson aware of 316 BG-5 units Humalog ordered. Obtaining PIV access and labs. ECG to be completed as of yet as well. Normal [facility] POCT GLUCOSE METER UNSOLICIT ED RESULTSon 06-13-2025 Glucose [Mass/Vol] 263 mg/dL High 70-105 [facility] Comment on above: Order Comment: Waive d Testing in the ED is performed under the ED CLIA certificate #[id number]. Result Comment: [email or web address] Performed By: #### L [id number] #### [facility] ([facility]) [address] [place] [address] Glucose [Mass/Vol] 175 mg/dL High 70-105 [facility] Comment on above: Order Comment: Waive d Testing in the ED is performed under the ED CLIA certificate #[id number]. Result Comment: kbar to Performed By: #### L [id number] #### [facility] ([facility]) [address] [place] [address] Glucose [Mass/Vol] 316 mg/dL High 70-105 [facility] Comment on above: Order Comment: Waive d Testing in the ED is performed under the ED CLIA certificate #[id number]. Result Comment: deepthi [email or web address] Performed By: #### L [id number] ####[facility] ([facility])[address] [place] [address] PROTIME-INRon 06-13-2025 INR IN PPP BY COAGULATION ASSAY 1.20 High 0.90-1.10 [facility] Comment on above: Result Comment: ACCC P [...] 1995;[id number]. Performed By: #### L [id number] #### [facility] ([facility]) [address] [place] [address] PROTHROMBIN TIME (PT) IN PPP BY COAGULATION ASSAY 15.2 Seconds High 12.3-14.8 [facility] Comment on above: Performed By: #### L [id number] #### [facility] ([facility]) [address] [place] [address] TYPE AND SCREENon 06-13-2025 AB SCREEN Positive Normal [facility] Comment on above: Performed By: #### L [id number] #### [facility] , ABO group Nom (Bld) O Normal [facility] Comment on above: Performed By: #### L [id number] #### [facility] , RH TYPE IN BLOOD Positive Normal [facility] Comment on above: Performed By: #### L [id number] #### [facility] , Orders Onlyon 06-11-2025 Orders Only [id number] Connie Brian 1955 F Date Provider Department Center 06/11/2025 2004-STEFANO MENENDEZ [facility] PAC NM Medical C Family History Problem Relation Age of Onset No Known Problems Mother Diabetes Father No Known Problems Sister Heart disease Brother Family Status - Relation Status Age at Mother Father Sister Alive Brother Normal [facility] Prep for Procedureon 025 Prep for Procedure [id number] Connie Brian 1955 F Date Provider Department Center 06/06/20251986-IZABELA OSMAN [facility] Family History Problem Relation Age of Onset No Known Problems Mother Diabetes Father No Known Problems Sister Heart disease Brother Family Status - Relation Status Age at Mother Father Sister Alive Brother Normal [facility] Procedure Visiton 05-28-2025 Procedure Visit [id number] Connie Brian 1955 Provider Department Center 05/28/2025 JESSICA EVANS MP GI Medical Pavi Family History Problem Relation Age of Onset No Known Problems Mother Diabetes Father No Known Problems Sister Heart disease Brother Family Status - Relation Status Age at Mother Father Sister Alive Brother Level of Service:34963 [place] OFFICE/OUTPT VISIT,PROCEDURE ONLY Normal [facility] Prep for Procedureon 025 Prep for Procedure [id number] Connie Brian 1955 Provider Department Center 04/30/2025 IZABELA JOSE [facility] Family History Problem Relation Age of Onset No Known Problems Mother Diabetes Father No Known Problems Sister Heart disease Brother Family Status - Relation Status Age at Mother Father Sister Alive Brother Normal [facility] BEDSIDE GLUCOSEon 04-25-2025 Glucose [Mass/Vol] 213 mg/dL High 65-99 [facility] Comment on above: Performed By: #### C , 2156-6, FEPR, 2324-2, TSHR, PINR, 2276-4, 6771-0, 2064-4, 2465-3, 1834-1, 37203-5, 5130-0, AHP #### [facility] ([id number]) [address] [place] [address] Glucose [Mass/Vol] 231 mg/dL High 65-99 [facility] Comment on above: Performed By: #### C MP, 6, FEPR, 2324-2, TSHR, PINR, 2276-4, 6771-0, 2064-4, 2465-3, 1834-1, 13961-0, 5130-0, AHP #### [facility] ([id number]) [address] [place] [address] Office Visiton 04-23-2025 Follow-up visit [id number] Connie Brian A 1955 F Date Provider Department Center 04/23/2025 ROGERS BERNAL DAISY Barak[place] Family History Problem Relation Age of Onset No Known Problems Mother Diabetes Father No Known Problems Sister Heart disease Brother Family Status - Relation Status Age at Mother Father Sister Alive Brother Level of Service:69664 [place] OFFICE/OUTPATIENT ESTABLISHED LOW MDM 20 MIN Normal [facility] Orders Onlyon 04-22-2025 Orders Only [id number] Connie Brian A 1955 F Date Provider Department Center 04/22/2025 [id number], [facility] DAISY [place] Family History Problem Relation Age of Onset No Known Problems Mother Diabetes Father No Known Problems Sister Heart disease Brother Family Status - Relation Status Age at Mother Father Sister Alive Brother [facility] 36on 04-19-2025 36 Scheduled EGD w/ Push/Cirrhosis/AVM's 04/25/25 @08, [facility], Dr. Zazueta, [facility] ph: 04/24/25 pm, #[phone]. Clinic appt 04/10/25 w/ Patricia and EGD 01/29/25 @ [place] w/ Marbin. Called to schedule EGD/Hepatic Cirrhosis. Scheduled 04/24/25 for Cardiac Ablation. We will follow up afterwards re: clearance/blood thinner hold. Normal [facility] Telephoneon 04-19-2025 Telephone [id number] Connie Brian A 1955 F Date Provider Department Center 04/19/2025 [id number]-SDZTXCAROLE [facility] Family History Problem Relation Age of Onset No Known Problems Mother Diabetes Father No Known Problems Sister Heart disease Brother Family Status - Relation Status Age at Mother Father Sister Alive Brother Normal [facility] Orders Onlyon 04-18-2025 Orders Only [id number] Connie Brian A 1955 F Date Provider Department Center 04/18/2025 [id number]-XOVDWNAVARRO [place] [facility] PREOP [facility] Family History Problem Relation Age of Onset No Known Problems Mother Diabetes Father No Known Problems Sister Heart disease Brother Family Status - Relation Status Age at Mother Father Sister Alive Brother [facility] 37on 04-10-2025 37 Please get blood wor k Schedule EGD I added a new pill called Aldactone to help with ascites. Follow up in 6 months [facility] COMPREHENSIVE METABOLIC PANE Josh 04-10-2025 Albumin [Mass/Vol] 3.6 g/dL Normal 3.2-5.3 [facility] Comment on above: Performed By: #### C MP, 2156-6, FEPR, 2324-2, TSHR, PINR, 2276-4, 6771-0, 2064-4, 2465-3, 1834-1, 42343-5, 5130-0, AHP #### [facility] ([id number]) [address], [address] [place] [address] ALP [Catalytic activity/Vol] 98 U/L Normal 39-130 [facility] Comment on above: Performed By: #### C MP, 2157-04, FEPR, 2324-2, TSHR, PINR, 2276-4, 6771-0, 2064-4, 2465-3, 1834-1, 30929-1, 5130-0, AHP #### [facility] ([id number]) [address], [address] [place] [address] ALT [Catalytic activity/Vol] 13 U/L Normal <=31 [facility] Comment on above: Performed By: #### C MP, 2157-04, FEPR, 2324-2, TSHR, PINR, 2276-4, 6771-0, 2064-4, 2465-3, 1834-1, 63843-6, 5130-0, AHP #### [facility] ([id number]) [address], [address] [place] [address] Anion gap [Moles/Vol] 11 mmol/L Normal 5-15 [facility] Comment on above: Performed By: #### C MP, 2157-6, FEPR, 2324-2, TSHR, PINR, 2276-4, 6771-0, 2064-4, 2465-3, 1834-1, 98658-6, 5130-0, AHP #### [facility] ([id number]) [address], [address] [place] [address] AST [Catalytic activity/Vol] 21 U/L Normal <=41 [facility] Comment on above: Performed By: #### C MP, 2157-6, FEPR, 2324-2, TSHR, PINR, 2276-4, 6771-0, 4-4, 2465-3, 1834-1, 40384-3, 5130-0, AHP #### [facility] ([id number]) [address], [address] [place] [address] Bilirubin [Mass/Vol] 1.4 mg/dL High 0.3-1.2 [facility] Comment on above: Performed By: #### C MP, 7-6, FEPR, 2324-2, TSHR, PINR, 2276-4, 6771-0, 4-4, 2465-3, 1834-1, 60895-4, 5130-0, AHP #### [facility] ([id number]) [address], [address] [place] [address] Calcium [Mass/Vol] 9.5 mg/dL Normal 8.5-10.5 [facility] Comment on above: Performed By: #### C MP, 2157-6, FEPR, 2324-2, TSHR, PINR, 2276-4, 6771-0, 4-4, 2465-3, 1834-1, 29355-4, 5130-0, AHP #### [facility] ([id number]) [address], [address] [place] [address] Chloride [Moles/Vol] 109 mmol/L Normal 98-109 [facility] Comment on above: Performed By: #### C MP, 2156-6, FEPR, 2324-2, TSHR, PINR, 2276-4, 6771-0, 2064-4, 2465-3, 1834-1, 74669-0, 5130-0, AHP #### [facility] ([id number]) [address], [address] [place] [address] CO2 [Moles/Vol] 23 mmol/L Normal 22-32 [facility] Comment on above: Performed By: #### C MP, 2156-6, FEPR, 2324-2, TSHR, PINR, 2276-4, 6771-0, 2064-4, 2465-3, 1834-1, 24780-0, 5130-0, P #### [facility] ([id number]) [address], [address] [place] [address] Creatinine [Mass/Vol] 0.69 mg/dL Normal 0.40-1.00 [facility] Comment on above: Result Comment: METH OD TRACEABLE TO IDMS STANDARD Performed By: #### C MP, 2156-6, FEPR, 2324-2, TSHR, PINR, 2276-4, 6771-0, 2064-4, 2465-3, 1834-1, 56646-0, 5130-0, P #### [facility] ([id number]) [address], [address] [place] [address] EGFR (CKD-EPI) NON-RACE DEPENDENT >^90 Normal >=60 [facility] Comment on above: Result Comment: Repo rted eGFR is based on the CKD-EPI 2020 equation that does not use a race coefficient. Performed By: #### C MP, 2156-6, FEPR, 2324-2, TSHR, PINR, 2276-4, 6771-0, 2064-4, 2465-3, 1834-1, 22383-0, 5130-0, AHP #### [facility] ([id number]) [address] [place] [address] Glucose [Mass/Vol] 227 mg/dL High 65-99 [facility] Comment on above: Performed By: #### C MP, 2156-6, FEPR, 2324-2, TSHR, PINR, 2276-4, 6771-0, 2064-4, 2465-3, 1834-1, 12203-5, 5130-0, AHP #### [facility] ([id number]) [address] [place] [address] Potassium [Moles/Vol] 4.7 mmol/L Normal 3.5-5.0 [facility] Comment on above: Performed By: #### C MP, 6, FEPR, 2324-2, TSHR, PINR, 2276-4, 6771-0, 4-4, 2465-3, 1834-1, 05382-0, 5130-0, AHP #### [facility] ([id number]) [address], [address] [place] [address] Protein [Mass/Vol] 7.0 g/dL Normal 6.0-8.0 [facility] Comment on above: Performed By: #### C MP, 6, FEPR, 2324-2, TSHR, PINR, 2276-4, 6771-0, 4-4, 2465-3, 1834-1, 83075-3, 5130-0, AHP #### [facility] ([id number]) [address] [place] [address] Sodium [Moles/Vol] 143 mmol/L Normal 134-146 [facility] Comment on above: Performed By: #### C MP, 2156-6, FEPR, 2324-2, TSHR, PINR, 2276-4, 6771-0, 2064-4, 2465-3, 1834-1, 85948-9, 5130-0, AHP #### [facility] ([id number]) [address] [facility] [address] [address] [place] [address] Urea nitrogen [Mass/Vol] 21 mg/dL Normal 5-27 [facility] Comment on above: Performed By: #### C MP, 2156-6, FEPR, 2324-2, TSHR, PINR, 6-4, 6771-0, 4-4, 2465-3, 1834-1, 20824-6, 5130-0, P #### [facility] ([id number]) [address] [facility], [address] [place] [address] Follow-Upon 04-10-2025 Follow-Up [id number] RocTalhaConnie A 1955 F Date Provider Department Center 04/10/2025 [facility] Family History Problem Relation Age of Onset No Known Problems Mother Diabetes Father No Known Problems Sister Heart disease Brother Family Status - Relation Status Age at Mother Father Sister Alive Brother Level of Service:00660 [place] OFFICE/OUTPATIENT ESTABLISHED MOD MDM 30 MIN () Reason for Visit and Comments: Follow-up [894744] Normal [facility] PROTIME AND INRon 04-10-2025 INR 1.5 High 0.9-1.2 [facility] Comment on above: Performed By: #### C MP, 2156-6, FEPR, 2324-2, TSHR, PINR, 6-4, 6771-0, 2063-4, 2465-3, 1834-1, 40938-0, 5130-0, P #### [facility] ([id number]) [address] [facility] [facility] [address], [address] [place] [address] PT Coag (PPP) [Time] 17.4 s High 9.8-13.2 [facility] Comment on above: Performed By: #### C MP, 2156-6, FEPR, 2324-2, TSHR, PINR, 2276-4, 6771-0, 2063-4, 2465-3, 1834-1, 90181-7, 5130-0, [facility] #### [facility] ([id number]) [address], [address] [place] [address] Prep for Procedureon 025 Prep for Procedure [id number] Connie Brian Hannah 1955 F Date Provider Department Center 03/22/2025 Juan-IZABELA OSMAN [facility] [place] [facility] Family History Problem Relation Age of Onset No Known Problems Mother Diabetes Father No Known Problems Sister Heart disease Brother Family Status - Relation Status Age at Mother Father Sister Alive Brother Normal [facility] Urine Cultureon 03-05-2025 Bacteria identified Cx Nom (U) ORGANISM: Escherichia coli (O:ESCCOL) [place] Count >100,000 Aerobic KAL Charge (NMIC56) --- [...] RESISTANT TO ALL B-LACTAM DRUGS. PERFORMED BY: [facility] [address] [place] [address] PATHOLOGIST [employer] HARRIET CHOWDHURY M.D. Normal [facility] Comment on above: Performed By: #### C UU #### [facility] [address] [place] [address] [facility] Office Visiton 02-26-2025 Follow-up visit [id number] Connie Brian 1955 F Date Provider Department Center 02/26/2025 ROGERS BERNAL DAISY [place] Family History Problem Relation Age of Onset No Known Problems Mother Diabetes Father No Known Problems Sister Heart disease Brother Family Status - Relation Status Age at Mother Father Sister Alive Brother Level of Service:88492 [place] OFFICE/OUTPATIENT ESTABLISHED MOD MDM 30 MIN Normal [facility] HPon 01-29-2025 HP H&P reviewed. The patient was examined and there are no changes to the H&P. Upper GI bleeding with melena and anemia with history of steatohepatitis. The patient is scheduled to have an upper endoscopy to rule out upper GI bleeding. Normal [facility] NURSNOTEon 01-29-2025 ELHAM RN reviewed discharg e instructions with patient and friend at bedside. No questions or concerns expressed at this time. Normal [facility] NURSNOTE Grounding patch removed skin dry and intact. Normal [facility] NURSNOTE Grounding patch applied to pt right posterior thigh skin dry and intact Normal [facility] POCT GLUCOSE METER UNSOLICIT ED RESULTSon 01-29-2025 Glucose [Mass/Vol] 248 mg/dL High 70-105 [facility] Comment on above: Order Comment: Waive d Testing in the ED is performed under the ED CLIA certificate #[id number]. Result Comment: ltol les Performed By: #### L [id number] #### [facility] ([facility]) [address] [place] [address] Glucose [Mass/Vol] 276 mg/dL High 70-105 [facility] Comment on above: Order Comment: Waive d Testing in the ED is performed under the ED CLIA certificate #[id number]. Result Comment: ngro radha Performed By: #### L [id number] ####[facility] ([facility])[address] [place] [address] ACUTE HEPATITIS PANELon ANTI HCV W/PCR REFLX Non-Reactive Normal NRCT [facility] Comment on above: Result Comment: NEW TEST METHOD NOTE If recent infection suspected, recommend repeat testing (>2 months). Vteaic-ea-kmmkqx ratio is <1.00. Performed By: #### C MP, 2156-, FEPR, 2324-2, TSHR, PINR, 2276-4, 6771-0, 2064-4, 2465-3, 1834-1, 87643-2, 5130-0, AHP #### [facility] ([id number]) [address], [address] [place] [address] HEPATITIS A IGM Non-Reactive Normal NRCT [facility] Comment on above: Result Comment: NEW TEST METHOD Performed By: #### C MP, 6, FEPR, 2324-2, TSHR, PINR, 2276-4, 6771-0, 2064-4, 2465-3, 1834-1, 04006-8, 5130-0, AHP #### [facility] ([id number]) [address], [address] [place] [address] HEPATITIS B CORE IGM Non-Reactive Normal NRCT [facility] Comment on above: Result Comment: NEW TEST METHOD Performed By: #### C MP, 6, FEPR, 2324-2, TSHR, PINR, 2276-4, 6771-0, 2064-4, 2465-3, 1834-1, 43364-2, 5130-0, AHP #### [facility] ([id number]) [address] [address] HEPATITIS B SURF AG Non-Reactive Normal NRCT [facility] Comment on above: Result Comment: NEW TEST METHOD Performed By: #### C MP, 2156-6, FEPR, 2324-2, TSHR, PINR, 2276-4, 6771-0, 2064-4, 2465-3, 1834-1, 81460-4, 5130-0, AHP #### [facility] ([id number]) [address] [address], [address] [address] AFP [Mass/Vol]on 01-23-2025 ALPHA FETOPROTEIN 2.6 ng/mL Normal 0-9.9 [facility] Comment on above: Performed By: #### C MP, 6, FEPR, 2324-2, TSHR, PINR, 2276-4, 6771-0, 2064-4, 2465-3, 1834-1, 40225-7, 5130-0, AHP #### [facility] ([id number]) [address] [address] Aldolase [Catalytic activity /Vol]on 01-23-2025 ALDOLASE 5.4 U/L Normal 1.2-7.6 [facility] Comment on above: Result Comment: NOTE REFERENCE INTERVAL: Aldolase Access complete set of age- and/or gender-specific reference intervals for this test in the [facility] Test Directory (ISIS). Performed By: [facility] [address] [place] [address] [employer] Member: Bart Infante MD, PhD CLIA Number: [id number] Performed By: #### C MP, 2156-6, FEPR, 2324-2, TSHR, PINR, 2276-4, 6771-0, 2064-4, 2465-3, 1834-1, 05965-4, 5130-0, AHP #### [facility] ([id number]) [address] [facility], [address] [address] Alpha 1 antitrypsin Nephelom etry [Mass/Vol]on 01-23-2025 ALPHA 1 ANTITRYPSIN 185 mg/dL Normal 83-199 [facility] Comment on above: Performed By: #### C MP, 7-6, FEPR, 2324-2, TSHR, PINR, 2276-4, 6771-0, 2064-4, 2465-3, 1834-1, 65760-3, 5130-0, AHP #### [facility] ([id number]) [address], [address] [place] [address] CK [Catalytic activity/Vol]o n 01-23-2025 CPK 27 U/L Normal 24-170 [facility] Comment on above: Performed By: #### C MP, 2156-6, FEPR, 2324-2, TSHR, PINR, 2276-4, 6771-0, 4-4, 2465-3, 1834-1, 51091-2, 5130-0, P #### [facility] ([id number]) [address], [address] [place] [address] COMPREHENSIVE METABOLIC PANE Josh 01-23-2025 Albumin [Mass/Vol] 3.5 g/dL Normal 3.2-5.3 [facility] Comment on above: Performed By: #### C MP, 2156-6, FEPR, 2324-2, TSHR, PINR, 2276-4, 6771-0, 2064-4, 2465-3, 1834-1, 32756-7, 5130-0, AHP #### [facility] ([id number]) [address], [address] [place] [address] ALP [Catalytic activity/Vol] 108 U/L Normal 39-130 [facility] Comment on above: Performed By: #### C MP, 2157-6, FEPR, 2324-2, TSHR, PINR, 2276-4, 6771-0, 2064-4, 2465-3, 1834-1, 22524-3, 5130-0, AHP #### [facility] ([id number]) [address], [address] [place] [address] ALT [Catalytic activity/Vol] 13 U/L Normal 0-31 [facility] Comment on above: Performed By: #### C MP, 2156-6, FEPR, 2324-2, TSHR, PINR, 2276-4, 6771-0, 4-4, 2465-3, 1834-1, 90209-7, 5130-0, AHP #### [facility] ([id number]) [address] [facility], [address] [place] [address] Anion gap [Moles/Vol] 14 mmol/L Normal 5-15 [facility] Comment on above: Performed By: #### C MP, 6, FEPR, 2324-2, TSHR, PINR, 6-4, 6771-0, 4-4, 2465-3, 1834-1, 77116-5, 5130-0, P #### [facility] ([id number]) [address] [facility] [address], [address] [place] [address] AST [Catalytic activity/Vol] 25 U/L Normal 0-41 [facility] Comment on above: Performed By: #### C MP, 2156-6, FEPR, 2324-2, TSHR, PINR, 2276-4, 6771-0, 2063-4, 2465-3, 1834-1, 13889-5, 5130-0, AHP #### [facility] ([id number]) [address] [facility] [address], [address] [place] [address] Bilirubin [Mass/Vol] 1.1 mg/dL Normal 0.3-1.2 [facility] Comment on above: Performed By: #### C MP, 2156-6, FEPR, 2324-2, TSHR, PINR, 2276-4, 6771-0, 4-4, 2465-3, 1834-1, 43206-6, 5130-0, AHP #### [facility] ([id number]) [address] [place] [address] Calcium [Mass/Vol] 9.0 mg/dL Normal 8.5-10.5 [facility] Comment on above: Performed By: #### C MP, 2157-04, FEPR, 2324-2, TSHR, PINR, 2276-4, 6771-0, 4-4, 2465-3, 1834-1, 01659-7, 5130-0, AHP #### [facility] ([id number]) [address] [facility] [address] [place] [address] Chloride [Moles/Vol] 104 mmol/L Normal 98-109 [facility] Comment on above: Performed By: #### C MP, 2157-04, FEPR, 2324-2, TSHR, PINR, 2276-4, 6771-0, 4-4, 2465-3, 1834-1, 39004-9, 5130-0, AHP #### [facility] ([id number]) [address] [place] [address] CO2 [Moles/Vol] 25 mmol/L Normal 22-32 [facility] Comment on above: Performed By: #### C MP, 2157-04, FEPR, 2324-2, TSHR, PINR, 2276-4, 6771-0, 4-4, 2465-3, 1834-1, 93965-8, 5130-0, AHP #### [facility] ([id number]) [address] [place] [address] Creatinine [Mass/Vol] 0.79 mg/dL Normal 0.40-1.00 [facility] Comment on above: Result Comment: METH OD TRACEABLE TO IDMS STANDARD Performed By: #### C MP, 2157-04, FEPR, 2324-2, TSHR, PINR, 2276-4, 6771-0, 2064-4, 2465-3, 1834-1, 40560-7, 5130-0, P #### [facility] ([id number]) [address] [place] [address] GFR/1.73 sq M.predicted among non-blacks MDRD (S/P/Bld) [Vol rate/Area] 81 mL/min/{1.73_m2} Normal >59 [facility] Comment on above: Result Comment: Reported eGFR is based on the CKD-EPI 2020 equation that does not use a race coefficient. Performed By: #### C MP, 2157-04, FEPR, 2324-2, TSHR, PINR, 2276-4, 6771-0, 2064-4, 2465-3, 1834-1, 04013-7, 5130-0, P #### [facility] ([id number]) [address] [place] [address] Glucose [Mass/Vol] 269 mg/dL High 65-99 [facility] Comment on above: Performed By: #### C MP, 2157-04, FEPR, 2324-2, TSHR, PINR, 2276-4, 6771-0, 2064-4, 2465-3, 1834-1, 56625-4, 5130-0, P #### [facility] ([id number]) [address] [place] [address] Potassium [Moles/Vol] 3.8 mmol/L Normal 3.5-5.0 [facility] Comment on above: Performed By: #### C MP, 2156-, FEPR, 2324-2, TSHR, PINR, 2276-4, 6771-0, 2064-4, 2465-3, 1834-1, 24015-6, 5130-0, P #### [facility] ([id number]) [address] [facility] [address] [place] [address] Protein [Mass/Vol] 7.4 g/dL Normal 6.0-8.0 [facility] Comment on above: Performed By: #### C MP, 2156-6, FEPR, 2324-2, TSHR, PINR, 2276-4, 6771-0, 2064-4, 2465-3, 1834-1, 21353-7, 5130-0, P #### [facility] ([id number]) [address] [facility], [address] [place] [address] Sodium [Moles/Vol] 143 mmol/L Normal 134-146 [facility] Comment on above: Performed By: #### C MP, 6, FEPR, 2324-2, TSHR, PINR, 2276-4, 6771-0, 2064-4, 2465-3, 1834-1, 37218-5, 5130-0, P #### [facility] ([id number]) [address] [facility], [address] [place] [address] Urea nitrogen [Mass/Vol] 24 mg/dL Normal 5-27 [facility] Comment on above: Performed By: #### C MP, 6, FEPR, 2324-2, TSHR, PINR, 2276-4, 6771-0, 2064-4, 2465-3, 1834-1, 86747-4, 5130-0, P #### [facility] ([id number]) [address] [facility] [address] [place] [address] Ceruloplasmin [Mass/Vol]on 0 01-23-2025 CERULOPLASMIN 33 mg/dL Normal 18-58 [facility] Comment on above: Performed By: #### C MP, 2156-6, FEPR, 2324-2, TSHR, PINR, 2276-4, 6771-0, 2064-4, 2465-3, 1834-1, 12884-5, 5130-0, AHP #### [facility] ([id number]) [address] [place] [address] DNA double strand Ab Qn (S)o n 01-23-2025 DOUBLE STRANDED DNA <1 Normal <5 [facility] Comment on above: Result Comment: Interpretation-------- <5 Negative 5-9 Indeterminate >9 Positive Performed By: #### C MP, 2156-6, FEPR, 2324-2, TSHR, PINR, 2276-4, 6771-0, 2064-4, 2465-3, 1834-1, 46456-6, 5130-0, AHP #### [facility] ([id number]) [address] [place] [address] FERRITINon 01-23-2025 Ferritin [Mass/Vol] 5 ng/mL Low 11-307 [facility] Comment on above: Performed By: #### C MP, 2156-6, FEPR, 2324-2, TSHR, PINR, 2276-4, 6771-0, 2064-4, 2465-3, 1834-1, 69026-0, 5130-0, AHP #### [facility] ([id number]) [address] [place] [address] GGTon 01-23-2025 Gamma glutamyl transferase [Catalytic activity/Vol] 86 U/L High 7-33 [facility] Comment on above: Performed By: #### C MP, 2156-6, FEPR, 2324-2, TSHR, PINR, 2276-4, 6771-0, 2064-4, 2465-3, 1834-1, 07101-9, 5130-0, AHP #### [facility] ([id number]) [address] [place] [address] on 01-23-2025 HP -- Attestation signed by Damian Gomez MD at 01/23/2025 3:48 PM Seen and discussed with fellow, agree with assessment and plan. [facility] Gastroenterology New Patient Visit - History & Physical CHIEF COMPLAINT Chief Complaint Patient presents with New Patient EGD scheduled, was at [facility] and sent for an EGD but [...] : EGD and Colonoscopy was done in [facility] 11/06/2025 HISTORY: Problem list: Patient Active Problem [...] Outpatient Medic (more content not included)... Normal [facility] IGGon 01-23-2025 IgG [Mass/Vol] 1498 mg/dL Normal 635-1741 [facility] Comment on above: Performed By: #### C MP, 2156-6, FEPR, 2324-2, TSHR, PINR, 2276-4, 6771-0, 2064-4, 2465-3, 1834-1, 26333-2, 5130-0, AHP #### [facility] ([id number]) [address] [place] [address] IRON PROFILEon 01-23-2025 Iron [Mass/Vol] 20 ug/dL Low 50-170 [facility] Comment on above: Performed By: #### C MP, 6, FEPR, 2324-2, TSHR, PINR, 2276-4, 6771-0, 2064-4, 2465-3, 1834-1, 39493-6, 5130-0, AHP #### [facility] ([id number]) [address] [place] [address] IRON BINDING 504 ug/dL High 250-425 [facility] Comment on above: Performed By: #### C MP, 6, FEPR, 2324-2, TSHR, PINR, 2276-4, 6771-0, 2064-4, 2465-3, 1834-1, 94678-5, 5130-0, AHP #### [facility] ([id number]) [address] [place] [address] IRON SATURATION 4 % SATURATION Low 15-50 [facility] Comment on above: Performed By: #### C MP, 6, FEPR, 2324-2, TSHR, PINR, 2276-4, 6771-0, 2064-4, 2465-3, 1834-1, 22396-0, 5130-0, AHP #### [facility] ([id number]) [address], [address] [place] [address] Mitochondria M2 Ab IA Qn (S) on 01-23-2025 Mitochondrial Ab (M2) <0.1 Normal <0.1 (Negative) [facility] Comment on above: Result Comment: NOTE Test Performed by: [facility] [address] [place] [address] [employer] Lead: Neyda Gutierrez Ph.D.; CLIA# [id number] Performed By: #### C MP, 7-6, FEPR, 2324-2, TSHR, PINR, 2276-4, 6771-0, 2064-4, 2465-3, 1834-1, 83124-1, 5130-0, P #### [facility] ([id number]) [address], [address] [place] [address] Nuclear Ab IA Ql (S)on 01-23 [place] Screen w/reflex Negative Normal NEG [facility] Comment on above: Result Comment: Testing performed using multiplex flow immunoassay. Eleven different antigens associated with systemic autoimmune diseases (dsDNA,Sm,Sm/FORM LAYER,FORM LAYER,Chromatin, SSA,SSB,Daniela-1,Scl70,Ribo P,Centromere B) are included in this screening test. Performed By: #### C MP, 2157-6, FEPR, 2324-2, TSHR, PINR, 2276-4, 6771-0, 2064-4, 2465-3, 1834-1, 80153-0, 5130-0, P #### [facility] ([id number]) [address], [address] [place] [address] Office Visiton 01-23-2025 Follow-up visit [id number] Connie Brian 1955 F Date Provider Department Center 01/23/2025 [facility] Family History Problem Relation Age of Onset No Known Problems Mother Diabetes Father No Known Problems Sister No Known Problems Brother Family Status - Relation Status Age at Mother Father Sister Brother Level of Service:34128 [place] OFFICE/OUTPATIENT NEW MODERATE MDM 45 MINUTES (GC) Reason for Visit and Comments: New Patient [632] - EGD scheduled, was at [facility] and sent for an EGD but also Cirrhosis work up. She was never told she has Cirrhisis but overheard a Doctor say it to another Doctor. Normal [facility] PROTIME AND INRon 01-23-2025 INR Coag (PPP) [Relative time] 1.4 {INR} High 0.9-1.2 [facility] Comment on above: Performed By: #### C MP, 2157-04, FEPR, 2324-2, TSHR, PINR, 2276-4, 6771-0, 2064-4, 2465-3, 1834-1, 34463-7, 5130-0, AHP #### [facility] ([id number]) [address], [address] [place] [address] PT Coag (PPP) [Time] 16.4 s High 9.8-13.2 [facility] Comment on above: Performed By: #### C MP, 2157-04, FEPR, 2324-2, TSHR, PINR, 2276-4, 6771-0, 2064-4, 2465-3, 1834-1, 39701-6, 5130-0, AHP #### [facility] ([id number]) [address], [address] [place] [address] TSH WITH REFLEXon 01-23-2025 TSH 3.87 uIU/mL Normal 0.49-4.67 [facility] Comment on above: Performed By: #### C MP, 6, FEPR, 2324-2, TSHR, PINR, 2276-4, 6771-0, 2064-4, 2465-3, 1834-1, 61359-9, 5130-0, AHP #### [facility] ([id number]) [address], [address] [place] [address] 36on 01-22-2025 36 Spoke with patients roommate, Katherine, that I have the okay for Connie to hold her Eliquis for 48 hours prior to her EGD on 01/29/25, verbalizes understanding. Normal [facility] Telephoneon 01-22-2025 Telephone [id number] Connie Brian 1955 [facility] Provider Department Center 01/22/2025 [facility] Family History Problem Relation Age of Onset No Known Problems Mother Diabetes Father No Known Problems Sister No Known Problems Brother Family Status - Relation Status Age at Mother Father Sister Brother [facility] Prep for Procedureon 025 Prep for Procedure [id number] Connie Brian 1955 [facility] 01/21/2025 JESUS NAVA [facility] [place] Family History Problem Relation Age of Onset No Known Problems Mother Diabetes Father No Known Problems Sister No Known Problems Brother Family Status - Relation Status Age at Mother Father Sister Brother [facility] 36on 01-11-2025 36 Message left for patient to call and schedule an EGD. She will also need an office visit with Dr. Gomez for Hepatology/Cirrhosis. [facility] Office Visiton 12-18-2024 Follow-up visit [id number] Connie Brian 1955 Date Provider Department Center 12/18/2024 ROGERS BERNAL Family History Problem Relation Age of Onset No Known Problems Mother Diabetes Father No Known Problems Sister No Known Problems Brother Family Status - Relation Status Age at Mother Father Sister Brother Level of Service:90413 [place] OFFICE/OUTPATIENT ESTABLISHED MOD MDM 30 MIN [facility] Reminderson 11-28-2024 Reminders Reminders From: Skye Concepcion LPN To: N - Clinical; Sent: 11/28/2024 09:09:41 EST Show up: 10/08/2029 07:00:00 EST Subject: colonoscopy recall Due Date/Time: 11/07/2029 07:00:00 EST Reminder/Recall Patient due for surveillance colonoscopy 11/07/2029 due to history of tubular adenoma. Normal [facility] Aerobic Cultureon 11-15-2024 Aerobic Culture No Growth 2 Days No Anaerobes Isolated 3 Days Gram Stain Result No Bacteria Seen Rare White Blood Cells PERFORMED BY: [place] [address] PATHOLOGIST [employer] DRIVER HARRIET CHOWDHURY M.D. Normal [facility] Comment on above: Performed By: #### G S, AERC #### [place] [id number] [facility] Aerobic cultureOrdered By: Raleigh Del Rosario on 11-15-2024 Bacteria identified Aer cx Nom (Unsp spec) Aerobic culture [facility] Anaerobic cultureOrdered By: Lon Del Rosario on 11-15-2024 Bacteria identified Anaer cx Nom (Unsp spec) Anaerobic culture [facility] Gram Stainon 11-15-2024 Microscopic observation Gram stain Nom (Unsp spec) Gram Stain Result No Bacteria Seen Rare White Blood Cells PERFORMED BY: [place] [address] PATHOLOGIST [employer] DRIVER HARRIET CHOWDHURY M.D. Normal [facility] Comment on above: Performed By: #### G Raleigh, AERC #### [place] [id number] [facility] Gram stain microscopyOrdered By: Lon Del Rosario on 11-15-2024 Microscopic observation Gram stain Nom (Unsp spec) Gram stain microscopy [facility] Blood Cultureon 11-14-2024 Bacteria identified Cx Nom (Bld) Specimen collected on 11/14/24 Gram Stain Gram Positive Cocci ORGANISM: Staphylococcus aureus (O:STAAUR) Organism Comments For KAL Refer to Final Report of Blood Culture Collected Date 11/14/24 PERFORMED BY: [address] [address] PATHOLOGIST [employer] DRIVER HARRIET CHOWDHURY M.D. Normal [facility] Comment on above: Performed By: #### C UBLD #### [address] Bacteria identified Cx Nom (Bld) Specimen [...] RESISTANT TO ALL B-LACTAM DRUGS. PERFORMED BY: [place] [address] PATHOLOGIST [employer] TR[employer] DRIVER HARRIET CHOWDHURY M.D. Normal [facility] Comment on above: Performed By: #### C UBLD #### [address] Laboratory - Microbiology an d Antimicrobial susceptibilityOrdered By: Howard Johnston on 11-14-2024 Bacteria identified Cx Nom (Bld) Abnormal [facility] Urine Cultureon 11-14-2024 Bacteria identified Cx Nom (U) ORGANISM: Escherichia coli (O:ESCCOL) [place] Count 50,000 Aerobic KAL Charge (NMIC56) --- [...] RESISTANT TO ALL B-LACTAM DRUGS. PERFORMED BY: [place] [address] PATHOLOGIST [employer] DRIVER HARRIET CHOWDHURY M.D. Normal [facility] Comment on above: Performed By: #### C UU #### [address] Urine cultureOrdered By: Kevin Johnston on 11-14-2024 Bacteria identified Cx Nom (U) Escherichia coli Abnormal [facility] Office Visiton 11-09-2024 Follow-up visit [id number] Connie Brian 1955 F Date Provider Department Center 11/09/2024 [id number] ESPINO[facility] Family History Problem Relation Age of Onset No Known Problems Mother Diabetes Father No Known Problems Sister No Known Problems Brother Family Status - Relation Status Age at Mother Father Sister Brother Level of Service:94536 [place] OFFICE/OUTPATIENT ESTABLISHED MOD MDM 30 MIN Reason for Visit and Comments: Atrial Fibrillation [80] - On Eliquis. Hypertension [647778] Congestive Heart Failure [127] - Denies chest pain, SOB, and LE edema. Valve Disorder [3372] Epistaxis (Nose Bleed) [703476] - Having epistaxis in the mornings, recently had 1 straight week of them. Palpitations [613967] - She presented to [facility] ED last weekend for palpitations. Patient states she was advised to increase metoprolol to 75mg bid x3 days, and then return to baseline dose of 50mg bid. Normal [facility] Pathology Request for Lab Co rpon 11-07-2024 Pathology Request for Lab Niall Normal [facility] Comment on above: Order Comment: PATHO LOGY GI SPECIMEN Result Comment: See report. Scanned copy available in EMR. PERFORMED BY: [place] [address] PATHOLOGIST [employer] DRIVER HARRIET CHOWDHURY M.D. Performed By: #### P ATH TO [facility] #### [address] Ambulatory Visit Summaryon 1 12-03-2023 Ambulatory [...] choosing us for your care. [facility] Electrophysiology Consult Note [facility] Clinic Reason for visit: Afib 08/06/24 Pt here for LOOP 07/03/24 Pt is doing well and occasionally feels palpitations. HPI: Connie Brian is a 68 y.o. year old with past medical history of Hypertension, diabetes, dyslipidemia, palpitations. She was recently seen at the [facility] for A-fib RVR as she was admitted for diarrhea and palpitations. She was found to have C. difficile and was treated with antibiotics and converted to sinus rhythm on her own. She states she normally would get palpitations when she drinks caffeine and typically avoids caffeine, the day of her admission she believes she was given caffeinated coffee at [facility] and then began experience palpitations while [...] show any evidence of reversible ischemia. below [id number] at least 4 for age, gender, hypertension, [...] Arteries: bilateral antoine (more content not included)... [facility] NURSNOTEon 08-06-2024 NURSNOTE RN educated pt on d/ c instructions. RN encouraged pt to voice any questions or concerns. Pt verbalizes no questions or concerns at this time. Pt was wheeled off of unit with all of belongings. [facility] 36on 07-11-2024 36 Regarding echo resul t from 05/29/2024: MD Anne Garsia MA Notify patient that her heart function is normal, valvular heart disease is stable, but she has evidence of pulmonary hypertension. Advise the patient to take the Lasix every day not as needed, check BMP in 1 week, refer her for sleep study [facility] Office Visiton 07-03-2024 Follow-up visit [id number] Connie Brian 1955 F Date Provider Department Center 07/03/2024 ROGERS BERNAL [facility] Family History Problem Relation Age of Onset No Known Problems Mother Diabetes Father No Known Problems Sister No Known Problems Brother Family Status - Relation Status Age at Mother Father Sister Brother Level of Service:71586 [place] OFFICE/OUTPATIENT ESTABLISHED LOW MDM 20 MIN [facility] INSULINon 09-25-2022 Insulin 14.1 uIU/mL Normal 2.6-24.9 [facility] Comment on above: Performed By: #### I NSULIN #### [facility] [address] [place] [address] [address] Becky Josue CBC AUTO DIFFon 09-24-2022 BASO # 0.0 103/ul Normal 0.0-0.1 [facility] Comment on above: Performed By: #### C BC ####[facility] [address] [place] [address]Dr. Becky Joselo Basophils/100 WBC (Bld) 0.5 % Normal 0.2-2.0 [facility] Comment on above: Performed By: #### C BC ####[facility] [address] [place], [place] [address]Dr. Becky Josue EO # 0.1 103/ul Normal 0.0-0.7 [facility] Comment on above: Performed By: #### C BC ####[facility] [address] [place], [place] [address]Dr. Kellenkwadwo Josue Eosinophils/100 WBC (Bld) 3.3 % Normal 0.9-7.0 [facility] Comment on above: Performed By: #### C BC ####[facility] [address] [place], [place] [address]Dr. Becky Joselo Erythrocyte distribution width (RBC) [Ratio] 14.3 % Normal 11.0-15.0 [facility] Comment on above: Performed By: #### C BC ####[facility] [address] [place], [place] [address]Dr. Becky Josue Hematocrit (Bld) [Volume fraction] 42.6 % Normal 36.0-48.0 [facility] Comment on above: Performed By: #### C BC ####[facility] [address] [place], [place] [address]Dr. Becky Josue Hemoglobin (Bld) [Mass/Vol] 13.8 g/dL Normal 12.0-16.0 [facility] Comment on above: Performed By: #### C BC ####[facility] [address] [place], [place] [address]Dr. Becky Josue IG # 0.02 10e3/ul Normal 0.00-0.03 [facility] Comment on above: Performed By: #### C BC ####[facility] [address] [place], [place] [address]Dr. Becky Josue IG % 0.5 % Normal 0.0-0.5 [facility] Comment on above: Performed By: #### C BC ####[facility] [address] [place] [address]Dr. Kellenkwadwo Joselo LYMPH # 1.1 103/ul Critically low 1.2-3.8 [facility] Comment on above: Performed By: #### C BC ####[facility] [address] [place] [address]Dr. Becky Josue Lymphocytes/100 WBC (Bld) 28.0 % Normal 20.5-60.0 [facility] Comment on above: Performed By: #### C BC ####[facility] [address] [place] [address]Dr. Becky Josue MANUAL DIFF REQ NO Normal [facility] Comment on above: Performed By: #### C BC ####[facility] [address] [place], [place] [address]Dr. Becky Josue MCH (RBC) [Entitic mass] 29.3 pg Normal 26.7-34.0 [facility] Comment on above: Performed By: #### C BC ####[facility] [address] [place], [place] [address]Dr. Becky Josue MCHC (RBC) [Mass/Vol] 32.4 g/dL Normal 29.9-35.2 [facility] Comment on above: Performed By: #### C BC ####[facility] [address] [place], [place] [address]Dr. Becky Josue MCV (RBC) [Entitic vol] 90.4 fL Normal 81.0-99.0 [facility] Comment on above: Performed By: #### C BC ####[facility] [address] [place], [place] [address]DrBrayan Josue MONO # 0.3 103/ul Normal 0.3-0.8 [facility] Comment on above: Performed By: #### C BC ####[facility] [address] [place] [address]Dr. Becky Josue Monocytes/100 WBC (Bld) 8.3 % Normal 1.7-12.0 [facility] Comment on above: Performed By: #### C BC ####[facility] [address] [place] [address]Dr. Becky Josue NEUT # 2.4 103/ul Normal 1.4-6.5 [facility] Comment on above: Performed By: #### C BC ####[facility] [address] [place] [address]Dr. Becky Josue Neutrophils/100 WBC (Bld) 59.4 % Normal 43.0-75.0 [facility] Comment on above: Performed By: #### C BC ####[facility] [address] [place] [address]Dr. Becky Josue Platelet mean volume (Bld) [Entitic vol] 10.3 fL Normal 9.5-13.5 [facility] Comment on above: Performed By: #### C BC ####[facility] [address] [place], [place] [address]Dr. Becky Josue PLT 149 103/ul Critically low 150-450 [facility] Comment on above: Performed By: #### C BC ####[facility] [address] [place], [place] [address]Dr. Becky Josue RBC 4.71 106/ul Normal 4.20-5.40 [facility] Comment on above: Performed By: #### C BC ####[facility] [address] [place], [place] [address]Dr. Becky Josue WBC 4.0 103/ul Normal 4.0-11.0 [facility] Comment on above: Performed By: #### C BC ####[facility] [address] [place] [id number]. Becky Joselo FREE THYROXINE INDEX T7on FTI 3.36 Normal 1.30-4.50 [facility] Comment on above: Performed By: #### L IPID, CMP, TSH, T7 ####[facility] [address] [place] [address]Dr. Becky Joselo T3U 32.0 % Normal 30.0-39.0 [facility] Comment on above: Performed By: #### L IPID, CMP, TSH, T7 ####[facility] [address] [place] [address]Dr. Becky Josue T4 [Mass/Vol] 10.50 ug/dL Normal 4.80-13.90 [facility] Comment on above: Performed By: #### L IPID, CMP, TSH, T7 ####[facility] [address] [place] [id number]. Becky Josue GLYCOHEMOGLOBIN A1Con 2021 ADA RECOMMENDATION SEE BELOW Normal [facility] Comment on above: Result Comment: ADA RECOMMENDED LIMIT 4.0 - 6.0 ADA THERAPEUTIC TARGET < 7.0 ACTION SUGGESTED > 7.0 Performed By: #### A 1C #### [facility] [address] [place] [address] [address] Becky Josue Glucose [Mass/Vol] 237 mg/dL Normal [facility] Comment on above: Performed By: #### A 1C #### [facility] [address] [place] [address] [address] Becky Josue HbA1c (Bld) [Mass fraction] 9.9 % Critically high 4.5-6.2 [facility] Comment on above: Performed By: #### A 1C #### [facility] [address] [place] [address] [address] Becky Josue IRONon 09-24-2022 Iron [Mass/Vol] 55.0 ug/dL Normal 50.0-170.0 [facility] Comment on above: Performed By: #### I ROBERT CLINE #### [facility] [address] [place] [address] [address] Becky Josue LIPID PROFILEon 09-24-2022 CHOL-HDL RATIO NORM SEE BELOW Normal [facility] Comment on above: Result Comment: 3.3 - 4.4 LOW RISK 4.4 - 7.1 AVERAGE RISK 7.1 - 11.0 MODERATE RISK >11.0 HIGH RISK Performed By: #### L IPID, CMP, TSH, T7 ####[facility] [address] [place], [place] [address]Ad. Becky Josue Cholesterol [Mass/Vol] 171 mg/dL Normal <=200 Th [facility] Comment on above: Performed By: #### L IPID, CMP, TSH, T7 ####[facility] [address] [place], [place] [address]Er. Becky Josue Cholesterol in HDL [Mass/Vol] 38 mg/dL Critically low 40-60 [facility] Comment on above: Performed By: #### L IPID, CMP, TSH, T7 ####[facility] [address] [place], [place] [address]Vf. Becky Josue Cholesterol in LDL [Mass/Vol] 101.6 mg/dL Normal [facility] Comment on above: Performed By: #### L IPID, CMP, TSH, T7 ####[facility] [address] [place] [id number]. Becky Josue Cholesterol.total/Padmini sterol in HDL [Mass ratio] 4.5 {ratio} Normal [facility] Comment on above: Performed By: #### L IPID, CMP, TSH, T7 ####[facility] [address] [place], [place] [address]Tf. Becky Josue HDL NORMAL > or = 60 mg/dl - LO W CARDIOVASCULAR RISK <40 mg/dl - HIGH CARDIOVASCULAR RISK Normal [facility] Comment on above: Performed By: #### L IPID, CMP, TSH, T7 ####[facility] [address] [place] [id number]. Becky Josue LDL CALC NORMAL SEE BELOW Normal [facility] Comment on above: Result Comment: <100 mg/dl OPTIMAL 100 - 129 mg/dl NEAR OR ABOVE OPTIMAL 130 - 159 mg/dl BORDERLINE HIGH 160 - 189 mg/dl HIGH >190 mg/dl VERY HIGH Performed By: #### L IPID, CMP, TSH, T7 ####[facility] [address] [place], [place] [address]Uj. Becky Josue Triglyceride [Mass/Vol] 157 mg/dL Critically high <=150 [facility] Comment on above: Performed By: #### L IPID, CMP, TSH, T7 ####[facility] [address] [place] [address]Dr. Becky Josue VLDL CALC 31.4 mg/dL Normal [facility] Comment on above: Performed By: #### L IPID, CMP, TSH, T7 ####[facility] [address] [place] [address]Dr. Becky Josue PROF 14(COMP METB)on 022 Albumin [Mass/Vol] 3.4 g/dL Normal 3.4-5.0 [facility] Comment on above: Performed By: #### L IPID, CMP, TSH, T7 ####[facility] [address] [place] [address]Dr. Becky Josue Albumin/Globulin [Mass ratio] 0.9 {ratio} Normal [facility] Comment on above: Performed By: #### L IPID, CMP, TSH, T7 ####[facility] [address] [place] [address]Dr. Becky Josue ALP [Catalytic activity/Vol] 106 U/L Normal 46-116 [facility] Comment on above: Performed By: #### L IPID, CMP, TSH, T7 ####[facility] [address] [place] [address]Dr. Becky Josue ALT [Catalytic activity/Vol] 39 U/L Normal 14-59 [facility] Comment on above: Performed By: #### L IPID, CMP, TSH, T7 ####[facility] [address] [place] [address]Dr. Becky Josue Anion gap [Moles/Vol] 6.9 mmol/L Normal [facility] Comment on above: Performed By: #### L IPID, CMP, TSH, T7 ####[facility] [address] [place] [address]Dr. Becky Josue AST [Catalytic activity/Vol] 44 U/L Critically high 15-37 [facility] Comment on above: Performed By: #### L IPID, CMP, TSH, T7 ####[facility] [address] [place] [address]Dr. Becky Josue Bilirubin [Mass/Vol] 1.1 mg/dL Critically high 0.2-1.0 [facility] Comment on above: Performed By: #### L IPID, CMP, TSH, T7 ####[facility] [address] [place] [id number]. Becky Josue Calcium [Mass/Vol] 9.4 mg/dL Normal 8.5-10.1 [facility] Comment on above: Performed By: #### L IPID, CMP, TSH, T7 ####[facility] [address] [place] [address]Dr. Becky Josue Chloride [Moles/Vol] 103 mmol/L Normal 98-107 [facility] Comment on above: Performed By: #### L IPID, CMP, TSH, T7 ####[facility] [address] [place] [address]Dr. Becky Josue CO2 [Moles/Vol] 31.3 mmol/L Normal 21.0-32.0 [facility] [place] [facility] Comment on above: Performed By: #### L IPID, CMP, TSH, T7 ####[facility] [address] [place] [address]Dr. Becky Josue Creatinine [Mass/Vol] 0.72 mg/dL Normal 0.55-1.02 [facility] Comment on above: Performed By: #### L IPID, CMP, TSH, T7 ####[facility] [address] [place] [address]Dr. Kellenkwadwo Joselo EGFR-AF ALGERIAN >60 Normal >=60 [facility] [place] [facility] Comment on above: Performed By: #### L IPID, CMP, TSH, T7 ####[facility] [address] [place] [id number]. Kellenkwadwo Joselo EGFR-NON AF ALGERIAN >60 Normal >=60 [facility] Comment on above: Performed By: #### L IPID, CMP, TSH, T7 ####[facility] [address] [place] [id number]. Becky Josue Globulin (S) [Mass/Vol] 4.0 g/dL Normal T [facility] Comment on above: Performed By: #### L IPID, CMP, TSH, T7 ####[facility] [address] [place] [address]Dr. Becky Josue Glucose [Mass/Vol] 315 mg/dL Critically high 74-106 [facility] Comment on above: Performed By: #### L IPID, CMP, TSH, T7 ####[facility] [address] [place] [address]Dr. Becky Josue Potassium [Moles/Vol] 4.2 mmol/L Normal 3.5-5.1 [facility] Comment on above: Performed By: #### L IPID, CMP, TSH, T7 ####[facility] [address] [place] [address]Dr. Becky Josue Protein [Mass/Vol] 7.4 g/dL Normal 6.4-8.2 [facility] Comment on above: Performed By: #### L IPID, CMP, TSH, T7 ####[facility] [address] [place] [address]Dr. Becky Josue Sodium [Moles/Vol] 137 mmol/L Normal 136-145 [facility] Comment on above: Performed By: #### L IPID, CMP, TSH, T7 ####[facility] [address] [place] [address]Dr. Becky Josue Urea nitrogen [Mass/Vol] 14.0 mg/dL Normal 7.0-18.0 [facility] Comment on above: Performed By: #### L IPID, CMP, TSH, T7 ####[facility] [address] [place] [address]Dr. Becky Josue Urea nitrogen/Creatinine [Mass ratio] 19.4 mg/mg Normal [facility] Comment on above: Performed By: #### L IPID, CMP, TSH, T7 ####[facility] [address] [place] [address]Dr. Becky Josue TSHon 09-24-2022 TSH 2.117 uIU/mL Normal 0.358-3.740 [facility] Comment on above: Performed By: #### L IPID, CMP, TSH, T7 ####[facility] [address] [place], [place] [address]Dr. Becky Josue VITAMIN D 25 OHon 09-24-2022 VIT D 25-OH 21.3 ng/mL Normal [facility] Comment on above: Performed By: #### I MARLYN VITAD #### [facility] [address] [place], [place] [address] Dr. Becky Josue VIT D RANGES SEE BELOW Normal [facility] Comment on above: Result Comment: <20 ng/mL Vit D deficient 20 - <30 ng/mL Vit D insufficient 30 - 100 ng/mL Vit D sufficient >100 ng/mL Potential Toxicity Performed By: #### I MARLYN VITAD #### [facility] [address] [place], [place] [address] Dr. Becky Josue COVID Quick Testingon 2020 Result Negative [employer] Other MG MAMM SCREEN 3D SVEN CADon 10-12-2021 MG MAMM SCREEN 3D SVEN CAD Patient: CONNIE BRIAN Exam Date: 10/12/2021 : 1955 Gender:F Ordering : DR MARYJANE VALENCIA . Admission #: [id number] Family : Order #: [id number] CLICK HERE TO VIEW EXAM RADIOLOGY REPORT [...] breast cancer at age 66. LOCATION: [facility] BREAST COMPOSITION: Scattered areas fibroglandular density. [...] Rosario M.D. on 10/13/2021 at 12:22 Normal [facility] CBC AUTO DIFFon 10-03-2021 BASO # 0.0 103/ul Normal 0.0-0.1 [facility] Comment on above: Performed By: #### C BC #### [facility] [address] [address] [address] Becky Josue Basophils/100 WBC (Bld) 0.4 % Normal 0.2-2.0 [facility] Comment on above: Performed By: #### C BC #### [facility] [address] [place] [address] Dr. Becky Josue EO # 0.2 103/ul Normal 0.0-0.7 [facility] Comment on above: Performed By: #### C BC #### [facility] [address] [place] [address] Dr. Becky Josue Eosinophils/100 WBC (Bld) 4.1 % Normal 0.9-7.0 [facility] Comment on above: Performed By: #### C BC #### [facility] [address] [place] [address] Dr. Becky Josue Erythrocyte distribution width (RBC) [Ratio] 14.5 % Normal 11.0-15.0 [facility] Comment on above: Performed By: #### C BC #### [facility] [address] [place] [address] Dr. Becky Josue Hematocrit (Bld) [Volume fraction] 43.5 % Normal 36.0-48.0 [facility] Comment on above: Performed By: #### C BC #### [facility] [address] [place] [address] Dr. Becky Josue Hemoglobin (Bld) [Mass/Vol] 13.7 g/dL Normal 12.0-16.0 [facility] Comment on above: Performed By: #### C BC #### [facility] [address] [place] [address] Dr. Becky Josue IG # 0.02 10e3/ul Normal 0.00-0.03 [facility] Comment on above: Performed By: #### C BC #### [facility] [address] [place] [address] Dr. Becky Josue IG % 0.4 % Normal 0.0-0.5 [facility] Comment on above: Performed By: #### C BC #### [facility] [address] [place] [address] Dr. Becky Josue LYMPH # 1.6 103/ul Normal 1.2-3.8 [facility] Comment on above: Performed By: #### C BC #### [facility] [address] [place] [address] Dr. Becky Josue Lymphocytes/100 WBC (Bld) 32.0 % Normal 20.5-60.0 [facility] Comment on above: Performed By: #### C BC #### [facility] [address] [place] [address] Dr. Becky Josue MANUAL DIFF REQ NO Normal [facility] Comment on above: Performed By: #### C BC #### [facility] [address] [place] [address] Dr. Becky Josue MCH (RBC) [Entitic mass] 29.5 pg Normal 26.7-34.0 [facility] Comment on above: Performed By: #### C BC #### [facility] [address] [place] [address] Dr. Becky Josue MCHC (RBC) [Mass/Vol] 31.5 g/dL Normal 29.9-35.2 [facility] Comment on above: Performed By: #### C BC #### [facility] [address] [place] [address] Dr. Becky Josue MCV (RBC) [Entitic vol] 93.5 fL Normal 81.0-99.0 [facility] Comment on above: Performed By: #### C BC #### [facility] [address] [place] [address] Dr. Becky Josue MONO # 0.4 103/ul Normal 0.3-0.8 [facility] Comment on above: Performed By: #### C BC #### [facility] [address] [place] [address] Dr. Becky Josue Monocytes/100 WBC (Bld) 8.8 % Normal 1.7-12.0 [facility] Comment on above: Performed By: #### C BC #### [facility] [address] [place] [address] Dr. Becky Josue NEUT # 2.7 103/ul Normal 1.4-6.5 [facility] Comment on above: Performed By: #### C BC #### [facility] [address] [place] [address] Dr. Becky Josue Neutrophils/100 WBC (Bld) 54.3 % Normal 43.0-75.0 [facility] Comment on above: Performed By: #### C BC #### [facility] [address] [place] [address] Dr. Becky Josue Platelet mean volume (Bld) [Entitic vol] 10.4 fL Normal 9.5-13.5 [facility] Comment on above: Performed By: #### C BC #### [facility] [address] [place] [address] Dr. Becky Josue PLT 158 103/ul Normal 150-450 [facility] Comment on above: Performed By: #### C BC #### [facility] [address] [place] [address] Dr. Becky Josue RBC 4.65 106/ul Normal 4.20-5.40 [facility] Comment on above: Performed By: #### C BC #### [facility] [address] [place] [address] Dr. Becky Josue WBC 4.9 103/ul Normal 4.0-11.0 [facility] Comment on above: Performed By: #### C BC #### [facility] [address] [place] [address] Dr. Becky Josue FREE THYROXINE INDEX T7on FTI 2.79 Normal [facility] Comment on above: Performed By: #### L IPID, CMP, T7, TSH ####[facility] [id number] [place] [id number] Josue T3U 30.0 % Normal 23.5-40.5 [facility] Comment on above: Performed By: #### L IPID, CMP, T7, TSH ####[facility] [id number] [place] [id number] Josue T4 [Mass/Vol] 9.30 ug/dL Normal 5.53-11.00 [facility] Comment on above: Performed By: #### L IPID, CMP, T7, TSH ####[facility] [id number] [place] [id number] Josue GLYCOHEMOGLOBIN A1Con 2020 ADA RECOMMENDATION ADA THERAPEUTIC TARG ET 6.0 - 7.0 ACTION SUGGESTED > 7.0 Normal [facility] Comment on above: Performed By: #### A 1C #### [facility] [address] [address] [address] Becky Josue Glucose [Mass/Vol] 229 mg/dL Normal [facility] Comment on above: Performed By: #### A 1C #### [facility] [address] [address] [address] Becky Josue HbA1c (Bld) [Mass fraction] 9.6 % Critically high <=6.0 [facility] Comment on above: Performed By: #### A 1C #### [facility] [address] [address] [address] Becky Josue IRONon 10-03-2021 Iron [Mass/Vol] 62.0 ug/dL Normal 37.0-170.0 [facility] Comment on above: Performed By: #### I MARLYN #### [facility] [address] [address] [address] Becky Josue LIPID PROFILEon 10-03-2021 CHOL-HDL RATIO NORM SEE BELOW Normal [facility] Comment on above: Result Comment: 3.3 - 4.4 LOW RISK 4.4 - 7.1 AVERAGE RISK 7.1 - 11.0 MODERATE RISK >11.0 HIGH RISK Performed By: #### L IPID, CMP, T7, TSH #### [facility] [address] [address] [address] Becky Josue Cholesterol [Mass/Vol] 172 mg/dL Normal <=200 [facility] Comment on above: Performed By: #### L IPID, CMP, T7, TSH #### [facility] [address] [address] [address] Becky Josue Cholesterol in HDL [Mass/Vol] 38 mg/dL Normal [facility] Comment on above: Performed By: #### L IPID, CMP, T7, TSH #### [facility] [address] [place] [address] Dr. Becky Josue Cholesterol in LDL [Mass/Vol] 89.0 mg/dL Normal [facility] Comment on above: Performed By: #### L IPID, CMP, T7, TSH #### [facility] [address] [place] [address] Dr. Becky Josue Cholesterol.total/Padmini sterol in HDL [Mass ratio] 4.5 {ratio} Normal [facility] Comment on above: Performed By: #### L IPID, CMP, T7, TSH #### [facility] [address] [address] [address] Becky Josue HDL NORMAL > or = 60 mg/dl - LO W CARDIOVASCULAR RISK <40 mg/dl - HIGH CARDIOVASCULAR RISK Normal [facility] Comment on above: Performed By: #### L IPID, CMP, T7, TSH #### [facility] [address] [place] [address] Dr. Becky Josue LDL CALC NORMAL SEE BELOW Normal [facility] Comment on above: Result Comment: <100 mg/dl OPTIMAL 100 - 129 mg/dl NEAR OR ABOVE OPTIMAL 130 - 159 mg/dl BORDERLINE HIGH 160 - 189 mg/dl HIGH >190 mg/dl VERY HIGH Performed By: #### L IPID, CMP, T7, TSH #### [facility] [address] [address] [address] Becky Josue Triglyceride [Mass/Vol] 225 mg/dL Critically high <=150 [facility] Comment on above: Performed By: #### L IPID, CMP, T7, TSH #### [facility] [address] [address] [address] Becky Josue VLDL CALC 45.0 mg/dL Normal [facility] Comment on above: Performed By: #### L IPID, CMP, T7, TSH #### [facility] [address] [address] [address] Becky Josue PROF 14(COMP METB)on 021 Albumin [Mass/Vol] 3.1 g/dL Critically low 3.5-5.0 [facility] Comment on above: Performed By: #### L IPID, CMP, T7, TSH #### [facility] [address] [place] [address] Dr. Becky Josue Albumin/Globulin [Mass ratio] 0.8 {ratio} Normal [facility] Comment on above: Performed By: #### L IPID, CMP, T7, TSH #### [facility] [address] [place] [address] Dr. Becky Josue ALP [Catalytic activity/Vol] 100 U/L Normal 38-126 [facility] Comment on above: Performed By: #### L IPID, CMP, T7, TSH #### [facility] [address] [place] [address] Dr. Becky Josue ALT [Catalytic activity/Vol] 35 U/L Normal 9-52 [facility] Comment on above: Performed By: #### L IPID, CMP, T7, TSH #### [facility] [address] [address] [address] Becky Josue Anion gap [Moles/Vol] 13.0 mmol/L Normal [facility] Comment on above: Performed By: #### L IPID, CMP, T7, TSH #### [facility] [address] [place] [address] Dr. Becky Josue AST [Catalytic activity/Vol] 27 U/L Normal 14-36 [facility] Comment on above: Performed By: #### L IPID, CMP, T7, TSH #### [facility] [address] [address] [address] Becky Josue Bilirubin [Mass/Vol] 0.8 mg/dL Normal 0.2-1.3 [facility] Comment on above: Performed By: #### L IPID, CMP, T7, TSH #### [facility] [address] [place] [address] Dr. Becky Josue Calcium [Mass/Vol] 8.9 mg/dL Normal 8.4-10.2 [facility] Comment on above: Performed By: #### L IPID, CMP, T7, TSH #### [facility] [address] [place] [address] Dr. Becky Josue Chloride [Moles/Vol] 103 mmol/L Normal 98-107 [facility] Comment on above: Performed By: #### L IPID, CMP, T7, TSH #### [facility] [address] [place] [address] Dr. Becky Josue CO2 [Moles/Vol] 30.3 mmol/L Critically high 22.0-30.0 [facility] Comment on above: Performed By: #### L IPID, CMP, T7, TSH #### [facility] [address] [place] [address] Dr. Becky Josue Creatinine [Mass/Vol] 0.72 mg/dL Normal 0.52-1.04 [facility] Comment on above: Performed By: #### L IPID, CMP, T7, TSH #### [facility] [address] [place] [address] Dr. Becky Josue EGFR-AF ALGERIAN >60 Normal >=60 [facility] Comment on above: Performed By: #### L IPID, CMP, T7, TSH #### [facility] [address] [place] [address] Dr. Becky Josue EGFR-NON AF ALGERIAN >60 Normal >=60 [facility] Comment on above: Performed By: #### L IPID, CMP, T7, TSH #### [facility] [address] [place] [address] Dr. Becky Josue Globulin (S) [Mass/Vol] 3.9 g/dL Normal [facility] Comment on above: Performed By: #### L IPID, CMP, T7, TSH #### [facility] [address] [address] [address] Becky Josue Glucose [Mass/Vol] 261 mg/dL Critically high 74-106 [facility] Comment on above: Performed By: #### L IPID, CMP, T7, TSH #### [facility] [address] [address] [address] Becky Josue Potassium [Moles/Vol] 4.3 mmol/L Normal 3.4-5.0 [facility] Comment on above: Performed By: #### L IPID, CMP, T7, TSH #### [facility] [address] [address] [address] Becky Josue Protein [Mass/Vol] 7.0 g/dL Normal 6.1-8.2 [facility] Comment on above: Performed By: #### L IPID, CMP, T7, TSH #### [facility] [address] [address] [address] Becky Josue Sodium [Moles/Vol] 142 mmol/L Normal 137-145 [facility] Comment on above: Performed By: #### L IPID, CMP, T7, TSH #### [facility] [address] [address] [address] Becky Josue Urea nitrogen [Mass/Vol] 22.0 mg/dL Critically high 7.0-17.0 [facility] Comment on above: Performed By: #### L IPID, CMP, T7, TSH #### [facility] [address] [address] [address] Becky Josue Urea nitrogen/Creatinine [Mass ratio] 30.6 mg/mg Normal [facility] Comment on above: Performed By: #### L IPID, CMP, T7, TSH #### [facility] [address] [address] [address] Becky Josue TSHon 10-03-2021 TSH 2.809 uIU/mL Normal 0.470-4.680 [facility] Comment on above: Performed By: #### L IPID, CMP, T7, TSH ####[facility] [id number] [place], [place] [address]Xd. Becky Josue TSH RANGE SEE BELOW Normal [facility] Comment on above: Result Comment: <0.3 4 UIU/ml HYPERTHYROID 0.34-5.60 UIU/ml EUTHYROID >5.60 UIU/ml HYPOTHYROID Performed By: #### L IPID, CMP, T7, TSH ####[facility] [id number] [place], [place] [address]Tv. Becky Josue Vital Signs Date Time Vital Sign Value Performing Clinician Facility 02-12-2025 12:31-0400 Body height 167.64 cm Howard Hay DO Work Phone: [facility] 02-12-2025 12:31-0400 Body mass index (BMI) [Ratio] 33 kg/m2 Howard Hay DO Work Phone: [facility] 02-12-2025 12:31-0400 Body temperature 98.4 [degF] Howard Hay DO Work Phone: [facility] 02-12-2025 12:31-0400 Body weight 92.7 kg Howard Hay DO Work Phone: [facility] 02-12-2025 12:31-0400 Diastolic blood pressure 66 mm[Hg] Howard Hay DO Work Phone: [facility] 02-12-2025 12:31-0400 Heart rate 73 /min Howard Hay DO Work Phone: [facility] 02-12-2025 12:31-0400 Respiratory rate 12 /min Howard Hay DO Work Phone: [facility] 02-12-2025 12:31-0400 SaO2% (BldA) [Mass fraction] 96 % Howard Hay DO Work Phone: [facility] 02-12-2025 12:31-0400 Systolic blood pressure 151 mm[Hg] Howard Johnston DO Work Phone: [facility] 10-03-2024 14:06-0500 Blood Pressure Location Manoj DAMON [facility] 10-03-2024 14:06-0500 Diastolic blood pressure 68 mm[Hg] Manoj KEYL [facility] 10-03-2024 14:06-0500 Heart rate 72 /min Manoj KEYL [facility] 10-03-2024 14:06-0500 Respiratory rate 16 /min Manoj KEYL [facility] 10-03-2024 14:06-0500 Systolic blood pressure 132 mm[Hg] Manoj KEYL [facility] 02-16-2022 12:30-0400 Body height 167.64 cm Ashley Cox Other [facility] Other 02-16-2022 12:30-0400 Body mass index (BMI) [Ratio] 34.21 kg/m2 Ashley Cox Other [facility] Other 02-16-2022 12:30-0400 Body temperature 97.8 [degF] Ashley Cox Other [facility] Other 02-16-2022 12:30-0400 Body weight 96.16 kg Ashley Cox Other [facility] Other 02-16-2022 12:30-0400 Respiratory rate 18 /min Ashley Cox Other [facility] Other 02-16-2022 12:30-0400 SaO2% (BldA) [Mass fraction] 97 % Ashley Cox Other [facility] [email or web address] Other Encounters Encounter Date Encounter Type Care Provider Facility Start: 06-13-2025 Evaluation and management of inpatient [facility] Start: 06-13-2025 ambulatory [facility] Start: 06-13-2025 End: 06-15-2025 Evaluation and management of inpatient [facility] Start: 05-28-2025 End: 05-28-2025 ambulatory JESSICA [facility] Start: 04-25-2025 End: 04-25-2025 Evaluation and management of inpatient JESUS Jordan MARBIN [facility] Start: 04-23-2025 End: 04-23-2025 ambulatory [facility] Start: 04-10-2025 End: 04-10-2025 ambulatory MARYJANE VALENCIA [facility] Start: 04-10-2025 End: 04-10-2025 ambulatory DAMIAN [facility] Start: 04-01-2025 ambulatory [facility] Start: 03-05-2025 End: 03-05-2025 ambulatory Maryjane Valencia Facility:[facility] Start: 03-05-2025 End: 03-05-2025 Departed Referred Maryjane Valencia MD Work Phone: [facility] Start: 02-26-2025 End: 02-26-2025 ambulatory [facility] Start: 02-12-2025 End: 02-12-2025 ambulatory Howard Johnston DO Work Phone: [facility] Work Phone: Start: 02-12-2025 End: 02-12-2025 Patient encounter procedure Howard Johsnton DO Work Phone: [facility] Work Phone: Start: 02-07-2025 ambulatory ROGERS [facility] Start: 01-29-2025 End: 01-29-2025 ambulatory JESUS ZAZUETA [facility] Start: 01-23-2025 End: 01-23-2025 ambulatory DAMIAN GOMEZ [facility] Start: 01-23-2025 End: 01-23-2025 ambulatory DAMIAN [facility] Start: 01-03-2025 ambulatory ROGERS [facility] Start: 12-18-2024 End: 12-18-2024 ambulatory [facility] Start: 12-03-2024 ambulatory [facility] Start: 11-27-2024 End: 11-27-2024 ambulatory Manoj DAMON Facility:[facility] Start: 11-27-2024 End: 11-27-2024 Patient encounter procedure Manoj DAMON [facility] [place] Start: 11-18-2024 End: 11-19-2024 Non-patient / Non-visit Howard Johnston DO Work Phone: [facility] Work Phone: Start: 11-15-2024 End: 11-15-2024 ambulatory Lon Del Rosario Facility:[facility] Start: 11-15-2024 End: 11-15-2024 Departed Referred Howard Johnston DO Work Phone: [facility] Start: 11-14-2024 End: 11-14-2024 ambulatory Howard Johnston Facility:[facility] Start: 11-14-2024 End: 11-14-2024 Departed Referred Howard Johnston DO Work Phone: [facility] Start: 11-09-2024 End: 11-09-[address] [facility] Start: 11-07-2024 End: 11-07-2024 ambulatory Manoj Damon Facility:[facility] Start: 11-07-2024 End: 11-07-2024 ambulatory Manoj DAMON Facility:[id number] Start: 11-02-2024 ambulatory [facility] Start: 10-22-2024 ambulatory [facility] Start: 10-08-2024 ambulatory [facility] Start: 10-03-2024 End: 10-03-2024 ambulatory Maryjane Valencia Facility:[facility] Start: 10-03-2024 End: 10-03-2024 Patient encounter procedure Manoj DAMON [facility] [place] Start: 09-13-2024 ambulatory [facility] Start: 09-03-2024 ambulatory [facility] Start: 08-06-2024 End: 08-06-2024 ambulatory [facility] Start: 07-03-2024 End: 07-03-2024 ambulatory [facility] Start: 09-24-2022 End: 09-25-[address] MARYJANE VALENCIA Facility:[facility] Start: 02-16-2022 End: 02-16-2022 ambulatory Ashley Cox Other [employer] Other Start: 02-16-2022 Office outpatient vi sit 15 minutes Ashley Cox [facility] Start: 10-26-2021 End: 10-26-2021 ambulatory Soco Hernandez Other [facility] Other Start: 10-26-2021 Office outpatient vi sit 5 minutes Soco Hernandez [facility] Start: 10-12-2021 End: 10-13-[address] MARYJANE VALENCIA Facility:[facility] Start: 10-08-2021 Encounter for genera l adult medical examination without abnormal findings DR MARYJANE VALENCIA [facility] Start: 10-03-2021 End: 10-04-[address] [...] in Blood by Culture Howard Johnston DO [employer] Phone: Start: 11-14-2024 Urine culture Howard Johnston DO [employer] Phone: Start: 11-07-2024 Colonoscopy Manoj NILL Start: [...] Activity Detail Author Start: 03-05-2025 Urine culture [facility] Start: 03-05-2025 Bacteria identified in Urine by Culture Urine Culture [facility] Immunizations Immunization Date Immunization Notes Care Provider Fa cililatha 11-09-2021 SARS-CoV-2 (COVID-19 ) mRNA BNT-162b2 vax Manoj DAMON [facility] 01-25-2021 SARS-CoV-2 (COVID-19 ) Ad26 vaccine, recombinant Manoj DAMON [facility] Payers Date Payer Category Payer Medicare [id number] 2024 Self-pay 2021 Medicare [id number] 2.1 [id number] 1959 Unknown [id number] 2. [id number] 1955 Unknown [id number] 2.16.84 [id number] 1956 Unknown [id number] 2.16.84 [id number] 1956 Unknown [id number] 2.16.84 [id number] 1956 Unknown [id number] 2.16.8 [id number] 1956 Unknown [id number] 2.16.8 [id number] 1956 Unknown [id number] 2.16.8 [id number] 1956 Unknown [id number] 2.16. [id number] 1956 Unknown [id number] 2.16. [id number] 1956 Unknown [id number] 2.16. [id number] Unknown [id number] 2.16.8 [id number] Unknown [id number] 2.16.8 [id number] Unknown [id number] 2.16.8 [id number] Unknown [id number] 2.16.8 [id number] Social History Date Type Detail Facility Sex Assigned At [facility] Start: 02-16-2022 End: 10-03-2024 Tobacco smoking status Never smoked tobacco (finding) 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 [facility] 07-24-2025 Note -- Attestation signed by Rogers [...] call with any questions. Angie Haque PGY-4 End Packer [facility] 06-13-2025 Note ATRIAL FIBRILLATION ABLATION PROCEDURE NOTE DATE OF PROCEDURE: 06/13/2025 PERFORMING PHYSICIAN: Dr. Rogers Catalan APPRENTICE FUNERAL DIRECTOR: REJI CONSENT: Patient NAME OF THE PROCEDURE: [...] with Vascade seal. She was transferred to [facility] for observation. LA baseline (mmHg) 17/11 HR [...] hrs of sh (more content not included)... 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 No notable events documented. 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 Drug use: Never [facility] 06-13-2025 Note Airway Date/Time: 06/13/2025 9:06 AM Reason: elective Airway not difficult General Information and Staff Patient location during procedure: [place] Anesthesiologist: Dayo Thomson MD Resident/SUPERVISORY FORESTER/CAA: Jhonathan Hernandez MD Performed: resident/SUPERVISORY FORESTER/CAA Patient Condition Indications for airway management: anesthesia [...] 1 Number of other approaches attempted: 0 [facility] 05-28-2025 Note [facility] Gastroenterolog y Connie Brian is a 69 [...] in this pleasant patient???s care. Jessica Oates [facility] 04-23-2025 Note [facility] Electrophysiology Consult Note [facility] Clinic Reason for visit: Afib 04/23/2025 [...] 02/26/25 Patient here for follow up from [facility]. Patient had fluid taken off and aslo had blood transfusions. Patient states she had an at [facility]. EGD showed 3 bleeding ulcers. Patient [...] palpitations. She was recently seen at the [facility] for A-fib RVR as she was [...] show any evidence of reversible ischemia. below [id number] at least 4 for age, gender, hypertension, [...] Reactions Sulfa (Sulfona (more content not included)... [facility] 04-10-2025 Note -- Attestation signed by Damian Gomez MD at 04/10/2025 8:58 PM Seen and discussed with fellow, agree with assessment and plan. -- [facility] Gastroenterology History & Physical CHIEF COMPLAINT Chief [...] Colonoscopy was done at Dr. Turpin at [facility] 11/06/2025 EGD 01/29/25: Findings: The examination [...] Past Surgical Hi (more content not included)... [facility] 02-26-2025 Note NM Electrophysiology Consult Note [facility] Clinic Reason for visit: Afib 02/26/25 Patient here for follow up from [facility]. Patient had fluid taken off and aslo had blood transfusions. Patient states she had an at [facility]. EGD showed 3 bleeding ulcers. Patient [...] palpitations. She was recently seen at the [facility] for A-fib RVR as she was admitted for diarrhea and palpitations. She was found to have C. difficile and was treated with antibiotics and converted to sinus rhythm on her own. She states she normally would get palpitations when she drinks caffeine and typically avoids caffeine, the day of her admission she believes she was given caffeinated coffee at [facility] and then began experience palpitations while already dealing with her diarrhea so she was seen by ER. She had also been experiencing lower extremity swelling and was diuresed and patient which has resolved. She for some reason was deferred to [facility] for follow up and stress test [...] show any evidence of reversible ischemia. below [id number] at least 4 for age, gender, hypertension, [...] 0 diclofenac (Voltaren) (more content not included)... [facility] 02-12-2025 Evaluation note Diagnosis Onset Date Resolution Skin tear of left lower leg without complication noneactive February 12, 2025 12:04pm Skin tear of left forearm without complication noneactive February 12, 2025 12:04pm [facility] Work Phone: 1(326) 325-523103-11-2025 NotePatient: Connie Brian Procedure Summary Date: 01/29/25 Room / Location: [facility] Invasive Surgery [facility] Anesthesia Start: 1155 Anesthesia Stop: 1223 [...] PACU per anesthesia protocol. No notable events documented.[facility]03-11-2025 Note Patient: Connie Brian Procedure Information Date/Time: 01/29/25 1200 Scheduled providers: Jesus Zazueta MD; Henry Bull MD; KAILA Jeronimo Procedure: EGD Location: [facility] Invasive Surgery [facility] Relevant Problems Cardio ECHO 2023 LEFT [...] patient. Plan discussed with KAILA. [facility] Note Attestation signed by Damian Gomez MD at 01/23/2025 3:48 PM Seen and discussed with fellow, agree with assessment and plan. [facility] Gastroenterology New Patient Visit - History & Physical CHIEF COMPLAINT Chief Complaint Patient presents with New Patient EGD scheduled, was at [facility] and sent for an EGD but [...] LABS/IMAGING/ENDOSCOPY: EGD and Colonoscopy was done in [facility] 11/06/2025 HISTORY: Problem list: Patient Active Problem [...] Medications: Current Outpatient Medic (more content not included)...[facility]01-28-2025 NoteUT Electrophysiology Consult Note [facility] Clinic Reason for visit: Patient here for follow up [facility] per Dr. Espinoza. 12/19/24 She was [...] palpitations. She was recently seen at the [facility] for A-fib RVR as she was admitted for diarrhea and palpitations. She was found to have C. difficile and was treated with antibiotics and converted to sinus rhythm on her own. She states she normally would get palpitations when she drinks caffeine and typically avoids caffeine, the day of her admission she believes she was given caffeinated coffee at [facility] and then began experience palpitations while [...] show any evidence of reversible ischemia. below [id number] at least 4 for age, gender, hypertension, [...] the morning. venlafaxine XR (more content not included)...[facility] 11-09-2024 NoteUT Cardiology - [facility] Subjective Connie Brian is a [...] RVR when she was admitted to the [facility] with diarrhea due to C. difficile [...] 83 Ht 1.676 m (more content not included)...[facility] 10-03-2024 NoteGeneral Surgery Office/Clinic Note Chief Complaint [...] Eliquis 5 mg oral (more content not included)...[facility] Comment on above:Result Comment: Electronically Signed By: JOSE ALBERTO MARRERO, Manoj Hernandez.cruz\Date and Time Signed: 10/03/24 14:54 [id number] NoteLOOP IMPLANT PROCEDURE NOTE DATE OF PROCEDURE: 08/06/24 PERFORMING PHYSICIAN: Dr. Rogers Catalan APPRENTICE FUNERAL DIRECTOR: REJI INDICATIONS FOR PROCEDURE: 1. SVT/AF [...] the sternum on the left using the Sepaton tool. The loop recorder was then injected [...] wet the incision. Rogers Catalan MD Cardiac Electrophysiology.[facility]08-13-2024 NoteUT Electrophysiology Consult Note [facility] Clinic Reason for visit: Afib 07/03/24 Pt is doing well and occasionally feels palpitations. HPI: Connie Brian is a 68 y.o. year old with past medical history of Hypertension, diabetes, dyslipidemia, palpitations. She was recently seen at the [facility] for A-fib RVR as she was admitted for diarrhea and palpitations. She was found to have C. difficile and was treated with antibiotics and converted to sinus rhythm on her own. She states she normally would get palpitations when she drinks caffeine and typically avoids caffeine, the day of her admission she believes she was given caffeinated coffee at [facility] and then began experience palpitations while already dealing with her diarrhea so she was seen by ER. She had also been experiencing lower extremity swelling and was diuresed and patient which has resolved. She for some reason was deferred to [facility] for follow up and stress test [...] show any evidence of reversible ischemia. below [id number] at least 4 for age, gender, hypertension, [...] fibrillation (CMS/HCC) C. difficile colitis Diabetes mellitus ([facility]) Hyperlipidemia Hypertension PSH: Past Surgical [...] lesions on external ear (more content not included)...[facility]03-29-2022 Evaluation note* Encounter Date Diagnosis Assessment Notes [...] exam and duration of symptoms. May use Delphi or Flonase as directed. May use Zofran [...] Patient care instructions given in writting by [facility] document [employer] Other 12-06-2021 Evaluation note* Encounter Date Diagnosis [...] Patient care instructions given in writting by [facility] document. [employer] Other Evaluation + Plan note No data available for this section [facility] [place] Evaluation noteNo assessment information available [facility] Work Phone: History general Narrative - Reported* Type Description Date Medical History Diabetes Medical History HTN (hypertension) Medical History Anxiety Medical History Uterine cancer Surgical History hysterectomy Surgical History C section Surgical History tonsillectomy Surgical History appendectomy Surgical History cholecystectomy Surgical History colonoscopy Surgical History biopsy Hospitalization History pneumonia Hospitalization History see above [employer] Other Hospital Discharge instructions No data available for this section [facility] Progress note No data available for this section [facility] Summary Purpose Family History No Family History [...] CREATED AUTHOR AUTHOR'S ORGANIZ ATION [facility]/30/2024 [facility] CREATED AUTHOR AUTHOR'S ORGANIZ ATION 03/08/2025 [facility] DATE CREATED AUTHOR AUTHOR'S ORGANIZ ATION 04/26/2025 [facility] DATE CREATED AUTHOR AUTHOR'S ORGANIZ ATION 06/29/2025 [facility] Patient Care team informatio n (unrecognized [...] BE BASED ON THE PRIMARY CLINICAL RECORDS. Results [employer] [facility]. provides no warranty or guarantee of the accuracy or completeness of information in this document.
--- OUTSIDE RECORDS SUMMARY | 2025-07-11 18:40 | XMS_ITS | CCD ---
Author Organization [facility] Care Team Providers Care Machine Molder Name Role Phone Soco Hernandez Unavailable [facility] [...] Provider Lon Del Rosario MD Attending Provider [phone] Maryjane Valencia Admitting Unavailable Maryjane Valencia Attending Unavailable Manoj Damon Admitting Unavailable Manoj Damon Attending Unavailable Howard Johnston Admitting Unavailable Howard Johnston Attending Unavailable Lon Del Rosario Admitting Unavailable Lon Del Rosario Attending Unavailable Maryjane Valencia MD Attending Provider [phone] DAMIAN GOMEZ Referring Unavailable MARYJANE VALENCIA Primary [...] Facility (3 sources) Sulfacetamide Drug Allergy 2 [facility] (1 source) Sulfonamides (Antibiotic) Drug allergy (disorder) 8 [facility] Repository (3 sources) Sulfonamides (Antibiotic); Translations: [sulfa drugs] Drug allergy Weal (disorder) [facility] (5 sources) Sulfonamides (Antibiotic); Translations: [Sulfa (Sulfonamide Antibiotics)] Allergy to substance 9 [facility] (1 source) Sulfacetamide Drug Allergy 2 [facility] Repository Medications Current Medications Medication Drug Class(es) Dates Sig (Normalized) Sig (Original) [id number] actuat albuterol 0.09 mg/actuat metered dose [...] 1.5 mg/ml oral solution (1 source) Uncompetitive R-xikvgu-W-aspartate Receptor Antagonist, Sigma-1 Agonist Start: 02-17-20 take 10 mL by mouth every eight hours Hearne DM 7.5-7.5 MG/5ML 10 mL Orally every [...] Start: 04-28-[address] take [address] [facility] twice daily metformin 500 mg Tab [...] Start: 04-28-2020 take [address] [facility] once daily ramipril 10 mg Cap 10 mg = 1 cap(s), Oral, Daily, Refills(s) 0 Start Date: 04/28/20 Status: Ordered simvastatin 20 mg oral tablet (5 sources) HMG-CoA Reductase Inhibitor Start: 02-12-2025 take 1 tablet by mouth once daily Simvastatin 20 mg tablet Active 20 MG PO Daily February 12, 2025 12:00am Start: 04-28-2020 take 1 tablet by [facility] once daily at bedtime simvastatin 20 mg [...] 12:00am Start: 04-28-2020 take 1 capsule by [facility] once daily venlafaxine 75 mg Cap-ER 75 mg = 1 cap(s), Oral, Daily, Refills(s) 0 Start Date: 04/28/20 Status: Ordered Vitamin D-3 1000 UNIT (2 sources) Vitamin D-3 1000 UNIT Orally Active Completed/Discontinued Medications Medication Drug Class(es) Dates Sig (Normalized) Sig (Original) Acetaminophen / HYDROcodone (2 sources) Opioid Agonist Start: 07-09-2015 take 1 tablet by mouth every six hours as needed for pain [place] 5-325 MG 1 tablet Orally every 6 hrs as needed for pain Jun, Not-Taking Start: 07-09-2015 take 1 tablet by abelino th every six hours as needed for pain [place] 5-325 MG 1 tablet Orally every 6 [...] Interpretation Reference Range Facility Telephoneon 06-28-2025 Telephone [id number] Connie Brian 1955 F Date Provider Department Center 06/28/2025 [facility] Family History Problem Relation Age of Onset No Known Problems Mother Diabetes Father No Known Problems Sister Heart disease Brother Family Status - Relation Status Age at Mother Father Sister Alive Brother Reason for Visit and Comments: f/u post ablation [Other] Normal [facility] 36on 06-17-2025 36 Patient contacted regarding normal VCE results. No indications for reason for anemia. Partner asked why she continues to be anemic. Advised that there is no GI reason for anemia and to consult with PCP for possible Hematology referral for further evaluation. Expressed inderstanding [facility] 30on 06-15-2025 30 The patient is Moderately Stable - Low risk of patient condition declining or worsening The patient's goals for the shift include Comfort and rest The clinical goals for the shift include VSS and safety [facility] 30 The patient is Moderately Stable [...] and behaviors that affect risk of falls Bowlus fall precautions as indicated by assessment Educate [...] and prevent overall improvement and discharge Normal [facility] DSon 06-15-2025 DS Admission Admitted 06/13/2025 [...] Your Medications These medications were sent to [id number] [address] [place] [phone] furosemide 20 mg tablet magnesium oxide 400 [...] = 4) episode of afib RVR 2023 ([facility]), diabetes, and newly diagnosed liver cirrhosis who [...] enteroscopy. This was done 04/24/[address] aZzueta and showed normal examined duodenum with a [...] lethargic ye (more content not included)... Normal [facility] DS Delete, note made in error Normal [facility] POCT GLUCOSE METER UNSOLICIT ED RESULTSon 06-15-2025 Glucose [Mass/Vol] 262 mg/dL High 70-105 [facility] Comment on above: Order Comment: Waive d Testing in the ED is performed under the ED CLIA certificate #[id number]. Result Comment: clar com Performed By: #### L [id number] #### [facility] ([facility]) [address] [place] [address] Glucose [Mass/Vol] 259 mg/dL High 70-105 [facility] Comment on above: Order Comment: Waive d Testing in the ED is performed under the ED CLIA certificate #[id number]. Result Comment: clar com Performed By: #### L [id number] #### [facility] ([facility]) [address] [place] [address] Glucose [Mass/Vol] 237 mg/dL High 70-105 [facility] Comment on above: Order Comment: Waive d Testing in the ED is performed under the ED CLIA certificate #[id number]. Result Comment: [email or web address] Performed By: #### L [id number] #### [facility] ([facility]) [address] [place] [address] 30on 06-14-2025 30 The patient is Moderately Stable - Low risk of patient condition declining or worsening The patient's goals for the shift include Comfort and rest The clinical goals for the shift include VSS and safety Normal [facility] BILIRUBIN, DIRECTon 06-14-20 25 Magnesium [Mass/Vol] 0.1 mg/dL Normal 0-0.2 [facility] Comment on above: Performed By: #### L [id number] #### [facility] ([facility]) [address] [place] [address] BILIRUBIN, TOTALon 5 Bilirubin [Mass/Vol] 0.9 mg/dL Normal 0.3-1.0 [facility] Comment on above: Performed By: #### L [id number] #### [facility] ([facility]) [address] [place] [address] CBCon 06-14-2025 Erythrocyte distribution width (RBC) [Ratio] 16.5 % High 11.5-15.0 [facility] Comment on above: Performed By: #### L [id number] #### [facility] ([facility] [address] [place] [id number] ERYTHROCYTE MEAN CORPUSCULAR HEMOGLOBIN CONCENTRATION (G/DL) BY AUTOMATED 30.4 g/dL Low 32.0-35.0 [facility] Comment on above: Performed By: #### L [id number] #### [facility] ([facility]) [address] [place] [id number] Hematocrit (Bld) [Volume fraction] 24.0 % Low 36.0-45.0 [facility] Comment on above: Performed By: #### L [id number] #### [facility] ([facility]) [address] [place] [id number] Hemoglobin (Bld) [Mass/Vol] 7.3 g/dL Low 12.0-15.0 [facility] Comment on above: Performed By: #### L [id number] #### [facility] ([facility] [address] [place] [id number] MCH (RBC) [Entitic mass] 23.2 pg Low 27.0-33.0 [facility] Comment on above: Performed By: #### L [id number] #### [facility] ([facility] [address] [place] [id number] MCV (RBC) [Entitic vol] 76.2 fL Low 82.0-98.0 [facility] Comment on above: Performed By: #### L [id number] #### [facility] ([facility] [address] [place] [id number] PLATELETS (10*3/UL) IN BLOOD AUTOMATED COUNT 176 10*3/uL Normal 150-400 [facility] Comment on above: Performed By: #### L [id number] #### [facility] ([facility] [address] [place] [id number] RBC (Bld) [#/Vol] 3.15 10*6/uL Low 3.80-5.00 [facility] Comment on above: Performed By: #### L [id number] #### [facility] ([facility]) [address] [place] [id number] WBC (Bld) [#/Vol] 7.00 10*3/uL Normal 4.00-10.60 [facility] Comment on above: Performed By: #### L [id number] #### [facility] ([facility]) [address] [place] [id number] DSon 06-14-2025 DS Admission Admitted 06/13/2025 for [...] Your Medications These medications were sent to [id number] - [place], [place] - [address] [facility] AT [address] [phone] furosemide 20 mg tablet magnesium oxide 400 [...] = 4) episode of afib RVR 2023 ([facility]), diabetes, and newly diagnosed liver cirrhosis who [...] Physical Exam (more content not included)... Normal [facility] HEMOGLOBIN AND HEMATOCRIT, B ELMOODon 06-14-2025 Hematocrit (Bld) [Volume fraction] 23.5 % Low 36.0-45.0 [facility] Comment on above: Performed By: #### L [id number] #### [facility] ([facility]) [address] [place] [address] Hemoglobin (Bld) [Mass/Vol] 7.2 g/dL Low 12.0-15.0 [facility] Comment on above: Performed By: #### L [id number] #### [facility] ([facility]) [address] [place] [address] LACTATE DEHYDROGENASEon 05-22 LACTATE DEHYDROGENASE (U/L) IN SER/PLAS BY LAC->PYR RXN 267 U/L Normal 140-271 [facility] Comment on above: Performed By: #### L [id number] #### [facility] ([facility]) [address] [place] [address] NURSNOTEon 06-14-2025 NURSNOTE The following events where [...] Liang CNP responded Nurys, this we be midwife practitioner fellow taking over. Let me see who it is. Normal [facility] POCT GLUCOSE METER UNSOLICIT ED RESULTSon 06-14-2025 Glucose [Mass/Vol] 283 mg/dL High 70-105 [facility] Comment on above: Order Comment: Waive d Testing in the ED is performed under the ED CLIA certificate #[id number]. Result Comment: [email or web address] [email or web address] Performed By: #### L [id number] ####[facility] ([facility])[address] [place] [address] Glucose [Mass/Vol] 400 mg/dL High 70-105 [facility] Comment on above: Order Comment: Waive d Testing in the ED is performed under the ED CLIA certificate #[id number]. Result Comment: bals [email or web address] Performed By: #### L [id number] #### [facility] ([facility]) [address] [place] [address] Glucose [Mass/Vol] 435 mg/dL High 70-105 [facility] Comment on above: Order Comment: Waive d Testing in the ED is performed under the ED CLIA certificate #[id number]. Result Comment: clar com Performed By: #### L [id number] #### [facility] ([facility]) [address] [place] [id number] 30on 06-13-2025 30 The patient is Moderately [...] and behaviors that affect risk of falls Bowlus fall precautions as indicated by assessment Educate [...] and prevent overall improvement and discharge Normal [facility] 30 The patient is Moderately Stable [...] and maintained or improved Outcome: Progressing Normal [facility] 36on 06-13-2025 36 Emeka from [facility] lab called to report a critical lab for patient. Lab was reported to our RN MIA who will contact patient. Normal [facility] ANTI C3 DATon 06-13-2025 ANTI C3 ERICKA Negative Normal [facility] Comment on above: Performed By: #### L [id number] #### [facility] ([facility]) [address] [place] [address] ANTI IGG DATon 06-13-2025 ANTI IGG ERICKA Negative Normal [facility] Comment on above: Performed By: #### L [id number] #### [facility] , ANTIBODY IDENTIFICATIONon ANTIBODY IDENTIFICATION K [facility] Comment on above: Performed By: #### L [id number] #### [facility] , Anesthesiaon 06-13-2025 Anesthesia [id number] Connie Brian 1955 F Date Provider Department [place] 06/13/2025 [facility] Family History Problem Relation Age of Onset No Known Problems Mother Diabetes Father No Known Problems Sister Heart disease Brother Family Status - Relation Status Age at Mother Father Sister Alive Brother Normal [facility] BILIRUBIN, DIRECTon 06-13-20 25 Magnesium [Mass/Vol] 0.1 mg/dL Normal 0-0.2 [facility] Comment on above: Performed By: #### L [id number] #### [facility] ([facility]) [address] [place] [address] BILIRUBIN, TOTALon 5 Bilirubin [Mass/Vol] 0.5 mg/dL Normal 0.3-1.0 [facility] Comment on above: Performed By: #### L [id number] #### [facility] ([facility]) [address] [place] [address] CBCon 06-13-2025 Erythrocyte distribution width (RBC) [Ratio] 16.4 % High 11.5-15.0 [facility] Comment on above: Performed By: #### L [id number] #### [facility] ([facility]) [address] [place] [address] ERYTHROCYTE MEAN CORPUSCULAR HEMOGLOBIN CONCENTRATION (G/DL) BY AUTOMATED 29.6 g/dL Low 32.0-35.0 [facility] Comment on above: Performed By: #### L [id number] #### [facility] ([facility]) [address] [place] [address] Hematocrit (Bld) [Volume fraction] 22.6 % Low 36.0-45.0 [facility] Comment on above: Performed By: #### L [id number] #### [facility] ([facility]) [address] [place] [address] Hemoglobin (Bld) [Mass/Vol] 6.7 g/dL Low 12.0-15.0 [facility] Comment on above: Performed By: #### L [id number] #### [facility] ([facility] [address] [place] [id number] MCH (RBC) [Entitic mass] 22.6 pg Low 27.0-33.0 [facility] Comment on above: Performed By: #### L [id number] #### [facility] ([facility] [address] [place] [id number] MCV (RBC) [Entitic vol] 76.1 fL Low 82.0-98.0 [facility] Comment on above: Performed By: #### L [id number] #### [facility] ([facility] [address] [place] [id number] PLATELETS (10*3/UL) IN BLOOD AUTOMATED COUNT 167 10*3/uL Normal 150-400 [facility] Comment on above: Performed By: #### L [id number] #### [facility] ([facility]) [address] [place] [id number] RBC (Bld) [#/Vol] 2.97 10*6/uL Low 3.80-5.00 [facility] Comment on above: Performed By: #### L [id number] #### [facility] ([facility]) [address] [place] [id number] WBC (Bld) [#/Vol] 4.65 10*3/uL Normal 4.00-10.60 [facility] Comment on above: Performed By: #### L [id number] #### [facility] ([facility]) [address] [place] [id number] HEMOGLOBINon 06-13-2025 Hemoglobin (Bld) [Mass/Vol] 6.6 g/dL Low 12.0-15.0 [facility] Comment on above: Performed By: #### L [id number] #### [facility] ([facility]) [address] [place] [address] Hemoglobin (Bld) [Mass/Vol] 5.7 g/dL Invalid Interpretation Code 12.0-15.0 [facility] Comment on above: Performed By: #### L [id number] #### [facility] ([facility]) [address] [place] [id number] Hemoglobin (Bld) [Mass/Vol] 7.7 g/dL Low 12.0-15.0 [facility] Comment on above: Order Comment: Edson mc preprocedure Performed By: #### L [id number] ####[facility] ([facility] [place] [address] HIGH SENSITIVITY TROPONIN Io n 06-13-2025 HS TROPONIN I (NG/L) 153 ng/L Critically high <15 [facility] Comment on above: Performed By: #### L [id number] #### [facility] ([facility]) [address] [place] [address] HPon 06-13-2025 [facility] Electrophysiology Consult Note [facility] Clinic Reason for visit: Afib 06/13/25 Pt [...] 02/26/25 Patient here for follow up from [facility]. Patient had fluid taken off and aslo had blood transfusions. Patient states she had an at [facility]. EGD showed 3 bleeding ulcers. Patient [...] palpitations. She was recently seen at the [facility] for A-fib RVR as she was admitted for diarrhea and palpitations. She was found to have C. difficile and was treated with antibiotics and converted to sinus rhythm on her own. She states she normally would get palpitations when she drinks caffeine and typically avoids caffeine, the day of her admission she believes she was given caffeinated coffee at [facility] and then began experience palpitations while [...] show any evidence of reversible ischemia. below [id number] at least 4 for age, gender, hypertension, [...] on file (more content not included)... Normal [facility] LACTATE DEHYDROGENASEon 05-22 LACTATE DEHYDROGENASE (U/L) IN SER/PLAS BY LAC->PYR RXN 137 U/L Low 140-271 [facility] Comment on above: Performed By: #### L [id number] ####[facility] ([facility])[address] [place] [address] NURSNOTEon 06-13-2025 ELHAM RN received verbal sign out from Dr. Alix Shah [facility] ELHAM RN notified Dr. Seng shultz of patient's repeat hemoglobin drawn in pacu resulted at 6.7 No orders received at this time. Normal [facility] ADELENOTRandolph Pt. weighed, used CH G, and changed into gown. Dr. Thomson aware of 316 BG-5 units Humalog ordered. Obtaining PIV access and labs. ECG to be completed as of yet as well. Normal [facility] POCT GLUCOSE METER UNSOLICIT ED RESULTSon 06-13-2025 Glucose [Mass/Vol] 263 mg/dL High 70-105 [facility] Comment on above: Order Comment: Waive d Testing in the ED is performed under the ED CLIA certificate #[id number]. Result Comment: [email or web address] Performed By: #### L [id number] #### [facility] ([employer]) [address] [place] [address] Glucose [Mass/Vol] 175 mg/dL High 70-105 [facility] Comment on above: Order Comment: Waive d Testing in the ED is performed under the ED CLIA certificate #[id number]. Result Comment: kbar to Performed By: #### L [id number] #### [facility] ([employer]) [address] [place] [address] Glucose [Mass/Vol] 316 mg/dL High 70-105 [facility] Comment on above: Order Comment: Waive d Testing in the ED is performed under the ED CLIA certificate #[id number]. Result Comment: [email or web address] Performed By: #### L [id number] ####[facility] ([facility])[address] [place] [address] PROTIME-INRon 06-13-2025 INR IN PPP BY COAGULATION ASSAY 1.20 High 0.90-1.10 [facility] Comment on above: Result Comment: ACCC [...] 1995;[id number]. Performed By: #### L [id number] #### [facility] ([facility]ER) [address] [place] [address] PROTHROMBIN TIME (PT) IN PPP BY COAGULATION ASSAY 15.2 Seconds High 12.3-14.8 [facility] Comment on above: Performed By: #### L [id number] #### [facility] ([facility]) [address] [place] [address] TYPE AND SCREENon 06-13-2025 AB SCREEN Positive Normal [facility] Comment on above: Performed By: #### L [id number] #### [facility] , ABO group Nom (Bld) O Normal [facility] Comment on above: Performed By: #### L [id number] #### [facility] , RH TYPE IN BLOOD Positive Normal [facility] Comment on above: Performed By: #### L [id number] #### [facility] , Orders Onlyon 06-11-2025 Orders Only [id number] Connie Brian 1955 F Date Provider Department Center 06/11/2025 2004-STEFANO MENENDEZ [facility] PAC OR Medical C Family History Problem Relation Age of Onset No Known Problems Mother Diabetes Father No Known Problems Sister Heart disease Brother Family Status - Relation Status Age at Mother Father Sister Alive Brother Normal [facility] Prep for Procedureon 025 Prep for Procedure [id number] Connie Brian 1955 F Date Provider Department Center 06/06/20251986-[facility] OR Heart[facility]AS Family History Problem Relation Age of Onset No Known Problems Mother Diabetes Father No Known Problems Sister Heart disease Brother Family Status - Relation Status Age at Mother Father Sister Alive Brother Normal [facility] Procedure Visiton 05-28-2025 Procedure Visit [id number] Connie Brian 1955 Provider Department Center 05/28/2025 JESSICA EVANS [facility] Pavi Family History Problem Relation Age of Onset No Known Problems Mother Diabetes Father No Known Problems Sister Heart disease Brother Family Status - Relation Status Age at Mother Father Sister Alive Brother Level of Service:24254 [place] OFFICE/OUTPT VISIT,PROCEDURE ONLY Normal [facility] Prep for Procedureon 025 Prep for Procedure [id number] Connie Brian 1955 Provider Department Center 04/30/2025 [facility] Family History Problem Relation Age of Onset No Known Problems Mother Diabetes Father No Known Problems Sister Heart disease Brother Family Status - Relation Status Age at Mother Father Sister Alive Brother Normal [facility] BEDSIDE GLUCOSEon 04-25-2025 Glucose [Mass/Vol] 213 mg/dL High 65-99 [facility] Comment on above: Performed By: #### C , 2156-6, FEPR, 2324-2, TSHR, PINR, 2276-4, 6771-0, 2064-4, 2465-3, 1834-1, 49918-2, 5130-0, AHP #### [facility] ([id number]) [address] [place] [address] Glucose [Mass/Vol] 231 mg/dL High 65-99 [facility] Comment on above: Performed By: #### C MP, 6, FEPR, 2324-2, TSHR, PINR, 2276-4, 6771-0, 2064-4, 2465-3, 1834-1, 27571-2, 5130-0, AHP #### [facility] ([id number]) [address] [place] [address] Office Visiton 04-23-2025 Follow-up visit [id number] Connie Brian A 1955 F Date Provider Department Center 04/23/2025 ROGERS BERNAL DAISY [facility]ak[facility] Family History Problem Relation Age of Onset No Known Problems Mother Diabetes Father No Known Problems Sister Heart disease Brother Family Status - Relation Status Age at Mother Father Sister Alive Brother Level of Service:25599 [place] OFFICE/OUTPATIENT ESTABLISHED LOW MDM 20 MIN Normal [facility] Orders Onlyon 04-22-2025 Orders Only [id number] Connie Brian A 1955 F Date Provider Department Center 04/22/2025 [id number], [facility] DAISY [facility] Family History Problem Relation Age of Onset No Known Problems Mother Diabetes Father No Known Problems Sister Heart disease Brother Family Status - Relation Status Age at Mother Father Sister Alive Brother [facility] 36on 04-19-2025 36 Scheduled EGD w/ Push/Cirrhosis/AVM's 04/25/25 @08, [facility], Dr. Zazueta, [facility] ph: 04/24/25 pm, #[id number]. Clinic appt 04/10/25 w/ Patricia and EGD 01/29/25 @ OR w/ Marbin. Called to schedule EGD/Hepatic Cirrhosis. Scheduled 04/24/25 for Cardiac Ablation. We will follow up afterwards re: clearance/blood thinner hold. Normal [facility] Telephoneon 04-19-2025 Telephone [id number] Connie Brian A 1955 F Date Provider Department Center 04/19/2025 [id number]-ZGWLICAROLE [place]ING[place] [facility] Family History Problem Relation Age of Onset No Known Problems Mother Diabetes Father No Known Problems Sister Heart disease Brother Family Status - Relation Status Age at Mother Father Sister Alive Brother Normal [facility] Orders Onlyon 04-18-2025 Orders Only [id number] Connie Brian A 1955 F Date Provider Department Center 04/18/2025 28543-NJLPYNAVARRO [facility] PREOP OR Medical C Family History Problem Relation Age of Onset No Known Problems Mother Diabetes Father No Known Problems Sister Heart disease Brother Family Status - Relation Status Age at Mother Father Sister Alive Brother [facility] 37on 04-10-2025 37 Please get blood wor k Schedule EGD I added a new pill called Aldactone to help with ascites. Follow up in 6 months [facility] COMPREHENSIVE METABOLIC PANE Josh 04-10-2025 Albumin [Mass/Vol] 3.6 g/dL Normal 3.2-5.3 [facility] Comment on above: Performed By: #### C MP, 2156-6, FEPR, 2324-2, TSHR, PINR, 2276-4, 6771-0, 2064-4, 2465-3, 1834-1, 42239-4, 5130-0, AHP #### [facility] ([id number]) [address], [address] [place] [address] ALP [Catalytic activity/Vol] 98 U/L Normal 39-130 [facility] Comment on above: Performed By: #### C MP, 2157-04, FEPR, 2324-2, TSHR, PINR, 2276-4, 6771-0, 2064-4, 2465-3, 1834-1, 86485-9, 5130-0, AHP #### [facility] ([id number]) [address], [address] [place] [address] ALT [Catalytic activity/Vol] 13 U/L Normal <=31 [facility] Comment on above: Performed By: #### C MP, 2157-04, FEPR, 2324-2, TSHR, PINR, 2276-4, 6771-0, 2064-4, 2465-3, 1834-1, 35273-2, 5130-0, AHP #### [facility] ([id number]) [address], [address] [place] [address] Anion gap [Moles/Vol] 11 mmol/L Normal 5-15 [facility] Comment on above: Performed By: #### C MP, 2157-6, FEPR, 2324-2, TSHR, PINR, 2276-4, 6771-0, 2064-4, 2465-3, 1834-1, 06876-3, 5130-0, AHP #### [facility] ([id number]) [address], [address] [place] [address] AST [Catalytic activity/Vol] 21 U/L Normal <=41 [facility] Comment on above: Performed By: #### C MP, 2157-6, FEPR, 2324-2, TSHR, PINR, 2276-4, 6771-0, 4-4, 2465-3, 1834-1, 95796-6, 5130-0, AHP #### [facility] ([id number]) [address], [address] [place] [address] Bilirubin [Mass/Vol] 1.4 mg/dL High 0.3-1.2 [facility] Comment on above: Performed By: #### C MP, 7-6, FEPR, 2324-2, TSHR, PINR, 2276-4, 6771-0, 4-4, 2465-3, 1834-1, 60367-6, 5130-0, AHP #### [facility] ([id number]) [address], [address] [place] [address] Calcium [Mass/Vol] 9.5 mg/dL Normal 8.5-10.5 [facility] Comment on above: Performed By: #### C MP, 2157-6, FEPR, 2324-2, TSHR, PINR, 2276-4, 6771-0, 4-4, 2465-3, 1834-1, 42760-1, 5130-0, AHP #### [facility] ([id number]) [address], [address] [place] [address] Chloride [Moles/Vol] 109 mmol/L Normal 98-109 [facility] Comment on above: Performed By: #### C MP, 2156-6, FEPR, 2324-2, TSHR, PINR, 2276-4, 6771-0, 2064-4, 2465-3, 1834-1, 27456-5, 5130-0, AHP #### [facility] ([id number]) [address], [address] [place] [address] CO2 [Moles/Vol] 23 mmol/L Normal 22-32 [facility] Comment on above: Performed By: #### C MP, 2156-6, FEPR, 2324-2, TSHR, PINR, 2276-4, 6771-0, 2064-4, 2465-3, 1834-1, 11968-2, 5130-0, P #### [facility] ([id number]) [address], [address] [place] [address] Creatinine [Mass/Vol] 0.69 mg/dL Normal 0.40-1.00 [facility] Comment on above: Result Comment: METH OD TRACEABLE TO IDMS STANDARD Performed By: #### C MP, 2156-6, FEPR, 2324-2, TSHR, PINR, 2276-4, 6771-0, 2064-4, 2465-3, 1834-1, 87390-1, 5130-0, P #### [facility] ([id number]) [address], [address] [place] [address] EGFR (CKD-EPI) NON-RACE DEPENDENT >^90 Normal >=60 [facility] Comment on above: Result Comment: Repo rted eGFR is based on the CKD-EPI 2020 equation that does not use a race coefficient. Performed By: #### C MP, 2156-6, FEPR, 2324-2, TSHR, PINR, 2276-4, 6771-0, 2064-4, 2465-3, 1834-1, 80823-2, 5130-0, AHP #### [facility] ([id number]) [address], [address] [place] [address] Glucose [Mass/Vol] 227 mg/dL High 65-99 [facility] Comment on above: Performed By: #### C MP, 2156-6, FEPR, 2324-2, TSHR, PINR, 2276-4, 6771-0, 2064-4, 2465-3, 1834-1, 64489-7, 5130-0, AHP #### [facility] ([id number]) [address], [address] [place] [address] Potassium [Moles/Vol] 4.7 mmol/L Normal 3.5-5.0 [facility] Comment on above: Performed By: #### C MP, 6, FEPR, 2324-2, TSHR, PINR, 2276-4, 6771-0, 4-4, 2465-3, 1834-1, 78607-0, 5130-0, AHP #### [facility] ([id number]) [address], [address] [place] [address] Protein [Mass/Vol] 7.0 g/dL Normal 6.0-8.0 [facility] Comment on above: Performed By: #### C MP, 6, FEPR, 2324-2, TSHR, PINR, 2276-4, 6771-0, 4-4, 2465-3, 1834-1, 11868-0, 5130-0, AHP #### [facility] ([id number]) [address], [address] [place] [address] Sodium [Moles/Vol] 143 mmol/L Normal 134-146 [facility] Comment on above: Performed By: #### C MP, 2156-6, FEPR, 2324-2, TSHR, PINR, 2276-4, 6771-0, 2064-4, 2465-3, 1834-1, 07839-8, 5130-0, AHP #### [facility] ([id number]) [address] [place] [address] Urea nitrogen [Mass/Vol] 21 mg/dL Normal 5-27 [facility] Comment on above: Performed By: #### C MP, 2156-6, FEPR, 2324-2, TSHR, PINR, 6-4, 6771-0, 4-4, 2465-3, 1834-1, 24945-8, 5130-0, P #### [facility] ([id number]) [address] [place] [address] Follow-Upon 04-10-2025 Follow-Up [id number] RocTalhaConnie A 1955 F Date Provider Department Center 04/10/2025 DAMIAN CORDOBA [facility] HERNANDEZ [facility] Family History Problem Relation Age of Onset No Known Problems Mother Diabetes Father No Known Problems Sister Heart disease Brother Family Status - Relation Status Age at Mother Father Sister Alive Brother Level of Service:[address]364 [place] OFFICE/OUTPATIENT ESTABLISHED MOD MDM 30 MIN () Reason for Visit and Comments: Follow-up [281117] Normal [facility] PROTIME AND INRon 04-10-2025 INR 1.5 High 0.9-1.2 [facility] Comment on above: Performed By: #### C MP, 2156-6, FEPR, 2324-2, TSHR, PINR, 6-4, 6771-0, 2063-4, 2465-3, 1834-1, 05381-4, 5130-0, P #### [facility] ([id number]) [address] [place] [address] PT Coag (PPP) [Time] 17.4 s High 9.8-13.2 [facility] Comment on above: Performed By: #### C MP, 2156-6, FEPR, 2324-2, TSHR, PINR, 2276-4, 6771-0, 2063-4, 2465-3, 1834-1, 69680-1, 5130-0, [facility] #### [facility] ([id number]) [address] [place] [address] Prep for Procedureon 025 Prep for Procedure [id number] Connie Brian Hannah 1955 F Date Provider Department Center 03/22/2025 Juan-IZABELA [facility] OR HeartVAS Family History Problem Relation Age of Onset No Known Problems Mother Diabetes Father No Known Problems Sister Heart disease Brother Family Status - Relation Status Age at Mother Father Sister Alive Brother Normal [facility] Urine Cultureon 03-05-2025 Bacteria identified Cx Nom (U) ORGANISM: Escherichia coli (O:ESCCOL) [place] Count >100,000 Aerobic KAL Charge (NMIC56) --- [...] RESISTANT TO ALL B-LACTAM DRUGS. PERFORMED BY: [facility] [address] [facility] [place] [address] PATHOLOGIST ASSISTANT MEDIA BUYER HARRIET CHOWDHURY M.D. Normal [facility] Comment on above: Performed By: #### C UU #### [facility] [address] [place] [address] [facility] Office Visiton 02-26-2025 Follow-up visit [id number] Connie Brian 1955 F Date Provider Department Center 02/26/2025 ROGERS BERNAL DAISY [facility] Family History Problem Relation Age of Onset No Known Problems Mother Diabetes Father No Known Problems Sister Heart disease Brother Family Status - Relation Status Age at Mother Father Sister Alive Brother Level of Service:07918 [place] OFFICE/OUTPATIENT ESTABLISHED MOD MDM 30 MIN Normal [facility] HPon 01-29-2025 HP H&P reviewed. The patient was examined and there are no changes to the H&P. Upper GI bleeding with melena and anemia with history of steatohepatitis. The patient is scheduled to have an upper endoscopy to rule out upper GI bleeding. Normal [facility] NURSNOTEon 01-29-2025 ELHAM RN reviewed discharg e instructions with patient and friend at bedside. No questions or concerns expressed at this time. Normal [facility] NURSNOTE Grounding patch removed skin dry and intact. Normal [facility] NURSNOTE Grounding patch applied to pt right posterior thigh skin dry and intact Normal [facility] POCT GLUCOSE METER UNSOLICIT ED RESULTSon 01-29-2025 Glucose [Mass/Vol] 248 mg/dL High 70-105 [facility] Comment on above: Order Comment: Waive d Testing in the ED is performed under the ED CLIA certificate #[id number]. Result Comment: ltol les Performed By: #### L [id number] #### [facility] ([facility] [address] [place] [address] Glucose [Mass/Vol] 276 mg/dL High 70-105 [facility] sit [facility] Comment on above: Order Comment: Waive d Testing in the ED is performed under the ED CLIA certificate #[id number]. Result Comment: ngro radha Performed By: #### L [id number] ####[facility] ([facility])[address] [place] [address] ACUTE HEPATITIS PANELon ANTI HCV W/PCR REFLX Non-Reactive Normal NRCT [facility] Comment on above: Result Comment: NEW TEST METHOD NOTE If recent infection suspected, recommend repeat testing (>2 months). Uewhog-dk-zxpjyk ratio is <1.00. Performed By: #### C MP, 2156-, FEPR, 2324-2, TSHR, PINR, 2276-4, 6771-0, 2064-4, 2465-3, 1834-1, 31293-5, 5130-0, AHP #### [facility] ([id number]) [address] [place] [address] HEPATITIS A IGM Non-Reactive Normal NRCT [facility] Comment on above: Result Comment: NEW TEST METHOD Performed By: #### C MP, 6, FEPR, 2324-2, TSHR, PINR, 2276-4, 6771-0, 2064-4, 2465-3, 1834-1, 15187-5, 5130-0, AHP #### [facility] ([id number]) [address] [place] [address] HEPATITIS B CORE IGM Non-Reactive Normal NRCT Pr [facility] Comment on above: Result Comment: NEW TEST METHOD Performed By: #### C MP, 6, FEPR, 2324-2, TSHR, PINR, 2276-4, 6771-0, 2064-4, 2465-3, 1834-1, 79730-3, 5130-0, AHP #### [facility] ([id number]) [address] [address] HEPATITIS B SURF AG Non-Reactive Normal NRCT Pro [facility] Comment on above: Result Comment: NEW TEST METHOD Performed By: #### C MP, 2156-6, FEPR, 2324-2, TSHR, PINR, 2276-4, 6771-0, 2064-4, 2465-3, 1834-1, 00579-5, 5130-0, AHP #### [facility] ([id number]) [address], [address] [address] AFP [Mass/Vol]on 01-23-2025 ALPHA FETOPROTEIN 2.6 ng/mL Normal 0-9.9 [facility] Comment on above: Performed By: #### C MP, 6, FEPR, 2324-2, TSHR, PINR, 2276-4, 6771-0, 2064-4, 2465-3, 1834-1, 38042-9, 5130-0, AHP #### [facility] ([id number]) [address] [address] Aldolase [Catalytic activity /Vol]on 01-23-2025 ALDOLASE 5.4 U/L Normal 1.2-7.6 [facility] Comment on above: Result Comment: NOTE REFERENCE INTERVAL: Aldolase Access complete set of age- and/or gender-specific reference intervals for this test in the [employer] [facility] Laboratory Test Directory (Aviir). Performed By: [employer] [address] [place] [address] Powerhouse Tender: Bart Infante MD, PhD CLIA Number: [id number] Performed By: #### C MP, 2156-6, FEPR, 2324-2, TSHR, PINR, 2276-4, 6771-0, 2064-4, 2465-3, 1834-1, 31183-0, 5130-0, AHP #### [facility] ([id number]) [address] [facility] [facility], [address] [address] Alpha 1 antitrypsin Nephelom etry [Mass/Vol]on 01-23-2025 ALPHA 1 ANTITRYPSIN 185 mg/dL Normal 83-199 [facility] Comment on above: Performed By: #### C MP, 7-6, FEPR, 2324-2, TSHR, PINR, 2276-4, 6771-0, 2064-4, 2465-3, 1834-1, 93576-9, 5130-0, AHP #### [facility] ([id number]) [address], [address] [place] [address] CK [Catalytic activity/Vol]o n 01-23-2025 CPK 27 U/L Normal 24-170 [facility] Comment on above: Performed By: #### C MP, 2156-6, FEPR, 2324-2, TSHR, PINR, 2276-4, 6771-0, 4-4, 2465-3, 1834-1, 80923-9, 5130-0, P #### [facility] ([id number]) [address], [address] [place] [address] COMPREHENSIVE METABOLIC PANE Josh 01-23-2025 Albumin [Mass/Vol] 3.5 g/dL Normal 3.2-5.3 [facility] Comment on above: Performed By: #### C MP, 2156-6, FEPR, 2324-2, TSHR, PINR, 2276-4, 6771-0, 2064-4, 2465-3, 1834-1, 59555-9, 5130-0, AHP #### [facility] ([id number]) [address], [address] [place] [address] ALP [Catalytic activity/Vol] 108 U/L Normal 39-130 [facility] Comment on above: Performed By: #### C MP, 2157-6, FEPR, 2324-2, TSHR, PINR, 2276-4, 6771-0, 2064-4, 2465-3, 1834-1, 04005-1, 5130-0, AHP #### [facility] ([id number]) [address], [address] [place] [address] ALT [Catalytic activity/Vol] 13 U/L Normal 0-31 [facility] Comment on above: Performed By: #### C MP, 2156-6, FEPR, 2324-2, TSHR, PINR, 2276-4, 6771-0, 4-4, 2465-3, 1834-1, 61726-4, 5130-0, AHP #### [facility] ([id number]) [address] [place] [address] Anion gap [Moles/Vol] 14 mmol/L Normal 5-15 [facility] Comment on above: Performed By: #### C MP, 6, FEPR, 2324-2, TSHR, PINR, 6-4, 6771-0, 4-4, 2465-3, 1834-1, 58513-5, 5130-0, P #### [facility] ([id number]) [address] [place] [address] AST [Catalytic activity/Vol] 25 U/L Normal 0-41 [facility] Comment on above: Performed By: #### C MP, 2156-6, FEPR, 2324-2, TSHR, PINR, 2276-4, 6771-0, 2063-4, 2465-3, 1834-1, 30946-2, 5130-0, AHP #### [facility] ([id number]) [address] [place] [address] Bilirubin [Mass/Vol] 1.1 mg/dL Normal 0.3-1.2 [facility] Comment on above: Performed By: #### C MP, 2156-6, FEPR, 2324-2, TSHR, PINR, 2276-4, 6771-0, 4-4, 2465-3, 1834-1, 01199-6, 5130-0, AHP #### [facility] ([id number]) [address], [address] [place] [address] Calcium [Mass/Vol] 9.0 mg/dL Normal 8.5-10.5 [facility] Comment on above: Performed By: #### C MP, 2157-04, FEPR, 2324-2, TSHR, PINR, 2276-4, 6771-0, 4-4, 2465-3, 1834-1, 87789-5, 5130-0, AHP #### [facility] ([id number]) [address] [place] [address] Chloride [Moles/Vol] 104 mmol/L Normal 98-109 [facility] Comment on above: Performed By: #### C MP, 2157-04, FEPR, 2324-2, TSHR, PINR, 2276-4, 6771-0, 4-4, 2465-3, 1834-1, 43506-9, 5130-0, AHP #### [facility] ([id number]) [address], [address] [place] [address] CO2 [Moles/Vol] 25 mmol/L Normal 22-32 [facility] Comment on above: Performed By: #### C MP, 2157-04, FEPR, 2324-2, TSHR, PINR, 2276-4, 6771-0, 4-4, 2465-3, 1834-1, 15487-6, 5130-0, AHP #### [facility] ([id number]) [address], [address] [place] [address] Creatinine [Mass/Vol] 0.79 mg/dL Normal 0.40-1.00 [facility] Comment on above: Result Comment: METH OD TRACEABLE TO IDMS STANDARD Performed By: #### C MP, 2157-04, FEPR, 2324-2, TSHR, PINR, 2276-4, 6771-0, 2064-4, 2465-3, 1834-1, 25616-3, 5130-0, P #### [facility] ([id number]) [address], [address] [place] [address] GFR/1.73 sq M.predicted among non-blacks MDRD (S/P/Bld) [Vol rate/Area] 81 mL/min/{1.73_m2} Normal >59 [facility] Comment on above: Result Comment: Reported eGFR is based on the CKD-EPI 2020 equation that does not use a race coefficient. Performed By: #### C MP, 2157-04, FEPR, 2324-2, TSHR, PINR, 2276-4, 6771-0, 2064-4, 2465-3, 1834-1, 83687-2, 5130-0, P #### [facility] ([id number]) [address], [address] [place] [address] Glucose [Mass/Vol] 269 mg/dL High 65-99 [facility] Comment on above: Performed By: #### C MP, 2157-04, FEPR, 2324-2, TSHR, PINR, 2276-4, 6771-0, 2064-4, 2465-3, 1834-1, 78206-0, 5130-0, P #### [facility] ([id number]) [address], [address] [place] [address] Potassium [Moles/Vol] 3.8 mmol/L Normal 3.5-5.0 [facility] Comment on above: Performed By: #### C MP, 2156-, FEPR, 2324-2, TSHR, PINR, 2276-4, 6771-0, 2064-4, 2465-3, 1834-1, 23151-9, 5130-0, P #### [facility] ([id number]) [address] [facility] [place] [address] Protein [Mass/Vol] 7.4 g/dL Normal 6.0-8.0 [facility] Comment on above: Performed By: #### C MP, 2156-6, FEPR, 2324-2, TSHR, PINR, 2276-4, 6771-0, 2064-4, 2465-3, 1834-1, 59044-3, 5130-0, P #### [facility] ([id number]) [address] [facility] [address] [place] [address] Sodium [Moles/Vol] 143 mmol/L Normal 134-146 [facility] Comment on above: Performed By: #### C MP, 6, FEPR, 2324-2, TSHR, PINR, 2276-4, 6771-0, 2064-4, 2465-3, 1834-1, 30630-2, 5130-0, P #### [facility] ([id number]) [address] [address] [place] [address] Urea nitrogen [Mass/Vol] 24 mg/dL Normal 5-27 [facility] Comment on above: Performed By: #### C MP, 6, FEPR, 2324-2, TSHR, PINR, 2276-4, 6771-0, 2064-4, 2465-3, 1834-1, 81039-1, 5130-0, P #### [facility] ([id number]) [address] [facility] [facility] [address] [place] [address] Ceruloplasmin [Mass/Vol]on 0 01-23-2025 CERULOPLASMIN 33 mg/dL Normal 18-58 [facility] Comment on above: Performed By: #### C MP, 2156-6, FEPR, 2324-2, TSHR, PINR, 2276-4, 6771-0, 2064-4, 2465-3, 1834-1, 95412-5, 5130-0, AHP #### [facility] ([id number]) [address], [address] [place] [address] DNA double strand Ab Qn (S)o n 01-23-2025 DOUBLE STRANDED DNA <1 Normal <5 [facility] Comment on above: Result Comment: Interpretation-------- <5 Negative 5-9 Indeterminate >9 Positive Performed By: #### C MP, 2156-6, FEPR, 2324-2, TSHR, PINR, 2276-4, 6771-0, 2064-4, 2465-3, 1834-1, 98069-9, 5130-0, AHP #### [facility] ([id number]) [address], [address] [place] [address] FERRITINon 01-23-2025 Ferritin [Mass/Vol] 5 ng/mL Low 11-307 [facility] Comment on above: Performed By: #### C MP, 2156-6, FEPR, 2324-2, TSHR, PINR, 2276-4, 6771-0, 2064-4, 2465-3, 1834-1, 64254-3, 5130-0, AHP #### [facility] ([id number]) [address] [place] [address] GGTon 01-23-2025 Gamma glutamyl transferase [Catalytic activity/Vol] 86 U/L High 7-33 [facility] Comment on above: Performed By: #### C MP, 2156-6, FEPR, 2324-2, TSHR, PINR, 2276-4, 6771-0, 2064-4, 2465-3, 1834-1, 66385-9, 5130-0, AHP #### [facility] ([id number]) [address] [place] [address] on 01-23-2025 HP -- Attestation signed by Damian Gomez MD at 01/23/2025 3:48 PM Seen and discussed with fellow, agree with assessment and plan. [facility] Gastroenterology New Patient Visit - History & Physical CHIEF COMPLAINT Chief Complaint Patient presents with New Patient EGD scheduled, was at [facility] and sent for an EGD but also [...] : EGD and Colonoscopy was done in [facility] 11/06/2025 HISTORY: Problem list: Patient [...] Outpatient Medic (more content not included)... Normal [facility] IGGon 01-23-2025 IgG [Mass/Vol] 1498 mg/dL Normal 635-1741 [facility] Comment on above: Performed By: #### C MP, 2156-6, FEPR, 2324-2, TSHR, PINR, 2276-4, 6771-0, 2064-4, 2465-3, 1834-1, 24474-8, 5130-0, AHP #### [facility] ([id number]) [address] [place] [address] IRON PROFILEon 01-23-2025 Iron [Mass/Vol] 20 ug/dL Low 50-170 [facility] Comment on above: Performed By: #### C MP, 6, FEPR, 2324-2, TSHR, PINR, 2276-4, 6771-0, 2064-4, 2465-3, 1834-1, 66107-0, 5130-0, AHP #### [facility] ([id number]) [address] [place] [address] IRON BINDING 504 ug/dL High 250-425 [facility] Comment on above: Performed By: #### C MP, 6, FEPR, 2324-2, TSHR, PINR, 2276-4, 6771-0, 2064-4, 2465-3, 1834-1, 03525-1, 5130-0, AHP #### [facility] ([id number]) [address] [place] [address] IRON SATURATION 4 % SATURATION Low 15-50 [facility] Comment on above: Performed By: #### C MP, 6, FEPR, 2324-2, TSHR, PINR, 2276-4, 6771-0, 2064-4, 2465-3, 1834-1, 85275-4, 5130-0, AHP #### [facility] ([id number]) [address], [address] [place] [address] Mitochondria M2 Ab IA Qn (S) on 01-23-2025 Mitochondrial Ab (M2) <0.1 Normal <0.1 (Negative) [facility] Comment on above: Result Comment: NOTE Test Performed by: [facility] [address] [place] [address] Supervisor Bonding: Neyda Gutierrez Ph.D.; CLIA# [id number] Performed By: #### C MP, 7-6, FEPR, 2324-2, TSHR, PINR, 2276-4, 6771-0, 2064-4, 2465-3, 1834-1, 39408-8, 5130-0, P #### [facility] ([id number]) [address], [address] [place] [address] Nuclear Ab IA Ql (S)on 01-23 [place] Screen w/reflex Negative Normal NEG [facility] Comment on above: Result Comment: Testing performed using multiplex flow immunoassay. Eleven different antigens associated with systemic autoimmune diseases (dsDNA,Sm,Sm/AIR BRAKE TESTER,AIR BRAKE TESTER,Chromatin, SSA,SSB,Daniela-1,Scl70,Ribo P,Centromere B) are included in this screening test. Performed By: #### C MP, 2157-6, FEPR, 2324-2, TSHR, PINR, 2276-4, 6771-0, 2064-4, 2465-3, 1834-1, 93854-8, 5130-0, P #### [facility] ([id number]) [address], [address] [place] [address] Office Visiton 01-23-2025 Follow-up visit [id number] Connie Brian 1955 F Date Provider Department Center 01/23/2025 DAMIAN CORDOBA [facility] Family History Problem Relation Age of Onset No Known Problems Mother Diabetes Father No Known Problems Sister No Known Problems Brother Family Status - Relation Status Age at Mother Father Sister Brother Level of Service:[address] [place] OFFICE/OUTPATIENT NEW MODERATE MDM 45 MINUTES (GC) Reason for Visit and Comments: New Patient [632] - EGD scheduled, was at [facility] and sent for an EGD but also Cirrhosis work up. She was never told she has Cirrhisis but overheard a Doctor say it to another Doctor. Normal [facility] PROTIME AND INRon 01-23-2025 INR Coag (PPP) [Relative time] 1.4 {INR} High 0.9-1.2 [facility] Comment on above: Performed By: #### C MP, 2157-04, FEPR, 2324-2, TSHR, PINR, 2276-4, 6771-0, 2064-4, 2465-3, 1834-1, 61222-4, 5130-0, AHP #### [facility] ([id number]) [address], [address] [place] [address] PT Coag (PPP) [Time] 16.4 s High 9.8-13.2 [facility] Comment on above: Performed By: #### C MP, 2157-04, FEPR, 2324-2, TSHR, PINR, 2276-4, 6771-0, 2064-4, 2465-3, 1834-1, 26637-0, 5130-0, AHP #### [facility] ([id number]) [address] [facility] [address] [place] [address] TSH WITH REFLEXon 01-23-2025 TSH 3.87 uIU/mL Normal 0.49-4.67 [facility] Comment on above: Performed By: #### C MP, 6, FEPR, 2324-2, TSHR, PINR, 2276-4, 6771-0, 2064-4, 2465-3, 1834-1, 14702-7, 5130-0, AHP #### [facility] ([id number]) [address] [facility], [address] [place] [address] 36on 01-22-2025 36 Spoke with patients roommate, Katherine, that I have the okay for Connie to hold her Eliquis for 48 hours prior to her EGD on 01/29/25, verbalizes understanding. Normal [facility] Telephoneon 01-22-2025 Telephone [id number] Connie Brian 1955 [facility] Provider Department Center 01/22/2025 ISAURO AUSTIN [facility] GE[facility] Family History Problem Relation Age of Onset No Known Problems Mother Diabetes Father No Known Problems Sister No Known Problems Brother Family Status - Relation Status Age at Mother Father Sister Brother [facility] Prep for Procedureon 025 Prep for Procedure [id number] Connie Brian 1955 [facility] Provider Department Center 01/21/2025 JESUS NAVA [facility] MACRINA Family History Problem Relation Age of Onset No Known Problems Mother Diabetes Father No Known Problems Sister No Known Problems Brother Family Status - Relation Status Age at Mother Father Sister Brother [facility] 36on 01-11-2025 36 Message left for patient to call and schedule an EGD. She will also need an office visit with Dr. Gomez for Hepatology/Cirrhosis. [facility] Office Visiton 12-18-2024 Follow-up visit [id number] Connie Brian 1955 Date Provider Department Center 12/18/2024 ROGERS BERNAL Family History Problem Relation Age of Onset No Known Problems Mother Diabetes Father No Known Problems Sister No Known Problems Brother Family Status - Relation Status Age at Mother Father Sister Brother Level of Service:03809 [place] OFFICE/OUTPATIENT ESTABLISHED MOD MDM 30 MIN [facility] Reminderson 11-28-2024 Reminders Reminders From: Skye Concepcion LPN To: N - Clinical; Sent: 11/28/2024 09:09:41 EST Show up: 10/08/2029 07:00:00 EST Subject: colonoscopy recall Due Date/Time: 11/07/2029 07:00:00 EST Reminder/Recall Patient due for surveillance colonoscopy 11/07/2029 due to history of tubular adenoma. Normal [facility] Aerobic Cultureon 11-15-2024 Aerobic Culture No Growth 2 Days No Anaerobes Isolated 3 Days Gram Stain Result No Bacteria Seen Rare White Blood Cells PERFORMED BY: [place] [address] PATHOLOGIST ASSISTANT MEDIA BUYER HARRIET CHOWDHURY M.D. Normal [facility] Comment on above: Performed By: #### G S, AERC #### [place] [id number] [facility] Aerobic cultureOrdered By: Raleigh Del Rosario on 11-15-2024 Bacteria identified Aer cx Nom (Unsp spec) Aerobic culture [facility] Anaerobic cultureOrdered By: Lon Del Rosario on 11-15-2024 Bacteria identified Anaer cx Nom (Unsp spec) Anaerobic culture [facility] Gram Stainon 11-15-2024 Microscopic observation Gram stain Nom (Unsp spec) Gram Stain Result No Bacteria Seen Rare White Blood Cells PERFORMED BY: [place] [address] PATHOLOGIST ASSISTANT MEDIA BUYER HARRIET CHOWDHURY M.D. Normal [facility] Comment on above: Performed By: #### G Raleigh, AERC #### [place] [id number] [facility] Gram stain microscopyOrdered By: Lon Del Rosario on 11-15-2024 Microscopic observation Gram stain Nom (Unsp spec) Gram stain microscopy [facility] Blood Cultureon 11-14-2024 Bacteria identified Cx Nom (Bld) Specimen collected on 11/14/24 Gram Stain Gram Positive Cocci ORGANISM: Staphylococcus aureus (O:STAAUR) Organism Comments For KAL Refer to Final Report of Blood Culture Collected Date 11/14/24 PERFORMED BY: [address] [address] PATHOLOGIST ASSISTANT MEDIA BUYER HARRIET CHOWDHURY M.D. Normal [facility] Comment on above: Performed By: #### C UBLD #### [address] Bacteria identified Cx Nom (Bld) Specimen [...] RESISTANT TO ALL B-LACTAM DRUGS. PERFORMED BY: [place] [address] PATHOLOGIST ASSISTANT MEDIA BUYER HARRIET CHOWDHURY M.D. Normal [facility] Comment on above: Performed By: #### C UBLD #### [address] Laboratory - Microbiology an d Antimicrobial susceptibilityOrdered By: Howard Johnston on 11-14-2024 Bacteria identified Cx Nom (Bld) Abnormal [facility] Urine Cultureon 11-14-2024 Bacteria identified Cx Nom (U) ORGANISM: Escherichia coli (O:ESCCOL) [place] Count 50,000 Aerobic KAL Charge (NMIC56) --- [...] RESISTANT TO ALL B-LACTAM DRUGS. PERFORMED BY: [place] [address] PATHOLOGIST ASSISTANT MEDIA BUYER HARRIET CHOWDHURY M.D. Normal [facility] Comment on above: Performed By: #### C UU #### [address] Urine cultureOrdered By: Kevin Johnston on 11-14-2024 Bacteria identified Cx Nom (U) Escherichia coli Abnormal [facility] Office Visiton 11-09-2024 Follow-up visit [id number] Connie Brian 1955 F Date Provider Department Center 11/09/2024 [id number]-KRISOJAYDIN ESPINOZA [facility] Family History Problem Relation Age of Onset No Known Problems Mother Diabetes Father No Known Problems Sister No Known Problems Brother Family Status - Relation Status Age at Mother Father Sister Brother Level of Service:37750 [place] OFFICE/OUTPATIENT ESTABLISHED MOD MDM 30 MIN Reason for Visit and Comments: Atrial Fibrillation [80] - On Eliquis. Hypertension [971294] Congestive Heart Failure [127] - Denies chest pain, SOB, and LE edema. Valve Disorder [3372] Epistaxis (Nose Bleed) [070072] - Having epistaxis in the mornings, recently had 1 straight week of them. Palpitations [919376] - She presented to [facility] ED last weekend for palpitations. Patient states she was advised to increase metoprolol to 75mg bid x3 days, and then return to baseline dose of 50mg bid. Normal [facility] Pathology Request for Lab Co rpon 11-07-2024 Pathology Request for Lab Niall Normal [facility] Comment on above: Order Comment: PATHO LOGY GI SPECIMEN Result Comment: See report. Scanned copy available in EMR. PERFORMED BY: [place] [address] PATHOLOGIST ASSISTANT MEDIA BUYER HARRIET CHOWDHURY M.D. Performed By: #### P ATH TO [facility] #### [address] Ambulatory Visit Summaryon 1 12-03-2023 Ambulatory [...] choosing us for your care. [facility] Electrophysiology Consult Note [facility] Clinic Reason for visit: Afib 08/06/24 Pt here for LOOP 07/03/24 Pt is doing well and occasionally feels palpitations. HPI: Connie Brian is a 68 y.o. year old with past medical history of Hypertension, diabetes, dyslipidemia, palpitations. She was recently seen at the [facility] for A-fib RVR as she was admitted for diarrhea and palpitations. She was found to have C. difficile and was treated with antibiotics and converted to sinus rhythm on her own. She states she normally would get palpitations when she drinks caffeine and typically avoids caffeine, the day of her admission she believes she was given caffeinated coffee at [facility] and then began experience palpitations while [...] show any evidence of reversible ischemia. below [id number] at least 4 for age, gender, hypertension, [...] Arteries: bilateral antoine (more content not included)... [facility] NURSNOTEon 08-06-2024 NURSNOTE RN educated pt on d/ c instructions. RN encouraged pt to voice any questions or concerns. Pt verbalizes no questions or concerns at this time. Pt was wheeled off of unit with all of belongings. [facility] 36on 07-11-2024 36 Regarding echo resul t from 05/29/2024: MD Anne Garsia MA Notify patient that her heart function is normal, valvular heart disease is stable, but she has evidence of pulmonary hypertension. Advise the patient to take the Lasix every day not as needed, check BMP in 1 week, refer her for sleep study [facility] Office Visiton 07-03-2024 Follow-up visit [id number] Connie Brian 1955 F Date Provider Department Center 07/03/[address] [facility] Family History Problem Relation Age of Onset No Known Problems Mother Diabetes Father No Known Problems Sister No Known Problems Brother Family Status - Relation Status Age at Mother Father Sister Brother Level of Service:22498 [place] OFFICE/OUTPATIENT ESTABLISHED LOW MDM 20 MIN [facility] INSULINon 09-25-2022 Insulin 14.1 uIU/mL Normal 2.6-24.9 [facility] Comment on above: Performed By: #### I NSULIN #### [facility] Laboratory [address] [address] [address] Becky Josue CBC AUTO DIFFon 09-24-2022 BASO # 0.0 103/ul Normal 0.0-0.1 [facility] Comment on above: Performed By: #### C BC ####[facility] [address] [place] [address]Dr. Becky Joselo Basophils/100 WBC (Bld) 0.5 % Normal 0.2-2.0 [facility] Comment on above: Performed By: #### C BC ####[facility] M[address] [place], [place] [address]Dr. Becky Josue EO # 0.1 103/ul Normal 0.0-0.7 [facility] Comment on above: Performed By: #### C BC ####[facility] [address] [place], [place] [address]Dr. Kellenkwadwo Josue Eosinophils/100 WBC (Bld) 3.3 % Normal 0.9-7.0 [facility] Comment on above: Performed By: #### C BC ####[facility] [address] [place], [place] [address]Dr. Becky Joselo Erythrocyte distribution width (RBC) [Ratio] 14.3 % Normal 11.0-15.0 [facility] Comment on above: Performed By: #### C BC ####[facility] Kl[address] [place], [place] [address]Dr. Becky Josue Hematocrit (Bld) [Volume fraction] 42.6 % Normal 36.0-48.0 [facility] Comment on above: Performed By: #### C BC ####[facility] X[address] [place], [place] [address]Dr. Becky Josue Hemoglobin (Bld) [Mass/Vol] 13.8 g/dL Normal 12.0-16.0 [facility] Comment on above: Performed By: #### C BC ####[facility] Z[address] [place], [place] [address]Dr. Becky Josue IG # 0.02 10e3/ul Normal 0.00-0.03 [facility] Comment on above: Performed By: #### C BC ####[facility] [address] [place], [place] [address]Dr. Becky Josue IG % 0.5 % Normal 0.0-0.5 [facility] Comment on above: Performed By: #### C BC ####[facility] [address] [place] [address]Dr. Kellenkwadwo Joselo LYMPH # 1.1 103/ul Critically low 1.2-3.8 [facility] Comment on above: Performed By: #### C BC ####[facility] [address] [place] [address]Dr. Becky Josue Lymphocytes/100 WBC (Bld) 28.0 % Normal 20.5-60.0 [facility] Comment on above: Performed By: #### C BC ####[facility] [address] [place] [address]Dr. Becky Josue MANUAL DIFF REQ NO Normal [facility] Comment on above: Performed By: #### C BC ####[facility] [address] [place], [place] [address]Dr. Becky Josue MCH (RBC) [Entitic mass] 29.3 pg Normal 26.7-34.0 [facility] Comment on above: Performed By: #### C BC ####[facility] [address] [place], [place] [address]Dr. Becky Josue MCHC (RBC) [Mass/Vol] 32.4 g/dL Normal 29.9-35.2 [facility] Comment on above: Performed By: #### C BC ####[facility] [address] [place], [place] [address]Dr. Becky Josue MCV (RBC) [Entitic vol] 90.4 fL Normal 81.0-99.0 [facility] Comment on above: Performed By: #### C BC ####[facility] [address] [place], [place] [address]DrBrayan Josue MONO # 0.3 103/ul Normal 0.3-0.8 [facility] Comment on above: Performed By: #### C BC ####[facility] [address] [place] [address]Dr. Becky Josue Monocytes/100 WBC (Bld) 8.3 % Normal 1.7-12.0 [facility] Comment on above: Performed By: #### C BC ####[facility] [address] [place] [address]Dr. Becky Josue NEUT # 2.4 103/ul Normal 1.4-6.5 [facility] Comment on above: Performed By: #### C BC ####[facility] [address] [place] [address]Dr. Becky Josue Neutrophils/100 WBC (Bld) 59.4 % Normal 43.0-75.0 [facility] Comment on above: Performed By: #### C BC ####[facility] [address] [place] [address]Dr. Becky Josue Platelet mean volume (Bld) [Entitic vol] 10.3 fL Normal 9.5-13.5 [facility] Comment on above: Performed By: #### C BC ####[facility] Ct[address] [place], [place] [address]Dr. Becky Josue PLT 149 103/ul Critically low 150-450 [facility] Comment on above: Performed By: #### C BC ####[facility] D[address] [place], [place] [address]Dr. Becky Josue RBC 4.71 106/ul Normal 4.20-5.40 [facility] Comment on above: Performed By: #### C BC ####[facility] Y[address] [place], [place] [address]Dr. Becky Josue WBC 4.0 103/ul Normal 4.0-11.0 [facility] Comment on above: Performed By: #### C BC ####[facility] [address] [place] [id number]. Becky Joselo FREE THYROXINE INDEX T7on FTI 3.36 Normal 1.30-4.50 [facility] Comment on above: Performed By: #### L IPID, CMP, TSH, T7 ####[facility] [address] [place] [address]Dr. Becky Joselo T3U 32.0 % Normal 30.0-39.0 [facility] Comment on above: Performed By: #### L IPID, CMP, TSH, T7 ####[facility] [address] [place] [address]Dr. Becky Josue T4 [Mass/Vol] 10.50 ug/dL Normal 4.80-13.90 [facility] Comment on above: Performed By: #### L IPID, CMP, TSH, T7 ####[facility] [address] [place] [id number]. Becky Josue GLYCOHEMOGLOBIN A1Con 2021 ADA RECOMMENDATION SEE BELOW Normal [facility] Comment on above: Result Comment: ADA RECOMMENDED LIMIT 4.0 - 6.0 ADA THERAPEUTIC TARGET < 7.0 ACTION SUGGESTED > 7.0 Performed By: #### A 1C #### [facility] Laboratory [address] [address] [address] Becky Josue Glucose [Mass/Vol] 237 mg/dL Normal [facility] Comment on above: Performed By: #### A 1C #### [facility] [address] [address] [address] Becky Josue HbA1c (Bld) [Mass fraction] 9.9 % Critically high 4.5-6.2 [facility] Comment on above: Performed By: #### A 1C #### [facility] [address] [address] [address] Becky Josue IRONon 09-24-2022 Iron [Mass/Vol] 55.0 ug/dL Normal 50.0-170.0 [facility] Comment on above: Performed By: #### I ROBERT CLINE #### [facility] [address] [address] [address] Becky Josue LIPID PROFILEon 09-24-2022 CHOL-HDL RATIO NORM SEE BELOW Normal [facility] Comment on above: Result Comment: 3.3 - 4.4 LOW RISK 4.4 - 7.1 AVERAGE RISK 7.1 - 11.0 MODERATE RISK >11.0 HIGH RISK Performed By: #### L IPID, CMP, TSH, T7 ####[facility] [address] [place], [place] [address]Pf. Becky Josue Cholesterol [Mass/Vol] 171 mg/dL Normal <=200 [facility] Comment on above: Performed By: #### L IPID, CMP, TSH, T7 ####[facility] [address] [place], [place] [address]Lf. Becky Josue Cholesterol in HDL [Mass/Vol] 38 mg/dL Critically low 40-60 [facility] Comment on above: Performed By: #### L IPID, CMP, TSH, T7 ####[facility] [address] [place], [place] [address]Mf. Becky Josue Cholesterol in LDL [Mass/Vol] 101.6 mg/dL Normal [facility] Comment on above: Performed By: #### L IPID, CMP, TSH, T7 ####[facility] [address] [place] [id number]. Becky Josue Cholesterol.total/Padmini sterol in HDL [Mass ratio] 4.5 {ratio} Normal [facility] Comment on above: Performed By: #### L IPID, CMP, TSH, T7 ####[facility] [address] [place], [place] [address]Ho. Becky Josue HDL NORMAL > or = 60 mg/dl - LO W CARDIOVASCULAR RISK <40 mg/dl - HIGH CARDIOVASCULAR RISK Normal [facility] Comment on above: Performed By: #### L IPID, CMP, TSH, T7 ####[facility] [address] [place] [id number]. Becky Josue LDL CALC NORMAL SEE BELOW Normal [facility] Comment on above: Result Comment: <100 mg/dl OPTIMAL 100 - 129 mg/dl NEAR OR ABOVE OPTIMAL 130 - 159 mg/dl BORDERLINE HIGH 160 - 189 mg/dl HIGH >190 mg/dl VERY HIGH Performed By: #### L IPID, CMP, TSH, T7 ####[facility] [address] [place], [place] [address]Nu. Becky Josue Triglyceride [Mass/Vol] 157 mg/dL Critically high <=150 [facility] Comment on above: Performed By: #### L IPID, CMP, TSH, T7 ####[facility] [address] [place] [address]Dr. Becky Josue VLDL CALC 31.4 mg/dL Normal [facility] Comment on above: Performed By: #### L IPID, CMP, TSH, T7 ####[facility] [address] [place] [address]Dr. Becky Josue PROF 14(COMP METB)on 022 Albumin [Mass/Vol] 3.4 g/dL Normal 3.4-5.0 [facility] Comment on above: Performed By: #### L IPID, CMP, TSH, T7 ####[facility] [address] [place] [address]Dr. Becky Josue Albumin/Globulin [Mass ratio] 0.9 {ratio} Normal [facility] Comment on above: Performed By: #### L IPID, CMP, TSH, T7 ####[facility] [address] [place] [address]Dr. Becky Josue ALP [Catalytic activity/Vol] 106 U/L Normal 46-116 [facility] Comment on above: Performed By: #### L IPID, CMP, TSH, T7 ####[facility] [address] [place] [address]Dr. Becky Josue ALT [Catalytic activity/Vol] 39 U/L Normal 14-59 [facility] Comment on above: Performed By: #### L IPID, CMP, TSH, T7 ####[facility] [address] [place] [address]Dr. Becky Josue Anion gap [Moles/Vol] 6.9 mmol/L Normal [facility] Comment on above: Performed By: #### L IPID, CMP, TSH, T7 ####[facility] [address] [place] [address]Dr. Becky Josue AST [Catalytic activity/Vol] 44 U/L Critically high 15-37 [facility] Comment on above: Performed By: #### L IPID, CMP, TSH, T7 ####[facility] [address] [place] [address]Dr. Becky Josue Bilirubin [Mass/Vol] 1.1 mg/dL Critically high 0.2-1.0 [facility] Comment on above: Performed By: #### L IPID, CMP, TSH, T7 ####[facility] [address] [place] [id number]. Becky Josue Calcium [Mass/Vol] 9.4 mg/dL Normal 8.5-10.1 [facility] Comment on above: Performed By: #### L IPID, CMP, TSH, T7 ####[facility] [address] [place] [address]Dr. Becky Josue Chloride [Moles/Vol] 103 mmol/L Normal 98-107 [facility] Comment on above: Performed By: #### L IPID, CMP, TSH, T7 ####[facility] [address] [place] [address]Dr. Becky Josue CO2 [Moles/Vol] 31.3 mmol/L Normal 21.0-32.0 [facility] Comment on above: Performed By: #### L IPID, CMP, TSH, T7 ####[facility] [address] [place] [address]Dr. Becky Josue Creatinine [Mass/Vol] 0.72 mg/dL Normal 0.55-1.02 [facility] Comment on above: Performed By: #### L IPID, CMP, TSH, T7 ####[facility] [address] [place] [address]Dr. Kellenkwadwo Joselo EGFR-AF NORTHER[place] IRISH >60 Normal >=60 [facility] Comment on above: Performed By: #### L IPID, CMP, TSH, T7 ####[facility] [address] [place] [id number]. Kellenkwadwo Joselo EGFR-NON AF [place]THER[place] >60 Normal >=60 [facility] Comment on above: Performed By: #### L IPID, CMP, TSH, T7 ####[facility] [address] [place] [id number]. Becky Josue Globulin (S) [Mass/Vol] 4.0 g/dL Normal T [facility] Comment on above: Performed By: #### L IPID, CMP, TSH, T7 ####[facility] [address] [place] [address]Dr. Becky Josue Glucose [Mass/Vol] 315 mg/dL Critically high 74-106 [facility] Comment on above: Performed By: #### L IPID, CMP, TSH, T7 ####[facility] [address] [place] [address]Dr. Becky Josue Potassium [Moles/Vol] 4.2 mmol/L Normal 3.5-5.1 [facility] Comment on above: Performed By: #### L IPID, CMP, TSH, T7 ####[facility] [address] [place] [address]Dr. Becky Josue Protein [Mass/Vol] 7.4 g/dL Normal 6.4-8.2 [facility] Comment on above: Performed By: #### L IPID, CMP, TSH, T7 ####[facility] [address] [place] [address]Dr. Becky Josue Sodium [Moles/Vol] 137 mmol/L Normal 136-145 [facility] Comment on above: Performed By: #### L IPID, CMP, TSH, T7 ####[facility] [address] [place] [address]Dr. Becky Josue Urea nitrogen [Mass/Vol] 14.0 mg/dL Normal 7.0-18.0 [facility] Comment on above: Performed By: #### L IPID, CMP, TSH, T7 ####[facility] [address] [place] [address]Dr. Becky Josue Urea nitrogen/Creatinine [Mass ratio] 19.4 mg/mg Normal [facility] Comment on above: Performed By: #### L IPID, CMP, TSH, T7 ####[facility] [address] [place] [address]Dr. Becky Josue TSHon 09-24-2022 TSH 2.117 uIU/mL Normal 0.358-3.740 [facility] Comment on above: Performed By: #### L IPID, CMP, TSH, T7 ####[facility] [address] [place], [place] [address]Dr. Becky Josue VITAMIN D 25 OHon 09-24-2022 VIT D 25-OH 21.3 ng/mL Normal [facility] Comment on above: Performed By: #### I MARLYN VITAD #### [facility] [address] [place], [place] [address] Dr. Becky Josue VIT D RANGES SEE BELOW Normal [facility] Comment on above: Result Comment: <20 ng/mL Vit D deficient 20 - <30 ng/mL Vit D insufficient 30 - 100 ng/mL Vit D sufficient >100 ng/mL Potential Toxicity Performed By: #### I MARLYN VITAD #### [facility] [address] [place], [place] [address] Dr. Becky Josue COVID Quick Testingon 2020 Result Negative [employer] Other MG MAMM SCREEN 3D SVEN CADon 10-12-2021 MG MAMM SCREEN 3D SVEN CAD Patient: CONNIE BRIAN Exam Date: 10/12/2021 : 1955 Gender:F Ordering : DR MARYJANE VALENCIA . Admission #: [id number] Family : Order #: [id number] CLICK HERE TO VIEW EXAM RADIOLOGY REPORT [...] breast cancer at age 66. LOCATION: [facility] BREAST COMPOSITION: Scattered areas fibroglandular [...] Rosario M.D. on 10/13/2021 at 12:22 Normal [facility] CBC AUTO DIFFon 10-03-2021 BASO # 0.0 103/ul Normal 0.0-0.1 [facility] Comment on above: Performed By: #### C BC #### [facility] [address] [address] [address] Becky Josue Basophils/100 WBC (Bld) 0.4 % Normal 0.2-2.0 [facility] Comment on above: Performed By: #### C BC #### [facility] [address] [place] [address] Dr. Becky Jouse EO # 0.2 103/ul Normal 0.0-0.7 [facility] Comment on above: Performed By: #### C BC #### [facility] [address] [place] [address] Dr. Becky Josue Eosinophils/100 WBC (Bld) 4.1 % Normal 0.9-7.0 [facility] Comment on above: Performed By: #### C BC #### [facility] [address] [place] [address] Dr. Becky Josue Erythrocyte distribution width (RBC) [Ratio] 14.5 % Normal 11.0-15.0 [facility] Comment on above: Performed By: #### C BC #### [facility] [address] [place] [address] Dr. Becky Josue Hematocrit (Bld) [Volume fraction] 43.5 % Normal 36.0-48.0 [facility] Comment on above: Performed By: #### C BC #### [facility] [address] [place] [address] Dr. Becky Josue Hemoglobin (Bld) [Mass/Vol] 13.7 g/dL Normal 12.0-16.0 [facility] Comment on above: Performed By: #### C BC #### [facility] [address] [place] [address] Dr. Becky Josue IG # 0.02 10e3/ul Normal 0.00-0.03 [facility] Comment on above: Performed By: #### C BC #### [facility] [address] [place] [address] Dr. Becky Josue IG % 0.4 % Normal 0.0-0.5 [facility] Comment on above: Performed By: #### C BC #### [facility] [address] [place] [address] Dr. Becky Josue LYMPH # 1.6 103/ul Normal 1.2-3.8 [facility] Comment on above: Performed By: #### C BC #### [facility] [address] [place] [address] Dr. Becky Josue Lymphocytes/100 WBC (Bld) 32.0 % Normal 20.5-60.0 [facility] Comment on above: Performed By: #### C BC #### [facility] [address] [place] [address] Dr. Becky Josue MANUAL DIFF REQ NO Normal [facility] Comment on above: Performed By: #### C BC #### [facility] [address] [place] [address] Dr. Becky Josue MCH (RBC) [Entitic mass] 29.5 pg Normal 26.7-34.0 [facility] Comment on above: Performed By: #### C BC #### [facility] [address] [place] [address] Dr. Becky Josue MCHC (RBC) [Mass/Vol] 31.5 g/dL Normal 29.9-35.2 [facility] Comment on above: Performed By: #### C BC #### [facility] [address] [place] [address] Dr. Becky Josue MCV (RBC) [Entitic vol] 93.5 fL Normal 81.0-99.0 [facility] Comment on above: Performed By: #### C BC #### [facility] [address] [place] [address] Dr. Becky Josue MONO # 0.4 103/ul Normal 0.3-0.8 [facility] Comment on above: Performed By: #### C BC #### [facility] [address] [place] [address] Dr. Becky Josue Monocytes/100 WBC (Bld) 8.8 % Normal 1.7-12.0 [facility] Comment on above: Performed By: #### C BC #### [facility] [address] [place] [address] Dr. Becky Josue NEUT # 2.7 103/ul Normal 1.4-6.5 [facility] Comment on above: Performed By: #### C BC #### [facility] [address] [place] [address] Dr. Becky Josue Neutrophils/100 WBC (Bld) 54.3 % Normal 43.0-75.0 [facility] Comment on above: Performed By: #### C BC #### [facility] [address] [place] [address] Dr. Bekcy Josue Platelet mean volume (Bld) [Entitic vol] 10.4 fL Normal 9.5-13.5 [facility] Comment on above: Performed By: #### C BC #### [facility] [address] [place] [address] Dr. Becky Josue PLT 158 103/ul Normal 150-450 [facility] Comment on above: Performed By: #### C BC #### [facility] [address] [place] [address] Dr. Becky Josue RBC 4.65 106/ul Normal 4.20-5.40 [facility] Comment on above: Performed By: #### C BC #### [facility] [address] [place] [address] Dr. Becky Josue WBC 4.9 103/ul Normal 4.0-11.0 [facility] Comment on above: Performed By: #### C BC #### [facility] [address] [place] [address] Dr. Becky Josue FREE THYROXINE INDEX T7on FTI 2.79 Normal [facility] Comment on above: Performed By: #### L IPID, CMP, T7, TSH ####[facility] [id number] [id number] Josue T3U 30.0 % Normal 23.5-40.5 [facility] Comment on above: Performed By: #### L IPID, CMP, T7, TSH ####[facility] [id number] [id number] Josue T4 [Mass/Vol] 9.30 ug/dL Normal 5.53-11.00 [facility] Comment on above: Performed By: #### L IPID, CMP, T7, TSH ####[facility] [id number] [id number] Jsoue GLYCOHEMOGLOBIN A1Con 2020 ADA RECOMMENDATION ADA THERAPEUTIC TARG ET 6.0 - 7.0 ACTION SUGGESTED > 7.0 Normal [facility] Comment on above: Performed By: #### A 1C #### [facility] [address] [address] [address] Becky Josue Glucose [Mass/Vol] 229 mg/dL Normal [facility] Comment on above: Performed By: #### A 1C #### [facility] [address] [address] [address] Becky Josue HbA1c (Bld) [Mass fraction] 9.6 % Critically high <=6.0 [facility] Comment on above: Performed By: #### A 1C #### [facility] [address] [address] [address] Becky Josue IRONon 10-03-2021 Iron [Mass/Vol] 62.0 ug/dL Normal 37.0-170.0 [facility] Comment on above: Performed By: #### I MARLYN #### [facility] [address] [address] [address] Becky Josue LIPID PROFILEon 10-03-2021 CHOL-HDL RATIO NORM SEE BELOW Normal [facility] Comment on above: Result Comment: 3.3 - 4.4 LOW RISK 4.4 - 7.1 AVERAGE RISK 7.1 - 11.0 MODERATE RISK >11.0 HIGH RISK Performed By: #### L IPID, CMP, T7, TSH #### [facility] [address] [address] [address] Becky Josue Cholesterol [Mass/Vol] 172 mg/dL Normal <=200 [facility] Comment on above: Performed By: #### L IPID, CMP, T7, TSH #### [facility] [address] [address] [address] Becky Josue Cholesterol in HDL [Mass/Vol] 38 mg/dL Normal [facility] Comment on above: Performed By: #### L IPID, CMP, T7, TSH #### [facility] [address] [place] [address] Dr. Becky Josue Cholesterol in LDL [Mass/Vol] 89.0 mg/dL Normal [facility] Comment on above: Performed By: #### L IPID, CMP, T7, TSH #### [facility] [address] [place] [address] Dr. Becky Josue Cholesterol.total/Padmini sterol in HDL [Mass ratio] 4.5 {ratio} Normal [facility] Comment on above: Performed By: #### L IPID, CMP, T7, TSH #### [facility] [address] [address] [address] Becky Josue HDL NORMAL > or = 60 mg/dl - LO W CARDIOVASCULAR RISK <40 mg/dl - HIGH CARDIOVASCULAR RISK Normal [facility] Comment on above: Performed By: #### L IPID, CMP, T7, TSH #### [facility] [address] [place] [address] Dr. Becky Josue LDL CALC NORMAL SEE BELOW Normal [facility] Comment on above: Result Comment: <100 mg/dl OPTIMAL 100 - 129 mg/dl NEAR OR ABOVE OPTIMAL 130 - 159 mg/dl BORDERLINE HIGH 160 - 189 mg/dl HIGH >190 mg/dl VERY HIGH Performed By: #### L IPID, CMP, T7, TSH #### [facility] [address] [address] [address] Becky Josue Triglyceride [Mass/Vol] 225 mg/dL Critically high <=150 [facility] Comment on above: Performed By: #### L IPID, CMP, T7, TSH #### [facility] [address] [address] [address] Becky Josue VLDL CALC 45.0 mg/dL Normal [facility] Comment on above: Performed By: #### L IPID, CMP, T7, TSH #### [facility] [address] [address] [address] Becky Josue PROF 14(COMP METB)on 021 Albumin [Mass/Vol] 3.1 g/dL Critically low 3.5-5.0 [facility] Comment on above: Performed By: #### L IPID, CMP, T7, TSH #### [facility] [address] [place] [address] Dr. Becky Josue Albumin/Globulin [Mass ratio] 0.8 {ratio} Normal [facility] Comment on above: Performed By: #### L IPID, CMP, T7, TSH #### [facility] [address] [place] [address] Dr. Becky Josue ALP [Catalytic activity/Vol] 100 U/L Normal 38-126 [facility] Comment on above: Performed By: #### L IPID, CMP, T7, TSH #### [facility] [address] [place] [address] Dr. Becky Josue ALT [Catalytic activity/Vol] 35 U/L Normal 9-52 [facility] Comment on above: Performed By: #### L IPID, CMP, T7, TSH #### [facility] [address] [address] [address] Becky Josue Anion gap [Moles/Vol] 13.0 mmol/L Normal [facility] Comment on above: Performed By: #### L IPID, CMP, T7, TSH #### [facility] [address] [place] [address] Dr. Becky Josue AST [Catalytic activity/Vol] 27 U/L Normal 14-36 [facility] Comment on above: Performed By: #### L IPID, CMP, T7, TSH #### [facility] [address] [address] [address] Becky Josue Bilirubin [Mass/Vol] 0.8 mg/dL Normal 0.2-1.3 [facility] Comment on above: Performed By: #### L IPID, CMP, T7, TSH #### [facility] [address] [place] [address] Dr. Becky Josue Calcium [Mass/Vol] 8.9 mg/dL Normal 8.4-10.2 [facility] Comment on above: Performed By: #### L IPID, CMP, T7, TSH #### [facility] [address] [place] [address] Dr. Becky Josue Chloride [Moles/Vol] 103 mmol/L Normal 98-107 [facility] Comment on above: Performed By: #### L IPID, CMP, T7, TSH #### [facility] [address] [place] [address] Dr. Becky Josue CO2 [Moles/Vol] 30.3 mmol/L Critically high 22.0-30.0 [facility] Comment on above: Performed By: #### L IPID, CMP, T7, TSH #### [facility] [address] [place] [address] Dr. Becky Josue Creatinine [Mass/Vol] 0.72 mg/dL Normal 0.52-1.04 [facility] Comment on above: Performed By: #### L IPID, CMP, T7, TSH #### [facility] [address] [place] [address] Dr. Becky Josue EGFR-AF NORTHER[place] IRISH >60 Normal >=60 [facility] Comment on above: Performed By: #### L IPID, CMP, T7, TSH #### [facility] [address] [place] [address] Dr. Becky Josue EGFR-NON AF [place]THER[place] IRISH >60 Normal >=60 [facility] Comment on above: Performed By: #### L IPID, CMP, T7, TSH #### [facility] [address] [place] [address] Dr. Becky Josue Globulin (S) [Mass/Vol] 3.9 g/dL Normal [facility] Comment on above: Performed By: #### L IPID, CMP, T7, TSH #### [facility] [address] [address] [address] Becky Josue Glucose [Mass/Vol] 261 mg/dL Critically high 74-106 [facility] Comment on above: Performed By: #### L IPID, CMP, T7, TSH #### [facility] [address] [address] [address] Becky Josue Potassium [Moles/Vol] 4.3 mmol/L Normal 3.4-5.0 [facility] Comment on above: Performed By: #### L IPID, CMP, T7, TSH #### [facility] [address] [address] [address] Becky Josue Protein [Mass/Vol] 7.0 g/dL Normal 6.1-8.2 [facility] Comment on above: Performed By: #### L IPID, CMP, T7, TSH #### [facility] [address] [address] [address] Becky Josue Sodium [Moles/Vol] 142 mmol/L Normal 137-145 [facility] Comment on above: Performed By: #### L IPID, CMP, T7, TSH #### [facility] [address] [address] [address] Becky Josue Urea nitrogen [Mass/Vol] 22.0 mg/dL Critically high 7.0-17.0 [facility] Comment on above: Performed By: #### L IPID, CMP, T7, TSH #### [facility] [address] [address] [address] Becky Josue Urea nitrogen/Creatinine [Mass ratio] 30.6 mg/mg Normal [facility] Comment on above: Performed By: #### L IPID, CMP, T7, TSH #### [facility] [address] [address] [address] Becky Josue TSHon 10-03-2021 TSH 2.809 uIU/mL Normal 0.470-4.680 [facility] Comment on above: Performed By: #### L IPID, CMP, T7, TSH ####[facility] [id number] [place], [place] [id number]. Becky Josue TSH RANGE SEE BELOW Normal [facility] Comment on above: Result Comment: <0.3 4 UIU/ml HYPERTHYROID 0.34-5.60 UIU/ml EUTHYROID >5.60 UIU/ml HYPOTHYROID Performed By: #### L IPID, CMP, T7, TSH ####[facility] [id number] [place], [place] [id number]. Becky Josue Vital Signs Date Time Vital Sign Value Performing Clinician Facility 02-12-2025 12:31-0400 Body height 167.64 cm Howard Hay DO Work Phone: [facility] 02-12-2025 12:31-0400 Body mass index (BMI) [Ratio] 33 kg/m2 Howard Hay DO Work Phone: [facility] 02-12-2025 12:31-0400 Body temperature 98.4 [degF] Howard Hay DO Work Phone: [facility] 02-12-2025 12:31-0400 Body weight 92.7 kg Howard Hay DO Work Phone: [facility] 02-12-2025 12:31-0400 Diastolic blood pressure 66 mm[Hg] Howard Hay DO Work Phone: [facility] 02-12-2025 12:31-0400 Heart rate 73 /min Howard Hay DO Work Phone: [facility] 02-12-2025 12:31-0400 Respiratory rate 12 /min Howard Hay DO Work Phone: [facility] 02-12-2025 12:31-0400 SaO2% (BldA) [Mass fraction] 96 % Howard Hay DO Work Phone: [facility] 02-12-2025 12:31-0400 Systolic blood pressure 151 mm[Hg] Howard Johnston DO Work Phone: [facility] 10-03-2024 14:06-0500 Blood Pressure Location Manoj DAMON [facility] 10-03-2024 14:06-0500 Diastolic blood pressure 68 mm[Hg] Manoj KEYL [facility] 10-03-2024 14:06-0500 Heart rate 72 /min Manoj KEYL [facility] 10-03-2024 14:06-0500 Respiratory rate 16 /min Manoj KEYL [facility] 10-03-2024 14:06-0500 Systolic blood pressure 132 mm[Hg] Manoj KEYL [facility] 02-16-2022 12:30-0400 Body height 167.64 cm Ashley Cox Other [employer] Other 02-16-2022 12:30-0400 Body mass index (BMI) [Ratio] 34.21 kg/m2 Ashley Cox Other [employer] Other 02-16-2022 12:30-0400 Body temperature 97.8 [degF] Ashley Cox Other [employer] Other 02-16-2022 12:30-0400 Body weight 96.16 kg Ashley Cox Other [employer] Other 02-16-2022 12:30-0400 Respiratory rate 18 /min Ashley Cox Other [employer] Other 02-16-2022 12:30-0400 SaO2% (BldA) [Mass fraction] 97 % Ashley Cox Other [facility] [employer] Other Encounters Encounter Date Encounter Type Care Provider Facility Start: 06-13-2025 Evaluation and management of inpatient [facility] Start: 06-13-2025 ambulatory [facility] Start: 06-13-2025 End: 06-15-2025 Evaluation and management of inpatient [facility] Start: 05-28-2025 End: 05-28-2025 ambulatory JESSICA [facility] Start: 04-25-2025 End: 04-25-2025 Evaluation and management of inpatient JESUS Jordan MARBIN [facility] Start: 04-23-2025 End: 04-23-2025 ambulatory [facility] Start: 04-10-2025 End: 04-10-2025 ambulatory MARYJANE VALENCIA [facility] Start: 04-10-2025 End: 04-10-2025 ambulatory DAMIAN [facility] Start: 04-01-2025 ambulatory [facility] Start: 03-05-2025 End: 03-05-2025 ambulatory Maryjane Valencia Facility:[facility] Start: 03-05-2025 End: 03-05-2025 Departed Referred Maryjane Valencia MD Work Phone: [facility] Start: 02-26-2025 End: 02-26-2025 ambulatory [facility] Start: 02-12-2025 End: 02-12-2025 ambulatory Howard Johnston DO Work Phone: [place] Work Phone: Start: 02-12-2025 End: 02-12-2025 Patient encounter procedure Howard Johnston DO Work Phone: [facility] Work Phone: Start: 02-07-2025 ambulatory ROGERS [facility] Start: 01-29-2025 End: 01-29-2025 ambulatory JESUS ZAZUETA [facility] Start: 01-23-2025 End: 01-23-2025 ambulatory DAMIAN GOMEZ [facility] Start: 01-23-2025 End: 01-23-2025 ambulatory DAMIAN [facility] Start: 01-03-2025 ambulatory ROGERS [facility] Start: 12-18-2024 End: 12-18-2024 ambulatory [facility] Start: 12-03-2024 ambulatory [facility] Start: 11-27-2024 End: 11-27-2024 ambulatory Manoj DAMON Facility:[facility] Start: 11-27-2024 End: 11-27-2024 Patient encounter procedure Manoj DAMON [facility] General Surgery [employer] Start: 11-18-2024 End: 11-19-2024 Non-patient / Non-visit Howard Johnston DO Work Phone: [facility] Work Phone: Start: 11-15-2024 End: 11-15-2024 ambulatory Lon Del Rosario Facility:[facility] Start: 11-15-2024 End: 11-15-2024 Departed Referred Howard Johnston DO Work Phone: [facility] Start: 11-14-2024 End: 11-14-2024 ambulatory Howard Johnston Facility:[facility] Start: 11-14-2024 End: 11-14-2024 Departed Referred Howard Johnston DO Work Phone: [facility] Start: 11-09-2024 End: 11-09-2024 ambulatory [facility] Start: 11-07-2024 End: 11-07-2024 ambulatory Manoj Damon Facility:[facility] Start: 11-07-2024 End: 11-07-2024 ambulatory Manoj DAMON Facility:[id number] Start: 11-02-2024 ambulatory [facility] Start: 10-22-2024 ambulatory [facility] Start: 10-08-2024 ambulatory [facility] Start: 10-03-2024 End: 10-03-2024 ambulatory Maryjane Valencia Facility:[facility] Start: 10-03-2024 End: 10-03-2024 Patient encounter procedure Manoj DAMON [facility] Surgery [employer] Start: 09-13-2024 ambulatory [facility] Start: 09-03-2024 ambulatory [facility] Start: 08-06-2024 End: 08-06-2024 ambulatory [facility] Start: 07-03-2024 End: 07-03-2024 ambulatory [facility] Start: 09-24-2022 End: 09-25-[address] MARYJANE VALENCIA Facility:[facility] Start: 02-16-2022 End: 02-16-2022 ambulatory Ashley Cox Other [employer] Other Start: 02-16-2022 Office outpatient vi sit 15 minutes Ashley Cox [facility] Start: 10-26-2021 End: 10-26-2021 ambulatory Soco Hernandez Other [employer] Other Start: 10-26-2021 Office outpatient vi sit 5 minutes Soco Hernandez [facility] Start: 10-12-2021 End: 10-13-[address] MARYJANE VALENCIA Facility:[facility] Start: 10-08-2021 Encounter for genera l adult medical examination without abnormal findings DR MARYJANE VALENCIA [facility] Start: 10-03-2021 End: 10-04-2021 ambulatory [...] in Blood by Culture Howard Johnston DO [email or web address] Phone: Start: 11-14-2024 Urine culture Howard Johnston DO [email or web address] Phone: Start: 11-07-2024 Colonoscopy Manoj NILL Start: [...] Activity Detail Author Start: 03-05-2025 Urine culture [facility] Start: 03-05-2025 Bacteria identified in Urine by Culture Urine Culture [facility] Immunizations Immunization Date Immunization Notes Care Provider Fa cililatha 11-09-2021 SARS-CoV-2 (COVID-19 ) mRNA BNT-162b2 vax Manoj DAMON [facility] 01-25-2021 SARS-CoV-2 (COVID-19 ) Ad26 vaccine, recombinant Manoj DAMON [facility] Payers Date Payer Category Payer Medicare [id number] 2024 Self-pay 2021 Medicare [id number] 2.1 [id number] 1959 Unknown [id number] 2. [id number] 1955 Unknown [id number] 2.16.84 [id number] 1955 Unknown [id number] 2.16.84 [id number] 1955 Unknown [id number] 2.16.84 [id number] 1955 Unknown [id number] 2.16.8 [id number] 1955 Unknown [id number] 2.16.8 40.1.781079.3.579.2.727 1955 Unknown [id number] 2.16.8 40.1.551195.3.579.2.727 1955 Unknown [id number] 2.16. [id number] 1955 Unknown [id number] 2.16. [id number] 1955 Unknown [id number] 2.16. [id number] Unknown [id number] 2.16.8 40.1.257595.3.579.2.531 Unknown [id number] 2.16.8 40.1.001334.3.579.2.531 Unknown [id number] 2.16.8 40.1.294560.3.579.2.531 Unknown [id number] 2.16.8 [id number] Social History Date Type Detail Facility Sex Assigned At [facility] Start: 02-16-2022 End: 10-03-2024 Tobacco smoking status Never smoked tobacco (finding) [facility] Tobacco smoking status Never [facility] Start: 02-12-2025 End: 03-07-2025 Sex Female (finding) [facility] Start: 1955 Sex Assigned At Female F [facility] Functional Status Date Assessment Result Facility 10-03-2024 Functional Status N/A [facility] Notes 10-26-2021 to 06-14-2025 Note [...] access to food prepared their own meals captain/check airman NFPE, completed on (06/14): Muscle depletion: Temporalis [...] ideal body weight (59 kg) Calorie needs: 3825-6521 kcals/day based on 25-30 kcal/kg Protein needs: [...] 1 month, s (more content not included)... [facility] 07-24-2025 Note -- Attestation signed by [...] call with any questions. Angie Haque PGY-4 Reeling Operator [facility] 06-13-2025 Note ATRIAL FIBRILLATION ABLATION PROCEDURE NOTE DATE OF PROCEDURE: 06/13/2025 PERFORMING PHYSICIAN: Dr. Rogers Catalan SOUND PERSON: REJI CONSENT: Patient NAME OF THE PROCEDURE: [...] with [place] seal. She was transferred to [facility] for observation. LA baseline (mmHg) [...] hrs of sh (more content not included)... [facility] 06-13-2025 Note Patient: Connie Young Sa nchez Procedure Summary Date: 06/13/25 Room / Location: [facility] PROTECTION ENGINEER 1 EP / [facility] VASCULAR LAB (Cath) Anesthesia Start: 0850 [...] per anesthesia protocol. No notable events documented. [facility] 06-13-2025 Note Patient: Connie A Sa nchez Procedure Summary Date: 06/13/25 Room / Location: [facility] PROTECTION ENGINEER 1 EP / [facility] VASCULAR [facility] (Cath) Anesthesia Start: 0850 [...] observation Transport: uneventful Patient condition is: stable [facility] 06-13-2025 Note Patient: Connie A Sa nchez Procedure Information Anesthesia Start Date/Time: 06/13/25 0850 Procedure: Ablation a-fib paroxysmal Location: [facility] PROTECTION ENGINEER 1 EP / [facility] VASCULAR [facility] (Cath) Providers: Rogers Catalan [...] Value Ventricular Rate 63 Atrial Rate 63 [place] Interval 196 QRS DURATION 78 QT Interval 440 QTC CALCULATION(BAZETT) 450 P Thaxton 52 R-Thaxton 18 T Wave Thaxton 52 Impression Normal sinus rhythm Normal ECG [...] use: Not Currently ??? Drug use: Never [facility] 06-13-2025 Note Airway Date/Time: 06/13/2025 9:06 AM Reason: elective Airway not difficult General Information and Staff Patient location during procedure: OR Anesthesiologist: Dayo Thomson MD Resident/MECHANIC WELDER/CAA: Jhonathan Hernandez MD Performed: resident/MECHANIC WELDER/CAA Patient Condition Indications for airway management: anesthesia [...] 1 Number of other approaches attempted: 0 [facility] 05-28-2025 Note [facility] Gastroenterolog y Connie Brian is a [...] in this pleasant patient???s care. Jessica Oates [facility] 04-23-2025 Note [place] Electrophysiology Consult Note [facility] Clinic Reason for visit: Afib 04/23/2025 Patient [...] 02/26/25 Patient here for follow up from [facility]. Patient had fluid taken off and aslo had blood transfusions. Patient states she had an at [facility]. EGD showed 3 bleeding ulcers. Patient [...] palpitations. She was recently seen at the [facility] for A-fib RVR as she [...] show any evidence of reversible ischemia. below [id number] at least 4 for age, gender, hypertension, [...] Reactions Sulfa (Sulfona (more content not included)... [facility] 04-10-2025 Note -- Attestation signed by Damian Gomez MD at 04/10/2025 8:58 PM Seen and discussed with fellow, agree with assessment and plan. -- [facility] Gastroenterology History & Physical CHIEF COMPLAINT [...] Colonoscopy was done at Dr. Turpin at [facility] 11/06/2025 EGD 01/29/25: Findings: The examination [...] Past Surgical Hi (more content not included)... [facility] 02-26-2025 Note [place] Electrophysiology Consult Note [facility] Clinic Reason for visit: Afib 02/26/25 Patient here for follow up from [facility]. Patient had fluid taken off and aslo had blood transfusions. Patient states she had an at [facility]. EGD showed 3 bleeding ulcers. Patient [...] palpitations. She was recently seen at the [facility] for A-fib RVR as she was admitted for diarrhea and palpitations. She was found to have C. difficile and was treated with antibiotics and converted to sinus rhythm on her own. She states she normally would get palpitations when she drinks caffeine and typically avoids caffeine, the day of her admission she believes she was given caffeinated coffee at [facility] and then began experience palpitations while already dealing with her diarrhea so she was seen by ER. She had also been experiencing lower extremity swelling and was diuresed and patient which has resolved. She for some reason was deferred to [facility] for follow up and stress test [...] show any evidence of reversible ischemia. below [id number] at least 4 for age, gender, hypertension, [...] 0 diclofenac (Voltaren) (more content not included)... [facility] 02-12-2025 Evaluation note Diagnosis Onset Date Resolution Skin tear of left lower leg without complication noneactive February 12, 2025 12:04pm Skin tear of left forearm without complication noneactive February 12, 2025 12:04pm [facility] Work Phone: 1(413) 896-997103-11-2025 NotePatient: Connie Brian Procedure Summary Date: 01/29/25 Room / Location: [facility] Invasive Surgery [facility] Anesthesia Start: 1155 Anesthesia Stop: 1223 [...] PACU per anesthesia protocol. No notable events documented.[facility]03-11-2025 Note Patient: Connie Brian Procedure Information Date/Time: 01/29/25 1200 Scheduled providers: Jesus Zazueta MD; Henry Bull MD; KAILA Jeronimo Procedure: EGD Location: [facility] Invasive Surgery [facility] Relevant Problems Cardio ECHO 2023 LEFT [...] patient. Plan discussed with KAILA. [facility] Attestation signed by Damian Gomez MD at 01/23/2025 3:48 PM Seen and discussed with fellow, agree with assessment and plan. [facility] Gastroenterology New Patient Visit - History & Physical CHIEF COMPLAINT Chief Complaint Patient presents with New Patient EGD scheduled, was at [facility] and sent for an EGD but also [...] LABS/IMAGING/ENDOSCOPY: EGD and Colonoscopy was done in [facility] 11/06/2025 HISTORY: Problem list: Patient [...] Medications: Current Outpatient Medic (more content not included)...[facility]01-28-2025 NoteUT Electrophysiology Consult Note [facility] Clinic Reason for visit: Patient here for follow up [facility] per Dr. Espinoza. 12/19/24 She was admitted [...] palpitations. She was recently seen at the [facility] for A-fib RVR as she was admitted for diarrhea and palpitations. She was found to have C. difficile and was treated with antibiotics and converted to sinus rhythm on her own. She states she normally would get palpitations when she drinks caffeine and typically avoids caffeine, the day of her admission she believes she was given caffeinated coffee at [facility] and then began experience palpitations while [...] show any evidence of reversible ischemia. below [id number] at least 4 for age, gender, hypertension, [...] the morning. venlafaxine XR (more content not included)...[facility] 11-09-2024 NoteUT Cardiology - [facility] Clinic Subjective Connie Brian is a 69 [...] RVR when she was admitted to the [facility] with diarrhea due to C. [...] 83 Ht 1.676 m (more content not included)...[facility] 10-03-2024 NoteGeneral Surgery Office/Clinic Note Chief [...] Eliquis 5 mg oral (more content not included)...[facility] Comment on above:Result Comment: Electronically Signed By: JOSE ALBERTO MARRERO, Manoj Hernandez.cruz\Date and Time Signed: 10/03/24 14:54 [id number] NoteLOOP IMPLANT PROCEDURE NOTE DATE OF PROCEDURE: 08/06/24 PERFORMING PHYSICIAN: Dr. Rogers Catalan SOUND PERSON: REJI INDICATIONS FOR PROCEDURE: 1. SVT/AF surveillance [...] the sternum on the left using the Zample tool. The loop recorder was then injected [...] wet the incision. Rogers Catalan MD Cardiac Electrophysiology.[facility]08-13-2024 NoteUT Electrophysiology Consult Note [facility] Clinic Reason for visit: Afib 07/03/24 Pt is doing well and occasionally feels palpitations. HPI: Connie Brian is a 68 y.o. year old with past medical history of Hypertension, diabetes, dyslipidemia, palpitations. She was recently seen at the [facility] for A-fib RVR as she was admitted for diarrhea and palpitations. She was found to have C. difficile and was treated with antibiotics and converted to sinus rhythm on her own. She states she normally would get palpitations when she drinks caffeine and typically avoids caffeine, the day of her admission she believes she was given caffeinated coffee at [facility] and then began experience palpitations while already dealing with her diarrhea so she was seen by ER. She had also been experiencing lower extremity swelling and was diuresed and patient which has resolved. She for some reason was deferred to [facility] for follow up and stress test ordered but not done she has been feeling well with no complaints of chest pain, shortness of breath, BRERY, orthopnea, palpitations. She has noticed some LE edema. Her insurance denied CTA coronaries, ordered by Christopher Mc CNP in Jun 2023. Denies chest pain. Still gets episodes of SOB w/ exertion. Has had intermittent palpitations the last couple weeks. Stress test done on 07/27/2023 does not show any evidence of reversible ischemia. below [id number] at least 4 for age, gender, hypertension, [...] fibrillation (CMS/HCC) C. difficile colitis Diabetes mellitus ([facility]) Hyperlipidemia Hypertension PSH: Past Surgical History: Procedure [...] lesions on external ear (more content not included)...[facility]03-29-2022 Evaluation note* Encounter Date Diagnosis Assessment [...] exam and duration of symptoms. May use Hearne or Flonase as directed. May use Zofran [...] Patient care instructions given in writting by [facility] Care At Home document [employer] Other 12-06-2021 Evaluation note* Encounter Date Diagnosis [...] Patient care instructions given in writting by [facility] Care At Home document. [employer] Other Evaluation + Plan note No data available for this section [facility] Surgery [employer] Evaluation noteNo assessment information available [place] Work Phone: History general Narrative - Reported* Type Description Date Medical History Diabetes Medical History HTN (hypertension) Medical History Anxiety Medical History Uterine cancer Surgical History hysterectomy Surgical History C section Surgical History tonsillectomy Surgical History appendectomy Surgical History cholecystectomy Surgical History colonoscopy Surgical History biopsy Hospitalization History pneumonia Hospitalization History see above [employer] Other Hospital Discharge instructions No data available for this section [facility] [employer] Progress note No data available for this section [facility] [employer] Summary Purpose Family History No Family History [...] CREATED AUTHOR AUTHOR'S ORGANIZ ATION [facility]/30/2024 [facility] DATE CREATED AUTHOR AUTHOR'S ORGANIZ ATION 03/08/2025 [facility] DATE CREATED AUTHOR AUTHOR'S ORGANIZ ATION 04/26/2025 [facility] DATE CREATED AUTHOR AUTHOR'S ORGANIZ ATION 06/29/2025 [facility] Patient Care team informatio n [...] BE BASED ON THE PRIMARY CLINICAL RECORDS. [employer] [facility]. provides no warranty or guarantee of the accuracy or completeness of information in this document.
[2025-07-11] MEDS: INSULIN ASPART 300 UNIT/3 ML PEN SUBQ (21:35)
[2025-07-11] MEDS: PANTOPRAZOLE SODIUM 40 MG VIAL IV (21:35)
[2025-07-12] VITALS (23 sets, daily range): BP systolic 120–146; BP diastolic 51–76; PULSE 63–75; TEMP 36.3–36.8; O2SAT 93–98
[2025-07-12 06:07] LABS: Mean Corpuscular HGB Conc 28.9 g/dL (29.9-35.2); Mean Corpuscular Hemoglobin 22.2 pg (26.7-34.0); Mean Corpuscular Volume 77.0 fL (81.0-99.0); Platelet Count 183 10^3/uL (150-450); Red Blood Count 2.52 10^6/uL (4.20-5.40); White Blood Count 4.3 10^3/uL (4.0-11.0)
[2025-07-12 06:30] LABS: Alanine Aminotransferase 29 U/L (14-59); Albumin Globulin Ratio 0.7; Albumin Level 2.5 g/dL (3.4-5.0); Alkaline Phosphatase 90 U/L (46-116); Anion Gap 12.4; Aspartate Amino Transferase 17 U/L (15-37); Blood Urea Nitrogen 41.0 mg/dL (7.0-18.0); Calcium 8.0 mg/dL (8.5-10.1); Carbon Dioxide 27.6 mmol/L (21.0-32.0); Chloride 104 mmol/L (98-107); Estimated GFR (African America 56 (>=60 mL/min/1.73m^2); Estimated GFR (Non-African Ame 46 (>=60 mL/min/1.73m^2); Globulin 3.6 g/dL; Glucose 262 mg/dL (74-106); Potassium 4.0 mmol/L (3.5-5.1); Sodium 140 mmol/L (136-145); Total Protein 6.1 g/dL (6.4-8.2)
[2025-07-12 06:31] LABS: Hematocrit 19.4 % (36.0-48.0); Hemoglobin 5.6 g/dL (12.0-16.0)
[2025-07-12 06:36] LABS: Folate 11.70 ng/mL (8.60-58.90)
--- NOTE | 2025-07-12 08:50 | CM.NOTE ---
Rounds made with Dr. Hoang, discussed reason for admission and plan of care. Dr. Hoang discussed iron deficiency anemia. Pt awaiting blood transfusion. Pt has antibodies and will receive transfusion once blood available. Pt verbalizes understanding.
--- NOTE | 2025-07-12 09:00 | SWNOTE1 ---
Important Message from Medicare reviewed and discussed with patient. Pt. verbalized understanding and signed the form. Original given to patient and copy placed in patient?s chart.
--- NOTE | 2025-07-12 09:02 | SWNOTE1 ---
SW met with pt to discuss dc needs. Pt lives at home with her friend. Pt voiced she has been doing fairly well at home. It is just figuring out where the blood loss is coming from. She stated the doctor told her it is her body not producing Iron, so looking in to this. Pt does use a cane at home at times. Pt does still drive if she is feeling well. Pt does not have any services coming in at this time and does not feel she has any discharge needs at this time. SW to follow as needed. SW did ask pt about completing Advanced Directives. She voiced she is open to this, but would like to know more about it. SW did explain what the HCPOA and Living Will is and advised pt that SW will bring back the Advanced Directive packet to review with pt. Pt is in agreement with this.
[2025-07-12] MEDS: PANTOPRAZOLE SODIUM 40 MG VIAL IV ×2 (09:19→22:28)
[2025-07-12] MEDS: INSULIN ASPART 300 UNIT/3 ML PEN SUBQ ×4 (09:20→22:27)
[2025-07-12] MEDS: FUROSEMIDE 40 MG TABLET PO (09:22)
[2025-07-12] MEDS: VENLAFAXINE HCL ER 75 MG CAPSULE PO (09:22)
[2025-07-12] MEDS: IRON SUCROSE COMPLEX 200 MG in 0.9 % SODIUM CHLORIDE 100 ML 220 MG IV (09:26)
--- NOTE | 2025-07-12 14:30 | PM.HP ---
HPI H&P: HPI History of Present Illness Chief complaint: ANEMIA Narrative: Mrs. Brian is a 69-year-old female with a known diagnosis of cirrhosis. Patient does not know what is the etiology of her cirrhosis. Patient went to see her automobile service writer yesterday and noted to be pale. Routine blood work showed a hemoglobin of 6 therefore patient was instructed to come to the emergency room. Patient takes iron for anemia. She has had multiple transfusions in the past. She reported that her stool is dark since she started taking iron. She stated that she had EGD, colonoscopy which did not show the source of the bleed. Subsequently patient had capsule endoscopy and is still no source of a bleed that had been identified. Patient denies any hematemesis, melena, hematuria. No abdominal pain, nausea or vomiting Opioid HPI Opioid Management Most Recent Pain and Opioid Data: Last Pain Scale 0 Today, 07:36 Last Pain Intensity 5 11/16/24, 08:29 Last Pain Assessment 07/11/25, 20:07 Last ORT Total Score 0 07/11/25, 18:41 Last ORT Risk Category Low Risk 07/11/25, 18:41 Review of Systems ROS Status of ROS 10 or more systems reviewed and unremarkable except as noted in history and below [facility] Medical History Edema of both lower legs ?R60.0 - Localized edema (ICD-10) Pleural effusion ?J90 - Pleural effusion, not elsewhere classified (ICD-10) Cirrhosis of liver with ascites ?K74.60 - Unspecified cirrhosis of liver (ICD-10) ?R18.8 - Other ascites (ICD-10) Acute hyperkalemia ?E87.5 - Hyperkalemia (ICD-10) Acute kidney failure ?N17.9 - Acute kidney failure, unspecified (ICD-10) Symptomatic anemia ?D64.9 - Anemia, unspecified (ICD-10) Acute dehydration ?E86.0 - Dehydration (ICD-10) Acute kidney injury ?N17.9 - Acute kidney failure, unspecified (ICD-10) Septic shock ?A41.9 - Sepsis, unspecified organism (ICD-10) ?R65.21 - Severe sepsis with septic shock (ICD-10) Atrial fibrillation with rapid ventricular response ?I48.91 - Unspecified atrial fibrillation (ICD-10) Sepsis ?A41.9 - Sepsis, unspecified organism (ICD-10) Hypertension ?I10 - Essential (primary) hypertension (ICD-10) Diabetes ?E11.9 - Type 2 diabetes mellitus without complications (ICD-10) Dyslipidemia ?E78.5 - Hyperlipidemia, unspecified (ICD-10) Hypomagnesemia ?E83.42 - Hypomagnesemia (ICD-10) Acute hyperglycemia ?R73.9 - Hyperglycemia, unspecified (ICD-10) Cervical cancer ?C53.9 - Malignant neoplasm of cervix uteri, unspecified (ICD-10) Osteoarthritis ?M19.90 - Unspecified osteoarthritis, unspecified site (ICD-10) Sleep apnea ?G47.30 - Sleep apnea, unspecified (ICD-10) Kidney stones ?N20.0 - Calculus of kidney (ICD-10) Cataract ?H26.9 - Unspecified cataract (ICD-10) Palpitations ?R00.2 - Palpitations (ICD-10) Anemia ?D64.9 - Anemia, unspecified (ICD-10) Rotator cuff arthropathy of left shoulder ?M12.812 - Other specific arthropathies, not elsewhere classified, left shoulder (ICD-10) Atrial fibrillation with rapid ventricular response ?I48.91 - Unspecified atrial fibrillation (ICD-10) Surgical History H/O repair of rotator cuff ?Z98.890 - Other specified postprocedural states (ICD-10) H/O section ?Z98.891 - History of uterine scar from previous surgery (ICD-10) History of tonsillectomy ?Z90.89 - Acquired absence of other organs (ICD-10) History of cholecystectomy ?Z90.49 - Acquired absence of other specified parts of digestive tract (ICD-10) History of appendectomy ?Z90.49 - Acquired absence of other specified parts of digestive tract (ICD-10) H/O: hysterectomy ?Z90.710 - Acquired absence of both cervix and uterus (ICD-10) Family History Grandmother Family history of cancer Father Family history of diabetes mellitus Grandfather Family history of cancer Brother Family history of hypertension Social History Within the past year, how often did you have a drink containing alcohol: monthly or less Within the past year, how often did you have six or more drinks on one occasion: never Smoking status: Never smoker Non-prescribed substance use: denies use 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 Highest level of school completed/degree received: high school graduate Do you want help with school or training: No Are you now , , , , never or living with a partner: never In a typical week, how many times do you talk on the telephone with family, friends, or neighbors: 3 or more times per week How often do you get together with friends or relatives: once per week How often do you attend latter day or yarsani services: 4 or more times per year Do you belong to any clubs or organizations such as latter day groups unions, [employer] or athletic groups, or school groups: yes Total score: 3 Score interpretation: A score of greater than or equal to 2 indicates the lowest level of social isolation. Little interest or pleasure in doing things: not at all Feeling down, depressed, or hopeless: not at all Feel stressed/tense/nervous/anxious/difficulty sleeping: not at all Life stressors: recent of family or friend Due to disability, difficulty making decisions: No Meds Home Medications and Allergies Home Medications ?Medication ?Instructions ?Recorded ?Confirmed ?Type metformin 500 mg tablet 1,000 mg PO BID 05/23/23 07/11/25 History ramipril 10 mg capsule 10 mg PO DAILY 05/23/23 07/11/25 History simvastatin 20 mg tablet 20 mg PO DAILY 05/23/23 07/11/25 History venlafaxine 75 mg capsule,extended 75 mg PO DAILY 05/23/23 07/11/25 History release 24 hr apixaban 5 mg tablet (Eliquis) 5 mg PO BID #60 tabs 05/25/23 07/11/25 Rx magnesium oxide 400 mg (241.3 mg 400 mg PO BID #60 tabs 05/25/23 07/11/25 Rx magnesium) tablet furosemide 40 mg tablet (Lasix) 40 mg PO DAILY #30 tabs 03/07/25 07/11/25 Rx pantoprazole 40 mg tablet,delayed 40 mg PO BID #60 tabs 03/07/25 07/11/25 Rx release (Protonix) sucralfate 1 gram tablet 1 g PO ACHS #120 tabs 03/07/25 07/11/25 Rx spironolactone 50 mg tablet 50 mg PO DAILY 07/11/25 07/11/25 History Allergies Allergy/AdvReac Type Severity Reaction Status Date / Time Sulfa (Sulfonamide AdvReac Mild Hives Verified 07/11/25 15:31 Antibiotics) Exam Narrative Exam Narrative: [pt is awake and alert. oriented to place, time and person HEENT: Pale conjunctiva and NL buccal mucosa Neck: Supple, no tenderness Endocrine: No Thyromegaly. Vascular: No JVD or carotid bruit. Lymphatic: No cervical lymphadenopathy. Chest: CTA no DTP. Heart RRR, no extra sound or murmur. Abd: Soft, no tenderness, no rebound and no rigidity. Increase abd girth therefore clinically I could not exclude the possibility of intra abd mass or organomegaly. LE: No cyanosis or clubbing, no varices or edema. Neuro: A A O. Nl speech, comprehension and attention. Nl and symetrical motor and tone examination through out. []] Constitutional Vital Signs, click to edit/add: Last Vital Signs Temp 97.8 F 07/12/25 11:27 Pulse 67 07/12/25 14:07 Resp 16 07/12/25 11:27 BP 131/64 07/12/25 11:27 Pulse Ox 97 07/12/25 11:27 O2 Del Method Room Air 07/12/25 11:27 Results Labs Labs: Short CBC 07/11/25 07/12/25 Range/Units 15:35 05:26 WBC 5.1 4.3 (4.0-11.0) 10^3/uL Hgb 6.3 L* 5.6 L* (12.0-16.0) g/dL Hct 22.3 L* 19.4 L* (36.0-48.0) % Plt Count 191 183 (150-450) 10^3/uL BMP 07/11/25 07/12/25 15:35 05:26 Sodium 140 140 Potassium 4.5 4.0 Chloride 104 104 Carbon Dioxide 25.9 27.6 BUN 40.0 H 41.0 H Creatinine 1.60 H 1.17 H Glucose 433 H 262 H Calcium 8.2 L 8.0 L Liver Function 07/11/25 07/12/25 Range/Units 15:35 05:26 Total Bilirubin 0.8 0.8 (0.2-1.0) mg/dL AST 28 17 (15-37) U/L ALT 37 29 (14-59) U/L Alkaline Phosphatase 112 90 (46-116) U/L Albumin 2.9 L 2.5 L (3.4-5.0) g/dL Assessment and Plan Assessment and Plan (1) Symptomatic anemia: (2) Atrial fibrillation, new onset: (3) Cirrhosis: Plan Severe anemia. Patient has had chronic anemia requiring blood transfusion in the past. She had EGD and colonoscopy in [place] which did not reveal any source of the bleed. Subsequently patient had capsule endoscopy which also did not show any source of the bleed. Patient has been on iron. Stool Hemoccult tested negative in the emergency room department. Blood pressure is stable. I requested iron study which came back positive for severe iron deficiency anemia. B12 is pending I recommend the patient to have at least 2 units of RBC transfusion. I recommended and initiated iron infusion. I suspect that her ongoing anemia is likely caused by iron deficiency without adequate supplementation. I started patient on PPI intravenously in case she has intermittent upper GI bleed Liver cirrhosis Patient does not know the etiology of her liver cirrhosis. Nobody told her that before. Patient stated that she was double her size and weight before. She lost a lot of weight. I suspect that her cirrhosis could be related to [place]. I ordered hepatitis panel to rule out chronic hepatitis. I recommend patient to follow-up with hepatology. She would need serial screening EGD, screening for liver cancer, screening for portal hypertension and esophageal varices Furthermore she may need to have FibroScan, liver biopsy and other needed workup to figure out the etiology of her cirrhosis. This may include but not limited to viral, autoimmune, infiltrative or neoplastic liver disease Hypertension Hold BP meds due to the severity of her anemia. Diabetes Accu-Chek with a sliding scale History of A-fib Currently patient is in sinus rhythm. Hold Eliquis for 24 to 48 hours to ensure that her hemoglobin is stable and no active or recurrent bleed Chronic medical conditions not listed above, incidental findings seen on labs and imaging. These would need to be addressed. Could be addressed when time and condition are appropriate. Could be addressed in the outpatient setting by PCP collaboration with other needed outpatient providers.
--- NOTE | 2025-07-12 23:51 | PC.NURSE ---
Patient has small pressure injury to right buttock. Applied meiplex dressing for preventative measures
[2025-07-13] VITALS (17 sets, daily range): BP systolic 129–168; BP diastolic 54–67; PULSE 58–74; TEMP 36.4–36.8; O2SAT 95–98
[2025-07-13 01:19] LABS: Glucose Urine UA 100 mg/dL (NEGATIVE)
[2025-07-13 01:28] LABS: Crystals Seen? None Seen #/HPF (None Seen)
[2025-07-13 01:29] LABS: Cast Seen? NONE SEEN #/LPF (NONE SEEN); Urine Culture Indicated YES-FRMC
[2025-07-13 04:07] LABS: Vitamin B12 625 pg/mL (232-1245)
[2025-07-13 07:25] LABS: Hematocrit 26.0 % (36.0-48.0); Hemoglobin 7.7 g/dL (12.0-16.0); Mean Corpuscular HGB Conc 29.6 g/dL (29.9-35.2); Mean Corpuscular Hemoglobin 23.3 pg (26.7-34.0); Mean Corpuscular Volume 78.5 fL (81.0-99.0); Platelet Count 194 10^3/uL (150-450); Red Blood Count 3.31 10^6/uL (4.20-5.40); White Blood Count 3.9 10^3/uL (4.0-11.0)
[2025-07-13 07:48] LABS: Alanine Aminotransferase 29 U/L (14-59); Albumin Globulin Ratio 0.7; Albumin Level 2.5 g/dL (3.4-5.0); Alkaline Phosphatase 89 U/L (46-116); Anion Gap 12.8; Aspartate Amino Transferase 33 U/L (15-37); Blood Urea Nitrogen 30.0 mg/dL (7.0-18.0); Calcium 8.6 mg/dL (8.5-10.1); Carbon Dioxide 26.1 mmol/L (21.0-32.0); Chloride 104 mmol/L (98-107); Estimated GFR (African America >60 (>=60 mL/min/1.73m^2); Estimated GFR (Non-African Ame 58 (>=60 mL/min/1.73m^2); Globulin 3.6 g/dL; Glucose 229 mg/dL (74-106); Magnesium 1.8 mg/dL (1.8-2.4); Potassium 3.9 mmol/L (3.5-5.1); Sodium 139 mmol/L (136-145); Total Protein 6.1 g/dL (6.4-8.2)
[2025-07-13] MEDS: PANTOPRAZOLE SODIUM 40 MG VIAL IV ×2 (08:23→21:26)
[2025-07-13] MEDS: FUROSEMIDE 40 MG TABLET PO (08:23)
[2025-07-13] MEDS: VENLAFAXINE HCL ER 75 MG CAPSULE PO (08:23)
[2025-07-13] MEDS: INSULIN ASPART 300 UNIT/3 ML PEN SUBQ ×4 (08:23→21:35)
--- NOTE | 2025-07-13 09:33 | PM.PN ---
Progress Note: Subjective Subjective Interval history: Patient is feeling much better. Improvement of subjective feeling of fatigue and tiredness. Improvement of her shortness of breath and energy level. No hematemesis or melena. No chest or abdominal pain Exam Narrative Exam Narrative: Pale skin and buccal mucosa. Chest is clear, heart is regular. Abdomen soft, nontender. Mild ascites. Lower extremities no edema. Constitutional Vital Signs, click to edit/add: Last Vital Signs Temp 97.9 F 07/13/25 07:24 Pulse 66 07/13/25 08:00 Resp 18 07/13/25 07:24 BP 136/63 07/13/25 07:24 Pulse Ox 95 07/13/25 07:24 O2 Del Method Room Air 07/13/25 07:24 Progress Note: Objective Labs Labs: Short CBC 07/13/25 Range/Units 06:37 WBC 3.9 L (4.0-11.0) 10^3/uL Hgb 7.7 L (12.0-16.0) g/dL Hct 26.0 L (36.0-48.0) % Plt Count 194 (150-450) 10^3/uL BMP 07/13/25 06:37 Sodium 139 Potassium 3.9 Chloride 104 Carbon Dioxide 26.1 BUN 30.0 H Creatinine 0.95 Glucose 229 H Calcium 8.6 Liver Function 07/13/25 Range/Units 06:37 Total Bilirubin 1.5 H (0.2-1.0) mg/dL AST 33 (15-37) U/L ALT 29 (14-59) U/L Alkaline Phosphatase 89 (46-116) U/L Albumin 2.5 L (3.4-5.0) g/dL Urine 07/13/25 Range/Units 00:21 Urine Color Lt. yellow (YELLOW) Urine Clarity Sl cloudy (CLEAR) Urine pH 7.0 (5.0-9.0) Ur Specific Mellen <=1.005 A (1.005-1.025) Urine Protein Negative (NEG/TRACE) mg/dL Urine Glucose (UA) 100 A (NEGATIVE) mg/dL Progress Note: A&P Assessment and Plan (1) Symptomatic anemia: (2) Atrial fibrillation, new onset: (3) Cirrhosis: Plan Severe anemia. Patient has had chronic anemia requiring blood transfusion in the past. She had EGD and colonoscopy in [place] which did not reveal any source of the bleed. Subsequently patient had capsule endoscopy which also did not show any source of the bleed. Patient has been on iron. Stool Hemoccult tested negative in the emergency room department. Blood pressure is stable. I requested iron study which came back positive for severe iron deficiency anemia. Normal folate and B12. I recommend the patient to have at least 2 units of RBC transfusion. I recommended and initiated iron infusion. I suspect that her ongoing anemia is likely caused by iron deficiency without adequate supplementation. I started patient on PPI intravenously in case she has intermittent upper GI bleed KHALIF, likely secondary to hemodynamic shifts while patient taking CHAS inhibitor and dual diuretics. Less likely caused by hepatorenal disease Responded well to volume repletion and RBC transfusion Resumed diuretics Continue to hold lisinopril Liver cirrhosis Patient does not know the etiology of her liver cirrhosis. Nobody told her that before. Patient stated that she was double her size and weight before. She lost a lot of weight. I suspect that her cirrhosis could be related to MONTGOMERY. I ordered hepatitis panel to rule out chronic hepatitis. I recommend patient to follow-up with hepatology. She would need serial screening EGD, screening for liver cancer, screening for portal hypertension and esophageal varices Furthermore she may need to have FibroScan, liver biopsy and other needed workup to figure out the etiology of her cirrhosis. This may include but not limited to viral, autoimmune, infiltrative or neoplastic liver disease Hypertension Hypotension had improved. Resume diuretics. Continue to hold lisinopril Diabetes Accu-Chek with a sliding scale Poor control. Recent A1c was above 11. I started patient on Amaryl 1 mg twice daily. She may need to be on insulin History of A-fib Currently patient is in sinus rhythm. Hemoglobin is stable. Resume Coumadin. Currently in sinus rhythm with a heart rate around 60. Avoid beta-ole or calcium ole at this time Chronic medical conditions not listed above, incidental findings seen on labs and imaging. These would need to be addressed. Could be addressed when time and condition are appropriate. Could be addressed in the outpatient setting by PCP collaboration with other needed outpatient providers.
[2025-07-13] MEDS: ATORVASTATIN CALCIUM 10 MG TABLET PO (09:56)
[2025-07-13] MEDS: SPIRONOLACTONE 25 MG TABLET 50 MG PO (09:56)
[2025-07-13] MEDS: IRON SUCROSE COMPLEX 200 MG in 0.9 % SODIUM CHLORIDE 100 ML 220 MG IV (09:56)
[2025-07-13] MEDS: GLIMEPIRIDE 2 MG TABLET 1 MG PO ×2 (09:56→21:26)
[2025-07-13] MEDS: HYDROXYZINE HCL 25 MG TABLET PO ×3 (10:09→23:05)
[2025-07-13 16:14] LABS: Hematocrit 26.0 % (36.0-48.0); Hemoglobin 8.1 g/dL (12.0-16.0)
[2025-07-13] MEDS: METFORMIN HCL 500 MG TABLET PO (16:39)
[2025-07-13] MEDS: APIXABAN 5 MG TABLET PO (21:26)
[2025-07-14] VITALS (7 sets, daily range): BP systolic 114–116; BP diastolic 58–61; PULSE 59–72; TEMP 36.7–36.8; O2SAT 92–95
[2025-07-14] MEDS: SPIRONOLACTONE 25 MG TABLET 50 MG PO (08:54)
[2025-07-14] MEDS: METFORMIN HCL 500 MG TABLET PO (08:54)
[2025-07-14] MEDS: VENLAFAXINE HCL ER 75 MG CAPSULE PO (08:54)
[2025-07-14] MEDS: IRON SUCROSE COMPLEX 200 MG in 0.9 % SODIUM CHLORIDE 100 ML 220 MG IV (08:54)
[2025-07-14] MEDS: ATORVASTATIN CALCIUM 10 MG TABLET PO (08:54)
[2025-07-14] MEDS: PANTOPRAZOLE SODIUM 40 MG VIAL IV (08:55)
[2025-07-14] MEDS: GLIMEPIRIDE 2 MG TABLET 1 MG PO (08:55)
[2025-07-14] MEDS: FUROSEMIDE 40 MG TABLET PO (08:55)
[2025-07-14] MEDS: APIXABAN 5 MG TABLET PO (08:55)
--- NOTE | 2025-07-14 09:30 | PM.DS1 ---
DS: Providers Provider Date of admission: 07/11/25 18:31 Primary care physician: Harry Valencia MD Consults: 07/11/25 Consult to It Generalist Routine Reason for consult:: Advanced Directives DS: Diagnosis Discharge Diagnosis (1) Symptomatic anemia: (2) Atrial fibrillation, new onset: (3) Cirrhosis: Plan As listed above and others that are not listed DS: Summary Hospital Course Hospital Course: Mrs. Brian is a 69-year-old female who came in with fatigue, loss of energy, shortness of breath and was found to have Severe symptomatic anemia. Hemoglobin 5.6 associated with borderline hypotension suggestive of early hypovolemia shock Patient has had chronic anemia requiring blood transfusion in the past. She had EGD and colonoscopy in [place] which did not reveal any source of the bleed. Subsequently patient had capsule endoscopy which also did not show any source of the bleed. Patient has been on iron. Stool Hemoccult tested negative in the emergency room department. I requested iron study which came back positive for severe iron deficiency anemia. Normal folate and B12. Patient had received 2 units of RBC transfusion. Iron study came back positive for severe iron deficiency. Patient had received iron infusion daily 200 mg. Patient will be arranged to have an outpatient iron infusion over the next 2 to 3 weeks. I started patient on PPI intravenously in case she has intermittent upper GI bleed Patient will resume taking PPI orally as previously done prior to this admission Patient has a follow-up appointment with her gastro team in [place] next week. KHALIF, likely secondary to hemodynamic shifts while patient taking CHAS inhibitor and dual diuretics. Less likely caused by hepatorenal disease Hypertension. Responded well to volume repletion and RBC transfusion Resumed diuretics Patient was taking ramipril 10 mg daily which is probably high dose for her. I changed to lisinopril 2.5 mg daily. Resume Lasix at 20 mg daily and Aldactone 25 mg daily. Additional titration may be needed to keep her blood pressure and kidney function within normal range Liver cirrhosis Patient does not know the etiology of her liver cirrhosis. Nobody told her that before. Patient stated that she was double her size and weight before. She lost a lot of weight. I suspect that her cirrhosis could be related to MONTGOMERY. I ordered hepatitis panel to rule out chronic hepatitis. Still pending I recommend patient to follow-up with hepatology. She would need serial screening EGD, screening for liver cancer, screening for portal hypertension and esophageal varices Furthermore she may need to have FibroScan, liver biopsy and other needed workup to figure out the etiology of her cirrhosis. This may include but not limited to viral, autoimmune, infiltrative or neoplastic liver disease Patient stated that she has a follow-up appointment with her maltster next week. Patient is interested in following up with gastro at [facility]. We will arrange for that. Hypertension Hypotension had improved. Resumed diuretics Patient was taking ramipril 10 mg daily which is probably high dose for her. I changed to lisinopril 2.5 mg daily. Resume Lasix at 20 mg daily and Aldactone 25 mg daily. Additional titration may be needed to keep her blood pressure and kidney function within normal range Diabetes Accu-Chek with a sliding scale Poor control. Recent A1c was above 11. Repeat A1c is 8.5 Patient is tolerating Amaryl 2 mg daily. Patient will be instructed to do the follow Check your blood sugar 3 times a day before meals. Document these numbers on a blood glucose log and bring them with you to your follow-up appointment with your primary care doctor. Communicate with your primary care doctor or clinical operations specialist if your blood sugar is under 100 or above 300 on 2 consecutive checks. Communicate with your primary care doctor or clinical operations specialist if you have any questions about your diabetes medications. Signs of a low blood sugar include sweating, racing heart, dizziness and/or weakness. Check your blood sugar if you have any of the symptoms. History of A-fib Currently patient is in sinus rhythm. Hemoglobin is stable. Resume Coumadin. Currently in sinus rhythm with a heart rate around 60. Avoid beta-ole or calcium ole at this time Chronic medical conditions not listed above, incidental findings seen on labs and imaging. These would need to be addressed. Could be addressed when time and condition are appropriate. Could be addressed in the outpatient setting by PCP collaboration with other needed outpatient providers. Patient has multiple complex medical issues as listed above and others that are not listed. All appear to be stable. I do not have any clear or strong clinical justification to extend inpatient hospitalization. Patient however will require close and frequent monitoring as well as additional work-up, investigation and therapeutic intervention that could take place from this point on post discharge. That is to prevent relapse, decompensation, rehospitalization and other medical implications. I instructed patient to ask her primary care doctor to obtain [facility] record entirely to address abnormalities seen on labs and imaging that I have and have not addressed during this hospitalization, follow-up on pending blood work, imaging and pathology is if available and to follow-up on needed medical care in the outpatient setting. Time Spent with Patient Time attestation: Total time spent providing and/or coordinating discharge services: Time spent: greater than 30 minutes Exam Narrative Exam Narrative: Pale skin and buccal mucosa. Chest is clear, heart is regular. Abdomen soft, nontender. Mild ascites. Lower extremities no edema. Constitutional Vital Signs, click to edit/add: Last Vital Signs Temp 98.0 F 07/14/25 07:19 Pulse 72 07/14/25 08:00 Resp 18 07/14/25 07:19 BP 114/58 07/14/25 07:19 Pulse Ox 95 07/14/25 07:19 O2 Del Method Room Air 07/14/25 07:19 DS: Data Data Completed and Pending Labs on day of discharge: Labs from last 24 hours 07/14/25 07/13/25 07/13/25 07:53 21:34 16:34 Hgb Hct Estimat Average Glucose Hemoglobin A1c POC Glucose 141 H 159 H 153 H 07/13/25 07/13/25 07/13/25 16:07 11:42 06:37 Hgb 8.1 L Hct 26.0 L Estimat Average Glucose 203 Hemoglobin A1c 8.7 H POC Glucose 355 H Discharge Plan Discharge Disposition: Home, Self-Care Condition: Good Discharge Medications: New glimepiride 2 mg Tablet 2 mg PO DAILY Qty: 30 2RF Rx Instructions: Do not take if your blood sugar is less than 120 lisinopril 2.5 mg tablet 2.5 mg PO DAILY Qty: 30 2RF ferrous sulfate 324 mg (65 mg iron) tablet,delayed release (DR/EC) 324 mg PO BID Qty: 120 1RF Continued metformin 500 mg tablet 1,000 mg PO BID simvastatin 20 mg tablet 20 mg PO DAILY venlafaxine 75 mg capsule,extended release 24hr 75 mg PO DAILY magnesium oxide 400 mg (241.3 mg magnesium) Tablet 400 mg PO BID Qty: 60 11RF Eliquis 5 mg Tablet 5 mg PO BID Qty: 60 11RF pantoprazole [Protonix] 40 mg tablet,delayed release (DR/EC) 40 mg PO BID Qty: 60 11RF Changed furosemide [Lasix] 40 mg tablet 20 mg PO DAILY Qty: 30 11RF spironolactone 50 mg tablet 25 mg PO DAILY Qty: 0 0RF Discontinued ramipril 10 mg capsule 10 mg PO DAILY sucralfate 1 gram tablet 1 g PO ACHS Qty: 120 11RF Print Language: Chilean Activity Restrictions/Additional Instructions: I may not have addressed or treated all of your medical illnesses or the abnormal blood work or imaging studies during this hospitalization. Please ask your primary care provider to obtain [facility] records entirely to follow up on all of the abnormal physical, laboratory, and imaging findings that I have not addressed. Please return back to the emergency room or seek medical attention if your symptoms worsen or return. Please follow-up with GI Gastro ( your stomach, colon and liver specialist ) in [place] Please follow-up with your hematology ( blood specialist ) in [place] I ordered viral hepatitis panel which is still pending. Please ask your primary care doctor to review pending report. [place] team will call you tomorrow to set you up to have an outpatient iron infusion. Please follow the new medication regimen faithfully. Check your blood sugar 3 times a day before meals. Document these numbers on a blood glucose log and bring them with you to your follow-up appointment with your primary care doctor. Communicate with your primary care doctor or clinical operations specialist if your blood sugar is under 100 or above 300 on 2 consecutive checks. Communicate with your primary care doctor or clinical operations specialist if you have any questions about your diabetes medications. Signs of a low blood sugar include sweating, racing heart, dizziness and/or weakness. Check your blood sugar if you have any of the symptoms. Discharging you from [facility] does not mean that your medical care ends here and now. You may still need additional monitoring, work up, investigation, and treatment plan to be handled from this point on by out patient providers including your primary care provider and specialists. For any medication question, please contact your retail pharmacist or your primary care provider. Thank you. Forms: Portal Instructions Referrals: Harry Valencia MD [Primary Care Provider, Family Practice]
--- NOTE | 2025-07-15 10:11 | CM.NOTE ---
Urine culture given to Dr. Hoang, [facility]. Pt also scheduled for IV venofer as CHAS patient Tues/Fri for 2 weeks total of 4 treatments.
--- NOTE | 2025-07-15 10:41 | PC.NURSE ---
Follow up appt. with Dr. Valencia on 07/18 @ 10am [phone] Follow up appt. with Dr. Craig () on 07/30 @ 2:30 New patient appt. with Dr. Sosa () on 09/18 @ 1:30 Follow up appt. with Dr. Gomez () on 10/16 @ 1:30 Dr. Victor's office (oncology) will be calling the patient to schedule a new patient appt.
--- NOTE | 2025-07-15 11:32 | CM.NOTE ---
Faxed outpatient order for IV Venfoer to central scheduling and called to verify order received. Central scheduling will call pt will date and time for appointment. Pharmacy also provided with a copy of order.
--- NOTE | 2025-07-15 12:16 | CM.NOTE ---
Call received from Centralized scheduling Venofer is not approved by Medicare. Notified Dr. Hoang and medication changed to injectafer and resent to central scheduling (received and they will call pt to schedule).
--- NOTE | 2025-07-15 16:02 | SWNOTE1 ---
SW spoke to pt and pt's friend on the phone. SW did review follow ups with patient. Pt did let SW know that the master tax advisor did schedule a follow with Dr. Craig on this . SW to check on this and will call patient back. SW also voiced she has 2 follow ups with different Gastro doctors. SW to get confirmation on this as well and will call her back. SW advised pt and friend that centralized scheduling will call her to schedule her injections either this evening or tomorrow morning. SW advised if she does not receive a call to call hospital and ask for SW or case management. She voiced understanding.
--- NOTE | 2025-07-15 16:07 | CM.DCFOLLOWU ---
Person spoke with: patient and friend How are you feeling? well How is your pain?none Did you understand your discharge instructions?yes Do you have any questions about your discharge instructions?no Were you given any prescriptions at discharge?yes Were you able to get your prescriptions filled?yes Do you understand how to take your medications as ordered?yes Do you have any questions about your follow up appointment and do you plan to keep your follow up appointment? see note Is there anything else that you would like to discuss?no Questions/Comments/Concerns/Other:none
--- NOTE | 2025-07-15 16:07 | SWNOTE1 ---
SW also advised pt that another oral antibiotic was called in to pharmacy as well.
--- NOTE | 2025-07-16 10:11 | CM.NOTE ---
Called Shirley regarding new antibiotic being called in to [facility] d/t cipro being resistant to bacteria. Instructed pt to discontinue cipro and start new antibiotic. Discussed also pt preference for oncology, pt requests to see Dr. Victor, message Dr. Valencia for referral to be sent to Dr. Soila Victor. Claified other appointments, pt requesting to see [facility] and pt will cancel other appointment.
== END 2025-07-14 10:37 | disposition home or self-care (01) | DRG 812 ==
LOC: ER 17:36 → MS 18:35
PROVIDERS: Nurse Practitioner Family; Admitting Provider Internal Medicine; Emergency Provider Emergency Medicine; PCP Family Medicine; Visit Provider Internal Medicine
DX: D50.9 Iron deficiency anemia, unspecified (principal); N17.9 Acute kidney failure, unspecified; N39.0 Urinary tract infection, site not specified; K74.60 Unspecified cirrhosis of liver; I10 Essential (primary) hypertension; E11.9 Type 2 diabetes mellitus without complications; Z79.01 Long term (current) use of anticoagulants; Z79.84 Long term (current) use of oral hypoglycemic drugs; E78.5 Hyperlipidemia, unspecified; G47.30 Sleep apnea, unspecified; Z85.41 Personal history of malignant neoplasm of cervix uteri; Z90.49 Acquired absence of other specified parts of digestive tract; Z90.710 Acquired absence of both cervix and uterus; Z79.899 Other long term (current) drug therapy; I48.91 Unspecified atrial fibrillation
CPT/HCPCS: 36415; 36430; 80053; 80074; 81001; 82607; 82728; 82746; 82948; 83036; 83540; 83550; 83735; 84100; 84466; 85014; 85018; 85025; 85027; 85610; 85730; 86850; 86880; 86885; 86900; 86901; 87086; 87088; 87186; 93005; 99285; G0328; J1756; P9016

== ENCOUNTER 2025-07-17 10:53 | Outpatient (RCR) | payer MEDICARE, SELFPAY ==
[2025-07-17 10:54] VITALS: BP 125/68; PULSE 67; TEMP 36.5; O2SAT 98
[2025-07-17] MEDS: FERRIC CARBOXYMALTOSE 750 MG in 0.9 % SODIUM CHLORIDE 250 ML 795 MG IV (11:10)
== END 2025-07-21 23:59 | disposition home or self-care (01) ==
LOC: INF 10:53
PROVIDERS: PCP Family Medicine; Visit Provider Internal Medicine
DX: D64.9 Anemia, unspecified (principal)
CPT/HCPCS: 96365; J1439

== ENCOUNTER 2025-08-01 11:26 | Outpatient (RCR) | payer MEDICARE, SELFPAY ==
[2025-07-24] MEDS: FERRIC CARBOXYMALTOSE 750 MG in 0.9 % SODIUM CHLORIDE 250 ML 795 MG IV (11:13)
[2025-08-01 11:30] VITALS: BP 168/62; PULSE 64; TEMP 36.6; O2SAT 98
[2025-08-01] MEDS: FERRIC CARBOXYMALTOSE 750 MG in 0.9 % SODIUM CHLORIDE 250 ML 795 MG IV (11:40)
== END 2025-08-20 23:59 | disposition home or self-care (01) ==
LOC: INF 11:26
PROVIDERS: PCP Family Medicine; Visit Provider Family Medicine
DX: D64.9 Anemia, unspecified (principal); D50.9 Iron deficiency anemia, unspecified
CPT/HCPCS: 96365; J1439

== ENCOUNTER 2025-08-07 08:47 | Outpatient (OUT) | payer MEDICARE, SELFPAY ==
--- OUTSIDE RECORDS SUMMARY | 2025-07-30 07:50 | XMS_ITS ---
Author Organization [facility] in [place] Address [address] [place] [address] Care Team Providers Care Shaper Hand Name Role Phone Shaq Valencia Primary Care Provider REASON FOR VISIT Iron Infusion Encounters Encounter Location Date Provider Diagnosis [facility] [address] [place] [address] 07/30/2025 Shaq Valencia Iron deficiency anem ia D50.9 Assessments Encounter Date Diagnosis (ICD Code) Assessment Notes Treatment Notes Treatment Clinical Notes Section Notes 07/30/2025 Iron deficiency anemia (ICD-10 - D50.9) Plan Of Treatment Pending Test Test Name Order Date CBC 07/30/2025 IRON 07/30/2025 Progress Notes * Shirley BRIAN ADOB: [birth year] (69 yo F)Acc No.[id number]:07/30/2025 Patient: Shirley ULRICH :1955 A ge:69 Y S ex:Female Address:[address] [place] [address], [id number] Subjective: * Chief Complaints: * I walt Infusion * Medical History: * Surgical History: * Hospitalization/Major Diagno stic Procedure: * Medications: Objective: * Vitals: * Physical Examination: Assessment: * Assessment: 1. I walt deficiency anemia - D50.9 (Primary) Plan: * Treatment: ?LAB: IRON* 4 weeks * Procedure Codes: * true * Date: Generated for Jamaal deshpande/Denise/Pranay on: 0 08/07/2025 08:53 AM EDT
--- NOTE | 2025-08-07 08:49 | US_ITS ---
The [address] [address] Patient Name: CONNIE WISE MRN: [id number] date: 1955 Sex: F Assigned Patient Location: US Current Patient Location: US Accession/Order Number: [id number] Exam Date: 08/07/2025 08:55 Report Date: 08/07/2025 09:43 At the request of: NON-STAFF PHYSICIAN MD Procedure: US right upper quadrant LIMITED RIGHT UPPER QUADRANT ABDOMINAL ULTRASOUND CLINICAL HISTORY: Anemia D64.9. History of cirrhosis and cholecystectomy COMPARISON: 02/01/2025 The gallbladder is surgically absent. No intrahepatic biliary dilatation is evident. The common duct is mildly prominent measuring 6 - 7 mm. There are no intraluminal filling defects within the segment that is imaged. This may relate to previous surgery. The liver has a nodular contour and coarsened echotexture. No focal intrahepatic masses are seen. There is appropriate hepatopetal flow within the main portal vein. The pancreas shows no significant sonographic abnormality. Evaluation of the right kidney reveals no hydronephrosis or fluid within Painter's pouch. US/US right upper quadrant IMPRESSION: CIRRHOTIC LIVER. NO ACUTE FINDINGS. Impression dictated by: Lola Contreras M.D. 08/07/2025 9:43 AM Dictation Location: [place] [address] Electronically authenticated by: [id number] Y Date: 08/07/2025 09:43
--- OUTSIDE RECORDS SUMMARY | 2025-08-07 08:50 | XMS_ITS | Encounter Summary ---
Author Organization [facility] Address [address] [place] [address] Care Team Providers Care Morning News Producer Name Role Phone Harry Valencia MD Primary Care Provider [phone] Carlso Renee MD Unavailable [phone] Encounter Details Date Type Department Care Team (Late st Contact Info) Description 07/31/2025 Telephone [facility] [address] [place] [address] Payton Foster MA Social History Tobacco Use Types Packs/Day Years Used Date Smoking Tobacco: Never Smokeless Tobacco: Never Alcohol Use Standard Drinks/Week Comments Not Currently 0 (1 standard drink = 0.6 oz pur e alcohol) [facility] Utilities Answer Date Recorded In the past 12 months has Within[employer], gas, oil, or water [facility] threatened to shut off services in your home? No 06/13/2025 Humiliation, Afraid, Rape, and Kick questionnair e Answer Date Recorded Within the last year, have y ou been afraid of your partner or ex-partner? No 06/13/2025 Emotionally Abused Not on file 06/13/2025 Physically Abused Not on file 06/13/2025 Sexually Abused Not on file 06/13/2025 Overall Financial Resource Strain (CARDIA) Answe r Date Recorded How hard is it for you to pa y for the very basics like food, housing, medical care, and heating? Not hard at all 06/13/2025 PHQ-2 Answer Date Recorded Patient Health Questionnaire-2 Score 0 07/18/2025 Transportation Answer Date Recorded In the past 12 months, has l ack of transportation kept you from medical appointments or from getting medications? No 06/13/2025 Lack of Transportation (Non-Medical) Not on file 06/13/2025 Housing Stability Vital Sign Answer Tien e Recorded In the last 12 months, was t here a time when you were not able to pay the mortgage or rent on time? No 06/13/2025 Number of Times Moved in the Last Year Not on fi le 06/13/2025 At any time in the past 12 m [facility], were you homeless or living in a [facility] (including now)? No 06/13/2025 Hunger Vital Sign Answer Date Recorded Within the past 12 months, y ou worried that your food would run out before you got the money to buy more. Never true 06/13/20 25 Ran Out of Food in the Last Year Not on file 06/13/2025 Comments No Sex and Gender Information Value Date Recorded Sex Assigned at Female 06/17/2025 11:34 AM EDT Legal Sex Female 10:55 PM EDT Gender Identity Female 06/17/2025 11:34 AM EDT Sexual Orientation Choose not to disclose 2024 11:35 AM EDT documented as of this encounter Miscellaneous Notes * Telephone Encounter - Payton Foster MA - 07/31/2025 10:02 AM EDT Mine Environmental Engineer faxed lab order to patient's PCP, per the providers request. documented in this encounter Plan of Treatment Upcoming Encounters Date Type Department Care Team (Late st Contact Info) Description 09/10/2025 11:00 AM EDT Office Visit [facility] [address] [place] [address] Katherine Rayo, AGRICULTURAL SERVICE TECHNICIAN [address] [facility] [place] [address] 10/16/2025 1:30 PM EST Follow-Up [facility] [address] [place] [phone] Beni Gomez MD [address] [facility] [address] [facility] [place] [phone] documented as of this encounter Visit Diagnoses Not on filedocumented in this encounter Care Teams Morning News Producer Relationship Specialty Start Date End Date Harry Valencia MD [address] [place] [place] [address] PCP - General 06/20/23 Ud Carlos Orlando MD [address] [place] [address] Consulting Physician Hematology and Oncology 07/18/25 documented as of this encounter
--- OUTSIDE RECORDS SUMMARY | 2025-08-07 08:52 | XMS_ITS | Encounter Summary ---
Author Organization [facility] Address [address] [place] [address] Care Team Providers Care Manager Product Support Name Role Phone Harry Valencia MD Primary Care Provider [phone] Carlos Renee MD Unavailable [phone] Encounter Details Date Type Department Care Team (Late st Contact Info) Description 08/01/2025 Orders Only [facility] [address] [place] [address] [place] [id number] Provider, MD Zuri [address] [place], [place] [id number] Social History Tobacco Use Types Packs/Day Years Used Date Smoking Tobacco: Never Smokeless Tobacco: Never Alcohol Use Standard Drinks/Week Comments Not Currently 0 (1 standard drink = 0.6 oz pur e alcohol) [facility] Utilities Answer Date Recorded In the past 12 months has e [employer], gas, oil, or water [employer] threatened to shut off services in your [...] any time in the past 12 m [facility], were you homeless or living in a residential (including now)? No 06/13/2025 Hunger Vital Sign [...] AM EDT documented as of this encounter Plan of Treatment Upcoming Encounters Date Type Department Care Team (Late st Contact Info) Description 09/10/2025 11:00 AM EDT Office Visit [facility] [address] [place] [address] Katherine Rayo, TELEGRAPH REPEATER INSTALLER [address] [place] [address] 10/16/2025 1:30 PM EST Follow-Up [facility] Gastroenterology [address] [place] [address] Beni Gomez MD [address] [place] [address] documented as of this encounter Procedures Procedure Name Priority Date/Time Associated Diagnosis Comments LIVER FIBROSIS CHRONIC VIRAL HEPATITIS Routine 08/01/2025 8:40 AM EDT documented in this encounter Results * Liver fibrosis chronic viral hepatitis (08/01/2025 8:40 AM EDT) Blood Venous blood specimen / Unknown us Historical Provider LAB BLOOD ORDERABLES Irish l Result documented in this encounter Visit Diagnoses Not on filedocumented in this encounter Care Teams Manager Product Support Relationship Specialty Start Date End Date Harry Valencia MD [address] [facility] [place] [address] PCP - General 06/20/23 Carlos Orlando MD [address] [place] [address] Consulting Physician Hematology and Oncology 07/18/25 documented as of this encounter
--- OUTSIDE RECORDS SUMMARY | 2025-08-07 08:52 | XMS_ITS | Encounter Summary ---
Author Organization [facility] Address [address] [place] [address] Care Team Providers Care Implementation Coordinator Name Role Phone Harry Valencia MD Primary Care Provider [phone] Carlos Renee MD Unavailable [phone] Encounter Details Date Type Department Care Team (Late st Contact Info) Description 08/05/2025 Abstract [facility] Gastroenterology [address] [place] [phone] Aleena Craig, CERTIFIED SURGICAL TECH/FIRST ASSISTANT [address] [place] [address] Social History Tobacco Use Types Packs/Day Years Used Date Smoking Tobacco: Never Smokeless Tobacco: Never Alcohol Use Standard Drinks/Week Comments Not Currently 0 (1 standard drink = 0.6 oz pur e alcohol) [facility] Utilities Answer Date Recorded In the past 12 months has e electric, gas, oil, or water company threatened to shut off services in your [...] any time in the past 12 m [facility], were you homeless or living in a senior care (including now)? No 06/13/2025 Hunger Vital Sign [...] Description 09/10/2025 11:00 AM EDT Office Visit [facility] [address] [place] [address] Katherine Rayo, ESTRADA [address] [place] [address] 10/16/2025 1:30 PM EST Follow-Up [facility] [address] [place] [address] Beni Gomez MD [address] [facility] [place] [phone] documented as of this encounter Visit Diagnoses Not on filedocumented in this encounter Care Teams Implementation Coordinator Relationship Specialty Start Date End Date Harry Valencia MD [address] [place] [address] PCP - General 06/20/23 Ud Carlos Orlando MD [address] [place] [address] Consulting Physician Hematology and Oncology 07/18/25 documented as of this encounter
--- OUTSIDE RECORDS SUMMARY | 2025-08-07 08:53 | XMS_ITS ---
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 Past Treatment and Therapy Plans No past plan information found. 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
--- OUTSIDE RECORDS SUMMARY | 2025-08-07 08:53 | XMS_ITS | CCD ---
Author Organization [facility] Care Team Providers Care Art Instructor Name Role Phone Soco Hernandez Unavailable CoxAshley mcgee Unavailable DR MARYJANE REYNOLDS Consulting Unavailable CONCHITAY, DR WESLEY Primary Care Unavailable CONCHITAY, DR WESLEY Admitting Unavailable GAIL, DR WESLEY Attending Unavailable AGIL, DR WESLEY Consulting Unavailable GAIL, DR WESLEY Primary Care Unavailable GAIL, DR WESLEY Admitting Unavailable CONCHITAY, DR WESLEY Attending Unavailable HOY, DR WESLEY Consulting Unavailable GAIL, DR WESLEY Primary Care Unavailable GAIL, DR WESLEY Admitting Unavailable GAIL, DR WESLEY Attending Unavailable CHE, DR LON Lemus Consulting Unavailable Maryjane Reynolds Primary Care Physician [phone] Manoj ABRAMS Attending Unavailable Maryjane Reynolds Referring Unavailable Manoj ABRAMS Attending Unavailable Manoj ABRAMS Attending Unavailable Howard Johnston DO Attending Provider Lon Del Rosario MD Attending Provider Maryjane Reynolds MD Attending Provider [phone] Joan Hoang MD Attending Provider [phone] Maryjane Reynolds Admitting Unavailable Maryjane Reynolds Attending Unavailable Joan Hoang Admitting Unavailable Joan Hoang Attending Unavailable Manoj Abrams Admitting Unavailable Manoj Abrams Attending Unavailable Howard Johnston Admitting Unavailable Howard Johnston Attending Unavailable Lon Del Rosario Admitting Unavailable Lon Del Rosario Attending Unavailable DAMIAN GOMEZ Referring Unavailable MARYJANE REYNOLDS Primary Care Unavailable MARYJANE REYNOLDS Referring Unavailable HOY, MARYJANE M Primary Care Unavailable NAWRAS, ALI T Admitting Unavailable NAWRAS, ALI T Attending Unavailable NAWRAS, ALI T Referring Unavailable GAIL, MARYJANE M Primary Care Unavailable ENIX, ANGELICA D Referring Unavailable GAIL, MARYJANE M Primary Care Unavailable JOSE G, ROGERS Referring Unavailable JOSE G, ROGERS Attending Unavailable SODEMAN, DAMIAN Attending Unavailable SODEMAN, DAMIAN Attending Unavailable ALEXISAYDIN Referring Unavailable JOSE G, ROGERS Attending Unavailable JOSE G, ROGERS Admitting Unavailable JOSE G, ROGERS Attending Unavailable JOSE G, ROGERS Attending Unavailable JOSE G, ROGERS Referring Unavailable JOSE G, ROGERS Admitting Unavailable NAWRAS, JESUS Admitting Unavailable NAWRAS, JESUS Attending Unavailable NAWRAS, JESUS Referring Unavailable JOSE G, ROGERS Attending Unavailable NAWRAS, JESUS Referring Unavailable STEFANIAJANA Attending Unavailable ENIX, ANGELICA Attending Unavailable JOSE G, ROGERS Referring Unavailable JOSE G, ROGERS Referring Unavailable JOSE G, ROGERS Referring Unavailable NAWRAS, JESUS Referring Unavailable LAYJESSICA Attending Unavailable JOSE G, ROGERS Referring Unavailable JOSE G, ROGERS Referring Unavailable JOSE G, ROGERS Referring Unavailable JOSE G, ROGERS Referring Unavailable JOSE G, ROGERS Referring Unavailable ЕКАТЕРИНАIALN Referring Unavailable ALEXIS, AYDIN Attending Unavailable UD DINJOSHUA Attending Unavailable JOSE G, ROGERS Referring Unavailable JOSE G, ROGERS Referring Unavailable Allergies Allergy Classification Reported Allergen(s) Allergy Type Date of Onset Reaction(s) Facility (4 sources) Sulfacetamide Drug Allergy 2 [facility] (1 source) Sulfonamides (Antibiotic) Drug allergy (disorder) 8 [facility] Rep[facility] (3 sources) Sulfonamides (Antibiotic); Translations: [sulfa drugs] Drug allergy Weal (disorder) [facility] (6 sources) Sulfonamides (Antibiotic); Translations: [Sulfa (Sulfonamide Antibiotics)] Allergy to substance 9 [facility] (1 source) Sulfacetamide Drug Allergy 2 [facility] Repository Medications Current Medications Medication Drug Class(es) Dates Sig (Normalized) Sig (Original) [id number] 200 actuat albuterol 0.09 mg/actuat metered dose inhaler (1 source) beta2-Adrenergic Agonist Start: 02-16-2022 take 2 puff(s) by inhalation every four to six hours as needed Albuterol Sulfate HFA 108 (90 Base) MCG/ACT 2 puffs as needed Inhalation every 4-6 hours for 14 days Jan, Active amiodarone hydrochloride 200 mg oral tablet (3 sources) Antiarrhythmic Start: 02-12-2025 take 1 tablet by mouth once daily apixaban 5 mg oral tablet (5 sources) Factor Xa Inhibitor Start: 02-12-2025 take 1 tablet by mouth twice daily Start: 09-28-2024 take 1 tablet by abelino th twice daily Eliquis 5 mg oral tablet 5 mg = 1 tab(s), Oral, BID, Refills(s) 0 Start Date: 09/28/24 Status: Ordered Aspir-81 (2 sources) Aspir-81 Active bumetanide 1 mg oral tablet (3 sources) Loop Diuretic Start: 02-13-20 take 1 tablet by mouth once daily dextromethorphan hydrobromide 1.5 mg/ml / pyrilamine maleate 1.5 mg/ml oral solution (1 source) Uncompetitive Q-kodjfs-H-aspartate Receptor Antagonist, Sigma-1 Agonist Start: 02-17-20 take 10 mL by mouth every eight hours Troy DM 7.5-7.5 MG/5ML 10 mL Orally every 8 hours for 5 days Jan, Active Diclofenac 75mg Tab-DR (2 sources) Start: 04-28-20 take 1 tablet by mouth twice daily Diclofenac 75mg Tab-DR 75 mg, Oral, BID, Refills(s) 0 Start Date: 04/28/20 Status: Ordered digoxin 0.25 mg oral tablet (3 sources) Cardiac Glycoside Start: 02-13-20 take 1 tablet by mouth once daily fluticasone propionate 0.05 mg/actuat metered dose nasal spray (1 source) Corticosteroid Start: 02-17-20 take 1 spray(s) nasal route once daily Flonase Allergy Relief 50 MCG/ACT 1 spray in each nostril Nasally Once a day for 14 day(s) Jan, Active furosemide 20 mg oral tablet (3 sources) Loop Diuretic Start: 02-13-20 take 1 tablet by mouth once daily magnesium oxide 400 mg oral tablet (5 sources) Start: 02-13-20 take 1 tablet by mouth once daily Start: 09-28-2024 take 1 tablet by abelino twice daily magnesium oxide 400 mg Tab 400 mg = 1 tab(s), Oral, BID, Refills(s) 0 Start Date: 09/28/24 Status: Ordered metFORMIN hydrochloride 500 mg oral tablet (8 sources) Biguanide Start: 02-12-2025 take 1 tablet by abelino twice daily Start: 04-28-2020 take [address] [facility] twice daily metformin 500 mg Tab 1,000 [...] Ordered ondansetron 4 mg disintegrating oral tablet (4 sources) Serotonin-3 Receptor Antagonist Start: 02-12-2025 Start: 02-16-2022 take 1 tablet by abelino every eight hours as needed Ondansetron HCl 4 MG 1 tablet Orally every 8 hours as needed for 3 days Jan, Active Ozempic (1 source) Ozempic Active pantoprazole 40 mg delayed release oral tablet (5 sources) Proton Pump Inhibitor Start: 02-12-2025 Start: 09-28-2024 take 1 tablet by abelino once daily Pantoprazole [address] Tab 40 mg = 1 tab(s), Oral, Daily, Refills(s) 0 Start Date: 09/28/24 Status: Ordered pioglitazone 30 mg oral tablet (2 sources) Peroxisome Proliferator Receptor alpha Agonist, Peroxisome Proliferator Receptor gamma Agonist, Thiazolidinedione Actos 30 MG Orally Active ramipril 10 mg oral capsule (7 sources) Angiotensin Converting Enzyme Inhibitor Start: take 1 capsule by mouth once daily Start: 04-28-2020 take [address] [facility] once daily ramipril 10 mg Cap 10 mg = 1 cap(s), Oral, Daily, Refills(s) 0 Start Date: 04/28/20 Status: Ordered simvastatin 20 mg oral tablet (6 sources) HMG-CoA Reductase Inhibitor Start: 02-12-2025 take 1 tablet by mouth once daily Start: 04-28-2020 take 1 tablet by abelino th once daily at bedtime simvastatin 20 mg Tab 20 mg = 1 tab(s), Oral, Once a day (at bedtime), Refills(s) 0 Start Date: 04/28/20 Status: Ordered Simvastatin Acti ve tiZANidine 4 mg oral tablet (7 sources) Central alpha-2 Adrenergic Agonist Start: 02-12-2025 take 1 tablet by mouth once daily at bedtime Start: 09-28-2024 take 1 tablet by abelino th every eight hours as needed for muscle spasms Zanaflex 4 mg Tab 4 mg = 1 tab(s), Oral, q8hr, PRN muscle spasm, Refills(s) 0 Start Date: 09/28/24 Status: Ordered Zanaflex 4 MG Or ally Active venlafaxine 75 mg oral tablet (7 sources) Serotonin and Norepinephrine Reuptake Inhibitor Start: 02-12-2025 take 1 tablet by mouth once daily Start: 04-28-2020 take 1 capsule by [facility] once daily venlafaxine 75 mg Cap-ER 75 mg = 1 cap(s), Oral, Daily, Refills(s) 0 Start Date: 04/28/20 Status: Ordered Vitamin D-3 1000 UNIT (2 sources) Vitamin D-3 1000 UNIT Orally Active Completed/Discontinued Medications Medication Drug Class(es) Dates Sig (Normalized) Sig (Original) Acetaminophen / HYDROcodone (2 sources) Opioid Agonist Start: 07-09-2015 take 1 tablet by mouth every six hours as needed for pain Bostic 5-325 MG 1 tablet Orally every 6 hrs as needed for pain Jun, Not-Taking Start: 07-09-2015 take 1 tablet by abelino th every six hours as needed for pain Bostic 5-325 MG 1 tablet Orally every 6 [...] Date Documented Da te Episodic/Chronic Anxiety disorders (3 sources) Anxiety; Translations: [Anxiety disorder, unspecified] 02-12-2025 Chronic Cancer of uterus (5 sources) Endometrial carcinoma; Translations: [Malignant neoplasm of uterus] 04-28-2020 Chronic Cancer of uterus (2 sources) Personal history of malignant neoplasm of other parts of uterus; Translations: [Personal history of malignant neoplasm of other parts of uterus] Onset: 07-18-2025 Episodic Cardiac and circulatory congenital anomalies (2 sources) Arteriovenous malformation, site unspecified; Translations: [Arteriovenous malformation, site unspecified] Onset: 05-28-2025 Chronic Cardiac dysrhythmias (9 sources) Atrial fibrillation; Translations: [Unspecified atrial fibrillation] Onset: 07-10-2024 09-28-2024 Chronic Chronic kidney disease (3 sources) Chronic kidney disease, unspecified; Translations: [Chronic kidney disease] Onset: 09-30-2022 04-28-2020 Chronic Deficiency and other anemia (2 sources) Iron deficiency anemia secondary to blood loss (chronic); Translations: [Iron deficiency anemia secondary to blood loss (chronic)] Onset: 11-08-2023 Chronic Deficiency and other anemia (4 sources) Anemia, unspecified; Translations: [ANEMIA UNSPECIFIED] Onset: 09-30-2022 Episodic Deficiency and other anemia (1 source) Deficiency and other anemia Onset: 04-25-2025 Diabetes mellitus with complications (4 sources) Type 2 diabetes mellitus with hyperglycemia; Translations: [TYPE 2 DM W/HYPERGLYCEMIA] Onset: 09-24-2022 Chronic Diabetes mellitus without complication (5 sources) Diabetes mellitus; Translations: [Type 2 diabetes mellitus without complications] 04-28-2020 Chronic Disorders of lipid metabolism (6 sources) Pure hypercholesterolemia , unspecified; Translations: [Hyperlipidemia, unspecified] Onset: 09-30-2022 09-28-2024 Chronic Diverticulosis and diverticulitis (2 sources) Diverticular disease 04-28-2020 Chronic Essential hypertension (6 sources) Essential (primary) hypertension; Translations: [Benign essential hypertension] Onset: 09-30-2022 04-28-2020 Chronic Gastrointestinal hemorrhage (6 sources) Melena; Translations: [Melena] Onset: 10-03-2024 Episodic Heart valve disorders (2 sources) Mitral and aortic incompetence 09-28-2024 Chronic Malaise and fatigue (2 sources) Other fatigue; Translations: [Other fatigue] Onset: 07-18-2025 Episodic Nutritional deficiencies (1 source) Vitamin D deficiency, unspecified; Translations: [VITAMIN D DEFICIENCY UNSPECIFIED] Onset: 09-30-2022 Chronic Open wounds of extremities (2 sources) Laceration without foreign body, left lower leg, initial encounter; Translations: [Open wound of knee, leg [except thigh], and ankle, without mention of complication] 02-12-2025 Episodic Other and ill-defined heart disease (2 sources) Left ventricular hypertrophy 09-28-2024 Chronic Other disorders of stomach and duodenum (2 sources) Angiodysplasia of stomach and duodenum without bleeding; Translations: [Angiodysplasia of stomach and duodenum without bleeding] Onset: 07-18-2025 Episodic Other eye disorders (2 sources) Tear film insufficiency 04-28-2020 Episodic Other gastrointestinal disorders (3 sources) Altered bowel function; Translations: [Change in bowel habit] Onset: 10-03-2024 Episodic Other gastrointestinal disorders (2 sources) H/O: colitis 09-28-2024 Episodic Other gastrointestinal disorders (2 sources) Occult blood in stools 05-09-2020 Episodic Other gastrointestinal disorders (2 sources) Angiodysplasia [...] (2 sources) Obese class III 09-28-2024 Chronic Other screening for suspected conditions (not mental disorders or infectious disease) (9 sources) Encounter for screening mammogram for malignant neoplasm of breast; Translations: [Abnormal results of liver function studies] Onset: 10-12-2021 Episodic Saira-; endo-; and myocarditis; cardiomyopathy (except [...] sources) Palpitations; Translations: [Palpitations] Onset: 10-08-2024 Episodic Deficiency and other anemia (3 sources) Anemia; Translations: [Anemia, unspecified] Onset: 11-08-2023 Episodic Immunizations and screening for infectious disease (2 sources) Encounter for screening for other viral diseases; Translations: [Contact with and (suspected) exposure to other viral communicable diseases] Onset: 10-26-2021 Resolved: 02-16-2022 Episodic Other gastrointestinal disorders (3 sources) Other ascites; Translations: [Other ascites] Onset: 01-23-2025 Episodic Other upper respiratory infections (1 source) [...] Test Name Value Interpretation Reference Range Facility Orders Onlyon 08-01-2025 Orders Only [id number] Connie Brian 1955 F Date Provider Department Center 08/01/2025 [id number], HISTORICAL NHAN [facility] Family History Problem Relation Age of Onset No Known Problems Mother Diabetes Father Uterine cancer Sister Heart disease Brother Breast cancer Maternal Grandmother Stomach cancer Mother's Brother Family Status - Relation Status Age at Mother Father Sister Alive Brother Maternal Grandmother Mother's Brother Other Normal [facility] 36on 07-31-2025 36 Quality Review Trainer faxed lab ord er to patient's PCP, per the providers request. Normal [facility] ALPHA FETOPROTEINon 07-30-20 25 ALPHA FETOPROTEIN 1.7 ng/mL Normal <=9.9 [facility] Comment on above: Performed By: #### C MP, 2157-04, FEPR, 2324-2, TSHR, PINR, 2276-4, 6771-0, 2064-4, 2465-3, 1834-1, 27822-7, 5130-0, AHP #### [facility] ([id number]) [address], [address] [place] [address] BASIC METABOLIC PANELon Anion gap [Moles/Vol] 9 mmol/L Normal 5-15 [facility] Comment on above: Performed By: #### C MP, 6, FEPR, 2324-2, TSHR, PINR, 2276-4, 6771-0, 2064-4, 2465-3, 1834-1, 96127-2, 5130-0, AHP #### [facility] ([id number]) [address], [address] [place] [address] Calcium [Mass/Vol] 8.0 mg/dL Low 8.5-10.5 [facility] Comment on above: Performed By: #### C MP, 6, FEPR, 2324-2, TSHR, PINR, 2276-4, 6771-0, 2064-4, 2465-3, 1834-1, 04107-1, 5130-0, AHP #### [facility] ([id number]) [address], [address] [place] [address] Chloride [Moles/Vol] 115 mmol/L High 98-109 [facility] Comment on above: Performed By: #### C MP, 7-6, FEPR, 2324-2, TSHR, PINR, 2276-4, 6771-0, 2064-4, 2465-3, 1834-1, 33065-2, 5130-0, P #### [facility] ([id number]) [address], [address] [place] [address] CO2 [Moles/Vol] 20 mmol/L Low 22-32 [facility] Comment on above: Performed By: #### C MP, 2156-6, FEPR, 2324-2, TSHR, PINR, 2276-4, 6771-0, 2064-4, 2465-3, 1834-1, 19140-4, 5130-0, P #### [facility] ([id number]) [address], [address] [place] [address] Creatinine [Mass/Vol] 1.46 mg/dL High 0.40-1.00 [facility] Comment on above: Result Comment: METH OD TRACEABLE TO IDMS STANDARD Performed By: #### C MP, 2156-6, FEPR, 2324-2, TSHR, PINR, 2276-4, 6771-0, 2064-4, 2465-3, 1834-1, 76644-8, 5130-0, P #### [facility] ([id number]) [address], [address] [place] [address] GFR/1.73 sq M.predicted among non-blacks MDRD (S/P/Bld) [Vol rate/Area] 39 mL/min/{1.73_m2} Low >=60 [facility] Comment on above: Result Comment: Repo rted eGFR is based on the CKD-EPI 2020 equation that does not use a race coefficient. Performed By: #### C MP, 2157-6, FEPR, 2324-2, TSHR, PINR, 2276-4, 6771-0, 4-4, 2465-3, 1834-1, 38668-0, 5130-0, AHP #### [facility] ([id number]) [address], [address] [place] [address] Glucose [Mass/Vol] 134 mg/dL High 65-99 [facility] Comment on above: Performed By: #### C MP, 2157-6, FEPR, 2324-2, TSHR, PINR, 2276-4, 6771-0, 4-4, 2465-3, 1834-1, 21036-8, 5130-0, P #### [facility] ([id number]) [address], [address] [place] [address] Potassium [Moles/Vol] 5.7 mmol/L High 3.5-5.0 [facility] Comment on above: Performed By: #### C MP, 7-6, FEPR, 2324-2, TSHR, PINR, 2276-4, 6771-0, 4-4, 2465-3, 1834-1, 59141-6, 5130-0, AHP #### [facility] ([id number]) [address], [address] [place] [address] Sodium [Moles/Vol] 144 mmol/L Normal 134-146 [facility] Comment on above: Performed By: #### C MP, 2157-6, FEPR, 2324-2, TSHR, PINR, 2276-4, 6771-0, 4-4, 2465-3, 1834-1, 02469-5, 5130-0, AHP #### [facility] ([id number]) [address], [address] [place] [address] Urea nitrogen [Mass/Vol] 41 mg/dL High 5-27 [facility] Comment on above: Performed By: #### C MP, 2156-6, FEPR, 2324-2, TSHR, PINR, 2276-4, 6771-0, 2064-4, 2465-3, 1834-1, 47083-6, 5130-0, AHP #### [facility] ([id number]) [address], [address] [place] [address] CBC (NO DIFF)on 07-30-2025 Erythrocyte distribution width (RBC) [Ratio] 29.4 % High 11.5-15 [facility] Comment on above: Performed By: #### C MP, 2157-04, FEPR, 2324-2, TSHR, PINR, 2276-4, 6771-0, 2064-4, 2465-3, 1834-1, 52761-3, 5130-0, AHP #### [facility] ([id number]) [address], [address] [place] [address] Hematocrit (Bld) [Volume fraction] 28.3 % Low 35-47 [facility] Comment on above: Performed By: #### C MP, 6, FEPR, 2324-2, TSHR, PINR, 2276-4, 6771-0, 2064-4, 2465-3, 1834-1, 59047-1, 5130-0, AHP #### [facility] ([id number]) [address], [address] [place] [address] Hemoglobin (Bld) [Mass/Vol] 9.0 g/dL Low 11.7-15.5 [facility] Comment on above: Performed By: #### C MP, 2156-6, FEPR, 2324-2, TSHR, PINR, 2276-4, 6771-0, 2064-4, 2465-3, 1834-1, 07947-2, 5130-0, AHP #### [facility] ([id number]) [address], [address] [place] [address] MCH (RBC) [Entitic mass] 27.0 pg Normal 27-34 [facility] Comment on above: Performed By: #### C MP, 2157-04, FEPR, 2324-2, TSHR, PINR, 2276-4, 6771-0, 2064-4, 2465-3, 1834-1, 65867-0, 5130-0, AHP #### [facility] ([id number]) [address], [address] [place] [address] MCHC (RBC) [Mass/Vol] 31.9 g/dL Low 32-36 [facility] Comment on above: Performed By: #### C MP, 2157-04, FEPR, 2324-2, TSHR, PINR, 2276-4, 6771-0, 2064-4, 2465-3, 1834-1, 12253-2, 5130-0, AHP #### [facility] ([id number]) [address], [address] [place] [address] MCV (RBC) [Entitic vol] 85 fL Normal 80-100 [facility] Comment on above: Performed By: #### C MP, 2157-04, FEPR, 2324-2, TSHR, PINR, 2276-4, 6771-0, 2064-4, 2465-3, 1834-1, 79850-7, 5130-0, AHP #### [facility] ([id number]) [address], [address] [place] [address] Platelet mean volume (Bld) [Entitic vol] 8.0 fL Normal 7-12 [facility] Comment on above: Performed By: #### C MP, 6, FEPR, 2324-2, TSHR, PINR, 2276-4, 6771-0, 2064-4, 2465-3, 1834-1, 34812-7, 5130-0, AHP #### [facility] ([id number]) [address], [address] [place] [address] Platelets (Bld) [#/Vol] 155 10*3/uL Normal 150-450 [facility] Comment on above: Performed By: #### C MP, 2157-6, FEPR, 2324-2, TSHR, PINR, 2276-4, 6771-0, 2064-4, 2465-3, 1834-1, 54346-6, 5130-0, P #### [facility] ([id number]) [address], [address] [place] [address] RBC COUNT 3.34 X10E12/L Low 3.8-5.2 [facility] Comment on above: Performed By: #### C MP, 2157-6, FEPR, 2324-2, TSHR, PINR, 2276-4, 6771-0, 4-4, 2465-3, 1834-1, 04528-6, 5130-0, P #### [facility] ([id number]) [address], [address] [place] [address] WBC (Bld) [#/Vol] 7.2 10*3/uL Normal 4-11 [facility] Comment on above: Performed By: #### C MP, 2157-6, FEPR, 2324-2, TSHR, PINR, 2276-4, 6771-0, 4-4, 2465-3, 1834-1, 14209-0, 5130-0, P #### [facility] ([id number]) [address], [address] [place] [address] FERRITINon 07-30-2025 Ferritin [Mass/Vol] 1126 ng/mL High 11-307 [facility] Comment on above: Performed By: #### C MP, 2157-6, FEPR, 2324-2, TSHR, PINR, 2276-4, 6771-0, 2064-4, 2465-3, 1834-1, 95026-2, 5130-0, [facility] #### [facility] ([id number]) [facility] [place] [address] FIBROTEST-ACTITEST, Son 09-0 ACITEST GRADE A1-A2 Normal [facility] Comment on above: Performed By: #### C MP, 2157-04, FEPR, 2324-2, TSHR, PINR, 6-4, 6771-0, 4-4, 2465-3, 1834-1, 50282-7, 5130-0, [facility] #### [facility] ([id number]) [facility] [place] [address] ACITEST SCORE 0.51 Normal [facility] Comment on above: Performed By: #### C MP, 2157-04, FEPR, 2324-2, TSHR, PINR, 6-4, 71-0, 2063-4, 2465-3, 1834-1, 85174-5, 5130-0, [facility] #### [facility] ([id number]) [facility] [facility] [address], [address] [place] [address] ACTITEST INTERPRETATION minimal activity Normal [facility] Comment on above: Result Comment: Acti Test estimates necroinflammatory activity ActiTest Score Grade Interpretation 0.00-0.17 A0 no activity 0.17-0.29 A0-A1 no activity 0.29-0.36 A1 minimal activity 0.36-0.52 A1-A2 minimal activity 0.52-0.60 A2 significant activity 0.60-0.62 A2-A3 significant activity 0.62-1.00 A3 severe activity Performed By: #### C MP, 2157-04, FEPR, 2324-2, TSHR, PINR, 2276-4, 6771-0, 4-4, 2465-3, 1834-1, 42842-7, 5130-0, AHP #### [facility] ([id number]) [address] [place] [address] ALPHA-2 MACROGLOBULIN, S 313 mg/dL High 100-280 [facility] Comment on above: Performed By: #### C MP, 2157-04, FEPR, 2324-2, TSHR, PINR, 6-4, 6771-0, 4-4, 2465-3, 1834-1, 75289-2, 5130-0, P #### [facility] ([id number]) [address] [place] [address] ALT [Catalytic activity/Vol] 67 U/L High 7-45 [facility] Comment on above: Performed By: #### C MP, 2157-04, FEPR, 2324-2, TSHR, PINR, 6-4, 6771-0, 4-4, 2465-3, 1834-1, 31168-1, 5130-0, P #### [facility] ([id number]) [address] [place] [address] Amylase [Catalytic activity/Vol] 171 U/L High 5-36 [facility] Comment on above: Performed By: #### C MP, 2157-04, FEPR, 2324-2, TSHR, PINR, 6-4, 6771-0, 4-4, 2465-3, 1834-1, 98974-7, 5130-0, AHP #### [facility] ([id number]) [address], [address] [place] [address] APOLIPOPROTEIN A1, S 133 mg/dL Low >=140 [facility] Comment on above: Performed By: #### C MP, 2157-04, FEPR, 2324-2, TSHR, PINR, 6-4, 6771-0, 2064-4, 2465-3, 1834-1, 74805-6, 5130-0, AHP #### [facility] ([id number]) [address], [address] [place] [address] Bilirubin [Mass/Vol] 0.4 mg/dL Normal 0.0-1.2 [facility] Comment on above: Result Comment: Test Performed by: [facility] [address] [place] [address] Saw Sharpener: Neyda Gutierrez Ph.D.; CLIA# [id number] Test Performed by: [facility] [address] [place] [address] Saw Sharpener: Neyda Gutierrez Ph.D.; CLIA# [id number] Performed By: #### C MP, 2157-6, FEPR, 2324-2, TSHR, PINR, 2276-4, 6771-0, 2064-4, 2465-3, 1834-1, 45349-4, 5130-0, AHP #### [facility] ([id number]) [address], [address] [place] [address] BIOPREDICTIVE SERIAL NUMBER [id number] Normal [facility] Comment on above: Performed By: #### C MP, 2157-6, FEPR, 2324-2, TSHR, PINR, 2276-4, 6771-0, 2064-4, 2465-3, 1834-1, 90695-9, 5130-0, AHP #### [facility] ([id number]) [address], [address] [place] [address] FIBROTEST INTERPRETATION advanced fibrosis Normal [facility] Comment on above: Result Comment: Fibr oTest estimates liver fibrosis FibroTest Score Stage Interpretation 0.00-0.21 F0 no fibrosis 0.21-0.27 F0-F1 no fibrosis 0.27-0.31 F1 minimal fibrosis 0.31-0.48 F1-F2 minimal fibrosis 0.48-0.58 F2 moderate fibrosis 0.58-0.72 F3 advanced fibrosis 0.72-0.74 F3-F4 advanced fibrosis 0.74-1.00 F4 severe fibrosis (Cirrhosis) Performed By: #### C MP, 2157-6, FEPR, 2324-2, TSHR, PINR, 2276-4, 6771-0, 2064-4, 2465-3, 1834-1, 51736-8, 5130-0, [facility] #### [facility] ([id number]) [address], [address] [place] [address] FIBROTEST SCORE 0.60 [facility] Comment on above: Performed By: #### C MP, 2157-6, FEPR, 2324-2, TSHR, PINR, 2276-4, 6771-0, 2064-4, 2465-3, 1834-1, 87816-2, 5130-0, [facility] #### [facility] ([id number]) [address], [address] [place] [address] FIBROTEST STAGE F3 Normal [facility] Comment on above: Performed By: #### C MP, 2157-6, FEPR, 2324-2, TSHR, PINR, 2276-4, 6771-0, 2064-4, 2465-3, 1834-1, 53031-1, 5130-0, [facility] #### [facility] ([id number]) [address], [address] [place] [address] FIBROTEST-ACTITEST COMMENT SEE COMMENTS Normal [facility] Comment on above: Result Comment: The reliability of results is dependent on compliance with the preanalytical and analytical conditions recommended by [employer]. The tests have to be deferred for: acute hemolysis, acute hepatitis, acute inflammation, extra hepatic cholestasis. The advice of a specialist should be sought for interpretation in chronic hemolysis and Gilbert's syndrome. The test interpretation is not validated in liver transplant patients. Isolated extreme values of one of the components should lead to caution in interpreting the results. In case of discordance between a biopsy result and a test, it is recommended to seek advice of a specialist. The causes of these discordances could be due to a flaw of the test or to a flaw in the biopsy: i.e. a liver biopsy has a 33% variability rate for one fibrosis stage. FibroTest is interpretable for chronic hepatitis B and C, alcoholic and non alcoholic steatosis. ActiTest is interpretable for chronic hepatitis B and C. ADDITIONAL INFORMATION This test was developed and its performance characteristics determined by [facility] in a manner consistent with CLIA requirements. This test has not been cleared or approved by the U.S. Food and Drug Administration. Performed By: #### C MP, 2157-6, FEPR, 2324-2, TSHR, PINR, 2276-4, 6771-0, 2064-4, 2465-3, 1834-1, 18386-9, 5130-0, P #### [facility] ([id number]) [address] [place] [address] HAPTOGLOBIN, S 176 mg/dL Normal 30-200 [facility] Comment on above: Performed By: #### C MP, 2157-6, FEPR, 2324-2, TSHR, PINR, 2276-4, 6771-0, 2064-4, 2465-3, 1834-1, 81836-9, 5130-0, [facility] #### [facility] ([id number]) [address], [address] [place] [address] Follow-Upon 07-30-2025 Follow-Up [id number] Connie Brian 1955 F Date Provider Department Center 07/30/202553009-BFJOANGELICA GONSALEZ [facility] Family History Problem Relation Age of Onset No Known Problems Mother Diabetes Father Uterine cancer Sister Heart disease Brother Breast cancer Maternal Grandmother Stomach cancer Mother's Brother Family Status - Relation Status Age at Mother Father Sister Alive Brother Maternal Grandmother Mother's Brother Other Level of Service:53929 [place] OFFICE/OUTPATIENT ESTABLISHED HIGH MDM 40 MIN Reason for Visit and Comments: Follow-up [798504] - Diarrhea all weekend long, and Tuesday went to hard stool, and going 15-20 minutes today, formed stool with blood, not sure if Hemorids or not. Normal [facility] IRON AND TIBCon 07-30-2025 Iron [Mass/Vol] 108 ug/dL Normal 50-170 [facility] Comment on above: Performed By: #### C MP, 2157-6, FEPR, 2324-2, TSHR, PINR, 2276-4, 6771-0, 2064-4, 2465-3, 1834-1, 67094-2, 5130-0, AHP #### [facility] ([id number]) [address], [address] [place] [address] IRON BINDING 336 ug/dL Normal 250-425 [facility] Comment on above: Performed By: #### C MP, 2157-6, FEPR, 2324-2, TSHR, PINR, 2276-4, 6771-0, 2064-4, 2465-3, 1834-1, 32690-5, 5130-0, AHP #### [facility] ([id number]) [address], [address] [place] [address] IRON SATURATION 32 % SATURATION Normal 15-50 [facility] Comment on above: Performed By: #### C MP, 2157-6, FEPR, 2324-2, TSHR, PINR, 2276-4, 6771-0, 2064-4, 2465-3, 1834-1, 77001-3, 5130-0, AHP #### [facility] ([id number]) [address], [address] [place] [address] Transferrin [Mass/Vol] 240 mg/dL Normal 168-336 [facility] Comment on above: Performed By: #### C MP, 2156-6, FEPR, 2324-2, TSHR, PINR, 2276-4, 6771-0, 2064-4, 2465-3, 1834-1, 16056-9, 5130-0, AHP #### [facility] ([id number]) [address], [address] [place] [address] LIVER PANELon 07-30-2025 Albumin [Mass/Vol] 3.6 g/dL Normal 3.2-5.3 [facility] Comment on above: Performed By: #### C MP, 2156-6, FEPR, 2324-2, TSHR, PINR, 2276-4, 6771-0, 4-4, 2465-3, 1834-1, 78788-6, 5130-0, AHP #### [facility] ([id number]) [address], [address] [place] [address] ALP [Catalytic activity/Vol] 120 U/L Normal 39-130 [facility] Comment on above: Performed By: #### C MP, 2156-6, FEPR, 2324-2, TSHR, PINR, 2276-4, 6771-0, 4-4, 2465-3, 1834-1, 05646-1, 5130-0, AHP #### [facility] ([id number]) [address], [address] [place] [address] ALT [Catalytic activity/Vol] 57 U/L High <=31 [facility] Comment on above: Performed By: #### C MP, 2156-6, FEPR, 2324-2, TSHR, PINR, 2276-4, 6771-0, 2064-4, 2465-3, 1834-1, 37591-5, 5130-0, AHP #### [facility] ([id number]) [address], [address] [place] [address] AST [Catalytic activity/Vol] 62 U/L High <=41 [facility] Comment on above: Performed By: #### C MP, 2156-, FEPR, 2324-2, TSHR, PINR, 2276-4, 6771-0, 2064-4, 2465-3, 1834-1, 72299-5, 5130-0, AHP #### [facility] ([id number]) [address], [address] [place] [address] Bilirubin [Mass/Vol] 0.5 mg/dL Normal 0.3-1.2 [facility] Comment on above: Performed By: #### C MP, 2157-04, FEPR, 2324-2, TSHR, PINR, 2276-4, 6771-0, 2064-4, 2465-3, 1834-1, 71153-4, 5130-0, AHP #### [facility] ([id number]) [address], [address] [place] [address] Bilirubin.indirect [Mass/Vol] 0.1 mg/dL Normal <=0.4 [facility] Comment on above: Performed By: #### C MP, 2157-04, FEPR, 2324-2, TSHR, PINR, 2276-4, 6771-0, 2064-4, 2465-3, 1834-1, 80487-4, 5130-0, AHP #### [facility] ([id number]) [address], [address] [place] [address] Protein [Mass/Vol] 6.1 g/dL Normal 6.0-8.0 [facility] Comment on above: Performed By: #### C MP, 6, FEPR, 2324-2, TSHR, PINR, 2276-4, 6771-0, 2064-4, 2465-3, 1834-1, 90861-2, 5130-0, AHP #### [facility] ([id number]) [address], [address] [place] [address] MAGNESIUMon 07-30-2025 Magnesium [Mass/Vol] 2.2 mg/dL Normal 1.8-2.6 [facility] Comment on above: Performed By: #### C MP, 2156-6, FEPR, 2324-2, TSHR, PINR, 2276-4, 6771-0, 4-4, 2465-3, 1834-1, 68461-9, 5130-0, AHP #### [facility] ([id number]) [address], [address] [place] [address] PROTIME AND INRon 07-30-2025 INR 1.0 Normal 0.9-1.2 [facility] Comment on above: Performed By: #### C MP, 2156-6, FEPR, 2324-2, TSHR, PINR, 6-4, 6771-0, 4-4, 2465-3, 1834-1, 49190-6, 5130-0, P #### [facility] ([id number]) [address], [address] [place] [address] PT Coag (PPP) [Time] 11.4 s Normal 9.8-13.2 [facility] Comment on above: Performed By: #### C MP, 2156-6, FEPR, 2324-2, TSHR, PINR, 6-4, 6771-0, 4-4, 2465-3, 1834-1, 91527-2, 5130-0, P #### [facility] ([id number]) [address], [address] [place] [address] VITAMIN B12on 07-30-2025 Cobalamin (Vitamin B12) [Mass/Vol] 388 pg/mL Normal 180-914 [facility] Comment on above: Performed By: #### C MP, 2156-6, FEPR, 2324-2, TSHR, PINR, 2276-4, 6771-0, 2064-4, 2465-3, 1834-1, 07130-8, 5130-0, [facility] #### [facility] ([id number]) [address] [place] [address] VITAMIN D 25 HYDROXYon 07-30 VITAMIN D 25 HYD TOT 34.2 ng/mL Normal 30.0-100.0 [facility] Comment on above: Order Comment: Vitam in D status 25 [place] Vitamin D Deficienc y <20 ng/mLInsufficiency 20-29 ng/mLSufficiency 30-100 ng/mLToxicity >100 ng/mLNOTE: A pediatric reference range has not been established by the supervisor shop of this kit. The [employer] recommends a Vitamin D level of = or >20ng/mL in infants and children. Performed By: #### C MP, 2157-6, FEPR, 2324-2, TSHR, PINR, 2276-4, 6771-0, 2064-4, 2465-3, 1834-1, 79891-9, 5130-0, [facility] #### [facility] ([id number]) [address], [address] [place] [address] 3607-18-[address] Reynolds's office called asking if Connie's Eliquis dose could be reduced to 2.5mg bid due to recent admission for anemia. This is ok per Dr. Catalan. Deena at Dr. Reynolds's office made aware. Normal [facility] 36on 07-15-2025 36 Regarding lab result s from 07/11/2025: Jana Rayo, ESTRADA Naylor MA Results received yesterday and advised for pt to go to the ER given critically low hgb of 6.3. Please forward results to PCP and ask pt to follow-up with PCP for further management of iron. She should also see hematology. Thanks! Results faxed to Dr. Reynolds's office. Normal [facility] Urine Cultureon 07-13-2025 Bacteria identified Cx Nom (U) ORGANISM: Escherichia coli (O:ESCCOL) Ciales Count >100,000 Aerobic KAL Charge (NMIC56) --- SUSCEPTIBILITY -- ORGANISM: O:ESCCOL ANTIBIOTIC INTERPRETATION KAL Amikacin S <16 Amoxacillin/K Clavulanate S <8 Ampicillin R >16 Ampicillin/Sulbactam I 1616/8 Aztreonam S <4 Cefazolin S <2 Cefepime [...] RESISTANT TO ALL B-LACTAM DRUGS. PERFORMED BY: [place] [address] PATHOLOGIST HOME PERFORMANCE CONSULTANT MONTRELL RUELAS M.D. Normal [facility] Comment on above: Performed By: #### C UU #### [address] 36on 07-11-2025 36 Per Alessandra ragsdale patient and have her go to the ER due to low hemoglobin. Patient states she is in [place] having lunch and will go to [facility] when she is done. Patient verbalized understanding and agreed with plan of care [facility] Follow-Upon 07-11-2025 Follow-Up [id number] Connie Brian 1955 Date Provider Department Center 07/11/2025 Shannon-JANA RAYO CARD [facility] Family History Problem Relation Age of Onset No Known Problems Mother Diabetes Father No Known Problems Sister Heart disease Brother Family Status - Relation Status Age at Mother Father Sister Alive Brother Level of Service:45776 [place] OFFICE/OUTPATIENT ESTABLISHED MOD MDM 30 MIN Reason for Visit and Comments: Atrial Fibrillation [80] [facility] Orders Onlyon 07-07-2025 Orders Only [id number] Connie Brian 1955 Date Provider Department Center 07/07/2025 325-ROCHELLE RAY HVC CARD [facility] Family History Problem Relation Age of Onset No Known Problems Mother Diabetes Father No Known Problems Sister Heart disease Brother Family Status - Relation Status Age at Mother Father Sister Alive Brother [facility] Telephoneon 06-28-2025 Telephone [id number] Connie Brian 1955 Provider Department Center 06/28/2025 Juan-IZABELA OSMAN C [facility]ASC [facility] Family History Problem Relation Age of Onset No Known Problems Mother Diabetes Father No Known Problems Sister Heart disease Brother Family Status - Relation Status Age at Mother Father Sister Alive Brother Reason for Visit and Comments: f/u post ablation [Other] [facility] 36on 06-17-2025 36 Patient contacted regarding normal VCE results. No indications for reason for anemia. Partner asked why she continues to be anemic. Advised that there is no GI reason for anemia and to consult with PCP for possible Hematology referral for further evaluation. Expressed inderstanding [facility] 30on 06-15-2025 30 The patient is Moderately Stable - Low risk of patient condition declining or worsening The patient's goals for the shift include Comfort and rest The clinical goals for the shift include VSS and safety Normal [facility] 30 The patient is Moderately [...] baseline comfort level Outcome: Progressing Flowsheets (Taken 06/15/2025217) Verbalizes/displays adequate comfort level or baseline comfort [...] and behaviors that affect risk of falls [place] fall precautions as indicated by assessment Educate [...] and prevent overall improvement and discharge Normal [facility] DSon 06-15-2025 DS Admission Admitted 06/13/2025 for Paroxysmal atrial fibrillation (CM* Discharge Diagnosis Atrial fibrillation ([facility] Discharge Disposition Home or Self Care (01) [...] Your Medications These [id number] [address] [place] [phone] furosemide 20 mg tablet magnesium oxide 400 [...] = 4) episode of afib RVR 2023 ([facility]), diabetes, and newly diagnosed liver [...] lethargic ye (more content not included)... Normal [facility] DS Delete, note made in error [facility] POCT GLUCOSE METER UNSOLICIT ED RESULTSon 06-15-2025 Glucose [Mass/Vol] 262 mg/dL High 70-105 [facility] Comment on above: Order Comment: Waive d Testing in the ED is performed under the ED CLIA certificate #[id number]. Result Comment: Sport Ngin com Performed By: #### L [id number] #### [facility] , Glucose [Mass/Vol] 259 mg/dL High 70-105 [facility] Comment on above: Order Comment: Waive d Testing in the ED is performed under the ED CLIA certificate #[id number]. Result Comment: Sport Ngin com Performed By: #### L [id number] #### [facility] , Glucose [Mass/Vol] 237 mg/dL High 70-105 [facility] Comment on above: Order Comment: Waive d Testing in the ED is performed under the ED CLIA certificate #[id number]. Result Comment: [email or web address] [email or web address] Performed By: #### L [id number] #### [facility] (BEAKER) [address] [place] [address] 30on 06-14-2025 30 The patient is Moderately Stable - Low risk of patient condition declining or worsening The patient's goals for the shift include Comfort and rest The clinical goals for the shift include VSS and safety Normal [facility] BILIRUBIN, DIRECTon 06-14-20 25 Magnesium [Mass/Vol] 0.1 mg/dL Normal 0-0.2 [facility] Comment on above: Performed By: #### L [id number] #### [facility] (BEAKER) [address] [place] [address] BILIRUBIN, TOTALon Bilirubin [Mass/Vol] 0.9 mg/dL Normal 0.3-1.0 [facility] Comment on above: Performed By: #### L [id number] #### [facility] (BETRAVIS) [address] [place] [address] CBCon 06-14-2025 Erythrocyte distribution width (RBC) [Ratio] 16.5 % High 11.5-15.0 [facility] Comment on above: Performed By: #### L [id number] #### [facility] , ERYTHROCYTE MEAN CORPUSCULAR HEMOGLOBIN CONCENTRATION (G/DL) BY AUTOMATED 30.4 g/dL Low 32.0-35.0 [facility] Comment on above: Performed By: #### L [id number] #### [facility] , Hematocrit (Bld) [Volume fraction] 24.0 % Low 36.0-45.0 [facility] Comment on above: Performed By: #### L [id number] #### [facility] , Hemoglobin (Bld) [Mass/Vol] 7.3 g/dL Low 12.0-15.0 [facility] Comment on above: Performed By: #### L [id number] #### [facility] , MCH (RBC) [Entitic mass] 23.2 pg Low 27.0-33.0 [facility] Comment on above: Performed By: #### L [id number] #### [facility] , MCV (RBC) [Entitic vol] 76.2 fL Low 82.0-98.0 [facility] Comment on above: Performed By: #### L [id number] #### [facility] , PLATELETS (10*3/UL) IN BLOOD AUTOMATED COUNT 176 10*3/uL Normal 150-400 [facility] Comment on above: Performed By: #### L [id number] #### [facility] , RBC (Bld) [#/Vol] 3.15 10*6/uL Low 3.80-5.00 [facility] Comment on above: Performed By: #### L [id number] #### [facility] , WBC (Bld) [#/Vol] 7.00 10*3/uL Normal 4.00-10.60 [facility] Comment on above: Performed By: #### L [id number] #### [facility] , DSon 06-14-2025 DS Admission Admitted 06/13/2025 for [...] Your Medications These medications were sent to [id number] - [facility] [address] [facility] [address] [facility] [phone] furosemide 20 mg tablet magnesium oxide 400 [...] = 4) episode of afib RVR 2023 ([facility]), diabetes, and newly diagnosed liver [...] Physical Exam (more content not included)... Normal [facility] HEMOGLOBIN AND HEMATOCRIT, B Juan Jose 06-14-2025 Hematocrit (Bld) [Volume fraction] 23.5 % Low 36.0-45.0 [facility] Comment on above: Performed By: #### L [id number] ####[facility] (Jarvam)[address] [place] [address] Hemoglobin (Bld) [Mass/Vol] 7.2 g/dL Low 12.0-15.0 [facility] Comment on above: Performed By: #### L [id number] ####[facility] ([facility])[address] [place] [address] LACTATE DEHYDROGENASEon 05-22 LACTATE DEHYDROGENASE (U/L) IN SER/PLAS BY LAC->PYR RXN 267 U/L Normal 140-271 [facility] Comment on above: Performed By: #### L AB96 ####[facility] ([employer])[address] [place] [address] NURSNOTEon 06-14-2025 NURSNOTE The following events where [...] Liang CNP responded Nurys, this we be senior talent management consultant fellow taking over. Let me see who it is. Normal [facility] POCT GLUCOSE METER UNSOLICIT ED RESULTSon 06-14-2025 Glucose [Mass/Vol] 283 mg/dL High 70-105 [facility] Comment on above: Order Comment: Waive d Testing in the ED is performed under the ED CLIA certificate #[id number]. Result Comment: anjel king3 Performed By: #### L [id number] ####[facility] ([place])[address] [place] [address] Glucose [Mass/Vol] 400 mg/dL High 70-105 [facility] Comment on above: Order Comment: Waive d Testing in the ED is performed under the ED CLIA certificate #[id number]. Result Comment: bals [email or web address] Performed By: #### L [id number] #### [facility] (BEAKER) [address] [place] [address] Glucose [Mass/Vol] 435 mg/dL High 70-105 [facility] Comment on above: Order Comment: Waive d Testing in the ED is performed under the ED CLIA certificate #[id number]. Result Comment: clar com Performed By: #### L [id number] ####[facility] (BEAKER)[address] [place] [address] 30on 06-13-2025 30 The patient is Moderately [...] and behaviors that affect risk of falls [place] fall precautions as indicated by assessment Educate [...] and prevent overall improvement and discharge Normal [facility] 30 The patient is Moderately Stable [...] and maintained or improved Outcome: Progressing Normal [facility] 36on 06-13-2025 36 Emeka from [facility] lab called to report a critical lab for patient. Lab was reported to our RN MIA who will contact patient. Normal [facility] ANTI C3 DATon 06-13-2025 ANTI C3 ERICKA Negative Normal [facility] Comment on above: Performed By: #### L [id number] #### [facility] , ANTI IGG DATon 06-13-2025 ANTI IGG ERICKA Negative Normal [facility] Comment on above: Performed By: #### L [id number] #### [facility] (BEAKER) [address] [place] [address] ANTIBODY IDENTIFICATIONon ANTIBODY IDENTIFICATION K [facility] on above: Performed By: #### L [id number] #### [facility] (BEAKER) [address] [place] [address] Anesthesiaon 06-13-2025 Anesthesia [id number] RocConnie Hannah 1955 F Date Provider Department Center 06/13/2025 DAYO DE C [facility] Family History Problem Relation Age of Onset No Known Problems Mother Diabetes Father No Known Problems Sister Heart disease Brother Family Status - Relation Status Age at Mother Father Sister Alive Brother Normal [facility] BILIRUBIN, DIRECTon 06-13-20 25 Magnesium [Mass/Vol] 0.1 mg/dL Normal 0-0.2 [facility] Comment on above: Performed By: #### L [id number] #### [facility] , BILIRUBIN, TOTALon 5 Bilirubin [Mass/Vol] 0.5 mg/dL Normal 0.3-1.0 [facility] Comment on above: Performed By: #### L [id number] #### [facility] , CBCon 06-13-2025 Erythrocyte distribution width (RBC) [Ratio] 16.4 % High 11.5-15.0 [facility] Comment on above: Performed By: #### L [id number] #### [facility] , ERYTHROCYTE MEAN CORPUSCULAR HEMOGLOBIN CONCENTRATION (G/DL) BY AUTOMATED 29.6 g/dL Low 32.0-35.0 [facility] Comment on above: Performed By: #### L [id number] #### [facility] , Hematocrit (Bld) [Volume fraction] 22.6 % Low 36.0-45.0 [facility] Comment on above: Performed By: #### L [id number] #### [facility] , Hemoglobin (Bld) [Mass/Vol] 6.7 g/dL Low 12.0-15.0 [facility] Comment on above: Performed By: #### L [id number] #### [facility] , MCH (RBC) [Entitic mass] 22.6 pg Low 27.0-33.0 [facility] Comment on above: Performed By: #### L [id number] #### [facility] , MCV (RBC) [Entitic vol] 76.1 fL Low 82.0-98.0 [facility] Comment on above: Performed By: #### L [id number] #### [facility] , PLATELETS (10*3/UL) IN BLOOD AUTOMATED COUNT 167 10*3/uL Normal 150-400 [facility] Comment on above: Performed By: #### L [id number] #### [facility] , RBC (Bld) [#/Vol] 2.97 10*6/uL Low 3.80-5.00 [facility] Comment on above: Performed By: #### L [id number] #### [facility] , WBC (Bld) [#/Vol] 4.65 10*3/uL Normal 4.00-10.60 [facility] Comment on above: Performed By: #### L [id number] #### [facility] , HEMOGLOBINon 06-13-2025 Hemoglobin (Bld) [Mass/Vol] 6.6 g/dL Low 12.0-15.0 [facility] Comment on above: Performed By: #### L [id number] #### [facility] , Hemoglobin (Bld) [Mass/Vol] 5.7 g/dL Invalid Interpretation Code 12.0-15.0 [facility] Comment on above: Performed By: #### L [id number] #### [facility] , Hemoglobin (Bld) [Mass/Vol] 7.7 g/dL Low 12.0-15.0 [facility] Comment on above: Order Comment: Edson mc preprocedure Performed By: #### L [id number] #### [facility] (BEAKER) [address] [place] [address] HIGH SENSITIVITY TROPONIN Io n 06-13-2025 HS TROPONIN I (NG/L) 153 ng/L Critically high <15 [facility] Comment on above: Performed By: #### L [id number] #### [facility] ([place]) [address] [place] [address] on 06-13-2025 [facility] Electrophysiology Consult Note [facility] Clinic Reason for visit: Afib [...] 02/26/25 Patient here for follow up from [facility]. Patient had fluid taken off [...] palpitations. She was recently seen at the [facility] for A-fib RVR as she was admitted for diarrhea and palpitations. She was found to have C. difficile and was treated with antibiotics and converted to sinus rhythm on her own. She states she normally would get palpitations when she drinks caffeine and typically avoids caffeine, the day of her admission she believes she was given caffeinated coffee at [facility] and then began experience palpitations while [...] show any evidence of reversible ischemia. below [id number] at least 4 for age, gender, hypertension, [...] on file Intimate Partner Violence: Unknown (01/12/2024) [place] Safety & Environment Fear of Current or Ex-Partner: Not on file (more content not included)... Normal [facility] LACTATE DEHYDROGENASEon 05-22 LACTATE DEHYDROGENASE (U/L) IN SER/PLAS BY LAC->PYR RXN 137 U/L Low 140-271 [facility] Comment on above: Performed By: #### L AB96 #### [facility] [address] [place] [address] NURSNOTEon 06-13-2025 NURSNOTRandolph RN received verbal sign out from Dr. Thomson [facility] NURSNOTRandolph RN notified Dr. Seng shultz of patient's repeat hemoglobin drawn in pacu resulted at 6.7 No orders received at this time. Normal [facility] NURSNOTE Pt. weighed, used CH G, and changed into gown. Dr. Thomson aware of 316 BG-5 units Humalog ordered. Obtaining PIV access and labs. ECG to be completed as of yet as well. Normal [facility] POCT GLUCOSE METER UNSOLICIT ED RESULTSon 06-13-2025 Glucose [Mass/Vol] 263 mg/dL High 70-105 [facility] Comment on above: Order Comment: Waive d Testing in the ED is performed under the ED CLIA certificate #[id number]. Result Comment: [email or web address] Performed By: #### L [id number] #### [facility] (BEAKER) [address] [place] [address] Glucose [Mass/Vol] 175 mg/dL High 70-105 [facility] Comment on above: Order Comment: Waive d Testing in the ED is performed under the ED CLIA certificate #[id number]. Result Comment: kbar to Performed By: #### L [id number] #### [facility] , Glucose [Mass/Vol] 316 mg/dL High 70-105 [facility] Comment on above: Order Comment: Waive d Testing in the ED is performed under the ED CLIA certificate #[id number]. Result Comment: [email or web address] Performed By: #### L [id number] #### [facility] ([employer]) [address] [place] [address] PROTIME-INRon 06-13-2025 INR IN PPP BY COAGULATION ASSAY 1.20 High 0.90-1.10 [facility] Comment on above: Result Comment: ACCC [...] 1995;108:231S-246S. Performed By: #### L [id number] #### [facility] ([employer]) [address] [place] [address] PROTHROMBIN TIME (PT) IN PPP BY COAGULATION ASSAY 15.2 Seconds High 12.3-14.8 [facility] Comment on above: Performed By: #### L [id number] #### [facility] ([employer]) [address] [place] [address] TYPE AND SCREENon 06-13-2025 AB SCREEN Positive Normal [facility] Comment on above: Performed By: #### L [id number] #### [facility] , ABO group Nom (Bld) O Normal [facility] Comment on above: Performed By: #### L [id number] #### [facility] , RH TYPE IN BLOOD Positive Normal [facility] Comment on above: Performed By: #### L [id number] #### [facility] , Orders Onlyon 06-11-2025 Orders Only [id number] Connie Brian 1955 Date Provider Department Center 06/11/2025 Marcell-STEFANO MENENDEZ [facility] PAC [place] Medical C Family History Problem Relation Age of Onset No Known Problems Mother Diabetes Father No Known Problems Sister Heart disease Brother Family Status - Relation Status Age at Mother Father Sister Alive Brother Normal [facility] Prep for Procedureon 025 Prep for Procedure [id number] Connie Brian 1955 Date Provider Department Center 06/06/20251986-IZABELA OSMAN [facility] [place] HeartVAS Family History Problem Relation Age of Onset No Known Problems Mother Diabetes Father No Known Problems Sister Heart disease Brother Family Status - Relation Status Age at Mother Father Sister Alive Brother Normal [facility] Procedure Visiton 05-28-2025 Procedure Visit [id number] Connie Brian 1955 Provider Department Center 05/28/2025 Enrique-J[facility]ICA [facility] Medical Pavi Family History Problem Relation Age of Onset No Known Problems Mother Diabetes Father No Known Problems Sister Heart disease Brother Family Status - Relation Status Age at Mother Father Sister Alive Brother Level of Service:43485 [place] OFFICE/OUTPT VISIT,PROCEDURE ONLY Normal [facility] Prep for Procedureon 025 Prep for Procedure [id number] Connie Brian 1955 Date Provider Department Center 04/30/2025 IZABELA JOSE C VASC LAB [place] HeartVAS Family History Problem Relation Age of Onset No Known Problems Mother Diabetes Father No Known Problems Sister Heart disease Brother Family Status - Relation Status Age at Mother Father Sister Alive Brother Normal [facility] BEDSIDE GLUCOSEon 04-25-2025 Glucose [Mass/Vol] 213 mg/dL High 65-99 [facility] Comment on above: Performed By: #### C MP, 2157-6, FEPR, 2324-2, TSHR, PINR, 2276-4, 6771-0, 2064-4, 2465-3, 1834-1, 84759-6, 5130-0, AHP #### [facility] ([id number]) [address], [address] [place] [address] Glucose [Mass/Vol] 231 mg/dL High 65-99 [facility] Comment on above: Performed By: #### C MP, 2157-6, FEPR, 2324-2, TSHR, PINR, 2276-4, 6771-0, 2064-4, 2465-3, 1834-1, 39356-7, 5130-0, P #### [facility] ([id number]) [address], [address] [place] [address] Office Visiton 04-23-2025 Follow-up visit [id number] Connie Brian 1955 F Date Provider Department Center 04/23/2025 ROGERS BERNAL DAISY Barakat Family History Problem Relation Age of Onset No Known Problems Mother Diabetes Father No Known Problems Sister Heart disease Brother Family Status - Relation Status Age at Mother Father Sister Alive Brother Level of Service:55043 [place] OFFICE/OUTPATIENT ESTABLISHED LOW MDM 20 MIN Normal [facility] Orders Onlyon 04-22-2025 Orders Only [id number] Connie Brian 1955 F Date Provider Department Center 04/22/2025 [id number], HISTORICAL DAISY Barakat Family History Problem Relation Age of Onset No Known Problems Mother Diabetes Father No Known Problems Sister Heart disease Brother Family Status - Relation Status Age at Mother Father Sister Alive Brother Normal [facility] 36on 04-19-2025 36 Scheduled EGD w/ Push/Cirrhosis/AVM's 04/25/25 @0800, PTH, Dr. Zazueta, PAT ph: 04/24/25 pm, #[id number]. Clinic appt 04/10/25 w/ Patricia and EGD 01/29/25 @ [place] w/ Ki. Called to schedule EGD/Hepatic Cirrhosis. Scheduled 04/24/25 for Cardiac Ablation. We will follow up afterwards re: clearance/blood thinner hold. Normal [facility] Telephoneon 04-19-2025 Telephone [id number] Connie Brian 1955 F Date Provider Department Center 04/19/2025 [id number] SINGLETON [facility] GI [facility] Family History Problem Relation Age of Onset No Known Problems Mother Diabetes Father No Known Problems Sister Heart disease Brother Family Status - Relation Status Age at Mother Father Sister Alive Brother [facility] Orders Onlyon 04-18-2025 Orders Only [id number] RocConnie Young 1955 F Date Provider Department Center 04/18/2025 [id number] LAROSE [facility] PREOP LA Medical C Family History Problem Relation Age of Onset No Known Problems Mother Diabetes Father No Known Problems Sister Heart disease Brother Family Status - Relation Status Age at Mother Father Sister Alive Brother [facility] 37on 04-10-2025 37 Please get blood wor k Schedule EGD I added a new pill called Aldactone to help with ascites. Follow up in 6 months [facility] COMPREHENSIVE METABOLIC PANE Josh 04-10-2025 Albumin [Mass/Vol] 3.6 g/dL Normal 3.2-5.3 [facility] Comment on above: Performed By: #### C MP, 2157-6, FEPR, 2324-2, TSHR, PINR, 2276-4, 6771-0, 2064-4, 2465-3, 1834-1, 46226-8, 5130-0, AHP #### [facility] ([id number]) [address], [address] [place] [address] ALP [Catalytic activity/Vol] 98 U/L Normal 39-130 [facility] Comment on above: Performed By: #### C MP, 2156-6, FEPR, 2324-2, TSHR, PINR, 2276-4, 6771-0, 2064-4, 2465-3, 1834-1, 60994-5, 5130-0, AHP #### [facility] ([id number]) [address], [address] [place] [address] ALT [Catalytic activity/Vol] 13 U/L Normal <=31 [facility] Comment on above: Performed By: #### C MP, 2156-6, FEPR, 2324-2, TSHR, PINR, 2276-4, 6771-0, 4-4, 2465-3, 1834-1, 75825-5, 5130-0, P #### [facility] ([id number]) [address], [address] [place] [address] Anion gap [Moles/Vol] 11 mmol/L Normal 5-15 [facility] Comment on above: Performed By: #### C MP, 2156-6, FEPR, 2324-2, TSHR, PINR, 2276-4, 6771-0, 2064-4, 2465-3, 1834-1, 26846-7, 5130-0, AHP #### [facility] ([id number]) [address], [address] [place] [address] AST [Catalytic activity/Vol] 21 U/L Normal <=41 [facility] Comment on above: Performed By: #### C MP, 2156-6, FEPR, 2324-2, TSHR, PINR, 2276-4, 6771-0, 4-4, 2465-3, 1834-1, 35229-5, 5130-0, AHP #### [facility] ([id number]) [address], [address] [place] [address] Bilirubin [Mass/Vol] 1.4 mg/dL High 0.3-1.2 [facility] Comment on above: Performed By: #### C MP, 2157-04, FEPR, 2324-2, TSHR, PINR, 2276-4, 6771-0, 2064-4, 2465-3, 1834-1, 42891-8, 5130-0, AHP #### [facility] ([id number]) [address], [address] [place] [address] Calcium [Mass/Vol] 9.5 mg/dL Normal 8.5-10.5 [facility] Comment on above: Performed By: #### C MP, 2157-04, FEPR, 2324-2, TSHR, PINR, 2276-4, 6771-0, 2064-4, 2465-3, 1834-1, 96925-6, 5130-0, AHP #### [facility] ([id number]) [address], [address] [place] [address] Chloride [Moles/Vol] 109 mmol/L Normal 98-109 [facility] Comment on above: Performed By: #### C MP, 2157-04, FEPR, 2324-2, TSHR, PINR, 2276-4, 6771-0, 2064-4, 2465-3, 1834-1, 96909-3, 5130-0, AHP #### [facility] ([id number]) [address], [address] [place] [address] CO2 [Moles/Vol] 23 mmol/L Normal 22-32 [facility] Comment on above: Performed By: #### C MP, 2157-04, FEPR, 2324-2, TSHR, PINR, 2276-4, 6771-0, 2064-4, 2465-3, 1834-1, 69626-9, 5130-0, AHP #### [facility] ([id number]) [address], [address] [place] [address] Creatinine [Mass/Vol] 0.69 mg/dL Normal 0.40-1.00 [facility] Comment on above: Result Comment: METH OD TRACEABLE TO IDMS STANDARD Performed By: #### C MP, 2156-6, FEPR, 2324-2, TSHR, PINR, 2276-4, 6771-0, 2064-4, 2465-3, 1834-1, 27606-8, 5130-0, AHP #### [facility] ([id number]) [address], [address] [address] EGFR (CKD-EPI) NON-RACE DEPENDENT >^90 Normal >=60 [facility] Comment on above: Result Comment: Repo rted eGFR is based on the CKD-EPI 2020 equation that does not use a race coefficient. Performed By: #### C MP, 2157-04, FEPR, 2324-2, TSHR, PINR, 2276-4, 6771-0, 2064-4, 2465-3, 1834-1, 82243-3, 5130-0, P #### [facility] ([id number]) [address] [address] Glucose [Mass/Vol] 227 mg/dL High 65-99 [facility] Comment on above: Performed By: #### C MP, 6, FEPR, 2324-2, TSHR, PINR, 2276-4, 6771-0, 2064-4, 2465-3, 1834-1, 59389-7, 5130-0, P #### [facility] ([id number]) [address] [place] [address] Potassium [Moles/Vol] 4.7 mmol/L Normal 3.5-5.0 [facility] Comment on above: Performed By: #### C MP, 6, FEPR, 2324-2, TSHR, PINR, 2276-4, 6771-0, 2064-4, 2465-3, 1834-1, 13785-9, 5130-0, AHP #### [facility] ([id number]) [address] [place] [address], [address] [place] [address] Protein [Mass/Vol] 7.0 g/dL Normal 6.0-8.0 [facility] Comment on above: Performed By: #### C MP, 2156-6, FEPR, 2324-2, TSHR, PINR, 2276-4, 6771-0, 2064-4, 2465-3, 1834-1, 96216-1, 5130-0, AHP #### [facility] ([id number]) [address] [place] [address], [address] [place] [address] Sodium [Moles/Vol] 143 mmol/L Normal 134-146 [facility] Comment on above: Performed By: #### C MP, 2156-6, FEPR, 2324-2, TSHR, PINR, 2276-4, 6771-0, 2064-4, 2465-3, 1834-1, 63250-4, 5130-0, AHP #### [facility] ([id number]) [address] [place] [address], [facility] [address] [place] [address] Urea nitrogen [Mass/Vol] 21 mg/dL Normal 5-27 [facility] Comment on above: Performed By: #### C MP, 2156-6, FEPR, 2324-2, TSHR, PINR, 2276-4, 6771-0, 2064-4, 2465-3, 1834-1, 93583-9, 5130-0, AHP #### [facility] ([id number]) [address] [place] [address], [address] [place] [address] Follow-Upon 04-10-2025 Follow-Up [id number] Connie Brian 1955 F Date Provider Department Center 04/10/2025 DAMIAN CORDOBA UTCF GI UTCF Family History Problem Relation Age of Onset No Known Problems Mother Diabetes Father No Known Problems Sister Heart disease Brother Family Status - Relation Status Age at Mother Father Sister Alive Brother Level of Service:11651 [place] OFFICE/OUTPATIENT ESTABLISHED MOD MDM 30 MIN (GC) Reason for Visit and Comments: Follow-up [[id number]] [facility] PROTIME AND INRon 04-10-2025 INR 1.5 High 0.9-1.2 [facility] Comment on above: Performed By: #### C MP, 2157-6, FEPR, 2324-2, TSHR, PINR, 2276-4, 6771-0, 2064-4, 2465-3, 1834-1, 54568-2, 5130-0, AHP #### [facility] ([id number]) [address], [address] [place] [address] PT Coag (PPP) [Time] 17.4 s High 9.8-13.2 [facility] Comment on above: Performed By: #### C MP, 2157-6, FEPR, 2324-2, TSHR, PINR, 2276-4, 6771-0, 2064-4, 2465-3, 1834-1, 06185-0, 5130-0, AHP #### [facility] ([id number]) [address], [address] [place] [address] Prep for Procedureon 025 Prep for Procedure [id number] Connie Brian 1955 F Date Provider Department Center 03/22/20251986-IZABELA OSMAN [facility]ASC [facility] [place] HeartVAS Family History Problem Relation Age of Onset No Known Problems Mother Diabetes Father No Known Problems Sister Heart disease Brother Family Status - Relation Status Age at Mother Father Sister Alive Brother Normal [facility] Urine Cultureon 03-05-2025 Bacteria identified Cx Nom (U) ORGANISM: Escherichia coli (O:ESCCOL) Ciales Count >100,000 Aerobic KAL Charge (NMIC56) --- [...] RESISTANT TO ALL B-LACTAM DRUGS. PERFORMED BY: [facility] [address] [place] [address] PATHOLOGIST HOME PERFORMANCE CONSULTANT HARRIET CHOWDHURY M.D. Normal [facility] Comment on above: Performed By: #### C UU #### [facility] [address] Office Visiton 02-26-2025 Follow-up visit [id number] Connie Brian 1955 F Date Provider Department Center 02/26/2025 ROGERS BERNAL Family History Problem Relation Age of Onset No Known Problems Mother Diabetes Father No Known Problems Sister Heart disease Brother Family Status - Relation Status Age at Mother Father Sister Alive Brother Level of Service:26182 [place] OFFICE/OUTPATIENT ESTABLISHED MOD MDM 30 MIN Normal [facility] HPon 01-29-2025 HP H&P reviewed. The patient was examined and there are no changes to the H&P. Upper GI bleeding with melena and anemia with history of steatohepatitis. The patient is scheduled to have an upper endoscopy to rule out upper GI bleeding. [facility] NURSNOTEon 01-29-2025 ELHAM RN reviewed discharg e instructions with patient and friend at bedside. No questions or concerns expressed at this time. [facility] NURSNOTE Grounding patch removed skin dry and intact. [facility] NURSNOTE Grounding patch applied to pt right posterior thigh skin dry and intact [facility] POCT GLUCOSE METER UNSOLICIT ED RESULTSon 01-29-2025 Glucose [Mass/Vol] 248 mg/dL High 70-105 [facility] Comment on above: Order Comment: Waive d Testing in the ED is performed under the ED CLIA certificate #[id number]. Result Comment: ltol les Performed By: #### L [id number] #### [facility] (BEAKER) [address] [place] [address] Glucose [Mass/Vol] 276 mg/dL High 70-105 [facility] Comment on above: Order Comment: Waive d Testing in the ED is performed under the ED CLIA certificate #[id number]. Result Comment: ngro radha Performed By: #### L [id number] ####[facility] (AKER)[address] [place] [address] ACUTE HEPATITIS PANELon ANTI HCV W/PCR REFLX Non-Reactive Normal NRCT [facility] Comment on above: Result Comment: NEW TEST METHOD NOTE If recent infection suspected, recommend repeat testing (>2 months). Mpyrah-og-mgxkwg ratio is <1.00. Performed By: #### C MP, 2157-6, FEPR, 2324-2, TSHR, PINR, 2276-4, 6771-0, 2064-4, 2465-3, 1834-1, 89595-0, 5130-0, AHP #### [facility] ([id number]) [address], [address] [place] [address] HEPATITIS A IGM Non-Reactive Normal NRCT [facility] Comment on above: Result Comment: NEW TEST METHOD Performed By: #### C MP, 2157-6, FEPR, 2324-2, TSHR, PINR, 2276-4, 6771-0, 4-4, 2465-3, 1834-1, 33726-5, 5130-0, P #### [facility] ([id number]) [address], [address] [place] [address] HEPATITIS B CORE IGM Non-Reactive Normal NRCT [facility] Comment on above: Result Comment: NEW TEST METHOD Performed By: #### C MP, 2156-6, FEPR, 2324-2, TSHR, PINR, 2276-4, 6771-0, 4-4, 2465-3, 1834-1, 88183-6, 5130-0, P #### [facility] ([id number]) [address], [address] [place] [address] HEPATITIS B SURF AG Non-Reactive Normal NRCT [facility] Comment on above: Result Comment: NEW TEST METHOD Performed By: #### C MP, 2156-6, FEPR, 2324-2, TSHR, PINR, 2276-4, 6771-0, 4-4, 2465-3, 1834-1, 39574-1, 5130-0, P #### [facility] ([id number]) [address], [address] [place] [address] AFP [Mass/Vol]on 01-23-2025 ALPHA FETOPROTEIN 2.6 ng/mL Normal 0-9.9 [facility] Comment on above: Performed By: #### C MP, 2157-6, FEPR, 2324-2, TSHR, PINR, 2276-4, 6771-0, 4-4, 2465-3, 1834-1, 17689-5, 5130-0, P #### [facility] ([id number]) [address], [address] [place] [address] Aldolase [Catalytic activity /Vol]on 01-23-2025 ALDOLASE 5.4 U/L Normal 1.2-7.6 [facility] Comment on above: Result Comment: NOTE REFERENCE INTERVAL: Aldolase Access complete set of age- and/or gender-specific reference intervals for this test in the [facility] Test Directory ([employer]). Performed By: [facility] [address] [place] [address] [address] Design Engineer: Bart Infante MD, PhD CLIA Number: [id number] Performed By: #### C MP, 2156-6, FEPR, 2324-2, TSHR, PINR, 2276-4, 6771-0, 4-4, 2465-3, 1834-1, 30234-1, 5130-0, P #### [facility] ([id number]) [address] [place] [address] Alpha 1 antitrypsin Nephelom etry [Mass/Vol]on 01-23-2025 ALPHA 1 ANTITRYPSIN 185 mg/dL Normal 83-199 [facility] Comment on above: Performed By: #### C MP, 2157-6, FEPR, 2324-2, TSHR, PINR, 2276-4, 6771-0, 4-4, 2465-3, 1834-1, 58138-7, 5130-0, P #### [facility] ([id number]) [address], [address] [place] [address] CK [Catalytic activity/Vol]o n 01-23-2025 CPK 27 U/L Normal 24-170 [facility] Comment on above: Performed By: #### C MP, 2157-6, FEPR, 2324-2, TSHR, PINR, 2276-4, 6771-0, 2064-4, 2465-3, 1834-1, 83308-1, 5130-0, AHP #### [facility] ([id number]) [address], [address] [place] [address] COMPREHENSIVE METABOLIC PANE Josh 01-23-2025 Albumin [Mass/Vol] 3.5 g/dL Normal 3.2-5.3 [facility] Comment on above: Performed By: #### C MP, 2156-6, FEPR, 2324-2, TSHR, PINR, 2276-4, 6771-0, 2064-4, 2465-3, 1834-1, 95835-2, 5130-0, AHP #### [facility] ([id number]) [address], [address] [place] [address] ALP [Catalytic activity/Vol] 108 U/L Normal 39-130 [facility] Comment on above: Performed By: #### C MP, 2157-04, FEPR, 2324-2, TSHR, PINR, 2276-4, 6771-0, 4-4, 2465-3, 1834-1, 85086-8, 5130-0, AHP #### [facility] ([id number]) [address], [address] [place] [address] ALT [Catalytic activity/Vol] 13 U/L Normal 0-31 [facility] Comment on above: Performed By: #### C MP, 6, FEPR, 2324-2, TSHR, PINR, 2276-4, 6771-0, 4-4, 2465-3, 1834-1, 10660-5, 5130-0, AHP #### [facility] ([id number]) [address], [address] [place] [address] Anion gap [Moles/Vol] 14 mmol/L Normal 5-15 [facility] Comment on above: Performed By: #### C MP, 2157-6, FEPR, 2324-2, TSHR, PINR, 2276-4, 6771-0, 2064-4, 2465-3, 1834-1, 83954-5, 5130-0, AHP #### [facility] ([id number]) [address], [address] [place] [address] AST [Catalytic activity/Vol] 25 U/L Normal 0-41 [facility] Comment on above: Performed By: #### C MP, 2156-6, FEPR, 2324-2, TSHR, PINR, 2276-4, 6771-0, 2064-4, 2465-3, 1834-1, 57124-4, 5130-0, AHP #### [facility] ([id number]) [address], [address] [place] [address] Bilirubin [Mass/Vol] 1.1 mg/dL Normal 0.3-1.2 [facility] Comment on above: Performed By: #### C MP, 2156-6, FEPR, 2324-2, TSHR, PINR, 2276-4, 6771-0, 4-4, 2465-3, 1834-1, 33142-7, 5130-0, AHP #### [facility] ([id number]) [address], [address] [place] [address] Calcium [Mass/Vol] 9.0 mg/dL Normal 8.5-10.5 [facility] Comment on above: Performed By: #### C MP, 7-6, FEPR, 2324-2, TSHR, PINR, 2276-4, 6771-0, 4-4, 2465-3, 1834-1, 67606-3, 5130-0, AHP #### [facility] ([id number]) [address], [address] [place] [address] Chloride [Moles/Vol] 104 mmol/L Normal 98-109 [facility] Comment on above: Performed By: #### C MP, 2156-6, FEPR, 2324-2, TSHR, PINR, 2276-4, 6771-0, 4-4, 2465-3, 1834-1, 31511-6, 5130-0, P #### [facility] ([id number]) [address], [address] [place] [address] CO2 [Moles/Vol] 25 mmol/L Normal 22-32 [facility] Comment on above: Performed By: #### C MP, 2156-6, FEPR, 2324-2, TSHR, PINR, 2276-4, 6771-0, 4-4, 2465-3, 1834-1, 41523-0, 5130-0, P #### [facility] ([id number]) [address], [address] [address] Creatinine [Mass/Vol] 0.79 mg/dL Normal 0.40-1.00 [facility] Comment on above: Result Comment: METH OD TRACEABLE TO IDMS STANDARD Performed By: #### C MP, 2156-6, FEPR, 2324-2, TSHR, PINR, 2276-4, 6771-0, 4-4, 2465-3, 1834-1, 38033-4, 5130-0, P #### [facility] ([id number]) [address], [address] [address] GFR/1.73 sq M.predicted among non-blacks MDRD (S/P/Bld) [Vol rate/Area] 81 mL/min/{1.73_m2} Normal >59 [facility] Comment on above: Result Comment: Reported eGFR is based on the CKD-EPI 2020 equation that does not use a race coefficient. Performed By: #### C MP, 2157-6, FEPR, 2324-2, TSHR, PINR, 2276-4, 6771-0, 4-4, 2465-3, 1834-1, 72579-7, 5130-0, AHP #### [facility] ([id number]) [address], [address] [place] [address] Glucose [Mass/Vol] 269 mg/dL High 65-99 [facility] Comment on above: Performed By: #### C MP, 2156-6, FEPR, 2324-2, TSHR, PINR, 2276-4, 6771-0, 4-4, 2465-3, 1834-1, 50908-2, 5130-0, AHP #### [facility] ([id number]) [address], [address] [place] [address] Potassium [Moles/Vol] 3.8 mmol/L Normal 3.5-5.0 [facility] Comment on above: Performed By: #### C MP, 6, FEPR, 2324-2, TSHR, PINR, 2276-4, 6771-0, 4-4, 2465-3, 1834-1, 40703-5, 5130-0, P #### [facility] ([id number]) [address], [address] [place] [address] Protein [Mass/Vol] 7.4 g/dL Normal 6.0-8.0 [facility] Comment on above: Performed By: #### C MP, 6, FEPR, 2324-2, TSHR, PINR, 2276-4, 6771-0, 4-4, 2465-3, 1834-1, 46365-7, 5130-0, AHP #### [facility] ([id number]) [address], [address] [place] [address] Sodium [Moles/Vol] 143 mmol/L Normal 134-146 [facility] Comment on above: Performed By: #### C MP, 2156-6, FEPR, 2324-2, TSHR, PINR, 2276-4, 6771-0, 4-4, 2465-3, 1834-1, 38157-9, 5130-0, P #### [facility] ([id number]) [address], [address] [place] [address] Urea nitrogen [Mass/Vol] 24 mg/dL Normal 5-27 [facility] Comment on above: Performed By: #### C MP, 2156-6, FEPR, 2324-2, TSHR, PINR, 2276-4, 6771-0, 2064-4, 2465-3, 1834-1, 32971-5, 5130-0, P #### [facility] ([id number]) [address], [address] [place] [address] Ceruloplasmin [Mass/Vol]on 0 01-23-2025 CERULOPLASMIN 33 mg/dL Normal 18-58 [facility] Comment on above: Performed By: #### C MP, 2157-04, FEPR, 2324-2, TSHR, PINR, 2276-4, 6771-0, 2064-4, 2465-3, 1834-1, 96621-1, 5130-0, P #### [facility] ([id number]) [address], [address] [place] [address] DNA double strand Ab Qn (S)o n 01-23-2025 DOUBLE STRANDED DNA <1 Normal <5 [facility] Comment on above: Result Comment: Interpretation-------- <5 Negative 5-9 Indeterminate >9 Positive Performed By: #### C MP, 2156-6, FEPR, 2324-2, TSHR, PINR, 2276-4, 6771-0, 2064-4, 2465-3, 1834-1, 02210-9, 5130-0, AHP #### [facility] ([id number]) [address], [address] [place] [address] FERRITINon 01-23-2025 Ferritin [Mass/Vol] 5 ng/mL Low 11-307 [facility] Comment on above: Performed By: #### C MP, 2157-6, FEPR, 2324-2, TSHR, PINR, 2276-4, 6771-0, 2064-4, 2465-3, 1834-1, 57595-7, 5130-0, AHP #### [facility] ([id number]) [address], [address] [place] [address] GGTon 01-23-2025 Gamma glutamyl transferase [Catalytic activity/Vol] 86 U/L High 7-33 [facility] Comment on above: Performed By: #### C MP, 2157-6, FEPR, 2324-2, TSHR, PINR, 2276-4, 6771-0, 2064-4, 2465-3, 1834-1, 06798-6, 5130-0, AHP #### [facility] ([id number]) [address], [address] [place] [address] HPon 01-23-2025 HP -- Attestation signed by Damian Gomez MD at 01/23/2025 3:48 PM Seen and discussed with fellow, agree with assessment and plan. [facility] Gastroenterology New Patient Visit - History & Physical CHIEF COMPLAINT Chief Complaint Patient presents with New Patient EGD scheduled, was at [facility] and sent for an EGD but [...] : EGD and Colonoscopy was done in [facility] 11/06/2025 HISTORY: Problem list: Patient Active [...] Outpatient Medic (more content not included)... Normal [facility] IGGon 01-23-2025 IgG [Mass/Vol] 1498 mg/dL Normal 635-1741 [facility] Comment on above: Performed By: #### C MP, 2157-6, FEPR, 2324-2, TSHR, PINR, 2276-4, 6771-0, 2064-4, 2465-3, 1834-1, 62702-7, 5130-0, P #### [facility] ([id number]) [address], [address] [place] [address] IRON PROFILEon 01-23-2025 Iron [Mass/Vol] 20 ug/dL Low 50-170 [facility] Comment on above: Performed By: #### C MP, 2157-6, FEPR, 2324-2, TSHR, PINR, 2276-4, 6771-0, 4-4, 2465-3, 1834-1, 90889-4, 5130-0, AHP #### [facility] ([id number]) [address], [address] [place] [address] IRON BINDING 504 ug/dL High 250-425 [facility] Comment on above: Performed By: #### C MP, 2157-6, FEPR, 2324-2, TSHR, PINR, 2276-4, 6771-0, 4-4, 2465-3, 1834-1, 90885-4, 5130-0, AHP #### [facility] ([id number]) [address], [address] [place] [address] IRON SATURATION 4 % SATURATION Low 15-50 [facility] Comment on above: Performed By: #### C MP, 2157-6, FEPR, 2324-2, TSHR, PINR, 2276-4, 6771-0, 4-4, 2465-3, 1834-1, 09462-7, 5130-0, AHP #### [facility] ([id number]) [address], [address] [place] [address] Mitochondria M2 Ab IA Qn (S) on 01-23-2025 Mitochondrial Ab (M2) <0.1 Normal <0.1 (Negative) [facility] Comment on above: Result Comment: NOTE Test Performed by: [facility] [address] [place] [address] Saw Sharpener: Neyda Gutierrez Ph.D.; CLIA# [id number] Performed By: #### C MP, 2157-6, FEPR, 2324-2, TSHR, PINR, 2276-4, 6771-0, 4-4, 2465-3, 1834-1, 77638-4, 5130-0, [facility] #### [facility] ([id number]) [address], [address] [place] [address] Nuclear Ab IA Ql (S)on 01-23 [facility] Screen w/reflex Negative Normal NEG [facility] Comment on above: Result Comment: Testing performed using multiplex flow immunoassay. Eleven different antigens associated with systemic autoimmune diseases (dsDNA,Sm,Sm/HOUSE CLEANER SUPERVISOR,HOUSE CLEANER SUPERVISOR,Chromatin, SSA,SSB,Daniela-1,Scl70,Ribo P,Centromere B) are included in this screening test. Performed By: #### C MP, 2157-6, FEPR, 2324-2, TSHR, PINR, 2276-4, 6771-0, 2063-4, 2464-3, 4-1, 44019-6, 5130-0, [facility] #### [facility] ([id number]) [address] [place] [address], [address] [place] [address] Office Visiton 01-23-2025 Follow-up visit [id number] Connie Brian 1955 F Date Provider Department Center 01/23/2025 DAMIAN CORDOBA [facility] GI [facility] Family History Problem Relation Age of Onset No Known Problems Mother Diabetes Father No Known Problems Sister No Known Problems Brother Family Status - Relation Status Age at Mother Father Sister Brother Level of Service:38619 [place] OFFICE/OUTPATIENT NEW MODERATE MDM 45 MINUTES (GC) Reason for Visit and Comments: New Patient [632] - EGD scheduled, was at [facility] and sent for an EGD but also Cirrhosis work up. She was never told she has Cirrhisis but overheard a Doctor say it to another Doctor. Normal [facility] PROTIME AND INRon 01-23-2025 INR Coag (PPP) [Relative time] 1.4 {INR} High 0.9-1.2 [facility] Comment on above: Performed By: #### C MP, 2157-6, FEPR, 2324-2, TSHR, PINR, 2276-4, 6771-0, 2063-4, 2465-3, 1834-1, 71603-8, 5130-0, AHP #### [facility] ([id number]) [address], [address] [place] [address] PT Coag (PPP) [Time] 16.4 s High 9.8-13.2 [facility] Comment on above: Performed By: #### C MP, 2157-6, FEPR, 2324-2, TSHR, PINR, 2276-4, 6771-0, 2064-4, 2465-3, 1834-1, 66665-4, 5130-0, AHP #### [facility] ([id number]) [address], [address] [place] [address] TSH WITH REFLEXon 01-23-2025 TSH 3.87 uIU/mL Normal 0.49-4.67 [facility] Comment on above: Performed By: #### C MP, 2157-6, FEPR, 2324-2, TSHR, PINR, 2276-4, 6771-0, 2064-4, 2465-3, 1834-1, 28073-2, 5130-0, AHP #### [facility] ([id number]) [address], [address] [place] [address] 36on 01-22-2025 36 Spoke with patients roommate, Katherine, that I have the okay for Connie to hold her Eliquis for 48 hours prior to her EGD on 01/29/25, verbalizes understanding. Normal [facility] Telephoneon 01-22-2025 Telephone [id number] Connie Brian A 1955 F Date Provider Department Center 01/22/2025 MARINA AUSTIN [facility] Family History Problem Relation Age of Onset No Known Problems Mother Diabetes Father No Known Problems Sister No Known Problems Brother Family Status - Relation Status Age at Mother Father Sister Brother Normal [facility] Prep for Procedureon 025 Prep for Procedure [id number] Connie Brian A 1955 F Date Provider Department Center 01/21/2025 JESUS NAVA [facility] Family History Problem Relation Age of Onset No Known Problems Mother Diabetes Father No Known Problems Sister No Known Problems Brother Family Status - Relation Status Age at Mother Father Sister Brother [facility] 36on 01-11-2025 36 Message left for patient to call and schedule an EGD. She will also need an office visit with Dr. Gomez for Hepatology/Cirrhosis. Normal [facility] Office Visiton 12-18-2024 Follow-up visit [id number] Connei Brian 1955 F Date Provider Department Center 12/18/2024 ROGERS BERNAL DAISY [facility] Family History Problem Relation Age of Onset No Known Problems Mother Diabetes Father No Known Problems Sister No Known Problems Brother Family Status - Relation Status Age at Mother Father Sister Brother Level of Service:32427 [place] OFFICE/OUTPATIENT ESTABLISHED MOD MDM 30 MIN [facility] Reminderson 11-28-2024 Reminders Reminders From: Skye Concepcion LPN To: N - Clinical; Sent: 11/28/2024 09:09:41 EST Show up: 10/08/2029 07:00:00 EST Subject: colonoscopy recall Due Date/Time: 11/07/2029 07:00:00 EST Reminder/Recall Patient due for surveillance colonoscopy 11/07/2029 due to history of tubular adenoma. Normal [facility] Aerobic Cultureon 11-15-2024 Aerobic Culture No Growth 2 Days No Anaerobes Isolated 3 Days Gram Stain Result No Bacteria Seen Rare White Blood Cells PERFORMED BY: [place] [address] PATHOLOGIST HOME PERFORMANCE CONSULTANT HARRIET CHOWDHURY M.D. Normal [facility] Comment on above: Performed By: #### A AMANDA PAPPAS #### [address] Aerobic cultureOrdered By: Raleigh Del Rosario on 11-15-2024 Bacteria identified Aer cx Nom (Unsp spec) Aerobic culture [facility] Anaerobic cultureOrdered By: Lon Del Rosario on 11-15-2024 Bacteria identified Anaer cx Nom (Unsp spec) Anaerobic culture [facility] Gram Stainon 11-15-2024 Microscopic observation Gram stain Nom (Unsp spec) Gram Stain Result No Bacteria Seen Rare White Blood Cells PERFORMED BY: [place] [id number] PATHOLOGIST HOME PERFORMANCE CONSULTANT HARRIET CHOWDHURY M.D. Normal [facility] Comment on above: Performed By: #### A ERC, GS #### [place] [id number] [facility] Gram stain microscopyOrdered By: Lon Del Rosario on 11-15-2024 Microscopic observation Gram stain Nom (Unsp spec) Gram stain microscopy [facility] Blood Cultureon 11-14-2024 Bacteria identified Cx Nom (Bld) Specimen collected on 11/14/24 Gram Stain Gram Positive Cocci ORGANISM: Staphylococcus aureus (O:STAAUR) Organism Comments For KAL Refer to Final Report of Blood Culture Collected Date 11/14/24 PERFORMED BY: [place] [id number] PATHOLOGIST HOME PERFORMANCE CONSULTANT HARRIET CHOWDHURY M.D. Normal [facility] Comment on above: Performed By: #### C UBLD #### [address] Bacteria identified Cx Nom (Bld) Specimen [...] RESISTANT TO ALL B-LACTAM DRUGS. PERFORMED BY: [facility] [address] [place] [address] PATHOLOGIST HOME PERFORMANCE CONSULTANT HARRIET CHOWDHURY M.D. Normal [facility] Comment on above: Performed By: #### C UBLD #### [facility] [address] Laboratory - Microbiology an d Antimicrobial susceptibilityOrdered By: Howard Johnston on 11-14-2024 Bacteria identified Cx Nom (Bld) Abnormal [facility] Urine Cultureon 11-14-2024 Bacteria identified Cx Nom (U) ORGANISM: Escherichia coli (O:ESCCOL) Ciales Count 50,000 Aerobic KAL Charge (NMIC56) --- [...] RESISTANT TO ALL B-LACTAM DRUGS. PERFORMED BY: [address] [place] [address] PATHOLOGIST HOME PERFORMANCE CONSULTANT HARRIET CHOWDHURY M.D. Normal [facility] Comment on above: Performed By: #### C UU #### [address] [address] [facility] Urine cultureOrdered By: Kevin Johnston on 11-14-2024 Bacteria identified Cx Nom (U) Escherichia coli Abnormal [facility] Office Visiton 11-09-2024 Follow-up visit [id number] Connie Brian 1955 F Date Provider Department Center 11/09/2024 [id number] KHALIL [facility] Yolanda [facility] Family History Problem Relation Age of Onset No Known Problems Mother Diabetes Father No Known Problems Sister No Known Problems Brother Family Status - Relation Status Age at Mother Father Sister Brother Level of Service:63950 [place] OFFICE/OUTPATIENT ESTABLISHED MOD MDM 30 MIN Reason for Visit and Comments: Atrial Fibrillation [80] - On Eliquis. Hypertension [496694] Congestive Heart Failure [127] - Denies chest pain, SOB, and LE edema. Valve Disorder [3372] Epistaxis (Nose Bleed) [089879] - Having epistaxis in the mornings, recently had 1 straight week of them. Palpitations [446458] - She presented to [facility] ED last weekend for palpitations. Patient states she was advised to increase metoprolol to 75mg bid x3 days, and then return to baseline dose of 50mg bid. Normal [facility] Pathology Request for Lab Co rpon 11-07-2024 Pathology Request for Lab Niall Normal [facility] Comment on above: Order Comment: PATHO LOGY GI SPECIMEN Result Comment: See report. Scanned copy available in EMR. PERFORMED BY: [address] [address] PATHOLOGIST HOME PERFORMANCE CONSULTANT HARRIET CHOWDHURY M.D. Performed By: #### P ATH TO [facility] #### [facility] [address] [place] [id number] [facility] Ambulatory Visit Summaryon 1 12-03-2023 Ambulatory Visit Summary Ambulatory Visit Summary CONNIE BRIAN :1955 Visit Date:10/03/2024 Ambulatory Visit Instructions Your Diagnosis Anemia Your Care Team Attending Physician - JOSE ALBERTO MARRERO, Manoj Lemus Primary Care Physician - Maryjane Reynolds MD Referring Physician - Maryjane Reynolds MD This Is Your Medications List Contact [...] for choosing us for your care. Normal [facility] HPon 08-06-2024 [facility] Electrophysiology Consult Note [facility] Clinic Reason for visit: Afib 08/06/24 Pt here for LOOP 07/03/24 Pt is doing well and occasionally feels palpitations. HPI: Connie Brian is a 68 y.o. year old with past medical history of Hypertension, diabetes, dyslipidemia, palpitations. She was recently seen at the [facility] for A-fib RVR as she was admitted for diarrhea and palpitations. She was found to have C. difficile and was treated with antibiotics and converted to sinus rhythm on her own. She states she normally would get palpitations when she drinks caffeine and typically avoids caffeine, the day of her admission she believes she was given caffeinated coffee at [employer] and then began experience palpitations while already [...] show any evidence of reversible ischemia. below [id number] at least 4 for age, gender, hypertension, [...] bilateral antoine (more content not included)... Normal [facility] NURSNOTEon 08-06-2024 NURSNOTE RN educated pt on d/ c instructions. RN encouraged pt to voice any questions or concerns. Pt verbalizes no questions or concerns at this time. Pt was wheeled off of unit with all of belongings. Normal [facility] INSULINon 09-25-2022 Insulin 14.1 uIU/mL Normal 2.6-24.9 [facility] Comment on above: Performed By: #### I NSULIN #### [facility] [address] [place] [address] [address] Becky Josue CBC AUTO DIFFon 09-24-2022 BASO # 0.0 103/ul Normal 0.0-0.1 [facility] Comment on above: Performed By: #### C BC ####[facility] [address] [place] [address]DrBrayan Josue Basophils/100 WBC (Bld) 0.5 % Normal 0.2-2.0 [facility] Comment on above: Performed By: #### C BC ####[facility] [address] [place] [address]Dr. Becky Josue EO # 0.1 103/ul Normal 0.0-0.7 [facility] Comment on above: Performed By: #### C BC ####[facility] [address] [place], [place] [address]Dr. Becky Josue Eosinophils/100 WBC (Bld) 3.3 % Normal 0.9-7.0 [facility] Comment on above: Performed By: #### C BC ####[facility] [address] [place], [place] [address]Dr. Becky Josue Erythrocyte distribution width (RBC) [Ratio] 14.3 % Normal 11.0-15.0 [facility] Comment on above: Performed By: #### C BC ####[facility] [address] [place], [place] [address]Dr. Becky Josue Hematocrit (Bld) [Volume fraction] 42.6 % Normal 36.0-48.0 [facility] Comment on above: Performed By: #### C BC ####[facility] [address] [place], [place] [address]DrBrayan Josue Hemoglobin (Bld) [Mass/Vol] 13.8 g/dL Normal 12.0-16.0 [facility] Comment on above: Performed By: #### C BC ####[facility] [address] [place] [address]Dr. Becky Joselo IG # 0.02 10e3/ul Normal 0.00-0.03 [facility] Comment on above: Performed By: #### C BC ####[facility] [address] [place], [place] [address]Dr. Becky Joselo IG % 0.5 % Normal 0.0-0.5 [facility] Comment on above: Performed By: #### C BC ####[facility] [address] [place], [place] [address]DrBrayan Foremankwadwo Joselo LYMPH # 1.1 103/ul Critically low 1.2-3.8 [facility] Comment on above: Performed By: #### C BC ####[facility] [address] [place], [place] [address]Dr. Kellenkwadwo Josue Lymphocytes/100 WBC (Bld) 28.0 % Normal 20.5-60.0 [facility] Comment on above: Performed By: #### C BC ####[facility] [address] [place], [place] [address]DrBrayan Kellenkwadwo Josue MANUAL DIFF REQ NO Normal [facility] Comment on above: Performed By: #### C BC ####[facility] [address] [place], [place] [address]Dr. Becky Josue MCH (RBC) [Entitic mass] 29.3 pg Normal 26.7-34.0 [facility] Comment on above: Performed By: #### C BC ####[facility] [address] [place], [place] [address]DrBrayan Becky Joselo MCHC (RBC) [Mass/Vol] 32.4 g/dL Normal 29.9-35.2 [facility] Comment on above: Performed By: #### C BC ####[facility] [address] [place], [place] [address]DrBrayan Becky Joselo MCV (RBC) [Entitic vol] 90.4 fL Normal 81.0-99.0 [facility] Comment on above: Performed By: #### C BC ####[facility] [address] [place], [place] [address]Dr. Becky Josue MONO # 0.3 103/ul Normal 0.3-0.8 [facility] Comment on above: Performed By: #### C BC ####[facility] [address] [place] [address]Dr. Becky Josue Monocytes/100 WBC (Bld) 8.3 % Normal 1.7-12.0 [facility] Comment on above: Performed By: #### C BC ####[facility] [address] [place] [address]Dr. Becky Josue NEUT # 2.4 103/ul Normal 1.4-6.5 [facility] Comment on above: Performed By: #### C BC ####[facility] [address] [place] [address]Dr. Becky Josue Neutrophils/100 WBC (Bld) 59.4 % Normal 43.0-75.0 [facility] Comment on above: Performed By: #### C BC ####[facility] [address] [place], [place] [address]Dr. Becky Josue Platelet mean volume (Bld) [Entitic vol] 10.3 fL Normal 9.5-13.5 [facility] Comment on above: Performed By: #### C BC ####[facility] [address] [place] [address]Dr. Becky Josue PLT 149 103/ul Critically low 150-450 [facility] Comment on above: Performed By: #### C BC ####[facility] [address] [place] [address]Dr. Becky Josue RBC 4.71 106/ul Normal 4.20-5.40 [facility] Comment on above: Performed By: #### C BC ####[facility] [address] [place], [place] [address]Dr. Becky Josue WBC 4.0 103/ul Normal 4.0-11.0 [facility] Comment on above: Performed By: #### C BC ####[facility] [address] [place], [place] [address]Dr. Becky Josue FREE THYROXINE INDEX T7on 11 -04-2022 FTI 3.36 Normal 1.30-4.50 [facility] Comment on above: Performed By: #### L IPID, CMP, TSH, T7 ####[facility] [address] [place] [id number]. Becky Josue T3U 32.0 % Normal 30.0-39.0 [facility] Comment on above: Performed By: #### L IPID, CMP, TSH, T7 ####[facility] [address] [place], [place] [address]Uf. Becky Josue T4 [Mass/Vol] 10.50 ug/dL Normal 4.80-13.90 [facility] Comment on above: Performed By: #### L IPID, CMP, TSH, T7 ####[facility] [address] [place] [id number]. Becky Josue GLYCOHEMOGLOBIN A1Con 2021 ADA RECOMMENDATION SEE BELOW Normal [facility] Comment on above: Result Comment: ADA RECOMMENDED LIMIT 4.0 - 6.0 ADA THERAPEUTIC TARGET < 7.0 ACTION SUGGESTED > 7.0 Performed By: #### A 1C #### [facility] [address] [place] [address] [address] Becky Josue Glucose [Mass/Vol] 237 mg/dL Normal [facility] Comment on above: Performed By: #### A 1C #### [facility] [address] [place] [address] [address] Becky Josue HbA1c (Bld) [Mass fraction] 9.9 % Critically high 4.5-6.2 [facility] Comment on above: Performed By: #### A 1C #### [facility] [address] [place] [address] [address] Becky Josue IRONon 09-24-2022 Iron [Mass/Vol] 55.0 ug/dL Normal 50.0-170.0 [facility] Comment on above: Performed By: #### I ROBERT CLINE #### [facility] [address] [place] [address] [address] Becky Josue LIPID PROFILEon 09-24-2022 CHOL-HDL RATIO NORM SEE BELOW Normal [facility] Comment on above: Result Comment: 3.3 - 4.4 LOW RISK 4.4 - 7.1 AVERAGE RISK 7.1 - 11.0 MODERATE RISK >11.0 HIGH RISK Performed By: #### L IPID, CMP, TSH, T7 ####[facility] [address] [place], [place] [address]Hv. Becky Josue Cholesterol [Mass/Vol] 171 mg/dL Normal <=200 Th [facility] Comment on above: Performed By: #### L IPID, CMP, TSH, T7 ####[facility] [address] [place], [place] [address]Fe. Becky Josue Cholesterol in HDL [Mass/Vol] 38 mg/dL Critically low 40-60 [facility] Comment on above: Performed By: #### L IPID, CMP, TSH, T7 ####[facility] [address] [place] [id number]. Kellenkwadwo Joselo Cholesterol in LDL [Mass/Vol] 101.6 mg/dL Normal [facility] Comment on above: Performed By: #### L IPID, CMP, TSH, T7 ####[facility] [address] [place] [id number]. Kellenkwadwo Joselo Cholesterol.total/Padmini sterol in HDL [Mass ratio] 4.5 {ratio} Normal [facility] Comment on above: Performed By: #### L IPID, CMP, TSH, T7 ####[facility] [address] [place], [place] [address]Wn. Kellenkwadwo Josue HDL NORMAL > or = 60 mg/dl - LO W CARDIOVASCULAR RISK <40 mg/dl - HIGH CARDIOVASCULAR RISK Normal [facility] Comment on above: Performed By: #### L IPID, CMP, TSH, T7 ####[facility] [address] [place] [id number]. Becky Josue LDL CALC NORMAL SEE BELOW Normal [facility] Comment on above: Result Comment: <100 mg/dl OPTIMAL 100 - 129 mg/dl NEAR OR ABOVE OPTIMAL 130 - 159 mg/dl BORDERLINE HIGH 160 - 189 mg/dl HIGH >190 mg/dl VERY HIGH Performed By: #### L IPID, CMP, TSH, T7 ####[facility] [address] [place] [address]Dr. Becky Josue Triglyceride [Mass/Vol] 157 mg/dL Critically high <=150 [facility] Comment on above: Performed By: #### L IPID, CMP, TSH, T7 ####[facility] [address] [place] [address]Dr. Becky Josue VLDL CALC 31.4 mg/dL Normal [facility] Comment on above: Performed By: #### L IPID, CMP, TSH, T7 ####[facility] [address] [place] [address]Dr. Becky Josue PROF 14(COMP METB)on 022 Albumin [Mass/Vol] 3.4 g/dL Normal 3.4-5.0 [facility] Comment on above: Performed By: #### L IPID, CMP, TSH, T7 ####[facility] [address] [place] [address]Dr. Becky Josue Albumin/Globulin [Mass ratio] 0.9 {ratio} Normal [facility] Comment on above: Performed By: #### L IPID, CMP, TSH, T7 ####[facility] [address] [place] [address]Dr. Becky Josue ALP [Catalytic activity/Vol] 106 U/L Normal 46-116 [facility] Comment on above: Performed By: #### L IPID, CMP, TSH, T7 ####[facility] [address] [place] [address]Dr. Becky Josue ALT [Catalytic activity/Vol] 39 U/L Normal 14-59 [facility] Comment on above: Performed By: #### L IPID, CMP, TSH, T7 ####[facility] [address] [place] [address]Dr. Becky Josue Anion gap [Moles/Vol] 6.9 mmol/L Normal [facility] Comment on above: Performed By: #### L IPID, CMP, TSH, T7 ####[facility] [address] [place] [id number]. Becky Josue AST [Catalytic activity/Vol] 44 U/L Critically high 15-37 [facility] Comment on above: Performed By: #### L IPID, CMP, TSH, T7 ####[facility] [address] [place] [address]Dr. Becky Josue Bilirubin [Mass/Vol] 1.1 mg/dL Critically high 0.2-1.0 [facility] Comment on above: Performed By: #### L IPID, CMP, TSH, T7 ####[facility] [address] [place] [address]Dr. Becky Josue Calcium [Mass/Vol] 9.4 mg/dL Normal 8.5-10.1 [facility] Comment on above: Performed By: #### L IPID, CMP, TSH, T7 ####[facility] [address] [place] [address]Dr. Becky Josue Chloride [Moles/Vol] 103 mmol/L Normal 98-107 [facility] Comment on above: Performed By: #### L IPID, CMP, TSH, T7 ####[facility] [address] [place], [place] [address]Dr. Becky Josue CO2 [Moles/Vol] 31.3 mmol/L Normal 21.0-32.0 [facility] Comment on above: Performed By: #### L IPID, CMP, TSH, T7 ####[facility] [address] [place] [address]Dr. Becky Josue Creatinine [Mass/Vol] 0.72 mg/dL Normal 0.55-1.02 [facility] Comment on above: Performed By: #### L IPID, CMP, TSH, T7 ####[facility] [address] [place], [place] [address]Dr. Becky Josue EGFR-AF GRENADIAN >60 Normal >=60 [facility] Comment on above: Performed By: #### L IPID, CMP, TSH, T7 ####[facility] [address] [place] [address]Dr. Becky Josue EGFR-NON AF GRENADIAN >60 Normal >=60 [facility] Comment on above: Performed By: #### L IPID, CMP, TSH, T7 ####[facility] [address] [place] [address]Dr. Becky Josue Globulin (S) [Mass/Vol] 4.0 g/dL Normal [facility] Comment on above: Performed By: #### L IPID, CMP, TSH, T7 ####[facility] [address] [place] [address]Dr. Becky Josue Glucose [Mass/Vol] 315 mg/dL Critically high 74-106 [facility] Comment on above: Performed By: #### L IPID, CMP, TSH, T7 ####[facility] [address] [place] [address]Dr. Becky Josue Potassium [Moles/Vol] 4.2 mmol/L Normal 3.5-5.1 [facility] Comment on above: Performed By: #### L IPID, CMP, TSH, T7 ####[facility] [address] [place], [place] [address]Dr. Becky Josue Protein [Mass/Vol] 7.4 g/dL Normal 6.4-8.2 [facility] Comment on above: Performed By: #### L IPID, CMP, TSH, T7 ####[facility] [address] [place] [address]Dr. Becky Josue Sodium [Moles/Vol] 137 mmol/L Normal 136-145 [facility] Comment on above: Performed By: #### L IPID, CMP, TSH, T7 ####[facility] [address] [place] [address]Dr. Becky Josue Urea nitrogen [Mass/Vol] 14.0 mg/dL Normal 7.0-18.0 [facility] Comment on above: Performed By: #### L IPID, CMP, TSH, T7 ####[facility] [address] [place] [address]Dr. Becky Josue Urea nitrogen/Creatinine [Mass ratio] 19.4 mg/mg Normal [facility] Comment on above: Performed By: #### L IPID, CMP, TSH, T7 ####[facility] [address] [place], [place] [address]Dr. Becky Josue TSHon 09-24-2022 TSH 2.117 uIU/mL Normal 0.358-3.740 [facility] Comment on above: Performed By: #### L IPID, CMP, TSH, T7 ####[facility] [address] [place], [place] [address]WpBrayan Josue VITAMIN D 25 OHon 09-24-2022 VIT D 25-OH 21.3 ng/mL Normal [facility] Comment on above: Performed By: #### I MARLYN VITAD #### [facility] [address] [address] [address] Becky Josue VIT D RANGES SEE BELOW Normal [facility] Comment on above: Result Comment: <20 ng/mL Vit D deficient 20 - <30 ng/mL Vit D insufficient 30 - 100 ng/mL Vit D sufficient >100 ng/mL Potential Toxicity Performed By: #### Ryan CLINE VITAD #### [facility] [address] [address] [address] Becky Josue COVID Quick Testingon 2020 Result Negative [facility] Other MG MAMM SCREEN 3D SVEN CADon 10-12-2021 MG MAMM SCREEN 3D SVEN CAD Patient: CONNIE BRIAN Exam Date: 10/12/2021 : 1955 Gender:F Ordering : DR MARYJANE REYNOLDS . Admission #: [id number] Family : Order #: [id number] CLICK HERE TO VIEW EXAM RADIOLOGY REPORT [...] breast cancer at age 66. LOCATION: [facility] BREAST COMPOSITION: Scattered areas fibroglandular [...] Rosario M.D. on 10/13/2021 at 12:22 Normal [facility] CBC AUTO DIFFon 10-03-2021 BASO # 0.0 103/ul Normal 0.0-0.1 [facility] Comment on above: Performed By: #### C BC #### [facility] [address] [place] [address] Dr. Becky Josue Basophils/100 WBC (Bld) 0.4 % Normal 0.2-2.0 [facility] Comment on above: Performed By: #### C BC #### [facility] [address] [place] [address] Dr. Becky Josue EO # 0.2 103/ul Normal 0.0-0.7 [facility] Comment on above: Performed By: #### C BC #### [facility] [address] [address] [address] Becky Josue Eosinophils/100 WBC (Bld) 4.1 % Normal 0.9-7.0 [facility] Comment on above: Performed By: #### C BC #### [facility] [address] [address] [address] Becky Josue Erythrocyte distribution width (RBC) [Ratio] 14.5 % Normal 11.0-15.0 [facility] Comment on above: Performed By: #### C BC #### [facility] [address] [place] [address] Dr. Becky Josue Hematocrit (Bld) [Volume fraction] 43.5 % Normal 36.0-48.0 [facility] Comment on above: Performed By: #### C BC #### [facility] [address] [place] [address] Dr. Becky Josue Hemoglobin (Bld) [Mass/Vol] 13.7 g/dL Normal 12.0-16.0 [facility] Comment on above: Performed By: #### C BC #### [facility] [address] [place] [address] Dr. Becky Josue IG # 0.02 10e3/ul Normal 0.00-0.03 [facility] Comment on above: Performed By: #### C BC #### [facility] [address] [place] [address] Dr. Becky Josue IG % 0.4 % Normal 0.0-0.5 [facility] Comment on above: Performed By: #### C BC #### [facility] [address] [place] [address] Dr. Becky Josue LYMPH # 1.6 103/ul Normal 1.2-3.8 [facility] Comment on above: Performed By: #### C BC #### [facility] [address] [place] [address] Dr. Becky Josue Lymphocytes/100 WBC (Bld) 32.0 % Normal 20.5-60.0 [facility] Comment on above: Performed By: #### C BC #### [facility] [address] [place] [address] Dr. Becky Josue MANUAL DIFF REQ NO Normal [facility] Comment on above: Performed By: #### C BC #### [facility] [address] [place] [address] Dr. Becky Josue MCH (RBC) [Entitic mass] 29.5 pg Normal 26.7-34.0 [facility] Comment on above: Performed By: #### C BC #### [facility] [address] [place] [address] Dr. Becyk Josue MCHC (RBC) [Mass/Vol] 31.5 g/dL Normal 29.9-35.2 [facility] Comment on above: Performed By: #### C BC #### [facility] [address] [address] [address] Becky Josue MCV (RBC) [Entitic vol] 93.5 fL Normal 81.0-99.0 [facility] Comment on above: Performed By: #### C BC #### [facility] [address] [address] [address] Becky Josue MONO # 0.4 103/ul Normal 0.3-0.8 [facility] Comment on above: Performed By: #### C BC #### [facility] [address] [place] [address] Dr. Becky Josue Monocytes/100 WBC (Bld) 8.8 % Normal 1.7-12.0 [facility] Comment on above: Performed By: #### C BC #### [facility] [address] [place] [address] Dr. Becky Josue NEUT # 2.7 103/ul Normal 1.4-6.5 [facility] Comment on above: Performed By: #### C BC #### [facility] [address] [place] [address] Dr. Becky Josue Neutrophils/100 WBC (Bld) 54.3 % Normal 43.0-75.0 [facility] Comment on above: Performed By: #### C BC #### [facility] [address] [place] [address] Dr. Becky Josue Platelet mean volume (Bld) [Entitic vol] 10.4 fL Normal 9.5-13.5 [facility] Comment on above: Performed By: #### C BC #### [facility] [address] [place] [address] Dr. Becky Josue PLT 158 103/ul Normal 150-450 [facility] Comment on above: Performed By: #### C BC #### [facility] [address] [place] [address] Dr. Becky Josue RBC 4.65 106/ul Normal 4.20-5.40 [facility] Comment on above: Performed By: #### C BC #### [facility] [address] [address] [address] Becky Josue WBC 4.9 103/ul Normal 4.0-11.0 [facility] Comment on above: Performed By: #### C BC #### [facility] [address] [address] [address] Becky Josue FREE THYROXINE INDEX T7on FTI 2.79 Normal [facility] Comment on above: Performed By: #### L IPID, CMP, T7, TSH ####[facility] [address] [place] [id number]. Becky Josue T3U 30.0 % Normal 23.5-40.5 [facility] Comment on above: Performed By: #### L IPID, CMP, T7, TSH ####[facility] [address] [place] [id number] Josue T4 [Mass/Vol] 9.30 ug/dL Normal 5.53-11.00 [facility] Comment on above: Performed By: #### L IPID, CMP, T7, TSH ####[facility] [address] [place] [id number]. Becky Josue GLYCOHEMOGLOBIN A1Con 2020 ADA RECOMMENDATION ADA THERAPEUTIC TARG ET 6.0 - 7.0 ACTION SUGGESTED > 7.0 Normal [facility] Comment on above: Performed By: #### A 1C #### [facility] [address] [address] [address] Becky Josue Glucose [Mass/Vol] 229 mg/dL Normal [facility] Comment on above: Performed By: #### A 1C #### [facility] [address] [address] [address] Becky Josue HbA1c (Bld) [Mass fraction] 9.6 % Critically high <=6.0 [facility] Comment on above: Performed By: #### A 1C #### [facility] [address] [address] [address] Becky Josue IRONon 10-03-2021 Iron [Mass/Vol] 62.0 ug/dL Normal 37.0-170.0 [facility] Comment on above: Performed By: #### I MARLYN #### [facility] [address] [address] [address] Becky Josue LIPID PROFILEon 10-03-2021 CHOL-HDL RATIO NORM SEE BELOW Normal [facility] Comment on above: Result Comment: 3.3 - 4.4 LOW RISK 4.4 - 7.1 AVERAGE RISK 7.1 - 11.0 MODERATE RISK >11.0 HIGH RISK Performed By: #### L IPID, CMP, T7, TSH #### [facility] [address] [address] [address] Becky Josue Cholesterol [Mass/Vol] 172 mg/dL Normal <=200 [facility] Comment on above: Performed By: #### L IPID, CMP, T7, TSH #### [facility] [address] [address] [address] Becky Josue Cholesterol in HDL [Mass/Vol] 38 mg/dL Normal [facility] Comment on above: Performed By: #### L IPID, CMP, T7, TSH #### [facility] [address] [address] [address] Becky Josue Cholesterol in LDL [Mass/Vol] 89.0 mg/dL Normal [facility] Comment on above: Performed By: #### L IPID, CMP, T7, TSH #### [facility] [address] [address] [address] Becky Josue Cholesterol.total/Padmini sterol in HDL [Mass ratio] 4.5 {ratio} Normal [facility] Comment on above: Performed By: #### L IPID, CMP, T7, TSH #### [facility] [address] [address] [address] Becky Josue HDL NORMAL > or = 60 mg/dl - LO W CARDIOVASCULAR RISK <40 mg/dl - HIGH CARDIOVASCULAR RISK Normal [facility] Comment on above: Performed By: #### L IPID, CMP, T7, TSH #### [facility] [address] [address] [address] Becky Josue LDL CALC NORMAL SEE BELOW Normal [facility] Comment on above: Result Comment: <100 mg/dl OPTIMAL 100 - 129 mg/dl NEAR OR ABOVE OPTIMAL 130 - 159 mg/dl BORDERLINE HIGH 160 - 189 mg/dl HIGH >190 mg/dl VERY HIGH Performed By: #### L IPID, CMP, T7, TSH #### [facility] [address] [address] [address] Becky Josue Triglyceride [Mass/Vol] 225 mg/dL Critically high <=150 [facility] Comment on above: Performed By: #### L IPID, CMP, T7, TSH #### [facility] [address] [address] [address] Becky Josue VLDL CALC 45.0 mg/dL Normal [facility] Comment on above: Performed By: #### L IPID, CMP, T7, TSH #### [facility] [address] [address] [address] Becky Josue PROF 14(COMP METB)on 021 Albumin [Mass/Vol] 3.1 g/dL Critically low 3.5-5.0 [facility] Comment on above: Performed By: #### L IPID, CMP, T7, TSH #### [facility] [address] [address] [address] Becky Josue Albumin/Globulin [Mass ratio] 0.8 {ratio} Normal [facility] Comment on above: Performed By: #### L IPID, CMP, T7, TSH #### [facility] [address] [address] [address] Becky Josue ALP [Catalytic activity/Vol] 100 U/L Normal 38-126 [facility] Comment on above: Performed By: #### L IPID, CMP, T7, TSH #### [facility] [address] [address] [address] Becky Josue ALT [Catalytic activity/Vol] 35 U/L Normal 9-52 [facility] Comment on above: Performed By: #### L IPID, CMP, T7, TSH #### [facility] [address] [address] [address] Becky Josue Anion gap [Moles/Vol] 13.0 mmol/L Normal Th e [facility] Comment on above: Performed By: #### L IPID, CMP, T7, TSH #### [facility] [address] [address] [address] Becky Josue AST [Catalytic activity/Vol] 27 U/L Normal 14-36 [facility] Comment on above: Performed By: #### L IPID, CMP, T7, TSH #### [facility] [address] [address] [address] Becky Josue Bilirubin [Mass/Vol] 0.8 mg/dL Normal 0.2-1.3 [facility] Comment on above: Performed By: #### L IPID, CMP, T7, TSH #### [facility] [address] [place] [address] Dr. Becky Josue Calcium [Mass/Vol] 8.9 mg/dL Normal 8.4-10.2 [facility] Comment on above: Performed By: #### L IPID, CMP, T7, TSH #### [facility] [address] [place] [address] Dr. Becky Josue Chloride [Moles/Vol] 103 mmol/L Normal 98-107 [facility] Comment on above: Performed By: #### L IPID, CMP, T7, TSH #### [facility] [address] [place] [address] Dr. Becky Josue CO2 [Moles/Vol] 30.3 mmol/L Critically high 22.0-30.0 [facility] Comment on above: Performed By: #### L IPID, CMP, T7, TSH #### [facility] [address] [place] [address] Dr. Becky Josue Creatinine [Mass/Vol] 0.72 mg/dL Normal 0.52-1.04 [facility] Comment on above: Performed By: #### L IPID, CMP, T7, TSH #### [facility] [address] [place] [address] Dr. Becky Josue EGFR-AF GRENADIAN >60 Normal >=60 [facility] Comment on above: Performed By: #### L IPID, CMP, T7, TSH #### [facility] [address] [address] [address] Becky Josue EGFR-NON AF GRENADIAN >60 Normal >=60 [facility] Comment on above: Performed By: #### L IPID, CMP, T7, TSH #### [facility] [address] [address] [address] Becky Josue Globulin (S) [Mass/Vol] 3.9 g/dL Normal [facility] Comment on above: Performed By: #### L IPID, CMP, T7, TSH #### [facility] [address] [address] [address] Becky Josue Glucose [Mass/Vol] 261 mg/dL Critically high 74-106 [facility] Comment on above: Performed By: #### L IPID, CMP, T7, TSH #### [facility] [address] [place] [address] Dr. Becky Josue Potassium [Moles/Vol] 4.3 mmol/L Normal 3.4-5.0 [facility] Comment on above: Performed By: #### L IPID, CMP, T7, TSH #### [facility] [address] [address] [address] Becky Josue Protein [Mass/Vol] 7.0 g/dL Normal 6.1-8.2 [facility] Comment on above: Performed By: #### L IPID, CMP, T7, TSH #### [facility] [address] [address] [address] Becky Josue Sodium [Moles/Vol] 142 mmol/L Normal 137-145 [facility] Comment on above: Performed By: #### L IPID, CMP, T7, TSH #### [facility] [address] [address] [address] Becky Josue Urea nitrogen [Mass/Vol] 22.0 mg/dL Critically high 7.0-17.0 [facility] Comment on above: Performed By: #### L IPID, CMP, T7, TSH #### [facility] [address] [place] [address] Dr. Becky Josue Urea nitrogen/Creatinine [Mass ratio] 30.6 mg/mg Normal [facility] Comment on above: Performed By: #### L IPID, CMP, T7, TSH #### [facility] [address] [place], [place] [address] Dr. Becky Josue TSHon 10-03-2021 TSH 2.809 uIU/mL Normal 0.470-4.680 [facility] Comment on above: Performed By: #### L IPID, CMP, T7, TSH ####[facility] [address] [place], [place] [address]KeDr. Becky Josue TSH RANGE SEE BELOW Normal [facility] Comment on above: Result Comment: <0.3 4 UIU/ml HYPERTHYROID 0.34-5.60 UIU/ml EUTHYROID >5.60 UIU/ml HYPOTHYROID Performed By: #### L IPID, CMP, T7, TSH ####[facility] [address] [place], [place] [address]FaDr. Becky Josue Vital Signs Date Time Vital Sign Value Performing Clinician Facility 02-12-2025 12:31-0400 Body height 167.64 cm Howard Hay DO Work Phone: [facility] 02-12-2025 12:31-0400 Body mass index (BMI) [Ratio] 33 kg/m2 Howard Hay DO Work Phone: [facility] 02-12-2025 12:31-0400 Body temperature 98.4 [degF] Howard Hay DO Work Phone: [facility] 02-12-2025 12:31-0400 Body weight 92.7 kg Howard Hay DO Work Phone: [facility] 02-12-2025 12:31-0400 Diastolic blood pressure 66 mm[Hg] Howard Hay DO Work Phone: [facility] 02-12-2025 12:31-0400 Heart rate 73 /min Howard Hay DO Work Phone: [facility] 02-12-2025 12:31-0400 Respiratory rate 12 /min Howard Hay DO Work Phone: [facility] 02-12-2025 12:31-0400 SaO2% (BldA) [Mass fraction] 96 % Howard Johnston DO Work Phone: [facility] 02-12-2025 12:31-0400 Systolic blood pressure 151 mm[Hg] Howard Johnston DO Work Phone: [facility] 10-03-2024 14:06-0500 Blood Pressure Location [facility]oj [employer] [facility] 10-03-2024 14:06-0500 Diastolic blood pressure 68 mm[Hg] [employer] [facility] 10-03-2024 14:06-0500 Heart rate 72 /min Manoj [employer] [facility] 10-03-2024 14:06-0500 Respiratory rate 16 /min Manoj [employer] [facility] 10-03-2024 14:06-0500 Systolic blood pressure 132 mm[Hg] Manoj [employer] [facility] 02-16-2022 12:30-0400 Body height 167.64 cm Ashley [employer] Other [employer] Other 02-16-2022 12:30-0400 Body mass index (BMI) [Ratio] 34.21 kg/m2 Ashley Cox Other [employer] Other 02-16-2022 12:30-0400 Body temperature 97.8 [degF] Ashley Cox Other [employer] Other 02-16-2022 12:30-0400 Body weight 96.16 kg Ashley Cox Other [employer] Other 02-16-2022 12:30-0400 Respiratory rate 18 /min Ashley Cox Other [place] [employer] Other 02-16-2022 12:30-0400 SaO2% (BldA) [Mass fraction] 97 % Ashley Cox Other [facility] [employer] Other Encounters Encounter Date Encounter Type Care Provider Facility Start: 07-30-2025 End: 07-30-2025 ambulatory ANGELICA PIERRE [facility] Start: 07-18-2025 End: 07-18-2025 ambulatory JOSHUA ORLANDO [facility] Start: 07-13-2025 End: 07-13-2025 ambulatory Joan Hoang [facility] Work Phone: Start: 07-13-2025 End: 07-13-2025 Departed [facility] Joan Hoang MD -LAB [facility] Start: 07-11-2025 End: 07-11-2025 ambulatory JANA RAYO [facility] Start: 07-10-2025 ambulatory ILAN WILLAMS [facility] Start: 06-13-2025 Evaluation and management of inpatient [facility] Start: 06-13-2025 ambulatory [facility] Start: 06-13-2025 End: 06-15-2025 Evaluation and management of inpatient [facility] Start: 05-28-2025 End: 05-28-2025 [facility]: 04-25-2025 End: 04-25-2025 Evaluation and management of inpatient JESUS Jordan [facility] Start: 04-23-2025 End: 04-23-2025 ambulatory [facility] Start: 04-10-2025 End: 04-10-2025 ambulatory MARYJANE RENYOLDS [facility] Start: 04-10-2025 End: 04-10-2025 ambulatory DAMIAN GOMEZ [facility] Start: 04-01-2025 ambulatory [facility] Start: 03-05-2025 End: 03-05-2025 ambulatory Maryjane Reynolds [facility] Work Phone: Start: 03-05-2025 End: 03-05-2025 Departed Referred Maryjane Reynolds MD Work Phone: [facility] Start: 02-26-2025 End: 02-26-2025 ambulatory [facility] Start: 02-12-2025 End: 02-12-2025 ambulatory Howard Johntson DO Work Phone: [facility] Work Phone: Start: 02-12-2025 End: 02-12-2025 Patient encounter procedure Howard Johnston DO Work Phone: [facility] Work Phone: Start: 02-07-2025 ambulatory [facility] Start: 01-29-2025 End: 01-29-2025 ambulatory JESUS ZAZUETA [facility] Start: 01-23-2025 End: 01-23-2025 ambulatory DAMIAN Acharya [facility] Start: 01-23-2025 End: 01-23-20[facility] Start: 01-03-2025 ambulatory [facility] Start: 12-18-2024 End: 12-18-2024 ambulatory [facility] Start: 12-03-2024 ambulatory [facility] Start: 11-27-2024 End: 11-27-2024 ambulatory Manoj ABRAMS Facility:[facility] Start: 11-27-2024 End: 11-27-2024 Patient encounter procedure Manoj ABRAMS [facility] [place] Start: 11-18-2024 End: 11-19-2024 Non-patient / Non-visit Howard Johnston DO Work Phone: [facility] Work Phone: Start: 11-15-2024 End: 11-15-2024 ambulatory Lon Del Rosario Facility:[facility] Start: 11-15-2024 End: 11-15-2024 Departed Referred Howard Johnston DO Work Phone: [facility] Start: 11-14-2024 End: 11-14-2024 ambulatory Howard Johnston Facility:[facility] Start: 11-14-2024 End: 11-14-2024 Departed Referred Howard Johnston DO Work Phone: [facility] Start: 11-09-2024 End: 11-09-2024 [facility] Start: 11-07-2024 End: 11-07-2024 ambulatory Manoj Abrams Facility:[facility] Start: 11-07-2024 End: 11-07-2024 ambulatory Manoj ABRAMS Facility:CD:[id number] Start: 11-02-2024 ambulatory [facility] Start: 10-22-2024 ambulatory [facility] Start: 10-08-2024 ambulatory [facility] Start: 10-03-2024 End: 10-03-2024 ambulatory Maryjane Reynolds Facility:[facility] Start: 10-03-2024 End: 10-03-2024 Patient encounter procedure Manoj ABRAMS [facility] [place] Start: 09-13-2024 ambulatory [facility] Start: 09-03-2024 ambulatory [facility] Start: 08-06-2024 End: 08-06-2024 ambulatory [facility] Start: 09-24-2022 End: 09-25-[address] MARYJANE REYNOLDS Facility:[facility] Start: 02-16-2022 End: 02-16-2022 ambulatory Ashley Cox Other [facility] Other Start: 02-16-2022 Office outpatient vi sit 15 minutes Ashley Sanchezler [facility] Start: 10-26-2021 End: 10-26-2021 ambulatory Soco Hernandez Other [facility] Other Start: 10-26-2021 Office outpatient vi sit 5 minutes Soco Hernandez [facility] Start: 10-12-2021 End: 10-13-[address] MARYJANE REYNOLDS Facility:[facility] Start: 10-08-2021 Encounter for genera l adult medical examination without abnormal findings DR MARYJANE REYNOLDS [facility] Start: 10-03-2021 End: 10-04-[address] MARYJANE REYNOLDS Facility:[facility] Start: 10-03-2021 End: 10-04-2021 Encounter for general adult medical examination without abnormal findings DR MARYJANE REYNOLDS Facility:[facility] Procedures Date Procedure Procedure Detail Performing Clinician Start: 11-15-2024 Aerobic microbial culture Howard Preston [employer] Work Phone: Start: 11-15-2024 Anaerobic microbial culture Howard Preston [employer] Work Phone: Start: 11-15-2024 Gram stain microscopy Howard Johnston DO Work Phone: Start: 11-14-2024 Bacteria identified in Blood by Culture Howard Johnston DO Work Phone: Start: 11-14-2024 Urine culture Howard Preston [employer] Work Phone: Start: 11-07-2024 Colonoscopy Manoj KEYL [...] Treatment Date Care Activity Detail Author Start: 07-13-2025 Bacteria identified in Urine by Culture Urine Culture [facility] Start: 07-13-2025 Urine culture [facility] Start: 03-05-2025 Urine culture [facility] Start: 03-05-2025 Bacteria identified in Urine by Culture Urine Culture [facility] Immunizations Immunization Date Immunization Notes Care Provider Fa cility 09-29-2021 SARS-CoV-2 (COVID-19 ) mRNA BNT-162b2 vax Manoj KEYL [facility] 01-25-2021 SARS-CoV-2 (COVID-19 ) Ad26 vaccine, recombinant Manoj ABRAMS [facility] Payers Date Payer Category Payer Medicare [id number] 2024 Self-pay 2023 Private Health Insurance CLI [id number] 2021 Medicare [id number] 2.1 [id number] 1959 Unknown [id number] 2. [id number] 1955 Unknown [id number] 2.16.84 [id number] 1955 Unknown [id number] 2.16.84 [id number] 1955 Unknown [id number] 2.16.84 [id number] 1955 Unknown [id number] 2.16.8 40.1.653288.3.579.2.727 1955 Unknown [id number] 2.16.8 40.1.737533.3.579.2.727 1955 Unknown [id number] 2.16.8 40.1.620388.3.579.2.727 1955 Unknown [id number] 2.16. 840.1.306209.3.579.2.1286 1955 Unknown [id number] 2.16. 840.1.704714.3.579.2.1286 1955 Unknown [id number] 2.16. 840.1.717832.3.579.2.1286 1955 Unknown [id number] 2.16. 840.1.388341.3.579.2.1286 Unknown [id number] 2.16.8 40.1.876652.3.579.2.531 Unknown [id number] 2.16.8 40.1.924618.3.579.2.531 Unknown [id number] 2.16.8 40.1.031973.3.579.2.531 Unknown [id number] 2.16.8 40.1.932268.3.579.2.531 Unknown [id number] 2.16.8 40.1.314549.3.579.2.531 Social History Date Type Detail Facility Sex Assigned At [facility] Start: 02-16-2022 End: 10-03-2024 Tobacco smoking status Never smoked tobacco (finding) [facility] Tobacco smoking status Never [facility] Start: 02-12-2025 End: 03-07-2025 Sex Female (finding) [facility] Start: 1955 Sex Assigned At Female F [facility] Functional Status Date Assessment Result Facility 10-03-2024 Functional Status N/A [facility] [place] Clinical Notes 10-26-2021 to 07-30-2025 Note Date & Type Note Facility 07-30-2025 Note [facility] Gastroenterolog y History & Physical CHIEF COMPLAINT Chief Complaint Patient presents with Follow-up Diarrhea all weekend long, and Tuesday went to hard stool, and going 15-20 minutes today, formed stool with blood, not sure if Hemorids or not. HISTORY OF PRESENT ILLNESS: Connie Brian is a 69 y.o. female with past medical history of hypertension, diabetes mellitus for approximately 30 years, dyslipidemia, atrial fibrillation on Eliquis, and newly diagnosed liver cirrhosis. She was hospitalized in October for atrial fibrillation with rapid ventricular response in the setting of C. difficile colitis and severe dehydration, which led to volume overload and diuresis. During this hospitalization, she was noted to have melena with a hemoglobin of 4.9 g/dL requiring five units of blood transfusion. She continued to have melena for approximately two weeks post-discharge. An EGD and colonoscopy on November 06 revealed gastric lesions and a single colonic polyp, though the full report was unavailable. She was scheduled for EGD on January 29 for further evaluation of upper GI bleeding and variceal surveillance. She has had intermittent abdominal distension since the hospitalization but denies current hematemesis, hematochezia, nausea, vomiting, or abdominal pain. 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 Workup for liver disease showed negative AMA, GERMAN, IgG, A1AT, hepatitis panel, and ceruloplasmin, with iron studies suggesting iron deficiency rather than hemochromatosis. Liver ultrasound demonstrated trace ascites. She was rehospitalized in February with a hemoglobin of 5.1 g/dL and received four units of blood. She denies hematochezia but reports dark stools, abdominal distension, and early satiety. She is currently on iron supplementation and denies alcohol use. INTERVAL HISTORY 07/30/2025: The patient presents today for follow-up. Since the last visit, she underwent capsule endoscopy, which revealed a normal small bowel without angiodysplasias, polyps, or active bleeding. Based on these findings, recommendations included follow-up with hematology for further evaluation and management, as well as continued follow-up in the GI clinic. After her outpatient hematology visit, she was prescribed iron transfusions. Following the transfusions, she experienced transient diarrhea, abdominal discomfort, and belching, which have been progressively improving, followed by constipation with minor hematochezia noted on toilet paper. Her most recent hemoglobin was 7.3 g/dL on 06/14/2025. Today, she reports overall improvement in symptoms and denies jaundice, scleral icterus, hematemesis, or melena but does report abdominal distention and bloating. She is currently taking Lasix 20 mg and spironolactone 25 mg daily. Recent labs show creatinine 0.69, sodium 143, and potassium 4.7. She also reports occasional confusion and forgetfulness and is not on lactulose or rifaximin. Patient continues to abstain from alcohol, tobacco and NSAIDs. PREVIOUS LABS/IMAGING/ENDOSCOPY: Esophagogastroduodenoscopy (EGD) Procedure Note 01/29/2025 Impression: Unremarkable examination of the esophagus. 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 [facility] 07-18-2025 Note HEMATOLOGY and MEDIC AL ONCOLOGY Dr. Tosin Benitez MD / Dr. Janet Mora MD / MD Elisa Barahona Ud, AOCNP / Marly Foster CNP / Marina Montana, INSTRUMENTATION CHEMIST-CIRCUS RIDER Patient Name: Connie Brian Date of : 1955 Encounter Date: 07/18/2025 Patient Care Team: Maryjane Reynolds MD as PCP - General Unknown Joshua Orlando MD as Consulting Physician (Hematology and Oncology) IMPRESSION and ASSESSMENT: Connie Brian is a 69 y.o. female with a history of uterine cancer in which was treated with curative intent. She currently has iron deficiency anemia. Previous GI workup has not been able to determine the exact cause of her anemia but 2 AVM sites in stomach were identified and cauterized. She is coming in for further investigation of her anemia following a recent hospitalization between 07/11/25-07/14/25 where her hemoglobin was 6.3 and required transfusion of 2 units of blood and IV iron infusions. Diagnoses and all orders for this visit: Iron deficiency anemia due to chronic blood loss Gastric AVM Other fatigue - Folate; Future - Vitamin B12; Future H/O cancer of uterus RECOMMENDATIONS and PLAN: Iron deficiency anemia due to chronic blood loss symptomatic with fatigue We will defer iron deficiency anemia evaluation and treatment to be done at [facility]) close to patient home. She received 3 doses of IV iron with last dose on 07/17/25 at [facility] If continuing care with Dr. Gonzalez, repeat CBC & iron labs in 1 month to monitor RONN If ferritin <30-50, schedule iron infusion If ferritin >50, repeat labs every 3 months to monitor RONN Referral sent to Dr. Brenner if it is more convenient for the patient Can continue oral iron supplementation if it does not cause too many side effects. Can stop oral iron supplementation at any time if needed. Gastric AVM Continue follow up with Gastroenterology for need for scopes. Suggest that she follows with Dr. Catalan to discuss Watchman procedure Watchman procedure is advised from hematology standpoint due to history of gastric AVMs and current Eliquis use due to a fib Dr. Gonzalez can be consulted if clearance is necessary for this procedure Shala Shaw, MS3 As the teaching physician, I have personally performed or re-performed the history of present illness, physical exam and medical decision-making activities of the encounter and verified the medical student's documentation. I made pertinent changes as necessary to ensure accurate documentation. There may be additional comments below. Additional Comments: the above note reflects edits by me Joshua Orlando MD Hematology and Oncology July 18, 2025 I spent 40 minutes of total time on the day of the visit. This time was spent preparing for the visit, reviewing internal/external medical records, lab results, images in PACS, other clinicians' notes, independently interpreting results, seeing the patient in person, taking a history, performing an exam/evaluation, counseling and educating the patient about the diagnosis and plan, performing medical decision making, documenting in the EMR, placing orders, communicating with other members of the care team, and coordinating care. Please see the additional documentation in this note for specific details. SUBJECTIVE: HPI: 07/18/2025 Connie Brian had gotten very ill, lost her appetite, and lost ~50lbs in October 2024. Afterwards, she was feeling very low energy, unsteady on her feet, and had difficulties breathing. Since, she has followed up with a neuro urologist who discover bleeding AVMs in the gastric antrum and gastric fundus during EGD on 01/29/25 which were ablated. She had a repeat EGD with push enteroscopy on 04/25/25 which showed normal duodenum with a few non-bleeding angioectasias in the jejunum. A capsule endoscopy was performed on 06/17/25 which showed no evidence of ulcers, angiodysplasias, polyps, or active bleeding. Connie Brian is coming in after being referred by her sas sql developer's office due to low hemoglobin levels 06/13-06/14 (lowest 5.7). On 07/11, she was hospitalized at [facility] where her Hb was 6.3. There, Dr. Hoang ordered 2 units of blood and IV iron infusions which started 07/12 and ended on 07/17. He also prescribed 65mg oral iron which she takes in addition to an OTC 65mg iron supplement. Dr. Hoang has another iron infusion scheduled for 07/24 and has told the patient that she should be getting iron infusions every other week. He also sent a referral to a local snow removal/plowing, but Connie has yet to schedule an appointment with them. Since getting the iron infusions, she reports feeling perfect and denies fatigue, unsteadiness, and no SOB. She reports of one episode of bright red blood while wiping on 07/17 which is unusual for her. She reports no hematemesis or hematuria. She also reports her stools (more content not included)... [facility] 07-11-2025 Note Cardiovascular Medic [facility] SUBJECTIVE Chief Complaint Patient presents with Atrial Fibrillation Connie Brian is a 69 y.o. female here for follow-up after her recent a.fib ablation. Her friend Katherine accompanied her. PMH: a.fib s/p ablation 06/13/25, GI bleed with ablations of AVM with argon plasma coagulation 01/2025, HTN, HLD, DM HPI 07/11/2025 Since last seen she underwent an a.fib ablation. She notes she may have energy for one day then go back to feeling fatigued for 2 days. She notes her fatigue has worsened the past week or 2. She has ongoing anemia. She will be seeing GI soon for follow-up in July. She has accompanied BERRY. Denies CP, palpitations, orthopnea, PND, LE edema, syncope. Problem List[1] Medical History[2] Family History[3] Social History[4] Allergies[5] OBJECTIVE Visit Vitals BP 103/52 (BP Location: Left arm, Patient Position: Sitting) Pulse 72 Ht 1.676 m (5' 6 ) SpO2 100% BMI 29.83 kg/m??? OB Status Postmenopausal Smoking Status Never BSA 1.98 m??? Medications: Current Medications[6] Physical Exam Vitals reviewed. Constitutional: Appearance: Normal appearance. She is normal weight. HENT: Head: Normocephalic and atraumatic. Right Ear: External ear normal. Left Ear: External ear normal. Eyes: Extraocular Movements: Extraocular movements intact. Conjunctiva/sclera: Conjunctivae normal. Pupils: Pupils are equal, round, and reactive to light. Neck: Vascular: No carotid bruit. Cardiovascular: Rate and Rhythm: Normal rate and regular rhythm. Pulses: Normal pulses. Heart sounds: Normal heart sounds. Pulmonary: Effort: Pulmonary effort is normal. Breath sounds: Normal breath sounds. Abdominal: General: Bowel sounds are normal. Palpations: Abdomen is soft. Musculoskeletal: Cervical back: Neck supple. Right lower leg: No edema. Left lower leg: No edema. Skin: General: Skin is warm and dry. Comments: Bilateral groin access sites soft, nontender, no hematoma, no ecchymosis Neurological: General: No focal deficit present. Mental Status: She is alert and oriented to person, place, and time. Psychiatric: Mood and Affect: Mood normal. Behavior: Behavior normal. Thought Content: Thought content normal. Judgment: Judgment normal. Labs: No results found for: EXTCMP , BMPR1A , CBCDIF , BNP , LASAP , RED Admission on 06/13/2025, Discharged on 06/15/2025 Component Date Value Hemoglobin 06/13/2025 7.7 (L) Ventricular Rate 06/13/2025 63 Atrial Rate 06/13/2025 63 OH Interval 06/13/2025 196 QRS DURATION 06/13/2025 78 QT Interval 06/13/2025 440 QTC CALCULATION(BAZETT) 06/13/2025 450 P [place] 06/13/2025 52 R-Newburg 06/13/2025 18 T Wave [place] 06/13/2025 52 Protime 06/13/2025 15.2 (H) INR 06/13/2025 1.20 (H) Glucose POC 06/13/2025 316 (H) Glucose POC 06/13/2025 175 (H) LD 06/13/2025 137 (L) Total Bilirubin 06/13/2025 0.5 Bilirubin, Direct 06/13/2025 0.1 High Sensitivity Troponi* 06/13/2025 153 (HH) Haptoglobin 06/13/2025 140.0 Hemoglobin 06/13/2025 5.7 (LL) ABO Grouping 06/13/2025 O Rh Type 06/13/2025 POS Ab Scrn 06/13/2025 POS Ventricular Rate 06/13/2025 67 Atrial Rate 06/13/2025 67 OH Interval 06/13/2025 204 QRS DURATION 06/13/2025 82 QT Interval 06/13/2025 426 QTC CALCULATION(BAZETT) 06/13/2025 450 P [place] 06/13/2025 70 R-[place]burg 06/13/2025 18 T Wave [place] 06/13/2025 70 Auto WBC 06/13/2025 4.65 RBC 06/13/2025 2.97 (L) Hemoglobin 06/13/2025 6.7 (L) Hematocrit 06/13/2025 22.6 (L) MCV 06/13/2025 76.1 (L) MCH 06/13/2025 22.6 (L) MCHC 06/13/2025 29.6 (L) RDW 06/13/2025 16.4 (H) Platelets 06/13/2025 167 Glucose POC 06/13/2025 263 (H) Anti IgG ERICKA 06/13/2025 NEG Anti C3 ERICKA 06/13/2025 NEG Antibody ID 06/13/2025 K Hemoglobin 06/13/2025 6.6 (L) PRODUCT CODE 06/13/2025 [id number] Unit Number 06/13/2025 [id number] Unit ABO 06/13/2025 O Unit Rh 06/13/2025 POS Crossmatch Interpretation 06/13/2025 COMP Dispense Status 06/13/2025 TR Blood Expiration Date 06/13/[id number] Product Blood Type 06/13/2025 5100 Unit Volume 06/13/2025 300 PRODUCT CODE 06/13/2025 [id number] Unit Number 06/13/2025 [id number] Unit ABO 06/13/2025 O Unit Rh 06/13/2025 POS Crossmatch Interpretation 06/13/2025 COMP Dispense Status 06/13/2025 RE Blood Expiration Date 06/13/2025 [id number] Product Blood Type 06/13/2025 5100 Unit Volume 06/13/2025 300 PRODUCT CODE 06/13/2025 [id number] Unit Number 06/13/2025 [id number] Unit ABO 06/13/2025 O Unit Rh 06/13/2025 POS Crossmatch Interpretation 06/13/2025 COMP Dispense Status 06/13/2025 RE Blood Expiration Date 06/13/2025 [id number] Product Blood Type 06/13/2025 5100 Unit Volume 06/13/2025 300 PRODUCT CODE 06/13/2025 [id number] Unit Number 06/13/2025 [id number] Unit ABO 06/13/2025 O Unit Rh 06/13/2025 POS Crossmatch Interpretation 06/13/2025 COMP Dispense Status 06/13/2025 (more content not included)... [facility] 07-11-2025 Note Patient is here toda y for a follow up A-fib ablation. Patient states she feels weak and SOB, patient states one day she feels good then then she is down for 2 days and can't stay awake. Patient states she is wondering if her hemoglobins is down. Patient denies chest pain, palpitation/fast heart rate, SOB, BERRY, leg swelling/leg pain., dizziness/lightheaded. Patient complains of memory loss and tremors the last couple of months. Patient would like to talk about Amiodarone, patient stopped it after 14 days, but is confused as to if she needs to continue with it. Patient states she will be seeing gastrology and hematology in the next couple of weeks Review of Systems Constitutional: Positive for malaise/fatigue. Respiratory: Positive for shortness of breath. Neurological: Positive for tremors. Psychiatric/Behavioral: Positive for memory loss. 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 [facility] 06-13-2025 Note -- Attestation signed by Rogers Catalan [...] call with any questions. Angie Haque PGY-4 Instructor Product Inspection [facility] 06-13-2025 Note ATRIAL FIBRILLATION ABLATION PROCEDURE NOTE DATE OF PROCEDURE: 06/13/2025 PERFORMING PHYSICIAN: Dr. Rogers Catalan ALLOPATHIC DOCTOR: REJI CONSENT: Patient NAME OF THE PROCEDURE: [...] with [place] seal. She was transferred to [facility] for observation. LA baseline (mmHg) 17/11 HR [...] of sh (more content not included)... [facility] 06-13-2025 Note Patient: Connie A Sa nchez Procedure Summary Date: 06/13/25 Room / Location: [facility] PASTRYCOOK 1 EP / [facility] (Cath) Anesthesia Start: 0850 Anesthesia [...] per anesthesia protocol. No notable events documented. [facility] 06-13-2025 Note Patient: Connie A Sa nchez Procedure Summary Date: 06/13/25 Room / Location: [facility] PASTRYCOOK 1 / [facility] (Cath) Anesthesia Start: 0850 Anesthesia [...] observation Transport: uneventful Patient condition is: stable [facility] 06-13-2025 Note Patient: Connie A Sa nchez Procedure Information Anesthesia Start Date/Time: 06/13/25 0850 Procedure: Ablation a-fib paroxysmal Location: [facility] PASTRYCOOK 1 EP / [facility] HV VASCULAR LAB (Cath) Providers: Rogers Catalan MD [...] Value Ventricular Rate 63 Atrial Rate 63 OH Interval 196 QRS DURATION 78 QT Interval 440 QTC CALCULATION(BAZETT) 450 P [place] 52 R-[place]burg 18 T Wave [place] 52 Impression Normal sinus rhythm Normal ECG [...] use: Not Currently ??? Drug use: Never [facility] 06-13-2025 Note Airway Date/Time: 06/13/2025 9:06 AM Reason: elective Airway not difficult General Information and Staff Patient location during procedure: OR Anesthesiologist: Dayo Thomson MD Resident/PLASTIC PROCESS TECHNICIAN/CAA: Jhonathan Hernandez MD Performed: resident/PLASTIC PROCESS TECHNICIAN/CAA Patient Condition Indications for airway management: anesthesia [...] 1 Number of other approaches attempted: 0 [facility] 05-28-2025 Note [facility] Gastroenterolog gudelia Brian is a 69 y.o. female presenting [...] this pleasant patient???s care. Jessica Oates CNP [facility] 04-23-2025 Note [place] Electrophysiology Consult Note [facility] Clinic Reason for visit: Afib [...] 02/26/25 Patient here for follow up from [facility]. Patient had fluid taken off [...] palpitations. She was recently seen at the [facility] for A-fib RVR as she was admitted for diarrhea and palpitations. She was found to have C. difficile and was treated with antibiotics and converted to sinus rhythm on her own. She states she normally would get palpitations when she drinks caffeine and typically avoids caffeine, the day of her admission she believes she was given caffeinated coffee at [facility] and then began experience palpitations while [...] show any evidence of reversible ischemia. below [id number] at least 4 for age, gender, hypertension, [...] on file Intimate Partner Violence: Unknown (01/12/2024) [place] Safety & Environment Fear of Current or Ex-Partner: Not on file Emotionally Abused: Not on file Physically Abused: Not on file Sexually Abused: Not on file Physically or Sexually Abused: Not on file Depression: Not on file Housing Stability: Not on file Utilities: Not on file Health Literacy: Not on file Allergies: Allergies Allergen Reactions Sulfa (Sulfona (more content not included)... [facility] 04-10-2025 Note -- Attestation signed by Damian Gomez MD at 04/10/2025 8:58 PM Seen and discussed with fellow, agree with assessment and plan. -- [facility] Gastroenterology History & Physical CHIEF COMPLAINT [...] Colonoscopy was done at Dr. Turpin at [facility] 11/06/2025 EGD 01/29/25: Findings: The examination of [...] Past Surgical Hi (more content not included)... [facility] 02-26-2025 Note [place] Electrophysiology Consult Note [facility] Clinic Reason for visit: Afib 02/26/25 Patient here for follow up from [facility]. Patient had fluid taken off [...] palpitations. She was recently seen at the [facility] for A-fib RVR as she was admitted for diarrhea and palpitations. She was found to have C. difficile and was treated with antibiotics and converted to sinus rhythm on her own. She states she normally would get palpitations when she drinks caffeine and typically avoids caffeine, the day of her admission she believes she was given caffeinated coffee at [facility] and then began experience palpitations while [...] show any evidence of reversible ischemia. below [id number] at least 4 for age, gender, hypertension, [...] on file Intimate Partner Violence: Unknown (01/12/2024) [place] Safety [place] Environment Fear of Current or [...] 0 diclofenac (Voltaren) (more content not included)... [facility] 02-12-2025 Evaluation note Diagnosis Onset Date Resolution Skin tear of left lower leg without complication noneactive February 12, 2025 12:04pm Skin tear of left forearm without complication noneactive February 12, 2025 12:04pm [facility] Work Phone: [phone]) 192-559803-11-2025 NotePatient: Connie Brian Procedure Summary Date: 01/29/25 Room / Location: [facility] Endoscopy Anesthesia Start: 1155 Anesthesia Stop: [...] PACU per anesthesia protocol. No notable events documented.[facility]03-11-2025 Note Patient: Connie Brian Procedure Information Date/Time: 01/29/25 1200 Scheduled providers: Jesus Zazueta MD; Henry Bull MD; KAILA Jeronimo Procedure: EGD Location: [facility] Endoscopy Relevant Problems Cardio ECHO 2023 LEFT [...] patient. Plan discussed with KAILA. [facility] Attestation signed by Damian Gomez MD at 01/23/2025 3:48 PM Seen and discussed with fellow, agree with assessment and plan. [facility] Gastroenterology New Patient Visit - History & Physical CHIEF COMPLAINT Chief Complaint Patient presents with New Patient EGD scheduled, was at [facility] and sent for an EGD but [...] LABS/IMAGING/ENDOSCOPY: EGD and Colonoscopy was done in [facility] 11/06/2025 HISTORY: Problem list: Patient Active [...] Medications: Current Outpatient Medic (more content not included)...[facility]01-28-2025 NoteUT Electrophysiology Consult Note [facility] Clinic Reason for visit: Patient here for follow up [facility] per Dr. Khalil. 12/19/24 She was admitted again for afib [...] palpitations. She was recently seen at the [facility] for A-fib RVR as she was admitted for diarrhea and palpitations. She was found to have C. difficile and was treated with antibiotics and converted to sinus rhythm on her own. She states she normally would get palpitations when she drinks caffeine and typically avoids caffeine, the day of her admission she believes she was given caffeinated coffee at [facility] and then began experience palpitations while [...] show any evidence of reversible ischemia. below [id number] at least 4 for age, gender, hypertension, [...] on file Intimate Partner Violence: Unknown (01/12/2024) [place] Safety [place] Fear of Current or [...] the morning. venlafaxine XR (more content not included)...[facility] 11-09-2024 NoteUT Cardiology - [facility] Clinic Subjective Connie Brian is [...] RVR when she was admitted to the [facility] with diarrhea due to C. [...] 83 Ht 1.676 m (more content not included)...[facility] 10-03-2024 NoteGeneral Surgery Office/Clinic Note Chief Complaint consultation for anemia HPI Staff 68 year old female presents on consultation from Dr. Reynolds for anemia. Labs completed 09/28 with H/H [...] Eliquis 5 mg oral (more content not included)...[facility] Comment on above:Result Comment: Electronically Signed By: JOSE ALBERTO MARRERO, Manoj Wilson\Date and Time Signed: 10/03/24 14:54 [id number] NoteLOOP IMPLANT PROCEDURE NOTE DATE OF PROCEDURE: 08/06/24 PERFORMING PHYSICIAN: Dr. Rogers Catalan ALLOPATHIC DOCTOR: REJI INDICATIONS FOR PROCEDURE: 1. SVT/AF surveillance [...] the sternum on the left using the Woisio tool. The loop recorder was then injected [...] wet the incision. Rogers Catalan MD Cardiac Electrophysiology.[facility]03-29-2022 Evaluation note* Encounter Date Diagnosis Assessment [...] exam and duration of symptoms. May use Troy or Flonase as directed. May use Zofran [...] Patient care instructions given in writting by [facility] Care At Home document [facility] 12-06-2021 Evaluation note* Encounter Date Diagnosis [...] Patient care instructions given in writting by [facility] Care At Home document. [facility] Other Evaluation + Plan note No data available for this section [facility] Evaluation noteNo assessment information available [facility] Work Phone: History general Narrative - Reported* Type Description Date Medical History Diabetes Medical History HTN (hypertension) Medical History Anxiety Medical History Uterine cancer Surgical History hysterectomy Surgical History C section Surgical History tonsillectomy Surgical History appendectomy Surgical History cholecystectomy Surgical History colonoscopy Surgical History biopsy Hospitalization History pneumonia Hospitalization History see above [facility] Hospital Discharge instructions No data available for this section [facility] Progress note No data available for this section [facility] Reason for referral (narrative)No reason for referral [facility] Work Phone: Summary Purpose Family History No Family History [...] without compli cation February 12, 2025 12:04pm Chief Complaint Admit Date Unknown July 13, 2025 12 :21am Additional Source Comments REASON FOR VISIT (unrecogniz ed section and content) #14 RED BUICK, EXPOSED, COVI D Nurse Visit- Self PayBLACK CRV, B/A, SOB, COUGH INFORMATION SOURCE (unrecogn ized section and content) DATE CREATED AUTHOR 10/01/2022 [facility] DATE CREATED AUTHOR AUTHOR'S ORGANIZ ATION 11/30/2024 [facility] DATE CREATED AUTHOR AUTHOR'S ORGANIZ ATION 07/16/2025 [facility] DATE CREATED AUTHOR AUTHOR'S ORGANIZ ATION 08/01/2025 [facility] DATE CREATED AUTHOR AUTHOR'S ORGANIZ ATION 08/05/2025 [facility] Patient Care team informatio n (unrecognized [...] 18, 2024 End: November 19, 2024 Maryjane Reynolds MD Referring Provider Active Sta rt: November 18, 2024 End: November 19, 2024 Team Status: Inactive Member Role Status Dates Ashley Cox APRN Attending Provider Active Start: February 12, 2025 End: February 12, 2025 NON STAFF Primary Care Provider Active Start: February 12, 2025 End: February 12, 2025 Team Status: Inactive Member Role Status Dates Maryjane Reynolds MD Attending Provider Active Sta rt: March 05, 2025 End: March 05, 2025 Team Status: Inactive Member Role Status Dates Joan Hoang MD Attending Provider Active Sta rt: July 13, 2025 End: July 13, 2025 Goals (unrecognized section and content) Goals [...] BE BASED ON THE PRIMARY CLINICAL RECORDS. [facility]. provides no warranty or guarantee of the accuracy or completeness of information in this document.
--- OUTSIDE RECORDS SUMMARY | 2025-08-07 08:54 | XMS_ITS | Patient Health Record ---
Author Organization [facility] [place] Address [address] [place] [address] Care Team Providers Care Interventional Tech Name Role Phone Shaq Valencia Primary Care Provider Shannan Swain Unavailable [phone] Allergies Allergen (clinical drug ingredient) Drug/Non Drug Allergy documented on EMR Reaction Allergy Type Onset Date Status Substance with sulfonamide structure and antibacterial mechanism of action (substance) Sulfa Antibiotics hives Drug Allergy Active Results Component Value Reference Range Notes CBC AUTO DIFF Reviewed date:10/01/2024 06:50:54 PM Interpretation: Performing Lab: Notes/Report: [facility] , White Blood Count 5.4 4.0-11.0 10 [...] Performing Lab: see note ML - [facility] LB CBC AUTO DIFF Reviewed date:09/21/2024 09:21:49 PM Interpretation: Performing Lab: Notes/Report: [facility] , White Blood Count 4.8 4.0-11.0 10 [...] Performing Lab: see note ML - [facility] LB FREE T3 Reviewed date:09/21/2024 09:21:49 PM Interpretation: Performing Lab: Notes/Report: [facility] , Free T3 2.28 2.18-3.98 pg/mL Performing Lab: see note ML - [facility] LB LIPID PROFILE Reviewed date:09/21/2024 09:21:49 PM Interpretation: Performing Lab: Notes/Report: [facility] , Triglycerides 111 <=150 mg/dL Cholesterol 118 [...] RISK Performing Lab: see note ML - [facility] PROF 14(COMP METB) Reviewed date:09/21/2024 09:21:49 PM Interpretation: Performing Lab: Notes/Report: [facility] , Sodium 143 136-145 mmol/L Potassium 3.9 [...] Performing Lab: see note ML - [facility] LB T4 Reviewed date:09/21/2024 09:21:49 PM Interpretation: Performing Lab: Notes/Report: [facility] , T4 Thyroxine 8.70 4.80-13.90 ug/dL Performing Lab: see note ML - [facility] LB TSH Reviewed date:09/21/2024 09:21:49 PM Interpretation: Performing Lab: Notes/Report: [facility] , Thyroid Stimulating Hormone 2.570 0.358-3.740 uIU/mL Performing Lab: see note ML - [facility] LB XR HAND LT MIN 3V Reviewed date:11/04/2024 08:21:50 PM Interpretation: Performing Lab: Notes/Report: Source Facility: [place] [address] XRay Report Signed Patient: CONNIE BRIAN MR#: [id number] : 1955 Acct:[id number] Age/Sex: 68 / F ADM Date: 11/02/24 Loc: ER Attending Dr: Ordering Physician: Sadie Cortes Date of Service: 11/02/24 Procedure(s): XR hand LT min 3V Accession Number(s): [id number] cc: Harry Valencia M.D.; Sadie Cortes [place] [address] Patient Name: CONNIE RBIAN MRN: [id number] date: 1955 Sex: F Assigned Patient Location: ER Current Patient Location: ER Accession/Order Number: [id number] Exam Date: 11/02/2024 09:45 Report Date: 11/02/2024 [...] Signed By: 11/02/24 1023 DD/ 1020 TD/TT: Mobile Tester: ECG 12 lead Reviewed date:11/06/2024 12:23:59 PM Interpretation: Performing Lab: Notes/Report: Source Facility: [place] [address] Electrocardiograph Report Signed Patient: CONNIE BRIAN MR#: [id number] : 1955 Acct:[id number] Age/Sex: 68 / F ADM Date: 11/02/24 Loc: ER Attending Dr: Ordering Physician: Sadie Cortes Date of Service: 11/02/24 Procedure(s): ECG 12 lead Accession Number(s): [id number] cc: [facility] Test Date: 2024-11-02 Pat Name: CONNIE BRIAN Department: Room: - Gender: Female 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 Signed By: 11/06/24 0652 DD/ 0830 TD/TT: Mobile Tester: CBC AUTO DIFF Reviewed date:11/15/2024 06:06:54 PM Interpretation: Performing Lab: Notes/Report: [facility] , White Blood Count 13.3 4.0-11.0 10 [...] fL Performing Lab: see note ML - [facility] LB CELL COUNT CSF Reviewed date:11/15/2024 06:06:54 PM Interpretation: Performing Lab: Notes/Report: [facility] , CSF Tube # 3 CSF Clarity CLEAR CLEAR CSF Color PINK COLORLESS CSF Total Volume 8.5 White Blood Cell CSF 2 0-5 cubic mm Red Blood Cell CSF 1638 0-0 cubic mm Performing Lab: see note ML - [facility] LB CRP Reviewed date:11/15/2024 06:06:54 PM Interpretation: Performing Lab: Notes/Report: Comment off am blood if possible [facility] , C Reactive Protein 28.28 <=0.50 mg/dL Performing Lab: see note ML - [facility] LB IRON AND TIBC Reviewed date:11/15/2024 06:06:54 PM Interpretation: Performing Lab: Notes/Report: [facility] , Iron 9.0 50.0-170.0 ug/dL Total Iron Binding Capacity 226.0 250.0-450.0 ug/dL Percent Iron Saturation 4.0 Performing Lab: see note ML - [facility] LB LACTATE or LACTIC ACID Reviewed date:11/15/2024 06:06:54 PM Interpretation: Performing Lab: Notes/Report: [facility] , Lactate/Lactic Acid 4.5 0.4-2.0 mmol/L RESULT S CALLED TO MELECIO GRACE RN Performing Lab: see note ML - [facility] LB MAGNESIUM Reviewed date:11/15/2024 06:06:54 PM Interpretation: Performing Lab: Notes/Report: [facility] , Magnesium 2.0 1.8-2.4 mg/dL Performing Lab: see note - [facility] LB PROF 14(COMP METB) Reviewed date:11/15/2024 06:06:54 PM Interpretation: Performing Lab: Notes/Report: [facility] , Sodium 132 136-145 mmol/L Potassium 4.7 [...] 0.4 Performing Lab: see note ML - [facility] LB Erythrocyte Sedimentation Ra te Reviewed date:11/15/2024 06:06:54 PM Interpretation: Performing Lab: Notes/Report: Comment off am blood if possible [facility] , Erythrocyte Sedimentation Rate >130 <=30 mm/hr Performing Lab: see note ML - [facility] LB Manual Differential Reviewed date:11/15/2024 06:06:54 PM Interpretation: Performing Lab: Notes/Report: [facility] , Segmented Neutrophils % Manual 84.0 43.0-75.0 [...] 10 3/uL Basophils Abs Manual 0.00 0.00-0.10 10 3/uL Metamyelocytes Absolute Manual 0.13 Dohle Bodies 1+ Performing Lab: see note ML - [facility] LB Troponin I High Sensitivity Reviewed date:11/15/2024 06:06:54 PM Interpretation: Performing Lab: Notes/Report: Comment from labs this am [facility] , Troponin I High Sensitivity 11.9 4.0-51.3 [...] INFORMATION. Performing Lab: see note ML - [facility] LB Reticulocyte Pct Auto Reviewed date:11/15/2024 06:06:54 PM Interpretation: Performing Lab: Notes/Report: [facility] , Reticulocyte Pct Auto 2.22 0.60-3.10 % Performing Lab: see note ML - [facility] LB SARS-CoV-2 Ag* Reviewed date:11/15/2024 06:06:54 PM Interpretation: Performing Lab: Notes/Report: [facility] , SARS-CoV-2 Ag NEGATIVE NEGATIVE This test [...] Performing Lab: see note ML - [facility] LB Box Test Reviewed date:11/18/2024 03:05:02 PM Interpretation: Performing Lab: Notes/Report: CSF TUBE #2 FOR CULTURE [facility] , BOX Test Sent Out CSF CULTURE BOX Test Reference Lab [facility] BOX Test Date Sent 11/15/24 BOX Test Result SEE SCANNED REPORT Performing Lab: see note ML - [facility] LB DIGOXIN Reviewed date:11/17/2024 08:58:56 PM Interpretation: Performing Lab: Notes/Report: [facility] , Digoxin 0.8 0.9-2.0 ng/mL Performing Lab: see note ML - [facility] LB PROF 14(COMP METB) Reviewed date:11/17/2024 08:58:56 PM Interpretation: Performing Lab: Notes/Report: [facility] , Sodium 139 136-145 mmol/L Potassium 3.7 [...] Ratio 0.3 Performing Lab: see note - [facility] Prothrombin Time INR Reviewed date:11/17/2024 08:58:56 PM Interpretation: Performing Lab: Notes/Report: [facility] , Prothrombin Time 12.4 9.0-11.6 sec INR 1.19 DESIRED INR: 2.0-3.0 CONDITIONS NOT LISTED BELOW 2.5-3.5 FOR PROSTHETIC HEART VALVE REPLACEMENT 2.5-3.5 RECURRENT THROMBOSIS Performing Lab: see note [facility] UA RANDOM W or MICROSCOPIC Reviewed date:12/30/2024 11:28:24 AM Interpretation: Performing Lab: Notes/Report: [facility] , Color Urine LT. YELLOW YELLOW Clarity Urine CLEAR CLEAR Specific [place] Urine 1.010 1.005-1.025 pH Urine 7.0 5.0-9.0 [...] Indicated YES Performing Lab: see note - [facility] Prothrombin Time INR Reviewed date:12/30/2024 11:28:24 AM Interpretation: Performing Lab: Notes/Report: [facility] , Prothrombin Time 13.8 9.0-11.6 sec INR 1.34 DESIRED INR: 2.0-3.0 CONDITIONS NOT LISTED BELOW 2.5-3.5 FOR PROSTHETIC HEART VALVE REPLACEMENT 2.5-3.5 RECURRENT THROMBOSIS Performing Lab: see note - [facility] Troponin I High Sensitivity Reviewed date:12/30/2024 11:28:24 AM Interpretation: Performing Lab: Notes/Report: [facility] , Troponin I High Sensitivity 11.3 4.0-51.3 [...] Performing Lab: see note ML - [facility] LB XR chest 2V Reviewed date:12/30/2024 11:28:24 AM Interpretation: Performing Lab: Notes/Report: Source Facility: [place] [address] XRay Report Signed Patient: CONNIE BRIAN MR#: [id number] : 1955 Acct:[id number] Age/Sex: 69 / F ADM Date: 12/28/24 Loc: ER Attending Dr: Ordering Physician: Vicente Salomon Date of Service: 12/28/24 Procedure(s): XR chest 2V Accession Number(s): [id number] cc: Harry Valencia M.D.; Vicente Salomon [place] [address] Patient Name: CONNIE BRIAN MRN: [id number] date: 1955 Sex: F Assigned Patient Location: ED.MAIN Current Patient Location: ER Accession/Order Number: [id number] Exam Date: 12/28/2024 11:41 Report Date: 12/28/2024 [...] Signed By: 12/28/24 1206 DD/ 1203 TD/TT: Mobile Tester: CBC no Diff (Hemogram) Reviewed date:12/30/2024 11:28:24 AM Interpretation: Performing Lab: Notes/Report: [facility] , White Blood Count 7.1 4.0-11.0 10 [...] fL Performing Lab: see note ML - [facility] LB Urine Culture, Routine Reviewed date:01/02/2025 [...] Status Urine Culture, Routine the oral agents cefaclor, cefdinir, cefpodoxime, Urine Culture, Routine Organism: Gram [...] KAL Status Urine Culture, Routine Performed at: [facility] Urine Culture, Routine Organism: Gram negative trang : O:ECMS Isolated O:GNR Isolated Organism: 1.1 Antibiotic Interpretation KAL Status Urine Culture, Routine [address], [place], [place] [id number] Urine Culture, Routine Organism: Gram negative trang : O:ECMS Isolated O:GNR Isolated Organism: 1.1 Antibiotic Interpretation KAL Status Urine Culture, Routine Clinical Leader: Alvaro Garcias PhD, Phone: [phone] Urine Culture, Routine Organism: Gram negative trang [...] Interpretation KAL Status Urine Culture, Routine Trimethoprim/Sulf ameth oxazole S F Urine Culture, Routine Organism: Gram negative trang : O:ECMS Isolated O:GNR Isolated Organism: 1.1 Antibiotic Interpretation KAL Status Urine Culture, Routine Piperacillin/Tazo bacta m S F Urine Culture, Routine Organism: Gram negative trang : O:ECMS Isolated O:GNR Isolated Organism: 1.1 Antibiotic Interpretation KAL Status Performing Lab: see note LC - [facility] LB SEE REPORT - Core Mounter Id information not found for OBX-specific bee producer legend Type and Screen Reviewed date:12/30/2024 05:22:56 PM Interpretation: Performing Lab: Notes/Report: [facility] , Blood Type O Positive Antibody Screen NEGATIVE Packed Red Blood Cells Reviewed date:12/30/2024 05:22:56 PM Interpretation: Performing Lab: Notes/Report: Packed Red Blood Cells [id number] ON RC TRANSFUSED 12/28/24 1318 [id number] ON RC TRANSFUSED 12/28/24 1721 [id number] OP RC TRANSFUSED 12/30/24 1045 [id number] OP RC TRANSFUSED 12/29/24 1103 [id number] OP RC TRANSFUSED 12/29/24 1329 [id number] OP RC NOT AVAILABLE PROF 14(COMP METB) Reviewed date:12/30/2024 11:28:24 AM Interpretation: Performing Lab: Notes/Report: [facility] , Sodium 141 136-145 mmol/L Potassium 4.8 [...] Performing Lab: see note ML - [facility] LB PTT Reviewed date:12/30/2024 11:28:24 AM Interpretation: Performing Lab: Notes/Report: [facility] , Partial Thromboplastin Time 33.9 22.3-36.2 sec Performing Lab: see note ML - [facility] LB PROF CHEM 8 (BAS METB) Reviewed date:12/30/2024 11:28:24 AM Interpretation: Performing Lab: Notes/Report: [facility] , Sodium 141 136-145 mmol/L Potassium 5.4 [...] mg/dL Performing Lab: see note ML - [facility] LB MAGNESIUM Reviewed date:12/30/2024 11:28:24 AM Interpretation: Performing Lab: Notes/Report: [facility] , Magnesium 2.2 1.8-2.4 mg/dL Performing Lab: see note - [facility] LB LIVER PROFILE Reviewed date:12/30/2024 11:28:24 AM Interpretation: Performing Lab: Notes/Report: [facility] , Bilirubin Total 1.1 0.2-1.0 mg/dL Bilirubin Direct 0.5 0.0-0.2 mg/dL Aspartate Amino Transferase 17 15-37 U/L Alanine Aminotransferase 11 14-59 U/L Alkaline Phosphatase 105 46-116 U/L Total Protein 6.8 6.4-8.2 g/dL Albumin Level 2.4 3.4-5.0 g/dL Globulin 4.4 Albumin Globulin Ratio 0.5 Performing Lab: see note - [facility] US right upper quadrant Reviewed date:02/03/2025 03:26:35 PM Interpretation: Performing Lab: Notes/Report: Source Facility: [place] [address] Ultrasound Report Signed Patient: CONNIE BRIAN MR#: [id number] : 1955 Acct:[id number] Age/Sex: 69 / F ADM Date: 02/01/25 Loc: Attending Dr: DAMIAN MCCARTHY Ordering Physician: DAMIAN MCCARTHY Date of Service: 02/01/25 Procedure(s): US right upper quadrant Accession Number(s): [id number] cc: Harry Valencia M.D.; DAMIAN MCCARTHY [place] [id number] Patient Name: CONNIE BRIAN MRN: [id number] date: 1955 Sex: F Assigned Patient Location: Current Patient Location: US Accession/Order Number: [id number] Exam Date: 02/01/2025 09:29 Report Date: 02/01/2025 [...] Lola Contreras M.D.02/01/2025 9:38 AM Dictation Location: [place] [address] Electronically authenticated by: [id number] Y Date: 02/01/2025 09:38 Dictated By: Lola Contreras M.D. Signed By: 02/01/2541 DD/ TD/TT: Mobile Tester: HEMOGRAM AND PLATEL Reviewed date:12/30/2024 11:28:24 AM Interpretation: Performing Lab: Notes/Report: [facility] , Hemoglobin 4.9 12.0-16.0 g/dL RESULTS LOREDO D TO DR. SALOMON AT 1217 Hematocrit 18.1 36.0-48.0 % RESULTS CALLED TO DR. SALOMON AT 1217 Performing Lab: see note ML - [facility] LB CBC AUTO DIFF Reviewed date:12/30/2024 11:28:24 AM Interpretation: Performing Lab: Notes/Report: [facility] , White Blood Count 6.2 4.0-11.0 10 [...] 3/uL Performing Lab: see note ML - [facility] LB BNP Reviewed date:12/30/2024 11:28:24 AM Interpretation: Performing Lab: Notes/Report: [facility] , NT Pro B Type Natriuretic Pept 897.0 <=900.0 pg/mL Performing Lab: see note ML - [facility] LB AMMONIA Reviewed date:12/30/2024 11:28:24 AM Interpretation: Performing Lab: Notes/Report: [facility] , Ammonia 22 11-32 umol/L Performing Lab: see note ML - [facility] LB PROF 14(COMP METB) Reviewed date:11/19/2024 08:36:55 PM Interpretation: Performing Lab: Notes/Report: [facility] , Sodium 141 136-145 mmol/L Potassium 3.8 [...] 0.3 Performing Lab: see note ML - [facility] LB DIGOXIN Reviewed date:11/19/2024 08:36:55 PM Interpretation: Performing Lab: Notes/Report: [facility] , Digoxin 0.9 0.9-2.0 ng/mL Performing Lab: see note ML - [facility] LB CBC AUTO DIFF Reviewed date:11/19/2024 08:36:55 PM Interpretation: Performing Lab: Notes/Report: [facility] , White Blood Count 9.0 4.0-11.0 10 [...] 3/uL Performing Lab: see note ML - [facility] LB BNP Reviewed date:11/19/2024 08:36:55 PM Interpretation: Performing Lab: Notes/Report: [facility] , NT Pro B Type Natriuretic Pept 4463.0 <=900.0 pg/mL RESULTS CALLED TO Jaymie Lopez RN Performing Lab: see note [facility] PROF 14(COMP METB) Reviewed date:11/18/2024 03:05:02 PM Interpretation: Performing Lab: Notes/Report: [facility] , Sodium 135 136-145 mmol/L Potassium 4.1 [...] 0.3 Performing Lab: see note ML - [facility] LB DIGOXIN Reviewed date:11/18/2024 03:05:02 PM Interpretation: Performing Lab: Notes/Report: [facility] , Digoxin 1.0 0.9-2.0 ng/mL Performing Lab: see note ML - [facility] LB BNP Reviewed date:11/18/2024 03:05:02 PM Interpretation: Performing Lab: Notes/Report: [facility] , NT Pro B Type Natriuretic Pept 4517.0 <=900.0 pg/mL RESULTS CALLED TO JAYMIE LPOEZ RN Performing Lab: see note ML - [facility] LB PTT Reviewed date:11/17/2024 08:58:56 PM Interpretation: Performing Lab: Notes/Report: [facility] , Partial Thromboplastin Time 31.6 22.3-36.2 sec Performing Lab: see note ML - [facility] LB CBC AUTO DIFF Reviewed date:11/17/2024 08:58:56 PM Interpretation: Performing Lab: Notes/Report: [facility] , White Blood Count 11.6 4.0-11.0 10 [...] Performing Lab: see note ML - [facility] LB BNP Reviewed date:11/17/2024 08:58:56 PM Interpretation: Performing Lab: Notes/Report: [facility] , NT Pro B Type Natriuretic Pept 9918.0 <=900.0 pg/mL RESULTS CALLED TO MELECIO GRACE RN Performing Lab: see note ML - [facility] LB Type and Screen Reviewed date:03/07/2025 09:11:26 PM Interpretation: Performing Lab: Notes/Report: [facility] , Blood Type O Positive Antibody Screen POSITIVE Troponin I High Sensitivity Reviewed date:03/05/2025 04:11:43 PM Interpretation: Performing Lab: Notes/Report: [facility] , Troponin I High Sensitivity 10.9 4.0-51.3 [...] INFORMATION. Performing Lab: see note ML - [facility] LB Manual Differential Reviewed date:11/17/2024 08:58:56 PM Interpretation: Performing Lab: Notes/Report: [facility] , Segmented Neutrophils % Manual 90.0 43.0-75.0 [...] 10 3/uL Basophils Abs Manual 0.00 0.00-0.10 10 3/uL Performing Lab: see note - [facility] LB Prothrombin Time INR Reviewed date:11/17/2024 08:58:56 PM Interpretation: Performing Lab: Notes/Report: [facility] , Prothrombin Time 13.5 9.0-11.6 sec INR 1.31 DESIRED INR: 2.0-3.0 CONDITIONS NOT LISTED BELOW 2.5-3.5 FOR PROSTHETIC HEART VALVE REPLACEMENT 2.5-3.5 RECURRENT THROMBOSIS Performing Lab: see note ML - [facility] LB ECG 12 lead Reviewed date:03/06/2025 09:53:01 AM Interpretation: Performing Lab: Notes/Report: Source Facility: [place] [address] Electrocardiograph Report Signed Patient: CONNIE BRIAN MR#: [id number] : 1955 Acct:[id number] Age/Sex: 69 / F ADM Date: 03/05/25 Loc: [place] 222-[address]: Harry Valencia M.D. Ordering Physician: Curly Suarez M.D. 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 Measurements Intervals [place] Rate: 64 P: 55 FL: 198 QRS: 75 QRSD: 76 T: 90 QT: 384 QTc: 393 Interpretive Statements 1100 Sinus rhythm 4068 Nonspecific Twave abnormality 9130 borderline ECG Compared to ECG 12/28/2024 19:24:10 Ventricular premature complex(es) no longer present Electronically Signed On 03-05-2025 19:33:52 EDT by RUFINA CROUCH M.D. Dictated By: RUFINA CROUCH Signed By: 03/05/251933 DD/ 1453 TD/TT: Mobile Tester: LACTATE or LACTIC ACID Reviewed date:03/06/2025 09:53:01 AM Interpretation: Performing Lab: Notes/Report: Y [facility] , Lactate/Lactic Acid 4.5 0.4-2.0 mmol/L RESULT S CALLED TO RAINA BLACKMON RN at 1854 Performing Lab: see note ML - [facility] LB LACTATE or LACTIC ACID Reviewed date:03/06/2025 09:53:01 AM Interpretation: Performing Lab: Notes/Report: [facility] , Lactate/Lactic Acid 3.9 0.4-2.0 mmol/L RESULT S CALLED TO MARIA C HARGROVE RN at 2136 Performing Lab: see note ML - [facility] LB AMMONIA Reviewed date:03/06/2025 09:53:01 AM Interpretation: Performing Lab: Notes/Report: [facility] , Ammonia 66 11-32 umol/L RESULTS CALLED TO SOILA WEBBER RN @BY Zo Juarez at 0608 Performing Lab: see note ML - [facility] LB PTT Reviewed date:11/17/2024 08:58:56 PM Interpretation: Performing Lab: Notes/Report: [facility] , Partial Thromboplastin Time 36.7 22.3-36.2 sec Performing Lab: see note ML - [facility] LB MAGNESIUM Reviewed date:03/06/2025 09:53:01 AM Interpretation: Performing Lab: Notes/Report: [facility] , Magnesium 1.9 1.8-2.4 mg/dL Performing Lab: see note ML - [facility] LB PROF 14(COMP METB) Reviewed date:03/06/2025 09:53:01 AM Interpretation: Performing Lab: Notes/Report: [facility] , Sodium 137 136-145 mmol/L Potassium 5.6 [...] 0.7 Performing Lab: see note ML - [facility] PROF 14(COMP METB) Reviewed date:11/17/2024 08:58:56 PM Interpretation: Performing Lab: Notes/Report: [facility] , Sodium 139 136-145 mmol/L Potassium 4.3 [...] 0.3 Performing Lab: see note ML - [facility] DIGOXIN Reviewed date:11/17/2024 08:58:56 PM Interpretation: Performing Lab: Notes/Report: [facility] , Digoxin 0.8 0.9-2.0 ng/mL Performing Lab: see note - [facility] CBC AUTO DIFF Reviewed date:11/17/2024 08:58:56 PM Interpretation: Performing Lab: Notes/Report: [facility] , White Blood Count 11.6 4.0-11.0 10 [...] 11.1 9.5-13.5 fL Performing Lab: see note - [facility] LB BNP Reviewed date:11/17/2024 08:58:56 PM Interpretation: Performing Lab: Notes/Report: [facility] , NT Pro B Type Natriuretic Pept 23739.0 <=900.0 pg/mL RESULTS CALLED TO ICU Emerald Dominguez RN @BY Shelton Fernando MLT at 0643 Performing Lab: see note - [facility] LB Manual Differential Reviewed date:11/15/2024 06:06:54 PM Interpretation: Performing Lab: Notes/Report: [facility] , Segmented Neutrophils % Manual 76.0 43.0-75.0 [...] 10 3/uL Basophils Abs Manual 0.00 0.00-0.10 10 3/uL Polychromasia 1+ Anisocytosis 2+ Ovalocytes 1+ Performing Lab: see note ML - [facility] LB CBC AUTO DIFF Reviewed date:11/15/2024 06:06:54 PM Interpretation: Performing Lab: Notes/Report: [facility] , White Blood Count 10.0 4.0-11.0 10 [...] fL Performing Lab: see note ML - [facility] LB BNP Reviewed date:11/15/2024 06:06:54 PM Interpretation: Performing Lab: Notes/Report: [facility] , NT Pro B Type Natriuretic Pept 54011.0 <=900.0 pg/mL RESULTS CALLED TO christine shankar rn @BY Payton Julien at 1308 Performing Lab: see note ML - [facility] LB US abdomen limited Reviewed date:03/18/2025 07:29:56 PM Interpretation: Performing Lab: Notes/Report: Source Facility: [place] [address] [place] [address] Ultrasound Report Signed Patient: CONNIE BRIAN MR#: [id number] : 1955 Acct:[id number] Age/Sex: 69 / F ADM Date: 03/16/25 Loc: US Attending Dr: Harry Valencia M.D. Ordering Physician: Harry Valencia M.D. Date of Service: 03/16/25 Procedure(s): US abdomen limited Accession Number(s): [id number] cc: Harry Valencia M.D. [place] [address] Patient Name: CONNIE BRIAN MRN: [facility]:[id number] date: 1955 Sex: F Assigned Patient Location: US Current Patient Location: Accession/Order Number: [id number] Exam Date: 03/18/2025 12:36 Report Date: 03/18/2025 [...] Jr., D.O. 03/18/2025 12:37 PM Dictation Location: [place] [address] Electronically authenticated by: [id number] Y Date: 03/18/2025 12:37 Dictated By: Duke Cooper M.D. Signed By: 03/18/25 1239 DD/ 1237 TD/TT: Mobile Tester: US abdomen complete Reviewed date:03/18/2025 07:29:56 PM Interpretation: Performing Lab: Notes/Report: Source Facility: [place] [address] Ultrasound Report Signed Patient: CONNIE BRIAN MR#: [id number] : 1955 Acct:[id number] Age/Sex: 69 / F ADM Date: 03/16/25 Loc: US Attending Dr: Harry Valencia M.D. Ordering Physician: Harry Valencia M.D. Date of Service: 03/16/25 Procedure(s): US abdomen complete Accession Number(s): [id number] cc: Harry Valencia M.D. [place] [address] Patient Name: CONNIE BRIAN MRN: [id number] date: 1955 Sex: F Assigned Patient Location: US Current Patient Location: Accession/Order Number: [id number] Exam Date: 03/18/2025 12:33 Report Date: 03/18/2025 [...] ASCITES. SPLENOMEGALY.. Impression dictated by: Duke Cooper Jr. D.OBrayan 03/18/2025 12:35 PM Dictation Location: [place] [address] Electronically authenticated by: [id number] Y Date: 03/18/2025 12:35 Dictated By: Duke Cooper M.D. Signed By: 03/18/25 1238 DD/ 1235 TD/TT: Mobile Tester: CBC AUTO DIFF Reviewed date:03/25/2025 03:00:45 PM Interpretation: Performing Lab: Notes/Report: [facility] , White Blood Count 4.2 4.0-11.0 10 3/uL Red Blood Count 3.44 4.20-5.40 10 6/uL HYPOCHR OMIA 2+ Hemoglobin 8.3 12.0-16.0 g/dL Hematocrit 28.8 [...] Performing Lab: see note ML - [facility] LB CBC AUTO DIFF Reviewed date:04/10/2025 12:57:01 PM Interpretation: Performing Lab: Notes/Report: [facility] , White Blood Count 4.8 4.0-11.0 10 [...] Performing Lab: see note ML - [facility] LB CBC AUTO DIFF Reviewed date:04/17/2025 07:51:39 PM Interpretation: Performing Lab: Notes/Report: [facility] , White Blood Count 6.7 4.0-11.0 10 [...] Performing Lab: see note ML - [facility] LB PROF 14(COMP METB) Reviewed date:11/15/2024 06:06:54 PM Interpretation: Performing Lab: Notes/Report: [facility] , Sodium 132 136-145 mmol/L Potassium 4.7 [...] 0.3 Performing Lab: see note ML - [facility] LB LACTATE or LACTIC ACID Reviewed date:11/15/2024 06:06:54 PM Interpretation: Performing Lab: Notes/Report: [facility] , Lactate/Lactic Acid 3.4 0.4-2.0 mmol/L RESULTS CALLED TO CHRISTINE SHANKAR RN @BY Payton Julien at 0921 Performing Lab: see note - [facility] LB FL guided lumbar puncture LP Reviewed date:11/15/2024 06:06:55 PM Interpretation: Performing Lab: Notes/Report: Source Facility: [facility]-[address] [place] [address] Fluoroscopy Report Signed Patient: CONNIE BRIAN MR#: [id number] : 1955 Acct:[id number] Age/Sex: 69 / F ADM Date: 11/14/24 Loc: ICU 274-[address]: Harry Valencia M.D. Ordering Physician: Harry Valencia M.D. Date of Service: 11/15/24 Procedure(s): FL guided lumbar puncture LP Accession Number(s): [id number] cc: Harry Valencia M.D. [place] [address] Patient Name: CONNIE BRIAN MRN: [facility]:[id number] date: 1955 Sex: F Assigned Patient Location: ICU Current Patient Location: ICU Accession/Order Number: [id number] Exam Date: 11/15/2024 13:10 Report Date: 11/15/2024 [...] Signed By: 11/15/24 1404 DD/ 1402 TD/TT: Mobile Tester: CT soft tissue neck w con Reviewed date:11/15/2024 06:06:55 PM Interpretation: Performing Lab: Notes/Report: Source Facility: [place] [address] CT Scan Report Signed Patient: CONNIE BRIAN MR#: [id number] : 1955 Acct:[id number] Age/Sex: 69 / F ADM Date: 11/14/24 Loc: ICU 274-[address]: Harry Valencia M.D. Ordering Physician: Harry Valencia M.D. Date of Service: 11/15/24 Procedure(s): CT soft tissue neck wo con Accession Number(s): [id number] cc: Harry Valencia M.D. [place] [address] Patient Name: CONNIE BRIAN MRN: [facility]:[id number] date: 1955 Sex: F Assigned Patient Location: ICU Current Patient Location: ICU Accession/Order Number: [id number] Exam Date: 11/15/2024 08:35 Report Date: 11/15/2024 [...] By: Lon Del Rosario M.D. Signed By: 11/15/2438 DD/ 5 TD/TT: Mobile Tester: MARCY echo doppler complete Reviewed date:11/15/2024 08:00:26 PM Interpretation: Performing Lab: Notes/Report: Source Facility: [address] [address] Cardiology Report Signed Patient: CONNIE BRIAN MR#: [id number] : 1955 Acct:[id number] Age/Sex: 69 / F ADM Date: 11/14/24 Loc: ICU 274-[address]: Harry Valencia M.D. Ordering Physician: Harry Valencia M.D. Date of Service: 11/15/24 Procedure(s): CA echo doppler complete Accession Number(s): [id number] cc: Harry Valencia M.D. Patient Name: CONNIE BRIAN MR#: [id number] : 1955 Exam Date: 11/15/2024 Ordering Doctor: [...] CROUCH Signed By: 11/15/241834 DD/ 33 TD/TT: Mobile Tester: ANTIBODY ID PANEL Reviewed date:07/14/2025 11:17:02 AM Interpretation: Performing Lab: Notes/Report: [facility] , Antibody Identification K CBC AUTO DIFF Reviewed date:07/11/2025 04:38:27 PM Interpretation: Performing Lab: Notes/Report: [facility] , White Blood Count 4.7 4.0-11.0 10 3/uL Red Blood Count 2.81 4.20-5.40 10 6/uL Hemoglobin 6.3 12.0-16.0 g/dL RESULTS LOREDO D TO BRITNI STAFFORD Hematocrit 22.1 36.0-48.0 % RESULTS CALLED TO BRITNI STAFFORD Mean Corpuscular Volume 78.6 81.0-99.0 fL Mean Corpuscular Hemoglobin 22.4 26.7-34.0 pg Mean Corpuscular HGB Conc 28.5 29.9-35.2 g/dL Red Cell Distribution Width 17.5 11.0-15.0 % Platelet Count 193 150-450 10 3/uL Mean Platelet Volume 10.4 9.5-13.5 fL Neutrophils Percent Auto 52.5 43.0-75.0 % Lymphocytes Percent Auto 35.9 20.5-60.0 % Monocytes Percent Auto 7.6 1.7-12.0 % Eosinophils Percent Auto 3.0 0.9-7.0 % Basophils Percent Auto 0.6 0.2-2.0 % Immature Granulocytes Pct Auto 0.4 0.0-0.5 % Neutrophils Absolute Auto 2.5 1.4-6.5 10 3/uL Lymphocytes Absolute Auto 1.7 1.2-3.8 10 3/uL Monocytes Absolute Auto 0.4 0.3-0.8 10 3/uL Eosinophils Absolute Auto 0.1 0.0-0.7 10 3/uL Basophils Absolute Auto 0.0 0.0-0.1 10 3/uL Immature Granulocytes Abs Auto 0.02 0.00-0.03 10 3/uL Performing Lab: see note ML - [facility] LB FERRITIN Reviewed date:07/11/2025 04:38:27 PM Interpretation: Performing Lab: Notes/Report: [facility] , Ferritin 4.0 8.0-252.0 ng/mL Performing Lab: see note ML - [facility] LB IRON AND TIBC Reviewed date:07/11/2025 04:38:27 PM Interpretation: Performing Lab: Notes/Report: [facility] , Iron 17.0 50.0-170.0 ug/dL Total Iron Binding Capacity 459.0 250.0-450.0 ug/dL Percent Iron Saturation 3.7 Performing Lab: see note ML - [facility] LB PROF 14(COMP METB) Reviewed date:07/11/2025 04:38:27 PM Interpretation: Performing Lab: Notes/Report: [facility] , Sodium 142 136-145 mmol/L Potassium 4.4 3.5-5.1 mmol/L Chloride 105 98-107 mmol/L Carbon Dioxide 25.0 21.0-32.0 mmol/L Anion Gap 16.4 Glucose 459 74-106 mg/dL Blood Urea Nitrogen 40.0 7.0-18.0 mg/dL Creatinine 1.57 0.55-1.02 mg/dL Estimated GFR ( Madiha 40 >=60 mL/min/1.73m 2 Estimated GFR (Non- Ana Luisa 33 >=60 mL/min/1.73m 2 BUN Creatinine Ratio 25.5 Calcium 8.4 8.5-10.1 mg/dL Bilirubin Total 0.8 0.2-1.0 mg/dL Aspartate Amino Transferase 26 15-37 U/L Alanine Aminotransferase 35 14-59 U/L Alkaline Phosphatase 112 46-116 U/L Total Protein 6.8 6.4-8.2 g/dL Albumin Level 2.9 3.4-5.0 g/dL Globulin 3.9 Albumin Globulin Ratio 0.7 Performing Lab: see note ML - [facility] TSH Reviewed date:11/15/2024 06:06:54 PM Interpretation: Performing Lab: Notes/Report: [facility] , Thyroid Stimulating Hormone 1.520 0.358-3.740 uIU/mL Performing Lab: see note ML - [facility] LB T4 Reviewed date:11/15/2024 06:06:54 PM Interpretation: Performing Lab: Notes/Report: [facility] , T4 Thyroxine 5.20 4.80-13.90 ug/dL Performing Lab: see note - [facility] LB RSV Reviewed date:11/15/2024 06:06:54 PM Interpretation: Performing Lab: Notes/Report: [facility] , Respiratory Syncytial Virus Not Detected NOT DETECTE Performing Lab: see note ML - [facility] LB PROTEIN CSF Reviewed date:11/15/2024 06:06:54 PM Interpretation: Performing Lab: Notes/Report: [facility] , Total Protein CSF 205 15-45 mg/dL Performing Lab: see note ML - [facility] LB INFLUENZA A AND B AG Reviewed date:11/15/2024 06:06:54 PM Interpretation: Performing Lab: Notes/Report: [facility] , Influenza Virus A Antigen Negative Negative [...] test. Performing Lab: see note ML - [facility] Occult Blood* Reviewed date:07/11/2025 04:38:27 PM Interpretation: Performing Lab: Notes/Report: [facility] , Occult Blood Negative Performing Lab: see note - [facility] LB ECG 12 lead Reviewed date:07/14/2025 11:17:02 AM Interpretation: Performing Lab: Notes/Report: Source Facility: [facility]-[address] [place] [address] Electrocardiograph Report Signed Patient: CONNIE BRIAN MR#: [id number] : 1955 Acct:[id number] Age/Sex: 69 / F ADM Date: 07/11/25 Loc: [place] 220-[address]: Joan Hoang M.D. 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 Signed By: 07/12/25 17507/12/25 175 DD/ 1547 TD/TT: Mobile Tester: PROF Lopez(COMP METB) Reviewed date:07/11/2025 04:38:27 PM Interpretation: Performing Lab: Notes/Report: [facility] , Sodium 140 136-145 mmol/L Potassium 4.5 3.5-5.1 mmol/L Chloride 104 98-107 mmol/L Carbon Dioxide 25.9 21.0-32.0 mmol/L Anion Gap 14.6 Glucose 433 74-106 mg/dL Blood Urea Nitrogen 40.0 7.0-18.0 mg/dL Creatinine 1.60 0.55-1.02 mg/dL Estimated GFR ( Madiha 39 >=60 mL/min/1.73m 2 Estimated GFR (Non- Ana Luisa 32 >=60 mL/min/1.73m 2 BUN Creatinine Ratio 25.0 Calcium 8.2 8.5-10.1 mg/dL Bilirubin Total 0.8 0.2-1.0 mg/dL Aspartate Amino Transferase 28 15-37 U/L Alanine Aminotransferase 37 14-59 U/L Alkaline Phosphatase 112 46-116 U/L Total Protein 6.9 6.4-8.2 g/dL Albumin Level 2.9 3.4-5.0 g/dL Globulin 4.0 Albumin Globulin Ratio 0.7 Performing Lab: see note ML - [facility] LB CBC AUTO DIFF Reviewed date:07/11/2025 04:38:27 PM Interpretation: Performing Lab: Notes/Report: [facility] , White Blood Count 5.1 4.0-11.0 10 3/uL Red Blood Count 2.84 4.20-5.40 10 6/uL Hemoglobin 6.3 12.0-16.0 g/dL RESULTS LOREDO D TO DR. CORTES Hematocrit 22.3 36.0-48.0 % RESULTS CALLED TO DR. CORTES Mean Corpuscular Volume 78.5 81.0-99.0 fL Mean Corpuscular Hemoglobin 22.2 26.7-34.0 pg Mean Corpuscular HGB Conc 28.3 29.9-35.2 g/dL Red Cell Distribution Width 17.4 11.0-15.0 % Platelet Count 191 150-450 10 3/uL Mean Platelet Volume 10.7 9.5-13.5 fL Neutrophils Percent Auto 59.6 43.0-75.0 % Lymphocytes Percent Auto 29.7 20.5-60.0 % Monocytes Percent Auto 7.0 1.7-12.0 % Eosinophils Percent Auto 2.9 0.9-7.0 % Basophils Percent Auto 0.6 0.2-2.0 % Immature Granulocytes Pct Auto 0.2 0.0-0.5 % Neutrophils Absolute Auto 3.1 1.4-6.5 10 3/uL Lymphocytes Absolute Auto 1.5 1.2-3.8 10 3/uL Monocytes Absolute Auto 0.4 0.3-0.8 10 3/uL Eosinophils Absolute Auto 0.2 0.0-0.7 10 3/uL Basophils Absolute Auto 0.0 0.0-0.1 10 3/uL Immature Granulocytes Abs Auto 0.01 0.00-0.03 10 3/uL Performing Lab: see note ML - [facility] LB FOLATE Reviewed date:07/12/2025 12:51:28 PM Interpretation: Performing Lab: Notes/Report: [facility] , Folate 11.70 8.60-58.90 ng/mL Performing Lab: see note ML - [facility] LB HEMOGRAM AND PLATEL Reviewed date:11/15/2024 06:06:54 PM Interpretation: Performing Lab: Notes/Report: [facility] , Hemoglobin 7.5 12.0-16.0 g/dL Hematocrit 24.8 36.0-48.0 % Performing Lab: see note ML - [facility] LB GLUCOSE CSF Reviewed date:11/15/2024 06:06:54 PM Interpretation: Performing Lab: Notes/Report: [facility] , Glucose CSF 213 40-70 mg/dL Performing Lab: see note ML - [facility] LB Vitamin B12 Reviewed date:07/14/2025 11:17:02 AM Interpretation: Performing Lab: Notes/Report: [facility] , Vitamin B12 071 627-6324 pg/mL Performed at: [facility] [address] [id number] Clinical Leader: Dennis Garcias PhD, Phone: [phone] Performing Lab: see note - [facility] LB GLYCOHEMOGLOBIN A1C Reviewed date:07/14/2025 11:17:02 AM Interpretation: Performing Lab: Notes/Report: Comment Add to an already drawn sample [facility] , Glycohemoglobin A1C 8.7 4.5-6.2 % ADA RECOMMENDED LIMIT 4.0 - 6.0 ADA THERAPEUTIC TARGET < 7.0 ACTION SUGGESTED > 7.0 Estimated Average Glucose 203 Performing Lab: see note ML - [facility] LB HEMOGRAM AND PLATEL Reviewed date:07/14/2025 11:17:02 AM Interpretation: Performing Lab: Notes/Report: [facility] , Hemoglobin 8.1 12.0-16.0 g/dL Hematocrit 26.0 36.0-48.0 % Performing Lab: see note ML - [facility] LB MAGNESIUM Reviewed date:07/14/2025 11:17:02 AM Interpretation: Performing Lab: Notes/Report: [facility] , Magnesium 1.8 1.8-2.4 mg/dL Performing Lab: see note ML - [facility] LB PHOSPHORUS Reviewed date:07/14/2025 11:17:02 AM Interpretation: Performing Lab: Notes/Report: [facility] , Phosphorus 3.6 2.6-4.7 mg/dL Performing Lab: see note ML - [facility] LB PROF 14(COMP METB) Reviewed date:07/14/2025 11:17:02 AM Interpretation: Performing Lab: Notes/Report: [facility] , Sodium 139 136-145 mmol/L Potassium 3.9 3.5-5.1 mmol/L Chloride 104 98-107 mmol/L Carbon Dioxide 26.1 21.0-32.0 mmol/L Anion Gap 12.8 Glucose 229 74-106 mg/dL Blood Urea Nitrogen 30.0 7.0-18.0 mg/dL Creatinine 0.95 0.55-1.02 mg/dL Estimated GFR ( Madiha >60 >=60 mL/min/1.73m 2 Estimated GFR (Non- Ana Luisa 58 >=60 mL/min/1.73m 2 BUN Creatinine Ratio 31.6 Calcium 8.6 8.5-10.1 mg/dL Bilirubin Total 1.5 0.2-1.0 mg/dL Aspartate Amino Transferase 33 15-37 U/L Alanine Aminotransferase 29 14-59 U/L Alkaline Phosphatase 89 46-116 U/L Total Protein 6.1 6.4-8.2 g/dL Albumin Level 2.5 3.4-5.0 g/dL Globulin 3.6 Albumin Globulin Ratio 0.7 Performing Lab: see note ML - [facility] CBC no Diff (Hemogram) Reviewed date:07/14/2025 11:17:02 AM Interpretation: Performing Lab: Notes/Report: [facility] , White Blood Count 3.9 4.0-11.0 10 3/uL Red Blood Count 3.31 4.20-5.40 10 6/uL Hemoglobin 7.7 12.0-16.0 g/dL Hematocrit 26.0 36.0-48.0 % Mean Corpuscular Volume 78.5 81.0-99.0 fL Mean Corpuscular Hemoglobin 23.3 26.7-34.0 pg Mean Corpuscular HGB Conc 29.6 29.9-35.2 g/dL Red Cell Distribution Width 16.7 11.0-15.0 % Platelet Count 194 150-450 10 3/uL Mean Platelet Volume 10.5 9.5-13.5 fL Performing Lab: see note - [facility] Acute Hepatitis Reviewed date:07/16/2025 08:20:52 PM Interpretation: Performing Lab: Notes/Report: [facility] , Hep A Ab, IgM Negative Negative A negative anti-HAV IgM result suggests no recent or current HAV infection. HBsAg Screen Negative Negative Hep B Core Ab, IgM Negative Negative HCV Ab Non Reactive Non Reactive Interpretation: Comment . Not infected with HCV unless early or acute infection is suspected (which may be delayed in an immunocompromised individual), or other evidence exists to indicate HCV infection. Performed at: [facility] [id number] Clinical Leader: Dennis Garcias PhD, Phone: [phone] Performing Lab: see note LC - [facility] LB UA Micro, reflex to culture Reviewed date:07/14/2025 11:17:02 AM Interpretation: Performing Lab: Notes/Report: [facility] , Color Urine LT. YELLOW YELLOW Clarity Urine SL CLOUDY CLEAR Specific [place] Urine <=1.005 1.005-1.025 pH Urine 7.0 5.0-9.0 Protein Urine NEGATIVE NEG/TRACE mg/dL Glucose Urine UA 100 NEGATIVE mg/dL Bilirubin Urine NEGATIVE NEGATIVE Ketones Urine NEGATIVE NEGATIVE mg/dL Blood Urine NEGATIVE NEGATIVE Nitrite Urine NEGATIVE NEGATIVE Urobilinogen Urine 1.0 0.2-1.0 EU/dL Leukocyte Esterase Urine NEGATIVE NEGATIVE WBC Urine 2-5 NONE SEEN #/HPF RBC Urine NONE SEEN 0-2 #/HPF Bacteria Urine LARGE NONE SEEN #/HPF Mucus Urine NONE SEEN NONE SEEN Squamous Epithelial Cell Urine NONE SEEN NONE/RARE #/LPF Crystals Seen? None Seen None Seen #/HPF Cast Seen? NONE SEEN NONE SEEN #/LPF Urine Culture Indicated YES-[facility] Performing Lab: see note ML - [facility] LB Urine Culture - [facility] Reviewed date:07/15/2025 06:58:32 PM Interpretation: Performing Lab: Notes/Report: [facility] , Urine Culture - [facility] See Below For Report Urine Culture - [facility] Testing performed at [facility] O:ESCCOL Isolated Urine Culture - [facility] [place] Count Organism: 1.1 Antibiotic Interpretation KAL Status Urine Culture - [facility] [address] [place] [address] Urine Culture - [facility] Testing performed at [facility] O:ESCCOL Isolated Urine Culture - [facility] [place] Count Organism: 1.1 Antibiotic Interpretation KAL Status Urine Culture - [facility] See Below For Report Urine Culture - [facility] Testing performed at [facility] O:ESCCOL Isolated Urine Culture - [facility] [place] Count Organism: 1.1 Antibiotic Interpretation KAL Status Urine Culture - [facility] See Below For Report Urine Culture - [facility] Testing performed at [facility] O:ESCCOL Isolated Urine Culture - [facility] [place] Count Organism: 1.1 Antibiotic Interpretation KAL Status Urine Culture - [facility] >100,000 Urine Culture - [facility] Testing performed at [facility] O:ESCCOL Isolated Urine Culture - [facility] [place] Count Organism: 1.1 Antibiotic Interpretation KAL Status Urine Culture - [facility] See Below For Report Urine Culture - [facility] Testing performed at [facility] O:ESCCOL Isolated Urine Culture - [facility] [place] Count Organism: 1.1 Antibiotic Interpretation KAL Status Urine Culture - [facility] Amikacin S F Urine Culture - [facility] Testing performed at [facility] O:ESCCOL Isolated Urine Culture - [facility] [place] Count Organism: 1.1 Antibiotic Interpretation KAL Status Urine Culture - [facility] Amoxicillin/Clavula hermilo e S F Urine Culture - [facility] Testing performed at [facility] O:ESCCOL Isolated Urine Culture - [facility] [place] Count Organism: 1.1 Antibiotic Interpretation KAL Status Urine Culture - [facility] Ampicillin R F Urine Culture - [facility] Testing performed at [facility] O:ESCCOL Isolated Urine Culture - [facility] [place] Count Organism: 1.1 Antibiotic Interpretation KAL Status Urine Culture - [facility] Aztreonam S F Urine Culture - [facility] Testing performed at [facility] O:ESCCOL Isolated Urine Culture - [facility] [place] Count Organism: 1.1 Antibiotic Interpretation KAL Status Urine Culture - [facility] Ceftazidime S F Urine Culture - [facility] Testing performed at [facility] O:ESCCOL Isolated Urine Culture - [facility] [place] Count Organism: 1.1 Antibiotic Interpretation KAL Status Urine Culture - [facility] Ceftazidime/Avibact am S F Urine Culture - [facility] Testing performed at [facility] O:ESCCOL Isolated Urine Culture - [facility] [place] Count Organism: 1.1 Antibiotic Interpretation KAL Status Urine Culture - [facility] Ceftolozane/T[place] tripp S F Urine Culture - [facility] Testing performed at [facility] O:ESCCOL Isolated Urine Culture - [facility] [place] Count Organism: 1.1 Antibiotic Interpretation KAL Status Urine Culture - [facility] Ciprofloxacin R F Urine Culture - [facility] Testing performed at [facility] O:ESCCOL Isolated Urine Culture - [facility] [place] Count Organism: 1.1 Antibiotic Interpretation KAL Status Urine Culture - [facility] Ertapenem S F Urine Culture - [facility] [facility] O:ES[facility]OL Isolated Urine [facility] - [facility] [place] Count Organism: 1.1 Antibiotic Interpretation KAL Status Urine Culture - [facility] Gentamicin S F Urine [facility] - [facility] Testing performed at [facility] O:ESCCOL Isolated Urine Culture - [facility] [place] Count Organism: 1.1 Antibiotic Interpretation KAL Status Urine Culture - [facility] Levofloxacin R F Urine Culture - [facility] Testing performed at [facility] O:ESCCOL Isolated Urine Culture - [facility] [place] Count Organism: 1.1 Antibiotic Interpretation KAL Status Urine Culture - [facility] Meropenem S F Urine Culture - [facility] Testing performed at [facility] O:ESCCOL Isolated Urine Culture - [facility] [place] Count Organism: 1.1 Antibiotic Interpretation KAL Status Urine Culture - [facility] Meropenem/Vaborbact am S F Urine Culture - [facility] Testing performed at [facility] O:ESCCOL Isolated Urine Culture - [facility] [place] Count Organism: 1.1 Antibiotic Interpretation KAL Status Urine Culture - [facility] Nitrofurantoin S F Urine Culture - [facility] Testing performed at [facility] O:ESCCOL Isolated Urine Culture - [facility] [place] Count Organism: 1.1 Antibiotic Interpretation KAL Status Urine Culture - [facility] Tetracycline S F Urine Culture - [facility] Testing performed at [facility] O:ESCCOL Isolated Urine Culture - [facility] [place] Count Organism: 1.1 Antibiotic Interpretation KAL Status Urine Culture - [facility] Tigecycline S F Urine Culture - [facility] Testing performed at [facility] O:ESCCOL Isolated Urine Culture - [facility] [place] Count Organism: 1.1 Antibiotic Interpretation KAL Status Urine Culture - [facility] Tobramycin S F Urine Culture - [facility] Testing performed at [facility] O:ESCCOL Isolated Urine Culture - [facility] [place] Count Organism: 1.1 Antibiotic Interpretation KAL Status Urine Culture - [facility] Ampicillin/Sulbacta m I F Urine Culture - [facility] Testing performed at [facility] O:ESCCOL Isolated Urine Culture - [facility] [place] Count Organism: 1.1 Antibiotic Interpretation KAL Status Urine Culture - [facility] Cefazolin S F Urine Culture - [facility] Testing performed at [facility] O:ESCCOL Isolated Urine Culture - [facility] [place] Count Organism: 1.1 Antibiotic Interpretation KAL Status Urine Culture - [facility] Cefepime S F Urine Culture - [facility] Testing performed at [facility] O:ESCCOL Isolated Urine Culture - [facility] [place] Count Organism: 1.1 Antibiotic Interpretation KAL Status Urine Culture - [facility] Ceftriaxone S F Urine Culture - [facility] Testing performed at [facility] O:ESCCOL Isolated Urine Culture - [facility] [place] Count Organism: 1.1 Antibiotic Interpretation KAL Status Urine Culture - [facility] Cefuroxime S F Urine Culture - [facility] Testing performed at [facility] O:ESCCOL Isolated Urine Culture - [facility] [place] Count Organism: 1.1 Antibiotic Interpretation KAL Status Urine Culture - [facility] Piperacillin/Tazoba cta m S F Urine Culture - [facility] Testing performed at [facility] O:ESCCOL Isolated Urine Culture - [facility] [place] Count Organism: 1.1 Antibiotic Interpretation KAL Status Urine Culture - [facility] Trimethoprim/Sulfa S F Urine Culture - [facility] Testing performed at [facility] O:ESCCOL Isolated Urine Culture - [facility] [place] Count Organism: 1.1 Antibiotic Interpretation KAL Status Performing Lab: see note ML - [facility] LB SEE REPORT - Core Mounter Id information not found for OBX-specific bee producer legend BNP Reviewed date:11/15/2024 06:06:54 PM Interpretation: Performing Lab: Notes/Report: Comment from labs this am [facility] , NT Pro B Type Natriuretic Pept 9792.0 <=900.0 pg/mL RESULTS CALLED TO CHRISTINE SHANKAR RN Performing Lab: see note ML - [facility] LB Box Test Reviewed date:11/18/2024 03:05:02 PM Interpretation: Performing Lab: Notes/Report: POSITIVE BLOOD CULTURE. AEROBIC BOTTLE. [facility] , BOX Test Sent Out BLOOD CULTURE BOX Test Reference Lab [facility] BOX Test Date Sent 11/14/24 BOX Test Result SEE SCANNED REPORT Performing Lab: see note ML - [facility] LB Box Test Reviewed date:11/18/2024 03:05:02 PM Interpretation: Performing Lab: Notes/Report: POSITIVE BLOOD CULTURE. ANAEROBIC BOTTLE. [facility] , BOX Test Sent Out BLOOD CULTURE BOX Test Reference Lab [facility] BOX Test Date Sent 11/14/24 BOX Test Result SEE SCANNED REPORT Performing Lab: see note ML - [facility] LB Box Test Reviewed date:11/18/2024 03:05:02 PM Interpretation: Performing Lab: Notes/Report: POSITIVE BLOOD CULTURE. ANAEROBIC BOTTLE. [facility] , BOX Test Sent Out BLOOD CULTURE BOX Test Reference Lab [facility] BOX Test Date Sent 11/14/24 BOX Test Result SEE SCANNED REPORT Performing Lab: see note - [facility] LB Box Test Reviewed date:11/18/2024 03:05:02 PM Interpretation: Performing Lab: Notes/Report: POSITIVE BLOOD CULTURE. AEROBIC BOTTLE. [facility] , BOX Test Sent Out BLOOD CULTURE BOX Test Reference Lab [facility] BOX Test Date Sent 11/14/24 BOX Test Result SEE SCANNED REPORT Performing Lab: see note ML - [facility] LB ECG 12 lead Reviewed date:11/17/2024 08:58:56 PM Interpretation: Performing Lab: Notes/Report: Source Facility: [facility]-[address] [place] [address] [place] [address] Electrocardiograph Report Signed Patient: CONNIE BRIAN MR#: [id number] : 1955 Acct:[id number] Age/Sex: 69 / F ADM Date: 11/14/24 Loc: ICU 274-[address]: Harry Valencia M.D. Ordering Physician: Howard Abarca D.O. Date of Service: 11/14/24 Procedure(s): ECG 12 lead Accession Number(s): [id number] cc: [facility] Test Date: 2024-11-14 Pat Name: CONNIE BRIAN Department: Room: - Gender: Female Operations Manager/Coordinator: : 1955 Requested By: Howard Abarca Order Number: [id number] Reading MD: HARRY VALENCIA Measurements Intervals [place] Rate: 115 P: -54255 FL: -90418 QRS: 65 QRSD: 78 T: 90 QT: 322 QTc: 390 Interpretive Statements 96101 Atrial fibrillation with rapid ventricular response 05857 Nonspecific Twave abnormality, probably digitalis effect 9140 abnormal rhythm ECG No previous ECG available for comparison Dictated By: Harry Valencia M.D. Signed By: <Electronically signed by Harry Valencia M.D.> 11/16/24 0653 DD/ 2148 TD/TT: Mobile Tester: Troponin I High Sensitivity Reviewed date:11/15/2024 06:06:55 PM Interpretation: Performing Lab: Notes/Report: [facility] , Troponin I High Sensitivity 8.4 4.0-51.3 [...] CLINICAL INFORMATION. Performing Lab: see note - [facility] LB LACTATE or LACTIC ACID Reviewed date:11/15/2024 06:06:55 PM Interpretation: Performing Lab: Notes/Report: [facility] , Lactate/Lactic Acid 5.7 0.4-2.0 mmol/L RESULT S CALLED TO DR. ABARCA Performing Lab: see note ML - [facility] LB XR chest 1V Reviewed date:11/15/2024 06:06:55 PM Interpretation: Performing Lab: Notes/Report: Source Facility: [place] [address] XRay Report Signed Patient: CONNIE BRIAN MR#: [id number] : 1955 Acct:[id number] Age/Sex: 69 / F ADM Date: 11/14/24 Loc: ER Attending Dr: Ordering Physician: Sadie Cortes Date of Service: 11/14/24 Procedure(s): XR chest 1V Accession Number(s): [id number] cc: Harry Valencia M.D.; Sadie Cortes [place] [id number] Patient Name: CONNIE BRIAN MRN: [id number] date: 1955 Sex: F Assigned Patient Location: ER Current Patient Location: ED.MAIN Accession/Order Number: [id number] Exam Date: 11/14/2024 18:52 Report Date: 11/14/2024 [...] normal with some mild central vascular prominence. pediatric medical assistant overlies left lower hemithorax. MEDIASTINAL AND HILAR CONTOUR: Within normal limits. PULMONARY PARENCHYMA AND PLEURA: No consolidation, edema, effusion, or pneumothorax. OSSEOUS STRUCTURES:Nothing significant. OTHER COMMENTS:None. XR/XR chest 1V IMPRESSION: Mild central vascular prominence. Borderline heart size. External cardiac technologist overlies left lower chest wall. This report was generated with voice recognition software. Effort has been made to ensure accuracy of this report, however, occasional wording errors may persist. Please contact our office with any questions. Electronically authenticated by: HARLEY BERNAL Date: 11/14/2024 19:36 Dictated By: Harley Bernal D.O. Signed By: 11/14/241938 DD/ 35 TD/TT: Mobile Tester: ECG 12 lead Reviewed date:11/18/2024 03:05:02 PM Interpretation: Performing Lab: Notes/Report: Source Facility: [place] [address] [place] [address] Electrocardiograph Report Signed Patient: CONNIE BRIAN MR#: [id number] : 1955 Acct:[id number] Age/Sex: 69 / F ADM Date: 11/14/24 Loc: [place] 217-[address]: Harry Valencia M.D. 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 Signed By: 11/18/24 0734 DD/ 1906 TD/TT: Mobile Tester: Box Test Reviewed date:11/17/2024 08:58:56 PM Interpretation: Performing Lab: Notes/Report: URINE CULTURE [facility] , BOX Test Sent Out URINE BOX Test Reference Lab [facility] BOX Test Date Sent 11/14/24 BOX Test Result SEE SCANNED REPORT Performing Lab: see note ML - [facility] LB Troponin I High Sensitivity Reviewed date:11/15/2024 06:06:55 PM Interpretation: Performing Lab: Notes/Report: [facility] , Troponin I High Sensitivity 5.7 4.0-51.3 [...] INFORMATION. Performing Lab: see note ML - [facility] LB Type and Screen Reviewed date:11/15/2024 06:06:55 PM Interpretation: Performing Lab: Notes/Report: [facility] , Blood Type O Positive Antibody Screen NEGATIVE Manual Differential Reviewed date:11/15/2024 06:06:55 PM Interpretation: Performing Lab: Notes/Report: [facility] , Segmented Neutrophils % Manual 76.0 43.0-75.0 [...] 10 3/uL Basophils Abs Manual 0.00 0.00-0.10 10 3/uL Metamyelocytes Absolute Manual 0.10 Nucleated Red Blood Cells 1 Hypochromasia 1+ Anisocytosis 1+ Microcytosis 1+ Performing Lab: see note - [facility] LB Prothrombin Time INR Reviewed date:11/15/2024 06:06:55 PM Interpretation: Performing Lab: Notes/Report: [facility] , Prothrombin Time 12.8 9.0-11.6 sec INR 1.23 DESIRED INR: 2.0-3.0 CONDITIONS NOT LISTED BELOW 2.5-3.5 FOR PROSTHETIC HEART VALVE REPLACEMENT 2.5-3.5 RECURRENT THROMBOSIS Performing Lab: see note - [facility] LB URINE MICROSCOPIC ONLY Reviewed date:11/15/2024 06:06:55 PM Interpretation: Performing Lab: Notes/Report: [facility] , WBC Urine 2-5 NONE SEEN #/HPF RBC Urine 0-2 0-2 #/HPF Bacteria Urine MODERATE NONE SEEN #/HPF Mucus Urine NONE SEEN NONE SEEN Squamous Epithelial Cell Urine RARE NONE/RARE #/LPF Crystals Seen? None Seen None Seen #/HPF Cast Seen? NONE SEEN NONE SEEN #/LPF Urine Culture Indicated YES Performing Lab: see note ML - [facility] LB UA (CLEAN or CATCH) PATIENT INTAKE REPRESENTATIVE or M ICRO IF IND. Reviewed date:11/15/2024 06:06:55 PM Interpretation: Performing Lab: Notes/Report: [facility] , Color Urine YELLOW YELLOW Clarity Urine CLEAR CLEAR Specific [place] Urine 1.025 1.005-1.025 pH Urine 5.0 5.0-9.0 Protein Urine TRACE NEG/TRACE mg/dL Glucose Urine UA >=1000 NEGATIVE mg/dL Bilirubin Urine SMALL NEGATIVE Ketones Urine TRACE NEGATIVE mg/dL Blood Urine NEGATIVE NEGATIVE Nitrite Urine NEGATIVE NEGATIVE Urobilinogen Urine 1.0 0.2-1.0 EU/dL Leukocyte Esterase Urine TRACE NEGATIVE Urine Microscopic Indicated YES Performing Lab: see note [facility] LB PROF 14(COMP METB) Reviewed date:11/15/2024 06:06:55 PM Interpretation: Performing Lab: Notes/Report: [facility] , Sodium 129 136-145 mmol/L Potassium 4.1 [...] 0.4 Performing Lab: see note ML - [facility] LB LACTATE or LACTIC ACID Reviewed date:11/15/2024 06:06:55 PM Interpretation: Performing Lab: Notes/Report: [facility] , Lactate/Lactic Acid 6.2 0.4-2.0 mmol/L RESULT S CALLED TO ricardo mclain rn Performing Lab: see note ML - [facility] LB CBC AUTO DIFF Reviewed date:11/15/2024 06:06:55 PM Interpretation: Performing Lab: Notes/Report: [facility] , White Blood Count 10.6 4.0-11.0 10 [...] fL Performing Lab: see note ML - [facility] LB BNP Reviewed date:11/15/2024 06:06:55 PM Interpretation: Performing Lab: Notes/Report: [facility] , NT Pro B Type Natriuretic Pept 7070.0 <=900.0 pg/mL RESULTS CALLED TO DR Brayan ABARCA Performing Lab: see note - [facility] LB BLOOD CULTURE ID PANEL Reviewed date:11/15/2024 06:06:55 PM Interpretation: Performing Lab: Notes/Report: [facility] , CTX-M NOT APPLICABLE NOT DETECTE IMP [...] DETECTED NOT DETECTE Performing Lab: see note - [facility] LB Troponin I High Sensitivity Reviewed date:11/04/2024 08:21:50 PM Interpretation: Performing Lab: Notes/Report: [facility] , Troponin I High Sensitivity 38.0 4.0-51.3 [...] Performing Lab: see note ML - [facility] LB Prothrombin Time INR Reviewed date:11/04/2024 08:21:50 PM Interpretation: Performing Lab: Notes/Report: [facility] , Prothrombin Time 10.9 9.0-11.6 sec INR 1.03 DESIRED INR: 2.0-3.0 CONDITIONS NOT LISTED BELOW 2.5-3.5 FOR PROSTHETIC HEART VALVE REPLACEMENT 2.5-3.5 RECURRENT THROMBOSIS Performing Lab: see note ML - [facility] LB PROF 14(COMP METB) Reviewed date:11/04/2024 08:21:50 PM Interpretation: Performing Lab: Notes/Report: [facility] , Sodium 140 136-145 mmol/L Potassium 4.1 [...] Performing Lab: see note ML - [facility] LB MAGNESIUM Reviewed date:11/04/2024 08:21:50 PM Interpretation: Performing Lab: Notes/Report: [facility] , Magnesium 1.7 1.8-2.4 mg/dL Performing Lab: see note - [facility] LB CBC AUTO DIFF Reviewed date:11/04/2024 08:21:50 PM Interpretation: Performing Lab: Notes/Report: [facility] , White Blood Count 7.0 4.0-11.0 10 [...] Performing Lab: see note ML - [facility] LB CBC AUTO DIFF Reviewed date:10/07/2024 02:07:24 PM Interpretation: Performing Lab: Notes/Report: [facility] , White Blood Count 5.7 4.0-11.0 10 [...] 3/uL Performing Lab: see note ML - [facility] LB Occult Blood* Reviewed date:09/29/2024 04:03:46 PM Interpretation: Performing Lab: Notes/Report: [facility] , Occult Blood Positive Performing Lab: see note - [facility] LB Type and Screen Reviewed date:09/29/2024 04:03:46 PM Interpretation: Performing Lab: Notes/Report: [facility] , Blood Type O Positive Antibody Screen NEGATIVE Packed Red Blood Cells Reviewed date:09/29/2024 04:03:46 PM Interpretation: Performing Lab: Notes/Report: Packed Red Blood Cells [id number] OP RC TRANSFUSED 09/28/24 1126 [id number] OP RC TRANSFUSED 09/28/24 1321 Second ABO/RH Type Reviewed date:09/29/2024 04:03:46 PM Interpretation: Performing Lab: Notes/Report: [facility] , Blood Type #2 O Positive IRON Reviewed date:03/05/2025 04:11:43 PM Interpretation: Performing Lab: Notes/Report: [facility] , Iron 15.0 50.0-170.0 ug/dL Performing Lab: see note ML - [facility] LB FERRITIN Reviewed date:03/05/2025 04:11:43 PM Interpretation: Performing Lab: Notes/Report: [facility] , Ferritin 7.0 8.0-252.0 ng/mL Performing Lab: see note - [facility] LB CBC AUTO DIFF Reviewed date:03/05/2025 01:33:59 PM Interpretation: Performing Lab: Notes/Report: [facility] , White Blood Count 3.8 4.0-11.0 10 [...] 10 3/uL Performing Lab: see note - [facility] LB GLYCOHEMOGLOBIN A1C Reviewed date:09/21/2024 09:21:49 PM Interpretation: Performing Lab: Notes/Report: [facility] , Glycohemoglobin A1C 11.7 4.5-6.2 % ADA RECOMMENDED LIMIT 4.0 - 6.0 ADA THERAPEUTIC TARGET < 7.0 ACTION SUGGESTED > 7.0 Estimated Average Glucose 289 Performing Lab: see note [facility] CBC AUTO DIFF Reviewed date:09/29/2024 04:03:46 PM Interpretation: Performing Lab: Notes/Report: [facility] , White Blood Count 5.0 4.0-11.0 10 [...] 3/uL Performing Lab: see note ML - [facility] LB PROF 14(COMP METB) Reviewed date:12/30/2024 11:28:24 AM Interpretation: Performing Lab: Notes/Report: [facility] , Sodium 140 136-145 mmol/L Potassium 4.7 [...] 0.5 Performing Lab: see note ML - [facility] LB CBC AUTO DIFF Reviewed date:12/30/2024 11:28:24 AM Interpretation: Performing Lab: Notes/Report: [facility] , White Blood Count 5.9 4.0-11.0 10 3/uL Red Blood Count 2.67 4.20-5.40 10 6/uL Hemoglobin 6.6 12.0-16.0 g/dL RESULTS CALLED TO Melecio Grace RN @[facility] [place] at 0610 Hematocrit 22.0 36.0-48.0 % RESULTS CALLED TO Melecio Grace RN @[facility] [place], [place] at 0610 Mean Corpuscular Volume 82.4 81.0-99.0 [...] 3/uL Performing Lab: see note ML - [facility] LB BNP Reviewed date:12/30/2024 11:28:24 AM Interpretation: Performing Lab: Notes/Report: [facility] , NT Pro B Type Natriuretic Pept 772.0 <=900.0 pg/mL Performing Lab: see note ML - [facility] LB MAGNESIUM Reviewed date:12/30/2024 11:28:24 AM Interpretation: Performing Lab: Notes/Report: [facility] , Magnesium 2.2 1.8-2.4 mg/dL Performing Lab: see note - [facility] LB PROF CHEM 8 (BAS METB) Reviewed date:12/30/2024 11:28:24 AM Interpretation: Performing Lab: Notes/Report: [facility] , Sodium 142 136-145 mmol/L Potassium 4.9 [...] Performing Lab: see note ML - [facility] LB CBC AUTO DIFF Reviewed date:12/30/2024 11:28:24 AM Interpretation: Performing Lab: Notes/Report: [facility] , White Blood Count 6.3 4.0-11.0 10 [...] 3/uL Performing Lab: see note ML - [facility] LB ECG 12 lead Reviewed date:12/30/2024 11:28:24 AM Interpretation: Performing Lab: Notes/Report: Source Facility: [place] [address] [address] [place] [id number] Electrocardiograph Report Signed Patient: CONNIE BRIAN MR#: [id number] : 1955 Acct:[id number] Age/Sex: 69 / F ADM Date: 12/28/24 Loc: MS 215- Attending Dr: Harry Valencia M.D. Ordering Physician: Harry Valencia M.D. 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 Signed By: 12/30/24 1107 DD/ 23 TD/TT: Mobile Tester: BNP Reviewed date:12/30/2024 11:28:24 AM Interpretation: Performing Lab: Notes/Report: [facility] , NT Pro B Type Natriuretic Pept 1124.0 <=900.0 pg/mL Performing Lab: see note ML - [facility] LB CT abdomen pelvis wo con Reviewed date:12/30/2024 11:28:24 AM Interpretation: Performing Lab: Notes/Report: Source Facility: [place] [address] CT Scan Report Signed Patient: CONNIE BRIAN MR#: [id number] : 1955 Acct:[id number] Age/Sex: 69 / F ADM Date: 12/28/24 Loc: ER Attending Dr: Ordering Physician: Vicente Salomon Date of Service: 12/28/24 Procedure(s): CT abdomen pelvis wo con Accession Number(s): [id number] cc: Harry Valencia M.D. [place] [address] Patient Name: CONNIE BRIAN MRN: [id number] date: 1955 Sex: F Assigned Patient Location: ER Current Patient Location: ER Accession/Order Number: [id number] Exam Date: 12/28/2024 12:17 Report Date: 12/28/2024 [...] Signed By: 12/28/24 1331 DD/ 1328 TD/TT: Mobile Tester: CT chest wo con Reviewed date:12/30/2024 11:28:24 AM Interpretation: Performing Lab: Notes/Report: Source Facility: [place] [address] CT Scan Report Signed Patient: CONNIE BRIAN MR#: [id number] : 1955 Acct:[id number] Age/Sex: 69 / F ADM Date: 12/28/24 Loc: ER Attending Dr: Ordering Physician: Vicente Salomon Date of Service: 12/28/24 Procedure(s): CT chest wo con Accession Number(s): [id number] cc: Harry Valencia M.D. [place] [address] Patient Name: CONNIE BRIAN MRN: [id number] date: 1955 Sex: F Assigned Patient Location: ER Current Patient Location: ER Accession/Order Number: [id number] Exam Date: 12/28/2024 12:17 Report Date: 12/28/2024 [...] Signed By: 12/28/24 1331 DD/ 1328 TD/TT: Mobile Tester: ECG 12 lead Reviewed date:12/30/2024 11:28:24 AM Interpretation: Performing Lab: Notes/Report: Source Facility: [place] [address] [place] [address] Electrocardiograph Report Signed Patient: CONNIE BRIAN MR#: [id number] : 1955 Acct:[id number] Age/Sex: 69 / F ADM Date: 12/28/24 Loc: [place] 215-[address]: Harry Valencia M.D. Ordering Physician: Vicente Salomon Date of Service: 12/28/24 Procedure(s): ECG 12 lead Accession Number(s): [id number] cc: [facility] Test Date: 2024-12-28 Pat Name: CONNIE BRIAN Department: Room: - Gender: Female Operations Manager/Coordinator: : 1955 Requested By: HARRY VALENCIA Order Number: [id number] Reading MD: HARRY VALENCIA Measurements Intervals [place] Rate: 54 P: -20535 FL: -34455 QRS: 56 QRSD: 80 T: 233 QT: 414 QTc: 401 Interpretive Statements Sinus bradycardia 4068 Nonspecific Twave abnormality 9140 abnormal rhythm ECG Compared to ECG 11/14/2024 21:48:10 Atrial fibrillation no longer present Electronically Signed On 12-30-2024 11:06:42 EST by HARRY VALENCIA Dictated By: Harry Valencia M.D. Signed By: 12/30/24 1106 DD/ 1126 TD/TT: Mobile Tester: CBC AUTO DIFF Reviewed date:12/30/2024 11:28:24 AM Interpretation: Performing Lab: Notes/Report: [facility] , White Blood Count 6.9 4.0-11.0 10 [...] 10 3/uL Performing Lab: see note - [facility] LB HEMOGRAM AND PLATEL Reviewed date:12/30/2024 05:22:56 PM Interpretation: Performing Lab: Notes/Report: [facility] , Hemoglobin 9.1 12.0-16.0 g/dL Hematocrit 30.1 36.0-48.0 % Performing Lab: see note - [facility] LB Occult Blood* Reviewed date:12/30/2024 11:28:24 AM Interpretation: Performing Lab: Notes/Report: [facility] , Occult Blood Positive Performing Lab: see note [facility] BNP Reviewed date:12/31/2024 07:17:30 PM Interpretation: Performing Lab: Notes/Report: [facility] , NT Pro B Type Natriuretic Pept 936.0 <=900.0 pg/mL Performing Lab: see note - [facility] LB CBC AUTO DIFF Reviewed date:12/31/2024 07:17:30 PM Interpretation: Performing Lab: Notes/Report: [facility] , White Blood Count 6.4 4.0-11.0 10 [...] 3/uL Performing Lab: see note ML - [facility] LB PROF 14(COMP METB) Reviewed date:12/31/2024 07:17:30 PM Interpretation: Performing Lab: Notes/Report: [facility] , Sodium 139 136-145 mmol/L Potassium 5.3 [...] 0.6 Performing Lab: see note ML - [facility] LB AMMONIA Reviewed date:03/06/2025 09:53:01 AM Interpretation: Performing Lab: Notes/Report: [facility] , Ammonia 42 11-32 umol/L RESULTS CALLED TO RAINA BLACKMON RN at 1854 Performing Lab: see note ML - [facility] LB ANTIBODY ID PANEL Reviewed date:03/07/2025 09:11:26 PM Interpretation: Performing Lab: Notes/Report: [facility] , Antibody Identification K BNP Reviewed date:03/05/2025 04:11:43 PM Interpretation: Performing Lab: Notes/Report: [facility] , NT Pro B Type Natriuretic Pept 507.0 <=900.0 pg/mL Performing Lab: see note - [facility] LB CBC AUTO DIFF Reviewed date:03/05/2025 04:11:43 PM Interpretation: Performing Lab: Notes/Report: [facility] , White Blood Count 4.1 4.0-11.0 10 [...] Performing Lab: see note ML - [facility] LB LACTATE or LACTIC ACID Reviewed date:03/05/2025 04:11:43 PM Interpretation: Performing Lab: Notes/Report: [facility] , Lactate/Lactic Acid 4.5 0.4-2.0 mmol/L RESULT S CALLED TO VERONIKA SALTER RN Performing Lab: see note ML - [facility] LB LIPASE Reviewed date:03/05/2025 04:11:43 PM Interpretation: Performing Lab: Notes/Report: [facility] , Lipase 23.0 16.0-77.0 U/L Performing Lab: see note ML - [facility] LB LIVER PROFILE Reviewed date:03/05/2025 04:11:43 PM Interpretation: Performing Lab: Notes/Report: [facility] , Bilirubin Total 1.0 0.2-1.0 mg/dL Bilirubin Direct 0.4 0.0-0.2 mg/dL Aspartate Amino Transferase 30 15-37 U/L Alanine Aminotransferase 21 14-59 U/L Alkaline Phosphatase 123 46-116 U/L Total Protein 6.9 6.4-8.2 g/dL Albumin Level 2.8 3.4-5.0 g/dL Globulin 4.1 Albumin Globulin Ratio 0.7 Performing Lab: see note ML - [facility] LB MAGNESIUM Reviewed date:03/05/2025 04:11:43 PM Interpretation: Performing Lab: Notes/Report: [facility] , Magnesium 1.8 1.8-2.4 mg/dL Performing Lab: see note ML - [facility] LB PROF 14(COMP METB) Reviewed date:03/05/2025 04:11:43 PM Interpretation: Performing Lab: Notes/Report: [facility] , Sodium 144 136-145 mmol/L Potassium 4.2 [...] 0.7 Performing Lab: see note ML - [facility] LB PROF CHEM 8 (BAS METB) Reviewed date:03/05/2025 04:11:43 PM Interpretation: Performing Lab: Notes/Report: [facility] , Sodium 142 136-145 mmol/L Potassium 4.2 [...] mg/dL Performing Lab: see note ML - [facility] PTT Reviewed date:03/05/2025 01:33:59 PM Interpretation: Performing Lab: Notes/Report: [facility] , Partial Thromboplastin Time 31.5 22.3-36.2 sec Performing Lab: see note ML - [facility] UA RANDOM W or MICROSCOPIC Reviewed date:03/06/2025 09:53:01 AM Interpretation: Performing Lab: Notes/Report: [facility] , Color Urine YELLOW YELLOW Clarity Urine CLEAR CLEAR Specific [place] Urine 1.025 1.005-1.025 pH Urine 6.0 5.0-9.0 [...] ALREADY ORDERED Performing Lab: see note - [facility] Prothrombin Time INR Reviewed date:03/05/2025 01:33:59 PM Interpretation: Performing Lab: Notes/Report: [facility] , Prothrombin Time 13.1 9.0-11.6 sec INR 1.26 DESIRED INR: 2.0-3.0 CONDITIONS NOT LISTED BELOW 2.5-3.5 FOR PROSTHETIC HEART VALVE REPLACEMENT 2.5-3.5 RECURRENT THROMBOSIS Performing Lab: see note - [facility] Packed Red Blood Cells Reviewed date:03/07/2025 09:11:26 PM Interpretation: Performing Lab: Notes/Report: [facility] , Packed Red Blood Cells [id number] OP RC TRANSFUSED 03/06/25 1724 [id number] ON RC TRANSFUSED 03/06/25 0728 [id number] OP RC TRANSFUSED 03/06/25 0524 [id number] OP RC TRANSFUSED 03/06/25 2116 Occult Blood* Reviewed date:03/05/2025 05:54:06 PM Interpretation: Performing Lab: Notes/Report: [facility] , Occult Blood Positive Performing Lab: see note - [facility] Urine Culture - [facility] Reviewed date:03/09/2025 01:15:48 PM Interpretation: Performing Lab: Notes/Report: [facility] , Urine Culture - [facility] See Below For Report Urine Culture - [facility] Testing performed at [facility] O:ESCCOL Isolated Urine Culture - [facility] Cres[place] Count Organism: 1.1 Antibiotic Interpretation KAL Status Urine Culture - [facility] [address] [place] [address] Urine Culture - [facility] Testing performed at [facility] O:ESCCOL Isolated Urine Culture - [facility] Cres[place] Count Organism: 1.1 Antibiotic Interpretation KAL Status Urine Culture - [facility] See Below For Report Urine Culture - [facility] Testing performed at [facility] O:ESCCOL Isolated Urine Culture - [facility] Cres[place] Count Organism: 1.1 Antibiotic Interpretation KAL Status Urine Culture - [facility] See Below For Report Urine Culture - [facility] Testing performed at [facility] O:ESCCOL Isolated Urine Culture - [facility] [place] Count Organism: 1.1 Antibiotic Interpretation KAL Status Urine Culture - [facility] >100,000 Urine Culture - [facility] Testing performed at [facility] O:ESCCOL Isolated Urine Culture - [facility] Cres[place] Count Organism: 1.1 Antibiotic Interpretation KAL Status Urine Culture - [facility] See Below For Report Urine Culture - [facility] Testing performed at [facility] O:ESCCOL Isolated Urine Culture - [facility] [place] Count Organism: 1.1 Antibiotic Interpretation KAL Status Urine Culture - [facility] Amikacin S F Urine Culture - [facility] Testing performed at [facility] O:ESCCOL Isolated Urine Culture - [facility] Cres[place] Count Organism: 1.1 Antibiotic Interpretation KAL Status Urine Culture - [facility] Amoxicillin/Clavula hermilo e S F Urine Culture - [facility] Testing performed at [facility] O:ESCCOL Isolated Urine Culture - [facility] Cres[place] Count Organism: 1.1 Antibiotic Interpretation KAL Status Urine Culture - [facility] Ampicillin R F Urine Culture - [facility] Testing performed at [facility] O:ESCCOL Isolated Urine Culture - [facility] Cres[place] Count Organism: 1.1 Antibiotic Interpretation KAL Status Urine Culture - [facility] Aztreonam S F Urine Culture - [facility] Testing performed at [facility] O:ESCCOL Isolated Urine Culture - [facility] Creswell Count Organism: 1.1 Antibiotic Interpretation KAL Status Urine Culture - [facility] Ceftazidime S F Urine Culture - [facility] Testing performed at [facility] O:ESCCOL Isolated Urine Culture - [facility] Cres[place] Count Organism: 1.1 Antibiotic Interpretation KAL Status Urine Culture - [facility] Ceftazidime/Avibact am S F Urine Culture - [facility] Testing performed at [facility] O:ESCCOL Isolated Urine Culture - [facility] Cres[place] Count Organism: 1.1 Antibiotic Interpretation KAL Status Urine Culture - [facility] Ceftolozane/Tazobac tripp S F Urine Culture - [facility] Testing performed at [facility] O:ESCCOL Isolated Urine Culture - [facility] Cres[place] Count Organism: 1.1 Antibiotic Interpretation KAL Status Urine Culture - [facility] Ciprofloxacin R F Urine Culture - [facility] Testing performed at [facility] O:ESCCOL Isolated Urine Culture - [facility] Cres[place] Count Organism: 1.1 Antibiotic Interpretation KAL Status Urine Culture - [facility] Ertapenem S F Urine Culture - [facility] Testing performed at [facility] O:ESCCOL Isolated Urine Culture - [facility] [place] Count Organism: 1.1 Antibiotic Interpretation KAL Status Urine Culture - [facility] Gentamicin S F Urine Culture - [facility] Testing performed at [facility] O:ESCCOL Isolated Urine Culture - [facility] [place] Count Organism: 1.1 Antibiotic Interpretation KAL Status Urine Culture - [facility] Levofloxacin R F Urine Culture - [facility] Testing performed at [facility] O:ESCCOL Isolated Urine Culture - [facility] Cres[place] Count Organism: 1.1 Antibiotic Interpretation KAL Status Urine Culture - [facility] Meropenem S F Urine Culture - [facility] Testing performed at [facility] O:ESCCOL Isolated Urine Culture - [facility] Cres[place] Count Organism: 1.1 Antibiotic Interpretation KAL Status Urine Culture - [facility] Meropenem/Vaborbact am S F Urine Culture - [facility] Testing performed at [facility] O:ESCCOL Isolated Urine Culture - [facility] Creswell Count Organism: 1.1 Antibiotic Interpretation KAL Status Urine Culture - [facility] Nitrofurantoin S F Urine Culture - [facility] Testing performed at [facility] O:ESCCOL Isolated Urine Culture - [facility] Cres[place] Count Organism: 1.1 Antibiotic Interpretation KAL Status Urine Culture - [facility] Tetracycline S F Urine Culture - [facility] Testing performed at [facility] O:ESCCOL Isolated Urine Culture - [facility] [place] Count Organism: 1.1 Antibiotic Interpretation KAL Status Urine Culture - [facility] Tigecycline S F Urine Culture - [facility] Testing performed at [facility] O:ESCCOL Isolated Urine Culture - [facility] Creswell Count Organism: 1.1 Antibiotic Interpretation KAL Status Urine Culture - [facility] Tobramycin S F Urine Culture - [facility] Testing performed at [facility] O:ESCCOL Isolated Urine Culture - [facility] Cres[place] Count Organism: 1.1 Antibiotic Interpretation KAL Status Urine Culture - [facility] Ampicillin/Sulbacta m R F Urine Culture - [facility] Testing performed at [facility] O:ESCCOL Isolated Urine Culture - [facility] Cres[place] Count Organism: 1.1 Antibiotic Interpretation KAL Status Urine Culture - [facility] Cefazolin S F Urine Culture - [facility] Testing performed at [facility] O:ESCCOL Isolated Urine Culture - [facility] Creswell Count Organism: 1.1 Antibiotic Interpretation KAL Status Urine Culture - [facility] Cefepime S F Urine Culture - [facility] Testing performed at [facility] O:ESCCOL Isolated Urine Culture - [facility] Cres[place] Count Organism: 1.1 Antibiotic Interpretation KAL Status Urine Culture - [facility] Ceftriaxone S F Urine Culture - [facility] Testing performed at [facility] O:ESCCOL Isolated Urine Culture - [facility] Cres[place] Count Organism: 1.1 Antibiotic Interpretation KAL Status Urine Culture - [facility] Cefuroxime S F Urine Culture - [facility] Testing performed at [facility] O:ESCCOL Isolated Urine Culture - [facility] Creswell Count Organism: 1.1 Antibiotic Interpretation KLA Status Urine Culture - [facility] Piperacillin/Tazoba cta m S F Urine Culture - [facility] Testing performed at [facility] O:ESCCOL Isolated Urine Culture - [facility] Creswell Count Organism: 1.1 Antibiotic Interpretation KAL Status Urine Culture - [facility] Trimethoprim/Sulfa S F Urine Culture - [facility] Testing performed at [facility] O:ESCCOL Isolated Urine Culture - [facility] Cres[place] Count Organism: 1.1 Antibiotic Interpretation KAL Status Performing Lab: see note - [facility] LB SEE REPORT - Core Mounter Id information not found for OBX-specific bee producer legend LACTATE or LACTIC ACID Reviewed date:03/06/2025 01:58:57 PM Interpretation: Performing Lab: Notes/Report: [facility] , Lactate/Lactic Acid 3.8 0.4-2.0 mmol/L RESULT S CALLED TO emerald dominguez rn Performing Lab: see note - [facility] LB CBC no Diff (Hemogram) Reviewed date:03/06/2025 01:58:57 PM Interpretation: Performing Lab: Notes/Report: [facility] , White Blood Count 4.3 4.0-11.0 10 [...] 10.8 9.5-13.5 fL Performing Lab: see note ML - [facility] LB LACTATE or LACTIC ACID Reviewed date:03/06/2025 08:03:40 PM Interpretation: Performing Lab: Notes/Report: [facility] , Lactate/Lactic Acid 3.2 0.4-2.0 mmol/L RESULT S CALLED TO EMERALD DOMINGUEZ RN Performing Lab: see note - [facility] LB AMMONIA Reviewed date:03/07/2025 09:11:26 PM Interpretation: Performing Lab: Notes/Report: [facility] , Ammonia 68 11-32 umol/L RESULTS CALLED TO MARIA C HARGROVE RN @BY Zo Juarez at 0636 Performing Lab: see note - [facility] LB CBC AUTO DIFF Reviewed date:03/07/2025 09:11:26 PM Interpretation: Performing Lab: Notes/Report: [facility] , White Blood Count 4.4 4.0-11.0 10 [...] 3/uL Performing Lab: see note ML - [facility] LB PROF 14(COMP METB) Reviewed date:03/07/2025 09:11:26 PM Interpretation: Performing Lab: Notes/Report: [facility] , Sodium 137 136-145 mmol/L Potassium 5.3 [...] Performing Lab: see note ML - [facility] LB CBC AUTO DIFF Reviewed date:03/11/2025 08:05:20 PM Interpretation: Performing Lab: Notes/Report: [facility] , White Blood Count 4.6 4.0-11.0 10 [...] 3/uL Performing Lab: see note ML - [facility] LB PROF 14(COMP METB) Reviewed date:03/11/2025 08:05:20 PM Interpretation: Performing Lab: Notes/Report: [facility] , Sodium 140 136-145 mmol/L Potassium 4.5 [...] Performing Lab: see note ML - [facility] LB CBC AUTO DIFF Reviewed date:04/22/2025 09:31:14 PM Interpretation: Performing Lab: Notes/Report: [facility] , White Blood Count 5.9 4.0-11.0 10 [...] 9.5-13.5 fL Performing Lab: see note - [facility] LB Manual Differential Reviewed date:04/22/2025 09:31:14 PM Interpretation: Performing Lab: Notes/Report: [facility] , Segmented Neutrophils % Manual 67.0 43.0-75.0 [...] 10 3/uL Basophils Abs Manual 0.00 0.00-0.10 10 3/uL Hypochromasia 1+ Anisocytosis 2+ Performing Lab: see note - [facility] LB CBC AUTO DIFF Reviewed date:04/30/2025 04:34:17 PM Interpretation: Performing Lab: Notes/Report: [facility] , White Blood Count 6.5 4.0-11.0 10 [...] Performing Lab: see note ML - [facility] LB CBC AUTO DIFF Reviewed date:06/10/2025 06:33:06 PM Interpretation: Performing Lab: Notes/Report: [facility] , White Blood Count 6.6 4.0-11.0 10 3/uL Red Blood Count 3.33 4.20-5.40 10 6/uL Hemoglobin 7.3 12.0-16.0 g/dL Hematocrit 26.0 36.0-48.0 % Mean Corpuscular Volume 78.1 81.0-99.0 fL Mean Corpuscular Hemoglobin 21.9 26.7-34.0 pg Mean Corpuscular HGB Conc 28.1 29.9-35.2 g/dL Red Cell Distribution Width 16.0 11.0-15.0 % Platelet Count 204 150-450 10 3/uL Mean Platelet Volume 9.9 9.5-13.5 fL Neutrophils Percent Auto 58.5 43.0-75.0 % Lymphocytes Percent Auto 30.1 20.5-60.0 % Monocytes Percent Auto 5.3 1.7-12.0 % Eosinophils Percent Auto 5.3 0.9-7.0 % Basophils Percent Auto 0.6 0.2-2.0 % Immature Granulocytes Pct Auto 0.2 0.0-0.5 % Neutrophils Absolute Auto 3.8 1.4-6.5 10 3/uL Lymphocytes Absolute Auto 2.0 1.2-3.8 10 3/uL Monocytes Absolute Auto 0.4 0.3-0.8 10 3/uL Eosinophils Absolute Auto 0.4 0.0-0.7 10 3/uL Basophils Absolute Auto 0.0 0.0-0.1 10 3/uL Immature Granulocytes Abs Auto 0.01 0.00-0.03 10 3/uL Performing Lab: see note ML - [facility] PROF CHEM 8 (BAS METB) Reviewed date:06/10/2025 06:33:06 PM Interpretation: Performing Lab: Notes/Report: [facility] , Sodium 140 136-145 mmol/L Potassium 5.1 3.5-5.1 mmol/L Chloride 104 98-107 mmol/L Carbon Dioxide 25.7 21.0-32.0 mmol/L Anion Gap 15.4 Glucose 213 74-106 mg/dL Blood Urea Nitrogen 40.0 7.0-18.0 mg/dL Creatinine 1.32 0.55-1.02 mg/dL Estimated GFR ( Madiha 48 >=60 mL/min/1.73m 2 Estimated GFR (Non- Ana Luisa 40 >=60 mL/min/1.73m 2 BUN Creatinine Ratio 30.3 Calcium 9.5 8.5-10.1 mg/dL Performing Lab: see note ML - [facility] LB PTT Reviewed date:07/11/2025 05:21:57 PM Interpretation: Performing Lab: Notes/Report: [facility] , Partial Thromboplastin Time 26.5 22.3-36.2 sec Performing Lab: see note - [facility] LB Prothrombin Time INR Reviewed date:07/11/2025 05:21:57 PM Interpretation: Performing Lab: Notes/Report: [facility] , Prothrombin Time 10.9 9.0-11.6 sec INR 1.03 DESIRED INR: 2.0-3.0 CONDITIONS NOT LISTED BELOW 2.5-3.5 FOR PROSTHETIC HEART VALVE REPLACEMENT 2.5-3.5 RECURRENT THROMBOSIS Performing Lab: see note ML - [facility] LB Packed Red Blood Cells Reviewed date:07/14/2025 11:17:02 AM Interpretation: Performing Lab: Notes/Report: Packed Red Blood Cells [id number] OP RC TRANSFUSED 07/12/25 1634 [id number] OP RC TRANSFUSED 07/12/25 1931 Type and Screen Reviewed date:07/14/2025 11:17:02 AM Interpretation: Performing Lab: Notes/Report: [facility] , Blood Type O Positive Antibody Screen POSITIVE Transferrin Reviewed date:07/12/2025 12:51:28 PM Interpretation: Performing Lab: Notes/Report: [facility] , Transferrin 377 192-364 mg/dL Performed at: - [facility] [address] [id number] Clinical Leader: Dennis Garcias PhD, Phone: [phone] Performing Lab: see note - [facility] LB PROF 14(COMP METB) Reviewed date:07/12/2025 12:51:28 PM Interpretation: Performing Lab: Notes/Report: [facility] , Sodium 140 136-145 mmol/L Potassium 4.0 3.5-5.1 mmol/L Chloride 104 98-107 mmol/L Carbon Dioxide 27.6 21.0-32.0 mmol/L Anion Gap 12.4 Glucose 262 74-106 mg/dL Blood Urea Nitrogen 41.0 7.0-18.0 mg/dL Creatinine 1.17 0.55-1.02 mg/dL Estimated GFR ( Madiha 56 >=60 mL/min/1.73m 2 Estimated GFR (Non- Ana Luisa 46 >=60 mL/min/1.73m 2 BUN Creatinine Ratio 35.0 Calcium 8.0 8.5-10.1 mg/dL Bilirubin Total 0.8 0.2-1.0 mg/dL Aspartate Amino Transferase 17 15-37 U/L Alanine Aminotransferase 29 14-59 U/L Alkaline Phosphatase 90 46-116 U/L Total Protein 6.1 6.4-8.2 g/dL Albumin Level 2.5 3.4-5.0 g/dL Globulin 3.6 Albumin Globulin Ratio 0.7 Performing Lab: see note - [facility] LB CBC no Diff (Hemogram) Reviewed date:07/12/2025 12:51:28 PM Interpretation: Performing Lab: Notes/Report: [facility] , White Blood Count 4.3 4.0-11.0 10 3/uL Red Blood Count 2.52 4.20-5.40 10 6/uL Hemoglobin 5.6 12.0-16.0 g/dL RESULTS CALLED TO Faviola Hargrove RN @BY Shelton Fernando MLT at 0629 Hematocrit 19.4 36.0-48.0 % RESULTS CALLED TO Faviola Hargrove RN @BY Shelton Fernando MLT at 0629 Mean Corpuscular Volume 77.0 81.0-99.0 fL Mean Corpuscular Hemoglobin 22.2 26.7-34.0 pg Mean Corpuscular HGB Conc 28.9 29.9-35.2 g/dL Red Cell Distribution Width 17.4 11.0-15.0 % Platelet Count 183 150-450 10 3/uL Mean Platelet Volume 10.8 9.5-13.5 fL Performing Lab: see note - [facility] Reason For Referral Diagnosis 1 Blood loss anemia (D 50.0) Referral Organization [facility] Referring Provider First Name Shaq Referring Provider Last Name Erik Referring Provider [facility] kelley Referred Provider Manoj Damon Referred Provider Specialty General Surg josé antonio Referral Priority Routine Diagnosis 1 Unspecified cirrhosi s of liver (K74.60) Referral Organization [facility] Referring Provider First Name Shaq Referring Provider Last Name Erik Referring Provider [facility] kelley Referred Organization [facility] Referred Provider Blanca Mak Referred Address [address] [facility],[place], [place],[address], Referred Provider Specialty Gastroentero logy Referral Priority Routine Diagnosis 1 Blood loss anemia (D 50.0) Referral Organization [facility] Referring Provider First Name Shaq Referring Provider Last Name gudelia Referring Provider [facility] kelley Referred Provider Jesus Emerson Referred Provider Specialty Gastroentero logy Referral Priority Routine Diagnosis 1 Iron deficiency anem ia (D50.9) Referral Organization [facility] Referring Provider First Name Shaq Referring Provider Last Name Erik Referring Provider Speciality Family Pa benson Referred Provider Soila Victor Referred Provider Specialty Hematology/O ncology Referral Priority Routine Medications Medication SIG (Take, Route, Frequency, Duration) Notes Start Date End Date Status metFORMIN HCl 500 mg Take 2 tablets oral ly twice daily; Duration: 90 days Active Magnesium 400 MG 1 capsule Orally Twi ce a day; Duration: 90 days Active Blood Glucose Meter -- Use meter to christina tor glucose daily DX E11.9; Duration: 365 days 11/20/2024 Active Simvastatin 20 mg TAKE 1 TABLET DAILY Active Pantoprazole Sodium 40 mg 1 tablet oral q day Active Sucralfate 1 GM 1 tablet on an empty stomach Orally qid; Duration: 30 days 09/27/2024 Active Cefdinir 300 MG TAKE 2 CAPSULES BY M OUTH DAILY FOR 10 DAYS Oral; Duration: 10 Days Active Eliquis 2.5 MG 1 tablet Orally Twic e a day; Duration: 90 days 05/27/2023 Active Ondansetron 4 MG 1 tablet on the tong ue and allow to dissolve Orally qid 07/23/2025 Active Spironolactone 25 MG 1 tablet Orally Onc e a day; Duration: 3 days 11/26/2024 Active Ferrous Sulfate 324 (65 Fe) MG Oral; Duration: 60 Days Acti ve Venlafaxine HCl ER 75 mg TAKE 1 CAPSULE DAILY Active Test Strips - Use 1 strip to monit or glucose daily DX E11.9; Duration: 90 days 11/20/2024 Active Glimepiride 2 MG Oral; Duration: 30 Days Active Furosemide 20 MG 1 tablet Orally Once a day; Duration: 30 days 12/25/2024 Active Lisinopril 2.5 MG Oral; Duration: 30 Days Active Lancets 33G - Use 1 lancet to poke finger daily DX E11.9; Duration: 90 days 11/20/2024 Active Social History Alcohol Screen (Audit-C) Question [...] Problem Status W/U Status Risk Notes Problem Anemia (161420553) Anemia, unspe cified (D64.9) Active confirmed Problem Hyperlipidemia (35569988) Hyperlipidemia, unspecified (E78.5) Active confirmed Problem Hypomagnesemia (598522014) Hypomagnesemia (E83.42) Active confirmed Problem Palpitations (05423290) Palpitations (R00.2) Active confirmed Problem Hypertension (27269562) Hypertension (I10) Active confirmed Problem Congestive heart failure (03916108) CHF (congestive heart failure) (I50.9) Active confirmed Problem Dyslipidemia (078038251) Dyslipidemia (E78.5) Active confirmed Problem Atrial fibrillation (disorder) (96531502) Afib (I48.91) Active confirmed Problem Chronic kidney disea se (985943050) Chronic kidney disease (N18.9) Active confirmed Problem Anemia (242744021) Anemia (D64.9) Active confir med Problem Essential hypertensi on (81205961) Benign essential HTN (I10) Active confirmed Problem Sleep apnea (09176747) 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 ea (G47.30) Active confirmed Problem Atrial fibrillation (66592319) Atrial fibrillation (I48.91) Active confirmed Problem Type 2 diabetes mellitus (78369850) DM type 2 (diabetes mellitus, type 2) (E11.9) Active confirmed Problem Disorder of lumbar disc (527061505) Lumbar disc disease (M51.9) Active confirmed Problem Cirrhotic (085490512) Cirrhosis (K74.60) Active confirmed Problem Acute bronchitis (73075266) Acute bronchitis, unspecified organism (J20.9) Active confirmed Problem Atrial fibrillation (63260295) Atrial fibrillation with RVR (I48.91) Active confirmed Problem Iron deficiency anem ia (24877448) Iron deficiency anemia (D50.9) Active confirmed Problem Cataract (030112066) Cataract (H26.9) Active co nfirmed Problem Chest wall pain (679081339) Chest wall pain (R07.89) Active confirmed Problem Anemia due to chroni c blood loss (526678606) Blood loss anemia (D50.0) Active confirmed Problem Tear of left rotator cuff (29304006248216457) Rotator cuff tear, left (M75.102) Active confirmed Problem Fluid overload (45633013) Fluid overload (E87.70) Active confirmed Problem Diverticular disease of colon (405718577) Diverticula of colon (K57.30) Active confirmed Problem Cervical strain (163129171) Cervical strain (S16.1XXA) Active confirmed Problem Pruritic disorders (188499516) Pruritic condition (L29.9) Active confirmed Problem Dry eye syndrome (30225172) Dry eye syndrome (H04.129) Active confirmed Problem Altered mental statu s (858549649) Altered mental state (R41.82) Active confirmed Problem Gastrointestinal hemorrhage (09438573) Upper GI bleed (K92.2) Active confirmed Problem Bicipital tenosynovitis (84214930) Biceps tendinitis of left shoulder (M75.22) Active confirmed Problem Cirrhosis - non-alcoholic (308189746) Cirrhosis of liver with ascites (K74.60) Active confirmed Problem Essential hypertensi on (96381825) BP (high blood pressure) (I10) Active confirmed Problem hypercholesterolemia (disorder) (36789247) Hypercholesteremia (E78.00) Active confirmed Problem 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, unspecified longterm insulin use status (E11.3293) Active confirmed Problem Clostridial gastroenteritis (80396430) Enterocolitis due to Clostridium difficile, not specified as recurrent (A04.72) Active confirmed Problem Type II diabetes mellitus without complication (206721084) Diabetes (E11.9) Active confirmed Problem Diabetes mellitus (22563224) Diabetes mellitus (E11.9) Active confirmed Vital Signs Temperature 98.9 degrees Fahrenheit 12/17/2024 Blood pressure diastolic 60 mm Hg 07/18/2025 Height 66 in 07/18/2025 Blood pressure systolic 130 mm Hg 07/18/2025 Weight 190.8 lbs 07/18/2025 BMI 30.79 kg/m2 07/18/2025 Encounters Encounter Location Date Provider Diagnosis [facility] [address] [place] [address] 08/05/2025 Shaq Hoy Chest wall pain R07. 89 [facility] [address] [place] [address] 07/15/2025 Shaq Hoy [facility] [address] [place] [address] 07/15/2025 Shaq Erik [facility] [address] [place] [address] 07/16/2025 Shaq Hoy Iron deficiency anem ia D50.9 [facility] [address] [facility] [place] [address] 07/18/2025 Shaq Hoy Chest wall pain R07. 89 [facility] [address] [facility] [place] [address] 07/23/2025 Shaq Njy [facility] [address] [facility] [place] [address] 07/30/2025 Shaq Hoy Iron deficiency anem ia D50.9 [facility] [address] [facility] [place] [address] 03/25/2025 Shaq Njy [facility] [address] [facility] [place] [address] 04/02/2025 Shaq Hoy Chest wall pain R07. 89 [facility] [address] [facility] [place] [address] 04/10/2025 Shaq Erik [facility] [address] [facility] [place] [address] 04/19/2025 Shaq Erik [facility] [address] [facility] [place] [address] 07/11/2025 Shaq Erik [facility] [address] [place] [address] 07/15/2025 Shaq Erik [facility] [address] [place] [address] 03/05/2025 Shaq y [facility] [address] [place] [address] 03/05/2025 Shaq Njy [facility] [address] [facility] [place] [address] 03/07/2025 Shaq Hoy Upper GI bleed K92.2 and Acute kidney failure, unspecified N17.9 [facility] [address] [facility]], [place] [address] 03/09/2025 Shaq Valencia [facility] [address] [facility] [place] [address] 03/11/2025 Shaq Valencia [facility] [address] [facility] [place] [address] 03/18/2025 Shaq Valencia [facility] [address] [place] [facility] [place] [address] 12/28/2024 Shaq Valencia Chronic kidney disea se N18.9 [facility] [address] [facility]], [place] [address] 12/31/2024 Shaq Valencia [facility] [address] [facility]], [place] [address] 12/31/2024 Shaq Hoy Unspecified cirrhosi s of liver K74.60 and Gastrointestinal hemorrhage, unspecified K92.2 [facility] [address] [facility]], [place] [address] 01/02/2025 Shaq Erik [facility] [address] [facility]], [place] [address] 01/04/2025 Shaq Hoy Blood loss anemia D5 0.0 and Cirrhosis K74.60 [facility] [address] [facility]], [place] [address] 03/04/2025 Shaq Hoy Anemia D64.9 ; Hypertension I10 and Blood loss anemia D50.0 [facility] [address] [facility]], [place] [address] 11/23/2024 Shaq Valencia [facility] [address] [facility] [place] [address] 11/26/2024 Shaq Valencia [facility] [address] [facility] [place] [address] 11/26/2024 Shaq Valencia [facility] [address] [facility]], [place] [address] 11/30/2024 Shaq Mauroy Cervical strain S16. 1XXA [facility] [address] [place] [address] 12/13/2024 Shaq Erik [facility] [address] [place] [address] 12/26/2024 Shaq Hoy Chest wall pain R07. 89 [facility] [address] [place] [address] 10/01/2024 Shaq Valencia Anemia, unspecified D64.9 [facility] [address] [facility] [place] [address] 10/07/2024 Shaq Valencia [facility] [address] [facility] [place] [address] 10/08/2024 Shaq Valencia [facility] [address] [facility] [place] [address] 11/19/2024 Shaq Valencia Medication managemen t Z79.899 [facility] [address] [facility] [place] [address] 11/22/2024 Shaq Valencia [facility] [address] [place] [address] 11/22/2024 Shaq Valencia [facility] [address] [place] [address] 08/31/2024 Shaq Maurogudelia [facility] [address] [place] [address] 09/14/2024 Shaq Hoy Chest wall pain R07. 89 [facility] [address] [facility] [place] [address] 09/17/2024 Shaq Valencia Hypertension I10 ; Chronic kidney disease N18.9 ; DM type 2 (diabetes mellitus, type 2) E11.9 ; Atrial fibrillation I48.91 and Chest wall pain R07.89 [facility] [address] [facility] [place] [address] 09/21/2024 Shannan Swain [facility] [address] [facility] [place] [address] 09/23/2024 Shaq Valencia [facility] [address] [place] [address] 09/29/2024 Shaq Hoy Anemia, unspecified D64.[address] [address] 11/12/2024 Shaq Hoy Cervical strain S16. 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, unspecified sanitation lead insulin use status E11.3293 and Cervical strain S16.1XXA [address] [address] 12/17/2024 Shaq Hoy Palpitations R00.2 ; Hypertension I10 ; Atrial fibrillation I48.91 and DM type 2 (diabetes mellitus, type 2) E11.[address] [address] 12/25/2024 Shaq Hoy Chronic kidney disea se N18.9 ; Hypertension I10 and Fluid overload E87.[address] [address] 12/28/2024 Shaq Hoy Hypertension I10 and Fluid overload E87.[address] [address] 01/04/2025 Shaq Hoy Upper GI bleed K92.2 and Cirrhosis K74.[address] [address] 03/14/2025 Shaq Hoy Gastroenteritis K52. 9 and Cirrhosis K74.60 [facility] [address] [facility] [place] [address] 07/18/2025 Shaq Hoy Hypertension I10 ; A trial fibrillation I48.91 ; Blood loss anemia D50.0 and Itching L29.9 Assessments Encounter Date Diagnosis (ICD Code) Assessment [...] East back into eating by eating bland, ggnl-td-abggsu foods like crackers, toast, gelatin, bananas, rice and chicken. Try to avoid foods/substances including dairy products, caffeine, alcohol, nicotine and fatty or highly seasoned foods. Medications such as ibuprofen or tylenol can make your stomach more upset, so use sparingly if at all. Also avoid cews-ahk-wtbxpik anti-diarrheal medications because it can make it harder for your body to eliminate the virus. 03/14/2025 Cirrhosis (ICD-10 - K74.60) 06/19/2025 Pruritic condition (ICD-10 - L29.9) 06/19/2025 Atrial fibrillation (ICD-10 - I48.91) 07/18/2025 Hypertension (ICD-10 - I10) 07/18/2025 Atrial fibrillation (ICD-10 - I48.91) 12/17/2024 Palpitations (ICD-10 - R00.2) 12/17/2024 Hypertension (ICD-10 - I10) 12/25/2024 Chronic kidney disease (ICD-10 - N18.9) 12/25/2024 Hypertension (ICD-10 - I10) 09/27/2024 Atrial fibrillation (ICD-10 - I48.91) 09/27/2024 Hypertension (ICD-10 - I10) 11/12/2024 Cervical strain (ICD-10 - S16.1XXA) 11/26/2024 Palpitations (ICD-10 - R00.2) 11/26/2024 Atrial fibrillation (ICD-10 - I48.91) still some patel 09/14/2024 Chest wall pain (ICD-10 - R07.89) [...] 04/02/2025 Chest wall pain (ICD-10 - R07.89) 07/16/2025 Iron deficiency anemia (ICD-10 - D50.9) 07/18/2025 Chest wall pain (ICD-10 - R07.89) 07/30/2025 Iron deficiency anemia (ICD-10 - D50.9) 08/05/2025 Chest wall pain (ICD-10 - R07.89) 03/04/2025 Blood loss anemia (ICD-10 - D50.0) 09/17/2024 DM type 2 (diabetes mellitus, type 2) (ICD-10 - E11.9) 11/26/2024 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, unspecified longterm insulin use status (ICD-10 - E11.3293) 09/27/2024 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, unspecified sanitation lead insulin use status (ICD-10 - E11.3293) 12/25/2024 Fluid overload (ICD-10 - E87.70) 12/17/2024 Atrial fibrillation (ICD-10 - I48.91) 07/18/2025 Blood loss anemia (ICD-10 - D50.0) allergic reaction to antibiotic 07/18/2025 Itching (ICD-10 - L29.9) 12/17/2024 DM type 2 (diabetes mellitus, type 2) (ICD-10 - E11.9) 09/27/2024 Blood loss anemia (ICD-10 - D50.0) needs EGD 11/26/2024 Cervical strain (ICD-10 - S16.1XXA) 09/17/2024 Atrial fibrillation (ICD-10 - I48.91) 09/17/2024 Chest wall pain (ICD-10 - R07.89) Plan Of Treatment Pending Test Test Name Order Date CMP (COMPLETE METABOLIC PANEL) DIGOXIN (LANOXIN) 11/19/2024 CARDIO Holter Event Monitor 4 weeks 05/2023 CBC 07/30/2025 COMPREHENSIVE METABOLIC PROFILE WITH GFR 09/17/2024 OCCULT BLOOD, FECAL, IMMUNOASSAY 024 CMP - Comprehensive Metabolic Panel 02/19 CMP - Comprehensive Metabolic Panel 02/19 PT and PTT 03/04/2025 CBC W/AUTO DIFF 03/07/2025 CBC W/AUTO DIFF 10/01/2024 CBC W/AUTO DIFF 09/17/2024 BNP 11/19/2024 CBC AUTO DIFF 11/19/2024 CBC AUTO DIFF 03/14/2025 Covid-19 PCR (CVDTBH) 06/22/2024 IRON 07/30/2025 TYPE AND SCREEN 09/27/2024 CT CHEST WO [...] End Date MEDICARE [place] [address] [place] [address] [id number] Connie Brian Self - patient is the insured Medications Administered Medication Instructions Date of Administration Dosage Notes Dexamethasone, 4mg/mL 11/12/2024 12 mg Dexamethasone, 4mg/mL 06/19/2025 8 mg Ketorolac Tromethamine 11/12/2024 60 mg Triamcinolone 40 mg/ml 07/18/2025 80 mg Medical (General) History Medical History History ICD Code Uterine Cancer Palpitations R00.2 Type 2 diabetes mellitus wit h mild nonproliferative retinopathy of both eyes without macular edema, unspecified sanitation lead insulin use status E11.3293 Cataract H26.9 Dry eye syndrome H04.129 Lumbar disc disease M51.9 Hypercholesteremia E78.00 Hypertension I10 Diverticula of colon K57.30 Chronic kidney disease N18.9 Atrial fibrillation I48.91 Kidney stone N20.0 DUB (dysfunctional uterine bleeding) N93 .8 Anemia D64.9 Right rib fracture S22.31XA Injury to Spleen Surgical History Surgery Date(Month/Year) EGD and Colonoscopy- [facility] 06/2025 atrial fib ablation 06/13/25 Hystertectomy 2010 Appendix 1985 Gallbladder 1985 Tonsils and Adenoids 1960 Csection 1988 Hernia Rotator Cuff Repair 2016 Herniorrhaphy, Dr. Mullins EGD and Colonoscopy- dr Damon 11/01/2024 Hospitalization History Reason Date(Month/Year) Anemia 06/2025 Cardiac Ablation 06/13/2025 low HGB 02/2025 GI bleed 01/15 UTI, A-fib, C-diff 11/13 A-Fib 06/12 See Above
--- OUTSIDE RECORDS SUMMARY | 2025-08-07 08:56 | XMS_ITS | Clinical Summary ---
Author Organization [employer] Address [id number] [address] [place] [address] Care Team Providers Care Cane Piler Name Role Phone Harry Valencia MD Primary Care Provider [phone] Allergies Active Allergy Reactions Criticality Noted Date [...] Encounters Date Type Department Care Team Description 07/30/2025 Travel from Last 3 Months Immunizations Immunization [...] Risk Screening 2021 COVID-19 Vaccine (3 - 2024-2 6 season) 2025 09/29/2021, 01/25/2021 Influenza Vaccine 07/22/2025 12/29/2024, , 08/11/2021, Additional history exists Adult BMI Screening 04/25/2026 04/25/2025 DTaP,Tdap and Td Vaccines (3 - Td or Tdap) 07/20/2032 07/20/2022, 03/12/2016 Medical Devices Not on file Procedures Procedure Name Priority Date/Time Associated Diagnosis Comments FIBROTEST-ACTITEST, S Routine 07/30/2025 3:14 PM EDT Anemia, unspecified Abnormal results of liver function studies PROTIME & INR Routine 07/30/2025 3:14 PM EDT Anemia, unspecified Abnormal results of liver function studies MAGNESIUM Routine 07/30/2025 3:14 PM EDT Anemia, unspecified Abnormal results of liver function studies BASIC METABOLIC PANEL Routine 07/30/2025 3:14 PM EDT Anemia, unspecified Abnormal results of liver function studies LIVER PANEL Routine 07/30/2025 3:14 PM EDT Anemia, unspecified Abnormal results of liver function studies ALPHA FETOPROTEIN Routine 07/30/2025 3:1 4 PM EDT Anemia, unspecified Abnormal results of liver function studies VITAMIN B12 Routine 07/30/2025 3:14 PM EDT Anemia, unspecified Abnormal results of liver function studies CBC (NO DIFF) Routine 07/30/2025 3:14 PM EDT Anemia, unspecified Abnormal results of liver function studies FERRITIN Routine 07/30/2025 3:14 PM EDT Anemia, unspecified Abnormal results of liver function studies IRON AND TIBC Routine 07/30/2025 3:14 PM EDT Anemia, unspecified Abnormal results of liver function studies VITAMIN D 25 HYDROXY Routine 07/30/2025 3:14 PM EDT Anemia, unspecified Abnormal results of liver function studies from Last 3 Months Results * (ABNORMAL) FibroTest-ActiTest, S (07/30/2025 3:14 PM EDT) BILIRUBIN, TOTAL, S 0.4 0.0 - 1.2 mg/dL 07/31/2025 9:59 PM EDT [facility] Comment: Test Performed by: [facility] [address] [place] [address] Internet Marketing Assistant: Neyda Gutierrez Ph.D.; CLIA# [id number] Test Performed by: [facility] [address] [place] [address] Internet Marketing Assistant: Neyda Gutierrez Ph.D.; CLIA# [id number] ALANINE AMINOTRANSFERATE (ALT), S 67(H) 7 - 45 U/L 07/31/2025 9:59 PM EDT [facility] ALPHA-2 MACROGLOBULIN, S 313(H) 100 - 280 mg/dL 07/31/2025 9:59 PM EDT [facility] APOLIPOPROTEIN A1, S 133(L) >=140 mg/dL 07/31/2025 9:59 PM EDT [facility] GAMMA GLUTAMYLTRANSFERASE (GGT), S 171(H) 5 - 36 U/L 07/31/2025 9:59 PM EDT [facility] HAPTOGLOBIN, S 176 30 - 200 mg/dL 07/31/2025 9:59 PM EDT [facility] Fibrotest Score 0.60 9:59 PM EDT [facility] FIBROTEST STAGE F3 9:59 PM EDT [facility] FIBROTEST INTERPRETATION advanced fibrosis 07/31/2025 9:59 PM EDT [facility] Comment: FibroTest estimates liver fibrosis FibroTest Score Stage Interpretation 0.00-0.21 F0 no fibrosis 0.21-0.27 F0-F1 no fibrosis 0.27-0.31 F1 minimal fibrosis 0.31-0.48 F1-F2 minimal fibrosis 0.48-0.58 F2 moderate fibrosis 0.58-0.72 F3 advanced fibrosis 0.72-0.74 F3-F4 advanced fibrosis 0.74-1.00 F4 severe fibrosis (Cirrhosis) ACITEST SCORE 0.51 07/31/2025 9:59 PM EDT [facility] ACITEST GRADE A1-A2 07/31/2025 9:59 PM EDT [facility] ACTITEST INTERPRETATION minimal activity 07/31/2025 9:59 PM EDT [facility] Comment: ActiTest estimates necroinflammatory activity ActiTest Score Grade Interpretation 0.00-0.17 A0 no activity 0.17-0.29 A0-A1 no activity 0.29-0.36 A1 minimal activity 0.36-0.52 A1-A2 minimal activity 0.52-0.60 A2 significant activity 0.60-0.62 A2-A3 significant activity 0.62-1.00 A3 severe activity FIBROTEST-ACTITEST COMMENT SEE COMMENTS 07/31/2025 9:59 PM EDT [facility] Comment: The reliability of results is dependent on compliance with the preanalytical and analytical conditions recommended by [employer]. The tests have to be deferred for: [...] developed and its performance characteristics determined by [facility] in a manner consistent with CLIA requirements. This test has not been cleared or approved by the U.S. Food and Drug Administration. [employer] SERIAL NUMBER [id number] 07/31/2025 9:59 PM EDT [facility] imbookin (Pogby) Blood Venous blood / Unknown Venipuncture / Unknown 07/30/2025 3:14 PM EDT 07/30/2025 3:15 PM EDT us Aleena Craig OBSTETRICAL ANESTHESIOLOGIST-WEAVE ROOM SUPERVISOR LAB BLOOD ORDERABLES Irish l Result [facility] [address] [place] [address], * Iron and TIBC (07/30/2025 3:14 PM EDT) IRON 108 50 - 170 ug/dL 07/30/2025 5:37 PM EDT [facility] TRANSFERRIN 240 168 - 336 mg/dL 07/30/2025 5:37 PM EDT [facility] IRON BINDING 336 250 - 425 ug/dL 07/30/2025 5:37 PM EDT [facility] IRON SATURATION 32 15 - 50 % SATURATION 07/30/2025 5:37 PM EDT [facility] Blood Venous blood / Unknown Venipuncture / Unknown 07/30/2025 3:14 PM EDT 07/30/2025 3:15 PM EDT us Aleena D Enix OBSTETRICAL ANESTHESIOLOGIST-WEAVE ROOM SUPERVISOR LAB BLOOD ORDERABLES Irish l Result [facility] [address] [place] [address], * Alpha fetoprotein (07/30/2025 3:14 PM EDT) Pathologist [facility] ALPHA FETOPROTEIN 1.7 <=9.9 ng/mL 07/30/2025 5:13 PM EDT [facility] Blood Venous blood / Unknown Venipuncture / Unknown 07/30/2025 3:14 PM EDT 07/30/2025 3:15 PM EDT us Aleena D Enix OBSTETRICAL ANESTHESIOLOGIST-WEAVE ROOM SUPERVISOR LAB BLOOD ORDERABLES Irish l Result [facility] [address] [place] [address], [place] [phone] * Vitamin D 25 hydroxy (07/30/2025 3:14 PM EDT) Pathologist [facility] VITAMIN D 25 HYD TOT 34.2 30.0 - 100.0 ng/mL 07/30/2025 5:37 PM EDT [facility] Blood Venous blood / Unknown Venipuncture / Unknown 07/30/2025 3:14 PM EDT 07/30/2025 3:15 PM EDT Narrative [facility] - 07/30/2025 5:37 PM EDT Vitamin D status 25 [place] Vitamin D Deficiency <20 ng/mL Insufficiency 20-29 ng/mL Sufficiency 30-100 ng/mL Toxicity >100 ng/mL NOTE: A pediatric reference range has not been established by the rn camp of this kit. The [place] [employer] recommends a Vitamin D level of = or >20ng/mL in infants and children. us Aleena D Enix OBSTETRICAL ANESTHESIOLOGIST-WEAVE ROOM SUPERVISOR LAB BLOOD ORDERABLES Irish l Result [facility] [address] [place] [address], [place] [phone] * Protime & INR (07/30/2025 3:14 PM EDT) PROTIME 11.4 9.8 - 13.2 sec 07/30/2025 4:57 PM EDT [facility] INR 1.0 0.9 - 1.2 07/30/2025 4:57 PM EDT [facility] Blood Venous blood / Unknown Venipuncture / Unknown 07/30/2025 3:14 PM EDT 07/30/2025 3:15 PM EDT us Aleena D Enix OBSTETRICAL ANESTHESIOLOGIST-WEAVE ROOM SUPERVISOR LAB BLOOD ORDERABLES Irish l Result [facility] [address] [place] [address], [place] [phone] * (ABNORMAL) CBC without diff (07/30/2025 3:14 PM EDT) WBC 7.2 4 - 11 x10E9/L 07/30/2025 4:29 PM EDT [facility] RBC Count 3.34(L) 3.8 - 5.2 X10E12/L 07/30/2025 4:29 PM EDT [facility] Hemoglobin 9.0(L) 11.7 - 15.5 g/dL 07/30/2025 4:29 PM EDT [facility] Hematocrit 28.3(L) 35 - 47 % 07/30/2025 4:29 PM EDT [facility] MCV 85 80 - 100 fL 07/30/2025 4:29 PM EDT [facility] MCH 27.0 27 - 34 pg 07/30/2025 4:29 PM EDT [facility] MCHC 31.9(L) 32 - 36 g/dL 07/30/2025 4:29 PM EDT [facility] RDW 29.4(H) 11.5 - 15 % 07/30/2025 4:29 PM EDT [facility] Platelet Count 155 150 - 450 X10E9/L 07/30/2025 4:29 PM EDT [facility] MPV 8.0 7 - 12 fL 07/30/2025 4:29 PM EDT [facility] Blood Venous blood / Unknown Venipuncture / Unknown 07/30/2025 3:14 PM EDT 07/30/2025 3:15 PM EDT us Aleena Aliyah Craig OBSTETRICAL ANESTHESIOLOGIST-WEAVE ROOM SUPERVISOR LAB BLOOD ORDERABLES Irish l Result [facility] [address] [place] [address], * Magnesium (07/30/2025 3:14 PM EDT) [facility] MAGNESIUM 2.2 1.8 - 2.6 mg/dL 07/30/2025 5:37 PM EDT [facility] Blood Venous blood / Unknown Venipuncture / Unknown 07/30/2025 3:14 PM EDT 07/30/2025 3:15 PM EDT us Aleena D Enix OBSTETRICAL ANESTHESIOLOGIST-WEAVE ROOM SUPERVISOR LAB BLOOD ORDERABLES Irish l Result [facility] [address] [place] [address], [place] [phone] * (ABNORMAL) Ferritin (07/30/2025 3:14 PM EDT) [facility] FERRITIN 1,126(H) 11 - 307 ng/mL 07/30/2025 5:37 PM EDT [facility] Blood Venous blood / Unknown Venipuncture / Unknown 07/30/2025 3:14 PM EDT 07/30/2025 3:15 PM EDT us Aleena D Enix OBSTETRICAL ANESTHESIOLOGIST-WEAVE ROOM SUPERVISOR LAB BLOOD ORDERABLES Irish l Result [facility] [address] [place] [address], [place] [phone] * Vitamin B12 (07/30/2025 3:14 PM EDT) [facility] VITAMIN B12 388 180 - 914 pg/mL 07/30/2025 5:37 PM EDT [facility] Blood Venous blood / Unknown Venipuncture / Unknown 07/30/2025 3:14 PM EDT 07/30/2025 3:15 PM EDT us Aleena D Enix OBSTETRICAL ANESTHESIOLOGIST-WEAVE ROOM SUPERVISOR LAB BLOOD ORDERABLES Irish l Result [facility] [address] [place] [address], [place] [phone] * (ABNORMAL) Liver panel (07/30/2025 3:14 PM EDT) [facility] TOTAL PROTEIN 6.1 6.0 - 8.0 g/dL 07/30/2025 5:37 PM EDT [facility] ALBUMIN 3.6 3.2 - 5.3 g/dL 07/30/2025 5:37 PM EDT [facility] BILIRUBIN,TOTAL 0.5 0.3 - 1.2 mg/dL 07/30/2025 5:37 PM EDT [facility] ALKALINE PHOSPHATASE 120 39 - 130 U/L 07/30/2025 5:37 PM EDT [facility] AST 62(H) <=41 U/L 07/30/2025 5:37 PM EDT [facility] ALT 57(H) <=31 U/L 07/30/2025 5:37 PM EDT [facility] BILIRUBIN,DIRECT 0.1 <=0.4 mg/dL 07/30/2025 5:37 PM EDT [facility] Blood Venous blood / Unknown Venipuncture / Unknown 07/30/2025 3:14 PM EDT 07/30/2025 3:15 PM EDT us Aleena D Enix OBSTETRICAL ANESTHESIOLOGIST-WEAVE ROOM SUPERVISOR LAB BLOOD ORDERABLES Irish l Result [facility] [address] [place] [address], * (ABNORMAL) Basic Metabolic Panel (07/30/2025 3:14 PM EDT) SODIUM 144 134 - 146 mmol/L 07/30/2025 5:37 PM EDT [facility] POTASSIUM 5.7(H) 3.5 - 5.0 mmol/L 07/30/2025 5:37 PM EDT [facility] CHLORIDE 115(H) 98 - 109 mmol/L 07/30/2025 5:37 PM EDT [facility] CARBON DIOXIDE 20(L) 22 - 32 mmol/L 07/30/2025 5:37 PM EDT [facility] ANION GAP 9 5 - 15 mmol/L 07/30/2025 5:37 PM EDT [facility] BLOOD UREA NITROGEN 41(H) 5 - 27 mg/dL 07/30/2025 5:37 PM EDT [facility] CREATININE 1.46(H) 0.40 - 1.00 mg/dL 07/30/2025 5:37 PM EDT [facility] Comment:METHOD TRACEABLE TO IDMS STANDARD GLUCOSE 134(H) 65 - 99 mg/dL 07/30/2025 5:37 PM EDT [facility] CALCIUM 8.0(L) 8.5 - 10.5 mg/dL 07/30/2025 5:37 PM EDT [facility] EGFR Non-Race Dependent 39(L) >=60 ml/min/1.7 3sq.m 07/30/2025 5:37 PM EDT [facility] Comment: Reported eGFR is based on the CKD-EPI 2020 equation that does not use a race coefficient. Blood Venous blood / Unknown Venipuncture / Unknown 07/30/2025 3:14 PM EDT 07/30/2025 3:15 PM EDT us Aleena D Enix OBSTETRICAL ANESTHESIOLOGIST-WEAVE ROOM SUPERVISOR LAB BLOOD ORDERABLES Irish l Result [facility] [address] [place] [address], [place] [phone] from Last [address] [place] [address] MEDICARE [employer]ATION Care Teams Cane Piler Relationship Specialty Start Date End Date Harry Valencia MD PCP - General Family Medicine 05/29/19
--- OUTSIDE RECORDS SUMMARY | 2025-08-07 08:56 | XMS_ITS | Encounter Summary ---
Author Organization [facility] Address [address] [place] [address] Care Team Providers Care Family Practice Physician Name Role Phone Harry Valencia MD Primary Care Provider [phone] Carlos Renee MD Unavailable [phone] Encounter Details Date Type Department Care Team (Late st Contact Info) Description 03/06/2025 Orders Only [facility] [address] [place] [address] Nubia Martin MD [address] [place] [address] Social History Tobacco Use Types [...] Description 09/10/2025 11:00 AM EDT Office Visit [facility] [address] [place] [phone] Katherine Rayo, BRAIDING MACHINE OPERATOR [address] [place] [phone] 10/16/2025 1:30 PM EST Follow-Up [facility] [address] [place] [phone] Beni Gomez MD [address] [facility] [address] [facility] [place] [phone] documented as of this encounter Procedures Procedure Name Priority Date/Time Associated Diagnosis Comments CARDIAC DEVICE CHECK - REMOTE - LOOP RECORDER (ILR) Routine 03/06/2025 12:00 AM EDT documented in this encounter Results * Cardiac device check - Remote loop recorder (ILR) (03/06/2025 12:00 AM EDT) Anatomical Region Laterality Modality Other 03/06/2025 Nubia Martin MD CV IMPLANTABLE CARDIAC DEVICE PROCEDURES Final Result documented in this encounter Visit Diagnoses Not on filedocumented in this encounter Care Teams Family Practice Physician Relationship Specialty Start Date End Date Harry Valencia MD [address] [facility] [address] [address] PCP - General 06/20/23 Ud Carlos Orlando MD [address] [place] [address] Consulting Physician Hematology and Oncology 07/18/25 documented as of this encounter
--- OUTSIDE RECORDS SUMMARY | 2025-08-07 08:56 | XMS_ITS | Encounter Summary ---
Author Organization [facility] Address [address] [place] [address] Care Team Providers Care Associate Director Of Biostatistics Name Role Phone Harry Valencia MD Primary Care Provider [phone] Harry Valencia MD Primary Care Provider [phone] Encounter Details Date Type Department Care Team (Late st Contact Info) Description 11/19/2024 Orders Only [facility] [address] [place] [address] Micheal Vincent MD [address] [place] [address] Social History Tobacco Use Types Packs/Day Years [...] * Electrocardiogram Report (11/14/2024 11:45 AM EST) us Micheal Vincent MD IN CLINIC/BEDSIDE ORDERABLES Fin al Result documented in this encounter Visit Diagnoses Not on filedocumented in this encounter Care Teams Associate Director Of Biostatistics Relationship Specialty Start Date End Date Harry Valencia MD PCP - General Family Medicine 11/26/24 04/04/25 Harry Valencia MD [address] [place] [phone] PCP - General Family Medicine 04/05/25 documented as of this encounter
--- OUTSIDE RECORDS SUMMARY | 2025-08-07 08:56 | XMS_ITS | Encounter Summary ---
Author Organization [employer] Address [id number] [address] [place] [address] Care Team Providers Care Pig Machine Operator Helper Name Role Phone Harry Valencia MD Primary Care Provider [phone] Encounter Details Date Type Department Care Team (Latest Contact Info) Description 07/30/2025 Travel Social History Tobacco Use Types Packs/Day [...] on filedocumented in this encounter Care Teams Pig Machine Operator Helper Relationship Specialty Start Date End Date Harry Valencia MD PCP - General Family Medicine 05/29/19 documented as of this encounter
--- OUTSIDE RECORDS SUMMARY | 2025-08-07 08:56 | XMS_ITS | Clinical Summary ---
Author Organization [facility] Address [address] [place] [address] Care Team Providers Care Eating Disorder Specialist Name Role Phone Harry Valencia MD Primary Care Provider [phone] Carlos Renee MD Unavailable [phone] Allergies Active Allergy Reactions Criticality Noted Date Comments Sulfa (Sulfonamide Antibiotics) Hives Low 07/2019 Medications Eliquis 5 mg tablet Take 5 mg by mouth two times daily. 05/27/20 23 Active metFORMIN (Glucophage) 500 mg tablet Take 1,000 mg by mouth twice a day. Active venlafaxine XR (Effexor-XR) 75 mg 24 hr capsule Take 75 mg by mouth in the morning. 05/23/20 23 Active simvastatin (Zocor) 20 mg tablet Take 20 mg by mouth at bedtime. 03/27/20 23 Active ondansetron ODT (Zofran-ODT) 4 mg disintegrating tablet Take 4 mg by mouth every 8 (eight) hours if needed for nausea or vomiting. Active furosemide (Lasix) 20 mg tabletIndications: Paroxysmal atrial fibrillation (CMS/HCC) Take 2 tablets (40 mg) by mouth in the morning. 60 tablet 06/14/20 25 026 Active magnesium oxide (Mag-Ox) 400 mg (241.3 mg magnesium) tabletIndications: Paroxysmal atrial fibrillation (CMS/HCC) Take 1 tablet (400 mg) by mouth two times daily. 60 tablet 06/14/20 25 026 Active pantoprazole (ProtoNix) 40 mg EC tabletIndications: Melena Take 1 tablet (40 mg) by mouth before breakfast and before evening meal for 60 doses. Do not crush, chew, or split. 60 tablet 06/15/20 25 026 Active ferrous sulfate 324 mg (65 mg iron) EC tablet Take 1 tablet by mouth Twice daily at 6am and 6pm. 07/14/20 Active glimepiride (Amaryl) 2 mg tablet Take 2 mg by mouth before breakfast. 07/14/20 Active lisinopril 2.5 mg tablet Take 1 tablet by mouth in the morning. 07/14/20 Active lactulose 10 gram/15 mL solutionIndication s:Anemia, unspecified type Take 30 mL (20 g) by mouth three times daily. 2700 mL 11 07/30/20 026 Active ramipril (Altace) 10 mg capsule Take 10 mg by mouth in the morning. 04/02/20 025 Discontin ued(Thera py completed ) diclofenac (Voltaren) 75 mg EC tablet Take 75 mg by mouth if needed. 12/04/19 025 Discontin ued(Med List Cleanup) spironolactone (Aldactone) 50 mg tabletIndications: Cirrhosis of liver with ascites, unspecified hepatic cirrhosis type (CMS/HCC) Take 1 tablet (50 mg) by mouth in the morning. 30 tablet 11 04/10/20 025 Discontin ued(Thera py completed ) sucralfate (Carafate) 1 gram tablet Take 1 g by mouth with breakfast, with lunch, and with evening meal. 04/05/20 025 Discontin ued(Thera py completed ) amiodarone (Pacerone) 200 mg tabletIndications: Paroxysmal atrial fibrillation (CMS/HCC) Take 1 tablet (200 mg) by mouth in the morning for 14 days. 14 tablet 06/15/20 25 025 Discontin ued(Med List Cleanup) Active Problems Problem Noted Date Diagnosed Date [...] Assessment & Plan (06/28/2023 3:16 PM EDT): -[id number] at least 4 for age, gender, hypertension, [...] PM EDT): - controlled, follow-up with Dr. 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 Encounters Date Type Department Care Team Description 08/05/2025 [address] [place] [address] Aleena Craig CNP 08/01/2025 Orders Only [facility] Gastroenterology [address] [place] [address] [place] [address] Provider, MD Zuri 07/31/[address] [address] Payton Foster MA 07/30/2025 2:30 PM EDT Follow-Up [address] [address] Aleena Craig CNP Anemia, unspecified type (Primary Dx); Abnormal results of liver function studies; Abnormal findings on diagnostic imaging of liver and biliary tract 07/18/2025 1:00 PM EDT Office [facility] [address] [place] [address] Carlos Renee MD Iron deficiency anemia due to chronic blood loss (Primary Dx); Gastric AVM; Other fatigue; H/O cancer of uterus 07/18/2025 Telephone [place] [address] [place] [address] Anne Naylor MA 07/15/2025 Telephone [facility] [address] [place] [place] [address] Anne Naylor MA 07/11/2025 11:20 AM EDT Follow-Up [facility] [address] [place] [place] [address] Katherine Rayo CNP Persistent atrial fibrillation (CMS/HCC) (Primary Dx); Anemia, unspecified type; S/P ablation of atrial fibrillation; BERRY (dyspnea on exertion); Mitral valve insufficiency and aortic valve insufficiency; Benign essential hypertension; Chronic heart failure with preserved ejection fraction (CMS/HCC); Other fatigue 07/11/2025 Telephone [facility] [address] [place] [place] [address] Meghan Bowman MA 07/07/2025 Orders Only [facility] [address] [facility] [place] [address] Nubia Martin MD 06/28/2025 Telephone [facility] [address] [facility] [place] [address] Amrita Ramon RN f/u post ablation 06/24/2025 3:30 PM EDT Ancillary Procedure [facility] [address] [facility] [place] [address] Awareness of heartbeats 06/17/2025 Telephone [facility] Gastro[facility]ology [address] [place] [address] [place] [address] Sapphire Gaytan, MIHIR Results 06/13/2025 8:50 AM EDT Anesthesia Event [facility] [place] [facility] [address] [facility] [place] [address] Dayo Thomson MD Atherton, Joshua, MD 06/13/2025 8:00 AM EDT - 06/13/2025 12:00 PM EDT Surgery [facility] [address] [place] [address] Rogers Catalan MD Ablation a-fib paroxysmal [[id number]] 06/13/2025 7:50 AM EDT - 06/15/2025 3:47 PM EDT Hospital Encounter [facility] [address] [place] [address] Rogers Catalan MD Horani, Omar, MD A-fib (CMS/HCC) (Primary Dx); Paroxysmal atrial fibrillation (CMS/HCC); Persistent atrial fibrillation (CMS/HCC); Melena Discharge Disposition: Home or Self Care () 06/13/2025 Telephone [facility] Vascular and Endovascular Surgery [address] [place] [address] Huong Combs MA OTHER 06/13/2025 Travel 06/11/2025 Telephone [facility] Heart [place] [address] [place] [address] Cande Steele MA 06/11/2025 Orders Only [facility] Pre-Anesthesia Clinic [address] [place] [address] Sebas Reyez RN 05/28/2025 9:00 AM EDT Procedure Visit [facility] [address] [place] [address] Jessica Oates CNP AVM (arteriovenous malformation) (Primary Dx); History of colonoscopy with polypectomy; Iron deficiency anemia due to chronic blood loss; AVM (arteriovenous malformation) of colon; Other specified postprocedural states from Last 3 Months Immunizations Immunization Administration Dates Next Due Influenza, Unspecified 10/31/2017,09/24/2016 Influenza, injectable, MDCK, preservative free, quadrivalent 09/01/2022,08/26/2020 Influenza, injectable, quadrivalent, preservativ e free 08/11/2021,08/02/2019 Influenza, seasonal, injectable 09/03/2019 Influenza, trivalent, adjuvanted 12/29/2024 Pneumococcal Conjugate PCV 20 12/29/2024 Pneumococcal Polysaccharide PPV23 10/31/2017 Tdap 07/20/2022,03/12/2016 Family History Medical History Relation Name Comments Heart disease Brother Diabetes Father Breast cancer Maternal Grandmother No Known Problems Mother Stomach cancer Mother's Brother Uterine cancer Sister Relation Name Status Comments Brother Father Maternal Grandmother Mother Mother's Brother Other Sister Alive Social History Tobacco Use Types Packs/Day Years Used Date Smoking Tobacco: Never Smokeless Tobacco: Never Tobacco Cessation:Counseling Given: Yes Alcohol Use Standard Drinks/Week Comments Not Currently 0 (1 standard drink = 0.6 oz pur e alcohol) [facility] Utilities Answer Date Recorded In the past 12 months has th e electric, gas, oil, or water company [...] any time in the past 12 m [facility], were you homeless or living in a [...] not to disclose 2024 11:35 AM EDT Last Filed Vital Signs Vital Sign Reading Time Taken Comments Blood Pressure 132/64 07/30/2025 2:23 PM EDT Pulse 64 07/30/2025 2:23 PM EDT Temperature 36.7 C (98 F) 07/18/2025 1:06 PM EDT Respiratory Rate 20 06/15/2025 3:06 PM EDT Oxygen Saturation 98% 07/30/2025 2:23 PM EDT Inhaled Oxygen Concentration - - Weight 86.1 kg (189 lb 14.4 oz) 07/30/2025 2:23 PM EDT Height 167.6 cm (5' 6 ) 07/30/2025 2:23 PM EDT Body Mass Index 30.65 07/30/2025 2:23 PM EDT Plan of Treatment Upcoming Encounters Date Type Department Care Team (Late st Contact Info) Description 09/10/2025 11:00 AM EDT Office Visit [facility] Heart [facility] [address] [place] [address] Katherine Rayo, FOAM CHARGER [address] [place] [address] 10/16/2025 1:30 PM EST Follow-Up [facility] Gastroenterology [address] [place] [address] Beni Gomez MD [address] [facility] [address] [facility] [place] [place] [address] Health Maintenance Due Date Last Done Comments CT Colonography 1956 Diabetes: Hemoglobin A1C 1955 FIT-DNA 1956 FIT 1955 FOBT 1955 Medicare Annual Wellness (AWV) 1955 Sigmoidoscopy 1956 Diabetes: Retinopathy Screening 1966 Diabetes: Urine Protein Screening 1975 Mammogram 1996 Zoster Vaccines (1 of 2) 2006 COVID-19 Vaccine (3 - season) 2025 09/29/2021, 01/25/2021 Influenza Vaccine (#1) 2025 , 09/01/2022, 08/11/2021, Additional history exists Depression Screening 07/18/2026 07/18/2025 Fall Risk Screening 07/18/2026 07/18/2025 Adult Tetanus 07/20/2032 07/20/2022, 03/12/2016 Colonoscopy 11/07/2034 [...] this topic Medical Devices Implanted Type Area Assistant Vice President Device Identifier Shelf Expiration Date Model / Serial / Lot Monitor,Cardi ac,Lux,Dxii+I cm - [id number] - [id number] Implanted:Qty : 1 on 08/06/2024 by Rogers Catalan MD at [facility] Implantable Loop Recorder Left: Chest [employer] 12/28/2025 [id number] / [id number] / Procedures Procedure Name Priority Date/Time Associated Diagnosis Comments LIVER FIBROSIS CHRONIC VIRAL HEPATITIS Routine 08/01/2025 8:40 AM EDT ECG 12 LEAD UNIT PERFORMED Routine 07/11/2025 11:10 AM EDT Persistent atrial fibrillation (CMS/HCC) CARDIAC DEVICE CHECK CHECK - REMOTE Routine 07/10/2025 8:16 PM EDT Awareness of heartbeats CARDIAC DEVICE CHECK - REMOTE - LOOP RECORDER (ILR) Routine 07/07/2025 12:00 AM EDT CAPSULE ENDOSCOPY Routine 06/17/2025 8:4 7 AM EDT Iron deficiency anemia due to chronic blood loss AVM (arteriovenous malformation) of colon Other specified postprocedural states POCT GLUCOSE METER UNSOLICITED RESULTS Routine 06/15/2025 2:12 PM EDT POCT GLUCOSE METER UNSOLICITED RESULTS Routine 06/15/2025 10:13 AM EDT POCT GLUCOSE METER UNSOLICITED RESULTS Routine 06/15/2025 7:21 AM EDT POCT GLUCOSE METER UNSOLICITED RESULTS Routine 06/14/2025 9:40 PM EDT POCT GLUCOSE METER UNSOLICITED RESULTS Routine 06/14/2025 7:02 PM EDT HAPTOGLOBIN Pending Discharge 06/14/2025 6:16 PM EDT LACTATE DEHYDROGENASE Pending Discharge 06/14/2025 6:16 PM EDT BILIRUBIN, DIRECT Pending Discharge 06/14/2025 6:16 PM EDT BILIRUBIN, TOTAL Pending Discharge 06/14/2025 6:16 PM EDT POCT GLUCOSE METER UNSOLICITED RESULTS Routine 06/14/2025 5:13 PM EDT HEMOGLOBIN AND HEMATOCRIT, BLOOD Pending Discharge 06/14/2025 10:52 AM EDT LIGHT GREEN TOP Routine 06/14/2025 3:27 AM EDT EXTRA TUBES Routine 06/14/2025 3:27 AM EDT CBC Pending Discharge 06/14/2025 3:27 AM EDT TRANSFUSE RED BLOOD CELLS Routine 06/13/2025 11:23 PM EDT HEMOGLOBIN Routine 06/13/2025 8:02 PM EDT ECG 12-LEAD Routine 06/13/2025 12:58 PM EDT CBC STAT 06/13/2025 12:49 PM EDT PREPARE RBC Routine 06/13/2025 12:19 PM EDT PREPARE RBC Routine 06/13/2025 12:19 PM EDT PREPARE RBC Routine 06/13/2025 12:19 PM EDT PREPARE RBC Routine 06/13/2025 12:19 PM EDT PREPARE RBC Routine 06/13/2025 12:19 PM EDT POCT GLUCOSE METER UNSOLICITED RESULTS Routine 06/13/2025 12:07 PM EDT POCT ACT Routine 06/13/2025 11:33 AM EDT ANTIBODY IDENTIFICATION Routine 06/13/2025 11:23 AM EDT ANTI C3 TIEN Routine 06/13/2025 11:23 AM EDT ANTI IGG TIEN Routine 06/13/2025 11:23 AM EDT TYPE AND SCREEN Routine 06/13/2025 11:23 AM EDT ABLATION A-FIB PAROXYSMAL Routine 06/13/2025 11:18 AM EDT Paroxysmal atrial fibrillation (CMS/HCC) POCT ACT Routine 06/13/2025 11:15 AM EDT HEMOGLOBIN Routine 06/13/2025 10:47 AM EDT HAPTOGLOBIN Routine 06/13/2025 10:47 AM EDT HIGH SENSITIVITY TROPONIN I Routine 06/13/2025 10:47 AM EDT BILIRUBIN, DIRECT Routine 06/13/2025 10:47 AM EDT BILIRUBIN, TOTAL Routine 06/13/2025 10:47 AM EDT LACTATE DEHYDROGENASE Routine 06/13/2025 10:47 AM EDT POCT ACT Routine 06/13/2025 10:35 AM EDT POCT ACT Routine 06/13/2025 10:12 AM EDT POCT GLUCOSE METER UNSOLICITED RESULTS Routine 06/13/2025 10:12 AM EDT POCT ACT Routine 06/13/2025 9:52 AM EDT SC AN ELECTIVE ENDOTRACHEAL AIRWAY Routine 06/13/2025 9:06 AM EDT ECG 12-LEAD Routine 06/13/2025 8:48 AM EDT POCT GLUCOSE METER UNSOLICITED RESULTS Routine 06/13/2025 8:21 AM EDT PROTIME-INR Routine 06/13/2025 8:10 AM EDT HEMOGLOBIN Routine 06/13/2025 8:10 AM EDT from Last 3 Months Results * Liver fibrosis chronic viral hepatitis (08/01/2025 8:40 AM EDT) Blood Venous blood specimen / Unknown us Historical Provider LAB BLOOD ORDERABLES Irish l Result * ECG 12 lead unit performed (07/11/2025 11:10 AM EDT) Katherine Rayo CNP ECG ORDERABLES Final Result * CARDIAC DEVICE CHECK - REMOTE - LOOP RECORDER (ILR) (07/10/2025 8:16 PM EDT) Davide Caraballo MD CV IMPLANTABLE CARDIAC DEVICE SC OCEDURES Final Result CPACS * Cardiac device check - Remote loop recorder (ILR) (07/07/2025 12:00 AM EDT) Anatomical Region Laterality Modality Other 07/07/2025 Nubia Martin MD CV IMPLANTABLE CARDIAC DEVICE PROCEDURES Final Result * Capsule Endoscopy (06/17/2025 8:47 AM EDT) Anatomical Region Laterality Modality Endoscopy Jesus Emerson MD ENDOSCOPY PROCEDURE ORDERABLES F inal Result * (ABNORMAL) POCT glucose meter (06/15/2025 2:12 PM EDT) Only the most recent of9 resultswithin the time period is included. Glucose POC 262(H) 70 - 105 mg/dL 06/15/2025 2:24 PM EDT [facility] ([employer] [facility]) Comment:[email or web address] Blood Capillary blood specimen / Unknown 06/15/2025 2:12 PM EDT 06/15/2025 2:24 PM EDT Narrative [facility] ([employer]) - 06/15/2025 2:24 PM EDT Waived Testing in the ED is performed under the ED CLIA certificate #[id number]. Rogers Catalan MD LAB BLOOD ORDERABLES Final Resul t Performing Organization Address City/[facility]/ZIP Co de Phone Number [facility] ([facility]) [address] [place] [address] * Lactate dehydrogenase (06/14/2025 6:16 PM EDT) Only the most recent of2 resultswithin the time period is included. LD 267 140 - 271 U/L 06/14/2025 7:20 PM EDT [facility] ([facility]) Blood Venous blood specimen / Unknown Venipuncture / Unknown 06/14/2025 6:16 PM EDT 06/14/2025 6:52 PM EDT Rogers Catalan MD LAB BLOOD ORDERABLES Final Resul t Performing Organization Address [facility] Co de Phone Number [facility] ([facility]) [address] [place] [address] * Haptoglobin (06/14/2025 6:16 PM EDT) Only the most recent of2 resultswithin the time period is included. Haptoglobin 152.0 32.0 - 197.0 mg/dL 06/17/2025 9:31 AM EDT [facility] ([facility]) Comment:Testing performed us ing a new methodology, turbidimetry. Normal ranges have been updated. Old normal range was 26-164 mg/dL. Blood Venous blood specimen / Unknown Venipuncture / Unknown 06/14/2025 6:16 PM EDT 06/14/2025 6:52 PM EDT Rogers Catalan MD LAB BLOOD ORDERABLES Final Resul t [facility] ([facility]) [address] [place] [address] * Bilirubin, direct (06/14/2025 6:16 PM EDT) Only the most recent of2 resultswithin the time period is included. Bilirubin, Direct 0.1 0 - 0.2 mg/dL 06/14/2025 7:20 PM EDT [facility] ([facility]) Blood Venous blood specimen / Unknown Venipuncture / Unknown 06/14/2025 6:16 PM EDT 06/14/2025 6:52 PM EDT Rogers Catalan MD LAB BLOOD ORDERABLES Final Resul t [facility] ([facility]) [address] [place] [address] * Bilirubin, total (06/14/2025 6:16 PM EDT) Only the most recent of2 resultswithin the time period is included. Total Bilirubin 0.9 0.3 - 1.0 mg/dL 06/14/2025 7:20 PM EDT [facility] ([facility]) Blood Venous blood specimen / Unknown Venipuncture / Unknown 06/14/2025 6:16 PM EDT 06/14/2025 6:52 PM EDT Rogers Catalan MD LAB BLOOD ORDERABLES Final Resul t Performing Organization Address [facility] Co de Phone Number [facility] ([facility]) [address] [place] [address] * (ABNORMAL) Hemoglobin and hematocrit, blood (06/14/2025 10:52 AM EDT) Hemoglobin 7.2(L) 12.0 - 15.0 g/dL 06/14/2025 11:12 AM EDT [facility] ([facility]) Hematocrit 23.5(L) 36.0 - 45.0 % 06/14/2025 11:12 AM EDT [facility] ([facility]) Blood Venous blood specimen / Unknown Venipuncture / Unknown 06/14/2025 10:52 AM EDT 06/14/2025 10:58 AM EDT Donald Roth MD LAB BLOOD ORDERABLES Final Result [facility] ([facility]) [address] [place] [address] * Light Green Top (06/14/2025 3:27 AM EDT) [facility] Extra Tube Hold for add-ons. 06/14/2025 5:01 AM EDT [facility] ([facility]) Comment:Auto resulted. Blood Venous blood specimen / Unknown 06/14/2025 3:27 AM EDT 06/14/2025 3:57 AM EDT us Rogers Catalan MD LAB BLOOD ORDERABLES Final Resul t [facility]) [address] [place] [address] * (ABNORMAL) CBC (06/14/2025 3:27 AM EDT) Only the most recent of2 resultswithin the time period is included. [facility] Auto WBC 7.00 4.00 - 10.60 10*3/uL 06/14/2025 4:06 AM EDT [facility] ([facility]) RBC 3.15(L) 3.80 - 5.00 10*6/uL 06/14/2025 4:06 AM EDT [facility] ([facility]) Hemoglobin 7.3(L) 12.0 - 15.0 g/dL 06/14/2025 4:06 AM EDT [facility] ([facility]) Hematocrit 24.0(L) 36.0 - 45.0 % 06/14/2025 4:06 AM EDT [facility] ([facility]) MCV 76.2(L) 82.0 - 98.0 fL 06/14/2025 4:06 AM EDT [facility] ([facility]) MCH 23.2(L) 27.0 - 33.0 pg 06/14/2025 4:06 AM EDT [facility] ([facility]) MCHC 30.4(L) 32.0 - 35.0 g/dL 06/14/2025 4:06 AM EDT [facility] ([facility]) RDW 16.5(H) 11.5 - 15.0 % 06/14/2025 4:06 AM EDT [facility] ([facility]) Platelets 176 150 - 400 10*3/uL 06/14/2025 4:06 AM EDT [facility]) Blood Venous blood specimen / Unknown Venipuncture / Unknown 06/14/2025 3:27 AM EDT 06/14/2025 3:56 AM EDT Rogers Catalan MD LAB BLOOD ORDERABLES Final Resul t Performing Organization Address City/[facility] Co de Phone Number [facility]) [address] [place] [id number] * Transfuse RBC (06/14/2025 2:15 AM EDT) Rogers Catalan MD BLOOD TRANSFUSION ORDERABLES Fin al Result * (ABNORMAL) Hemoglobin (06/13/2025 8:02 PM EDT) Only the most recent of3 resultswithin the time period is included. Pathologist [facility] Hemoglobin 6.6(L) 12.0 - 15.0 g/dL 06/13/2025 8:38 PM EDT [facility]) Blood Venous blood specimen / Unknown Venipuncture / Unknown 06/13/2025 8:02 PM EDT 06/13/2025 8:27 PM EDT Rogers Catalan MD LAB BLOOD ORDERABLES Final Resul t Performing Organization Address City/[facility]/ZIP Co de Phone Number [facility]) [address] [place] [phone] * ECG 12 lead (06/13/2025 12:58 PM EDT) Only the most recent of2 resultswithin the time period is included. Ventricular Rate 67 BPM GE MUSE Atrial Rate 67 BPM GE MUSE SC Interval 204 ms GE MUSE QRS DURATION 82 ms GE MUSE QT Interval 426 ms GE MUSE QTC CALCULATION(BAZE TT) 450 ms GE MUSE P [place] 70 degrees GE MUSE R-[place] 18 degrees GE MUSE T Wave [place] 70 degrees GE MUSE 06/13/2025 12:3 7 PM EDT 06/13/2025 1:01 PM EDT Impressions GE MUSE - 06/13/2025 1:01 PM EDT Normal sinus rhythm Normal ECG When compared with ECG of 13-JUN-2025 08:33, (unconfirmed) No significant change was found Confirmed by Rhonda BALLESTEROS., L.S. (2) on 06/13/2025 1:01:03 PM Narrative Procedure Note Lorena Ballesteros MD - 06/13/2025 IMPRESSION: Normal sinus rhythm Normal ECG When compared with ECG of 13-JUN-2025 08:33, (unconfirmed) No significant change was found Confirmed by Ofe BALLESTEROS, L.S. (2) on 06/13/2025 1:01:03 PM us Rogers Catalan MD ECG ORDERABLES Final Result Performing Organization Address City/[facility]/ZIP Co de Phone Number GE MUSE * Prepare RBC (06/13/2025 12:19 PM EDT) Only the most recent of5 resultswithin the time period is included. Pathologist [facility] [place] PRODUCT CODE [id number] [facility] Unit Number [id number] [facility] BLOOD [facility] Unit ABO O [facility] Unit Rh POS [facility] Crossmatch Interpretation COMP [facility] Dispense Status RE [facility] Blood Expiration Date [id number] [facility] Product Blood Type 5100 [facility] Unit Volume 300 ML [facility] BLO OD BANK 06/13/2025 12:1 9 PM EDT Dayo Thomson MD BLOOD BANK PRODUCT ORDERABL ES Final Result [facility] * (ABNORMAL) POC Activated Clotting Time (06/13/2025 11:33 AM EDT) Only the most recent of5 resultswithin the time period is included. POCT ACT 177(A) 82 - 152 seconds QC Pass/Fail Passed QC LOT # [id number] QC Expiration Date 63,026 Blood Venous blood specimen / Unknown 06/13/2025 11:33 AM EDT Narrative Elizabeth Yazan, [place] - 06/17/2025 8:17 AM EDT Oper [id number] Rogers Catalan MD POINT OF CARE TEST ENTER/EDIT OR DERABLES Final Result * Anti C3 TIEN (06/13/2025 11:23 AM EDT) Anti C3 TIEN NEG 06/13/2025 1:54 PM EDT [facility] Blood Venous blood specimen / Unknown Venipuncture / Unknown 06/13/2025 11:23 AM EDT 06/13/2025 11:23 AM EDT Dayo Thomson MD LAB BLOOD BANK TEST ORDERAB LES Final Result [facility] * Anti IgG TIEN (06/13/2025 11:23 AM EDT) Anti IgG TIEN NEG 06/13/2025 1:54 PM EDT [facility] Blood Venous blood specimen / Unknown Venipuncture / Unknown 06/13/2025 11:23 AM EDT 06/13/2025 11:23 AM EDT Dayo Thomson MD LAB BLOOD BANK TEST ORDERAB LES Final Result [facility] * Antibody identification (06/13/2025 11:23 AM EDT) Antibody ID K 06/13/2025 2:14 PM EDT [facility] Blood Venous blood specimen / Unknown Venipuncture / Unknown 06/13/2025 11:23 AM EDT 06/13/2025 11:23 AM EDT us Dayo Thomson MD LAB BLOOD BANK TEST ORDERAB LES Final Result [facility] * Type and screen (06/13/2025 11:23 AM EDT) ABO Grouping O 06/13/2025 1:40 PM EDT [facility] Rh Type POS 06/13/2025 1:40 PM EDT [facility] Ab Scrn POS 06/13/2025 1:40 PM EDT [facility] BLOOD BANK Blood Venous blood specimen / Unknown Venipuncture / Unknown 06/13/2025 11:23 AM EDT 06/13/2025 11:23 AM EDT Dayo Thomson MD LAB BLOOD BANK TEST ORDERAB LES Final Result [facility] BLOOD [facility] * ABLATION A-FIB PAROXYSMAL (06/13/2025 11:18 AM EDT) Anatomical Region Laterality Modality Other Addenda Addendum by Rogers Catalan MD on 06/13/2025 5:52 PM EDT Table formatting from the original result was not included. ATRIAL FIBRILLATION ABLATION PROCEDURE NOTE DATE OF PROCEDURE: 06/13/2025 PERFORMING PHYSICIAN: Dr. Rogers Catalan FINISHER PLATE: REJI CONSENT: Patient NAME OF THE PROCEDURE: [...] with Vascade seal. She was transferred to observation bay for observation. LA baseline (mmHg) 17/11 HR [...] PLAN: 1. Anticoagulation after 2 hrs of sheath removal. 2. Protonix 40mg bid x 1 month. 3. Groin precautions. Rogers Catalan MD Cardiac Electrophysiology Rogers Catalan MD CV ELECTROPHYSIOLOGY PROCEDURES Edited Result - Final * (ABNORMAL) High Sensitivity Troponin I (06/13/2025 10:47 AM EDT) High Sensitivity Troponin I 153(HH) <15 ng/L 06/13/2025 11:40 AM EDT [facility] ([place]) Blood Venous blood specimen / Unknown Arterial Line / Unknown 06/13/2025 10:47 AM EDT 06/13/2025 10:47 AM EDT Rogers Catalan MD LAB BLOOD ORDERABLES Final Resul t [facility] ([place]) [address] [place] [address] * SC AN ELECTIVE ENDOTRACHEAL AIRWAY (06/13/2025 9:06 AM EDT) Dayo Lujan MD - 06/13/2025 9:06 AM EDT Dayo Thomson MD 06/13/2025 10:25 AM Airway Date/Time: 06/13/2025 9:06 AM Reason: elective Airway not difficult General Information and Staff Patient location during procedure: OR Anesthesiologist: Dayo Thomson MD Resident/SUPERVISOR ACCOUNTING CLERKS/CAA: Jhonathan Hernandez MD Performed: resident/SUPERVISOR ACCOUNTING CLERKS/CAA Patient Condition Indications for airway management: anesthesia [...] 1 Number of other approaches attempted: 0 Dayo Thomson MD ANESTHESIA ORDERABLES Final Result * (ABNORMAL) Protime-INR (06/13/2025 8:10 AM EDT) Protime 15.2(H) 12.3 - 14.8 Seconds 06/13/2025 8:56 AM EDT [facility] ([place]) INR 1.20(H) 0.90 - 1.10 06/13/2025 8:56 AM EDT [facility] ([place]) Comment: [facility] RECOMMENDED INR FOR WARFARIN THERAPY CONDITION INR PROPHYLAXIS OF VENOUS THROMBOSIS 2-3 (HIGH-RISK SURGERY) TREATMENT OF VENOUS THROMBOSIS 2-3 TREATMENT OF PULMONARY EMBOLISM 2-3 PREVENTION OF SYSTEMIC EMBOLISM: 2-3 ACUTE MYOCARDIAL INFARCTION TISSUE HEART VALVES VALVULAR HEART DISEASE ATRIAL FIBRILLATION RECURRENT SYSTEMIC EMBOLISM MECHANICAL HEART VALVE 2.5-3.5 FROM: ORAL ANTICOAGULANTS. MECHANISM OF ACTION, CLINICAL EFFECTIVENESS, AND OPTIMAL THERAPEUTIC RANGE. CHEST 1995;108:231S-246S. Blood Venous blood specimen / Unknown Venipuncture / Unknown 06/13/2025 8:10 AM EDT 06/13/2025 8:29 AM EDT us Rogers Catalan MD LAB BLOOD ORDERABLES Final Resul t [facility] ([place]) [address] [place] [address] from Last 3 Months Insurance MEDICARE AET[employer] Advance Directives * Full Code (Latest Code Status on File) Date Activated Date Inactivated Comments 06/13/2025 12:34 PM 06/15/2025 5:48 PM Care Teams Eating Disorder Specialist Relationship Specialty Start Date End Date Harry Valencia MD [address] [facility] [address] [address] PCP - General 06/20/23 Carlos Orlando MD [address] [place] [address] Consulting Physician Hematology and Oncology 07/18/25
--- OUTSIDE RECORDS SUMMARY | 2025-08-07 08:56 | XMS_ITS | Clinical Summary ---
Author Organization [facility] Healthcare Address [address] [place] [address] Care Team Providers Care High Man Name Role Phone Harry Valencia MD Primary [...] on file Insurance MEDICARE AET Care Teams High Man Relationship Specialty Start Date End Date Harry Valencia MD [address] [place] [address] PCP - General Family Medicine 04/05/25
== END 2025-08-07 08:48 | disposition home or self-care (01) ==
LOC: US 08:47
PROVIDERS: PCP Family Medicine
DX: D64.9 Anemia, unspecified (principal)
CPT/HCPCS: 76705

== ENCOUNTER 2025-10-04 08:47 | Outpatient (OUT) | payer MEDICARE, SELFPAY ==
--- OUTSIDE RECORDS SUMMARY | 2025-09-25 10:20 | XMS_ITS | Encounter Summary ---
Author Organization [facility] Address [address] [place] [address] Care Team Providers Care Interventional Radiology Rn Name Role Phone Harry Valencia MD Primary Care Provider [phone] Carlos Renee MD Unavailable [phone] Reason for Visit * ReasonCommentsFollow-upPatient is here today for a 3 month follow up A-fib ablation. Patient states the last couple of days when she wakes up she can feel her heart pulsing. Patient denies chest pain, SO/BERRY,Atrial Fibrillation HypertensionValve DisorderMitral valve insufficiency Aortic valve insufficiencyValvular heart diseaseHyperlipidemiaLVHCongestive Heart Failure Portal HypertensionEdemaAt the end of the day.PalpitationsPalpitations/racing heart in am Encounter Details DateTypeDepartmentCare Team (Latest Contact Info)Nhqhksztfba97/05/2025 10:20 AM ESTOffice Visit [facility] [address] [place] [address] Katherine Rayo, ESTR[place] [address] [place] [address] Persistent atrial fibrillation (CMS/HCC) (Primary Dx); S/P ablation of atrial fibrillation; Anemia, unspecified type; Mitral valve insufficiency and aortic valve insufficiency; Benign essential hypertension; Chronic heart failure with preserved ejection fraction (CMS/HCC) Social History Tobacco UseTypesPacks/DayYears UsedDateSmoking Tobacco: NeverSmokeless Tobacco: NeverAlcohol UseStandard Drinks/WeekCommentsNot Currently0 (1 standard drink = 0.6 oz pure alcohol)[facility] UtilitiesAnswerDate RecordedIn the past 12 months has the electric, gas, oil, or water company threatened to shut off services in your home?No06/13/2025Humiliation, Afraid, Rape, and Kick questionnaireAnswerDate RecordedWithin the last year, have you been afraid of your partner or ex-partner?No06/13/2025Emotionally AbusedNot on file06/13/2025Physically Abused Not on file06/13/2025Sexually AbusedNot on file06/13/2025Overall Financial Resource Strain (CARDIA)AnswerDate RecordedHow hard is it for you to pay for the very basics like food, housing, medical care, and heating?Not hard at all 06/13/2025PHQ-2AnswerDate RecordedPatient Health Questionnaire-2 Score0 07/18/2025UT Safety & EnvironmentAnswerDate RecordedFear of Current or Ex-PartnerNot on file01/12/2024Emotionally AbusedNot on file01/12/2024hysically AbusedNot on file01/12/2024Sexually AbusedNot on file01/12/2024hysically or Sexually AbusedNot on file01/12/2024TransportationAnswerDate RecordedIn the past 12 months, has lack of transportation kept you from medical appointments or from getting medications?06/13/2025Lack of Transportation (Non-Medical)Not on file 06/13/2025Housing Stability Vital SignAnswerDate RecordedIn the last 12 months, was there a time when you were not able to pay the mortgage or rent on time?No 06/13/2025Number of Times Moved in the Last YearNot on file06/13/2025t any time in the past 12 months, were you homeless or living in a nursing home (including now)? 06/13/2025Hunger Vital SignAnswerDate RecordedWithin the past 12 months, you worried that your food would run out before you got the money to buymore.Never true06/13/2025Ran Out of Food in the Last YearNot on file06/13/2025 CommentsNoSex and Gender InformationValueDate RecordedSex Assigned at Izscdu9706/17/2025 11:34 AM EDTLegal PrwBdhcne33/29/2022 10:55 PM EDTGender QlbzyigdZvuiek25/28/2025 11:34 AM EDTSexual OrientationChoose not to disclose 06/17/2025 11:35 AM EDTdocumented as of this encounter Last Filed Vital Signs Vital SignReadingTime TakenCommentsBlood Zifpmkpj964/4809/25/2025 10:26 AM EST Vupwk752609/25/2025 10:26 AM ESTTemperature--Respiratory Rate--Oxygen Saturation 100%09/25/2025 10:26 AM ESTInhaled Oxygen Concentration--Ouwkyj69.5 kg (193 lb) 09/25/2025 10:26 AM RDMVcocxz710.6 cm (5' 6 )09/25/2025 10:26 AM ESTBody Mass Index31.15111/25/2024 10:26 AM ESTdocumented in this encounter Functional Status * BPAnswerDate of FblhqdxdafXqgnsn278/4809/25/2025 10:26 AM Meghan Johnson MA * PulseAnswerDate of FtyuwbnlgaFkgogv8476/05/2025 10:26 AM Meghan Johnson MA * Patient PositionAnswerDate of HzvaxqqmkyCrxligUtgqyas63/05/2025 10:26 AM Meghan Pacheco MA * BPAnswerDate of NiqweabjhnUnczpr245/4809/25/2025 10:26 AM Meghan Johnson MA * PulseAnswerDate of NswpokseccZvhkxl0341/05/2025 10:26 AM Meghan Johnson MA * AeF8UpwkukMcwu of IedwdazwcjUfcril75908/05/2025 10:26 AM Meghan Johnson MA * BP LocationAnswerDate of AssessmentAuthorRight arm09/25/2025 10:26 AM Meghan Pacheco MA * Patient PositionAnswerDate of OuqqjdcbwuBvjixvVeljayx96/05/2025 10:26 AM Meghan Pacheco MA documented as of this encounter Progress Notes * Katherine Rayo, TRAFFIC SIGNAL SUPERVISOR MAINTENANCE - 09/25/2025 10:20 AM EST Images from the original note were not included. Cardiovascular Medicine [facility] SUBJECTIVE Chief Complaint Patient presents with Follow-up Patient is here today for a 3 month follow up A-fib ablation. Patient states the last couple of days when she wakes up she can feel her heart pulsing. Patient denies chest pain, SO/BERRY, Atrial Fibrillation Hypertension Valve Disorder Mitral valve insufficiency Aortic valve insufficiency Valvular heart disease Hyperlipidemia LVH Congestive Heart Failure Portal Hypertension Edema At the end of the day. Palpitations Palpitations/racing heart in am Shirley Hannah Brian is a 69 y.o. female here for follow-up after her recent a.fib ablation. Her friendBeth accompanied her. PMH: a.fib s/p ablation 06/13/25, GI bleed with ablations of AVM with argon plasma coagulation 01/2025, HTN, HLD, DM Atrial Fibrillation Symptoms include palpitations. Past medical history includes atrial fibrillation, CHF and hyperlipidemia. Hypertension Associated symptoms include palpitations. Hyperlipidemia Congestive Heart Failure Associated symptoms include palpitations. Edema Associated symptoms include palpitations. Past medical history is significant for CHF. Palpitations 07/11/2025 Since last seen she underwent an [...] CP, palpitations, orthopnea, PND, LE edema, syncope. 09/25/2025 After we last saw her, we referred her to hematology given her ongoing issues with anemia. She alsosaw GI who is having her follow-up with the hepatology clinic for her liver cirrhosis. She states she is overall feeling well. Denies any blood in urine or stool. She has had a few mornings where she wakes up feeling her heart beating. Denies c/o CP, dyspnea, orthopnea, PND, LE edema, dizziness/LH, syncope. Problem List[1] Medical History[2] Family History[3] Social History[4] Allergies[5] OBJECTIVE Visit Vitals BP (!) 122/48 (BP Location: Right arm, Patient Position: Sitting) Pulse 60 Ht 1.676 m (5' 6 ) Wt 87.5 kg (193 lb) SpO2 100% BMI 31.15 kg/m?? OB Status Hysterectomy Smoking Status Never BSA 2.02 m?? Medications: Current Medications[6] Physical Exam Vitals reviewed. [...] Skin: General: Skin is warm and dry. Neurological: General: No focal deficit present. Mental [...] Rate 06/13/2025 63 Atrial Rate 06/13/2025 63 WV Interval 06/13/2025 196 QRS DURATION 06/13/2025 78 QT Interval 06/13/2025 440 QTC CALCULATION(BAZETT) 06/13/2025 450 P Gilliam 06/13/2025 52 R-Gilliam 06/13/2025 18 T Wave Gilliam 06/13/2025 52 Protime 06/13/2025 15.2 (H) INR [...] Rate 06/13/2025 67 Atrial Rate 06/13/2025 67 WV Interval 06/13/2025 204 QRS DURATION 06/13/2025 82 QT Interval 06/13/2025 426 QTC CALCULATION(BAZETT) 06/13/2025 450 P Gilliam 06/13/2025 70 R-Gilliam 06/13/2025 18 T Wave Gilliam 06/13/2025 70 Auto WBC 06/13/2025 4.65 RBC 06/13/2025 2.97 (L) Hemoglobin 06/13/2025 6.7 (L) Hematocrit 06/13/2025 22.6 (L) MCV 06/13/2025 76.1 (L) MCH 06/13/2025 22.6 (L) MCHC 06/13/2025 29.6 (L) RDW 06/13/2025 16.4 (H) Platelets 06/13/2025 167 Glucose POC 06/13/2025 263 (H) Anti IgG ERICKA 06/13/2025 NEG Anti C3 ERICKA 06/13/2025 NEG Antibody ID 06/13/2025 K Hemoglobin 06/13/2025 6.6 (L) PRODUCT CODE 06/13/2025 [id number] Unit Number 06/13/2025 [id number] Unit ABO 06/13/2025 O Unit Rh 06/13/2025 POS Crossmatch Interpretation 06/13/2025 COMP Dispense Status 06/13/2025 TR Blood Expiration Date 06/13/2025338719582656 Product Blood Type 06/13/2025 5100 Unit Volume 06/13/2025 300 PRODUCT CODE 06/13/2025 [id number] Unit Number 06/13/2025 [id number] Unit ABO 06/13/2025 O Unit Rh 06/13/2025 POS Crossmatch Interpretation 06/13/2025 COMP Dispense Status 06/13/2025 RE Blood Expiration Date 06/13/2025675918063620 Product Blood Type 06/13/2025 5100 Unit Volume 06/13/2025 300 PRODUCT CODE 06/13/2025 [id number] Unit Number 06/13/2025 [id number] Unit ABO 06/13/2025 O Unit Rh 06/13/2025 POS Crossmatch Interpretation 06/13/2025 COMP Dispense Status 06/13/2025 RE Blood Expiration Date 06/13/2025644508089655 Product Blood Type 06/13/2025 5100 Unit Volume 06/13/2025 300 PRODUCT CODE 06/13/2025 [id number] Unit Number 06/13/2025 [id number] Unit ABO 06/13/2025 O Unit Rh 06/13/2025 POS Crossmatch Interpretation 06/13/2025 COMP Dispense Status 06/13/2025 RE Blood Expiration Date 06/13/2025930825503776 Product Blood Type 06/13/2025 5100 Unit Volume 06/13/2025 300 PRODUCT CODE 06/13/2025 [id number] Unit Number 06/13/2025 [id number] Unit ABO 06/13/2025 O Unit Rh 06/13/2025 POS Crossmatch Interpretation 06/13/2025 COMP Dispense Status 06/13/2025 RE Blood Expiration Date 06/13/2025718967956051 Product Blood Type 06/13/2025 5100 Unit Volume 06/13/2025 300 Auto WBC 06/14/2025 7.00 RBC 06/14/2025 3.15 (L) Hemoglobin 06/14/2025 7.3 (L) Hematocrit 06/14/2025 24.0 (L) MCV 06/14/2025 76.2 (L) MCH 06/14/2025 23.2 (L) MCHC 06/14/2025 30.4 (L) RDW 06/14/2025 16.5 (H) Platelets 06/14/2025 176 Extra Tube 06/14/2025 Hold for add-ons. Hemoglobin 06/14/2025 7.2 (L) Hematocrit 06/14/2025 23.5 (L) Glucose POC 06/14/2025 435 (H) Total Bilirubin 06/14/2025 0.9 Bilirubin, Direct 06/14/2025 0.1 LD 06/14/2025 267 Haptoglobin 06/14/2025 152.0 Glucose POC 06/14/2025 400 (H) Glucose POC 06/14/2025 283 (H) Glucose POC 06/15/2025 237 (H) Glucose POC 06/15/2025 259 (H) Glucose POC 06/15/2025 262 (H) POCT ACT 06/13/2025 315 (A) QC Pass/Fail 06/13/2025 Passed QC LOT # 06/13/2025 23 QC Expiration Date 06/13/2025 63,026 POCT ACT 06/13/2025 341 (A) QC Pass/Fail 06/13/2025 Passed QC LOT # 06/13/2025 23 QC Expiration Date 06/13/2025 63,026 POCT ACT 06/13/2025 401 (A) QC Pass/Fail 06/13/2025 Passed QC LOT # 06/13/2025 23 QC Expiration Date 06/13/2025 63,026 POCT ACT 06/13/2025 375 (A) QC Pass/Fail 06/13/2025 Passed QC LOT # 06/13/2025 23 QC Expiration Date 06/13/2025 63,026 POCT ACT 06/13/2025 177 (A) QC Pass/Fail 06/13/2025 Passed QC LOT # 06/13/2025 23 QC Expiration Date 06/13/2025 63,026 05/25/2023 sodium 142, K3.7, BUN 27, creatinine 0.75, GFR greater than 60, magnesium 1.5 Testing/Procedures: Encounter Date: 06/13/25 ECG 12 lead Result Value Ventricular Rate 67 Atrial Rate 67 WV Interval 204 QRS DURATION 82 QT Interval 426 QTC CALCULATION(BAZETT) 450 P Gilliam 70 R-Gilliam 18 T Wave Gilliam 70 Impression Normal sinus rhythm Normal ECG When compared with ECG of 13-JUN-2025 08:33, (unconfirmed) No significant change was found Confirmed by Ofe BALLESTEROS, L.S. (2) on 06/13/2025 1:01:03 PM ATRIAL FIBRILLATION ABLATION PROCEDURE NOTE DATE OF PROCEDURE: 06/13/2025 PERFORMING PHYSICIAN: Dr. Rogers Catalan PROCESSOR HELPER: REJI CONSENT: Patient NAME OF THE PROCEDURE: [...] infusion. 8. Fluroscopy. 9. Arterial line placement. POST PROCEDURE DIAGNOSIS 1. Paroxysmal atrial fibrillation s/p PVI (WACA) with PFA. 2. CTI flutter s/p ablation with bidirectional block. 2. EP study revealing no VA conduction. 3. Normal LA voltage 4. Normal LA pressures. PLAN: 1. Anticoagulation after 2 hrs of sheath removal. 2. Protonix 40mg bid x 1 month. 3. Groin precautions. ECHO 11/15/2024 CONCLUSION: 1. Normal left ventricular size and systolic function. LVEF is estimated at 55 to 60%. 2. Mildly dilated right ventricle with normal systolic function. 3. Moderate biatrial dilatation. 4. Mild aortic and tricuspid regurgitation. 5. Elevated right-sided pressures. RVSP is 72 mmHg. Echo 05/30/24 05/25/23 TTE Stress test: ASSESSMENT/PLAN: Diagnoses and all orders for this visit: Persistent atrial fibrillation (CMS/HCC) - ECG 12 lead unit performed S/P ablation of atrial fibrillation Anemia, unspecified type Mitral valve insufficiency and aortic valve insufficiency Benign essential hypertension Chronic heart failure with preserved ejection fraction (CMS/HCC) #A.fib s/p PVI (WACA) ablation with PFA; also had a CTI flutter ablation with bidirectional block -EKG today shows she is NSR with sinus arrhythmia. -She notes the past few days waking up feeling palpitations. Her rhythm is regular just feels like it is beating hard. -Consider addition of a BB. Will reach out to her juvenile counselor to see if they have a BB they may prefer. -[id number] = 4 (age, HF, female, HTN). She has had ongoing issues with anemia requiring blood transfusions along with a GI bleed. She is currently on Eliquis 2.5mg BID. She is very interested in an LAAO device. We discussed the procedure, pre/post procedure imaging, procedure risks/benefits, and post-procedure medications. She states understanding and would like to further discuss with Dr. Muñoz about proceeding. She notes she already discussed with financial retirement plan specialist Dr. Victor who agreed that she should be considered for a device. #HFpEF -Compensated on exam #Anemia #Fatigue - improved -She has seen hematology along with GI. Suspected cause of ongoing anemia is her liver disease. #LVH #Valvular heart disease #Pulmonary HTN -Follow-up ECHO ordered Follow up in about 6 weeks (around 11/06/2025). Katherine Rayo CNP [facility] Cardi[facility] [1] Patient Active Problem List Diagnosis Atrial fibrillation [...] essential hypertension BMI 36.0-36.9,adult Class 3 obesity (CMS/HCC) Change in bowel habits Diabetes mellitus with both eyes affected by mild nonproliferative retinopathy without macular edema, without long-term current use of insulin (CMS/HCC) Diverticulosis History of Clostridium difficile colitis Melena Occult blood in stools Persistent atrial fibrillation (CMS/HCC) A-fib (CMS/HCC) Pruritic condition Gastric AVM Altered mental status Anemia due to chronic blood loss Anxiety Ascites Cervical strain Chest wall pain Clostridial gastroenteritis Congestive heart failure (CMS/HCC) Fluid overload Gastrointestinal hemorrhage Hepatic encephalopathy (CMS/HCC) History of endometrial cancer Hyperlipidemia Hypomagnesemia Iron deficiency anemia Metabolic syndrome Non-alcoholic cirrhosis (CMS/HCC) Cirrhosis (CMS/HCC) Portal hypertension (CMS/HCC) Sleep apnea 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 difficile colitis Cancer (CMS/HCC) uterine cancer 2013 Carcinoma of endometrium (CMS/HCC) 11/09/2024 Depression Diabetes mellitus (CMS/HCC) GI (gastrointestinal bleed) History of transfusion 03/2025 Hyperlipidemia Hypertension Liver disease Cirrhosis Uterine cancer (CMS/HCC) 2012 [3] Family History Problem Relation Name Age of Onset No Known Problems Mother Diabetes Father Uterine cancer Sister Heart disease Brother Breast cancer Maternal Grandmother Stomach cancer Mother's Brother [4] Social History Tobacco Use Smoking status: Never Smokeless tobacco: Never Vaping Use Vaping status: Never Used Substance Use Topics Alcohol use: Not Currently Drug use: Never [5] Allergies Allergen Reactions Sulfa (Sulfonamide Antibiotics) Hives [6] Current Outpatient Medications: Eliquis 5 mg tablet, Take 5 mg by mouth two times daily. (Patient taking differently: Take 2.5 mg by mouth two times daily.), Disp: , Rfl: ferrous sulfate 324 mg (65 mg iron) EC tablet, Take 1 tablet by mouth Twice daily at 6am and 6pm., Disp: , Rfl: furosemide (Lasix) 20 mg tablet, Take 2 tablets (40 mg) by mouth in the morning., Disp: 60 tablet, Rfl: 0 glimepiride (Amaryl) 2 mg tablet, Take 2 mg by mouth before breakfast., Disp: , Rfl: lactulose 10 gram/15 mL solution, Take 30 mL (20 g) by mouth three times daily., Disp: 2700 mL, Rfl: 11 lisinopril 2.5 mg tablet, Take 1 tablet by mouth in the morning., Disp: , Rfl: magnesium oxide (Mag-Ox) 400 mg (241.3 mg magnesium) tablet, Take 1 tablet (400 mg) by mouth two times daily., Disp: 60 tablet, Rfl: 0 metFORMIN (Glucophage) 500 mg tablet, Take 1,000 mg by mouth twice a day., Disp: , Rfl: pantoprazole (ProtoNix) 40 mg EC tablet, Take 1 tablet (40 mg) by mouth before breakfast and beforeevening meal for 60 doses. Do not crush, chew, or split., Disp: 60 tablet, Rfl: 0 simvastatin (Zocor) 20 mg tablet, Take 20 mg by mouth at bedtime., Disp: , Rfl: spironolactone (Aldactone) 50 mg tablet, Take 50 mg by mouth in the morning., Disp: , Rfl: sucralfate (Carafate) 1 gram tablet, Take 1 g by mouth before breakfast, before lunch, before evening meal, and at bedtime., Disp: , Rfl: venlafaxine XR (Effexor-XR) 75 mg 24 hr capsule, Take 75 mg by mouth in the morning., Disp: , Rfl: ondansetron ODT (Zofran-ODT) 4 mg disintegrating tablet, Take 4 mg by mouth every 8 (eight) hours if needed for nausea or vomiting. (Patient not taking: Reported on 09/25/2025), Disp: , Rfl: documented in this encounter Plan of Treatment DateTypeDepartmentCare Team (Latest Contact Info)Toxnkeaoosf39/26/2025 1:30 PM ESTFollow-Up [facility] [address] [place] [phone] Beni Gomez MD [address] [facility] [address] [facility] [place] [address] 11/01/2025 10:15 AM ESTOffice Visit [facility] at [facility] [address] [place] [address] Alex Muñoz MD [address] [facility] [address] [place] [phone] documented as of this encounter Procedures Procedure NamePriorityDate/TimeAssociated DiagnosisCommentsECG 12 LEAD UNIT BRNBPBWETHrdeqyg37/05/2025 10:42 AM EST Persistent atrial fibrillation (CMS/HCC) documented in this encounter Results * ECG 12 lead unit performed (09/25/2025 10:42 AM EST)Specimen (Source) Anatomical Location / LateralityCollection Method / VolumeCollection Time Received Time Narrative Authorizing ProviderResult TypeResult StatusMelmikey Girma [facility] ORDERABLES Final Result documented in this encounter Visit Diagnoses Diagnosis Persistent atrial fibrillation (CMS/HCC)- Primary Atrial fibrillation S/P ablation of atrial fibrillation Other postprocedural status Anemia, unspecified type Mitral valve insufficiency and aortic valve insufficiency Benign essential hypertension Essential hypertension, benign Chronic heart failure with preserved ejection fraction (CMS/HCC) documented in this encounter Care Teams Team MemberRelationshipSpecialtyStart DateEnd Date Harry Valencia MD [address] [facility] [place] [address] PCP - General06/20/23 Carlos Orlando MD [address] [place] [address] Consulting PhysicianHematology and Oncology07/18/25documented as of this encounter
--- OUTSIDE RECORDS SUMMARY | 2025-10-03 08:05 | XMS_ITS | Continuity of Care Document ---
Author Organization [facility] Address [address] [place] [address] Phone Care Team Providers Care Emergency Veterinary Technician Name Role Phone Joan Hoang MD Attending Provider Harry Valencia MD Primary Care Provider Harry Valencia MD Referring Provider Soila Victor MD Attending Provider Eric Sosa MD Attending Provider Care Teams Patient Care Team Team Status: Active Member Role/Relationship Status Dates Harry Valencia MD Primary Care Provider Active Visit Care Team Team Status: Inactive Member Role/Relationship Status Dates Joan Hoang MD Attending Provider Active Sta rt: July 13, 2025 End: July 13, 2025 Visit Care Team Team Status: Inactive Member Role/Relationship Status Dates Harry Valencia MD Primary Care Provider Active Start: August 21, 2025 End: August 21, 2025Gladys Holm ProviderActiveStart: August 21, 2025 End: August 21my Mary Victor ProviderActiveStart: August 21, 2025 End: August 21, 2025 Visit Care Team Team Status: Inactive Member Role/Relationship Status Dates Eric Sosa MD Attending Provider Active Start: September 18, 2025 End: September 18, 2025Davide Holm Care ProviderActiveStart: September 18, 2025 End: September 18, 2025 Visit Care Team Team Status: Inactive Member Role/Relationship Status Dates Harry Valencia MD Primary Care Provider Active Start: September 18, 2025 End: September 18, 2025Imad Mary Sosa ProviderActiveStart: September 18, 2025 End: September 18, 2025 Patient Care Team Team Status: Inactive Member Role/Relationship Status Dates Harry Valencia MD Primary Care Provider Active Start: October 03, 2025 End: October 03, 2025Imad Mary Sosa ProviderActiveStart: October 03, 2025 End: October 03, 2025 Chief Complaint and Reason for Visit Chief Complaint Admit Date Unknown July 13, 2025 12 :21am NEW- Iron deficiency /Anemia Dr Victor ON LY August 21, 2025 2:34pm Cirrhosis September 18, 2025 1 0:55am F41.9,K74.60 September 18, 2025 1 1:40am Cirrhosis October 03, 2025 12:25pm Reason for Visit Admit Date A-fib August 21, 2025 2: 34pm AVM (arteriovenous malformation) August 21, 2025 2:34pm Cirrhosis of liver not due to alcohol Oc tob2024 2:34pm Diabetes August 21, 2025 2: 34pm History of endometrial cancer August 2:34pm Iron deficiency anemia August 21, 2025 2:34pm Cirrhosis September 18, 2025 1 0:55am Hepatic encephalopathy September 18 10:55am Metabolic syndrome September 18, 2025 1 0:55am Allergies, Adverse Reactions, Alerts Allergen Type Severity Reaction Last Updated Verified Status sulfacetamide Allergy Unknown hives August 10:01am Yes Active Sulfa (Sulfonamide Antibiotics) Allergy Unknown Hives September 18 10:01am Yes Active Social History Smoking Status Status Start Date End Date Date of Observa tion Never smoked tobacco (finding) August 21, 2025 2:44pm Observation Status Observation Response Date of Response Legal Sex Female (finding) Sex Assigned At BirthFemaleDecember 1954 Family History Relationship Condition Age at Onset Recorded Date/T keyanna father Diabetes mellitus Unknown DeceasedUnknown Problems Active Problems Problem Diagnosis/Recorded Date Onset Date Stat us Ascites September 18, 2025 10:07am Unknown A ctive Diabetes February 12, 2025 11:16am Unknown Act garrett Anxiety February 12, 2025 11:16am Unknown Act garrett AVM (arteriovenous malformation) August 21, 2025 1:4 0pm Unknown Active A-fib February 12, 2025 11:30am Unknown Act garrett Cirrhosis September 18, 2025 10:07am Unknown A ctive Metabolic syndrome September 18, 2025 10:28am Unknown Active Iron deficiency anemia August 20, 2025 11:29am Un known Active Cirrhosis of liver not due to alcohol August 22 1:43pm Unknown Active History of endometrial cancer August 21, 2025 1:40pm Unknown Active HTN (hypertension) February 12, 2025 11:16am Unknown Active Uterine cancer February 12, 2025 11:16am Unknown A ctive Hepatic encephalopathy September 18, 2025 10:04am Unkn own Active Portal hypertension September 18, 2025 10:06am Unknown Active Medications Medication Status Dose Units Route Directions Qty Days Refills S tart Date Stop Date End Date Reason(s) Instructions Adherence Lisinopril 2.5 mg tablet Active 2.5 MG PO Daily September 17, 2025 11:00pmUnknownLactulose 10 gram/15 mL solutionActivePOThree times dailyOct2024 11:00pmUnknownFurosemide 40 mg ynynjuAreuvo91AMNY DailySept2024 11:00pmUnknownGlimepiride 2 mg dudtuqGzipev0ADKHEespc August 20, 2025 11:00pmUnknownSpironolactone 50 mg sqhikyCicdrw50QRPWXpero August 20, 2025 11:00pmUnknownFerrous Sulfate 324 mg (65 mg iron) tablet,delayed release (DR/EC)Nqxozr246MMHSCitknCpqptgwqs 30th, 2025 11:00pm UnknownSucralfate 1 gram kserkxNiplpl1YBKL4f/Day before meals & bedtimeS2024 11:00pmUnknownAmiodarone 200 mg bglmimIyngnfcwhkme084JWZSVagqeCimnp 2024 11:00pmOctober 2024 1:41pmPantoprazole 40 mg tablet,delayed release (DR/EC)ActiveMGPOMarch 2024 11:00pmUnknownMagnesium Oxide 400 mg (241.3 mg magnesium) kfhyxgMjvzof014CGZLJvnijLoyvn 2024 11:00pmUnknown Furosemide 20 mg rrrgenZismldfywiew36UPWRTvppdStkzw 2024 11:00pmOct2024 1:39pmDigoxin 250 mcg (0.25 mg) tabletDiscontinued0.25MGPODailyBellevue Hospital 2024 11:00pmOct2024 1:41pmTizanidine 4 mg excbvfJitxgpmvctza4NO PODaily at bedtimeBellevue Hospital 2024 11:00pmOct2024 1:41pmBumetanide 1 mg eziniyZrozakimojhl4JEZAHetqnUnpyv 2024 11:00pmOct2024 1:41pm Apixaban (Eliquis) 5 mg sabpemNepnklapraca4FBBCKjzwm dailyBellevue Hospital 2024 11:00pmOct2024 2:00pmMetformin 500 mg uxxgupVrevsv037XDKZCydgw daily February 11, 2025 11:00pmUnknownOndansetron 4 mg tablet,disintegrating Srgkpbtabzhw4WGKEXINNH 8-12 HOURSBellevue Hospital 2024 11:00pmOct2024 1:41pmRamipril 10 mg upyaslhAtbrqpfcowta22IBVSVnhwlNgxgo 2024 11:00pm August 21, 2025 1:41pmSimvastatin 20 mg nljpuoMlyktz04LLROWgtpnMsedx 2024 11:00pmUnknownVenlafaxine 75 mg akdxkkJpafvx92EFMPRhyynDlysk 2024 11:00pmUnknownApixaban (Eliquis) 5 mg tabletActive2.5MGPOTwice dailyMclaren [facility] 2024 2:00pmUnknown Procedures Procedure Date Performed Status Urine Culture July 13, 2025 completed DH Fibroscan (Not Applicable) October 03 12:45pm completed Relevant Diagnostic Tests and/or Laboratory Data Laboratory Results Test Collection Date/Time Result Date/Time Result Interpretation Reference Range Result Comment Performing Site Corrected White Blood Count September 18, 2025 10:55am September 18, 2025 11:31am 4.2 10*3/uL 3.8-11.6F[facility] [id number] [address] [facility] [address]Rqndsklbklk WBC CountOctober 2024 10:55amOctober 2024 11:31am4.2 10*3/uL3.8-11.6FHenry [facility] [id number] [address] [facility] 50[address]Qmu Blood CountOctober 2024 10:55amOctober 2024 11:31am2.65 10*6/uLBelow low normal3.60-5.00[facility] [id number] [address] [facility] [address]DjpkdhjogmQzphgnw 2024 10:55amOctober 2024 11:31am 8.8 g/dLBelow low cixwqc73.8-15.4FHenry [facility] Hospital [facility] [id number] [address] [place] [address]156VqzvilchzkUdzuopd 2024 10:55amOctober 2024 11:31am 26.7 %Below low ikdyml33.0-46.4FHenry [facility] [id number] [address] [facility] [address]Owjq Corpuscular VolumeOctober 2024 10:55amOct2024 11:71mc568.9 fLAbove high vfjnyu79-042YvvwgxgcrMain Campus Medical Center [facility] [id number] [address] [place] [address] 70437Yelq Corpuscular HemoglobinOctober 2024 10:55amOctober 2024 11:31am33.4 pg24.7-34.3FHenry [facility] [id number] [address] [place] [address] 410[address]Eaoj Corpuscular Hemoglobin ConcentOctober 2024 10:55am October 2024 11:31am33.1 g/dL32.0-35.0[facility] [id number] [address] [facility] 00014Hxd Cell Distribution WidthOctober 2024 10:55amOctober 2024 11:31am15.1 %11.9-15.3FHenry [facility] [id number] [address] [facility] [address]Ykikptuk CountOctober 2024 10:55amOctober 2024 11:12jg247 10*3/lR344-404PrsluyrhqMain [facility] [id number] [address] [facility] 74097Wipt Platelet VolumeOctober 2024 10:55amOctober 2024 11:31am7.6 fL6.3-10.7FHenry [facility] [id number] [address] [place] 9921770Neutrophils (%) (Auto)September 18, 2025 10:55amOctober 2024 11:31am54.1 %.[facility] [id number] [address] [facility] 63[address]Vsmpnzivevs (%) (Auto)September 18, 2025 10:55amOctober 2024 11:31am28.4 %.[facility] [id number] [address] [facility] [address]Wmshknymt (%) (Auto)September 18, 2025 10:55amOctober 2024 11:31am7.0 %.[facility] [id number] [address] [facility] 59539Qpnlidaqexj (%) (Auto)September 18, 2025 10:55amOctober 2024 11:31am9.8 %.[facility] [id number] [address] [facility] 268[address]Gjofuzxls (%) (Auto)September 18, 2025 10:55amOctober 2024 11:31am0.7 %.[facility] [id number] [address] [facility] 02572Ynlahxzui RBC Relative Count (auto)September 18, 2025 10:55am September 18, 2025 11:31am0.2 /100{WBC}0-0.5FHenry [facility] [id number] [address] 9921770Neutrophils # (Auto)September 18, 2025 10:55amOctober 2024 11:31am2.3 10*3/uL1.8-7.7FHenry [facility] [id number] [address] [facility] 00409Qhnvsclyogr # (Auto)September 18, 2025 10:55amOctober 2024 11:31am1.2 10*3/uL1.00-4.8[facility] [id number] [address] [facility] 45196Hjvxiybiw # (Auto)September 18, 2025 10:55amOctober 2024 11:31am0.3 10*3/uL0.0-0.8[facility] [id number] [address] [facility] 48338Jiqtjujiirv # (Auto)September 18, 2025 10:55amOctober 2024 11:31am0.4 10*3/uL0.0-0.45[facility] [id number] [address] [facility] [address]Wormkcygp # (Auto)September 18, 2025 10:55amOctober 2024 11:31am0.0 10*3/uL0.0-0.2FHenry [facility] [id number] [address] [facility] 18476Xtvkilmexrx TimeOctober 2024 10:55amOctober 2024 11:58am13.3 sAbove high normal9.0-12.9A hematocrit value greater than 55% may lead to inaccurate results in coagulation testing. Patientshaving hematocrit values >55% require a special collection tube for coagulation studies. Please c ontact the laboratory at [phone] for redraw instructions.[facility] [id number] [address] [facility] [address]47[address]Vgcnfzvpi Time International RatioOctober 2024 10:55am September 18, 2025 11:58am1.2INR Therapeutic Range A) Pre- and Peroperative OAT started two weeks before surgery. NOT HIP SURGERY: 1.5 - 2.5 HIP SURGERY: 2 - 3B) Primary and secondary prevention of venous THROMBOSIS: 2 - 3C) Active venous thrombosis, pulmonary embolismand prevention of recurrent venous thrombosis: 2 - 3D) Prevention of arterial thromboembolismincluding patients with mechanical heart valves: 3 - 4.5[facility] [id number] [address] [facility] 00170Jljjvyi LevelOctober 2024 10:55amOctober 2024 11:49am86 mg/aK28-899QWM recommended reference rangeRandom Glucose Reference Range is dependent on time and content of last meal. Glucose of more than 200 mg/dL in a nonstressed, ambulatory subject supports the diagnosisof Diabetes Mellitus.[facility] [id number] [address] [facility] 77059Vnfek Urea NitrogenOctober 2024 10:55amOctober 2024 11:49am31 mg/dLAbove high normal7-25[facility] [id number] [address] [facility] 63158YjhjlbrxchDyprfda 2024 10:55amOctober 2024 11:49am 1.12 mg/dL0.60-1.20[facility] [id number] [address] [facility] 11918Pgfzljkoh GFR (CKD-EPI)September 18, 2025 10:55amOctober 2024 11:49am53.563 mL/MinMain Campus Medical Center [facility] [id number] [address] [facility] 80167Xotuoh LevelOctober 2024 10:55amOctober 2024 11:13ak598 mmol/I369-206CwcnilrhzMain Campus [facility] [id number] [address] [facility] 57531Mgcdnfdss LevelOctober 2024 10:55amOctober 2024 11:49am4.2 mmol/L3.5-5.1FHenry [facility] [id number] [address] [facility] 24803Skoqgcfs LevelOctober 2024 10:55amOctober 2024 11:78jn994 mmol/I11-376BufqpjyyeMain Campus Medical Center [facility] [id number] [address] [place] [address] 89349Faxuqt Dioxide LevelOctober 2024 10:55amOctober 2024 11:49am29.7 mmol/L21.0-31.0[facility] [id number] [address] [facility] 66657Vnxwi GapOctober 2024 10:55amOctober 2024 11:49am 12.5 mEq/L6.0-15.0[facility] [id number] [address] [facility] 70047Pngthwx LevelOctober 2024 10:55amOctober 2024 11:49am9.1 mg/dL8.6-10.3F[facility] [id number] [address] [facility] 44567Zxbaq ProteinOctober 2024 10:55amOctober 2024 11:49am6.6 g/dL6.4-8.9[facility] [id number] [address] [facility] 31224AabhpuaBfbwvhr 2024 10:55amOctober 2024 11:49am3.9 g/dL3.5-5.7FHenry [facility] [id number] [address] [facility] 93971RxcrqvscRlejknx 2024 10:55amOctober 2024 11:49am2.7 g/dLMain Campus Medical Center [facility] [id number] [address] [facility] 63156Tvunvri/Globulin RatioOctober 2024 10:55amOctober 2024 11:49am1.4FHenry [facility] [id number] [address] [facility] 99880Zpgcc BilirubinOctober 2024 10:55amOctober 2024 11:49am0.7 mg/dL0.3-1.0[facility] [id number] [address] [facility] 26712Pcvjqt BilirubinOctober 2024 10:55amOctober 2024 11:49am0.10 mg/dL0.03-0.18F[facility] [id number] [address] [place] [address] 24371Bwuefjii BilirubinOctober 2024 10:55amOctober 2024 11:49am0.6 mg/dLMain Campus Medical Center [facility] [id number] [address] [facility] 55324Nrzlajffd Amino Transf (AST/SGOT)September 18, 2025 10:55am September 18, 2025 11:49am27 U/F86-98RkkmldmriMain Campus [facility] [id number] [address] [facility] 40394Pgvcfgd Aminotransferase (ALT/SGPT)September 18, 2025 10:55am September 18, 2025 11:49am22 U/L7-52[facility] [id number] [address] [facility] 14534Atfnqbnn PhosphataseOctober 2024 10:55amOctober 2024 11:47bw676 U/LAbove high mgkamf97-091GulrwrggfMain Campus Medical Center [facility] [id number] [address] [facility] 512[address]LuoelbniCymekuk 2024 10:55amOctober 2024 12:08pm 232.2 ng/mL11.0-306.8[facility] [id number] [address] [facility] 85671Peyxaxos Creatinine Clearance (ChemOctober 2024 10:55am September 18, 2025 11:49amN/AFHenry County Hospital [facility] [id number] [address] [facility] 13747Cqxtllnep A IgM AntibodyOct2024 10:55amOctober 2024 2:36amNegativeNegativeA negative anti-HAV IgM result suggests no recent orcurrent HAV infection.[facility] B Core IgM Antibody September 18, 2025 10:55amOctober 2024 2:36amNegativeNegativePerformed at: - [facility] [address] [id number] Director: Dennis Garcias PhD, Phone: [phone] M2 Antibody September 18, 2025 10:55amOctober 2024 1:09pm<20.0 Units0.0-20.0Negative 0.0 - 20.0 Equivocal 20.1 - 24.9 Positive >24.9Mitochondrial (M2) Antibodies are found in 90-96% ofpatients with primary biliary cirrhosis.Performed at: [facility] [id number] Director: Dennis Garcias PhD, Phone: [phone] Marker Alpha FetoproteinOctober 2024 10:55amOctober 2024 2:36am2.0 ng/mL0.0-9.2 [facility] Electrochemiluminescence Immunoassay(ECLIA)Values obtained with different assay methods or kits cannotbe used interchangeably. Results cannot be interpreted asabsolute evidence of the presence or absence of malignantdisease.This test is not interpretable in females.Performed at: [facility] [id number] Director: Dennis Garcias PhD, Phone: [phone] September 18, 2025 10:55amNovember 2024 4:33yz133 mg/hD710-773MkfUkks GOctober 2024 10:55amOctober 2024 7:09am 866 mg/hY002-4230Xvqdkooia at: [facility] [id number] Director: Dennis Garcias PhD, Phone: [phone] Muscle AntibodyOctober 2024 10:55amOctober 2024 1:09pm6 Units0-19Negative 0 - 19 Weak positive 20 - 30 Moderate to strong positive >30 Actin Antibodies are found in 52-85% of patients with autoimmune hepatitis or chronic active hepatitis and in 22% of patientswith primary biliary cirrhosis.[facility] A Antibody TotalOctober 2024 10:55amOctober 2024 2:36amPositiveAbnormal (applies to non-numeric results)NegativeComment: The HAV total antibody assay detects both IgG andIgM but does not differentiate between them. A negativeresult suggests susceptibility to infection. A positiveresult could be due to vaccination, previously resolvedinfection or active infection. Testing for HAV IgM shouldbe performed if active HAV infection is suspected. [facility] profiles that will automatically reflex positive HAVtotal antibody results to IgM (e.g., panel #[id number] HAVAntibody w/ Rfx).[facility] B Surface Antibody September 18, 2025 10:55amOctober 2024 2:36amNon reactive.Non Reactive: Not immune to HBV infection. Anti-HBs undetectable or less than 10 mIU/mL. Reactive: Evidence of HBV immunity. Anti-HBs levels greater than 10 mIU/mL. [facility] B Core Total AntibodyOctober 2024 10:55am September 19, 2025 2:36amNegativeNegativeLabCorp September 18, 2025 10:55amOctober 2024 7:09am25.9 mg/dL19.0-39.0Performed at: [address] [id number] Director: Dennis Garcias PhD, Phone: [phone] PhenotypeOctober 2024 10:55amNovember 2024 4:08pmMm. MM Phenotype is considered to be normal , producingnormal serum levels of tbjei-6-rwwuubvb inhibitor andnot associated with clinical disease. Associated J8Llvarl serum levels in other phenotypes and theirincidence in the general population are shown in thetable below.Phenotype Population % function A-1-AT Conc.* Incidence % compared to MM (Typical Range) MM 86.5% 100% (96 - 189) MS 8.0% 86% (83 - 161) MZ 3.9% 61% (60 - 111) FM 0.4% 100% (93 - 191) SZ 0.3% 41% (42 - 75) SS 0.1% 64% (62 - 119)ZZ 0.05% 19% (16 - 38) FS 0.05% 70% (70 - 128) FZ Unknown 46% (44 - 88) FF Unknown Unknown*A-1-AT concentration in the homozygous MM phenotype is taken as the reference normal. Percent deficiency ineach phenotype is reported relative to this reference. Ranges used to confirm phenotype.Performed at: [facility] [id number] Director: Dennis Garcias PhD, Phone: [phone] at: [address] [id number] Director: Abiel Jordan MD, Phone: [phone] /Kidney Microsomal TiterOctober 2024 10:55amSeptember 19, 2025 2:08pm<1.0 Units0.0-20.0Negative 0.0 - 20.0 Equivocal 20.1 - 24.9 Positive >24.9LKM type 1 antibodies are detected in patients withautoimmune hepatitis type 2 and in up to 8% ofpatients with chronic HCV infection.Performed at: [facility] [id number] Director: Dennis Garcias PhD,Phone: [phone] B Surface AntigenOct2024 10:55amSeptember 19, 2025 2:36amNegativeNegativeLabCo C Antibody (EIA) September 18, 2025 10:55amOct2024 2:36amNon reactiveNon Reactive [facility] Antibody ScreenOct2024 10:55am September 19, 2025 11:08amPositiveAbnormal (applies to non-numeric results). Negative <1:80 Borderline 1:80 Positive >1:80[facility] Ab Homogeneous PatternOct2024 10:55amOct2024 11:08am1:640 Above high normal.ICAP nomenclature: AC-1[facility] Antibody Comment 2Oct2024 10:55amSeptember 19, 2025 11:08amComment. Pattern Potential Disease Association Homogeneous Systemic Lupus Erythematosus, Drug Induced Systemic Lupus Erythematosus, Chronic Autoimmune hepatitis, Juvenile Idiopathic Arthritis Speckled Sjogren Syndrome, Systemic Lupus Erythematosus, Subacute Cutaneous Lupus, Lupus, Congenital Heart Block, Mixed Connective Tissue Disease, Scleroderma-diffuse, Scleroderma-AutoimmuneMyositis Overlap Syndrome, Systemic Lupus Vhbgvzuxwcxhg-Klqrhjxkwrn-Kwhcdsrran Myositis Overlap Syndrome, Systemic Autoimmune Rheumatic Disease, Undifferentiated Connective Tissue Disease Nucleolar Systemic Sclerosis, Scleroderma-AutoimmuneMyositis Overlap Syndrome, Sjogren Syndrome, Raynaud phenomenon, Pulmonary Arterial Hypertension, Systemic Autoimmune Rheumatic Disease, Cancer Centromere Scleroderma-CREST, Limited Cutaneous SSc, Raynaud's Phenomenon, Primary Biliary Cholang itis Nuclear Dot Primary Biliary Cholangitis Nuclear Primary Biliary Cholangitis, AutoimmuneMembrane Hepatitis/Liver disease, Systemic Autoimmune Rheumatic Disease, Autoimmune Cytopenias, Linear Scleroderma, Antiphospholipid Syndrome Performed at: [facility] [id number] Director: Dennis Garcias PhD, Phone: [phone] Transglutaminase IgA AbOctober 2024 10:55amOctober 2024 11:08am<2 U/mL0-3Negative 0 - 3 Weak Positive 4 - 10 Positive >10 Tissue Transglutaminase (tTG) has been identified as the endomysial antigen. Studies have demonstr- ated that endomysial IgA antibodies have over 99% specificity for gluten sensitive enteropathy.[facility] Transglutaminase IgG AbOctober 2024 10:55amOctober 2024 11:08am<2 U/mL0-5Negative 0 - 5 Weak Positive 6 - 9 Positive >9[facility] Genetic ScreenOctober 2024 10:55amNovember 2024 4:08pmComment.Result:c.845G>A (p.Tmv040Cdv) - Not Detectedc.187C>G (p.Lwm46Bsu) - Not Detectedc.193A>T (p.Gra01Eww) - Not DetectedNot associated with increased risk to develop clinicalsymptoms of Hereditary Hemochromatosis. In symptomaticindividuals, other causes of iron overload should beevaluated. SeeAdditional Information and Comments.Additional Clinical Information:Hereditary hemochromatosis (HFErelated) is an autosomalrecessive iron storage disorder. Patients may have agenetic diagnosis of hereditary hemochromatosis and nevershow clinical symptoms. Clinical symptoms typically appearbetween 40 to 60 years in males and after menopause infemales. Signs and symptoms may include organ damage,primarily in the liver, risk for hepatocellularcarcinoma, diabetes, and heart disease due to ironaccumulation. Life expectancy may be decreased inindividuals who develop cirrhosis. Treatment forclinically symptomatic individuals may includetherapeutic phlebotomy. Liver transplant may be used totreat end stage liver failure. For preventive care,monitoring for iron overload is recommended for patientswho are homozygous for c.845G>A (p.Hbn418Vwx) and have yetto experience clinical symptoms.Comment s:The most common HFE variants associated with hereditaryhemochromatosis are c.845G>A (p.Uhh681Dgg), c.187C>G(p.Fxx85Ivw), c.193A>T (p.Htq97Jrm). While patientshomozygous for c.845G>A (p.Wtd552Avh) are the most likelyto present clinical symptoms, less than 10% developclinically significant iron overload with tissue and organdamage.Genetic counseling is recommended to discuss the potentialclinical implications of positive results, as well asrecommendations for testing family members.Genetic Coordinators are available for health careproviders to discuss results at [phone]).Test Details:Three variants analyzed:c.845G>A (p.Ldo361Tsq), commonly referred to as C282Yc.187C>G (p.Hxr48Ook), commonly referred to as H63Dc.193A>T (p.Qlu00Zhe), commonly referred to ojH91JXymtrqi/Limitations:DNA Analysis of the HFE gene (NM_000410.4) was performedby PCR amplification followed by restriction enzymedigestion analyses. Results must be combined with clinicalinformation for the most accurate interpretation. Molecular-based testing is highly accurate, but as in any laboratorytest, diagnostic errors may occur. False positive or falsenegative results may occur for reasons that include geneticvariants, blood transfusions, bone marrow transplantation,somatic or tissue-specific mosaicism, mislabeled samples,or erroneous representation of family relationships.This test was developed and its performancecharacteristics determined by [facility]. It has not beencleared or approved by the Food and Drug Administration.References:Javier BR, Vladimir PC, Phil KV, Bryon LW, Kathleen ;[place] [employer].Diagnosis and management of hemochromatosis: 2011 practiceguideline by the [place] [employer] for the Study ofLiver Diseases. Hepatology. 2010;54(1):328-43. doi:10.1002/hep.07352. PMID: 26385972; PMCID: [id number].Ashley G, Ivis P, Sahara UMANZOR, Peewee H, Subhash O,Eder S, Alexis I, Usman M, Catarina Storey. [facility] best practiceguidelines for the molecular genetic diagnosis ofhereditary hemochromatosis (HH). Eur J Hum Shaista. 2016Ap r;24(4):479-95. doi: 10.1038/ejhg.2015.128. Epub 2014. PMID: 57467523; PMCID: [id number].[facility] NoteOctober 2024 10:55amNovember 2024 4:08pmComment.Technical Component performed at [facility] RTPProfessional Component performed by:Georgina Whitfield, PhD, [id number], [facility], [address] [facility] [id number] at: - [facility] [id number] Clarisse GrandaNORTHERN [facility], [place] [id number] Director: Sawyer Hussein [facility], Phone: [phone] [facility] C InterpretationOctober 2024 10:55amOctober 2024 2:36amComment.Not infected with HCV unless early or acute infection issuspected (which may be delayed in an immunocompromisedindividual), or other evidence exists to indicate HCVinfection.[facility]atidylethanol QualitativeOctober 2024 10:55amNovember 2024 7:08pmNegative.[facility]Mer[facility] QuantitativeOctober 2024 10:55amNovember 2024 7:08pmNegative ng/mL.Analyzed compound: PEth 16:0/18:1. 3-vqojsimus-8-vfomii-hw-uduasqc-3-phosphoethanol.Analysis performed by Liquid Chromatography withTandem Mass Spectrometry (LC/MS/MS).Detection limit: 20 ng/mLPEth levels in excess of 20 ng/mL are considered evidenceof moderate to heavy ethanol consumption. However,the Center for Substance Abuse Treatment (CSAT) advisescaution in interpretation and use of biomarkers aloneto assess alcohol use. Results should be interpretedin the context of all available clinical and behavioralinformation.Reference: Substance Abuse and Mental Health Services Administration (2012). The Role of Biomarkers in the Treatment of Alcohol Use Disorders , 2012 Revision. Advisory, Volume 11, Issue 2.This test was developed and its performance characteristicsdetermined by [employer]. It has not been cleared or approvedby the Food and Drug Administration.Performed at: [facility] [place] [id number] Director: [facility], Phone: [phone] Microbiology Results Procedure Source Result Collection Date/Time Result Date/Time Result Comment Performing Site Urine Culture Urine, Not Otherwise Specified Escherichia coli July 13, 2025 12:21am July 15, 2025 12:02pm [facility] [id number] [address] [place] [address] Vital Signs Vital Reading Result Reference Range Collection Date/Time Height 66 [in_i] August 21, 2025 1:99dwFixnpa40.91 kgOctober 2024 1:44pmBody Temperature 97.5 [degF]97.6-99.0October 2024 1:44pmHeart Rate79 /gpz20-129Zwifvkf 2024 1:44pmRespiratory rate16 /dyw40-08Dtfuies 2024 1:44pmOxygen saturation by Pulse rukikbjv88 %95-100October 2024 1:44pmBP Pcdkaqsh796 mm[Hg]100-140 August 21, 2025 1:44pmBP Qbsikgkyv07 mm[Hg]60-100October 2024 1:44pmBMI (Body Mass Index)29.8 kg/n4Okybugl 2024 1:67ndBdjthh22 [in_i]September 18, 2025 9:77ksHoacaq35.91 kgOctober 2024 9:59amHeart Rate68 /egl05-955Upkfwec 2024 9:59amBP Dnlctxiv508 mm[Hg]100-140October 2024 9:59amBP Loaxairki35 mm[Hg]60-100October 2024 9:59amBMI (Body Mass Index)29.8 kg/m2 September 18, 2025 9:59am Advance Directives Advance Directive Response Recorded Date/ Time Advance Directives No December 10, 2024 8:39am Insurance Providers Guarantor Shirley Hannah Brian Address [address] [place], [place] [id number] Info.Home Phone: Coverage Status Update:2025 Payer Group Member ID Coverage Type Subscriber Relationship to Subscriber Effective Date Expiration Date MMO [id number] Hannah Brian Id: [id number] [address] [place] [phone] Home Phone: [employer] [id number] Hannah Roc Id: [id number] [address] [place] [phone] Home Phone: [employer] [id number] A Sanchez Id: [id number] [address] [place] [phone] Home Phone: Self Encounters Encounter Location(s) Arrival/Admit Date Discharge/Departure Date Discharge/Departure Disposition Provider(s) Departed Referred -[facility] July 13, 2025 12:21am July 13, 2025 12:22am Discharged to home care or self care (routine discharge) Joan Hoang MD Departed Physician/ Provider [facility] August 21, 2025 2:34pm August 21, 2025 3:12pm Discharged to home care or self care (routine discharge) Coni Lew MD Departed Physician/ Provider Office Visit -[facility] September 18, 2025 10:55am September 18, 2025 11:23am Discharged to home care or self care (routine discharge) Eric Sosa MD Departed Clinical -[facility] September 18, 2025 11:40am September 18, 2025 11:41am Discharged to home care or self care (routine discharge) Eric Sosa MD Departed Clinical -[facility] October 03, 2025 12:25pm October 03, 2025 12:43pm Discharged to home care or self care (routine discharge) Eric Sosa MD Recent Diagnosis Onset Date Admit Date A-fib Unknown August 21 2:34pm AVM (arteriovenous malformation) Unknown August 21, 2025 2:34pm Cirrhosis of liver not due to alcohol Unknown August 21, 2025 2:34pm Diabetes Unknown August 21 2:34pm History of endometrial cancer Unknown Oc tober 2024 2:34pm Iron deficiency anemia Unknown August 212024 2:34pm Cirrhosis Unknown September 18 10:55am Hepatic encephalopathy Unknown August 222024 10:55am Metabolic syndrome Unknown September 18, 2025 10:55am Assessments Author Eric Sosa [facility] 2024 10:22zc69-vxfl-fiv female referred to the liver clinic for evaluation of cirrhosis Ultrasound on 08/07/2025 showed cirrhotic liver +mild memory loss over the last few months. EGD/colonoscopy on 11/07/2024 showed hiatal hernia, colonic polyp and sigmoid diverticulosis. Patient has obesity diabetes type 2 hypertension and dyslipidemia which are risk factors associated with MASLD - Will check MELD labs - Will check laboratory workup for infectious autoimmune or metabolic etiologies of liver diseases -Will arrange for FibroScan - Will get ultrasound and AFP every 6 months for hepatocellular carcinoma screening - Will start rifaximin 550 mg twice daily for hepatic encephalopathy grade 1 Plan of Treatment Author [facility] 1:49pmThiyosef is a 69-year-old lady who was referred for recent diagnosis of iron deficiency anemia requiring transfusion for hemoglobin 5.6 with hypovolemic shock at [facility] in late June. She then went on to receive 3 more iron infusions as an outpatient. Her follow-up iron studies from mid July interestingly show improved hemoglobin to 9 but ferritin is markedly elevated. She also has signs of cirrhosis based on FibroTest labs during her recent hospitalization at [facility]. Interestingly she had persistent anemia but most recent iron studies from early July showed significant elevation in ferritin over 1000 following recent iron infusions. We will coordinate follow-up CBC and iron studies near her home and if she still has elevated ferritin and hemoglobin uptrending, we will coordinate routine CBC and iron studies based on her results. Otherwise due to her abnormal liver FibroTest results, we will set up hepatology consult. She had cirrhotic changes on liver ultrasound. Denies regular alcohol use. Follow-up visit will likely be in October 2025 after we review her CBC and iron trends. This is a high complexity visit for minutes gbtu-mb-xswg and 30 minutes for review of labs and coordination of care. Thank you for referring this pleasant patient to our practice. I will keep you up-to-date with her progress. Please feel free to contact me if you have any questions regarding her care. Sincerely, Dr. Soila Victor Recent diagnosis of AVMs by endoscopy but most recent EGD in April did not show any evidence of active bleeding. Will continue to monitor iron requirement and patient will consider placement of Watchman device to decrease bleeding risk by stopping chronic anticoagulation. Remote history of endometrial cancer with surgery around 2011. Unsure of stage but did not require adjuvant therapy. Continue to follow clinically. Patient had recent diagnosis of atrial fibrillation when she was admitted for urosepsis last year. She is on chronic Eliquis but as noted above she is being evaluated for possible Watchman device placement. She has diabetes mellitus managed with glimepiride and metformin, continues follow-up with primary care. Elevated transaminases and cirrhotic changes on ultrasound and by FibroTest after recent hospitalization. Known history of AVMs. She has been evaluated by GI for endoscopies at [facility] but will send consult to Dr. Sosa hepatology locally for further workup. Future Tests Future scheduled test information is unavailable Pending Tests Pending diagnostic test information is unavailable Future Visits Future appointment information is unavailable Future Procedures Future procedure information is unavailable Future Medications Future medication information is unavailable Patient Instructions Patient instructions are unavailable Goals Acute Goals Author Authored Date Experience reduced anxiety * Identifies current stressors * Develops effective coping behaviors * [facility] 20[facility] 1:04pmRemain free of complications [facility] 2024 1:04pmUnderstand preop/postop care/sensations * Verbalizes understanding of surgical procedure * Verbalizes understanding of sensations following surgery * Verbalizes understanding of [facility] 1:04pmReport pain at tolerable level * Uses pain scale appropriately * Identify options for pain control - Analgesics - Narcotics - Non-medication measuresSelect [facility] 2024 1:04pmAbsence of imbalanced fluid volume s/s [facility] 2024 1:04pmAbsence of physical injury [facility] 2024 1:04pmAbsence of surgical site infection [facility] 2024 1:04pm
--- OUTSIDE RECORDS SUMMARY | 2025-10-04 08:49 | XMS_ITS ---
Author Organization [facility] Address [address] [place] [address] Care Team Providers Care Emergency Services Professional Name Role Phone Harry Suárez MD Primary Care Provider [phone] Carlos Renee MD Unavailable [phone] Active Problems ProblemNoted DateDiagnosed DateAltered mental fsqsqu0809/25/2025nemia due to chronic blood loss09/25/20253768Wdptwte32/05/5024Hnlkftu12/05/2025ervical strain 5Chest wall pain09/25/2025lostridial fngfagdoqkumqig03/05/2025 Congestive heart igeztwp2309/25/2025Fluid ybvplujv29/05/2025Gastrointestinal lsbgbjiyea32/05/2025Hepatic hybteqqzgmduhh67/05/2025History of endometrial dqdbix3209/25/20259572Jmndxslshgcwvw92/05/7509Nllchpfxdlpcxc84/05/2025Iron deficiency dqxdvz1709/25/2025Metabolic sngppayr74/05/2025Non-alcoholic srjabzqwy56/05/2025 Zhkymlyjt2025Portal bkexfwxvyspz31/05/2025Sleep apnea09/25/2025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09/25/2025Uterine umujbd3409/25/2025Gastric AVM07/18/2025Pruritic pnezkpdqm19/21/2025Persistent atrial vgggneffotug21/24/2025-fib5Benign essential kfqqhkwgpgah29/20/2024MI 36.0-36.9,adult4Class 3 obesity 11/09/2024hange in bowel qqwuvr5811/09/2024iabetes mellitus with both eyes affected by mild nonproliferative retinopathy without macular edema, without long-term current use of gbwtpbc6211/09/20246586Dzmfwznyyrtbcb06/20/2024History of Clostridium difficile djzovsj4411/09/20248070Baomsg26/20/2024Occult blood in stools 11/09/2024OE (dyspnea on exertion)04/19/2024Valvular heart efkbdmg4604/19/2024 Class 2 obesity due to excess calories without serious comorbidity with body mass index (BMI) of 35.0 to 35.9 in adult04/19/20245254Unuqyy32 Biceps tendinitis of left brugndpk43ataract11/08/2023 11/08/2023hronic kidney rixxbke99isorder of intervertebral disc of lumbar spineiverticular disease of colon11/08/2023 11/08/2023ry eye ivswmpmh32yslipidemia Enterocolitis due to Clostridium difficile, not specified as nsplpwelo77/19/2023 11/08/20237731Tospwyqficip86ure lilyhcyonotsmujnnglk31/19/2023 11/08/2023Rotator cuff tear, lefttrial fibrillation Assessment & Plan (06/28/2023 3:16 PM EDT): -CCL1YP8-QSCm at least 4 for age, gender, hypertension, [...] stable, continue medication Acute on chronic heart failure with preserved ejection fractionLVH (left ventricular hypertrophy)Mitral valve insufficiency and aortic valve insufficiency Current Treatment and Therapy Plans No current plan information found. Past Treatment and Therapy Plans No past plan information found. Lifetime Dose Tracking * ChemicalLifetime DoseAutomatic EntryManual EntryFluoro Time14.8 minutes0 vnercvh93.8 minutesAir Kerma87 mGy0 mGy87 mGyDose Area Product9,100 mGy-cm20 mGy-cm29,100 mGy-cm2 Resolved Problems ProblemNoted DateDiagnosed DateResolved DateCarcinoma of cajjdwsdsob94/20/2024 07/18/2025
--- OUTSIDE RECORDS SUMMARY | 2025-10-04 08:50 | XMS_ITS | Patient Health Record ---
Author Organization The [facility] in [place] Address [address] [place] [address] Care Team Providers Care Aluminum Welder Name Role Phone Shaq Valencia Primary Care Provider [phone] Allergies Allergen (clinical drug ingredient) Drug/Non Drug Allergy documented on EMR Reaction Allergy Type Onset Date Status Substance with sulfonamide s tructure and antibacterial mechanism of action (substance) Sulfa Antibiotics hives Drug Allergy Active Results Component Value Reference Range Notes MAGNESIUM Reviewed date:11/04/2024 08:21:50 PM Interpretation: Performing Lab: Notes/Report: [facility] , Magnesium 1.7 1.8-2.4 mg/dL Performing Lab:see noteML - [facility] LBPROF 14(COMP METB) Reviewed date:11/04/2024 08:21:50 PM Interpretation: Performing Lab: Notes/Report: [facility] ,Qckord124651-464 mmol/LPotassium4.13.5-5.1 mmol/DRlxjmvim10396-059 mmol/LCarbon Jnnhvwd13.021.0-32.0 mmol/LAnion Gap17.5Sopggty69917-977 mg/dLBlood Urea Spkpazbt31.07.0-18.0 mg/dLCreatinine0.900.55-1.02 mg/dLEstimated GFR ( Madiha>60>=60 mL/min/1.73m 2Estimated GFR (Non- Ana Luisa>60>=60 mL/min/1.73m 2BUN Creatinine Ratio17.1Lxzudnq4.18.5-10.1 mg/dLBilirubin Total1.30.2-1.0 mg/dL Aspartate Amino Ivsyjtmgjtj2892-99 U/LAlanine Eylxdhzynfddhjvq7885-79 U/L Alkaline Kvkqzvszvoz72851-997 U/LTotal Protein7.26.4-8.2 g/dLAlbumin Level2.8 3.4-5.0 g/dLGlobulin4.4Albumin Globulin Ratio0.6Performing Lab:see noteML - [facility] LBProthrombin Time INR Reviewed date:11/04/2024 08:21:50 PM Interpretation: Performing Lab: Notes/Report: [facility] ,Prothrombin Time10.99.0-11.6 secINR1.03 DESIRED INR: 2.0-3.0 CONDITIONS NOT LISTED BELOW 2.5-3.5 FOR PROSTHETIC HEART VALVE REPLACEMENT 2.5-3.5 RECURRENT THROMBOSIS Performing Lab:see noteML - [facility] LBTroponin I High Sensitivity Reviewed date:11/04/2024 08:21:50 PM Interpretation: Performing Lab: Notes/Report: [facility] ,Troponin I High Yxtsjvqrteb07.04.0-51.3 pg/mL CUT-OFF POINTS HAVE BEEN ESTABLISHED BASED ON THE FOURTH UNIVERSAL DEFINITION OF MYOCARDIAL INFARCTION. THE UPPER REFERENCE LIMIT (URL) OF TROPONIN, DEFINED THE 99TH PERCENTILE OF cTnI DISTRIBUTION IN A REFERENCE POPULATION, HAS BEEN CONFIRMED THE DECISION THRESHOLD FOR OR DIAGNOSIS. 99TH PERCENTILE = 51.4 PG/ML NOTE: HIGH-SENSITIVITY TROPONIN ASSAY IS NOT INTENDED TO BE USED IN ISOLATION BUT SHOULD BE INTERPRETED IN CONJUNCTION WITH OTHER DIAGNOSTIC AND CLINICAL INFORMATION. Performing Lab:see noteML - [facility] LBCBC AUTO DIFF Reviewed date:11/15/2024 06:06:54 PM Interpretation: Performing Lab: Notes/Report: [facility] ,White Blood Count13.34.0-11.0 10 3/uLRed Blood Count3.384.20-5.40 10 6/uL Hemoglobin8.112.0-16.0 g/aPSaqrsujdsx33.236.0-48.0 %Mean Corpuscular Torwfp41.5 81.0-99.0 fLMean Corpuscular Nldrmqrwew68.026.7-34.0 pgMean Corpuscular HGB Conc 29.829.9-35.2 g/dLRed Cell Distribution Width20.611.0-15.0 %Platelet Vtvqb671 150-450 10 3/uLMean Platelet Jibpsq36.29.5-13.5 fLPerforming Lab:see note - [facility] LBCRP Reviewed date:11/15/2024 06:06:54 PM Interpretation: Performing Lab: Notes/Report: Comment off am blood if possible [facility] ,C Reactive Hevgrgr95.28<=0.50 mg/dLPerforming Lab:see note - [facility] LBGLUCOSE CSF Reviewed date:11/15/2024 06:06:54 PM Interpretation: Performing Lab: Notes/Report: [facility] ,Glucose NUQ68551-40 mg/dLPerforming Lab:see [facility] LB IRON AND TIBC Reviewed date:11/15/2024 06:06:54 PM Interpretation: Performing Lab: Notes/Report: [facility] ,Iron9.050.0-170.0 ug/dLTotal Iron Binding Tqnbexat704.0250.0-450.0 ug/dLPercent Iron Saturation4.0Performing Lab:see note - [facility] LBLACTATE or LACTIC ACID Reviewed date:11/15/2024 06:06:54 PM Interpretation: Performing Lab: Notes/Report: [facility] ,Lactate/Lactic Acid4.50.4-2.0 mmol/LRESULTS CALLED TO MELECIO GRACE RN Performing Lab:see note - [facility] LBMAGNESIUM Reviewed date:11/15/2024 06:06:54 PM Interpretation: Performing Lab: Notes/Report: [facility] ,Magnesium2.01.8-2.4 mg/dLPerforming Lab:[facility] PROF 14(COMP METB) Reviewed date:11/15/2024 06:06:54 PM Interpretation: Performing Lab: Notes/Report: [facility] ,Fgcyxt479782-211 mmol/LPotassium4.73.5-5.1 mmol/WUlzzmpfm6009-908 mmol/LCarbon Napaict57.221.0-32.0 mmol/LAnion Gap19.5Qxdicuo77390-021 mg/dLBlood Urea Rsajaagf76.07.0-18.0 mg/dLCreatinine1.920.55-1.02 mg/dLEstimated GFR ( Myhkrjw89>=60 mL/min/1.73m 2Estimated GFR (Non- Ame26>=60 mL/min/1.73m 2 BUN Creatinine Ratio28.5Iiprowb4.78.5-10.1 mg/dLBilirubin Total1.70.2-1.0 mg/dL Aspartate Amino Bttgvxfgkev4699-47 U/LAlanine Ihrucfragoxjonsm8269-90 U/L Alkaline Flaeewanzkh20423-144 U/LTotal Protein5.76.4-8.2 g/dLAlbumin Level1.6 3.4-5.0 g/dLGlobulin4.1Albumin Globulin Ratio0.4Performing Lab:see noteML - [facility] LBPROTEIN CSF Reviewed date:11/15/2024 06:06:54 PM Interpretation: Performing Lab: Notes/Report: [facility] ,Total Protein RUQ78947-31 mg/dLPerforming Lab:see noteML - [facility] LBManual Differential Reviewed date:11/15/2024 06:06:54 PM Interpretation: Performing Lab: Notes/Report: [facility] ,Segmented Neutrophils % Vrhjed43.043.0-75.0Band Neutrophils %9.00-5 % Lymphocytes Percent Manual3.020.5-60.0 %Monocytes Percent Manual3.01.7-12.0 % Eosinophils Percent Manual0.00.9-7.0 %Basophils Percent Manual0.00.2-2.0 % Metamyelocytes %1.0Segmented Neut Absolute Kextbp60.171.4-6.5 10 3/uLBand Neutrophils Absolute1.20.0-0.3 10 3/uLLymphocytes Absolute Manual0.391.20-3.80 10 3/uLMonocytes Absolute Manual0.390.30-0.80 10 3/uLEosinophils Absolute Manual 0.000.00-0.70 10 3/uLBasophils Abs Manual0.000.00-0.10 10 3/uLMetamyelocytes Absolute Manual0.13Dohle Bodies1+Performing Lab:see noteML - [facility] LBTroponin I High Sensitivity Reviewed date:11/15/2024 06:06:54 PM Interpretation: Performing Lab: Notes/Report: Comment from labs this am [facility] ,Troponin I High Fyocylcdbej24.94.0-51.3 pg/mL CUT-OFF POINTS HAVE BEEN ESTABLISHED BASED ON THE FOURTH UNIVERSAL DEFINITION OF MYOCARDIAL INFARCTION. THE UPPER REFERENCE LIMIT (URL) OF TROPONIN, DEFINED THE 99TH PERCENTILE OF cTnI DISTRIBUTION IN A REFERENCE POPULATION, HAS BEEN CONFIRMED THE DECISION THRESHOLD FOR OR DIAGNOSIS. 99TH PERCENTILE = 51.4 PG/ML NOTE: HIGH-SENSITIVITY TROPONIN ASSAY IS NOT INTENDED TO BE USED IN ISOLATION BUT SHOULD BE INTERPRETED IN CONJUNCTION WITH OTHER DIAGNOSTIC AND CLINICAL INFORMATION. Performing Lab:see noteML - [facility] LBReticulocyte Pct Auto Reviewed date:11/15/2024 06:06:54 PM Interpretation: Performing Lab: Notes/Report: [facility] ,Reticulocyte Pct Auto2.220.60-3.10 %Performing Lab:see noteML - [facility] LBBox Test Reviewed date:11/18/2024 03:05:02 PM Interpretation: Performing Lab: Notes/Report: CSF TUBE #2 FOR CULTURE [facility] ,BOX Test Sent [facility] CULTUREBOX Test Reference LabFIRELANDSBOX Test Date Sent 11/15/24BOX Test ResultSEE SCANNED REPORTPerforming Lab:see note - [facility] LBCBC AUTO DIFF Reviewed date:11/15/2024 06:06:54 PM Interpretation: Performing Lab: Notes/Report: [facility] ,White Blood Count10.04.0-11.0 10 3/uLRed Blood Count3.554.20-5.40 10 6/uL Hemoglobin8.512.0-16.0 g/aFNbxwhfohgn20.336.0-48.0 %Mean Corpuscular Ylenlq61.7 81.0-99.0 fLMean Corpuscular Ibpybiekqk46.926.7-34.0 pgMean Corpuscular HGB Conc 30.029.9-35.2 g/dLRed Cell Distribution Width20.411.0-15.0 %Platelet Gxzgw541 150-450 10 3/uLMean Platelet Igogkk76.49.5-13.5 fLPerforming Lab:see noteML - [facility] LBUA RANDOM W or MICROSCOPIC Reviewed date:12/30/2024 11:28:24 AM Interpretation: Performing Lab: Notes/Report: [facility] ,Color UrineLT. YELLOWYELLOWClarity UrineCLEARCLEARSpecific [place] Urine1.010 1.005-1.025pH Urine7.05.0-9.0Protein UrineNEGATIVENEG/TRACE mg/dLGlucose Urine UANEGATIVENEGATIVE mg/dLBilirubin UrineNEGATIVENEGATIVEKetones UrineNEGATIVE NEGATIVE mg/dLBlood UrineNEGATIVENEGATIVENitrite UrineNEGATIVENEGATIVE Urobilinogen Urine0.20.2-1.0 EU/dLLeukocyte Esterase UrineTRACENEGATIVEWBC Urine 2-5NONE SEEN #/HPFRBC Urine0-20-2 #/HPFBacteria UrineMODERATENONE SEEN #/HPF Mucus UrineNONE SEENNONE SEENSquamous Epithelial Cell UrineMODERATENONE/RARE #/LPFCrystals Seen?None SeenNone Seen #/HPFCast Seen?SEENNONE SEEN #/LPFHyaline Casts UrineRAREUrine Culture IndicatedYESPerforming Lab:see noteML - [facility] LBBNP Reviewed date:11/19/2024 08:36:55 PM Interpretation: Performing Lab: Notes/Report: [facility] ,NT Pro B Type Natriuretic Hjrj9782.0<=900.0 pg/mLRESULTS CALLED TO Jaymie Lopez, RNPerforming Lab:see noteML - [facility] LBPROF 14(COMP METB) Reviewed date:11/18/2024 03:05:02 PM Interpretation: Performing Lab: Notes/Report: [facility] ,Xefkrr483437-449 mmol/LPotassium4.13.5-5.1 mmol/EIlsqxzfp77985-180 mmol/LCarbon Urzeiji51.521.0-32.0 mmol/LAnion Gap12.7Jmvzqlg1382-871 mg/dLBlood Urea Nitrogen 25.07.0-18.0 mg/dLCreatinine0.720.55-1.02 mg/dLEstimated GFR ( Madiha>60 >=60 mL/min/1.73m 2Estimated GFR (Non- Ana Luisa>60>=60 mL/min/1.73m 2BUN Creatinine Ratio34.9Bngwpls2.78.5-10.1 mg/dLBilirubin Total0.90.2-1.0 mg/dL Aspartate Amino Okbsrhgihjw6355-11 U/LAlanine Lmwvgimdedmsozfd8131-34 U/L Alkaline Dayhtkzbnrr85072-203 U/LTotal Protein5.26.4-8.2 g/dLAlbumin Level1.3 3.4-5.0 g/dLGlobulin3.9Albumin Globulin Ratio0.3Performing Lab:see note - [facility] LBBNP Reviewed date:11/18/2024 03:05:02 PM Interpretation: Performing Lab: Notes/Report: [facility] ,NT Pro B Type Natriuretic Notq1571.0<=900.0 pg/mLRESULTS CALLED TO JAYMIE LOPEZ RNPerforming Lab:see note - [facility] LBProthrombin Time INR Reviewed date:11/17/2024 08:58:56 PM Interpretation: Performing Lab: Notes/Report: [facility] ,Prothrombin Time12.49.0-11.6 secINR1.19 DESIRED INR: 2.0-3.0 CONDITIONS NOT LISTED BELOW 2.5-3.5 FOR PROSTHETIC HEART VALVE REPLACEMENT 2.5-3.5 RECURRENT THROMBOSIS Performing Lab:see note - [facility] LBPTT Reviewed date:11/17/2024 08:58:56 PM Interpretation: Performing Lab: Notes/Report: [facility] ,Partial Thromboplastin Time31.622.3-36.2 secPerforming Lab:see note - [facility] LBPROF 14(COMP METB) Reviewed date:11/17/2024 08:58:56 PM Interpretation: Performing Lab: Notes/Report: [facility] ,Hyssay506126-304 mmol/LPotassium3.73.5-5.1 mmol/JAogyqufw79371-433 mmol/LCarbon Whwvvzb83.221.0-32.0 mmol/LAnion Gap10.2Xufgokl07646-523 mg/dLBlood Urea Ehqkkihd57.07.0-18.0 mg/dLCreatinine0.910.55-1.02 mg/dLEstimated GFR ( Madiha>60>=60 mL/min/1.73m 2Estimated GFR (Non- Ana Luisa>60>=60 mL/min/1.73m 2BUN Creatinine Ratio42.0Jkndpuu2.08.5-10.1 mg/dLBilirubin Total0.70.2-1.0 mg/dL Aspartate Amino Zeyooakyjol1752-50 U/LAlanine Acmzvmjnomxkqxyk1175-98 U/L Alkaline Jijsasvaffd65742-489 U/LTotal Protein5.16.4-8.2 g/dLAlbumin Level1.1 3.4-5.0 g/dLGlobulin4.0Albumin Globulin Ratio0.3Performing Lab:see noteML - [facility] LBDIGOXIN Reviewed date:11/17/2024 08:58:56 PM Interpretation: Performing Lab: Notes/Report: [facility] ,Digoxin0.80.9-2.0 ng/mLPerforming Lab:see noteML - [facility] LBCBC AUTO DIFF Reviewed date:11/17/2024 08:58:56 PM Interpretation: Performing Lab: Notes/Report: [facility] ,White Blood Count11.64.0-11.0 10 3/uLRed Blood Count4.024.20-5.40 10 6/uL Hemoglobin9.712.0-16.0 g/hJQryrkcvudl26.936.0-48.0 %Mean Corpuscular Zzabak40.4 81.0-99.0 fLMean Corpuscular Cvuoxiveql15.126.7-34.0 pgMean Corpuscular HGB Conc 30.429.9-35.2 g/dLRed Cell Distribution Width20.811.0-15.0 %Platelet Xuunb264 150-450 10 3/uLMean Platelet Hurqym85.69.5-13.5 fLNeutrophils Percent Auto74.2 43.0-75.0 %Lymphocytes Percent Auto16.020.5-60.0 %Monocytes Percent Auto5.91.7- 12.0 %Eosinophils Percent Auto1.20.9-7.0 %Basophils Percent Auto0.30.2-2.0 % Immature Granulocytes Pct Auto2.40.0-0.5 %Neutrophils Absolute Auto8.61.4-6.5 10 3/uLLymphocytes Absolute Auto1.91.2-3.8 10 3/uLMonocytes Absolute Auto0.70.3-0.8 10 3/uLEosinophils Absolute Auto0.10.0-0.7 10 3/uLBasophils Absolute Auto0.00.0- 0.1 10 3/uLImmature Granulocytes Abs Auto0.280.00-0.03 10 3/uLPerforming Lab:see noteML - [facility] LBBNP Reviewed date:11/17/2024 08:58:56 PM Interpretation: Performing Lab: Notes/Report: [facility] ,NT Pro B Type Natriuretic Eoeo2074.0<=900.0 pg/mLRESULTS CALLED TO MELECIO GRACE, RNPerforming Lab:see note - [facility] LBManual Differential Reviewed date:11/17/2024 08:58:56 PM Interpretation: Performing Lab: Notes/Report: [facility] ,Segmented Neutrophils % Sgqaax24.043.0-75.0Lymphocytes Percent Manual9.020.5- 60.0 %Monocytes Percent Manual1.01.7-12.0 %Eosinophils Percent Manual0.00.9-7.0 %Basophils Percent Manual0.00.2-2.0 %Segmented Neut Absolute Iuchkj98.441.4-6.5 10 3/uLLymphocytes Absolute Manual1.041.20-3.80 10 3/uLMonocytes Absolute Manual 0.110.30-0.80 10 3/uLEosinophils Absolute Manual0.000.00-0.70 10 3/uLBasophils Abs Manual0.000.00-0.10 10 3/uLPerforming Lab:see note - [facility] LBProthrombin Time INR Reviewed date:11/17/2024 08:58:56 PM Interpretation: Performing Lab: Notes/Report: [facility] ,Prothrombin Time13.59.0-11.6 secINR1.31 DESIRED INR: 2.0-3.0 CONDITIONS NOT LISTED BELOW 2.5-3.5 FOR PROSTHETIC HEART VALVE REPLACEMENT 2.5-3.5 RECURRENT THROMBOSIS Performing Lab:see note - [facility] LBPTT Reviewed date:11/17/2024 08:58:56 PM Interpretation: Performing Lab: Notes/Report: [facility] ,Partial Thromboplastin Time36.722.3-36.2 secPerforming Lab:see note - [facility] LBPROF 14(COMP METB) Reviewed date:11/17/2024 08:58:56 PM Interpretation: Performing Lab: Notes/Report: [facility] ,Dflglv055400-805 mmol/LPotassium4.33.5-5.1 mmol/TPktlnxru60089-729 mmol/LCarbon Aeygiqh23.521.0-32.0 mmol/LAnion Gap15.8Jmprtng81047-120 mg/dLBlood Urea Ibqgpsrj15.07.0-18.0 mg/dLCreatinine1.060.55-1.02 mg/dLEstimated GFR ( Madiha>60>=60 mL/min/1.73m 2Estimated GFR (Non- Ame52>=60 mL/min/1.73m 2 BUN Creatinine Ratio40.5Pueyveg4.98.5-10.1 mg/dLBilirubin Total1.30.2-1.0 mg/dL Aspartate Amino Pjhygxnpryl6719-82 U/LAlanine Nitdlohirkwheuge1593-28 U/L Alkaline Dihlmzdxjxm12343-880 U/LTotal Protein5.76.4-8.2 g/dLAlbumin Level1.3 3.4-5.0 g/dLGlobulin4.4Albumin Globulin Ratio0.3Performing Lab:see note - [facility] LBDIGOXIN Reviewed date:11/17/2024 08:58:56 PM Interpretation: Performing Lab: Notes/Report: [facility] ,Digoxin0.80.9-2.0 ng/mLPerforming Lab:see note - [facility] LBCBC AUTO DIFF Reviewed date:11/17/2024 08:58:56 PM Interpretation: Performing Lab: Notes/Report: [facility] ,White Blood Count11.64.0-11.0 10 3/uLRed Blood Count3.524.20-5.40 10 6/uL Hemoglobin8.412.0-16.0 g/rUGzjjbktccw97.636.0-48.0 %Mean Corpuscular Ssjjsc84.4 81.0-99.0 fLMean Corpuscular Lvdjlrgcft81.926.7-34.0 pgMean Corpuscular HGB Conc 30.429.9-35.2 g/dLRed Cell Distribution Width20.411.0-15.0 %Platelet Cvqbg143 150-450 10 3/uLMean Platelet Dqcflh29.19.5-13.5 fLPerforming Lab:see [facility] LBBNP Reviewed date:11/17/2024 08:58:56 PM Interpretation: Performing Lab: Notes/Report: [facility] ,NT Pro B Type Natriuretic Uhmu26237.0<=900.0 pg/mL RESULTS CALLED TO ICU Emerald Dominguez RN @BY Shelton Fernando MLT at 0643 Performing Lab:see [facility] LBManual Differential Reviewed date:11/15/2024 06:06:54 PM Interpretation: Performing Lab: Notes/Report: [facility] ,Segmented Neutrophils % Qolofk06.043.0-75.0Band Neutrophils %20.00-5 % Lymphocytes Percent Manual2.020.5-60.0 %Monocytes Percent Manual1.01.7-12.0 % Eosinophils Percent Manual1.00.9-7.0 %Basophils Percent Manual0.00.2-2.0 % Segmented Neut Absolute Manual7.601.4-6.5 10 3/uLBand Neutrophils Absolute2.0 0.0-0.3 10 3/uLLymphocytes Absolute Manual0.201.20-3.80 10 3/uLMonocytes Absolute Manual0.100.30-0.80 10 3/uLEosinophils Absolute Manual0.100.00-0.70 10 3/uLBasophils Abs Manual0.000.00-0.10 10 3/uLPolychromasia1+Anisocytosis2+ Ovalocytes1+Performing Lab:see [facility] LBBNP Reviewed date:11/15/2024 06:06:54 PM Interpretation: Performing Lab: Notes/Report: [facility] ,NT Pro B Type Natriuretic Doyn12773.0<=900.0 pg/mL RESULTS CALLED TO christine shankar rn @BY Payton Julien at 1308 Performing Lab:see noteML - [facility] LBPROF 14(COMP METB) Reviewed date:11/15/2024 06:06:54 PM Interpretation: Performing Lab: Notes/Report: [facility] ,Ebsfqe453493-788 mmol/LPotassium4.73.5-5.1 mmol/GBnemjeyu79982-990 mmol/LCarbon Zfqiqtj40.221.0-32.0 mmol/LAnion Gap18.9Dqqxmya07580-683 mg/dLBlood Urea Rhekdgpk81.07.0-18.0 mg/dLCreatinine1.700.55-1.02 mg/dLEstimated GFR ( Rxdgvjb16>=60 mL/min/1.73m 2Estimated GFR (Non- Ame30>=60 mL/min/1.73m 2 BUN Creatinine Ratio31.9Yzkrpkn4.58.5-10.1 mg/dLBilirubin Total1.90.2-1.0 mg/dL Aspartate Amino Wdgaldiaazf3246-77 U/LAlanine Rbtzoeifekyaefoa5557-59 U/L Alkaline Jmprtfaztlj07443-242 U/LTotal Protein5.76.4-8.2 g/dLAlbumin Level1.4 3.4-5.0 g/dLGlobulin4.3Albumin Globulin Ratio0.3Performing Lab:see noteML - [facility] LBLACTATE or LACTIC ACID Reviewed date:11/15/2024 06:06:54 PM Interpretation: Performing Lab: Notes/Report: N [facility] ,Lactate/Lactic Acid3.40.4-2.0 mmol/L RESULTS CALLED TO CHRISTINE SHANKAR RN @BY Payton Julien at 0921 Performing Lab:see noteML - [facility] LBFL guided lumbar puncture LP Reviewed date:11/15/2024 06:06:55 PM Interpretation: Performing Lab: Notes/Report: Source Facility: [facility]-[address] [place] [address] [place] [address] Fluoroscopy Report Signed Patient: CONNIE BRIAN MR#: [id number] : 1955 Acct:[id number] Age/Sex: 69 / F ADM Date: 11/14/24 Loc: ICU 274-[address]: Harry Valencia M.D. Ordering Physician: Harry Valencia M.D. Date of Service: 11/15/24 Procedure(s): FL guided lumbar puncture LP Accession Number(s): [id number] cc: Harry Valencia M.D. [place] [address] Patient Name: CONNIE BRIAN MRN: [id number] date: 1955 Sex: F Assigned Patient Location: ICU Current Patient Location: ICU Accession/Order Number: [id number] Exam Date: 11/15/2024 13:10 Report Date: 11/15/2024 [...] Signed By: 11/15/24 1404 DD/ 01 TD/TT: Ship Painter Helper:CT soft tissue neck w con Reviewed date:11/15/2024 06:06:55 PM Interpretation: Performing Lab: Notes/Report: Source Facility: [place] [address] [place] [address] CT Scan Report Signed Patient: CONNIE BRIAN MR#: [id number] : 1955 Acct:[id number] Age/Sex: 69 / F ADM Date: 11/14/24 Loc: ICU 274-[address]: Harry Valencia M.D. Ordering Physician: Harry Valencia M.D. Date of Service: 11/15/24 Procedure(s): CT soft tissue neck wo con Accession Number(s): [id number] cc: Harry Valencia M.D. [place] [address] Patient Name: CONNIE BRIAN MRN: [id number] date: 1955 Sex: F Assigned Patient Location: ICU Current Patient Location: ICU Accession/Order Number: [id number] Exam Date: 11/15/2024 08:35 Report Date: 11/15/2024 [...] M.D. Signed By: 11/15/24937 DD/ 5 TD/TT: Ship Painter Helper:US right upper quadrant Reviewed date:02/03/2025 03:26:35 PM Interpretation: Performing Lab: Notes/Report: Source Facility: [place] [address] Ultrasound Report Signed Patient: CONNIE BRIAN MR#: [id number] : 1955 Acct:[id number] Age/Sex: 69 / F ADM Date: 02/01/25 Loc: Attending Dr: DAMIAN MCCARTHY Ordering Physician: DAMIAN MCCARTHY Date of Service: 02/01/25 Procedure(s): US right upper quadrant Accession Number(s): [id number] cc: Harry Valencia M.D.; DAMIAN MCCARTHY [place] [address] Patient Name: CONNIE BRIAN MRN: [id number] date: 1955 Sex: F Assigned Patient Location: Current Patient Location: US Accession/Order Number: [id number] Exam Date: 02/01/2025 09:29 Report Date: 02/01/2025 [...] Lola Contreras M.D.02/01/2025 9:38 AM Dictation Location: [place] [address] Electronically authenticated by: [id number] Y Date: 02/01/2025 09:38 Dictated By: Lola Contreras M.D. Signed By: 02/01/25940 DD/ 7 TD/TT: Ship Painter Helper:MARCY echo doppler complete Reviewed date:11/15/2024 08:00:26 PM Interpretation: Performing Lab: Notes/Report: Source Facility: [place] [address] Cardiology Report Signed Patient: CONNIE BRIAN MR#: [id number] : 1955 Acct:[id number] Age/Sex: 69 / F ADM Date: 11/14/24 Loc: ICU 274-[address]: Harry Valencia M.D. Ordering Physician: Harry Valencia M.D. Date of Service: 11/15/24 Procedure(s): MARCY echo doppler complete Accession Number(s): [id number] cc: Harry Valencia M.D. Patient Name: CONNIE BRIAN MR#: [id number] : 1955 Exam Date: 11/15/2024 Ordering Doctor: [...] CROUCH Signed By: 11/15/241834 DD/ 33 TD/TT: Ship Painter Helper:SARS-CoV-2 Ag* Reviewed date:11/15/2024 06:06:54 PM Interpretation: Performing Lab: Notes/Report: [facility] ,SARS-CoV-2 AgNEGATIVENEGATIVE This test has not been FDA cleared [...] terminated or authorization is revoked sooner. Performing Lab:see noteML - [facility] LBErythrocyte Sedimentation Rate Reviewed date:11/15/2024 06:06:54 PM Interpretation: Performing Lab: Notes/Report: Comment off am blood if possible [facility] ,Erythrocyte Sedimentation Rate>130<=30 mm/hrPerforming Lab:see noteML - [facility] LBTSH Reviewed date:11/15/2024 06:06:54 PM Interpretation: Performing Lab: Notes/Report: [facility] ,Thyroid Stimulating Hormone1.5200.358-3.740 uIU/mLPerforming Lab:see noteML - [facility] LBT4 Reviewed date:11/15/2024 06:06:54 PM Interpretation: Performing Lab: Notes/Report: [facility] ,T4 Thyroxine5.204.80-13.90 ug/dLPerforming Lab:see noteML - [facility] LBRSV Reviewed date:11/15/2024 06:06:54 PM Interpretation: Performing Lab: Notes/Report: [facility] ,Respiratory Syncytial VirusNot DetectedNOT DETECTEPerforming Lab:see noteML - [facility] LBINFLUENZA A AND B AG Reviewed date:11/15/2024 06:06:54 PM Interpretation: Performing Lab: Notes/Report: [facility] ,Influenza Virus A AntigenNegative Negative for Flu A protein antigen. Infection due to Flu A cannot be ruled out. Flu A antigen in the sample may be below the detection limit of the test. Influenza Virus B AntigenNegative Negative for Flu B protein antigen. Infection due to Flu B cannot be ruled out. Flu B antigen in the sample may be below the detection limit of the test. Performing Lab:see noteML - [facility] LBHEMOGRAM AND PLATEL Reviewed date:11/15/2024 06:06:54 PM Interpretation: Performing Lab: Notes/Report: [facility] ,Hemoglobin7.512.0-16.0 g/sHUjbmcnjwui42.836.0-48.0 %Performing Lab:see noteML - [facility] LBPROF 14(COMP METB) Reviewed date:03/05/2025 04:11:43 PM Interpretation: Performing Lab: Notes/Report: [facility] ,Yucmqe645346-124 mmol/LPotassium4.23.5-5.1 mmol/AKnkrtaqy47379-195 mmol/LCarbon Gmdiwsg96.021.0-32.0 mmol/LAnion Gap17.9Rwpfvmr73336-834 mg/dLBlood Urea Ifnrfvne06.07.0-18.0 mg/dLCreatinine1.020.55-1.02 mg/dLEstimated GFR ( Madiha>60>=60 mL/min/1.73m 2Estimated GFR (Non- Ame54>=60 mL/min/1.73m 2 BUN Creatinine Ratio25.6Hosdscc4.48.5-10.1 mg/dLBilirubin Total1.00.2-1.0 mg/dL Aspartate Amino Yckuocjgzwo7076-64 U/LAlanine Temptsgpqexexrwv5797-09 U/L Alkaline Llrhxxidttb85280-649 U/LTotal Protein6.76.4-8.2 g/dLAlbumin Level2.7 3.4-5.0 g/dLGlobulin4.0Albumin Globulin Ratio0.7Performing Lab:see note - [facility] LBCELL COUNT CSF Reviewed date:11/15/2024 06:06:54 PM Interpretation: Performing Lab: Notes/Report: [facility] ,CSF Tube #3CSF ClarityCLEARCLEARCSF ColorPINKCOLORLESSCSF Total Volume8.5White Blood Cell CSF20-5 cubic mmRed Blood Cell LOO39212-2 cubic mmPerforming Lab:see note - [facility] LBBNP Reviewed date:11/15/2024 06:06:54 PM Interpretation: Performing Lab: Notes/Report: Comment from labs this am [facility] ,NT Pro B Type Natriuretic Dzgi3059.0<=900.0 pg/mLRESULTS CALLED TO SOBIA GIBBONSerforming Lab:[facility] LBBox Test Reviewed date:11/18/2024 03:05:02 PM Interpretation: Performing Lab: Notes/Report: POSITIVE BLOOD CULTURE. AEROBIC BOTTLE. [facility] ,BOX Test Sent OutBLOOD CULTUREBOX Test Reference LabFIRELANDSBOX Test Date Sent 11/14/24BOX Test ResultSEE SCANNED REPORTPerforming Lab:see [facility] LBBox Test Reviewed date:11/18/2024 03:05:02 PM Interpretation: Performing Lab: Notes/Report: POSITIVE BLOOD CULTURE. ANAEROBIC BOTTLE. [facility] ,BOX Test Sent OutBLOOD CULTUREBOX Test Reference LabFIRELANDSBOX Test Date Sent 11/14/24BOX Test ResultSEE SCANNED REPORTPerforming Lab:see [facility] LBBox Test Reviewed date:11/18/2024 03:05:02 PM Interpretation: Performing Lab: Notes/Report: POSITIVE BLOOD CULTURE. ANAEROBIC BOTTLE. [facility] ,BOX Test Sent OutBLOOD CULTUREBOX Test Reference LabFIRELANDSBOX Test Date Sent 11/14/24BOX Test ResultSEE SCANNED REPORTPerforming Lab:see [facility] - [facility] LBType and Screen Reviewed date:03/07/2025 09:11:26 PM Interpretation: Performing Lab: Notes/Report: [facility] ,Blood TypeO PositiveAntibody ScreenPOSITIVETroponin I High Sensitivity Reviewed date:03/05/2025 04:11:43 PM Interpretation: Performing Lab: Notes/Report: [facility] ,Troponin I High Dwkrpdnpmwm79.94.0-51.3 pg/mL CUT-OFF POINTS HAVE BEEN ESTABLISHED BASED ON THE FOURTH UNIVERSAL DEFINITION OF MYOCARDIAL INFARCTION. THE UPPER REFERENCE LIMIT (URL) OF TROPONIN, DEFINED THE 99TH PERCENTILE OF cTnI DISTRIBUTION IN A REFERENCE POPULATION, HAS BEEN CONFIRMED THE DECISION THRESHOLD FOR OR DIAGNOSIS. 99TH PERCENTILE = 51.4 PG/ML NOTE: HIGH-SENSITIVITY TROPONIN ASSAY IS NOT INTENDED TO BE USED IN ISOLATION BUT SHOULD BE INTERPRETED IN CONJUNCTION WITH OTHER DIAGNOSTIC AND CLINICAL INFORMATION. Performing Lab:see noteML - [facility] LBBox Test Reviewed date:11/18/2024 03:05:02 PM Interpretation: Performing Lab: Notes/Report: POSITIVE BLOOD CULTURE. AEROBIC BOTTLE. [facility] ,BOX Test Sent OutBLOOD CULTUREBOX Test Reference LabFIRELANDSBOX Test Date Sent 11/14/24BOX Test ResultSEE SCANNED REPORTPerforming Lab:see noteML - [facility] LBECG 12 lead Reviewed date:11/17/2024 08:58:56 PM Interpretation: Performing Lab: Notes/Report: Source Facility: [facility]-[address] [place] [address] [place] [address] Electrocardiograph Report Signed Patient: CONNIE BRIAN MR#: [id number] : 1955 Acct:[id number] Age/Sex: 69 / F ADM Date: 11/14/24 Loc: ICU 274-[address]: Harry Valencia M.D. Ordering Physician: Howard Abarca D.O. Date of Service: 11/14/24 Procedure(s): ECG 12 lead Accession Number(s): [id number] cc: [facility] Test Date: 2024-11-14 Pat Name: CONNIE BRIAN Department: Room: - Gender: Female Cook Mayonnaise: : 1955 Requested By: Howard Abarca Order Number: [id number] Reading MD: HARRY VALENCIA Measurements Intervals [place] Rate: 115 P: -05504 CO: -17844 QRS: 65 QRSD: 78 T: 90 QT: 322 QTc: 390 Interpretive Statements 56499 Atrial fibrillation with rapid ventricular response 68276 Nonspecific Twave abnormality, probably digitalis effect 9140 abnormal rhythm ECG No previous ECG available for comparison Dictated By: Harry Valencia M.D. Signed By: <Electronically signed by Harry Valencia M.D.> 11/16/24 0653 DD/ TD/TT: Ship Painter Helper:Troponin I High Sensitivity Reviewed date:11/15/2024 06:06:55 PM Interpretation: Performing Lab: Notes/Report: [facility] ,Troponin I High Sensitivity8.44.0-51.3 pg/mL CUT-OFF POINTS HAVE BEEN ESTABLISHED BASED ON THE FOURTH UNIVERSAL DEFINITION OF MYOCARDIAL INFARCTION. THE UPPER REFERENCE LIMIT (URL) OF TROPONIN, DEFINED THE 99TH PERCENTILE OF cTnI DISTRIBUTION IN A REFERENCE POPULATION, HAS BEEN CONFIRMED THE DECISION THRESHOLD FOR OR DIAGNOSIS. 99TH PERCENTILE = 51.4 PG/ML NOTE: HIGH-SENSITIVITY TROPONIN ASSAY IS NOT INTENDED TO BE USED IN ISOLATION BUT SHOULD BE INTERPRETED IN CONJUNCTION WITH OTHER DIAGNOSTIC AND CLINICAL INFORMATION. Performing Lab:see noteML - [facility] LBLACTATE or LACTIC ACID Reviewed date:11/15/2024 06:06:55 PM Interpretation: Performing Lab: Notes/Report: [facility] ,Lactate/Lactic Acid5.70.4-2.0 mmol/LRESULTS CALLED TO DR. Camforminsocorro Lab:see noteML - [facility] LBXR chest 1V Reviewed date:11/15/2024 06:06:55 PM Interpretation: Performing Lab: Notes/Report: Source Facility: [facility]-[address] [place] [address] [place] [address] XRay Report Signed Patient: CONNIE BRIAN MR#: [id number] : 1955 Acct:[id number] Age/Sex: 69 / F ADM Date: 11/14/24 Loc: ER Attending Dr: Ordering Physician: Sadie Cortes Date of Service: 11/14/24 Procedure(s): XR chest 1V Accession Number(s): [id number] cc: Harry Valencia M.D.; Sadie Diab [place] [address] Patient Name: CONNIE BRIAN MRN: TBH:[id number] date: 1955 Sex: F Assigned Patient Location: ER Current Patient Location: ED.MAIN Accession/Order Number: [id number] Exam Date: 11/14/2024 18:52 Report Date: 11/14/2024 [...] normal with some mild central vascular prominence. secured entrance monitor overlies left lower hemithorax. MEDIASTINAL AND HILAR CONTOUR: Within normal limits. PULMONARY PARENCHYMA AND PLEURA: No consolidation, edema, effusion, or pneumothorax. OSSEOUS STRUCTURES:Nothing significant. OTHER COMMENTS:None. XR/XR chest 1V IMPRESSION: Mild central vascular prominence. Borderline heart size. External school bus monitor overlies left lower chest wall. This report was generated with voice recognition software. Effort has been made to ensure accuracy of this report, however, occasional wording errors may persist. Please contact our office with any questions. Electronically authenticated by: HARLEY BERNAL Date: 11/14/2024 19:36 Dictated By: Harley Bernal D.O. Signed By: 11/14/241938 DD/ 35 TD/TT: Ship Painter Helper:ECG 12 lead Reviewed date:11/18/2024 03:05:02 PM Interpretation: Performing Lab: Notes/Report: Source Facility: [facility]-[address] [place] [address] [place] [address] Electrocardiograph Report Signed Patient: CONNIE BRIAN MR#: [id number] : 1955 Acct:[id number] Age/Sex: 69 / F ADM Date: 11/14/24 Loc: MS 217-[address]: Harry Valencia M.D. Ordering Physician: Sadie Cortes Date of Service: 11/14/24 Procedure(s): ECG 12 lead Accession Number(s): [id number] cc: [facility] Test Date: 2024-11-14 Pat Name: CONNIE BRIAN Department: Room: - Gender: Female Cook Mayonnaise: : 1955 Requested By: VIRGINIA LORA Order Number: [id number] Reading MD: PHIL CERVANTES Measurements Intervals [place] Rate: 127 P: -28453 CO: -62574 QRS: 57 QRSD: 82 T: 90 QT: 302 QTc: 377 Interpretive Statements 62431 Atrial fibrillation with rapid ventricular response 20430 Nonspecific Twave abnormality, probably digitalis effect 9140 abnormal rhythm ECG Compared to ECG 11/02/2024 08:30:11 Atrial flutter no longer present Electronically Signed On 11-18-2024 7:33:59 EST by PHIL CERVANTES Dictated By: Phil Cervantes D.O. Signed By: 11/18/24 0734 DD/ 1906 TD/TT: Ship Painter Helper:Box Test Reviewed date:11/17/2024 08:58:56 PM Interpretation: Performing Lab: Notes/Report: URINE CULTURE [facility] ,BOX Test Sent OutURINEBOX Test Reference LabFIRELANDSBOX Test Date Sent11/14/24 BOX Test ResultSEE SCANNED REPORTPerforming Lab:see noteML - [facility] LBTroponin I High Sensitivity Reviewed date:11/15/2024 06:06:55 PM Interpretation: Performing Lab: Notes/Report: [facility] ,Troponin I High Sensitivity5.74.0-51.3 pg/mL CUT-OFF POINTS HAVE BEEN ESTABLISHED BASED ON THE FOURTH UNIVERSAL DEFINITION OF MYOCARDIAL INFARCTION. THE UPPER REFERENCE LIMIT (URL) OF TROPONIN, DEFINED THE 99TH PERCENTILE OF cTnI DISTRIBUTION IN A REFERENCE POPULATION, HAS BEEN CONFIRMED THE DECISION THRESHOLD FOR OR DIAGNOSIS. 99TH PERCENTILE = 51.4 PG/ML NOTE: HIGH-SENSITIVITY TROPONIN ASSAY IS NOT INTENDED TO BE USED IN ISOLATION BUT SHOULD BE INTERPRETED IN CONJUNCTION WITH OTHER DIAGNOSTIC AND CLINICAL INFORMATION. Performing Lab:see noteML - [facility] LBType and Screen Reviewed date:11/15/2024 06:06:55 PM Interpretation: Performing Lab: Notes/Report: [facility] ,Blood TypeO PositiveAntibody ScreenNEGATIVEManual Differential Reviewed date:11/15/2024 06:06:55 PM Interpretation: Performing Lab: Notes/Report: [facility] ,Segmented Neutrophils % Qdjpuz63.043.0-75.0Band Neutrophils %15.00-5 % Lymphocytes Percent Manual3.020.5-60.0 %Monocytes Percent Manual5.01.7-12.0 % Eosinophils Percent Manual0.00.9-7.0 %Basophils Percent Manual0.00.2-2.0 % Metamyelocytes %1.0Segmented Neut Absolute Manual8.051.4-6.5 10 3/uLBand Neutrophils Absolute1.60.0-0.3 10 3/uLLymphocytes Absolute Manual0.311.20-3.80 10 3/uLMonocytes Absolute Manual0.530.30-0.80 10 3/uLEosinophils Absolute Manual 0.000.00-0.70 10 3/uLBasophils Abs Manual0.000.00-0.10 10 3/uLMetamyelocytes Absolute Manual0.10Nucleated Red Blood Iluug7Buifzigmkybws0+Anisocytosis1+ Microcytosis1+Performing Lab:see noteML - [facility] LBProthrombin Time INR Reviewed date:11/15/2024 06:06:55 PM Interpretation: Performing Lab: Notes/Report: [facility] ,Prothrombin Time12.89.0-11.6 secINR1.23 DESIRED INR: 2.0-3.0 CONDITIONS NOT LISTED BELOW 2.5-3.5 FOR PROSTHETIC HEART VALVE REPLACEMENT 2.5-3.5 RECURRENT THROMBOSIS Performing Lab:see noteML - [facility] LBAMMONIA Reviewed date:03/07/2025 09:11:26 PM Interpretation: Performing Lab: Notes/Report: [facility] ,Zrqwixm9650-50 umol/L RESULTS CALLED TO MARIA C HARGROVE RN @BY Zo Juarez at 0636 Performing Lab:see noteML - [facility] LBCBC AUTO DIFF Reviewed date:03/07/2025 09:11:26 PM Interpretation: Performing Lab: Notes/Report: [facility] ,White Blood Count4.44.0-11.0 10 3/uLRed Blood Count3.834.20-5.40 10 6/uL Hemoglobin9.112.0-16.0 g/qUVqhduggjjw85.036.0-48.0 %Mean Corpuscular Pncmbr15.3 81.0-99.0 fLMean Corpuscular Yiihbijxvk23.826.7-34.0 pgMean Corpuscular HGB Conc 30.329.9-35.2 g/dLRed Cell Distribution Width17.411.0-15.0 %Platelet Fqhvc445 150-450 10 3/uLMean Platelet Kiydsm71.59.5-13.5 fLNeutrophils Percent Auto48.4 43.0-75.0 %Lymphocytes Percent Auto34.920.5-60.0 %Monocytes Percent Auto11.01.7- 12.0 %Eosinophils Percent Auto4.50.9-7.0 %Basophils Percent Auto0.70.2-2.0 % Immature Granulocytes Pct Auto0.50.0-0.5 %Neutrophils Absolute Auto2.21.4-6.5 10 3/uLLymphocytes Absolute Auto1.61.2-3.8 10 3/uLMonocytes Absolute Auto0.50.3- 0.8 10 3/uLEosinophils Absolute Auto0.20.0-0.7 10 3/uLBasophils Absolute Auto0.0 0.0-0.1 10 3/uLImmature Granulocytes Abs Auto0.020.00-0.03 10 3/uLPerforming Lab:see noteML - [facility] LBPROF 14(COMP METB) Reviewed date:03/07/2025 09:11:26 PM Interpretation: Performing Lab: Notes/Report: [facility] ,Oxmusj539027-283 mmol/LPotassium5.33.5-5.1 mmol/EEgqzyows40716-149 mmol/LCarbon Bbkpmml80.921.0-32.0 mmol/LAnion Gap15.3Jfbspya10066-457 mg/dLBlood Urea Cazwuvgj59.07.0-18.0 mg/dLCreatinine1.710.55-1.02 mg/dLEstimated GFR ( Nmeuzom97>=60 mL/min/1.73m 2Estimated GFR (Non- Ame30>=60 mL/min/1.73m 2 BUN Creatinine Ratio24.3Cyfbaje8.28.5-10.1 mg/dLBilirubin Total2.00.2-1.0 mg/dL Aspartate Amino Kqmqyqxqtmx9775-21 U/LAlanine Rwkqksmrbkjucgcd9381-94 U/L Alkaline Ydphnbbuegs34160-983 U/LTotal Protein6.56.4-8.2 g/dLAlbumin Level2.8 3.4-5.0 g/dLGlobulin3.7Albumin Globulin Ratio0.8Performing Lab:see noteML - [facility] LBURINE MICROSCOPIC ONLY Reviewed date:11/15/2024 06:06:55 PM Interpretation: Performing Lab: Notes/Report: [facility] ,WBC Urine2-5NONE SEEN #/HPFRBC Urine0-20-2 #/HPFBacteria UrineMODERATENONE SEEN #/HPFMucus UrineNONE SEENNONE SEENSquamous Epithelial Cell UrineRARENONE/RARE #/LPFCrystals Seen?None SeenNone Seen #/HPFCast Seen?NONE SEENNONE SEEN #/LPF Urine Culture IndicatedYESPerforming Lab:see noteML - [facility] LBUA (CLEAN or CATCH) ELECTRIC LINEMAN or MICRO IF IND. Reviewed date:11/15/2024 06:06:55 PM Interpretation: Performing Lab: Notes/Report: [facility] ,Color UrineYELLOWYELLOWClarity UrineCLEARCLEARSpecific [place] Urine1.025 1.005-1.025pH Urine5.05.0-9.0Protein UrineTRACENEG/TRACE mg/dLGlucose Urine UA >=1000NEGATIVE mg/dLBilirubin UrineSMALLNEGATIVEKetones UrineTRACENEGATIVE mg/dL Blood UrineNEGATIVENEGATIVENitrite UrineNEGATIVENEGATIVEUrobilinogen Urine1.0 0.2-1.0 EU/dLLeukocyte Esterase UrineTRACENEGATIVEUrine Microscopic IndicatedYES Performing Lab:see noteML - [facility] LBPROF 14(COMP METB) Reviewed date:11/15/2024 06:06:55 PM Interpretation: Performing Lab: Notes/Report: [facility] ,Dudjtv595491-010 mmol/LPotassium4.13.5-5.1 mmol/ZMnjwqvni8860-011 mmol/LCarbon Rtaxkoh04.021.0-32.0 mmol/LAnion Gap14.2Zpoghdf01707-335 mg/dLBlood Urea Rwbdaago09.07.0-18.0 mg/dLCreatinine1.900.55-1.02 mg/dLEstimated GFR ( Tizkzpc91>=60 mL/min/1.73m 2Estimated GFR (Non- Ame26>=60 mL/min/1.73m 2 BUN Creatinine Ratio28.1Cqtcrfd1.18.5-10.1 mg/dLBilirubin Total1.10.2-1.0 mg/dL Aspartate Amino Uveglhwchky1769-26 U/LAlanine Kafgbevuaiwwzopt0227-66 U/L Alkaline Jcgnetvxpvs77919-524 U/LTotal Protein5.96.4-8.2 g/dLAlbumin Level1.6 3.4-5.0 g/dLGlobulin4.3Albumin Globulin Ratio0.4Performing Lab:see noteML - [facility] LBLACTATE or LACTIC ACID Reviewed date:11/15/2024 06:06:55 PM Interpretation: Performing Lab: Notes/Report: [facility] ,Lactate/Lactic Acid6.20.4-2.0 mmol/LRESULTS CALLED TO ricardo mclain rn Performing Lab:see noteML - [facility] LBCBC AUTO DIFF Reviewed date:11/15/2024 06:06:55 PM Interpretation: Performing Lab: Notes/Report: [facility] ,White Blood Count10.64.0-11.0 10 3/uLRed Blood Count3.504.20-5.40 10 6/uL Hemoglobin8.512.0-16.0 g/kNCqumwmfwcp50.436.0-48.0 %Mean Corpuscular Bgccco31.1 81.0-99.0 fLMean Corpuscular Emkhdbarvk79.326.7-34.0 pgMean Corpuscular HGB Conc 29.929.9-35.2 g/dLRed Cell Distribution Width20.511.0-15.0 %Platelet Wtqlr476 150-450 10 3/uLMean Platelet Cjssht01.09.5-13.5 fLPerforming Lab:see noteML - [facility] LBCBC AUTO DIFF Reviewed date:04/10/2025 12:57:01 PM Interpretation: Performing Lab: Notes/Report: [facility] ,White Blood Count4.84.0-11.0 10 3/uLRed Blood Count3.304.20-5.40 10 6/uL1+ HYPO Hemoglobin7.812.0-16.0 g/sCLfiygskrue58.636.0-48.0 %Mean Corpuscular Whzytt02.6 81.0-99.0 fLMean Corpuscular Jfknbzxcpb75.626.7-34.0 pgMean Corpuscular HGB Conc 28.329.9-35.2 g/dLRed Cell Distribution Width20.511.0-15.0 %Platelet Ytgva781 150-450 10 3/uLMean Platelet Iagwbr75.69.5-13.5 fLNeutrophils Percent Auto57.2 43.0-75.0 %Lymphocytes Percent Auto27.720.5-60.0 %Monocytes Percent Auto8.41.7- 12.0 %Eosinophils Percent Auto5.70.9-7.0 %Basophils Percent Auto0.80.2-2.0 % Immature Granulocytes Pct Auto0.20.0-0.5 %Neutrophils Absolute Auto2.71.4-6.5 10 3/uLLymphocytes Absolute Auto1.31.2-3.8 10 3/uLMonocytes Absolute Auto0.40.3- 0.8 10 3/uLEosinophils Absolute Auto0.30.0-0.7 10 3/uLBasophils Absolute Auto0.0 0.0-0.1 10 3/uLImmature Granulocytes Abs Auto0.010.00-0.03 10 3/uLPerforming Lab:see noteML - [facility] LBCBC AUTO DIFF Reviewed date:04/17/2025 07:51:39 PM Interpretation: Performing Lab: Notes/Report: [facility] ,White Blood Count6.74.0-11.0 10 3/uLRed Blood Count3.424.20-5.40 10 6/uL 2+ ANISOCYTOSIS 1+ HYPOCHROMIA Hemoglobin8.112.0-16.0 g/bOXdtuvlfgsj02.336.0-48.0 %Mean Corpuscular Hgovib46.7 81.0-99.0 fLMean Corpuscular Cyoyolvyox22.726.7-34.0 pgMean Corpuscular HGB Conc 28.629.9-35.2 g/dLRed Cell Distribution Width19.711.0-15.0 %Platelet Yoexx598 150-450 10 3/uLMean Platelet Yccgqy12.29.5-13.5 fLNeutrophils Percent Auto72.5 43.0-75.0 %Lymphocytes Percent Auto12.820.5-60.0 %Monocytes Percent Auto9.71.7- 12.0 %Eosinophils Percent Auto4.50.9-7.0 %Basophils Percent Auto0.40.2-2.0 % Immature Granulocytes Pct Auto0.10.0-0.5 %Neutrophils Absolute Auto4.91.4-6.5 10 3/uLLymphocytes Absolute Auto0.91.2-3.8 10 3/uLMonocytes Absolute Auto0.70.3- 0.8 10 3/uLEosinophils Absolute Auto0.30.0-0.7 10 3/uLBasophils Absolute Auto0.0 0.0-0.1 10 3/uLImmature Granulocytes Abs Auto0.010.00-0.03 10 3/uLPerforming Lab:see noteML - [facility] LBBNP Reviewed date:11/15/2024 06:06:55 PM Interpretation: Performing Lab: Notes/Report: [facility] ,NT Pro B Type Natriuretic Fpdb1750.0<=900.0 pg/mLRESULTS CALLED TO DR. ABARCA Performing Lab:see noteML - [facility] LBBLOOD CULTURE ID PANEL Reviewed date:11/15/2024 06:06:55 PM Interpretation: Performing Lab: Notes/Report: [facility] ,CTX-MNOT APPLICABLENOT DETECTEIMPNOT APPLICABLENOT DETECTEKPCNOT APPLICABLENOT DETECTEmcr-1NOT APPLICABLENOT DETECTEmecA/CNOT APPLICABLENOT DETECTEmecA/C and MREJ (MRSA)NOT APPLICABLENOT DETECTENDMNOT APPLICABLENOT DNGUZXYKGK-28-bgzuNMZ APPLICABLENOT DETECTEvanA/BNOT APPLICABLENOT DETECTEVIMNOT APPLICABLENOT DETECTE SourceBLOODEnterococcus faecalisNOT DETECTEDNOT DETECTEEnterococcus faeciumNOT DETECTEDNOT DETECTEListeria monocytogenesNOT DETECTEDNOT DETECTEStaphylococcus spp.DETECTEDNOT DETECTERESULTS CALLED TO MADDIE SHANKAR RN AT 1002Staphylococcus aureusDETECTEDNOT DETECTERESULTS CALLED TO MADDIE SHANKAR RN AT 1002 Staphylococcus epidermidisNOT DETECTEDNOT DETECTEStaphylococcus lugdunensisNOT DETECTEDNOT DETECTEStreptococcus spp.NOT DETECTEDNOT DETECTEStreptococcus agalactiaeNOT DETECTEDNOT DETECTEStreptococcus pneumoniaeNOT DETECTEDNOT DETECTE Streptococcus pyogenesNOT DETECTEDNOT DETECTEA. calcoaceticus-baumannii CpxNOT DETECTEDNOT DETECTEBacteroides fragilisNOT DETECTEDNOT DETECTEEnterobacterales NOT DETECTEDNOT DETECTEEnterobacter cloacae complexNOT DETECTEDNOT DETECTE Escherichia coliNOT DETECTEDNOT DETECTEKlebsiella aerogenesNOT DETECTEDNOT DETECTEKlebsiella oxytocaNOT DETECTEDNOT DETECTEKlebsiella pneumoniae groupNOT DETECTEDNOT DETECTEProteus spp.NOT DETECTEDNOT DETECTESalmonella spp.NOT DETECTEDNOT DETECTESerratia marcescensNOT DETECTEDNOT DETECTEHaemophilus influenzaeNOT DETECTEDNOT DETECTENeisseria meningitidisNOT DETECTEDNOT DETECTE Pseudomonas aeruginosaNOT DETECTEDNOT DETECTEStenotrophomonas maltophiliaNOT DETECTEDNOT DETECTECandida albicansNOT DETECTEDNOT DETECTECandida aurisNOT DETECTEDNOT DETECTECandida glabrataNOT DETECTEDNOT DETECTECandida kruseiNOT DETECTEDNOT DETECTECandida parapsilosisNOT DETECTEDNOT DETECTECandida tropicalis NOT DETECTEDNOT DETECTECryptococcus neoformans/gattiiNOT DETECTEDNOT DETECTE Performing Lab:see noteML - [facility] LBCBC AUTO DIFF Reviewed date:04/30/2025 04:34:17 PM Interpretation: Performing Lab: Notes/Report: [facility] ,White Blood Count6.54.0-11.0 10 3/uLRed Blood Count3.144.20-5.40 10 6/uL Hemoglobin7.312.0-16.0 g/pEHbsfmsvqda40.936.0-48.0 %Mean Corpuscular Zublzc91.5 81.0-99.0 fLMean Corpuscular Ynyrqnrwdo50.226.7-34.0 pgMean Corpuscular HGB Conc 28.229.9-35.2 g/dLRed Cell Distribution Width19.011.0-15.0 %Platelet Onrrm192 150-450 10 3/uLMean Platelet Dspnym05.09.5-13.5 fLNeutrophils Percent Auto67.0 43.0-75.0 %Lymphocytes Percent Auto21.820.5-60.0 %Monocytes Percent Auto6.61.7- 12.0 %Eosinophils Percent Auto3.70.9-7.0 %Basophils Percent Auto0.60.2-2.0 % Immature Granulocytes Pct Auto0.30.0-0.5 %Neutrophils Absolute Auto4.31.4-6.5 10 3/uLLymphocytes Absolute Auto1.41.2-3.8 10 3/uLMonocytes Absolute Auto0.40.3- 0.8 10 3/uLEosinophils Absolute Auto0.20.0-0.7 10 3/uLBasophils Absolute Auto0.0 0.0-0.1 10 3/uLImmature Granulocytes Abs Auto0.020.00-0.03 10 3/uLPerforming Lab:see noteML - [facility] LBECG 12 lead Reviewed date:11/06/2024 12:23:59 PM Interpretation: Performing Lab: Notes/Report: Source Facility: [facility]-[address] [place] [address] [place] [address] Electrocardiograph Report Signed Patient: CONNIE BRIAN MR#: [id number] : 1955 Acct:[id number] Age/Sex: 68 / F ADM Date: 11/02/24 Loc: ER Attending Dr: Ordering Physician: Sadie Cortes Date of Service: 11/02/24 Procedure(s): ECG 12 lead Accession Number(s): [id number] cc: [facility] Test Date: 2024-11-02 Pat Name: CONNIE BRIAN Department: Room: - Gender: Female Cook Mayonnaise: : 1955 Requested By: HARRY VALENCIA Order Number: [id number] Reading MD: HARRY VALENCIA Measurements Intervals [place] Rate: 103 P: -35025 CO: -31499 QRS: 30 QRSD: 70 T: 92 QT: 306 QTc: 365 Interpretive Statements 1250 Atrial flutter 4068 Nonspecific Twave abnormality 8102 Low QRS voltage in chest leads 9140 abnormal rhythm ECG Compared to ECG 05/25/2023 11:42:28 Sinus rhythm no longer present Electronically Signed On 11-06-2024 6:52:36 EST by HARRY VALENCIA Dictated By: Harry Valencia M.D. Signed By: 11/06/24 0652 DD/ 9 TD/TT: Ship Painter Helper:XR HAND LT MIN 3V Reviewed date:11/04/2024 08:21:50 PM Interpretation: Performing Lab: Notes/Report: Source Facility: [place] [address] XRay Report Signed Patient: CONNIE BRIAN MR#: [id number] : 1955 Acct:[id number] Age/Sex: 68 / F ADM Date: 11/02/24 Loc: ER Attending Dr: Ordering Physician: Sadie Cortes Date of Service: 11/02/24 Procedure(s): XR hand LT min 3V Accession Number(s): [id number] cc: Harry Valencia M.D.; Sadie Cortes [place] [address] Patient Name: CONNIE BRIAN MRN: [id number] date: 1955 Sex: F Assigned Patient Location: ER Current Patient Location: ER Accession/Order Number: [id number] Exam Date: 11/02/2024 09:45 Report Date: 11/02/2024 [...] Signed By: 11/02/24 1023 DD/ 1020 TD/TT: Ship Painter Helper:CBC AUTO DIFF Reviewed date:11/04/2024 08:21:50 PM Interpretation: Performing Lab: Notes/Report: [facility] ,White Blood Count7.04.0-11.0 10 3/uLRed Blood Count4.674.20-5.40 10 6/uL Phqhggfoeg90.012.0-16.0 g/rVUbtcpiryum87.636.0-48.0 %Mean Corpuscular Edsrkx06.4 81.0-99.0 fLMean Corpuscular Hylxcegbqv43.626.7-34.0 pgMean Corpuscular HGB Conc 30.129.9-35.2 g/dLRed Cell Distribution Width20.111.0-15.0 %Platelet Jgmca862 150-450 10 3/uLMean Platelet Fisqxy48.99.5-13.5 fLNeutrophils Percent Auto66.1 43.0-75.0 %Lymphocytes Percent Auto22.620.5-60.0 %Monocytes Percent Auto8.51.7- 12.0 %Eosinophils Percent Auto1.90.9-7.0 %Basophils Percent Auto0.60.2-2.0 % Immature Granulocytes Pct Auto0.30.0-0.5 %Neutrophils Absolute Auto4.61.4-6.5 10 3/uLLymphocytes Absolute Auto1.61.2-3.8 10 3/uLMonocytes Absolute Auto0.60.3- 0.8 10 3/uLEosinophils Absolute Auto0.10.0-0.7 10 3/uLBasophils Absolute Auto0.0 0.0-0.1 10 3/uLImmature Granulocytes Abs Auto0.020.00-0.03 10 3/uLPerforming Lab:see noteML - [facility] LBCBC AUTO DIFF Reviewed date:07/11/2025 04:38:27 PM Interpretation: Performing Lab: Notes/Report: [facility] ,White Blood Count4.74.0-11.0 10 3/uLRed Blood Count2.814.20-5.40 10 6/uL Hemoglobin6.312.0-16.0 g/dLRESULTS CALLED TO BRITNI BURRYGZRWWUwrvklfqpf21.136.0-48.0 %RESULTS CALLED TO BRITNI Caceres Corpuscular Qvkppa61.681.0-99.0 fLMean Corpuscular Mkfcrcxqze89.426.7-34.0 pgMean Corpuscular HGB Conc28.529.9-35.2 g/dLRed Cell Distribution Width17.511.0-15.0 %Platelet Raqqo445655-889 10 3/uL Mean Platelet Nzzkky57.49.5-13.5 fLNeutrophils Percent Auto52.543.0-75.0 % Lymphocytes Percent Auto35.920.5-60.0 %Monocytes Percent Auto7.61.7-12.0 % Eosinophils Percent Auto3.00.9-7.0 %Basophils Percent Auto0.60.2-2.0 %Immature Granulocytes Pct Auto0.40.0-0.5 %Neutrophils Absolute Auto2.51.4-6.5 10 3/uL Lymphocytes Absolute Auto1.71.2-3.8 10 3/uLMonocytes Absolute Auto0.40.3-0.8 10 3/uLEosinophils Absolute Auto0.10.0-0.7 10 3/uLBasophils Absolute Auto0.00.0-0.1 10 3/uLImmature Granulocytes Abs Auto0.020.00-0.03 10 3/uLPerforming Lab:see noteML - [facility] LBFERRITIN Reviewed date:07/11/2025 04:38:27 PM Interpretation: Performing Lab: Notes/Report: [facility] ,Ferritin4.08.0-252.0 ng/mLPerforming Lab:see noteML - [facility] LB IRON AND TIBC Reviewed date:07/11/2025 04:38:27 PM Interpretation: Performing Lab: Notes/Report: [facility] ,Iron17.050.0-170.0 ug/dLTotal Iron Binding Qgjcxdsq631.0250.0-450.0 ug/dL Percent Iron Saturation3.7Performing Lab:see note - [facility] LB PROF 14(COMP METB) Reviewed date:07/11/2025 04:38:27 PM Interpretation: Performing Lab: Notes/Report: [facility] ,Bcbyeh653372-704 mmol/LPotassium4.43.5-5.1 mmol/TYtezrsrc26908-901 mmol/LCarbon Ncuaknn58.021.0-32.0 mmol/LAnion Gap16.7Pcehxsc79234-509 mg/dLBlood Urea Gxufcgsp50.07.0-18.0 mg/dLCreatinine1.570.55-1.02 mg/dLEstimated GFR ( Zxgfefj13>=60 mL/min/1.73m 2Estimated GFR (Non- Ame33>=60 mL/min/1.73m 2 BUN Creatinine Ratio25.4Gbbqnav3.48.5-10.1 mg/dLBilirubin Total0.80.2-1.0 mg/dL Aspartate Amino Trlcyshppmr1825-35 U/LAlanine Qqqwppsjczfbijto2726-76 U/L Alkaline Pdmwcmxkvly83359-446 U/LTotal Protein6.86.4-8.2 g/dLAlbumin Level2.9 3.4-5.0 g/dLGlobulin3.9Albumin Globulin Ratio0.7Performing Lab:see note - [facility] LBPTT Reviewed date:07/11/2025 05:21:57 PM Interpretation: Performing Lab: Notes/Report: [facility] ,Partial Thromboplastin Time26.522.3-36.2 secPerforming Lab:see note - [facility] LBProthrombin Time INR Reviewed date:07/11/2025 05:21:57 PM Interpretation: Performing Lab: Notes/Report: [facility] ,Prothrombin Time10.99.0-11.6 secINR1.03 DESIRED INR: 2.0-3.0 CONDITIONS NOT LISTED BELOW 2.5-3.5 FOR PROSTHETIC HEART VALVE REPLACEMENT 2.5-3.5 RECURRENT THROMBOSIS Performing Lab:see noteML - [facility] LBCBC AUTO DIFF Reviewed date:10/07/2024 02:07:24 PM Interpretation: Performing Lab: Notes/Report: [facility] ,White Blood Count5.74.0-11.0 10 3/uLRed Blood Count4.894.20-5.40 10 6/uL 1+ ANSIOCYTOSIS 1+ HYPOCHROMIA Fowyzblaxk96.112.0-16.0 g/uCHdrsanqdxf09.636.0-48.0 %Mean Corpuscular Fpgbck80.9 81.0-99.0 fLMean Corpuscular Mfsfgeugqu89.726.7-34.0 pgMean Corpuscular HGB Conc 28.829.9-35.2 g/dLRed Cell Distribution Width18.711.0-15.0 %Platelet Sizki806 150-450 10 3/uLMean Platelet Hwmzmh36.79.5-13.5 fLNeutrophils Percent Auto57.7 43.0-75.0 %Lymphocytes Percent Auto28.920.5-60.0 %Monocytes Percent Auto8.11.7- 12.0 %Eosinophils Percent Auto4.40.9-7.0 %Basophils Percent Auto0.70.2-2.0 % Immature Granulocytes Pct Auto0.20.0-0.5 %Neutrophils Absolute Auto3.31.4-6.5 10 3/uLLymphocytes Absolute Auto1.61.2-3.8 10 3/uLMonocytes Absolute Auto0.50.3- 0.8 10 3/uLEosinophils Absolute Auto0.30.0-0.7 10 3/uLBasophils Absolute Auto0.0 0.0-0.1 10 3/uLImmature Granulocytes Abs Auto0.010.00-0.03 10 3/uLPerforming Lab:see noteML - [facility] LBOccult Blood* Reviewed date:07/11/2025 04:38:27 PM Interpretation: Performing Lab: Notes/Report: [facility] ,Occult BloodNegativePerforming Lab:see noteML - [facility] LBECG 12 lead Reviewed date:07/14/2025 11:17:02 AM Interpretation: Performing Lab: Notes/Report: Source Facility: [facility]-[address] [place] [address] [place] [address] Electrocardiograph Report Signed Patient: CONNIE BRIAN MR#: [id number] : 1955 Acct:[id number] Age/Sex: 69 / F ADM Date: 07/11/25 Loc: MS 220-[address]: Joan Hoang M.D. Ordering Physician: Sadie Cortes Date of Service: 07/11/25 Procedure(s): ECG 12 lead Accession Number(s): [id number] cc: [facility] Test Date: 2025-07-11 Pat Name: CONNIE BRIAN Department: Room: - Gender: Female Cook Mayonnaise: : 1955 Requested By: 1854 Order Number: [id number] Reading MD: MONIQUE BLAIR Measurements Intervals [place] Rate: 67 P: 90 CO: 180 QRS: 27 QRSD: 72 T: 90 QT: 344 QTc: 360 Interpretive Statements 1100 Sinus rhythm 4068 Nonspecific Twave abnormality 8102 Low QRS voltage in chest leads 9130 borderline ECG Compared to ECG 03/05/2025 14:53:58 Low QRS voltage now present Electronically Signed On 07-12-2025 17:51:38 EDT by MONIQUE BLAIR Dictated By: Monique Blair M.D. Signed By: 07/12/25175007/12/25 175 DD/ 1547 TD/TT: Ship Painter Helper:PROF Lopez(COMP METB) Reviewed date:07/11/2025 04:38:27 PM Interpretation: Performing Lab: Notes/Report: [facility] ,Xwnnrc736811-445 mmol/LPotassium4.53.5-5.1 mmol/FIdtuktlf26481-255 mmol/LCarbon Mxscpao45.921.0-32.0 mmol/LAnion Gap14.4Mjknpon62303-039 mg/dLBlood Urea Kzcdlnrr77.07.0-18.0 mg/dLCreatinine1.600.55-1.02 mg/dLEstimated GFR ( Gqpsoiy54>=60 mL/min/1.73m 2Estimated GFR (Non- Ame32>=60 mL/min/1.73m 2 BUN Creatinine Ratio25.0Tqipwee5.28.5-10.1 mg/dLBilirubin Total0.80.2-1.0 mg/dL Aspartate Amino Anmrrcxrkxb3052-92 U/LAlanine Yfemayuhusktfhff6625-36 U/L Alkaline Zofozetelmg38891-060 U/LTotal Protein6.96.4-8.2 g/dLAlbumin Level2.9 3.4-5.0 g/dLGlobulin4.0Albumin Globulin Ratio0.7Performing Lab:see noteML - [facility] LBCBC AUTO DIFF Reviewed date:07/11/2025 04:38:27 PM Interpretation: Performing Lab: Notes/Report: [facility] ,White Blood Count5.14.0-11.0 10 3/uLRed Blood Count2.844.20-5.40 10 6/uL Hemoglobin6.312.0-16.0 g/dLRESULTS CALLED TO DR. CORTESKATKWxokdmujoi16.336.0-48.0 % RESULTS CALLED TO DR. Cabral Corpuscular Ucsdbm37.581.0-99.0 fLMean Corpuscular Pkrgckwnmi64.226.7-34.0 pgMean Corpuscular HGB Conc28.329.9-35.2 g/dLRed Cell Distribution Width17.411.0-15.0 %Platelet Ocmyt578106-128 10 3/uL Mean Platelet Gwolkb16.79.5-13.5 fLNeutrophils Percent Auto59.643.0-75.0 % Lymphocytes Percent Auto29.720.5-60.0 %Monocytes Percent Auto7.01.7-12.0 % Eosinophils Percent Auto2.90.9-7.0 %Basophils Percent Auto0.60.2-2.0 %Immature Granulocytes Pct Auto0.20.0-0.5 %Neutrophils Absolute Auto3.11.4-6.5 10 3/uL Lymphocytes Absolute Auto1.51.2-3.8 10 3/uLMonocytes Absolute Auto0.40.3-0.8 10 3/uLEosinophils Absolute Auto0.20.0-0.7 10 3/uLBasophils Absolute Auto0.00.0-0.1 10 3/uLImmature Granulocytes Abs Auto0.010.00-0.03 10 3/uLPerforming Lab:see note - [facility] LBVitamin B12 Reviewed date:07/14/2025 11:17:02 AM Interpretation: Performing Lab: Notes/Report: [facility] ,Vitamin V24892867-6110 pg/mL Performed at: [facility] Lab[address] [id number] Associate Partner: Dennis Garcias PhD, Phone: [phone] Performing Lab:[facility]MULT[facility] LBGLYCOHEMOGLOBIN A1C Reviewed date:07/14/2025 11:17:02 AM Interpretation: Performing Lab: Notes/Report: Comment Add to an already drawn sample [facility] ,Glycohemoglobin A1C8.74.5-6.2 % ADA RECOMMENDED LIMIT 4.0 - 6.0 ADA THERAPEUTIC TARGET < 7.0 ACTION SUGGESTED > 7.0 Estimated Average Tuedaml858Cwfzdfhmez Lab:see note - [facility] LB HEMOGRAM AND PLATEL Reviewed date:07/14/2025 11:17:02 AM Interpretation: Performing Lab: Notes/Report: [facility] ,Hemoglobin8.112.0-16.0 g/yCPdwdbbatos66.036.0-48.0 %Performing Lab:see note - [facility] LBMAGNESIUM Reviewed date:07/14/2025 11:17:02 AM Interpretation: Performing Lab: Notes/Report: [facility] ,Magnesium1.81.8-2.4 mg/dLPerforming Lab:see note - [facility] LB PHOSPHORUS Reviewed date:07/14/2025 11:17:02 AM Interpretation: Performing Lab: Notes/Report: [facility] ,Phosphorus3.62.6-4.7 mg/dLPerforming Lab:[facility] PROF 14(COMP METB) Reviewed date:07/14/2025 11:17:02 AM Interpretation: Performing Lab: Notes/Report: [facility] ,Tsqmtv916821-945 mmol/LPotassium3.93.5-5.1 mmol/QTtcggebp90262-432 mmol/LCarbon Fpsjohp24.121.0-32.0 mmol/LAnion Gap12.9Mazqwes49110-069 mg/dLBlood Urea Xouiytlz69.07.0-18.0 mg/dLCreatinine0.950.55-1.02 mg/dLEstimated GFR ( Madiha>60>=60 mL/min/1.73m 2Estimated GFR (Non- Ame58>=60 mL/min/1.73m 2 BUN Creatinine Ratio31.1Nnqxhwf7.68.5-10.1 mg/dLBilirubin Total1.50.2-1.0 mg/dL Aspartate Amino Zcfljbhhzpn8828-54 U/LAlanine Escjtrtjgmvbfqre2568-58 U/L Alkaline Jtkrfornqee7034-004 U/LTotal Protein6.16.4-8.2 g/dLAlbumin Level2.53.4- 5.0 g/dLGlobulin3.6Albumin Globulin Ratio0.7Performing Lab:see noteML - [facility] LBCBC no Diff (Hemogram) Reviewed date:07/14/2025 11:17:02 AM Interpretation: Performing Lab: Notes/Report: [facility] ,White Blood Count3.94.0-11.0 10 3/uLRed Blood Count3.314.20-5.40 10 6/uL Hemoglobin7.712.0-16.0 g/bSQwiwigulrv50.036.0-48.0 %Mean Corpuscular Hydrzb45.5 81.0-99.0 fLMean Corpuscular Ujhwgnrspc51.326.7-34.0 pgMean Corpuscular HGB Conc 29.629.9-35.2 g/dLRed Cell Distribution Width16.711.0-15.0 %Platelet Vhkew388 150-450 10 3/uLMean Platelet Hlcaiz83.59.5-13.5 fLPerforming Lab:see noteML - [facility] LBAcute Hepatitis Reviewed date:07/16/2025 08:20:52 PM Interpretation: Performing Lab: Notes/Report: [facility] ,Hep A Ab, IgMNegativeNegative A negative anti-HAV IgM result suggests no recent or current HAV infection. HBsAg ScreenNegativeNegativeHep B Core Ab, IgMNegativeNegativeHCV AbNon Reactive Non ReactiveInterpretation:Comment. Not infected with HCV unless early or acute infection is suspected (which may be delayed in an immunocompromised individual), or other evidence exists to indicate HCV infection. Performed at: - [facility] [address] [id number] Associate Partner: Dennis Garcias PhD, Phone: [phone] Performing Lab:see noteLC - [facility] LBUA Micro, reflex to culture Reviewed date:07/14/2025 11:17:02 AM Interpretation: Performing Lab: Notes/Report: [facility] ,Color UrineLT. YELLOWYELLOWClarity UrineSL CLOUDYCLEARSpecific [place] Urine <=1.0051.005-1.025pH Urine7.05.0-9.0Protein UrineNEGATIVENEG/TRACE mg/dLGlucose Urine RV736AVNAZOSU mg/dLBilirubin UrineNEGATIVENEGATIVEKetones UrineNEGATIVE NEGATIVE mg/dLBlood UrineNEGATIVENEGATIVENitrite UrineNEGATIVENEGATIVE Urobilinogen Urine1.00.2-1.0 EU/dLLeukocyte Esterase UrineNEGATIVENEGATIVEWBC Urine2-5NONE SEEN #/HPFRBC UrineNONE SEEN0-2 #/HPFBacteria UrineLARGENONE SEEN #/HPFMucus UrineNONE SEENNONE SEENSquamous Epithelial Cell UrineNONE SEEN NONE/RARE #/LPFCrystals Seen?None SeenNone Seen #/HPFCast Seen?NONE SEENNONE SEEN #/LPFUrine Culture IndicatedYES-FRMCPerforming Lab:see noteML - [facility] LBUS right upper quadrant Reviewed date:08/07/2025 01:03:36 PM Interpretation: Performing Lab: Notes/Report: Source Facility: [facility]-[address] [place] [address] [place] [address] Ultrasound Report Signed Patient: CONNIE BRIAN MR#: [id number] : 1955 Acct:[id number] Age/Sex: 69 / F ADM Date: 08/07/25 Loc: US Attending Dr: Cindy Stern M.D. Ordering Physician: Cindy Stern M.D. Date of Service: 08/07/25 Procedure(s): US right upper quadrant Accession Number(s): [id number] cc: Harry Valencia M.D.; Cindy Stern M.D. [place] [id number] Patient Name: CONNIE BRIAN MRN: [id number] date: 1955 Sex: F Assigned Patient Location: US Current Patient Location: US Accession/Order Number: [id number] Exam Date: 08/07/2025 08:55 Report Date: 08/07/2025 09:43 At the request of: LATONYASTAFF PHYSICIAN MARRERO Procedure: US right upper quadrant LIMITED RIGHT UPPER QUADRANT ABDOMINAL ULTRASOUND CLINICAL HISTORY: Anemia D64.9. History of cirrhosis and cholecystectomy COMPARISON: 02/01/2025 The gallbladder is surgically absent. No intrahepatic biliary dilatation is evident. The common duct is mildly prominent measuring 6 - 7 mm. There are no intraluminal filling defects within the segment that is imaged. This may relate to previous surgery. The liver has a nodular contour and coarsened echotexture. No focal intrahepatic masses are seen. There is appropriate hepatopetal flow within the main portal vein. The pancreas shows no significant sonographic abnormality. Evaluation of the right kidney reveals no hydronephrosis or fluid within Painter's pouch. US/US right upper quadrant IMPRESSION: CIRRHOTIC LIVER. NO ACUTE FINDINGS. Impression dictated by: Lola Contreras M.D. 08/07/2025 9:43 AM Dictation Location: [place] [address] Electronically authenticated by: [id number] Y Date: 08/07/2025 09:43 Dictated By: Lola Contreras M.D. Signed By: 08/07/2546 DD/ 2 TD/TT: Ship Painter Helper:JORGE ALBERTO Galeas date:03/05/2025 04:11:43 PM Interpretation: Performing Lab: Notes/Report: [facility] ,Iron15.050.0-170.0 ug/dLPerforming Lab:see noteML - [facility] LB FERRITIN Reviewed date:03/05/2025 04:11:43 PM Interpretation: Performing Lab: Notes/Report: [facility] ,Ferritin7.08.0-252.0 ng/mLPerforming Lab:see noteML - [facility] LB CBC AUTO DIFF Reviewed date:03/05/2025 01:33:59 PM Interpretation: Performing Lab: Notes/Report: [facility] ,White Blood Count3.84.0-11.0 10 3/uLRed Blood Count2.584.20-5.40 10 6/uL Hemoglobin5.612.0-16.0 g/dLRESULTS CALLED TO RAN MANRIQUEZ LPNHematocrit20.6 36.0-48.0 %RESULTS CALLED TO RAN MANRIQUEZ LPNMean Corpuscular Ezxpne81.881.0- 99.0 fLMean Corpuscular Cnpxpamwxs34.726.7-34.0 pgHYPOCHROMASIA 2+Mean Corpuscular HGB Conc27.229.9-35.2 g/dLRed Cell Distribution Width17.711.0-15.0 % Platelet Bcblx793201-952 10 3/uLMean Platelet Tmvwqr28.69.5-13.5 fLNeutrophils Percent Auto50.543.0-75.0 %Lymphocytes Percent Auto34.920.5-60.0 %Monocytes Percent Auto11.21.7-12.0 %Eosinophils Percent Auto3.10.9-7.0 %Basophils Percent Auto0.30.2-2.0 %Immature Granulocytes Pct Auto0.00.0-0.5 %Neutrophils Absolute Auto1.91.4-6.5 10 3/uLLymphocytes Absolute Auto1.31.2-3.8 10 3/uLMonocytes Absolute Auto0.40.3-0.8 10 3/uLEosinophils Absolute Auto0.10.0-0.7 10 3/uL Basophils Absolute Auto0.00.0-0.1 10 3/uLImmature Granulocytes Abs Auto0.000.00- 0.03 10 3/uLPerforming Lab:see noteML - [facility] LBTroponin I High Sensitivity Reviewed date:12/30/2024 11:28:24 AM Interpretation: Performing Lab: Notes/Report: [facility] ,Troponin I High Mkczlrbjzaf69.34.0-51.3 pg/mL CUT-OFF POINTS HAVE BEEN ESTABLISHED BASED ON THE FOURTH UNIVERSAL DEFINITION OF MYOCARDIAL INFARCTION. THE UPPER REFERENCE LIMIT (URL) OF TROPONIN, DEFINED THE 99TH PERCENTILE OF cTnI DISTRIBUTION IN A REFERENCE POPULATION, HAS BEEN CONFIRMED THE DECISION THRESHOLD FOR OR DIAGNOSIS. 99TH PERCENTILE = 51.4 PG/ML NOTE: HIGH-SENSITIVITY TROPONIN ASSAY IS NOT INTENDED TO BE USED IN ISOLATION BUT SHOULD BE INTERPRETED IN CONJUNCTION WITH OTHER DIAGNOSTIC AND CLINICAL INFORMATION. Performing Lab:see noteML - [facility] LBType and Screen Reviewed date:12/30/2024 05:22:56 PM Interpretation: Performing Lab: Notes/Report: [facility] ,Blood TypeO PositiveAntibody ScreenNEGATIVEPacked Red Blood Cells Reviewed date:12/30/2024 05:22:56 PM Interpretation: Performing Lab: Notes/Report:Packed Red Blood Cells [id number] ON RC TRANSFUSED 12/28/24 1318 [id number] ON RC TRANSFUSED 12/28/24 1721 [id number] OP RC TRANSFUSED 12/30/24 1045 [id number] OP RC TRANSFUSED 12/29/24 1103 [id number] OP RC TRANSFUSED 12/29/24 1329 [id number] OP RC NOT AVAILABLE Prothrombin Time INR Reviewed date:12/30/2024 11:28:24 AM Interpretation: Performing Lab: Notes/Report: [facility] ,Prothrombin Time13.89.0-11.6 secINR1.34 DESIRED INR: 2.0-3.0 CONDITIONS NOT LISTED BELOW 2.5-3.5 FOR PROSTHETIC HEART VALVE REPLACEMENT 2.5-3.5 RECURRENT THROMBOSIS Performing Lab:see noteML - [facility] LBPTT Reviewed date:12/30/2024 11:28:24 AM Interpretation: Performing Lab: Notes/Report: [facility] ,Partial Thromboplastin Time33.922.3-36.2 secPerforming Lab:see noteML - [facility] LBPROF CHEM 8 (BAS METB) Reviewed date:12/30/2024 11:28:24 AM Interpretation: Performing Lab: Notes/Report: [facility] ,Jijzxh029204-146 mmol/LPotassium5.43.5-5.1 mmol/IIdadvewn70319-351 mmol/LCarbon Wfobiym18.021.0-32.0 mmol/LAnion Gap17.8Rhiolyu66248-249 mg/dLBlood Urea Yiimkdrn52.07.0-18.0 mg/dLCreatinine1.670.55-1.02 mg/dLEstimated GFR ( Sjppwlr04>=60 mL/min/1.73m 2Estimated GFR (Non- Ame31>=60 mL/min/1.73m 2 BUN Creatinine Ratio29.1Xfcvfdh3.58.5-10.1 mg/dLPerforming Lab:see noteML - [facility] LBMAGNESIUM Reviewed date:12/30/2024 11:28:24 AM Interpretation: Performing Lab: Notes/Report: [facility] ,Magnesium2.21.8-2.4 mg/dLPerforming Lab:see noteML - [facility] LB LIVER PROFILE Reviewed date:12/30/2024 11:28:24 AM Interpretation: Performing Lab: Notes/Report: [facility] ,Bilirubin Total1.10.2-1.0 mg/dLBilirubin Direct0.50.0-0.2 mg/dLAspartate Amino Abyttapgdjp8161-19 U/LAlanine Szwirqguszrcqjqg7027-35 U/LAlkaline Eoshmoaxlcp308 46-116 U/LTotal Protein6.86.4-8.2 g/dLAlbumin Level2.43.4-5.0 g/dLGlobulin4.4 Albumin Globulin Ratio0.5Performing Lab:see note - [facility] LB HEMOGRAM AND PLATEL Reviewed date:12/30/2024 11:28:24 AM Interpretation: Performing Lab: Notes/Report: [facility] ,Hemoglobin4.912.0-16.0 g/dLRESULTS CALLED TO DR. SALOMON AT 4478Lzzjyjgscb39.1 36.0-48.0 %RESULTS CALLED TO DR. SALOMON AT 1217Performing Lab:see noteML - [facility] LBCBC AUTO DIFF Reviewed date:12/30/2024 11:28:24 AM Interpretation: Performing Lab: Notes/Report: [facility] ,White Blood Count6.24.0-11.0 10 3/uLRed Blood Count2.374.20-5.40 10 6/uL 2+ ANISOCYTOSIS 2+ HYPOCHROMIA 1+ POLYCHROMIA Hemoglobin5.212.0-16.0 g/dLRESULTS CALLED TO ISAI CARRERA RN AT 1149 Ovmomcvcex90.336.0-48.0 %RESULTS CALLED TO ISAI CARRERA RN AT 1149Mean Corpuscular Wvomyg28.481.0-99.0 fLMean Corpuscular Afniycbotv16.926.7-34.0 pg Mean Corpuscular HGB Conc26.929.9-35.2 g/dLRed Cell Distribution Width19.111.0- 15.0 %Platelet Ooepg566005-727 10 3/uLMean Platelet Qrsoxf56.69.5-13.5 fL Neutrophils Percent Auto58.343.0-75.0 %Lymphocytes Percent Auto31.520.5-60.0 % Monocytes Percent Auto9.11.7-12.0 %Eosinophils Percent Auto0.30.9-7.0 %Basophils Percent Auto0.50.2-2.0 %Immature Granulocytes Pct Auto0.30.0-0.5 %Neutrophils Absolute Auto3.61.4-6.5 10 3/uLLymphocytes Absolute Auto1.91.2-3.8 10 3/uL Monocytes Absolute Auto0.60.3-0.8 10 3/uLEosinophils Absolute Auto0.00.0-0.7 10 3/uLBasophils Absolute Auto0.00.0-0.1 10 3/uLImmature Granulocytes Abs Auto0.02 0.00-0.03 10 3/uLPerforming Lab:see noteML - [facility] LBBNP Reviewed date:12/30/2024 11:28:24 AM Interpretation: Performing Lab: Notes/Report: [facility] ,NT Pro B Type Natriuretic Alhy328.0<=900.0 pg/mLPerforming Lab:see noteML - [facility] LBAMMONIA Reviewed date:12/30/2024 11:28:24 AM Interpretation: Performing Lab: Notes/Report: [facility] ,Xrlwwhv3717-60 umol/LPerforming Lab:see noteML - [facility] LBPROF 14(COMP METB) Reviewed date:11/19/2024 08:36:55 PM Interpretation: Performing Lab: Notes/Report: [facility] ,Asvotb329684-817 mmol/LPotassium3.83.5-5.1 mmol/NQjjnacqk29306-437 mmol/LCarbon Qxevbza65.821.0-32.0 mmol/LAnion Gap13.3Xkikpru3576-905 mg/dLBlood Urea Hkuxxlvd12.07.0-18.0 mg/dLCreatinine0.710.55-1.02 mg/dLEstimated GFR ( Madiha>60>=60 mL/min/1.73m 2Estimated GFR (Non- Ana Luisa>60>=60 mL/min/1.73m 2BUN Creatinine Ratio28.5Wzyixdw9.38.5-10.1 mg/dLBilirubin Total1.00.2-1.0 mg/dL Aspartate Amino Ocdzkhdjriy2292-99 U/LAlanine Ujczrbafydqfjshi1984-55 U/L Alkaline Zgiwnmbfwdo66600-249 U/LTotal Protein5.66.4-8.2 g/dLAlbumin Level1.3 3.4-5.0 g/dLGlobulin4.3Albumin Globulin Ratio0.3Performing Lab:see noteML - [facility] LBDIGOXIN Reviewed date:11/19/2024 08:36:55 PM Interpretation: Performing Lab: Notes/Report: [facility] ,Digoxin0.90.9-2.0 ng/mLPerforming Lab:see note - [facility] LBCBC AUTO DIFF Reviewed date:11/19/2024 08:36:55 PM Interpretation: Performing Lab: Notes/Report: [facility] ,White Blood Count9.04.0-11.0 10 3/uLRed Blood Count3.654.20-5.40 10 6/uL Hemoglobin8.612.0-16.0 g/gKYlkiorzavq27.836.0-48.0 %Mean Corpuscular Lkybco74.6 81.0-99.0 fLMean Corpuscular Qfyrpppwbm87.626.7-34.0 pgMean Corpuscular HGB Conc 28.929.9-35.2 g/dLSlight Hypochromia PresentRed Cell Distribution Width21.211.0- 15.0 %Platelet [id number] 10 3/uLMean Platelet Qieorm05.79.5-13.5 fL Neutrophils Percent Auto69.343.0-75.0 %Lymphocytes Percent Auto21.020.5-60.0 % Monocytes Percent Auto6.61.7-12.0 %Eosinophils Percent Auto1.20.9-7.0 %Basophils Percent Auto0.10.2-2.0 %Immature Granulocytes Pct Auto1.80.0-0.5 %Neutrophils Absolute Auto6.21.4-6.5 10 3/uLLymphocytes Absolute Auto1.91.2-3.8 10 3/uL Monocytes Absolute Auto0.60.3-0.8 10 3/uLEosinophils Absolute Auto0.10.0-0.7 10 3/uLBasophils Absolute Auto0.00.0-0.1 10 3/uLImmature Granulocytes Abs Auto0.16 0.00-0.03 10 3/uLPerforming Lab:see noteML - [facility] LBUrine Culture, Routine Reviewed date:01/02/2025 09:58:31 PM Interpretation: Performing Lab: Notes/Report: [facility] ,Urine Culture, RoutineSee Below For Report Urine Culture, Routine Organism: Gram negative trang : O:ECMS Isolated O:GNR Isolated Organism: 1.1 Antibiotic Interpretation KAL Status Urine Culture, Routine*ABNORMAL* Urine Culture, Routine Organism: Gram negative trang : O:ECMS Isolated O:GNR Isolated Organism: 1.1 Antibiotic Interpretation KAL Status Urine Culture, RoutineGreater than 100,000 colony forming units per mL Urine Culture, Routine Organism: Gram negative trang : O:ECMS Isolated O:GNR Isolated Organism: 1.1 Antibiotic Interpretation KAL Status Urine Culture, RoutineGram negative trang Urine Culture, Routine Organism: Gram negative trang : O:ECMS Isolated O:GNR Isolated Organism: 1.1 Antibiotic Interpretation KAL Status Urine Culture, RoutineOrganism: Escherichia coli, : Urine Culture, Routine Organism: Gram negative trang : O:ECMS Isolated O:GNR Isolated Organism: 1.1 Antibiotic Interpretation KAL Status Urine Culture, Routine*ABNORMAL* Urine Culture, Routine Organism: Gram negative trang : O:ECMS Isolated O:GNR Isolated Organism: 1.1 Antibiotic Interpretation KAL Status Urine Culture, RoutineCefazolin with an KAL <=16 predicts susceptibility to Urine Culture, Routine Organism: Gram negative trang : O:ECMS Isolated O:GNR Isolated Organism: 1.1 Antibiotic Interpretation KAL Status Urine Culture, Routinethe oral agents cefaclor, cefdinir, cefpodoxime, Urine Culture, Routine Organism: Gram negative trang : O:ECMS Isolated O:GNR Isolated Organism: 1.1 Antibiotic Interpretation KAL Status Urine Culture, Routinecefprozil, cefuroxime, cephalexin, and loracarbef when Urine Culture, Routine Organism: Gram negative trang : O:ECMS Isolated O:GNR Isolated Organism: 1.1 Antibiotic Interpretation KAL Status Urine Culture, Routineused for therapy of uncomplicated urinary tract Urine Culture, Routine Organism: Gram negative trang : O:ECMS Isolated O:GNR Isolated Organism: 1.1 Antibiotic Interpretation KAL Status Urine Culture, Routineinfections due to E. coli, Klebsiella pneumoniae, and Urine Culture, Routine Organism: Gram negative trang : O:ECMS Isolated O:GNR Isolated Organism: 1.1 Antibiotic Interpretation KAL Status Urine Culture, RoutineProteus mirabilis. Urine Culture, Routine Organism: Gram negative trang : O:ECMS Isolated O:GNR Isolated Organism: 1.1 Antibiotic Interpretation KAL Status Urine Culture, RoutineGreater than 100,000 colony forming units per mL Urine Culture, Routine Organism: Gram negative trang : O:ECMS Isolated O:GNR Isolated Organism: 1.1 Antibiotic Interpretation KAL Status Urine Culture, RoutineEscherichia coli, Urine Culture, Routine Organism: Gram negative trang : O:ECMS Isolated O:GNR Isolated Organism: 1.1 Antibiotic Interpretation KAL Status Urine Culture, RoutineSee Below For Report Urine Culture, Routine Organism: Gram negative trang : O:ECMS Isolated O:GNR Isolated Organism: 1.1 Antibiotic Interpretation KAL Status Urine Culture, RoutineSee Below For Report Urine Culture, Routine Organism: Gram negative trang : O:ECMS Isolated O:GNR Isolated Organism: 1.1 Antibiotic Interpretation KAL Status Urine Culture, RoutinePerformed at: CB - [facility] [place] Urine Culture, Routine Organism: Gram negative trang : O:ECMS Isolated O:GNR Isolated Organism: 1.1 Antibiotic Interpretation KAL Status Urine Culture, [address] [place], [place] [id number] Urine Culture, Routine Organism: Gram negative trang : O:ECMS Isolated O:GNR Isolated Organism: 1.1 Antibiotic Interpretation KAL Status Urine Culture, RoutineLab Director: Dennis Garcias PhD, Phone: [phone] Urine Culture, Routine Organism: Gram negative trang : O:ECMS Isolated O:GNR Isolated Organism: 1.1 Antibiotic Interpretation KAL Status Urine Culture, RoutineSee Below For Report Urine Culture, Routine Organism: Gram negative trang : O:ECMS Isolated O:GNR Isolated Organism: 1.1 Antibiotic Interpretation KAL Status Urine Culture, RoutineAMOXICILLIN/CLAVULANIC ACID S F Urine Culture, Routine Organism: Gram negative trang : O:ECMS Isolated O:GNR Isolated Organism: 1.1 Antibiotic Interpretation KAL Status Urine Culture, RoutineAmpicillin R F Urine Culture, Routine Organism: Gram negative trang : O:ECMS Isolated O:GNR Isolated Organism: 1.1 Antibiotic Interpretation KAL Status Urine Culture, RoutineCefazolin S F Urine Culture, Routine Organism: Gram negative trang : O:ECMS Isolated O:GNR Isolated Organism: 1.1 Antibiotic Interpretation KAL Status Urine Culture, RoutineCefepime S F Urine Culture, Routine Organism: Gram negative trang : O:ECMS Isolated O:GNR Isolated Organism: 1.1 Antibiotic Interpretation KAL Status Urine Culture, RoutineCefoxitin S F Urine Culture, Routine Organism: Gram negative trang : O:ECMS Isolated O:GNR Isolated Organism: 1.1 Antibiotic Interpretation KAL Status Urine Culture, RoutineCefpodoxime S F Urine Culture, Routine Organism: Gram negative trang : O:ECMS Isolated O:GNR Isolated Organism: 1.1 Antibiotic Interpretation KAL Status Urine Culture, RoutineCeftriaxone S F Urine Culture, Routine Organism: Gram negative trang : O:ECMS Isolated O:GNR Isolated Organism: 1.1 Antibiotic Interpretation KAL Status Urine Culture, RoutineCiprofloxacin R F Urine Culture, Routine Organism: Gram negative trang : O:ECMS Isolated O:GNR Isolated Organism: 1.1 Antibiotic Interpretation KAL Status Urine Culture, RoutineErtapenem S F Urine Culture, Routine Organism: Gram negative trang : O:ECMS Isolated O:GNR Isolated Organism: 1.1 Antibiotic Interpretation KAL Status Urine Culture, RoutineGentamicin S F Urine Culture, Routine Organism: Gram negative trang : O:ECMS Isolated O:GNR Isolated Organism: 1.1 Antibiotic Interpretation KAL Status Urine Culture, RoutineLevofloxacin R F Urine Culture, Routine Organism: Gram negative trang : O:ECMS Isolated O:GNR Isolated Organism: 1.1 Antibiotic Interpretation KAL Status Urine Culture, RoutineMeropenem S F Urine Culture, Routine Organism: Gram negative trang : O:ECMS Isolated O:GNR Isolated Organism: 1.1 Antibiotic Interpretation KAL Status Urine Culture, RoutineNitrofurantoin S F Urine Culture, Routine Organism: Gram negative trang : O:ECMS Isolated O:GNR Isolated Organism: 1.1 Antibiotic Interpretation KAL Status Urine Culture, RoutineTetracycline S F Urine Culture, Routine Organism: Gram negative trang : O:ECMS Isolated O:GNR Isolated Organism: 1.1 Antibiotic Interpretation KAL Status Urine Culture, RoutineTobramycin S F Urine Culture, Routine Organism: Gram negative trang : O:ECMS Isolated O:GNR Isolated Organism: 1.1 Antibiotic Interpretation KAL Status Urine Culture, RoutineTrimethoprim/Sulfamethoxazole S F Urine Culture, Routine Organism: Gram negative trang : O:ECMS Isolated O:GNR Isolated Organism: 1.1 Antibiotic Interpretation KAL Status Urine Culture, RoutinePiperacillin/Tazobactam S F Urine Culture, Routine Organism: Gram negative trang : O:ECMS Isolated O:GNR Isolated Organism: 1.1 Antibiotic Interpretation KAL Status Performing Lab:see note LC - [facility] LB SEE REPORT - Remote Inpatient Coder Id information not found for 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 Ordering Physician: Vicente Salomon Date of Service: 12/28/24 Procedure(s): ECG 12 lead Accession Number(s): [id number] cc: [facility] Test Date: 2024-12-28 Pat Name: CONNIE BRIAN Department: Room: - Gender: Female Cook Mayonnaise: : 1955 Requested By: HARRY VALENCIA Order Number: [id number] Reading MD: HARRY VALENCIA Measurements Intervals [place] Rate: 54 P: -42877 CO: -81189 QRS: 56 QRSD: 80 T: 233 QT: 414 QTc: 401 Interpretive Statements Sinus bradycardia 4068 Nonspecific Twave abnormality 9140 abnormal rhythm ECG Compared to ECG 11/14/2024 21:48:10 Atrial fibrillation no longer present Electronically Signed On 12-30-2024 11:06:42 EST by HARRY VALENCIA Dictated By: Harry Valencia M.D. Signed By: 12/30/24 1106 DD/ 1126 TD/TT: Ship Painter Helper:DIGOXIN Reviewed date:11/18/2024 03:05:02 PM Interpretation: Performing Lab: Notes/Report: [facility] ,Digoxin1.00.9-2.0 ng/mLPerforming Lab:see noteML - [facility] LBCT chest wo con Reviewed date:12/30/2024 11:28:24 AM Interpretation: Performing Lab: Notes/Report: Source Facility: [place] [address] [place] [address] CT Scan Report Signed Patient: CONNIE BRIAN MR#: [id number] : 1955 Acct:[id number] Age/Sex: 69 / F ADM Date: 12/28/24 Loc: ER Attending Dr: Ordering Physician: Vicente Salomon Date of Service: 12/28/24 Procedure(s): CT chest wo con Accession Number(s): [id number] cc: Harry Valencia M.D. [facility] [place] [id number] Patient Name: CONNIE BRIAN MRN: [id number] date: 1955 Sex: F Assigned Patient Location: ER Current Patient Location: ER Accession/Order Number: [id number] Exam Date: 12/28/2024 12:17 Report Date: 12/28/2024 [...] By: Maisha Albright M.D. Signed By: 12/28/24 1333 DD/ 1328 TD/TT: Ship Painter Helper:CT abdomen pelvis wo con Reviewed date:12/30/2024 11:28:24 AM Interpretation: Performing Lab: Notes/Report: Source Facility: [place] [address] CT Scan Report Signed Patient: CONNIE BRIAN MR#: [id number] : 1955 Acct:[id number] Age/Sex: 69 / F ADM Date: 12/28/24 Loc: ER Attending Dr: Ordering Physician: Vicente Salomon Date of Service: 12/28/24 Procedure(s): CT abdomen pelvis wo con Accession Number(s): [id number] cc: Harry Valencia M.D. [place] [address] Patient Name: CONNIE BRIAN MRN: [id number] date: 1955 Sex: F Assigned Patient Location: ER Current Patient Location: ER Accession/Order Number: [id number] Exam Date: 12/28/2024 12:17 Report Date: 12/28/2024 [...] Signed By: 12/28/24 1331 DD/ 1328 TD/TT: Ship Painter Helper:XR chest 2V Reviewed date:12/30/2024 11:28:24 AM Interpretation: Performing Lab: Notes/Report: Source Facility: [place] [address] XRay Report Signed Patient: CONNIE BRIAN MR#: [id number] : 1955 Acct:[id number] Age/Sex: 69 / F ADM Date: 12/28/24 Loc: ER Attending Dr: Ordering Physician: Vicente Salomon Date of Service: 12/28/24 Procedure(s): XR chest 2V Accession Number(s): [id number] cc: Harry Valencia M.D.; Vicente Salomon [place] [address] Patient Name: CONNIE BRIAN MRN: [id number] date: 1955 Sex: F Assigned Patient Location: ED.MAIN Current Patient Location: ER Accession/Order Number: [id number] Exam Date: 12/28/2024 11:41 Report Date: 12/28/2024 [...] Signed By: 12/28/24 1206 DD/ 1203 TD/TT: Ship Painter Helper:ECG 12 lead Reviewed date:12/30/2024 11:28:24 AM Interpretation: Performing Lab: Notes/Report: Source Facility: [place] [address] Electrocardiograph Report Signed Patient: CONNIE BRIAN MR#: [id number] : 1955 Acct:[id number] Age/Sex: 69 / F ADM Date: 12/28/24 Loc: MS 215- Attending Dr: Harry Valencia M.D. Ordering Physician: Harry Valencia M.D. Date of Service: 12/28/24 Procedure(s): ECG 12 lead Accession Number(s): [id number] cc: [facility] Test Date: 2024-12-28 Pat Name: CONNIE BRIAN Department: Room: [facility] Gender: Female Cook Mayonna[place]: : 1955 Requested By: HARRY VALENCIA Order Number: [id number] Reading MD: HARRY VALENCIA Measurements Intervals [place] Rate: 56 P: 15 CO: 208 QRS: 3 QRSD: 90 T: 207 [...] Dictated By: Harry Valencia M.D. Signed By: 12/30/247 DD/ 23 TD/TT: Ship Painter Helper:CBC AUTO DIFF Reviewed date:12/30/2024 11:28:24 AM Interpretation: Performing Lab: Notes/Report: [facility] ,White Blood Count6.34.0-11.0 10 3/uLRed Blood Count3.084.20-5.40 10 6/uL Hemoglobin7.712.0-16.0 g/aLSmwzxhtheu06.236.0-48.0 %Mean Corpuscular Oylkzx47.1 81.0-99.0 fLMean Corpuscular Xfmyoaxxwz21.026.7-34.0 pgMean Corpuscular HGB Conc 29.429.9-35.2 g/dLRed Cell Distribution Width19.011.0-15.0 %Platelet Cxylb525 150-450 10 3/uLMean Platelet Taskho06.19.5-13.5 fLNeutrophils Percent Auto57.0 43.0-75.0 %Lymphocytes Percent Auto32.320.5-60.0 %Monocytes Percent Auto9.61.7- 12.0 %Eosinophils Percent Auto0.20.9-7.0 %Basophils Percent Auto0.60.2-2.0 % Immature Granulocytes Pct Auto0.30.0-0.5 %Neutrophils Absolute Auto3.61.4-6.5 10 3/uLLymphocytes Absolute Auto2.01.2-3.8 10 3/uLMonocytes Absolute Auto0.60.3- 0.8 10 3/uLEosinophils Absolute Auto0.00.0-0.7 10 3/uLBasophils Absolute Auto0.0 0.0-0.1 10 3/uLImmature Granulocytes Abs Auto0.020.00-0.03 10 3/uLPerforming Lab:see noteML - [facility] LBPROF CHEM 8 (BAS METB) Reviewed date:12/30/2024 11:28:24 AM Interpretation: Performing Lab: Notes/Report: [facility] ,Ygvqom850786-517 mmol/LPotassium4.93.5-5.1 mmol/AIywhhkbu80007-958 mmol/LCarbon Xazbcjj34.221.0-32.0 mmol/LAnion Gap14.4Sxpevvr41010-645 mg/dLBlood Urea Gnlwihxa81.07.0-18.0 mg/dLCreatinine1.590.55-1.02 mg/dLEstimated GFR ( Abhculz80>=60 mL/min/1.73m 2Estimated GFR (Non- Ame32>=60 mL/min/1.73m 2 BUN Creatinine Ratio28.8Ncvtllg6.78.5-10.1 mg/dLPerforming Lab:see noteML - [facility] LBMAGNESIUM Reviewed date:12/30/2024 11:28:24 AM Interpretation: Performing Lab: Notes/Report: [facility] ,Magnesium2.21.8-2.4 mg/dLPerforming Lab:see note - [facility] LB BNP Reviewed date:12/30/2024 11:28:24 AM Interpretation: Performing Lab: Notes/Report: [facility] ,NT Pro B Type Natriuretic Dfjj507.0<=900.0 pg/mLPerforming Lab:see note - [facility] LBCBC AUTO DIFF Reviewed date:12/30/2024 11:28:24 AM Interpretation: Performing Lab: Notes/Report: [facility] ,White Blood Count5.94.0-11.0 10 3/uLRed Blood Count2.674.20-5.40 10 6/uL Hemoglobin6.612.0-16.0 g/dL RESULTS CALLED TO Melecio Grace RN @[facility] [place] at 0610 Uxaomdpkir51.036.0-48.0 % RESULTS CALLED TO Melecio Grace RN @[facility] [place] at 0610 Mean Corpuscular Jiaezs97.481.0-99.0 fLMean Corpuscular Qowknrgprl58.726.7-34.0 pgMean Corpuscular HGB Conc30.029.9-35.2 g/dLRed Cell Distribution Width18.8 11.0-15.0 %Platelet Ulhhd016579-365 10 3/uLMean Platelet Ftgryh62.39.5-13.5 fL Neutrophils Percent Auto61.043.0-75.0 %Lymphocytes Percent Auto28.720.5-60.0 % Monocytes Percent Auto9.11.7-12.0 %Eosinophils Percent Auto0.20.9-7.0 %Basophils Percent Auto0.70.2-2.0 %Immature Granulocytes Pct Auto0.30.0-0.5 %Neutrophils Absolute Auto3.61.4-6.5 10 3/uLLymphocytes Absolute Auto1.71.2-3.8 10 3/uL Monocytes Absolute Auto0.50.3-0.8 10 3/uLEosinophils Absolute Auto0.00.0-0.7 10 3/uLBasophils Absolute Auto0.00.0-0.1 10 3/uLImmature Granulocytes Abs Auto0.02 0.00-0.03 10 3/uLPerforming Lab:see noteML - [facility] LBPROF 14(COMP METB) Reviewed date:12/30/2024 11:28:24 AM Interpretation: Performing Lab: Notes/Report: [facility] ,Pxjrio118867-180 mmol/LPotassium4.73.5-5.1 mmol/AIphxhwhp01494-688 mmol/LCarbon Myzftij68.121.0-32.0 mmol/LAnion Gap11.0Tdtepmo65302-276 mg/dLBlood Urea Ykinysda78.07.0-18.0 mg/dLCreatinine1.370.55-1.02 mg/dLEstimated GFR ( Zyzkeik93>=60 mL/min/1.73m 2Estimated GFR (Non- Ame38>=60 mL/min/1.73m 2 BUN Creatinine Ratio31.8Wmoeotj6.58.5-10.1 mg/dLBilirubin Total2.10.2-1.0 mg/dL Aspartate Amino Twcipngcyzx8353-73 U/LAlanine Eilsphdgzfxplsvs9156-70 U/L Alkaline Qmhrjykztdz29665-019 U/LTotal Protein6.66.4-8.2 g/dLAlbumin Level2.2 3.4-5.0 g/dLGlobulin4.4Albumin Globulin Ratio0.5Performing Lab:see noteML - [facility] LBCBC no Diff (Hemogram) Reviewed date:12/30/2024 11:28:24 AM Interpretation: Performing Lab: Notes/Report: [facility] ,White Blood Count7.14.0-11.0 10 3/uLRed Blood Count3.374.20-5.40 10 6/uL Hemoglobin8.512.0-16.0 g/zKDcgdamyptg17.036.0-48.0 %Mean Corpuscular Omxxla32.1 81.0-99.0 fLMean Corpuscular Yvasrfebrn21.226.7-34.0 pgMean Corpuscular HGB Conc 30.429.9-35.2 g/dLRed Cell Distribution Width18.611.0-15.0 %Platelet Umxfn487 150-450 10 3/uLMean Platelet Yhdrun61.09.5-13.5 fLPerforming Lab:see note - [facility] LBBNP Reviewed date:12/30/2024 11:28:24 AM Interpretation: Performing Lab: Notes/Report: [facility] ,NT Pro B Type Natriuretic Imfe1144.0<=900.0 pg/mLPerforming Lab:see note - [facility] LBCBC AUTO DIFF Reviewed date:12/30/2024 11:28:24 AM Interpretation: Performing Lab: Notes/Report: [facility] ,White Blood Count6.94.0-11.0 10 3/uLRed Blood Count3.134.20-5.40 10 6/uL Hemoglobin7.812.0-16.0 g/oYKnraemizgg93.036.0-48.0 %Mean Corpuscular Vihkup08.1 81.0-99.0 fLMean Corpuscular Djjnjwtqaw11.926.7-34.0 pgMean Corpuscular HGB Conc 30.029.9-35.2 g/dLRed Cell Distribution Width19.211.0-15.0 %Platelet Nmkal900 150-450 10 3/uLMean Platelet Gmjrlf60.79.5-13.5 fLNeutrophils Percent Auto61.9 43.0-75.0 %Lymphocytes Percent Auto27.520.5-60.0 %Monocytes Percent Auto9.01.7- 12.0 %Eosinophils Percent Auto0.30.9-7.0 %Basophils Percent Auto0.90.2-2.0 % Immature Granulocytes Pct Auto0.40.0-0.5 %Neutrophils Absolute Auto4.31.4-6.5 10 3/uLLymphocytes Absolute Auto1.91.2-3.8 10 3/uLMonocytes Absolute Auto0.60.3- 0.8 10 3/uLEosinophils Absolute Auto0.00.0-0.7 10 3/uLBasophils Absolute Auto0.1 0.0-0.1 10 3/uLImmature Granulocytes Abs Auto0.030.00-0.03 10 3/uLPerforming Lab:see noteML - [facility] LBHEMOGRAM AND PLATEL Reviewed date:12/30/2024 05:22:56 PM Interpretation: Performing Lab: Notes/Report: [facility] ,Hemoglobin9.112.0-16.0 g/uKIdeiifmrek73.136.0-48.0 %Performing Lab:see noteML - [facility] LBPROF 14(COMP METB) Reviewed date:12/30/2024 11:28:24 AM Interpretation: Performing Lab: Notes/Report: [facility] ,Tlerir285849-223 mmol/LPotassium4.83.5-5.1 mmol/GQjtwdahr17686-522 mmol/LCarbon Acdnexo69.921.0-32.0 mmol/LAnion Gap14.9Koyewfi88549-559 mg/dLBlood Urea Lstoqnyq90.07.0-18.0 mg/dLCreatinine1.790.55-1.02 mg/dLEstimated GFR ( Rtqkexl01>=60 mL/min/1.73m 2Estimated GFR (Non- Ame28>=60 mL/min/1.73m 2 BUN Creatinine Ratio25.0Krzdpem9.78.5-10.1 mg/dLBilirubin Total1.70.2-1.0 mg/dL Aspartate Amino Rhswhhsikxp4580-58 U/LAlanine Qwnncberdvsqwjln326-49 U/LAlkaline Mfufodaluic9916-992 U/LTotal Protein6.36.4-8.2 g/dLAlbumin Level2.33.4-5.0 g/dL Globulin4.0Albumin Globulin Ratio0.6Performing Lab:see noteML - [facility] LBOccult Blood* Reviewed date:12/30/2024 11:28:24 AM Interpretation: Performing Lab: Notes/Report: [facility] ,Occult BloodPositivePerforming Lab:see [facility] LBBNP Reviewed date:12/31/2024 07:17:30 PM Interpretation: Performing Lab: Notes/Report: [facility] ,NT Pro B Type Natriuretic Szwr201.0<=900.0 pg/mLPerforming Lab:see note - [facility] LBCBC AUTO DIFF Reviewed date:12/31/2024 07:17:30 PM Interpretation: Performing Lab: Notes/Report: [facility] ,White Blood Count6.44.0-11.0 10 3/uLRed Blood Count3.584.20-5.40 10 6/uL Hemoglobin9.012.0-16.0 g/dGPxyliqgecr62.236.0-48.0 %Mean Corpuscular Eummun27.4 81.0-99.0 fLMean Corpuscular Asgcxmueun99.126.7-34.0 pgMean Corpuscular HGB Conc 29.829.9-35.2 g/dLRed Cell Distribution Width20.011.0-15.0 %Platelet Nrqub104 150-450 10 3/uLMean Platelet Mzcwbl70.79.5-13.5 fLNeutrophils Percent Auto55.3 43.0-75.0 %Lymphocytes Percent Auto36.520.5-60.0 %Monocytes Percent Auto6.71.7- 12.0 %Eosinophils Percent Auto0.60.9-7.0 %Basophils Percent Auto0.60.2-2.0 % Immature Granulocytes Pct Auto0.30.0-0.5 %Neutrophils Absolute Auto3.51.4-6.5 10 3/uLLymphocytes Absolute Auto2.31.2-3.8 10 3/uLMonocytes Absolute Auto0.40.3- 0.8 10 3/uLEosinophils Absolute Auto0.00.0-0.7 10 3/uLBasophils Absolute Auto0.0 0.0-0.1 10 3/uLImmature Granulocytes Abs Auto0.020.00-0.03 10 3/uLPerforming Lab:see noteML - [facility] LBPROF 14(COMP METB) Reviewed date:12/31/2024 07:17:30 PM Interpretation: Performing Lab: Notes/Report: [facility] ,Qxmjew189257-517 mmol/LPotassium5.33.5-5.1 mmol/WGqeelmmz26480-478 mmol/LCarbon Nltbbgn61.721.0-32.0 mmol/LAnion Gap15.2Eyeqkpl92149-978 mg/dLBlood Urea Prfvudzu67.07.0-18.0 mg/dLCreatinine2.020.55-1.02 mg/dLEstimated GFR ( Dlumylo06>=60 mL/min/1.73m 2Estimated GFR (Non- Ame24>=60 mL/min/1.73m 2 BUN Creatinine Ratio29.1Kdnlkrr8.68.5-10.1 mg/dLBilirubin Total1.60.2-1.0 mg/dL Aspartate Amino Fvphzuhlbxu4225-17 U/LAlanine Nlshvzycvwwfzqhu6771-00 U/L Alkaline Ysshxgtmsnh0227-337 U/LTotal Protein6.76.4-8.2 g/dLAlbumin Level2.43.4- 5.0 g/dLGlobulin4.3Albumin Globulin Ratio0.6Performing Lab:see noteML - [facility] LBAMMONIA Reviewed date:03/06/2025 09:53:01 AM Interpretation: Performing Lab: Notes/Report: [facility] ,Jvhxhut0697-75 umol/LRESULTS CALLED TO RAINA BLACKMON RN at 1854Performing Lab:see noteML - [facility] LBANTIBODY ID PANEL Reviewed date:03/07/2025 09:11:26 PM Interpretation: Performing Lab: Notes/Report: [facility] ,Antibody IdentificationKBNP Reviewed date:03/05/2025 04:11:43 PM Interpretation: Performing Lab: Notes/Report: [facility] ,NT Pro B Type Natriuretic Jrtc595.0<=900.0 pg/mLPerforming Lab:see noteML - [facility] LBCBC AUTO DIFF Reviewed date:03/05/2025 04:11:43 PM Interpretation: Performing Lab: Notes/Report: [facility] ,White Blood Count4.14.0-11.0 10 3/uLRed Blood Count2.694.20-5.40 10 6/uL Hemoglobin5.812.0-16.0 g/dLRESULTS CALLED TO PERCY MARTINO RNHematocrit21.636.0- 48.0 %RESULTS CALLED TO PERCY MARTINO RNMefreida Corpuscular Pupeic82.381.0-99.0 fL Mean Corpuscular Sgtyaewatm95.626.7-34.0 pgHYPOCHROMASIA 2+Mean Corpuscular HGB Conc26.929.9-35.2 g/dLRed Cell Distribution Width17.811.0-15.0 %Platelet Count 423959-093 10 3/uLMean Platelet Zzbqze33.39.5-13.5 fLNeutrophils Percent Auto 48.243.0-75.0 %Lymphocytes Percent Auto37.420.5-60.0 %Monocytes Percent Auto9.8 1.7-12.0 %Eosinophils Percent Auto3.70.9-7.0 %Basophils Percent Auto0.70.2-2.0 % Immature Granulocytes Pct Auto0.20.0-0.5 %Neutrophils Absolute Auto2.01.4-6.5 10 3/uLLymphocytes Absolute Auto1.51.2-3.8 10 3/uLMonocytes Absolute Auto0.40.3- 0.8 10 3/uLEosinophils Absolute Auto0.20.0-0.7 10 3/uLBasophils Absolute Auto0.0 0.0-0.1 10 3/uLImmature Granulocytes Abs Auto0.010.00-0.03 10 3/uLPerforming Lab:see noteML - [facility] LBLACTATE or LACTIC ACID Reviewed date:03/05/2025 04:11:43 PM Interpretation: Performing Lab: Notes/Report: [facility] ,Lactate/Lactic Acid4.50.4-2.0 mmol/LRESULTS CALLED TO VERONIKA SALTERRNPerforming Lab:see noteML - [facility] LBLIPASE Reviewed date:03/05/2025 04:11:43 PM Interpretation: Performing Lab: Notes/Report: [facility] ,Rcydvi30.016.0-77.0 U/LPerforming Lab:see noteML - [facility] LB LIVER PROFILE Reviewed date:03/05/2025 04:11:43 PM Interpretation: Performing Lab: Notes/Report: [facility] ,Bilirubin Total1.00.2-1.0 mg/dLBilirubin Direct0.40.0-0.2 mg/dLAspartate Amino Jdytztckssx6320-36 U/LAlanine Oroocpjowubztlic0065-76 U/LAlkaline Napoqopflie778 46-116 U/LTotal Protein6.96.4-8.2 g/dLAlbumin Level2.83.4-5.0 g/dLGlobulin4.1 Albumin Globulin Ratio0.7Performing Lab:see noteML - [facility] LB MAGNESIUM Reviewed date:03/05/2025 04:11:43 PM Interpretation: Performing Lab: Notes/Report: [facility] ,Magnesium1.81.8-2.4 mg/dLPerforming Lab:see noteML - [facility] LB PROF CHEM 8 (BAS METB) Reviewed date:03/05/2025 04:11:43 PM Interpretation: Performing Lab: Notes/Report: [facility] ,Ivnwvl264764-114 mmol/LPotassium4.23.5-5.1 mmol/AYzljdzyt22715-053 mmol/LCarbon Nekmrxa48.821.0-32.0 mmol/LAnion Gap15.6Smghztm46058-737 mg/dLBlood Urea Kigrhtfj85.07.0-18.0 mg/dLCreatinine1.080.55-1.02 mg/dLEstimated GFR ( Madiha>60>=60 mL/min/1.73m 2Estimated GFR (Non- Ame50>=60 mL/min/1.73m 2 BUN Creatinine Ratio23.1Joueuip8.58.5-10.1 mg/dLPerforming Lab:see noteML - [facility] LBPTT Reviewed date:03/05/2025 01:33:59 PM Interpretation: Performing Lab: Notes/Report: [facility] ,Partial Thromboplastin Time31.522.3-36.2 secPerforming Lab:see noteML - [facility] LBUA RANDOM W or MICROSCOPIC Reviewed date:03/06/2025 09:53:01 AM Interpretation: Performing Lab: Notes/Report: [facility] ,Color UrineYELLOWYELLOWClarity UrineCLEARCLEARSpecific [place] Urine1.025 1.005-1.025pH Urine6.05.0-9.0Protein Upwqk90SBH/TRACE mg/dLGlucose Urine UA NEGATIVENEGATIVE mg/dLBilirubin UrineNEGATIVENEGATIVEKetones UrineTRACENEGATIVE mg/dLBlood UrineNEGATIVENEGATIVENitrite UrineNEGATIVENEGATIVEUrobilinogen Urine 0.20.2-1.0 EU/dLLeukocyte Esterase UrineNEGATIVENEGATIVEWBC Urine2-5NONE SEEN #/HPFRBC Urine0-20-2 #/HPFBacteria UrineLARGENONE SEEN #/HPFMucus UrineNONE SEEN NONE SEENSquamous Epithelial Cell UrineMODERATENONE/RARE #/LPFCrystals Seen?None SeenNone Seen #/HPFCast Seen?NONE SEENNONE SEEN #/LPFUrine Culture Indicated ALREADY ORDEREDPerforming Lab:see noteML - [facility] LBProthrombin Time INR Reviewed date:03/05/2025 01:33:59 PM Interpretation: Performing Lab: Notes/Report: [facility] ,Prothrombin Time13.19.0-11.6 secINR1.26 DESIRED INR: 2.0-3.0 CONDITIONS NOT LISTED BELOW 2.5-3.5 FOR PROSTHETIC HEART VALVE REPLACEMENT 2.5-3.5 RECURRENT THROMBOSIS Performing Lab:see noteML - [facility] LBPacked Red Blood Cells Reviewed date:03/07/2025 09:11:26 PM Interpretation: Performing Lab: Notes/Report: [facility] ,Packed Red Blood Cells [id number] OP RC TRANSFUSED 03/06/25 1724 [id number] ON RC TRANSFUSED 03/06/25 0728 [id number] OP RC TRANSFUSED 03/06/25 0524 [id number] OP RC TRANSFUSED 03/06/25 2116 Occult Blood* Reviewed date:03/05/2025 05:54:06 PM Interpretation: Performing Lab: Notes/Report: [facility] ,Occult BloodPositivePerforming Lab:see noteML - [facility] LBUrine Culture - [facility] Reviewed date:03/09/2025 01:15:48 PM Interpretation: Performing Lab: Notes/Report: [facility] ,Urine Culture - [facility]MCSee Below For Report Urine [facility] - [facility] Testing performed at [facility] O:ESCCOL Isolated Urine Culture - [facility] [place]asper Count Organism: 1.1 Antibiotic Interpretation KAL Status Urine Culture - [id number] [place] [address] Urine Culture - [facility] Testing performed at [facility] O:ESCCOL Isolated Urine Culture - [facility] [place] Count Organism: 1.1 Antibiotic Interpretation KAL Status Urine Culture - [facility]MCSee Below For Report Urine Culture [facility] Testing performed at [facility] O:ESCCOL Isolated Urine Culture - [facility] [place] Count Organism: 1.1 Antibiotic Interpretation KAL Status Urine Culture - [facility]MCSee Below For Report Urine Culture - [facility] Testing performed at [facility] O:ESCCOL Isolated Urine Culture - [facility] [place] Count Organism: 1.1 Antibiotic Interpretation KAL Status Urine Culture - [facility]>100,000 [facility]rine Culture - [facility] Testing performed at [facility] O:ESCCOL Isolated Urine Culture - [facility] [place] Count Organism: 1.1 Antibiotic Interpretation KAL Status Urine Culture - [facility]MCSee Below For Report Urine Culture [facility] Testing performed at [facility] O:ESCCOL Isolated Urine Culture - [facility] [place] Count Organism: 1.1 Antibiotic Interpretation KAL Status Urine Culture - FRMCAmikacin S F Urine Culture - [facility] Testing performed at [facility] O:ESCCOL Isolated Urine Culture - [facility] [place] Count Organism: 1.1 Antibiotic Interpretation KAL Status Urine Culture - FRMCAmoxicillin/Clavulanate S F Urine Culture - [facility] Testing performed at [facility] O:ESCCOL Isolated Urine Culture - [facility] [place] Count Organism: 1.1 Antibiotic Interpretation KAL Status Urine Culture - FRMCAmpicillin R F Urine Culture - [facility] Testing performed at [facility] O:ESCCOL Isolated Urine Culture - [facility] [place] Count Organism: 1.1 Antibiotic Interpretation KAL Status Urine Culture - FRMCAztreonam S F Urine Culture - [facility] Testing performed at [facility] O:ESCCOL Isolated Urine Culture - [facility] [place] Count Organism: 1.1 Antibiotic Interpretation KAL Status Urine Culture - FRMCCeftazidime S F Urine Culture - [facility] Testing performed at [facility] O:ESCCOL Isolated Urine Culture - [facility] [place] Count Organism: 1.1 Antibiotic Interpretation KAL Status Urine Culture - FRMCCeftazidime/Avibactam S F Urine Culture - [facility] Testing performed at [facility] O:ESCCOL Isolated Urine Culture - [facility] [place] Count Organism: 1.1 Antibiotic Interpretation KAL Status Urine Culture - FRMCCeftolozane/Tazobactam S F Urine Culture - [facility] Testing performed at [facility] O:ESCCOL Isolated Urine Culture - [facility] [place] Count Organism: 1.1 Antibiotic Interpretation KAL Status Urine Culture - FRMCCiprofloxacin R F Urine Culture - [facility] Testing performed at [facility] O:ESCCOL Isolated Urine Culture - [facility] [place] Count Organism: 1.1 Antibiotic Interpretation KAL Status Urine Culture - FRMCErtapenem S F Urine Culture - [facility] Testing performed at [facility] O:ESCCOL Isolated Urine Culture - [facility] [place] Count Organism: 1.1 Antibiotic Interpretation KAL Status Urine Culture - FRMCGentamicin S F Urine Culture - [facility] Testing performed at [facility] O:ESCCOL Isolated Urine Culture - [facility] [place] Count Organism: 1.1 Antibiotic Interpretation KAL Status Urine Culture - FRMCLevofloxacin R F Urine Culture - [facility] Testing performed at [facility] O:ESCCOL Isolated Urine Culture - [facility] [place] Count Organism: 1.1 Antibiotic Interpretation KAL Status Urine Culture - FRMCMeropenem S F Urine Culture - [facility] Testing performed at [facility] O:ESCCOL Isolated Urine Culture - [facility] [place] Count Organism: 1.1 Antibiotic Interpretation KAL Status Urine Culture - FRMCMeropenem/Vaborbactam S F Urine Culture - [facility] Testing performed at [facility] O:ESCCOL Isolated Urine Culture - [facility] [place] Count Organism: 1.1 Antibiotic Interpretation KAL Status Urine Culture - FRMCNitrofurantoin S F Urine Culture - [facility] Testing performed at [facility] O:ESCCOL Isolated Urine Culture - [facility] [place] Count Organism: 1.1 Antibiotic Interpretation KAL Status Urine Culture - FRMCTetracycline S F Urine Culture - [facility] Testing performed at [facility] O:ESCCOL Isolated Urine Culture - [facility] [place] Count Organism: 1.1 Antibiotic Interpretation KAL Status Urine Culture - FRMCTigecycline S F Urine Culture - [facility] Testing performed at [facility] O:ESCCOL Isolated Urine Culture - [facility] [place] Count Organism: 1.1 Antibiotic Interpretation KAL Status Urine Culture - FRMCTobramycin S F Urine Culture - [facility] Testing performed at [facility] O:ESCCOL Isolated Urine Culture - [facility] [place] Count Organism: 1.1 Antibiotic Interpretation KAL Status Urine Culture - FRMCAmpicillin/Sulbactam R F Urine Culture - [facility] Testing performed at [facility] O:ESCCOL Isolated Urine Culture - [facility] [place] Count Organism: 1.1 Antibiotic Interpretation KAL Status Urine Culture - FRMCCefazolin S F Urine Culture - [facility] Testing performed at [facility] O:ESCCOL Isolated Urine Culture - [facility] [place] Count Organism: 1.1 Antibiotic Interpretation KAL Status Urine Culture - FR[facility]CCefepime S F Urine Culture - [facility] Testing performed at [facility] O:ESCCOL Isolated Urine Culture - [facility] [place] Count Organism: 1.1 Antibiotic Interpretation KAL Status Urine Culture - FRMCCeftriaxone S F Urine Culture - [facility] Testing performed at [facility] O:ESCCOL Isolated Urine Culture - [facility] [place] Count Organism: 1.1 Antibiotic Interpretation KAL Status Urine Culture - FRMCCefuroxime S F Urine Culture - [facility] Testing performed at [facility] O:ESCCOL Isolated Urine Culture - [facility] [place] Count Organism: 1.1 Antibiotic Interpretation KAL Status Urine Culture - FRMCPiperacillin/Tazobactam S F Urine Culture - [facility] Testing performed at [facility] O:ESCCOL Isolated Urine Culture - [facility] [place] Count Organism: 1.1 Antibiotic Interpretation KAL Status Urine Culture - FRMCTrimethoprim/Sulfa S F Urine Culture - [facility] Testing performed at [facility] O:ESCCOL Isolated Urine Culture - [facility] [place] Count Organism: 1.1 Antibiotic Interpretation KAL Status Performing Lab:see note ML - [facility] SEE REPORT - Remote Inpatient Coder Id information not found for OBX-specific producer arborist manager legend ECG 12 lead Reviewed date:03/06/2025 09:53:01 AM Interpretation: Performing Lab: Notes/Report: Source Facility: [facility]-[address] [place] [address] [address] Electrocardiograph Report Signed Patient: CONNIE BRIAN MR#: [id number] : 1955 Acct:[id number] Age/Sex: 69 / F ADM Date: 03/05/25 Loc: [place] 222-[address]: Harry Valencia M.D. Ordering Physician: Curly Suarez M.D. Date of Service: 03/05/25 Procedure(s): ECG 12 lead Accession Number(s): [id number] cc: [facility] Test Date: 2025-03-05 Pat Name: CONNIE BRIAN Department: Room: - Gender: Female Cook [place]: : 1955 Requested By: HARRY VALENCIA Order Number: [id number] Reading MD: RUFINA CROUCH M.D. Measurements Intervals [place] Rate: 64 P: 55 CO: 198 QRS: 75 QRSD: 76 T: 90 QT: 384 QTc: 393 Interpretive Statements 1100 Sinus rhythm 4068 Nonspecific Twave abnormality 9130 borderline ECG Compared to ECG 12/28/2024 19:24:10 Ventricular premature complex(es) no longer present Electronically Signed On 03-05-2025 19:33:52 EDT by RUFINA CROUCH M.D. Dictated By: RUFINA CROUCH Signed By: 03/05/25 1934 DD/ 1453 TD/TT: Ship Painter Helper:LACTATE or LACTIC ACID Reviewed date:03/06/2025 09:53:01 AM Interpretation: Performing Lab: Notes/Report: Y [facility] ,Lactate/Lactic Acid4.50.4-2.0 mmol/LRESULTS CALLED TO RAINA BLACKMON RN at 1854Performing Lab:see noteML - [facility] LBLACTATE or LACTIC ACID Reviewed date:03/06/2025 09:53:01 AM Interpretation: Performing Lab: Notes/Report: [facility] ,Lactate/Lactic Acid3.90.4-2.0 mmol/LRESULTS CALLED TO MARIA C HARGROVE RN at 2136 Performing Lab:see note - [facility] LBAMMONIA Reviewed date:03/06/2025 09:53:01 AM Interpretation: Performing Lab: Notes/Report: [facility] ,Yqnuvku3416-08 umol/L RESULTS CALLED TO SOILA WEBBER RN @BY Zo Juarez at 0608 Performing Lab:see [facility] LBLACTATE or LACTIC ACID Reviewed date:03/06/2025 01:58:57 PM Interpretation: Performing Lab: Notes/Report: [facility] ,Lactate/Lactic Acid3.80.4-2.0 mmol/LRESULTS CALLED TO emerald dominguez rn Performing Lab:see [facility] LBMAGNESIUM Reviewed date:03/06/2025 09:53:01 AM Interpretation: Performing Lab: Notes/Report: [facility] ,Magnesium1.91.8-2.4 mg/dLPerforming Lab:see [facility] LB PROF 14(COMP METB) Reviewed date:03/06/2025 09:53:01 AM Interpretation: Performing Lab: Notes/Report: [facility] ,Njstua504108-189 mmol/LPotassium5.63.5-5.1 mmol/TOdpyjugx19009-249 mmol/LCarbon Edxujmh92.121.0-32.0 mmol/LAnion Gap15.2Gvargbe30544-211 mg/dLBlood Urea Nqhtayko98.07.0-18.0 mg/dLCreatinine1.540.55-1.02 mg/dLEstimated GFR ( Kdzjmiw63>=60 mL/min/1.73m 2Estimated GFR (Non- Ame34>=60 mL/min/1.73m 2 BUN Creatinine Ratio20.2Qsivcfv8.98.5-10.1 mg/dLBilirubin Total0.90.2-1.0 mg/dL Aspartate Amino Xqvlirqhdfx0174-51 U/LAlanine Zaknwqiojjhxdjkl9380-43 U/L Alkaline Tdcrhoqqyba92447-010 U/LTotal Protein6.56.4-8.2 g/dLAlbumin Level2.7 3.4-5.0 g/dLGlobulin3.8Albumin Globulin Ratio0.7Performing Lab:see note - [facility] no Diff (Hemogram) Reviewed date:03/06/2025 01:58:57 PM Interpretation: Performing Lab: Notes/Report: [facility] ,White Blood Count4.34.0-11.0 10 3/uLRed Blood Count3.074.20-5.40 10 6/uL Hemoglobin7.212.0-16.0 g/aPThfyhjzrnd03.236.0-48.0 %Mean Corpuscular Ykpoeb38.8 81.0-99.0 fLMean Corpuscular Qyloqywwyb26.526.7-34.0 pgMean Corpuscular HGB Conc 29.829.9-35.2 g/dLRed Cell Distribution Width17.811.0-15.0 %Platelet Iptks053 150-450 10 3/uLMean Platelet Fjwbqn84.89.5-13.5 fLPerforming Lab:see note - [facility] LBLACTATE or LACTIC ACID Reviewed date:03/06/2025 08:03:40 PM Interpretation: Performing Lab: Notes/Report: [facility] ,Lactate/Lactic Acid3.20.4-2.0 mmol/LRESULTS CALLED TO EMERALD DOMINGUEZ RN Performing Lab:see note - [facility] AUTO DIFF Reviewed date:03/11/2025 08:05:20 PM Interpretation: Performing Lab: Notes/Report: [facility] ,White Blood Count4.64.0-11.0 10 3/uLRed Blood Count3.684.20-5.40 10 6/uL Hemoglobin8.812.0-16.0 g/jDHovfngpxaf83.636.0-48.0 %Mean Corpuscular Dglepe25.2 81.0-99.0 fLMean Corpuscular Rsadlvshdc65.926.7-34.0 pgMean Corpuscular HGB Conc 28.829.9-35.2 g/dLRed Cell Distribution Width18.811.0-15.0 %Platelet Sflne323 150-450 10 3/uLMean Platelet Jfsjfq80.79.5-13.5 fLNeutrophils Percent Auto59.0 43.0-75.0 %Lymphocytes Percent Auto28.120.5-60.0 %Monocytes Percent Auto8.01.7- 12.0 %Eosinophils Percent Auto4.10.9-7.0 %Basophils Percent Auto0.60.2-2.0 % Immature Granulocytes Pct Auto0.20.0-0.5 %Neutrophils Absolute Auto2.71.4-6.5 10 3/uLLymphocytes Absolute Auto1.31.2-3.8 10 3/uLMonocytes Absolute Auto0.40.3- 0.8 10 3/uLEosinophils Absolute Auto0.20.0-0.7 10 3/uLBasophils Absolute Auto0.0 0.0-0.1 10 3/uLImmature Granulocytes Abs Auto0.010.00-0.03 10 3/uLPerforming Lab:see noteML - [facility] LBPROF 14(COMP METB) Reviewed date:03/11/2025 08:05:20 PM Interpretation: Performing Lab: Notes/Report: [facility] ,Nrbudb378164-736 mmol/LPotassium4.53.5-5.1 mmol/ROcfdqcsm07558-370 mmol/LCarbon Qpnhxow73.421.0-32.0 mmol/LAnion Gap12.0Zxpfvla65425-449 mg/dLBlood Urea Abcxyqze47.07.0-18.0 mg/dLCreatinine0.990.55-1.02 mg/dLEstimated GFR ( Madiha>60>=60 mL/min/1.73m 2Estimated GFR (Non- Ame56>=60 mL/min/1.73m 2 BUN Creatinine Ratio20.8Qmstgpz7.78.5-10.1 mg/dLBilirubin Total1.00.2-1.0 mg/dL Aspartate Amino Qouymxkcnah5258-59 U/LAlanine Kastmbotgjglcqsn7583-58 U/L Alkaline Wqbswprsxrf85464-526 U/LTotal Protein6.86.4-8.2 g/dLAlbumin Level2.7 3.4-5.0 g/dLGlobulin4.1Albumin Globulin Ratio0.7Performing Lab:see noteML - [facility] LBUS abdomen limited Reviewed date:03/18/2025 07:29:56 PM Interpretation: Performing Lab: Notes/Report: Source Facility: [place] [address] Ultrasound Report Signed Patient: CONNIE BRIAN MR#: [id number] : 1955 Acct:[id number] Age/Sex: 69 / F ADM Date: 03/16/25 Loc: US Attending Dr: Harry Valencia M.D. Ordering Physician: Harry Valencia M.D. Date of Service: 03/16/25 Procedure(s): US abdomen limited Accession Number(s): [id number] cc: Harry Valencia M.D. [place] [address] Patient Name: CONNIE BRIAN MRN: [id number] date: 1955 Sex: F Assigned Patient Location: US Current Patient Location: Accession/Order Number: [id number] Exam Date: 03/18/2025 12:36 Report Date: 03/18/2025 [...] Jr., D.O. 03/18/2025 12:37 PM Dictation Location: [place] [address] Electronically authenticated by: [id number] Y Date: 03/18/2025 12:37 Dictated By: Duke Cooper M.D. Signed By: 03/18/25 1239 DD/ 1237 TD/TT: Ship Painter Helper:US abdomen complete Reviewed date:03/18/2025 07:29:56 PM Interpretation: Performing Lab: Notes/Report: Source Facility: [address] [address] Ultrasound Report Signed Patient: CONNIE BRIAN MR#: [id number] : 1955 Acct:[id number] Age/Sex: 69 / F ADM Date: 03/16/25 Loc: US Attending Dr: Harry Valencia M.D. Ordering Physician: Harry Valencia M.D. Date of Service: 03/16/25 Procedure(s): US abdomen complete Accession Number(s): [id number] cc: Harry Valencia M.D. [place] [address] Patient Name: CONNIE BRIAN MRN: [id number] date: 1955 Sex: F Assigned Patient Location: US Current Patient Location: Accession/Order Number: [id number] Exam Date: 03/18/2025 12:33 Report Date: 03/18/2025 [...] AMOUNT OF ASCITES. SPLENOMEGALY.. Impression dictated by: Shiv Sandoval Jr.OBrayan 03/18/2025 12:35 PM Dictation Location: [place] [address] Electronically authenticated by: [id number] Y Date: 03/18/2025 12:35 Dictated By: Duke Cooper M.D. Signed By: 03/18/25 1238 DD/ 1235 TD/TT: Ship Painter Helper:CBC AUTO DIFF Reviewed date:03/25/2025 03:00:45 PM Interpretation: Performing Lab: Notes/Report: [facility] ,White Blood Count4.24.0-11.0 10 3/uLRed Blood Count3.444.20-5.40 10 6/uL HYPOCHROMIA 2+Hemoglobin8.312.0-16.0 g/iKOugivcvzcn99.836.0-48.0 %Mean Corpuscular Kvsryh49.781.0-99.0 fLMean Corpuscular Swziuxwept30.126.7-34.0 pg Mean Corpuscular HGB Conc28.829.9-35.2 g/dLRed Cell Distribution Width20.811.0- 15.0 %Platelet Dqqhx663459-249 10 3/uLMean Platelet Stpyqe23.79.5-13.5 fL Neutrophils Percent Auto54.043.0-75.0 %Lymphocytes Percent Auto28.720.5-60.0 % Monocytes Percent Auto10.61.7-12.0 %Eosinophils Percent Auto5.50.9-7.0 % Basophils Percent Auto1.00.2-2.0 %Immature Granulocytes Pct Auto0.20.0-0.5 % Neutrophils Absolute Auto2.21.4-6.5 10 3/uLLymphocytes Absolute Auto1.21.2-3.8 10 3/uLMonocytes Absolute Auto0.40.3-0.8 10 3/uLEosinophils Absolute Auto0.20.0- 0.7 10 3/uLBasophils Absolute Auto0.00.0-0.1 10 3/uLImmature Granulocytes Abs Auto0.010.00-0.03 10 3/uLPerforming Lab:see noteML - [facility] LBCBC AUTO DIFF Reviewed date:04/22/2025 09:31:14 PM Interpretation: Performing Lab: Notes/Report: [facility] ,White Blood Count5.94.0-11.0 10 3/uLRed Blood Count3.184.20-5.40 10 6/uL Hemoglobin7.512.0-16.0 g/uZJehafspczk31.336.0-48.0 %Mean Corpuscular Djvlsk03.7 81.0-99.0 fLMean Corpuscular Kheuhrtlvj97.626.7-34.0 pgMean Corpuscular HGB Conc 28.529.9-35.2 g/dLRed Cell Distribution Width19.611.0-15.0 %Platelet Vpcde910 150-450 10 3/uLMean Platelet Bcfojp85.19.5-13.5 fLPerforming Lab:see noteML - [facility] LBManual Differential Reviewed date:04/22/2025 09:31:14 PM Interpretation: Performing Lab: Notes/Report: [facility] ,Segmented Neutrophils % Bbtdjv93.043.0-75.0Band Neutrophils %0.00-5 % Lymphocytes Percent Ypkvvi07.020.5-60.0 %Monocytes Percent Manual8.01.7-12.0 % Eosinophils Percent Manual5.00.9-7.0 %Basophils Percent Manual0.00.2-2.0 % Segmented Neut Absolute Manual3.951.4-6.5 10 3/uLBand Neutrophils Absolute0.0 0.0-0.3 10 3/uLLymphocytes Absolute Manual1.181.20-3.80 10 3/uLMonocytes Absolute Manual0.470.30-0.80 10 3/uLEosinophils Absolute Manual0.290.00-0.70 10 3/uLBasophils Abs Manual0.000.00-0.10 10 3/uLHypochromasia1+Anisocytosis2+ Performing Lab:see noteML - [facility] LBCBC AUTO DIFF Reviewed date:06/10/2025 06:33:06 PM Interpretation: Performing Lab: Notes/Report: [facility] ,White Blood Count6.64.0-11.0 10 3/uLRed Blood Count3.334.20-5.40 10 6/uL Hemoglobin7.312.0-16.0 g/uXDhlxfoxwua27.036.0-48.0 %Mean Corpuscular Idhyoy56.1 81.0-99.0 fLMean Corpuscular Nlwcucyliu64.926.7-34.0 pgMean Corpuscular HGB Conc 28.129.9-35.2 g/dLRed Cell Distribution Width16.011.0-15.0 %Platelet Mvwvq945 150-450 10 3/uLMean Platelet Volume9.99.5-13.5 fLNeutrophils Percent Auto58.5 43.0-75.0 %Lymphocytes Percent Auto30.120.5-60.0 %Monocytes Percent Auto5.31.7- 12.0 %Eosinophils Percent Auto5.30.9-7.0 %Basophils Percent Auto0.60.2-2.0 % Immature Granulocytes Pct Auto0.20.0-0.5 %Neutrophils Absolute Auto3.81.4-6.5 10 3/uLLymphocytes Absolute Auto2.01.2-3.8 10 3/uLMonocytes Absolute Auto0.40.3- 0.8 10 3/uLEosinophils Absolute Auto0.40.0-0.7 10 3/uLBasophils Absolute Auto0.0 0.0-0.1 10 3/uLImmature Granulocytes Abs Auto0.010.00-0.03 10 3/uLPerforming Lab:see noteML - [facility] LBPROF CHEM 8 (BAS METB) Reviewed date:06/10/2025 06:33:06 PM Interpretation: Performing Lab: Notes/Report: [facility] ,Onafsu211849-960 mmol/LPotassium5.13.5-5.1 mmol/UCwkxzsod04444-706 mmol/LCarbon Rdrymaq76.721.0-32.0 mmol/LAnion Gap15.1Nuxvmqp06917-353 mg/dLBlood Urea Emdacldw89.07.0-18.0 mg/dLCreatinine1.320.55-1.02 mg/dLEstimated GFR ( Nkhmsmr67>=60 mL/min/1.73m 2Estimated GFR (Non- Ame40>=60 mL/min/1.73m 2 BUN Creatinine Ratio30.4Ubtbzqs7.58.5-10.1 mg/dLPerforming Lab:see noteML - [facility] LBANTIBODY ID PANEL Reviewed date:07/14/2025 11:17:02 AM Interpretation: Performing Lab: Notes/Report: [facility] ,Antibody IdentificationKPacked Red Blood Cells Reviewed date:07/14/2025 11:17:02 AM Interpretation: Performing Lab: Notes/Report:Packed Red Blood Cells [id number] OP RC TRANSFUSED 07/12/25 1634 [id number] OP RC TRANSFUSED 07/12/25 1931 Type and Screen Reviewed date:07/14/2025 11:17:02 AM Interpretation: Performing Lab: Notes/Report: [facility] ,Blood TypeO PositiveAntibody ScreenPOSITIVETransferrin Reviewed date:07/12/2025 12:51:28 PM Interpretation: Performing Lab: Notes/Report: [facility] ,Ssqwmuvrcqw046869-911 mg/dL Performed at: [facility] [address] [id number] Associate Partner: Dennis Garcias PhD, Phone: [phone] Performing Lab:see noteLC - [facility] LBFOLATE Reviewed date:07/12/2025 12:51:28 PM Interpretation: Performing Lab: Notes/Report: [facility] ,Uzudrq59.708.60-58.90 ng/mLPerforming Lab:see noteML - [facility] LB PROF 14(COMP METB) Reviewed date:07/12/2025 12:51:28 PM Interpretation: Performing Lab: Notes/Report: [facility] ,Jlspom561567-589 mmol/LPotassium4.03.5-5.1 mmol/HYjwrcptu23046-157 mmol/LCarbon Tyojfsf16.621.0-32.0 mmol/LAnion Gap12.5Lidkawc43808-186 mg/dLBlood Urea Hhijnext46.07.0-18.0 mg/dLCreatinine1.170.55-1.02 mg/dLEstimated GFR ( Rxmrscr34>=60 mL/min/1.73m 2Estimated GFR (Non- Ame46>=60 mL/min/1.73m 2 BUN Creatinine Ratio35.2Vmdlzhj1.08.5-10.1 mg/dLBilirubin Total0.80.2-1.0 mg/dL Aspartate Amino Auwrimmqmkd3656-78 U/LAlanine Pusclhykceesaqgr1600-74 U/L Alkaline Irpntvuuiws2699-686 U/LTotal Protein6.16.4-8.2 g/dLAlbumin Level2.53.4- 5.0 g/dLGlobulin3.6Albumin Globulin Ratio0.7Performing Lab:see noteML - [facility] LBCBC no Diff (Hemogram) Reviewed date:07/12/2025 12:51:28 PM Interpretation: Performing Lab: Notes/Report: [facility] ,White Blood Count4.34.0-11.0 10 3/uLRed Blood Count2.524.20-5.40 10 6/uL Hemoglobin5.612.0-16.0 g/dL RESULTS CALLED TO Faviola Hargrove RN @BY Shelton Fernando MLT at 0629 Sxwwchizyk49.436.0-48.0 % RESULTS CALLED TO Faviola Hargrove RN @BY Shelton Fernando SUPERVISOR PUBLICATIONS PRODUCTION at 0629 Mean Corpuscular Hnkkul10.081.0-99.0 fLMean Corpuscular Lqrijihpiq42.226.7-34.0 pgMean Corpuscular HGB Conc28.929.9-35.2 g/dLRed Cell Distribution Width17.4 11.0-15.0 %Platelet Mvmmg626549-651 10 3/uLMean Platelet Fyhvpv39.89.5-13.5 fL Performing Lab:see noteML - [facility] LBUrine Culture - [facility] Reviewed date:07/15/2025 06:58:32 PM Interpretation: Performing Lab: Notes/Report: [facility] ,Urine Culture - [facility]MCSee Below For Report Urine [facility] Testing performed at [facility] O:ESCCOL Isolated Urine Culture - [facility] [place] Count Organism: 1.1 Antibiotic Interpretation KAL Status Urine Culture - [id number] [place] [address] Urine Culture - [facility] Testing performed at [facility] O:ESCCOL Isolated Urine Culture - [facility] [place] Count Organism: 1.1 Antibiotic Interpretation KAL Status Urine Culture - [facility]MCSee Below For Report Urine Culture [facility] Testing performed at [facility] O:ESCCOL Isolated Urine Culture - [facility] [place] Count Organism: 1.1 Antibiotic Interpretation KAL Status Urine Culture - [facility]MCSee Below For Report Urine Culture [facility] Testing performed at [facility] O:ESCCOL Isolated Urine Culture - [facility] [place] Count Organism: 1.1 Antibiotic Interpretation KAL Status [facility]rine Culture [facility]>100,000 Urine Culture [facility] Testing performed at [facility] O:ESCCOL Isolated Urine Culture - [facility] [place] Count Organism: 1.1 Antibiotic Interpretation KAL Status Urine Culture - [facility]MCSee Below For Report Urine Culture [facility] Testing performed at [facility] O:ESCCOL Isolated Urine Culture - [facility] [place] Count Organism: 1.1 Antibiotic Interpretation KAL Status Urine Culture - FRMCAmikacin S F Urine Culture - [facility] Testing performed at [facility] O:ESCCOL Isolated Urine Culture - [facility] [place] Count Organism: 1.1 Antibiotic Interpretation KAL Status Urine Culture - FRMCAmoxicillin/Clavulanate S F [facility]rine [facility] Testing performed at [facility] O:ESCCOL Isolated Urine Culture - [facility] [place] Count Organism: 1.1 Antibiotic Interpretation KAL Status Urine Culture - [facility]mpicillin R F Urine Culture - [facility] Testing performed at [facility] O:ESCCOL Isolated Urine Culture - [facility] [place] Count Organism: 1.1 Antibiotic Interpretation KAL Status Urine Culture - [facility]CAztreonam S F Urine Culture - [facility] Testing performed at [facility] O:ESCCOL Isolated Urine Culture - [facility] [place] Count Organism: 1.1 Antibiotic Interpretation KAL Status Urine Culture - FRMCCeftazidime S F Urine Culture - [facility] Testing performed at [facility] O:ESCCOL Isolated Urine Culture - [facility] [place] Count Organism: 1.1 Antibiotic Interpretation KAL Status Urine Culture - FRMCCeftazidime/Avibactam S F Urine Culture - [facility] Testing performed at [facility] O:ESCCOL Isolated Urine Culture - [facility] [place] Count Organism: 1.1 Antibiotic Interpretation KAL Status Urine Culture - FRMCCeftolozane/Tazobactam S F Urine Culture - [facility] Testing performed at [facility] O:ESCCOL Isolated Urine Culture - [facility] [place] Count Organism: 1.1 Antibiotic Interpretation KAL Status Urine Culture - FR[facility]CCiprofloxacin R F Urine Culture - [facility] Testing performed at [facility] O:ESCCOL Isolated Urine Culture - [facility] [place] Count Organism: 1.1 Antibiotic Interpretation KAL Status Urine Culture - FRMCErtapenem S F Urine Culture - [facility] Testing performed at [facility] O:ESCCOL Isolated Urine Culture - [facility] [place] Count Organism: 1.1 Antibiotic Interpretation KAL Status Urine Culture - FRMCGentamicin S F Urine Culture - [facility] Testing performed at [facility] O:ESCCOL Isolated Urine Culture - [facility] [place] Count Organism: 1.1 Antibiotic Interpretation KAL Status Urine Culture - FR[facility]CLevofloxacin R F Urine Culture - [facility] Testing performed at [facility] O:ESCCOL Isolated Urine Culture - [facility] [place] Count Organism: 1.1 Antibiotic Interpretation KAL Status Urine Culture - FRMCMeropenem S F Urine Culture - [facility] Testing performed at [facility] O:ESCCOL Isolated Urine Culture - [facility] [place] Count Organism: 1.1 Antibiotic Interpretation KAL Status Urine Culture - FRMCMeropenem/Vaborbactam S F Urine Culture - [facility] Testing performed at [facility] O:ESCCOL Isolated Urine Culture - [facility] [place] Count Organism: 1.1 Antibiotic Interpretation KAL Status Urine Culture - FRMCNitrofurantoin S F Urine Culture - [facility] Testing performed at [facility] O:ESCCOL Isolated Urine Culture - [facility] [place] Count Organism: 1.1 Antibiotic Interpretation KAL Status Urine Culture - FR[facility]CTetracycline S F Urine Culture - [facility] Testing performed at [facility] O:ESCCOL Isolated Urine Culture - [facility] [place] Count Organism: 1.1 Antibiotic Interpretation KAL Status Urine Culture - FRMCTigecycline S F Urine Culture - [facility] Testing performed at [facility] O:ESCCOL Isolated Urine Culture - [facility] [place] Count Organism: 1.1 Antibiotic Interpretation KAL Status Urine Culture - FRMCTobramycin S F Urine Culture - [facility] Testing performed at [facility] O:ESCCOL Isolated Urine Culture - [facility] [place] Count Organism: 1.1 Antibiotic Interpretation KAL Status Urine Culture - FRMCAmpicillin/Sulbactam I F Urine Culture - [facility] Testing performed at [facility] O:ESCCOL Isolated Urine Culture - [facility] [place] Count Organism: 1.1 Antibiotic Interpretation KAL Status Urine Culture - [facility]CCefazolin S F Urine Culture - [facility] Testing performed at [facility] O:ESCCOL Isolated Urine Culture - [facility] [place] Count Organism: 1.1 Antibiotic Interpretation KAL Status Urine Culture - [facility]CCefepime S F Urine Culture - [facility] Testing performed at [facility] O:ESCCOL Isolated Urine Culture - [facility] [place] Count Organism: 1.1 Antibiotic Interpretation KAL Status Urine Culture - FR[facility]CCeftriaxone S F Urine Culture - [facility] Testing performed at [facility] O:ESCCOL Isolated Urine Culture - [facility] [place] Count Organism: 1.1 Antibiotic Interpretation KAL Status Urine Culture - FR[facility]CCefuroxime S F Urine Culture - [facility] Testing performed at [facility] O:ESCCOL Isolated Urine Culture - [facility] [place] Count Organism: 1.1 Antibiotic Interpretation KAL Status Urine Culture - FRMCPiperacillin/Tazobactam S F Urine Culture - [facility] Testing performed at [facility] O:ESCCOL Isolated Urine Culture - [facility] [place] Count Organism: 1.1 Antibiotic Interpretation KAL Status Urine Culture - FRMCTrimethoprim/Sulfa S F Urine Culture - [facility] Testing performed at [facility] O:ESCCOL Isolated Urine Culture - [facility] [place] Count Organism: 1.1 Antibiotic Interpretation KAL Status Performing Lab:see note ML - [facility] LB SEE REPORT - Remote Inpatient Coder Id information not found for OBX-specific producer arborist manager legend Reason For Referral Diagnosis 1 Unspecified cirrhosi s of liver (K74.60) Referral Organization [facility] Referring Provider First Name Shaq Referring Provider Last Name Erik Referring Provider [facility] kelley Referred Organization Gastroenterology Mariah osborn Referred Provider Blanca Mak Referred Address [address] [facility],[address],[address], Referred Provider Specialty Gastroentero logy Referral Priority Routine Diagnosis 1 Blood loss anemia (D 50.0) Referral Organization [facility] Referring Provider First Name Shaq Referring Provider Last Name gudelia Referring Provider [facility] kelley Referred Provider Jesus Emerson Referred Provider Specialty Gastroentero logy Referral Priority Routine Diagnosis 1 Iron deficiency anem ia (D50.9) Referral Organization [facility] Referring Provider First Name Shaq Referring Provider Last Name Erik Referring Provider [facility] kelley Referred Provider Soila Victor Referred Provider Specialty Hematology/O ncology Referral Priority Routine Medications Medication SIG (Take, Route, Frequency, Duration) Notes Start Date End Date Status Glimepiride 2 MG 1 tablet with breakf ast or the first main meal of the day Oral daily; Duration: 90 days ActiveMagnesium 400 MG1 capsule Orally Twice a day; Duration: 90 daysActiveBlood Glucose Meter --Use meter to monitor glucose daily DX E11.9; Duration: 365 days 11/20/2024ctiveSimvastatin 20 mgTAKE 1 TABLET DAILYActivePantoprazole Sodium 40 mg1 tablet oral q dayActiveSucralfate 1 GM1 tablet on an empty stomach Orally qid; Duration: 30 days09/27/2024ctiveCefdinir 300 MGTAKE 2 CAPSULES BY MOUTH DAILY FOR 10 DAYS Oral; Duration: 10 DaysActiveLisinopril 2.5 MG1 tablet Oral Once a day; Duration: 90 daysActiveFerrous Sulfate 324 (65 Fe) MGtake twice a day Oral twice a day; Duration: 90 daysActiveEliquis 2.5 MG1 tablet Orally Twice a day; Duration: 90 days05/27/2023ctiveOndansetron 4 MG1 tablet on the tongue and allow to dissolve Orally qid07/23/2025tiveSpironolactone 25 MG1 tablet Orally Once a day; Duration: 3 days5ActiveVenlafaxine HCl ER 75 mgTAKE 1 CAPSULE DAILYActivemetFORMIN HCl 500 MGTAKE 2 TABLETS TWICE DAILY; Duration: 90ActiveTest Strips -Use 1 strip to monitor glucose daily DX E11.9; Duration: 90 days11/20/2024ctiveFurosemide 20 MG1 tablet Orally Once a day; Duration: 30 days12/25/2024tiveLancets 33G -Use 1 lancet to poke finger daily DX E11.9; Duration: 90 days11/20/2024ctive Social History Alcohol Screen (Audit-C) Question Answer Notes Did you have a drink containing alcohol in the p ast year? No Ipporc1MweiyvwjpxgwirQltlamvvSYBML-U (Standard) Question Answer Notes Did you have a drink containing alcohol in the p ast year? No Sipwxy3AxxcvybdwdaheiJrysdscc Problems Problem Type SNOMED Code ICD Code Onset Dates Problem Status W/U Status Risk Notes Problem Anemia (081627894) Anemia, unspecified (D 64.9) ActiveconfirmedProblemHyperlipidemia (37100745)Hyperlipidemia, unspecified (E78.5)ActiveconfirmedProblemHypomagnesemia (390752015)Hypomagnesemia (E83.42) ActiveconfirmedProblemPalpitations (41598908)Palpitations (R00.2)Activeconfirmed ProblemHypertension (18780857)Hypertension (I10)ActiveconfirmedProblemCongestive heart failure (82177091)CHF (congestive heart failure) (I50.9)Activeconfirmed ProblemDyslipidemia (500914489)Dyslipidemia (E78.5)ActiveconfirmedProblemAtrial fibrillation (disorder) (87016463)Afib (I48.91)ActiveconfirmedProblemChronic kidney disease (068471398)Chronic kidney disease (N18.9)ActiveconfirmedProblem Anemia (398391595)Anemia (D64.9)ActiveconfirmedProblemEssential hypertension (17582508)Benign essential HTN (I10)ActiveconfirmedProblemSleep apnea (19267414) Sleep apnea (G47.30)ActiveconfirmedProblemAtrial fibrillation (23804922)Atrial fibrillation (I48.91)ActiveconfirmedProblemType 2 diabetes mellitus (23105665)DM type 2 (diabetes mellitus, type 2) (E11.9)ActiveconfirmedProblemDisorder of lumbar disc (751939605)Lumbar disc disease (M51.9)ActiveconfirmedProblem Cirrhotic (761186269)Cirrhosis (K74.60)ActiveconfirmedProblemAcute bronchitis (99525080)Acute bronchitis, unspecified organism (J20.9)ActiveconfirmedProblem Atrial fibrillation (77483998)Atrial fibrillation with RVR (I48.91)Active confirmedProblemIron deficiency anemia (51407126)Iron deficiency anemia (D50.9) ActiveconfirmedProblemCataract (092563986)Cataract (H26.9)ActiveconfirmedProblem Chest wall pain (589740227)Chest wall pain (R07.89)ActiveconfirmedProblemAnemia due to chronic blood loss (984505352)Blood loss anemia (D50.0)Activeconfirmed ProblemTear of left rotator cuff (67330205368062007)Rotator cuff tear, left (M75.102)ActiveconfirmedProblemHepatic encephalopathy (64946226)Hepatic encephalopathy (K72.90)ActiveconfirmedProblemFluid overload (30363910)Fluid overload (E87.70)ActiveconfirmedProblemDiverticular disease of colon (493604660) Diverticula of colon (K57.30)ActiveconfirmedProblemCervical strain (063627806) Cervical strain (S16.1XXA)ActiveconfirmedProblemPruritic disorders (215682905) Pruritic condition (L29.9)ActiveconfirmedProblemDry eye syndrome (21535884)Dry eye syndrome (H04.129)ActiveconfirmedProblemAltered mental status (925833150) Altered mental state (R41.82)ActiveconfirmedProblemGastrointestinal hemorrhage (43116685)Upper GI bleed (K92.2)ActiveconfirmedProblemBicipital tenosynovitis (98575030)Biceps tendinitis of left shoulder (M75.22)ActiveconfirmedProblem Cirrhosis - non-alcoholic (172971999)Cirrhosis of liver with ascites (K74.60) ActiveconfirmedProblemEssential hypertension (41550920)BP (high blood pressure) (I10)ActiveconfirmedProblemhypercholesterolemia (disorder) (45642625) Hypercholesteremia (E78.00)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,unspecified fdc insulin use status (E11.3293)ActiveconfirmedProblemClostridial gastroenteritis (06748862)Enterocolitis due to Clostridium difficile, not specified as recurrent (A04.72)ActiveconfirmedProblemType II diabetes mellitus without complication (615429050)Diabetes (E11.9)ActiveconfirmedProblemDiabetes mellitus (59842358)Diabetes mellitus (E11.9)ActiveconfirmedProblemMetabolic syndrome (667399765)Metabolic syndrome (E88.810)Activeconfirmed Vital Signs Temperature 98.9 degrees Fahrenheit 12/17/2024 Blood pressure wdojhamod14 mm Hg07/18/20259015Kqzvmk43 in07/18/2025lood pressure vaunzotj971 mm Hg07/18/20250230Emxgof959.8 lbs07/18/2025BMI30.79 kg/m207/18/2025 Encounters Encounter Location Date Provider Diagnosis [facility] [address] [place] [address] 08/05/2025 Shaq Hoy Chest wall pain R07 .89 [facility] [address] [place] [address] 08/07/2025 Shaq Hoy [facility] [place] [address] 08/19/2025Doug HoyChest wall pain R07.89[facility] [place] [address]/Doug [facility] [place] [address]/Doug [facility] [place] [address]/ Shaq [facility] [place] [address]/Doug HoyIron deficiency anemia D50.9[facility] [place] [address]/Doug HoyChest wall pain R07.89[facility] [place] [address]/12/2024Doug [facility] [place] [address]/07/2025Doug HoyIron deficiency anemia D50.9[facility] [place] [address]/03/2025 Shaq [facility] [place] [address] 04/02/2025Doug HoyChest wall pain R07.89[facility] [place] [address]/Doug [facility] [place] [address]/Doug [facility] [place] [address]/ Shaq [facility] [place] [address]/Doug [facility] [place] [address]/Doug [facility] [place] [address]/Doug [facility] [place] [address]/Doug HoyUpper GI bleed K92.2 and Acute kidney failure, unspecified N17.9[facility] [place] [address]/Doug [facility] [place] [address]/ [facility] [place] [address]/Doug [facility] [place] [address]/05/2025Doug HoyChronic kidney disease N18.9[facility] [place] [address]/08/2025 Shaq [facility] [place] [address]/08/2025Doug HoyUnspecified cirrhosis of liver K74.60 and Gastrointestinal hemorrhage, unspecified K92.2[facility] [address] [place] [address]/10/2025Doug [facility] [place] [address]/Doug Hoy Blood loss anemia D50.0 and Cirrhosis K74.60[facility] [place] [address]/Doug HoyAnemia D64.9 ; Hypertension I10 and Blood loss anemia D50.0[facility] [place] [address]/01/2025Doug [facility] [place] [address]/04/2025Doug [facility] [place] [address]/04/2025 Shaq [facility] [place] [address]/08/2025Doug HoyCervical strain S16.1XXAScl [facility] [place] [address]/Doug [facility] [place] [address]/03/2025 Shaq HoyChest wall pain R07.89[facility] [place] [address]/oug [facility] [place] [address]/oug [facility] [place] [address]/oug HoyMedication management Z79.899[facility] [place] [address]/12/2024Doug [facility] [place] [address]/12/2024Doug [facility] [place] [address]/oug HoyCervical strain S16.1XXA [address] [place] [address] 06/19/2025Doug HoyPruritic condition L29.9 and Atrial fibrillation I48.91[address] [place] [address]/04/2025 Shaq HoyPalpitations R00.2 ; Atrial fibrillation I48.91 ; 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, unspecified ocean transportation intermediary insulin use status E11.3293and Cervical strain S16.1XXACody [address] [place] [address]/Doug HoyPalpitations R00.2 ; Hypertension I10 ; Atrial fibrillation I48.91 and DM type 2 (diabetes mellitus, type 2) E11.9BKathryn V[place] [address] [place] [address]/02/2025 Shaq HoyChronic kidney disease N18.9 ; Hypertension I10 and Fluid overload E87.70[address] [place] [address]/05/2025Doug HoyHypertension I10 and Fluid overload E87.70[address] [place] [address]/ Shaq HoyUpper GI bleed K92.2 and [address] K74[address] [address]/Doug HoyGastroenteritis K52.9 and Cirrhosis K74.60[address] [place] [address]/Doug HoyHypertension I10 ; Atrial fibrillation I48.91 ; Blood loss anemia D50.0 and Itching L29.9 Assessments Encounter Date Diagnosis (ICD Code) Assessment Notes Treatment Notes Treatment Clinical Notes Section Notes 12/28/2024 Hypertension (ICD-10 - I10) adm itting for fluid pzguhyjq39/07/2025Fluid overload (ICD-10 - E87.70) 01/04/2025Upper GI bleed (ICD-10 - K92.2)01/04/2025irrhosis (ICD-10 - K74.60) referral to gi03/14/2025Gastroenteritis (ICD-10 - K52.9)Get plenty of rest. Stay hydrated by sucking on ice chips or taking small sips of water. You can also try drinking clear soda, clear broths or noncaffeinated sports drinks. Stop eating solid foods for a few hours to let your stomach settle. East back into eating by eating bland, viek-vc-ofiyxs foods like crackers, toast, gelatin, bananas, rice and chicken. Try to avoid foods/substances including dairy products, caffeine, alcohol, nicotine and fatty or highly seasoned foods. Medications such as ibuprofen or tylenol can make your stomach more upset, so use sparingly if at all. Also avoid xltf-dqk-tgmddrh anti-diarrheal medications because it can make it harder for your body to eliminate the virus.03/14/2025 Cirrhosis (ICD-10 - K74.60)06/19/2025Pruritic condition (ICD-10 - L29.9) 06/19/2025trial fibrillation (ICD-10 - I48.91)07/18/2025Hypertension (ICD-10 - I10)07/18/2025trial fibrillation (ICD-10 - I48.91)12/17/2024Palpitations (ICD- 10 - R00.2)12/17/2024Hypertension (ICD-10 - I10)12/25/2024hronic kidney disease (ICD-10 - N18.9)12/25/2024Hypertension (ICD-10 - I10)4Cervical strain (ICD-10 - S16.1XXA)11/26/2024Palpitations (ICD-10 - R00.2)11/26/2024trial fibrillation (ICD-10 - I48.91)still some doe1Medication management (ICD-10 - Z79.899)11/30/2024ervical strain (ICD-10 - S16.1XXA)12/26/2024hest wall pain (ICD-10 - R07.89)12/28/2024hronic kidney disease (ICD-10 - N18.9) 12/31/2024Unspecified cirrhosis of liver (ICD-10 - K74.60)12/31/2024 Gastrointestinal hemorrhage, unspecified (ICD-10 - K92.2)01/04/2025lood loss anemia (ICD-10 - D50.0)01/04/2025irrhosis (ICD-10 - K74.60)03/04/2025nemia (ICD-10 - D64.9)03/04/2025Hypertension (ICD-10 - I10)03/07/2025Upper GI bleed (ICD-10 - K92.2)03/07/2025ute kidney failure, unspecified (ICD-10 - N17.9) 04/02/2025hest wall pain (ICD-10 - R07.89)07/16/2025Iron deficiency anemia (ICD-10 - D50.9)07/18/2025hest wall pain (ICD-10 - R07.89)07/30/2025Iron deficiency anemia (ICD-10 - D50.9)08/05/2025hest wall pain (ICD-10 - R07.89) 08/19/2025hest wall pain (ICD-10 - R07.89)03/04/2025lood loss anemia (ICD-10 - D50.0)11/26/2024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,unspecified ocean transportation intermediary insulin use status (ICD-10 - E11.3293)12/25/2024Fluid overload (ICD-10 - E87.70)12/17/2024trial fibrillation (ICD-10 - I48.91)07/18/2025lood loss anemia (ICD-10 - D50.0) allergic reaction to /28/2025Itching (ICD-10 - L29.9)12/17/2024DM type 2 (diabetes mellitus, type 2) (ICD-10 - E11.9)11/26/2024ervical strain (ICD-10 - S16.1XXA) Plan Of Treatment Pending Test Test Name [...] End Date [place]IC[place] [address] [place] [address] [id number] Alma Brianelf - patient is the insured Medications Administered Medication Instructions Date of Administration Dosage Notes Dexamethasone, 4mg/mL mgDexamethasone, 4mg/mL mgKetorolac Tromethamine mgTriamcinolone 40 mg/ml0 mg Medical (General) History Medical History History ICD Code Uterine Cancer NcqkjesejxdnG40.2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,unspecified ocean transportation intermediary insulin use status E11.5027XsdinocjW62.9Dry eye bnlichpcP53.129Lumbar disc keevsyhN82.9 MlmsdxflttanuiixjpS84.65EtpongbggzjsT64Bdltfanmcsx of jvxkfE31.30Chronic kidney bsknhicJ88.9Atrial gdqmxqjdekqhW31.91Kidney tbdqiO67.0DUB (dysfunctional uterine bleeding)N93.3SswpqcH19.9Right rib xmwgbkfbY34.31XAInjury to SpleenSurgical History Surgery Date(Month/Year) EGD and Colonoscopy- [facility] 06/2025 EGD and Colonoscopy- dr Damon 11/01/2024 Herniorrhaphy, Dr. Mullins Rotator Cuff Xzstbc6821Lpebhl1475/3878Mymjrjwx5471Awjtxan and Dttfnfqd9486 Gnoodyjhbkg8081Oxovpiqs4744Cwlioraghmxxn7932hbakwn fib ablation06/13/25 Hospitalization History Reason Date(Month/Year) Anemia 06/2025 Cardiac Ablation 06/13/2025 low HGB 02/2025 GI bleed 01/15 UTI, A-fib, C-diff 11/13 A-Fib 06/12 See Above
--- OUTSIDE RECORDS SUMMARY | 2025-10-04 08:50 | XMS_ITS | Clinical Summary ---
Author Organization [facility] Address [address] [place] [address] Care Team Providers Care Pipe Smoking Machine Offbearer Name Role Phone Harry Valencia MD Primary Care Provider [phone] Carlos Renee MD Unavailable [phone] Allergies Active AllergyReactionsCriticalityNoted DateCommentsSulfa (Sulfonamide Antibiotics)BefjkWlh72/09/2019 Medications MedicationSigDispense QuantityRefillsLast FilledStart DateEnd DateStatus Eliquis 5 mg tablet Take 5 mg by mouth two times daily.05/27/2023ctive metFORMIN (Glucophage) 500 mg tablet Take 1,000 mg by mouth twice a day.Active venlafaxine XR (Effexor-XR) 75 mg 24 hr capsule Take 75 mg by mouth in the morning.05/23/2023ctive simvastatin (Zocor) 20 mg tablet Take 20 mg by mouth at bedtime.03/27/2023ctive ondansetron ODT (Zofran-ODT) 4 mg disintegrating tablet Take 4 mg by mouth every 8 (eight) hours if needed for nausea or vomiting.Active furosemide (Lasix) 20 mg tablet Indications:Paroxysmal atrial fibrillation (CMS/HCC)Take 2 tablets (40 mg) by mouth in the morning. 60 tablet /ctive magnesium oxide (Mag-Ox) 400 mg (241.3 mg magnesium) tablet Indications:Paroxysmal atrial fibrillation (CMS/HCC)Take 1 tablet (400 mg) by mouth two times daily. 60 tablet /ctive pantoprazole (ProtoNix) 40 mg EC tablet Indications:MelenaTake 1 tablet (40 mg) by mouth before breakfast and before evening meal for 60 doses. Do not crush,chew, or split. 60 tablet /ctive ferrous sulfate 324 mg (65 mg iron) EC tablet Take 1 tablet by mouth Twice daily at 6am and 6pm.07/14/2025tive glimepiride (Amaryl) 2 mg tablet Take 2 mg by mouth before breakfast.07/14/2025tive lisinopril 2.5 mg tablet Take 1 tablet by mouth in the morning.07/14/2025tive lactulose 10 gram/15 mL solution Indications:Anemia, unspecified typeTake 30 mL (20 g) by mouth three times daily. 2700 mL 1105007/30/2026ctive spironolactone (Aldactone) 50 mg tablet Take 50 mg by mouth in the morning.08/21/2025tive sucralfate (Carafate) 1 gram tablet Take 1 g by mouth before breakfast, before lunch, before evening meal, and at bedtime.09/27/2024ctive metoprolol tartrate (Lopressor) 25 mg tablet Indications:Paroxysmal atrial fibrillation (CMS/HCC)Take 1 tablet (25 mg) by mouth two times daily. 180 tablet ctive Active Problems ProblemNoted DateDiagnosed DateAltered mental zlhalf0409/25/2025nemia due to chronic blood loss09/25/20254161Scdhfqh89/05/5233Utrnrdi98/05/2025ervical strain 09/25/2025hest wall pain09/25/2025lostridial ijmoklspwwosxgx44/05/2025 Congestive heart aeocnzr8309/25/2025Fluid upvffara98/05/2025Gastrointestinal gsgcysibiy87/05/2025Hepatic ohhdiewsswtexa39/05/2025History of endometrial yxqdan6809/25/20258594Znzbttmnmimufn75/05/6011Cffpzxkpgvbhnw33/05/2025Iron deficiency liwqhj3509/25/2025Metabolic rqtmzbod00/05/2025Non-alcoholic oprhxbxnk85/05/2025 Rrsurtscb13/05/2025Portal xhxhwiavapga38/05/2025Sleep apnea09/25/2025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09/25/2025Uterine afnlzz4809/25/2025Gastric AVM07/18/2025Pruritic lwtltqovi87/21/2025Persistent atrial xrerrskzigpo28/24/2025-fib06/13/2025enign essential ydiojohcbobu14/20/2024MI 36.0-36.9,adult11/09/2024lass 3 obesity 11/09/2024hange in bowel uarjaw2411/09/2024iabetes mellitus with both eyes affected by mild nonproliferative retinopathy without macular edema, without long-term current use of olyjgdq3811/09/20245762Xydumarwdymwzk71/20/2024History of Clostridium difficile lvypukm0711/09/20242159Czmkkt38/20/2024Occult blood in stools 11/09/2024OE (dyspnea on exertion)04/19/2024Valvular heart pjtptfy5404/19/2024 Class 2 obesity due to excess calories without serious comorbidity with body mass index (BMI) of 35.0 to 35.9 in adult04/19/20241891Bjffmi58 Biceps tendinitis of left sspnyzvv91ataract11/08/2023 11/08/2023hronic kidney uddclzw63isorder of intervertebral disc of lumbar spineiverticular disease of colon11/08/2023 11/08/2023ry eye wuurqlxy433Dyslipidemia Enterocolitis due to Clostridium difficile, not specified as hvxzcutxp31/19/2023 11/08/20234835Mmnaflwevypb14ure wjmsccalncqnydkxpsll45/19/2023 11/08/2023Rotator cuff tear, lefttrial fibrillation Assessment & Plan (06/28/2023 3:16 PM EDT): -TTM5MT6-XDKe at least 4 for age, gender, hypertension, [...] hypertrophy)Mitral valve insufficiency and aortic valve insufficiency Resolved Problems ProblemNoted DateDiagnosed DateResolved DateCarcinoma of hepsfqsxnto52/20/2024 07/18/2025 Encounters DateTypeDepartmentCare FrrhMccihsdywjf09/10/2025Telephone [address] [place] [address] Anne Naylor MA 09/30/2025Orders Only [address] [address] Anne Naylor MA Paroxysmal atrial fibrillation (CMS/HCC) (Primary Dx)09/25/2025 10:20 AM EST Office Visit [address] [place] [address] Katherine Rayo CNP Persistent atrial fibrillation (CMS/HCC) (Primary Dx); S/P ablation of atrial fibrillation; Anemia, unspecified type; Mitral valve insufficiency and aortic valve insufficiency; Benign essential hypertension; Chronic heart failure with preserved ejection fraction (CMS/HCC)09/25/2025Orders Only [address] [place] [address] Cande Steele MA Abnormal EKG (Primary Dx)08/23/2025Orders Only [facility] [address] [place] [phone] Nubia Martin MD 08/21/2025bstract [address] [address] Enix, Aleena, TAX ACCOUNTING MANAGER 08/20/2025Orders Only [address] [address] Enix, Aleena, TAX ACCOUNTING MANAGER 08/08/2025 9:00 AM EDTAncillary Procedure [facility] [address] [place] [phone] Awareness of lzoqcjmopl75/15/2025bstract [address] [address] Enix, Aleena, TAX ACCOUNTING MANAGER 08/01/2025Orders Only [facility] [address] [place] [address] [place] [phone] Zuri Law MD 07/31/2025Telephone [address] [address] Payton Foster MA 07/30/2025 2:30 PM EDTFollow-Up [address] [address] Enix, Aleena, TAX ACCOUNTING MANAGER Anemia, unspecified type (Primary Dx); Abnormal results of liver function studies; Abnormal findings on diagnostic imaging of liver and biliary tract07/18/2025 1:00 PM EDTOffice Visit [facility] [address] [place] [phone] Carlos Renee MD Iron deficiency anemia due to chronic blood loss (Primary Dx); Gastric AVM; Other fatigue; H/O cancer of yfjpry3007/18/2025Telephone [facility] [address] [place] [address] Anne Naylor MA 07/15/2025Telephone [facility] [address] [place] [address] Anne Naylor MA 07/11/2025 11:20 AM EDTFollow-Up [facility] [address] [place] [address] Katherine Rayo CNP Persistent atrial fibrillation (CMS/HCC) (Primary Dx); Anemia, unspecified type; S/P ablation of atrial fibrillation; BERRY (dyspnea on exertion); Mitral valve insufficiency and aortic valve insufficiency; Benign essential hypertension; Chronic heart failure with preserved ejection fraction (CMS/HCC); Other krwawkt7607/11/2025Telephone [facility] [address] [place] [address] Meghan Bowman MA 07/07/2025Orders Only [facility] [address] [place] [address] Nubia Martin MD from Last 3 Months Immunizations ImmunizationAdministration DatesNext DueInfluenza, Ihzytlrydhg09/11/2017, 09/24/2016Influenza, injectable, MDCK, preservative free, qruxtulvznze70/12/2022 ,08/26/2020Influenza, injectable, quadrivalent, preservative free08/11/2021, 08/02/2019Influenza, seasonal, vmeqxdbeel81/14/2019Influenza, trivalent, teclekhioq21/08/2025Pneumococcal Conjugate PCV Pneumococcal Polysaccharide ZJY155401/01/20170944Lkta61/30/2022,03/12/2016 Family History Medical HistoryRelationNameCommentsHeart diseaseBrotherDiabetesFatherBreast cancerMaternal GrandmotherNo Known ProblemsMotherStomach cancerMother's Brother Uterine cancerSisterRelationNameStatusCommentsBrotherDeceasedFatherDeceased Maternal GrandmotherMotherDeceasedMother's BrotherOtherSisterAlive Social History Tobacco UseTypesPacks/DayYears UsedDateSmoking Tobacco: NeverSmokeless Tobacco: Never Tobacco Cessation:Counseling Given: Yes Alcohol UseStandard Drinks/WeekCommentsNot Currently0 (1 standard drink = 0.6 oz pure alcohol)[facility] UtilitiesAnswerDate RecordedIn the past 12 months [...] you from medical appointments or from getting medications?No06/13/2025Lack of Transportation (Non-Medical)Not on file 06/13/2025Housing Stability Vital SignAnswerDate RecordedIn the last 12 months, was there a time when you were not able to pay the mortgage or rent on time?No 06/13/2025Number of Times Moved in the Last YearNot on file06/13/2025t any time in the past 12 months, were you homeless or living in a group home (including now)? No06/13/2025Hunger Vital SignAnswerDate RecordedWithin the past 12 months, you worried that your food would run out before you got the money to buymore.Never true06/13/2025Ran Out of Food in the Last YearNot on file06/13/2025 CommentsNoSex and Gender InformationValueDate RecordedSex Assigned at Dmxaeu3706/17/2025 11:34 AM EDTLegal TqoIcjjpv25/29/2022 10:55 PM EDTGender MfsjrocpHajirp09/28/2025 11:34 AM EDTSexual OrientationChoose not to disclose 06/17/2025 11:35 AM EDT Last Filed Vital Signs Vital SignReadingTime TakenCommentsBlood Bbtubkvj308/4809/25/2025 10:26 AM EST Tnlyw555209/25/2025 10:26 AM FMGMhjjxqwoeot44.7 ??C (98 ??F)07/18/2025 1:06 PM EDT Respiratory Adrj245106/15/2025 3:06 PM EDTOxygen Asprzqcycs718%09/25/2025 10:26 AM ESTInhaled Oxygen Concentration--Npwgfg96.5 kg (193 lb)09/25/2025 10:26 AM EST Hstsvg595.6 cm (5' 6 )09/25/2025 10:26 AM ESTBody Mass Index31.15111/25/2024 10:26 AM EST Plan of Treatment DateTypeDepartmentCare Team (Latest Contact Info)Uikzrsqtris74/26/2025 1:30 PM ESTFollow-Up [facility] [address] [place] [phone] Beni Gomez MD [address] [facility] [address] [facility] [place] [address] 11/01/2025 10:15 AM ESTOffice Visit [facility] [address] [place] [address] Alex Muñoz MD [address] [facility] [place] [address] Health MaintenanceDue DateLast DoneCommentsCT Njhyrruhkcdd1956Diabetes: Hemoglobin A1C1956FIT-DNA1956FIT1956FOBT1956Medicare Annual Wellness (AWV)1955 9611Eoargnckzjkst1956Diabetes: Retinopathy Slwqwbyqj66/16/1966Diabetes: Urine Protein Nhrokisoo00/16/1975Mammogram 1996Zoster Vaccines (1 of 2)2006COVID-19 Vaccine (3 - season)/07/2021, 01/25/2021Influenza Vaccine (#1)2025 12/29/2024, 09/01/2022, 08/11/2021, Additional history existsDepression Oczbemzml61Fall Risk Ywlnjzqto865Adult Xljbttb92/, 03/12/20165132Tdlfknnfgwy88/18/887608/, 03/14/2008Colorectal Cancer Icsbzlrsx23/18/2034Pneumococcal Vaccine: 50+ Years Caoarbsxf48/08/2025, 10/31/2017HIB VaccinesAged OutNo longer eligible based on patient's age to complete this topicHPV VaccinesAged OutNo longer eligible based on patient's age to complete this topicIPV VaccinesAged OutNo longer eligible based on patient's age to complete this topicMeningococcal B VaccineAged OutNo longer eligible based on patient's age to complete this topicMeningococcal VaccineAged OutNo longer eligible based on patient's age to complete this topic Rotavirus VaccinesAged OutNo longer eligible based on patient's age to complete this topic Medical Devices ImplantedTypeAreaManufacturerDevice IdentifierShelf Expiration DateModel / Serial / LotMonitor,Cardiac,Lux,Dxii+[facility] - [id number] - [id number] Implanted:Qty: 1 on 08/06/2024 by Rogers aCtalan MD at [facility] CenterImplantable Loop RecorderLeft: Chen Ewutpkmqky78/07/2026 12 / [id number] / Procedures Procedure NamePriorityDate/TimeAssociated DiagnosisCommentsECG 12 LEAD UNIT ZZGNXRFDUCtkhven33/05/2025 10:42 AM EST Persistent atrial fibrillation (CMS/HCC) CARDIAC DEVICE CHECK CHECK - AOAZHKGplkxvr29/06/2025 9:52 AM EDT Awareness of heartbeats CARDIAC DEVICE CHECK - REMOTE - LOOP RECORDER (ILR)Xfyzujd7508/23/2025 12:00 AM EDTLIVER FIBROSIS CHRONIC VIRAL UYKEHYRSFVcogmua86/11/2025 8:40 AM EDTECG 12 LEAD UNIT RCMDURRWWEankmjk79/21/2025 11:10 AM EDT Persistent atrial fibrillation (CMS/HCC) CARDIAC DEVICE CHECK CHECK - EAHTPXXxyuqaw80/20/2025 8:16 PM EDT Awareness of heartbeats CARDIAC DEVICE CHECK - REMOTE - LOOP RECORDER (ILR)Wgpslbr7607/07/2025 12:00 AM EDTfrom Last 3 Months Results * ECG 12 lead unit performed (09/25/2025 10:42 AM EST) Only the most recent of2 resultswithin the time period is included. Specimen (Source)Anatomical Location / LateralityCollection Method / Volume Collection TimeReceived Time Narrative Authorizing ProviderResult TypeResult StatusKatherine Rayo [facility] ORDERABLES Final Result * CARDIAC DEVICE CHECK - REMOTE - LOOP RECORDER (ILR) (08/26/2025 9:52 AM EDT) Only the most recent of2 resultswithin the time period is included. Specimen (Source)Anatomical Location / LateralityCollection Method / Volume Collection TimeReceived Time Narrative Authorizing ProviderResult TypeResult StatusRogers Catalan MDCV IMPLANTABLE CARDIAC DEVICE PROCEDURESFinal ResultPerforming OrganizationAddressCity/State/ZIP Code Phone Number CPACS * Cardiac device check - Remote loop recorder (ILR) (08/23/2025 12:00 AM EDT) Only the most recent of2 resultswithin the time period is included. Anatomical RegionLateralityModalityOtherSpecimen (Source)Anatomical Location / LateralityCollection Method / VolumeCollection TimeReceived Time08/23/2025 Narrative Authorizing ProviderResult TypeResult StatusNubia Thalia Martin MDCV IMPLANTABLE CARDIAC DEVICE PROCEDURESFinal Result * Liver fibrosis chronic viral hepatitis (08/01/2025 8:40 AM EDT)Specimen (Source)Anatomical Location / LateralityCollection Method / VolumeCollection TimeReceived TimeBloodVenous blood specimen / Unknown Narrative Authorizing ProviderResult TypeResult StatusHistorical Provider ANI BLOOD ORDERABLESFinal Result from Last 3 Months Insurance Advance Directives * Full Code (Latest Code Status on File) Date ActivatedDate InactivatedComments06/13/2025 12:34 PM06/15/2025 5:48 PM Care Teams Team MemberRelationshipSpecialtyStart DateEnd Date Harry Valencia MD [address] [facility] [address] [address] PCP - General06/20/23 Ud Carlos [place] MD [address] [place] [address] Consulting PhysicianHematology and Oncology07/18/25
--- OUTSIDE RECORDS SUMMARY | 2025-10-04 08:50 | XMS_ITS | Clinical Summary ---
Author Organization [employer] [facility] Address [facility] [address] [place] [address] Care Team Providers Care Director Market Intelligence Name Role Phone Harry Valencia MD Primary Care Provider [phone] Allergies Active AllergyReactionsCriticalityNoted DateCommentsSulfa (Sulfonamide Antibiotics)05/29/2019 Medications MedicationSigDispense QuantityRefillsLast FilledStart DateEnd DateStatus glimepiride (AMARYL) 1 mg tablet Take 1 tablet (1 mg total) by mouth every morning before breakfast.Active metFORMIN (GLUCOPHAGE) 500 mg tablet Take 1 tablet (500 mg total) by mouth in the morning and 1 tablet (500 mg total) before bedtime.Active ramipriL (ALTACE) 5 mg capsule Take 1 capsule (5 mg total) by mouth in the morning.Active simvastatin (ZOCOR) 10 mg tablet Take 10 mg by mouth nightly.Active venlafaxine (EFFEXOR) 25 mg tablet Take 1 tablet (25 mg total) by mouth in the morning and 1 tablet (25 mg total) before bedtime.Active apixaban (ELIQUIS) 5 mg tablet Take 1 tablet (5 mg total) by mouth in the morning and 1 tablet (5 mg total) before bedtime.Active Encounters DateTypeDepartmentCare NldkVicggcbgtog55/09/2025Travelfrom Last 3 Months Immunizations ImmunizationAdministration DatesNext HiuFkpr9307/20/2022 Social History Tobacco UseTypesPacks/DayYears UsedDateSmoking Tobacco: NeverSmokeless Tobacco: NeverAlcohol UseStandard Drinks/WeekCommentsNot Currently0 (1 standard drink = 0.6 oz pure alcohol)ChildcareAnswerDate IckkxgssMeieppbfqErnoenc26/12/2019 EmploymentAnswerDate TjrtdbawQsuvcujnwvYuyncpi44/12/2019Purpose - LifeAnswerDate RecordedPurpose and direction in gbrnCkmdwje20/11/2021CommentsUnknownSex and Gender InformationValueDate RecordedSex Assigned at BirthNot on fileLegal TfvOcfigr49/06/2015 11:32 AM EDTGender IdentityNot on fileSexual OrientationNot on file Last Filed Vital Signs Vital SignReadingTime TakenCommentsBlood Coyanspg662/52004/25/2025 9:20 AM EDT Emftt392904/25/2025 9:20 AM TUMSwtsjwldlav12.4 ??C (97.5 ??F)04/25/2025 9:20 AM EDTRespiratory Ceuw516904/25/2025 9:20 AM EDTOxygen Inixmcamel29%04/25/2025 9:20 AM EDTInhaled Oxygen Concentration--Pkgzjg18.4 kg (197 lb)04/25/2025 7:17 AM EDT Nihfwb582.6 cm (5' 6 )04/25/2025 6:56 AM EDTBody Mass Index31.8004/25/2025 6:56 AM EDT Plan of Treatment Health MaintenanceDue DateLast DoneCommentsDepression Grsotxsyi28/16/1968Tobacco Pvbfmthim89/16/1968Adult BMI Follow Up Plan1974Zoster (Shingles) Vaccine (1 of 2)2006RSV ( or age 60+ yrs) (1 - Risk 60-74 years 1-dose series)2016Fall Risk Fpjskqixg99/16/2021OVID-19 Vaccine (3 - 2024- season)511/07/2021, 01/25/2021Influenza Hbfsjjp33/06/2025, 09/01/2022, 08/11/2021, Additional history existsAdult BMI Owbyebjpu65/05/2026 04/25/2025DTaP,Tdap and Td Vaccines (3 - Td or Tdap), 03/12/2016 Medical Devices Not on file Procedures Procedure NamePriorityDate/TimeAssociated DiagnosisCommentsFIBROTEST-ACTITEST, S Bozhjjw6407/30/2025 3:14 PM EDT Anemia, unspecified Abnormal results of liver function studies PROTIME & KQJMcphlbq59/09/2025 3:14 PM EDT Anemia, unspecified Abnormal results of liver function studies BSVLRMRDEPsjuppr98/09/2025 3:14 PM EDT Anemia, unspecified Abnormal results of liver function studies BASIC METABOLIC XRHTARgqzwac41/09/2025 3:14 PM EDT Anemia, unspecified Abnormal results of liver function studies LIVER XWGLYEfitjdd17/09/2025 3:14 PM EDT Anemia, unspecified Abnormal results of liver function studies ALPHA CPPOEVKJECZAepkicf63/09/2025 3:14 PM EDT Anemia, unspecified Abnormal results of liver function studies VITAMIN N63Rugrkgs99/09/2025 3:14 PM EDT Anemia, unspecified Abnormal results of liver function studies CBC (NO DIFF)Ywzoyjj9107/30/2025 3:14 PM EDT Anemia, unspecified Abnormal results of liver function studies TNZQVRCIAkpyyue86/09/2025 3:14 PM EDT Anemia, unspecified Abnormal results of liver function studies IRON AND QZTOZyoazcw47/09/2025 3:14 PM EDT Anemia, unspecified Abnormal results of liver function studies VITAMIN D 25 WLDQQXTXuygsjb43/09/2025 3:14 PM EDT Anemia, unspecified Abnormal results of liver function studies from Last 3 Months Results * (ABNORMAL) FibroTest-ActiTest, S (07/30/2025 3:14 PM EDT)ComponentValueRef RangeTest MethodAnalysis TimePerformed AtPathologist SignatureBILIRUBIN, TOTAL, S0.40.0 - 1.2 mg/dL07/31/2025 9:59 PM [facility] Comment: Test Performed by: [facility] [address] [place] [address] Heel Finisher: Neyda Gutierrez Ph.D.; CLIA# [id number] Test Performed by: [facility] [address] [place] [address] Heel Finisher: Neyda Gutierrez Ph.D.; CLIA# [id number] ALANINE AMINOTRANSFERATE (ALT), S67(H)7 - 45 U/L07/31/2025 9:59 PM [facility]IESALPHA-2 MACROGLOBULIN, S313(H)100 - 280 mg/dL07/31/2025 9:59 PM [facility]IESAPOLIPOPROTEIN A1, S133(L)>=140 mg/dL07/31/2025 9:59 PM [facility]OR[facility]IESGAMMA GLUTAMYLTRANSFERASE (GGT), S171(H)5 - 36 U/L07/31/2025 9:59 PM [facility]IESHAPTOGLOBIN, G13165 - 200 mg/dL07/31/2025 9:59 PM [facility] BEACHFibrotest Score0.60007/31/2025 9:59 PM [facility]OR[facility]IESFIBROTEST TZVWJA55907/31/2025 9:59 PM [facility]IESFIBROTEST INTERPRETATIONadvanced dkjynvwk97/10/2025 9:59 PM [facility]Comment: FibroTest estimates liver fibrosis FibroTest Score ?Stage ?Interpretation ??0.00-0.21 ?F0 ? no fibrosis ??0.21-0.27 ?F0-F1 ?no fibrosis ??0.27-0.31 ?F1 ? minimal fibrosis ??0.31-0.48 ?F1-F2 ?minimal fibrosis ??0.48-0.58 ?F2 ? moderate fibrosis ??0.58-0.72 ?F3 ? advanced fibrosis ??0.72-0.74 ?F3-F4 ?advanced fibrosis ??0.74-1.00 ?F4 ? severe fibrosis (Cirrhosis) ACITEST SCORE0.51007/31/2025 9:59 PM [facility]IESACITEST GRADE A1-A2007/31/2025 9:59 PM [facility]IESACTITEST INTERPRETATION minimal epmxhjjn58/10/2025 9:59 PM [facility]: ActiTest estimates necroinflammatory activity ActiTest Score ? Grade ?Interpretation ??0.00-0.17 ?A0 ? no activity ??0.17-0.29 ?A0-A1 ?no activity ??0.29-0.36 ?A1 ? minimal activity ??0.36-0.52 ?A1-A2 ?minimal activity ??0.52-0.60 ?A2 ? significant activity ??0.60-0.62 ?A2-A3 ?significant activity ??0.62-1.00 ?A3 ? severe activity FIBROTEST-ACTITEST COMMENTSEE JZCDTQUQ07/10/2025 9:59 PM [facility]: The reliability of results is dependent on [...] its performance characteristics determined by [facility] in a manner consistent with CLIA requirements. This test has not been cleared or approved by the U.S. Food and Drug Administration. BIOPREDICTIVE SERIAL [id number] 9:59 PM EDADVENTHE[facility] Specimen (Source)Anatomical Location / LateralityCollection Method / Volume Collection TimeReceived TimeBloodVenous blood / UnknownVenipuncture / Unknown 07/30/2025 3:14 PM EDT07/30/2025 3:15 PM EDT Narrative Authorizing ProviderResult TypeResult StatusAmanda D Enix HYDRAULIC MODELING ENGINEER-CNPLAB BLOOD ORDERABLESFinal ResultPerforming OrganizationAddressCity/State/ZIP CodePhone Number [facility] [address] [place] [address], * Iron and TIBC (07/30/2025 3:14 PM EDT)ComponentValueRef RangeTest Method Analysis TimePerformed AtPathologist EumzbkxlpKQZP36008 - 170 ug/dL07/30/2025 5:37 PM [facility] KCWVBHIUDXJXLMJYRAOSF377495 - 336 mg/dL 07/30/2025 5:37 PM T[facility] LABORATORYIRON SDMBXXG243275 - 425 ug/dL07/30/2025 5:37 PM [facility] LABORATORYIRON TIWEXQFEDF6025 - 50 % JZXRNBJAVB58/09/2025 5:37 PM [facility]YSpec[facility] (Source)Anatomical Location / LateralityCollection Method / VolumeCollection TimeReceived TimeBloodVenous blood / UnknownVenipuncture / Rrvgvtx8307/30/2025 3:14 PM EDT07/30/2025 3:15 PM EDT Narrative Authorizing ProviderResult TypeResult StatusAmanda D Enix HYDRAULIC MODELING ENGINEER-CNPLAB BLOOD ORDERABLESFinal ResultPerforming OrganizationAddressCity/State/ZIP CodePhone Number [facility] [address] [place] [address], * Alpha fetoprotein (07/30/2025 3:14 PM EDT)ComponentValueRef RangeTest Method Analysis TimePerformed AtPathologist SignatureALPHA FETOPROTEIN1.7<=9.9 ng/mL 07/30/2025 5:13 PM [facility]ORATORYSpecimen (Source) Anatomical Location / LateralityCollection Method / VolumeCollection Time Received TimeBloodVenous blood / UnknownVenipuncture / Vixqmxj8007/30/2025 3:14 PM EDT07/30/2025 3:15 PM EDT Narrative Authorizing ProviderResult TypeResult StatusAmanda D Enix HYDRAULIC MODELING ENGINEER-CNPLAB BLOOD ORDERABLESFinal ResultPerforming OrganizationAddressCity/State/ZIP CodePhone Number [facility] [address] [place] [address], * Vitamin D 25 hydroxy (07/30/2025 3:14 PM EDT)ComponentValueRef RangeTest MethodAnalysis TimePerformed AtPathologist SignatureVITAMIN D 25 HYD TOT34.2 30.0 - 100.0 ng/mL07/30/2025 5:37 PM [facility] Specimen (Source)Anatomical Location / LateralityCollection Method / Volume Collection TimeReceived TimeBloodVenous blood / UnknownVenipuncture / Unknown 07/30/2025 3:14 PM EDT07/30/2025 3:15 PM EDT Narrative [facility] - 07/30/2025 5:37 PM EDT Vitamin D status 25 [place] Vitamin D Deficiency <20 ng/mL Insufficiency ? 20-29 ng/mL Sufficiency ? 30-100 ng/mL Toxicity >100 ng/mL NOTE: A pediatric reference range has not been established by the seed technician of this kit. The [place] [employer] recommends a Vitamin D level of = or >20ng/mL in infants and children. Authorizing ProviderResult TypeResult StatusAmanda D Enix HYDRAULIC MODELING ENGINEER-CNPLAB BLOOD ORDERABLESFinal ResultPerforming OrganizationAddressCity/State/ZIP CodePhone Number [facility] [address] [place] [address], * Protime & INR (07/30/2025 3:14 PM EDT)ComponentValueRef RangeTest Method Analysis TimePerformed AtPathologist UbjapqsrfQDJIHWA85.49.8 - 13.2 sec 07/30/2025 4:57 PM [facility] LABORATORYINR1.00.9 - 1.2 07/30/2025 4:57 PM [facility]ORATORYSpecimen (Source) Anatomical Location / LateralityCollection Method / VolumeCollection Time Received TimeBloodVenous blood / UnknownVenipuncture / Rvebndw8907/30/2025 3:14 PM EDT07/30/2025 3:15 PM EDT Narrative Authorizing ProviderResult TypeResult StatusAmanda D Enix HYDRAULIC MODELING ENGINEER-CNPLAB BLOOD ORDERABLESFinal ResultPerforming OrganizationAddressty/State/ZIP CodePhone Number [facility] [address] [place] [address], * (ABNORMAL) CBC without diff (07/30/2025 3:14 PM EDT)ComponentValueRef Range Test MethodAnalysis TimePerformed AtPathologist SignatureWBC7.24 - 11 x10E9/L 07/30/2025 4:29 PM [facility] LABORATORYRBC Count3.34(L)3.8 - 5.2 X10E12/L07/30/2025 4:29 PM [facility] Hemoglobin9.0(L)11.7 - 15.5 g/dL07/30/2025 4:29 PM [facility] SBHDLJMMCYNkiwapdocf40.3(L)35 - 47 %07/30/2025 4:29 PM [facility] TWTMOGVQJWYMT5284 - 100 fL07/30/2025 4:29 PM [facility] HZIHGVZBJPRBV93.027 - 34 pg07/30/2025 4:29 PM [facility] OEFPHQCEKIBIPS66.9(L)32 - 36 g/dL07/30/2025 4:29 PM [facility] QJEBNVSNVVQYE64.4(H)11.5 - 15 %07/30/2025 4:29 PM [facility] LABORATORYPlatelet Udesb198340 - 450 X10E9/L07/30/2025 4:29 PM EDT [facility] LABORATORYMPV8.07 - 12 fL07/30/2025 4:29 PM [facility] LABORATORYSpecimen (Source)Anatomical Location / Laterality Collection Method / VolumeCollection TimeReceived TimeBloodVenous blood / UnknownVenipuncture / Mriqcpr6807/30/2025 3:14 PM EDT07/30/2025 3:15 PM EDT Narrative Authorizing ProviderResult TypeResult StatusAmanda D Enix HYDRAULIC MODELING ENGINEER-CNPLAB BLOOD ORDERABLESFinal ResultPerforming OrganizationAddressCity/State/ZIP CodePhone Number [facility] [address] [place] [id number], * Magnesium (07/30/2025 3:14 PM EDT)ComponentValueRef RangeTest MethodAnalysis TimePerformed AtPathologist SignatureMAGNESIUM2.21.8 - 2.6 mg/dL07/30/2025 5:37 PM [facility]ORATORYSpecimen (Source)Anatomical Location / LateralityCollection Method / VolumeCollection TimeReceived Time BloodVenous blood / UnknownVenipuncture / Ouljnwn8907/30/2025 3:14 PM EDT 07/30/2025 3:15 PM EDT Narrative Authorizing ProviderResult TypeResult StatusAmanda D Enix HYDRAULIC MODELING ENGINEER-CNPLAB BLOOD ORDERABLESFinal ResultPerforming OrganizationAddressCity/State/ZIP CodePhone Number [facility] [address] [place] [address], * (ABNORMAL) Ferritin (07/30/2025 3:14 PM EDT)ComponentValueRef RangeTest Method Analysis TimePerformed AtPathologist SignatureFERRITIN1,126(H)11 - 307 ng/mL 07/30/2025 5:37 PM [facility]YSpecimen (Source) Anatomical Location / LateralityCollection Method / VolumeCollection Time Received TimeBloodVenous blood / UnknownVenipuncture / Izqvegg7707/30/2025 3:14 PM EDT07/30/2025 3:15 PM EDT Narrative Authorizing ProviderResult TypeResult StatusAmanda D Enix HYDRAULIC MODELING ENGINEER-CNPLAB BLOOD ORDERABLESFinal ResultPerforming OrganizationAddressCity/State/ZIP CodePhone Number [facility] [address] [place] [address], * Vitamin B12 (07/30/2025 3:14 PM EDT)ComponentValueRef RangeTest MethodAnalysis TimePerformed AtPathologist SignatureVITAMIN [id number] - 914 pg/mL07/30/2025 5:37 PM [facility] LABORATORYSpecimen (Source)Anatomical Location / LateralityCollection Method / VolumeCollection TimeReceived Time BloodVenous blood / UnknownVenipuncture / Bqnthat3607/30/2025 3:14 PM EDT 07/30/2025 3:15 PM EDT Narrative Authorizing ProviderResult TypeResult StatusAmanda D Enix HYDRAULIC MODELING ENGINEER-CNPLAB BLOOD ORDERABLESFinal ResultPerforming OrganizationAddressCity/State/ZIP CodePhone Number [facility] [address] [place] [address], * (ABNORMAL) Liver panel (07/30/2025 3:14 PM EDT)ComponentValueRef RangeTest MethodAnalysis TimePerformed AtPathologist SignatureTOTAL PROTEIN6.16.0 - 8.0 g/dL07/30/2025 5:37 PM [facility] LABORATORYALBUMIN3.63.2 - 5.3 g/dL07/30/2025 5:37 PM [facility] BILIRUBIN,TOTAL0.50.3 - 1.2 mg/dL07/30/2025 5:37 PM [facility] LABORATORYALKALINE KBCYKMMUNGI53396 - 130 U/L07/30/2025 5:37 PM EDT [facility] EXGVPIJNYGTZY81(H)<=41 U/L07/30/2025 5:37 PM EDT [facility] GIUVGLJCWBTTE23(H)<=31 U/L07/30/2025 5:37 PM EDT [facility] LABORATORYBILIRUBIN,DIRECT0.1<=0.4 mg/dL07/30/2025 5:37 PM [facility] LABORATORYSpecimen (Source)Anatomical Location / LateralityCollection Method / VolumeCollection TimeReceived Time BloodVenous blood / UnknownVenipuncture / Fyukfby4207/30/2025 3:14 PM EDT 07/30/2025 3:15 PM EDT Narrative Authorizing ProviderResult TypeResult StatusAmanda D Enix HYDRAULIC MODELING ENGINEER-CNPLAB BLOOD ORDERABLESFinal ResultPerforming OrganizationAddressCity/State/ZIP CodePhone Number [facility] [address] [place] [address], * (ABNORMAL) Basic Metabolic Panel (07/30/2025 3:14 PM EDT)ComponentValueRef RangeTest MethodAnalysis TimePerformed AtPathologist ZwczjaffmCMICRZ446611 - 146 mmol/L07/30/2025 5:37 PM [facility] LABORATORYPOTASSIUM 5.7(H)3.5 - 5.0 mmol/L07/30/2025 5:37 PM [facility] YSSXGGVQALOYADOMZE712(H)98 - 109 mmol/L07/30/2025 5:37 PM [facility] LABORATORYCARBON KMQJLLN95(L)22 - 32 mmol/L07/30/2025 5:37 PM [facility] LABORATORYANION GAP95 - 15 mmol/L07/30/2025 5:37 PM EDT [facility] LABORATORYBLOOD UREA NHXTZLVF83(H)5 - 27 mg/dL 07/30/2025 5:37 PM [facility] LABORATORYCREATININE1.46(H)0.40 - 1.00 mg/dL07/30/2025 5:37 PM [facility]ORATORYComment: METHOD TRACEABLE TO IDMS IVWOYFDPISJQNTF955(H)65 - 99 mg/dL07/30/2025 5:37 PM [facility] LABORATORYCALCIUM8.0(L)8.5 - 10.5 mg/dL07/30/2025 5:37 PM [facility] LABORATORYEGFR Non-Race Kxqnkxkno51(L)>=60 ml/min/1.73sq.m007/30/2025 5:37 PM [facility] Comment: Reported eGFR is based on the CKD-EPI 2020 equation that does not use a race coefficient. Specimen (Source)Anatomical Location / LateralityCollection Method / Volume Collection TimeReceived TimeBloodVenous blood / UnknownVenipuncture / Unknown 07/30/2025 3:14 PM EDT07/30/2025 3:15 PM EDT Narrative Authorizing ProviderResult TypeResult StatusAmanda D Enix HYDRAULIC MODELING ENGINEER-CNPLAB BLOOD ORDERABLESFinal ResultPerforming OrganizationAddressCity/State/ZIP CodePhone Number [facility] [address] [place] [address], [place] [phone] from Last [address] [place] [address] Care Teams Team MemberRelationshipSpecialtyStart Date Harry Valencia MD PCP - GeneralFamily Medicine05/29/19
--- OUTSIDE RECORDS SUMMARY | 2025-10-04 08:50 | XMS_ITS | Clinical Summary ---
Author Organization [facility] Address [address] [place] [address] Care Team Providers Care Garment Tag Stringer Name Role Phone Harry Valencia MD Primary Care Provider [phone] Social History Tobacco UseTypesPacks/DayYears UsedDateSmoking Tobacco: Never Assessed CommentsUnknownSex and Gender InformationValueDate RecordedSex Assigned at Not on fileLegal PysOvvnuh53/15/2023 7:31 PM EDTGender IdentityNot on fileSexual OrientationNot on file Plan of Treatment Not on file Insurance Care Teams Team MemberRelationshipSpecialtyStart DateEnd Harry Valencia MD [address] [place] [address] PCP - GeneralFamily Medicine04/05/25
--- OUTSIDE RECORDS SUMMARY | 2025-10-04 08:50 | XMS_ITS | Encounter Summary ---
Author Organization [facility] Address [address] [place] [address] Care Team Providers Care Peoplesoft Administrator Name Role Phone Harry Valencia MD Primary Care Provider [phone] Carlos Renee MD Unavailable [phone] Encounter Details DateTypeDepartmentCare Team (Latest Contact Info)Jfpdxbpvggx89/10/2025Telephone [facility] [place] [address] [place] [address] Anne Naylor MA Social History Tobacco UseTypesPacks/DayYears UsedDateSmoking Tobacco: NeverSmokeless Tobacco: NeverAlcohol UseStandard Drinks/WeekCommentsNot Currently0 (1 standard drink = 0.6 oz pure alcohol)[facility] UtilitiesAnswerDate RecordedIn the past 12 months has the [employer], gas, oil, or water [employer] threatened to shut off services in your [...] were you homeless or living in a usp (including now)? No06/13/2025Hunger Vital SignAnswerDate RecordedWithin the past 12 months, you worried that your food would run out before you got the money to buymore.Never true06/13/2025Ran Out of Food in the Last YearNot on file06/13/2025 CommentsNoSex and Gender InformationValueDate RecordedSex Assigned at Skyzte2906/17/2025 11:34 AM EDTLegal LmjDvcarr53/29/2022 10:55 PM EDTGender OmkdhwkvRfjlkp91/28/2025 11:34 AM EDTSexual OrientationChoose not to disclose 06/17/2025 11:35 AM EDTdocumented as of this encounter Miscellaneous Notes * Telephone Encounter - Katherine Rayo CNP - 10/02/2025 8:18 AM EST She was telling me that she has having palpitations. If she feels like her palpitations are controlled, then we can hold off. Thanks * Telephone Encounter - Anne Naylor MA - 09/30/2025 11:22 AM EST Per Alessandra Rayo CNP - start patient on metoprolol tartrate 25mg bid. LM for patient making her aware. She called back and questions why she needs this. Says she hasn't had problems s/p ablation. I explained to her that with afib it's possible to have higher heart rates. Says HR has been in the 60's. She says she was taken off metoprolol not long ago and wonders why it's being restarted now. What can I tell her to make it make sense? Lol Thanks! documented in this encounter Plan of Treatment DateTypeDepartmentCare Team (Latest Contact Info)Vsxmbogmswx79/26/2025 1:30 PM ESTFollow-Up [facility] [address] [place] [address] Beni Gomez MD [address] [facility] 2 [facility] [place] [address] 11/01/2025 10:15 AM ESTOffice Visit [facility] at [facility] [address] [place] [address] Alex Muñoz MD [address] [facility] [place] [phone] documented as of this encounter Visit Diagnoses Not on filedocumented in this encounter Care Teams Team MemberRelationshipSpecialtyStart DateEnd Date Harry Valencia MD [address] [facility] [address] [address] PCP - General06/20/23 Ud Carlos Orlando MD [address] [place] [address] Consulting PhysicianHematology and Oncology07/18/25documented as of this encounter
--- OUTSIDE RECORDS SUMMARY | 2025-10-04 08:50 | XMS_ITS | Encounter Summary ---
Author Organization [facility] Address [address] [place] [address] Care Team Providers Care Sheet Metal Apprentice Name Role Phone Harry Valencia MD Primary Care Provider [phone] Carlos Renee MD Unavailable Encounter Details DateTypeDepartmentCare Team (Latest Contact Info)Esssngpzlrq83/10/2025Orders Only [facility] [place] [address] [place] [address] Anne Naylor MA Paroxysmal atrial fibrillation (CMS/HCC) (Primary Dx) Social History Tobacco UseTypesPacks/DayYears UsedDateSmoking Tobacco: NeverSmokeless Tobacco: NeverAlcohol UseStandard Drinks/WeekCommentsNot Currently0 (1 standard drink = 0.6 oz pure alcohol)[facility] UtilitiesAnswerDate RecordedIn the past 12 months has the [employer], gas, oil, or water [employer] threatened to shut off services in your [...] were you homeless or living in a correction (including now)? No06/13/2025Hunger Vital SignAnswerDate RecordedWithin the past 12 months, you worried that your food would run out before you got the money to buymore.Never true06/13/2025Ran Out of Food in the Last YearNot on file06/13/2025 CommentsNoSex and Gender InformationValueDate RecordedSex Assigned at Mfflbq0006/17/2025 11:34 AM EDTLegal RxgIbkqhr25/29/2022 10:55 PM EDTGender TywjowzvPovckz93/28/2025 11:34 AM EDTSexual OrientationChoose not to disclose 06/17/2025 11:35 AM EDTdocumented as of this encounter Plan of Treatment DateTypeDepartmentCare Team (Latest Contact Info)Uqniemcxevh54/26/2025 1:30 PM ESTFollow-[facility] [address] [place] [phone] Beni Gomez MD [address] [facility] [address] [facility] [place] [phone] 11/01/2025 10:15 AM ESTOffice Visit [facility] Heart at [facility] [address] [place] [phone] Alex Muñoz MD [address] [facility] [address] [place] [place] [phone] documented as of this encounter Visit Diagnoses Diagnosis Paroxysmal atrial fibrillation (CMS/HCC)- Primary Atrial fibrillation documented in this encounter Care Teams Team MemberRelationshipSpecialtyStart DateEnd Date Harry Valencia MD [address] [facility] [address] [address] PCP - General06/20/23 Ud Carlos Orlando MD [address] [place] [address] Consulting PhysicianHematology and Oncology07/18/25documented as of this encounter
--- OUTSIDE RECORDS SUMMARY | 2025-10-04 08:50 | XMS_ITS | Encounter Summary ---
Author Organization [facility] Address [address] [place] [address] Care Team Providers Care Retirement Administrator Name Role Phone Harry Valencia MD Primary Care Provider [phone] Ud Carlos Orlando MD Unavailable [phone] Reason for Referral * Imaging (Routine) - Pending ReviewSpecialtyDiagnoses / ProceduresReferred By ContactReferred To ContactCardiology Diagnoses Abnormal EKG Procedures Transthoracic echo (TTE) complete Katherine Rayo CNP [address] [place] [address] Phone: tel: fax: Referral IDStatusReasonStart DateExpiration DateVisits RequestedVisits [id number] Review Perform Procedure / Encounter Details DateTypeDepartmentCare Team (Latest Contact Info)Xowyinxzydq15/05/2025Orders Only [facility] [place] [address] [place] [address] Cande Steele MA Abnormal EKG (Primary Dx) Social History Tobacco UseTypesPacks/DayYears UsedDateSmoking Tobacco: NeverSmokeless Tobacco: NeverAlcohol UseStandard Drinks/WeekCommentsNot Currently0 (1 standard drink = 0.6 oz pure alcohol)[facility] UtilitiesAnswerDate RecordedIn the past 12 months has [...] CommentsNoSex and Gender InformationValueDate RecordedSex Assigned at Zpgtho9906/17/2025 11:34 AM EDTLegal MeeFszrvz27/29/2022 10:55 PM EDTGender YbrdiggoEtcvdg90/28/2025 11:34 AM EDTSexual OrientationChoose not to disclose 06/17/2025 11:35 AM EDTdocumented as of this encounter Functional Status * BPAnswerDate of CcfgekoormWdqvpz467/4809/25/2025 10:26 AM Meghan Johnson MA * PulseAnswerDate of LlppcwscijFxankb4973/05/2025 10:26 AM Meghan Johnson MA * Patient PositionAnswerDate of QrmiketbscUtfdcpNpwascv17/05/2025 10:26 AM Meghan Pacheco MA * BPAnswerDate of OjotbxjsokOrxbno095/4809/25/2025 10:26 AM Meghan Johnson MA * PulseAnswerDate of ThtixevirySffjkx7486/05/2025 10:26 AM Meghan Johnson MA * EzW2WsnvdhYrge of XltxybfqusSosxkn21782 10:26 AM Meghan Johnson MA * BP LocationAnswerDate of AssessmentAuthorRight arm09/25/2025 10:26 AM Meghan Pacheco MA * Patient PositionAnswerDate of RewmkemsyqJtqrfwKzifuhj34/05/2025 10:26 AM Meghan Pacheco MA documented as of this encounter Plan of Treatment DateTypeDepartmentCare Team (Latest Contact Info)Fthndlqjtgc95/26/2025 1:[address] [address] [place] [phone] Beni Gomez MD [address] [facility] [address] [facility] [place] [phone] 11/01/2025 10:15 AM ESTOffice Visit [facility] at [facility] [address] [place] [address] Alex Muñoz MD [address] [facility] [place] [address] NameTypePriorityAssociated DiagnosesOrder ScheduleTransthoracic echo (TTE) completeEchocardiographyRoutine Abnormal EKG Expected: 09/25/2025 (Approximate), Expires: 09/25/2027documented as of this encounter Visit Diagnoses Diagnosis Abnormal EKG- Primary Nonspecific abnormal electrocardiogram (ECG) (EKG) documented in this encounter Care Teams Team MemberRelationshipSpecialtyStart DateEnd Harry Valencia MD [address] [place] [address] PCP - General06/20/23 Ud Carlos Orlando MD [address] [place] [address] Consulting PhysicianHematology and Oncology07/18/25documented as of this encounter
--- NOTE | 2025-10-04 09:00 | CA_ITS ---
Patient Name: CONNIE WISE MR#: [id number] : 1955 Exam Date: 10/04/2025 Ordering Doctor: JANA AGUIAR PULPER ECHOCARDIOGRAM REPORT PROCEDURE: CA ECHO DOPPLER COMPLETE INDICATIONS: Atrial fibrillation- ablation, hypertension, diabetes COMPARISON: None. DESCRIPTION: COMPLETE ECHOCARDIOGRAM Real-time transthoracic echocardiography with 2D, M-mode, spectral and color flow Doppler performed. QUALITY: LEFT VENTRICLE: Normal chamber size. Proximal septal hypertrophy (sigmoid septum). Calculated left ventricular ejection fraction is 67%. LV EF: Normal left ventricular ejection fraction, (>55%). DIASTOLIC: Grade II diastolic dysfunction. ATRIAL SEPTUM: Visually appears intact. LEFT ATRIUM: Severe dilatation. RIGHT ATRIUM: Mild dilatation. RIGHT VENTRICLE: Normal chamber size. Normal right ventricular systolic function. TRICUSPID VALVE: Normal mobility and thickness. No stenosis with mild regurgitation. Doppler studies reveal moderately (45-60) elevated right sided pressures.RVSP 54 mmHg MITRAL VALVE: Normal mobility and thickness. No evidence of mitral valve stenosis. Mild mitral annular calcification. Mild to moderate mitral regurgitation. AORTIC VALVE: Normal trileaflet appearance. No visible sclerosis. Normal leaflet mobility. No evidence of aortic valve stenosis. Mild aortic regurgitation. AORTIC ROOT: Normal diameter and appearance. Ascending aorta is normal in size. PULMONIC VALVE: Normal thickness and mobility. No stenosis. No regurgitation. PERICARDIUM: No evidence of pericardial effusion. IVC: Collapes with inspirations. IVC is normal in size. PLEURA: CONCLUSION: Normal left ventricular systolic function, sigmoidal septum is noted Normal left ventricular systolic function without wall motion abnormalities, ejection fraction 67% Grade 2 left ventricular diastolic dysfunction Normal right ventricular size and systolic function Moderate pulmonary hypertension, RVSP 54 mmHg Mild to moderate mitral regurgitation Mild aortic insufficiency Mild tricuspid regurgitation Severely dilated left atrium Mildly dilated right atrium Adult Echocardiography Procedure Report Left Ventricle LVEDD (3.7 - 5.6 cm): 4.22 cm LVESD (2.2 - 4.0 cm): 2.90 cm LVIVS thickness (0.6 - 1.2 cm): 1.55 cm LVPW thickness (0.5 - 1.0 cm): 0.95 cm e': 0.11 m/s E - e': 10.01 LVOT Max Gradient: 2.75 mm[Hg] LVOT Area (cm2): 0.83 m/s Peak Velocity (LVOT): 0.83 m/s Mean Velocity (LVOT): 0.52 m/s LVOT Diameter 2.48 cm Left Ventricular Ejection Fraction: 66.81 % Left Atrium LA Volume Index (2D A2C): 50.51 ml/m2 Left Atrium Systolic Dimension: 4.42 cm Mitral Valve MV E to A Ratio: 1.83 MV Max Gradient: MV Mean Gradient: Mitral Valve A-Wave Peak Velocity: 0.63 m/s Mitral Valve E-Wave Peak Velocity: 1.14 m/s Cardiovascular Orifice Area: Right Ventricle RV Internal Diastolic Dimension: Aorta AO Root Diam: 3.69 cm Ascending Ao Diam: 3.03 cm Aortic Valve AoV Area (Peak Darryl): 3.37 cm2, 3.37 cm2 AoV Area (VTI): 3.58 cm2, 3.58 cm2 Deceleration Waller: 2.06 m/s2 Pressure Half-Time: 343.29 ms Peak Velocity(Antegrade Flow): 1.19 m/s Peak Gradient(Antegrade Flow): 5.62 mm[Hg] Mean Velocity(Antegrade Flow): 0.79 m/s Mean Gradient(Antegrade Flow): 2.97 mm[Hg] Velocity Time Integral: 28.46 cm Tricuspid Valve Peak Velocity (Regurgitant Flow): 3.55 m/s Peak Velocity: Pulmonic Valve Mean Gradient: 2.22 mm[Hg] Mean Velocity: 0.70 m/s Peak Velocity: 1.08 m/s Peak Gradient: 4.63 mm[Hg] Right Atrium Right Atrium Systolic Pressure: 61.70 ml, 61.70 ml Dictated by: Kassy Khalil MD on 10/06/2025 at 16:50 Approved by: Kassy Khalil MD on 10/06/2025 at 17:00
== END 2025-10-04 08:48 | disposition home or self-care (01) ==
LOC: CARD 08:47
PROVIDERS: PCP Family Medicine; Visit Provider Nurse Practitioner Family
DX: R94.31 Abnormal electrocardiogram [ECG] [EKG] (principal)
CPT/HCPCS: 93306